=== PATIENT | female | born 1945 | race Caucasian/White ===

== ENCOUNTER 2020-04-21 10:38 | Outpatient (REF) | payer MEDICARE, SELFPAY ==
[2020-04-21 11:01] LABS: Hematocrit 31.8 % (37-47); Hemoglobin 9.8 g/dl (12.0-16.0); Mean Corpuscular HGB Conc 30.8 g/dl (31.0-35.0); Mean Corpuscular Hemoglobin 30.7 pg (27.0-33.0); Mean Corpuscular Volume 99.7 fL (80-98); Mean Platelet Volume 12.9 fL (9.4-12.3); Platelet Count 144 X10*3/uL (160-400); Red Blood Count 3.19 X10*6/uL (4.20-5.50); Red Cell Distribution Width 17.2 % (11.0-16.0); White Blood Count 6.5 X10*3/uL (4.8-10.8)
[2020-04-21 11:42] LABS: Atypical Lymph Absolute Manual 0.1 x10*3/uL; Atypical Lymphs Percent Manual 1 % (0-6); Band Neutrophils Percent 14 % (3-5); Lymphocytes Absolute Manual 0.9 X10*3/uL (0.6-4.8); Lymphocytes Percent Manual 14 % (20-40); Monocytes Absolute Manual 0.4 X10*3/uL (0.0-1.2); Monocytes Percent Manual 6 % (2-11); Neutrophils Absolute Manual 5.1 X10*3/uL (2.2-7.9); Neutrophils Percent Manual 65 % (45-73)
[2020-04-21 11:46] LABS: Basophilic Stippling 1+; Hypochromasia 1+; RBC Morphology NOTED
[2020-04-21 11:47] LABS: Platelet Estimate SLIGHTLY DECREASED (NORMAL); Platelet Morphology Comment NORMAL
[2020-04-21 11:57] LABS: Anion Gap 11 (12-20); Blood Urea Nitrogen 20 mg/dL (9-16); Calcium 8.6 mg/dL (8.4-10.2); Carbon Dioxide 28 mmol/L (22-29); Chloride 106 mmol/L (96-108); Estimated Glomerular Filt Rate 48; Glucose Random 71 mg/dL (60-115); Potassium 3.8 mmol/l (3.3-5.1); Sodium 141 mmol/L (135-145)
== END 2020-04-21 10:39 | disposition home or self-care (01) ==
LOC: HO.HVNA 10:38
PROVIDERS: Visit Provider Internal Medicine Medical Oncology
DX: C90.00 Multiple myeloma not having achieved remission (principal)
CPT/HCPCS: 36415; 80048; 85007; 85025; 85027

== ENCOUNTER 2020-04-28 10:43 | Outpatient (REF) | payer MEDICARE, SELFPAY ==
[2020-04-28 10:58] LABS: Hematocrit 28.7 % (37-47); Hemoglobin 8.9 g/dl (12.0-16.0); Red Blood Count 2.87 X10*6/uL (4.20-5.50); Red Cell Distribution Width 16.9 % (11.0-16.0)
[2020-04-28 11:01] LABS: PLT ABN DIST 1
[2020-04-28 11:24] LABS: Band Neutrophils Percent 15 % (3-5); Lymphocytes Percent Manual 13 % (20-40); Monocytes Percent Manual 4 % (2-11); Neutrophils Percent Manual 68 % (45-73)
[2020-04-28 11:25] LABS: Macrocytosis 2+; RBC Morphology NOTED
[2020-04-28 11:26] LABS: Platelet Estimate DECREASED (NORMAL); Platelet Morphology Comment NORMAL
[2020-04-28 11:27] LABS: Lymphocytes Absolute Manual 1.1 X10*3/uL (0.6-4.8); Mean Platelet Volume 13.1 fL (9.4-12.3); Monocytes Absolute Manual 0.3 X10*3/uL (0.0-1.2); Neutrophils Absolute Manual 6.7 X10*3/uL (2.2-7.9); Platelet Count 107 X10*3/uL (160-400); White Blood Count 8.1 X10*3/uL (4.8-10.8)
[2020-04-29 08:55] LABS: Alanine Aminotransferase 8 U/L (0-31); Albumin Level 3.3 g/dL (3.5-5.0); Alkaline Phosphatase 106 U/L (39-117); Anion Gap 10 (12-20); Aspartate Amino Transferase 10 U/L (5-31); Bilirubin Total 0.2 mg/dL (0.0-1.0); Blood Urea Nitrogen 18 mg/dL (9-16); Carbon Dioxide 28 mmol/L (22-29); Chloride 105 mmol/L (96-108); Estimated Glomerular Filt Rate 53; Glucose Random 87 mg/dL (60-115); Potassium 4.1 mmol/l (3.3-5.1); Sodium 139 mmol/L (135-145); Total Protein 6.1 g/dL (6.5-8.0)
[2020-04-29 08:59] LABS: Calcium 8.1 mg/dL (8.4-10.2)
== END 2020-04-28 10:44 | disposition home or self-care (01) ==
LOC: HO.HVNA 10:43
PROVIDERS: Visit Provider Internal Medicine Medical Oncology
DX: C90.00 Multiple myeloma not having achieved remission (principal)
CPT/HCPCS: 36415; 80053; 83880; 85007; 85025; 85027

== ENCOUNTER 2020-05-05 12:28 | Outpatient (REF) | payer MEDICARE, SELFPAY ==
[2020-05-05 12:41] LABS: MANUAL DIFF FLAG NO
[2020-05-05 12:57] LABS: Basophils Percent Auto 0.4 % (0-2); Eosinophils Absolute Auto 0.3 X10*3/uL (0.0-0.4); Eosinophils Percent Auto 3.2 % (0-4); Hematocrit 29.3 % (37-47); Hemoglobin 9.2 g/dl (12.0-16.0); Imm Gran Abs Auto 0.12 X10*3/uL (0.00-0.03); Imm Gran Pct Auto 1.3 % (0.0-0.4); Lymphocytes Percent Auto 10.6 % (20-40); Mean Corpuscular HGB Conc 31.4 g/dl (31.0-35.0); Mean Corpuscular Hemoglobin 31.3 pg (27.0-33.0); Mean Corpuscular Volume 99.7 fL (80-98); Mean Platelet Volume 12.5 fL (9.4-12.3); Monocytes Absolute Auto 0.9 X10*3/uL (0.1-1.2); Neutrophils Percent Auto 74.5 % (45-73); Platelet Count 144 X10*3/uL (160-400); Red Blood Count 2.94 X10*6/uL (4.20-5.50); Red Cell Distribution Width 16.8 % (11.0-16.0); White Blood Count 9.3 X10*3/uL (4.8-10.8)
[2020-05-05 13:49] LABS: Alanine Aminotransferase 7 U/L (0-31); Albumin Level 3.7 g/dL (3.5-5.0); Alkaline Phosphatase 107 U/L (39-117); Anion Gap 13 (12-20); Aspartate Amino Transferase 10 U/L (5-31); Bilirubin Total 0.3 mg/dL (0.0-1.0); Blood Urea Nitrogen 22 mg/dL (9-16); Calcium 8.7 mg/dL (8.4-10.2); Carbon Dioxide 27 mmol/L (22-29); Chloride 105 mmol/L (96-108); Estimated Glomerular Filt Rate 43; Glucose Random 75 mg/dL (60-115); Potassium 4.1 mmol/l (3.3-5.1); Sodium 141 mmol/L (135-145); Total Protein 6.5 g/dL (6.5-8.0)
== END 2020-05-05 12:29 | disposition home or self-care (01) ==
LOC: HO.HVNA 12:28
PROVIDERS: Visit Provider Internal Medicine Medical Oncology
DX: C90.00 Multiple myeloma not having achieved remission (principal)
CPT/HCPCS: 80053; 85025

== ENCOUNTER 2020-05-12 11:43 | Outpatient (REF) | payer MEDICARE, SELFPAY ==
[2020-05-12 11:54] LABS: Hematocrit 28.7 % (37-47); Mean Corpuscular HGB Conc 31.4 g/dl (31.0-35.0); Mean Corpuscular Hemoglobin 31.7 pg (27.0-33.0); Mean Corpuscular Volume 101.1 fL (80-98); Mean Platelet Volume 11.8 fL (9.4-12.3); Platelet Count 163 X10*3/uL (160-400); Red Blood Count 2.84 X10*6/uL (4.20-5.50); Red Cell Distribution Width 16.5 % (11.0-16.0); White Blood Count 15.3 X10*3/uL (4.8-10.8)
[2020-05-12 12:11] LABS: Band Neutrophils Percent 2 % (3-5); Basophils Abs Manual 0.2 X10*3/uL (0.0-0.3); Basophils Percent Manual 1 % (0-1); Lymphocytes Absolute Manual 0.9 X10*3/uL (0.6-4.8); Lymphocytes Percent Manual 6 % (20-40); Metamyelocytes Absolute 0.3 X10*3/uL; Metamyelocytes Percent 2 %; Monocytes Absolute Manual 0.5 X10*3/uL (0.0-1.2); Monocytes Percent Manual 3 % (2-11); Neutrophils Absolute Manual 13.5 X10*3/uL (2.2-7.9); Neutrophils Percent Manual 86 % (45-73)
[2020-05-12 12:12] LABS: Hypochromasia 3+; Macrocytosis 3+; RBC Morphology NOTED
[2020-05-12 12:13] LABS: Basophilic Stippling 1+; Polychromasia 1+; Stomatocytes 2+
[2020-05-12 12:14] LABS: Microcytosis 1+; Platelet Estimate NORMAL (NORMAL); Platelet Morphology Comment NORMAL; Tear Drop Cells 1+
[2020-05-12 12:22] LABS: Alanine Aminotransferase 7 U/L (0-31); Albumin Level 3.6 g/dL (3.5-5.0); Alkaline Phosphatase 117 U/L (39-117); Anion Gap 10 (12-20); Aspartate Amino Transferase 11 U/L (5-31); Bilirubin Total 0.5 mg/dL (0.0-1.0); Blood Urea Nitrogen 17 mg/dL (9-16); Calcium 8.9 mg/dL (8.4-10.2); Carbon Dioxide 30 mmol/L (22-29); Chloride 104 mmol/L (96-108); Estimated Glomerular Filt Rate 45; Glucose Random 85 mg/dL (60-115); Potassium 4.2 mmol/l (3.3-5.1); Sodium 140 mmol/L (135-145); Total Protein 6.4 g/dL (6.5-8.0)
== END 2020-05-12 11:44 | disposition home or self-care (01) ==
LOC: HO.HVNA 11:43
PROVIDERS: Visit Provider Internal Medicine Medical Oncology
DX: C90.00 Multiple myeloma not having achieved remission (principal)
CPT/HCPCS: 36415; 80053; 85007; 85027

== ENCOUNTER 2020-05-19 11:49 | Outpatient (REF) | payer MEDICARE, SELFPAY ==
[2020-05-19 12:00] LABS: Eosinophils Absolute Auto 0.2 X10*3/uL (0.0-0.4); MANUAL DIFF FLAG SCAN; Neutrophils Absolute Auto 0.4 X10*3/uL (2.0-8.3); SCAN SMEAR FLAG 1
[2020-05-19 12:01] LABS: Basophils Percent Auto 0.6 % (0-2); Eosinophils Percent Auto 11.7 % (0-4); Hematocrit 31.2 % (37-47); Hemoglobin 9.6 g/dl (12.0-16.0); Imm Gran Abs Auto 0.01 X10*3/uL (0.00-0.03); Imm Gran Pct Auto 0.6 % (0.0-0.4); Lymphocytes Absolute Auto 0.7 X10*3/uL (1.2-4.9); Lymphocytes Percent Auto 43.8 % (20-40); Mean Corpuscular HGB Conc 30.8 g/dl (31.0-35.0); Mean Corpuscular Hemoglobin 31.1 pg (27.0-33.0); Monocytes Absolute Auto 0.3 X10*3/uL (0.1-1.2); Neutrophils Percent Auto 27.3 % (45-73); Platelet Count 101 X10*3/uL (160-400); Red Blood Count 3.09 X10*6/uL (4.20-5.50); Red Cell Distribution Width 15.9 % (11.0-16.0)
[2020-05-19 12:18] LABS: PLT ABN DIST 1
[2020-05-19 12:22] LABS: Alanine Aminotransferase 7 U/L (0-31); Albumin Level 3.7 g/dL (3.5-5.0); Alkaline Phosphatase 106 U/L (39-117); Anion Gap 11 (12-20); Aspartate Amino Transferase 12 U/L (5-31); Bilirubin Total 0.5 mg/dL (0.0-1.0); Blood Urea Nitrogen 23 mg/dL (9-16); Calcium 8.6 mg/dL (8.4-10.2); Carbon Dioxide 27 mmol/L (22-29); Chloride 106 mmol/L (96-108); Estimated Glomerular Filt Rate 43; Glucose Random 70 mg/dL (60-115); Potassium 4.3 mmol/l (3.3-5.1); Sodium 140 mmol/L (135-145); Total Protein 6.6 g/dL (6.5-8.0)
[2020-05-19 12:24] LABS: White Blood Count 1.6 X10*3/uL (4.8-10.8)
[2020-05-19 12:30] LABS: SLIDE REVIEW VERIFIED
== END 2020-05-19 11:50 | disposition home or self-care (01) ==
LOC: HO.HVNA 11:49
PROVIDERS: Visit Provider Internal Medicine Medical Oncology
DX: C90.00 Multiple myeloma not having achieved remission (principal)
CPT/HCPCS: 36415; 80053; 85025

== ENCOUNTER 2020-05-26 12:41 | Outpatient (REF) | payer MEDICARE, SELFPAY ==
[2020-05-26 12:56] LABS: Basophils Percent Auto 0.9 % (0-2); Eosinophils Absolute Auto 0.6 X10*3/uL (0.0-0.4); Eosinophils Percent Auto 12.5 % (0-4); Hematocrit 29.2 % (37-47); Hemoglobin 9.2 g/dl (12.0-16.0); Imm Gran Abs Auto 0.05 X10*3/uL (0.00-0.03); Imm Gran Pct Auto 1.1 % (0.0-0.4); Lymphocytes Absolute Auto 0.6 X10*3/uL (1.2-4.9); Lymphocytes Percent Auto 14.3 % (20-40); MANUAL DIFF FLAG SCAN; Mean Corpuscular HGB Conc 31.5 g/dl (31.0-35.0); Mean Corpuscular Hemoglobin 31.8 pg (27.0-33.0); Mean Platelet Volume 12.8 fL (9.4-12.3); Monocytes Absolute Auto 0.6 X10*3/uL (0.1-1.2); Monocytes Percent Auto 13.6 % (2-11); Neutrophils Absolute Auto 2.6 X10*3/uL (2.0-8.3); Neutrophils Percent Auto 57.6 % (45-73); Platelet Count 125 X10*3/uL (160-400); Red Blood Count 2.89 X10*6/uL (4.20-5.50); Red Cell Distribution Width 15.5 % (11.0-16.0); SCAN SMEAR FLAG 1; White Blood Count 4.5 X10*3/uL (4.8-10.8)
[2020-05-26 13:40] LABS: Alanine Aminotransferase 7 U/L (0-31); Albumin Level 3.5 g/dL (3.5-5.0); Alkaline Phosphatase 98 U/L (39-117); Anion Gap 11 (12-20); Aspartate Amino Transferase 11 U/L (5-31); Bilirubin Total 0.4 mg/dL (0.0-1.0); Blood Urea Nitrogen 14 mg/dL (9-16); Calcium 8.2 mg/dL (8.4-10.2); Carbon Dioxide 25 mmol/L (22-29); Chloride 106 mmol/L (96-108); Estimated Glomerular Filt Rate 50; Glucose Random 93 mg/dL (60-115); Potassium 3.8 mmol/l (3.3-5.1); Sodium 138 mmol/L (135-145); Total Protein 6.1 g/dL (6.5-8.0)
[2020-05-26 14:32] LABS: SLIDE REVIEW VERIFIED
[2020-05-31 19:11] LABS: Clozapine (Clozaril) 141 mcg/L; Norclozapine 108 mcg/L (25-400)
== END 2020-05-26 12:42 | disposition home or self-care (01) ==
LOC: HO.HVNA 12:41
PROVIDERS: Visit Provider Internal Medicine Medical Oncology
DX: C90.00 Multiple myeloma not having achieved remission (principal)
CPT/HCPCS: 36415; 80053; 80159; 85025

== ENCOUNTER 2020-06-02 10:49 | Outpatient (REF) | payer MEDICARE, SELFPAY ==
[2020-06-02 10:54] LABS: MANUAL DIFF FLAG NO
[2020-06-02 11:00] LABS: Basophils Percent Auto 0.6 % (0-2); Eosinophils Absolute Auto 0.5 X10*3/uL (0.0-0.4); Eosinophils Percent Auto 7.2 % (0-4); Hematocrit 29.8 % (37-47); Hemoglobin 9.2 g/dl (12.0-16.0); Imm Gran Abs Auto 0.03 X10*3/uL (0.00-0.03); Imm Gran Pct Auto 0.5 % (0.0-0.4); Lymphocytes Absolute Auto 0.9 X10*3/uL (1.2-4.9); Lymphocytes Percent Auto 13.6 % (20-40); Mean Corpuscular HGB Conc 30.9 g/dl (31.0-35.0); Mean Corpuscular Hemoglobin 31.2 pg (27.0-33.0); Monocytes Absolute Auto 0.7 X10*3/uL (0.1-1.2); Monocytes Percent Auto 9.9 % (2-11); Neutrophils Absolute Auto 4.5 X10*3/uL (2.0-8.3); Neutrophils Percent Auto 68.2 % (45-73); Platelet Count 112 X10*3/uL (160-400); Red Blood Count 2.95 X10*6/uL (4.20-5.50); Red Cell Distribution Width 14.8 % (11.0-16.0); White Blood Count 6.6 X10*3/uL (4.8-10.8)
[2020-06-02 11:59] LABS: Alanine Aminotransferase 9 U/L (0-31); Albumin Level 3.3 g/dL (3.5-5.0); Alkaline Phosphatase 108 U/L (39-117); Anion Gap 9 (12-20); Aspartate Amino Transferase 12 U/L (5-31); Bilirubin Total 0.2 mg/dL (0.0-1.0); Blood Urea Nitrogen 19 mg/dL (9-16); Calcium 8.3 mg/dL (8.4-10.2); Carbon Dioxide 29 mmol/L (22-29); Chloride 105 mmol/L (96-108); Estimated Glomerular Filt Rate 41; Glucose Random 102 mg/dL (60-115); Potassium 4.2 mmol/l (3.3-5.1); Sodium 139 mmol/L (135-145); Total Protein 6.2 g/dL (6.5-8.0)
== END 2020-06-02 10:50 | disposition home or self-care (01) ==
LOC: HO.LNP 10:49
PROVIDERS: Visit Provider Internal Medicine Medical Oncology
DX: C90.00 Multiple myeloma not having achieved remission (principal)
CPT/HCPCS: 36415; 80053; 85025

== ENCOUNTER → 2020-06-03 10:00 | Outpatient (BNV) | payer MEDICARE, SELFPAY | PROVIDERS: PCP Internal Medicine; Visit Provider Internal Medicine Medical Oncology | DX: C90.00 Multiple myeloma not having achieved remission (principal) | CPT/HCPCS: 99212; 99213; 99214 ==

== ENCOUNTER 2020-06-08 10:39 | Outpatient (REF) | payer MEDICARE, SELFPAY ==
[2020-06-08 10:45] LABS: Hematocrit 30.1 % (37-47); Hemoglobin 9.3 g/dl (12.0-16.0); Mean Corpuscular HGB Conc 30.9 g/dl (31.0-35.0); Mean Corpuscular Hemoglobin 31.4 pg (27.0-33.0); Mean Corpuscular Volume 101.7 fL (80-98); Mean Platelet Volume 12.3 fL (9.4-12.3); NRBC Pct Auto 0.1 /100WBC (0.0-0.2); Platelet Count 174 X10*3/uL (160-400); Red Blood Count 2.96 X10*6/uL (4.20-5.50); Red Cell Distribution Width 15.1 % (11.0-16.0); White Blood Count 16.6 X10*3/uL (4.8-10.8)
[2020-06-08 11:09] LABS: Band Neutrophils Percent 1 % (3-5); Eosinophils Absolute Manual 0.2 X10*3/UL (0.0-0.8); Eosinophils Percent Manual 1 % (0-4); Lymphocytes Absolute Manual 0.7 X10*3/uL (0.6-4.8); Lymphocytes Percent Manual 4 % (20-40); Monocytes Absolute Manual 0.7 X10*3/uL (0.0-1.2); Monocytes Percent Manual 4 % (2-11); Neutrophils Absolute Manual 15.1 X10*3/uL (2.2-7.9); Neutrophils Percent Manual 90 % (45-73)
[2020-06-08 11:11] LABS: RBC Morphology NOTED; Stomatocytes 1+
[2020-06-08 11:12] LABS: Schistocytes 1+; Tear Drop Cells 1+
[2020-06-08 11:13] LABS: Platelet Estimate SLIGHTLY DECREASED (NORMAL); Platelet Morphology Comment NORMAL
[2020-06-08 11:19] LABS: Alanine Aminotransferase 8 U/L (0-31); Albumin Level 3.7 g/dL (3.5-5.0); Alkaline Phosphatase 129 U/L (39-117); Anion Gap 10 (12-20); Aspartate Amino Transferase 11 U/L (5-31); Bilirubin Total < 0.2 mg/dL (0.0-1.0); Blood Urea Nitrogen 21 mg/dL (9-16); Carbon Dioxide 27 mmol/L (22-29); Chloride 107 mmol/L (96-108); Estimated Glomerular Filt Rate 42; Glucose Random 91 mg/dL (60-115); Potassium 3.9 mmol/l (3.3-5.1); Sodium 140 mmol/L (135-145); Total Protein 6.8 g/dL (6.5-8.0)
== END 2020-06-08 10:40 | disposition home or self-care (01) ==
LOC: HO.LNP 10:39
PROVIDERS: Visit Provider Internal Medicine Medical Oncology
DX: C90.00 Multiple myeloma not having achieved remission (principal)
CPT/HCPCS: 36415; 80053; 85007; 85027

== ENCOUNTER 2020-06-08 13:23 | Outpatient (REF) | payer MEDICARE, SELFPAY ==
--- NOTE | 2020-06-08 13:26 | MM_ITS ---
EXAMINATION: MM SCREENING DIGITAL BREAST TOMOSYNTHESIS, BILATERAL CLINICAL INFORMATION: Screening. Asymptomatic. The lifetime risk of breast cancer based on the Tyrer-Cuzick Model is 3%. COMPARISON: Mammography: 10/10/2018, 10/08/2017, 09/08/2016 TECHNIQUE: Digital breast tomosynthesis is performed in both the craniocaudal and mediolateral oblique views along with computer-aided detection (CAD). Synthesized 2D images are generated from the tomosynthesis. Additional right MLO view is provided. FINDINGS: There are scattered areas of fibroglandular density (ACR BI-RADS breast composition Category b). There are no significant masses, abnormal calcifications, or other abnormalities. Parenchymal pattern is similar to prior studies. Again, there is bulky benign calcification left breast upper outer quadrant and scattered bilateral benign fibronodular densities. MM/MM tomosynthesis screening BI IMPRESSION: No significant changes from prior exams. ASSESSMENT: BI-RADS 2: Benign RECOMMENDATION: Routine annual mammography screening. This patient's information was entered into a reminder system with a target due date for their next mammogram.
== END 2020-06-08 13:24 | disposition home or self-care (01) ==
LOC: HO.MAMMO 13:23
PROVIDERS: PCP Internal Medicine; Visit Provider Internal Medicine
DX: Z12.31 Encounter for screening mammogram for malignant neoplasm of breast (principal)
CPT/HCPCS: 77063; 77067

== ENCOUNTER 2020-06-16 11:29 | Outpatient (REF) | payer MEDICARE, SELFPAY ==
[2020-06-16 11:34] LABS: MANUAL DIFF FLAG NO
[2020-06-16 11:38] LABS: Basophils Percent Auto 0.2 % (0-2); Eosinophils Absolute Auto 0.1 X10*3/uL (0.0-0.4); Eosinophils Percent Auto 2.3 % (0-4); Hematocrit 31.4 % (37-47); Hemoglobin 9.8 g/dl (12.0-16.0); Imm Gran Abs Auto 0.04 X10*3/uL (0.00-0.03); Imm Gran Pct Auto 0.7 % (0.0-0.4); Lymphocytes Absolute Auto 0.8 X10*3/uL (1.2-4.9); Lymphocytes Percent Auto 12.9 % (20-40); Mean Corpuscular HGB Conc 31.2 g/dl (31.0-35.0); Mean Corpuscular Hemoglobin 31.6 pg (27.0-33.0); Mean Corpuscular Volume 101.3 fL (80-98); Monocytes Absolute Auto 0.6 X10*3/uL (0.1-1.2); Monocytes Percent Auto 10.4 % (2-11); Neutrophils Absolute Auto 4.4 X10*3/uL (2.0-8.3); Neutrophils Percent Auto 73.5 % (45-73); Red Cell Distribution Width 15.3 % (11.0-16.0)
[2020-06-16 11:39] LABS: Platelet Count 92 X10*3/uL (160-400)
[2020-06-16 12:16] LABS: Alanine Aminotransferase 7 U/L (0-31); Albumin Level 3.8 g/dL (3.5-5.0); Alkaline Phosphatase 113 U/L (39-117); Anion Gap 12 (12-20); Aspartate Amino Transferase 10 U/L (5-31); Bilirubin Total 0.4 mg/dL (0.0-1.0); Blood Urea Nitrogen 22 mg/dL (9-16); Calcium 8.4 mg/dL (8.4-10.2); Carbon Dioxide 25 mmol/L (22-29); Chloride 109 mmol/L (96-108); Estimated Glomerular Filt Rate 42; Glucose Random 83 mg/dL (60-115); Potassium 3.9 mmol/l (3.3-5.1); Sodium 142 mmol/L (135-145); Total Protein 6.7 g/dL (6.5-8.0)
== END 2020-06-16 11:30 | disposition home or self-care (01) ==
LOC: HO.LNP 11:29
PROVIDERS: Visit Provider Internal Medicine Medical Oncology
DX: C90.00 Multiple myeloma not having achieved remission (principal)
CPT/HCPCS: 36415; 80053; 85025

== ENCOUNTER 2020-06-23 10:50 | Outpatient (REF) | payer MEDICARE, SELFPAY ==
[2020-06-23 10:58] LABS: Hemoglobin 9.8 g/dl (12.0-16.0); Red Cell Distribution Width 14.6 % (11.0-16.0)
[2020-06-23 11:00] LABS: Hematocrit 30.8 % (37-47); Mean Corpuscular HGB Conc 31.8 g/dl (31.0-35.0); Mean Corpuscular Hemoglobin 31.8 pg (27.0-33.0); Mean Platelet Volume 13.4 fL (9.4-12.3); Red Blood Count 3.08 X10*6/uL (4.20-5.50); White Blood Count 7.1 X10*3/uL (4.8-10.8)
[2020-06-23 11:06] LABS: PLT ABN DIST 1; Platelet Count 66 X10*3/uL (160-400)
[2020-06-23 11:32] LABS: Band Neutrophils Percent 6 % (3-5); Basophils Abs Manual 0.1 X10*3/uL (0.0-0.3); Basophils Percent Manual 1 % (0-1); Eosinophils Absolute Manual 0.1 X10*3/UL (0.0-0.8); Eosinophils Percent Manual 2 % (0-4); Lymphocytes Absolute Manual 1.4 X10*3/uL (0.6-4.8); Lymphocytes Percent Manual 20 % (20-40); Monocytes Absolute Manual 0.2 X10*3/uL (0.0-1.2); Monocytes Percent Manual 3 % (2-11); Neutrophils Absolute Manual 5.3 X10*3/uL (2.2-7.9); Neutrophils Percent Manual 68 % (45-73)
[2020-06-23 11:33] LABS: Alanine Aminotransferase 10 U/L (0-31); Albumin Level 3.7 g/dL (3.5-5.0); Alkaline Phosphatase 123 U/L (39-117); Anion Gap 11 (12-20); Aspartate Amino Transferase 13 U/L (5-31); Bilirubin Total 0.2 mg/dL (0.0-1.0); Blood Urea Nitrogen 25 mg/dL (9-16); Calcium 8.2 mg/dL (8.4-10.2); Carbon Dioxide 25 mmol/L (22-29); Chloride 107 mmol/L (96-108); Estimated Glomerular Filt Rate 42; Glucose Random 105 mg/dL (60-115); Potassium 3.7 mmol/l (3.3-5.1); Sodium 139 mmol/L (135-145); Total Protein 6.5 g/dL (6.5-8.0)
[2020-06-23 11:34] LABS: Hypochromasia 1+; Macrocytosis 1+; Platelet Estimate DECREASED (NORMAL); Platelet Morphology Comment NORMAL; RBC Morphology NOTED
== END 2020-06-23 10:51 | disposition home or self-care (01) ==
LOC: HO.LNP 10:50
PROVIDERS: Visit Provider Internal Medicine Medical Oncology
DX: C90.00 Multiple myeloma not having achieved remission (principal)
CPT/HCPCS: 36415; 80053; 85007; 85025; 85027

== ENCOUNTER 2020-06-30 10:54 | Outpatient (REF) | payer MEDICARE, SELFPAY ==
[2020-06-30 11:09] LABS: Basophils Percent Auto 0.4 % (0-2); Eosinophils Absolute Auto 0.3 X10*3/uL (0.0-0.4); Eosinophils Percent Auto 10.9 % (0-4); Hematocrit 28.4 % (37-47); Hemoglobin 8.9 g/dl (12.0-16.0); Imm Gran Abs Auto 0.02 X10*3/uL (0.00-0.03); Imm Gran Pct Auto 0.8 % (0.0-0.4); Lymphocytes Absolute Auto 0.6 X10*3/uL (1.2-4.9); Lymphocytes Percent Auto 24.4 % (20-40); MANUAL DIFF FLAG SCAN; Mean Corpuscular HGB Conc 31.3 g/dl (31.0-35.0); Mean Corpuscular Hemoglobin 31.7 pg (27.0-33.0); Mean Corpuscular Volume 101.1 fL (80-98); Mean Platelet Volume 12.4 fL (9.4-12.3); Monocytes Absolute Auto 0.4 X10*3/uL (0.1-1.2); Monocytes Percent Auto 14.7 % (2-11); Neutrophils Absolute Auto 1.3 X10*3/uL (2.0-8.3); Neutrophils Percent Auto 48.8 % (45-73); Red Blood Count 2.81 X10*6/uL (4.20-5.50); Red Cell Distribution Width 14.4 % (11.0-16.0); SCAN SMEAR FLAG 1; White Blood Count 2.6 X10*3/uL (4.8-10.8)
[2020-06-30 11:17] LABS: Platelet Count 99 X10*3/uL (160-400)
[2020-06-30 12:05] LABS: Alanine Aminotransferase 9 U/L (0-31); Albumin Level 3.4 g/dL (3.5-5.0); Alkaline Phosphatase 98 U/L (39-117); Anion Gap 10 (12-20); Aspartate Amino Transferase 11 U/L (5-31); Bilirubin Total 0.2 mg/dL (0.0-1.0); Blood Urea Nitrogen 24 mg/dL (9-16); Calcium 7.6 mg/dL (8.4-10.2); Carbon Dioxide 27 mmol/L (22-29); Chloride 107 mmol/L (96-108); Estimated Glomerular Filt Rate 44; Glucose Random 86 mg/dL (60-115); Potassium 4.3 mmol/l (3.3-5.1); Sodium 140 mmol/L (135-145); Total Protein 6.1 g/dL (6.5-8.0)
[2020-06-30 12:06] LABS: SLIDE REVIEW VERIFIED
== END 2020-06-30 10:55 | disposition home or self-care (01) ==
LOC: HO.LNP 10:54
PROVIDERS: Visit Provider Internal Medicine Medical Oncology
DX: C90.00 Multiple myeloma not having achieved remission (principal)
CPT/HCPCS: 36415; 80053; 85025

== ENCOUNTER 2020-07-14 12:17 | Outpatient (REF) | payer MEDICARE, SELFPAY ==
[2020-07-14 12:28] LABS: Basophils Percent Auto 0.5 % (0-2); Eosinophils Absolute Auto 0.2 X10*3/uL (0.0-0.4); Eosinophils Percent Auto 4.3 % (0-4); Hematocrit 29.3 % (37-47); Hemoglobin 9.2 g/dl (12.0-16.0); Imm Gran Abs Auto 0.04 X10*3/uL (0.00-0.03); Lymphocytes Absolute Auto 0.6 X10*3/uL (1.2-4.9); Lymphocytes Percent Auto 13.5 % (20-40); MANUAL DIFF FLAG SCAN; Mean Corpuscular HGB Conc 31.4 g/dl (31.0-35.0); Mean Corpuscular Hemoglobin 31.3 pg (27.0-33.0); Mean Corpuscular Volume 99.7 fL (80-98); Monocytes Absolute Auto 0.5 X10*3/uL (0.1-1.2); Monocytes Percent Auto 12.1 % (2-11); Neutrophils Absolute Auto 2.8 X10*3/uL (2.0-8.3); Neutrophils Percent Auto 68.6 % (45-73); Platelet Count 111 X10*3/uL (160-400); Red Blood Count 2.94 X10*6/uL (4.20-5.50); Red Cell Distribution Width 14.8 % (11.0-16.0); SCAN SMEAR FLAG 1; White Blood Count 4.1 X10*3/uL (4.8-10.8)
[2020-07-14 12:47] LABS: SLIDE REVIEW VERIFIED
[2020-07-14 13:10] LABS: Alanine Aminotransferase 8 U/L (0-31); Albumin Level 3.5 g/dL (3.5-5.0); Alkaline Phosphatase 92 U/L (39-117); Anion Gap 12 (12-20); Aspartate Amino Transferase 13 U/L (5-31); Bilirubin Total 0.2 mg/dL (0.0-1.0); Blood Urea Nitrogen 21 mg/dL (9-16); Calcium 8.3 mg/dL (8.4-10.2); Carbon Dioxide 26 mmol/L (22-29); Chloride 106 mmol/L (96-108); Estimated Glomerular Filt Rate 40; Glucose Random 84 mg/dL (60-115); Potassium 4.7 mmol/l (3.3-5.1); Sodium 139 mmol/L (135-145); Total Protein 6.3 g/dL (6.5-8.0)
== END 2020-07-14 12:18 | disposition home or self-care (01) ==
LOC: HO.LNP 12:17
PROVIDERS: Visit Provider Internal Medicine Medical Oncology
DX: C90.00 Multiple myeloma not having achieved remission (principal)
CPT/HCPCS: 36415; 80053; 85025

== ENCOUNTER 2020-07-21 10:28 | Outpatient (REF) | payer MEDICARE, SELFPAY ==
[2020-07-21 10:49] LABS: Hemoglobin 9.1 g/dl (12.0-16.0)
[2020-07-21 10:51] LABS: Hematocrit 29.2 % (37-47); Mean Corpuscular HGB Conc 31.2 g/dl (31.0-35.0); Mean Corpuscular Volume 99.3 fL (80-98); Mean Platelet Volume 13.9 fL (9.4-12.3); Red Blood Count 2.94 X10*6/uL (4.20-5.50); Red Cell Distribution Width 14.7 % (11.0-16.0); White Blood Count 4.5 X10*3/uL (4.8-10.8)
[2020-07-21 10:59] LABS: PLT ABN DIST 1; Platelet Count 77 X10*3/uL (160-400)
[2020-07-21 11:17] LABS: Alanine Aminotransferase 7 U/L (0-31); Albumin Level 3.7 g/dL (3.5-5.0); Alkaline Phosphatase 92 U/L (39-117); Anion Gap 17 (12-20); Aspartate Amino Transferase 10 U/L (5-31); Bilirubin Total 0.3 mg/dL (0.0-1.0); Blood Urea Nitrogen 19 mg/dL (9-16); Calcium 8.3 mg/dL (8.4-10.2); Carbon Dioxide 20 mmol/L (22-29); Chloride 110 mmol/L (96-108); Estimated Glomerular Filt Rate 38; Glucose Random 89 mg/dL (60-115); Potassium 4.1 mmol/l (3.3-5.1); Sodium 143 mmol/L (135-145); Total Protein 6.4 g/dL (6.5-8.0)
[2020-07-21 11:37] LABS: Blast Percent 1 %; Eosinophils Absolute Manual 0.6 X10*3/UL (0.0-0.8); Eosinophils Percent Manual 13 % (0-4); Lymphocytes Absolute Manual 0.7 X10*3/uL (0.6-4.8); Lymphocytes Percent Manual 15 % (20-40); Metamyelocytes Percent 1 %; Monocytes Absolute Manual 0.4 X10*3/uL (0.0-1.2); Monocytes Percent Manual 8 % (2-11); Myelocytes Percent 1 %; Neutrophils Percent Manual 61 % (45-73)
[2020-07-21 11:38] LABS: Band Neutrophils Percent 0 % (3-5); Neutrophils Absolute Manual 2.7 X10*3/uL (2.2-7.9)
[2020-07-21 11:43] LABS: Macrocytosis 1+; Platelet Estimate DECREASED (NORMAL); Platelet Morphology Comment NORMAL; RBC Morphology NOTED
== END 2020-07-21 10:29 | disposition home or self-care (01) ==
LOC: HO.LNP 10:28
PROVIDERS: Visit Provider Internal Medicine Medical Oncology
DX: C90.00 Multiple myeloma not having achieved remission (principal)
CPT/HCPCS: 80053; 85007; 85027

== ENCOUNTER 2020-07-28 10:36 | Outpatient (REF) | payer MEDICARE, SELFPAY ==
[2020-07-28 10:59] LABS: MANUAL DIFF FLAG SCAN; Mean Corpuscular HGB Conc 31.7 g/dl (31.0-35.0); Monocytes Percent Auto 11.7 % (2-11); SCAN SMEAR FLAG 1
[2020-07-28 11:01] LABS: Basophils Percent Auto 0.2 % (0-2); Eosinophils Absolute Auto 0.3 X10*3/uL (0.0-0.4); Eosinophils Percent Auto 6.1 % (0-4); Hematocrit 30.3 % (37-47); Hemoglobin 9.6 g/dl (12.0-16.0); Imm Gran Abs Auto 0.04 X10*3/uL (0.00-0.03); Lymphocytes Absolute Auto 0.8 X10*3/uL (1.2-4.9); Lymphocytes Percent Auto 18.9 % (20-40); Mean Corpuscular Volume 97.7 fL (80-98); Mean Platelet Volume 12.5 fL (9.4-12.3); Monocytes Absolute Auto 0.5 X10*3/uL (0.1-1.2); Neutrophils Absolute Auto 2.6 X10*3/uL (2.0-8.3); Neutrophils Percent Auto 62.1 % (45-73); Platelet Count 101 X10*3/uL (160-400); White Blood Count 4.1 X10*3/uL (4.8-10.8)
[2020-07-28 11:04] LABS: PLT ABN DIST 1
[2020-07-28 11:59] LABS: Alanine Aminotransferase 6 U/L (0-31); Albumin Level 3.7 g/dL (3.5-5.0); Alkaline Phosphatase 95 U/L (39-117); Anion Gap 13 (12-20); Aspartate Amino Transferase 12 U/L (5-31); Bilirubin Total 0.2 mg/dL (0.0-1.0); Blood Urea Nitrogen 19 mg/dL (9-16); Calcium 8.6 mg/dL (8.4-10.2); Carbon Dioxide 26 mmol/L (22-29); Chloride 105 mmol/L (96-108); Estimated Glomerular Filt Rate 38; Glucose Random 93 mg/dL (60-115); Potassium 4.2 mmol/l (3.3-5.1); Sodium 140 mmol/L (135-145); Total Protein 6.5 g/dL (6.5-8.0)
== END 2020-07-28 10:37 | disposition home or self-care (01) ==
LOC: HO.LNP 10:36
PROVIDERS: Visit Provider Internal Medicine Medical Oncology
DX: C90.00 Multiple myeloma not having achieved remission (principal)
CPT/HCPCS: 80053; 85025

== ENCOUNTER 2020-08-04 14:10 | Outpatient (REF) | payer MEDICARE, SELFPAY ==
[2020-08-04 14:14] LABS: MANUAL DIFF FLAG NO
[2020-08-04 14:21] LABS: Basophils Absolute Auto 0.1 X10*3/uL (0.0-0.2); Basophils Percent Auto 1.8 % (0-2); Eosinophils Absolute Auto 0.2 X10*3/uL (0.0-0.4); Eosinophils Percent Auto 5.3 % (0-4); Hematocrit 31.4 % (37-47); Hemoglobin 9.8 g/dl (12.0-16.0); Imm Gran Abs Auto 0.01 X10*3/uL (0.00-0.03); Imm Gran Pct Auto 0.3 % (0.0-0.4); Lymphocytes Absolute Auto 0.8 X10*3/uL (1.2-4.9); Lymphocytes Percent Auto 23.7 % (20-40); Mean Corpuscular HGB Conc 31.2 g/dl (31.0-35.0); Mean Corpuscular Hemoglobin 30.4 pg (27.0-33.0); Mean Corpuscular Volume 97.5 fL (80-98); Mean Platelet Volume 11.8 fL (9.4-12.3); Monocytes Absolute Auto 0.6 X10*3/uL (0.1-1.2); Monocytes Percent Auto 17.5 % (2-11); Neutrophils Absolute Auto 1.7 X10*3/uL (2.0-8.3); Neutrophils Percent Auto 51.4 % (45-73); Platelet Count 219 X10*3/uL (160-400); Red Blood Count 3.22 X10*6/uL (4.20-5.50); Red Cell Distribution Width 15.4 % (11.0-16.0); White Blood Count 3.4 X10*3/uL (4.8-10.8)
[2020-08-04 15:12] LABS: Alanine Aminotransferase < 6 U/L (0-31); Albumin Level 3.7 g/dL (3.5-5.0); Alkaline Phosphatase 95 U/L (39-117); Anion Gap 11 (12-20); Aspartate Amino Transferase 10 U/L (5-31); Bilirubin Total 0.2 mg/dL (0.0-1.0); Blood Urea Nitrogen 18 mg/dL (9-16); Calcium 8.8 mg/dL (8.4-10.2); Carbon Dioxide 25 mmol/L (22-29); Chloride 109 mmol/L (96-108); Estimated Glomerular Filt Rate 39; Glucose Random 93 mg/dL (60-115); Potassium 4.2 mmol/l (3.3-5.1); Sodium 141 mmol/L (135-145); Total Protein 6.3 g/dL (6.5-8.0)
== END 2020-08-04 14:11 | disposition home or self-care (01) ==
LOC: HO.LNP 14:10
PROVIDERS: Visit Provider Internal Medicine Medical Oncology
DX: C90.00 Multiple myeloma not having achieved remission (principal)
CPT/HCPCS: 80053; 85025

== ENCOUNTER 2020-08-25 12:58 | Outpatient (REF) | payer MEDICARE, SELFPAY ==
[2020-08-25 13:01] LABS: MANUAL DIFF FLAG NO
[2020-08-25 13:15] LABS: Basophils Percent Auto 0.5 % (0-2); Eosinophils Absolute Auto 0.4 X10*3/uL (0.0-0.4); Eosinophils Percent Auto 9.8 % (0-4); Hematocrit 34.3 % (37-47); Hemoglobin 10.7 g/dl (12.0-16.0); Imm Gran Abs Auto 0.01 X10*3/uL (0.00-0.03); Imm Gran Pct Auto 0.2 % (0.0-0.4); Lymphocytes Absolute Auto 0.7 X10*3/uL (1.2-4.9); Lymphocytes Percent Auto 18.2 % (20-40); Mean Corpuscular HGB Conc 31.2 g/dl (31.0-35.0); Mean Corpuscular Hemoglobin 30.1 pg (27.0-33.0); Mean Corpuscular Volume 96.3 fL (80-98); Mean Platelet Volume 12.8 fL (9.4-12.3); Monocytes Absolute Auto 0.4 X10*3/uL (0.1-1.2); Monocytes Percent Auto 8.8 % (2-11); Neutrophils Absolute Auto 2.5 X10*3/uL (2.0-8.3); Neutrophils Percent Auto 62.5 % (45-73); Platelet Count 129 X10*3/uL (160-400); Red Blood Count 3.56 X10*6/uL (4.20-5.50); Red Cell Distribution Width 14.5 % (11.0-16.0); White Blood Count 4.1 X10*3/uL (4.8-10.8)
[2020-08-25 13:45] LABS: Alanine Aminotransferase 7 U/L (0-31); Albumin Level 3.9 g/dL (3.5-5.0); Alkaline Phosphatase 110 U/L (39-117); Anion Gap 13 (12-20); Aspartate Amino Transferase 10 U/L (5-31); Bilirubin Total 0.3 mg/dL (0.0-1.0); Blood Urea Nitrogen 14 mg/dL (9-16); Calcium 8.6 mg/dL (8.4-10.2); Carbon Dioxide 27 mmol/L (22-29); Chloride 107 mmol/L (96-108); Estimated Glomerular Filt Rate 35; Glucose Random 109 mg/dL (60-115); Potassium 3.3 mmol/L (3.3-5.1); Sodium 144 mmol/L (135-145); Total Protein 6.8 g/dL (6.5-8.0)
== END 2020-08-25 12:59 | disposition home or self-care (01) ==
LOC: HO.LNP 12:58
PROVIDERS: Visit Provider Internal Medicine Medical Oncology
DX: C90.00 Multiple myeloma not having achieved remission (principal)
CPT/HCPCS: 80053; 85025

== ENCOUNTER 2020-09-22 13:44 | Outpatient (REF) | payer OTHER, SELFPAY ==
[2020-09-22 13:54] LABS: MANUAL DIFF FLAG NO
[2020-09-22 14:02] LABS: Basophils Absolute Auto 0.1 X10*3/uL (0.0-0.2); Basophils Percent Auto 1.9 % (0-2); Eosinophils Absolute Auto 0.3 X10*3/uL (0.0-0.4); Eosinophils Percent Auto 8.7 % (0-4); Hematocrit 32.9 % (37-47); Hemoglobin 10.1 g/dl (12.0-16.0); Imm Gran Abs Auto 0.02 X10*3/uL (0.00-0.03); Imm Gran Pct Auto 0.6 % (0.0-0.4); Lymphocytes Absolute Auto 0.7 X10*3/uL (1.2-4.9); Lymphocytes Percent Auto 22.8 % (20-40); Mean Corpuscular HGB Conc 30.7 g/dl (31.0-35.0); Mean Corpuscular Hemoglobin 29.5 pg (27.0-33.0); Mean Corpuscular Volume 96.2 fL (80-98); Mean Platelet Volume 12.7 fL (9.4-12.3); Monocytes Absolute Auto 0.4 X10*3/uL (0.1-1.2); Monocytes Percent Auto 12.9 % (2-11); Neutrophils Absolute Auto 1.7 X10*3/uL (2.0-8.3); Neutrophils Percent Auto 53.1 % (45-73); Platelet Count 142 X10*3/uL (160-400); Red Blood Count 3.42 X10*6/uL (4.20-5.50); Red Cell Distribution Width 15.3 % (11.0-16.0); White Blood Count 3.1 X10*3/uL (4.8-10.8)
[2020-09-22 14:45] LABS: Alanine Aminotransferase 8 U/L (0-31); Albumin Level 3.6 g/dL (3.5-5.0); Alkaline Phosphatase 98 U/L (39-117); Anion Gap 11 (12-20); Aspartate Amino Transferase 9 U/L (5-31); Bilirubin Total 0.3 mg/dL (0.0-1.0); Blood Urea Nitrogen 19 mg/dL (9-16); Calcium 8.4 mg/dL (8.4-10.2); Carbon Dioxide 27 mmol/L (22-29); Chloride 110 mmol/L (96-108); Estimated Glomerular Filt Rate 46; Glucose Random 103 mg/dL (60-115); Potassium 3.6 mmol/L (3.3-5.1); Sodium 144 mmol/L (135-145); Total Protein 6.3 g/dL (6.5-8.0)
== END 2020-09-22 13:45 | disposition home or self-care (01) ==
LOC: HO.LNP 13:44
PROVIDERS: Visit Provider Internal Medicine Medical Oncology
DX: C90.00 Multiple myeloma not having achieved remission (principal)
CPT/HCPCS: 80053; 85025

== ENCOUNTER 2020-10-20 11:56 | Outpatient (REF) | payer OTHER, SELFPAY ==
[2020-10-20 11:59] LABS: MANUAL DIFF FLAG NO
[2020-10-20 12:09] LABS: Basophils Absolute Auto 0.1 X10*3/uL (0.0-0.2); Basophils Percent Auto 1.2 % (0-2); Eosinophils Absolute Auto 0.3 X10*3/uL (0.0-0.4); Hematocrit 33.5 % (37-47); Hemoglobin 10.2 g/dl (12.0-16.0); Imm Gran Abs Auto 0.03 X10*3/uL (0.00-0.03); Imm Gran Pct Auto 0.7 % (0.0-0.4); Lymphocytes Absolute Auto 0.7 X10*3/uL (1.2-4.9); Lymphocytes Percent Auto 16.4 % (20-40); Mean Corpuscular HGB Conc 30.4 g/dl (31.0-35.0); Mean Corpuscular Hemoglobin 29.7 pg (27.0-33.0); Mean Corpuscular Volume 97.4 fL (80-98); Mean Platelet Volume 11.6 fL (9.4-12.3); Monocytes Absolute Auto 0.3 X10*3/uL (0.1-1.2); Monocytes Percent Auto 5.8 % (2-11); Neutrophils Percent Auto 69.9 % (45-73); Platelet Count 166 X10*3/uL (160-400); Red Blood Count 3.44 X10*6/uL (4.20-5.50); Red Cell Distribution Width 16.9 % (11.0-16.0); White Blood Count 4.3 X10*3/uL (4.8-10.8)
[2020-10-20 18:26] LABS: Alanine Aminotransferase 6 U/L (0-31); Albumin Level 3.7 g/dL (3.5-5.0); Alkaline Phosphatase 111 U/L (39-117); Anion Gap 11 (12-20); Aspartate Amino Transferase 11 U/L (5-31); Bilirubin Total 0.2 mg/dL (0.0-1.0); Blood Urea Nitrogen 15 mg/dL (9-16); Calcium 7.6 mg/dL (8.4-10.2); Carbon Dioxide 25 mmol/L (22-29); Chloride 109 mmol/L (96-108); Estimated Glomerular Filt Rate 39; Glucose Random 122 mg/dL (60-115); Potassium 4.6 mmol/L (3.3-5.1); Sodium 140 mmol/L (135-145); Total Protein 6.5 g/dL (6.5-8.0)
== END 2020-10-20 11:57 | disposition home or self-care (01) ==
LOC: HO.LNP 11:56
PROVIDERS: Visit Provider Internal Medicine Medical Oncology
DX: C90.00 Multiple myeloma not having achieved remission (principal)
CPT/HCPCS: 80053; 85025

== ENCOUNTER 2020-11-17 13:19 | Outpatient (REF) | payer OTHER, SELFPAY ==
[2020-11-17 13:27] LABS: MANUAL DIFF FLAG NO
[2020-11-17 13:31] LABS: Basophils Absolute Auto 0.1 X10*3/uL (0.0-0.2); Basophils Percent Auto 1.4 % (0-2); Eosinophils Absolute Auto 0.2 X10*3/uL (0.0-0.4); Eosinophils Percent Auto 5.2 % (0-4); Hematocrit 34.2 % (37-47); Hemoglobin 10.6 g/dl (12.0-16.0); Imm Gran Abs Auto 0.02 X10*3/uL (0.00-0.03); Imm Gran Pct Auto 0.6 % (0.0-0.4); Lymphocytes Absolute Auto 0.8 X10*3/uL (1.2-4.9); Lymphocytes Percent Auto 21.7 % (20-40); Mean Corpuscular Hemoglobin 29.3 pg (27.0-33.0); Mean Corpuscular Volume 94.5 fL (80-98); Mean Platelet Volume 12.1 fL (9.4-12.3); Monocytes Absolute Auto 0.2 X10*3/uL (0.1-1.2); Monocytes Percent Auto 5.8 % (2-11); Neutrophils Absolute Auto 2.3 X10*3/uL (2.0-8.3); Neutrophils Percent Auto 65.3 % (45-73); Platelet Count 186 X10*3/uL (160-400); Red Blood Count 3.62 X10*6/uL (4.20-5.50); Red Cell Distribution Width 16.6 % (11.0-16.0); White Blood Count 3.5 X10*3/uL (4.8-10.8)
[2020-11-17 14:02] LABS: Alanine Aminotransferase 6 U/L (0-31); Albumin Level 3.7 g/dL (3.5-5.0); Alkaline Phosphatase 98 U/L (39-117); Anion Gap 10 (12-20); Aspartate Amino Transferase 9 U/L (5-31); Bilirubin Total 0.4 mg/dL (0.0-1.0); Blood Urea Nitrogen 10 mg/dL (9-16); Calcium 8.4 mg/dL (8.4-10.2); Carbon Dioxide 26 mmol/L (22-29); Chloride 110 mmol/L (96-108); Estimated Glomerular Filt Rate 51; Glucose Random 81 mg/dL (60-115); Sodium 142 mmol/L (135-145); Total Protein 6.5 g/dL (6.5-8.0)
== END 2020-11-17 13:20 | disposition home or self-care (01) ==
LOC: HO.LNP 13:19
PROVIDERS: Visit Provider Internal Medicine Medical Oncology
DX: C90.00 Multiple myeloma not having achieved remission (principal)
CPT/HCPCS: 80053; 85025

== ENCOUNTER 2020-12-22 11:49 | Outpatient (REF) | payer OTHER, SELFPAY ==
[2020-12-22 12:04] LABS: Basophils Absolute Auto 0.1 X10*3/uL (0.0-0.2); Basophils Percent Auto 2.6 % (0-2); Eosinophils Absolute Auto 0.3 X10*3/uL (0.0-0.4); Eosinophils Percent Auto 13.1 % (0-4); Hematocrit 33.1 % (37-47); Hemoglobin 10.3 g/dl (12.0-16.0); Imm Gran Abs Auto 0.01 X10*3/uL (0.00-0.03); Imm Gran Pct Auto 0.5 % (0.0-0.4); Lymphocytes Absolute Auto 0.6 X10*3/uL (1.2-4.9); Lymphocytes Percent Auto 29.8 % (20-40); MANUAL DIFF FLAG SCAN; Mean Corpuscular HGB Conc 31.1 g/dl (31.0-35.0); Mean Corpuscular Hemoglobin 29.3 pg (27.0-33.0); Mean Platelet Volume 12.1 fL (9.4-12.3); Monocytes Absolute Auto 0.3 X10*3/uL (0.1-1.2); Monocytes Percent Auto 13.6 % (2-11); Neutrophils Absolute Auto 0.8 X10*3/uL (2.0-8.3); Neutrophils Percent Auto 40.4 % (45-73); Platelet Count 130 X10*3/uL (160-400); Red Blood Count 3.52 X10*6/uL (4.20-5.50); Red Cell Distribution Width 16.7 % (11.0-16.0); SCAN SMEAR FLAG 1
[2020-12-22 12:05] LABS: White Blood Count 1.9 X10*3/uL (4.8-10.8)
[2020-12-22 12:29] LABS: SLIDE REVIEW VERIFIED
[2020-12-22 12:40] LABS: Alanine Aminotransferase < 6 U/L (0-31); Albumin Level 3.5 g/dL (3.5-5.0); Alkaline Phosphatase 83 U/L (39-117); Anion Gap 10 (12-20); Aspartate Amino Transferase 10 U/L (5-31); Bilirubin Total 0.2 mg/dL (0.0-1.0); Blood Urea Nitrogen 12 mg/dL (9-16); Calcium 7.9 mg/dL (8.4-10.2); Carbon Dioxide 23 mmol/L (22-29); Chloride 113 mmol/L (96-108); Estimated Glomerular Filt Rate 51; Glucose Random 92 mg/dL (60-115); Potassium 3.7 mmol/L (3.3-5.1); Sodium 142 mmol/L (135-145); Total Protein 6.1 g/dL (6.5-8.0)
[2020-12-24 15:07] LABS: IgA 211 mg/dL (70-320); IgG 1191 mg/dL (600-1540); IgM 17 mg/dL (50-300)
[2021-01-04 15:27] LABS: Kappa, Serum 250 mg/dL (176-443); Lambda, Serum 192 mg/dL (91-240)
== END 2020-12-22 11:50 | disposition home or self-care (01) ==
LOC: HO.HVNA 11:49
PROVIDERS: Visit Provider Internal Medicine Medical Oncology
DX: C90.00 Multiple myeloma not having achieved remission (principal)
CPT/HCPCS: 36415; 80053; 82784; 83883; 85025; 86334

== ENCOUNTER 2020-12-31 07:56 | Outpatient (REF) | payer MEDICARE, SELFPAY ==
[2020-12-31 12:41] LABS: MANUAL DIFF FLAG NO
[2020-12-31 13:00] LABS: Basophils Absolute Auto 0.1 X10*3/uL (0.0-0.2); Basophils Percent Auto 1.6 % (0-2); Eosinophils Absolute Auto 0.2 X10*3/uL (0.0-0.4); Eosinophils Percent Auto 4.8 % (0-4); Hematocrit 33.6 % (37-47); Hemoglobin 10.5 g/dl (12.0-16.0); Imm Gran Abs Auto 0.01 X10*3/uL (0.00-0.03); Imm Gran Pct Auto 0.3 % (0.0-0.4); Lymphocytes Absolute Auto 0.8 X10*3/uL (1.2-4.9); Lymphocytes Percent Auto 26.8 % (20-40); Mean Corpuscular HGB Conc 31.3 g/dl (31.0-35.0); Mean Corpuscular Hemoglobin 29.2 pg (27.0-33.0); Mean Corpuscular Volume 93.3 fL (80-98); Mean Platelet Volume 11.6 fL (9.4-12.3); Monocytes Absolute Auto 0.4 X10*3/uL (0.1-1.2); Monocytes Percent Auto 13.9 % (2-11); Neutrophils Absolute Auto 1.6 X10*3/uL (2.0-8.3); Neutrophils Percent Auto 52.6 % (45-73); Platelet Count 174 X10*3/uL (160-400); Red Cell Distribution Width 16.3 % (11.0-16.0); White Blood Count 3.1 X10*3/uL (4.8-10.8)
[2020-12-31 13:22] LABS: Alanine Aminotransferase 9 U/L (0-31); Albumin Level 3.7 g/dL (3.5-5.0); Alkaline Phosphatase 90 U/L (39-117); Anion Gap 13 (12-20); Aspartate Amino Transferase 9 U/L (5-31); Bilirubin Total 0.2 mg/dL (0.0-1.0); Blood Urea Nitrogen 11 mg/dL (9-16); Carbon Dioxide 21 mmol/L (22-29); Chloride 112 mmol/L (96-108); Estimated Glomerular Filt Rate 41; Glucose Random 142 mg/dL (60-115); Potassium 3.8 mmol/L (3.3-5.1); Sodium 142 mmol/L (135-145); Total Protein 6.5 g/dL (6.5-8.0)
== END 2020-12-31 07:57 | disposition home or self-care (01) ==
LOC: HO.LHD 07:56
PROVIDERS: Visit Provider Internal Medicine Medical Oncology
DX: C90.00 Multiple myeloma not having achieved remission (principal)
CPT/HCPCS: 36415; 80053; 85025

== ENCOUNTER 2021-01-19 12:42 | Outpatient (REF) | payer OTHER, SELFPAY ==
[2021-01-19 12:52] LABS: Basophils Percent Auto 1.2 % (0-2); Eosinophils Absolute Auto 0.3 X10*3/uL (0.0-0.4); Eosinophils Percent Auto 11.1 % (0-4); Hematocrit 34.1 % (37-47); Hemoglobin 10.4 g/dl (12.0-16.0); Imm Gran Abs Auto 0.01 X10*3/uL (0.00-0.03); Imm Gran Pct Auto 0.4 % (0.0-0.4); Lymphocytes Absolute Auto 0.8 X10*3/uL (1.2-4.9); Lymphocytes Percent Auto 33.7 % (20-40); MANUAL DIFF FLAG SCAN; Mean Corpuscular HGB Conc 30.5 g/dl (31.0-35.0); Mean Corpuscular Hemoglobin 28.7 pg (27.0-33.0); Mean Corpuscular Volume 94.2 fL (80-98); Mean Platelet Volume 12.4 fL (9.4-12.3); Monocytes Absolute Auto 0.3 X10*3/uL (0.1-1.2); Monocytes Percent Auto 11.5 % (2-11); Neutrophils Percent Auto 42.1 % (45-73); Platelet Count 122 X10*3/uL (160-400); Red Blood Count 3.62 X10*6/uL (4.20-5.50); Red Cell Distribution Width 16.5 % (11.0-16.0); SCAN SMEAR FLAG 1
[2021-01-19 13:02] LABS: White Blood Count 2.4 X10*3/uL (4.8-10.8)
[2021-01-19 13:28] LABS: Alanine Aminotransferase 7 U/L (0-31); Albumin Level 3.5 g/dL (3.5-5.0); Alkaline Phosphatase 88 U/L (39-117); Anion Gap 12 (12-20); Aspartate Amino Transferase 11 U/L (5-31); Bilirubin Total 0.6 mg/dL (0.0-1.0); Blood Urea Nitrogen 8 mg/dL (9-16); Calcium 7.9 mg/dL (8.4-10.2); Chloride 114 mmol/L (96-108); Estimated Glomerular Filt Rate 46; Glucose Random 110 mg/dL (60-115); Potassium 3.8 mmol/L (3.3-5.1); Sodium 142 mmol/L (135-145); Total Protein 6.3 g/dL (6.5-8.0)
[2021-01-19 13:30] LABS: Carbon Dioxide 20 mmol/L (22-29)
[2021-01-19 14:14] LABS: SLIDE REVIEW VERIFIED
== END 2021-01-19 12:43 | disposition home or self-care (01) ==
LOC: HO.HVNA 12:42
PROVIDERS: Visit Provider Internal Medicine Medical Oncology
DX: C90.00 Multiple myeloma not having achieved remission (principal)
CPT/HCPCS: 36415; 80053; 85025

== ENCOUNTER 2021-01-28 | Outpatient (REF) | payer MEDICARE, SELFPAY ==
[2021-01-28 10:04] LABS: Basophils Percent Auto 1.1 % (0-2); Eosinophils Absolute Auto 0.2 X10*3/uL (0.0-0.4); Eosinophils Percent Auto 13.6 % (0-4); Hematocrit 32.5 % (37-47); Hemoglobin 9.9 g/dl (12.0-16.0); Imm Gran Abs Auto 0.01 X10*3/uL (0.00-0.03); Imm Gran Pct Auto 0.6 % (0.0-0.4); Lymphocytes Absolute Auto 0.7 X10*3/uL (1.2-4.9); Lymphocytes Percent Auto 39.8 % (20-40); MANUAL DIFF FLAG SCAN; Mean Corpuscular HGB Conc 30.5 g/dl (31.0-35.0); Mean Corpuscular Hemoglobin 28.6 pg (27.0-33.0); Mean Corpuscular Volume 93.9 fL (80-98); Mean Platelet Volume 11.5 fL (9.4-12.3); Monocytes Absolute Auto 0.2 X10*3/uL (0.1-1.2); Monocytes Percent Auto 10.8 % (2-11); Neutrophils Absolute Auto 0.6 X10*3/uL (2.0-8.3); Neutrophils Percent Auto 34.1 % (45-73); Platelet Count 117 X10*3/uL (160-400); Red Blood Count 3.46 X10*6/uL (4.20-5.50); Red Cell Distribution Width 16.6 % (11.0-16.0); SCAN SMEAR FLAG 1; White Blood Count 1.8 X10*3/uL (4.8-10.8)
[2021-01-28 10:27] LABS: SLIDE REVIEW VERIFIED
[2021-01-28 10:52] LABS: Alanine Aminotransferase 6 U/L (0-31); Albumin Level 3.2 g/dL (3.5-5.0); Alkaline Phosphatase 81 U/L (39-117); Anion Gap 9 (12-20); Aspartate Amino Transferase 10 U/L (5-31); Bilirubin Total 0.4 mg/dL (0.0-1.0); Blood Urea Nitrogen 9 mg/dL (9-16); Calcium 7.7 mg/dL (8.4-10.2); Carbon Dioxide 26 mmol/L (22-29); Chloride 112 mmol/L (96-108); Estimated Glomerular Filt Rate 47; Glucose Random 120 mg/dL (60-115); Potassium 3.7 mmol/L (3.3-5.1); Sodium 143 mmol/L (135-145); Total Protein 5.8 g/dL (6.5-8.0)
== END 2021-01-28 00:01 | disposition home or self-care (01) ==
LOC: HO.LHD
PROVIDERS: Visit Provider Internal Medicine Medical Oncology
DX: C90.00 Multiple myeloma not having achieved remission (principal)
CPT/HCPCS: 36415; 80053; 85025

== ENCOUNTER 2021-02-01 11:06 | Outpatient (REF) | payer OTHER, SELFPAY ==
--- NOTE | ~2021-02-01 | XR_ITS ---
EXAMINATION: XR SKELETAL SURVEY CLINICAL INFORMATION: Multiple myeloma COMPARISON: None TECHNIQUE: Whole body bone survey was performed from skull to both upper and lower extremities. FINDINGS: SKULL: The calvarium is intact. No lytic or sclerotic process seen. The paranasal sinuses are well-aerated. CERVICAL SPINE: There is maintained cervical lordosis. There is mild ventral spondylosis C4-C5 and C5-C6 disc levels. No fracture, lytic process seen. THORACIC SPINE: There is normal thoracic kyphosis. The vertebral heights, alignment and disc heights are normal. There is mild spondylosis. No acute fracture or lytic process seen. LUMBAR SPINE: There is maintained lumbar lordosis. No acute fracture, dislocation or lytic process seen. The disc heights are normal. CHEST: The lungs are well-expanded and clear of acute pneumonic process. There is minimal atelectatic changes at the right lung base. Heart size and pulmonary vascularity is normal. No gross bony abnormality seen. RIGHT UPPER EXTREMITY: Visualized 1 view of right humerus, right radius and ulna appear unremarkable. No lucency or sclerotic process seen. LEFT UPPER EXTREMITY: There is no fracture, bony abnormality or lucency seen involving the upper extremity. RIGHT LOWER EXTREMITY: The entire humerus, tibia and fibula are unremarkable. No lucency, fracture or sclerosis seen. LEFT LOWER EXTREMITY: There is a small lucency seen in the left femoral neck. Mild hypertrophic bony changes seen along lesser trochanter. The joint space is maintained normal. Small enthesophyte is seen along the greater trochanter. The soft tissues are normal. There is no abnormality seen involving the left tibia and fibula. XR/XR bone survey IMPRESSION: 1. Small lucency seen in the left femoral neck with sclerotic margins, question intraosseous cyst. Cannot exclude metastatic disease. 2. The rest of the whole body bone survey is unremarkable.
== END 2021-02-01 11:07 | disposition home or self-care (01) ==
LOC: HO.XRAY 11:06
PROVIDERS: PCP Internal Medicine; Visit Provider Internal Medicine Medical Oncology
DX: C90.00 Multiple myeloma not having achieved remission (principal)
CPT/HCPCS: 77075

== ENCOUNTER 2021-02-18 07:44 | Outpatient (REF) | payer MEDICARE, SELFPAY ==
[2021-02-18 09:50] LABS: MANUAL DIFF FLAG NO
[2021-02-18 09:52] LABS: Basophils Absolute Auto 0.1 X10*3/uL (0.0-0.2); Basophils Percent Auto 2.6 % (0-2); Eosinophils Absolute Auto 0.2 X10*3/uL (0.0-0.4); Hematocrit 30.5 % (37-47); Hemoglobin 9.6 g/dl (12.0-16.0); Imm Gran Abs Auto 0.01 X10*3/uL (0.00-0.03); Imm Gran Pct Auto 0.3 % (0.0-0.4); Lymphocytes Absolute Auto 1.1 X10*3/uL (1.2-4.9); Lymphocytes Percent Auto 35.8 % (20-40); Mean Corpuscular HGB Conc 31.5 g/dl (31.0-35.0); Mean Corpuscular Hemoglobin 29.4 pg (27.0-33.0); Mean Corpuscular Volume 93.3 fL (80-98); Mean Platelet Volume 11.4 fL (9.4-12.3); Monocytes Absolute Auto 0.4 X10*3/uL (0.1-1.2); Monocytes Percent Auto 14.2 % (2-11); Neutrophils Absolute Auto 1.3 X10*3/uL (2.0-8.3); Neutrophils Percent Auto 42.1 % (45-73); Platelet Count 181 X10*3/uL (160-400); Red Blood Count 3.27 X10*6/uL (4.20-5.50); Red Cell Distribution Width 17.7 % (11.0-16.0)
[2021-02-18 10:20] LABS: Alanine Aminotransferase 10 U/L (0-31); Albumin Level 3.4 g/dL (3.5-5.0); Alkaline Phosphatase 69 U/L (39-117); Anion Gap 11 (12-20); Aspartate Amino Transferase 12 U/L (5-31); Bilirubin Total 0.3 mg/dL (0.0-1.0); Blood Urea Nitrogen 14 mg/dL (9-16); Calcium 9.1 mg/dL (8.4-10.2); Carbon Dioxide 26 mmol/L (22-29); Chloride 109 mmol/L (96-108); Estimated Glomerular Filt Rate 42; Glucose Random 99 mg/dL (60-115); Potassium 4.4 mmol/L (3.3-5.1); Sodium 142 mmol/L (135-145); Total Protein 5.9 g/dL (6.5-8.0)
== END 2021-02-18 07:45 | disposition home or self-care (01) ==
LOC: HO.LHD 07:44
PROVIDERS: Visit Provider Internal Medicine Medical Oncology
DX: C90.00 Multiple myeloma not having achieved remission (principal); N18.2 Chronic kidney disease, stage 2 (mild); D63.1 Anemia in chronic kidney disease
CPT/HCPCS: 36415; 80053; 85025

== ENCOUNTER 2021-02-25 07:45 | Outpatient (REF) | payer MEDICARE, SELFPAY ==
[2021-02-25 09:56] LABS: MANUAL DIFF FLAG NO
[2021-02-25 09:59] LABS: Basophils Absolute Auto 0.1 X10*3/uL (0.0-0.2); Basophils Percent Auto 1.3 % (0-2); Eosinophils Absolute Auto 0.2 X10*3/uL (0.0-0.4); Eosinophils Percent Auto 5.8 % (0-4); Hematocrit 33.8 % (37-47); Hemoglobin 10.5 g/dl (12.0-16.0); Imm Gran Abs Auto 0.01 X10*3/uL (0.00-0.03); Imm Gran Pct Auto 0.3 % (0.0-0.4); Lymphocytes Absolute Auto 1.2 X10*3/uL (1.2-4.9); Lymphocytes Percent Auto 30.7 % (20-40); Mean Corpuscular HGB Conc 31.1 g/dl (31.0-35.0); Mean Corpuscular Volume 93.4 fL (80-98); Mean Platelet Volume 11.8 fL (9.4-12.3); Monocytes Absolute Auto 0.5 X10*3/uL (0.1-1.2); Monocytes Percent Auto 13.2 % (2-11); Neutrophils Absolute Auto 1.9 X10*3/uL (2.0-8.3); Neutrophils Percent Auto 48.7 % (45-73); Platelet Count 225 X10*3/uL (160-400); Red Blood Count 3.62 X10*6/uL (4.20-5.50); Red Cell Distribution Width 18.2 % (11.0-16.0); White Blood Count 3.9 X10*3/uL (4.8-10.8)
[2021-02-25 10:20] LABS: Alanine Aminotransferase 9 U/L (0-31); Albumin Level 3.9 g/dL (3.5-5.0); Alkaline Phosphatase 69 U/L (39-117); Anion Gap 15 (12-20); Aspartate Amino Transferase 15 U/L (5-31); Bilirubin Total 0.3 mg/dL (0.0-1.0); Blood Urea Nitrogen 14 mg/dL (9-16); Calcium 8.5 mg/dL (8.4-10.2); Carbon Dioxide 20 mmol/L (22-29); Chloride 113 mmol/L (96-108); Estimated Glomerular Filt Rate 42; Glucose Random 86 mg/dL (60-115); Potassium 3.8 mmol/L (3.3-5.1); Sodium 144 mmol/L (135-145); Total Protein 6.6 g/dL (6.5-8.0)
== END 2021-02-25 07:46 | disposition home or self-care (01) ==
LOC: HO.LHD 07:45
PROVIDERS: Visit Provider Internal Medicine Medical Oncology
DX: C90.00 Multiple myeloma not having achieved remission (principal)
CPT/HCPCS: 36415; 80053; 85025

== ENCOUNTER 2021-03-04 07:09 | Outpatient (REF) | payer MEDICARE, SELFPAY ==
[2021-03-04 10:14] LABS: MANUAL DIFF FLAG NO
[2021-03-04 10:17] LABS: Basophils Percent Auto 0.6 % (0-2); Eosinophils Absolute Auto 0.2 X10*3/uL (0.0-0.4); Eosinophils Percent Auto 3.2 % (0-4); Hemoglobin 11.7 g/dl (12.0-16.0); Imm Gran Abs Auto 0.02 X10*3/uL (0.00-0.03); Imm Gran Pct Auto 0.4 % (0.0-0.4); Lymphocytes Absolute Auto 1.3 X10*3/uL (1.2-4.9); Mean Corpuscular HGB Conc 31.6 g/dl (31.0-35.0); Mean Corpuscular Hemoglobin 29.2 pg (27.0-33.0); Mean Corpuscular Volume 92.3 fL (80-98); Mean Platelet Volume 11.5 fL (9.4-12.3); Monocytes Absolute Auto 0.6 X10*3/uL (0.1-1.2); Monocytes Percent Auto 10.9 % (2-11); Neutrophils Absolute Auto 3.2 X10*3/uL (2.0-8.3); Neutrophils Percent Auto 59.9 % (45-73); Platelet Count 215 X10*3/uL (160-400); Red Blood Count 4.01 X10*6/uL (4.20-5.50); Red Cell Distribution Width 17.7 % (11.0-16.0); White Blood Count 5.3 X10*3/uL (4.8-10.8)
[2021-03-04 11:09] LABS: Alanine Aminotransferase 9 U/L (0-31); Albumin Level 4.3 g/dL (3.5-5.0); Alkaline Phosphatase 81 U/L (39-117); Anion Gap 15 (12-20); Aspartate Amino Transferase 15 U/L (5-31); Bilirubin Total 0.3 mg/dL (0.0-1.0); Blood Urea Nitrogen 22 mg/dL (9-16); Carbon Dioxide 22 mmol/L (22-29); Chloride 106 mmol/L (96-108); Estimated Glomerular Filt Rate 46; Glucose Random 103 mg/dL (60-115); Potassium 3.8 mmol/L (3.3-5.1); Sodium 139 mmol/L (135-145); Total Protein 7.4 g/dL (6.5-8.0)
[2021-03-04 11:15] LABS: Calcium 11.1 mg/dL (8.4-10.2)
== END 2021-03-04 07:10 | disposition home or self-care (01) ==
LOC: HO.LHD 07:09
PROVIDERS: Visit Provider Internal Medicine Medical Oncology
DX: C90.00 Multiple myeloma not having achieved remission (principal)
CPT/HCPCS: 36415; 80053; 85025

== ENCOUNTER 2021-03-11 06:57 | Outpatient (REF) | payer MEDICARE, SELFPAY ==
[2021-03-11 10:18] LABS: MANUAL DIFF FLAG NO
[2021-03-11 10:23] LABS: Basophils Percent Auto 0.3 % (0-2); Eosinophils Absolute Auto 0.3 X10*3/uL (0.0-0.4); Eosinophils Percent Auto 3.9 % (0-4); Hematocrit 34.1 % (37-47); Hemoglobin 10.6 g/dl (12.0-16.0); Imm Gran Abs Auto 0.03 X10*3/uL (0.00-0.03); Imm Gran Pct Auto 0.4 % (0.0-0.4); Lymphocytes Absolute Auto 1.3 X10*3/uL (1.2-4.9); Lymphocytes Percent Auto 18.6 % (20-40); Mean Corpuscular HGB Conc 31.1 g/dl (31.0-35.0); Mean Corpuscular Hemoglobin 28.4 pg (27.0-33.0); Mean Corpuscular Volume 91.4 fL (80-98); Mean Platelet Volume 12.6 fL (9.4-12.3); Monocytes Absolute Auto 0.8 X10*3/uL (0.1-1.2); Monocytes Percent Auto 11.5 % (2-11); Neutrophils Absolute Auto 4.5 X10*3/uL (2.0-8.3); Neutrophils Percent Auto 65.3 % (45-73); Platelet Count 192 X10*3/uL (160-400); Red Blood Count 3.73 X10*6/uL (4.20-5.50); Red Cell Distribution Width 17.3 % (11.0-16.0); White Blood Count 6.8 X10*3/uL (4.8-10.8)
[2021-03-11 10:53] LABS: Alanine Aminotransferase 13 U/L (0-31); Albumin Level 4.1 g/dL (3.5-5.0); Alkaline Phosphatase 85 U/L (39-117); Anion Gap 17 (12-20); Aspartate Amino Transferase 17 U/L (5-31); Bilirubin Total 0.3 mg/dL (0.0-1.0); Blood Urea Nitrogen 41 mg/dL (9-16); Calcium 9.7 mg/dL (8.4-10.2); Carbon Dioxide 22 mmol/L (22-29); Chloride 102 mmol/L (96-108); Estimated Glomerular Filt Rate 41; Glucose Random 86 mg/dL (60-115); Potassium 4.2 mmol/L (3.3-5.1); Sodium 137 mmol/L (135-145); Total Protein 7.1 g/dL (6.5-8.0)
== END 2021-03-11 06:58 | disposition home or self-care (01) ==
LOC: HO.LHD 06:57
PROVIDERS: Internal Medicine; Visit Provider Internal Medicine Medical Oncology
DX: C90.00 Multiple myeloma not having achieved remission (principal)
CPT/HCPCS: 36415; 80053; 85025

== ENCOUNTER 2021-03-18 05:00 | Outpatient (REF) | payer MEDICARE, SELFPAY ==
[2021-03-18 11:19] LABS: MANUAL DIFF FLAG NO
[2021-03-18 11:24] LABS: Basophils Percent Auto 0.2 % (0-2); Eosinophils Absolute Auto 0.2 X10*3/uL (0.0-0.4); Eosinophils Percent Auto 3.3 % (0-4); Hematocrit 31.9 % (37-47); Imm Gran Abs Auto 0.02 X10*3/uL (0.00-0.03); Imm Gran Pct Auto 0.4 % (0.0-0.4); Lymphocytes Absolute Auto 1.2 X10*3/uL (1.2-4.9); Lymphocytes Percent Auto 22.9 % (20-40); Mean Corpuscular HGB Conc 31.3 g/dl (31.0-35.0); Mean Corpuscular Hemoglobin 28.9 pg (27.0-33.0); Mean Corpuscular Volume 92.2 fL (80-98); Mean Platelet Volume 11.1 fL (9.4-12.3); Monocytes Absolute Auto 0.5 X10*3/uL (0.1-1.2); Neutrophils Absolute Auto 3.3 X10*3/uL (2.0-8.3); Neutrophils Percent Auto 63.2 % (45-73); Platelet Count 190 X10*3/uL (160-400); Red Blood Count 3.46 X10*6/uL (4.20-5.50); Red Cell Distribution Width 17.6 % (11.0-16.0); White Blood Count 5.2 X10*3/uL (4.8-10.8)
[2021-03-18 12:03] LABS: Alanine Aminotransferase 13 U/L (0-31); Albumin Level 3.6 g/dL (3.5-5.0); Alkaline Phosphatase 78 U/L (39-117); Anion Gap 16 (12-20); Aspartate Amino Transferase 24 U/L (5-31); Bilirubin Total 0.3 mg/dL (0.0-1.0); Blood Urea Nitrogen 17 mg/dL (9-16); Calcium 8.8 mg/dL (8.4-10.2); Carbon Dioxide 22 mmol/L (22-29); Chloride 109 mmol/L (96-108); Estimated Glomerular Filt Rate 35; Glucose Random 93 mg/dL (60-115); Potassium 3.5 mmol/L (3.3-5.1); Sodium 143 mmol/L (135-145); Total Protein 6.1 g/dL (6.5-8.0)
== END 2021-03-18 05:01 ==
LOC: HO.LHD 05:00
PROVIDERS: Absent Provider Clinical Nurse Specialist Psychiatric/Mental Health, Adult; Visit Provider Internal Medicine Medical Oncology
DX: C90.00 Multiple myeloma not having achieved remission (principal)
CPT/HCPCS: 36415; 80053; 85025

== ENCOUNTER 2021-03-25 05:00 | Outpatient (REF) | payer MEDICARE, SELFPAY ==
[2021-03-25 10:43] LABS: MANUAL DIFF FLAG NO
[2021-03-25 10:49] LABS: Basophils Percent Auto 0.3 % (0-2); Eosinophils Absolute Auto 0.1 X10*3/uL (0.0-0.4); Eosinophils Percent Auto 3.4 % (0-4); Hematocrit 30.4 % (37-47); Hemoglobin 9.7 g/dl (12.0-16.0); Lymphocytes Percent Auto 27.6 % (20-40); Mean Corpuscular HGB Conc 31.9 g/dl (31.0-35.0); Mean Corpuscular Hemoglobin 29.4 pg (27.0-33.0); Mean Corpuscular Volume 92.1 fL (80-98); Mean Platelet Volume 10.9 fL (9.4-12.3); Monocytes Absolute Auto 0.4 X10*3/uL (0.1-1.2); Monocytes Percent Auto 12.1 % (2-11); Neutrophils Percent Auto 56.6 % (45-73); Platelet Count 193 X10*3/uL (160-400); Red Cell Distribution Width 17.7 % (11.0-16.0); White Blood Count 3.5 X10*3/uL (4.8-10.8)
[2021-03-25 11:55] LABS: Alanine Aminotransferase 11 U/L (0-31); Albumin Level 3.5 g/dL (3.5-5.0); Alkaline Phosphatase 75 U/L (39-117); Anion Gap 14 (12-20); Aspartate Amino Transferase 17 U/L (5-31); Bilirubin Total 0.3 mg/dL (0.0-1.0); Blood Urea Nitrogen 19 mg/dL (9-16); Calcium 9.7 mg/dL (8.4-10.2); Carbon Dioxide 25 mmol/L (22-29); Chloride 109 mmol/L (96-108); Estimated Glomerular Filt Rate 38; Glucose Random 91 mg/dL (60-115); Potassium 3.8 mmol/L (3.3-5.1); Sodium 144 mmol/L (135-145)
== END 2021-03-25 05:01 ==
LOC: HO.LHD 05:00
PROVIDERS: Absent Provider Clinical Nurse Specialist Psychiatric/Mental Health, Adult; Visit Provider Internal Medicine Medical Oncology
DX: C90.00 Multiple myeloma not having achieved remission (principal)
CPT/HCPCS: 36415; 80053; 85025

== ENCOUNTER 2021-04-01 11:34 | Outpatient (REF) | payer MEDICARE, SELFPAY ==
[2021-04-01 10:09] LABS: MANUAL DIFF FLAG NO
[2021-04-01 10:19] LABS: Basophils Percent Auto 0.3 % (0-2); Eosinophils Absolute Auto 0.1 X10*3/uL (0.0-0.4); Hematocrit 30.7 % (37-47); Hemoglobin 9.5 g/dl (12.0-16.0); Imm Gran Abs Auto 0.02 X10*3/uL (0.00-0.03); Imm Gran Pct Auto 0.6 % (0.0-0.4); Lymphocytes Absolute Auto 0.8 X10*3/uL (1.2-4.9); Lymphocytes Percent Auto 23.8 % (20-40); Mean Corpuscular HGB Conc 30.9 g/dl (31.0-35.0); Mean Corpuscular Hemoglobin 28.9 pg (27.0-33.0); Mean Corpuscular Volume 93.3 fL (80-98); Mean Platelet Volume 12.1 fL (9.4-12.3); Monocytes Absolute Auto 0.2 X10*3/uL (0.1-1.2); Monocytes Percent Auto 6.5 % (2-11); Neutrophils Absolute Auto 2.3 X10*3/uL (2.0-8.3); Neutrophils Percent Auto 64.8 % (45-73); Platelet Count 198 X10*3/uL (160-400); Red Blood Count 3.29 X10*6/uL (4.20-5.50); Red Cell Distribution Width 17.4 % (11.0-16.0); White Blood Count 3.5 X10*3/uL (4.8-10.8)
[2021-04-01 10:36] LABS: Alanine Aminotransferase 10 U/L (0-31); Albumin Level 3.6 g/dL (3.5-5.0); Alkaline Phosphatase 68 U/L (39-117); Anion Gap 14 (12-20); Aspartate Amino Transferase 14 U/L (5-31); Bilirubin Total 0.4 mg/dL (0.0-1.0); Blood Urea Nitrogen 26 mg/dL (9-16); Calcium 9.2 mg/dL (8.4-10.2); Carbon Dioxide 22 mmol/L (22-29); Chloride 111 mmol/L (96-108); Estimated Glomerular Filt Rate 44; Glucose Random 70 mg/dL (60-115); Potassium 3.7 mmol/L (3.3-5.1); Sodium 143 mmol/L (135-145); Total Protein 5.9 g/dL (6.5-8.0)
== END 2021-04-01 11:35 | disposition home or self-care (01) ==
LOC: HO.LHD 11:34
PROVIDERS: Visit Provider Internal Medicine Medical Oncology
DX: C90.00 Multiple myeloma not having achieved remission (principal)
CPT/HCPCS: 36415; 80053; 85025

== ENCOUNTER 2021-04-08 10:49 | Outpatient (REF) | payer MEDICARE, SELFPAY ==
[2021-04-08 09:41] LABS: MANUAL DIFF FLAG NO
[2021-04-08 09:45] LABS: Basophils Percent Auto 0.4 % (0-2); Eosinophils Absolute Auto 0.2 X10*3/uL (0.0-0.4); Eosinophils Percent Auto 4.2 % (0-4); Hematocrit 33.9 % (37-47); Hemoglobin 10.7 g/dl (12.0-16.0); Imm Gran Abs Auto 0.04 X10*3/uL (0.00-0.03); Imm Gran Pct Auto 0.8 % (0.0-0.4); Lymphocytes Absolute Auto 1.1 X10*3/uL (1.2-4.9); Lymphocytes Percent Auto 20.8 % (20-40); Mean Corpuscular HGB Conc 31.6 g/dl (31.0-35.0); Mean Corpuscular Hemoglobin 30.1 pg (27.0-33.0); Mean Corpuscular Volume 95.2 fL (80-98); Mean Platelet Volume 12.7 fL (9.4-12.3); Monocytes Absolute Auto 0.4 X10*3/uL (0.1-1.2); Monocytes Percent Auto 7.8 % (2-11); Neutrophils Absolute Auto 3.5 X10*3/uL (2.0-8.3); Platelet Count 176 X10*3/uL (160-400); Red Blood Count 3.56 X10*6/uL (4.20-5.50); Red Cell Distribution Width 17.6 % (11.0-16.0); White Blood Count 5.2 X10*3/uL (4.8-10.8)
[2021-04-08 10:28] LABS: Alanine Aminotransferase 10 U/L (0-31); Albumin Level 3.3 g/dL (3.5-5.0); Alkaline Phosphatase 79 U/L (39-117); Anion Gap 14 (12-20); Aspartate Amino Transferase 16 U/L (5-31); Bilirubin Total 0.4 mg/dL (0.0-1.0); Blood Urea Nitrogen 13 mg/dL (9-16); Calcium 8.1 mg/dL (8.4-10.2); Carbon Dioxide 22 mmol/L (22-29); Chloride 111 mmol/L (96-108); Estimated Glomerular Filt Rate 37; Glucose Random 110 mg/dL (60-115); Potassium 4.1 mmol/L (3.3-5.1); Sodium 143 mmol/L (135-145); Total Protein 5.8 g/dL (6.5-8.0)
== END 2021-04-08 10:50 | disposition home or self-care (01) ==
LOC: HO.LHD 10:49
PROVIDERS: Absent Provider Clinical Nurse Specialist Psychiatric/Mental Health, Adult; Visit Provider Internal Medicine Medical Oncology
DX: C90.00 Multiple myeloma not having achieved remission (principal)
CPT/HCPCS: 36415; 80053; 85025

== ENCOUNTER 2021-04-15 10:43 | Outpatient (REF) | payer MEDICARE, SELFPAY ==
[2021-04-15 09:41] LABS: Basophils Percent Auto 0.5 % (0-2); Eosinophils Absolute Auto 0.1 X10*3/uL (0.0-0.4); Eosinophils Percent Auto 6.3 % (0-4); Hematocrit 34.6 % (37-47); Hemoglobin 10.9 g/dl (12.0-16.0); Imm Gran Abs Auto 0.01 X10*3/uL (0.00-0.03); Imm Gran Pct Auto 0.5 % (0.0-0.4); Lymphocytes Absolute Auto 0.8 X10*3/uL (1.2-4.9); MANUAL DIFF FLAG SCAN; Mean Corpuscular HGB Conc 31.5 g/dl (31.0-35.0); Mean Corpuscular Hemoglobin 29.8 pg (27.0-33.0); Mean Corpuscular Volume 94.5 fL (80-98); Mean Platelet Volume 11.8 fL (9.4-12.3); Monocytes Absolute Auto 0.4 X10*3/uL (0.1-1.2); Monocytes Percent Auto 15.8 % (2-11); Neutrophils Absolute Auto 0.9 X10*3/uL (2.0-8.3); Neutrophils Percent Auto 40.9 % (45-73); Platelet Count 165 X10*3/uL (160-400); Red Blood Count 3.66 X10*6/uL (4.20-5.50); Red Cell Distribution Width 17.6 % (11.0-16.0); SCAN SMEAR FLAG 1
[2021-04-15 09:47] LABS: White Blood Count 2.2 X10*3/uL (4.8-10.8)
[2021-04-15 09:59] LABS: Alanine Aminotransferase 9 U/L (0-31); Albumin Level 3.4 g/dL (3.5-5.0); Alkaline Phosphatase 86 U/L (39-117); Anion Gap 14 (12-20); Aspartate Amino Transferase 15 U/L (5-31); Bilirubin Total 0.6 mg/dL (0.0-1.0); Blood Urea Nitrogen 10 mg/dL (9-16); Calcium 7.4 mg/dL (8.4-10.2); Carbon Dioxide 21 mmol/L (22-29); Chloride 113 mmol/L (96-108); Estimated Glomerular Filt Rate 49; Glucose Random 109 mg/dL (60-115); Potassium 3.9 mmol/L (3.3-5.1); Sodium 144 mmol/L (135-145)
[2021-04-15 10:13] LABS: SLIDE REVIEW VERIFIED
== END 2021-04-15 10:44 | disposition home or self-care (01) ==
LOC: HO.LHD 10:43
PROVIDERS: Absent Provider Clinical Nurse Specialist Psychiatric/Mental Health, Adult; Visit Provider Internal Medicine Medical Oncology
DX: C90.00 Multiple myeloma not having achieved remission (principal)
CPT/HCPCS: 36415; 80053; 85025

== ENCOUNTER 2021-04-22 10:51 | Outpatient (REF) | payer MEDICARE, SELFPAY ==
[2021-04-22 10:16] LABS: Hemoglobin 10.3 g/dl (12.0-16.0); Mean Corpuscular HGB Conc 31.2 g/dl (31.0-35.0); Mean Corpuscular Hemoglobin 29.5 pg (27.0-33.0); Mean Corpuscular Volume 94.6 fL (80-98); Mean Platelet Volume 12.6 fL (9.4-12.3); Platelet Count 221 X10*3/uL (160-400); Red Blood Count 3.49 X10*6/uL (4.20-5.50); Red Cell Distribution Width 18.2 % (11.0-16.0); White Blood Count 5.7 X10*3/uL (4.8-10.8)
[2021-04-22 10:43] LABS: Alanine Aminotransferase 6 U/L (0-31); Albumin Level 3.2 g/dL (3.5-5.0); Alkaline Phosphatase 94 U/L (39-117); Anion Gap 14 (12-20); Aspartate Amino Transferase 13 U/L (5-31); Bilirubin Total 0.4 mg/dL (0.0-1.0); Blood Urea Nitrogen 12 mg/dL (9-16); Calcium 7.7 mg/dL (8.4-10.2); Carbon Dioxide 21 mmol/L (22-29); Chloride 113 mmol/L (96-108); Estimated Glomerular Filt Rate 45; Glucose Random 93 mg/dL (60-115); Potassium 3.6 mmol/L (3.3-5.1); Sodium 144 mmol/L (135-145); Total Protein 5.7 g/dL (6.5-8.0)
[2021-04-22 10:52] LABS: Atypical Lymph Absolute Manual 0.1 x10*3/uL; Atypical Lymphs Percent Manual 2 % (0-6); Band Neutrophils Percent 13 % (3-5); Basophils Abs Manual 0.1 X10*3/uL (0.0-0.3); Basophils Percent Manual 2 % (0-1); Eosinophils Absolute Manual 0.2 X10*3/UL (0.0-0.8); Eosinophils Percent Manual 4 % (0-4); Lymphocytes Absolute Manual 0.8 X10*3/uL (0.6-4.8); Lymphocytes Percent Manual 14 % (20-40); Metamyelocytes Absolute 0.2 X10*3/uL; Metamyelocytes Percent 3 %; Monocytes Absolute Manual 0.2 X10*3/uL (0.0-1.2); Monocytes Percent Manual 4 % (2-11); Neutrophils Percent Manual 58 % (45-73)
[2021-04-22 10:54] LABS: Macrocytosis 1+ (5-14) /OIF; RBC Morphology NORMAL
[2021-04-22 10:55] LABS: Large Platelet PRESENT; Platelet Estimate NORMAL (NORMAL); Platelet Morphology Comment NOTED
== END 2021-04-22 10:52 | disposition home or self-care (01) ==
LOC: HO.LHD 10:51
PROVIDERS: Absent Provider Clinical Nurse Specialist Psychiatric/Mental Health, Adult; Visit Provider Internal Medicine Medical Oncology
DX: C90.00 Multiple myeloma not having achieved remission (principal)
CPT/HCPCS: 36415; 80053; 85007; 85027

== ENCOUNTER 2021-04-29 12:12 | Outpatient (REF) | payer MEDICARE, SELFPAY ==
[2021-04-29 09:35] LABS: MANUAL DIFF FLAG NO
[2021-04-29 09:36] LABS: Basophils Absolute Auto 0.1 X10*3/uL (0.0-0.2); Basophils Percent Auto 2.2 % (0-2); Eosinophils Absolute Auto 0.1 X10*3/uL (0.0-0.4); Eosinophils Percent Auto 2.9 % (0-4); Hematocrit 30.8 % (37-47); Hemoglobin 9.7 g/dl (12.0-16.0); Imm Gran Abs Auto 0.04 X10*3/uL (0.00-0.03); Lymphocytes Absolute Auto 1.2 X10*3/uL (1.2-4.9); Lymphocytes Percent Auto 28.5 % (20-40); Mean Corpuscular HGB Conc 31.5 g/dl (31.0-35.0); Mean Corpuscular Volume 95.4 fL (80-98); Mean Platelet Volume 12.3 fL (9.4-12.3); Monocytes Absolute Auto 0.4 X10*3/uL (0.1-1.2); Monocytes Percent Auto 9.6 % (2-11); Neutrophils Absolute Auto 2.3 X10*3/uL (2.0-8.3); Neutrophils Percent Auto 55.8 % (45-73); Platelet Count 213 X10*3/uL (160-400); Red Blood Count 3.23 X10*6/uL (4.20-5.50); Red Cell Distribution Width 17.2 % (11.0-16.0); White Blood Count 4.2 X10*3/uL (4.8-10.8)
[2021-04-29 10:18] LABS: Alanine Aminotransferase 7 U/L (0-31); Alkaline Phosphatase 103 U/L (39-117); Anion Gap 14 (12-20); Aspartate Amino Transferase 11 U/L (5-31); Bilirubin Total 0.6 mg/dL (0.0-1.0); Blood Urea Nitrogen 11 mg/dL (9-16); Calcium 8.3 mg/dL (8.4-10.2); Carbon Dioxide 24 mmol/L (22-29); Chloride 110 mmol/L (96-108); Estimated Glomerular Filt Rate 49; Glucose Random 97 mg/dL (60-115); Sodium 144 mmol/L (135-145); Total Protein 5.6 g/dL (6.5-8.0)
== END 2021-04-29 12:13 | disposition home or self-care (01) ==
LOC: HO.LHD 12:12
PROVIDERS: Absent Provider Clinical Nurse Specialist Psychiatric/Mental Health, Adult; Visit Provider Internal Medicine Medical Oncology
DX: C90.00 Multiple myeloma not having achieved remission (principal)
CPT/HCPCS: 36415; 80053; 85025

== ENCOUNTER 2021-05-04 12:47 | Emergency (ER) | payer MEDICARE, SELFPAY ==
[2021-05-04] VITALS (7 sets, daily range): BP systolic 84–107; BP diastolic 52–72; PULSE 75–107; RESP 14–18; TEMP 36.4; O2SAT 97–100; BMI 28.2
--- NOTE | ~2021-05-04 | XR_ITS ---
EXAMINATION: XR CHEST CLINICAL INFORMATION: Weakness COMPARISON: CXR from 11/13/2019 and 02/01/2021 TECHNIQUE: Frontal view of the chest was obtained. FINDINGS: Lungs are adequately expanded. There is linear opacity of atelectasis or focal scarring at the right lung base. No pulmonary mass or consolidation. Cardiac silhouette is normal in size. No evidence of pulmonary edema or pleural effusion. The hilar contours are normal. The visualized bones are intact. XR/XR chest 1V IMPRESSION: No acute pulmonary disease compared to 02/01/2021.
--- NOTE | ~2021-05-04 | CT_ITS ---
EXAMINATION: CT HEAD WITHOUT CONTRAST CLINICAL INFORMATION: Altered mental status. COMPARISON: Head CT from 05/30/2019 TECHNIQUE: Contiguous axial imaging was performed from the skull base to vertex without intravenous administration of contrast. This CT examination was performed using dose optimization techniques as appropriate, variously including the following: *Automated exposure control *Adjustment of mA and/or kV according to patient size (this includes techniques or standardized protocols for targeted exams where dose is matched to indication/reason for exam; i.e. extremities or head) *Use of iterative reconstruction technique DLP: 1105 mGy-cm FINDINGS: No acute findings compared to 05/30/2019. There appear to be chronic mild small vessel ischemic changes of the supratentorial white matter. The merritt-white matter differentiation is maintained. No evidence of an acute major vascular territory infarction. No intracranial hemorrhage, extra-axial fluid collection, focal mass effect or midline shift. Mild volume loss of brain parenchyma with commensurate prominence of ventricles and sulci. No hydrocephalus. The brainstem and cerebellum are unremarkable. Cerebellar tonsils are normal position. There has been bilateral intraocular lens implantation. The calvarium is intact. The mastoid air cells and middle ear cavities are well aerated. Mild secretions are noted along the posterior wall the right sphenoid sinus. No air-fluid levels within paranasal sinuses. The temporomandibular joints are unremarkable. CT/CT head/brain wo con IMPRESSION: No evidence of infarction or hemorrhage. No acute intracranial pathology compared to the prior head CT from 05/30/2019.
--- NOTE | ~2021-05-04 | CT_ITS ---
EXAMINATION: CT ABDOMEN AND PELVIS WITH CONTRAST CLINICAL INFORMATION: Weakness and poor by mouth intake COMPARISON: None TECHNIQUE: Multidetector volumetric images were obtained from the superior aspect of the liver through the pubic symphysis following administration 85 mL of Omnipaque 350 intravenous contrast. Sagittal and coronal reformatted images were obtained on the technologist's workstation. Oral contrast: No This CT examination was performed using dose optimization techniques as appropriate, variously including the following: *Automated exposure control *Adjustment of mA and/or kV according to patient size (this includes techniques or standardized protocols for targeted exams where dose is matched to indication/reason for exam; i.e. extremities or head) *Use of iterative reconstruction technique DLP: 722 mGy-cm FINDINGS: LUNG BASES: Scarring is present at the lung bases. LIVER, GALLBLADDER, AND BILIARY TREE: The liver is normal in size, shape, and attenuation. No focal hepatic lesion or biliary ductal dilatation is present. The gallbladder is unremarkable with no evidence of radiopaque gallstones, gallbladder wall thickening, or obvious pericholecystic inflammatory changes. PANCREAS: Unremarkable. SPLEEN: Unremarkable. A tiny 5 mm hypodensity is present. ADRENAL GLANDS: Unremarkable. KIDNEYS AND URETERS: The kidneys are normal in size, shape, and attenuation. No hydronephrosis, hydroureter, or calculi seen. No perinephric stranding. BLADDER: Unremarkable. GASTROINTESTINAL TRACT: The small and large bowel are unremarkable. The appendix is unremarkable. ABDOMINAL WALL: No significant hernia is appreciated. LYMPH NODES: No retroperitoneal lymphadenopathy. VASCULAR: The abdominal aorta and visualized iliofemoral vessels are unremarkable. The celiac SMA and CHUCKY are all widely patent. There is no evidence of suggest the presence of intestinal angina. Single renal arteries are present bilaterally which are patent. IVC appears normal. The hepatic veins are patent. The portal venous system is unremarkable. Central hypodensity is seen within the left femoral vein secondary to mixing of contrast. PELVIC VISCERA: Status post hysterectomy tiny bit of loculated fluid is noted just above the bladder (3:62). An abnormal solid adnexal mass is not seen. No fluid is present in the cul-de-sac. OSSEOUS STRUCTURES: Unremarkable. CT/CT abdomen pelvis w con IMPRESSION: An etiology for the patient's weakness and poor by mouth intake has not been found. No occult malignancy is seen. The mesenteric vasculature all appears normal. No evidence to suggest intestinal angina/mesenteric ischemia
--- NOTE | 2021-05-04 13:25 | ED_ITS ---
HPI - Weakness General Chief complaint: Failure to Thrive Stated complaint: Failure to thrive Time Seen by Provider: 05/04/21 13:23 Source: patient and family Mode of arrival: EMS Limitations: altered mental status History of Present Illness MD Complaint: generalized weakness (poor hygiene, not eating or drinking) Onset (ago): week(s) (4) Duration: constant Location: generalized Migration: none Severity: moderate Relieving factors: none Exacerbating factors: other (did have a med change 5 weeks ago was on MM treatment and clozaril due to WBC issues but was restarted family was told to hold it for a week or two) Context: other Associated symptoms: confusion and loss of appetite Related Data Home Medications Medication Instructions Recorded Confirmed albuterol sulfate 90 mcg/actuation 2 puff PO Q4H PRN 04/15/20 05/04/21 aerosol inhaler clozapine 100 mg tablet 200 mg PO BEDTIME 04/15/20 05/04/21 lenalidomide 15 mg capsule 15 mg PO USEASDIRECTD 04/15/20 05/04/21 (Revlimid) loperamide 2 mg capsule 2 mg PO DAILY PRN 04/15/20 05/04/21 (Anti-Diarrheal (loperamide)) lorazepam 1 mg tablet (Ativan) 1 mg PO DAILY PRN 04/15/20 05/04/21 ondansetron HCl 4 mg tablet 1 tab PO Q4H PRN 04/15/20 05/04/21 sennosides 8.6 mg tablet (senna) 2 tab PO DAILY PRN 04/15/20 05/04/21 cyclosporine 0.05 % eye drops in a 1 drp OPHTHALMIC (EYE) DAILY 05/06/20 05/04/21 dropperette (Restasis) calcium carbonate 600 mg calcium 600 mg PO BID 05/04/21 05/04/21 (1,500 mg) tablet (Calcium) filgrastim-sndz 300 mcg/0.5 mL 300 mcg SUBCUT MOTH 05/04/21 05/04/21 injection syringe (Zarxio) Previous Rx's Medication Instructions Recorded acyclovir 400 mg tablet 400 mg PO DAILY #90 tab 10/28/20 cholecalciferol (vitamin D3) 50 50 mcg PO DAILY #30 cap 11/09/20 mcg (2,000 unit) capsule omeprazole 20 mg capsule,delayed 20 mg PO DAILY #90 cap 12/03/20 release cetirizine 10 mg tablet 10 mg PO BEDTIME #30 tab 12/14/20 ferrous sulfate 324 mg (65 mg 324 mg PO DAILY #90 tab 03/22/21 iron) tablet,delayed release aspirin 81 mg tablet,delayed 81 mg PO DAILY #90 tab 03/29/21 release metoprolol tartrate 25 mg tablet 25 mg PO BID 30 Days #60 tab 03/29/21 sulfamethoxazole 800 1 tab PO DAILY #90 tab 04/22/21 mg-trimethoprim 160 mg tablet (Bactrim DS) allopurinol 100 mg tablet 100 mg PO DAILY #90 tab 04/23/21 Allergies Allergy/AdvReac Type Severity Reaction Status Date / Time No Known Allergies Allergy Verified 12/02/20 10:28 [No Known Allergies*] Review of Systems Review of Systems: Constitutional : No Weight loss, No Fever, No Chills, pos Fatigue, pos Malaise ENT/Mouth : No sore throat, No Rhinorrhea Eyes: No Eye Pain, No Swelling, No Redness Cardiovascular : No Chest Pain, No SOB, No Dyspnea on Exertion, No Orthopnea, No Edema, No Palpitations Respiratory : No Cough, No Sputum, No Wheezing Gastrointestinal : No Nausea, No Vomiting, No Diarrhea, No Constipation, No abdominal Pain, No Hematochezia, No Melena Genitourinary : No Dysuria, No Urinary Frequency, No Hematuria, Musculoskeletal : No joint pain, No Myalgias, No Joint Swelling Skin : No Skin Lesions, No rash Neuro : pos Weakness, No Numbness, No Dizziness, No Headache, pos AMS Psych : No Anxiety/Panic, No Depression Heme/Lymph: No Bruising, No Bleeding,No Lymphadenopathy Endocrine : No Polyuria, No Polydipsia All other systems reviewed and are negative PMFSH Past Medical History Attestation statement: The following information was validated with the patient. Medical History Asthma GERD (gastroesophageal reflux disease) Hyperlipidemia Hypertension Schizophrenia Surgical History History of lumpectomy History of total hysterectomy Family History Family History Father Coronary artery disease High cholesterol Diabetes mellitus CVD (cardiovascular disease) Mother Alzheimer's disease Brother History of CVA (cerebrovascular accident) Stroke Sister History of CVA (cerebrovascular accident) Stroke Son No problems noted. Sister No problems noted. Sister No problems noted. Sister No problems noted. Sister No problems noted. Sister No problems noted. Brother No problems noted. Brother No problems noted. Brother No problems noted. Brother No problems noted. Brother No problems noted. Brother No problems noted. Other Hypertension Social History Social History Household Members: None Are you a primary resident care director to a significant other at home: No Do you presently have visiting nurse or other home services: Yes (home lab draws) Alcohol intake: never Patient Tobacco Use Status: Former Tobacco user Quit Date: 2017 Cigarettes Per Day: 3 Advance Directives: No Advance Directives Date on File: 04/15/18 Physical Exam Vital Signs: Vital Signs: Last Vital Signs Temp 97.6 F 05/04/21 16:23 Pulse 75 05/04/21 16:23 Resp 16 05/04/21 16:23 BP 104/52 L 05/04/21 16:23 Pulse Ox 98 05/04/21 16:23 Body Mass Index 28.2 Appearance: Alert. smiling, family does most of talking. No acute distress. Eyes: Pupils equal, round and reactive to light. ENT: Pharynx dry MM Neck: Normal inspection. Neck supple. CVS: Normal heart rate and rhythm. Pulses normal. Respiratory: No respiratory distress. Breath sounds normal. Abdomen: Soft and non-tender. Skin: Skin warm and dry. Normal skin color. poor skin turgor. Extremities: No lower extremity edema. No calf ttp Neuro: at baseline No motor deficit. No sensory deficit. Course Course Course Narrative: hypotension due to poor PO intake, dehydration and not infection or severe sepsis trop is flat signed out pending CT scan abdomen, BP improved MDM - Weakness MDM Narrative Medical decision making narrative: 75 yo female with schizoaffective disorder, MM here with c/o FTT for almost a month - will need labs, UA, CXR, CT head for mass, full labs, she needs hydration. Dispo per results and findings. If workup negative would involve psychiatry. Lab Data Result diagrams: 05/04/21 14:01 05/04/21 14:00 Labs: Lab Results 05/04/21 05/04/21 05/04/21 Range/Units 14:00 14:00 14:00 WBC (4.8-10.8) X10*3/uL RBC (4.20-5.50) X10*6/uL Hgb (12.0-16.0) g/dl Hct (37-47) % MCV (80-98) fL MCH (27.0-33.0) pg MCHC (31.0-35.0) g/dl RDW (11.0-16.0) % Plt Count (160-400) X10*3/uL MPV (9.4-12.3) fL Immature Gran % (Auto) (0.0-0.4) % Neut % (Auto) (45-73) % Lymph % (Auto) (20-40) % Pickett % (Auto) (2-11) % Eos % (Auto) (0-4) % Baso % (Auto) (0-2) % Lymph # (Auto) (1.2-4.9) X10*3/uL Pickett # (Auto) (0.1-1.2) X10*3/uL Eos # (Auto) (0.0-0.4) X10*3/uL Baso # (Auto) (0.0-0.2) X10*3/uL Abs Immat Gran (auto) (0.00-0.03) X10*3/uL Absolute Neuts (auto) (2.0-8.3) X10*3/uL Absolute Nucleated RBC (0.0-0.012) X10*3/uL Nucleated RBC % (auto) (0.0-0.2) /100WBC Smear Tech's Comments VBG pH (7.32-7.43) VBG pCO2 mmHg VBG pO2 mmHg VBG HCO3 (22-26) mmol/L VBG O2 Saturation % VBG Base Excess mmol/L Sodium 140 (135-145) mmol/L Potassium 3.6 (3.3-5.1) mmol/L Chloride 108 (96-108) mmol/L Carbon Dioxide 20 L (22-29) mmol/L Anion Gap 16 (12-20) BUN 9 (9-16) mg/dL Creatinine 1.17 (0.5-1.4) mg/dL Estim Creat Clear Calc 36.1 Estimated GFR 45 Random Glucose 123 H (60-115) mg/dL Lactic Acid (0.5-2.0) mmol/L Calcium 8.1 L (8.4-10.2) mg/dL Magnesium 2.1 (1.6-2.6) mg/dL Total Bilirubin 0.4 (0.0-1.0) mg/dL Direct Bilirubin 0.2 (0.0-0.5) mg/dL AST 17 D (5-31) U/L ALT 9 (0-31) U/L Alkaline Phosphatase 121 H (39-117) U/L Ammonia (13-55) umol/L Total Creatine Kinase 98 (26-140) U/L Troponin I High Sens 17.9 H* (<3.5-17.0) ng/L Total Protein 5.7 L (6.5-8.0) g/dL Albumin 3.1 L (3.5-5.0) g/dL Lipase 21 (8-78) U/L TSH (0.32-4.0) uIU/mL Free T4 (0.71-1.85) ng/dL Urine Color Urine Appearance Urine pH (5.0-8.0) Ur Specific [place] (1.005-1.025) Urine Protein (NEG-TRACE) MG/DL Urine Glucose (UA) (NEG) MG/DL Urine Ketones (NEG) MG/DL Urine Blood (NEG) Urine Nitrite (NEG) Ur Leukocyte Esterase (NEG) Urine Opiates Screen (Not Detect) Urine Fentanyl Screen (Not Detect) Ur Barbiturates Screen (Not Detect) Ur Phencyclidine Scrn (Not Detect) Ur Amphetamines Screen (Not Detect) U Benzodiazepines Scrn (Not Detect) Urine Cocaine Screen (Not Detect) U Marijuana (THC) Screen (Not Detect) Ethyl Alcohol mg/dL COVID-19 (ROBERT) Negative (Negative) COVID-19 Clin Com See Note 05/04/21 05/04/21 05/04/21 Range/Units 14:01 14:01 14:01 WBC 2.3 L (4.8-10.8) X10*3/uL RBC 2.96 L (4.20-5.50) X10*6/uL Hgb 8.7 L (12.0-16.0) g/dl Hct 27.7 L (37-47) % MCV 93.6 (80-98) fL MCH 29.4 (27.0-33.0) pg MCHC 31.4 (31.0-35.0) g/dl RDW 16.6 H (11.0-16.0) % Plt Count 134 L D (160-400) X10*3/uL MPV 13.9 H (9.4-12.3) fL Immature Gran % (Auto) 1.3 H (0.0-0.4) % Neut % (Auto) 51.3 (45-73) % Lymph % (Auto) 23.7 (20-40) % Pickett % (Auto) 10.1 (2-11) % Eos % (Auto) 10.5 H (0-4) % Baso % (Auto) 3.1 H (0-2) % Lymph # (Auto) 0.5 L (1.2-4.9) X10*3/uL Pickett # (Auto) 0.2 (0.1-1.2) X10*3/uL Eos # (Auto) 0.2 (0.0-0.4) X10*3/uL Baso # (Auto) 0.1 (0.0-0.2) X10*3/uL Abs Immat Gran (auto) 0.03 (0.00-0.03) X10*3/uL Absolute Neuts (auto) 1.2 L (2.0-8.3) X10*3/uL Absolute Nucleated RBC 0.000 (0.0-0.012) X10*3/uL Nucleated RBC % (auto) 0.0 (0.0-0.2) /100WBC Smear Tech's Comments VERIFIED VBG pH (7.32-7.43) VBG pCO2 mmHg VBG pO2 mmHg VBG HCO3 (22-26) mmol/L VBG O2 Saturation % VBG Base Excess mmol/L Sodium (135-145) mmol/L Potassium (3.3-5.1) mmol/L Chloride (96-108) mmol/L Carbon Dioxide (22-29) mmol/L Anion Gap (12-20) BUN (9-16) mg/dL Creatinine (0.5-1.4) mg/dL Estim Creat Clear Calc Estimated GFR Random Glucose (60-115) mg/dL Lactic Acid 1.7 (0.5-2.0) mmol/L Calcium (8.4-10.2) mg/dL Magnesium (1.6-2.6) mg/dL Total Bilirubin (0.0-1.0) mg/dL Direct Bilirubin (0.0-0.5) mg/dL AST (5-31) U/L ALT (0-31) U/L Alkaline Phosphatase (39-117) U/L Ammonia 19 (13-55) umol/L Total Creatine Kinase (26-140) U/L Troponin I High Sens (<3.5-17.0) ng/L Total Protein (6.5-8.0) g/dL Albumin (3.5-5.0) g/dL Lipase (8-78) U/L TSH (0.32-4.0) uIU/mL Free T4 (0.71-1.85) ng/dL Urine Color Urine Appearance Urine pH (5.0-8.0) Ur Specific [place] (1.005-1.025) Urine Protein (NEG-TRACE) MG/DL Urine Glucose (UA) (NEG) MG/DL Urine Ketones (NEG) MG/DL Urine Blood (NEG) Urine Nitrite (NEG) Ur Leukocyte Esterase (NEG) Urine Opiates Screen (Not Detect) Urine Fentanyl Screen (Not Detect) Ur Barbiturates Screen (Not Detect) Ur Phencyclidine Scrn (Not Detect) Ur Amphetamines Screen (Not Detect) U Benzodiazepines Scrn (Not Detect) Urine Cocaine Screen (Not Detect) U Marijuana (THC) Screen (Not Detect) Ethyl Alcohol mg/dL COVID-19 (ROBERT) (Negative) COVID-19 Clin Com 05/04/21 05/04/21 05/04/21 Range/Units 14:01 14:15 16:22 WBC (4.8-10.8) X10*3/uL RBC (4.20-5.50) X10*6/uL Hgb (12.0-16.0) g/dl Hct (37-47) % MCV (80-98) fL MCH (27.0-33.0) pg MCHC (31.0-35.0) g/dl RDW (11.0-16.0) % Plt Count (160-400) X10*3/uL MPV (9.4-12.3) fL Immature Gran % (Auto) (0.0-0.4) % Neut % (Auto) (45-73) % Lymph % (Auto) (20-40) % Pickett % (Auto) (2-11) % Eos % (Auto) (0-4) % Baso % (Auto) (0-2) % Lymph # (Auto) (1.2-4.9) X10*3/uL [place]ett # (Auto) (0.1-1.2) X10*3/uL Eos # (Auto) (0.0-0.4) X10*3/uL Baso # (Auto) (0.0-0.2) X10*3/uL Abs Immat Gran (auto) (0.00-0.03) X10*3/uL Absolute Neuts (auto) (2.0-8.3) X10*3/uL Absolute Nucleated RBC (0.0-0.012) X10*3/uL Nucleated RBC % (auto) (0.0-0.2) /100WBC Smear Tech's Comments VBG pH 7.38 (7.32-7.43) VBG pCO2 34 mmHg VBG pO2 50 mmHg VBG HCO3 20 L (22-26) mmol/L VBG O2 Saturation 78.0 % VBG Base Excess -3.7 mmol/L Sodium (135-145) mmol/L Potassium (3.3-5.1) mmol/L Chloride (96-108) mmol/L Carbon Dioxide (22-29) mmol/L Anion Gap (12-20) BUN (9-16) mg/dL Creatinine (0.5-1.4) mg/dL Estim Creat Clear Calc Estimated GFR Random Glucose (60-115) mg/dL Lactic Acid (0.5-2.0) mmol/L Calcium (8.4-10.2) mg/dL Magnesium (1.6-2.6) mg/dL Total Bilirubin (0.0-1.0) mg/dL Direct Bilirubin (0.0-0.5) mg/dL AST (5-31) U/L ALT (0-31) U/L Alkaline Phosphatase (39-117) U/L Ammonia (13-55) umol/L Total Creatine Kinase (26-140) U/L Troponin I High Sens (<3.5-17.0) ng/L Total Protein (6.5-8.0) g/dL Albumin (3.5-5.0) g/dL Lipase (8-78) U/L TSH 4.03 H (0.32-4.0) uIU/mL Free T4 1.07 (0.71-1.85) ng/dL Urine Color Urine Appearance Urine pH (5.0-8.0) Ur Specific [place] (1.005-1.025) Urine Protein (NEG-TRACE) MG/DL Urine Glucose (UA) (NEG) MG/DL Urine Ketones (NEG) MG/DL Urine Blood (NEG) Urine Nitrite (NEG) Ur Leukocyte Esterase (NEG) Urine Opiates Screen (Not Detect) Urine Fentanyl Screen (Not Detect) Ur Barbiturates Screen (Not Detect) Ur Phencyclidine Scrn (Not Detect) Ur Amphetamines Screen (Not Detect) U Benzodiazepines Scrn (Not Detect) Urine Cocaine Screen (Not Detect) U Marijuana (THC) Screen (Not Detect) Ethyl Alcohol < 10 mg/dL COVID-19 (ROBERT) (Negative) COVID-19 Clin Com 05/04/21 05/04/21 05/04/21 Range/Units 16:22 16:22 16:22 WBC (4.8-10.8) X10*3/uL RBC (4.20-5.50) X10*6/uL Hgb (12.0-16.0) g/dl Hct (37-47) % MCV (80-98) fL MCH (27.0-33.0) pg MCHC (31.0-35.0) g/dl RDW (11.0-16.0) % Plt Count (160-400) X10*3/uL MPV (9.4-12.3) fL Immature Gran % (Auto) (0.0-0.4) % Neut % (Auto) (45-73) % Lymph % (Auto) (20-40) % Pickett % (Auto) (2-11) % Eos % (Auto) (0-4) % Baso % (Auto) (0-2) % Lymph # (Auto) (1.2-4.9) X10*3/uL Pickett # (Auto) (0.1-1.2) X10*3/uL Eos # (Auto) (0.0-0.4) X10*3/uL Baso # (Auto) (0.0-0.2) X10*3/uL Abs Immat Gran (auto) (0.00-0.03) X10*3/uL Absolute Neuts (auto) (2.0-8.3) X10*3/uL Absolute Nucleated RBC (0.0-0.012) X10*3/uL Nucleated RBC % (auto) (0.0-0.2) /100WBC Smear Tech's Comments VBG pH (7.32-7.43) VBG pCO2 mmHg VBG pO2 mmHg VBG HCO3 (22-26) mmol/L VBG O2 Saturation % VBG Base Excess mmol/L Sodium (135-145) mmol/L Potassium (3.3-5.1) mmol/L Chloride (96-108) mmol/L Carbon Dioxide (22-29) mmol/L Anion Gap (12-20) BUN (9-16) mg/dL Creatinine (0.5-1.4) mg/dL Estim Creat Clear Calc Estimated GFR Random Glucose (60-115) mg/dL Lactic Acid (0.5-2.0) mmol/L Calcium (8.4-10.2) mg/dL Magnesium (1.6-2.6) mg/dL Total Bilirubin (0.0-1.0) mg/dL Direct Bilirubin (0.0-0.5) mg/dL AST (5-31) U/L ALT (0-31) U/L Alkaline Phosphatase (39-117) U/L Ammonia (13-55) umol/L Total Creatine Kinase (26-140) U/L Troponin I High Sens 16.7 (<3.5-17.0) ng/L Total Protein (6.5-8.0) g/dL Albumin (3.5-5.0) g/dL Lipase (8-78) U/L TSH (0.32-4.0) uIU/mL Free T4 (0.71-1.85) ng/dL Urine Color YELLOW Urine Appearance HAZY Urine pH 6.0 (5.0-8.0) Ur Specific [place] 1.025 (1.005-1.025) Urine Protein TRACE (NEG-TRACE) MG/DL Urine Glucose (UA) NEG (NEG) MG/DL Urine Ketones NEG (NEG) MG/DL Urine Blood NEG (NEG) Urine Nitrite NEG (NEG) Ur Leukocyte Esterase NEG (NEG) Urine Opiates Screen Not Detected (Not Detect) Urine Fentanyl Screen Not Detected (Not Detect) Ur Barbiturates Screen Not Detected (Not Detect) Ur Phencyclidine Scrn Not Detected (Not Detect) Ur Amphetamines Screen Not Detected (Not Detect) U Benzodiazepines Scrn Not Detected (Not Detect) Urine Cocaine Screen Not Detected (Not Detect) U Marijuana (THC) Screen Not Detected (Not Detect) Ethyl Alcohol mg/dL COVID-19 (ROBERT) (Negative) COVID-19 Clin Com ECG Data Attestation: I personally reviewed and interpreted this ECG as follows: ECG interpretation date: 05/04/21 ECG interpretation time: 14:06 Interpretation: Rate:69 Rhythm: NSR [place]: left, LVH Normal P waves. Normal GUILLAUME. Normal QRS complex. ST T wave : inverted t waves V1-V4 no VIDA qTC: prolonged prior studies: none available The study has been interpreted contemporaneously by me. . Discharge Plan Discharge Clinical Impression: Pancytopenia, Adult failure to thrive Multiple myeloma Qualifiers: Multiple myeloma remission status: unspecified Qualified Code(s): C90.00 - Multiple myeloma not having achieved remission Prescriptions: No Action omeprazole 20 mg capsule,delayed release(DR/EC) 20 mg PO DAILY Qty: 90 RF: 0 cetirizine 10 mg tablet 10 mg PO BEDTIME Qty: 30 RF: 5 ferrous sulfate 324 mg (65 mg iron) tablet,delayed release (DR/EC) 324 mg PO DAILY Qty: 90 RF: 0 aspirin 81 mg tablet,delayed release (DR/EC) 81 mg PO DAILY Qty: 90 RF: 0 metoprolol tartrate 25 mg tablet 25 mg PO BID 30 Days Qty: 60 RF: 5 allopurinol 100 mg tablet 100 mg PO DAILY Qty: 90 RF: 0 albuterol sulfate 90 mcg/actuation HFA aerosol inhaler 2 puff PO Q4H PRN (Reason: Dyspnea) RF: 0 clozapine 100 mg tablet 200 mg PO BEDTIME RF: 0 Revlimid 15 mg capsule 15 mg PO USEASDIRECTD RF: 0 loperamide [Anti-Diarrheal (loperamide)] 2 mg capsule 2 mg PO DAILY PRN (Reason: Diarrhea) RF: 0 lorazepam [Ativan] 1 mg tablet 1 mg PO DAILY PRN (Reason: Anxiety) RF: 0 sennosides [senna] 8.6 mg tablet 2 tab PO DAILY PRN (Reason: Constipation) RF: 0 ondansetron HCl 4 mg tablet 1 tab PO Q4H PRN (Reason: Nausea) RF: 0 Restasis 0.05 % Dropperette 1 drp ophthalmic (eye) DAILY RF: 0 cholecalciferol (vitamin D3) 50 mcg (2,000 unit) capsule 50 mcg PO DAILY Qty: 30 RF: 5 sulfamethoxazole-trimethoprim [Bactrim DS] 800-160 mg Tablet 1 tab PO DAILY Qty: 90 RF: 3 acyclovir 400 mg Tablet 400 mg PO DAILY Qty: 90 RF: 6 calcium carbonate [Calcium 600] 600 mg calcium (1,500 mg) tablet 600 mg PO BID RF: 0 Zarxio 300 mcg/0.5 mL syringe 300 mcg SUBCUT MOTH RF: 0
--- NOTE | 2021-05-04 13:32 | ECG_ITS ---
Test Reason : AMS Blood Pressure : / mmHG Vent. Rate : 069 BPM Atrial Rate : 069 BPM P-R Int : 172 ms QRS Dur : 104 ms QT Int : 498 ms P-R-T Axes : 036 -30 004 degrees QTc Int : 533 ms Normal sinus rhythm Left axis deviation RSR' or QR pattern in V1 suggests right ventricular conduction delay Minimal voltage criteria for LVH, may be normal variant ( R in aVL ) ST & T wave abnormality, consider anterior ischemia Prolonged QT Abnormal ECG T wave inversion more evident in Anterior leads Referred By: Lucie Diaz Electronically Signed By:CHANCE BOONE MD
[2021-05-04] MEDS: 0.9 % Sodium Chloride 1,000 ML 999 ML IV ×3 (14:08→16:12)
[2021-05-04 14:19] LABS: Venous Blood Gas Refer to POC result
[2021-05-04 14:20] LABS: VBG Base Excess -3.7 mmol/L; VBG HCO3 20 mmol/L (22-26); VBG pCO2 34 mmHg; VBG pH 7.38 (7.32-7.43); VBG pO2 50 mmHg
--- NOTE | 2021-05-04 14:22 | PHA.MEDREC ---
Pharmacy Consult ? Medication Reconciliation Pharmacy has completed the medication reconciliation.
[2021-05-04 14:26] LABS: Basophils Absolute Auto 0.1 X10*3/uL (0.0-0.2); Basophils Percent Auto 3.1 % (0-2); Eosinophils Absolute Auto 0.2 X10*3/uL (0.0-0.4); Eosinophils Percent Auto 10.5 % (0-4); Hematocrit 27.7 % (37-47); Hemoglobin 8.7 g/dl (12.0-16.0); Imm Gran Abs Auto 0.03 X10*3/uL (0.00-0.03); Imm Gran Pct Auto 1.3 % (0.0-0.4); Lymphocytes Absolute Auto 0.5 X10*3/uL (1.2-4.9); Lymphocytes Percent Auto 23.7 % (20-40); MANUAL DIFF FLAG SCAN; Mean Corpuscular HGB Conc 31.4 g/dl (31.0-35.0); Mean Corpuscular Hemoglobin 29.4 pg (27.0-33.0); Mean Corpuscular Volume 93.6 fL (80-98); Mean Platelet Volume 13.9 fL (9.4-12.3); Monocytes Absolute Auto 0.2 X10*3/uL (0.1-1.2); Monocytes Percent Auto 10.1 % (2-11); Neutrophils Absolute Auto 1.2 X10*3/uL (2.0-8.3); Neutrophils Percent Auto 51.3 % (45-73); PLT CLUMP 1; Red Blood Count 2.96 X10*6/uL (4.20-5.50); Red Cell Distribution Width 16.6 % (11.0-16.0); SCAN SMEAR FLAG 1
[2021-05-04 14:27] LABS: Platelet Count 134 X10*3/uL (160-400); White Blood Count 2.3 X10*3/uL (4.8-10.8)
[2021-05-04 14:36] LABS: Lactic Acid 1.7 mmol/L (0.5-2.0)
[2021-05-04 14:36] LABS: Anion Gap 16 (12-20); Blood Urea Nitrogen 9 mg/dL (9-16); Calcium 8.1 mg/dL (8.4-10.2); Carbon Dioxide 20 mmol/L (22-29); Chloride 108 mmol/L (96-108); Creatinine Clr Calc Pharmacy 36.1; Estimated Glomerular Filt Rate 45; Glucose Random 123 mg/dL (60-115); Potassium 3.6 mmol/L (3.3-5.1); Sodium 140 mmol/L (135-145)
[2021-05-04 14:39] LABS: COVID-19 Test Negative (Negative); IDNOW Serial# 08D9AD1C
[2021-05-04 14:49] LABS: SLIDE REVIEW VERIFIED
[2021-05-04 14:50] LABS: Ammonia 19 umol/L (13-55)
[2021-05-04 14:56] LABS: TSH reflex Free T4 4.03 uIU/mL (0.32-4.0)
[2021-05-04 14:59] LABS: Troponin-I High Sensitivity 17.9 ng/L (<3.5-17.0)
[2021-05-04 15:04] LABS: Alanine Aminotransferase 9 U/L (0-31); Albumin Level 3.1 g/dL (3.5-5.0); Alkaline Phosphatase 121 U/L (39-117); Aspartate Amino Transferase 17 U/L (5-31); Bilirubin Direct 0.2 mg/dL (0.0-0.5); Bilirubin Total 0.4 mg/dL (0.0-1.0); Lipase 21 U/L (8-78); Magnesium 2.1 mg/dL (1.6-2.6); Total Protein 5.7 g/dL (6.5-8.0)
[2021-05-04 15:36] LABS: Free T4 (Free Thyroxine) 1.07 ng/dL (0.71-1.85)
[2021-05-04 16:29] LABS: Appearance Urine HAZY; Color Urine YELLOW; Glucose Urine UA NEG (NEG); Leukocyte Esterase Urine NEG (NEG); Nitrite Urine NEG (NEG); Specific Gravity - Urine 1.025 (1.005-1.025); Urine Blood NEG (NEG); Urine Ketones NEG (NEG); Urine Protein TRACE MG/DL (NEG-TRACE)
[2021-05-04 16:42] LABS: Ethanol < 10 mg/dL
[2021-05-04 16:45] LABS: Amphetamine Screen Urine Not Detected (Not Detect); Barbiturates, Urine Not Detected (Not Detect); Benzodiazepines Screen Urine Not Detected (Not Detect); Cannabinoid Screen Urine Not Detected (Not Detect); Cocaine Screen Urine Not Detected (Not Detect); Fentanyl, urine Not Detected (Not Detect); Opiate Screen Urine Not Detected (Not Detect); Phencyclidine Screen Urine Not Detected (Not Detect)
[2021-05-04 16:52] LABS: Troponin-I High Sensitivity 16.7 ng/L (<3.5-17.0)
[2021-05-04] MEDS: iohexoL 350 MG/ML 100 ML INFUS..BTL IV (19:20)
--- NOTE | 2021-05-04 21:39 | MHC.CARE ---
CARE team met with pt and granddaughter in ED room 4. Pt is observed sleeping and was easily awaken. She reports she was brought into ED ?because of the president?. Granddaughter discussed pt has not been eating or drinking for several weeks, has no energy to get up from bed, has been experiencing increase hallucinations, increase confusion and disorientation to person and time. Granddaughter reported a known dx of schizoaffective-bipolar and a recent med adjustment, six weeks ago. Granddaughter reported a family history of Alzheimer and is questioning Dementia dx.
--- NOTE | 2021-05-04 22:02 | MHC.CARE ---
CARE team met with granddaughter and discussed IP level of care. Grandlydiaughter does not feel pt requires higher level of care as evidence by pt presenting differently when she requires IP. Granddaughter feels pt? s presentation is dementia related. CARE team encouraged granddaughter to follow up with PCP and neurologist to determine dementia dx. Pt is discharged as grandlydiaughter feels safe with pt returning home. Plan is to follow up with PCP.
== END 2021-05-04 22:58 | disposition home or self-care (01) ==
PROVIDERS: Emergency Provider Emergency Medicine
DX: R62.7 Adult failure to thrive (principal); Z68.28 Body mass index [BMI] 28.0-28.9, adult; D61.818 Other pancytopenia; C90.00 Multiple myeloma not having achieved remission; I10 Essential (primary) hypertension; J45.909 Unspecified asthma, uncomplicated; Z79.899 Other long term (current) drug therapy; Z20.822 Contact with and (suspected) exposure to COVID-19
CPT/HCPCS: 36415; 70450; 71045; 74177; 80048; 80076; 80307; 81003; 82077; 82140; 82550; 82803; 83605; 83690; 83735; 84439; 84443; 84484; 85025; 87040; 87635; 93005; 96360; 96361; 99284; Q9967

== ENCOUNTER 2021-05-06 05:56 | Outpatient (REF) | payer MEDICARE, SELFPAY | END 2021-05-06 05:57 | disposition home or self-care (01) | LOC: HO.LHD 05:56 | PROVIDERS: Absent Provider Clinical Nurse Specialist Psychiatric/Mental Health, Adult; Visit Provider Internal Medicine Medical Oncology | DX: Z13.89 Encounter for screening for other disorder (principal) ==

== ENCOUNTER 2021-05-13 12:05 | Outpatient (REF) | payer MEDICARE, SELFPAY ==
[2021-05-13 10:09] LABS: Basophils Percent Auto 1.7 % (0-2); Eosinophils Absolute Auto 0.5 X10*3/uL (0.0-0.4); Eosinophils Percent Auto 22.6 % (0-4); Hematocrit 25.4 % (37-47); Hemoglobin 7.9 g/dl (12.0-16.0); Imm Gran Abs Auto 0.01 X10*3/uL (0.00-0.03); Imm Gran Pct Auto 0.4 % (0.0-0.4); Lymphocytes Percent Auto 40.9 % (20-40); MANUAL DIFF FLAG SCAN; Mean Corpuscular HGB Conc 31.1 g/dl (31.0-35.0); Mean Corpuscular Hemoglobin 29.5 pg (27.0-33.0); Mean Corpuscular Volume 94.8 fL (80-98); Mean Platelet Volume 12.6 fL (9.4-12.3); Monocytes Absolute Auto 0.3 X10*3/uL (0.1-1.2); Monocytes Percent Auto 11.5 % (2-11); Neutrophils Absolute Auto 0.5 X10*3/uL (2.0-8.3); Neutrophils Percent Auto 22.9 % (45-73); Platelet Count 121 X10*3/uL (160-400); Red Blood Count 2.68 X10*6/uL (4.20-5.50); Red Cell Distribution Width 17.8 % (11.0-16.0); SCAN SMEAR FLAG 1; White Blood Count 2.4 X10*3/uL (4.8-10.8)
[2021-05-13 10:36] LABS: SLIDE REVIEW VERIFIED
[2021-05-13 10:40] LABS: Alanine Aminotransferase < 6 U/L (0-31); Albumin Level 2.6 g/dL (3.5-5.0); Alkaline Phosphatase 84 U/L (39-117); Anion Gap 12 (12-20); Aspartate Amino Transferase 12 U/L (5-31); Bilirubin Total 0.4 mg/dL (0.0-1.0); Blood Urea Nitrogen 14 mg/dL (9-16); Calcium 8.2 mg/dL (8.4-10.2); Carbon Dioxide 20 mmol/L (22-29); Chloride 113 mmol/L (96-108); Estimated Glomerular Filt Rate 55; Glucose Random 81 mg/dL (60-115); Potassium 3.9 mmol/L (3.3-5.1); Sodium 141 mmol/L (135-145); Total Protein 4.6 g/dL (6.5-8.0)
== END 2021-05-13 12:06 | disposition home or self-care (01) ==
LOC: HO.LHD 12:05
PROVIDERS: Absent Provider Clinical Nurse Specialist Psychiatric/Mental Health, Adult; Visit Provider Internal Medicine Medical Oncology
DX: C90.00 Multiple myeloma not having achieved remission (principal)
CPT/HCPCS: 36415; 80053; 85025

== ENCOUNTER 2021-05-20 07:07 | Outpatient (REF) | payer OTHER, SELFPAY | END 2021-05-20 07:08 | disposition home or self-care (01) | LOC: HO.LHD 07:07 | PROVIDERS: Absent Provider Clinical Nurse Specialist Psychiatric/Mental Health, Adult; Visit Provider Internal Medicine Medical Oncology | DX: Z13.89 Encounter for screening for other disorder (principal) ==

== ENCOUNTER 2021-06-03 | Outpatient (REF) | payer MEDICARE, SELFPAY ==
[2021-06-03 10:29] LABS: Hematocrit 23.8 % (37.0-47.0); Hemoglobin 7.3 g/dl (12.0-16.0); Mean Corpuscular HGB Conc 30.7 g/dl (31.0-35.0); Mean Corpuscular Hemoglobin 30.2 pg (27.0-33.0); Mean Corpuscular Volume 98.3 fL (80.0-98.0); Mean Platelet Volume 12.5 fL (9.4-12.3); Platelet Count 139 X10*3/uL (160-400); Red Blood Count 2.42 X10*6/uL (4.20-5.50); Red Cell Distribution Width 19.5 % (11.0-16.0)
[2021-06-03 10:55] LABS: Alanine Aminotransferase 6 U/L (0-31); Albumin Level 2.9 g/dL (3.5-5.0); Alkaline Phosphatase 76 U/L (39-117); Anion Gap 9 (12-20); Aspartate Amino Transferase 9 U/L (5-31); Bilirubin Total 0.4 mg/dL (0.0-1.0); Blood Urea Nitrogen 20 mg/dL (9-16); Calcium 7.8 mg/dL (8.4-10.2); Carbon Dioxide 23 mmol/L (22-29); Chloride 111 mmol/L (96-108); Cholesterol 133 mg/dL; Estimated Glomerular Filt Rate 49; Glucose Random 87 mg/dL (60-115); HDL Cholesterol 35 mg/dL; LDL Cholesterol Calculated 75 mg/dl; Potassium 4.4 mmol/L (3.3-5.1); Sodium 139 mmol/L (135-145); Total Protein 4.8 g/dL (6.5-8.0); Triglycerides 116 mg/dL
[2021-06-03 11:13] LABS: Vitamin D 25-OH Total 41.1 ng/mL (>30)
[2021-06-03 11:18] LABS: Band Neutrophils Percent 2 % (3-5); Basophils Percent Manual 1 % (0-2); Eosinophils Absolute Manual 0.5 X10*3/uL (0.0-0.4); Eosinophils Percent Manual 16 % (0-4); Lymphocytes Absolute Manual 0.6 X10*3/uL (1.2-4.9); Lymphocytes Percent Manual 21 % (20-40); Monocytes Absolute Manual 0.3 X10*3/uL (0.1-1.2); Monocytes Percent Manual 9 % (2-11); Neutrophils Absolute Manual 1.6 X10*3/uL (2.0-8.3); Neutrophils Percent Manual 51 % (45-73)
[2021-06-03 11:22] LABS: Acanthocytes 1+ (0-2) /OIF; Hypochromasia 1+ (5-14) /OIF; Macrocytosis 1+ (5-14) /OIF; Ovalocytes 1+ (5-14) /OIF; RBC Morphology NOTED
[2021-06-03 11:23] LABS: Platelet Estimate DECREASED (NORMAL); Platelet Morphology Comment NORMAL; Polychromasia 1+ (0-2) /OIF; WBC Morphology Comment DYSMORPHIC
== END 2021-06-03 00:01 | disposition home or self-care (01) ==
LOC: HO.LHD
PROVIDERS: Internal Medicine; Absent Provider Clinical Nurse Specialist Psychiatric/Mental Health, Adult; Visit Provider Internal Medicine Medical Oncology
DX: Z00.01 Encounter for general adult medical examination with abnormal findings (principal); C90.00 Multiple myeloma not having achieved remission; Z78.0 Asymptomatic menopausal state
CPT/HCPCS: 36415; 80053; 80061; 82306; 85007; 85027

== ENCOUNTER 2021-06-10 11:06 | Outpatient (REF) | payer MEDICARE, SELFPAY ==
[2021-06-10 09:36] LABS: Hemoglobin 10.6 g/dl (12.0-16.0); Mean Corpuscular HGB Conc 31.2 g/dl (31.0-35.0); Mean Corpuscular Volume 99.4 fL (80.0-98.0); Platelet Count 109 X10*3/uL (160-400); Red Blood Count 3.42 X10*6/uL (4.20-5.50); Red Cell Distribution Width 17.7 % (11.0-16.0)
[2021-06-10 09:38] LABS: WBC ABN SCTR FOR CBC 1
[2021-06-10 10:18] LABS: Band Neutrophils Percent 14 % (3-5); Basophils Percent Manual 1 % (0-2); Eosinophils Percent Manual 7 % (0-4); Lymphocytes Percent Manual 17 % (20-40); Monocytes Percent Manual 5 % (2-11); Neutrophils Percent Manual 56 % (45-73)
[2021-06-10 10:19] LABS: Acanthocytes 1+ (0-2) /OIF; RBC Morphology NOTED
[2021-06-10 10:20] LABS: Platelet Estimate SLIGHTLY DECREASED (NORMAL); Platelet Morphology Comment NORMAL; Schistocytes 1+ (0-2) /OIF
[2021-06-10 10:21] LABS: Eosinophils Absolute Manual 0.3 X10*3/uL (0.0-0.4); Lymphocytes Absolute Manual 0.7 X10*3/uL (1.2-4.9); Monocytes Absolute Manual 0.2 X10*3/uL (0.1-1.2); Neutrophils Absolute Manual 2.9 X10*3/uL (2.0-8.3); White Blood Count 4.2 X10*3/uL (4.8-10.8)
[2021-06-10 10:28] LABS: Alanine Aminotransferase 13 U/L (0-31); Alkaline Phosphatase 85 U/L (39-117); Anion Gap 10 (12-20); Aspartate Amino Transferase 16 U/L (5-31); Bilirubin Total 0.3 mg/dL (0.0-1.0); Blood Urea Nitrogen 15 mg/dL (9-16); Calcium 8.1 mg/dL (8.4-10.2); Carbon Dioxide 22 mmol/L (22-29); Chloride 113 mmol/L (96-108); Estimated Glomerular Filt Rate 41; Glucose Random 87 mg/dL (60-115); Potassium 4.4 mmol/L (3.3-5.1); Sodium 141 mmol/L (135-145); Total Protein 5.1 g/dL (6.5-8.0)
== END 2021-06-10 11:07 | disposition home or self-care (01) ==
LOC: HO.LHD 11:06
PROVIDERS: Absent Provider Clinical Nurse Specialist Psychiatric/Mental Health, Adult; Visit Provider Internal Medicine Medical Oncology
DX: C90.00 Multiple myeloma not having achieved remission (principal)
CPT/HCPCS: 36415; 80053; 85007; 85027

== ENCOUNTER 2021-06-17 10:35 | Outpatient (REF) | payer MEDICARE, SELFPAY ==
[2021-06-17 09:52] LABS: MANUAL DIFF FLAG NO
[2021-06-17 10:00] LABS: Basophils Percent Auto 1.3 % (0-2); Eosinophils Absolute Auto 0.4 X10*3/uL (0.0-0.4); Eosinophils Percent Auto 11.1 % (0-4); Hematocrit 34.8 % (37.0-47.0); Hemoglobin 10.7 g/dl (12.0-16.0); Imm Gran Abs Auto 0.02 X10*3/uL (0.00-0.03); Imm Gran Pct Auto 0.6 % (0.0-0.4); Lymphocytes Absolute Auto 0.9 X10*3/uL (1.2-4.9); Lymphocytes Percent Auto 29.7 % (20-40); Mean Corpuscular HGB Conc 30.7 g/dl (31.0-35.0); Mean Corpuscular Hemoglobin 31.2 pg (27.0-33.0); Mean Corpuscular Volume 101.5 fL (80.0-98.0); Mean Platelet Volume 10.9 fL (9.4-12.3); Monocytes Absolute Auto 0.4 X10*3/uL (0.1-1.2); Monocytes Percent Auto 12.3 % (2-11); Neutrophils Absolute Auto 1.4 x10*3/uL (2.0-8.3); Platelet Count 136 X10*3/uL (160-400); Red Blood Count 3.43 X10*6/uL (4.20-5.50); Red Cell Distribution Width 17.1 % (11.0-16.0); White Blood Count 3.2 X10*3/uL (4.8-10.8)
[2021-06-17 10:40] LABS: Alanine Aminotransferase 9 U/L (0-31); Albumin Level 3.3 g/dL (3.5-5.0); Alkaline Phosphatase 77 U/L (39-117); Anion Gap 12 (12-20); Aspartate Amino Transferase 10 U/L (5-31); Bilirubin Total 0.3 mg/dL (0.0-1.0); Blood Urea Nitrogen 20 mg/dL (9-16); Calcium 8.8 mg/dL (8.4-10.2); Carbon Dioxide 23 mmol/L (22-29); Chloride 110 mmol/L (96-108); Estimated Glomerular Filt Rate 42; Glucose Random 105 mg/dL (60-115); Potassium 4.3 mmol/L (3.3-5.1); Sodium 141 mmol/L (135-145); Total Protein 5.5 g/dL (6.5-8.0)
--- NOTE | 2021-06-17 15:26 | MHC.HEMONC ---
pt CBCD and CMP faxed to Yunior Sutton.
== END 2021-06-17 10:36 | disposition home or self-care (01) ==
LOC: HO.LHD 10:35
PROVIDERS: Absent Provider Clinical Nurse Specialist Psychiatric/Mental Health, Adult; Visit Provider Internal Medicine Medical Oncology
DX: C90.00 Multiple myeloma not having achieved remission (principal)
CPT/HCPCS: 36415; 80053; 85025

== ENCOUNTER 2021-06-24 09:22 | Outpatient (REF) | payer MEDICARE, SELFPAY ==
[2021-06-24 09:13] LABS: Hematocrit 31.9 % (37.0-47.0); Hemoglobin 10.1 g/dl (12.0-16.0); Mean Corpuscular HGB Conc 31.7 g/dl (31.0-35.0); Mean Corpuscular Hemoglobin 31.9 pg (27.0-33.0); Mean Corpuscular Volume 100.6 fL (80.0-98.0); Mean Platelet Volume 10.8 fL (9.4-12.3); Platelet Count 189 X10*3/uL (160-400); Red Blood Count 3.17 X10*6/uL (4.20-5.50); Red Cell Distribution Width 16.9 % (11.0-16.0)
[2021-06-24 09:15] LABS: WBC ABN SCTR FOR CBC 1
[2021-06-24 09:49] LABS: Alanine Aminotransferase 7 U/L (0-31); Albumin Level 3.2 g/dL (3.5-5.0); Alkaline Phosphatase 84 U/L (39-117); Anion Gap 10 (12-20); Aspartate Amino Transferase 11 U/L (5-31); Bilirubin Total < 0.2 mg/dL (0.0-1.0); Blood Urea Nitrogen 20 mg/dL (9-16); Calcium 8.4 mg/dL (8.4-10.2); Carbon Dioxide 28 mmol/L (22-29); Chloride 109 mmol/L (96-108); Estimated Glomerular Filt Rate 36; Glucose Random 94 mg/dL (60-115); Potassium 4.8 mmol/L (3.3-5.1); Sodium 142 mmol/L (135-145); Total Protein 5.4 g/dL (6.5-8.0)
[2021-06-24 10:16] LABS: Atypical Lymphs Percent Manual 2 % (0-6); Band Neutrophils Percent 16 % (3-5); Basophils Percent Manual 4 % (0-2); Eosinophils Percent Manual 3 % (0-4); Lymphocytes Percent Manual 15 % (20-40); Monocytes Percent Manual 7 % (2-11); Neutrophils Percent Manual 53 % (45-73)
[2021-06-24 10:19] LABS: Hypochromasia 1+ (5-14) /OIF; Ovalocytes 1+ (5-14) /OIF; Platelet Estimate NORMAL (NORMAL); Platelet Morphology Comment NORMAL; RBC Morphology NOTED; Schistocytes 1+ (0-2) /OIF
[2021-06-24 10:26] LABS: Atypical Lymph Absolute Manual 0.2 x10*3/uL; Basophils Abs Manual 0.3 X10*3/uL (0.0-0.2); Eosinophils Absolute Manual 0.3 X10*3/uL (0.0-0.4); Lymphocytes Absolute Manual 1.3 X10*3/uL (1.2-4.9); Monocytes Absolute Manual 0.6 X10*3/uL (0.1-1.2); White Blood Count 8.7 X10*3/uL (4.8-10.8)
--- NOTE | 2021-06-24 12:17 | MHC.HEMONC ---
Pt labs from today (homedraw) faxed to Dr Waldron and Nicole.
== END 2021-06-24 09:23 | disposition home or self-care (01) ==
LOC: HO.LHD 09:22
PROVIDERS: PCP Internal Medicine Medical Oncology; Visit Provider Clinical Nurse Specialist Psychiatric/Mental Health, Adult
DX: C90.00 Multiple myeloma not having achieved remission (principal)
CPT/HCPCS: 36415; 80053; 85007; 85027

== ENCOUNTER 2021-07-01 07:36 | Outpatient (REF) | payer MEDICARE, SELFPAY ==
[2021-07-01 10:52] LABS: MANUAL DIFF FLAG NO
[2021-07-01 11:03] LABS: Basophils Percent Auto 0.7 % (0-2); Eosinophils Absolute Auto 0.4 X10*3/uL (0.0-0.4); Eosinophils Percent Auto 7.2 % (0-4); Hematocrit 33.4 % (37.0-47.0); Hemoglobin 10.3 g/dl (12.0-16.0); Imm Gran Abs Auto 0.04 X10*3/uL (0.00-0.03); Imm Gran Pct Auto 0.7 % (0.0-0.4); Lymphocytes Absolute Auto 1.1 X10*3/uL (1.2-4.9); Lymphocytes Percent Auto 18.8 % (20-40); Mean Corpuscular HGB Conc 30.8 g/dl (31.0-35.0); Mean Corpuscular Hemoglobin 31.1 pg (27.0-33.0); Mean Corpuscular Volume 100.9 fL (80.0-98.0); Mean Platelet Volume 12.8 fL (9.4-12.3); Monocytes Absolute Auto 0.5 X10*3/uL (0.1-1.2); Monocytes Percent Auto 8.2 % (2-11); Neutrophils Absolute Auto 3.9 x10*3/uL (2.0-8.3); Neutrophils Percent Auto 64.4 % (45-73); Platelet Count 139 X10*3/uL (160-400); Red Blood Count 3.31 X10*6/uL (4.20-5.50); Red Cell Distribution Width 16.6 % (11.0-16.0); White Blood Count 6.1 X10*3/uL (4.8-10.8)
[2021-07-01 11:20] LABS: Alanine Aminotransferase 7 U/L (0-31); Albumin Level 3.4 g/dL (3.5-5.0); Alkaline Phosphatase 86 U/L (39-117); Anion Gap 13 (12-20); Aspartate Amino Transferase 9 U/L (5-31); Bilirubin Total 0.3 mg/dL (0.0-1.0); Blood Urea Nitrogen 23 mg/dL (9-16); Calcium 8.5 mg/dL (8.4-10.2); Carbon Dioxide 23 mmol/L (22-29); Chloride 112 mmol/L (96-108); Estimated Glomerular Filt Rate 42; Glucose Random 84 mg/dL (60-115); Sodium 144 mmol/L (135-145); Total Protein 5.8 g/dL (6.5-8.0)
== END 2021-07-01 07:37 | disposition home or self-care (01) ==
LOC: HO.LABO 07:36
PROVIDERS: Visit Provider Internal Medicine Medical Oncology
DX: C90.00 Multiple myeloma not having achieved remission (principal)
CPT/HCPCS: 36415; 80053; 85025

== ENCOUNTER 2021-07-08 07:13 | Outpatient (REF) | payer MEDICARE, SELFPAY ==
[2021-07-08 11:04] LABS: Basophils Absolute Auto 0.1 X10*3/uL (0.0-0.2); Basophils Percent Auto 2.8 % (0-2); Eosinophils Absolute Auto 0.7 X10*3/uL (0.0-0.4); Eosinophils Percent Auto 23.3 % (0-4); Hematocrit 29.2 % (37.0-47.0); Imm Gran Abs Auto 0.02 X10*3/uL (0.00-0.03); Imm Gran Pct Auto 0.7 % (0.0-0.4); Lymphocytes Absolute Auto 0.9 X10*3/uL (1.2-4.9); Lymphocytes Percent Auto 32.6 % (20-40); MANUAL DIFF FLAG SCAN; Mean Corpuscular HGB Conc 30.8 g/dl (31.0-35.0); Mean Corpuscular Hemoglobin 31.5 pg (27.0-33.0); Mean Corpuscular Volume 102.1 fL (80.0-98.0); Monocytes Absolute Auto 0.4 X10*3/uL (0.1-1.2); Monocytes Percent Auto 12.8 % (2-11); Neutrophils Absolute Auto 0.8 x10*3/uL (2.0-8.3); Neutrophils Percent Auto 27.8 % (45-73); PLT CLUMP 1; Red Blood Count 2.86 X10*6/uL (4.20-5.50); Red Cell Distribution Width 15.9 % (11.0-16.0); SCAN SMEAR FLAG 1
[2021-07-08 11:24] LABS: Alanine Aminotransferase 10 U/L (0-31); Albumin Level 3.1 g/dL (3.5-5.0); Alkaline Phosphatase 76 U/L (39-117); Anion Gap 11 (12-20); Aspartate Amino Transferase 12 U/L (5-31); Bilirubin Total 0.4 mg/dL (0.0-1.0); Blood Urea Nitrogen 26 mg/dL (9-16); Calcium 8.1 mg/dL (8.4-10.2); Carbon Dioxide 21 mmol/L (22-29); Chloride 113 mmol/L (96-108); Estimated Glomerular Filt Rate 48; Glucose Random 93 mg/dL (60-115); Potassium 4.1 mmol/L (3.3-5.1); Sodium 141 mmol/L (135-145); Total Protein 5.4 g/dL (6.5-8.0)
[2021-07-08 11:26] LABS: White Blood Count 2.9 X10*3/uL (4.8-10.8)
[2021-07-08 11:29] LABS: SLIDE REVIEW VERIFIED
== END 2021-07-08 07:14 | disposition home or self-care (01) ==
LOC: HO.LHD 07:13
PROVIDERS: Visit Provider Internal Medicine Medical Oncology
DX: C90.00 Multiple myeloma not having achieved remission (principal)
CPT/HCPCS: 36415; 80053; 85025

== ENCOUNTER 2021-07-15 10:32 | Outpatient (REF) | payer MEDICARE, SELFPAY ==
[2021-07-15 11:17] LABS: Hematocrit 28.6 % (37.0-47.0); Mean Corpuscular HGB Conc 31.5 g/dl (31.0-35.0); Mean Corpuscular Hemoglobin 31.9 pg (27.0-33.0); Mean Corpuscular Volume 101.4 fL (80.0-98.0); Mean Platelet Volume 10.8 fL (9.4-12.3); Platelet Count 136 X10*3/uL (160-400); Red Blood Count 2.82 X10*6/uL (4.20-5.50); Red Cell Distribution Width 16.1 % (11.0-16.0); White Blood Count 9.8 X10*3/uL (4.8-10.8)
[2021-07-15 11:40] LABS: Alanine Aminotransferase 7 U/L (0-31); Albumin Level 3.2 g/dL (3.5-5.0); Alkaline Phosphatase 76 U/L (39-117); Anion Gap 7 (12-20); Aspartate Amino Transferase 10 U/L (5-31); Bilirubin Total 0.5 mg/dL (0.0-1.0); Blood Urea Nitrogen 17 mg/dL (9-16); Calcium 7.7 mg/dL (8.4-10.2); Carbon Dioxide 26 mmol/L (22-29); Chloride 113 mmol/L (96-108); Estimated Glomerular Filt Rate 44; Glucose Random 88 mg/dL (60-115); Potassium 4.2 mmol/L (3.3-5.1); Sodium 142 mmol/L (135-145); Total Protein 5.4 g/dL (6.5-8.0)
[2021-07-15 11:55] LABS: Atypical Lymph Absolute Manual 0.2 x10*3/uL; Atypical Lymphs Percent Manual 2 % (0-6); Band Neutrophils Percent 14 % (3-5); Basophils Abs Manual 0.1 X10*3/uL (0.0-0.2); Basophils Percent Manual 1 % (0-2); Eosinophils Absolute Manual 0.4 X10*3/uL (0.0-0.4); Eosinophils Percent Manual 4 % (0-4); Lymphocytes Absolute Manual 1.4 X10*3/uL (1.2-4.9); Lymphocytes Percent Manual 14 % (20-40); Neutrophils Absolute Manual 7.7 X10*3/uL (2.0-8.3); Neutrophils Percent Manual 65 % (45-73)
[2021-07-15 11:57] LABS: Macrocytosis 1+ (5-14) /OIF; RBC Morphology NOTED
[2021-07-15 11:58] LABS: Platelet Estimate SLIGHTLY DECREASED (NORMAL); Platelet Morphology Comment NORMAL
--- NOTE | 2021-07-18 08:21 | MHC.HEMONC ---
Pt labs from 07/15 faxed to Meño Waldron.
== END 2021-07-15 10:33 | disposition home or self-care (01) ==
LOC: HO.LHD 10:32
PROVIDERS: Absent Provider Clinical Nurse Specialist Psychiatric/Mental Health, Adult; Visit Provider Internal Medicine Medical Oncology
DX: C90.00 Multiple myeloma not having achieved remission (principal)
CPT/HCPCS: 36415; 80053; 85007; 85027

== ENCOUNTER 2021-07-22 05:45 | Outpatient (REF) | payer MEDICARE, SELFPAY ==
[2021-07-22 12:43] LABS: Hematocrit 30.7 % (37.0-47.0); Hemoglobin 9.5 g/dl (12.0-16.0); Mean Corpuscular HGB Conc 30.9 g/dl (31.0-35.0); Mean Corpuscular Hemoglobin 31.1 pg (27.0-33.0); Mean Corpuscular Volume 100.7 fL (80.0-98.0); Mean Platelet Volume 10.7 fL (9.4-12.3); Platelet Count 186 X10*3/uL (160-400); Red Blood Count 3.05 X10*6/uL (4.20-5.50); Red Cell Distribution Width 16.4 % (11.0-16.0); White Blood Count 7.4 X10*3/uL (4.8-10.8)
[2021-07-22 13:11] LABS: Alanine Aminotransferase 7 U/L (0-31); Albumin Level 3.2 g/dL (3.5-5.0); Alkaline Phosphatase 68 U/L (39-117); Anion Gap 9 (12-20); Aspartate Amino Transferase 9 U/L (5-31); Band Neutrophils Percent 14 % (3-5); Basophils Abs Manual 0.1 X10*3/uL (0.0-0.2); Basophils Percent Manual 1 % (0-2); Bilirubin Total 0.3 mg/dL (0.0-1.0); Blood Urea Nitrogen 23 mg/dL (9-16); Calcium 8.2 mg/dL (8.4-10.2); Carbon Dioxide 26 mmol/L (22-29); Chloride 112 mmol/L (96-108); Eosinophils Absolute Manual 0.3 X10*3/uL (0.0-0.4); Eosinophils Percent Manual 4 % (0-4); Estimated Glomerular Filt Rate 37; Glucose Random 88 mg/dL (60-115); Hypochromasia 1+ (5-14) /OIF; Lymphocytes Absolute Manual 1.4 X10*3/uL (1.2-4.9); Lymphocytes Percent Manual 19 % (20-40); Monocytes Absolute Manual 0.3 X10*3/uL (0.1-1.2); Monocytes Percent Manual 4 % (2-11); Neutrophils Absolute Manual 5.3 X10*3/uL (2.0-8.3); Neutrophils Percent Manual 58 % (45-73); Platelet Estimate NORMAL (NORMAL); Platelet Morphology Comment NORMAL; Potassium 4.2 mmol/L (3.3-5.1); RBC Morphology NOTED; Sodium 143 mmol/L (135-145); Total Protein 5.3 g/dL (6.5-8.0)
== END 2021-07-22 05:46 | disposition home or self-care (01) ==
LOC: HO.LHD 05:45
PROVIDERS: Absent Provider Clinical Nurse Specialist Psychiatric/Mental Health, Adult; Visit Provider Internal Medicine Medical Oncology
DX: C90.00 Multiple myeloma not having achieved remission (principal)
CPT/HCPCS: 36415; 80053; 85007; 85027

== ENCOUNTER 2021-07-29 05:58 | Outpatient (REF) | payer MEDICARE, SELFPAY ==
[2021-07-29 10:53] LABS: MANUAL DIFF FLAG NO
[2021-07-29 10:57] LABS: Basophils Absolute Auto 0.1 X10*3/uL (0.0-0.2); Basophils Percent Auto 1.8 % (0-2); Eosinophils Absolute Auto 0.3 X10*3/uL (0.0-0.4); Eosinophils Percent Auto 7.7 % (0-4); Hematocrit 29.7 % (37.0-47.0); Hemoglobin 9.2 g/dl (12.0-16.0); Imm Gran Abs Auto 0.04 X10*3/uL (0.00-0.03); Lymphocytes Percent Auto 25.8 % (20-40); Mean Corpuscular Hemoglobin 31.2 pg (27.0-33.0); Mean Corpuscular Volume 100.7 fL (80.0-98.0); Mean Platelet Volume 12.6 fL (9.4-12.3); Monocytes Absolute Auto 0.4 X10*3/uL (0.1-1.2); Monocytes Percent Auto 10.5 % (2-11); Neutrophils Absolute Auto 2.1 x10*3/uL (2.0-8.3); Neutrophils Percent Auto 53.2 % (45-73); Platelet Count 119 X10*3/uL (160-400); Red Blood Count 2.95 X10*6/uL (4.20-5.50); Red Cell Distribution Width 15.6 % (11.0-16.0); White Blood Count 3.9 X10*3/uL (4.8-10.8)
[2021-07-29 11:37] LABS: Alanine Aminotransferase 7 U/L (0-31); Albumin Level 3.2 g/dL (3.5-5.0); Alkaline Phosphatase 71 U/L (39-117); Anion Gap 13 (12-20); Aspartate Amino Transferase 7 U/L (5-31); Bilirubin Total 0.2 mg/dL (0.0-1.0); Blood Urea Nitrogen 27 mg/dL (9-16); Carbon Dioxide 22 mmol/L (22-29); Chloride 109 mmol/L (96-108); Estimated Glomerular Filt Rate 38; Glucose Random 113 mg/dL (60-115); Potassium 4.1 mmol/L (3.3-5.1); Sodium 140 mmol/L (135-145); Total Protein 5.3 g/dL (6.5-8.0)
== END 2021-07-29 05:59 | disposition home or self-care (01) ==
LOC: HO.LHD 05:58
PROVIDERS: Absent Provider Clinical Nurse Specialist Psychiatric/Mental Health, Adult; Visit Provider Internal Medicine Medical Oncology
DX: C90.00 Multiple myeloma not having achieved remission (principal)
CPT/HCPCS: 36415; 80053; 85025

== ENCOUNTER 2021-08-05 12:46 | Outpatient (REF) | payer MEDICARE, SELFPAY ==
[2021-08-05 10:56] LABS: Hematocrit 28.9 % (37.0-47.0); Mean Corpuscular HGB Conc 31.1 g/dl (31.0-35.0); Mean Corpuscular Hemoglobin 31.4 pg (27.0-33.0); Mean Corpuscular Volume 100.7 fL (80.0-98.0); Mean Platelet Volume 10.3 fL (9.4-12.3); Platelet Count 145 X10*3/uL (160-400); Red Blood Count 2.87 X10*6/uL (4.20-5.50); WBC ABN SCTR FOR CBC 1
[2021-08-05 11:15] LABS: Alanine Aminotransferase < 6 U/L (0-31); Albumin Level 3.2 g/dL (3.5-5.0); Alkaline Phosphatase 75 U/L (39-117); Anion Gap 10 (12-20); Aspartate Amino Transferase 8 U/L (5-31); Bilirubin Total < 0.2 mg/dL (0.0-1.0); Blood Urea Nitrogen 27 mg/dL (9-16); Calcium 8.1 mg/dL (8.4-10.2); Carbon Dioxide 25 mmol/L (22-29); Chloride 110 mmol/L (96-108); Estimated Glomerular Filt Rate 37; Glucose Random 86 mg/dL (60-115); Sodium 141 mmol/L (135-145); Total Protein 5.4 g/dL (6.5-8.0)
[2021-08-05 11:23] LABS: Band Neutrophils Percent 7 % (3-5); Basophils Percent Manual 2 % (0-2); Eosinophils Percent Manual 6 % (0-4); Lymphocytes Percent Manual 24 % (20-40); Monocytes Percent Manual 8 % (2-11); Neutrophils Percent Manual 53 % (45-73)
[2021-08-05 11:25] LABS: Macrocytosis 1+ (5-14) /OIF; RBC Morphology NOTED
[2021-08-05 11:26] LABS: Hypochromasia 1+ (5-14) /OIF; Large Platelet PRESENT; Platelet Estimate SLIGHTLY DECREASED (NORMAL); Platelet Morphology Comment NOTED
[2021-08-05 11:27] LABS: Ovalocytes 1+ (5-14) /OIF
[2021-08-05 11:28] LABS: Basophils Abs Manual 0.2 X10*3/uL (0.0-0.2); Eosinophils Absolute Manual 0.5 X10*3/uL (0.0-0.4); Lymphocytes Absolute Manual 2.2 X10*3/uL (1.2-4.9); Monocytes Absolute Manual 0.7 X10*3/uL (0.1-1.2); Neutrophils Absolute Manual 5.4 X10*3/uL (2.0-8.3)
== END 2021-08-05 12:47 | disposition home or self-care (01) ==
LOC: HO.LHD 12:46
PROVIDERS: Absent Provider Clinical Nurse Specialist Psychiatric/Mental Health, Adult; Visit Provider Internal Medicine Medical Oncology
DX: C90.00 Multiple myeloma not having achieved remission (principal)
CPT/HCPCS: 36415; 80053; 85007; 85027

== ENCOUNTER 2021-08-12 11:36 | Outpatient (REF) | payer MEDICARE, SELFPAY ==
[2021-08-12 09:59] LABS: MANUAL DIFF FLAG NO
[2021-08-12 10:01] LABS: Basophils Percent Auto 0.5 % (0-2); Eosinophils Absolute Auto 0.6 X10*3/uL (0.0-0.4); Eosinophils Percent Auto 9.4 % (0-4); Hematocrit 29.5 % (37.0-47.0); Hemoglobin 9.1 g/dl (12.0-16.0); Imm Gran Abs Auto 0.05 X10*3/uL (0.00-0.03); Imm Gran Pct Auto 0.8 % (0.0-0.4); Lymphocytes Absolute Auto 1.1 X10*3/uL (1.2-4.9); Lymphocytes Percent Auto 17.2 % (20-40); Mean Corpuscular HGB Conc 30.8 g/dl (31.0-35.0); Mean Corpuscular Hemoglobin 30.7 pg (27.0-33.0); Mean Corpuscular Volume 99.7 fL (80.0-98.0); Mean Platelet Volume 10.9 fL (9.4-12.3); Monocytes Absolute Auto 0.3 X10*3/uL (0.1-1.2); Monocytes Percent Auto 4.9 % (2-11); Neutrophils Absolute Auto 4.1 x10*3/uL (2.0-8.3); Neutrophils Percent Auto 67.2 % (45-73); Platelet Count 179 X10*3/uL (160-400); Red Blood Count 2.96 X10*6/uL (4.20-5.50); Red Cell Distribution Width 15.1 % (11.0-16.0); White Blood Count 6.2 X10*3/uL (4.8-10.8)
[2021-08-12 10:41] LABS: Alanine Aminotransferase 6 U/L (0-31); Albumin Level 3.2 g/dL (3.5-5.0); Alkaline Phosphatase 78 U/L (39-117); Anion Gap 13 (12-20); Aspartate Amino Transferase 9 U/L (5-31); Bilirubin Total 0.2 mg/dL (0.0-1.0); Blood Urea Nitrogen 22 mg/dL (9-16); Carbon Dioxide 23 mmol/L (22-29); Chloride 109 mmol/L (96-108); Estimated Glomerular Filt Rate 45; Glucose Random 84 mg/dL (60-115); Potassium 4.5 mmol/L (3.3-5.1); Sodium 140 mmol/L (135-145); Total Protein 5.4 g/dL (6.5-8.0)
--- NOTE | 2021-08-12 12:06 | MHC.HEMONC ---
Labs from home draw faxed to Meño Waldron for review. They were WNL for this pt.
== END 2021-08-12 11:37 | disposition home or self-care (01) ==
LOC: HO.LHD 11:36
PROVIDERS: Absent Provider Clinical Nurse Specialist Psychiatric/Mental Health, Adult; Visit Provider Internal Medicine Medical Oncology
DX: C90.00 Multiple myeloma not having achieved remission (principal)
CPT/HCPCS: 36415; 80053; 85025

== ENCOUNTER 2021-08-19 10:38 | Outpatient (REF) | payer MEDICARE, SELFPAY ==
[2021-08-19 11:08] LABS: MANUAL DIFF FLAG NO
[2021-08-19 11:14] LABS: Basophils Percent Auto 0.6 % (0-2); Eosinophils Absolute Auto 0.4 X10*3/uL (0.0-0.4); Eosinophils Percent Auto 5.4 % (0-4); Hemoglobin 10.1 g/dl (12.0-16.0); Imm Gran Abs Auto 0.04 X10*3/uL (0.00-0.03); Imm Gran Pct Auto 0.6 % (0.0-0.4); Lymphocytes Absolute Auto 1.4 X10*3/uL (1.2-4.9); Mean Corpuscular HGB Conc 30.6 g/dl (31.0-35.0); Mean Corpuscular Hemoglobin 30.5 pg (27.0-33.0); Mean Corpuscular Volume 99.7 fL (80.0-98.0); Mean Platelet Volume 12.3 fL (9.4-12.3); Monocytes Absolute Auto 0.5 X10*3/uL (0.1-1.2); Monocytes Percent Auto 7.5 % (2-11); Neutrophils Absolute Auto 4.2 x10*3/uL (2.0-8.3); Neutrophils Percent Auto 63.9 % (45-73); Platelet Count 145 X10*3/uL (160-400); Red Blood Count 3.31 X10*6/uL (4.20-5.50); Red Cell Distribution Width 14.6 % (11.0-16.0); White Blood Count 6.5 X10*3/uL (4.8-10.8)
[2021-08-19 12:02] LABS: Alanine Aminotransferase < 6 U/L (0-31); Albumin Level 3.5 g/dL (3.5-5.0); Alkaline Phosphatase 88 U/L (39-117); Anion Gap 12 (12-20); Aspartate Amino Transferase 10 U/L (5-31); Bilirubin Total 0.4 mg/dL (0.0-1.0); Blood Urea Nitrogen 18 mg/dL (9-16); Calcium 8.7 mg/dL (8.4-10.2); Carbon Dioxide 28 mmol/L (22-29); Chloride 106 mmol/L (96-108); Estimated Glomerular Filt Rate 33; Glucose Random 103 mg/dL (60-115); Potassium 3.9 mmol/L (3.3-5.1); Sodium 142 mmol/L (135-145); Total Protein 6.1 g/dL (6.5-8.0)
--- NOTE | 2021-08-19 13:11 | MHC.HEMONC ---
Labs faxed to Nicole and Yunior Waldron for review.
== END 2021-08-19 10:39 | disposition home or self-care (01) ==
LOC: HO.LHD 10:38
PROVIDERS: Absent Provider Clinical Nurse Specialist Psychiatric/Mental Health, Adult; Visit Provider Internal Medicine Medical Oncology
DX: C90.00 Multiple myeloma not having achieved remission (principal)
CPT/HCPCS: 36415; 80053; 85025

== ENCOUNTER 2021-08-26 06:04 | Outpatient (REF) | payer MEDICARE, SELFPAY ==
[2021-08-26 10:34] LABS: Hematocrit 26.8 % (37.0-47.0); Hemoglobin 8.3 g/dl (12.0-16.0); Mean Corpuscular Hemoglobin 30.7 pg (27.0-33.0); Mean Corpuscular Volume 99.3 fL (80.0-98.0); Mean Platelet Volume 12.4 fL (9.4-12.3); Red Cell Distribution Width 14.6 % (11.0-16.0); White Blood Count 2.8 X10*3/uL (4.8-10.8)
[2021-08-26 10:36] LABS: Platelet Count 87 X10*3/uL (160-400)
[2021-08-26 11:03] LABS: Band Neutrophils Percent 1 % (3-5); Basophils Abs Manual 0.1 X10*3/uL (0.0-0.2); Basophils Percent Manual 2 % (0-2); Eosinophils Absolute Manual 0.3 X10*3/uL (0.0-0.4); Eosinophils Percent Manual 9 % (0-4); Lymphocytes Percent Manual 36 % (20-40); Monocytes Absolute Manual 0.2 X10*3/uL (0.1-1.2); Monocytes Percent Manual 8 % (2-11); Neutrophils Absolute Manual 1.3 X10*3/uL (2.0-8.3); Neutrophils Percent Manual 44 % (45-73)
[2021-08-26 11:05] LABS: RBC Morphology NORMAL
[2021-08-26 11:06] LABS: Acanthocytes 1+ (0-2) /OIF; Large Platelet PRESENT; Macrocytosis 1+ (5-14) /OIF; Ovalocytes 1+ (5-14) /OIF; Platelet Estimate DECREASED (NORMAL); Platelet Morphology Comment NOTED; Polychromasia 1+ (0-2) /OIF; Tear Drop Cells 1+ (0-2) /OIF
[2021-08-26 11:29] LABS: Alanine Aminotransferase 7 U/L (0-31); Alkaline Phosphatase 78 U/L (39-117); Anion Gap 8 (12-20); Aspartate Amino Transferase 10 U/L (5-31); Bilirubin Total 0.3 mg/dL (0.0-1.0); Blood Urea Nitrogen 22 mg/dL (9-16); Calcium 7.7 mg/dL (8.4-10.2); Carbon Dioxide 27 mmol/L (22-29); Chloride 111 mmol/L (96-108); Estimated Glomerular Filt Rate 39; Glucose Random 91 mg/dL (60-115); Potassium 4.5 mmol/L (3.3-5.1); Sodium 141 mmol/L (135-145); Total Protein 5.1 g/dL (6.5-8.0)
== END 2021-08-26 06:05 | disposition home or self-care (01) ==
LOC: HO.LHD 06:04
PROVIDERS: Absent Provider Clinical Nurse Specialist Psychiatric/Mental Health, Adult; Visit Provider Internal Medicine Medical Oncology
DX: C90.00 Multiple myeloma not having achieved remission (principal)
CPT/HCPCS: 36415; 80053; 85007; 85027

== ENCOUNTER 2021-09-02 06:44 | Outpatient (REF) | payer MEDICARE, SELFPAY ==
[2021-09-02 10:44] LABS: Hematocrit 26.3 % (37.0-47.0); Hemoglobin 8.2 g/dl (12.0-16.0); Mean Corpuscular HGB Conc 31.2 g/dl (31.0-35.0); Mean Corpuscular Hemoglobin 31.1 pg (27.0-33.0); Mean Corpuscular Volume 99.6 fL (80.0-98.0); Mean Platelet Volume 11.4 fL (9.4-12.3); Platelet Count 137 X10*3/uL (160-400); Red Blood Count 2.64 X10*6/uL (4.20-5.50); White Blood Count 3.4 X10*3/uL (4.8-10.8)
[2021-09-02 11:21] LABS: Band Neutrophils Percent 2 % (3-5); Basophils Percent Manual 1 % (0-2); Eosinophils Absolute Manual 0.3 X10*3/uL (0.0-0.4); Eosinophils Percent Manual 9 % (0-4); Lymphocytes Absolute Manual 1.1 X10*3/uL (1.2-4.9); Lymphocytes Percent Manual 33 % (20-40); Monocytes Absolute Manual 0.3 X10*3/uL (0.1-1.2); Monocytes Percent Manual 8 % (2-11); Neutrophils Absolute Manual 1.7 X10*3/uL (2.0-8.3); Neutrophils Percent Manual 47 % (45-73)
[2021-09-02 11:22] LABS: Acanthocytes 1+ (0-2) /OIF; Macrocytosis 1+ (5-14) /OIF; Platelet Estimate SLIGHTLY DECREASED (NORMAL); Platelet Morphology Comment NORMAL; RBC Morphology NOTED; Tear Drop Cells 1+ (0-2) /OIF
[2021-09-02 11:23] LABS: Alanine Aminotransferase 6 U/L (0-31); Albumin Level 3.1 g/dL (3.5-5.0); Alkaline Phosphatase 82 U/L (39-117); Anion Gap 8 (12-20); Aspartate Amino Transferase 9 U/L (5-31); Bilirubin Total 0.2 mg/dL (0.0-1.0); Blood Urea Nitrogen 20 mg/dL (9-16); Calcium 8.7 mg/dL (8.4-10.2); Carbon Dioxide 30 mmol/L (22-29); Chloride 107 mmol/L (96-108); Estimated Glomerular Filt Rate 33; Glucose Random 92 mg/dL (60-115); Polychromasia 1+ (0-2) /OIF; Potassium 4.3 mmol/L (3.3-5.1); Sodium 141 mmol/L (135-145); Total Protein 5.2 g/dL (6.5-8.0)
== END 2021-09-02 06:45 | disposition home or self-care (01) ==
LOC: HO.LHD 06:44
PROVIDERS: Absent Provider Clinical Nurse Specialist Psychiatric/Mental Health, Adult; Visit Provider Internal Medicine Medical Oncology
DX: C90.00 Multiple myeloma not having achieved remission (principal)
CPT/HCPCS: 36415; 80053; 85007; 85027

== ENCOUNTER 2021-09-12 12:36 | Outpatient (REF) | payer MEDICARE, SELFPAY ==
[2021-09-12 11:12] LABS: Hematocrit 29.4 % (37.0-47.0); Mean Corpuscular HGB Conc 30.6 g/dl (31.0-35.0); Mean Corpuscular Hemoglobin 30.7 pg (27.0-33.0); Mean Corpuscular Volume 100.3 fL (80.0-98.0); Mean Platelet Volume 10.6 fL (9.4-12.3); Platelet Count 170 X10*3/uL (160-400); Red Blood Count 2.93 X10*6/uL (4.20-5.50); Red Cell Distribution Width 15.4 % (11.0-16.0); White Blood Count 4.7 X10*3/uL (4.8-10.8)
[2021-09-12 11:51] LABS: Alanine Aminotransferase 6 U/L (0-31); Albumin Level 3.3 g/dL (3.5-5.0); Alkaline Phosphatase 79 U/L (39-117); Anion Gap 10 (12-20); Aspartate Amino Transferase 11 U/L (5-31); Bilirubin Total 0.2 mg/dL (0.0-1.0); Blood Urea Nitrogen 23 mg/dL (9-16); Calcium 8.5 mg/dL (8.4-10.2); Carbon Dioxide 25 mmol/L (22-29); Chloride 111 mmol/L (96-108); Estimated Glomerular Filt Rate 34; Glucose Random 102 mg/dL (60-115); Sodium 142 mmol/L (135-145); Total Protein 5.6 g/dL (6.5-8.0)
--- NOTE | 2021-09-12 11:52 | MHC.HEMONC ---
labs faxed to Nicole and Yunior Waldron. Pt is scheduled for Denosumab today and calcium WNL.
[2021-09-12 12:23] LABS: Band Neutrophils Percent 14 % (3-5); Basophils Abs Manual 0.1 X10*3/uL (0.0-0.2); Basophils Percent Manual 2 % (0-2); Eosinophils Absolute Manual 0.2 X10*3/uL (0.0-0.4); Eosinophils Percent Manual 5 % (0-4); Lymphocytes Absolute Manual 0.8 X10*3/uL (1.2-4.9); Lymphocytes Percent Manual 17 % (20-40); Monocytes Absolute Manual 0.2 X10*3/uL (0.1-1.2); Monocytes Percent Manual 5 % (2-11); Neutrophils Absolute Manual 3.3 X10*3/uL (2.0-8.3); Neutrophils Percent Manual 57 % (45-73)
[2021-09-12 12:25] LABS: Macrocytosis 1+ (5-14) /OIF; Microcytosis 1+ (5-14) /OIF; Platelet Estimate NORMAL (NORMAL); Platelet Morphology Comment NORMAL; RBC Morphology NORMAL
== END 2021-09-12 12:37 | disposition home or self-care (01) ==
LOC: HO.LHD 12:36
PROVIDERS: Absent Provider Clinical Nurse Specialist Psychiatric/Mental Health, Adult; Visit Provider Internal Medicine Medical Oncology
DX: C90.00 Multiple myeloma not having achieved remission (principal)
CPT/HCPCS: 36415; 80053; 85007; 85027

== ENCOUNTER 2021-09-16 13:08 | Outpatient (REF) | payer MEDICARE, SELFPAY ==
[2021-09-16 11:38] LABS: Hematocrit 28.4 % (37.0-47.0); Hemoglobin 8.6 g/dl (12.0-16.0); Mean Corpuscular HGB Conc 30.3 g/dl (31.0-35.0); Mean Corpuscular Hemoglobin 30.5 pg (27.0-33.0); Mean Corpuscular Volume 100.7 fL (80.0-98.0); Platelet Count 135 X10*3/uL (160-400); Red Blood Count 2.82 X10*6/uL (4.20-5.50); Red Cell Distribution Width 15.3 % (11.0-16.0); White Blood Count 7.6 X10*3/uL (4.8-10.8)
[2021-09-16 12:01] LABS: Alanine Aminotransferase 9 U/L (0-31); Albumin Level 3.1 g/dL (3.5-5.0); Alkaline Phosphatase 75 U/L (39-117); Anion Gap 11 (12-20); Aspartate Amino Transferase 12 U/L (5-31); Bilirubin Total 0.3 mg/dL (0.0-1.0); Blood Urea Nitrogen 27 mg/dL (9-16); Calcium 8.4 mg/dL (8.4-10.2); Carbon Dioxide 25 mmol/L (22-29); Chloride 110 mmol/L (96-108); Estimated Glomerular Filt Rate 37; Glucose Random 98 mg/dL (60-115); Potassium 4.6 mmol/L (3.3-5.1); Sodium 141 mmol/L (135-145); Total Protein 5.4 g/dL (6.5-8.0)
[2021-09-16 12:12] LABS: Band Neutrophils Percent 13 % (3-5); Eosinophils Absolute Manual 0.4 X10*3/uL (0.0-0.4); Eosinophils Percent Manual 5 % (0-4); Lymphocytes Absolute Manual 0.2 X10*3/uL (1.2-4.9); Lymphocytes Percent Manual 3 % (20-40); Monocytes Absolute Manual 0.2 X10*3/uL (0.1-1.2); Monocytes Percent Manual 2 % (2-11); Neutrophils Absolute Manual 6.8 X10*3/uL (2.0-8.3); Neutrophils Percent Manual 77 % (45-73)
[2021-09-16 12:14] LABS: Platelet Estimate SLIGHTLY DECREASED (NORMAL); Platelet Morphology Comment NORMAL; RBC Morphology NORMAL
== END 2021-09-16 13:09 | disposition home or self-care (01) ==
LOC: HO.LHD 13:08
PROVIDERS: Absent Provider Clinical Nurse Specialist Psychiatric/Mental Health, Adult; Visit Provider Internal Medicine Medical Oncology
DX: C90.00 Multiple myeloma not having achieved remission (principal)
CPT/HCPCS: 36415; 80053; 85007; 85027

== ENCOUNTER 2021-09-23 06:14 | Outpatient (REF) | payer MEDICARE, SELFPAY ==
[2021-09-23 10:35] LABS: Hematocrit 28.5 % (37.0-47.0); Hemoglobin 8.6 g/dl (12.0-16.0); Mean Corpuscular HGB Conc 30.2 g/dl (31.0-35.0); Mean Corpuscular Hemoglobin 30.4 pg (27.0-33.0); Mean Corpuscular Volume 100.7 fL (80.0-98.0); Mean Platelet Volume 11.6 fL (9.4-12.3); Platelet Count 107 X10*3/uL (160-400); Red Blood Count 2.83 X10*6/uL (4.20-5.50); Red Cell Distribution Width 15.2 % (11.0-16.0)
[2021-09-23 10:36] LABS: WBC ABN SCTR FOR CBC 1; White Blood Count 4.1 X10*3/uL (4.8-10.8)
[2021-09-23 10:56] LABS: Alanine Aminotransferase 8 U/L (0-31); Albumin Level 3.2 g/dL (3.5-5.0); Alkaline Phosphatase 78 U/L (39-117); Anion Gap 9 (12-20); Aspartate Amino Transferase 9 U/L (5-31); Bilirubin Total 0.4 mg/dL (0.0-1.0); Blood Urea Nitrogen 22 mg/dL (9-16); Calcium 8.5 mg/dL (8.4-10.2); Carbon Dioxide 25 mmol/L (22-29); Chloride 112 mmol/L (96-108); Estimated Glomerular Filt Rate 47; Glucose Random 91 mg/dL (60-115); Potassium 3.9 mmol/L (3.3-5.1); Sodium 142 mmol/L (135-145); Total Protein 5.5 g/dL (6.5-8.0)
[2021-09-23 11:10] LABS: Band Neutrophils Percent 9 % (3-5); Basophils Percent Manual 1 % (0-2); Eosinophils Absolute Manual 0.5 X10*3/uL (0.0-0.4); Eosinophils Percent Manual 12 % (0-4); Lymphocytes Absolute Manual 1.2 X10*3/uL (1.2-4.9); Lymphocytes Percent Manual 29 % (20-40); Monocytes Absolute Manual 0.3 X10*3/uL (0.1-1.2); Monocytes Percent Manual 7 % (2-11); Neutrophils Absolute Manual 2.1 X10*3/uL (2.0-8.3); Neutrophils Percent Manual 42 % (45-73)
[2021-09-23 11:14] LABS: Macrocytosis 1+ (5-14) /OIF; Platelet Estimate DECREASED (NORMAL); Platelet Morphology Comment NORMAL; RBC Morphology NOTED
[2021-09-23 11:15] LABS: Hypochromasia 1+ (5-14) /OIF; Polychromasia 1+ (0-2) /OIF
== END 2021-09-23 06:15 | disposition home or self-care (01) ==
LOC: HO.LHD 06:14
PROVIDERS: Absent Provider Clinical Nurse Specialist Psychiatric/Mental Health, Adult; Visit Provider Internal Medicine Medical Oncology
DX: C90.00 Multiple myeloma not having achieved remission (principal)
CPT/HCPCS: 36415; 80053; 85007; 85027

== ENCOUNTER 2021-09-30 11:58 | Outpatient (REF) | payer OTHER, SELFPAY ==
[2021-09-30 10:44] LABS: Hematocrit 27.7 % (37.0-47.0); Hemoglobin 8.4 g/dl (12.0-16.0); Mean Corpuscular HGB Conc 30.3 g/dl (31.0-35.0); Mean Corpuscular Hemoglobin 30.4 pg (27.0-33.0); Mean Corpuscular Volume 100.4 fL (80.0-98.0); Mean Platelet Volume 11.9 fL (9.4-12.3); Platelet Count 115 X10*3/uL (160-400); Red Blood Count 2.76 X10*6/uL (4.20-5.50); Red Cell Distribution Width 15.9 % (11.0-16.0); White Blood Count 4.8 X10*3/uL (4.8-10.8)
[2021-09-30 11:11] LABS: Alanine Aminotransferase 8 U/L (0-31); Alkaline Phosphatase 72 U/L (39-117); Anion Gap 11 (12-20); Aspartate Amino Transferase 9 U/L (5-31); Bilirubin Total 0.4 mg/dL (0.0-1.0); Blood Urea Nitrogen 22 mg/dL (9-16); Calcium 8.4 mg/dL (8.4-10.2); Carbon Dioxide 24 mmol/L (22-29); Chloride 110 mmol/L (96-108); Estimated Glomerular Filt Rate 36; Glucose Random 86 mg/dL (60-115); Potassium 4.6 mmol/L (3.3-5.1); Sodium 140 mmol/L (135-145); Total Protein 5.2 g/dL (6.5-8.0)
[2021-09-30 11:13] LABS: Band Neutrophils Percent 22 % (3-5); Basophilic Stippling 1+ (0-2) /OIF; Eosinophils Absolute Manual 0.4 X10*3/uL (0.0-0.4); Eosinophils Percent Manual 8 % (0-4); Lymphocytes Absolute Manual 0.6 X10*3/uL (1.2-4.9); Lymphocytes Percent Manual 13 % (20-40); Metamyelocytes Percent 1 %; Neutrophils Absolute Manual 3.7 X10*3/uL (2.0-8.3); Neutrophils Percent Manual 56 % (45-73)
[2021-09-30 11:14] LABS: Hypochromasia 1+ (5-14) /OIF; Macrocytosis 1+ (5-14) /OIF; RBC Morphology NOTED
[2021-09-30 11:15] LABS: Platelet Estimate DECREASED (NORMAL); Platelet Morphology Comment NORMAL
== END 2021-09-30 11:59 | disposition home or self-care (01) ==
LOC: HO.LHD 11:58
PROVIDERS: Clinical Nurse Specialist Psychiatric/Mental Health, Adult; Visit Provider Internal Medicine Medical Oncology
DX: C90.00 Multiple myeloma not having achieved remission (principal)
CPT/HCPCS: 36415; 80053; 85007; 85027

== ENCOUNTER 2021-10-07 10:25 | Outpatient (REF) | payer OTHER, SELFPAY ==
[2021-10-07 09:51] LABS: Hemoglobin 8.4 g/dl (12.0-16.0); Mean Corpuscular Hemoglobin 30.4 pg (27.0-33.0); Mean Corpuscular Volume 101.4 fL (80.0-98.0); Mean Platelet Volume 11.3 fL (9.4-12.3); Platelet Count 149 X10*3/uL (160-400); Red Blood Count 2.76 X10*6/uL (4.20-5.50); Red Cell Distribution Width 16.1 % (11.0-16.0)
[2021-10-07 10:18] LABS: Band Neutrophils Percent 3 % (3-5); Basophils Abs Manual 0.1 X10*3/uL (0.0-0.2); Basophils Percent Manual 3 % (0-2); Eosinophils Absolute Manual 0.2 X10*3/uL (0.0-0.4); Eosinophils Percent Manual 4 % (0-4); Lymphocytes Absolute Manual 1.1 X10*3/uL (1.2-4.9); Lymphocytes Percent Manual 27 % (20-40); Monocytes Absolute Manual 0.1 X10*3/uL (0.1-1.2); Monocytes Percent Manual 3 % (2-11); Neutrophils Absolute Manual 2.5 X10*3/uL (2.0-8.3); Neutrophils Percent Manual 60 % (45-73)
[2021-10-07 10:19] LABS: Basophilic Stippling 1+ (0-2) /OIF; Macrocytosis 1+ (5-14) /OIF; RBC Morphology NOTED
[2021-10-07 10:20] LABS: Hypochromasia 1+ (5-14) /OIF; Platelet Estimate SLIGHTLY DECREASED (NORMAL); Platelet Morphology Comment NORMAL
[2021-10-07 11:31] LABS: Alanine Aminotransferase 8 U/L (0-31); Albumin Level 3.2 g/dL (3.5-5.0); Alkaline Phosphatase 72 U/L (39-117); Anion Gap 10 (12-20); Aspartate Amino Transferase 8 U/L (5-31); Bilirubin Total 0.4 mg/dL (0.0-1.0); Blood Urea Nitrogen 30 mg/dL (9-16); Calcium 8.7 mg/dL (8.4-10.2); Carbon Dioxide 24 mmol/L (22-29); Chloride 111 mmol/L (96-108); Estimated Glomerular Filt Rate 37; Glucose Random 99 mg/dL (60-115); Potassium 4.6 mmol/L (3.3-5.1); Sodium 140 mmol/L (135-145); Total Protein 5.3 g/dL (6.5-8.0)
== END 2021-10-07 10:26 | disposition home or self-care (01) ==
LOC: HO.LHD 10:25
PROVIDERS: Absent Provider Clinical Nurse Specialist Psychiatric/Mental Health, Adult; Visit Provider Internal Medicine Medical Oncology
DX: C90.00 Multiple myeloma not having achieved remission (principal)
CPT/HCPCS: 36415; 80053; 85007; 85027

== ENCOUNTER 2021-10-14 06:26 | Outpatient (REF) | payer OTHER, SELFPAY ==
[2021-10-14 09:14] LABS: MANUAL DIFF FLAG NO
[2021-10-14 09:21] LABS: Basophils Absolute Auto 0.1 X10*3/uL (0.0-0.2); Eosinophils Absolute Auto 0.2 X10*3/uL (0.0-0.4); Hematocrit 29.5 % (37.0-47.0); Hemoglobin 8.9 g/dl (12.0-16.0); Imm Gran Abs Auto 0.04 X10*3/uL (0.00-0.03); Imm Gran Pct Auto 0.5 % (0.0-0.4); Lymphocytes Absolute Auto 1.5 X10*3/uL (1.2-4.9); Lymphocytes Percent Auto 19.1 % (20-40); Mean Corpuscular HGB Conc 30.2 g/dl (31.0-35.0); Mean Corpuscular Hemoglobin 30.6 pg (27.0-33.0); Mean Corpuscular Volume 101.4 fL (80.0-98.0); Mean Platelet Volume 10.1 fL (9.4-12.3); Monocytes Absolute Auto 0.4 X10*3/uL (0.1-1.2); Monocytes Percent Auto 5.1 % (2-11); Neutrophils Absolute Auto 5.6 x10*3/uL (2.0-8.3); Neutrophils Percent Auto 71.3 % (45-73); Platelet Count 181 X10*3/uL (160-400); Red Blood Count 2.91 X10*6/uL (4.20-5.50); Red Cell Distribution Width 16.1 % (11.0-16.0); White Blood Count 7.8 X10*3/uL (4.8-10.8)
[2021-10-14 09:50] LABS: Alanine Aminotransferase 8 U/L (0-31); Albumin Level 3.3 g/dL (3.5-5.0); Alkaline Phosphatase 84 U/L (39-117); Anion Gap 9 (12-20); Aspartate Amino Transferase 12 U/L (5-31); Bilirubin Total 0.2 mg/dL (0.0-1.0); Blood Urea Nitrogen 23 mg/dL (9-16); Calcium 9.1 mg/dL (8.4-10.2); Carbon Dioxide 24 mmol/L (22-29); Chloride 113 mmol/L (96-108); Estimated Glomerular Filt Rate 39; Glucose Random 91 mg/dL (60-115); Potassium 4.7 mmol/L (3.3-5.1); Sodium 141 mmol/L (135-145); Total Protein 5.6 g/dL (6.5-8.0)
== END 2021-10-14 06:27 | disposition home or self-care (01) ==
LOC: HO.LHD 06:26
PROVIDERS: Visit Provider Internal Medicine Medical Oncology
DX: C90.00 Multiple myeloma not having achieved remission (principal)
CPT/HCPCS: 36415; 80053; 85025

== ENCOUNTER 2021-10-21 12:00 | Outpatient (REF) | payer OTHER, SELFPAY ==
[2021-10-21 09:50] LABS: MANUAL DIFF FLAG NO
[2021-10-21 09:52] LABS: Basophils Percent Auto 0.6 % (0-2); Eosinophils Absolute Auto 0.3 X10*3/uL (0.0-0.4); Hematocrit 32.1 % (37.0-47.0); Hemoglobin 9.7 g/dl (12.0-16.0); Imm Gran Abs Auto 0.02 X10*3/uL (0.00-0.03); Imm Gran Pct Auto 0.4 % (0.0-0.4); Lymphocytes Absolute Auto 1.3 X10*3/uL (1.2-4.9); Lymphocytes Percent Auto 24.2 % (20-40); Mean Corpuscular HGB Conc 30.2 g/dl (31.0-35.0); Mean Corpuscular Hemoglobin 30.2 pg (27.0-33.0); Mean Platelet Volume 11.2 fL (9.4-12.3); Monocytes Absolute Auto 0.4 X10*3/uL (0.1-1.2); Monocytes Percent Auto 7.1 % (2-11); Neutrophils Absolute Auto 3.3 x10*3/uL (2.0-8.3); Neutrophils Percent Auto 61.7 % (45-73); Platelet Count 163 X10*3/uL (160-400); Red Blood Count 3.21 X10*6/uL (4.20-5.50); Red Cell Distribution Width 15.4 % (11.0-16.0); White Blood Count 5.3 X10*3/uL (4.8-10.8)
[2021-10-21 10:32] LABS: Alanine Aminotransferase 8 U/L (0-31); Albumin Level 3.5 g/dL (3.5-5.0); Alkaline Phosphatase 92 U/L (39-117); Anion Gap 11 (12-20); Aspartate Amino Transferase 11 U/L (5-31); Bilirubin Total 0.2 mg/dL (0.0-1.0); Blood Urea Nitrogen 29 mg/dL (9-16); Calcium 9.3 mg/dL (8.4-10.2); Carbon Dioxide 26 mmol/L (22-29); Chloride 108 mmol/L (96-108); Estimated Glomerular Filt Rate 39; Glucose Random 97 mg/dL (60-115); Potassium 4.1 mmol/L (3.3-5.1); Sodium 141 mmol/L (135-145); Total Protein 5.9 g/dL (6.5-8.0)
== END 2021-10-21 12:01 | disposition home or self-care (01) ==
LOC: HO.LHD 12:00
PROVIDERS: Absent Provider Clinical Nurse Specialist Psychiatric/Mental Health, Adult; Visit Provider Internal Medicine Medical Oncology
DX: C90.00 Multiple myeloma not having achieved remission (principal)
CPT/HCPCS: 36415; 80053; 85025

== ENCOUNTER 2021-10-28 12:24 | Outpatient (REF) | payer OTHER, SELFPAY ==
[2021-10-28 11:14] LABS: MANUAL DIFF FLAG NO
[2021-10-28 11:17] LABS: Basophils Percent Auto 0.7 % (0-2); Eosinophils Absolute Auto 0.4 X10*3/uL (0.0-0.4); Eosinophils Percent Auto 9.7 % (0-4); Hematocrit 30.3 % (37.0-47.0); Hemoglobin 9.3 g/dl (12.0-16.0); Imm Gran Abs Auto 0.02 X10*3/uL (0.00-0.03); Imm Gran Pct Auto 0.5 % (0.0-0.4); Lymphocytes Absolute Auto 0.9 X10*3/uL (1.2-4.9); Lymphocytes Percent Auto 22.8 % (20-40); Mean Corpuscular HGB Conc 30.7 g/dl (31.0-35.0); Mean Corpuscular Hemoglobin 30.4 pg (27.0-33.0); Mean Platelet Volume 11.5 fL (9.4-12.3); Monocytes Absolute Auto 0.3 X10*3/uL (0.1-1.2); Neutrophils Absolute Auto 2.5 x10*3/uL (2.0-8.3); Neutrophils Percent Auto 59.3 % (45-73); Platelet Count 153 X10*3/uL (160-400); Red Blood Count 3.06 X10*6/uL (4.20-5.50); Red Cell Distribution Width 15.1 % (11.0-16.0); White Blood Count 4.1 X10*3/uL (4.8-10.8)
[2021-10-28 11:49] LABS: Alanine Aminotransferase 6 U/L (0-31); Albumin Level 3.3 g/dL (3.5-5.0); Alkaline Phosphatase 69 U/L (39-117); Anion Gap 11 (12-20); Aspartate Amino Transferase 10 U/L (5-31); Bilirubin Total 0.3 mg/dL (0.0-1.0); Blood Urea Nitrogen 22 mg/dL (9-16); Carbon Dioxide 25 mmol/L (22-29); Chloride 108 mmol/L (96-108); Estimated Glomerular Filt Rate 37; Glucose Random 85 mg/dL (60-115); Potassium 4.2 mmol/L (3.3-5.1); Sodium 140 mmol/L (135-145); Total Protein 5.6 g/dL (6.5-8.0)
== END 2021-10-28 12:25 | disposition home or self-care (01) ==
LOC: HO.LHD 12:24
PROVIDERS: Absent Provider Clinical Nurse Specialist Psychiatric/Mental Health, Adult; Visit Provider Internal Medicine Medical Oncology
DX: C90.00 Multiple myeloma not having achieved remission (principal)
CPT/HCPCS: 36415; 80053; 85025

== ENCOUNTER 2021-11-04 13:51 | Outpatient (REF) | payer OTHER, SELFPAY ==
[2021-11-04 10:01] LABS: MANUAL DIFF FLAG NO
[2021-11-04 10:04] LABS: Basophils Percent Auto 0.3 % (0-2); Eosinophils Absolute Auto 0.4 X10*3/uL (0.0-0.4); Eosinophils Percent Auto 6.5 % (0-4); Hematocrit 34.6 % (37.0-47.0); Hemoglobin 10.6 g/dl (12.0-16.0); Imm Gran Abs Auto 0.06 X10*3/uL (0.00-0.03); Lymphocytes Absolute Auto 1.3 X10*3/uL (1.2-4.9); Lymphocytes Percent Auto 21.6 % (20-40); Mean Corpuscular HGB Conc 30.6 g/dl (31.0-35.0); Mean Corpuscular Hemoglobin 30.1 pg (27.0-33.0); Mean Corpuscular Volume 98.3 fL (80.0-98.0); Monocytes Absolute Auto 0.5 X10*3/uL (0.1-1.2); Monocytes Percent Auto 7.7 % (2-11); Neutrophils Absolute Auto 3.9 x10*3/uL (2.0-8.3); Neutrophils Percent Auto 62.9 % (45-73); Platelet Count 112 X10*3/uL (160-400); Red Blood Count 3.52 X10*6/uL (4.20-5.50); Red Cell Distribution Width 14.6 % (11.0-16.0); White Blood Count 6.2 X10*3/uL (4.8-10.8)
[2021-11-04 10:51] LABS: Alanine Aminotransferase 7 U/L (0-31); Albumin Level 3.6 g/dL (3.5-5.0); Alkaline Phosphatase 80 U/L (39-117); Anion Gap 10 (12-20); Aspartate Amino Transferase 11 U/L (5-31); Bilirubin Total 0.3 mg/dL (0.0-1.0); Blood Urea Nitrogen 22 mg/dL (9-16); Calcium 8.5 mg/dL (8.4-10.2); Carbon Dioxide 25 mmol/L (22-29); Chloride 109 mmol/L (96-108); Estimated Glomerular Filt Rate 36; Glucose Random 102 mg/dL (60-115); Potassium 3.7 mmol/L (3.3-5.1); Sodium 140 mmol/L (135-145); Total Protein 6.2 g/dL (6.5-8.0)
== END 2021-11-04 13:52 | disposition home or self-care (01) ==
LOC: HO.LHD 13:51
PROVIDERS: Visit Provider Internal Medicine Medical Oncology
DX: C90.00 Multiple myeloma not having achieved remission (principal)
CPT/HCPCS: 36415; 80053; 85025

== ENCOUNTER 2021-11-11 14:36 | Outpatient (REF) | payer OTHER, SELFPAY ==
[2021-11-11 11:06] LABS: Hematocrit 29.6 % (37.0-47.0); Hemoglobin 9.4 g/dl (12.0-16.0); Mean Corpuscular HGB Conc 31.8 g/dl (31.0-35.0); Mean Corpuscular Hemoglobin 30.3 pg (27.0-33.0); Mean Corpuscular Volume 95.5 fL (80.0-98.0); Mean Platelet Volume 10.9 fL (9.4-12.3); Red Cell Distribution Width 14.4 % (11.0-16.0); White Blood Count 3.8 X10*3/uL (4.8-10.8)
[2021-11-11 11:50] LABS: Alanine Aminotransferase 7 U/L (0-31); Albumin Level 3.1 g/dL (3.5-5.0); Alkaline Phosphatase 64 U/L (39-117); Anion Gap 9 (12-20); Aspartate Amino Transferase 8 U/L (5-31); Bilirubin Total 0.3 mg/dL (0.0-1.0); Blood Urea Nitrogen 29 mg/dL (9-16); Calcium 8.6 mg/dL (8.4-10.2); Carbon Dioxide 26 mmol/L (22-29); Chloride 108 mmol/L (96-108); Estimated Glomerular Filt Rate 46; Glucose Random 89 mg/dL (60-115); Potassium 4.4 mmol/L (3.3-5.1); Sodium 139 mmol/L (135-145); Total Protein 5.4 g/dL (6.5-8.0)
[2021-11-11 12:07] LABS: Band Neutrophils Percent 10 % (3-5); Eosinophils Absolute Manual 0.3 X10*3/uL (0.0-0.4); Eosinophils Percent Manual 8 % (0-4); Lymphocytes Percent Manual 25 % (20-40); Monocytes Absolute Manual 0.2 X10*3/uL (0.1-1.2); Monocytes Percent Manual 5 % (2-11); Neutrophils Absolute Manual 2.4 X10*3/uL (2.0-8.3); Neutrophils Percent Manual 52 % (45-73)
[2021-11-11 12:08] LABS: Hypochromasia 1+ (5-14) /OIF; RBC Morphology NOTED
[2021-11-11 12:09] LABS: Ovalocytes 1+ (5-14) /OIF
[2021-11-11 12:10] LABS: Platelet Estimate DECREASED (NORMAL); Platelet Morphology Comment NORMAL
[2021-11-11 12:19] LABS: Platelet Count 86 X10*3/uL (160-400)
== END 2021-11-11 14:37 | disposition home or self-care (01) ==
LOC: HO.LHD 14:36
PROVIDERS: Absent Provider Clinical Nurse Specialist Psychiatric/Mental Health, Adult; Visit Provider Internal Medicine Medical Oncology
DX: C90.00 Multiple myeloma not having achieved remission (principal)
CPT/HCPCS: 36415; 80053; 85007; 85027

== ENCOUNTER 2021-11-18 13:46 | Outpatient (REF) | payer OTHER, SELFPAY ==
[2021-11-18 10:20] LABS: Hematocrit 27.7 % (37.0-47.0); Hemoglobin 8.7 g/dl (12.0-16.0); Mean Corpuscular HGB Conc 31.4 g/dl (31.0-35.0); Mean Corpuscular Hemoglobin 30.7 pg (27.0-33.0); Mean Corpuscular Volume 97.9 fL (80.0-98.0); Mean Platelet Volume 10.7 fL (9.4-12.3); Platelet Count 140 X10*3/uL (160-400); Red Blood Count 2.83 X10*6/uL (4.20-5.50); Red Cell Distribution Width 14.7 % (11.0-16.0); White Blood Count 6.3 X10*3/uL (4.8-10.8)
[2021-11-18 10:38] LABS: Alanine Aminotransferase 8 U/L (0-31); Alkaline Phosphatase 65 U/L (39-117); Anion Gap 10 (12-20); Aspartate Amino Transferase 10 U/L (5-31); Bilirubin Total 0.3 mg/dL (0.0-1.0); Blood Urea Nitrogen 23 mg/dL (9-16); Calcium 8.2 mg/dL (8.4-10.2); Carbon Dioxide 26 mmol/L (22-29); Chloride 111 mmol/L (96-108); Estimated Glomerular Filt Rate 37; Glucose Random 87 mg/dL (60-115); Potassium 4.6 mmol/L (3.3-5.1); Sodium 142 mmol/L (135-145); Total Protein 5.3 g/dL (6.5-8.0)
[2021-11-18 10:57] LABS: Band Neutrophils Percent 15 % (3-5); Basophils Abs Manual 0.1 X10*3/uL (0.0-0.2); Basophils Percent Manual 2 % (0-2); Eosinophils Absolute Manual 0.4 X10*3/uL (0.0-0.4); Eosinophils Percent Manual 6 % (0-4); Lymphocytes Absolute Manual 1.1 X10*3/uL (1.2-4.9); Lymphocytes Percent Manual 18 % (20-40); Monocytes Absolute Manual 0.2 X10*3/uL (0.1-1.2); Monocytes Percent Manual 3 % (2-11); Neutrophils Absolute Manual 4.5 X10*3/uL (2.0-8.3); Neutrophils Percent Manual 56 % (45-73)
[2021-11-18 11:02] LABS: Large Platelet PRESENT; Ovalocytes 1+ (5-14) /OIF; Platelet Estimate DECREASED (NORMAL); Platelet Morphology Comment NOTED; RBC Morphology NOTED; Stomatocytes 1+ (5-14) /OIF
[2021-11-18 11:03] LABS: Basophilic Stippling 1+ (0-2) /OIF; Hypochromasia 1+ (5-14) /OIF; Polychromasia 1+ (0-2) /OIF
== END 2021-11-18 13:47 | disposition home or self-care (01) ==
LOC: HO.LHD 13:46
PROVIDERS: Absent Provider Clinical Nurse Specialist Psychiatric/Mental Health, Adult; Visit Provider Internal Medicine Medical Oncology
DX: C90.00 Multiple myeloma not having achieved remission (principal)
CPT/HCPCS: 36415; 80053; 85007; 85027

== ENCOUNTER 2021-11-25 14:12 | Outpatient (REF) | payer OTHER, SELFPAY ==
[2021-11-25 11:30] LABS: Mean Corpuscular Hemoglobin 30.3 pg (27.0-33.0); Mean Corpuscular Volume 97.6 fL (80.0-98.0); Platelet Count 176 X10*3/uL (160-400); Red Blood Count 2.97 X10*6/uL (4.20-5.50); White Blood Count 9.6 X10*3/uL (4.8-10.8)
[2021-11-25 11:59] LABS: Alanine Aminotransferase 7 U/L (0-31); Albumin Level 3.3 g/dL (3.5-5.0); Alkaline Phosphatase 75 U/L (39-117); Anion Gap 9 (12-20); Aspartate Amino Transferase 8 U/L (5-31); Bilirubin Total 0.2 mg/dL (0.0-1.0); Blood Urea Nitrogen 26 mg/dL (9-16); Calcium 8.5 mg/dL (8.4-10.2); Carbon Dioxide 25 mmol/L (22-29); Chloride 110 mmol/L (96-108); Estimated Glomerular Filt Rate 33; Glucose Random 114 mg/dL (60-115); Potassium 3.8 mmol/L (3.3-5.1); Sodium 140 mmol/L (135-145); Total Protein 5.6 g/dL (6.5-8.0)
[2021-11-25 13:16] LABS: Band Neutrophils Percent 13 % (3-5); Basophils Abs Manual 0.1 X10*3/uL (0.0-0.2); Basophils Percent Manual 1 % (0-2); Eosinophils Absolute Manual 0.3 X10*3/uL (0.0-0.4); Eosinophils Percent Manual 3 % (0-4); Lymphocytes Percent Manual 21 % (20-40); Monocytes Absolute Manual 0.5 X10*3/uL (0.1-1.2); Monocytes Percent Manual 5 % (2-11); Neutrophils Absolute Manual 6.7 X10*3/uL (2.0-8.3); Neutrophils Percent Manual 57 % (45-73)
[2021-11-25 13:18] LABS: Tear Drop Cells 1+ (0-2) /OIF
[2021-11-25 13:19] LABS: Macrocytosis 1+ (5-14) /OIF; RBC Morphology NOTED
[2021-11-25 13:20] LABS: Basophilic Stippling 1+ (0-2) /OIF; Hypochromasia 1+ (5-14) /OIF; Polychromasia 1+ (0-2) /OIF
[2021-11-25 13:21] LABS: Dohle Bodies PRES; Platelet Estimate NORMAL (NORMAL); Platelet Morphology Comment NORMAL
== END 2021-11-25 14:13 | disposition home or self-care (01) ==
LOC: HO.LHD 14:12
PROVIDERS: Absent Provider Clinical Nurse Specialist Psychiatric/Mental Health, Adult; Visit Provider Internal Medicine Medical Oncology
DX: C90.00 Multiple myeloma not having achieved remission (principal)
CPT/HCPCS: 36415; 80053; 85007; 85027

== ENCOUNTER 2021-12-02 05:59 | Outpatient (REF) | payer OTHER, SELFPAY ==
[2021-12-02 10:23] LABS: Hematocrit 32.3 % (37.0-47.0); Hemoglobin 10.2 g/dl (12.0-16.0); Mean Corpuscular HGB Conc 31.6 g/dl (31.0-35.0); Mean Corpuscular Hemoglobin 30.8 pg (27.0-33.0); Mean Corpuscular Volume 97.6 fL (80.0-98.0); Mean Platelet Volume 11.1 fL (9.4-12.3); Platelet Count 151 X10*3/uL (160-400); Red Blood Count 3.31 X10*6/uL (4.20-5.50); Red Cell Distribution Width 14.9 % (11.0-16.0); White Blood Count 5.8 X10*3/uL (4.8-10.8)
[2021-12-02 10:47] LABS: Alanine Aminotransferase 6 U/L (0-31); Albumin Level 3.4 g/dL (3.5-5.0); Alkaline Phosphatase 80 U/L (39-117); Anion Gap 9 (12-20); Aspartate Amino Transferase 10 U/L (5-31); Bilirubin Total < 0.2 mg/dL (0.0-1.0); Blood Urea Nitrogen 19 mg/dL (9-16); Carbon Dioxide 29 mmol/L (22-29); Chloride 108 mmol/L (96-108); Estimated Glomerular Filt Rate 39; Glucose Random 101 mg/dL (60-115); Potassium 4.4 mmol/L (3.3-5.1); Sodium 142 mmol/L (135-145); Total Protein 5.8 g/dL (6.5-8.0)
[2021-12-02 11:04] LABS: Band Neutrophils Percent 3 % (3-5); Eosinophils Absolute Manual 0.2 X10*3/uL (0.0-0.4); Eosinophils Percent Manual 4 % (0-4); Lymphocytes Absolute Manual 0.8 X10*3/uL (1.2-4.9); Lymphocytes Percent Manual 13 % (20-40); Monocytes Absolute Manual 0.2 X10*3/uL (0.1-1.2); Monocytes Percent Manual 4 % (2-11); Neutrophils Absolute Manual 4.6 X10*3/uL (2.0-8.3); Neutrophils Percent Manual 76 % (45-73)
[2021-12-02 11:07] LABS: Acanthocytes 1+ (0-2) /OIF; Large Platelet PRESENT; Macrocytosis 1+ (5-14) /OIF; Platelet Estimate SLIGHTLY DECREASED (NORMAL); Platelet Morphology Comment NOTED; RBC Morphology NOTED
[2021-12-02 11:08] LABS: Hypochromasia 1+ (5-14) /OIF; Ovalocytes 1+ (5-14) /OIF; Polychromasia 1+ (0-2) /OIF
[2021-12-06 11:55] LABS: Kappa Light Chain, Free Serum 23.9 mg/L (3.3-19.4); Kappa/Lambda Lt Ch Free Ratio 1.12 (0.26-1.65); Lambda Light Chain, Free Serum 21.4 mg/L (5.7-26.3)
[2021-12-08 10:37] LABS: IgA 176 mg/dL (70-320); IgG 998 mg/dL (600-1540); IgM 35 mg/dL (50-300)
== END 2021-12-02 06:00 | disposition home or self-care (01) ==
LOC: HO.LHD 05:59
PROVIDERS: Absent Provider Clinical Nurse Specialist Psychiatric/Mental Health, Adult; Visit Provider Internal Medicine Medical Oncology
DX: C90.00 Multiple myeloma not having achieved remission (principal)
CPT/HCPCS: 36415; 80053; 82784; 83521; 85007; 85027; 86334

== ENCOUNTER 2021-12-09 14:52 | Outpatient (REF) | payer OTHER, SELFPAY ==
[2021-12-09 12:21] LABS: Hematocrit 30.3 % (37.0-47.0); Hemoglobin 9.2 g/dl (12.0-16.0); Mean Corpuscular HGB Conc 30.4 g/dl (31.0-35.0); Mean Corpuscular Hemoglobin 29.7 pg (27.0-33.0); Mean Corpuscular Volume 97.7 fL (80.0-98.0); Red Cell Distribution Width 14.6 % (11.0-16.0); White Blood Count 4.4 X10*3/uL (4.8-10.8)
[2021-12-09 12:22] LABS: Platelet Count 85 X10*3/uL (160-400)
[2021-12-09 13:03] LABS: Alanine Aminotransferase 6 U/L (0-31); Albumin Level 3.1 g/dL (3.5-5.0); Alkaline Phosphatase 65 U/L (39-117); Anion Gap 13 (12-20); Aspartate Amino Transferase 8 U/L (5-31); Bilirubin Total 0.2 mg/dL (0.0-1.0); Blood Urea Nitrogen 20 mg/dL (9-16); Calcium 8.4 mg/dL (8.4-10.2); Carbon Dioxide 22 mmol/L (22-29); Chloride 113 mmol/L (96-108); Estimated Glomerular Filt Rate 39; Glucose Random 86 mg/dL (60-115); Potassium 3.9 mmol/L (3.3-5.1); Sodium 144 mmol/L (135-145); Total Protein 5.2 g/dL (6.5-8.0)
[2021-12-09 13:29] LABS: Band Neutrophils Percent 15 % (3-5); Eosinophils Absolute Manual 0.3 X10*3/uL (0.0-0.4); Eosinophils Percent Manual 7 % (0-4); Lymphocytes Percent Manual 22 % (20-40); Monocytes Absolute Manual 0.3 X10*3/uL (0.1-1.2); Monocytes Percent Manual 6 % (2-11); Neutrophils Absolute Manual 2.9 X10*3/uL (2.0-8.3); Neutrophils Percent Manual 50 % (45-73)
[2021-12-09 13:31] LABS: RBC Morphology NOTED
[2021-12-09 13:32] LABS: Acanthocytes 1+ (0-2) /OIF; Hypochromasia 1+ (5-14) /OIF; Large Platelet PRESENT; Ovalocytes 1+ (5-14) /OIF; Platelet Estimate DECREASED (NORMAL); Platelet Morphology Comment NOTED; Polychromasia 1+ (0-2) /OIF
== END 2021-12-09 14:53 | disposition home or self-care (01) ==
LOC: HO.LHD 14:52
PROVIDERS: Absent Provider Clinical Nurse Specialist Psychiatric/Mental Health, Adult; Visit Provider Internal Medicine Medical Oncology
DX: C90.00 Multiple myeloma not having achieved remission (principal)
CPT/HCPCS: 36415; 80053; 85007; 85027

== ENCOUNTER 2021-12-16 14:21 | Outpatient (REF) | payer OTHER, SELFPAY ==
[2021-12-16 13:41] LABS: Hematocrit 28.7 % (37.0-47.0); Hemoglobin 8.9 g/dl (12.0-16.0); Mean Corpuscular Hemoglobin 29.8 pg (27.0-33.0); Mean Platelet Volume 12.1 fL (9.4-12.3); Platelet Count 85 X10*3/uL (160-400); Red Blood Count 2.99 X10*6/uL (4.20-5.50); Red Cell Distribution Width 14.4 % (11.0-16.0); White Blood Count 4.2 X10*3/uL (4.8-10.8)
[2021-12-16 14:07] LABS: Band Neutrophils Percent 11 % (3-5); Basophils Percent Manual 1 % (0-2); Eosinophils Absolute Manual 0.3 X10*3/uL (0.0-0.4); Eosinophils Percent Manual 8 % (0-4); Lymphocytes Absolute Manual 0.9 X10*3/uL (1.2-4.9); Lymphocytes Percent Manual 22 % (20-40); Monocytes Absolute Manual 0.3 X10*3/uL (0.1-1.2); Monocytes Percent Manual 7 % (2-11); Neutrophils Absolute Manual 2.6 X10*3/uL (2.0-8.3); Neutrophils Percent Manual 51 % (45-73)
[2021-12-16 14:08] LABS: Alanine Aminotransferase 7 U/L (0-31); Alkaline Phosphatase 60 U/L (39-117); Anion Gap 12 (12-20); Aspartate Amino Transferase 9 U/L (5-31); Bilirubin Total 0.3 mg/dL (0.0-1.0); Blood Urea Nitrogen 25 mg/dL (9-16); Calcium 9.4 mg/dL (8.4-10.2); Carbon Dioxide 26 mmol/L (22-29); Chloride 105 mmol/L (96-108); Estimated Glomerular Filt Rate 39; Glucose Random 87 mg/dL (60-115); Potassium 3.9 mmol/L (3.3-5.1); Sodium 139 mmol/L (135-145); Total Protein 5.1 g/dL (6.5-8.0)
[2021-12-16 14:09] LABS: Hypochromasia 1+ (5-14) /OIF; Ovalocytes 1+ (5-14) /OIF; Platelet Estimate DECREASED (NORMAL); Platelet Morphology Comment NORMAL; RBC Morphology NOTED
== END 2021-12-16 14:22 | disposition home or self-care (01) ==
LOC: HO.LHD 14:21
PROVIDERS: Visit Provider Internal Medicine Medical Oncology
DX: C90.00 Multiple myeloma not having achieved remission (principal)
CPT/HCPCS: 36415; 80053; 85007; 85027

== ENCOUNTER 2021-12-23 05:49 | Outpatient (REF) | payer OTHER, SELFPAY ==
[2021-12-23 10:43] LABS: Hematocrit 29.6 % (37.0-47.0); Hemoglobin 9.1 g/dl (12.0-16.0); Mean Corpuscular HGB Conc 30.7 g/dl (31.0-35.0); Mean Corpuscular Hemoglobin 29.6 pg (27.0-33.0); Mean Corpuscular Volume 96.4 fL (80.0-98.0); Mean Platelet Volume 10.1 fL (9.4-12.3); Platelet Count 146 X10*3/uL (160-400); Red Blood Count 3.07 X10*6/uL (4.20-5.50); Red Cell Distribution Width 14.9 % (11.0-16.0); White Blood Count 4.5 X10*3/uL (4.8-10.8)
[2021-12-23 11:29] LABS: Band Neutrophils Percent 0 % (3-5); Eosinophils Absolute Manual 0.2 X10*3/uL (0.0-0.4); Eosinophils Percent Manual 5 % (0-4); Lymphocytes Absolute Manual 1.2 X10*3/uL (1.2-4.9); Lymphocytes Percent Manual 26 % (20-40); Monocytes Absolute Manual 0.4 X10*3/uL (0.1-1.2); Monocytes Percent Manual 8 % (2-11); Neutrophils Absolute Manual 2.7 X10*3/uL (2.0-8.3); Neutrophils Percent Manual 61 % (45-73)
[2021-12-23 11:31] LABS: Hypochromasia 1+ (5-14) /OIF; RBC Morphology NOTED
[2021-12-23 11:34] LABS: Macrocytosis 1+ (5-14) /OIF
[2021-12-23 11:35] LABS: Platelet Estimate SLIGHTLY DECREASED (NORMAL); Platelet Morphology Comment NORMAL; Tear Drop Cells 1+ (0-2) /OIF
[2021-12-23 11:40] LABS: Alanine Aminotransferase 14 U/L (0-31); Albumin Level 3.2 g/dL (3.5-5.0); Alkaline Phosphatase 66 U/L (39-117); Anion Gap 11 (12-20); Aspartate Amino Transferase 11 U/L (5-31); Bilirubin Total 0.2 mg/dL (0.0-1.0); Blood Urea Nitrogen 30 mg/dL (9-16); Calcium 7.8 mg/dL (8.4-10.2); Carbon Dioxide 25 mmol/L (22-29); Chloride 109 mmol/L (96-108); Estimated Glomerular Filt Rate 34; Glucose Random 119 mg/dL (60-115); Potassium 4.3 mmol/L (3.3-5.1); Sodium 141 mmol/L (135-145); Total Protein 5.2 g/dL (6.5-8.0)
== END 2021-12-23 05:50 | disposition home or self-care (01) ==
LOC: HO.LHD 05:49
PROVIDERS: Absent Provider Clinical Nurse Specialist Psychiatric/Mental Health, Adult; Visit Provider Internal Medicine Medical Oncology
DX: C90.00 Multiple myeloma not having achieved remission (principal)
CPT/HCPCS: 36415; 80053; 85007; 85025; 85027

== ENCOUNTER 2021-12-30 05:52 | Outpatient (REF) | payer OTHER, SELFPAY ==
[2021-12-30 10:00] LABS: Hematocrit 29.5 % (37.0-47.0); Mean Corpuscular HGB Conc 30.5 g/dl (31.0-35.0); Mean Corpuscular Hemoglobin 29.8 pg (27.0-33.0); Mean Corpuscular Volume 97.7 fL (80.0-98.0); Mean Platelet Volume 9.6 fL (9.4-12.3); Platelet Count 148 X10*3/uL (160-400); Red Blood Count 3.02 X10*6/uL (4.20-5.50); Red Cell Distribution Width 15.8 % (11.0-16.0); White Blood Count 3.9 X10*3/uL (4.8-10.8)
[2021-12-30 10:19] LABS: Band Neutrophils Percent 5 % (3-5); Eosinophils Absolute Manual 0.2 X10*3/uL (0.0-0.4); Eosinophils Percent Manual 6 % (0-4); Lymphocytes Percent Manual 26 % (20-40); Monocytes Absolute Manual 0.2 X10*3/uL (0.1-1.2); Monocytes Percent Manual 6 % (2-11); Neutrophils Absolute Manual 2.4 X10*3/uL (2.0-8.3); Neutrophils Percent Manual 57 % (45-73)
[2021-12-30 10:20] LABS: Hypochromasia 1+ (5-14) /OIF; Ovalocytes 1+ (5-14) /OIF; Platelet Estimate SLIGHTLY DECREASED (NORMAL); Platelet Morphology Comment NORMAL; RBC Morphology NOTED
[2021-12-30 10:59] LABS: Alanine Aminotransferase 7 U/L (0-31); Albumin Level 3.3 g/dL (3.5-5.0); Alkaline Phosphatase 78 U/L (39-117); Anion Gap 9 (12-20); Aspartate Amino Transferase 9 U/L (5-31); Bilirubin Total 0.2 mg/dL (0.0-1.0); Blood Urea Nitrogen 26 mg/dL (9-16); Calcium 8.3 mg/dL (8.4-10.2); Carbon Dioxide 24 mmol/L (22-29); Chloride 111 mmol/L (96-108); Estimated Glomerular Filt Rate 36; Glucose Random 118 mg/dL (60-115); Potassium 4.3 mmol/L (3.3-5.1); Sodium 140 mmol/L (135-145); Total Protein 5.5 g/dL (6.5-8.0)
== END 2021-12-30 05:53 | disposition home or self-care (01) ==
LOC: HO.LHD 05:52
PROVIDERS: Visit Provider Internal Medicine Medical Oncology
DX: C90.00 Multiple myeloma not having achieved remission (principal)
CPT/HCPCS: 36415; 80053; 85007; 85025; 85027

== ENCOUNTER 2022-01-06 05:56 | Outpatient (REF) | payer OTHER, SELFPAY ==
[2022-01-06 10:52] LABS: MANUAL DIFF FLAG NO
[2022-01-06 11:01] LABS: Basophils Percent Auto 0.9 % (0-2); Eosinophils Absolute Auto 0.3 X10*3/uL (0.0-0.4); Eosinophils Percent Auto 6.2 % (0-4); Hematocrit 28.3 % (37.0-47.0); Hemoglobin 8.9 g/dl (12.0-16.0); Imm Gran Abs Auto 0.04 X10*3/uL (0.00-0.03); Imm Gran Pct Auto 0.9 % (0.0-0.4); Lymphocytes Absolute Auto 0.9 X10*3/uL (1.2-4.9); Lymphocytes Percent Auto 20.6 % (20-40); Mean Corpuscular HGB Conc 31.4 g/dl (31.0-35.0); Mean Corpuscular Hemoglobin 30.5 pg (27.0-33.0); Mean Corpuscular Volume 96.9 fL (80.0-98.0); Mean Platelet Volume 11.9 fL (9.4-12.3); Monocytes Absolute Auto 0.4 X10*3/uL (0.1-1.2); Neutrophils Absolute Auto 2.9 x10*3/uL (2.0-8.3); Neutrophils Percent Auto 63.4 % (45-73); Platelet Count 103 X10*3/uL (160-400); Red Blood Count 2.92 X10*6/uL (4.20-5.50); Red Cell Distribution Width 15.7 % (11.0-16.0); White Blood Count 4.5 X10*3/uL (4.8-10.8)
[2022-01-06 11:45] LABS: Alanine Aminotransferase 6 U/L (0-31); Albumin Level 3.2 g/dL (3.5-5.0); Alkaline Phosphatase 77 U/L (39-117); Anion Gap 10 (12-20); Aspartate Amino Transferase 8 U/L (5-31); Bilirubin Total 0.3 mg/dL (0.0-1.0); Blood Urea Nitrogen 22 mg/dL (9-16); Calcium 8.1 mg/dL (8.4-10.2); Carbon Dioxide 25 mmol/L (22-29); Chloride 110 mmol/L (96-108); Estimated Glomerular Filt Rate 36; Glucose Random 93 mg/dL (60-115); Potassium 4.2 mmol/L (3.3-5.1); Sodium 141 mmol/L (135-145)
[2022-01-06 11:52] LABS: Total Protein 5.3 g/dL (6.5-8.0)
== END 2022-01-06 05:57 | disposition home or self-care (01) ==
LOC: HO.LHD 05:56
PROVIDERS: Visit Provider Internal Medicine Medical Oncology
DX: C90.00 Multiple myeloma not having achieved remission (principal)
CPT/HCPCS: 36415; 80053; 85025

== ENCOUNTER 2022-01-13 14:45 | Outpatient (REF) | payer OTHER, SELFPAY ==
[2022-01-13 11:31] LABS: Basophils Percent Auto 1.4 % (0-2); Eosinophils Absolute Auto 0.4 X10*3/uL (0.0-0.4); Eosinophils Percent Auto 17.5 % (0-4); Hematocrit 28.9 % (37.0-47.0); Hemoglobin 8.9 g/dl (12.0-16.0); Imm Gran Abs Auto 0.02 X10*3/uL (0.00-0.03); Imm Gran Pct Auto 0.9 % (0.0-0.4); Lymphocytes Absolute Auto 0.9 X10*3/uL (1.2-4.9); Lymphocytes Percent Auto 42.4 % (20-40); MANUAL DIFF FLAG SCAN; Mean Corpuscular HGB Conc 30.8 g/dl (31.0-35.0); Mean Corpuscular Hemoglobin 29.5 pg (27.0-33.0); Mean Corpuscular Volume 95.7 fL (80.0-98.0); Mean Platelet Volume 11.8 fL (9.4-12.3); Monocytes Absolute Auto 0.2 X10*3/uL (0.1-1.2); Monocytes Percent Auto 10.1 % (2-11); Neutrophils Absolute Auto 0.6 x10*3/uL (2.0-8.3); Neutrophils Percent Auto 27.7 % (45-73); Platelet Count 114 X10*3/uL (160-400); Red Blood Count 3.02 X10*6/uL (4.20-5.50); Red Cell Distribution Width 15.4 % (11.0-16.0); SCAN SMEAR FLAG 1
[2022-01-13 11:32] LABS: White Blood Count 2.2 X10*3/uL (4.8-10.8)
[2022-01-13 11:54] LABS: SLIDE REVIEW VERIFIED
[2022-01-13 12:00] LABS: Alanine Aminotransferase 6 U/L (0-31); Albumin Level 3.3 g/dL (3.5-5.0); Alkaline Phosphatase 67 U/L (39-117); Anion Gap 11 (12-20); Aspartate Amino Transferase 10 U/L (5-31); Bilirubin Total 0.3 mg/dL (0.0-1.0); Blood Urea Nitrogen 21 mg/dL (9-16); Calcium 7.9 mg/dL (8.4-10.2); Carbon Dioxide 24 mmol/L (22-29); Chloride 109 mmol/L (96-108); Estimated Glomerular Filt Rate 37; Glucose Random 81 mg/dL (60-115); Potassium 4.1 mmol/L (3.3-5.1); Sodium 140 mmol/L (135-145); Total Protein 5.5 g/dL (6.5-8.0)
== END 2022-01-13 14:46 | disposition home or self-care (01) ==
LOC: HO.LHD 14:45
PROVIDERS: Visit Provider Internal Medicine Medical Oncology
DX: C90.00 Multiple myeloma not having achieved remission (principal)
CPT/HCPCS: 36415; 80053; 85025

== ENCOUNTER 2022-01-20 07:03 | Outpatient (REF) | payer OTHER, SELFPAY ==
[2022-01-20 13:24] LABS: Hematocrit 30.1 % (37.0-47.0); Hemoglobin 9.3 g/dl (12.0-16.0); Mean Corpuscular HGB Conc 30.9 g/dl (31.0-35.0); Mean Corpuscular Hemoglobin 30.1 pg (27.0-33.0); Mean Corpuscular Volume 97.4 fL (80.0-98.0); Mean Platelet Volume 11.1 fL (9.4-12.3); Platelet Count 136 X10*3/uL (160-400); Red Blood Count 3.09 X10*6/uL (4.20-5.50); Red Cell Distribution Width 16.3 % (11.0-16.0)
[2022-01-20 13:30] LABS: WBC ABN SCTR FOR CBC 1
[2022-01-20 13:45] LABS: Band Neutrophils Percent 5 % (3-5); Basophils Percent Manual 2 % (0-2); Eosinophils Percent Manual 15 % (0-4); Lymphocytes Percent Manual 30 % (20-40); Monocytes Percent Manual 5 % (2-11); Neutrophils Percent Manual 43 % (45-73)
[2022-01-20 13:46] LABS: Hypochromasia 2+ (15-30) /OIF; Ovalocytes 1+ (5-14) /OIF; Platelet Estimate DECREASED (NORMAL); Platelet Morphology Comment NORMAL; RBC Morphology NOTED; Tear Drop Cells 1+ (0-2) /OIF
[2022-01-20 13:47] LABS: Basophils Abs Manual 0.1 X10*3/uL (0.0-0.2); Eosinophils Absolute Manual 0.7 X10*3/uL (0.0-0.4); Lymphocytes Absolute Manual 1.4 X10*3/uL (1.2-4.9); Monocytes Absolute Manual 0.2 X10*3/uL (0.1-1.2); Neutrophils Absolute Manual 2.2 X10*3/uL (2.0-8.3); White Blood Count 4.6 X10*3/uL (4.8-10.8)
[2022-01-20 14:25] LABS: Alanine Aminotransferase 8 U/L (0-31); Albumin Level 3.4 g/dL (3.5-5.0); Alkaline Phosphatase 77 U/L (39-117); Anion Gap 13 (12-20); Aspartate Amino Transferase 13 U/L (5-31); Bilirubin Total 0.3 mg/dL (0.0-1.0); Blood Urea Nitrogen 19 mg/dL (9-16); Calcium 8.1 mg/dL (8.4-10.2); Carbon Dioxide 20 mmol/L (22-29); Chloride 111 mmol/L (96-108); Estimated Glomerular Filt Rate 39; Glucose Random 94 mg/dL (60-115); Potassium 4.6 mmol/L (3.3-5.1); Sodium 139 mmol/L (135-145); Total Protein 5.8 g/dL (6.5-8.0)
== END 2022-01-20 07:04 | disposition home or self-care (01) ==
LOC: HO.LHD 07:03
PROVIDERS: Visit Provider Internal Medicine Medical Oncology
DX: C90.00 Multiple myeloma not having achieved remission (principal)
CPT/HCPCS: 36415; 80053; 85007; 85027

== ENCOUNTER 2022-01-27 14:14 | Outpatient (REF) | payer OTHER, SELFPAY ==
[2022-01-27 09:28] LABS: Hematocrit 28.5 % (37.0-47.0); Mean Corpuscular HGB Conc 31.6 g/dl (31.0-35.0); Mean Corpuscular Hemoglobin 30.5 pg (27.0-33.0); Mean Corpuscular Volume 96.6 fL (80.0-98.0); Mean Platelet Volume 10.1 fL (9.4-12.3); Platelet Count 142 X10*3/uL (160-400); Red Blood Count 2.95 X10*6/uL (4.20-5.50); Red Cell Distribution Width 16.7 % (11.0-16.0); White Blood Count 3.9 X10*3/uL (4.8-10.8)
[2022-01-27 10:08] LABS: Alanine Aminotransferase 7 U/L (0-31); Albumin Level 3.6 g/dL (3.5-5.0); Alkaline Phosphatase 74 U/L (39-117); Anion Gap 12 (12-20); Aspartate Amino Transferase 10 U/L (5-31); Bilirubin Total 0.4 mg/dL (0.0-1.0); Blood Urea Nitrogen 26 mg/dL (9-16); Calcium 8.8 mg/dL (8.4-10.2); Carbon Dioxide 25 mmol/L (22-29); Chloride 107 mmol/L (96-108); Estimated Glomerular Filt Rate 32; Glucose Random 103 mg/dL (60-115); Potassium 3.8 mmol/L (3.3-5.1); Sodium 140 mmol/L (135-145); Total Protein 5.9 g/dL (6.5-8.0)
[2022-01-27 10:09] LABS: Band Neutrophils Percent 10 % (3-5); Eosinophils Absolute Manual 0.3 X10*3/uL (0.0-0.4); Eosinophils Percent Manual 7 % (0-4); Lymphocytes Absolute Manual 0.8 X10*3/uL (1.2-4.9); Lymphocytes Percent Manual 21 % (20-40); Monocytes Absolute Manual 0.4 X10*3/uL (0.1-1.2); Monocytes Percent Manual 11 % (2-11); Neutrophils Absolute Manual 2.4 X10*3/uL (2.0-8.3); Neutrophils Percent Manual 51 % (45-73)
[2022-01-27 10:11] LABS: Macrocytosis 1+ (5-14) /OIF; Platelet Estimate DECREASED (NORMAL); Platelet Morphology Comment NORMAL; RBC Morphology NOTED
[2022-01-27 10:12] LABS: Acanthocytes 1+ (0-2) /OIF; Ovalocytes 1+ (5-14) /OIF; Polychromasia 1+ (0-2) /OIF; Tear Drop Cells 1+ (0-2) /OIF
== END 2022-01-27 14:15 | disposition home or self-care (01) ==
LOC: HO.LHD 14:14
PROVIDERS: Visit Provider Internal Medicine Medical Oncology
DX: C90.00 Multiple myeloma not having achieved remission (principal)
CPT/HCPCS: 36415; 80053; 85007; 85027

== ENCOUNTER 2022-02-07 06:03 | Outpatient (REF) | payer OTHER, SELFPAY ==
[2022-02-03 12:02] LABS: MANUAL DIFF FLAG NO
[2022-02-03 12:05] LABS: Basophils Absolute Auto 0.1 X10*3/uL (0.0-0.2); Basophils Percent Auto 1.2 % (0-2); Eosinophils Absolute Auto 0.3 X10*3/uL (0.0-0.4); Eosinophils Percent Auto 6.1 % (0-4); Hematocrit 26.3 % (37.0-47.0); Hemoglobin 8.2 g/dl (12.0-16.0); Imm Gran Abs Auto 0.04 X10*3/uL (0.00-0.03); Imm Gran Pct Auto 0.9 % (0.0-0.4); Lymphocytes Absolute Auto 0.9 X10*3/uL (1.2-4.9); Lymphocytes Percent Auto 20.8 % (20-40); Mean Corpuscular HGB Conc 31.2 g/dl (31.0-35.0); Mean Corpuscular Hemoglobin 30.5 pg (27.0-33.0); Mean Corpuscular Volume 97.8 fL (80.0-98.0); Mean Platelet Volume 10.6 fL (9.4-12.3); Monocytes Absolute Auto 0.3 X10*3/uL (0.1-1.2); Monocytes Percent Auto 6.6 % (2-11); Neutrophils Absolute Auto 2.7 x10*3/uL (2.0-8.3); Neutrophils Percent Auto 64.4 % (45-73); Platelet Count 134 X10*3/uL (160-400); Red Blood Count 2.69 X10*6/uL (4.20-5.50); Red Cell Distribution Width 16.2 % (11.0-16.0); White Blood Count 4.2 X10*3/uL (4.8-10.8)
[2022-02-03 12:56] LABS: Alanine Aminotransferase < 6 U/L (0-31); Albumin Level 3.1 g/dL (3.5-5.0); Alkaline Phosphatase 76 U/L (39-117); Anion Gap 11 (12-20); Aspartate Amino Transferase 10 U/L (5-31); Bilirubin Total 0.3 mg/dL (0.0-1.0); Blood Urea Nitrogen 22 mg/dL (9-16); Calcium 7.9 mg/dL (8.4-10.2); Carbon Dioxide 23 mmol/L (22-29); Chloride 111 mmol/L (96-108); Estimated Glomerular Filt Rate 37; Glucose Random 93 mg/dL (60-115); Potassium 3.7 mmol/L (3.3-5.1); Sodium 141 mmol/L (135-145); Total Protein 5.1 g/dL (6.5-8.0)
== END 2022-02-07 06:04 | disposition home or self-care (01) ==
LOC: HO.LHD 06:03
PROVIDERS: Visit Provider Internal Medicine Medical Oncology
DX: C90.00 Multiple myeloma not having achieved remission (principal)
CPT/HCPCS: 36415; 80053; 85025

== ENCOUNTER 2022-02-10 05:39 | Outpatient (REF) | payer OTHER, SELFPAY ==
[2022-02-10 11:23] LABS: Hematocrit 26.7 % (37.0-47.0); Hemoglobin 8.3 g/dl (12.0-16.0); Mean Corpuscular HGB Conc 31.1 g/dl (31.0-35.0); Mean Corpuscular Volume 96.4 fL (80.0-98.0); Mean Platelet Volume 11.2 fL (9.4-12.3); Red Blood Count 2.77 X10*6/uL (4.20-5.50); Red Cell Distribution Width 15.7 % (11.0-16.0)
[2022-02-10 11:25] LABS: Platelet Count 99 X10*3/uL (160-400); White Blood Count 2.4 X10*3/uL (4.8-10.8)
[2022-02-10 11:46] LABS: Band Neutrophils Percent 1 % (3-5); Eosinophils Absolute Manual 0.2 X10*3/uL (0.0-0.4); Eosinophils Percent Manual 9 % (0-4); Lymphocytes Absolute Manual 1.1 X10*3/uL (1.2-4.9); Lymphocytes Percent Manual 45 % (20-40); Monocytes Absolute Manual 0.2 X10*3/uL (0.1-1.2); Monocytes Percent Manual 8 % (2-11); Neutrophils Absolute Manual 0.9 X10*3/uL (2.0-8.3); Neutrophils Percent Manual 37 % (45-73)
[2022-02-10 11:48] LABS: Acanthocytes 1+ (0-2) /OIF; Ovalocytes 1+ (5-14) /OIF; RBC Morphology NOTED; Tear Drop Cells 1+ (0-2) /OIF
[2022-02-10 11:49] LABS: Hypochromasia 1+ (5-14) /OIF; Platelet Estimate DECREASED (NORMAL); Platelet Morphology Comment NORMAL
[2022-02-10 12:02] LABS: Alanine Aminotransferase 7 U/L (0-31); Albumin Level 3.1 g/dL (3.5-5.0); Alkaline Phosphatase 72 U/L (39-117); Anion Gap 11 (12-20); Aspartate Amino Transferase 8 U/L (5-31); Bilirubin Total < 0.2 mg/dL (0.0-1.0); Blood Urea Nitrogen 19 mg/dL (9-16); Calcium 7.4 mg/dL (8.4-10.2); Carbon Dioxide 24 mmol/L (22-29); Chloride 110 mmol/L (96-108); Estimated Glomerular Filt Rate 37; Glucose Random 91 mg/dL (60-115); Potassium 3.8 mmol/L (3.3-5.1); Sodium 141 mmol/L (135-145)
== END 2022-02-10 05:40 | disposition home or self-care (01) ==
LOC: HO.LHD 05:39
PROVIDERS: Absent Provider Clinical Nurse Specialist Psychiatric/Mental Health, Adult; Visit Provider Internal Medicine Medical Oncology
DX: C90.00 Multiple myeloma not having achieved remission (principal)
CPT/HCPCS: 36415; 80053; 85007; 85027

== ENCOUNTER 2022-02-17 10:30 | Outpatient (REF) | payer OTHER, SELFPAY ==
[2022-02-17 11:24] LABS: Hematocrit 28.8 % (37.0-47.0); Hemoglobin 8.9 g/dl (12.0-16.0); Mean Corpuscular HGB Conc 30.9 g/dl (31.0-35.0); Mean Corpuscular Hemoglobin 29.8 pg (27.0-33.0); Mean Corpuscular Volume 96.3 fL (80.0-98.0); Mean Platelet Volume 11.4 fL (9.4-12.3); Platelet Count 132 X10*3/uL (160-400); Red Blood Count 2.99 X10*6/uL (4.20-5.50); Red Cell Distribution Width 16.5 % (11.0-16.0); White Blood Count 3.3 X10*3/uL (4.8-10.8)
[2022-02-17 11:50] LABS: Alanine Aminotransferase < 6 U/L (0-31); Albumin Level 3.4 g/dL (3.5-5.0); Alkaline Phosphatase 67 U/L (39-117); Anion Gap 12 (12-20); Aspartate Amino Transferase 8 U/L (5-31); Bilirubin Total 0.2 mg/dL (0.0-1.0); Blood Urea Nitrogen 18 mg/dL (9-16); Calcium 8.3 mg/dL (8.4-10.2); Carbon Dioxide 23 mmol/L (22-29); Chloride 111 mmol/L (96-108); Estimated Glomerular Filt Rate 39; Glucose Random 93 mg/dL (60-115); Potassium 3.8 mmol/L (3.3-5.1); Sodium 142 mmol/L (135-145); Total Protein 5.5 g/dL (6.5-8.0)
[2022-02-17 11:51] LABS: Band Neutrophils Percent 1 % (3-5); Basophils Percent Manual 1 % (0-2); Eosinophils Absolute Manual 0.4 X10*3/uL (0.0-0.4); Eosinophils Percent Manual 13 % (0-4); Lymphocytes Absolute Manual 1.3 X10*3/uL (1.2-4.9); Lymphocytes Percent Manual 38 % (20-40); Monocytes Absolute Manual 0.3 X10*3/uL (0.1-1.2); Monocytes Percent Manual 8 % (2-11); Neutrophils Absolute Manual 1.3 X10*3/uL (2.0-8.3); Neutrophils Percent Manual 39 % (45-73); Nucleated Red Blood Cells 1 /100WBC (0-0)
[2022-02-17 11:56] LABS: Hypochromasia 1+ (5-14) /OIF; Ovalocytes 1+ (5-14) /OIF; Platelet Estimate SLIGHTLY DECREASED (NORMAL); Platelet Morphology Comment NORMAL; Polychromasia 1+ (0-2) /OIF; RBC Morphology NOTED; Tear Drop Cells 1+ (0-2) /OIF
== END 2022-02-17 10:31 | disposition home or self-care (01) ==
LOC: HO.LHD 10:30
PROVIDERS: Absent Provider Clinical Nurse Specialist Psychiatric/Mental Health, Adult; Visit Provider Internal Medicine Medical Oncology
DX: C90.00 Multiple myeloma not having achieved remission (principal)
CPT/HCPCS: 36415; 80053; 85007; 85027

== ENCOUNTER 2022-02-24 14:30 | Outpatient (REF) | payer OTHER, SELFPAY ==
[2022-02-24 09:51] LABS: MANUAL DIFF FLAG NO
[2022-02-24 10:17] LABS: Basophils Absolute Auto 0.1 X10*3/uL (0.0-0.2); Basophils Percent Auto 2.9 % (0-2); Eosinophils Absolute Auto 0.1 X10*3/uL (0.0-0.4); Eosinophils Percent Auto 4.7 % (0-4); Hematocrit 31.5 % (37.0-47.0); Hemoglobin 9.9 g/dl (12.0-16.0); Imm Gran Abs Auto 0.01 X10*3/uL (0.00-0.03); Imm Gran Pct Auto 0.4 % (0.0-0.4); Lymphocytes Absolute Auto 1.2 X10*3/uL (1.2-4.9); Lymphocytes Percent Auto 42.2 % (20-40); Mean Corpuscular HGB Conc 31.4 g/dl (31.0-35.0); Mean Corpuscular Volume 95.5 fL (80.0-98.0); Mean Platelet Volume 10.7 fL (9.4-12.3); Monocytes Absolute Auto 0.3 X10*3/uL (0.1-1.2); Monocytes Percent Auto 9.1 % (2-11); Neutrophils Absolute Auto 1.1 x10*3/uL (2.0-8.3); Neutrophils Percent Auto 40.7 % (45-73); Platelet Count 178 X10*3/uL (160-400); Red Cell Distribution Width 16.3 % (11.0-16.0); White Blood Count 2.8 X10*3/uL (4.8-10.8)
[2022-02-24 10:45] LABS: Alanine Aminotransferase 6 U/L (0-31); Albumin Level 3.5 g/dL (3.5-5.0); Alkaline Phosphatase 61 U/L (39-117); Anion Gap 11 (12-20); Aspartate Amino Transferase 11 U/L (5-31); Bilirubin Total 0.2 mg/dL (0.0-1.0); Blood Urea Nitrogen 20 mg/dL (9-16); Calcium 8.9 mg/dL (8.4-10.2); Carbon Dioxide 26 mmol/L (22-29); Chloride 109 mmol/L (96-108); Estimated Glomerular Filt Rate 46; Glucose Random 89 mg/dL (60-115); Potassium 3.8 mmol/L (3.3-5.1); Sodium 142 mmol/L (135-145); Total Protein 5.8 g/dL (6.5-8.0)
[2022-02-27 14:22] LABS: Kappa Light Chain, Free Serum 24.5 mg/L (3.3-19.4); Kappa/Lambda Lt Ch Free Ratio 1.11 (0.26-1.65)
== END 2022-02-24 14:31 | disposition home or self-care (01) ==
LOC: HO.LHD 14:30
PROVIDERS: Absent Provider Clinical Nurse Specialist Psychiatric/Mental Health, Adult; Visit Provider Internal Medicine Medical Oncology
DX: C90.00 Multiple myeloma not having achieved remission (principal)
CPT/HCPCS: 36415; 80053; 83521; 85025

== ENCOUNTER 2022-02-27 11:07 | Outpatient (REF) | payer OTHER, SELFPAY ==
[2022-03-01 15:02] LABS: IgA 154 mg/dL (70-320); IgG 885 mg/dL (600-1540); IgM 37 mg/dL (50-300)
== END 2022-02-27 11:08 | disposition home or self-care (01) ==
LOC: HO.LHD 11:07
PROVIDERS: Visit Provider Internal Medicine Medical Oncology
DX: C90.00 Multiple myeloma not having achieved remission (principal)
CPT/HCPCS: 36415; 82784; 86334

== ENCOUNTER 2022-03-03 10:34 | Outpatient (REF) | payer OTHER, SELFPAY ==
[2022-03-03 10:15] LABS: MANUAL DIFF FLAG NO
[2022-03-03 10:21] LABS: Basophils Percent Auto 0.8 % (0-2); Eosinophils Absolute Auto 0.3 X10*3/uL (0.0-0.4); Eosinophils Percent Auto 10.9 % (0-4); Hemoglobin 9.6 g/dl (12.0-16.0); Imm Gran Abs Auto 0.03 X10*3/uL (0.00-0.03); Imm Gran Pct Auto 1.1 % (0.0-0.4); Lymphocytes Absolute Auto 0.9 X10*3/uL (1.2-4.9); Lymphocytes Percent Auto 32.5 % (20-40); Mean Corpuscular Hemoglobin 29.8 pg (27.0-33.0); Mean Corpuscular Volume 96.3 fL (80.0-98.0); Monocytes Absolute Auto 0.2 X10*3/uL (0.1-1.2); Monocytes Percent Auto 7.5 % (2-11); Neutrophils Absolute Auto 1.3 x10*3/uL (2.0-8.3); Neutrophils Percent Auto 47.2 % (45-73); Platelet Count 135 X10*3/uL (160-400); Red Blood Count 3.22 X10*6/uL (4.20-5.50); Red Cell Distribution Width 16.3 % (11.0-16.0); White Blood Count 2.7 X10*3/uL (4.8-10.8)
[2022-03-03 10:38] LABS: Alanine Aminotransferase < 6 U/L (0-31); Albumin Level 3.4 g/dL (3.5-5.0); Alkaline Phosphatase 75 U/L (39-117); Anion Gap 14 (12-20); Aspartate Amino Transferase 10 U/L (5-31); Bilirubin Total 0.2 mg/dL (0.0-1.0); Blood Urea Nitrogen 16 mg/dL (9-16); Calcium 8.4 mg/dL (8.4-10.2); Carbon Dioxide 25 mmol/L (22-29); Chloride 109 mmol/L (96-108); Estimated Glomerular Filt Rate 34; Glucose Random 97 mg/dL (60-115); Potassium 3.9 mmol/L (3.3-5.1); Sodium 144 mmol/L (135-145); Total Protein 5.6 g/dL (6.5-8.0)
== END 2022-03-03 10:35 | disposition home or self-care (01) ==
LOC: HO.LHD 10:34
PROVIDERS: Visit Provider Internal Medicine Medical Oncology
DX: C90.00 Multiple myeloma not having achieved remission (principal)
CPT/HCPCS: 36415; 80053; 85025

== ENCOUNTER 2022-03-10 14:18 | Outpatient (REF) | payer OTHER, SELFPAY ==
[2022-03-10 13:57] LABS: Hematocrit 26.6 % (37.0-47.0); Hemoglobin 8.3 g/dl (12.0-16.0); Mean Corpuscular HGB Conc 31.2 g/dl (31.0-35.0); Mean Corpuscular Hemoglobin 30.5 pg (27.0-33.0); Mean Corpuscular Volume 97.8 fL (80.0-98.0); Mean Platelet Volume 11.6 fL (9.4-12.3); Platelet Count 105 X10*3/uL (160-400); Red Blood Count 2.72 X10*6/uL (4.20-5.50); White Blood Count 3.2 X10*3/uL (4.8-10.8)
[2022-03-10 14:31] LABS: Band Neutrophils Percent 4 % (3-5); Eosinophils Absolute Manual 0.3 X10*3/uL (0.0-0.4); Eosinophils Percent Manual 9 % (0-4); Lymphocytes Absolute Manual 0.8 X10*3/uL (1.2-4.9); Lymphocytes Percent Manual 26 % (20-40); Metamyelocytes Percent 1 %; Monocytes Absolute Manual 0.4 X10*3/uL (0.1-1.2); Monocytes Percent Manual 12 % (2-11); Neutrophils Absolute Manual 1.7 X10*3/uL (2.0-8.3); Neutrophils Percent Manual 48 % (45-73)
[2022-03-10 14:32] LABS: Hypochromasia 1+ (5-14) /OIF; Nucleated Red Blood Cells 1 /100WBC (0-0); Ovalocytes 1+ (5-14) /OIF; RBC Morphology NOTED; Tear Drop Cells 1+ (0-2) /OIF
[2022-03-10 14:33] LABS: Platelet Estimate DECREASED (NORMAL); Platelet Morphology Comment NORMAL; Polychromasia 1+ (0-2) /OIF
[2022-03-10 14:53] LABS: Alanine Aminotransferase 7 U/L (0-31); Albumin Level 2.9 g/dL (3.5-5.0); Alkaline Phosphatase 68 U/L (39-117); Anion Gap 11 (12-20); Aspartate Amino Transferase 11 U/L (5-31); Bilirubin Total 0.4 mg/dL (0.0-1.0); Blood Urea Nitrogen 19 mg/dL (9-16); Calcium 7.1 mg/dL (8.4-10.2); Carbon Dioxide 23 mmol/L (22-29); Chloride 114 mmol/L (96-108); Estimated Glomerular Filt Rate 49; Glucose Random 87 mg/dL (60-115); Potassium 3.9 mmol/L (3.3-5.1); Sodium 144 mmol/L (135-145); Total Protein 4.9 g/dL (6.5-8.0)
== END 2022-03-10 14:19 | disposition home or self-care (01) ==
LOC: HO.LHD 14:18
PROVIDERS: Absent Provider Clinical Nurse Specialist Psychiatric/Mental Health, Adult; Visit Provider Internal Medicine Medical Oncology
DX: C90.00 Multiple myeloma not having achieved remission (principal)
CPT/HCPCS: 36415; 80053; 85007; 85025; 85027

== ENCOUNTER 2022-03-17 14:37 | Outpatient (REF) | payer OTHER, SELFPAY ==
[2022-03-17 11:50] LABS: Hematocrit 28.5 % (37.0-47.0); Hemoglobin 8.9 g/dl (12.0-16.0); Mean Corpuscular HGB Conc 31.2 g/dl (31.0-35.0); Mean Corpuscular Hemoglobin 30.5 pg (27.0-33.0); Mean Corpuscular Volume 97.6 fL (80.0-98.0); Mean Platelet Volume 11.3 fL (9.4-12.3); Platelet Count 117 X10*3/uL (160-400); Red Blood Count 2.92 X10*6/uL (4.20-5.50)
[2022-03-17 11:51] LABS: WBC ABN SCTR FOR CBC 1
[2022-03-17 12:27] LABS: Alanine Aminotransferase 7 U/L (0-31); Albumin Level 3.1 g/dL (3.5-5.0); Alkaline Phosphatase 74 U/L (39-117); Anion Gap 14 (12-20); Aspartate Amino Transferase 8 U/L (5-31); Bilirubin Total 0.4 mg/dL (0.0-1.0); Blood Urea Nitrogen 20 mg/dL (9-16); Calcium 8.9 mg/dL (8.4-10.2); Carbon Dioxide 23 mmol/L (22-29); Chloride 110 mmol/L (96-108); Estimated Glomerular Filt Rate 53; Glucose Random 99 mg/dL (60-115); Potassium 3.6 mmol/L (3.3-5.1); Sodium 143 mmol/L (135-145); Total Protein 5.3 g/dL (6.5-8.0)
[2022-03-17 12:31] LABS: Band Neutrophils Percent 13 % (3-5); Basophilic Stippling 1+ (0-2) /OIF; Dohle Bodies PRESENT; Eosinophils Percent Manual 9 % (0-4); Hypochromasia 1+ (5-14) /OIF; Large Platelet PRESENT; Lymphocytes Percent Manual 16 % (20-40); Monocytes Percent Manual 5 % (2-11); Neutrophils Percent Manual 57 % (45-73); Ovalocytes 1+ (5-14) /OIF; Platelet Estimate DECREASED (NORMAL); Platelet Morphology Comment NOTED; Polychromasia 1+ (0-2) /OIF; RBC Morphology NOTED; Schistocytes 1+ (0-2) /OIF
[2022-03-17 12:53] LABS: Eosinophils Absolute Manual 0.4 X10*3/uL (0.0-0.4); Lymphocytes Absolute Manual 0.7 X10*3/uL (1.2-4.9); Monocytes Absolute Manual 0.2 X10*3/uL (0.1-1.2); Neutrophils Absolute Manual 3.1 X10*3/uL (2.0-8.3); White Blood Count 4.4 X10*3/uL (4.8-10.8)
== END 2022-03-17 14:38 | disposition home or self-care (01) ==
LOC: HO.LHD 14:37
PROVIDERS: Visit Provider Internal Medicine Medical Oncology
DX: C90.00 Multiple myeloma not having achieved remission (principal)
CPT/HCPCS: 36415; 80053; 85007; 85027

== ENCOUNTER 2022-03-24 07:37 | Outpatient (REF) | payer OTHER, SELFPAY ==
[2022-03-24 12:00] LABS: MANUAL DIFF FLAG NO
[2022-03-24 12:03] LABS: Basophils Absolute Auto 0.1 X10*3/uL (0.0-0.2); Basophils Percent Auto 1.8 % (0-2); Eosinophils Absolute Auto 0.1 X10*3/uL (0.0-0.4); Eosinophils Percent Auto 3.6 % (0-4); Hematocrit 28.1 % (37.0-47.0); Hemoglobin 8.8 g/dl (12.0-16.0); Imm Gran Abs Auto 0.02 X10*3/uL (0.00-0.03); Imm Gran Pct Auto 0.5 % (0.0-0.4); Lymphocytes Absolute Auto 0.9 X10*3/uL (1.2-4.9); Mean Corpuscular HGB Conc 31.3 g/dl (31.0-35.0); Mean Corpuscular Volume 95.9 fL (80.0-98.0); Mean Platelet Volume 10.1 fL (9.4-12.3); Monocytes Absolute Auto 0.5 X10*3/uL (0.1-1.2); Neutrophils Absolute Auto 2.2 x10*3/uL (2.0-8.3); Neutrophils Percent Auto 57.1 % (45-73); Platelet Count 163 X10*3/uL (160-400); Red Blood Count 2.93 X10*6/uL (4.20-5.50); Red Cell Distribution Width 16.3 % (11.0-16.0); White Blood Count 3.9 X10*3/uL (4.8-10.8)
[2022-03-24 12:22] LABS: Alanine Aminotransferase 6 U/L (0-31); Albumin Level 3.1 g/dL (3.5-5.0); Alkaline Phosphatase 65 U/L (39-117); Anion Gap 13 (12-20); Aspartate Amino Transferase 8 U/L (5-31); Bilirubin Total 0.3 mg/dL (0.0-1.0); Blood Urea Nitrogen 26 mg/dL (9-16); Calcium 8.2 mg/dL (8.4-10.2); Carbon Dioxide 24 mmol/L (22-29); Chloride 110 mmol/L (96-108); Estimated Glomerular Filt Rate 49; Glucose Random 89 mg/dL (60-115); Potassium 4.1 mmol/L (3.3-5.1); Sodium 143 mmol/L (135-145); Total Protein 5.3 g/dL (6.5-8.0)
== END 2022-03-24 07:38 | disposition home or self-care (01) ==
LOC: HO.LHD 07:37
PROVIDERS: Visit Provider Internal Medicine Medical Oncology
DX: C90.00 Multiple myeloma not having achieved remission (principal)
CPT/HCPCS: 36415; 80053; 85025

== ENCOUNTER 2022-03-31 06:15 | Outpatient (REF) | payer OTHER, SELFPAY ==
[2022-03-31 12:03] LABS: Hematocrit 29.9 % (37.0-47.0); Hemoglobin 9.3 g/dl (12.0-16.0); Mean Corpuscular HGB Conc 31.1 g/dl (31.0-35.0); Mean Corpuscular Hemoglobin 30.2 pg (27.0-33.0); Mean Corpuscular Volume 97.1 fL (80.0-98.0); Mean Platelet Volume 10.9 fL (9.4-12.3); Platelet Count 174 X10*3/uL (160-400); Red Blood Count 3.08 X10*6/uL (4.20-5.50); Red Cell Distribution Width 16.4 % (11.0-16.0); White Blood Count 9.5 X10*3/uL (4.8-10.8)
[2022-03-31 12:35] LABS: Alanine Aminotransferase 7 U/L (0-31); Albumin Level 3.2 g/dL (3.5-5.0); Alkaline Phosphatase 83 U/L (39-117); Anion Gap 12 (12-20); Aspartate Amino Transferase 10 U/L (5-31); Bilirubin Total 0.3 mg/dL (0.0-1.0); Blood Urea Nitrogen 20 mg/dL (9-16); Carbon Dioxide 27 mmol/L (22-29); Chloride 109 mmol/L (96-108); Estimated Glomerular Filt Rate 47; Glucose Random 85 mg/dL (60-115); Potassium 4.3 mmol/L (3.3-5.1); Sodium 144 mmol/L (135-145); Total Protein 5.4 g/dL (6.5-8.0)
[2022-03-31 12:46] LABS: Band Neutrophils Percent 8 % (3-5); Eosinophils Absolute Manual 0.3 X10*3/uL (0.0-0.4); Eosinophils Percent Manual 3 % (0-4); Lymphocytes Absolute Manual 0.7 X10*3/uL (1.2-4.9); Lymphocytes Percent Manual 7 % (20-40); Monocytes Absolute Manual 0.3 X10*3/uL (0.1-1.2); Monocytes Percent Manual 3 % (2-11); Neutrophils Absolute Manual 8.3 X10*3/uL (2.0-8.3); Neutrophils Percent Manual 79 % (45-73)
[2022-03-31 12:48] LABS: Macrocytosis 1+ (5-14) /OIF; Polychromasia 1+ (0-2) /OIF; RBC Morphology NOTED; Tear Drop Cells 1+ (0-2) /OIF
[2022-03-31 12:49] LABS: Hypochromasia 2+ (15-30) /OIF
[2022-03-31 12:50] LABS: Basophilic Stippling 1+ (0-2) /OIF
[2022-03-31 12:51] LABS: Platelet Estimate NORMAL (NORMAL); Platelet Morphology Comment NORMAL
== END 2022-03-31 06:16 | disposition home or self-care (01) ==
LOC: HO.LHD 06:15
PROVIDERS: Visit Provider Internal Medicine Medical Oncology
DX: C90.00 Multiple myeloma not having achieved remission (principal)
CPT/HCPCS: 36415; 80053; 85007; 85025; 85027

== ENCOUNTER 2022-04-07 08:15 | Outpatient (REF) | payer OTHER, SELFPAY ==
[2022-04-07 11:29] LABS: MANUAL DIFF FLAG NO
[2022-04-07 11:32] LABS: Basophils Percent Auto 0.8 % (0-2); Eosinophils Absolute Auto 0.3 X10*3/uL (0.0-0.4); Eosinophils Percent Auto 5.7 % (0-4); Hematocrit 29.7 % (37.0-47.0); Hemoglobin 9.4 g/dl (12.0-16.0); Imm Gran Abs Auto 0.02 X10*3/uL (0.00-0.03); Imm Gran Pct Auto 0.4 % (0.0-0.4); Lymphocytes Absolute Auto 0.8 X10*3/uL (1.2-4.9); Lymphocytes Percent Auto 15.7 % (20-40); Mean Corpuscular HGB Conc 31.6 g/dl (31.0-35.0); Mean Corpuscular Hemoglobin 30.3 pg (27.0-33.0); Mean Corpuscular Volume 95.8 fL (80.0-98.0); Mean Platelet Volume 10.8 fL (9.4-12.3); Monocytes Absolute Auto 0.3 X10*3/uL (0.1-1.2); Monocytes Percent Auto 4.7 % (2-11); Neutrophils Absolute Auto 3.8 x10*3/uL (2.0-8.3); Neutrophils Percent Auto 72.7 % (45-73); Platelet Count 155 X10*3/uL (160-400); Red Cell Distribution Width 15.4 % (11.0-16.0); White Blood Count 5.3 X10*3/uL (4.8-10.8)
[2022-04-07 12:25] LABS: Alanine Aminotransferase 8 U/L (0-31); Albumin Level 3.2 g/dL (3.5-5.0); Alkaline Phosphatase 72 U/L (39-117); Anion Gap 12 (12-20); Aspartate Amino Transferase 12 U/L (5-31); Bilirubin Total 0.3 mg/dL (0.0-1.0); Blood Urea Nitrogen 18 mg/dL (9-16); Calcium 8.9 mg/dL (8.4-10.2); Carbon Dioxide 27 mmol/L (22-29); Chloride 106 mmol/L (96-108); Estimated Glomerular Filt Rate 52; Glucose Random 98 mg/dL (60-115); Potassium 4.2 mmol/L (3.3-5.1); Sodium 141 mmol/L (135-145); Total Protein 5.5 g/dL (6.5-8.0)
== END 2022-04-07 08:16 ==
LOC: HO.LHD 08:15
PROVIDERS: Visit Provider Internal Medicine Medical Oncology
DX: C90.00 Multiple myeloma not having achieved remission (principal)
CPT/HCPCS: 36415; 80053; 85025

== ENCOUNTER 2022-04-14 12:19 | Outpatient (REF) | payer OTHER, SELFPAY ==
[2022-04-14 10:55] LABS: MANUAL DIFF FLAG NO
[2022-04-14 10:59] LABS: Basophils Percent Auto 0.4 % (0-2); Eosinophils Absolute Auto 0.5 X10*3/uL (0.0-0.4); Eosinophils Percent Auto 9.3 % (0-4); Hematocrit 32.1 % (37.0-47.0); Hemoglobin 9.7 g/dl (12.0-16.0); Imm Gran Abs Auto 0.06 X10*3/uL (0.00-0.03); Imm Gran Pct Auto 1.1 % (0.0-0.4); Lymphocytes Absolute Auto 1.4 X10*3/uL (1.2-4.9); Lymphocytes Percent Auto 25.6 % (20-40); Mean Corpuscular HGB Conc 30.2 g/dl (31.0-35.0); Mean Corpuscular Hemoglobin 29.4 pg (27.0-33.0); Mean Corpuscular Volume 97.3 fL (80.0-98.0); Mean Platelet Volume 11.4 fL (9.4-12.3); Monocytes Absolute Auto 0.5 X10*3/uL (0.1-1.2); Monocytes Percent Auto 9.5 % (2-11); Neutrophils Absolute Auto 2.9 x10*3/uL (2.0-8.3); Neutrophils Percent Auto 54.1 % (45-73); Platelet Count 157 X10*3/uL (160-400); Red Cell Distribution Width 15.9 % (11.0-16.0); White Blood Count 5.3 X10*3/uL (4.8-10.8)
[2022-04-14 11:15] LABS: Alanine Aminotransferase 8 U/L (0-31); Albumin Level 3.3 g/dL (3.5-5.0); Alkaline Phosphatase 76 U/L (39-117); Anion Gap 12 (12-20); Aspartate Amino Transferase 14 U/L (5-31); Bilirubin Total 0.3 mg/dL (0.0-1.0); Blood Urea Nitrogen 19 mg/dL (9-16); Calcium 7.7 mg/dL (8.4-10.2); Carbon Dioxide 24 mmol/L (22-29); Chloride 114 mmol/L (96-108); Estimated Glomerular Filt Rate 48; Glucose Random 82 mg/dL (60-115); Potassium 4.1 mmol/L (3.3-5.1); Sodium 146 mmol/L (135-145); Total Protein 5.5 g/dL (6.5-8.0)
== END 2022-04-14 12:20 | disposition home or self-care (01) ==
LOC: HO.LHD 12:19
PROVIDERS: Visit Provider Internal Medicine Medical Oncology
DX: C90.00 Multiple myeloma not having achieved remission (principal)
CPT/HCPCS: 36415; 80053; 85025

== ENCOUNTER 2022-04-21 07:00 | Outpatient (REF) | payer OTHER, SELFPAY ==
[2022-04-21 11:20] LABS: MANUAL DIFF FLAG NO
[2022-04-21 11:23] LABS: Eosinophils Absolute Auto 0.3 X10*3/uL (0.0-0.4); Eosinophils Percent Auto 9.4 % (0-4); Hematocrit 30.2 % (37.0-47.0); Hemoglobin 9.4 g/dl (12.0-16.0); Imm Gran Abs Auto 0.03 X10*3/uL (0.00-0.03); Lymphocytes Absolute Auto 1.1 X10*3/uL (1.2-4.9); Mean Corpuscular HGB Conc 31.1 g/dl (31.0-35.0); Mean Corpuscular Hemoglobin 29.7 pg (27.0-33.0); Mean Corpuscular Volume 95.6 fL (80.0-98.0); Mean Platelet Volume 11.4 fL (9.4-12.3); Monocytes Absolute Auto 0.2 X10*3/uL (0.1-1.2); Monocytes Percent Auto 7.5 % (2-11); Neutrophils Absolute Auto 1.4 x10*3/uL (2.0-8.3); Neutrophils Percent Auto 45.1 % (45-73); Platelet Count 104 X10*3/uL (160-400); Red Blood Count 3.16 X10*6/uL (4.20-5.50); Red Cell Distribution Width 15.4 % (11.0-16.0); White Blood Count 3.1 X10*3/uL (4.8-10.8)
[2022-04-21 11:43] LABS: Alanine Aminotransferase 6 U/L (0-31); Albumin Level 3.3 g/dL (3.5-5.0); Alkaline Phosphatase 70 U/L (39-117); Anion Gap 14 (12-20); Aspartate Amino Transferase 9 U/L (5-31); Bilirubin Total 0.2 mg/dL (0.0-1.0); Blood Urea Nitrogen 22 mg/dL (9-16); Calcium 8.2 mg/dL (8.4-10.2); Carbon Dioxide 23 mmol/L (22-29); Chloride 110 mmol/L (96-108); Estimated Glomerular Filt Rate 45; Glucose Random 87 mg/dL (60-115); Potassium 3.9 mmol/L (3.3-5.1); Sodium 143 mmol/L (135-145); Total Protein 5.6 g/dL (6.5-8.0)
== END 2022-04-21 07:01 | disposition home or self-care (01) ==
LOC: HO.LHD 07:00
PROVIDERS: Visit Provider Internal Medicine Medical Oncology
DX: C90.00 Multiple myeloma not having achieved remission (principal)
CPT/HCPCS: 36415; 80053; 85025

== ENCOUNTER 2022-04-28 06:29 | Outpatient (REF) | payer OTHER, SELFPAY ==
[2022-04-28 11:50] LABS: Basophils Percent Auto 1.5 % (0-2); Eosinophils Absolute Auto 0.2 X10*3/uL (0.0-0.4); Eosinophils Percent Auto 8.1 % (0-4); Hematocrit 29.3 % (37.0-47.0); Hemoglobin 9.1 g/dl (12.0-16.0); Imm Gran Abs Auto 0.01 X10*3/uL (0.00-0.03); Imm Gran Pct Auto 0.5 % (0.0-0.4); Lymphocytes Absolute Auto 0.8 X10*3/uL (1.2-4.9); Lymphocytes Percent Auto 42.6 % (20-40); MANUAL DIFF FLAG SCAN; Mean Corpuscular HGB Conc 31.1 g/dl (31.0-35.0); Mean Corpuscular Hemoglobin 29.4 pg (27.0-33.0); Mean Corpuscular Volume 94.8 fL (80.0-98.0); Mean Platelet Volume 11.4 fL (9.4-12.3); Monocytes Absolute Auto 0.2 X10*3/uL (0.1-1.2); Monocytes Percent Auto 12.2 % (2-11); Neutrophils Absolute Auto 0.7 x10*3/uL (2.0-8.3); Neutrophils Percent Auto 35.1 % (45-73); Platelet Count 120 X10*3/uL (160-400); Red Blood Count 3.09 X10*6/uL (4.20-5.50); Red Cell Distribution Width 15.5 % (11.0-16.0); SCAN SMEAR FLAG 1
[2022-04-28 12:08] LABS: Alanine Aminotransferase 6 U/L (0-31); Alkaline Phosphatase 68 U/L (39-117); Anion Gap 15 (12-20); Aspartate Amino Transferase 12 U/L (5-31); Bilirubin Total 0.3 mg/dL (0.0-1.0); Blood Urea Nitrogen 13 mg/dL (9-16); Calcium 7.4 mg/dL (8.4-10.2); Carbon Dioxide 23 mmol/L (22-29); Chloride 110 mmol/L (96-108); Estimated Glomerular Filt Rate 41; Glucose Random 84 mg/dL (60-115); Sodium 144 mmol/L (135-145); Total Protein 5.3 g/dL (6.5-8.0)
[2022-04-28 12:12] LABS: SLIDE REVIEW VERIFIED
== END 2022-04-28 06:30 | disposition home or self-care (01) ==
LOC: HO.LHD 06:29
PROVIDERS: Visit Provider Internal Medicine Medical Oncology
DX: C90.00 Multiple myeloma not having achieved remission (principal)
CPT/HCPCS: 36415; 80053; 85025

== ENCOUNTER 2022-05-09 06:00 | Outpatient (REF) | payer OTHER, SELFPAY ==
[2022-05-05 10:09] LABS: MANUAL DIFF FLAG NO
[2022-05-05 10:22] LABS: Basophils Absolute Auto 0.1 X10*3/uL (0.0-0.2); Basophils Percent Auto 2.5 % (0-2); Eosinophils Absolute Auto 0.1 X10*3/uL (0.0-0.4); Eosinophils Percent Auto 3.8 % (0-4); Hematocrit 31.5 % (37.0-47.0); Hemoglobin 9.8 g/dl (12.0-16.0); Imm Gran Abs Auto 0.02 X10*3/uL (0.00-0.03); Imm Gran Pct Auto 0.6 % (0.0-0.4); Lymphocytes Absolute Auto 1.2 X10*3/uL (1.2-4.9); Lymphocytes Percent Auto 36.6 % (20-40); Mean Corpuscular HGB Conc 31.1 g/dl (31.0-35.0); Mean Corpuscular Volume 96.3 fL (80.0-98.0); Mean Platelet Volume 10.3 fL (9.4-12.3); Monocytes Absolute Auto 0.3 X10*3/uL (0.1-1.2); Monocytes Percent Auto 8.8 % (2-11); Neutrophils Absolute Auto 1.5 x10*3/uL (2.0-8.3); Neutrophils Percent Auto 47.7 % (45-73); Platelet Count 180 X10*3/uL (160-400); Red Blood Count 3.27 X10*6/uL (4.20-5.50); Red Cell Distribution Width 15.7 % (11.0-16.0); White Blood Count 3.2 X10*3/uL (4.8-10.8)
[2022-05-05 10:40] LABS: Alanine Aminotransferase < 6 U/L (0-31); Albumin Level 3.2 g/dL (3.5-5.0); Alkaline Phosphatase 77 U/L (39-117); Anion Gap 11 (12-20); Aspartate Amino Transferase 8 U/L (5-31); Bilirubin Total 0.2 mg/dL (0.0-1.0); Blood Urea Nitrogen 18 mg/dL (9-16); Calcium 8.7 mg/dL (8.4-10.2); Carbon Dioxide 25 mmol/L (22-29); Chloride 112 mmol/L (96-108); Estimated Glomerular Filt Rate 42; Glucose Random 110 mg/dL (60-115); Potassium 4.2 mmol/L (3.3-5.1); Sodium 144 mmol/L (135-145); Total Protein 5.5 g/dL (6.5-8.0)
== END 2022-05-09 06:01 | disposition home or self-care (01) ==
LOC: HO.LHD 06:00
PROVIDERS: Visit Provider Internal Medicine Medical Oncology
DX: C90.00 Multiple myeloma not having achieved remission (principal)
CPT/HCPCS: 36415; 80053; 85025

== ENCOUNTER 2022-05-12 12:33 | Outpatient (REF) | payer OTHER, SELFPAY ==
[2022-05-12 10:37] LABS: MANUAL DIFF FLAG NO
[2022-05-12 10:46] LABS: Basophils Absolute Auto 0.1 X10*3/uL (0.0-0.2); Basophils Percent Auto 1.8 % (0-2); Eosinophils Absolute Auto 0.2 X10*3/uL (0.0-0.4); Eosinophils Percent Auto 3.9 % (0-4); Hematocrit 32.3 % (37.0-47.0); Hemoglobin 10.1 g/dl (12.0-16.0); Imm Gran Abs Auto 0.02 X10*3/uL (0.00-0.03); Imm Gran Pct Auto 0.5 % (0.0-0.4); Lymphocytes Absolute Auto 1.3 X10*3/uL (1.2-4.9); Lymphocytes Percent Auto 32.5 % (20-40); Mean Corpuscular HGB Conc 31.3 g/dl (31.0-35.0); Mean Corpuscular Hemoglobin 29.5 pg (27.0-33.0); Mean Corpuscular Volume 94.4 fL (80.0-98.0); Monocytes Absolute Auto 0.3 X10*3/uL (0.1-1.2); Monocytes Percent Auto 8.8 % (2-11); Neutrophils Percent Auto 52.5 % (45-73); Platelet Count 154 X10*3/uL (160-400); Red Blood Count 3.42 X10*6/uL (4.20-5.50); Red Cell Distribution Width 15.4 % (11.0-16.0); White Blood Count 3.9 X10*3/uL (4.8-10.8)
[2022-05-12 11:11] LABS: Alanine Aminotransferase < 6 U/L (0-31); Albumin Level 3.3 g/dL (3.5-5.0); Alkaline Phosphatase 75 U/L (39-117); Anion Gap 11 (12-20); Aspartate Amino Transferase 10 U/L (5-31); Bilirubin Total < 0.2 mg/dL (0.0-1.0); Blood Urea Nitrogen 16 mg/dL (9-16); Calcium 9.1 mg/dL (8.4-10.2); Carbon Dioxide 28 mmol/L (22-29); Chloride 108 mmol/L (96-108); Estimated Glomerular Filt Rate 41; Glucose Random 87 mg/dL (60-115); Potassium 4.2 mmol/L (3.3-5.1); Sodium 143 mmol/L (135-145); Total Protein 5.8 g/dL (6.5-8.0)
== END 2022-05-12 12:34 | disposition home or self-care (01) ==
LOC: HO.LHD 12:33
PROVIDERS: Visit Provider Internal Medicine Medical Oncology
DX: C90.00 Multiple myeloma not having achieved remission (principal)
CPT/HCPCS: 36415; 80053; 85025

== ENCOUNTER 2022-05-19 05:47 | Outpatient (REF) | payer OTHER, SELFPAY ==
[2022-05-19 13:43] LABS: MANUAL DIFF FLAG NO
[2022-05-19 14:25] LABS: Basophils Percent Auto 0.7 % (0-2); Eosinophils Absolute Auto 0.2 X10*3/uL (0.0-0.4); Eosinophils Percent Auto 4.9 % (0-4); Hematocrit 31.7 % (37.0-47.0); Hemoglobin 9.8 g/dl (12.0-16.0); Imm Gran Abs Auto 0.01 X10*3/uL (0.00-0.03); Imm Gran Pct Auto 0.2 % (0.0-0.4); Lymphocytes Absolute Auto 1.6 X10*3/uL (1.2-4.9); Lymphocytes Percent Auto 34.4 % (20-40); Mean Corpuscular HGB Conc 30.9 g/dl (31.0-35.0); Mean Corpuscular Hemoglobin 29.3 pg (27.0-33.0); Mean Corpuscular Volume 94.9 fL (80.0-98.0); Mean Platelet Volume 11.5 fL (9.4-12.3); Monocytes Absolute Auto 0.3 X10*3/uL (0.1-1.2); Monocytes Percent Auto 6.9 % (2-11); Neutrophils Absolute Auto 2.4 x10*3/uL (2.0-8.3); Neutrophils Percent Auto 52.9 % (45-73); Platelet Count 165 X10*3/uL (160-400); Red Blood Count 3.34 X10*6/uL (4.20-5.50); Red Cell Distribution Width 14.9 % (11.0-16.0); White Blood Count 4.5 X10*3/uL (4.8-10.8)
[2022-05-19 15:12] LABS: Alanine Aminotransferase 6 U/L (0-31); Albumin Level 3.4 g/dL (3.5-5.0); Alkaline Phosphatase 71 U/L (39-117); Anion Gap 13 (12-20); Aspartate Amino Transferase 12 U/L (5-31); Bilirubin Total 0.4 mg/dL (0.0-1.0); Blood Urea Nitrogen 17 mg/dL (9-16); Calcium 8.3 mg/dL (8.4-10.2); Carbon Dioxide 23 mmol/L (22-29); Chloride 113 mmol/L (96-108); Estimated Glomerular Filt Rate 45; Glucose Random 94 mg/dL (60-115); Potassium 3.6 mmol/L (3.3-5.1); Sodium 145 mmol/L (135-145); Total Protein 5.8 g/dL (6.5-8.0)
== END 2022-05-19 05:48 | disposition home or self-care (01) ==
LOC: HO.LHD 05:47
PROVIDERS: Visit Provider Internal Medicine Medical Oncology
DX: C90.00 Multiple myeloma not having achieved remission (principal)
CPT/HCPCS: 36415; 80053; 85025

== ENCOUNTER 2022-05-26 05:44 | Outpatient (REF) | payer OTHER, SELFPAY | END 2022-05-26 05:45 | disposition home or self-care (01) | LOC: HO.LHD 05:44 | PROVIDERS: Visit Provider Internal Medicine Medical Oncology | DX: Z13.89 Encounter for screening for other disorder (principal) ==

== ENCOUNTER 2022-06-02 05:45 | Outpatient (REF) | payer OTHER, SELFPAY ==
[2022-06-02 14:15] LABS: MANUAL DIFF FLAG NO
[2022-06-02 14:18] LABS: Basophils Percent Auto 0.5 % (0-2); Eosinophils Absolute Auto 0.2 X10*3/uL (0.0-0.4); Eosinophils Percent Auto 5.2 % (0-4); Hemoglobin 10.4 g/dl (12.0-16.0); Imm Gran Abs Auto 0.02 X10*3/uL (0.00-0.03); Imm Gran Pct Auto 0.5 % (0.0-0.4); Lymphocytes Absolute Auto 1.1 X10*3/uL (1.2-4.9); Lymphocytes Percent Auto 28.1 % (20-40); Mean Corpuscular HGB Conc 31.5 g/dl (31.0-35.0); Mean Corpuscular Hemoglobin 29.5 pg (27.0-33.0); Mean Corpuscular Volume 93.8 fL (80.0-98.0); Monocytes Absolute Auto 0.2 X10*3/uL (0.1-1.2); Monocytes Percent Auto 5.2 % (2-11); Neutrophils Absolute Auto 2.4 x10*3/uL (2.0-8.3); Neutrophils Percent Auto 60.5 % (45-73); Platelet Count 141 X10*3/uL (160-400); Red Blood Count 3.52 X10*6/uL (4.20-5.50); Red Cell Distribution Width 14.9 % (11.0-16.0); White Blood Count 3.9 X10*3/uL (4.8-10.8)
[2022-06-02 15:06] LABS: Alanine Aminotransferase < 6 U/L (0-31); Albumin Level 3.3 g/dL (3.5-5.0); Alkaline Phosphatase 78 U/L (39-117); Anion Gap 11 (12-20); Aspartate Amino Transferase 12 U/L (5-31); Bilirubin Total 0.3 mg/dL (0.0-1.0); Blood Urea Nitrogen 14 mg/dL (9-16); Calcium 8.4 mg/dL (8.4-10.2); Carbon Dioxide 27 mmol/L (22-29); Chloride 110 mmol/L (96-108); Estimated Glomerular Filt Rate 48; Glucose Random 90 mg/dL (60-115); Potassium 3.6 mmol/L (3.3-5.1); Sodium 144 mmol/L (135-145); Total Protein 5.7 g/dL (6.5-8.0)
== END 2022-06-02 05:46 | disposition home or self-care (01) ==
LOC: HO.LHD 05:45
PROVIDERS: Visit Provider Internal Medicine Medical Oncology
DX: C90.00 Multiple myeloma not having achieved remission (principal)
CPT/HCPCS: 36415; 80053; 85025

== ENCOUNTER 2022-06-09 11:40 | Outpatient (REF) | payer OTHER, SELFPAY ==
[2022-06-09 10:10] LABS: MANUAL DIFF FLAG NO
[2022-06-09 10:15] LABS: Basophils Percent Auto 0.5 % (0-2); Eosinophils Absolute Auto 0.2 X10*3/uL (0.0-0.4); Eosinophils Percent Auto 4.2 % (0-4); Hematocrit 32.6 % (37.0-47.0); Hemoglobin 10.2 g/dl (12.0-16.0); Imm Gran Abs Auto 0.03 X10*3/uL (0.00-0.03); Imm Gran Pct Auto 0.7 % (0.0-0.4); Lymphocytes Absolute Auto 1.2 X10*3/uL (1.2-4.9); Lymphocytes Percent Auto 29.9 % (20-40); Mean Corpuscular HGB Conc 31.3 g/dl (31.0-35.0); Mean Corpuscular Hemoglobin 29.3 pg (27.0-33.0); Mean Corpuscular Volume 93.7 fL (80.0-98.0); Mean Platelet Volume 11.6 fL (9.4-12.3); Monocytes Absolute Auto 0.6 X10*3/uL (0.1-1.2); Neutrophils Percent Auto 50.7 % (45-73); Platelet Count 127 X10*3/uL (160-400); Red Blood Count 3.48 X10*6/uL (4.20-5.50); Red Cell Distribution Width 15.2 % (11.0-16.0)
[2022-06-09 11:28] LABS: Alanine Aminotransferase 11 U/L (0-31); Albumin Level 3.5 g/dL (3.5-5.0); Alkaline Phosphatase 79 U/L (39-117); Anion Gap 14 (12-20); Aspartate Amino Transferase 14 U/L (5-31); Bilirubin Total 0.5 mg/dL (0.0-1.0); Blood Urea Nitrogen 19 mg/dL (9-16); Calcium 8.2 mg/dL (8.4-10.2); Carbon Dioxide 22 mmol/L (22-29); Chloride 112 mmol/L (96-108); Estimated Glomerular Filt Rate 54; Glucose Random 86 mg/dL (60-115); Potassium 3.8 mmol/L (3.3-5.1); Sodium 144 mmol/L (135-145)
== END 2022-06-09 11:41 | disposition home or self-care (01) ==
LOC: HO.LHD 11:40
PROVIDERS: Visit Provider Internal Medicine Medical Oncology
DX: C90.00 Multiple myeloma not having achieved remission (principal)
CPT/HCPCS: 36415; 80053; 85025

== ENCOUNTER 2022-06-16 13:13 | Outpatient (REF) | payer OTHER, SELFPAY ==
[2022-06-16 12:59] LABS: Eosinophils Absolute Auto 0.2 X10*3/uL (0.0-0.4); Eosinophils Percent Auto 7.8 % (0-4); Hematocrit 29.8 % (37.0-47.0); Hemoglobin 9.3 g/dl (12.0-16.0); Imm Gran Abs Auto 0.01 X10*3/uL (0.00-0.03); Imm Gran Pct Auto 0.5 % (0.0-0.4); Lymphocytes Absolute Auto 0.8 X10*3/uL (1.2-4.9); Lymphocytes Percent Auto 42.7 % (20-40); MANUAL DIFF FLAG SCAN; Mean Corpuscular HGB Conc 31.2 g/dl (31.0-35.0); Mean Corpuscular Hemoglobin 29.2 pg (27.0-33.0); Mean Corpuscular Volume 93.7 fL (80.0-98.0); Mean Platelet Volume 12.1 fL (9.4-12.3); Monocytes Absolute Auto 0.2 X10*3/uL (0.1-1.2); Monocytes Percent Auto 9.9 % (2-11); Neutrophils Absolute Auto 0.7 x10*3/uL (2.0-8.3); Neutrophils Percent Auto 38.1 % (45-73); Platelet Count 112 X10*3/uL (160-400); Red Blood Count 3.18 X10*6/uL (4.20-5.50); SCAN SMEAR FLAG 1; White Blood Count 1.9 X10*3/uL (4.8-10.8)
[2022-06-16 13:22] LABS: SLIDE REVIEW VERIFIED
[2022-06-16 14:22] LABS: Alanine Aminotransferase 14 U/L (0-31); Alkaline Phosphatase 83 U/L (39-117); Anion Gap 9 (12-20); Aspartate Amino Transferase 13 U/L (5-31); Bilirubin Total 0.4 mg/dL (0.0-1.0); Blood Urea Nitrogen 13 mg/dL (9-16); Calcium 7.8 mg/dL (8.4-10.2); Carbon Dioxide 26 mmol/L (22-29); Chloride 105 mmol/L (96-108); Estimated Glomerular Filt Rate 47; Glucose Random 131 mg/dL (60-115); Potassium 3.4 mmol/L (3.3-5.1); Sodium 137 mmol/L (135-145); Total Protein 5.3 g/dL (6.5-8.0)
== END 2022-06-16 13:14 | disposition home or self-care (01) ==
LOC: HO.LHD 13:13
PROVIDERS: Visit Provider Internal Medicine Medical Oncology
DX: C90.00 Multiple myeloma not having achieved remission (principal)
CPT/HCPCS: 36415; 80053; 85025

== ENCOUNTER 2022-06-23 14:02 | Outpatient (REF) | payer OTHER, SELFPAY ==
[2022-06-23 11:02] LABS: MANUAL DIFF FLAG NO
[2022-06-23 11:13] LABS: Basophils Absolute Auto 0.1 X10*3/uL (0.0-0.2); Basophils Percent Auto 1.7 % (0-2); Eosinophils Absolute Auto 0.1 X10*3/uL (0.0-0.4); Eosinophils Percent Auto 3.2 % (0-4); Hematocrit 30.2 % (37.0-47.0); Hemoglobin 9.6 g/dl (12.0-16.0); Imm Gran Abs Auto 0.01 X10*3/uL (0.00-0.03); Imm Gran Pct Auto 0.3 % (0.0-0.4); Lymphocytes Absolute Auto 1.5 X10*3/uL (1.2-4.9); Lymphocytes Percent Auto 42.9 % (20-40); Mean Corpuscular HGB Conc 31.8 g/dl (31.0-35.0); Mean Corpuscular Volume 94.4 fL (80.0-98.0); Mean Platelet Volume 10.6 fL (9.4-12.3); Monocytes Absolute Auto 0.4 X10*3/uL (0.1-1.2); Monocytes Percent Auto 10.1 % (2-11); Neutrophils Absolute Auto 1.5 x10*3/uL (2.0-8.3); Neutrophils Percent Auto 41.8 % (45-73); Platelet Count 218 X10*3/uL (160-400); Red Cell Distribution Width 15.4 % (11.0-16.0); White Blood Count 3.5 X10*3/uL (4.8-10.8)
[2022-06-23 13:56] LABS: Alanine Aminotransferase 11 U/L (0-31); Albumin Level 3.1 g/dL (3.5-5.0); Alkaline Phosphatase 73 U/L (39-117); Anion Gap 10 (12-20); Aspartate Amino Transferase 10 U/L (5-31); Bilirubin Total 0.3 mg/dL (0.0-1.0); Blood Urea Nitrogen 16 mg/dL (9-16); Calcium 8.7 mg/dL (8.4-10.2); Carbon Dioxide 26 mmol/L (22-29); Chloride 109 mmol/L (96-108); Estimated Glomerular Filt Rate 40; Glucose Random 88 mg/dL (60-115); Potassium 3.9 mmol/L (3.3-5.1); Sodium 141 mmol/L (135-145); Total Protein 5.6 g/dL (6.5-8.0)
== END 2022-06-23 14:03 | disposition home or self-care (01) ==
LOC: HO.LHD 14:02
PROVIDERS: Visit Provider Internal Medicine Medical Oncology
DX: C90.00 Multiple myeloma not having achieved remission (principal)
CPT/HCPCS: 36415; 80053; 85025

== ENCOUNTER 2022-07-07 11:37 | Outpatient (REF) | payer OTHER, SELFPAY ==
[2022-07-07 10:09] LABS: MANUAL DIFF FLAG NO
[2022-07-07 10:12] LABS: Basophils Percent Auto 1.4 % (0-2); Eosinophils Absolute Auto 0.2 X10*3/uL (0.0-0.4); Eosinophils Percent Auto 7.6 % (0-4); Hematocrit 29.6 % (37.0-47.0); Hemoglobin 9.3 g/dl (12.0-16.0); Imm Gran Abs Auto 0.02 X10*3/uL (0.00-0.03); Imm Gran Pct Auto 0.7 % (0.0-0.4); Lymphocytes Absolute Auto 0.8 X10*3/uL (1.2-4.9); Lymphocytes Percent Auto 29.2 % (20-40); Mean Corpuscular HGB Conc 31.4 g/dl (31.0-35.0); Mean Corpuscular Hemoglobin 29.2 pg (27.0-33.0); Mean Corpuscular Volume 92.8 fL (80.0-98.0); Mean Platelet Volume 12.3 fL (9.4-12.3); Monocytes Absolute Auto 0.3 X10*3/uL (0.1-1.2); Monocytes Percent Auto 11.9 % (2-11); Neutrophils Absolute Auto 1.4 x10*3/uL (2.0-8.3); Neutrophils Percent Auto 49.2 % (45-73); Platelet Count 114 X10*3/uL (160-400); Red Blood Count 3.19 X10*6/uL (4.20-5.50); Red Cell Distribution Width 15.5 % (11.0-16.0); White Blood Count 2.8 X10*3/uL (4.8-10.8)
[2022-07-07 10:47] LABS: Alanine Aminotransferase 7 U/L (0-31); Alkaline Phosphatase 70 U/L (39-117); Anion Gap 12 (12-20); Aspartate Amino Transferase 9 U/L (5-31); Bilirubin Total 0.4 mg/dL (0.0-1.0); Blood Urea Nitrogen 11 mg/dL (9-16); Carbon Dioxide 22 mmol/L (22-29); Chloride 114 mmol/L (96-108); Estimated Glomerular Filt Rate 52; Glucose Random 94 mg/dL (60-115); Potassium 3.5 mmol/L (3.3-5.1); Sodium 144 mmol/L (135-145); Total Protein 5.2 g/dL (6.5-8.0)
== END 2022-07-07 11:38 | disposition home or self-care (01) ==
LOC: HO.LHD 11:37
PROVIDERS: Visit Provider Internal Medicine Medical Oncology
DX: C90.00 Multiple myeloma not having achieved remission (principal)
CPT/HCPCS: 36415; 80053; 85025

== ENCOUNTER 2022-07-14 11:24 | Outpatient (REF) | payer OTHER, SELFPAY ==
[2022-07-14 10:50] LABS: Hematocrit 34.2 % (37.0-47.0); Hemoglobin 10.6 g/dl (12.0-16.0); Mean Corpuscular Hemoglobin 29.4 pg (27.0-33.0); Mean Platelet Volume 11.7 fL (9.4-12.3); Platelet Count 135 X10*3/uL (160-400); Red Cell Distribution Width 15.9 % (11.0-16.0); WBC ABN SCTR FOR CBC 1; White Blood Count 4.8 X10*3/uL (4.8-10.8)
[2022-07-14 11:20] LABS: Atypical Lymph Absolute Manual 0.1 x10*3/uL; Atypical Lymphs Percent Manual 3 % (0-6); Band Neutrophils Percent 6 % (3-5); Eosinophils Absolute Manual 0.7 X10*3/uL (0.0-0.4); Eosinophils Percent Manual 15 % (0-4); Lymphocytes Absolute Manual 2.2 X10*3/uL (1.2-4.9); Lymphocytes Percent Manual 45 % (20-40); Monocytes Absolute Manual 0.3 X10*3/uL (0.1-1.2); Monocytes Percent Manual 7 % (2-11); Neutrophils Absolute Manual 1.4 X10*3/uL (2.0-8.3); Neutrophils Percent Manual 24 % (45-73)
[2022-07-14 11:26] LABS: Macrocytosis 1+ (5-14) /OIF; Ovalocytes 1+ (5-14) /OIF; Platelet Estimate SLIGHTLY DECREASED (NORMAL); Platelet Morphology Comment NORMAL; RBC Morphology NOTED
[2022-07-14 12:02] LABS: Alanine Aminotransferase 10 U/L (0-31); Albumin Level 3.5 g/dL (3.5-5.0); Alkaline Phosphatase 86 U/L (39-117); Anion Gap 12 (12-20); Aspartate Amino Transferase 12 U/L (5-31); Bilirubin Total 0.4 mg/dL (0.0-1.0); Blood Urea Nitrogen 13 mg/dL (9-16); Calcium 8.9 mg/dL (8.4-10.2); Carbon Dioxide 26 mmol/L (22-29); Chloride 108 mmol/L (96-108); Estimated Glomerular Filt Rate 39; Glucose Random 123 mg/dL (60-115); Potassium 3.3 mmol/L (3.3-5.1); Sodium 143 mmol/L (135-145); Total Protein 6.2 g/dL (6.5-8.0)
== END 2022-07-14 11:25 | disposition home or self-care (01) ==
LOC: HO.LHD 11:24
PROVIDERS: Visit Provider Internal Medicine Medical Oncology
DX: C90.00 Multiple myeloma not having achieved remission (principal)
CPT/HCPCS: 36415; 80053; 85007; 85027

== ENCOUNTER 2022-07-21 07:23 | Outpatient (REF) | payer OTHER, SELFPAY ==
[2022-07-21 10:34] LABS: MANUAL DIFF FLAG NO
[2022-07-21 10:51] LABS: Basophils Absolute Auto 0.1 X10*3/uL (0.0-0.2); Basophils Percent Auto 0.9 % (0-2); Eosinophils Absolute Auto 0.4 X10*3/uL (0.0-0.4); Eosinophils Percent Auto 6.7 % (0-4); Hematocrit 28.4 % (37.0-47.0); Hemoglobin 8.8 g/dl (12.0-16.0); Imm Gran Abs Auto 0.06 X10*3/uL (0.00-0.03); Imm Gran Pct Auto 1.1 % (0.0-0.4); Lymphocytes Absolute Auto 1.1 X10*3/uL (1.2-4.9); Lymphocytes Percent Auto 20.6 % (20-40); Mean Corpuscular Hemoglobin 29.1 pg (27.0-33.0); Mean Platelet Volume 11.7 fL (9.4-12.3); Monocytes Absolute Auto 0.3 X10*3/uL (0.1-1.2); Monocytes Percent Auto 5.7 % (2-11); Neutrophils Absolute Auto 3.5 x10*3/uL (2.0-8.3); Platelet Count 144 X10*3/uL (160-400); Red Blood Count 3.02 X10*6/uL (4.20-5.50); Red Cell Distribution Width 16.8 % (11.0-16.0); White Blood Count 5.4 X10*3/uL (4.8-10.8)
[2022-07-21 11:32] LABS: Alanine Aminotransferase 10 U/L (0-31); Alkaline Phosphatase 79 U/L (39-117); Anion Gap 12 (12-20); Aspartate Amino Transferase 12 U/L (5-31); Bilirubin Total 0.4 mg/dL (0.0-1.0); Blood Urea Nitrogen 20 mg/dL (9-16); Carbon Dioxide 23 mmol/L (22-29); Chloride 114 mmol/L (96-108); Estimated Glomerular Filt Rate 43; Glucose Random 96 mg/dL (60-115); Potassium 3.8 mmol/L (3.3-5.1); Sodium 145 mmol/L (135-145); Total Protein 5.2 g/dL (6.5-8.0)
== END 2022-07-21 07:24 | disposition home or self-care (01) ==
LOC: HO.LHD 07:23
PROVIDERS: Visit Provider Internal Medicine Medical Oncology
DX: C90.00 Multiple myeloma not having achieved remission (principal)
CPT/HCPCS: 36415; 80053; 85025

== ENCOUNTER 2022-07-28 07:11 | Outpatient (REF) | payer OTHER, SELFPAY ==
[2022-07-28 11:26] LABS: Hematocrit 30.2 % (37.0-47.0); Hemoglobin 9.1 g/dl (12.0-16.0); Mean Corpuscular HGB Conc 30.1 g/dl (31.0-35.0); Mean Corpuscular Volume 96.2 fL (80.0-98.0); Mean Platelet Volume 10.6 fL (9.4-12.3); Platelet Count 176 X10*3/uL (160-400); Red Blood Count 3.14 X10*6/uL (4.20-5.50); Red Cell Distribution Width 17.7 % (11.0-16.0)
[2022-07-28 11:27] LABS: WBC ABN SCTR FOR CBC 1
[2022-07-28 11:52] LABS: Band Neutrophils Percent 19 % (3-5); Basophils Percent Manual 2 % (0-2); Eosinophils Percent Manual 2 % (0-4); Lymphocytes Percent Manual 9 % (20-40); Monocytes Percent Manual 6 % (2-11); Neutrophils Percent Manual 62 % (45-73)
[2022-07-28 11:56] LABS: Macrocytosis 1+ (5-14) /OIF; Ovalocytes 1+ (5-14) /OIF; Platelet Estimate NORMAL (NORMAL); Platelet Morphology Comment NORMAL; Polychromasia 1+ (0-2) /OIF; RBC Morphology NOTED; Spherocytes 1+ (0-2) /OIF; Tear Drop Cells 1+ (0-2) /OIF
[2022-07-28 12:22] LABS: Alanine Aminotransferase 6 U/L (0-31); Albumin Level 3.1 g/dL (3.5-5.0); Alkaline Phosphatase 91 U/L (39-117); Anion Gap 16 (12-20); Aspartate Amino Transferase 9 U/L (5-31); Bilirubin Total 0.5 mg/dL (0.0-1.0); Blood Urea Nitrogen 12 mg/dL (9-16); Calcium 8.6 mg/dL (8.4-10.2); Carbon Dioxide 23 mmol/L (22-29); Chloride 110 mmol/L (96-108); Estimated Glomerular Filt Rate 49; Glucose Random 99 mg/dL (60-115); Potassium 3.6 mmol/L (3.3-5.1); Sodium 145 mmol/L (135-145); Total Protein 5.7 g/dL (6.5-8.0)
[2022-07-28 12:25] LABS: Basophils Abs Manual 0.2 X10*3/uL (0.0-0.2); Eosinophils Absolute Manual 0.2 X10*3/uL (0.0-0.4); Lymphocytes Absolute Manual 0.8 X10*3/uL (1.2-4.9); Monocytes Absolute Manual 0.5 X10*3/uL (0.1-1.2); Neutrophils Absolute Manual 6.9 X10*3/uL (2.0-8.3); White Blood Count 8.5 X10*3/uL (4.8-10.8)
== END 2022-07-28 07:12 | disposition home or self-care (01) ==
LOC: HO.LHD 07:11
PROVIDERS: Visit Provider Internal Medicine Medical Oncology
DX: C90.00 Multiple myeloma not having achieved remission (principal)
CPT/HCPCS: 36415; 80053; 85007; 85027

== ENCOUNTER 2022-08-04 06:25 | Outpatient (REF) | payer OTHER, SELFPAY ==
[2022-08-04 10:45] LABS: Basophils Absolute Auto 0.1 X10*3/uL (0.0-0.2); Basophils Percent Auto 2.2 % (0-2); Eosinophils Absolute Auto 0.3 X10*3/uL (0.0-0.4); Eosinophils Percent Auto 13.4 % (0-4); Hematocrit 27.4 % (37.0-47.0); Hemoglobin 8.7 g/dl (12.0-16.0); Imm Gran Abs Auto 0.02 X10*3/uL (0.00-0.03); Imm Gran Pct Auto 0.9 % (0.0-0.4); Lymphocytes Absolute Auto 0.9 X10*3/uL (1.2-4.9); Lymphocytes Percent Auto 38.1 % (20-40); Mean Corpuscular HGB Conc 31.8 g/dl (31.0-35.0); Mean Corpuscular Hemoglobin 29.5 pg (27.0-33.0); Mean Corpuscular Volume 92.9 fL (80.0-98.0); Mean Platelet Volume 12.8 fL (9.4-12.3); Monocytes Absolute Auto 0.2 X10*3/uL (0.1-1.2); Monocytes Percent Auto 10.4 % (2-11); Neutrophils Absolute Auto 0.8 x10*3/uL (2.0-8.3); Platelet Count 156 X10*3/uL (160-400); Red Blood Count 2.95 X10*6/uL (4.20-5.50); Red Cell Distribution Width 16.8 % (11.0-16.0); SCAN SMEAR FLAG 1
[2022-08-04 10:46] LABS: White Blood Count 2.3 X10*3/uL (4.8-10.8)
[2022-08-04 10:48] LABS: MANUAL DIFF FLAG SCAN
[2022-08-04 11:10] LABS: SLIDE REVIEW VERIFIED
[2022-08-04 12:07] LABS: Alanine Aminotransferase < 6 U/L (0-31); Alkaline Phosphatase 75 U/L (39-117); Anion Gap 8 (12-20); Aspartate Amino Transferase 8 U/L (5-31); Bilirubin Total 0.4 mg/dL (0.0-1.0); Blood Urea Nitrogen 16 mg/dL (9-16); Calcium 8.2 mg/dL (8.4-10.2); Carbon Dioxide 28 mmol/L (22-29); Chloride 108 mmol/L (96-108); Estimated Glomerular Filt Rate 44; Glucose Random 97 mg/dL (60-115); Potassium 3.8 mmol/L (3.3-5.1); Sodium 140 mmol/L (135-145); Total Protein 5.3 g/dL (6.5-8.0)
== END 2022-08-04 06:26 | disposition home or self-care (01) ==
LOC: HO.LHD 06:25
PROVIDERS: Visit Provider Internal Medicine Medical Oncology
DX: C90.00 Multiple myeloma not having achieved remission (principal)
CPT/HCPCS: 36415; 80053; 85025

== ENCOUNTER 2022-08-11 06:08 | Outpatient (REF) | payer OTHER, SELFPAY ==
[2022-08-11 11:04] LABS: Basophils Absolute Auto 0.1 X10*3/uL (0.0-0.2); Basophils Percent Auto 2.4 % (0-2); Eosinophils Absolute Auto 0.4 X10*3/uL (0.0-0.4); Eosinophils Percent Auto 15.2 % (0-4); Hematocrit 32.2 % (37.0-47.0); Hemoglobin 9.9 g/dl (12.0-16.0); Imm Gran Abs Auto 0.02 X10*3/uL (0.00-0.03); Imm Gran Pct Auto 0.7 % (0.0-0.4); Lymphocytes Absolute Auto 1.2 X10*3/uL (1.2-4.9); Lymphocytes Percent Auto 39.7 % (20-40); MANUAL DIFF FLAG SCAN; Mean Corpuscular HGB Conc 30.7 g/dl (31.0-35.0); Mean Corpuscular Hemoglobin 29.1 pg (27.0-33.0); Mean Corpuscular Volume 94.7 fL (80.0-98.0); Mean Platelet Volume 12.8 fL (9.4-12.3); Monocytes Absolute Auto 0.3 X10*3/uL (0.1-1.2); Monocytes Percent Auto 11.7 % (2-11); Neutrophils Absolute Auto 0.9 x10*3/uL (2.0-8.3); Neutrophils Percent Auto 30.3 % (45-73); Platelet Count 168 X10*3/uL (160-400); Red Cell Distribution Width 17.5 % (11.0-16.0); SCAN SMEAR FLAG 1; White Blood Count 2.9 X10*3/uL (4.8-10.8)
[2022-08-11 11:32] LABS: SLIDE REVIEW VERIFIED
[2022-08-11 11:35] LABS: Alanine Aminotransferase 8 U/L (0-31); Albumin Level 3.3 g/dL (3.5-5.0); Alkaline Phosphatase 80 U/L (39-117); Anion Gap 12 (12-20); Aspartate Amino Transferase 10 U/L (5-31); Bilirubin Total 0.4 mg/dL (0.0-1.0); Blood Urea Nitrogen 17 mg/dL (9-16); Calcium 8.8 mg/dL (8.4-10.2); Carbon Dioxide 26 mmol/L (22-29); Chloride 109 mmol/L (96-108); Estimated Glomerular Filt Rate 34; Glucose Random 87 mg/dL (60-115); Potassium 4.2 mmol/L (3.3-5.1); Sodium 143 mmol/L (135-145); Total Protein 5.9 g/dL (6.5-8.0)
== END 2022-08-11 06:09 | disposition home or self-care (01) ==
LOC: HO.LHD 06:08
PROVIDERS: Visit Provider Internal Medicine Medical Oncology
DX: C90.00 Multiple myeloma not having achieved remission (principal)
CPT/HCPCS: 36415; 80053; 85025

== ENCOUNTER 2022-08-18 06:52 | Outpatient (REF) | payer OTHER, SELFPAY ==
[2022-08-18 10:25] LABS: Basophils Absolute Auto 0.1 X10*3/uL (0.0-0.2); Basophils Percent Auto 2.1 % (0-2); Eosinophils Absolute Auto 0.2 X10*3/uL (0.0-0.4); Eosinophils Percent Auto 9.1 % (0-4); Hematocrit 29.2 % (37.0-47.0); Imm Gran Abs Auto 0.02 X10*3/uL (0.00-0.03); Imm Gran Pct Auto 0.8 % (0.0-0.4); Lymphocytes Absolute Auto 1.1 X10*3/uL (1.2-4.9); MANUAL DIFF FLAG SCAN; Mean Corpuscular HGB Conc 30.8 g/dl (31.0-35.0); Mean Corpuscular Volume 94.5 fL (80.0-98.0); Mean Platelet Volume 11.8 fL (9.4-12.3); Monocytes Absolute Auto 0.3 X10*3/uL (0.1-1.2); Monocytes Percent Auto 10.7 % (2-11); Neutrophils Absolute Auto 0.8 x10*3/uL (2.0-8.3); Neutrophils Percent Auto 33.3 % (45-73); Platelet Count 144 X10*3/uL (160-400); Red Blood Count 3.09 X10*6/uL (4.20-5.50); Red Cell Distribution Width 17.4 % (11.0-16.0); SCAN SMEAR FLAG 1
[2022-08-18 10:29] LABS: White Blood Count 2.4 X10*3/uL (4.8-10.8)
[2022-08-18 10:31] LABS: Mean Corpuscular Hemoglobin 29.1 pg (27.0-33.0)
[2022-08-18 10:49] LABS: SLIDE REVIEW VERIFIED
[2022-08-18 11:32] LABS: Alanine Aminotransferase < 6 U/L (0-31); Albumin Level 3.1 g/dL (3.5-5.0); Alkaline Phosphatase 68 U/L (39-117); Anion Gap 10 (12-20); Aspartate Amino Transferase 8 U/L (5-31); Bilirubin Total 0.4 mg/dL (0.0-1.0); Blood Urea Nitrogen 15 mg/dL (9-16); Calcium 8.5 mg/dL (8.4-10.2); Carbon Dioxide 26 mmol/L (22-29); Chloride 110 mmol/L (96-108); Estimated Glomerular Filt Rate 44; Glucose Random 85 mg/dL (60-115); Potassium 3.5 mmol/L (3.3-5.1); Sodium 142 mmol/L (135-145); Total Protein 5.3 g/dL (6.5-8.0)
== END 2022-08-18 06:53 | disposition home or self-care (01) ==
LOC: HO.LHD 06:52
PROVIDERS: Visit Provider Internal Medicine Medical Oncology
DX: C90.00 Multiple myeloma not having achieved remission (principal)
CPT/HCPCS: 36415; 80053; 85025

== ENCOUNTER 2022-08-25 | Outpatient (REF) | payer OTHER, SELFPAY ==
[2022-08-25 12:37] LABS: MANUAL DIFF FLAG NO
[2022-08-25 12:43] LABS: Basophils Absolute Auto 0.1 X10*3/uL (0.0-0.2); Basophils Percent Auto 2.5 % (0-2); Eosinophils Absolute Auto 0.1 X10*3/uL (0.0-0.4); Eosinophils Percent Auto 4.4 % (0-4); Hematocrit 30.5 % (37.0-47.0); Hemoglobin 9.4 g/dl (12.0-16.0); Imm Gran Abs Auto 0.01 X10*3/uL (0.00-0.03); Imm Gran Pct Auto 0.3 % (0.0-0.4); Lymphocytes Absolute Auto 1.5 X10*3/uL (1.2-4.9); Lymphocytes Percent Auto 45.8 % (20-40); Mean Corpuscular HGB Conc 30.8 g/dl (31.0-35.0); Mean Corpuscular Hemoglobin 29.7 pg (27.0-33.0); Mean Corpuscular Volume 96.5 fL (80.0-98.0); Mean Platelet Volume 11.2 fL (9.4-12.3); Monocytes Absolute Auto 0.4 X10*3/uL (0.1-1.2); Monocytes Percent Auto 12.5 % (2-11); Neutrophils Absolute Auto 1.1 x10*3/uL (2.0-8.3); Neutrophils Percent Auto 34.5 % (45-73); Platelet Count 191 X10*3/uL (160-400); Red Blood Count 3.16 X10*6/uL (4.20-5.50); Red Cell Distribution Width 18.6 % (11.0-16.0); White Blood Count 3.2 X10*3/uL (4.8-10.8)
[2022-08-25 13:33] LABS: Alanine Aminotransferase 6 U/L (0-31); Albumin Level 3.3 g/dL (3.5-5.0); Alkaline Phosphatase 70 U/L (39-117); Anion Gap 13 (12-20); Aspartate Amino Transferase 12 U/L (5-31); Bilirubin Total 0.3 mg/dL (0.0-1.0); Blood Urea Nitrogen 13 mg/dL (9-16); Calcium 8.2 mg/dL (8.4-10.2); Carbon Dioxide 22 mmol/L (22-29); Chloride 113 mmol/L (96-108); Estimated Glomerular Filt Rate 45; Glucose Random 81 mg/dL (60-115); Potassium 3.7 mmol/L (3.3-5.1); Sodium 144 mmol/L (135-145); Total Protein 5.6 g/dL (6.5-8.0)
[2022-08-25 13:39] LABS: Cholesterol 172 mg/dL; HDL Cholesterol 36 mg/dL; LDL Cholesterol Calculated 112 mg/dl; Triglycerides 120 mg/dL
[2022-08-25 13:47] LABS: Vitamin D 25-OH Total 44.8 ng/mL (>30)
== END 2022-08-25 00:01 ==
LOC: HO.LHD
PROVIDERS: Internal Medicine; Visit Provider Internal Medicine Medical Oncology
DX: Z00.01 Encounter for general adult medical examination with abnormal findings (principal); I10 Essential (primary) hypertension; N95.9 Unspecified menopausal and perimenopausal disorder; C90.00 Multiple myeloma not having achieved remission
CPT/HCPCS: 36415; 80053; 80061; 82306; 85025

== ENCOUNTER 2022-09-01 06:59 | Outpatient (REF) | payer OTHER, SELFPAY ==
[2022-09-01 09:40] LABS: MANUAL DIFF FLAG NO
[2022-09-01 09:53] LABS: Basophils Absolute Auto 0.1 X10*3/uL (0.0-0.2); Basophils Percent Auto 1.3 % (0-2); Eosinophils Absolute Auto 0.2 X10*3/uL (0.0-0.4); Eosinophils Percent Auto 4.3 % (0-4); Hematocrit 29.9 % (37.0-47.0); Hemoglobin 9.2 g/dl (12.0-16.0); Imm Gran Abs Auto 0.01 X10*3/uL (0.00-0.03); Imm Gran Pct Auto 0.3 % (0.0-0.4); Lymphocytes Absolute Auto 1.2 X10*3/uL (1.2-4.9); Lymphocytes Percent Auto 31.5 % (20-40); Mean Corpuscular HGB Conc 30.8 g/dl (31.0-35.0); Mean Corpuscular Hemoglobin 29.2 pg (27.0-33.0); Mean Corpuscular Volume 94.9 fL (80.0-98.0); Mean Platelet Volume 10.6 fL (9.4-12.3); Monocytes Absolute Auto 0.3 X10*3/uL (0.1-1.2); Monocytes Percent Auto 7.1 % (2-11); Neutrophils Absolute Auto 2.2 x10*3/uL (2.0-8.3); Neutrophils Percent Auto 55.5 % (45-73); Platelet Count 172 X10*3/uL (160-400); Red Blood Count 3.15 X10*6/uL (4.20-5.50); Red Cell Distribution Width 17.8 % (11.0-16.0); White Blood Count 3.9 X10*3/uL (4.8-10.8)
[2022-09-01 10:13] LABS: Alanine Aminotransferase < 6 U/L (0-31); Alkaline Phosphatase 77 U/L (39-117); Anion Gap 13 (12-20); Aspartate Amino Transferase 11 U/L (5-31); Bilirubin Total 0.3 mg/dL (0.0-1.0); Blood Urea Nitrogen 17 mg/dL (9-16); Calcium 7.8 mg/dL (8.4-10.2); Carbon Dioxide 19 mmol/L (22-29); Chloride 115 mmol/L (96-108); Estimated Glomerular Filt Rate 49; Glucose Random 93 mg/dL (60-115); Potassium 3.8 mmol/L (3.3-5.1); Sodium 143 mmol/L (135-145); Total Protein 5.3 g/dL (6.5-8.0)
== END 2022-09-01 07:00 | disposition home or self-care (01) ==
LOC: HO.LHD 06:59
PROVIDERS: Visit Provider Internal Medicine Medical Oncology
DX: C90.00 Multiple myeloma not having achieved remission (principal)
CPT/HCPCS: 36415; 80053; 85025

== ENCOUNTER 2022-09-08 | Outpatient (REF) | payer OTHER, SELFPAY ==
[2022-09-08 12:33] LABS: MANUAL DIFF FLAG NO
[2022-09-08 12:38] LABS: Basophils Percent Auto 0.6 % (0-2); Eosinophils Absolute Auto 0.3 X10*3/uL (0.0-0.4); Eosinophils Percent Auto 9.1 % (0-4); Hematocrit 30.3 % (37.0-47.0); Hemoglobin 9.3 g/dl (12.0-16.0); Lymphocytes Absolute Auto 1.1 X10*3/uL (1.2-4.9); Lymphocytes Percent Auto 33.2 % (20-40); Mean Corpuscular HGB Conc 30.7 g/dl (31.0-35.0); Mean Corpuscular Hemoglobin 29.3 pg (27.0-33.0); Mean Corpuscular Volume 95.6 fL (80.0-98.0); Mean Platelet Volume 12.4 fL (9.4-12.3); Monocytes Absolute Auto 0.2 X10*3/uL (0.1-1.2); Monocytes Percent Auto 6.5 % (2-11); Neutrophils Absolute Auto 1.7 x10*3/uL (2.0-8.3); Neutrophils Percent Auto 50.6 % (45-73); Platelet Count 162 X10*3/uL (160-400); Red Blood Count 3.17 X10*6/uL (4.20-5.50); Red Cell Distribution Width 17.1 % (11.0-16.0); White Blood Count 3.4 X10*3/uL (4.8-10.8)
[2022-09-08 13:16] LABS: Alanine Aminotransferase 6 U/L (0-31); Alkaline Phosphatase 72 U/L (39-117); Anion Gap 12 (12-20); Aspartate Amino Transferase 13 U/L (5-31); Bilirubin Total 0.4 mg/dL (0.0-1.0); Blood Urea Nitrogen 13 mg/dL (9-16); Calcium 8.2 mg/dL (8.4-10.2); Carbon Dioxide 27 mmol/L (22-29); Chloride 111 mmol/L (96-108); Estimated Glomerular Filt Rate 41; Glucose Random 95 mg/dL (60-115); Sodium 146 mmol/L (135-145); Total Protein 5.2 g/dL (6.5-8.0)
== END 2022-09-08 00:01 | disposition home or self-care (01) ==
LOC: HO.LHD
PROVIDERS: Visit Provider Internal Medicine Medical Oncology
DX: C90.00 Multiple myeloma not having achieved remission (principal)
CPT/HCPCS: 36415; 80053; 85025

== ENCOUNTER 2022-09-15 09:14 | Outpatient (REF) | payer OTHER, SELFPAY ==
[2022-09-15 12:13] LABS: MANUAL DIFF FLAG NO
[2022-09-15 12:37] LABS: Basophils Percent Auto 0.9 % (0-2); Eosinophils Absolute Auto 0.3 X10*3/uL (0.0-0.4); Eosinophils Percent Auto 7.1 % (0-4); Hematocrit 32.1 % (37.0-47.0); Hemoglobin 10.1 g/dl (12.0-16.0); Imm Gran Abs Auto 0.01 X10*3/uL (0.00-0.03); Imm Gran Pct Auto 0.3 % (0.0-0.4); Lymphocytes Absolute Auto 1.5 X10*3/uL (1.2-4.9); Lymphocytes Percent Auto 42.3 % (20-40); Mean Corpuscular HGB Conc 31.5 g/dl (31.0-35.0); Mean Corpuscular Hemoglobin 29.6 pg (27.0-33.0); Mean Corpuscular Volume 94.1 fL (80.0-98.0); Monocytes Absolute Auto 0.4 X10*3/uL (0.1-1.2); Monocytes Percent Auto 11.9 % (2-11); Neutrophils Absolute Auto 1.3 x10*3/uL (2.0-8.3); Neutrophils Percent Auto 37.5 % (45-73); Platelet Count 149 X10*3/uL (160-400); Red Blood Count 3.41 X10*6/uL (4.20-5.50); Red Cell Distribution Width 16.5 % (11.0-16.0); White Blood Count 3.5 X10*3/uL (4.8-10.8)
[2022-09-15 14:07] LABS: Alanine Aminotransferase < 6 U/L (0-31); Albumin Level 3.2 g/dL (3.5-5.0); Alkaline Phosphatase 71 U/L (39-117); Anion Gap 12 (12-20); Aspartate Amino Transferase 12 U/L (5-31); Bilirubin Total 0.3 mg/dL (0.0-1.0); Blood Urea Nitrogen 17 mg/dL (9-16); Calcium 9.1 mg/dL (8.4-10.2); Carbon Dioxide 27 mmol/L (22-29); Chloride 109 mmol/L (96-108); Estimated Glomerular Filt Rate 42; Glucose Random 103 mg/dL (60-115); Potassium 3.2 mmol/L (3.3-5.1); Sodium 145 mmol/L (135-145); Total Protein 5.5 g/dL (6.5-8.0)
[2022-09-18 15:33] LABS: IgA 326 mg/dL (70-320); IgG 991 mg/dL (600-1540); IgM 58 mg/dL (50-300)
== END 2022-09-15 09:15 | disposition home or self-care (01) ==
LOC: HO.LHD 09:14
PROVIDERS: Visit Provider Internal Medicine Medical Oncology
DX: C90.00 Multiple myeloma not having achieved remission (principal)
CPT/HCPCS: 36415; 80053; 82784; 85025; 86334

== ENCOUNTER 2022-09-20 13:52 | Outpatient (REF) | payer OTHER, SELFPAY ==
--- NOTE | ~2022-09-20 | MM_ITS ---
EXAMINATION: MM SCREENING DIGITAL BREAST TOMOSYNTHESIS, BILATERAL CLINICAL INFORMATION: Screening. Asymptomatic. The lifetime risk of breast cancer based on the Tyrer-Cuzick Model is 2.6%. COMPARISON: Mammography: June 08, 2020 and studies dating back to April 25, 2012 TECHNIQUE: Digital breast tomosynthesis is performed in both the craniocaudal and mediolateral oblique views along with computer-aided detection (CAD). Synthesized 2D images are generated from the tomosynthesis. Left exaggerated craniocaudal view performed as well as right cleavage view. FINDINGS: There are scattered areas of fibroglandular density (ACR BI-RADS breast composition Category b). There are no significant masses, abnormal calcifications, or other abnormalities. MM/MM tomosynthesis screening BI IMPRESSION: No significant changes from prior exam. ASSESSMENT: BI-RADS 1: Negative RECOMMENDATION: Routine annual mammography screening. This patient's information was entered into a reminder system with a target due date for their next mammogram.
--- NOTE | ~2022-09-20 | MM_ITS ---
EXAMINATION: BONE DENSITOMETRY CLINICAL INDICATION: Postmenopausal. COMPARISON: Previous BD dated 07/14/2014 and baseline BD dated 03/11/2007. TECHNIQUE: Using a [employer] DXA System (software version: 13.1) manufactured by [employer], dual-energy x-ray absorptiometry was performed of the lumbar spine and left hip. The images are of good technical quality. Summary results are attached. FINDINGS: AP SPINE L1-L4: Current: BMD 1.131 g/cm2, Z-score 0.9, T-score -0.4, normal, 3.1% decrease from previous, 5.2% increase from baseline (<5% change is not significant). Prior: BMD 1.167 g/cm2. Baseline: BMD 1.075 g/cm2. LEFT FEMUR, NECK: Current: BMD 0.847 g/cm2, Z-score 0.3, T-score -1.4, osteopenia. Prior: BMD 0.879 g/cm2. Baseline: BMD 0.892 g/cm2. LEFT FEMUR, TOTAL: Current: BMD 0.913 g/cm2, Z-score 0.7, T-score -0.8, normal, 0.3% increase from previous, 2.1% increase from baseline (<5% change is not significant). Prior: BMD 0.910 g/cm2. Baseline: BMD 0.894 g/cm2. IDENTIFIED RISK FACTORS: Bilateral oophorectomy, dementia, hysterectomy, menopause, renal. HISTORY OF FRACTURE: None listed. MEDICATIONS: Calcium, vitamin D, Prolia. MM/XR DEXA axial skeleton IMPRESSION: 1. DIAGNOSIS: Osteopenia based on the lowest T-score value of -1.4 in the femoral neck applying World Health Organization criteria. 2. 10-YEAR FRACTURE RISK PREDICTION, FRAX: Not performed in this patient on estrogen or bone building treatments. 3. Treatment Recommendations: NOF guidelines recommend consideration for treatment in postmenopausal women and men age 50 and older presenting with the following: -A hip or vertebral (clinical or morphometric) fracture. -T-score less than or equal to -2.5 at the femoral neck or spine after appropriate evaluation to exclude secondary causes. -Low bone mass at the hip or spine and a 10-year fracture probability by FRAX of greater than or equal to 3% for hip fracture or greater than or equal to 20% for major osteoporotic fracture based on the [place] adapted WHO algorithm. 4. Other Recommendations: All treatment decisions require clinical judgment and consideration of individual patient factors, including patient preferences, comorbidities, previous drug use, risk factors not captured in the FRAX model (e.g. frailty, falls, vitamin D deficiency, increased bone turnover, interval significant decline in bone density) and possible under or overestimation of fracture risk by FRAX. Additional medical evaluation for secondary cause of low bone mineral density may be appropriate. FUTURE SCAN RECOMMENDATION: People with diagnosed cases of osteoporosis or at high risk for fracture should have regular bone mineral density tests. For patients eligible for Medicare, routine testing is allowed once every 2 years. The testing frequency can be increased to one year for patients who have rapidly progressing disease, those who are receiving or discontinuing medical therapy to restore bone mass, or have additional risk factors.
== END 2022-09-20 13:53 | disposition home or self-care (01) ==
LOC: HO.MAMMO 13:52
PROVIDERS: PCP Internal Medicine; Visit Provider Internal Medicine
DX: Z12.31 Encounter for screening mammogram for malignant neoplasm of breast (principal); Z13.820 Encounter for screening for osteoporosis; Z78.0 Asymptomatic menopausal state
CPT/HCPCS: 77063; 77067; 77080

== ENCOUNTER 2022-09-22 09:43 | Outpatient (REF) | payer OTHER, SELFPAY ==
[2022-09-22 08:59] LABS: Basophils Percent Auto 0.9 % (0-2); Eosinophils Absolute Auto 0.2 X10*3/uL (0.0-0.4); Eosinophils Percent Auto 8.8 % (0-4); Hemoglobin 9.1 g/dl (12.0-16.0); Imm Gran Abs Auto 0.02 X10*3/uL (0.00-0.03); Imm Gran Pct Auto 0.9 % (0.0-0.4); Lymphocytes Absolute Auto 0.9 X10*3/uL (1.2-4.9); Lymphocytes Percent Auto 41.2 % (20-40); MANUAL DIFF FLAG SCAN; Mean Corpuscular HGB Conc 31.4 g/dl (31.0-35.0); Mean Corpuscular Hemoglobin 29.6 pg (27.0-33.0); Mean Corpuscular Volume 94.5 fL (80.0-98.0); Mean Platelet Volume 11.9 fL (9.4-12.3); Monocytes Absolute Auto 0.2 X10*3/uL (0.1-1.2); Monocytes Percent Auto 10.1 % (2-11); Neutrophils Absolute Auto 0.9 x10*3/uL (2.0-8.3); Neutrophils Percent Auto 38.1 % (45-73); Platelet Count 158 X10*3/uL (160-400); Red Blood Count 3.07 X10*6/uL (4.20-5.50); Red Cell Distribution Width 16.8 % (11.0-16.0); SCAN SMEAR FLAG 1
[2022-09-22 09:00] LABS: White Blood Count 2.3 X10*3/uL (4.8-10.8)
[2022-09-22 09:43] LABS: SLIDE REVIEW VERIFIED
[2022-09-22 12:48] LABS: Alanine Aminotransferase 7 U/L (0-31); Albumin Level 2.8 g/dL (3.5-5.0); Alkaline Phosphatase 66 U/L (39-117); Anion Gap 10 (12-20); Aspartate Amino Transferase 14 U/L (5-31); Bilirubin Total 0.3 mg/dL (0.0-1.0); Blood Urea Nitrogen 15 mg/dL (9-16); Calcium 8.3 mg/dL (8.4-10.2); Carbon Dioxide 27 mmol/L (22-29); Chloride 114 mmol/L (96-108); Estimated Glomerular Filt Rate 40; Glucose Random 103 mg/dL (60-115); Potassium 3.9 mmol/L (3.3-5.1); Sodium 147 mmol/L (135-145)
== END 2022-09-22 09:44 | disposition home or self-care (01) ==
LOC: HO.LHD 09:43
PROVIDERS: Visit Provider Internal Medicine Medical Oncology
DX: C90.00 Multiple myeloma not having achieved remission (principal)
CPT/HCPCS: 36415; 80053; 85025

== ENCOUNTER 2022-09-29 06:39 | Outpatient (REF) | payer OTHER, SELFPAY ==
[2022-09-29 10:16] LABS: Hematocrit 30.9 % (37.0-47.0); Hemoglobin 9.7 g/dl (12.0-16.0); Mean Corpuscular HGB Conc 31.4 g/dl (31.0-35.0); Mean Corpuscular Hemoglobin 29.1 pg (27.0-33.0); Mean Corpuscular Volume 92.8 fL (80.0-98.0); Mean Platelet Volume 12.2 fL (9.4-12.3); PLT CLUMP 1; Red Blood Count 3.33 X10*6/uL (4.20-5.50); Red Cell Distribution Width 16.4 % (11.0-16.0)
[2022-09-29 10:18] LABS: WBC ABN SCTR FOR CBC 1
[2022-09-29 11:03] LABS: Band Neutrophils Percent 18 % (3-5); Lymphocytes Percent Manual 28 % (20-40); Monocytes Percent Manual 6 % (2-11); Neutrophils Percent Manual 48 % (45-73)
[2022-09-29 11:05] LABS: Ovalocytes 1+ (5-14) /OIF; RBC Morphology NOTED
[2022-09-29 11:08] LABS: Tear Drop Cells 1+ (0-2) /OIF; Toxic Vacuolation PRESENT
[2022-09-29 11:09] LABS: Polychromasia 1+ (0-2) /OIF
[2022-09-29 11:10] LABS: Alanine Aminotransferase 12 U/L (0-31); Albumin Level 3.2 g/dL (3.5-5.0); Alkaline Phosphatase 80 U/L (39-117); Anion Gap 15 (12-20); Aspartate Amino Transferase 17 U/L (5-31); Bilirubin Total 0.6 mg/dL (0.0-1.0); Blood Urea Nitrogen 17 mg/dL (9-16); Calcium 8.5 mg/dL (8.4-10.2); Carbon Dioxide 24 mmol/L (22-29); Chloride 106 mmol/L (96-108); Estimated Glomerular Filt Rate 30; Glucose Random 116 mg/dL (60-115); Potassium 3.7 mmol/L (3.3-5.1); Sodium 141 mmol/L (135-145); Total Protein 5.9 g/dL (6.5-8.0)
[2022-09-29 11:11] LABS: Platelet Estimate DECREASED (NORMAL)
[2022-09-29 11:12] LABS: Large Platelet PRESENT; Lymphocytes Absolute Manual 0.3 X10*3/uL (1.2-4.9); Monocytes Absolute Manual 0.1 X10*3/uL (0.1-1.2); Neutrophils Absolute Manual 0.8 X10*3/uL (2.0-8.3); Platelet Morphology Comment NOTED; White Blood Count 1.2 X10*3/uL (4.8-10.8)
[2022-09-29 11:13] LABS: Platelet Count 85 X10*3/uL (160-400)
== END 2022-09-29 06:40 ==
LOC: HO.LHD 06:39
PROVIDERS: Visit Provider Internal Medicine Medical Oncology
DX: C90.00 Multiple myeloma not having achieved remission (principal)
CPT/HCPCS: 36415; 80053; 85007; 85027

== ENCOUNTER 2022-09-29 11:14 | Inpatient (IN) | payer OTHER, SELFPAY ==
[2022-09-29] VITALS (15 sets, daily range): BP systolic 82–145; BP diastolic 41–99; PULSE 96–115; RESP 14–23; TEMP 36.6–38.8; O2SAT 94–100; BMI 30.2
--- NOTE | 2022-09-29 | ECG_ITS ---
Test Reason : Hx of prolonged QTc Blood Pressure : / mmHG Vent. Rate : 098 BPM Atrial Rate : 098 BPM P-R Int : 184 ms QRS Dur : 078 ms QT Int : 446 ms P-R-T Axes : -14 -11 253 degrees QTc Int : 569 ms Poor data quality, interpretation may be adversely affected Sinus rhythm with Premature supraventricular complexes and Premature ventricular complexes or Fusion complexes Low voltage QRS Possible Lateral infarct , age undetermined Prolonged QT Abnormal ECG When compared with ECG of 04-MAY-2021 14:00, Significant changes have occurred Referred By: Maikel Horton Electronically Signed By:
--- NOTE | ~2022-09-29 | XR_ITS ---
EXAMINATION: XR CHEST CLINICAL INFORMATION: Shortness of breath and fever. COMPARISON: Chest x-ray 05/04/2021 TECHNIQUE: Frontal view of the chest was obtained. FINDINGS: The lungs are hypoexpanded patchy increased bilateral lung markings. There is patchy opacity left lung base retrocardiac area likely infiltrate. The heart size and pulmonary vascularity is normal. There is moderate spondylosis dorsal spine. No aggressive lytic or sclerotic process seen. XR/XR chest 1V IMPRESSION: 1. Patchy opacity left lung base retrocardiac area likely infiltrate. 2. Increase interstitial markings in both lungs. 3. Hypoexpanded lungs with moderate spondylosis of dorsal spine.
--- NOTE | 2022-09-29 11:40 | ED.GENADULT ---
HPI - General Adult General Chief complaint: General Medical Stated complaint: AMS, High HR (115), RR 25 per EMS Time Seen by Provider: 09/29/22 11:39 Source: family (granddaughter), EMS and RN notes reviewed Mode of arrival: EMS Limitations: no limitations History of Present Illness HPI narrative: Patient with worsening shortness of breath and now confusion. no one could get a temperature on her Onset (ago): day(s) Severity: moderate Related Data Home Medications Medication Instructions Recorded Confirmed albuterol sulfate 90 mcg/actuation 2 puff PO Q4H PRN Dyspnea 04/15/20 06/29/22 aerosol inhaler clozapine 100 mg tablet 200 mg PO BEDTIME 04/15/20 06/29/22 loperamide 2 mg capsule 2 mg PO DAILY PRN Diarrhea 04/15/20 06/29/22 (Anti-Diarrheal (loperamide)) lorazepam 1 mg tablet (Ativan) 1 mg PO DAILY PRN Anxiety 04/15/20 06/29/22 ondansetron HCl 4 mg tablet 1 tab PO Q4H PRN Nausea 04/15/20 06/29/22 sennosides 8.6 mg tablet (senna) 2 tab PO DAILY PRN Constipation 04/15/20 06/29/22 cyclosporine 0.05 % eye drops in a 1 drp ophthalmic (eye) DAILY 05/06/20 06/29/22 dropperette (Restasis) filgrastim-sndz 300 mcg/0.5 mL 300 mcg subcut MOTH 05/04/21 06/29/22 injection syringe (Zarxio) Previous Rx's Medication Instructions Recorded metoprolol tartrate 25 mg tablet 25 mg PO BID 30 days #180 tabs 09/21/21 acyclovir 400 mg tablet 400 mg PO DAILY #90 tabs 12/20/21 omeprazole 20 mg capsule,delayed 20 mg PO DAILY #90 caps 02/23/22 release lenalidomide 15 mg capsule 15 mg PO DAILY #21 caps 03/17/22 (Revlimid) ferrous sulfate 324 mg (65 mg 324 mg PO DAILY #90 tabs 04/04/22 iron) tablet,delayed release cetirizine 10 mg tablet 10 mg PO BEDTIME #90 tabs 06/19/22 cholecalciferol (vitamin D3) 50 50 mcg PO DAILY #30 caps 06/29/22 mcg (2,000 unit) capsule sulfamethoxazole 800 1 tab PO Q12H #60 tabs 07/06/22 mg-trimethoprim 160 mg tablet (Bactrim DS) allopurinol 100 mg tablet 100 mg PO DAILY #90 tabs 07/20/22 calcium carbonate 600 mg calcium 600 mg PO BID #60 tabs 08/24/22 (1,500 mg) tablet (Calcium) aspirin 81 mg tablet,delayed 81 mg PO DAILY #90 tabs 08/31/22 release Allergies Allergy/AdvReac Type Severity Reaction Status Date / Time No Known Allergies Allergy Verified 08/22/22 09:43 [No Known Allergies*] Review of Systems Review of Systems: Yes Unobtainable due to mental status [facility] Past Medical History Medical History Asthma Bilateral hearing loss GERD (gastroesophageal reflux disease) Hyperlipidemia Hypertension Schizophrenia Tubular adenoma of colon Surgical History History of lumpectomy History of total hysterectomy Family History Family History Father Coronary artery disease High cholesterol Diabetes mellitus CVD (cardiovascular disease) Mother Alzheimer's disease Brother History of CVA (cerebrovascular accident) Stroke Sister History of CVA (cerebrovascular accident) Stroke Son No problems noted. Sister No problems noted. Sister No problems noted. Sister No problems noted. Sister No problems noted. Sister No problems noted. Brother No problems noted. Brother No problems noted. Brother No problems noted. Brother No problems noted. Brother No problems noted. Brother No problems noted. Other Hypertension Social History Social History Household Members: Family Housing: Apartment Are you a primary customer care associate to a significant other at home: No Do you presently have visiting nurse or other home services: No (home lab draws) Alcohol intake: never Patient Tobacco Use Status: Former Tobacco user Quit Date: 2017 e-Cigarette/Vaping Use: Never Used Advance Directives: Yes Advance Directives on File: Yes Advance Directives Date on File: 04/15/18 service: No Current occupational status: disabled Cognitive needs: No Hearing needs: No Vision needs: Yes Physical Exam ED Vital Signs: Vital Signs - 24 hr 09/29/22 11:19 09/29/22 11:31 09/29/22 12:06 Temperature 101.9 F H 101.9 F H Pulse Rate 107 H 105 H 103 H Respiratory Rate 17 14 23 H Blood Pressure 118/99 H 104/63 Pulse Oximetry 95 94 95 Oxygen Delivery Method Room Air Room Air Nasal Cannula Room Air 09/29/22 12:17 09/29/22 12:48 09/29/22 13:44 Temperature 98.1 F Pulse Rate 101 H 111 H 101 H Respiratory Rate 20 19 19 Blood Pressure 145/91 H 99/50 L Pulse Oximetry 95 95 Oxygen Delivery Method 09/29/22 13:48 09/29/22 13:54 Temperature Pulse Rate 101 H 103 H Respiratory Rate 19 Blood Pressure 98/41 L 109/61 Pulse Oximetry Oxygen Delivery Method BMI result Body Mass Index 30.2 Const Other: female appearing ill, coughing Nutritional Appearance: average body habitus Orientation/consciousness: oriented to person Limitations: language barrier HENMT Head: Yes normal to inspection Ears: external ears normal General nose exam: Normal external nose present Mouth: Normal oral and palatal mucosa present and oropharynx normal Throat: Yes posterior oropharynx normal Eyes General: appearance normal, both eyes and all related structures Neck Neck: Yes normal visual inspection Chest Chest palpation & inspection: normal inspection of the chest Resp Other: diffuse wheezing Cardio Jugular venous distension: no JVD Rate: regular rate Rhythm: regular rhythm Heart sounds: S1 normal heart sound present and S2 normal heart sound present GI Inspection: Yes normal to inspection Palpation (GI): Soft to palpation, nontender and No hepatosplenomegaly present Auscultation: normal bowel sounds General: Yes no CVA tenderness Back/Spine/Pelvis Back: no CVA tenderness Skin General skin exam: no rashes or lesions noted Neuro General: oriented to person Cranial nerves: Yes CN's II-XII intact bilaterally Motor exam (neuro): 5/5 motor strength present throughout Extrem General: Yes normal to inspection Psych Appearance: grossly normal Course Reevaluation(s) Reevaluation #1: patient is not in septic shock she does have a retrocardiac infiltrate, giving IV ceftriaxone and azithromax Time: 13:41 Reevaluation #2: I spent 40 minutes of critical care, with interventions, assessments, speaking to patient, consultants, and family. Time: 13:42 Medications Administered Generic Name Dose Route Start Last Admin Trade Name Frelatasha PRN Reason Stop Dose Admin Ceftriaxone Sodium 1 gm/ 50 mls @ 100 mls/hr 09/29/22 13:37 09/29/22 13:42 Sodium Chloride IV 09/29/22 14:06 100 mls/hr ONCE ONE Administration Discontinued Medications Generic Name Dose Route Start Last Admin Trade Name Freq PRN Reason Stop Dose Admin Acetaminophen 975 mg 09/29/22 11:43 09/29/22 12:04 Acetaminophen 325 Mg Tablet PO 09/29/22 11:44 975 mg ONCE ONE Administration Albuterol Sulfate 7.5 mg/ 0 mg 09/29/22 11:48 09/29/22 12:10 Ipratropium [place] 0.5 mg INHALE 09/29/22 11:49 7.5 each ONCE ONE Administration Sodium Chloride 2,177.25 mls @ 2,177.25 mls/hr 09/29/22 11:43 09/29/22 13:43 Ns 30 ml/kg infuse over 1 hr (2177.25 ml) 09/29/22 12:42 Infused IVCONT Infusion .Q1H ONE Medical Decision Making Differential Diagnosis Differential Diagnoses: The differential diagnosis associated with the presentation includes (pneumonia, Covid, influenza, rsv, COPD) Admission/Observation Consideration of admission/observation: Escalation of care including admission/observation considered (patient with fever and altered mental status admission was considered immediately) Consult Healthcare Provider Management of the patient was discussed with: Hospitalist Lab Data MDM Lab Attestation statement: I reviewed the patient's lab results. 09/29/22 12:10 09/29/22 12:10 Labs: Lab Results 09/29/22 09/29/22 09/29/22 Range/Units 12:10 12:10 12:10 WBC 1.3 L (4.8-10.8) X10*3/uL RBC 3.03 L (4.20-5.50) X10*6/uL Hgb 9.0 L (12.0-16.0) g/dl Hct 28.8 L (37.0-47.0) % MCV 95.0 (80.0-98.0) fL MCH 29.7 (27.0-33.0) pg MCHC 31.3 (31.0-35.0) g/dl RDW 16.3 H (11.0-16.0) % Plt Count 99 L (160-400) X10*3/uL MPV 12.5 H (9.4-12.3) fL Immature Gran % (Auto) Cancelled Neut % (Auto) Cancelled Lymph % (Auto) Cancelled [place] % (Auto) Cancelled Eos % (Auto) Cancelled Baso % (Auto) Cancelled Lymph # (Auto) Cancelled [place] # (Auto) Cancelled Eos # (Auto) Cancelled Baso # (Auto) Cancelled Abs Immat Gran (auto) Cancelled Absolute Neuts (auto) Cancelled Absolute Nucleated RBC 0.000 (0.0-0.012) X10*3/uL Nucleated RBC % (auto) 0.0 (0.0-0.2) /100WBC Neutrophils % (Manual) 69 (45-73) % Band Neutrophils % 6 H (3-5) % Lymphocytes % (Manual) 19 L (20-40) % Monocytes % (Manual) 3 (2-11) % Basophils % (Manual) 3 H (0-2) % Abs Neuts (Manual) 1.0 L (2.0-8.3) X10*3/uL Lymphocytes # (Manual) 0.2 L (1.2-4.9) X10*3/uL Toxic Vacuolation PRESENT Platelet Estimate DECREASED (NORMAL) Plt Morphology Comment NORMAL RBC Morphology NOTED Hypochromasia 1+ (5-14) /OIF PT 14.6 H (10.0-13.1) SEC INR 1.3 H (0.9-1.1) Sodium 140 (135-145) mmol/L Potassium 3.6 (3.3-5.1) mmol/L Chloride 106 (96-108) mmol/L Carbon Dioxide 23 (22-29) mmol/L Anion Gap 15 (12-20) BUN 18 H (9-16) mg/dL Creatinine 1.98 H (0.5-1.4) mg/dL Estim Creat Clear Calc 22.4 Estimated GFR 25 Random Glucose 150 H (60-115) mg/dL Lactic Acid (0.5-2.0) mmol/L Calcium 8.2 L (8.4-10.2) mg/dL Total Bilirubin 0.6 (0.0-1.0) mg/dL Influenza Type A (PCR) (Negative) Influenza Type B (PCR) (Negative) RSV RNA Qual (PCR) (Negative) SARS-CoV-2 RNA (RT-PCR) (Negative) 09/29/22 09/29/22 Range/Units 12:10 12:10 WBC (4.8-10.8) X10*3/uL RBC (4.20-5.50) X10*6/uL Hgb (12.0-16.0) g/dl Hct (37.0-47.0) % MCV (80.0-98.0) fL MCH (27.0-33.0) pg MCHC (31.0-35.0) g/dl RDW (11.0-16.0) % Plt Count (160-400) X10*3/uL MPV (9.4-12.3) fL Immature Gran % (Auto) Neut % (Auto) Lymph % (Auto) [place] % (Auto) Eos % (Auto) Baso % (Auto) Lymph # (Auto) [place] # (Auto) Eos # (Auto) Baso # (Auto) Abs Immat Gran (auto) Absolute Neuts (auto) Absolute Nucleated RBC (0.0-0.012) X10*3/uL Nucleated RBC % (auto) (0.0-0.2) /100WBC Neutrophils % (Manual) (45-73) % Band Neutrophils % (3-5) % Lymphocytes % (Manual) (20-40) % Monocytes % (Manual) (2-11) % Basophils % (Manual) (0-2) % Abs Neuts (Manual) (2.0-8.3) X10*3/uL Lymphocytes # (Manual) (1.2-4.9) X10*3/uL Toxic Vacuolation Platelet Estimate (NORMAL) Plt Morphology Comment RBC Morphology Hypochromasia /OIF PT (10.0-13.1) SEC INR (0.9-1.1) Sodium (135-145) mmol/L Potassium (3.3-5.1) mmol/L Chloride (96-108) mmol/L Carbon Dioxide (22-29) mmol/L Anion Gap (12-20) BUN (9-16) mg/dL Creatinine (0.5-1.4) mg/dL Estim Creat Clear Calc Estimated GFR Random Glucose (60-115) mg/dL Lactic Acid 3.4 H* (0.5-2.0) mmol/L Calcium (8.4-10.2) mg/dL Total Bilirubin (0.0-1.0) mg/dL Influenza Type A (PCR) NEGATIVE (Negative) Influenza Type B (PCR) NEGATIVE (Negative) RSV RNA Qual (PCR) NEGATIVE (Negative) SARS-CoV-2 RNA (RT-PCR) NEGATIVE (Negative) Independent Interpretation I performed an independent interpretation of an: Plain X-Ray (CXR showed reticular changes no acute infiltrate) Radiology Impression Discussion of test interpretation with radiology: I have reviewed the radiologist's reading. (radiologist read as retrocardiac infiltrate) Discharge Plan Discharge Clinical Impression: Pneumonia, Chronic obstructive airway disease Patient Disposition: Admitted As Inpatient
[2022-09-29] MEDS: 0.9 % Sodium Chloride 2,177.25 ML 2177.25 ML IVCONT (12:02)
[2022-09-29] MEDS: Acetaminophen 325 MG TABLET 975 MG PO (12:04)
[2022-09-29 12:22] LABS: Hematocrit 28.8 % (37.0-47.0); Mean Corpuscular HGB Conc 31.3 g/dl (31.0-35.0); Mean Corpuscular Hemoglobin 29.7 pg (27.0-33.0); Mean Platelet Volume 12.5 fL (9.4-12.3); Platelet Count 99 X10*3/uL (160-400); Red Blood Count 3.03 X10*6/uL (4.20-5.50); Red Cell Distribution Width 16.3 % (11.0-16.0); WBC ABN SCTR FOR CBC 1
[2022-09-29 12:24] LABS: White Blood Count 1.3 X10*3/uL (4.8-10.8)
[2022-09-29 12:26] LABS: INTERNATIONAL NORM RATIO 1.3 (0.9-1.1); Prothrombin Time 14.6 SEC (10.0-13.1)
[2022-09-29 12:33] LABS: Anion Gap 15 (12-20); Bilirubin Total 0.6 mg/dL (0.0-1.0); Blood Urea Nitrogen 18 mg/dL (9-16); Calcium 8.2 mg/dL (8.4-10.2); Carbon Dioxide 23 mmol/L (22-29); Chloride 106 mmol/L (96-108); Creatinine Clr Calc Pharmacy 22.4; Estimated Glomerular Filt Rate 25; Glucose Random 150 mg/dL (60-115); Potassium 3.6 mmol/L (3.3-5.1); Sodium 140 mmol/L (135-145)
[2022-09-29 12:39] LABS: Lactic Acid 3.4 mmol/L (0.5-2.0)
[2022-09-29 12:57] LABS: Influenza A PCR NEGATIVE (Negative); Influenza B PCR NEGATIVE (Negative); Resp Syncy Virus RNA Qual PCR NEGATIVE (Negative); SARS COV2 PCR INHOUSE NEGATIVE (Negative)
[2022-09-29 13:16] LABS: Band Neutrophils Percent 6 % (3-5); Basophils Percent Manual 3 % (0-2); Lymphocytes Absolute Manual 0.2 X10*3/uL (1.2-4.9); Lymphocytes Percent Manual 19 % (20-40); Monocytes Percent Manual 3 % (2-11); Neutrophils Percent Manual 69 % (45-73)
[2022-09-29 13:17] LABS: Platelet Estimate DECREASED (NORMAL); Toxic Vacuolation PRESENT
[2022-09-29 13:18] LABS: Platelet Morphology Comment NORMAL
[2022-09-29 13:19] LABS: RBC Morphology NOTED
[2022-09-29 13:20] LABS: Hypochromasia 1+ (5-14) /OIF
[2022-09-29] MEDS: cefTRIAXone sodium 1 GM in 0.9 % Sodium Chloride 50 ML IV (13:42)
--- NOTE | 2022-09-29 13:52 | PM.IMHP ---
History of Present Illness Date of Service: 09/29/22 Attending physician on admission: [facility] Chief Complaint: Worsening cough, confusion Pt is a 77-year-old female with a PMH significant for dementia, multiple myeloma, schizoaffective disorder, HTN, asthma, and gout who presents to the ED with?with worsening cough and confusion. Patient is Italian-speaking only and has baseline dementia and currently encephalopathic. HPI obtained from granddaughter who was at bedside and is patient's healthcare proxy. Patient apparently has been experiencing symptoms for the past 3 weeks. Patient has had a cough productive of greenish sputum and is generally more fatigued. Granddaughter states that patient had no other complaints. Was not complaining of shortness of breath, difficulty breathing. Pt seemed to be getting better until yesterday when granddaughter noted patient had increased fatigue, cough to the point where she vomited once, and seemed more confused than before. Patient could not help granddaughter get her out of bed, could not follow commands and was not responding correctly to questions. Patient normally is alert and oriented only to herself a capable of following basic commands. Patient seemed unsteady on her feet. Patient was brought in today due to her worsening condition. In the ED patient was febrile to 101.9, tachycardic up to 111, tachypneic up to 23, slightly hypertensive at 98/41, and satting at 95% O2 on RA. Labs were significant for leukopenia of 1.2, H&H 9.0/28.8, creatinine of 1.98, lactic acid of 3.4. Patient tested negative for influenza type a and B, RSV, COVID. CXR showed patchy opacity at the left lung base retrocardiac area, likely infiltrate with increased interstitial markings in both lungs. Pt was treated with azithromycin and ceftriaxone, DuoNebs, and sepsis bundle IVF crystalloids at 30 milligrams/kilogram. Pt will be admitted to the hospital for treatment evaluation of sepsis secondary to community-acquired pneumonia. Review of Systems Review of Systems: Unable to obtain due to patient's mentation [facility] Medical History Asthma Bilateral hearing loss GERD (gastroesophageal reflux disease) Hyperlipidemia Hypertension Schizophrenia Tubular adenoma of colon Family History Father Coronary artery disease High cholesterol Diabetes mellitus CVD (cardiovascular disease) Mother Alzheimer's disease Brother History of CVA (cerebrovascular accident) Stroke Sister History of CVA (cerebrovascular accident) Stroke Son No problems noted. Sister No problems noted. Sister No problems noted. Sister No problems noted. Sister No problems noted. Sister No problems noted. Brother No problems noted. Brother No problems noted. Brother No problems noted. Brother No problems noted. Brother No problems noted. Brother No problems noted. Other Hypertension Surgical History History of lumpectomy History of total hysterectomy Social History Household Members: Caregiver Household Members Other:: granddaughter. Housing: Apartment Are you a primary foster care therapist to a significant other at home: No Do you presently have visiting nurse or other home services: No Alcohol intake: never Patient Tobacco Use Status: Former Tobacco user Quit Date: 2017 e-Cigarette/Vaping Use: Never Used Use of substances other than those prescribed or required for medical reasons: No Currently Displaying Signs/Symptoms of Drug Intoxication Withdrawal: No Have you been hit, kicked, punched, or otherwise hurt by someone within the past year? If so, by whom?: No Do you feel safe in your current relationship?: No Current Relationship Is there a partner from a previous relationship who is making you feel unsafe now?: No Are you made to feel afraid or neglected: No Advance Directives: Yes Advance Directives on File: Yes Advance Directives Date on File: 04/15/18 Do you have thoughts of harming others: None Do you have a plan to hurt others: No Plan Recently lost weight without trying: Unsure Nutrition Risks: No Nutritional Risk Patient : No : No Poor oral hygiene: No service: No Current occupational status: disabled Cognitive needs: No Hearing needs: No Vision needs: Yes Meds Allergies Allergy/AdvReac Type Severity Reaction Status Date / Time No Known Allergies Allergy Verified 08/22/22 09:43 [No Known Allergies*] Active Medications: Current Medications Ceftriaxone Sodium 1 gm/ (Sodium Chloride) 50 mls @ 100 mls/hr IV ONCE ONE Stop: 09/29/22 14:06 Last Admin: 09/29/22 13:42 Dose: 100 mls/hr Azithromycin 500 mg/ Sodium (Chloride) 250 mls @ 125 mls/hr IV ONCE ONE Stop: 09/29/22 15:36 Home Medications Medication Instructions Recorded Confirmed Last Taken Type albuterol sulfate 90 mcg/actuation 2 puff PO Q4H PRN Dyspnea 04/15/20 09/29/22 Unknown History aerosol inhaler clozapine 100 mg tablet 200 mg PO BEDTIME 04/15/20 09/29/22 09/28/22 History loperamide 2 mg capsule 2 mg PO DAILY PRN Diarrhea 04/15/20 09/29/22 09/28/22 History (Anti-Diarrheal (loperamide)) sennosides 8.6 mg tablet (senna) 2 tab PO DAILY PRN Constipation 04/15/20 09/29/22 1 Day Ago History ~04/14/20 filgrastim-sndz 300 mcg/0.5 mL 300 mcg subcut TUFR 05/04/21 09/29/22 09/22/22 History injection syringe (Zarxio) cyclosporine 0.05 % eye drops in a 1 drp ophthalmic (eye) DAILY 09/29/22 09/29/22 Unknown History dropperette (Restasis) denosumab 120 mg/1.7 mL (70 mg/mL) 120 mg subcut Q8W 09/29/22 09/29/22 Unknown History subcutaneous solution lorazepam 1 mg tablet (Ativan) 1 mg PO DAILY PRN Anxiety 09/29/22 09/29/22 Unknown History omeprazole 20 mg capsule,delayed 20 mg PO DAILY@0630 09/29/22 09/29/22 09/28/22 History release ondansetron 4 mg disintegrating 4 mg PO Q4H PRN Nausea And Vomiting 09/29/22 09/29/22 Unknown History tablet sulfamethoxazole 800 1 tab PO MOWEFR 09/29/22 09/29/22 09/27/22 History mg-trimethoprim 160 mg tablet (Bactrim DS) Physical Exam Vital Signs and Narrative: Vital Signs: Last Vital Signs Temp 98.1 F 09/29/22 12:48 Pulse 101 H 09/29/22 13:48 Resp 19 09/29/22 13:44 BP 98/41 L 09/29/22 13:48 Pulse Ox 95 09/29/22 13:44 O2 Del Method 09/29/22 12:06 BMI result Body Mass Index 30.2 Constitutional: Alert, in no acute distress. Mental Status: Oriented to person only. Eyes: Pupils are equal, round, and reactive to light. Ear, Nose, and Throat: Oropharynx clear, mucous membranes moist. Ears and nose without deformities. Trachea midline. Respiratory: Coarse breath sounds bilatearlly with scattered expiratory wheezing. Cardiovascular: S1, S2 regular. No murmurs, rubs, or gallops. Gastrointestinal: Abdomen soft, non-tender, non-distended. Normal bowel sounds. Neurologic: Moves all extremities spontaneously. Skin: No rashes or lesions noted. Extremities: No edema. Results Labs 09/29/22 12:10 09/29/22 12:10 Labs: Laboratory Results - last 24 hr 09/29/22 09/29/22 09/29/22 12:10 12:10 12:10 MCV 95.0 MCH 29.7 MCHC 31.3 RDW 16.3 H Plt Count 99 L MPV 12.5 H Immature Gran % (Auto) Cancelled Neut % (Auto) Cancelled Lymph % (Auto) Cancelled [place] % (Auto) Cancelled Eos % (Auto) Cancelled Baso % (Auto) Cancelled Lymph # (Auto) Cancelled [place] # (Auto) Cancelled Eos # (Auto) Cancelled Baso # (Auto) Cancelled Abs Immat Gran (auto) Cancelled Absolute Neuts (auto) Cancelled Absolute Nucleated RBC 0.000 Nucleated RBC % (auto) 0.0 Neutrophils % (Manual) 69 Band Neutrophils % 6 H Lymphocytes % (Manual) 19 L Monocytes % (Manual) 3 Basophils % (Manual) 3 H Abs Neuts (Manual) 1.0 L Lymphocytes # (Manual) 0.2 L Toxic Vacuolation PRESENT Platelet Estimate DECREASED Plt Morphology Comment NORMAL RBC Morphology NOTED Hypochromasia 1+ (5-14) PT 14.6 H INR 1.3 H Anion Gap 15 Estim Creat Clear Calc 22.4 Estimated GFR 25 Random Glucose 150 H Lactic Acid Calcium 8.2 L Total Bilirubin 0.6 Influenza Type A (PCR) Influenza Type B (PCR) RSV RNA Qual (PCR) SARS-CoV-2 RNA (RT-PCR) 09/29/22 09/29/22 12:10 12:10 MCV MCH MCHC RDW Plt Count MPV Immature Gran % (Auto) Neut % (Auto) Lymph % (Auto) [place] % (Auto) Eos % (Auto) Baso % (Auto) Lymph # (Auto) [place] # (Auto) Eos # (Auto) Baso # (Auto) Abs Immat Gran (auto) Absolute Neuts (auto) Absolute Nucleated RBC Nucleated RBC % (auto) Neutrophils % (Manual) Band Neutrophils % Lymphocytes % (Manual) Monocytes % (Manual) Basophils % (Manual) Abs Neuts (Manual) Lymphocytes # (Manual) Toxic Vacuolation Platelet Estimate Plt Morphology Comment RBC Morphology Hypochromasia PT INR Anion Gap Estim Creat Clear Calc Estimated GFR Random Glucose Lactic Acid 3.4 H* Calcium Total Bilirubin Influenza Type A (PCR) NEGATIVE Influenza Type B (PCR) NEGATIVE RSV RNA Qual (PCR) NEGATIVE SARS-CoV-2 RNA (RT-PCR) NEGATIVE Imaging Radiologist's Impressions: Impressions Chest X-Ray 09/29/22 12:54 IMPRESSION: 1. Patchy opacity left lung base retrocardiac area likely infiltrate. 2. Increase interstitial markings in both lungs. 3. Hypoexpanded lungs with moderate spondylosis of dorsal spine. Assessment and Plan (1) Acute kidney injury superimposed on CKD: Status: Acute (2) Pneumonia: Status: Acute Plan Pt is a 77-year-old female with a PMH significant for dementia, multiple myeloma, schizoaffective disorder, HTN, asthma, and gout who presents to the ED with?with worsening cough and confusion. Pt will be admitted to the hospital for treatment evaluation of sepsis secondary to community-acquired pneumonia. Community-acquired pneumonia CXR showed opacity in left lung base likely infiltrate IV abx: ceftriaxone, azithromycin DuoNebs q4 Continue home rescue inhaler Pt not hypoxic, not on suplemental O2 Sepsis Patient meets severe sepsis criteria: Temperature, tachycardia, tachypnea, hypotensive, lactic acidosis, increase in creatinine Patient given IV antibiotics in the ED: Ceftriaxone and azithromycin Patient given 30ml/kg IVF for hypotension Acute toxic metabolic encephalopathy Patient's granddaughter states she has was more confused this morning, not following commands or responding properly Most likely secondary to pneumonia Treat as above Monitor mentation Acute lactic acidosis Patient's lactic acid initially 3.4 with repeat pending Monitor ELEONORA on CKD stage 3 Patient's creatinine 1.98, elevated from baseline of 1.2 Pt receiving IVF Follow BMP Pancytopenia Likely secondary to multiple myeloma Seems stable, near baseline Follow CBC Multiple Myeloma Continue Revlimid, filgrastim DNR/DNI Attending:?Dr. Clay DVT Prophylaxis: Lovenox Pt will require a hospitalization of at least two nights for treatment of?community-acquired pneumonia with IV antibiotics. Time Spent With Patient Time: Total time managing care of this patient today ____ minutes. Quality Stroke Does the patient have a stroke diagnosis?: No VTE Prior VTE?: No VTE Risk Level:: Medical - moderate - high VTE Device Contraindication: Treatment Not Indicated VTE Drug Contraindication: N/A - Med Ordered
[2022-09-29 14:15] LABS: Reflex Lactate? Lactic Acid Added
[2022-09-29] MEDS: Azithromycin 500 MG in 0.9 % Sodium Chloride 250 ML 125 MG IV (14:27)
--- NOTE | 2022-09-29 14:46 | PHA.MEDREC ---
Pharmacy Consult ? Medication Reconciliation Pharmacy has completed the medication reconciliation. Patient has dementia and is venezuelan speaking. Confirmed medications with her granddaughter who had a list on her phone. Clarified that bactrim dose is sunday, sunday, sunday, and she says Xarxio is 2x/week with last dose being last sunday on 09/22
[2022-09-29] MEDS: Enoxaparin Sodium 30 MG/0.3 ML SYRINGE SUBCUT (15:14)
[2022-09-29] MEDS: 0.9 % Sodium Chloride Flush 3 ML SYRINGE IVFLUSH (15:14)
[2022-09-29] MEDS: Acyclovir 200 MG CAPSULE 400 MG PO (15:44)
[2022-09-29] MEDS: Omeprazole 20 MG CAPSULE.DR PO (15:45)
[2022-09-29] MEDS: Aspirin Enteric Coated 81 MG TABLET.DR PO (15:45)
[2022-09-29] MEDS: Cholecalciferol (Vitamin D3) 25 MCG TABLET 50 MCG PO (15:45)
[2022-09-29] MEDS: Ferrous Sulfate 324 MG TABLET.DR PO (15:45)
[2022-09-29] MEDS: allopurinoL 100 MG TABLET PO (15:45)
[2022-09-29 16:33] LABS: Reflex Lactate? 2 Y
[2022-09-29 17:31] LABS: WBCANC 1.3 X10*3/uL
[2022-09-29 18:18] LABS: ~Lactic Acid-LAB USE ONLY 4.2 mmol/L (0.5-2.0)
[2022-09-29] MEDS: 0.9 % Sodium Chloride 1,000 ML 100 ML IVCONT (19:27)
--- NOTE | 2022-09-29 19:56 | PC.NURSE ---
Addendum entered by Melody Kothari RN 09/29/22 22:02: Bolus was administered as ordered,BP improved 94/50 Original Note: BP low 82/50 pulse 96 ,sat 98% on RA ,Dr. Amezcua notified
[2022-09-29] MEDS: Acetaminophen 325 MG TABLET 650 MG PO (20:05)
[2022-09-29] MEDS: 0.9 % Sodium Chloride 1,000 ML 999 ML IV (20:43)
[2022-09-29] MEDS: cloZAPine 100 MG TABLET 200 MG PO (21:32)
[2022-09-29] MEDS: Loratadine 10 MG TABLET PO (21:32)
[2022-09-30] VITALS (7 sets, daily range): BP systolic 97–144; BP diastolic 56–65; PULSE 98–123; RESP 18–22; TEMP 36.4–37.7; O2SAT 95–97
--- NOTE | 2022-09-30 05:48 | PC.NURSE ---
patient wheezing, receiving nebulizers. Persistent cough.
[2022-09-30] MEDS: Omeprazole 20 MG CAPSULE.DR PO (06:00)
[2022-09-30] MEDS: 0.9 % Sodium Chloride 1,000 ML 100 ML IVCONT ×2 (06:00→18:10)
[2022-09-30 06:36] LABS: Hematocrit 25.9 % (37.0-47.0); Hemoglobin 8.1 g/dl (12.0-16.0); Mean Corpuscular HGB Conc 31.3 g/dl (31.0-35.0); Mean Corpuscular Hemoglobin 29.6 pg (27.0-33.0); Mean Corpuscular Volume 94.5 fL (80.0-98.0); Red Blood Count 2.74 X10*6/uL (4.20-5.50); Red Cell Distribution Width 16.6 % (11.0-16.0)
[2022-09-30 06:37] LABS: Platelet Count 79 X10*3/uL (160-400)
[2022-09-30 07:15] LABS: Anion Gap 12 (12-20); Blood Urea Nitrogen 14 mg/dL (9-16); Calcium 6.9 mg/dL (8.4-10.2); Carbon Dioxide 19 mmol/L (22-29); Chloride 116 mmol/L (96-108); Creatinine Clr Calc Pharmacy 36.6; Estimated Glomerular Filt Rate 43; Glucose Random 86 mg/dL (60-115); Potassium 3.3 mmol/L (3.3-5.1); Sodium 144 mmol/L (135-145)
[2022-09-30] MEDS: Aspirin Enteric Coated 81 MG TABLET.DR PO (08:41)
[2022-09-30] MEDS: Ferrous Sulfate 324 MG TABLET.DR PO (08:41)
[2022-09-30] MEDS: Cholecalciferol (Vitamin D3) 25 MCG TABLET 50 MCG PO (08:42)
[2022-09-30] MEDS: Acyclovir 200 MG CAPSULE 400 MG PO (08:42)
[2022-09-30] MEDS: Metoprolol Tartrate 25 MG TABLET PO ×2 (08:42→20:40)
[2022-09-30] MEDS: allopurinoL 100 MG TABLET PO (08:43)
--- NOTE | 2022-09-30 08:46 | HO.PM.IMPN ---
Subjective Subjective Date of Service: 09/30/22 Interval History: seen w/ seismic interpreter feels bettre, cough, little sob Physical Exam Vital Signs: Vital Signs: Last Vital Signs Temp 99.8 F 09/30/22 08:00 Pulse 123 H 09/30/22 08:00 Resp 18 09/30/22 08:00 BP 136/65 09/30/22 08:00 Pulse Ox 96 09/30/22 08:00 O2 Del Method 09/30/22 08:00 BMI result Body Mass Index 30.2 Const: Other: General: AO X 3, no acute distress Resp: CTA bilateral CVS: S1,S2,RRR GI: +BS, NT, no distention Skin: No rash Neuro: motor grossly intact Psych: appropriate affect Objective Data Active Medications Acetaminophen (Acetaminophen 325 Mg Tablet) 650 mg PO Q6H PRN PRN Reason: Pain, Mild (Pain Scale 1-3) Last Admin: 09/29/22 20:05 Dose: 650 mg Documented By: HARPREET Acyclovir (Acyclovir 200 Mg Capsule) 400 mg PO DAILY [facility] Last Admin: 09/29/22 15:44 Dose: 400 mg Documented By: VAMSI Albuterol Sulfate (Albuterol Sulfate 90 Mcg 8 Gm Inhaler) 2 puff INHALE Q4H PRN PRN Reason: Dyspnea Allopurinol (Allopurinol 100 Mg Tablet) 100 mg PO DAILY [facility] Last Admin: 09/29/22 15:45 Dose: 100 mg Documented By: VAMSI Aspirin (Aspirin Enteric Coated 81 Mg Tablet.) 81 mg PO DAILY [facility] Last Admin: 09/29/22 15:45 Dose: 81 mg Documented By: VAMSI Calcium Carbonate (Calcium Carbonate 500 Mg Tablet) 500 mg PO BID [facility] Last Admin: 09/29/22 21:32 Dose: 500 mg Documented By: HARPREET Clozapine (Clozapine 100 Mg Tablet) 200 mg PO BEDTIME [facility] Last Admin: 09/29/22 21:32 Dose: 200 mg Documented By: HARPREET Albuterol Sulfate 2.5 mg/ (Ipratropium [place] 0.5 mg) 0 mg INHALE RQ4H WHILE AWAKE [facility] Last Admin: 09/30/22 06:06 Dose: 2.5 each Documented By: MARIANNA Enoxaparin Sodium (Enoxaparin Sodium 30 Mg/0.3 Ml Syringe) 30 mg SUBCUT Q24H [facility] Last Admin: 09/29/22 15:14 Dose: 30 mg Documented By: VAMSI Ferrous Sulfate (Ferrous Sulfate 324 Mg Tablet.) 324 mg PO DAILY [facility] Last Admin: 09/29/22 15:45 Dose: 324 mg Documented By: VAMSI Azithromycin 500 mg/ Sodium (Chloride) 250 mls @ 125 mls/hr IV Q24H [facility] Ceftriaxone Sodium 1 gm/ (Sodium Chloride) 50 mls @ 100 mls/hr IV Q24H [facility] Sodium Chloride (Ns) 1,000 mls @ 100 mls/hr IVCONT .Q10H [facility] Last Admin: 09/30/22 06:00 Dose: 100 mls/hr Documented By: JOAN Loperamide HCl (Loperamide Hcl 2 Mg Capsule) 2 mg PO DAILY PRN PRN Reason: Diarrhea Loratadine (Loratadine 10 Mg Tablet) 10 mg PO BEDTIME [facility] Last Admin: 09/29/22 21:32 Dose: 10 mg Documented By: HARPREET Lorazepam (Lorazepam 1 Mg Tablet) 1 mg PO DAILY PRN PRN Reason: Anxiety Metoclopramide HCl (Metoclopramide Hcl 10 Mg/2 Ml Vial) 5 mg IVPUSH Q6H PRN PRN Reason: Nausea Metoprolol Tartrate (Metoprolol Tartrate 25 Mg Tablet) 25 mg PO BID [facility]; Protocol Last Admin: 09/29/22 20:44 Dose: Not Given Documented By: HARPREET Non-Admin Reason: low bp 82/55 Omeprazole (Omeprazole 20 Mg Capsule.) 20 mg PO DAILY@0630 [facility] Last Admin: 09/30/22 06:00 Dose: 20 mg Documented By: JOAN Pharmacy Consult (Consult Rx Perform Med Rec) 1 each MISCELLANE ONCE PRN PRN Reason: Consult order Senna (Sennosides 8.6 Mg Tablet) 17.2 mg PO DAILY PRN PRN Reason: Constipation Sodium Chloride (0.9 % Sodium Chloride Flush 3 Ml Syringe) 3 ml IVFLUSH QSHIFT [facility] Last Admin: 09/29/22 23:22 Dose: Not Given Documented By: JOAN Non-Admin Reason: IV Running Vitamin D (Cholecalciferol (Vitamin D3) 25 Mcg Tablet) 50 mcg PO DAILY [facility] Last Admin: 09/29/22 15:45 Dose: 50 mcg Documented By: VAMSI Labs 09/30/22 05:55 09/30/22 05:55 Labs: Laboratory Results - last 24 hr 09/29/22 09/29/22 09/29/22 12:10 12:10 12:10 MCV 95.0 MCH 29.7 MCHC 31.3 RDW 16.3 H Plt Count 99 L MPV 12.5 H Immature Gran % (Auto) Cancelled Neut % (Auto) Cancelled Lymph % (Auto) Cancelled [place] % (Auto) Cancelled Eos % (Auto) Cancelled Baso % (Auto) Cancelled Lymph # (Auto) Cancelled [place] # (Auto) Cancelled Eos # (Auto) Cancelled Baso # (Auto) Cancelled Abs Immat Gran (auto) Cancelled Absolute Neuts (auto) 1.0 L Absolute Nucleated RBC 0.000 Nucleated RBC % (auto) 0.0 Neutrophils % (Manual) 69 Band Neutrophils % 6 H Lymphocytes % (Manual) 19 L Monocytes % (Manual) 3 Basophils % (Manual) 3 H Abs Neuts (Manual) 1.0 L Lymphocytes # (Manual) 0.2 L Toxic Vacuolation PRESENT Platelet Estimate DECREASED Plt Morphology Comment NORMAL RBC Morphology NOTED Hypochromasia 1+ (5-14) PT 14.6 H INR 1.3 H Anion Gap 15 Estim Creat Clear Calc 22.4 Estimated GFR 25 Random Glucose 150 H Lactic Acid Lactic Acid F/U @ 2Hr Lactic Acid F/U @ 4Hr Calcium 8.2 L Total Bilirubin 0.6 Influenza Type A (PCR) Influenza Type B (PCR) RSV RNA Qual (PCR) SARS-CoV-2 RNA (RT-PCR) 09/29/22 09/29/22 09/29/22 12:10 12:10 14:25 MCV MCH MCHC RDW Plt Count MPV Immature Gran % (Auto) Neut % (Auto) Lymph % (Auto) [place] % (Auto) Eos % (Auto) Baso % (Auto) Lymph # (Auto) [place] # (Auto) Eos # (Auto) Baso # (Auto) Abs Immat Gran (auto) Absolute Neuts (auto) Absolute Nucleated RBC Nucleated RBC % (auto) Neutrophils % (Manual) Band Neutrophils % Lymphocytes % (Manual) Monocytes % (Manual) Basophils % (Manual) Abs Neuts (Manual) Lymphocytes # (Manual) Toxic Vacuolation Platelet Estimate Plt Morphology Comment RBC Morphology Hypochromasia PT INR Anion Gap Estim Creat Clear Calc Estimated GFR Random Glucose Lactic Acid 3.4 H* Lactic Acid F/U @ 2Hr 3.0 H* Lactic Acid F/U @ 4Hr Calcium Total Bilirubin Influenza Type A (PCR) NEGATIVE Influenza Type B (PCR) NEGATIVE RSV RNA Qual (PCR) NEGATIVE SARS-CoV-2 RNA (RT-PCR) NEGATIVE 09/29/22 09/30/22 09/30/22 17:22 05:55 05:55 MCV 94.5 MCH 29.6 MCHC 31.3 RDW 16.6 H Plt Count 79 L MPV 12.0 Immature Gran % (Auto) Neut % (Auto) Lymph % (Auto) [place] % (Auto) Eos % (Auto) Baso % (Auto) Lymph # (Auto) [place] # (Auto) Eos # (Auto) Baso # (Auto) Abs Immat Gran (auto) Absolute Neuts (auto) Absolute Nucleated RBC 0.000 Nucleated RBC % (auto) 0.0 Neutrophils % (Manual) Band Neutrophils % Lymphocytes % (Manual) Monocytes % (Manual) Basophils % (Manual) Abs Neuts (Manual) Lymphocytes # (Manual) Toxic Vacuolation Platelet Estimate Plt Morphology Comment RBC Morphology Hypochromasia PT INR Anion Gap 12 Estim Creat Clear Calc 36.6 Estimated GFR 43 Random Glucose 86 Lactic Acid Lactic Acid F/U @ 2Hr Lactic Acid F/U @ 4Hr 4.2 H* Calcium 6.9 L D Total Bilirubin Influenza Type A (PCR) Influenza Type B (PCR) RSV RNA Qual (PCR) SARS-CoV-2 RNA (RT-PCR) Assessment and Plan (1) Acute kidney injury superimposed on CKD: Status: Acute (2) Pneumonia: Status: Acute (3) Chronic obstructive airway disease: Status: Acute Plan 7-year-old female with a PMH significant for dementia, multiple myeloma, schizoaffective disorder, HTN, asthma, and gout who presents to the ED with?with worsening cough and confusion. Pt will be admitted to the hospital for treatment evaluation of sepsis secondary to community-acquired pneumonia. severe Sepsis (Temperature, tachycardia, tachypnea, hypotensive, lactic acidosis, increase in creatinine) Community-acquired pneumonia IV abx: ceftriaxone, azithromycin D2 DuoNebs q4 Continue home rescue inhaler Pt not hypoxic, not on suplemental O2 Acute toxic metabolic encephalopathy d.t PNA Patient's granddaughter states she has was more confused , not following commands or responding properly--yesterday, seems better today Acute lactic acidosis Patient's lactic acid initially 3.4 went down to 3 then to 4 ELEONORA on CKD stage 3 Patient's creatinine 1.98, elevated from baseline of 1.2, today 1.2 so back to baseline Pt receiving IVF Follow BMP Pancytopenia Likely secondary to multiple myeloma Seems stable, near baseline Follow CBC Multiple Myeloma Continue Revlimid, filgrastim DNR/DNI Attending:?Dr. Clay DVT Prophylaxis: Lovenox Need for inpatient: sespsis, PNA, metaboli encephalopathy, needs IV Abx. Time Spent With Patient Time: Total time managing care of this patient today ____ minutes. Quality Stroke Does the patient have a stroke diagnosis?: No VTE Prior VTE?: No VTE Risk Level:: Medical - moderate - high VTE Device Contraindication: Treatment Not Indicated VTE Drug Contraindication: N/A - Med Ordered
[2022-09-30] MEDS: cefTRIAXone sodium 1 GM in 0.9 % Sodium Chloride 50 ML IV (14:06)
[2022-09-30] MEDS: Azithromycin 500 MG in 0.9 % Sodium Chloride 250 ML 125 MG IV (15:30)
[2022-09-30] MEDS: Enoxaparin Sodium 30 MG/0.3 ML SYRINGE SUBCUT (15:35)
[2022-09-30] MEDS: Loratadine 10 MG TABLET PO (20:40)
[2022-09-30] MEDS: cloZAPine 100 MG TABLET 200 MG PO (20:40)
[2022-10-01 00:13] VITALS: BP 126/70; PULSE 95; RESP 20; TEMP 37.1; O2SAT 96
[2022-10-01] MEDS: 0.9 % Sodium Chloride 1,000 ML 100 ML IVCONT (02:04)
[2022-10-01] MEDS: Omeprazole 20 MG CAPSULE.DR PO (05:56)
--- NOTE | 2022-10-01 07:58 | HO.PM.IMPN ---
Subjective Subjective Date of Service: 10/01/22 Interval History: f/u on pna, confusion remains confused, sleeping but easily aroused Review of Systems Unable to obtain due to patient's mentation Physical Exam Vital Signs: Vital Signs: Last Vital Signs Temp 98.7 F 10/01/22 00:13 Pulse 95 10/01/22 00:13 Resp 20 10/01/22 00:13 BP 126/70 10/01/22 00:13 Pulse Ox 96 10/01/22 00:13 O2 Del Method 10/01/22 00:13 BMI result Body Mass Index 30.2 Const: Other: General: AO X 1, no acute distress Resp: CTA bilateral CVS: S1,S2,RRR GI: +BS, NT, no distention Skin: No rash Neuro: motor grossly intact Psych: appropriate affect Objective Data Active Medications Acetaminophen (Acetaminophen 325 Mg Tablet) 650 mg PO Q6H PRN PRN Reason: Pain, Mild (Pain Scale 1-3) Last Admin: 09/29/22 20:05 Dose: 650 mg Documented By: HARPREET Acyclovir (Acyclovir 200 Mg Capsule) 400 mg PO DAILY [facility] Last Admin: 09/30/22 08:42 Dose: 400 mg Documented By: MICHELLE Allopurinol (Allopurinol 100 Mg Tablet) 100 mg PO DAILY [facility] Last Admin: 09/30/22 08:43 Dose: 100 mg Documented By: MICHELLE Aspirin (Aspirin Enteric Coated 81 Mg Tablet.) 81 mg PO DAILY [facility] Last Admin: 09/30/22 08:41 Dose: 81 mg Documented By: MICHELLE Calcium Carbonate (Calcium Carbonate 500 Mg Tablet) 500 mg PO BID [facility] Last Admin: 09/30/22 20:40 Dose: 500 mg Documented By: LILIANE Clozapine (Clozapine 100 Mg Tablet) 200 mg PO BEDTIME [facility] Last Admin: 09/30/22 20:40 Dose: 200 mg Documented By: LILIANE Enoxaparin Sodium (Enoxaparin Sodium 30 Mg/0.3 Ml Syringe) 30 mg SUBCUT Q24H [facility] Last Admin: 09/30/22 15:35 Dose: 30 mg Documented By: MICHELLE Ferrous Sulfate (Ferrous Sulfate 324 Mg Tablet.) 324 mg PO DAILY [facility] Last Admin: 09/30/22 08:41 Dose: 324 mg Documented By: MICHELLE Azithromycin 500 mg/ Sodium (Chloride) 250 mls @ 125 mls/hr IV Q24H [facility] Last Infusion: 09/30/22 17:31 Dose: 0 mls/hr Documented By: MICHELLE Ceftriaxone Sodium 1 gm/ (Sodium Chloride) 50 mls @ 100 mls/hr IV Q24H [facility] Last Infusion: 09/30/22 14:48 Dose: 0 mls/hr Documented By: MICHELLE Sodium Chloride (Ns) 1,000 mls @ 100 mls/hr IVCONT .Q10H [facility] Last Admin: 10/01/22 02:04 Dose: 100 mls/hr Documented By: LILIANE Levalbuterol HCl (Levalbuterol Hcl 1.25 Mg/0.5 Ml Vial.Neb) 1.25 mg INHALE RQ4H WHILE AWAKE PRN PRN Reason: Shortness of Breath/Wheezing Loperamide HCl (Loperamide Hcl 2 Mg Capsule) 2 mg PO DAILY PRN PRN Reason: Diarrhea Loratadine (Loratadine 10 Mg Tablet) 10 mg PO BEDTIME [facility] Last Admin: 09/30/22 20:40 Dose: 10 mg Documented By: LILIANE Lorazepam (Lorazepam 1 Mg Tablet) 1 mg PO DAILY PRN PRN Reason: Anxiety Metoclopramide HCl (Metoclopramide Hcl 10 Mg/2 Ml Vial) 5 mg IVPUSH Q6H PRN PRN Reason: Nausea Metoprolol Tartrate (Metoprolol Tartrate 25 Mg Tablet) 25 mg PO BID [facility]; Protocol Last Admin: 09/30/22 20:40 Dose: 25 mg Documented By: LILIANE Omeprazole (Omeprazole 20 Mg Capsule.) 20 mg PO DAILY@0630 [facility] Last Admin: 10/01/22 05:56 Dose: 20 mg Documented By: LILIANE Pharmacy Consult (Consult Rx Perform Med Rec) 1 each MISCELLANE ONCE PRN PRN Reason: Consult order Senna (Sennosides 8.6 Mg Tablet) 17.2 mg PO DAILY PRN PRN Reason: Constipation Sodium Chloride (0.9 % Sodium Chloride Flush 3 Ml Syringe) 3 ml IVFLUSH QSHIFT [facility] Last Admin: 09/30/22 21:35 Dose: Not Given Documented By: LILIANE Non-Admin Reason: IV Running Vitamin D (Cholecalciferol (Vitamin D3) 25 Mcg Tablet) 50 mcg PO DAILY [facility] Last Admin: 09/30/22 08:42 Dose: 50 mcg Documented By: MICHELLE Labs 09/30/22 05:55 09/30/22 05:55 Microbiology Microbiology Results: Microbiology 09/29/22 12:15 Blood Culture - Preliminary Blood - Venous No growth after 24 hours. 09/29/22 12:10 Blood Culture - Preliminary Blood - Venous No growth after 24 hours. Assessment and Plan (1) Acute kidney injury superimposed on CKD: Status: Acute (2) Pneumonia: Status: Acute Plan 7-year-old female with a PMH significant for dementia, multiple myeloma, schizoaffective disorder, HTN, asthma, and gout who presents to the ED with?with worsening cough and confusion. Pt will be admitted to the hospital for treatment evaluation of sepsis secondary to community-acquired pneumonia. severe Sepsis POA, d/t Community-acquired pneumonia Clinically repsonding to treament IV abx: ceftriaxone, azithromycin D3 Xopenex PRN O2 PRN Acute toxic metabolic encephalopathy d/t PNA and underlying conginitive impairment Patient's granddaughter states she has been more confused than usual Acute lactic acidosis Patient's lactic acid initially 3.4 went down to 3 then to 4 ELEONORA on CKD stage 3 Patient's creatinine 1.98, elevated from baseline of 1.2, and on 09/30 1.2 so back to baseline stop IVF Follow BMP Pancytopenia Likely secondary to multiple myeloma Seems stable, near baseline Follow CBC, hold transfusion unless hgb < 7 Multiple Myeloma Continue Revlimid, filgrastim DNR/DNI DVT Prophylaxis: Lovenox Need for inpatient: sespsis, PNA, metaboli encephalopathy, needs IV Abx. Time Spent With Patient Time: Total time managing care of this patient today ____ minutes. Quality Stroke Does the patient have a stroke diagnosis?: No VTE Prior VTE?: No VTE Risk Level:: Medical - moderate - high VTE Device Contraindication: Treatment Not Indicated VTE Drug Contraindication: N/A - Med Ordered
[2022-10-01 08:00] VITALS: BP 108/74; PULSE 111; RESP 18; TEMP 36.9; O2SAT 100
[2022-10-01 08:36] LABS: Hematocrit 23.5 % (37.0-47.0); Hemoglobin 7.5 g/dl (12.0-16.0); Mean Corpuscular HGB Conc 31.9 g/dl (31.0-35.0); Mean Corpuscular Hemoglobin 29.8 pg (27.0-33.0); Mean Corpuscular Volume 93.3 fL (80.0-98.0); Mean Platelet Volume 11.7 fL (9.4-12.3); Red Blood Count 2.52 X10*6/uL (4.20-5.50); Red Cell Distribution Width 16.7 % (11.0-16.0)
[2022-10-01 08:38] LABS: Platelet Count 70 X10*3/uL (160-400)
[2022-10-01 08:54] LABS: White Blood Count 0.8 X10*3/uL (4.8-10.8)
[2022-10-01 09:03] LABS: Anion Gap 14 (12-20); Blood Urea Nitrogen 8 mg/dL (9-16); Calcium 6.5 mg/dL (8.4-10.2); Carbon Dioxide 15 mmol/L (22-29); Chloride 116 mmol/L (96-108); Creatinine Clr Calc Pharmacy 40.5; Estimated Glomerular Filt Rate 49; Glucose Random 88 mg/dL (60-115); Potassium 2.8 mmol/L (3.3-5.1); Sodium 142 mmol/L (135-145)
[2022-10-01] MEDS: Ferrous Sulfate 324 MG TABLET.DR PO (09:03)
[2022-10-01] MEDS: Cholecalciferol (Vitamin D3) 25 MCG TABLET 50 MCG PO (09:03)
[2022-10-01] MEDS: allopurinoL 100 MG TABLET PO (09:04)
[2022-10-01] MEDS: Acyclovir 200 MG CAPSULE 400 MG PO (09:04)
[2022-10-01] MEDS: Aspirin Enteric Coated 81 MG TABLET.DR PO (09:04)
[2022-10-01] MEDS: Metoprolol Tartrate 25 MG TABLET PO ×2 (09:06→21:13)
--- NOTE | 2022-10-01 10:29 | MHC.CM.PN ---
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
[2022-10-01] MEDS: cefTRIAXone sodium 1 GM in 0.9 % Sodium Chloride 50 ML IV (14:16)
[2022-10-01] MEDS: Azithromycin 500 MG in 0.9 % Sodium Chloride 250 ML 125 MG IV (14:50)
[2022-10-01] MEDS: Enoxaparin Sodium 30 MG/0.3 ML SYRINGE SUBCUT (14:53)
[2022-10-01] MEDS: 0.9 % Sodium Chloride Flush 3 ML SYRINGE IVFLUSH ×2 (14:54→21:13)
[2022-10-01 15:31] VITALS: BP 116/66; PULSE 98; RESP 18; TEMP 37.3; O2SAT 96
[2022-10-01 19:55] VITALS: BP 123/80; PULSE 97; RESP 18; TEMP 36.8; O2SAT 95
[2022-10-01] MEDS: Loratadine 10 MG TABLET PO (21:12)
[2022-10-01] MEDS: cloZAPine 100 MG TABLET 200 MG PO (21:12)
[2022-10-01 22:35] VITALS: PULSE 97; RESP 18; O2SAT 95
[2022-10-02] VITALS (7 sets, daily range): BP systolic 87–129; BP diastolic 63–86; PULSE 87–107; RESP 16–22; TEMP 36.9–37.7; O2SAT 92–99
[2022-10-02] MEDS: Omeprazole 20 MG CAPSULE.DR PO (05:06)
[2022-10-02] MEDS: 0.9 % Sodium Chloride Flush 3 ML SYRINGE IVFLUSH ×3 (07:39→20:05)
[2022-10-02] MEDS: Acyclovir 200 MG CAPSULE 400 MG PO (08:37)
[2022-10-02] MEDS: Ferrous Sulfate 324 MG TABLET.DR PO (08:37)
[2022-10-02] MEDS: Cholecalciferol (Vitamin D3) 25 MCG TABLET 50 MCG PO (08:38)
[2022-10-02] MEDS: Metoprolol Tartrate 25 MG TABLET PO ×2 (08:39→20:10)
[2022-10-02] MEDS: Aspirin Enteric Coated 81 MG TABLET.DR PO (08:39)
[2022-10-02] MEDS: allopurinoL 100 MG TABLET PO (09:01)
[2022-10-02] MEDS: Acetaminophen 325 MG TABLET 650 MG PO ×2 (09:01→20:05)
[2022-10-02 09:23] LABS: Hematocrit 23.7 % (37.0-47.0); Hemoglobin 7.5 g/dl (12.0-16.0); Mean Corpuscular HGB Conc 31.6 g/dl (31.0-35.0); Mean Corpuscular Hemoglobin 29.5 pg (27.0-33.0); Mean Corpuscular Volume 93.3 fL (80.0-98.0); Mean Platelet Volume 10.6 fL (9.4-12.3); Platelet Count 75 X10*3/uL (160-400); Red Blood Count 2.54 X10*6/uL (4.20-5.50); Red Cell Distribution Width 16.5 % (11.0-16.0); White Blood Count 1.3 X10*3/uL (4.8-10.8)
[2022-10-02 09:38] LABS: Anion Gap 12 (12-20); Blood Urea Nitrogen 8 mg/dL (9-16); Calcium 6.5 mg/dL (8.4-10.2); Carbon Dioxide 20 mmol/L (22-29); Chloride 114 mmol/L (96-108); Creatinine Clr Calc Pharmacy 37.1; Estimated Glomerular Filt Rate 44; Glucose Random 120 mg/dL (60-115); Potassium 2.6 mmol/L (3.3-5.1); Sodium 143 mmol/L (135-145)
--- NOTE | 2022-10-02 10:57 | HO.PM.IMPN ---
Subjective Subjective Date of Service: 10/02/22 Interval History: f/u on pna, confusion alert but still very confused. Review of Systems Unable to obtain due to patient's mentation Physical Exam Vital Signs: Vital Signs: Last Vital Signs Temp 99.9 F 10/02/22 07:30 Pulse 104 H 10/02/22 07:30 Resp 18 10/02/22 07:30 BP 121/67 10/02/22 07:30 Pulse Ox 96 10/02/22 07:30 O2 Del Method 10/02/22 07:30 BMI result Body Mass Index 30.2 Const: Other: General: AO X 1, no acute distress Resp: CTA bilateral CVS: S1,S2,RRR GI: +BS, NT, no distention Skin: No rash Neuro: motor grossly intact Psych: appropriate affect Objective Data Active Medications Acetaminophen (Acetaminophen 325 Mg Tablet) 650 mg PO Q6H PRN PRN Reason: Pain, Mild (Pain Scale 1-3) Last Admin: 10/02/22 09:01 Dose: 650 mg Documented By: TATE Acyclovir (Acyclovir 200 Mg Capsule) 400 mg PO DAILY [facility] Last Admin: 10/02/22 08:37 Dose: 400 mg Documented By: TATE Allopurinol (Allopurinol 100 Mg Tablet) 100 mg PO DAILY [facility] Last Admin: 10/02/22 09:01 Dose: 100 mg Documented By: TATE Aspirin (Aspirin Enteric Coated 81 Mg Tablet.) 81 mg PO DAILY [facility] Last Admin: 10/02/22 08:39 Dose: 81 mg Documented By: TATE Calcium Carbonate (Calcium Carbonate 500 Mg Tablet) 500 mg PO BID [facility] Last Admin: 10/02/22 08:38 Dose: 500 mg Documented By: TATE Clozapine (Clozapine 100 Mg Tablet) 200 mg PO BEDTIME [facility] Last Admin: 10/01/22 21:12 Dose: 200 mg Documented By: DOREENILSuzanne Enoxaparin Sodium (Enoxaparin Sodium 30 Mg/0.3 Ml Syringe) 30 mg SUBCUT Q24H [facility] Last Admin: 10/01/22 14:53 Dose: 30 mg Documented By: MCIHELLE Ferrous Sulfate (Ferrous Sulfate 324 Mg Tablet.) 324 mg PO DAILY [facility] Last Admin: 10/02/22 08:37 Dose: 324 mg Documented By: TATE Azithromycin 500 mg/ Sodium (Chloride) 250 mls @ 125 mls/hr IV Q24H [facility] Last Infusion: 10/01/22 17:28 Dose: 0 mls/hr Documented By: MICHELLE Ceftriaxone Sodium 1 gm/ (Sodium Chloride) 50 mls @ 100 mls/hr IV Q24H [facility] Last Infusion: 10/01/22 14:50 Dose: 0 mls/hr Documented By: MICHELLE Levalbuterol HCl (Levalbuterol Hcl 1.25 Mg/0.5 Ml Vial.Gabriela) 1.25 mg INHALE RQ4H WHILE AWAKE PRN PRN Reason: Shortness of Breath/Wheezing Last Admin: 10/01/22 22:35 Dose: 1.25 mg Documented By: ALLYSSA Loperamide HCl (Loperamide Hcl 2 Mg Capsule) 2 mg PO DAILY PRN PRN Reason: Diarrhea Loratadine (Loratadine 10 Mg Tablet) 10 mg PO BEDTIME [facility] Last Admin: 10/01/22 21:12 Dose: 10 mg Documented By: BENNY Lorazepam (Lorazepam 1 Mg Tablet) 1 mg PO DAILY PRN PRN Reason: Anxiety Metoclopramide HCl (Metoclopramide Hcl 10 Mg/2 Ml Vial) 5 mg IVPUSH Q6H PRN PRN Reason: Nausea Metoprolol Tartrate (Metoprolol Tartrate 25 Mg Tablet) 25 mg PO BID [facility]; Protocol Last Admin: 10/02/22 08:39 Dose: 25 mg Documented By: TATE Omeprazole (Omeprazole 20 Mg Capsule.) 20 mg PO DAILY@0630 [facility] Last Admin: 10/02/22 05:06 Dose: 20 mg Documented By: BENNY Pharmacy Consult (Consult Rx Perform Med Rec) 1 each MISCELLANE ONCE PRN PRN Reason: Consult order Senna (Sennosides 8.6 Mg Tablet) 17.2 mg PO DAILY PRN PRN Reason: Constipation Sodium Chloride (0.9 % Sodium Chloride Flush 3 Ml Syringe) 3 ml IVFLUSH QSHIFT [facility] Last Admin: 10/02/22 07:39 Dose: 3 ml Documented By: TATE Vitamin D (Cholecalciferol (Vitamin D3) 25 Mcg Tablet) 50 mcg PO DAILY [facility] Last Admin: 10/02/22 08:38 Dose: 50 mcg Documented By: TATE Labs 10/02/22 04:26 10/02/22 09:06 Labs: Laboratory Results - last 24 hr 10/02/22 10/02/22 04:26 09:06 MCV 93.3 MCH 29.5 MCHC 31.6 RDW 16.5 H Plt Count 75 L MPV 10.6 Absolute Nucleated RBC 0.000 Nucleated RBC % (auto) 0.0 Anion Gap 12 Estim Creat Clear Calc 37.1 Estimated GFR 44 Random Glucose 120 H Calcium 6.5 L Microbiology Microbiology Results: Microbiology 09/29/22 12:15 Blood Culture - Preliminary Blood - Venous No growth after 48 hours. 09/29/22 12:10 Blood Culture - Preliminary Blood - Venous No growth after 48 hours. Assessment and Plan (1) Acute kidney injury superimposed on CKD: Status: Acute (2) Pneumonia: Status: Acute (3) Metabolic encephalopathy: Status: Acute Plan 77-year-old female with a PMH significant for dementia, multiple myeloma, schizoaffective disorder, HTN, asthma, and gout who presents to the ED with?with worsening cough and confusion. Pt will be admitted to the hospital for treatment evaluation of sepsis secondary to community-acquired pneumonia. severe Sepsis POA, d/t Community-acquired pneumonia Clinically repsonding to treament IV abx: ceftriaxone, azithromycin D4 Xopenex PRN O2 PRN Acute toxic metabolic encephalopathy d/t PNA and underlying conginitive impairment Patient's granddaughter states she has been more confused than usual continue to monitor clinically Acute lactic acidosis Patient's lactic acid initially 3.4 went down to 3 the ELEONORA on CKD stage 3 Patient's creatinine 1.98, elevated from baseline of 1.2, and on 09/30 1.2 so back to baseline stop IVF Follow BMP Pancytopenia Likely secondary to multiple myeloma Seems stable, near baseline Follow CBC, hold transfusion unless hgb < 7 Multiple Myeloma Continue Revlimid, filgrastim HypOkalemia, replace with PO and IV K, check mag anc correct as needed, repeat labs later today DNR/DNI DVT Prophylaxis: Lovenox Need for inpatient: sespsis, PNA, metaboli encephalopathy, needs IV Abx, electrolytes replacement Time Spent With Patient Time: Total time managing care of this patient today ____ minutes. Quality Stroke Does the patient have a stroke diagnosis?: No VTE Prior VTE?: No VTE Risk Level:: Medical - moderate - high VTE Device Contraindication: Treatment Not Indicated VTE Drug Contraindication: N/A - Med Ordered
[2022-10-02] MEDS: Potassium Chloride Packet 20 MEQ PACKET 40 MEQ PO ×2 (11:10→18:13)
[2022-10-02] MEDS: Potassium Chloride/H20 10 MEQ/100 ML PIGGYBACK 100 MEQ IV ×2 (11:11→12:22)
--- NOTE | 2022-10-02 12:03 | P.CDIM_ITS ---
PROVIDER RESPONSE TEXT: To clarify, the appropriate diagnosis supported by the clinical indicators: Hypokalemia: It is already documented QUERY TEXT: PHYSICIAN'S DOCUMENTATION REQUEST Date of Query: 10/02/2022 11:00 AM EDT Patient Name: Jeanne Younger Admit Date: 09/29/2022 Dear Moiz Mccloud, A review of the medical record indicates additional documentation may be needed. Please review below and update the documentation accordingly. Clinical Indicators: LAB FINDINGS 09/30 - Potassium 2.8 L 2.6 L IV Potassium Chloride Based on the above, could you clarify the appropriate diagnosis, if significant, that supports the ab ove abnormalities and additional evaluation, monitoring, and/or treatment rendered: Hypokalemia Other etiology of lab findings Unable to determine Other (explain) Clinically unable to determine (explain) Thank you, Lilliana Us, CCS, CDIS Use of terms such as suspected, likely, concern for, or probable (associated with a specific diagnosi s that is being evaluated, monitored, or treated as if it exists) are acceptable and can be coded in the inpatient se tting, when documented at the time of discharge. Please use your independent medical judgment in providing your response. THIS QUERY IS PART OF THE PERMANENT MEDICAL RECORD
--- NOTE | 2022-10-02 12:21 | MHC.SL.SWA ---
Speech Pathologist Impression: Risk of Aspiration Due to: Weak Cough Dysphasia Diet Status: Liquid Consistency and Strategies for Safe Swallow: Liquid Intake Recommendation: Thin Liquid Intake Strategies: Unrestricted Solid Food Consistency: Dietary Recommendations: Chopped/Advanced (NDD3) Additional Modifications to Solid Foods: Avoid mixed consistencies. Oral Medication Intake: Whole with Puree Please contact the pharmacy regarding appropriate crushable or liquid drug formulations that are available whenever modified delivery is recommended. Compensatory Strategies and Precautions to be Taken for Safe Swallow: Supervision While Eating and Drinking for Safe Swallow: Intermittent Supervision Foods to Avoid: Difficult to chew solids. Swallowing Recommended Treatments: Compens. Strategy Educat. Hvac Technician Residential Clinican/Clinical Fellow: No Supervisory Statement: I have reviewed and agree with the student/clinical fellow's documentation: N/A Speech Language Pathologist: Kingston Gee M.A., CCC-CONTROL CLERK HEAD
[2022-10-02] MEDS: cefTRIAXone sodium 1 GM in 0.9 % Sodium Chloride 50 ML IV (13:43)
--- NOTE | 2022-10-02 13:47 | MHC.CM.PN ---
Per MD rounds no dc today. K is low,replacement ordered. Patient continues with confusion. DP Home with resumption of Foster Care @ [facility] home. [facility] will provide transportation home.
[2022-10-02] MEDS: Azithromycin 500 MG in 0.9 % Sodium Chloride 250 ML 125 MG IV (14:11)
[2022-10-02] MEDS: Enoxaparin Sodium 30 MG/0.3 ML SYRINGE SUBCUT (14:13)
[2022-10-02] MEDS: Loratadine 10 MG TABLET PO (20:04)
[2022-10-02] MEDS: cloZAPine 100 MG TABLET 200 MG PO (20:05)
[2022-10-03 03:48] VITALS: BP 113/57; PULSE 94; RESP 20; TEMP 36.2; O2SAT 99
[2022-10-03] MEDS: Omeprazole 20 MG CAPSULE.DR PO (05:41)
[2022-10-03] MEDS: 0.9 % Sodium Chloride Flush 3 ML SYRINGE IVFLUSH ×3 (07:10→23:33)
[2022-10-03 07:49] VITALS: BP 113/72; PULSE 97; RESP 18; TEMP 36.6; O2SAT 98
[2022-10-03] MEDS: Ferrous Sulfate 324 MG TABLET.DR PO (08:33)
[2022-10-03] MEDS: Metoprolol Tartrate 25 MG TABLET PO ×2 (08:33→21:09)
[2022-10-03] MEDS: Acyclovir 200 MG CAPSULE 400 MG PO (08:34)
[2022-10-03] MEDS: allopurinoL 100 MG TABLET PO (08:34)
[2022-10-03] MEDS: Aspirin Enteric Coated 81 MG TABLET.DR PO (08:34)
[2022-10-03] MEDS: Cholecalciferol (Vitamin D3) 25 MCG TABLET 50 MCG PO (08:34)
[2022-10-03 09:04] LABS: Anion Gap 9 (12-20); Blood Urea Nitrogen 9 mg/dL (9-16); Calcium 6.5 mg/dL (8.4-10.2); Carbon Dioxide 22 mmol/L (22-29); Chloride 119 mmol/L (96-108); Creatinine Clr Calc Pharmacy 39.5; Estimated Glomerular Filt Rate 47; Glucose Random 113 mg/dL (60-115); Potassium 3.4 mmol/L (3.3-5.1); Sodium 147 mmol/L (135-145)
[2022-10-03 09:05] LABS: B Type Natriuretic Peptide 61 pg/mL (<100)
[2022-10-03] MEDS: Metoclopramide HCl 10 MG/2 ML VIAL 5 MG IVPUSH (09:59)
--- NOTE | 2022-10-03 10:58 | HO.PM.IMPN ---
Subjective Subjective Date of Service: 10/03/22 Interval History: f/u on pna, confusion More alert today, no sob, sodium if 147, grandaugther at bedside Physical Exam Vital Signs: Vital Signs: Last Vital Signs Temp 97.8 F 10/03/22 07:49 Pulse 97 10/03/22 07:49 Resp 18 10/03/22 07:49 BP 113/72 10/03/22 07:49 Pulse Ox 98 10/03/22 07:49 O2 Del Method 10/03/22 07:49 BMI result Body Mass Index 30.2 Const: Other: General: AO X 2, no acute distress Resp: clear, rhonchi in throat CVS: S1,S2,RRR GI: +BS, NT, no distention Skin: No rash Neuro: motor grossly intact Psych: appropriate affect Objective Data Active Medications Acetaminophen (Acetaminophen 325 Mg Tablet) 650 mg PO Q6H PRN PRN Reason: Pain, Mild (Pain Scale 1-3) Last Admin: 10/02/22 20:05 Dose: 650 mg Documented By: BENNY Acyclovir (Acyclovir 200 Mg Capsule) 400 mg PO DAILY [facility] Last Admin: 10/03/22 08:34 Dose: 400 mg Documented By: TOMI Allopurinol (Allopurinol 100 Mg Tablet) 100 mg PO DAILY [facility] Last Admin: 10/03/22 08:34 Dose: 100 mg Documented By: TOMI Aspirin (Aspirin Enteric Coated 81 Mg Tablet.) 81 mg PO DAILY [facility] Last Admin: 10/03/22 08:34 Dose: 81 mg Documented By: TOMI Calcium Carbonate (Calcium Carbonate 500 Mg Tablet) 500 mg PO BID [facility] Last Admin: 10/03/22 08:34 Dose: 500 mg Documented By: TOMI Clozapine (Clozapine 100 Mg Tablet) 200 mg PO BEDTIME [facility] Last Admin: 10/02/22 20:05 Dose: 200 mg Documented By: BENNY Enoxaparin Sodium (Enoxaparin Sodium 30 Mg/0.3 Ml Syringe) 30 mg SUBCUT Q24H [facility] Last Admin: 10/02/22 14:13 Dose: 30 mg Documented By: TATE Ferrous Sulfate (Ferrous Sulfate 324 Mg Tablet.) 324 mg PO DAILY [facility] Last Admin: 10/03/22 08:33 Dose: 324 mg Documented By: TOMI Azithromycin 500 mg/ Sodium (Chloride) 250 mls @ 125 mls/hr IV Q24H [facility] Last Infusion: 10/02/22 16:11 Dose: 0 mls/hr Documented By: TATE Ceftriaxone Sodium 1 gm/ (Sodium Chloride) 50 mls @ 100 mls/hr IV Q24H [facility] Last Infusion: 10/02/22 14:13 Dose: 0 mls/hr Documented By: TATE Levalbuterol HCl (Levalbuterol Hcl 1.25 Mg/0.5 Ml Vial.Neb) 1.25 mg INHALE RQ4H WHILE AWAKE PRN PRN Reason: Shortness of Breath/Wheezing Last Admin: 10/02/22 20:13 Dose: 1.25 mg Documented By: AJAY Loperamide HCl (Loperamide Hcl 2 Mg Capsule) 2 mg PO DAILY PRN PRN Reason: Diarrhea Loratadine (Loratadine 10 Mg Tablet) 10 mg PO BEDTIME [facility] Last Admin: 10/02/22 20:04 Dose: 10 mg Documented By: BENNY Lorazepam (Lorazepam 1 Mg Tablet) 1 mg PO DAILY PRN PRN Reason: Anxiety Metoclopramide HCl (Metoclopramide Hcl 10 Mg/2 Ml Vial) 5 mg IVPUSH Q6H PRN PRN Reason: Nausea Last Admin: 10/03/22 09:59 Dose: 5 mg Documented By: TOMI Metoprolol Tartrate (Metoprolol Tartrate 25 Mg Tablet) 25 mg PO BID [facility]; Protocol Last Admin: 10/03/22 08:33 Dose: 25 mg Documented By: TOMI Omeprazole (Omeprazole 20 Mg Capsule.Dr) 20 mg PO DAILY@0630 [facility] Last Admin: 10/03/22 05:41 Dose: 20 mg Documented By: BENNY Pharmacy Consult (Consult Rx Perform Med Rec) 1 each MISCELLANE ONCE PRN PRN Reason: Consult order Senna (Sennosides 8.6 Mg Tablet) 17.2 mg PO DAILY PRN PRN Reason: Constipation Sodium Chloride (0.9 % Sodium Chloride Flush 3 Ml Syringe) 3 ml IVFLUSH QSHIFT [facility] Last Admin: 10/03/22 07:10 Dose: 3 ml Documented By: TOMI Vitamin D (Cholecalciferol (Vitamin D3) 25 Mcg Tablet) 50 mcg PO DAILY [facility] Last Admin: 10/03/22 08:34 Dose: 50 mcg Documented By: TOMI Labs 10/02/22 04:26 10/03/22 08:36 Labs: Laboratory Results - last 24 hr 10/03/22 10/03/22 08:36 08:36 Anion Gap 9 L Estim Creat Clear Calc 39.5 Estimated GFR 47 Random Glucose 113 Calcium 6.5 L B-Natriuretic Peptide 61 Assessment and Plan (1) Acute kidney injury superimposed on CKD: Status: Acute (2) Pneumonia: Status: Acute (3) Metabolic encephalopathy: Status: Acute Plan 77-year-old female with a PMH significant for dementia, multiple myeloma, schizoaffective disorder, HTN, asthma, and gout who presents to the ED with?with worsening cough and confusion. Pt will be admitted to the hospital for treatment evaluation of sepsis secondary to community-acquired pneumonia. severe Sepsis POA, d/t Community-acquired pneumonia, sepsis resolved Clinically repsonding to treament IV abx: ceftriaxone, azithromycin D5, change to oral Ceftin for toal of 10 day Xopenex PRN O2 PRN Acute toxic metabolic encephalopathy d/t PNA and underlying conginitive impairment Patient's granddaughter states she has been more confused than usual , She is nearly back to baseline according to chelsie at bedside continue to monitor clinically Acute lactic acidosis Patient's lactic acid initially 3.4 went down to 3 the ELEONORA on CKD stage 3, Creatinine 10/03 1.12, ELEONORA resolved. Hypernatremia Na 147 today, likely from from free water limited intake, push oral water and repeat lab if not improving then IV water Pancytopenia Likely secondary to multiple myeloma Seems stable, near baseline Follow CBC, hold transfusion unless hgb < 7 Multiple Myeloma Continue Revlimid, filgrastim HypOkalemia, replace with PO and IV K, check mag anc correct as needed, repeat labs later today DNR/DNI DVT Prophylaxis: Lovenox Need for inpatient: sespsis, PNA, metaboli encephalopathy, needs IV Abx, electrolytes replacement, hypernatremia, Time Spent With Patient Time: Total time managing care of this patient today ____ minutes. Quality Stroke Does the patient have a stroke diagnosis?: No VTE Prior VTE?: No VTE Risk Level:: Medical - moderate - high VTE Device Contraindication: Treatment Not Indicated VTE Drug Contraindication: N/A - Med Ordered
[2022-10-03] MEDS: Enoxaparin Sodium 30 MG/0.3 ML SYRINGE SUBCUT (15:05)
--- NOTE | 2022-10-03 15:09 | MHC.SPEECHCO ---
Attempted to see Pt with medical interpretter. Pt refused any items despite encouragement. Per RN, she ate 25% of a slice of pizza today, and had has been refusing everything else.
[2022-10-03 15:34] VITALS: BP 115/69; PULSE 93; RESP 17; TEMP 37.6; O2SAT 98
[2022-10-03] MEDS: Loperamide HCl 2 MG CAPSULE PO (17:46)
[2022-10-03 20:00] VITALS: BP 128/81; PULSE 94; RESP 18; TEMP 36.3; O2SAT 99
[2022-10-03] MEDS: cloZAPine 100 MG TABLET 200 MG PO (21:09)
[2022-10-03] MEDS: Loratadine 10 MG TABLET PO (21:09)
[2022-10-04 01:23] VITALS: PULSE 87; RESP 18; O2SAT 96
[2022-10-04 02:57] VITALS: BP 124/57; PULSE 69; RESP 20; TEMP 36.1; O2SAT 94
[2022-10-04] MEDS: Omeprazole 20 MG CAPSULE.DR PO (06:45)
[2022-10-04 06:59] LABS: Anion Gap 12 (12-20); Blood Urea Nitrogen 9 mg/dL (9-16); Calcium 6.3 mg/dL (8.4-10.2); Carbon Dioxide 18 mmol/L (22-29); Chloride 118 mmol/L (96-108); Creatinine Clr Calc Pharmacy 49.1; Estimated Glomerular Filt Rate > 60; Glucose Random 80 mg/dL (60-115); Potassium 3.3 mmol/L (3.3-5.1); Sodium 145 mmol/L (135-145)
[2022-10-04 08:00] VITALS: BP 114/70; PULSE 78; RESP 18; TEMP 36.1; O2SAT 100
[2022-10-04 08:38] LABS: Albumin Level 2.2 g/dL (3.5-5.0); Magnesium 1.5 mg/dL (1.6-2.6)
[2022-10-04] MEDS: Ferrous Sulfate 324 MG TABLET.DR PO (09:19)
[2022-10-04] MEDS: allopurinoL 100 MG TABLET PO (09:19)
[2022-10-04] MEDS: Cholecalciferol (Vitamin D3) 25 MCG TABLET 50 MCG PO (09:19)
[2022-10-04] MEDS: Aspirin Enteric Coated 81 MG TABLET.DR PO (09:19)
[2022-10-04] MEDS: Metoprolol Tartrate 25 MG TABLET PO ×2 (09:19→20:04)
[2022-10-04] MEDS: 0.9 % Sodium Chloride Flush 3 ML SYRINGE IVFLUSH ×3 (09:20→20:04)
[2022-10-04] MEDS: Potassium Chloride Packet 20 MEQ PACKET PO (09:20)
[2022-10-04] MEDS: Azithromycin 500 MG in 0.9 % Sodium Chloride 250 ML 125 MG IV (09:20)
[2022-10-04] MEDS: Acyclovir 200 MG CAPSULE 400 MG PO (09:22)
[2022-10-04] MEDS: cefTRIAXone sodium 1 GM in 0.9 % Sodium Chloride 50 ML IV (11:28)
--- NOTE | 2022-10-04 12:56 | MHC.SLORD ---
Speech Language Pathology Order Status: Attempted to see patient at lunch. Per Granddaughter, patient ate a little fruit at breakfast, but refused the rest of the meal and refused lunch due to no appetite as well as nausea and diarrhea. Unable to asssess toleration of diet at this time. [employer] INST[employer]ER will continue to follow.
--- NOTE | 2022-10-04 13:43 | HO.PM.IMPN ---
Subjective Subjective Date of Service: 10/04/22 Interval History: f/u on pna, confusion Review of Systems More alert today, no sob, seems more awake ,easily oriented . Physical Exam Vital Signs: Vital Signs: Last Vital Signs Temp 97.0 F 10/04/22 08:00 Pulse 78 10/04/22 08:00 Resp 18 10/04/22 08:00 BP 114/70 10/04/22 08:00 Pulse Ox 100 10/04/22 08:00 O2 Del Method 10/04/22 08:00 BMI result Body Mass Index 30.2 General: AO X 2, no acute distress Resp:? clear, rhonchi in throat CVS: S1,S2,RRR GI: +BS, NT, no distention Skin: No rash Neuro:? motor grossly intact Psych: appropriate affect Objective Data Active Medications Acetaminophen (Acetaminophen 325 Mg Tablet) 650 mg PO Q6H PRN PRN Reason: Pain, Mild (Pain Scale 1-3) Last Admin: 10/02/22 20:05 Dose: 650 mg Documented By: BENNY Acyclovir (Acyclovir 200 Mg Capsule) 400 mg PO DAILY [facility] Last Admin: 10/04/22 09:22 Dose: 400 mg Documented By: MAYNOR Allopurinol (Allopurinol 100 Mg Tablet) 100 mg PO DAILY [facility] Last Admin: 10/04/22 09:19 Dose: 100 mg Documented By: MAYNOR Aspirin (Aspirin Enteric Coated 81 Mg Tablet.) 81 mg PO DAILY [facility] Last Admin: 10/04/22 09:19 Dose: 81 mg Documented By: MAYNOR Calcium Carbonate (Calcium Carbonate 500 Mg Tablet) 500 mg PO BID [facility] Last Admin: 10/04/22 09:19 Dose: 500 mg Documented By: MAYNOR Clozapine (Clozapine 100 Mg Tablet) 200 mg PO BEDTIME [facility] Last Admin: 10/03/22 21:09 Dose: 200 mg Documented By: ISHA Enoxaparin Sodium (Enoxaparin Sodium 30 Mg/0.3 Ml Syringe) 30 mg SUBCUT Q24H [facility] Last Admin: 10/03/22 15:05 Dose: 30 mg Documented By: MARCUS Ferrous Sulfate (Ferrous Sulfate 324 Mg Tablet.) 324 mg PO DAILY [facility] Last Admin: 10/04/22 09:19 Dose: 324 mg Documented By: MAYNOR Azithromycin 500 mg/ Sodium (Chloride) 250 mls @ 125 mls/hr IV Q24H [facility] Last Infusion: 10/04/22 11:29 Dose: 0 mls/hr Documented By: MAYNOR Ceftriaxone Sodium 1 gm/ (Sodium Chloride) 50 mls @ 100 mls/hr IV Q24H [facility] Last Infusion: 10/04/22 12:02 Dose: 0 mls/hr Documented By: MAYNOR Levalbuterol HCl (Levalbuterol Hcl 1.25 Mg/0.5 Ml Vial.Gabriela) 1.25 mg INHALE RQ4H WHILE AWAKE PRN PRN Reason: Shortness of Breath/Wheezing Last Admin: 10/04/22 01:23 Dose: 1.25 mg Documented By: MARIANNA Loperamide HCl (Loperamide Hcl 2 Mg Capsule) 2 mg PO DAILY PRN PRN Reason: Diarrhea Last Admin: 10/03/22 17:46 Dose: 2 mg Documented By: MARCUS Loratadine (Loratadine 10 Mg Tablet) 10 mg PO BEDTIME [facility] Last Admin: 10/03/22 21:09 Dose: 10 mg Documented By: ISHA Lorazepam (Lorazepam 1 Mg Tablet) 1 mg PO DAILY PRN PRN Reason: Anxiety Metoclopramide HCl (Metoclopramide Hcl 10 Mg/2 Ml Vial) 5 mg IVPUSH Q6H PRN PRN Reason: Nausea Last Admin: 10/03/22 09:59 Dose: 5 mg Documented By: TOMI Metoprolol Tartrate (Metoprolol Tartrate 25 Mg Tablet) 25 mg PO BID [facility]; Protocol Last Admin: 10/04/22 09:19 Dose: 25 mg Documented By: MAYNOR Omeprazole (Omeprazole 20 Mg Capsule.) 20 mg PO DAILY@0630 [facility] Last Admin: 10/04/22 06:45 Dose: 20 mg Documented By: MAYNOR Pharmacy Consult (Consult Rx Perform Med Rec) 1 each MISCELLANE ONCE PRN PRN Reason: Consult order Senna (Sennosides 8.6 Mg Tablet) 17.2 mg PO DAILY PRN PRN Reason: Constipation Sodium Chloride (0.9 % Sodium Chloride Flush 3 Ml Syringe) 3 ml IVFLUSH QSHIFT [facility] Last Admin: 10/04/22 09:20 Dose: 3 ml Documented By: MAYNOR Vitamin D (Cholecalciferol (Vitamin D3) 25 Mcg Tablet) 50 mcg PO DAILY [facility] Last Admin: 10/04/22 09:19 Dose: 50 mcg Documented By: MAYNOR Labs 10/02/22 04:26 10/04/22 05:44 Labs: Laboratory Results - last 24 hr 10/04/22 05:44 Anion Gap 12 Estim Creat Clear Calc 49.1 Estimated GFR > 60 Random Glucose 80 Calcium 6.3 L Magnesium 1.5 L Albumin 2.2 L Assessment and Plan (1) Acute kidney injury superimposed on CKD: Status: Acute (2) Pneumonia: Status: Acute (3) Metabolic encephalopathy: Status: Acute Plan 77-year-old female with a PMH significant for dementia, multiple myeloma, schizoaffective disorder, HTN, asthma, and gout who presents to the ED with?with worsening cough and confusion. Pt will be admitted to the hospital for treatment evaluation of sepsis secondary to community-acquired pneumonia. severe Sepsis POA, d/t Community-acquired pneumonia, sepsis resolved Clinically repsonding to treament IV abx: ceftriaxone, azithromycin D5, change to oral Ceftin for toal of 10 day Xopenex PRN O2 PRN Acute toxic metabolic encephalopathy d/t PNA and underlying conginitive impairment Patient's granddaughter states she has been more confused than usual , She is nearly back to baseline according to stacyghter at bedside continue to monitor clinically Acute lactic acidosis Patient's lactic acid initially 3.4 went down to 3 the ELEONORA on CKD stage 3, Creatinine 10/03 1.12, ELEONORA resolved. Hypernatremia Na 145 , likely from from free water limited intake, push oral water and repeat lab if not improving then IV water Pancytopenia Likely secondary to multiple myeloma Seems stable, near baseline Follow CBC, hold transfusion unless hgb < 7 Multiple Myeloma Continue Revlimid, filgrastim HypOkalemia, replace with PO and IV K, check mag hypocalcemia:mild when adjusted for albumin serum calcium is 7.6. added vitamin D levels DNR/DNI DVT Prophylaxis: Lovenox Need for inpatient: sespsis, PNA, metaboli encephalopathy, needs IV Abx, electrolytes replacement, hypernatremia, Time Spent With Patient Time: Total time managing care of this patient today ____ minutes. Quality Stroke Does the patient have a stroke diagnosis?: No VTE Prior VTE?: No VTE Risk Level:: Medical - moderate - high VTE Device Contraindication: Treatment Not Indicated VTE Drug Contraindication: N/A - Med Ordered
[2022-10-04] MEDS: Calcium Gluconate/NaCl,Iso-Osm 1 GM/50 ML PLAST..BAG IV (14:20)
[2022-10-04] MEDS: Magnesium Sulfate/D5W 1 GM/100 ML PIGGYBACK IV (14:25)
[2022-10-04] MEDS: Enoxaparin Sodium 30 MG/0.3 ML SYRINGE SUBCUT (14:26)
[2022-10-04 14:32] LABS: Phosphorus 1.8 mg/dL (2.7-4.5)
[2022-10-04 15:03] LABS: Vitamin D 25-OH Total 41.8 ng/mL (>30)
[2022-10-04 15:24] VITALS: BP 117/73; PULSE 86; RESP 18; TEMP 37.1; O2SAT 99
--- NOTE | 2022-10-04 15:27 | MHC.CARE ---
per rounds pt not ready for dc plan is to resume services at home
--- NOTE | 2022-10-04 16:00 | P.CNID_ITS ---
History of Present Illness Data of Consult Service Date: 10/04/22 Requesting physician: Alexa Hanley Primary Care Provider: Gladys Orellana MD HPI Reason for consult: sepsis,pneumonia She presents to hospital with weakness for last three weeks,yellow green productive sputum and worsening encephalopathy. She has temperature 101.9 tachycardia to 111 as well as left base haziness and some groundglass opacities elsewhere. She has multiple myeloma as well as schizoaffective disorder as well as dementia. She has not had swallowing issues that I see. Review of Systems Review of Systems: Yes all other systems are reviewed and are negative [facility] Past Medical History Medical History (Updated 10/04/22 @ 16:07 by Yoselyn Best MD) Asthma Bilateral hearing loss GERD (gastroesophageal reflux disease) Hyperlipidemia Hypertension Schizophrenia Sepsis Tubular adenoma of colon Family History Family History Father Coronary artery disease High cholesterol Diabetes mellitus CVD (cardiovascular disease) Mother Alzheimer's disease Brother History of CVA (cerebrovascular accident) Stroke Sister History of CVA (cerebrovascular accident) Stroke Son No problems noted. Sister No problems noted. Sister No problems noted. Sister No problems noted. Sister No problems noted. Sister No problems noted. Brother No problems noted. Brother No problems noted. Brother No problems noted. Brother No problems noted. Brother No problems noted. Brother No problems noted. Other Hypertension Family history: reviewed and not pertinent Surgical History Surgical History History of lumpectomy History of total hysterectomy Social History Social History Household Members: Caregiver Household Members Other:: granddaughter. Housing: Apartment Are you a primary care associate to a significant other at home: No Do you presently have visiting nurse or other home services: No Alcohol intake: never Patient Tobacco Use Status: Former Tobacco user Quit Date: 2017 e-Cigarette/Vaping Use: Never Used Advance Directives Date on File: 04/15/18 service: No Current occupational status: retired Cognitive needs: No Hearing needs: No Vision needs: Yes Meds Allergies Allergy/AdvReac Type Severity Reaction Status Date / Time No Known Allergies Allergy Verified 08/22/22 09:43 [No Known Allergies*] Active Medications: Current Medications Acetaminophen (Acetaminophen 325 Mg Tablet) 650 mg PO Q6H PRN PRN Reason: Pain, Mild (Pain Scale 1-3) Last Admin: 10/02/22 20:05 Dose: 650 mg Acyclovir (Acyclovir 200 Mg Capsule) 400 mg PO DAILY [facility] Last Admin: 10/04/22 09:22 Dose: 400 mg Allopurinol (Allopurinol 100 Mg Tablet) 100 mg PO DAILY [facility] Last Admin: 10/04/22 09:19 Dose: 100 mg Aspirin (Aspirin Enteric Coated 81 Mg Tablet.) 81 mg PO DAILY [facility] Last Admin: 10/04/22 09:19 Dose: 81 mg Calcium Carbonate (Calcium Carbonate 500 Mg Tablet) 500 mg PO BID [facility] Last Admin: 10/04/22 09:19 Dose: 500 mg Clozapine (Clozapine 100 Mg Tablet) 200 mg PO BEDTIME [facility] Last Admin: 10/03/22 21:09 Dose: 200 mg Enoxaparin Sodium (Enoxaparin Sodium 30 Mg/0.3 Ml Syringe) 30 mg SUBCUT Q24H [facility] Last Admin: 10/04/22 14:26 Dose: 30 mg Ferrous Sulfate (Ferrous Sulfate 324 Mg Tablet.) 324 mg PO DAILY [facility] Last Admin: 10/04/22 09:19 Dose: 324 mg Azithromycin 500 mg/ Sodium (Chloride) 250 mls @ 125 mls/hr IV Q24H [facility] Last Infusion: 10/04/22 11:29 Dose: Infused Ceftriaxone Sodium 1 gm/ (Sodium Chloride) 50 mls @ 100 mls/hr IV Q24H [facility] Last Infusion: 10/04/22 12:02 Dose: Infused Levalbuterol HCl (Levalbuterol Hcl 1.25 Mg/0.5 Ml Vial.Neb) 1.25 mg INHALE RQ4H WHILE AWAKE PRN PRN Reason: Shortness of Breath/Wheezing Last Admin: 10/04/22 01:23 Dose: 1.25 mg Loperamide HCl (Loperamide Hcl 2 Mg Capsule) 2 mg PO DAILY PRN PRN Reason: Diarrhea Last Admin: 10/03/22 17:46 Dose: 2 mg Loratadine (Loratadine 10 Mg Tablet) 10 mg PO BEDTIME [facility] Last Admin: 10/03/22 21:09 Dose: 10 mg Magnesium Oxide (Magnesium Oxide 400 Mg Tablet) [facility] Metoclopramide HCl (Metoclopramide Hcl 10 Mg/2 Ml Vial) 5 mg IVPUSH Q6H PRN PRN Reason: Nausea Last Admin: 10/03/22 09:59 Dose: 5 mg Metoprolol Tartrate (Metoprolol Tartrate 25 Mg Tablet) 25 mg PO BID [facility]; Protocol Last Admin: 10/04/22 09:19 Dose: 25 mg Omeprazole (Omeprazole 20 Mg Capsule.Dr) 20 mg PO DAILY@0630 [facility] Last Admin: 10/04/22 06:45 Dose: 20 mg Pharmacy Consult (Consult Rx Perform Med Rec) 1 each MISCELLANE ONCE PRN PRN Reason: Consult order Potassium Phos/Sodium Phos (Sodium,Potassium Phosphates Powd.Pack) 1 packet PO QID [facility] Senna (Sennosides 8.6 Mg Tablet) 17.2 mg PO DAILY PRN PRN Reason: Constipation Sodium Chloride (0.9 % Sodium Chloride Flush 3 Ml Syringe) 3 ml IVFLUSH QSHIFT [facility] Last Admin: 10/04/22 15:30 Dose: 3 ml Vitamin D (Cholecalciferol (Vitamin D3) 25 Mcg Tablet) 50 mcg PO DAILY [facility] Last Admin: 10/04/22 09:19 Dose: 50 mcg Home Medications Medication Instructions Recorded Confirmed Last Taken Type albuterol sulfate 90 mcg/actuation 2 puff PO Q4H PRN Dyspnea 04/15/20 09/29/22 Unknown History aerosol inhaler clozapine 100 mg tablet 200 mg PO BEDTIME 04/15/20 09/29/22 09/28/22 History loperamide 2 mg capsule 2 mg PO DAILY PRN Diarrhea 04/15/20 09/29/22 09/28/22 History (Anti-Diarrheal (loperamide)) sennosides 8.6 mg tablet (senna) 2 tab PO DAILY PRN Constipation 04/15/20 09/29/22 1 Day Ago History ~04/14/20 [id number] 300 mcg/0.5 mL 300 mcg subcut TUFR 05/04/21 09/29/22 09/22/22 History injection syringe (Zarxio) cyclosporine 0.05 % eye drops in a 1 drp ophthalmic (eye) DAILY 09/29/22 09/29/22 Unknown History dropperette (Restasis) denosumab 120 mg/1.7 mL (70 mg/mL) 120 mg subcut Q8W 09/29/22 09/29/22 Unknown History subcutaneous solution lorazepam 1 mg tablet (Ativan) 1 mg PO DAILY PRN Anxiety 09/29/22 09/29/22 Unknown History omeprazole 20 mg capsule,delayed 20 mg PO DAILY@0630 09/29/22 09/29/22 09/28/22 History release ondansetron 4 mg disintegrating 4 mg PO Q4H PRN Nausea And Vomiting 09/29/22 09/29/22 Unknown History tablet sulfamethoxazole 800 1 tab PO MOWEFR 09/29/22 09/29/22 09/27/22 History mg-trimethoprim 160 mg tablet (Bactrim DS) Physical Exam Vital Signs: Vital Signs: Last Vital Signs Temp 98.7 F 10/04/22 15:24 Pulse 86 10/04/22 15:24 Resp 18 10/04/22 15:24 BP 117/73 10/04/22 15:24 Pulse Ox 99 10/04/22 15:24 O2 Del Method 10/04/22 15:24 BMI result Body Mass Index 30.2 Resp: Other: diminished breath sounds bases Psych: Speech and movement: Slowed speech present (Psych) Results Labs 10/02/22 04:26 10/04/22 05:44 Labs: BMP 10/04/22 05:44 Sodium 145 Potassium 3.3 Chloride 118 H Carbon Dioxide 18 L BUN 9 Creatinine 0.90 Calcium 6.3 L Liver Function 10/04/22 Range/Units 05:44 Albumin 2.2 L (3.5-5.0) g/dL Microbiology Microbiology Results: Microbiology 09/29/22 12:15 Blood - Venous Blood Culture - Final No growth after 5 days. 09/29/22 12:10 Blood - Venous Blood Culture - Final No growth after 5 days. Assessment and Plan (1) Pneumonia: Status: Acute She has tachycardia and fever and likely due to pneumonia. She has encapsulated organism challenges with multiple myeloma and may have strep pneumonia,hemophilus influenza and less likely atypical organisms or MRSA. She has not had recent exposures to anyone ill. (2) Sepsis: Status: Acute Plan Check nares MRSA and urine Legionella and strep pneumonia. Would continue Cefriaxone and Azithromycin through 10/06 and then po Ceftin and Zithromax for one week. Time Spent With Patient Time: Total time managing care of this patient today ____ minutes.
[2022-10-04] MEDS: Magnesium Oxide 400 MG TABLET PO (17:23)
[2022-10-04] MEDS: Sodium,Potassium Phosphates POWD.PACK 1 PACKET PO ×2 (17:23→20:02)
[2022-10-04 19:39] VITALS: BP 118/80; PULSE 88; RESP 18; TEMP 36.5; O2SAT 100
[2022-10-04] MEDS: cloZAPine 100 MG TABLET 200 MG PO (20:01)
[2022-10-04] MEDS: Loratadine 10 MG TABLET PO (20:01)
[2022-10-05 04:00] VITALS: RESP 20
[2022-10-05] MEDS: Omeprazole 20 MG CAPSULE.DR PO (06:53)
[2022-10-05 07:28] LABS: Anion Gap 12 (12-20); Blood Urea Nitrogen 7 mg/dL (9-16); Calcium 6.1 mg/dL (8.4-10.2); Carbon Dioxide 20 mmol/L (22-29); Chloride 118 mmol/L (96-108); Creatinine Clr Calc Pharmacy 47.6; Estimated Glomerular Filt Rate 59; Glucose Random 88 mg/dL (60-115); Potassium 3.8 mmol/L (3.3-5.1); Sodium 146 mmol/L (135-145)
[2022-10-05 07:54] VITALS: BP 126/76; PULSE 74; RESP 18; TEMP 36.3; O2SAT 99
[2022-10-05] MEDS: Azithromycin 500 MG in 0.9 % Sodium Chloride 250 ML 125 MG IV (08:38)
[2022-10-05] MEDS: Calcium Gluconate/NaCl,Iso-Osm 1 GM/50 ML PLAST..BAG IV (08:38)
[2022-10-05] MEDS: Dextrose 5 % 1,000 ML 50 ML IVCONT (08:39)
[2022-10-05] MEDS: 0.9 % Sodium Chloride Flush 3 ML SYRINGE IVFLUSH ×2 (08:39→19:21)
[2022-10-05] MEDS: Aspirin Enteric Coated 81 MG TABLET.DR PO (08:50)
[2022-10-05] MEDS: allopurinoL 100 MG TABLET PO (08:50)
[2022-10-05] MEDS: Metoprolol Tartrate 25 MG TABLET PO ×2 (08:50→19:16)
[2022-10-05] MEDS: Acyclovir 200 MG CAPSULE 400 MG PO (08:50)
[2022-10-05] MEDS: Magnesium Oxide 400 MG TABLET PO ×2 (08:50→17:24)
[2022-10-05] MEDS: Cholecalciferol (Vitamin D3) 25 MCG TABLET 50 MCG PO (08:51)
[2022-10-05] MEDS: Sodium,Potassium Phosphates POWD.PACK 1 PACKET PO ×4 (08:51→19:16)
[2022-10-05] MEDS: Ferrous Sulfate 324 MG TABLET.DR PO (08:51)
[2022-10-05 09:18] VITALS: PULSE 86; RESP 18; O2SAT 95
[2022-10-05 09:35] LABS: Sodium 146 mmol/L (135-145)
[2022-10-05 09:42] LABS: Magnesium 1.8 mg/dL (1.6-2.6)
--- NOTE | 2022-10-05 10:03 | P.CONNP_ITS ---
History of Present Illness Reason for Consult Consult date: 10/05/22 Reason for consult: Electrolyte imbalance Chief Complaint Chief complaint: Increasing cough, Confusion History of Present Illness Narrative: 77-year-old female with a PMH significant for dementia, multiple myeloma, schizoaffective disorder, HTN, asthma, and gout who presents to the ED with?with worsening cough and confusion.? Patient is Lebanese-speaking only and has baseline dementia and currently encephalopathic.? Patient apparently has been e xperiencing symptoms for the past 3 weeks.? Patient has had a cough productive of greenish sputum and is generally more fatigued . Was not complaining of shortness of breath, difficulty breathing.? Pt seemed to be getting better patient had increased fatigue, cough to the point where she vomited once, and seemed more confused than before.? Patient could not follow commands and was not responding correctly to questions.? Patient normally is alert and oriented only to herself a capable of following basic commands.? Patient seemed unsteady on her feet. Review of Systems Review of Systems Today she has no headache nausea vomiting. No shortness of breath. No abdominal pain or constipation. No rash Yes all other systems are reviewed and are negative [facility] Past Medical History Medical History (Updated 10/08/22 @ 12:23 by Alexa Hanley MD) Asthma Bilateral hearing loss GERD (gastroesophageal reflux disease) Hyperlipidemia Hypertension Schizophrenia Sepsis Tubular adenoma of colon Family History Family History Father Coronary artery disease High cholesterol Diabetes mellitus CVD (cardiovascular disease) Mother Alzheimer's disease Brother History of CVA (cerebrovascular accident) Stroke Sister History of CVA (cerebrovascular accident) Stroke Son No problems noted. Sister No problems noted. Sister No problems noted. Sister No problems noted. Sister No problems noted. Sister No problems noted. Brother No problems noted. Brother No problems noted. Brother No problems noted. Brother No problems noted. Brother No problems noted. Brother No problems noted. Other Hypertension Family history: reviewed and not pertinent Surgical History Surgical History History of lumpectomy History of total hysterectomy Social History Social History Household Members: Caregiver Household Members Other:: granddaughter. Housing: Apartment Are you a primary animal caregiver to a significant other at home: No Do you presently have visiting nurse or other home services: No Alcohol intake: never Patient Tobacco Use Status: Former Tobacco user Quit Date: 2017 e-Cigarette/Vaping Use: Never Used Advance Directives Date on File: 04/15/18 service: No Current occupational status: retired Cognitive needs: No Hearing needs: No Vision needs: Yes Meds Allergies Allergy/AdvReac Type Severity Reaction Status Date / Time No Known Allergies Allergy Verified 08/22/22 09:43 [No Known Allergies*] Active Medications: Current Medications Acetaminophen (Acetaminophen 325 Mg Tablet) 650 mg PO Q6H PRN PRN Reason: Pain, Mild (Pain Scale 1-3) Last Admin: 10/02/22 20:05 Dose: 650 mg Acyclovir (Acyclovir 200 Mg Capsule) 400 mg PO DAILY [facility] Last Admin: 10/05/22 08:50 Dose: 400 mg Allopurinol (Allopurinol 100 Mg Tablet) 100 mg PO DAILY [facility] Last Admin: 10/05/22 08:50 Dose: 100 mg Aspirin (Aspirin Enteric Coated 81 Mg Tablet.) 81 mg PO DAILY [facility] Last Admin: 10/05/22 08:50 Dose: 81 mg Calcium Carbonate (Calcium Carbonate 500 Mg Tablet) 500 mg PO BID [facility] Last Admin: 10/05/22 08:50 Dose: 500 mg Clozapine (Clozapine 100 Mg Tablet) 200 mg PO BEDTIME [facility] Last Admin: 10/04/22 20:01 Dose: 200 mg Enoxaparin Sodium (Enoxaparin Sodium 30 Mg/0.3 Ml Syringe) 30 mg SUBCUT Q24H [facility] Last Admin: 10/04/22 14:26 Dose: 30 mg Ferrous Sulfate (Ferrous Sulfate 324 Mg Tablet.) 324 mg PO DAILY [facility] Last Admin: 10/05/22 08:51 Dose: 324 mg Azithromycin 500 mg/ Sodium (Chloride) 250 mls @ 125 mls/hr IV Q24H [facility] Last Admin: 10/05/22 08:38 Dose: 125 mls/hr Ceftriaxone Sodium 1 gm/ (Sodium Chloride) 50 mls @ 100 mls/hr IV Q24H [facility] Last Infusion: 10/04/22 12:02 Dose: Infused Dextrose (D5w) 1,000 mls @ 50 mls/hr IVCONT .Q20H [facility] Last Admin: 10/05/22 08:39 Dose: 50 mls/hr Levalbuterol HCl (Levalbuterol Hcl 1.25 Mg/0.5 Ml Vial.Neb) 1.25 mg INHALE RQ4H WHILE AWAKE PRN PRN Reason: Shortness of Breath/Wheezing Last Admin: 10/05/22 09:16 Dose: 1.25 mg Loperamide HCl (Loperamide Hcl 2 Mg Capsule) 2 mg PO DAILY PRN PRN Reason: Diarrhea Last Admin: 10/03/22 17:46 Dose: 2 mg Loratadine (Loratadine 10 Mg Tablet) 10 mg PO BEDTIME [facility] Last Admin: 10/04/22 20:01 Dose: 10 mg Magnesium Oxide ([facility]ide 400 Mg [facility]t) [facility] Last Admin: 10/05/22 08:50 Dose: 400 mg Metoclopramide HCl (Metoclopramide Hcl 10 Mg/2 Ml Vial) 5 mg IVPUSH Q6H PRN PRN Reason: Nausea Last Admin: 10/03/22 09:59 Dose: 5 mg Metoprolol Tartrate (Metoprolol Tartrate 25 Mg Tablet) 25 mg PO BID [facility]; Protocol Last Admin: 10/05/22 08:50 Dose: 25 mg Omeprazole (Omeprazole 20 Mg Capsule.Dr) 20 mg PO DAILY@0630 [facility] Last Admin: 10/05/22 06:53 Dose: 20 mg Pharmacy Consult (Consult Rx Perform Med Rec) 1 each MISCELLANE ONCE PRN PRN Reason: Consult order Potassium Phos/Sodium Phos (Sodium,Potassium Phosphates Powd.Pack) 1 packet PO QID [facility] Last Admin: 10/05/22 08:51 Dose: 1 packet Senna (Sennosides 8.6 Mg Tablet) 17.2 mg PO DAILY PRN PRN Reason: Constipation Sodium Chloride (0.9 % Sodium Chloride Flush 3 Ml Syringe) 3 ml IVFLUSH QSHIFT [facility] Last Admin: 10/05/22 08:39 Dose: 3 ml Vitamin D (Cholecalciferol (Vitamin D3) 25 Mcg Tablet) 50 mcg PO DAILY [facility] Last Admin: 10/05/22 08:51 Dose: 50 mcg Home Medications Medication Instructions Recorded Confirmed Last Taken Type albuterol sulfate 90 mcg/actuation 2 puff PO Q4H PRN Dyspnea 04/15/20 09/29/22 Unknown History aerosol inhaler clozapine 100 mg tablet 200 mg PO BEDTIME 04/15/20 09/29/22 09/28/22 History loperamide 2 mg capsule 2 mg PO DAILY PRN Diarrhea 04/15/20 09/29/22 09/28/22 History (Anti-Diarrheal (loperamide)) sennosides 8.6 mg tablet (senna) 2 tab PO DAILY PRN Constipation 04/15/20 09/29/22 1 Day Ago History ~04/14/20 filgrastim-sndz 300 mcg/0.5 mL 300 mcg subcut TUFR 05/04/21 09/29/22 09/22/22 History injection syringe (Zarxio) cyclosporine 0.05 % eye drops in a 1 drp ophthalmic (eye) DAILY 09/29/22 09/29/22 Unknown History dropperette (Restasis) denosumab 120 mg/1.7 mL (70 mg/mL) 120 mg subcut Q8W 09/29/22 09/29/22 Unknown History subcutaneous solution lorazepam 1 mg tablet (Ativan) 1 mg PO DAILY PRN Anxiety 09/29/22 09/29/22 Unknown History omeprazole 20 mg capsule,delayed 20 mg PO DAILY@0630 09/29/22 09/29/22 09/28/22 History release ondansetron 4 mg disintegrating 4 mg PO Q4H PRN Nausea And Vomiting 09/29/22 09/29/22 Unknown History tablet sulfamethoxazole 800 1 tab PO MOWEFR 09/29/22 09/29/22 09/27/22 History mg-trimethoprim 160 mg tablet (Bactrim DS) Physical Exam Vital Signs: Last Vital Signs Temp 97.4 F 10/05/22 07:54 Pulse 86 10/05/22 09:18 Resp 18 10/05/22 09:18 BP 126/76 10/05/22 07:54 Pulse Ox 99 10/05/22 07:54 O2 Del Method Room Air 10/05/22 07:54 BMI result Body Mass Index 30.2 ?Constitutional:?Alert, in no acute distress. Mental Status:?Oriented to person only. Eyes:?Pupils are equal, round, and reactive to light. Ear, Nose, and Throat:?Oropharynx clear, mucous membranes moist. Ears and nose without deformities. Trachea midline. Respiratory:?Coarse breath sounds bilatearlly with scattered expiratory wheezing. Cardiovascular:?S1, S2 regular. No murmurs, rubs, or gallops. Gastrointestinal:?Abdomen soft, non-tender, non-distended. Normal bowel sounds. Neurologic:?Moves all extremities spontaneously. Skin:?No rashes or lesions noted. Extremities:?No edema. Results Lab Results 10/02/22 04:26 10/05/22 08:47 Lab results: Chemistry 10/03/22 10/04/22 10/05/22 08:36 05:44 05:45 Sodium 147 H 145 146 H Potassium 3.4 D 3.3 3.8 Carbon Dioxide 22 18 L 20 L BUN 9 9 7 L Creatinine 1.12 0.90 0.93 Calcium 6.5 L 6.3 L 6.1 L Phosphorus 1.8 L 10/05/22 08:47 Sodium 146 H Potassium Carbon Dioxide BUN Creatinine Calcium Phosphorus Assessment and Plan (1) Acute kidney injury superimposed on CKD: Status: Acute (2) Multiple myeloma: Qualifiers: Multiple myeloma remission status: unspecified Qualified Code(s): C90.00 - Multiple myeloma not having achieved remission Status: Acute (3) Hypokalemia: Status: Acute (4) Hypomagnesemia: Status: Acute (5) Hypocalcemia: Status: Acute (6) Hypophosphatemia: Status: Acute Plan 77-year-old woman with multiple myeloma has multiple electrolyte problems including hypernatremia, hyperchloremic metabolic acidosis, hypocalcemia and hypophosphatemia. She has been receiving denosumab ELEONORA has resolved. Recommendations Check urine for sodium creatinine, Check intact PTH. Keep intake more than the output with hypotonic fluids. Replace free water to correct hypernatremia. Add sodium bicarbonate p.o. 650 mg b.i.d. to correct acidosis. Replace phosphorus. She will follow along with the team. Thank you Time Spent With Patient Time: Total time managing care of this patient today ____ minutes. Procedures Date of Service Date of Service: 10/05/22
[2022-10-05] MEDS: cefTRIAXone sodium 1 GM in 0.9 % Sodium Chloride 50 ML IV (11:10)
[2022-10-05] MEDS: Enoxaparin Sodium 30 MG/0.3 ML SYRINGE SUBCUT (13:31)
[2022-10-05 14:46] VITALS: PULSE 87; RESP 18; O2SAT 94
[2022-10-05 15:05] LABS: MRSA Nasal PCR NEGATIVE (Negative); SA Nasal PCR POSITIVE (Negative)
--- NOTE | 2022-10-05 15:09 | HO.PM.IMPN ---
Subjective Subjective Date of Service: 10/05/22 Interval History: f/u on pna, confusion Review of Systems More alert today, no sob, seems more awake ,easily oriented . Physical Exam Vital Signs: Vital Signs: Last Vital Signs Temp 97.4 F 10/05/22 07:54 Pulse 87 10/05/22 14:46 Resp 18 10/05/22 14:46 BP 126/76 10/05/22 07:54 Pulse Ox 99 10/05/22 07:54 O2 Del Method Room Air 10/05/22 07:54 BMI result Body Mass Index 30.2 General: AO X 2, no acute distress Resp:? clear, rhonchi in throat CVS: S1,S2,RRR GI: +BS, NT, no distention Skin: No rash Neuro:? motor grossly intact Psych: appropriate affect Objective Data Active Medications Acetaminophen (Acetaminophen 325 Mg Tablet) 650 mg PO Q6H PRN PRN Reason: Pain, Mild (Pain Scale 1-3) Last Admin: 10/02/22 20:05 Dose: 650 mg Documented By: BENNY Acyclovir (Acyclovir 200 Mg Capsule) 400 mg PO DAILY [facility] Last Admin: 10/05/22 08:50 Dose: 400 mg Documented By: MAYNOR Allopurinol (Allopurinol 100 Mg Tablet) 100 mg PO DAILY [facility] Last Admin: 10/05/22 08:50 Dose: 100 mg Documented By: MAYNOR Aspirin (Aspirin Enteric Coated 81 Mg Tablet.) 81 mg PO DAILY [facility] Last Admin: 10/05/22 08:50 Dose: 81 mg Documented By: MAYNOR Calcium Carbonate (Calcium Carbonate 500 Mg Tablet) 500 mg PO BID [facility] Last Admin: 10/05/22 08:50 Dose: 500 mg Documented By: MAYNOR Clozapine (Clozapine 100 Mg Tablet) 200 mg PO BEDTIME [facility] Last Admin: 10/04/22 20:01 Dose: 200 mg Documented By: NIKHIL Enoxaparin Sodium (Enoxaparin Sodium 30 Mg/0.3 Ml Syringe) 30 mg SUBCUT Q24H [facility] Last Admin: 10/05/22 13:31 Dose: 30 mg Documented By: MAYNOR Ferrous Sulfate (Ferrous Sulfate 324 Mg Tablet.) 324 mg PO DAILY [facility] Last Admin: 10/05/22 08:51 Dose: 324 mg Documented By: MAYNOR Azithromycin 500 mg/ Sodium (Chloride) 250 mls @ 125 mls/hr IV Q24H [facility] Last Infusion: 10/05/22 10:50 Dose: 0 mls/hr Documented By: MAYNOR Ceftriaxone Sodium 1 gm/ (Sodium Chloride) 50 mls @ 100 mls/hr IV Q24H [facility] Last Infusion: 10/05/22 11:47 Dose: 0 mls/hr Documented By: MAYNOR Dextrose (D5w) 1,000 mls @ 50 mls/hr IVCONT .Q20H [facility] Last Admin: 10/05/22 08:39 Dose: 50 mls/hr Documented By: MAYNOR Levalbuterol HCl (Levalbuterol Hcl 1.25 Mg/0.5 Ml Vial.Gabriela) 1.25 mg INHALE RQ4H WHILE AWAKE PRN PRN Reason: Shortness of Breath/Wheezing Last Admin: 10/05/22 14:43 Dose: 1.25 mg Documented By: MAHNAZ Loperamide HCl (Loperamide Hcl 2 Mg Capsule) 2 mg PO DAILY PRN PRN Reason: Diarrhea Last Admin: 10/03/22 17:46 Dose: 2 mg Documented By: MARCUS Loratadine (Loratadine 10 Mg Tablet) 10 mg PO BEDTIME [facility] Last Admin: 10/04/22 20:01 Dose: 10 mg Documented By: NIKHIL [facility] ([facility] 400 Mg [facility]t) [facility] Last Admin: 10/05/22 08:50 Dose: 400 mg Documented By: MAYNOR Metoclopramide HCl (Metoclopramide Hcl 10 Mg/2 Ml Vial) 5 mg IVPUSH Q6H PRN PRN Reason: Nausea Last Admin: 10/03/22 09:59 Dose: 5 mg Documented By: TOMI Metoprolol Tartrate (Metoprolol Tartrate 25 Mg Tablet) 25 mg PO BID [facility]; Protocol Last Admin: 10/05/22 08:50 Dose: 25 mg Documented By: MAYNOR Omeprazole (Omeprazole 20 Mg Capsule.) 20 mg PO DAILY@0630 [facility] Last Admin: 10/05/22 06:53 Dose: 20 mg Documented By: NIKHIL Pharmacy Consult (Consult Rx Perform Med Rec) 1 each MISCELLANE ONCE PRN PRN Reason: Consult order Potassium Phos/Sodium Phos (Sodium,Potassium Phosphates Powd.Pack) 1 packet PO QID [facility] Last Admin: 10/05/22 13:31 Dose: 1 packet Documented By: MAYNOR Senna (Sennosides 8.6 Mg Tablet) 17.2 mg PO DAILY PRN PRN Reason: Constipation Sodium Chloride (0.9 % Sodium Chloride Flush 3 Ml Syringe) 3 ml IVFLUSH QSHIFT [facility] Last Admin: 10/05/22 13:23 Dose: Not Given Documented By: MAYNOR Non-Admin Reason: IV Running Vitamin D (Cholecalciferol (Vitamin D3) 25 Mcg Tablet) 50 mcg PO DAILY [facility] Last Admin: 10/05/22 08:51 Dose: 50 mcg Documented By: MAYNOR Labs 10/02/22 04:26 10/05/22 08:47 Labs: Laboratory Results - last 24 hr 10/05/22 05:45 Anion Gap 12 Estim Creat Clear Calc 47.6 Estimated GFR 59 Random Glucose 88 Calcium 6.1 L Magnesium 1.8 Microbiology Microbiology Results: Microbiology 09/29/22 12:15 Blood Culture - Final Blood - Venous No growth after 5 days. 09/29/22 12:10 Blood Culture - Final Blood - Venous No growth after 5 days. Assessment and Plan (1) Acute kidney injury superimposed on CKD: Status: Acute (2) Pneumonia: Status: Acute (3) Metabolic encephalopathy: Status: Acute Plan 77-year-old female with a PMH significant for dementia, multiple myeloma, schizoaffective disorder, HTN, asthma, and gout who presents to the ED with?with worsening cough and confusion. Pt will be admitted to the hospital for treatment evaluation of sepsis secondary to community-acquired pneumonia. severe Sepsis POA, d/t Community-acquired pneumonia, sepsis resolved Clinically repsonding to treament IV abx: ceftriaxone, azithromycin D5, change to oral Ceftin for toal of 10 day Xopenex PRN O2 PRN Acute toxic metabolic encephalopathy d/t PNA and underlying conginitive impairment Patient's granddaughter states she has been more confused than usual , She is nearly back to baseline according to chelsie at bedside continue to monitor clinically Acute lactic acidosis Patient's lactic acid initially 3.4 went down to 3 the ELEONORA on CKD stage 3, Creatinine 3/21 1.12, ELEONORA resolved. Hypernatremia Na 146 , likely from from free water limited intake, push oral water and repeat lab if not improving then IV water. added d5w moniter sodium levels Pancytopenia Likely secondary to multiple myeloma Seems stable, near baseline Follow CBC, hold transfusion unless hgb < 7 Multiple Myeloma Continue Revlimid, filgrastim HypOkalemia, replace with PO and IV K, check mag hypocalcemia:mild when adjusted for albumin serum calcium is 7.6. added vitamin D levels DNR/DNI DVT Prophylaxis: Lovenox Need for inpatient: sespsis, PNA, metaboli encephalopathy, needs IV Abx, electrolytes replacement, hypernatremia, Time Spent With Patient Time: Total time managing care of this patient today ____ minutes. Quality Stroke Does the patient have a stroke diagnosis?: No VTE Prior VTE?: No VTE Risk Level:: Medical - moderate - high VTE Device Contraindication: Treatment Not Indicated VTE Drug Contraindication: N/A - Med Ordered
[2022-10-05 16:00] VITALS: BP 119/70; PULSE 92; RESP 16; TEMP 36.4; O2SAT 97
[2022-10-05 17:31] LABS: Sodium 142 mmol/L (135-145)
--- NOTE | 2022-10-05 18:56 | MHC.SLORD ---
Speech Language Pathology Order Status: Attempted to see patient at lunch to assess toleration of diet, patient was deeply asleep, unable to rouse for meal. COLOR ADVISER will continue to follow.
[2022-10-05] MEDS: Loratadine 10 MG TABLET PO (19:16)
[2022-10-05] MEDS: cloZAPine 100 MG TABLET 200 MG PO (19:16)
[2022-10-05 19:29] VITALS: BP 133/60; PULSE 84; RESP 18; TEMP 36.8; O2SAT 99
[2022-10-06] MEDS: Dextrose 5 % 1,000 ML 50 ML IVCONT (02:56)
[2022-10-06 03:24] VITALS: BP 134/75; PULSE 88; RESP 18; TEMP 36.5; O2SAT 99
[2022-10-06] MEDS: Omeprazole 20 MG CAPSULE.DR PO (06:17)
[2022-10-06 06:52] LABS: Neut%MD 51.8 %; Neutrophils Absolute Auto 1.2 x10*3/uL (2.0-8.3); WBCANC 2.2 X10*3/uL
[2022-10-06 07:09] LABS: Anion Gap 11 (12-20); Blood Urea Nitrogen 9 mg/dL (9-16); Calcium 6.2 mg/dL (8.4-10.2); Carbon Dioxide 20 mmol/L (22-29); Chloride 116 mmol/L (96-108); Creatinine Clr Calc Pharmacy 48.6; Estimated Glomerular Filt Rate > 60; Glucose Random 94 mg/dL (60-115); Potassium 3.6 mmol/L (3.3-5.1); Sodium 143 mmol/L (135-145)
[2022-10-06 07:35] VITALS: BP 110/64; PULSE 86; RESP 18; TEMP 36.5; O2SAT 97
[2022-10-06 08:19] LABS: Magnesium 1.8 mg/dL (1.6-2.6); Phosphorus 2.2 mg/dL (2.7-4.5)
[2022-10-06] MEDS: Acyclovir 200 MG CAPSULE 400 MG PO (08:22)
[2022-10-06] MEDS: Ferrous Sulfate 324 MG TABLET.DR PO (08:22)
[2022-10-06] MEDS: Aspirin Enteric Coated 81 MG TABLET.DR PO (08:22)
[2022-10-06] MEDS: Potassium Chloride Packet 20 MEQ PACKET PO (08:22)
[2022-10-06] MEDS: Cholecalciferol (Vitamin D3) 25 MCG TABLET 50 MCG PO (08:22)
[2022-10-06] MEDS: Sodium,Potassium Phosphates POWD.PACK 1 PACKET PO ×4 (08:22→21:08)
[2022-10-06] MEDS: allopurinoL 100 MG TABLET PO (08:22)
[2022-10-06] MEDS: Metoprolol Tartrate 25 MG TABLET PO ×2 (08:22→21:08)
[2022-10-06] MEDS: Magnesium Oxide 400 MG TABLET PO ×2 (08:22→17:33)
[2022-10-06] MEDS: Azithromycin 500 MG in 0.9 % Sodium Chloride 250 ML 125 MG IV (08:23)
[2022-10-06] MEDS: cefTRIAXone sodium 1 GM in 0.9 % Sodium Chloride 50 ML IV (10:21)
--- NOTE | 2022-10-06 10:37 | MHC.SL.SWA ---
Speech Pathologist Impression: Risk of aspiration, mild oral phase dysphagia Risk of Aspiration Due to: Weak Cough Dysphasia Diet Status: No change Liquid Consistency and Strategies for Safe Swallow: Liquid Intake Recommendation: Thin Liquid Intake Strategies: Unrestricted Solid Food Consistency: Dietary Recommendations: Chopped/Advanced (NDD3) Additional Modifications to Solid Foods: Pt tolerating chopped diet. Further ST intervention no longer warranted at this time. Please re-refer with any changes or if COMPLEX CARE NURSE can be of further assistance. Oral Medication Intake: Whole with Puree Please contact the pharmacy regarding appropriate crushable or liquid drug formulations that are available whenever modified delivery is recommended. Compensatory Strategies and Precautions to be Taken for Safe Swallow: Sitting Upright (90 deg) Small Bites and Sips Rate of Ingestion Change Avoid Specific Foods Supervision While Eating and Drinking for Safe Swallow: Intermittent Supervision Foods to Avoid: Difficult to chew solids. Swallowing Recommended Treatments: Compens. Strategy Educat. Recommendation for Speech: D/C Cashier Receptionist Clinican/Clinical Fellow: No Supervisory Statement: I have reviewed and agree with the student/clinical fellow's documentation: N/A Speech Language Pathologist: Tonya Moore M.A., [facility]-COMPLEX CARE NURSE
[2022-10-06] MEDS: Calcium Gluconate/NaCl,Iso-Osm 1 GM/50 ML PLAST..BAG IV (11:07)
--- NOTE | 2022-10-06 11:20 | PM.PNNEP ---
Subjective Subjective Date of Service: 10/06/22 Interval history: seen and examined d/w medical attending no complaints Physical Exam Vital Signs: Vital Signs: Last Vital Signs Temp 97.7 F 10/06/22 07:35 Pulse 86 10/06/22 07:35 Resp 18 10/06/22 07:35 BP 110/64 10/06/22 07:35 Pulse Ox 97 10/06/22 07:35 O2 Del Method Room Air 10/06/22 07:35 BMI result Body Mass Index 30.2 Const: General: no acute distress HEENT: Head: Yes normocephalic and Yes atraumatic Neck: Neck: Yes supple Resp: Auscultation: diminished lung sounds Cardio: Heart sounds: S1 normal heart sound present and S2 normal heart sound present GI: Palpation (GI): Soft to palpation and nontender Extrem: General: No edema Objective Data Labs 10/02/22 04:26 10/06/22 06:00 Labs: Laboratory Results - last 24 hr 10/05/22 10/05/22 10/06/22 13:30 17:02 06:00 Absolute Neuts (auto) Sodium 142 143 Potassium 3.6 Chloride 116 H Carbon Dioxide 20 L Anion Gap 11 L BUN 9 Creatinine 0.91 Estim Creat Clear Calc 48.6 Estimated GFR > 60 Random Glucose 94 Calcium 6.2 L Phosphorus 2.2 L Magnesium 1.8 Nasal Screen MRSA (PCR) NEGATIVE Nasal S. aureus Screen POSITIVE A Nasal MRSA/S.aureus Interp SEE NOTE 10/06/22 06:00 Absolute Neuts (auto) 1.2 L Sodium Potassium Chloride Carbon Dioxide Anion Gap BUN Creatinine Estim Creat Clear Calc Estimated GFR Random Glucose Calcium Phosphorus Magnesium Nasal Screen MRSA (PCR) Nasal S. aureus Screen Nasal MRSA/S.aureus Interp Microbiology Microbiology Results: Microbiology 10/05/22 12:55 Urine clean catch - Clean Catch Midstream Urine Culture - Final No growth. 09/29/22 12:15 Blood - Venous Blood Culture - Final No growth after 5 days. 09/29/22 12:10 Blood - Venous Blood Culture - Final No growth after 5 days. Procedures Date of Service Date of Service: 10/06/22 Assessment & Plan Assessment and plan (1) Hypocalcemia: Status: Acute (2) Hypomagnesemia: Status: Acute (3) Hypokalemia: Status: Acute Plan ELEONORA resolved underlying multiple myeloma low magnesium can cause hypocalcemia due to PTH resistance and low potassium as well low albumin (corrected calcium close to 8) REC replace calcium, phosphorus, magnesium follow electrolytes Time Spent With Patient Time: Total time managing care of this patient today ____ minutes. Progress Note: Quality Stroke Does the patient have a stroke diagnosis?: No
--- NOTE | 2022-10-06 15:05 | MHC.CM.PN ---
PATIENT CURRENTLY TOLERATING PO. PLAN IS 1-2 MORE DAYS HERE AND DC HOME TO 05/02 [facility]
[2022-10-06] MEDS: Enoxaparin Sodium 30 MG/0.3 ML SYRINGE SUBCUT (15:55)
[2022-10-06] MEDS: 0.9 % Sodium Chloride Flush 3 ML SYRINGE IVFLUSH (15:56)
[2022-10-06 16:23] VITALS: BP 142/83; PULSE 87; RESP 18; TEMP 35.9; O2SAT 98
--- NOTE | 2022-10-06 16:27 | HO.PM.IMPN ---
Subjective Subjective Date of Service: 10/07/22 Interval History: f/u on pna, confusion Review of Systems More alert today, no sob, seems more awake ,easily oriented . Physical Exam Vital Signs: Vital Signs: Last Vital Signs Temp 96.7 F L 10/06/22 16:23 Pulse 87 10/06/22 16:23 Resp 18 10/06/22 16:23 BP 142/83 H 10/06/22 16:23 Pulse Ox 98 10/06/22 16:23 O2 Del Method Room Air 10/06/22 16:23 BMI result Body Mass Index 30.2 General: AO X 2, no acute distress Resp:? clear, rhonchi in throat CVS: S1,S2,RRR GI: +BS, NT, no distention Skin: No rash Neuro:? motor grossly intact Psych: appropriate affect Objective Data Active Medications Acetaminophen (Acetaminophen 325 Mg Tablet) 650 mg PO Q6H PRN PRN Reason: Pain, Mild (Pain Scale 1-3) Last Admin: 10/02/22 20:05 Dose: 650 mg Documented By: BENNY Acyclovir (Acyclovir 200 Mg Capsule) 400 mg PO DAILY [facility] Last Admin: 10/06/22 08:22 Dose: 400 mg Documented By: LAUREN Allopurinol (Allopurinol 100 Mg Tablet) 100 mg PO DAILY [facility] Last Admin: 10/06/22 08:22 Dose: 100 mg Documented By: LAUREN Aspirin (Aspirin Enteric Coated 81 Mg Tablet.) 81 mg PO DAILY [facility] Last Admin: 10/06/22 08:22 Dose: 81 mg Documented By: LAUREN Calcium Carbonate (Calcium Carbonate 500 Mg Tablet) 500 mg PO BID [facility] Last Admin: 10/06/22 08:22 Dose: 500 mg Documented By: LAUREN Clozapine (Clozapine 100 Mg Tablet) 200 mg PO BEDTIME [facility] Last Admin: 10/05/22 19:16 Dose: 200 mg Documented By: BANDAR Enoxaparin Sodium (Enoxaparin Sodium 30 Mg/0.3 Ml Syringe) 30 mg SUBCUT Q24H [facility] Last Admin: 10/06/22 15:55 Dose: 30 mg Documented By: LAUREN Ferrous Sulfate (Ferrous Sulfate 324 Mg Tablet.) 324 mg PO DAILY [facility] Last Admin: 10/06/22 08:22 Dose: 324 mg Documented By: LAUREN Azithromycin 500 mg/ Sodium (Chloride) 250 mls @ 125 mls/hr IV Q24H [facility] Last Infusion: 10/06/22 10:26 Dose: 0 mls/hr Documented By: LAUREN Ceftriaxone Sodium 1 gm/ (Sodium Chloride) 50 mls @ 100 mls/hr IV Q24H [facility] Last Infusion: 10/06/22 11:08 Dose: 0 mls/hr Documented By: LAUREN Levalbuterol HCl (Levalbuterol Hcl 1.25 Mg/0.5 Ml Vial.Neb) 1.25 mg INHALE RQ4H WHILE AWAKE PRN PRN Reason: Shortness of Breath/Wheezing Last Admin: 10/05/22 14:43 Dose: 1.25 mg Documented By: MAHNAZ Loperamide HCl (Loperamide Hcl 2 Mg Capsule) 2 mg PO DAILY PRN PRN Reason: Diarrhea Last Admin: 10/03/22 17:46 Dose: 2 mg Documented By: MARCUS Loratadine (Loratadine 10 Mg Tablet) 10 mg PO BEDTIME [facility] Last Admin: 10/05/22 19:16 Dose: 10 mg Documented By: BANDAR [facility] ([facility] 400 Mg [facility]t) [facility] Last Admin: 10/06/22 08:22 Dose: 400 mg Documented By: LAUREN Metoclopramide HCl (Metoclopramide Hcl 10 Mg/2 Ml Vial) 5 mg IVPUSH Q6H PRN PRN Reason: Nausea Last Admin: 10/03/22 09:59 Dose: 5 mg Documented By: TOMI Metoprolol Tartrate (Metoprolol Tartrate 25 Mg Tablet) 25 mg PO BID [facility]; Protocol Last Admin: 10/06/22 08:22 Dose: 25 mg Documented By: LAUREN Omeprazole (Omeprazole 20 Mg Capsule.) 20 mg PO DAILY@0630 [facility] Last Admin: 10/06/22 06:17 Dose: 20 mg Documented By: BANDAR Pharmacy Consult (Consult Rx Perform Med Rec) 1 each MISCELLANE ONCE PRN PRN Reason: Consult order Potassium Phos/Sodium Phos (Sodium,Potassium Phosphates Powd.Pack) 1 packet PO QID [facility] Last Admin: 10/06/22 15:57 Dose: 1 packet Documented By: HO.WILLISK Senna (Sennosides 8.6 Mg Tablet) 17.2 mg PO DAILY PRN PRN Reason: Constipation Sodium Chloride (0.9 % Sodium Chloride Flush 3 Ml Syringe) 3 ml IVFLUSH QSHIFT [facility] Last Admin: 10/06/22 15:56 Dose: 3 ml Documented By: LAUREN Vitamin D (Cholecalciferol (Vitamin D3) 25 Mcg Tablet) 50 mcg PO DAILY [facility] Last Admin: 10/06/22 08:22 Dose: 50 mcg Documented By: LAUREN Labs 10/02/22 04:26 10/06/22 06:00 Labs: Laboratory Results - last 24 hr 10/06/22 10/06/22 06:00 06:00 Absolute Neuts (auto) 1.2 L Anion Gap 11 L Estim Creat Clear Calc 48.6 Estimated GFR > 60 Random Glucose 94 Calcium 6.2 L Phosphorus 2.2 L Magnesium 1.8 Microbiology Microbiology Results: Microbiology 10/05/22 Unknown Urine Culture - Final Urine Catheterized - Straight Catheter 10/05/22 12:55 Urine Culture - Final Urine clean catch - Clean Catch Midstream No growth. Assessment and Plan (1) Acute kidney injury superimposed on CKD: Status: Acute (2) Pneumonia: Status: Acute (3) Metabolic encephalopathy: Status: Acute Plan 77-year-old female with a PMH significant for dementia, multiple myeloma, schizoaffective disorder, HTN, asthma, and gout who presents to the ED with?with worsening cough and confusion. Pt will be admitted to the hospital for treatment evaluation of sepsis secondary to community-acquired pneumonia. severe Sepsis POA, d/t Community-acquired pneumonia, sepsis resolved Clinically repsonding to treament IV abx: ceftriaxone, azithromycin D5, change to oral Ceftin for toal of 10 day Xopenex PRN O2 PRN Acute toxic metabolic encephalopathy d/t PNA and underlying conginitive impairment Patient's granddaughter states she has been more confused than usual , She is nearly back to baseline according to chelsie at bedside continue to monitor clinically Acute lactic acidosis Patient's lactic acid initially 3.4 went down to 3 the ELEONORA on CKD stage 3, Creatinine 10/03 1.12, ELEONORA resolved. Hypernatremia Na 146 , likely from from free water limited intake, push oral water and repeat lab if not improving then IV water. added d5w moniter sodium levels Pancytopenia Likely secondary to multiple myeloma Seems stable, near baseline Follow CBC, hold transfusion unless hgb < 7 Multiple Myeloma Continue Revlimid, filgrastim HypOkalemia, replace with PO and IV K, check mag hypocalcemia:mild when adjusted for albumin serum calcium is 7.6. added vitamin D levels DNR/DNI DVT Prophylaxis: Lovenox Need for inpatient: sespsis, PNA, metaboli encephalopathy, needs IV Abx, electrolytes replacement, hypernatremia, Time Spent With Patient Time: Total time managing care of this patient today ____ minutes. Quality Stroke Does the patient have a stroke diagnosis?: No VTE Prior VTE?: No VTE Risk Level:: Medical - moderate - high VTE Device Contraindication: Treatment Not Indicated VTE Drug Contraindication: N/A - Med Ordered
[2022-10-06 20:00] VITALS: BP 134/77; PULSE 94; RESP 18; TEMP 36.1; O2SAT 97
[2022-10-06] MEDS: Loratadine 10 MG TABLET PO (21:08)
[2022-10-06] MEDS: cloZAPine 100 MG TABLET 200 MG PO (21:08)
[2022-10-07] MEDS: 0.9 % Sodium Chloride Flush 3 ML SYRINGE IVFLUSH ×4 (00:13→21:09)
[2022-10-07 03:31] VITALS: BP 127/70; PULSE 79; RESP 18; TEMP 36.1; O2SAT 100
[2022-10-07] MEDS: Omeprazole 20 MG CAPSULE.DR PO (06:13)
[2022-10-07 07:24] LABS: Anion Gap 11 (12-20); Blood Urea Nitrogen 7 mg/dL (9-16); Calcium 6.7 mg/dL (8.4-10.2); Carbon Dioxide 23 mmol/L (22-29); Chloride 115 mmol/L (96-108); Creatinine Clr Calc Pharmacy 62.3; Estimated Glomerular Filt Rate > 60; Glucose Random 88 mg/dL (60-115); Potassium 3.6 mmol/L (3.3-5.1); Sodium 145 mmol/L (135-145)
[2022-10-07 07:45] VITALS: BP 156/81; PULSE 83; RESP 18; TEMP 36.6; O2SAT 98
[2022-10-07 08:03] LABS: Hematocrit 23.1 % (37.0-47.0); Hemoglobin 7.3 g/dl (12.0-16.0); Mean Corpuscular HGB Conc 31.6 g/dl (31.0-35.0); Mean Corpuscular Hemoglobin 29.1 pg (27.0-33.0); Platelet Count 158 X10*3/uL (160-400); Red Blood Count 2.51 X10*6/uL (4.20-5.50); Red Cell Distribution Width 16.8 % (11.0-16.0)
[2022-10-07 08:06] LABS: White Blood Count 2.2 X10*3/uL (4.8-10.8)
[2022-10-07] MEDS: Magnesium Sulfate/D5W 1 GM/100 ML PIGGYBACK IV (08:10)
[2022-10-07] MEDS: allopurinoL 100 MG TABLET PO (08:10)
[2022-10-07] MEDS: Cholecalciferol (Vitamin D3) 25 MCG TABLET 50 MCG PO (08:10)
[2022-10-07] MEDS: Ferrous Sulfate 324 MG TABLET.DR PO (08:10)
[2022-10-07] MEDS: Sodium,Potassium Phosphates POWD.PACK 1 PACKET PO ×4 (08:10→21:08)
[2022-10-07] MEDS: Aspirin Enteric Coated 81 MG TABLET.DR PO (08:10)
[2022-10-07] MEDS: Acyclovir 200 MG CAPSULE 400 MG PO (08:10)
[2022-10-07] MEDS: Magnesium Oxide 400 MG TABLET PO ×2 (08:10→16:46)
[2022-10-07] MEDS: Metoprolol Tartrate 25 MG TABLET PO ×2 (08:11→21:08)
[2022-10-07] MEDS: Azithromycin 500 MG in 0.9 % Sodium Chloride 250 ML 125 MG IV (09:37)
--- NOTE | 2022-10-07 10:03 | PC.NURSE ---
Staff fed patient a pudding, cup of peaches, 2 cranberry juices. Pt refused eggs and agustin
[2022-10-07] MEDS: cefTRIAXone sodium 1 GM in 0.9 % Sodium Chloride 50 ML IV (12:09)
[2022-10-07] MEDS: Potassium Chloride Packet 20 MEQ PACKET PO (12:41)
[2022-10-07] MEDS: Enoxaparin Sodium 30 MG/0.3 ML SYRINGE SUBCUT (13:59)
[2022-10-07 15:54] VITALS: BP 136/64; PULSE 84; RESP 22; TEMP 36.5; O2SAT 99
--- NOTE | 2022-10-07 16:27 | HO.PM.IMPN ---
Subjective Subjective Date of Service: 10/08/22 Interval History: f/u on pna, confusion Review of Systems seems menatl status near [facility] as per family at bedside. encouraged for po intake. Physical Exam Vital Signs: Vital Signs: Last Vital Signs Temp 97.7 F 10/07/22 15:54 Pulse 84 10/07/22 15:54 Resp 22 H 10/07/22 15:54 BP 136/64 10/07/22 15:54 Pulse Ox 99 10/07/22 15:54 O2 Del Method Room Air 10/07/22 15:54 BMI result Body Mass Index 30.2 General: AO X 2, no acute distress Resp:? clear, rhonchi in throat CVS: S1,S2,RRR GI: +BS, NT, no distention Skin: No rash Neuro:? motor grossly intact Psych: appropriate affect Objective Data Active Medications Acetaminophen (Acetaminophen 325 Mg Tablet) 650 mg PO Q6H PRN PRN Reason: Pain, Mild (Pain Scale 1-3) Last Admin: 10/02/22 20:05 Dose: 650 mg Documented By: BENNY Acyclovir (Acyclovir 200 Mg Capsule) 400 mg PO DAILY [facility] Last Admin: 10/07/22 08:10 Dose: 400 mg Documented By: COTEMA Allopurinol (Allopurinol 100 Mg Tablet) 100 mg PO DAILY [facility] Last Admin: 10/07/22 08:10 Dose: 100 mg Documented By: COTEMA Aspirin (Aspirin Enteric Coated 81 Mg Tablet.) 81 mg PO DAILY [facility] Last Admin: 10/07/22 08:10 Dose: 81 mg Documented By: COTEMA Calcium Carbonate (Calcium Carbonate 500 Mg Tablet) 500 mg PO BID [facility] Last Admin: 10/07/22 08:11 Dose: 500 mg Documented By: COTEMA Clozapine (Clozapine 100 Mg Tablet) 200 mg PO BEDTIME [facility] Last Admin: 10/06/22 21:08 Dose: 200 mg Documented By: ARIA Enoxaparin Sodium (Enoxaparin Sodium 30 Mg/0.3 Ml Syringe) 30 mg SUBCUT Q24H [facility] Last Admin: 10/07/22 13:59 Dose: 30 mg Documented By: TATE Ferrous Sulfate (Ferrous Sulfate 324 Mg Tablet.) 324 mg PO DAILY [facility] Last Admin: 10/07/22 08:10 Dose: 324 mg Documented By: COTEMA Azithromycin 500 mg/ Sodium (Chloride) 250 mls @ 125 mls/hr IV Q24H [facility] Last Infusion: 10/07/22 11:46 Dose: 0 mls/hr Documented By: TATE Ceftriaxone Sodium 1 gm/ (Sodium Chloride) 50 mls @ 100 mls/hr IV Q24H [facility] Last Infusion: 10/07/22 12:42 Dose: 0 mls/hr Documented By: TATE Levalbuterol HCl (Levalbuterol Hcl 1.25 Mg/0.5 Ml Vial.Neb) 1.25 mg INHALE RQ4H WHILE AWAKE PRN PRN Reason: Shortness of Breath/Wheezing Last Admin: 10/05/22 14:43 Dose: 1.25 mg Documented By: MAHNAZ Loperamide HCl (Loperamide Hcl 2 Mg Capsule) 2 mg PO DAILY PRN PRN Reason: Diarrhea Last Admin: 10/03/22 17:46 Dose: 2 mg Documented By: MARCUS Loratadine (Loratadine 10 Mg Tablet) 10 mg PO BEDTIME [facility] Last Admin: 10/06/22 21:08 Dose: 10 mg Documented By: ARIA Magnesium Oxide (Magnesium [facility]ide 400 Mg Tablet) [facility] Admin: 10/07/22 08:10 Dose: 400 mg Documented By: JALEELEMA Metoclopramide HCl (Metoclopramide Hcl 10 Mg/2 Ml Vial) 5 mg IVPUSH Q6H PRN PRN Reason: Nausea Last Admin: 10/03/22 09:59 Dose: 5 mg Documented By: TOMI Metoprolol Tartrate (Metoprolol Tartrate 25 Mg Tablet) 25 mg PO BID [facility]; Protocol Last Admin: 10/07/22 08:11 Dose: 25 mg Documented By: COTEMA Omeprazole (Omeprazole 20 Mg Capsule.) 20 mg PO DAILY@0630 [facility] Last Admin: 10/07/22 06:13 Dose: 20 mg Documented By: ARIA Pharmacy Consult (Consult Rx Perform Med Rec) 1 each MISCELLANE ONCE PRN PRN Reason: Consult order Potassium Phos/Sodium Phos (Sodium,Potassium Phosphates Powd.Pack) 1 packet PO QID [facility] Last Admin: 10/07/22 12:09 Dose: 1 packet Documented By: TATE Senna (Sennosides 8.6 Mg Tablet) 17.2 mg PO DAILY PRN PRN Reason: Constipation Sodium Chloride (0.9 % Sodium Chloride Flush 3 Ml Syringe) 3 ml IVFLUSH QSHIFT [facility] Last Admin: 10/07/22 08:11 Dose: 3 ml Documented By: BRUCE Vitamin D (Cholecalciferol (Vitamin D3) 25 Mcg Tablet) 50 mcg PO DAILY [facility] Last Admin: 10/07/22 08:10 Dose: 50 mcg Documented By: BRUCE Labs 10/07/22 06:30 10/07/22 06:30 Labs: Laboratory Results - last 24 hr 10/07/22 10/07/22 06:30 06:30 MCV 92.0 MCH 29.1 MCHC 31.6 RDW 16.8 H Plt Count 158 L D MPV 14.0 H Absolute Nucleated RBC 0.000 Nucleated RBC % (auto) 0.0 Anion Gap 11 L Estim Creat Clear Calc 62.3 Estimated GFR > 60 Random Glucose 88 Calcium 6.7 L D Microbiology Microbiology Results: Microbiology 10/05/22 Unknown Urine Culture - Final Urine Catheterized - Straight Catheter Assessment and Plan (1) Acute kidney injury superimposed on CKD: Status: Acute (2) Pneumonia: Status: Acute (3) Metabolic encephalopathy: Status: Acute (4) Hypokalemia: Status: Acute (5) Hypomagnesemia: Status: Acute (6) Hypocalcemia: Status: Acute Plan 77-year-old female with a PMH significant for dementia, multiple myeloma, schizoaffective disorder, HTN, asthma, and gout who presents to the ED with?with worsening cough and confusion. Pt will be admitted to the hospital for treatment evaluation of sepsis secondary to community-acquired pneumonia. severe Sepsis POA, d/t Community-acquired pneumonia, sepsis resolved Clinically repsonding to treament IV abx: ceftriaxone, azithromycin D5, change to oral Ceftin for toal of 10 day Xopenex PRN O2 PRN Acute toxic metabolic encephalopathy d/t PNA and underlying conginitive impairment Patient's granddaughter states she has been more confused than usual , She is nearly back to baseline according to chelsie at bedside continue to monitor clinically Acute lactic acidosis Patient's lactic acid initially 3.4 went down to 3 the ELEONORA on CKD stage 3, Creatinine 10/03 1.12, ELEONORA resolved. Hypernatremia Na 146 , likely from from free water limited intake, push oral water and repeat lab if not improving then IV water. added d5w moniter sodium levels Pancytopenia Likely secondary to multiple myeloma Seems stable, near baseline Follow CBC, hold transfusion unless hgb < 7 Multiple Myeloma Continue Revlimid, filgrastim HypOkalemia, replace with PO and IV K, check mag hypocalcemia:mild when adjusted for albumin serum calcium is 7.6. added vitamin D levels DNR/DNI DVT Prophylaxis: Lovenox Need for inpatient: sespsis, PNA, metaboli encephalopathy, needs IV Abx, electrolytes replacement, hypernatremia/hypophos/hypocalcemia-need nephro followup. Time Spent With Patient Time: Total time managing care of this patient today ____ minutes. Quality Stroke Does the patient have a stroke diagnosis?: No VTE Prior VTE?: No VTE Risk Level:: Medical - moderate - high VTE Device Contraindication: Treatment Not Indicated VTE Drug Contraindication: N/A - Med Ordered
[2022-10-07 20:00] VITALS: BP 141/70; PULSE 98; RESP 16; TEMP 36.1; O2SAT 99
[2022-10-07] MEDS: Loratadine 10 MG TABLET PO (21:08)
[2022-10-07] MEDS: cloZAPine 100 MG TABLET 200 MG PO (21:08)
[2022-10-08 03:49] VITALS: BP 134/70; PULSE 84; RESP 16; TEMP 35.8; O2SAT 99
[2022-10-08] MEDS: Omeprazole 20 MG CAPSULE.DR PO (05:45)
--- NOTE | 2022-10-08 06:21 | PC.NURSE ---
VSS. Pt sleeping comfortably in bed (snoring). IV antibiotics as ordered. O2 sats 99% on RA. No c/o sob/cough/pain. Bed alarm and camera on for patient safety. Call lenz within reach. Will continue to monitor.
[2022-10-08 07:35] VITALS: BP 134/69; PULSE 81; RESP 18; TEMP 36.9; O2SAT 98
[2022-10-08 09:28] LABS: Magnesium 1.9 mg/dL (1.6-2.6); Phosphorus 1.8 mg/dL (2.7-4.5)
[2022-10-08] MEDS: Sodium,Potassium Phosphates POWD.PACK 1 PACKET PO ×2 (09:57→12:13)
[2022-10-08] MEDS: Metoprolol Tartrate 25 MG TABLET PO (09:57)
[2022-10-08] MEDS: allopurinoL 100 MG TABLET PO (09:57)
[2022-10-08] MEDS: Magnesium Oxide 400 MG TABLET 800 MG PO (09:57)
[2022-10-08] MEDS: Acyclovir 200 MG CAPSULE 400 MG PO (09:57)
[2022-10-08] MEDS: Aspirin Enteric Coated 81 MG TABLET.DR PO (09:57)
[2022-10-08] MEDS: Cholecalciferol (Vitamin D3) 25 MCG TABLET 50 MCG PO (09:57)
[2022-10-08] MEDS: Azithromycin 500 MG TABLET PO (09:57)
[2022-10-08] MEDS: Ferrous Sulfate 324 MG TABLET.DR PO (09:57)
[2022-10-08] MEDS: 0.9 % Sodium Chloride Flush 3 ML SYRINGE IVFLUSH (09:58)
--- NOTE | 2022-10-08 13:01 | MHC.CM.PN ---
order for home with services. Patient has [facility] for coverage. Reached out to [facility] for in-home services and requested they attempt to obtain approval of services on Sunday10/09/22 given [facility] is closed today and unavailable for authorization.
--- NOTE | 2022-10-08 13:04 | MHC.CM.PN ---
Called grand daughter Radha RE transport home; Radha has requested a 3pm potato picker time. This RNCM messaged nurse notifying her about 3pm potato picker time for patient.
--- NOTE | 2022-10-08 13:11 | P.F2F_ITS ---
Service Date Service Date: 10/08/22 Encounter Date of encounter: 10/08/22 Encounter: Sepsis, pneumonia, multiple electrolytic abnormalities, Reasons for Services Signs and symptoms assessed: Shortness of breath, fever, monitor electrolytes Reason for group home: medication management, medication treatment and teach disease management MD Overseeing Care: Gladys Orellana Homebound: Leaving the home is medically contraindicated at this time without the asist of a device and/or another person due th the listed conditions above and below. Reason homebound: weakness related to hospital stay Homebound supporting statement: Patient generalized weak has multiple comorbidities including electrolyte abnormalities as well as pneumonia, generalized weak post hospitalization stay- needs help to go to appointments, blood draws. Certification: Based on the above findings, I certify that this patient is confined to the home and needs intermittent group home care, physical therapy and/or speech therapy, or continues to need occupational therapy. The patient is under my care, and I have initiated the establishment of the plan of care. The patient will be followed by a physician who will periodically review the plan of care. Time Spent With Patient Time: Total time managing care of this patient today ____ minutes.
--- NOTE | 2022-10-08 13:14 | PM.DS ---
DS: Providers Provider Date of Service: 10/08/22 Date of admission: 09/29/22 14:52 Date of discharge: 10/08/22 Primary care physician: Gladys Orellana MD Consults: 10/04/22 08:14 Consult to Infectious Diseases [place]ine [place] [facility] [facility] [place] Reason for consultation: pneumonia/multiple myeloma Has provider been notified: No 10/04/22 14:24 Consult to Nephrology Routine Consulting Provider: Dean Byers Reason for consultation: multiple electolytic abnormalities Has provider been notified: No DS: Diagnosis Discharge Diagnosis (1) Acute kidney injury superimposed on CKD: Status: Acute (2) Pneumonia: Status: Acute (3) Metabolic encephalopathy: Status: Acute (4) Hypokalemia: Status: Acute (5) Hypomagnesemia: Status: Acute (6) Hypocalcemia: Status: Acute DS: Summary Hospital Course Hospital Course: 77-year-old female with a PMH significant for dementia, multiple myeloma, schizoaffective disorder, HTN, asthma, and gout who presents to the ED with?with worsening cough and confusion.? Patient is Serbian-speaking only and has baseline dementia and currently encephalopathic.? HPI obtained from granddaughter who was at bedside and is patient's healthcare proxy.? Patient apparently has been experiencing symptoms for the past 3 weeks.? Patient has had a cough productive of greenish sputum and is generally more fatigued. Granddaughter states that patient had no other complaints. Was not complaining of shortness of breath, difficulty breathing.? Pt seemed to be getting better until yesterday when granddaughter noted patient had increased fatigue, cough to the point where she vomited once, and seemed more confused than before.? Patient could not help granddaughter get her out of bed, could not follow commands and was not responding correctly to questions.? Patient normally is alert and oriented only to herself a capable of following basic commands.? Patient seemed unsteady on her feet.? Patient was brought in today due to her worsening condition. In the ED patient was febrile to 101.9, tachycardic up to 111, tachypneic up to 23, slightly hypertensive at 98/41, and satting at 95% O2 on RA. Labs were significant for leukopenia of 1.2, H&H 9.0/28.8, creatinine of 1.98, lactic acid of 3.4.? Patient tested negative for influenza type a and B, RSV, COVID. CXR showed patchy opacity at the left lung base retrocardiac area, likely infiltrate with increased interstitial markings in both lungs. Pt was treated with azithromycin and ceftriaxone, DuoNebs, and sepsis bundle IVF crystalloids at 30 milligrams/kilogram. Pt will be admitted to the hospital for treatment evaluation of sepsis secondary to community-acquired pneumonia. Hospital course: Patient was admitted due to severe sepsis secondary to pneumonia: Seems to be improving with IV antibiotics, blood cultures sent: Patient seems to be improved significantly, no shortness of breath or cough, no fever, blood culture negative: switched to p.o. antibiotics upon discharge. Hold Bactrim until on p.o. antibiotic for pneumonia. Repeat chest imaging in 3-4 weeks to see resolution of pneumonia outpatient. Patient also has toxic metabolic encephalopathy multifactorial: which seems to be improved significantly seems to be near her baseline as per family. Hypernatremia and ELEONORA was possibly related to dehydration: Seems to be improved significantly with hydration. She has multiple electrolytic abnormalities-seems to be improving, patient to continue calcium, magnesium, phosphate supplements: Monitor renal function and electrolytes outpatient, and consider follow-up with Nephrology outpatient. Patient also has pancytopenia which was thought to be related to multiple myeloma: Says pancytopenia slowly improving, monitor CBC out patiently and follow-up with Hematology outpatient. Discussed with PT in detail: Patient has 247 home service, in addition added VNA. Plan: Complete course of antibiotics Continue electrolytic replacements as ordered, limited supply of electrolytic the replacement given, monitor BMP, magnesium, phosphorous out patiently with PCP, consider outpatient Nephro evaluation if needed. Patient is a picky eater, strongly advised and encouraged for p.o. intake. Monitor CBC for pancytopenia( history of multiple myeloma), follow-up with Dr. Veloz outpatient. Above management discussed the patient patient and her granddaughter in detail length, granddaughter understand and in agreement of the plan-time spent 50 minute. Time Spent with Patient Time attestation: Total time managing care of this patient today ____ minutes. Discharge coordination time: Greater than 30 minutes Quality: Safe Use of Opioids Does Pt have an Active Cancer Diagnosis on the Problem List?: No Quality: Stroke Does the patient have a stroke diagnosis?: No Physical Exam Vital Signs: Vital Signs: Last Vital Signs Temp 98.4 F 10/08/22 07:35 Pulse 81 10/08/22 07:35 Resp 18 10/08/22 07:35 BP 134/69 10/08/22 07:35 Pulse Ox 98 10/08/22 07:35 O2 Del Method Room Air 10/08/22 07:35 BMI result Body Mass Index 30.2 General: AO X 2, no acute distress Resp:? clear, rhonchi in throat CVS: S1,S2,RRR GI: +BS, NT, no distention Skin: No rash Neuro:? motor grossly intact Psych: appropriate affect DS: Data Data Completed and Pending Labs on day of discharge: Laboratory Results - last 24 hr 10/08/22 08:59 Phosphorus 1.8 L Magnesium 1.9 Imaging Chest x-ray: Radiologist's impression: ITS Impressions Chest X-Ray 09/29/22 12:54 IMPRESSION: 1. Patchy opacity left lung base retrocardiac area likely infiltrate. 2. Increase interstitial markings in both lungs. 3. Hypoexpanded lungs with moderate spondylosis of dorsal spine. Discharge Plan Discharge Anticipated Discharge Date/Time: 10/08/22 12:10 Patient Disposition: Home Health Service Discharge Diagnosis: Pancytopenia, Eleonora, pneumonia, sepsis, electrolytic abnormalities Referrals: Gladys Orellana MD [Primary Care Provider] - 1 Week Discharge Medications: New potassium, sodium phosphates [Phos-NaK] 280-160-250 mg Powder In Packet 1 packet PO QID Qty: 20 0RF magnesium oxide 400 mg (241.3 mg magnesium) Tablet 800 mg PO BIDPC Qty: 20 0RF calcium carbonate [Tums] 300 mg (750 mg) tablet,chewable 300 mg PO BID Qty: 20 0RF cefuroxime axetil 500 mg tablet 500 mg PO BID Qty: 6 0RF azithromycin 500 mg tablet 500 mg PO DAILY 3 Days Qty: 3 0RF Continued ferrous sulfate 324 mg (65 mg iron) tablet,delayed release (DR/EC) 324 mg PO DAILY Qty: 90 1RF cetirizine 10 mg tablet 10 mg PO BEDTIME Qty: 90 1RF allopurinol 100 mg tablet 100 mg PO DAILY Qty: 90 1RF aspirin 81 mg tablet,delayed release (DR/EC) 81 mg PO DAILY Qty: 90 1RF metoprolol tartrate 25 mg tablet 25 mg PO BID Qty: 180 1RF albuterol sulfate 90 mcg/actuation HFA aerosol inhaler 2 puff PO Q4H PRN (Reason: Dyspnea) clozapine 100 mg tablet 200 mg PO BEDTIME loperamide [Anti-Diarrheal (loperamide)] 2 mg capsule 2 mg PO DAILY PRN (Reason: Diarrhea) sennosides [senna] 8.6 mg tablet 2 tab PO DAILY PRN (Reason: Constipation) lenalidomide [Revlimid] 15 mg Capsule 15 mg PO DAILY Qty: 21 6RF Rx Instructions: swallow whole with glass of water; do not open, crush, chew , break, or dissolve Authorization number: [id number] cholecalciferol (vitamin D3) 50 mcg (2,000 unit) capsule 50 mcg PO DAILY Qty: 30 5RF calcium carbonate [Calcium 600] 600 mg calcium (1,500 mg) Tablet 600 mg PO BID Qty: 60 0RF acyclovir 400 mg Tablet 400 mg PO DAILY Qty: 90 6RF Zarxio 300 mcg/0.5 mL syringe 300 mcg SUBCUT TUFR omeprazole 20 mg capsule,delayed release(DR/EC) 20 mg PO DAILY@0630 lorazepam [Ativan] 1 mg Tablet 1 mg PO DAILY PRN (Reason: Anxiety) ondansetron 4 mg Tablet,Disintegrating 4 mg PO Q4H PRN (Reason: Nausea And Vomiting) cyclosporine [Restasis] 0.05 % Dropperette 1 drp OPHTHALMIC (EYE) DAILY denosumab 120 mg/1.7 mL (70 mg/mL) Solution 120 mg SUBCUT Q8W Held sulfamethoxazole-trimethoprim [Bactrim DS] 800-160 mg tablet 1 tab PO MOWEFR Hold Instructions: Resume on 10/11/22. hold until on antibiotics for pneumonia) Rx Instructions: Take 1 tablet p.o. B i.d. Sunday. Discharge Orders: Discharge Order (Routine); Ordered 10/08/22 Ordered By: Alexa Hanley Diet: Advance to usual diet Activity on Discharge: As tolerated Stand Alone Forms: Patient Portal Discharge page Other Ambulatory Orders: Basic Metabolic Panel (Routine) Timeframe: 1 Week Facility: [facility] - Location: Laboratory Ordered By: Alexa Hanley Complete Blood Count no Diff (Routine) Timeframe: 1 Week Facility: [facility] - Location: Laboratory Ordered By: Alexa Hanley Magnesium (Routine) Timeframe: 1 Week Facility: [facility] - Location: Laboratory Ordered By: Alexa Hanley Phosphorus (Routine) Timeframe: 1 Week Facility: [facility] - Location: Laboratory Ordered By: Alexa Hanley Care Plan Goals: Patient was admitted due to severe sepsis secondary to pneumonia: Seems to be improving with IV antibiotics, switched to p.o. antibiotics upon discharge. Hold Bactrim until on p.o. antibiotic for pneumonia. Repeat chest imaging in 3-4 weeks to see resolution of pneumonia outpatient. Patient also has toxic metabolic encephalopathy which seems to be improved significantly seems to be near her baseline as per family. Hypernatremia and ELEONORA was possibly related to dehydration: Seems to be improved significantly with hydration. She has multiple electrolytic abnormalities-seems to be improving, patient to continue calcium, magnesium, phosphate supplements: Monitor renal function and electrolytes outpatient, and consider follow-up with Nephrology outpatient. Patient also has pancytopenia which was thought to be related to multiple myeloma: Says pancytopenia slowly improving, monitor CBC out patiently and follow-up with Hematology outpatient. Health Concerns: As above. Plan of Treatment: As above. Assessment: As above.
[2022-10-11 04:09] LABS: Legionella Ag Urine Not Detected (Not Detected)
[2022-10-11 11:02] LABS: Calcium (PTHI) 6.2 mg/dL (8.6-10.4); PTHI 291 pg/mL (16-77)
[2022-10-12 00:38] LABS: Strep Pneumo Ag urine Not Detected (Not Detected)
== END 2022-10-08 16:17 | disposition home health service (06) | DRG 871 ==
LOC: HO.ED 13:46 → HO.EDOVER 15:07 → HO.S3 15:46
PROVIDERS: Internal Medicine; Admitting Provider Student in an Organized Health Care Education/Training Program; Emergency Provider Emergency Medicine; PCP Internal Medicine; Visit Provider Internal Medicine
DX: A41.9 Sepsis, unspecified organism (principal); G92.8 Other toxic encephalopathy; J18.9 Pneumonia, unspecified organism; N17.9 Acute kidney failure, unspecified; E87.21 Acute metabolic acidosis; C90.00 Multiple myeloma not having achieved remission; D61.818 Other pancytopenia; J44.0 Chronic obstructive pulmonary disease with (acute) lower respiratory infection; E87.0 Hyperosmolality and hypernatremia; Z66 Do not resuscitate; E78.5 Hyperlipidemia, unspecified; R65.20 Severe sepsis without septic shock; E87.6 Hypokalemia; I12.9 Hypertensive chronic kidney disease with stage 1 through stage 4 chronic kidney disease, or unspecified chronic kidney disease; E83.51 Hypocalcemia; F03.90 Unspecified dementia, unspecified severity, without behavioral disturbance, psychotic disturbance, mood disturbance, and anxiety; N18.30 Chronic kidney disease, stage 3 unspecified; F20.9 Schizophrenia, unspecified; Z20.822 Contact with and (suspected) exposure to COVID-19; Z87.891 Personal history of nicotine dependence; Z79.82 Long term (current) use of aspirin; Z79.899 Other long term (current) drug therapy
CPT/HCPCS: 0241U; 36415; 71045; 80048; 82040; 82247; 82306; 83605; 83735; 83880; 83970; 84100; 84295; 85007; 85027; 85048; 85610; 87040; 87086; 87449; 87640; 87641; 87899; 92526; 92610; 93005; 94640; 97162; 99285; J0456; J0611; J0696; J1650; J2765; J3475

== ENCOUNTER 2022-10-13 05:38 | Outpatient (REF) | payer OTHER, SELFPAY ==
[2022-10-13 10:51] LABS: Hematocrit 22.9 % (37.0-47.0); Hemoglobin 7.1 g/dl (12.0-16.0); Mean Corpuscular Hemoglobin 29.2 pg (27.0-33.0); Mean Corpuscular Volume 94.2 fL (80.0-98.0); Platelet Count 241 X10*3/uL (160-400); Red Blood Count 2.43 X10*6/uL (4.20-5.50); Red Cell Distribution Width 17.5 % (11.0-16.0); White Blood Count 2.7 X10*3/uL (4.8-10.8)
[2022-10-13 11:13] LABS: Anion Gap 11 (12-20); Blood Urea Nitrogen 16 mg/dL (9-16); Calcium 8.7 mg/dL (8.4-10.2); Carbon Dioxide 30 mmol/L (22-29); Chloride 105 mmol/L (96-108); Estimated Glomerular Filt Rate 48; Glucose Random 88 mg/dL (60-115); Magnesium 1.9 mg/dL (1.6-2.6); Phosphorus 3.7 mg/dL (2.7-4.5); Potassium 4.2 mmol/L (3.3-5.1); Sodium 142 mmol/L (135-145)
== END 2022-10-13 05:39 | disposition home or self-care (01) ==
LOC: HO.LHD 05:38
PROVIDERS: Absent Provider Internal Medicine Medical Oncology; Visit Provider Internal Medicine
DX: E87.6 Hypokalemia (principal); E83.42 Hypomagnesemia; E83.51 Hypocalcemia; E83.39 Other disorders of phosphorus metabolism; C90.00 Multiple myeloma not having achieved remission
CPT/HCPCS: 36415; 80048; 83735; 84100; 85027

== ENCOUNTER 2022-10-19 05:53 | Outpatient (REF) | payer OTHER, SELFPAY | END 2022-10-19 05:54 | disposition home or self-care (01) | LOC: HO.LHD 05:53 | PROVIDERS: Visit Provider Internal Medicine Medical Oncology | DX: Z13.89 Encounter for screening for other disorder (principal) ==

== ENCOUNTER 2022-10-20 14:09 | Outpatient (REF) | payer OTHER, SELFPAY ==
[2022-10-20 11:10] LABS: Basophils Absolute Auto 0.1 X10*3/uL (0.0-0.2); Eosinophils Absolute Auto 0.2 X10*3/uL (0.0-0.4); Eosinophils Percent Auto 4.2 % (0-4); Hematocrit 26.2 % (37.0-47.0); Hemoglobin 7.8 g/dl (12.0-16.0); Imm Gran Abs Auto 0.03 X10*3/uL (0.00-0.03); Imm Gran Pct Auto 0.7 % (0.0-0.4); Lymphocytes Absolute Auto 1.4 X10*3/uL (1.2-4.9); Lymphocytes Percent Auto 35.5 % (20-40); MANUAL DIFF FLAG SCAN; Mean Corpuscular HGB Conc 29.8 g/dl (31.0-35.0); Mean Corpuscular Hemoglobin 28.6 pg (27.0-33.0); Mean Platelet Volume 11.7 fL (9.4-12.3); Monocytes Absolute Auto 0.8 X10*3/uL (0.1-1.2); Monocytes Percent Auto 20.2 % (2-11); Neutrophils Absolute Auto 1.5 x10*3/uL (2.0-8.3); Neutrophils Percent Auto 37.4 % (45-73); Platelet Count 239 X10*3/uL (160-400); Red Blood Count 2.73 X10*6/uL (4.20-5.50); Red Cell Distribution Width 17.3 % (11.0-16.0); SCAN SMEAR FLAG 1; White Blood Count 4.1 X10*3/uL (4.8-10.8)
[2022-10-20 11:35] LABS: SLIDE REVIEW VERIFIED
[2022-10-20 11:36] LABS: Alanine Aminotransferase 6 U/L (0-31); Albumin Level 2.8 g/dL (3.5-5.0); Alkaline Phosphatase 76 U/L (39-117); Anion Gap 9 (12-20); Aspartate Amino Transferase 11 U/L (5-31); Bilirubin Total 0.2 mg/dL (0.0-1.0); Blood Urea Nitrogen 17 mg/dL (9-16); Calcium 8.6 mg/dL (8.4-10.2); Carbon Dioxide 26 mmol/L (22-29); Chloride 111 mmol/L (96-108); Estimated Glomerular Filt Rate 47; Glucose Random 92 mg/dL (60-115); Potassium 4.1 mmol/L (3.3-5.1); Sodium 142 mmol/L (135-145); Total Protein 5.4 g/dL (6.5-8.0)
== END 2022-10-20 14:10 | disposition home or self-care (01) ==
LOC: HO.LHD 14:09
PROVIDERS: Visit Provider Internal Medicine Medical Oncology
DX: C90.00 Multiple myeloma not having achieved remission (principal)
CPT/HCPCS: 36415; 80053; 85025

== ENCOUNTER → 2022-10-25 14:43 | Outpatient (BNVA) | payer OTHER, SELFPAY | PROVIDERS: PCP Internal Medicine; Visit Provider Nurse Practitioner | DX: D12.6 Benign neoplasm of colon, unspecified (principal); J44.9 Chronic obstructive pulmonary disease, unspecified; N18.9 Chronic kidney disease, unspecified; F20.9 Schizophrenia, unspecified | CPT/HCPCS: 99202 ==

== ENCOUNTER 2022-10-30 07:02 | Outpatient (REF) | payer OTHER, SELFPAY ==
[2022-10-27 12:32] LABS: Alanine Aminotransferase < 5 U/L (0-31); Albumin Level 2.9 g/dL (3.5-5.0); Alkaline Phosphatase 85 U/L (39-117); Anion Gap 16 (12-20); Aspartate Amino Transferase 9 U/L (5-31); Bilirubin Total 0.3 mg/dL (0.0-1.0); Blood Urea Nitrogen 16 mg/dL (9-16); Carbon Dioxide 24 mmol/L (22-29); Chloride 112 mmol/L (96-108); Estimated Glomerular Filt Rate 33; Glucose Random 65 mg/dL (60-115); Potassium 5.5 mmol/L (3.3-5.1); Sodium 146 mmol/L (135-145); Total Protein 5.6 g/dL (6.5-8.0)
[2022-10-30 10:59] LABS: Basophils Percent Auto 0.9 % (0-2); Eosinophils Absolute Auto 0.2 X10*3/uL (0.0-0.4); Eosinophils Percent Auto 8.9 % (0-4); Hematocrit 28.5 % (37.0-47.0); Hemoglobin 8.7 g/dl (12.0-16.0); Imm Gran Abs Auto 0.01 X10*3/uL (0.00-0.03); Imm Gran Pct Auto 0.4 % (0.0-0.4); Lymphocytes Absolute Auto 0.9 X10*3/uL (1.2-4.9); Lymphocytes Percent Auto 39.1 % (20-40); MANUAL DIFF FLAG SCAN; Mean Corpuscular HGB Conc 30.5 g/dl (31.0-35.0); Mean Corpuscular Hemoglobin 29.5 pg (27.0-33.0); Mean Corpuscular Volume 96.6 fL (80.0-98.0); Monocytes Absolute Auto 0.3 X10*3/uL (0.1-1.2); Monocytes Percent Auto 13.3 % (2-11); Neutrophils Absolute Auto 0.8 x10*3/uL (2.0-8.3); Neutrophils Percent Auto 37.4 % (45-73); Platelet Count 157 X10*3/uL (160-400); Red Blood Count 2.95 X10*6/uL (4.20-5.50); Red Cell Distribution Width 17.3 % (11.0-16.0); SCAN SMEAR FLAG 1
[2022-10-30 11:00] LABS: White Blood Count 2.3 X10*3/uL (4.8-10.8)
[2022-10-30 11:32] LABS: Alanine Aminotransferase 6 U/L (0-31); Albumin Level 3.1 g/dL (3.5-5.0); Alkaline Phosphatase 72 U/L (39-117); Anion Gap 13 (12-20); Aspartate Amino Transferase 11 U/L (5-31); Bilirubin Total 0.5 mg/dL (0.0-1.0); Blood Urea Nitrogen 19 mg/dL (9-16); Calcium 9.2 mg/dL (8.4-10.2); Carbon Dioxide 25 mmol/L (22-29); Chloride 110 mmol/L (96-108); Estimated Glomerular Filt Rate 32; Glucose Random 82 mg/dL (60-115); Potassium 3.8 mmol/L (3.3-5.1); Sodium 144 mmol/L (135-145); Total Protein 5.9 g/dL (6.5-8.0)
[2022-10-30 11:47] LABS: SLIDE REVIEW VERIFIED
== END 2022-10-30 07:03 | disposition home or self-care (01) ==
LOC: HO.LHD 07:02
PROVIDERS: Visit Provider Internal Medicine Medical Oncology
DX: C90.00 Multiple myeloma not having achieved remission (principal)
CPT/HCPCS: 36415; 80053; 85025

== ENCOUNTER 2022-11-03 06:34 | Outpatient (REF) | payer OTHER, SELFPAY ==
[2022-11-03 10:23] LABS: MANUAL DIFF FLAG NO
[2022-11-03 10:43] LABS: Basophils Absolute Auto 0.1 X10*3/uL (0.0-0.2); Basophils Percent Auto 1.3 % (0-2); Eosinophils Absolute Auto 0.3 X10*3/uL (0.0-0.4); Eosinophils Percent Auto 7.4 % (0-4); Hematocrit 30.5 % (37.0-47.0); Hemoglobin 9.2 g/dl (12.0-16.0); Imm Gran Abs Auto 0.02 X10*3/uL (0.00-0.03); Imm Gran Pct Auto 0.5 % (0.0-0.4); Lymphocytes Absolute Auto 1.9 X10*3/uL (1.2-4.9); Lymphocytes Percent Auto 49.4 % (20-40); Mean Corpuscular HGB Conc 30.2 g/dl (31.0-35.0); Mean Corpuscular Hemoglobin 28.9 pg (27.0-33.0); Mean Corpuscular Volume 95.9 fL (80.0-98.0); Mean Platelet Volume 11.5 fL (9.4-12.3); Monocytes Absolute Auto 0.3 X10*3/uL (0.1-1.2); Monocytes Percent Auto 6.6 % (2-11); Neutrophils Absolute Auto 1.4 x10*3/uL (2.0-8.3); Neutrophils Percent Auto 34.8 % (45-73); Platelet Count 164 X10*3/uL (160-400); Red Blood Count 3.18 X10*6/uL (4.20-5.50); Red Cell Distribution Width 17.5 % (11.0-16.0); White Blood Count 3.9 X10*3/uL (4.8-10.8)
[2022-11-03 11:35] LABS: Alanine Aminotransferase 5 U/L (0-31); Albumin Level 3.2 g/dL (3.5-5.0); Alkaline Phosphatase 74 U/L (39-117); Anion Gap 12 (12-20); Aspartate Amino Transferase 11 U/L (5-31); Bilirubin Total 0.4 mg/dL (0.0-1.0); Blood Urea Nitrogen 13 mg/dL (9-16); Calcium 8.3 mg/dL (8.4-10.2); Carbon Dioxide 24 mmol/L (22-29); Chloride 111 mmol/L (96-108); Estimated Glomerular Filt Rate 35; Glucose Random 83 mg/dL (60-115); Potassium 3.6 mmol/L (3.3-5.1); Sodium 143 mmol/L (135-145); Total Protein 5.9 g/dL (6.5-8.0)
== END 2022-11-03 06:35 | disposition home or self-care (01) ==
LOC: HO.LHD 06:34
PROVIDERS: Visit Provider Internal Medicine Medical Oncology
DX: C90.00 Multiple myeloma not having achieved remission (principal)
CPT/HCPCS: 36415; 80053; 85025

== ENCOUNTER 2022-11-10 | Outpatient (REF) | payer OTHER, SELFPAY ==
[2022-11-10 09:35] LABS: MANUAL DIFF FLAG NO
[2022-11-10 09:48] LABS: Basophils Absolute Auto 0.1 X10*3/uL (0.0-0.2); Eosinophils Absolute Auto 0.3 X10*3/uL (0.0-0.4); Eosinophils Percent Auto 12.2 % (0-4); Hematocrit 29.5 % (37.0-47.0); Hemoglobin 8.9 g/dl (12.0-16.0); Imm Gran Abs Auto 0.03 X10*3/uL (0.00-0.03); Imm Gran Pct Auto 1.2 % (0.0-0.4); Lymphocytes Absolute Auto 0.9 X10*3/uL (1.2-4.9); Mean Corpuscular HGB Conc 30.2 g/dl (31.0-35.0); Mean Corpuscular Hemoglobin 29.9 pg (27.0-33.0); Mean Platelet Volume 12.5 fL (9.4-12.3); Monocytes Absolute Auto 0.2 X10*3/uL (0.1-1.2); Monocytes Percent Auto 8.3 % (2-11); NRBC Pct Auto 0.8 /100WBC (0.0-0.2); Neutrophils Percent Auto 39.3 % (45-73); Platelet Count 156 X10*3/uL (160-400); Red Blood Count 2.98 X10*6/uL (4.20-5.50); Red Cell Distribution Width 18.9 % (11.0-16.0)
[2022-11-10 09:51] LABS: White Blood Count 2.5 X10*3/uL (4.8-10.8)
[2022-11-10 10:03] LABS: Alanine Aminotransferase 7 U/L (0-31); Albumin Level 2.8 g/dL (3.5-5.0); Alkaline Phosphatase 72 U/L (39-117); Anion Gap 9 (12-20); Aspartate Amino Transferase 11 U/L (5-31); Bilirubin Total 0.2 mg/dL (0.0-1.0); Blood Urea Nitrogen 17 mg/dL (9-16); Calcium 7.9 mg/dL (8.4-10.2); Carbon Dioxide 22 mmol/L (22-29); Chloride 118 mmol/L (96-108); Estimated Glomerular Filt Rate 48; Glucose Random 98 mg/dL (60-115); Potassium 3.8 mmol/L (3.3-5.1); Sodium 145 mmol/L (135-145); Total Protein 5.2 g/dL (6.5-8.0)
== END 2022-11-10 00:01 ==
LOC: HO.LHD
PROVIDERS: Visit Provider Internal Medicine Medical Oncology
DX: C90.00 Multiple myeloma not having achieved remission (principal)
CPT/HCPCS: 36415; 80053; 85025

== ENCOUNTER 2022-11-17 07:13 | Outpatient (REF) | payer OTHER, SELFPAY ==
[2022-11-17 10:57] LABS: Eosinophils Absolute Auto 0.3 X10*3/uL (0.0-0.4); Eosinophils Percent Auto 13.2 % (0-4); Hematocrit 26.1 % (37.0-47.0); Hemoglobin 8.1 g/dl (12.0-16.0); Imm Gran Abs Auto 0.01 X10*3/uL (0.00-0.03); Imm Gran Pct Auto 0.5 % (0.0-0.4); Lymphocytes Percent Auto 47.3 % (20-40); MANUAL DIFF FLAG SCAN; Mean Corpuscular Volume 96.7 fL (80.0-98.0); Monocytes Absolute Auto 0.2 X10*3/uL (0.1-1.2); Monocytes Percent Auto 9.8 % (2-11); Neutrophils Absolute Auto 0.6 x10*3/uL (2.0-8.3); Neutrophils Percent Auto 27.2 % (45-73); Platelet Count 156 X10*3/uL (160-400); Red Cell Distribution Width 19.1 % (11.0-16.0); SCAN SMEAR FLAG 1
[2022-11-17 11:00] LABS: White Blood Count 2.1 X10*3/uL (4.8-10.8)
[2022-11-17 11:26] LABS: SLIDE REVIEW VERIFIED
[2022-11-17 12:37] LABS: Alanine Aminotransferase 6 U/L (0-31); Albumin Level 2.7 g/dL (3.5-5.0); Alkaline Phosphatase 64 U/L (39-117); Anion Gap 10 (12-20); Aspartate Amino Transferase 9 U/L (5-31); Bilirubin Total 0.4 mg/dL (0.0-1.0); Blood Urea Nitrogen 11 mg/dL (9-16); Calcium 7.7 mg/dL (8.4-10.2); Carbon Dioxide 25 mmol/L (22-29); Chloride 116 mmol/L (96-108); Estimated Glomerular Filt Rate 45; Glucose Random 79 mg/dL (60-115); Potassium 4.5 mmol/L (3.3-5.1); Sodium 146 mmol/L (135-145); Total Protein 4.9 g/dL (6.5-8.0)
== END 2022-11-17 07:14 | disposition home or self-care (01) ==
LOC: HO.LHD 07:13
PROVIDERS: Visit Provider Internal Medicine Medical Oncology
DX: C90.00 Multiple myeloma not having achieved remission (principal)
CPT/HCPCS: 36415; 80053; 85025

== ENCOUNTER 2022-11-24 07:12 | Outpatient (REF) | payer OTHER, SELFPAY ==
[2022-11-24 09:00] LABS: MANUAL DIFF FLAG NO
[2022-11-24 09:03] LABS: Basophils Absolute Auto 0.1 X10*3/uL (0.0-0.2); Basophils Percent Auto 2.3 % (0-2); Eosinophils Absolute Auto 0.2 X10*3/uL (0.0-0.4); Eosinophils Percent Auto 5.2 % (0-4); Hemoglobin 8.7 g/dl (12.0-16.0); Lymphocytes Absolute Auto 1.3 X10*3/uL (1.2-4.9); Lymphocytes Percent Auto 42.8 % (20-40); Mean Corpuscular HGB Conc 31.1 g/dl (31.0-35.0); Mean Corpuscular Hemoglobin 29.8 pg (27.0-33.0); Mean Corpuscular Volume 95.9 fL (80.0-98.0); Mean Platelet Volume 10.8 fL (9.4-12.3); Monocytes Absolute Auto 0.4 X10*3/uL (0.1-1.2); Monocytes Percent Auto 12.7 % (2-11); Neutrophils Absolute Auto 1.1 x10*3/uL (2.0-8.3); Platelet Count 152 X10*3/uL (160-400); Red Blood Count 2.92 X10*6/uL (4.20-5.50); Red Cell Distribution Width 18.9 % (11.0-16.0); White Blood Count 3.1 X10*3/uL (4.8-10.8)
[2022-11-24 09:30] LABS: Alanine Aminotransferase < 5 U/L (0-31); Albumin Level 2.7 g/dL (3.5-5.0); Alkaline Phosphatase 67 U/L (39-117); Anion Gap 8 (12-20); Aspartate Amino Transferase 10 U/L (5-31); Bilirubin Total 0.3 mg/dL (0.0-1.0); Blood Urea Nitrogen 13 mg/dL (9-16); Calcium 8.2 mg/dL (8.4-10.2); Carbon Dioxide 24 mmol/L (22-29); Chloride 115 mmol/L (96-108); Estimated Glomerular Filt Rate 41; Glucose Random 101 mg/dL (60-115); Potassium 4.2 mmol/L (3.3-5.1); Sodium 143 mmol/L (135-145); Total Protein 4.9 g/dL (6.5-8.0)
== END 2022-11-24 07:13 | disposition home or self-care (01) ==
LOC: HO.LHD 07:12
PROVIDERS: Visit Provider Internal Medicine Medical Oncology
DX: C90.00 Multiple myeloma not having achieved remission (principal)
CPT/HCPCS: 36415; 80053; 85025

== ENCOUNTER 2022-12-01 06:38 | Outpatient (REF) | payer OTHER, SELFPAY ==
[2022-12-01 11:57] LABS: MANUAL DIFF FLAG NO
[2022-12-01 12:18] LABS: Eosinophils Absolute Auto 0.3 X10*3/uL (0.0-0.4); Eosinophils Percent Auto 10.7 % (0-4); Hematocrit 30.1 % (37.0-47.0); Hemoglobin 9.4 g/dl (12.0-16.0); Imm Gran Abs Auto 0.01 X10*3/uL (0.00-0.03); Imm Gran Pct Auto 0.3 % (0.0-0.4); Lymphocytes Absolute Auto 0.9 X10*3/uL (1.2-4.9); Lymphocytes Percent Auto 28.8 % (20-40); Mean Corpuscular HGB Conc 31.2 g/dl (31.0-35.0); Mean Corpuscular Hemoglobin 30.4 pg (27.0-33.0); Mean Corpuscular Volume 97.4 fL (80.0-98.0); Mean Platelet Volume 11.2 fL (9.4-12.3); Monocytes Absolute Auto 0.3 X10*3/uL (0.1-1.2); Monocytes Percent Auto 8.7 % (2-11); Neutrophils Absolute Auto 1.6 x10*3/uL (2.0-8.3); Neutrophils Percent Auto 50.5 % (45-73); Platelet Count 152 X10*3/uL (160-400); Red Blood Count 3.09 X10*6/uL (4.20-5.50); Red Cell Distribution Width 18.8 % (11.0-16.0); White Blood Count 3.1 X10*3/uL (4.8-10.8)
[2022-12-01 13:40] LABS: Alanine Aminotransferase < 5 U/L (0-31); Albumin Level 2.9 g/dL (3.5-5.0); Alkaline Phosphatase 72 U/L (39-117); Anion Gap 9 (12-20); Aspartate Amino Transferase 9 U/L (5-31); Bilirubin Total 0.2 mg/dL (0.0-1.0); Blood Urea Nitrogen 17 mg/dL (9-16); Calcium 8.6 mg/dL (8.4-10.2); Carbon Dioxide 25 mmol/L (22-29); Chloride 114 mmol/L (96-108); Estimated Glomerular Filt Rate 57; Glucose Random 108 mg/dL (60-115); Potassium 3.8 mmol/L (3.3-5.1); Sodium 144 mmol/L (135-145); Total Protein 5.3 g/dL (6.5-8.0)
== END 2022-12-01 06:39 | disposition home or self-care (01) ==
LOC: HO.LHD 06:38
PROVIDERS: Visit Provider Internal Medicine Medical Oncology
DX: Z13.89 Encounter for screening for other disorder (principal)
CPT/HCPCS: 36415; 80053; 85025

== ENCOUNTER 2022-12-08 06:09 | Outpatient (REF) | payer OTHER, SELFPAY ==
[2022-12-08 09:52] LABS: Basophils Percent Auto 0.8 % (0-2); Eosinophils Absolute Auto 0.3 X10*3/uL (0.0-0.4); Eosinophils Percent Auto 9.8 % (0-4); Hematocrit 28.3 % (37.0-47.0); Hemoglobin 8.9 g/dl (12.0-16.0); Imm Gran Abs Auto 0.01 X10*3/uL (0.00-0.03); Imm Gran Pct Auto 0.4 % (0.0-0.4); Lymphocytes Absolute Auto 1.1 X10*3/uL (1.2-4.9); Lymphocytes Percent Auto 42.9 % (20-40); MANUAL DIFF FLAG SCAN; Mean Corpuscular HGB Conc 31.4 g/dl (31.0-35.0); Mean Corpuscular Hemoglobin 30.8 pg (27.0-33.0); Mean Corpuscular Volume 97.9 fL (80.0-98.0); Mean Platelet Volume 12.7 fL (9.4-12.3); Monocytes Absolute Auto 0.3 X10*3/uL (0.1-1.2); Neutrophils Absolute Auto 0.8 x10*3/uL (2.0-8.3); Neutrophils Percent Auto 33.1 % (45-73); Platelet Count 101 X10*3/uL (160-400); Red Blood Count 2.89 X10*6/uL (4.20-5.50); Red Cell Distribution Width 17.3 % (11.0-16.0); SCAN SMEAR FLAG 1
[2022-12-08 09:53] LABS: White Blood Count 2.5 X10*3/uL (4.8-10.8)
[2022-12-08 10:17] LABS: SLIDE REVIEW VERIFIED
[2022-12-08 10:19] LABS: Alanine Aminotransferase 10 U/L (0-31); Albumin Level 2.9 g/dL (3.5-5.0); Alkaline Phosphatase 65 U/L (39-117); Anion Gap 11 (12-20); Aspartate Amino Transferase 13 U/L (5-31); Bilirubin Total 0.4 mg/dL (0.0-1.0); Blood Urea Nitrogen 13 mg/dL (9-16); Calcium 7.4 mg/dL (8.4-10.2); Carbon Dioxide 22 mmol/L (22-29); Chloride 115 mmol/L (96-108); Estimated Glomerular Filt Rate 49; Glucose Random 89 mg/dL (60-115); Potassium 3.6 mmol/L (3.3-5.1); Sodium 144 mmol/L (135-145); Total Protein 5.3 g/dL (6.5-8.0)
== END 2022-12-08 06:10 | disposition home or self-care (01) ==
LOC: HO.LHD 06:09
PROVIDERS: Visit Provider Internal Medicine Medical Oncology
DX: C90.00 Multiple myeloma not having achieved remission (principal)
CPT/HCPCS: 36415; 80053; 85025

== ENCOUNTER 2022-12-15 05:58 | Outpatient (REF) | payer OTHER, SELFPAY ==
[2022-12-15 11:39] LABS: Eosinophils Absolute Auto 0.2 X10*3/uL (0.0-0.4); Eosinophils Percent Auto 10.1 % (0-4); Hematocrit 27.3 % (37.0-47.0); Hemoglobin 8.5 g/dl (12.0-16.0); Imm Gran Abs Auto 0.02 X10*3/uL (0.00-0.03); Lymphocytes Absolute Auto 0.8 X10*3/uL (1.2-4.9); Lymphocytes Percent Auto 39.7 % (20-40); MANUAL DIFF FLAG SCAN; Mean Corpuscular HGB Conc 31.1 g/dl (31.0-35.0); Mean Corpuscular Hemoglobin 30.2 pg (27.0-33.0); Mean Corpuscular Volume 97.2 fL (80.0-98.0); Mean Platelet Volume 10.3 fL (9.4-12.3); Monocytes Absolute Auto 0.3 X10*3/uL (0.1-1.2); Monocytes Percent Auto 12.6 % (2-11); Neutrophils Absolute Auto 0.7 x10*3/uL (2.0-8.3); Neutrophils Percent Auto 35.6 % (45-73); Red Blood Count 2.81 X10*6/uL (4.20-5.50); Red Cell Distribution Width 17.6 % (11.0-16.0); SCAN SMEAR FLAG 1
[2022-12-15 11:40] LABS: Platelet Count 97 X10*3/uL (160-400)
[2022-12-15 11:43] LABS: SLIDE REVIEW VERIFIED
[2022-12-15 11:48] LABS: Alanine Aminotransferase 6 U/L (0-31); Albumin Level 2.7 g/dL (3.5-5.0); Alkaline Phosphatase 65 U/L (39-117); Anion Gap 9 (12-20); Aspartate Amino Transferase 10 U/L (5-31); Bilirubin Total 0.3 mg/dL (0.0-1.0); Blood Urea Nitrogen 9 mg/dL (9-16); Calcium 7.6 mg/dL (8.4-10.2); Carbon Dioxide 25 mmol/L (22-29); Chloride 113 mmol/L (96-108); Estimated Glomerular Filt Rate 53; Glucose Random 107 mg/dL (60-115); Potassium 3.7 mmol/L (3.3-5.1); Sodium 143 mmol/L (135-145)
== END 2022-12-15 05:59 | disposition home or self-care (01) ==
LOC: HO.LHD 05:58
PROVIDERS: Visit Provider Internal Medicine Medical Oncology
DX: C90.00 Multiple myeloma not having achieved remission (principal)
CPT/HCPCS: 36415; 80053; 85025

== ENCOUNTER 2022-12-18 08:08 | Outpatient (REF) | payer OTHER, SELFPAY ==
[2022-12-18 12:14] LABS: Hematocrit 28.9 % (37.0-47.0); Mean Corpuscular HGB Conc 31.1 g/dl (31.0-35.0); Mean Corpuscular Hemoglobin 30.5 pg (27.0-33.0); Platelet Count 122 X10*3/uL (160-400); Red Blood Count 2.95 X10*6/uL (4.20-5.50)
[2022-12-18 12:16] LABS: WBC ABN SCTR FOR CBC 1; White Blood Count 3.3 X10*3/uL (4.8-10.8)
[2022-12-18 12:36] LABS: Alanine Aminotransferase 7 U/L (0-31); Albumin Level 3.2 g/dL (3.5-5.0); Alkaline Phosphatase 70 U/L (39-117); Anion Gap 13 (12-20); Aspartate Amino Transferase 11 U/L (5-31); Bilirubin Total 0.9 mg/dL (0.0-1.0); Blood Urea Nitrogen 12 mg/dL (9-16); Calcium 8.5 mg/dL (8.4-10.2); Carbon Dioxide 24 mmol/L (22-29); Chloride 111 mmol/L (96-108); Estimated Glomerular Filt Rate 48; Glucose Random 77 mg/dL (60-115); Potassium 3.7 mmol/L (3.3-5.1); Sodium 144 mmol/L (135-145); Total Protein 5.7 g/dL (6.5-8.0)
[2022-12-18 12:50] LABS: Band Neutrophils Percent 8 % (3-5); Eosinophils Absolute Manual 0.2 X10*3/uL (0.0-0.4); Eosinophils Percent Manual 6 % (0-4); Lymphocytes Absolute Manual 1.4 X10*3/uL (1.2-4.9); Lymphocytes Percent Manual 42 % (20-40); Monocytes Absolute Manual 0.1 X10*3/uL (0.1-1.2); Monocytes Percent Manual 2 % (2-11); Neutrophils Absolute Manual 1.7 X10*3/uL (2.0-8.3); Neutrophils Percent Manual 42 % (45-73)
[2022-12-18 12:52] LABS: Platelet Estimate DECREASED (NORMAL)
[2022-12-18 12:54] LABS: Hypochromasia 1+ (5-14) /OIF; RBC Morphology NOTED
[2022-12-18 12:55] LABS: Microcytosis 1+ (5-14) /OIF; Platelet Morphology Comment NORM; Tear Drop Cells 1+ (0-2) /OIF
== END 2022-12-18 08:09 | disposition home or self-care (01) ==
LOC: HO.LHD 08:08
PROVIDERS: Visit Provider Internal Medicine Medical Oncology
DX: C90.00 Multiple myeloma not having achieved remission (principal)
CPT/HCPCS: 36415; 80053; 85007; 85025; 85027

== ENCOUNTER 2022-12-22 07:27 | Outpatient (REF) | payer OTHER, SELFPAY | END 2022-12-22 07:28 | disposition home or self-care (01) | LOC: HO.LHD 07:27 | PROVIDERS: Visit Provider Internal Medicine Medical Oncology | DX: Z13.89 Encounter for screening for other disorder (principal) ==

== ENCOUNTER 2022-12-29 06:17 | Outpatient (REF) | payer OTHER, SELFPAY ==
[2022-12-29 10:33] LABS: Hematocrit 28.8 % (37.0-47.0); Hemoglobin 9.1 g/dl (12.0-16.0); Mean Corpuscular HGB Conc 31.6 g/dl (31.0-35.0); Mean Corpuscular Hemoglobin 30.8 pg (27.0-33.0); Mean Corpuscular Volume 97.6 fL (80.0-98.0); Platelet Count 155 X10*3/uL (160-400); Red Blood Count 2.95 X10*6/uL (4.20-5.50); Red Cell Distribution Width 17.8 % (11.0-16.0); White Blood Count 5.4 X10*3/uL (4.8-10.8)
[2022-12-29 10:59] LABS: Alanine Aminotransferase < 5 U/L (0-31); Albumin Level 3.2 g/dL (3.5-5.0); Alkaline Phosphatase 60 U/L (39-117); Anion Gap 12 (12-20); Aspartate Amino Transferase 10 U/L (5-31); Bilirubin Total 0.5 mg/dL (0.0-1.0); Blood Urea Nitrogen 12 mg/dL (9-16); Calcium 8.7 mg/dL (8.4-10.2); Carbon Dioxide 23 mmol/L (22-29); Chloride 111 mmol/L (96-108); Estimated Glomerular Filt Rate 41; Glucose Random 80 mg/dL (60-115); Potassium 3.6 mmol/L (3.3-5.1); Sodium 142 mmol/L (135-145)
[2022-12-29 11:27] LABS: Band Neutrophils Percent 13 % (3-5); Basophils Abs Manual 0.3 X10*3/uL (0.0-0.2); Basophils Percent Manual 6 % (0-2); Eosinophils Absolute Manual 0.1 X10*3/uL (0.0-0.4); Eosinophils Percent Manual 2 % (0-4); Lymphocytes Absolute Manual 1.2 X10*3/uL (1.2-4.9); Lymphocytes Percent Manual 23 % (20-40); Metamyelocytes Absolute 0.1 X10*3/uL; Metamyelocytes Percent 2 %; Monocytes Absolute Manual 0.1 X10*3/uL (0.1-1.2); Monocytes Percent Manual 1 % (2-11); Neutrophils Absolute Manual 3.6 X10*3/uL (2.0-8.3); Neutrophils Percent Manual 53 % (45-73)
[2022-12-29 11:30] LABS: RBC Morphology NOTED
[2022-12-29 11:31] LABS: Tear Drop Cells 1+ (0-2) /OIF
[2022-12-29 11:32] LABS: Platelet Estimate NORMAL (NORMAL); Platelet Morphology Comment NORMAL
== END 2022-12-29 06:18 | disposition home or self-care (01) ==
LOC: HO.LHD 06:17
PROVIDERS: Visit Provider Internal Medicine Medical Oncology
DX: C90.00 Multiple myeloma not having achieved remission (principal)
CPT/HCPCS: 36415; 80053; 85007; 85027

== ENCOUNTER 2023-01-05 06:31 | Outpatient (REF) | payer OTHER, SELFPAY ==
[2023-01-05 09:13] LABS: Basophils Percent Auto 1.8 % (0-2); Eosinophils Absolute Auto 0.3 X10*3/uL (0.0-0.4); Eosinophils Percent Auto 11.3 % (0-4); Hematocrit 30.5 % (37.0-47.0); Hemoglobin 9.6 g/dl (12.0-16.0); Imm Gran Abs Auto 0.01 X10*3/uL (0.00-0.03); Imm Gran Pct Auto 0.5 % (0.0-0.4); Lymphocytes Percent Auto 47.1 % (20-40); MANUAL DIFF FLAG SCAN; Mean Corpuscular HGB Conc 31.5 g/dl (31.0-35.0); Mean Corpuscular Hemoglobin 30.4 pg (27.0-33.0); Mean Corpuscular Volume 96.5 fL (80.0-98.0); Mean Platelet Volume 12.8 fL (9.4-12.3); Monocytes Absolute Auto 0.2 X10*3/uL (0.1-1.2); Monocytes Percent Auto 7.2 % (2-11); Neutrophils Absolute Auto 0.7 x10*3/uL (2.0-8.3); Neutrophils Percent Auto 32.1 % (45-73); Platelet Count 110 X10*3/uL (160-400); Red Blood Count 3.16 X10*6/uL (4.20-5.50); Red Cell Distribution Width 16.9 % (11.0-16.0); SCAN SMEAR FLAG 1
[2023-01-05 09:14] LABS: White Blood Count 2.2 X10*3/uL (4.8-10.8)
[2023-01-05 11:10] LABS: Alanine Aminotransferase < 5 U/L (0-31); Alkaline Phosphatase 57 U/L (39-117); Anion Gap 8 (12-20); Aspartate Amino Transferase 9 U/L (5-31); Bilirubin Total 0.4 mg/dL (0.0-1.0); Blood Urea Nitrogen 11 mg/dL (9-16); Calcium 8.3 mg/dL (8.4-10.2); Carbon Dioxide 24 mmol/L (22-29); Chloride 111 mmol/L (96-108); Estimated Glomerular Filt Rate 38; Glucose Random 87 mg/dL (60-115); Potassium 3.8 mmol/L (3.3-5.1); Sodium 139 mmol/L (135-145); Total Protein 5.9 g/dL (6.5-8.0)
[2023-01-05 11:51] LABS: SLIDE REVIEW VERIFIED
== END 2023-01-05 06:32 | disposition home or self-care (01) ==
LOC: HO.LHD 06:31
PROVIDERS: Visit Provider Internal Medicine Medical Oncology
DX: C90.00 Multiple myeloma not having achieved remission (principal)
CPT/HCPCS: 36415; 80053; 85025

== ENCOUNTER 2023-01-12 07:45 | Outpatient (REF) | payer OTHER, SELFPAY ==
[2023-01-12 09:39] LABS: Eosinophils Absolute Auto 0.3 X10*3/uL (0.0-0.4); Eosinophils Percent Auto 17.6 % (0-4); Hematocrit 27.7 % (37.0-47.0); Hemoglobin 8.9 g/dl (12.0-16.0); Lymphocytes Absolute Auto 0.7 X10*3/uL (1.2-4.9); Lymphocytes Percent Auto 49.3 % (20-40); MANUAL DIFF FLAG SCAN; Mean Corpuscular HGB Conc 32.1 g/dl (31.0-35.0); Mean Corpuscular Hemoglobin 30.8 pg (27.0-33.0); Mean Corpuscular Volume 95.8 fL (80.0-98.0); Mean Platelet Volume 10.5 fL (9.4-12.3); Monocytes Absolute Auto 0.2 X10*3/uL (0.1-1.2); Monocytes Percent Auto 10.8 % (2-11); Neutrophils Absolute Auto 0.3 x10*3/uL (2.0-8.3); Neutrophils Percent Auto 20.3 % (45-73); Platelet Count 111 X10*3/uL (160-400); Red Blood Count 2.89 X10*6/uL (4.20-5.50); Red Cell Distribution Width 16.9 % (11.0-16.0); SCAN SMEAR FLAG 1
[2023-01-12 09:40] LABS: White Blood Count 1.5 X10*3/uL (4.8-10.8)
[2023-01-12 09:58] LABS: SLIDE REVIEW VERIFIED
[2023-01-12 10:07] LABS: Alanine Aminotransferase < 5 U/L (0-31); Albumin Level 2.7 g/dL (3.5-5.0); Alkaline Phosphatase 55 U/L (39-117); Anion Gap 9 (12-20); Aspartate Amino Transferase 10 U/L (5-31); Bilirubin Total 0.3 mg/dL (0.0-1.0); Blood Urea Nitrogen 10 mg/dL (9-16); Calcium 7.5 mg/dL (8.4-10.2); Carbon Dioxide 23 mmol/L (22-29); Chloride 113 mmol/L (96-108); Estimated Glomerular Filt Rate 42; Glucose Random 85 mg/dL (60-115); Potassium 3.3 mmol/L (3.3-5.1); Sodium 142 mmol/L (135-145); Total Protein 5.2 g/dL (6.5-8.0)
== END 2023-01-12 07:46 | disposition home or self-care (01) ==
LOC: HO.LHD 07:45
PROVIDERS: Visit Provider Internal Medicine Medical Oncology
DX: C90.00 Multiple myeloma not having achieved remission (principal)
CPT/HCPCS: 36415; 80053; 85025

== ENCOUNTER 2023-01-19 07:12 | Outpatient (REF) | payer OTHER, SELFPAY | END 2023-01-19 07:13 | disposition home or self-care (01) | LOC: HO.LHD 07:12 | PROVIDERS: Visit Provider Internal Medicine Medical Oncology | DX: C90.00 Multiple myeloma not having achieved remission (principal) | CPT/HCPCS: 36415; 80053; 85025 ==

== ENCOUNTER 2023-01-26 06:34 | Outpatient (REF) | payer OTHER, SELFPAY ==
[2023-01-26 09:56] LABS: Basophils Absolute Auto 0.1 X10*3/uL (0.0-0.2); Basophils Percent Auto 4.1 % (0-2); Eosinophils Absolute Auto 0.2 X10*3/uL (0.0-0.4); Eosinophils Percent Auto 7.6 % (0-4); Hemoglobin 9.4 g/dl (12.0-16.0); Lymphocytes Absolute Auto 0.8 X10*3/uL (1.2-4.9); Lymphocytes Percent Auto 42.1 % (20-40); MANUAL DIFF FLAG SCAN; Mean Corpuscular HGB Conc 31.3 g/dl (31.0-35.0); Mean Corpuscular Hemoglobin 30.5 pg (27.0-33.0); Mean Corpuscular Volume 97.4 fL (80.0-98.0); Monocytes Absolute Auto 0.2 X10*3/uL (0.1-1.2); Monocytes Percent Auto 11.7 % (2-11); Neutrophils Absolute Auto 0.7 x10*3/uL (2.0-8.3); Neutrophils Percent Auto 34.5 % (45-73); Platelet Count 146 X10*3/uL (160-400); Red Blood Count 3.08 X10*6/uL (4.20-5.50); Red Cell Distribution Width 16.9 % (11.0-16.0); SCAN SMEAR FLAG 1
[2023-01-26 10:21] LABS: Alanine Aminotransferase < 5 U/L (0-31); Alkaline Phosphatase 59 U/L (39-117); Anion Gap 9 (12-20); Aspartate Amino Transferase 10 U/L (5-31); Bilirubin Total 0.3 mg/dL (0.0-1.0); Blood Urea Nitrogen 17 mg/dL (9-16); Calcium 8.6 mg/dL (8.4-10.2); Carbon Dioxide 22 mmol/L (22-29); Chloride 115 mmol/L (96-108); Estimated Glomerular Filt Rate 49; Glucose Random 117 mg/dL (60-115); Potassium 3.8 mmol/L (3.3-5.1); Sodium 142 mmol/L (135-145); Total Protein 5.5 g/dL (6.5-8.0)
[2023-01-26 10:25] LABS: SLIDE REVIEW VERIFIED
== END 2023-01-26 06:35 | disposition home or self-care (01) ==
LOC: HO.LHD 06:34
PROVIDERS: Visit Provider Internal Medicine Medical Oncology
DX: C90.00 Multiple myeloma not having achieved remission (principal)
CPT/HCPCS: 36415; 80053; 85025

== ENCOUNTER 2023-02-02 07:41 | Outpatient (REF) | payer OTHER, SELFPAY ==
[2023-02-02 11:48] LABS: Basophils Absolute Auto 0.1 X10*3/uL (0.0-0.2); Basophils Percent Auto 1.9 % (0-2); Eosinophils Absolute Auto 0.2 X10*3/uL (0.0-0.4); Eosinophils Percent Auto 7.8 % (0-4); Hematocrit 28.1 % (37.0-47.0); Hemoglobin 8.7 g/dl (12.0-16.0); Imm Gran Abs Auto 0.01 X10*3/uL (0.00-0.03); Imm Gran Pct Auto 0.4 % (0.0-0.4); Lymphocytes Absolute Auto 0.8 X10*3/uL (1.2-4.9); Lymphocytes Percent Auto 32.6 % (20-40); MANUAL DIFF FLAG NO; Mean Corpuscular Hemoglobin 30.5 pg (27.0-33.0); Mean Corpuscular Volume 98.6 fL (80.0-98.0); Monocytes Absolute Auto 0.2 X10*3/uL (0.1-1.2); Monocytes Percent Auto 7.4 % (2-11); Neutrophils Absolute Auto 1.3 x10*3/uL (2.0-8.3); Neutrophils Percent Auto 49.9 % (45-73); Platelet Count 156 X10*3/uL (160-400); Red Blood Count 2.85 X10*6/uL (4.20-5.50); Red Cell Distribution Width 17.2 % (11.0-16.0); White Blood Count 2.6 X10*3/uL (4.8-10.8)
[2023-02-02 14:45] LABS: Alanine Aminotransferase < 5 U/L (0-31); Albumin Level 2.8 g/dL (3.5-5.0); Alkaline Phosphatase 54 U/L (39-117); Anion Gap 9 (12-20); Aspartate Amino Transferase 9 U/L (5-31); Bilirubin Total 0.2 mg/dL (0.0-1.0); Blood Urea Nitrogen 10 mg/dL (9-16); Calcium 8.3 mg/dL (8.4-10.2); Carbon Dioxide 23 mmol/L (22-29); Chloride 111 mmol/L (96-108); Estimated Glomerular Filt Rate 50; Glucose Random 74 mg/dL (60-115); Potassium 3.8 mmol/L (3.3-5.1); Sodium 139 mmol/L (135-145); Total Protein 5.4 g/dL (6.5-8.0)
== END 2023-02-02 07:42 | disposition home or self-care (01) ==
LOC: HO.LHD 07:41
PROVIDERS: Visit Provider Internal Medicine Medical Oncology
DX: C90.00 Multiple myeloma not having achieved remission (principal)
CPT/HCPCS: 36415; 80053; 85025

== ENCOUNTER 2023-02-09 06:36 | Outpatient (REF) | payer OTHER, SELFPAY ==
[2023-02-09 10:10] LABS: Basophils Percent Auto 0.9 % (0-2); Eosinophils Absolute Auto 0.3 X10*3/uL (0.0-0.4); Eosinophils Percent Auto 11.5 % (0-4); Hematocrit 28.5 % (37.0-47.0); Hemoglobin 9.1 g/dl (12.0-16.0); Imm Gran Abs Auto 0.03 X10*3/uL (0.00-0.03); Imm Gran Pct Auto 1.4 % (0.0-0.4); Lymphocytes Absolute Auto 0.8 X10*3/uL (1.2-4.9); Lymphocytes Percent Auto 38.1 % (20-40); MANUAL DIFF FLAG SCAN; Mean Corpuscular HGB Conc 31.9 g/dl (31.0-35.0); Mean Corpuscular Hemoglobin 30.7 pg (27.0-33.0); Mean Corpuscular Volume 96.3 fL (80.0-98.0); Mean Platelet Volume 11.7 fL (9.4-12.3); Monocytes Absolute Auto 0.3 X10*3/uL (0.1-1.2); Monocytes Percent Auto 14.7 % (2-11); Neutrophils Absolute Auto 0.7 x10*3/uL (2.0-8.3); Neutrophils Percent Auto 33.4 % (45-73); Platelet Count 109 X10*3/uL (160-400); Red Blood Count 2.96 X10*6/uL (4.20-5.50); Red Cell Distribution Width 16.9 % (11.0-16.0); SCAN SMEAR FLAG 1
[2023-02-09 10:11] LABS: White Blood Count 2.2 X10*3/uL (4.8-10.8)
[2023-02-09 10:44] LABS: SLIDE REVIEW VERIFIED
[2023-02-09 11:02] LABS: Alanine Aminotransferase < 5 U/L (0-31); Alkaline Phosphatase 57 U/L (39-117); Anion Gap 14 (12-20); Aspartate Amino Transferase 10 U/L (5-31); Bilirubin Total 0.3 mg/dL (0.0-1.0); Blood Urea Nitrogen 12 mg/dL (9-16); Calcium 8.2 mg/dL (8.4-10.2); Carbon Dioxide 20 mmol/L (22-29); Chloride 112 mmol/L (96-108); Estimated Glomerular Filt Rate 53; Glucose Random 83 mg/dL (60-115); Potassium 3.5 mmol/L (3.3-5.1); Sodium 142 mmol/L (135-145); Total Protein 5.5 g/dL (6.5-8.0)
== END 2023-02-09 06:37 | disposition home or self-care (01) ==
LOC: HO.LHD 06:36
PROVIDERS: Visit Provider Internal Medicine Medical Oncology
DX: C90.00 Multiple myeloma not having achieved remission (principal)
CPT/HCPCS: 36415; 80053; 85025

== ENCOUNTER 2023-02-16 06:02 | Outpatient (REF) | payer OTHER, SELFPAY ==
[2023-02-16 10:18] LABS: MANUAL DIFF FLAG NO
[2023-02-16 10:21] LABS: Basophils Percent Auto 0.9 % (0-2); Eosinophils Absolute Auto 0.3 X10*3/uL (0.0-0.4); Hematocrit 31.3 % (37.0-47.0); Hemoglobin 9.8 g/dl (12.0-16.0); Imm Gran Abs Auto 0.08 X10*3/uL (0.00-0.03); Imm Gran Pct Auto 1.9 % (0.0-0.4); Lymphocytes Absolute Auto 1.2 X10*3/uL (1.2-4.9); Lymphocytes Percent Auto 28.8 % (20-40); Mean Corpuscular HGB Conc 31.3 g/dl (31.0-35.0); Mean Corpuscular Hemoglobin 31.2 pg (27.0-33.0); Mean Corpuscular Volume 99.7 fL (80.0-98.0); Mean Platelet Volume 10.4 fL (9.4-12.3); Monocytes Absolute Auto 0.3 X10*3/uL (0.1-1.2); Monocytes Percent Auto 7.7 % (2-11); Neutrophils Absolute Auto 2.3 x10*3/uL (2.0-8.3); Neutrophils Percent Auto 53.7 % (45-73); Platelet Count 107 X10*3/uL (160-400); Red Blood Count 3.14 X10*6/uL (4.20-5.50); Red Cell Distribution Width 17.3 % (11.0-16.0); White Blood Count 4.3 X10*3/uL (4.8-10.8)
[2023-02-16 10:56] LABS: Alanine Aminotransferase 10 U/L (0-31); Albumin Level 3.2 g/dL (3.5-5.0); Alkaline Phosphatase 63 U/L (39-117); Anion Gap 16 (12-20); Aspartate Amino Transferase 14 U/L (5-31); Bilirubin Total 0.5 mg/dL (0.0-1.0); Blood Urea Nitrogen 9 mg/dL (9-16); Calcium 7.4 mg/dL (8.4-10.2); Carbon Dioxide 18 mmol/L (22-29); Chloride 114 mmol/L (96-108); Estimated Glomerular Filt Rate 54; Glucose Random 109 mg/dL (60-115); Potassium 2.8 mmol/L (3.3-5.1); Sodium 145 mmol/L (135-145); Total Protein 6.1 g/dL (6.5-8.0)
== END 2023-02-16 06:03 | disposition home or self-care (01) ==
LOC: HO.LHD 06:02
PROVIDERS: Visit Provider Internal Medicine Medical Oncology
DX: C90.00 Multiple myeloma not having achieved remission (principal)
CPT/HCPCS: 36415; 80053; 85025

== ENCOUNTER 2023-02-23 06:44 | Outpatient (REF) | payer OTHER, SELFPAY ==
[2023-02-23 10:02] LABS: Basophils Percent Auto 1.4 % (0-2); Eosinophils Absolute Auto 0.2 X10*3/uL (0.0-0.4); Eosinophils Percent Auto 9.6 % (0-4); Hematocrit 30.5 % (37.0-47.0); Hemoglobin 9.7 g/dl (12.0-16.0); Imm Gran Abs Auto 0.01 X10*3/uL (0.00-0.03); Imm Gran Pct Auto 0.5 % (0.0-0.4); Lymphocytes Absolute Auto 1.1 X10*3/uL (1.2-4.9); Lymphocytes Percent Auto 52.6 % (20-40); MANUAL DIFF FLAG SCAN; Mean Corpuscular HGB Conc 31.8 g/dl (31.0-35.0); Mean Corpuscular Volume 97.4 fL (80.0-98.0); Mean Platelet Volume 9.6 fL (9.4-12.3); Monocytes Absolute Auto 0.2 X10*3/uL (0.1-1.2); Monocytes Percent Auto 7.2 % (2-11); Neutrophils Absolute Auto 0.6 x10*3/uL (2.0-8.3); Neutrophils Percent Auto 28.7 % (45-73); Platelet Count 108 X10*3/uL (160-400); Red Blood Count 3.13 X10*6/uL (4.20-5.50); Red Cell Distribution Width 18.6 % (11.0-16.0); SCAN SMEAR FLAG 1
[2023-02-23 10:03] LABS: White Blood Count 2.1 X10*3/uL (4.8-10.8)
[2023-02-23 10:21] LABS: Alanine Aminotransferase 7 U/L (0-31); Albumin Level 3.1 g/dL (3.5-5.0); Alkaline Phosphatase 68 U/L (39-117); Anion Gap 11 (12-20); Aspartate Amino Transferase 11 U/L (5-31); Bilirubin Total 0.4 mg/dL (0.0-1.0); Blood Urea Nitrogen 6 mg/dL (9-16); Calcium 7.2 mg/dL (8.4-10.2); Carbon Dioxide 23 mmol/L (22-29); Chloride 114 mmol/L (96-108); Estimated Glomerular Filt Rate 53; Glucose Random 112 mg/dL (60-115); Potassium 2.6 mmol/L (3.3-5.1); Sodium 145 mmol/L (135-145)
[2023-02-23 11:10] LABS: SLIDE REVIEW VERIFIED
== END 2023-02-23 06:45 | disposition home or self-care (01) ==
LOC: HO.LHD 06:44
PROVIDERS: Visit Provider Internal Medicine Medical Oncology
DX: C90.00 Multiple myeloma not having achieved remission (principal)
CPT/HCPCS: 36415; 80053; 85025

== ENCOUNTER 2023-03-02 07:28 | Outpatient (REF) | payer OTHER, SELFPAY ==
[2023-03-02 10:30] LABS: Basophils Percent Auto 1.5 % (0-2); Eosinophils Absolute Auto 0.2 X10*3/uL (0.0-0.4); Eosinophils Percent Auto 7.6 % (0-4); Hematocrit 27.6 % (37.0-47.0); Hemoglobin 8.6 g/dl (12.0-16.0); Imm Gran Abs Auto 0.01 X10*3/uL (0.00-0.03); Imm Gran Pct Auto 0.5 % (0.0-0.4); Lymphocytes Absolute Auto 0.9 X10*3/uL (1.2-4.9); MANUAL DIFF FLAG SCAN; Mean Corpuscular HGB Conc 31.2 g/dl (31.0-35.0); Mean Corpuscular Hemoglobin 30.7 pg (27.0-33.0); Mean Corpuscular Volume 98.6 fL (80.0-98.0); Mean Platelet Volume 10.2 fL (9.4-12.3); Monocytes Absolute Auto 0.3 X10*3/uL (0.1-1.2); Monocytes Percent Auto 13.1 % (2-11); Neutrophils Absolute Auto 0.6 x10*3/uL (2.0-8.3); Neutrophils Percent Auto 30.3 % (45-73); Platelet Count 125 X10*3/uL (160-400); Red Cell Distribution Width 19.3 % (11.0-16.0); SCAN SMEAR FLAG 1
[2023-03-02 10:49] LABS: Alanine Aminotransferase 7 U/L (0-31); Albumin Level 2.8 g/dL (3.5-5.0); Alkaline Phosphatase 52 U/L (39-117); Anion Gap 7 (12-20); Aspartate Amino Transferase 11 U/L (5-31); Bilirubin Total 0.4 mg/dL (0.0-1.0); Blood Urea Nitrogen 7 mg/dL (9-16); Carbon Dioxide 23 mmol/L (22-29); Chloride 119 mmol/L (96-108); Estimated Glomerular Filt Rate > 60; Glucose Random 86 mg/dL (60-115); Potassium 3.9 mmol/L (3.3-5.1); Sodium 145 mmol/L (135-145); Total Protein 5.2 g/dL (6.5-8.0)
[2023-03-02 10:55] LABS: SLIDE REVIEW VERIFIED
== END 2023-03-02 07:29 | disposition home or self-care (01) ==
LOC: HO.LHD 07:28
PROVIDERS: Visit Provider Internal Medicine Medical Oncology
DX: C90.00 Multiple myeloma not having achieved remission (principal)
CPT/HCPCS: 36415; 80053; 85025

== ENCOUNTER 2023-03-09 10:13 | Outpatient (REF) | payer OTHER, SELFPAY ==
[2023-03-09 11:55] LABS: Hematocrit 27.4 % (37.0-47.0); Hemoglobin 8.6 g/dl (12.0-16.0); Mean Corpuscular HGB Conc 31.4 g/dl (31.0-35.0); Mean Corpuscular Hemoglobin 31.2 pg (27.0-33.0); Mean Corpuscular Volume 99.3 fL (80.0-98.0); Mean Platelet Volume 11.5 fL (9.4-12.3); Platelet Count 100 X10*3/uL (160-400); Red Blood Count 2.76 X10*6/uL (4.20-5.50); Red Cell Distribution Width 18.7 % (11.0-16.0); White Blood Count 4.2 X10*3/uL (4.8-10.8)
[2023-03-09 12:24] LABS: Alanine Aminotransferase < 5 U/L (0-31); Albumin Level 2.7 g/dL (3.5-5.0); Alkaline Phosphatase 54 U/L (39-117); Anion Gap 12 (12-20); Aspartate Amino Transferase 10 U/L (5-31); Bilirubin Total 0.6 mg/dL (0.0-1.0); Blood Urea Nitrogen 18 mg/dL (9-16); Calcium 9.4 mg/dL (8.4-10.2); Carbon Dioxide 25 mmol/L (22-29); Chloride 110 mmol/L (96-108); Estimated Glomerular Filt Rate 36; Glucose Random 85 mg/dL (60-115); Potassium 3.7 mmol/L (3.3-5.1); Sodium 143 mmol/L (135-145); Total Protein 5.2 g/dL (6.5-8.0)
[2023-03-09 12:46] LABS: Band Neutrophils Percent 6 % (3-5); Eosinophils Absolute Manual 0.1 X10*3/uL (0.0-0.4); Eosinophils Percent Manual 2 % (0-4); Lymphocytes Absolute Manual 0.8 X10*3/uL (1.2-4.9); Lymphocytes Percent Manual 20 % (20-40); Monocytes Absolute Manual 0.2 X10*3/uL (0.1-1.2); Monocytes Percent Manual 5 % (2-11); Neutrophils Absolute Manual 3.1 X10*3/uL (2.0-8.3); Neutrophils Percent Manual 67 % (45-73)
[2023-03-09 12:47] LABS: Platelet Estimate DECREASED (NORMAL); Platelet Morphology Comment NORMAL
[2023-03-09 12:49] LABS: RBC Morphology NOTED
[2023-03-09 12:50] LABS: Tear Drop Cells 1+ (0-2) /OIF
== END 2023-03-09 10:14 | disposition home or self-care (01) ==
LOC: HO.LHD 10:13
PROVIDERS: Visit Provider Internal Medicine Medical Oncology
DX: C90.00 Multiple myeloma not having achieved remission (principal)
CPT/HCPCS: 36415; 80053; 85007; 85025; 85027

== ENCOUNTER 2023-03-16 07:44 | Outpatient (REF) | payer OTHER, SELFPAY ==
[2023-03-16 10:52] LABS: Hemoglobin 8.9 g/dl (12.0-16.0); Mean Corpuscular HGB Conc 31.8 g/dl (31.0-35.0); Mean Corpuscular Hemoglobin 32.1 pg (27.0-33.0); Mean Corpuscular Volume 101.1 fL (80.0-98.0); Mean Platelet Volume 12.6 fL (9.4-12.3); Platelet Count 110 X10*3/uL (160-400); Red Blood Count 2.77 X10*6/uL (4.20-5.50); Red Cell Distribution Width 16.9 % (11.0-16.0)
[2023-03-16 11:06] LABS: WBC ABN SCTR FOR CBC 1
[2023-03-16 11:09] LABS: Alanine Aminotransferase 12 U/L (0-31); Albumin Level 3.1 g/dL (3.5-5.0); Alkaline Phosphatase 72 U/L (39-117); Anion Gap 14 (12-20); Aspartate Amino Transferase 10 U/L (5-31); Bilirubin Total 0.4 mg/dL (0.0-1.0); Blood Urea Nitrogen 15 mg/dL (9-16); Calcium 8.6 mg/dL (8.4-10.2); Carbon Dioxide 21 mmol/L (22-29); Chloride 109 mmol/L (96-108); Estimated Glomerular Filt Rate 47; Glucose Random 97 mg/dL (60-115); Potassium 3.2 mmol/L (3.3-5.1); Sodium 141 mmol/L (135-145); Total Protein 5.9 g/dL (6.5-8.0)
[2023-03-16 11:37] LABS: Band Neutrophils Percent 16 % (3-5); Basophils Percent Manual 1 % (0-2); Eosinophils Percent Manual 6 % (0-4); Lymphocytes Percent Manual 25 % (20-40); Monocytes Percent Manual 3 % (2-11); Neutrophils Percent Manual 49 % (45-73)
[2023-03-16 11:38] LABS: RBC Morphology NOTED
[2023-03-16 11:39] LABS: Burr Cells 1+ (0-2) /OIF; Macrocytosis 1+ (5-14) /OIF; Ovalocytes 1+ (5-14) /OIF; Tear Drop Cells 1+ (0-2) /OIF
[2023-03-16 11:41] LABS: Dohle Bodies PRESENT; Hypochromasia 1+ (5-14) /OIF
[2023-03-16 11:42] LABS: Large Platelet PRESENT; Platelet Estimate DECREASED (NORMAL); Platelet Morphology Comment NOTED
[2023-03-16 12:17] LABS: Eosinophils Absolute Manual 0.3 X10*3/uL (0.0-0.4); Lymphocytes Absolute Manual 1.2 X10*3/uL (1.2-4.9); Monocytes Absolute Manual 0.1 X10*3/uL (0.1-1.2); Neutrophils Absolute Manual 3.1 X10*3/uL (2.0-8.3); White Blood Count 4.8 X10*3/uL (4.8-10.8)
== END 2023-03-16 07:45 | disposition home or self-care (01) ==
LOC: HO.LHD 07:44
PROVIDERS: Visit Provider Internal Medicine Medical Oncology
DX: C90.00 Multiple myeloma not having achieved remission (principal)
CPT/HCPCS: 36415; 80053; 85007; 85025; 85027

== ENCOUNTER 2023-03-23 07:34 | Outpatient (REF) | payer OTHER, SELFPAY ==
[2023-03-23 11:02] LABS: MANUAL DIFF FLAG NO
[2023-03-23 11:11] LABS: Eosinophils Absolute Auto 0.3 X10*3/uL (0.0-0.4); Eosinophils Percent Auto 9.2 % (0-4); Hematocrit 27.6 % (37.0-47.0); Hemoglobin 8.6 g/dl (12.0-16.0); Imm Gran Abs Auto 0.02 X10*3/uL (0.00-0.03); Imm Gran Pct Auto 0.7 % (0.0-0.4); Lymphocytes Absolute Auto 1.2 X10*3/uL (1.2-4.9); Lymphocytes Percent Auto 38.6 % (20-40); Mean Corpuscular HGB Conc 31.2 g/dl (31.0-35.0); Mean Corpuscular Hemoglobin 31.5 pg (27.0-33.0); Mean Corpuscular Volume 101.1 fL (80.0-98.0); Monocytes Absolute Auto 0.3 X10*3/uL (0.1-1.2); Monocytes Percent Auto 8.9 % (2-11); Neutrophils Absolute Auto 1.3 x10*3/uL (2.0-8.3); Neutrophils Percent Auto 41.6 % (45-73); Platelet Count 167 X10*3/uL (160-400); Red Blood Count 2.73 X10*6/uL (4.20-5.50); Red Cell Distribution Width 17.5 % (11.0-16.0)
[2023-03-23 11:28] LABS: Alanine Aminotransferase 7 U/L (0-31); Albumin Level 2.8 g/dL (3.5-5.0); Alkaline Phosphatase 72 U/L (39-117); Anion Gap 9 (12-20); Aspartate Amino Transferase 22 U/L (5-31); Bilirubin Total 0.3 mg/dL (0.0-1.0); Blood Urea Nitrogen 7 mg/dL (9-16); Carbon Dioxide 21 mmol/L (22-29); Chloride 116 mmol/L (96-108); Estimated Glomerular Filt Rate 49; Glucose Random 97 mg/dL (60-115); Potassium 4.7 mmol/L (3.3-5.1); Sodium 141 mmol/L (135-145); Total Protein 5.9 g/dL (6.5-8.0)
== END 2023-03-23 07:35 | disposition home or self-care (01) ==
LOC: HO.LHD 07:34
PROVIDERS: Visit Provider Internal Medicine Medical Oncology
DX: C90.00 Multiple myeloma not having achieved remission (principal)
CPT/HCPCS: 36415; 80053; 85025

== ENCOUNTER 2023-03-30 06:59 | Outpatient (REF) | payer OTHER, SELFPAY ==
[2023-03-30 10:27] LABS: MANUAL DIFF FLAG NO
[2023-03-30 10:29] LABS: Basophils Absolute Auto 0.1 X10*3/uL (0.0-0.2); Basophils Percent Auto 2.8 % (0-2); Eosinophils Absolute Auto 0.2 X10*3/uL (0.0-0.4); Eosinophils Percent Auto 6.8 % (0-4); Hematocrit 26.1 % (37.0-47.0); Hemoglobin 8.2 g/dl (12.0-16.0); Imm Gran Abs Auto 0.05 X10*3/uL (0.00-0.03); Lymphocytes Absolute Auto 0.7 X10*3/uL (1.2-4.9); Lymphocytes Percent Auto 29.5 % (20-40); Mean Corpuscular HGB Conc 31.4 g/dl (31.0-35.0); Mean Corpuscular Hemoglobin 31.5 pg (27.0-33.0); Mean Corpuscular Volume 100.4 fL (80.0-98.0); Mean Platelet Volume 11.7 fL (9.4-12.3); Monocytes Absolute Auto 0.3 X10*3/uL (0.1-1.2); Monocytes Percent Auto 11.6 % (2-11); Neutrophils Absolute Auto 1.2 x10*3/uL (2.0-8.3); Neutrophils Percent Auto 47.3 % (45-73); Platelet Count 193 X10*3/uL (160-400); Red Cell Distribution Width 17.3 % (11.0-16.0)
[2023-03-30 10:33] LABS: White Blood Count 2.5 X10*3/uL (4.8-10.8)
[2023-03-30 11:28] LABS: Alanine Aminotransferase < 5 U/L (0-31); Albumin Level 2.7 g/dL (3.5-5.0); Alkaline Phosphatase 58 U/L (39-117); Anion Gap 8 (12-20); Aspartate Amino Transferase 11 U/L (5-31); Bilirubin Total 0.2 mg/dL (0.0-1.0); Blood Urea Nitrogen 14 mg/dL (9-16); Calcium 8.3 mg/dL (8.4-10.2); Carbon Dioxide 26 mmol/L (22-29); Chloride 111 mmol/L (96-108); Estimated Glomerular Filt Rate 54; Glucose Random 99 mg/dL (60-115); Potassium 3.7 mmol/L (3.3-5.1); Sodium 141 mmol/L (135-145); Total Protein 5.4 g/dL (6.5-8.0)
== END 2023-03-30 07:00 | disposition home or self-care (01) ==
LOC: HO.LHD 06:59
PROVIDERS: Visit Provider Internal Medicine Medical Oncology
DX: C90.00 Multiple myeloma not having achieved remission (principal)
CPT/HCPCS: 36415; 80053; 85025

== ENCOUNTER 2023-04-06 06:23 | Outpatient (REF) | payer OTHER, SELFPAY ==
[2023-04-06 09:46] LABS: MANUAL DIFF FLAG NO
[2023-04-06 09:49] LABS: Basophils Absolute Auto 0.1 X10*3/uL (0.0-0.2); Basophils Percent Auto 1.4 % (0-2); Eosinophils Absolute Auto 0.4 X10*3/uL (0.0-0.4); Eosinophils Percent Auto 8.2 % (0-4); Hematocrit 26.3 % (37.0-47.0); Hemoglobin 8.1 g/dl (12.0-16.0); Imm Gran Abs Auto 0.04 X10*3/uL (0.00-0.03); Imm Gran Pct Auto 0.8 % (0.0-0.4); Lymphocytes Percent Auto 20.3 % (20-40); Mean Corpuscular HGB Conc 30.8 g/dl (31.0-35.0); Mean Corpuscular Hemoglobin 31.8 pg (27.0-33.0); Mean Corpuscular Volume 103.1 fL (80.0-98.0); Mean Platelet Volume 11.7 fL (9.4-12.3); Monocytes Absolute Auto 0.5 X10*3/uL (0.1-1.2); Monocytes Percent Auto 10.1 % (2-11); Neutrophils Percent Auto 59.2 % (45-73); Platelet Count 143 X10*3/uL (160-400); Red Blood Count 2.55 X10*6/uL (4.20-5.50); Red Cell Distribution Width 17.4 % (11.0-16.0)
[2023-04-06 10:15] LABS: Alanine Aminotransferase < 5 U/L (0-31); Albumin Level 2.5 g/dL (3.5-5.0); Alkaline Phosphatase 50 U/L (39-117); Anion Gap 8 (12-20); Aspartate Amino Transferase 11 U/L (5-31); Bilirubin Total 0.3 mg/dL (0.0-1.0); Blood Urea Nitrogen 9 mg/dL (9-16); Carbon Dioxide 21 mmol/L (22-29); Chloride 119 mmol/L (96-108); Estimated Glomerular Filt Rate > 60; Glucose Random 87 mg/dL (60-115); Potassium 3.1 mmol/L (3.3-5.1); Sodium 145 mmol/L (135-145); Total Protein 4.8 g/dL (6.5-8.0)
== END 2023-04-06 06:24 | disposition home or self-care (01) ==
LOC: HO.LHD 06:23
PROVIDERS: Visit Provider Internal Medicine Medical Oncology
DX: C90.00 Multiple myeloma not having achieved remission (principal)
CPT/HCPCS: 36415; 80053; 85025

== ENCOUNTER 2023-04-13 06:16 | Outpatient (REF) | payer OTHER, SELFPAY ==
[2023-04-13 11:38] LABS: Hematocrit 29.8 % (37.0-47.0); Mean Corpuscular HGB Conc 30.2 g/dl (31.0-35.0); Mean Corpuscular Hemoglobin 31.4 pg (27.0-33.0); Mean Corpuscular Volume 103.8 fL (80.0-98.0); Mean Platelet Volume 12.8 fL (9.4-12.3); Platelet Count 113 X10*3/uL (160-400); Red Blood Count 2.87 X10*6/uL (4.20-5.50); Red Cell Distribution Width 17.5 % (11.0-16.0)
[2023-04-13 11:48] LABS: Alanine Aminotransferase < 5 U/L (0-31); Albumin Level 2.9 g/dL (3.5-5.0); Alkaline Phosphatase 62 U/L (39-117); Anion Gap 13 (12-20); Aspartate Amino Transferase 11 U/L (5-31); Bilirubin Total 0.5 mg/dL (0.0-1.0); Blood Urea Nitrogen 7 mg/dL (9-16); Calcium 7.9 mg/dL (8.4-10.2); Carbon Dioxide 18 mmol/L (22-29); Chloride 117 mmol/L (96-108); Estimated Glomerular Filt Rate > 60; Glucose Random 89 mg/dL (60-115); Potassium 3.7 mmol/L (3.3-5.1); Sodium 144 mmol/L (135-145); Total Protein 5.7 g/dL (6.5-8.0)
[2023-04-13 11:49] LABS: WBC ABN SCTR FOR CBC 1
[2023-04-13 11:50] LABS: White Blood Count 4.5 X10*3/uL (4.8-10.8)
[2023-04-13 11:59] LABS: Band Neutrophils Percent 12 % (3-5); Basophils Abs Manual 0.1 X10*3/uL (0.0-0.2); Basophils Percent Manual 2 % (0-2); Eosinophils Absolute Manual 0.3 X10*3/uL (0.0-0.4); Eosinophils Percent Manual 7 % (0-4); Lymphocytes Absolute Manual 1.1 X10*3/uL (1.2-4.9); Lymphocytes Percent Manual 24 % (20-40); Monocytes Absolute Manual 0.3 X10*3/uL (0.1-1.2); Monocytes Percent Manual 6 % (2-11); Neutrophils Absolute Manual 2.7 X10*3/uL (2.0-8.3); Neutrophils Percent Manual 49 % (45-73)
[2023-04-13 12:02] LABS: Acanthocytes 1+ (0-2) /OIF; Macrocytosis 1+ (5-14) /OIF; Ovalocytes 1+ (5-14) /OIF; Platelet Estimate DECREASED (NORMAL); Platelet Morphology Comment NORMAL; RBC Morphology NOTED
[2023-04-13 12:03] LABS: Burr Cells 1+ (0-2) /OIF; Dohle Bodies PRESENT; Pappenheimer Bodies PRESENT; Polychromasia 1+ (0-2) /OIF; Tear Drop Cells 1+ (0-2) /OIF
== END 2023-04-13 06:17 | disposition home or self-care (01) ==
LOC: HO.LHD 06:16
PROVIDERS: Visit Provider Internal Medicine Medical Oncology
DX: C90.00 Multiple myeloma not having achieved remission (principal)
CPT/HCPCS: 36415; 80053; 85007; 85027

== ENCOUNTER 2023-04-20 07:39 | Outpatient (REF) | payer OTHER, SELFPAY ==
[2023-04-20 10:42] LABS: Hematocrit 27.6 % (37.0-47.0); Hemoglobin 8.7 g/dl (12.0-16.0); Mean Corpuscular HGB Conc 31.5 g/dl (31.0-35.0); Mean Corpuscular Hemoglobin 31.4 pg (27.0-33.0); Mean Corpuscular Volume 99.6 fL (80.0-98.0); Mean Platelet Volume 11.7 fL (9.4-12.3); Platelet Count 117 X10*3/uL (160-400); Red Blood Count 2.77 X10*6/uL (4.20-5.50); Red Cell Distribution Width 17.1 % (11.0-16.0)
[2023-04-20 12:20] LABS: Band Neutrophils Percent 1 % (3-5); Basophils Percent Manual 2 % (0-2); Eosinophils Absolute Manual 0.2 X10*3/uL (0.0-0.4); Eosinophils Percent Manual 10 % (0-4); Lymphocytes Absolute Manual 1.1 X10*3/uL (1.2-4.9); Lymphocytes Percent Manual 54 % (20-40); Monocytes Absolute Manual 0.1 X10*3/uL (0.1-1.2); Monocytes Percent Manual 4 % (2-11); Neutrophils Absolute Manual 0.6 X10*3/uL (2.0-8.3); Neutrophils Percent Manual 29 % (45-73)
[2023-04-20 12:21] LABS: Macrocytosis 1+ (5-14) /OIF; Platelet Estimate SLIGHTLY DECREASED (NORMAL); RBC Morphology NOTED
[2023-04-20 12:22] LABS: Large Platelet PRESENT; Ovalocytes 1+ (5-14) /OIF; Platelet Morphology Comment NOTED
== END 2023-04-20 07:40 | disposition home or self-care (01) ==
LOC: HO.LHD 07:39
PROVIDERS: Internal Medicine Medical Oncology; Visit Provider Family Medicine
DX: C90.00 Multiple myeloma not having achieved remission (principal)
CPT/HCPCS: 36415; 80053; 85007; 85025; 85027

== ENCOUNTER 2023-04-27 06:16 | Outpatient (REF) | payer OTHER, SELFPAY ==
[2023-04-27 11:12] LABS: Basophils Absolute Auto 0.1 X10*3/uL (0.0-0.2); Basophils Percent Auto 2.3 % (0-2); Eosinophils Absolute Auto 0.1 X10*3/uL (0.0-0.4); Eosinophils Percent Auto 4.7 % (0-4); Hematocrit 28.8 % (37.0-47.0); Hemoglobin 9.1 g/dl (12.0-16.0); Lymphocytes Absolute Auto 1.3 X10*3/uL (1.2-4.9); Lymphocytes Percent Auto 48.6 % (20-40); MANUAL DIFF FLAG SCAN; Mean Corpuscular HGB Conc 31.6 g/dl (31.0-35.0); Mean Corpuscular Hemoglobin 31.4 pg (27.0-33.0); Mean Corpuscular Volume 99.3 fL (80.0-98.0); Mean Platelet Volume 10.6 fL (9.4-12.3); Monocytes Absolute Auto 0.3 X10*3/uL (0.1-1.2); Monocytes Percent Auto 11.3 % (2-11); Neutrophils Absolute Auto 0.9 x10*3/uL (2.0-8.3); Neutrophils Percent Auto 33.1 % (45-73); Platelet Count 152 X10*3/uL (160-400); Red Cell Distribution Width 16.5 % (11.0-16.0); SCAN SMEAR FLAG 1; White Blood Count 2.6 X10*3/uL (4.8-10.8)
[2023-04-27 11:29] LABS: Alanine Aminotransferase < 5 U/L (0-31); Alkaline Phosphatase 52 U/L (39-117); Anion Gap 11 (12-20); Aspartate Amino Transferase 11 U/L (5-31); Bilirubin Total 0.3 mg/dL (0.0-1.0); Blood Urea Nitrogen 13 mg/dL (9-16); Calcium 8.7 mg/dL (8.4-10.2); Carbon Dioxide 21 mmol/L (22-29); Chloride 113 mmol/L (96-108); Estimated Glomerular Filt Rate 53; Glucose Random 75 mg/dL (60-115); Potassium 3.6 mmol/L (3.3-5.1); Sodium 141 mmol/L (135-145); Total Protein 5.6 g/dL (6.5-8.0)
[2023-04-27 11:48] LABS: SLIDE REVIEW VERIFIED
== END 2023-04-27 06:17 | disposition home or self-care (01) ==
LOC: HO.LHD 06:16
PROVIDERS: Visit Provider Internal Medicine Medical Oncology
DX: C90.00 Multiple myeloma not having achieved remission (principal)
CPT/HCPCS: 36415; 80053; 85025

== ENCOUNTER 2023-05-04 06:20 | Outpatient (REF) | payer OTHER, SELFPAY ==
[2023-05-04 10:04] LABS: MANUAL DIFF FLAG NO
[2023-05-04 10:10] LABS: Basophils Absolute Auto 0.1 X10*3/uL (0.0-0.2); Basophils Percent Auto 1.2 % (0-2); Eosinophils Absolute Auto 0.2 X10*3/uL (0.0-0.4); Eosinophils Percent Auto 5.1 % (0-4); Hematocrit 27.4 % (37.0-47.0); Hemoglobin 8.5 g/dl (12.0-16.0); Imm Gran Abs Auto 0.04 X10*3/uL (0.00-0.03); Lymphocytes Absolute Auto 1.2 X10*3/uL (1.2-4.9); Lymphocytes Percent Auto 28.6 % (20-40); Mean Corpuscular Hemoglobin 31.6 pg (27.0-33.0); Mean Corpuscular Volume 101.9 fL (80.0-98.0); Mean Platelet Volume 11.5 fL (9.4-12.3); Monocytes Absolute Auto 0.3 X10*3/uL (0.1-1.2); Neutrophils Absolute Auto 2.3 x10*3/uL (2.0-8.3); Neutrophils Percent Auto 56.1 % (45-73); Platelet Count 136 X10*3/uL (160-400); Red Blood Count 2.69 X10*6/uL (4.20-5.50); Red Cell Distribution Width 16.4 % (11.0-16.0); White Blood Count 4.1 X10*3/uL (4.8-10.8)
[2023-05-04 10:32] LABS: Alanine Aminotransferase < 5 U/L (0-31); Albumin Level 2.8 g/dL (3.5-5.0); Alkaline Phosphatase 65 U/L (39-117); Anion Gap 9 (12-20); Aspartate Amino Transferase 10 U/L (5-31); Bilirubin Total 0.1 mg/dL (0.0-1.0); Blood Urea Nitrogen 15 mg/dL (9-16); Calcium 7.8 mg/dL (8.4-10.2); Carbon Dioxide 22 mmol/L (22-29); Chloride 117 mmol/L (96-108); Estimated Glomerular Filt Rate 53; Glucose Random 87 mg/dL (60-115); Potassium 4.1 mmol/L (3.3-5.1); Sodium 144 mmol/L (135-145); Total Protein 5.2 g/dL (6.5-8.0)
== END 2023-05-04 06:21 | disposition home or self-care (01) ==
LOC: HO.LHD 06:20
PROVIDERS: Family Medicine; Visit Provider Internal Medicine Medical Oncology
DX: C90.00 Multiple myeloma not having achieved remission (principal)
CPT/HCPCS: 36415; 80053; 85025

== ENCOUNTER 2023-05-11 07:40 | Outpatient (REF) | payer OTHER, SELFPAY ==
[2023-05-11 10:11] LABS: MANUAL DIFF FLAG NO
[2023-05-11 10:14] LABS: Basophils Percent Auto 0.6 % (0-2); Eosinophils Absolute Auto 0.2 X10*3/uL (0.0-0.4); Eosinophils Percent Auto 6.4 % (0-4); Hematocrit 28.1 % (37.0-47.0); Hemoglobin 8.8 g/dl (12.0-16.0); Imm Gran Abs Auto 0.01 X10*3/uL (0.00-0.03); Imm Gran Pct Auto 0.3 % (0.0-0.4); Lymphocytes Absolute Auto 1.2 X10*3/uL (1.2-4.9); Lymphocytes Percent Auto 35.6 % (20-40); Mean Corpuscular HGB Conc 31.3 g/dl (31.0-35.0); Mean Corpuscular Hemoglobin 30.7 pg (27.0-33.0); Mean Corpuscular Volume 97.9 fL (80.0-98.0); Mean Platelet Volume 10.9 fL (9.4-12.3); Monocytes Absolute Auto 0.3 X10*3/uL (0.1-1.2); Monocytes Percent Auto 9.3 % (2-11); Neutrophils Absolute Auto 1.6 x10*3/uL (2.0-8.3); Neutrophils Percent Auto 47.8 % (45-73); Platelet Count 136 X10*3/uL (160-400); Red Blood Count 2.87 X10*6/uL (4.20-5.50); Red Cell Distribution Width 15.9 % (11.0-16.0); White Blood Count 3.4 X10*3/uL (4.8-10.8)
[2023-05-11 11:05] LABS: Alanine Aminotransferase < 5 U/L (0-31); Albumin Level 2.9 g/dL (3.5-5.0); Alkaline Phosphatase 65 U/L (39-117); Anion Gap 10 (12-20); Aspartate Amino Transferase 8 U/L (5-31); Bilirubin Total 0.2 mg/dL (0.0-1.0); Blood Urea Nitrogen 8 mg/dL (9-16); Calcium 8.4 mg/dL (8.4-10.2); Carbon Dioxide 22 mmol/L (22-29); Chloride 114 mmol/L (96-108); Estimated Glomerular Filt Rate 58; Glucose Random 84 mg/dL (60-115); Potassium 3.7 mmol/L (3.3-5.1); Sodium 142 mmol/L (135-145); Total Protein 5.6 g/dL (6.5-8.0)
== END 2023-05-11 07:41 | disposition home or self-care (01) ==
LOC: HO.LHD 07:40
PROVIDERS: Visit Provider Internal Medicine Medical Oncology
DX: C90.00 Multiple myeloma not having achieved remission (principal)
CPT/HCPCS: 36415; 80053; 85025

== ENCOUNTER 2023-05-18 06:50 | Outpatient (REF) | payer OTHER, SELFPAY ==
[2023-05-18 11:38] LABS: MANUAL DIFF FLAG NO
[2023-05-18 12:02] LABS: Basophils Percent Auto 0.3 % (0-2); Eosinophils Absolute Auto 0.3 X10*3/uL (0.0-0.4); Eosinophils Percent Auto 7.1 % (0-4); Hematocrit 30.8 % (37.0-47.0); Hemoglobin 9.6 g/dl (12.0-16.0); Imm Gran Abs Auto 0.01 X10*3/uL (0.00-0.03); Imm Gran Pct Auto 0.3 % (0.0-0.4); Lymphocytes Percent Auto 28.1 % (20-40); Mean Corpuscular HGB Conc 31.2 g/dl (31.0-35.0); Mean Corpuscular Hemoglobin 30.9 pg (27.0-33.0); Mean Platelet Volume 11.4 fL (9.4-12.3); Monocytes Absolute Auto 0.3 X10*3/uL (0.1-1.2); Monocytes Percent Auto 8.8 % (2-11); Neutrophils Percent Auto 55.4 % (45-73); Platelet Count 177 X10*3/uL (160-400); Red Blood Count 3.11 X10*6/uL (4.20-5.50); Red Cell Distribution Width 15.9 % (11.0-16.0); White Blood Count 3.5 X10*3/uL (4.8-10.8)
[2023-05-18 12:55] LABS: Alanine Aminotransferase < 5 U/L (0-31); Albumin Level 3.1 g/dL (3.5-5.0); Alkaline Phosphatase 68 U/L (39-117); Anion Gap 9 (12-20); Aspartate Amino Transferase 10 U/L (5-31); Bilirubin Total 0.1 mg/dL (0.0-1.0); Blood Urea Nitrogen 18 mg/dL (9-16); Calcium 9.3 mg/dL (8.4-10.2); Carbon Dioxide 26 mmol/L (22-29); Chloride 112 mmol/L (96-108); Estimated Glomerular Filt Rate 49; Glucose Random 99 mg/dL (60-115); Potassium 4.2 mmol/L (3.3-5.1); Sodium 143 mmol/L (135-145); Total Protein 5.8 g/dL (6.5-8.0)
== END 2023-05-18 06:51 | disposition home or self-care (01) ==
LOC: HO.LHD 06:50
PROVIDERS: Visit Provider Internal Medicine Medical Oncology
DX: C90.00 Multiple myeloma not having achieved remission (principal)
CPT/HCPCS: 36415; 80053; 85025

== ENCOUNTER 2023-05-25 06:58 | Outpatient (REF) | payer OTHER, SELFPAY ==
[2023-05-25 09:59] LABS: MANUAL DIFF FLAG NO
[2023-05-25 10:07] LABS: Basophils Percent Auto 0.5 % (0-2); Eosinophils Absolute Auto 0.2 X10*3/uL (0.0-0.4); Eosinophils Percent Auto 4.1 % (0-4); Hemoglobin 8.9 g/dl (12.0-16.0); Imm Gran Abs Auto 0.01 X10*3/uL (0.00-0.03); Imm Gran Pct Auto 0.2 % (0.0-0.4); Lymphocytes Absolute Auto 1.2 X10*3/uL (1.2-4.9); Lymphocytes Percent Auto 26.9 % (20-40); Mean Corpuscular HGB Conc 30.7 g/dl (31.0-35.0); Mean Corpuscular Hemoglobin 30.3 pg (27.0-33.0); Mean Corpuscular Volume 98.6 fL (80.0-98.0); Mean Platelet Volume 11.1 fL (9.4-12.3); Monocytes Absolute Auto 0.3 X10*3/uL (0.1-1.2); Monocytes Percent Auto 6.6 % (2-11); Neutrophils Absolute Auto 2.7 x10*3/uL (2.0-8.3); Neutrophils Percent Auto 61.7 % (45-73); Platelet Count 159 X10*3/uL (160-400); Red Blood Count 2.94 X10*6/uL (4.20-5.50); White Blood Count 4.4 X10*3/uL (4.8-10.8)
[2023-05-25 10:20] LABS: Alanine Aminotransferase < 5 U/L (0-31); Albumin Level 2.9 g/dL (3.5-5.0); Alkaline Phosphatase 55 U/L (39-117); Anion Gap 6 (12-20); Aspartate Amino Transferase 11 U/L (5-31); Bilirubin Total 0.2 mg/dL (0.0-1.0); Blood Urea Nitrogen 10 mg/dL (9-16); Calcium 7.9 mg/dL (8.4-10.2); Carbon Dioxide 25 mmol/L (22-29); Chloride 117 mmol/L (96-108); Estimated Glomerular Filt Rate > 60; Glucose Random 94 mg/dL (60-115); Potassium 3.8 mmol/L (3.3-5.1); Sodium 144 mmol/L (135-145); Total Protein 5.4 g/dL (6.5-8.0)
== END 2023-05-25 06:59 | disposition home or self-care (01) ==
LOC: HO.LHD 06:58
PROVIDERS: Visit Provider Internal Medicine Medical Oncology
DX: Z13.89 Encounter for screening for other disorder (principal)
CPT/HCPCS: 36415; 80053; 85025

== ENCOUNTER 2023-06-01 06:50 | Outpatient (REF) | payer OTHER, SELFPAY ==
[2023-06-01 09:44] LABS: Basophils Percent Auto 0.3 % (0-2); Eosinophils Absolute Auto 0.1 X10*3/uL (0.0-0.4); Eosinophils Percent Auto 2.8 % (0-4); Hemoglobin 8.9 g/dl (12.0-16.0); Imm Gran Abs Auto 0.04 X10*3/uL (0.00-0.03); Imm Gran Pct Auto 1.1 % (0.0-0.4); Lymphocytes Absolute Auto 1.3 X10*3/uL (1.2-4.9); Lymphocytes Percent Auto 37.3 % (20-40); MANUAL DIFF FLAG SCAN; Mean Corpuscular HGB Conc 31.8 g/dl (31.0-35.0); Mean Corpuscular Volume 97.6 fL (80.0-98.0); Monocytes Absolute Auto 0.3 X10*3/uL (0.1-1.2); Monocytes Percent Auto 9.5 % (2-11); Neutrophils Absolute Auto 1.8 x10*3/uL (2.0-8.3); PLT CLUMP 1; Red Blood Count 2.87 X10*6/uL (4.20-5.50); SCAN SMEAR FLAG 1
[2023-06-01 09:45] LABS: White Blood Count 3.6 X10*3/uL (4.8-10.8)
[2023-06-01 10:02] LABS: Platelet Count 66 X10*3/uL (160-400); SLIDE REVIEW VERIFIED
== END 2023-06-01 06:51 | disposition home or self-care (01) ==
LOC: HO.LHD 06:50
PROVIDERS: Visit Provider Internal Medicine Medical Oncology
DX: Z00.01 Encounter for general adult medical examination with abnormal findings (principal); Z78.0 Asymptomatic menopausal state
CPT/HCPCS: 36415; 80053; 85025

== ENCOUNTER 2023-06-08 06:42 | Outpatient (REF) | payer OTHER, SELFPAY ==
[2023-06-08 11:01] LABS: Alanine Aminotransferase < 5 U/L (0-31); Albumin Level 3.3 g/dL (3.5-5.0); Alkaline Phosphatase 56 U/L (39-117); Anion Gap 12 (12-20); Aspartate Amino Transferase 12 U/L (5-31); Bilirubin Total 0.3 mg/dL (0.0-1.0); Blood Urea Nitrogen 11 mg/dL (9-16); Calcium 9.4 mg/dL (8.4-10.2); Carbon Dioxide 26 mmol/L (22-29); Chloride 110 mmol/L (96-108); Estimated Glomerular Filt Rate 40; Glucose Random 99 mg/dL (60-115); Potassium 3.2 mmol/L (3.3-5.1); Sodium 145 mmol/L (135-145)
[2023-06-08 11:54] LABS: MANUAL DIFF FLAG NO
[2023-06-08 12:02] LABS: Basophils Percent Auto 0.4 % (0-2); Eosinophils Absolute Auto 0.2 X10*3/uL (0.0-0.4); Hematocrit 29.3 % (37.0-47.0); Hemoglobin 9.4 g/dl (12.0-16.0); Imm Gran Abs Auto 0.03 X10*3/uL (0.00-0.03); Imm Gran Pct Auto 0.6 % (0.0-0.4); Lymphocytes Absolute Auto 0.8 X10*3/uL (1.2-4.9); Lymphocytes Percent Auto 15.1 % (20-40); Mean Corpuscular HGB Conc 32.1 g/dl (31.0-35.0); Mean Corpuscular Hemoglobin 31.4 pg (27.0-33.0); Mean Platelet Volume 12.2 fL (9.4-12.3); Monocytes Absolute Auto 0.2 X10*3/uL (0.1-1.2); Monocytes Percent Auto 3.2 % (2-11); Neutrophils Absolute Auto 4.1 x10*3/uL (2.0-8.3); Neutrophils Percent Auto 77.7 % (45-73); Platelet Count 144 X10*3/uL (160-400); Red Blood Count 2.99 X10*6/uL (4.20-5.50); Red Cell Distribution Width 15.1 % (11.0-16.0); White Blood Count 5.3 X10*3/uL (4.8-10.8)
== END 2023-06-08 06:43 | disposition home or self-care (01) ==
LOC: HO.LHD 06:42
PROVIDERS: Visit Provider Internal Medicine Medical Oncology
DX: C90.00 Multiple myeloma not having achieved remission (principal)
CPT/HCPCS: 36415; 80053; 85025

== ENCOUNTER 2023-06-15 07:15 | Outpatient (REF) | payer OTHER, SELFPAY | END 2023-06-15 07:16 | disposition home or self-care (01) | LOC: HO.LHD 07:15 | PROVIDERS: Visit Provider Internal Medicine Medical Oncology | DX: Z13.89 Encounter for screening for other disorder (principal) ==

== ENCOUNTER 2023-06-22 08:01 | Outpatient (REF) | payer OTHER, SELFPAY ==
[2023-06-22 11:07] LABS: Basophils Percent Auto 0.9 % (0-2); Eosinophils Absolute Auto 0.2 X10*3/uL (0.0-0.4); Eosinophils Percent Auto 9.7 % (0-4); Hematocrit 30.5 % (37.0-47.0); Hemoglobin 9.5 g/dl (12.0-16.0); Imm Gran Abs Auto 0.01 X10*3/uL (0.00-0.03); Imm Gran Pct Auto 0.4 % (0.0-0.4); Lymphocytes Absolute Auto 0.9 X10*3/uL (1.2-4.9); Lymphocytes Percent Auto 40.1 % (20-40); MANUAL DIFF FLAG SCAN; Mean Corpuscular HGB Conc 31.1 g/dl (31.0-35.0); Mean Corpuscular Hemoglobin 30.6 pg (27.0-33.0); Mean Corpuscular Volume 98.4 fL (80.0-98.0); Mean Platelet Volume 12.2 fL (9.4-12.3); Monocytes Absolute Auto 0.2 X10*3/uL (0.1-1.2); Monocytes Percent Auto 6.6 % (2-11); Neutrophils Percent Auto 42.3 % (45-73); Platelet Count 135 X10*3/uL (160-400); Red Cell Distribution Width 15.6 % (11.0-16.0); SCAN SMEAR FLAG 1
[2023-06-22 11:08] LABS: White Blood Count 2.3 X10*3/uL (4.8-10.8)
[2023-06-22 11:17] LABS: Alanine Aminotransferase 6 U/L (0-31); Albumin Level 2.9 g/dL (3.5-5.0); Alkaline Phosphatase 73 U/L (39-117); Anion Gap 10 (12-20); Aspartate Amino Transferase 11 U/L (5-31); Bilirubin Total 0.4 mg/dL (0.0-1.0); Blood Urea Nitrogen 6 mg/dL (9-16); Calcium 7.1 mg/dL (8.4-10.2); Carbon Dioxide 22 mmol/L (22-29); Chloride 114 mmol/L (96-108); Estimated Glomerular Filt Rate > 60; Glucose Random 101 mg/dL (60-115); Potassium 3.3 mmol/L (3.3-5.1); Sodium 143 mmol/L (135-145); Total Protein 5.6 g/dL (6.5-8.0)
[2023-06-22 11:41] LABS: SLIDE REVIEW VERIFIED
== END 2023-06-22 08:02 | disposition home or self-care (01) ==
LOC: HO.LHD 08:01
PROVIDERS: Visit Provider Internal Medicine Medical Oncology
DX: C90.00 Multiple myeloma not having achieved remission (principal)
CPT/HCPCS: 36415; 80053; 85025

== ENCOUNTER 2023-06-29 07:22 | Outpatient (REF) | payer OTHER, SELFPAY ==
[2023-06-29 13:03] LABS: Hematocrit 31.9 % (37.0-47.0); Hemoglobin 10.1 g/dl (12.0-16.0); Mean Corpuscular HGB Conc 31.7 g/dl (31.0-35.0); Mean Corpuscular Hemoglobin 31.2 pg (27.0-33.0); Mean Corpuscular Volume 98.5 fL (80.0-98.0); Mean Platelet Volume 11.9 fL (9.4-12.3); Platelet Count 194 X10*3/uL (160-400); Red Blood Count 3.24 X10*6/uL (4.20-5.50); Red Cell Distribution Width 16.4 % (11.0-16.0)
[2023-06-29 13:04] LABS: WBC ABN SCTR FOR CBC 1; White Blood Count 4.5 X10*3/uL (4.8-10.8)
[2023-06-29 13:19] LABS: Alanine Aminotransferase < 5 U/L (0-31); Albumin Level 2.9 g/dL (3.5-5.0); Alkaline Phosphatase 83 U/L (39-117); Anion Gap 12 (12-20); Aspartate Amino Transferase 8 U/L (5-31); Bilirubin Total 0.6 mg/dL (0.0-1.0); Blood Urea Nitrogen 8 mg/dL (9-16); Carbon Dioxide 23 mmol/L (22-29); Chloride 109 mmol/L (96-108); Estimated Glomerular Filt Rate 48; Glucose Random 81 mg/dL (60-115); Potassium 3.5 mmol/L (3.3-5.1); Sodium 140 mmol/L (135-145); Total Protein 5.7 g/dL (6.5-8.0)
[2023-06-29 13:28] LABS: Band Neutrophils Percent 7 % (3-5); Basophils Abs Manual 0.1 X10*3/uL (0.0-0.2); Basophils Percent Manual 2 % (0-2); Eosinophils Absolute Manual 0.1 X10*3/uL (0.0-0.4); Eosinophils Percent Manual 3 % (0-4); Lymphocytes Absolute Manual 1.3 X10*3/uL (1.2-4.9); Lymphocytes Percent Manual 29 % (20-40); Monocytes Absolute Manual 0.4 X10*3/uL (0.1-1.2); Monocytes Percent Manual 9 % (2-11); Neutrophils Absolute Manual 2.6 X10*3/uL (2.0-8.3); Neutrophils Percent Manual 50 % (45-73)
[2023-06-29 13:36] LABS: Macrocytosis 1+ (5-14) /OIF; Microcytosis 1+ (5-14) /OIF; Ovalocytes 1+ (5-14) /OIF; RBC Morphology NOTED; Schistocytes 1+ (0-2) /OIF
[2023-06-29 13:37] LABS: Platelet Estimate NORMAL (NORMAL); Platelet Morphology Comment NORMAL; Polychromasia 1+ (0-2) /OIF
== END 2023-06-29 07:23 | disposition home or self-care (01) ==
LOC: HO.LHD 07:22
PROVIDERS: Visit Provider Internal Medicine Medical Oncology
DX: C90.00 Multiple myeloma not having achieved remission (principal)
CPT/HCPCS: 36415; 80053; 85007; 85025; 85027

== ENCOUNTER 2023-07-06 07:14 | Outpatient (REF) | payer OTHER, SELFPAY ==
[2023-07-06 12:01] LABS: MANUAL DIFF FLAG NO
[2023-07-06 12:08] LABS: Basophils Absolute Auto 0.1 X10*3/uL (0.0-0.2); Basophils Percent Auto 1.6 % (0-2); Eosinophils Absolute Auto 0.1 X10*3/uL (0.0-0.4); Eosinophils Percent Auto 1.6 % (0-4); Hematocrit 32.8 % (37.0-47.0); Hemoglobin 10.3 g/dl (12.0-16.0); Imm Gran Abs Auto 0.03 X10*3/uL (0.00-0.03); Imm Gran Pct Auto 0.6 % (0.0-0.4); Lymphocytes Absolute Auto 1.4 X10*3/uL (1.2-4.9); Lymphocytes Percent Auto 29.4 % (20-40); Mean Corpuscular HGB Conc 31.4 g/dl (31.0-35.0); Mean Corpuscular Hemoglobin 29.9 pg (27.0-33.0); Mean Corpuscular Volume 95.3 fL (80.0-98.0); Mean Platelet Volume 11.5 fL (9.4-12.3); Monocytes Absolute Auto 0.3 X10*3/uL (0.1-1.2); Monocytes Percent Auto 5.8 % (2-11); Platelet Count 233 X10*3/uL (160-400); Red Blood Count 3.44 X10*6/uL (4.20-5.50); Red Cell Distribution Width 16.1 % (11.0-16.0); White Blood Count 4.9 X10*3/uL (4.8-10.8)
[2023-07-06 12:35] LABS: Alanine Aminotransferase < 5 U/L (0-31); Albumin Level 3.1 g/dL (3.5-5.0); Alkaline Phosphatase 80 U/L (39-117); Anion Gap 10 (12-20); Aspartate Amino Transferase 11 U/L (5-31); Bilirubin Total 0.5 mg/dL (0.0-1.0); Blood Urea Nitrogen 9 mg/dL (9-16); Calcium 8.5 mg/dL (8.4-10.2); Carbon Dioxide 24 mmol/L (22-29); Chloride 110 mmol/L (96-108); Estimated Glomerular Filt Rate > 60; Glucose Random 76 mg/dL (60-115); Potassium 3.1 mmol/L (3.3-5.1); Sodium 141 mmol/L (135-145); Total Protein 6.2 g/dL (6.5-8.0)
== END 2023-07-06 07:15 | disposition home or self-care (01) ==
LOC: HO.LHD 07:14
PROVIDERS: Visit Provider Internal Medicine Medical Oncology
DX: R77.8 Other specified abnormalities of plasma proteins (principal)
CPT/HCPCS: 36415; 80053; 85025

== ENCOUNTER 2023-07-13 06:58 | Outpatient (REF) | payer OTHER, SELFPAY ==
[2023-07-13 11:13] LABS: MANUAL DIFF FLAG NO
[2023-07-13 11:30] LABS: Basophils Percent Auto 0.8 % (0-2); Eosinophils Absolute Auto 0.1 X10*3/uL (0.0-0.4); Eosinophils Percent Auto 3.6 % (0-4); Hematocrit 31.9 % (37.0-47.0); Hemoglobin 9.9 g/dl (12.0-16.0); Imm Gran Abs Auto 0.02 X10*3/uL (0.00-0.03); Imm Gran Pct Auto 0.5 % (0.0-0.4); Lymphocytes Absolute Auto 0.8 X10*3/uL (1.2-4.9); Lymphocytes Percent Auto 21.1 % (20-40); Mean Corpuscular Volume 96.7 fL (80.0-98.0); Mean Platelet Volume 11.5 fL (9.4-12.3); Monocytes Absolute Auto 0.2 X10*3/uL (0.1-1.2); Monocytes Percent Auto 4.6 % (2-11); Neutrophils Absolute Auto 2.7 x10*3/uL (2.0-8.3); Neutrophils Percent Auto 69.4 % (45-73); Platelet Count 196 X10*3/uL (160-400); Red Cell Distribution Width 16.3 % (11.0-16.0); White Blood Count 3.9 X10*3/uL (4.8-10.8)
[2023-07-13 11:49] LABS: Alanine Aminotransferase 5 U/L (0-31); Albumin Level 2.8 g/dL (3.5-5.0); Alkaline Phosphatase 75 U/L (39-117); Anion Gap 8 (12-20); Aspartate Amino Transferase 12 U/L (5-31); Bilirubin Total 0.3 mg/dL (0.0-1.0); Blood Urea Nitrogen 8 mg/dL (9-16); Calcium 7.2 mg/dL (8.4-10.2); Carbon Dioxide 23 mmol/L (22-29); Chloride 115 mmol/L (96-108); Estimated Glomerular Filt Rate > 60; Glucose Random 84 mg/dL (60-115); Potassium 3.7 mmol/L (3.3-5.1); Sodium 142 mmol/L (135-145); Total Protein 5.5 g/dL (6.5-8.0)
== END 2023-07-13 06:59 | disposition home or self-care (01) ==
LOC: HO.LHD 06:58
PROVIDERS: Visit Provider Internal Medicine Medical Oncology
DX: C90.00 Multiple myeloma not having achieved remission (principal); Z79.899 Other long term (current) drug therapy
CPT/HCPCS: 36415; 80053; 85025

== ENCOUNTER 2023-07-19 12:27 | Outpatient (AMB) | payer OTHER, SELFPAY ==
[2023-07-19 12:38] VITALS: BP 80/50; BMI 24.6
--- NOTE | 2023-07-19 12:38 | HO.NEPHOV ---
HPI HPI Comments History of Present Illness Details Elderly woman with multiple myeloma and an episode of ELEONORA. She was accompanied by her caregiver. According to caregiver patient has been feeling tired. She has been very picky with her food and does not take her supplements. [facility] Medical History Asthma Bilateral hearing loss CKD (chronic kidney disease) GERD (gastroesophageal reflux disease) Hyperlipidemia Hypertension Schizophrenia Sepsis Tubular adenoma of colon Surgical History History of lumpectomy History of total hysterectomy Family History Father Coronary artery disease High cholesterol Diabetes mellitus CVD (cardiovascular disease) Mother Alzheimer's disease Brother History of CVA (cerebrovascular accident) Stroke Sister History of CVA (cerebrovascular accident) Stroke Son No problems noted. Sister No problems noted. Sister No problems noted. Sister No problems noted. Sister No problems noted. Sister No problems noted. Brother No problems noted. Brother No problems noted. Brother No problems noted. Brother No problems noted. Brother No problems noted. Brother No problems noted. Other Hypertension Social History Household Members: Caregiver Household Members Other:: granddaughter. Housing: Apartment Are you a primary residential child care counselor to a significant other at home: No Do you presently have visiting nurse or other home services: No Alcohol intake: never Patient Tobacco Use Status: Former Tobacco user Quit Date: 2017 e-Cigarette/Vaping Use: Never Used Advance Directives Date on File: 04/15/18 service: No Current occupational status: retired Cognitive needs: No Hearing needs: No Vision needs: Yes Vital Signs 07/19/23 12:38 Height 5 ft 1 in Weight 130 lb 4 oz BMI 24.6 BP 80/50 L Physical Exam Vital Signs: BMI result Body Mass Index 24.6 Const General: ill appearing Neck Neck: Yes supple Resp Auscultation: clear to auscultation bilaterally Cardio Palpation: no palpable S3 Heart sounds: no rubs GI Palpation (GI): Soft to palpation Auscultation: normal bowel sounds Neuro Motor exam (neuro): no asterixis Assessment & Plan Assessment & Plan (1) CKD (chronic kidney disease): Code(s): N18.9 - Chronic kidney disease, unspecified Plan: Chronic kidney disease in the setting of multiple myeloma. The could be some age-related loss of glomerular like. At present renal function is at baseline (2) Acute kidney injury superimposed on CKD: Code(s): N17.9 - Acute kidney failure, unspecified; N18.9 - Chronic kidney disease, unspecified Plan: ELEONORA due to hypoperfusion is resolved (3) Anemia: Code(s): D64.9 - Anemia, unspecified Plan: Anemia setting of multiple myeloma next hemoglobin is reasonably stable She follows with a Dr. Veloz (4) Multiple myeloma: Code(s): C90.00 - Multiple myeloma not having achieved remission Qualifiers: Multiple myeloma remission status: unspecified Qualified Code(s): C90.00 - Multiple myeloma not having achieved remission Plan: She has been treated with Revlimid. Chest follow-up appointment with Dr. Veloz in the next 2-3 months (5) Hypertension: Code(s): I10 - Essential (primary) hypertension Plan History of hypertension and she is currently on metoprolol 25 mg b.i.d.. Today the blood pressure has been rather low. Pulses feeble. I will stop metoprolol 25 mg b.i.d. Caregiver will monitor blood pressure at home. Blood pressure remains low she will bring her to the hospital. She has a follow-up appointment with her PCP in the next 1 month. If the strep blood pressure stays above 140 mmHg we can restart her with the low-dose of metoprolol 12.5 mg or different agent like amlodipine 2.5 mg. Four no encouraged her to stay on a regular diet Orders: Orders Creatinine 3 Months C90.00 - Multiple myeloma not having achieved remission, D64.9 - Anemia, unspecified, N18.9 - Chronic kidney disease, unspecified Calcium 3 Months C90.00 - Multiple myeloma not having achieved remission, D64.9 - Anemia, unspecified, N18.9 - Chronic kidney disease, unspecified Vitamin D 25-OH (D2 and D3) 3 Months C90.00 - Multiple myeloma not having achieved remission, D64.9 - Anemia, unspecified, N18.9 - Chronic kidney disease, unspecified Electrolytes 3 Months C90.00 - Multiple myeloma not having achieved remission, D64.9 - Anemia, unspecified, N18.9 - Chronic kidney disease, unspecified Blood Urea Nitrogen 3 Months C90.00 - Multiple myeloma not having achieved remission, D64.9 - Anemia, unspecified, N18.9 - Chronic kidney disease, unspecified Parathyroid Hormone Intact 3 Months C90.00 - Multiple myeloma not having achieved remission, D64.9 - Anemia, unspecified, N18.9 - Chronic kidney disease, unspecified Phosphorus 3 Months C90.00 - Multiple myeloma not having achieved remission, D64.9 - Anemia, unspecified, N18.9 - Chronic kidney disease, unspecified Medications: Discontinued metoprolol tartrate Discontinued Reason: Doctor's Order 25 mg PO BID 180 tabs 1RF Coding Level of Care Code Est Pt Level 4 (77245) Diagnoses CKD (chronic kidney disease) N18.9 Acute kidney injury superimposed on CKD N17.9; N18.9 Anemia D64.9 Multiple myeloma C90.00 Multiple myeloma remission status: unspecified Hypertension I10 Results Reviewed Nephrology Results: Hgb 9.9 g/dl (12.0-16.0) L 07/13/23 WBC 3.9 X10*3/uL (4.8-10.8) L 07/13/23 Plt Count 196 X10*3/uL (160-400) 07/13/23 Sodium 142 mmol/L (135-145) 07/13/23 Potassium 3.7 mmol/L (3.3-5.1) 07/13/23 Chloride 115 mmol/L (96-108) H 07/13/23 Carbon Dioxide 23 mmol/L (22-29) 07/13/23 BUN 8 mg/dL (9-16) L 07/13/23 Creatinine 0.72 mg/dL (0.5-1.4) 07/13/23 Calcium 7.2 mg/dL (8.4-10.2) L 07/13/23
== END 2023-07-19 13:01 | disposition home or self-care (01) ==
PROVIDERS: PCP Internal Medicine; Visit Provider Internal Medicine Hypertension Specialist
DX: N18.9 Chronic kidney disease, unspecified (principal); N17.9 Acute kidney failure, unspecified; D64.9 Anemia, unspecified; C90.00 Multiple myeloma not having achieved remission; I12.9 Hypertensive chronic kidney disease with stage 1 through stage 4 chronic kidney disease, or unspecified chronic kidney disease
CPT/HCPCS: 99214

== ENCOUNTER → 2023-07-19 12:27 | Outpatient (BNVA) | payer OTHER, SELFPAY | PROVIDERS: PCP Internal Medicine; Visit Provider Internal Medicine Hypertension Specialist | DX: I12.9 Hypertensive chronic kidney disease with stage 1 through stage 4 chronic kidney disease, or unspecified chronic kidney disease (principal); N18.9 Chronic kidney disease, unspecified; N17.9 Acute kidney failure, unspecified; D64.9 Anemia, unspecified; C90.00 Multiple myeloma not having achieved remission | CPT/HCPCS: 99212 ==

== ENCOUNTER 2023-07-20 08:43 | Outpatient (REF) | payer OTHER, SELFPAY ==
[2023-07-20 11:16] LABS: MANUAL DIFF FLAG NO
[2023-07-20 11:17] LABS: Hematocrit 29.8 % (37.0-47.0); Hemoglobin 9.3 g/dl (12.0-16.0); Mean Corpuscular HGB Conc 31.2 g/dl (31.0-35.0); Mean Corpuscular Hemoglobin 30.3 pg (27.0-33.0); Mean Corpuscular Volume 97.1 fL (80.0-98.0); Platelet Count 147 X10*3/uL (160-400); Red Blood Count 3.07 X10*6/uL (4.20-5.50); Red Cell Distribution Width 16.2 % (11.0-16.0); White Blood Count 3.9 X10*3/uL (4.8-10.8)
[2023-07-20 11:18] LABS: Basophils Percent Auto 0.3 % (0-2); Eosinophils Absolute Auto 0.2 X10*3/uL (0.0-0.4); Eosinophils Percent Auto 6.1 % (0-4); Imm Gran Abs Auto 0.02 X10*3/uL (0.00-0.03); Imm Gran Pct Auto 0.5 % (0.0-0.4); Lymphocytes Absolute Auto 0.9 X10*3/uL (1.2-4.9); Lymphocytes Percent Auto 21.7 % (20-40); Mean Platelet Volume 11.5 fL (9.4-12.3); Monocytes Absolute Auto 0.4 X10*3/uL (0.1-1.2); Monocytes Percent Auto 10.5 % (2-11); Neutrophils Absolute Auto 2.4 x10*3/uL (2.0-8.3); Neutrophils Percent Auto 60.9 % (45-73)
== END 2023-07-20 08:44 | disposition home or self-care (01) ==
LOC: HO.LHD 08:43
PROVIDERS: Family Medicine; Visit Provider Internal Medicine Medical Oncology
DX: C90.00 Multiple myeloma not having achieved remission (principal)
CPT/HCPCS: 36415; 80053; 85025

== ENCOUNTER 2023-07-27 08:39 | Outpatient (REF) | payer OTHER, SELFPAY ==
[2023-07-27 12:19] LABS: Basophils Percent Auto 0.8 % (0-2); Eosinophils Absolute Auto 0.4 X10*3/uL (0.0-0.4); Eosinophils Percent Auto 14.1 % (0-4); Hematocrit 26.5 % (37.0-47.0); Hemoglobin 8.2 g/dl (12.0-16.0); Imm Gran Abs Auto 0.02 X10*3/uL (0.00-0.03); Imm Gran Pct Auto 0.8 % (0.0-0.4); Lymphocytes Absolute Auto 0.9 X10*3/uL (1.2-4.9); Lymphocytes Percent Auto 35.9 % (20-40); MANUAL DIFF FLAG SCAN; Mean Corpuscular HGB Conc 30.9 g/dl (31.0-35.0); Mean Corpuscular Volume 97.1 fL (80.0-98.0); Mean Platelet Volume 12.5 fL (9.4-12.3); Monocytes Absolute Auto 0.3 X10*3/uL (0.1-1.2); Monocytes Percent Auto 10.5 % (2-11); Neutrophils Percent Auto 37.9 % (45-73); Platelet Count 122 X10*3/uL (160-400); Red Blood Count 2.73 X10*6/uL (4.20-5.50); Red Cell Distribution Width 16.2 % (11.0-16.0); SCAN SMEAR FLAG 1; White Blood Count 2.6 X10*3/uL (4.8-10.8)
[2023-07-27 12:30] LABS: Alanine Aminotransferase 8 U/L (0-31); Albumin Level 2.6 g/dL (3.5-5.0); Alkaline Phosphatase 72 U/L (39-117); Anion Gap 9 (12-20); Aspartate Amino Transferase 12 U/L (5-31); Bilirubin Total 0.3 mg/dL (0.0-1.0); Blood Urea Nitrogen 12 mg/dL (9-16); Calcium 7.7 mg/dL (8.4-10.2); Carbon Dioxide 25 mmol/L (22-29); Chloride 111 mmol/L (96-108); Estimated Glomerular Filt Rate 59; Glucose Random 103 mg/dL (60-115); Potassium 3.4 mmol/L (3.3-5.1); Sodium 142 mmol/L (135-145); Total Protein 4.9 g/dL (6.5-8.0)
[2023-07-27 12:53] LABS: SLIDE REVIEW VERIFIED
== END 2023-07-27 08:40 | disposition home or self-care (01) ==
LOC: HO.LHD 08:39
PROVIDERS: Visit Provider Internal Medicine Medical Oncology
DX: T80.69XA Other serum reaction due to other serum, initial encounter (principal)
CPT/HCPCS: 36415; 80053; 85025

== ENCOUNTER 2023-08-03 07:32 | Outpatient (REF) | payer OTHER, SELFPAY ==
[2023-08-03 10:19] LABS: Basophils Percent Auto 0.9 % (0-2); Eosinophils Absolute Auto 0.2 X10*3/uL (0.0-0.4); Eosinophils Percent Auto 9.2 % (0-4); Hematocrit 25.8 % (37.0-47.0); Hemoglobin 8.3 g/dl (12.0-16.0); Imm Gran Abs Auto 0.02 X10*3/uL (0.00-0.03); Imm Gran Pct Auto 0.9 % (0.0-0.4); Lymphocytes Percent Auto 42.5 % (20-40); MANUAL DIFF FLAG SCAN; Mean Corpuscular HGB Conc 32.2 g/dl (31.0-35.0); Mean Corpuscular Hemoglobin 31.2 pg (27.0-33.0); Mean Platelet Volume 11.1 fL (9.4-12.3); Monocytes Absolute Auto 0.4 X10*3/uL (0.1-1.2); Monocytes Percent Auto 15.8 % (2-11); Neutrophils Absolute Auto 0.7 x10*3/uL (2.0-8.3); Neutrophils Percent Auto 30.7 % (45-73); Platelet Count 126 X10*3/uL (160-400); Red Blood Count 2.66 X10*6/uL (4.20-5.50); Red Cell Distribution Width 16.4 % (11.0-16.0); SCAN SMEAR FLAG 1
[2023-08-03 10:22] LABS: White Blood Count 2.3 X10*3/uL (4.8-10.8)
[2023-08-03 10:36] LABS: Alanine Aminotransferase 8 U/L (0-31); Albumin Level 2.6 g/dL (3.5-5.0); Alkaline Phosphatase 61 U/L (39-117); Anion Gap 8 (12-20); Aspartate Amino Transferase 12 U/L (5-31); Bilirubin Total 0.3 mg/dL (0.0-1.0); Blood Urea Nitrogen 12 mg/dL (9-16); Calcium 7.7 mg/dL (8.4-10.2); Carbon Dioxide 26 mmol/L (22-29); Chloride 114 mmol/L (96-108); Estimated Glomerular Filt Rate > 60; Glucose Random 85 mg/dL (60-115); Sodium 145 mmol/L (135-145); Total Protein 4.9 g/dL (6.5-8.0)
[2023-08-03 10:51] LABS: SLIDE REVIEW VERIFIED
== END 2023-08-03 07:33 | disposition home or self-care (01) ==
LOC: HO.LHD 07:32
PROVIDERS: Visit Provider Internal Medicine Medical Oncology
DX: Z13.89 Encounter for screening for other disorder (principal)
CPT/HCPCS: 36415; 80053; 85025

== ENCOUNTER 2023-08-10 08:28 | Outpatient (REF) | payer OTHER, SELFPAY ==
[2023-08-10 11:08] LABS: MANUAL DIFF FLAG NO
[2023-08-10 11:45] LABS: Basophils Absolute Auto 0.1 X10*3/uL (0.0-0.2); Basophils Percent Auto 2.3 % (0-2); Eosinophils Absolute Auto 0.1 X10*3/uL (0.0-0.4); Eosinophils Percent Auto 4.9 % (0-4); Hematocrit 26.7 % (37.0-47.0); Hemoglobin 8.1 g/dl (12.0-16.0); Imm Gran Abs Auto 0.01 X10*3/uL (0.00-0.03); Imm Gran Pct Auto 0.4 % (0.0-0.4); Lymphocytes Percent Auto 38.3 % (20-40); Mean Corpuscular HGB Conc 30.3 g/dl (31.0-35.0); Mean Corpuscular Hemoglobin 30.2 pg (27.0-33.0); Mean Corpuscular Volume 99.6 fL (80.0-98.0); Mean Platelet Volume 10.5 fL (9.4-12.3); Monocytes Absolute Auto 0.2 X10*3/uL (0.1-1.2); Monocytes Percent Auto 7.5 % (2-11); Neutrophils Absolute Auto 1.2 x10*3/uL (2.0-8.3); Neutrophils Percent Auto 46.6 % (45-73); Platelet Count 195 X10*3/uL (160-400); Red Blood Count 2.68 X10*6/uL (4.20-5.50); Red Cell Distribution Width 17.5 % (11.0-16.0); White Blood Count 2.7 X10*3/uL (4.8-10.8)
[2023-08-10 11:58] LABS: Alanine Aminotransferase 5 U/L (0-31); Albumin Level 2.5 g/dL (3.5-5.0); Alkaline Phosphatase 68 U/L (39-117); Anion Gap 8 (12-20); Aspartate Amino Transferase 10 U/L (5-31); Bilirubin Total 0.2 mg/dL (0.0-1.0); Blood Urea Nitrogen 11 mg/dL (9-16); Calcium 8.1 mg/dL (8.4-10.2); Carbon Dioxide 22 mmol/L (22-29); Chloride 117 mmol/L (96-108); Estimated Glomerular Filt Rate > 60; Glucose Random 82 mg/dL (60-115); Potassium 3.9 mmol/L (3.3-5.1); Sodium 143 mmol/L (135-145); Total Protein 4.9 g/dL (6.5-8.0)
== END 2023-08-10 08:29 | disposition home or self-care (01) ==
LOC: HO.LHD 08:28
PROVIDERS: Visit Provider Internal Medicine Medical Oncology
DX: Z13.89 Encounter for screening for other disorder (principal)
CPT/HCPCS: 36415; 80053; 85025

== ENCOUNTER 2023-08-17 08:15 | Outpatient (REF) | payer OTHER, SELFPAY | END 2023-08-17 08:16 | disposition home or self-care (01) | LOC: HO.LHD 08:15 | PROVIDERS: Visit Provider Internal Medicine Medical Oncology | DX: Z13.89 Encounter for screening for other disorder (principal) ==

== ENCOUNTER 2023-08-24 07:16 | Outpatient (REF) | payer OTHER, SELFPAY | END 2023-08-24 07:17 | disposition home or self-care (01) | LOC: HO.LHD 07:16 | PROVIDERS: Visit Provider Internal Medicine Medical Oncology | DX: Z13.89 Encounter for screening for other disorder (principal) ==

== ENCOUNTER 2023-08-24 12:04 | Outpatient (AMB) | payer OTHER, SELFPAY ==
--- NOTE | 2023-08-24 12:30 | A.OFFPC_ITS ---
Vital Signs 08/24/23 12:31 Height 5 ft 1 in Weight 134 lb BMI 25.3 BP 90/52 L Blood Pressure Location Lt brachial Position Sitting Intake Visit Reasons: PE Intake Note: Pt is here today for her Annual PE. Mammogram 09/20/22.. Bone density 09/20/22. Colonoscopy 02/12/18: (Colorguard kit pt received recent) Allergies No Known Allergies [No Known Allergies*] Allergy (Verified 08/24/23 12:46) Medication List - Last Reconciled 08/24/23 by Gladys Orellana MD acyclovir 400 mg PO DAILY albuterol sulfate 90 mcg/actuation 2 puffs PO Q4H PRN allopurinol 100 mg PO DAILY aspirin 81 mg PO DAILY calcium carbonate (Calcium) 600 mg PO TID cetirizine 10 mg PO BEDTIME cholecalciferol (vitamin D3) 50 mcg PO DAILY clozapine 200 mg PO BEDTIME denosumab 120 mg subcut Q8W ferrous sulfate 324 mg PO DAILY filgrastim-sndz (Zarxio) 300 mcg (0.5 mL) subcut DAILY lenalidomide (Revlimid) 15 mg PO DAILY loperamide (Anti-Diarrheal (loperamide)) 2 mg PO DAILY PRN loperamide 2 mg PO Q6H PRN lorazepam (Ativan) 1 mg PO DAILY PRN omeprazole 20 mg PO DAILY@0630 ondansetron 4 mg PO Q4H PRN potassium chloride ER 20 mEq PO DAILY sennosides (senna) 2 tabs PO DAILY PRN sulfamethoxazole-trimethoprim 800-160 mg (Bactrim DS) 1 tab PO MOWEFR Tobacco use date assessed: 08/24/23 Fall risk assessment: No Falls in past year Last assessed Fall Risk: 08/24/23 Dental Screening Dental Screen Date: 08/24/23 Did you have a dental visit in the last 12 months?: No Did you have a dental problem in the last 6 months where you did not have access to dental care?: No Was dental information given to patient?: No HPI PE HPI Details 78-year-old lady here today for her phys ical exam. She has multiple myeloma currently followed by Dr. Veloz. Latest CBC showed improvement in her hemoglobin, and white blood cell count, platelet count still low, no overt signs of bleeding. Has been feeling better, appetite has been picking up her granddaughter. She has chronic kidney disease and history of hypertension, recently seen by Nephrology who stopped her metoprolol due to episodes of low blood pressure readings. Blood pressure today still remaining on the low side, but patient denies episodes of lightheadedness, no headache, no chest pain or shortness of breath. She has had her COVID vaccine, but does not want to get a flu shot, up-to-date with her pneumonia vaccine a shins and Tdap, reminded to get the shingles vaccine. Has had shingles in the past. She also was started on potassium supplements director of sales. Magdiel due presence of hypokalemia noted on recent blood work. She is up-to-date with her screening mammogram and bone density scan, latter showing mild osteopenia in left femoral neck with a T-score of-1.4. Currently on denosumab 120 mg subcutaneously given every 8 weeks. . [facility] Medical History (Updated 08/24/23 @ 13:15 by Gladys Orellana MD) CKD (chronic kidney disease) Sepsis Tubular adenoma of colon Bilateral hearing loss Schizophrenia Asthma GERD (gastroesophageal reflux disease) Hyperlipidemia Hypertension Surgical History History of total hysterectomy History of lumpectomy Family History Father Coronary artery disease High cholesterol Diabetes mellitus CVD (cardiovascular disease) Mother Alzheimer's disease Brother History of CVA (cerebrovascular accident) Stroke Sister History of CVA (cerebrovascular accident) Stroke Son No problems noted. Sister No problems noted. Sister No problems noted. Sister No problems noted. Sister No problems noted. Sister No problems noted. Brother No problems noted. Brother No problems noted. Brother No problems noted. Brother No problems noted. Brother No problems noted. Brother No problems noted. Other Hypertension Social History Household Members: Caregiver Household Members Other:: granddaughter. Housing: Apartment Are you a primary day care home provider to a significant other at home: No Do you presently have visiting nurse or other home services: No Alcohol intake: never Patient Tobacco Use Status: Former Tobacco user Quit Date: 2017 e-Cigarette/Vaping Use: Never Used Advance Directives Date on File: 04/15/18 service: No Current occupational status: retired Cognitive needs: No Hearing needs: No Vision needs: Yes Questionnaire PHQ-9 Over the last 2 weeks, how often have you been bothered by any of the following problems? 1. Little interest or pleasure in doing things: more than half the days 2. Feeling down, depressed, or hopeless: not at all 3. Trouble falling or staying asleep, or sleeping too much: more than half the days 4. Feeling tired or having little energy: nearly every day 5. Poor appetite or overeating: more than half the days 6. Feeling bad about yourself - or that you are a failure or have let yourself or your family down: not at all 7. Trouble concentrating on things, such as reading the newspaper or watching television: not at all 8. Moving or speaking so slowly that other people could have noticed. Or the opposite - being so fidgety or restless that you have been moving around a lot more than usual: not at all 9. Thoughts that you would be better off or of hurting yourself in some way: not at all Total score: 9 Depression Screening Interpretation: Positive Depression Screening Follow-up: Existing condition, In treatment and Community Mental Health Worker F/U (Followed by Yunior Chivo for her schizophrenia) Depression Screening Done: Yes Source: Developed by Drs. Ravindra Archer, Delia Nunn, Joe Lima and colleagues, with an educational keith from [employer]. Thrive Questionnaire Date Thrive assessed: 08/24/23 I am a: Patient What is your living situation today?: I have a steady place to live Within the past 12 months, did the food you bought not last and you didn't have the money to get more?: Never true Within the past 12 months, did you worry whether your food would run out before you got money to buy more?: Never true Do you have trouble paying for medicines?: No Do you have trouble getting transportation to medical appointments?: No Do you have trouble paying your heating and electricity bill?: No Do you have trouble taking care of your child, family member or friend?: No Do you have trouble with day-to-day activities such as bathing, preparing meals, shopping, managing finances, etc.?: Yes Are you currently unemployed and looking for a job?: No Are you interested in more education?: No THRIVE Score: 0 AUDIT C Alcohol Use Questionnaire (AUDIT-C) 1. How often do you have a drink containing alcohol?: Never 3. How often do you have six or more drinks on one occasion?: Never Total Score: 0 Score Reviewed/Action Taken: Yes KELECHI-7 AMB Questionnaire KELECHI-7 Date KELECHI - 7 assessed: 08/22/22 Feeling nervous, anxious, or on edge: 0 = Not at all Not being able to stop or control worryin = Not at all Worrying too much about different things: 0 = Not at all Trouble relaxin = Not at all Being so restless that it is hard to sit still: 0 = Not at all Becoming easily annoyed or irritable: 0 = Not at all Feeling afraid as if something awful might happen: 0 = Not at all Total KELECHI-7 score (0-4 normal; 5-9 mild; 10-14 moderate; 15-21 severe): 0 Source: Developed by Drs. Ravindra Archer, Delia Nunn, Joe Lima and colleagues, with an educational keith from [employer]. KELECHI-7 Assessment Billing KELECHI-7 Assessment Tool: KELECHI-7 Assessment 48741 Review of Systems Const Denies body aches, Denies fever(s), Denies malaise and Denies poor appetite Eyes Reports no additional complaints ENT Reports as per HPI Card Denies chest pain, Denies edema and Denies irregular heart rhythm Resp Denies chest congestion and Denies cough GI Denies abdominal pain, Denies melena, Denies heartburn and Denies nausea Reports no additional complaints Musc Reports no additional complaints Skin/Breast Denies rash Neuro Reports no additional complaints, Denies behavioral changes, Denies lack of coordination, Denies focal weakness and Denies Sensory deficit (Neuro) Psych Denies behavioral changes Endo Denies polyphagia, Denies polydipsia and Denies polyuria Mat/Lymph Denies easy bleeding and Denies easy bruising Aller/Immun Denies urticaria and Denies seasonal rhinorrhea Physical exam (Primary Care) Vital Signs: Last Vital Signs BP 90/52 L 08/24/23 12:31 BMI result Body Mass Index 25.3 Tobacco/Smoking Status: Tobacco use Status Tobacco use date assessed 08/24/23 08/24/23 12:32 Patient Tobacco Use Status Former Tobacco user 08/24/23 12:31 e-Cigarette/Vaping Use Never Used 08/24/23 12:31 Depression Screening Interpretation: Positive Depression Screening Follow-up: Existing condition, In treatment and Community Mental Health Worker F/U (Followed by Yunior Loraodalis for her schizophrenia) Thrive Assessment: Date of Thrive Assessment Date Thrive assessed 08/22/22 08/24/23 12:31 Const General: cooperative, no acute distress and alert Orientation/consciousness: oriented to person Limitations: language barrier and other limitations (Decreased hearing) HENMT Head: Yes normocephalic General nose exam: Normal external nose present Mouth: oropharynx normal and moist mucous membranes Eyes General: appearance normal, both eyes and all related structures Neck Neck: Yes full ROM and Yes no lymphadenopathy Chest Breast/axilla palpation: normal palpation of the breasts Resp Auscultation: clear to auscultation bilaterally Cardio Rate: regular rate Rhythm: regular rhythm Heart sounds: S1 normal heart sound present and S2 normal heart sound present GI Inspection: Yes normal to inspection Palpation (GI): Soft to palpation Auscultation: normal bowel sounds General: Yes no CVA tenderness Back/Spine/Pelvis Other: Positive kyphosis Back: no CVA tenderness and No back tenderness Skin General skin exam: no rashes or lesions noted Neuro General: oriented to person, moves all extremities, no focal motor deficits and CN's II-XI intact bilaterally Sensory Exam: No Sensory deficit (Neuro) Extrem General: Yes normal to inspection, Yes full ROM, Yes no joint enlargement and Yes no pedal edema Psych Appearance: grossly normal and well kempt Mental Status: mental status grossly normal Affect: normal affect Attitude: cooperative Thought process: Normal thought process present Results Reviewed Results Reviewed: NTERED: 08/23/23-[address]: Gladys Orellana MD ORDERED: CBC Auto Diff Test Result Flag Reference WBC 9.7 4.8-10.8 X10*3/uL RBC 3.27 # L 4.20-5.50 X10*6/uL HGB 9.9 # L 12.0-16.0 g/dl HCT 32.5 # L 37.0-47.0 % MCV 99.4 H 80.0-98.0 fL MCH 30.3 27.0-33.0 pg MCHC 30.5 L 31.0-35.0 g/dl RDW 15.9 11.0-16.0 % PLT 143 # L 160-400 X10*3/uL MPV 12.4 H 9.4-12.3 fL Neut Pct Auto 71.8 45-73 % ImGran Pct Auto 2.2 H 0.0-0.4 % Lymp Pct Auto 16.8 L 20-40 % [place] Pct Auto 5.0 2-11 % Eos Pct Auto 3.7 0-4 % Baso Pct Auto 0.5 0-2 % NRBC Pct Auto 0.0 0.0-0.2 /100WBC ANC Neut Abs # 7.0 2.0-8.3 x10*3/uL ImGran Abs Auto 0.21 H 0.00-0.03 X10*3/uL Lymph Abs Auto 1.6 1.2-4.9 X10*3/uL [place] Abs Auto 0.5 0.1-1.2 X10*3/uL Eos Abs Auto 0.4 0.0-0.4 X10*3/uL Baso Abs Auto 0.1 0.0-0.2 X10*3/uL NRBC Abs Auto 0.000 0.0-0.012 X10*3/uL Name: Jeanne Younger Age/Sex: 78/F : 1945 Unit#: [id number] Attend Dr: Rosanne Veloz MD Re08/23/23 Status: REG RCR Location: .[facility]C Disch: SPEC : [id number] MARCUS: 08/23/23 STATUS: COMP REQ : [id number] RECD: 08/23/23-[address]: Rosanne Veloz MD COMP: 08/23/23-1402 ENTERED: 08/23/23-[address]: Gladys Orellana MD ORDERED: CMP Test Result Flag Reference Sodium 145 135-145 mmol/L Potassium 2.9 #*L 3.3-5.1 mmol/L Critical value for K: Results called to and read back by: SIDDHARTHA Person calling: BRISEIDA Date: 08/23/23 Time: 1402 CL 111 H 96-108 mmol/L CO2 21 L 22-29 mmol/L Gap 16 12-20 BUN 8 L 9-16 mg/dL Creat 0.96 0.5-1.4 mg/dL Estimated CrCl 42.3 Provided height and weight: 154.99 cm, 62.8 kg. eGFR (calculated from the MDRD study equation) and eCrCl (calculated from the Cockcroft-Gault equation) are based on different parameters and may not yield comparable results. If eCrCl result is absurd, please check patient's height/weight. EGFR 57 NOTE: For -[place] individuals, multiply the result by 1.210. Chronic Kidney Disease: Estimated GFR < 60 mL/min/1.73m2 Severe Kidney Disease: Estimated GFR < 15 mL/min/1. 73m2 Glucose, Random 196 H 60-115 mg/dL CA 8.7 # 8.4-10.2 mg/dL Total Bili 0.3 0.0-1.0 mg/dL AST (GOT) 10 5-31 U/L ALT (GPT) 6 0-31 U/L Protein, Total 6.4 L 6.5-8.0 g/dL Alb 3.3 L 3.5-5.0 g/dL Alk Phos 73 39-117 U/L Assessment and Plan Assessment & Plan (1) Annual visit for general adult medical examination with abnormal findings: Code(s): Z00.01 - Encounter for general adult medical examination with abnormal findings Plan: Recent lab results reviewed with patient and granddaughter. Ordered a fasting lipid panel. Recommended dental visit every 6 months and regular eye exams she is up-to-date with her screening mammogram, and bone density scan, done last year. Reminded to get her Cologuard testing done, already has kit at home. Up-to-date with all her vaccines but does not want to get a COVID vaccine, reminded to get her shingles vaccination (2) Multiple myeloma: Code(s): C90.00 - Multiple myeloma not having achieved remission Qualifiers: Multiple myeloma remission status: unspecified Qualified Code(s): C90.00 - Multiple myeloma not having achieved remission Plan: Followed by Dr. Veloz, recent labs showed improvement in her hemoglobin, no leukocytosis, still with thrombocytopenia, continued on ferrous sulfate (3) Schizophrenia: Comment: Followed by Yunior Waldron Code(s): F20.9 - Schizophrenia, unspecified Plan: Currently on clozapine and lorazepam as needed (4) CKD (chronic kidney disease): Code(s): N18.9 - Chronic kidney disease, unspecified Plan: Followed by Dr. Byers, metoprolol held due to hypotension, blood pressure has been holding steady, on the low-normal side. encouraged her to stay on a regular diet (5) Chronic obstructive airway disease: Code(s): J44.9 - Chronic obstructive pulmonary disease, unspecified (6) Advanced directives, counseling/discussion: Code(s): Z71.89 - Other specified counseling Plan: Initiated the conversation about Advanced Directives. Advanced Directives help patients prepare for current and future decisions about their medical treatment and place of care. Discussed with patient that it is a process where a patients current condition and prognosis are reviewed, their wishes for information regarding their illness are elicited, and likely medical dilemmas are presented and options discussed. Healthcare proxy form already in chart, MOLST form completed today. These forms can be amended as needed, reviewed yearly and make changes as needed Orders: Orders Lipid Panel Today Z13.220 - Encounter for screening for lipoid disorders Coding Level of Care Code Est Pt Prev Care >65y(87284) Diagnoses Annual visit for general adult medical examination with abnormal findings Z00.01 Multiple myeloma C90.00 Multiple myeloma remission status: unspecified Schizophrenia F20.9 CKD (chronic kidney disease) N18.9 Chronic obstructive airway disease J44.9 Advanced directives, counseling/discussion Z71.89 Additional Codes KELECHI-7 Assessment Billing - KELECHI-7 Assessment Tool: KELECHI-7 Assessment 11382 ([id number])
[2023-08-24 12:31] VITALS: BP 90/52; BMI 25.3
== END 2023-08-24 13:04 | disposition home or self-care (01) ==
PROVIDERS: Visit Provider Internal Medicine
DX: Z00.00 Encounter for general adult medical examination without abnormal findings (principal); C90.00 Multiple myeloma not having achieved remission; F20.9 Schizophrenia, unspecified; J44.9 Chronic obstructive pulmonary disease, unspecified; N18.9 Chronic kidney disease, unspecified
CPT/HCPCS: 99397

== ENCOUNTER 2023-08-31 06:39 | Outpatient (REF) | payer OTHER, SELFPAY ==
[2023-08-31 11:26] LABS: MANUAL DIFF FLAG NO
[2023-08-31 12:25] LABS: Basophils Percent Auto 1.1 % (0-2); Eosinophils Absolute Auto 0.4 X10*3/uL (0.0-0.4); Eosinophils Percent Auto 13.7 % (0-4); Hematocrit 27.8 % (37.0-47.0); Hemoglobin 8.8 g/dl (12.0-16.0); Imm Gran Abs Auto 0.03 X10*3/uL (0.00-0.03); Imm Gran Pct Auto 1.1 % (0.0-0.4); Lymphocytes Absolute Auto 0.7 X10*3/uL (1.2-4.9); Lymphocytes Percent Auto 25.2 % (20-40); Mean Corpuscular HGB Conc 31.7 g/dl (31.0-35.0); Mean Corpuscular Hemoglobin 30.8 pg (27.0-33.0); Mean Corpuscular Volume 97.2 fL (80.0-98.0); Mean Platelet Volume 12.4 fL (9.4-12.3); Monocytes Absolute Auto 0.2 X10*3/uL (0.1-1.2); Neutrophils Absolute Auto 1.3 x10*3/uL (2.0-8.3); Neutrophils Percent Auto 50.9 % (45-73); Platelet Count 118 X10*3/uL (160-400); Red Blood Count 2.86 X10*6/uL (4.20-5.50); Red Cell Distribution Width 15.9 % (11.0-16.0); White Blood Count 2.6 X10*3/uL (4.8-10.8)
[2023-08-31 12:33] LABS: Alanine Aminotransferase 5 U/L (0-31); Albumin Level 2.6 g/dL (3.5-5.0); Alkaline Phosphatase 60 U/L (39-117); Anion Gap 10 (12-20); Aspartate Amino Transferase 9 U/L (5-31); Bilirubin Total 0.3 mg/dL (0.0-1.0); Blood Urea Nitrogen 10 mg/dL (9-16); Carbon Dioxide 26 mmol/L (22-29); Chloride 111 mmol/L (96-108); Estimated Glomerular Filt Rate 57; Glucose Random 137 mg/dL (60-115); Potassium 3.5 mmol/L (3.3-5.1); Sodium 143 mmol/L (135-145); Total Protein 5.1 g/dL (6.5-8.0)
== END 2023-08-31 06:40 | disposition home or self-care (01) ==
LOC: HO.LHD 06:39
PROVIDERS: Visit Provider Internal Medicine Medical Oncology
DX: Z13.89 Encounter for screening for other disorder (principal)
CPT/HCPCS: 36415; 80053; 85025

== ENCOUNTER 2023-09-07 07:34 | Outpatient (REF) | payer OTHER, SELFPAY ==
[2023-09-07 12:07] LABS: Basophils Percent Auto 1.7 % (0-2); Eosinophils Absolute Auto 0.2 X10*3/uL (0.0-0.4); Eosinophils Percent Auto 9.9 % (0-4); Hematocrit 29.5 % (37.0-47.0); Hemoglobin 9.1 g/dl (12.0-16.0); Imm Gran Abs Auto 0.01 X10*3/uL (0.00-0.03); Imm Gran Pct Auto 0.4 % (0.0-0.4); Lymphocytes Absolute Auto 0.8 X10*3/uL (1.2-4.9); Lymphocytes Percent Auto 34.1 % (20-40); Mean Corpuscular HGB Conc 30.8 g/dl (31.0-35.0); Mean Corpuscular Hemoglobin 30.5 pg (27.0-33.0); Mean Platelet Volume 10.6 fL (9.4-12.3); Monocytes Absolute Auto 0.2 X10*3/uL (0.1-1.2); Monocytes Percent Auto 10.3 % (2-11); Neutrophils Percent Auto 43.6 % (45-73); Platelet Count 165 X10*3/uL (160-400); Red Blood Count 2.98 X10*6/uL (4.20-5.50); Red Cell Distribution Width 15.8 % (11.0-16.0); SCAN SMEAR FLAG 1
[2023-09-07 12:17] LABS: White Blood Count 2.3 X10*3/uL (4.8-10.8)
[2023-09-07 12:18] LABS: MANUAL DIFF FLAG NO
== END 2023-09-07 07:35 | disposition home or self-care (01) ==
LOC: HO.LHD 07:34
PROVIDERS: Visit Provider Internal Medicine Medical Oncology
DX: R76.9 Abnormal immunological finding in serum, unspecified (principal)
CPT/HCPCS: 36415; 85025

== ENCOUNTER 2023-09-14 07:53 | Outpatient (REF) | payer OTHER, SELFPAY ==
[2023-09-14 09:43] LABS: Hemoglobin 9.7 g/dl (12.0-16.0); Mean Corpuscular HGB Conc 31.3 g/dl (31.0-35.0); Mean Corpuscular Hemoglobin 30.7 pg (27.0-33.0); Mean Corpuscular Volume 98.1 fL (80.0-98.0); Platelet Count 242 X10*3/uL (160-400); Red Blood Count 3.16 X10*6/uL (4.20-5.50); White Blood Count 6.8 X10*3/uL (4.8-10.8)
[2023-09-14 10:02] LABS: Alanine Aminotransferase < 5 U/L (0-31); Albumin Level 3.1 g/dL (3.5-5.0); Alkaline Phosphatase 72 U/L (39-117); Anion Gap 10 (12-20); Aspartate Amino Transferase 9 U/L (5-31); Bilirubin Total 0.3 mg/dL (0.0-1.0); Blood Urea Nitrogen 9 mg/dL (9-16); Calcium 8.5 mg/dL (8.4-10.2); Carbon Dioxide 24 mmol/L (22-29); Chloride 117 mmol/L (96-108); Estimated Glomerular Filt Rate > 60; Glucose Random 106 mg/dL (60-115); Sodium 147 mmol/L (135-145)
[2023-09-14 11:13] LABS: Band Neutrophils Percent 14 % (3-5); Eosinophils Absolute Manual 0.3 X10*3/uL (0.0-0.4); Eosinophils Percent Manual 5 % (0-4); Lymphocytes Absolute Manual 0.9 X10*3/uL (1.2-4.9); Lymphocytes Percent Manual 13 % (20-40); Monocytes Absolute Manual 0.1 X10*3/uL (0.1-1.2); Monocytes Percent Manual 1 % (2-11); Neutrophils Absolute Manual 5.5 X10*3/uL (2.0-8.3); Neutrophils Percent Manual 67 % (45-73)
[2023-09-14 11:14] LABS: RBC Morphology NOTED
[2023-09-14 11:15] LABS: Hypochromasia 1+ (5-14) /OIF; Ovalocytes 1+ (5-14) /OIF; Platelet Estimate NORMAL (NORMAL); Platelet Morphology Comment NORMAL; Polychromasia 1+ (0-2) /OIF; Schistocytes 1+ (0-2) /OIF; Tear Drop Cells 1+ (0-2) /OIF
== END 2023-09-14 07:54 | disposition home or self-care (01) ==
LOC: HO.LHD 07:53
PROVIDERS: Internal Medicine Medical Oncology; Visit Provider Family Medicine
DX: C90.00 Multiple myeloma not having achieved remission (principal)
CPT/HCPCS: 36415; 80053; 85007; 85027

== ENCOUNTER 2023-09-21 08:41 | Outpatient (REF) | payer OTHER, SELFPAY ==
[2023-09-21 11:07] LABS: MANUAL DIFF FLAG NO
[2023-09-21 11:27] LABS: Basophils Percent Auto 1.2 % (0-2); Eosinophils Absolute Auto 0.3 X10*3/uL (0.0-0.4); Eosinophils Percent Auto 9.8 % (0-4); Hematocrit 31.5 % (37.0-47.0); Hemoglobin 9.8 g/dl (12.0-16.0); Imm Gran Abs Auto 0.02 X10*3/uL (0.00-0.03); Imm Gran Pct Auto 0.8 % (0.0-0.4); Lymphocytes Absolute Auto 0.9 X10*3/uL (1.2-4.9); Lymphocytes Percent Auto 33.9 % (20-40); Mean Corpuscular HGB Conc 31.1 g/dl (31.0-35.0); Mean Corpuscular Hemoglobin 30.5 pg (27.0-33.0); Mean Corpuscular Volume 98.1 fL (80.0-98.0); Mean Platelet Volume 12.3 fL (9.4-12.3); Monocytes Absolute Auto 0.3 X10*3/uL (0.1-1.2); Monocytes Percent Auto 12.2 % (2-11); Neutrophils Absolute Auto 1.1 x10*3/uL (2.0-8.3); Neutrophils Percent Auto 42.1 % (45-73); Platelet Count 137 X10*3/uL (160-400); Red Blood Count 3.21 X10*6/uL (4.20-5.50); Red Cell Distribution Width 15.6 % (11.0-16.0)
[2023-09-21 11:28] LABS: White Blood Count 2.5 X10*3/uL (4.8-10.8)
[2023-09-21 11:46] LABS: Alanine Aminotransferase < 5 U/L (0-31); Alkaline Phosphatase 63 U/L (39-117); Anion Gap 8 (12-20); Aspartate Amino Transferase 9 U/L (5-31); Bilirubin Total 0.4 mg/dL (0.0-1.0); Blood Urea Nitrogen 9 mg/dL (9-16); Carbon Dioxide 26 mmol/L (22-29); Chloride 113 mmol/L (96-108); Estimated Glomerular Filt Rate > 60; Glucose Random 86 mg/dL (60-115); Sodium 143 mmol/L (135-145); Total Protein 5.8 g/dL (6.5-8.0)
== END 2023-09-21 08:42 | disposition home or self-care (01) ==
LOC: HO.LHD 08:41
PROVIDERS: Visit Provider Internal Medicine Medical Oncology
DX: C90.00 Multiple myeloma not having achieved remission (principal)
CPT/HCPCS: 36415; 80053; 85025

== ENCOUNTER 2023-09-28 08:09 | Outpatient (REF) | payer OTHER, SELFPAY ==
[2023-09-28 10:15] LABS: Basophils Percent Auto 1.6 % (0-2); Eosinophils Absolute Auto 0.4 X10*3/uL (0.0-0.4); Eosinophils Percent Auto 16.9 % (0-4); Hematocrit 29.7 % (37.0-47.0); Imm Gran Abs Auto 0.02 X10*3/uL (0.00-0.03); Imm Gran Pct Auto 0.8 % (0.0-0.4); Lymphocytes Percent Auto 41.2 % (20-40); MANUAL DIFF FLAG SCAN; Mean Corpuscular HGB Conc 30.3 g/dl (31.0-35.0); Mean Corpuscular Hemoglobin 29.9 pg (27.0-33.0); Mean Corpuscular Volume 98.7 fL (80.0-98.0); Mean Platelet Volume 12.2 fL (9.4-12.3); Monocytes Absolute Auto 0.3 X10*3/uL (0.1-1.2); Monocytes Percent Auto 13.6 % (2-11); Neutrophils Absolute Auto 0.6 x10*3/uL (2.0-8.3); Neutrophils Percent Auto 25.9 % (45-73); Platelet Count 121 X10*3/uL (160-400); Red Blood Count 3.01 X10*6/uL (4.20-5.50); Red Cell Distribution Width 16.2 % (11.0-16.0); SCAN SMEAR FLAG 1; White Blood Count 2.4 X10*3/uL (4.8-10.8)
[2023-09-28 10:50] LABS: Alanine Aminotransferase 5 U/L (0-31); Albumin Level 2.7 g/dL (3.5-5.0); Alkaline Phosphatase 56 U/L (39-117); Anion Gap 10 (12-20); Aspartate Amino Transferase 8 U/L (5-31); Bilirubin Total 0.3 mg/dL (0.0-1.0); Blood Urea Nitrogen 15 mg/dL (9-16); Calcium 8.3 mg/dL (8.4-10.2); Carbon Dioxide 26 mmol/L (22-29); Chloride 114 mmol/L (96-108); Estimated Glomerular Filt Rate > 60; Glucose Random 86 mg/dL (60-115); Potassium 3.6 mmol/L (3.3-5.1); Sodium 146 mmol/L (135-145); Total Protein 5.2 g/dL (6.5-8.0)
[2023-09-28 11:01] LABS: SLIDE REVIEW VERIFIED
== END 2023-09-28 08:10 | disposition home or self-care (01) ==
LOC: HO.LHD 08:09
PROVIDERS: Visit Provider Internal Medicine Medical Oncology
DX: R76.9 Abnormal immunological finding in serum, unspecified (principal)
CPT/HCPCS: 36415; 80053; 85025

== ENCOUNTER 2023-10-05 06:54 | Outpatient (REF) | payer OTHER, SELFPAY ==
[2023-10-05 10:20] LABS: MANUAL DIFF FLAG NO
[2023-10-05 10:21] LABS: Basophils Absolute Auto 0.1 X10*3/uL (0.0-0.2); Basophils Percent Auto 2.2 % (0-2); Eosinophils Absolute Auto 0.5 X10*3/uL (0.0-0.4); Eosinophils Percent Auto 14.8 % (0-4); Hematocrit 28.9 % (37.0-47.0); Hemoglobin 9.1 g/dl (12.0-16.0); Imm Gran Abs Auto 0.01 X10*3/uL (0.00-0.03); Imm Gran Pct Auto 0.3 % (0.0-0.4); Lymphocytes Absolute Auto 1.2 X10*3/uL (1.2-4.9); Lymphocytes Percent Auto 36.3 % (20-40); Mean Corpuscular HGB Conc 31.5 g/dl (31.0-35.0); Mean Corpuscular Hemoglobin 30.7 pg (27.0-33.0); Mean Corpuscular Volume 97.6 fL (80.0-98.0); Mean Platelet Volume 11.5 fL (9.4-12.3); Monocytes Absolute Auto 0.3 X10*3/uL (0.1-1.2); Monocytes Percent Auto 9.8 % (2-11); Neutrophils Absolute Auto 1.2 x10*3/uL (2.0-8.3); Neutrophils Percent Auto 36.6 % (45-73); Platelet Count 159 X10*3/uL (160-400); Red Blood Count 2.96 X10*6/uL (4.20-5.50); White Blood Count 3.2 X10*3/uL (4.8-10.8)
[2023-10-05 10:37] LABS: Alanine Aminotransferase 5 U/L (0-31); Albumin Level 2.7 g/dL (3.5-5.0); Alkaline Phosphatase 60 U/L (39-117); Anion Gap 11 (12-20); Aspartate Amino Transferase 13 U/L (5-31); Bilirubin Total 0.2 mg/dL (0.0-1.0); Blood Urea Nitrogen 14 mg/dL (9-16); Calcium 7.9 mg/dL (8.4-10.2); Carbon Dioxide 23 mmol/L (22-29); Chloride 114 mmol/L (96-108); Estimated Glomerular Filt Rate > 60; Glucose Random 91 mg/dL (60-115); Potassium 3.8 mmol/L (3.3-5.1); Sodium 144 mmol/L (135-145); Total Protein 5.5 g/dL (6.5-8.0)
== END 2023-10-05 06:55 | disposition home or self-care (01) ==
LOC: HO.LHD 06:54
PROVIDERS: Visit Provider Internal Medicine Medical Oncology
DX: C90.00 Multiple myeloma not having achieved remission (principal)
CPT/HCPCS: 36415; 80053; 85025

== ENCOUNTER 2023-10-12 06:44 | Outpatient (REF) | payer OTHER, SELFPAY ==
[2023-10-12 11:14] LABS: MANUAL DIFF FLAG NO
[2023-10-12 11:38] LABS: Alanine Aminotransferase 5 U/L (0-31); Albumin Level 2.7 g/dL (3.5-5.0); Alkaline Phosphatase 51 U/L (39-117); Anion Gap 9 (12-20); Aspartate Amino Transferase 10 U/L (5-31); Basophils Absolute Auto 0.1 X10*3/uL (0.0-0.2); Basophils Percent Auto 1.5 % (0-2); Bilirubin Total 0.2 mg/dL (0.0-1.0); Blood Urea Nitrogen 20 mg/dL (9-16); Calcium 8.3 mg/dL (8.4-10.2); Carbon Dioxide 26 mmol/L (22-29); Chloride 112 mmol/L (96-108); Eosinophils Absolute Auto 0.2 X10*3/uL (0.0-0.4); Eosinophils Percent Auto 5.2 % (0-4); Estimated Glomerular Filt Rate 57; Glucose Random 83 mg/dL (60-115); Hematocrit 28.7 % (37.0-47.0); Hemoglobin 9.1 g/dl (12.0-16.0); Imm Gran Abs Auto 0.01 X10*3/uL (0.00-0.03); Imm Gran Pct Auto 0.3 % (0.0-0.4); Lymphocytes Absolute Auto 1.4 X10*3/uL (1.2-4.9); Lymphocytes Percent Auto 41.9 % (20-40); Mean Corpuscular HGB Conc 31.7 g/dl (31.0-35.0); Mean Corpuscular Hemoglobin 30.3 pg (27.0-33.0); Mean Corpuscular Volume 95.7 fL (80.0-98.0); Mean Platelet Volume 11.3 fL (9.4-12.3); Monocytes Absolute Auto 0.3 X10*3/uL (0.1-1.2); Monocytes Percent Auto 8.1 % (2-11); Neutrophils Absolute Auto 1.5 x10*3/uL (2.0-8.3); Platelet Count 177 X10*3/uL (160-400); Potassium 3.6 mmol/L (3.3-5.1); Red Cell Distribution Width 16.2 % (11.0-16.0); Sodium 143 mmol/L (135-145); Total Protein 5.3 g/dL (6.5-8.0); White Blood Count 3.4 X10*3/uL (4.8-10.8)
== END 2023-10-12 06:45 | disposition home or self-care (01) ==
LOC: HO.LHD 06:44
PROVIDERS: Visit Provider Internal Medicine Medical Oncology
DX: Z13.89 Encounter for screening for other disorder (principal)
CPT/HCPCS: 36415; 80053; 85025

== ENCOUNTER 2023-10-19 07:09 | Outpatient (REF) | payer OTHER, SELFPAY ==
[2023-10-19 12:03] LABS: Basophils Absolute Auto 0.1 X10*3/uL (0.0-0.2); Basophils Percent Auto 1.3 % (0-2); Eosinophils Absolute Auto 0.2 X10*3/uL (0.0-0.4); Eosinophils Percent Auto 3.8 % (0-4); Hematocrit 31.3 % (37.0-47.0); Imm Gran Abs Auto 0.05 X10*3/uL (0.00-0.03); Imm Gran Pct Auto 1.1 % (0.0-0.4); Lymphocytes Absolute Auto 1.8 X10*3/uL (1.2-4.9); Lymphocytes Percent Auto 40.6 % (20-40); MANUAL DIFF FLAG SCAN; Mean Corpuscular HGB Conc 31.9 g/dl (31.0-35.0); Mean Corpuscular Hemoglobin 30.2 pg (27.0-33.0); Mean Corpuscular Volume 94.6 fL (80.0-98.0); Monocytes Absolute Auto 0.3 X10*3/uL (0.1-1.2); Monocytes Percent Auto 7.5 % (2-11); Neutrophils Absolute Auto 2.1 x10*3/uL (2.0-8.3); Neutrophils Percent Auto 45.7 % (45-73); PLT CLUMP 1; Red Blood Count 3.31 X10*6/uL (4.20-5.50); SCAN SMEAR FLAG 1
[2023-10-19 12:04] LABS: White Blood Count 4.5 X10*3/uL (4.8-10.8)
[2023-10-19 12:05] LABS: Alanine Aminotransferase 9 U/L (0-31); Alkaline Phosphatase 53 U/L (39-117); Anion Gap 10 (12-20); Aspartate Amino Transferase 15 U/L (5-31); Bilirubin Total 0.3 mg/dL (0.0-1.0); Blood Urea Nitrogen 16 mg/dL (9-16); Calcium 8.4 mg/dL (8.4-10.2); Carbon Dioxide 17 mmol/L (22-29); Chloride 118 mmol/L (96-108); Estimated Glomerular Filt Rate > 60; Glucose Random 92 mg/dL (60-115); Potassium 4.7 mmol/L (3.3-5.1); Sodium 140 mmol/L (135-145); Total Protein 5.9 g/dL (6.5-8.0)
[2023-10-19 13:19] LABS: Mean Platelet Volume 11.4 fL (9.4-12.3)
[2023-10-19 13:20] LABS: Platelet Count 117 X10*3/uL (160-400); SLIDE REVIEW VERIFIED
== END 2023-10-19 07:10 | disposition home or self-care (01) ==
LOC: HO.LHD 07:09
PROVIDERS: Visit Provider Internal Medicine Medical Oncology
DX: R77.9 Abnormality of plasma protein, unspecified (principal)
CPT/HCPCS: 36415; 80053; 85025

== ENCOUNTER 2023-10-26 07:49 | Outpatient (REF) | payer OTHER, SELFPAY ==
[2023-10-26 10:05] LABS: MANUAL DIFF FLAG NO
[2023-10-26 10:50] LABS: Basophils Percent Auto 0.5 % (0-2); Eosinophils Absolute Auto 0.2 X10*3/uL (0.0-0.4); Eosinophils Percent Auto 4.5 % (0-4); Hematocrit 30.1 % (37.0-47.0); Hemoglobin 9.8 g/dl (12.0-16.0); Imm Gran Abs Auto 0.03 X10*3/uL (0.00-0.03); Imm Gran Pct Auto 0.7 % (0.0-0.4); Lymphocytes Absolute Auto 1.1 X10*3/uL (1.2-4.9); Lymphocytes Percent Auto 27.4 % (20-40); Mean Corpuscular HGB Conc 32.6 g/dl (31.0-35.0); Mean Corpuscular Hemoglobin 30.4 pg (27.0-33.0); Mean Corpuscular Volume 93.5 fL (80.0-98.0); Mean Platelet Volume 11.1 fL (9.4-12.3); Monocytes Absolute Auto 0.3 X10*3/uL (0.1-1.2); Monocytes Percent Auto 8.2 % (2-11); Neutrophils Absolute Auto 2.4 x10*3/uL (2.0-8.3); Neutrophils Percent Auto 58.7 % (45-73); Platelet Count 137 X10*3/uL (160-400); Red Blood Count 3.22 X10*6/uL (4.20-5.50); Red Cell Distribution Width 16.4 % (11.0-16.0)
[2023-10-26 11:09] LABS: Alanine Aminotransferase 6 U/L (0-31); Albumin Level 3.1 g/dL (3.5-5.0); Alkaline Phosphatase 66 U/L (39-117); Anion Gap 10 (12-20); Aspartate Amino Transferase 11 U/L (5-31); Bilirubin Total 0.2 mg/dL (0.0-1.0); Blood Urea Nitrogen 14 mg/dL (9-16); Calcium 8.7 mg/dL (8.4-10.2); Carbon Dioxide 23 mmol/L (22-29); Chloride 109 mmol/L (96-108); Estimated Glomerular Filt Rate 46; Glucose Random 80 mg/dL (60-115); Potassium 3.8 mmol/L (3.3-5.1); Sodium 138 mmol/L (135-145); Total Protein 5.8 g/dL (6.5-8.0)
== END 2023-10-26 07:50 | disposition home or self-care (01) ==
LOC: HO.LHD 07:49
PROVIDERS: Visit Provider Internal Medicine Medical Oncology
DX: Z13.89 Encounter for screening for other disorder (principal)
CPT/HCPCS: 36415; 80053; 85025

== ENCOUNTER 2023-11-02 07:10 | Outpatient (REF) | payer OTHER, SELFPAY ==
[2023-11-02 11:33] LABS: MANUAL DIFF FLAG NO
[2023-11-02 11:59] LABS: Basophils Percent Auto 0.2 % (0-2); Eosinophils Absolute Auto 0.2 X10*3/uL (0.0-0.4); Eosinophils Percent Auto 3.7 % (0-4); Hematocrit 29.9 % (37.0-47.0); Hemoglobin 9.6 g/dl (12.0-16.0); Imm Gran Abs Auto 0.02 X10*3/uL (0.00-0.03); Imm Gran Pct Auto 0.5 % (0.0-0.4); Lymphocytes Absolute Auto 1.4 X10*3/uL (1.2-4.9); Lymphocytes Percent Auto 34.6 % (20-40); Mean Corpuscular HGB Conc 32.1 g/dl (31.0-35.0); Mean Corpuscular Hemoglobin 30.6 pg (27.0-33.0); Mean Corpuscular Volume 95.2 fL (80.0-98.0); Mean Platelet Volume 10.5 fL (9.4-12.3); Monocytes Absolute Auto 0.2 X10*3/uL (0.1-1.2); Monocytes Percent Auto 4.9 % (2-11); Neutrophils Absolute Auto 2.3 x10*3/uL (2.0-8.3); Neutrophils Percent Auto 56.1 % (45-73); Platelet Count 127 X10*3/uL (160-400); Red Blood Count 3.14 X10*6/uL (4.20-5.50); Red Cell Distribution Width 15.8 % (11.0-16.0); White Blood Count 4.1 X10*3/uL (4.8-10.8)
[2023-11-02 12:16] LABS: Alanine Aminotransferase 5 U/L (0-31); Albumin Level 3.1 g/dL (3.5-5.0); Alkaline Phosphatase 77 U/L (39-117); Anion Gap 8 (12-20); Aspartate Amino Transferase 9 U/L (5-31); Bilirubin Total 0.2 mg/dL (0.0-1.0); Blood Urea Nitrogen 20 mg/dL (9-16); Calcium 8.4 mg/dL (8.4-10.2); Carbon Dioxide 25 mmol/L (22-29); Chloride 112 mmol/L (96-108); Estimated Glomerular Filt Rate 39; Glucose Random 91 mg/dL (60-115); Potassium 3.7 mmol/L (3.3-5.1); Sodium 141 mmol/L (135-145); Total Protein 5.9 g/dL (6.5-8.0)
== END 2023-11-02 07:11 | disposition home or self-care (01) ==
LOC: HO.LHD 07:10
PROVIDERS: Visit Provider Internal Medicine Medical Oncology
DX: C90.00 Multiple myeloma not having achieved remission (principal)
CPT/HCPCS: 36415; 80053; 85025

== ENCOUNTER 2023-11-09 07:10 | Outpatient (REF) | payer OTHER, SELFPAY ==
[2023-11-09 12:00] LABS: MANUAL DIFF FLAG NO
[2023-11-09 12:10] LABS: Basophils Percent Auto 0.3 % (0-2); Eosinophils Absolute Auto 0.1 X10*3/uL (0.0-0.4); Eosinophils Percent Auto 2.1 % (0-4); Hematocrit 29.1 % (37.0-47.0); Hemoglobin 9.2 g/dl (12.0-16.0); Imm Gran Abs Auto 0.01 X10*3/uL (0.00-0.03); Imm Gran Pct Auto 0.3 % (0.0-0.4); Lymphocytes Absolute Auto 1.1 X10*3/uL (1.2-4.9); Lymphocytes Percent Auto 32.5 % (20-40); Mean Corpuscular HGB Conc 31.6 g/dl (31.0-35.0); Mean Corpuscular Hemoglobin 30.3 pg (27.0-33.0); Mean Corpuscular Volume 95.7 fL (80.0-98.0); Monocytes Absolute Auto 0.2 X10*3/uL (0.1-1.2); Monocytes Percent Auto 5.3 % (2-11); Neutrophils Percent Auto 59.5 % (45-73); Platelet Count 135 X10*3/uL (160-400); Red Blood Count 3.04 X10*6/uL (4.20-5.50); Red Cell Distribution Width 16.4 % (11.0-16.0); White Blood Count 3.4 X10*3/uL (4.8-10.8)
[2023-11-09 12:24] LABS: Alanine Aminotransferase 8 U/L (0-31); Albumin Level 3.2 g/dL (3.5-5.0); Alkaline Phosphatase 73 U/L (39-117); Anion Gap 10 (12-20); Aspartate Amino Transferase 13 U/L (5-31); Bilirubin Total 0.2 mg/dL (0.0-1.0); Blood Urea Nitrogen 17 mg/dL (9-16); Calcium 8.4 mg/dL (8.4-10.2); Carbon Dioxide 24 mmol/L (22-29); Chloride 114 mmol/L (96-108); Estimated Glomerular Filt Rate 47; Glucose Random 88 mg/dL (60-115); Sodium 144 mmol/L (135-145); Total Protein 5.9 g/dL (6.5-8.0)
== END 2023-11-09 07:11 | disposition home or self-care (01) ==
LOC: HO.LHD 07:10
PROVIDERS: Visit Provider Internal Medicine Medical Oncology
DX: C90.00 Multiple myeloma not having achieved remission (principal)
CPT/HCPCS: 36415; 80053; 85025

== ENCOUNTER 2023-11-16 07:32 | Outpatient (REF) | payer OTHER, SELFPAY ==
[2023-11-16 11:09] LABS: MANUAL DIFF FLAG NO
[2023-11-16 12:03] LABS: Basophils Percent Auto 0.3 % (0-2); Eosinophils Absolute Auto 0.1 X10*3/uL (0.0-0.4); Eosinophils Percent Auto 2.2 % (0-4); Hematocrit 27.8 % (37.0-47.0); Imm Gran Abs Auto 0.01 X10*3/uL (0.00-0.03); Imm Gran Pct Auto 0.3 % (0.0-0.4); Mean Corpuscular HGB Conc 32.4 g/dl (31.0-35.0); Mean Corpuscular Hemoglobin 31.8 pg (27.0-33.0); Mean Corpuscular Volume 98.2 fL (80.0-98.0); Mean Platelet Volume 10.2 fL (9.4-12.3); Monocytes Absolute Auto 0.3 X10*3/uL (0.1-1.2); Monocytes Percent Auto 9.8 % (2-11); Neutrophils Absolute Auto 1.8 x10*3/uL (2.0-8.3); Neutrophils Percent Auto 56.4 % (45-73); Platelet Count 174 X10*3/uL (160-400); Red Blood Count 2.83 X10*6/uL (4.20-5.50); White Blood Count 3.2 X10*3/uL (4.8-10.8)
[2023-11-16 12:20] LABS: Alanine Aminotransferase 5 U/L (0-31); Albumin Level 3.1 g/dL (3.5-5.0); Alkaline Phosphatase 74 U/L (39-117); Anion Gap 11 (12-20); Aspartate Amino Transferase 10 U/L (5-31); Bilirubin Total 0.2 mg/dL (0.0-1.0); Blood Urea Nitrogen 23 mg/dL (9-16); Calcium 8.7 mg/dL (8.4-10.2); Carbon Dioxide 24 mmol/L (22-29); Chloride 111 mmol/L (96-108); Estimated Glomerular Filt Rate 45; Glucose Random 113 mg/dL (60-115); Potassium 3.8 mmol/L (3.3-5.1); Sodium 142 mmol/L (135-145); Total Protein 5.8 g/dL (6.5-8.0)
== END 2023-11-16 07:33 | disposition home or self-care (01) ==
LOC: HO.LHD 07:32
PROVIDERS: Visit Provider Internal Medicine Medical Oncology
DX: Z13.89 Encounter for screening for other disorder (principal)
CPT/HCPCS: 36415; 80053; 85025

== ENCOUNTER 2023-11-20 10:33 | Outpatient (AMB) | payer OTHER, SELFPAY ==
[2023-11-20 10:40] VITALS: BP 90/68; PULSE 136; O2SAT 99; BMI 24.7
--- NOTE | 2023-11-20 10:40 | HO.NEPHOV_ITS ---
Vital Signs 11/20/23 10:40 Height 5 ft 1 in Weight 131 lb BMI 24.7 BP 90/68 Blood Pressure Location Rt brachial Position Sitting Pulse 136 H Pulse Source Pulse Oximeter Pulse Oximetry (%) 99 Oxygen Delivery Method Room Air Intake Visit Reasons: CKD/HTN November fu/ Mailbox full Accompanied by: Grand Child Allergies No Known Allergies [No Known Allergies*] Allergy (Verified 11/20/23 10:42) HPI Comments Details: Elderly woman with multiple myeloma and an episode of ELEONORA. She was accompanied by her caregiver. According to caregiver patient has been feeling tired. She has been very picky with her food and does not take her supplements. No new issues today Bactrim DS 3 x week has been added in October 2023 [facility] Medical History CKD (chronic kidney disease) Sepsis Tubular adenoma of colon Bilateral hearing loss Schizophrenia Asthma GERD (gastroesophageal reflux disease) Hyperlipidemia Hypertension Surgical History History of total hysterectomy History of lumpectomy Family History Father Coronary artery disease High cholesterol Diabetes mellitus CVD (cardiovascular disease) Mother Alzheimer's disease Brother History of CVA (cerebrovascular accident) Stroke Sister History of CVA (cerebrovascular accident) Stroke Son No problems noted. Sister No problems noted. Sister No problems noted. Sister No problems noted. Sister No problems noted. Sister No problems noted. Brother No problems noted. Brother No problems noted. Brother No problems noted. Brother No problems noted. Brother No problems noted. Brother No problems noted. Other Hypertension Social History Household Members: Caregiver Household Members Other:: granddaughter. Housing: Apartment Are you a primary chiropractic care to a significant other at home: No Do you presently have visiting nurse or other home services: No Alcohol intake: never Patient Tobacco Use Status: Former Tobacco user Quit Date: 2017 e-Cigarette/Vaping Use: Never Used Advance Directives Date on File: 04/15/18 service: No Current occupational status: retired Cognitive needs: No Hearing needs: No Vision needs: Yes Physical Exam Vital Signs: Last Vital Signs Pulse 136 H 11/20/23 10:40 BP 90/68 11/20/23 10:40 Pulse Ox 99 11/20/23 10:40 Oxygen Delivery Method Room Air 11/20/23 10:40 BMI result Body Mass Index 24.7 Neck Neck: Yes supple Resp Auscultation: clear to auscultation bilaterally Cardio Palpation: no palpable S3 Heart sounds: no rubs GI Palpation (GI): Soft to palpation Auscultation: normal bowel sounds Neuro Motor exam (neuro): no asterixis Results Reviewed Nephrology Results: 2 Hgb 9.0 g/dl (12.0-16.0) L 11/16/23 WBC 3.2 X10*3/uL (4.8-10.8) L 11/16/23 Plt Count 174 X10*3/uL (160-400) 11/16/23 Sodium 142 mmol/L (135-145) 11/16/23 Potassium 3.8 mmol/L (3.3-5.1) 11/16/23 Chloride 111 mmol/L (96-108) H 11/16/23 Carbon Dioxide 24 mmol/L (22-29) 11/16/23 BUN 23 mg/dL (9-16) H 11/16/23 Creatinine 1.17 mg/dL (0.5-1.4) 11/16/23 Calcium 8.7 mg/dL (8.4-10.2) 11/16/23 Assessment & Plan Assessment & Plan (1) CKD (chronic kidney disease): Code(s): N18.9 - Chronic kidney disease, unspecified Category: Medical Plan: Chronic kidney disease in the setting of multiple myeloma. The could be some age-related loss of glomerular like. Mild increase in creatinine due to Bactrim (2) Anemia: Code(s): D64.9 - Anemia, unspecified Category: Medical Plan: Anemia setting of multiple myeloma next hemoglobin is reasonably stable She follows with a Dr. Veloz (3) Multiple myeloma: Code(s): C90.00 - Multiple myeloma not having achieved remission Category: Medical Qualifiers: Multiple myeloma remission status: unspecified Qualified Code(s): C90.00 - Multiple myeloma not having achieved remission Plan: She has been treated with Revlimid. She has follow-up appointment with Dr. Veloz (4) Hypertension: Code(s): I10 - Essential (primary) hypertension Category: Medical Plan History of hypertension She is off all meds Today the blood pressure has been rather low. Caregiver will monitor blood pressure at home. Coding Level of Care Code Est Pt Level 4 (76410) Diagnoses CKD (chronic kidney disease) N18.9 Anemia D64.9 Multiple myeloma C90.00 Multiple myeloma remission status: unspecified Hypertension I10
== END 2023-11-20 10:59 | disposition home or self-care (01) ==
PROVIDERS: PCP Internal Medicine; Visit Provider Internal Medicine Hypertension Specialist
DX: I12.9 Hypertensive chronic kidney disease with stage 1 through stage 4 chronic kidney disease, or unspecified chronic kidney disease (principal); N18.9 Chronic kidney disease, unspecified; C90.00 Multiple myeloma not having achieved remission; D63.1 Anemia in chronic kidney disease
CPT/HCPCS: 99214

== ENCOUNTER → 2023-11-20 10:33 | Outpatient (BNVA) | payer OTHER, SELFPAY | PROVIDERS: PCP Internal Medicine; Visit Provider Internal Medicine Hypertension Specialist | DX: I12.9 Hypertensive chronic kidney disease with stage 1 through stage 4 chronic kidney disease, or unspecified chronic kidney disease (principal); N18.9 Chronic kidney disease, unspecified; D64.9 Anemia, unspecified; C90.00 Multiple myeloma not having achieved remission | CPT/HCPCS: 99212 ==

== ENCOUNTER 2023-11-23 06:54 | Outpatient (REF) | payer OTHER, SELFPAY ==
[2023-11-23 11:00] LABS: MANUAL DIFF FLAG NO
[2023-11-23 11:09] LABS: Basophils Percent Auto 0.4 % (0-2); Eosinophils Absolute Auto 0.1 X10*3/uL (0.0-0.4); Eosinophils Percent Auto 1.1 % (0-4); Imm Gran Abs Auto 0.02 X10*3/uL (0.00-0.03); Imm Gran Pct Auto 0.3 % (0.0-0.4); Lymphocytes Percent Auto 14.8 % (20-40); Mean Corpuscular HGB Conc 32.4 g/dl (31.0-35.0); Mean Corpuscular Hemoglobin 31.3 pg (27.0-33.0); Mean Corpuscular Volume 96.6 fL (80.0-98.0); Mean Platelet Volume 10.9 fL (9.4-12.3); Monocytes Absolute Auto 0.4 X10*3/uL (0.1-1.2); Monocytes Percent Auto 5.2 % (2-11); Neutrophils Absolute Auto 5.5 x10*3/uL (2.0-8.3); Neutrophils Percent Auto 78.2 % (45-73); Platelet Count 175 X10*3/uL (160-400); Red Blood Count 3.52 X10*6/uL (4.20-5.50); Red Cell Distribution Width 16.8 % (11.0-16.0)
[2023-11-23 11:25] LABS: Alanine Aminotransferase 5 U/L (0-31); Albumin Level 3.6 g/dL (3.5-5.0); Alkaline Phosphatase 71 U/L (39-117); Anion Gap 14 (12-20); Aspartate Amino Transferase 12 U/L (5-31); Bilirubin Total 0.2 mg/dL (0.0-1.0); Blood Urea Nitrogen 11 mg/dL (9-16); Calcium 9.2 mg/dL (8.4-10.2); Carbon Dioxide 22 mmol/L (22-29); Chloride 109 mmol/L (96-108); Estimated Glomerular Filt Rate 53; Glucose Random 119 mg/dL (60-115); Potassium 3.8 mmol/L (3.3-5.1); Sodium 141 mmol/L (135-145)
== END 2023-11-23 06:55 | disposition home or self-care (01) ==
LOC: HO.LHD 06:54
PROVIDERS: Visit Provider Internal Medicine Medical Oncology
DX: C90.00 Multiple myeloma not having achieved remission (principal)
CPT/HCPCS: 36415; 80053; 85025

== ENCOUNTER 2023-11-30 07:42 | Outpatient (REF) | payer OTHER, SELFPAY ==
[2023-11-30 11:59] LABS: MANUAL DIFF FLAG NO
[2023-11-30 12:06] LABS: Basophils Percent Auto 0.4 % (0-2); Eosinophils Absolute Auto 0.1 X10*3/uL (0.0-0.4); Eosinophils Percent Auto 1.7 % (0-4); Hematocrit 30.8 % (37.0-47.0); Hemoglobin 9.9 g/dl (12.0-16.0); Imm Gran Abs Auto 0.03 X10*3/uL (0.00-0.03); Imm Gran Pct Auto 0.6 % (0.0-0.4); Lymphocytes Absolute Auto 1.2 X10*3/uL (1.2-4.9); Lymphocytes Percent Auto 21.9 % (20-40); Mean Corpuscular HGB Conc 32.1 g/dl (31.0-35.0); Mean Corpuscular Hemoglobin 31.6 pg (27.0-33.0); Mean Corpuscular Volume 98.4 fL (80.0-98.0); Mean Platelet Volume 10.7 fL (9.4-12.3); Monocytes Absolute Auto 0.4 X10*3/uL (0.1-1.2); Monocytes Percent Auto 7.4 % (2-11); Neutrophils Absolute Auto 3.6 x10*3/uL (2.0-8.3); Platelet Count 160 X10*3/uL (160-400); Red Blood Count 3.13 X10*6/uL (4.20-5.50); Red Cell Distribution Width 16.5 % (11.0-16.0); White Blood Count 5.3 X10*3/uL (4.8-10.8)
[2023-11-30 12:21] LABS: Alanine Aminotransferase 5 U/L (0-31); Albumin Level 3.2 g/dL (3.5-5.0); Alkaline Phosphatase 58 U/L (39-117); Anion Gap 10 (12-20); Aspartate Amino Transferase 12 U/L (5-31); Bilirubin Total 0.3 mg/dL (0.0-1.0); Blood Urea Nitrogen 14 mg/dL (9-16); Calcium 8.2 mg/dL (8.4-10.2); Carbon Dioxide 21 mmol/L (22-29); Chloride 113 mmol/L (96-108); Estimated Glomerular Filt Rate > 60; Glucose Random 84 mg/dL (60-115); Potassium 3.4 mmol/L (3.3-5.1); Sodium 141 mmol/L (135-145)
== END 2023-11-30 07:43 | disposition home or self-care (01) ==
LOC: HO.LHD 07:42
PROVIDERS: Family Medicine; Visit Provider Internal Medicine Medical Oncology
DX: Z51.81 Encounter for therapeutic drug level monitoring (principal); Z79.899 Other long term (current) drug therapy
CPT/HCPCS: 36415; 80053; 85025

== ENCOUNTER 2023-12-07 07:14 | Outpatient (REF) | payer OTHER, SELFPAY | END 2023-12-07 07:15 | disposition home or self-care (01) | LOC: HO.LHD 07:14 | PROVIDERS: Visit Provider Internal Medicine Medical Oncology | DX: Z13.89 Encounter for screening for other disorder (principal) ==

== ENCOUNTER 2023-12-14 08:23 | Outpatient (REF) | payer OTHER, SELFPAY ==
[2023-12-14 12:22] LABS: MANUAL DIFF FLAG NO
[2023-12-14 12:24] LABS: Basophils Percent Auto 0.5 % (0-2); Eosinophils Absolute Auto 0.3 X10*3/uL (0.0-0.4); Eosinophils Percent Auto 7.1 % (0-4); Hematocrit 30.5 % (37.0-47.0); Imm Gran Abs Auto 0.01 X10*3/uL (0.00-0.03); Imm Gran Pct Auto 0.3 % (0.0-0.4); Lymphocytes Absolute Auto 0.9 X10*3/uL (1.2-4.9); Lymphocytes Percent Auto 24.7 % (20-40); Mean Corpuscular HGB Conc 32.8 g/dl (31.0-35.0); Mean Corpuscular Hemoglobin 31.5 pg (27.0-33.0); Mean Corpuscular Volume 96.2 fL (80.0-98.0); Monocytes Absolute Auto 0.5 X10*3/uL (0.1-1.2); Monocytes Percent Auto 12.6 % (2-11); Neutrophils Percent Auto 54.8 % (45-73); Red Blood Count 3.17 X10*6/uL (4.20-5.50); Red Cell Distribution Width 15.4 % (11.0-16.0); White Blood Count 3.6 X10*3/uL (4.8-10.8)
[2023-12-14 12:39] LABS: Alanine Aminotransferase 6 U/L (0-31); Albumin Level 3.1 g/dL (3.5-5.0); Alkaline Phosphatase 60 U/L (39-117); Anion Gap 11 (12-20); Aspartate Amino Transferase 11 U/L (5-31); Bilirubin Total 0.2 mg/dL (0.0-1.0); Blood Urea Nitrogen 9 mg/dL (9-16); Carbon Dioxide 26 mmol/L (22-29); Chloride 111 mmol/L (96-108); Estimated Glomerular Filt Rate > 60; Glucose Random 116 mg/dL (60-115); Potassium 3.2 mmol/L (3.3-5.1); Sodium 145 mmol/L (135-145); Total Protein 5.7 g/dL (6.5-8.0)
[2023-12-14 13:19] LABS: Mean Platelet Volume 10.2 fL (9.4-12.3); Platelet Count 107 X10*3/uL (160-400)
== END 2023-12-14 08:24 | disposition home or self-care (01) ==
LOC: HO.LHD 08:23
PROVIDERS: Visit Provider Internal Medicine Medical Oncology
DX: Z88.8 Allergy status to other drugs, medicaments and biological substances (principal); Z79.899 Other long term (current) drug therapy
CPT/HCPCS: 36415; 80053; 85025

== ENCOUNTER 2023-12-21 07:01 | Outpatient (REF) | payer OTHER, SELFPAY ==
[2023-12-21 10:52] LABS: Hematocrit 30.1 % (37.0-47.0); Hemoglobin 9.7 g/dl (12.0-16.0); Mean Corpuscular HGB Conc 32.2 g/dl (31.0-35.0); Mean Corpuscular Hemoglobin 31.7 pg (27.0-33.0); Mean Corpuscular Volume 98.4 fL (80.0-98.0); Mean Platelet Volume 10.9 fL (9.4-12.3); Platelet Count 115 X10*3/uL (160-400); Red Blood Count 3.06 X10*6/uL (4.20-5.50); Red Cell Distribution Width 15.9 % (11.0-16.0)
[2023-12-21 10:53] LABS: WBC ABN SCTR FOR CBC 1
[2023-12-21 11:12] LABS: Alanine Aminotransferase < 5 U/L (0-31); Alkaline Phosphatase 63 U/L (39-117); Anion Gap 10 (12-20); Aspartate Amino Transferase 9 U/L (5-31); Bilirubin Total 0.2 mg/dL (0.0-1.0); Blood Urea Nitrogen 11 mg/dL (9-16); Calcium 8.1 mg/dL (8.4-10.2); Carbon Dioxide 25 mmol/L (22-29); Chloride 113 mmol/L (96-108); Estimated Glomerular Filt Rate > 60; Glucose Random 86 mg/dL (60-115); Potassium 3.8 mmol/L (3.3-5.1); Sodium 144 mmol/L (135-145); Total Protein 5.6 g/dL (6.5-8.0)
[2023-12-21 11:15] LABS: Band Neutrophils Percent 3 % (3-5); Basophils Percent Manual 3 % (0-2); Eosinophils Percent Manual 8 % (0-4); Lymphocytes Percent Manual 29 % (20-40); Monocytes Percent Manual 8 % (2-11); Neutrophils Percent Manual 49 % (45-73)
[2023-12-21 11:26] LABS: Ovalocytes 1+ (5-14) /OIF; RBC Morphology NOTED
[2023-12-21 11:27] LABS: Platelet Estimate SLIGHTLY DECREASED (NORMAL); Platelet Morphology Comment NORM
[2023-12-21 11:28] LABS: Basophils Abs Manual 0.1 X10*3/uL (0.0-0.2); Eosinophils Absolute Manual 0.3 X10*3/uL (0.0-0.4); Lymphocytes Absolute Manual 1.1 X10*3/uL (1.2-4.9); Monocytes Absolute Manual 0.3 X10*3/uL (0.1-1.2); Neutrophils Absolute Manual 1.9 X10*3/uL (2.0-8.3); White Blood Count 3.7 X10*3/uL (4.8-10.8)
== END 2023-12-21 07:02 | disposition home or self-care (01) ==
LOC: HO.LHD 07:01
PROVIDERS: Visit Provider Internal Medicine Medical Oncology
DX: R77.9 Abnormality of plasma protein, unspecified (principal)
CPT/HCPCS: 36415; 80053; 85007; 85027

== ENCOUNTER 2023-12-28 07:46 | Outpatient (REF) | payer OTHER, SELFPAY ==
[2023-12-28 10:44] LABS: MANUAL DIFF FLAG NO
[2023-12-28 11:26] LABS: Basophils Absolute Auto 0.1 X10*3/uL (0.0-0.2); Basophils Percent Auto 1.5 % (0-2); Eosinophils Absolute Auto 0.1 X10*3/uL (0.0-0.4); Eosinophils Percent Auto 3.6 % (0-4); Hematocrit 30.1 % (37.0-47.0); Hemoglobin 9.8 g/dl (12.0-16.0); Imm Gran Abs Auto 0.01 X10*3/uL (0.00-0.03); Imm Gran Pct Auto 0.3 % (0.0-0.4); Lymphocytes Absolute Auto 1.3 X10*3/uL (1.2-4.9); Lymphocytes Percent Auto 32.8 % (20-40); Mean Corpuscular HGB Conc 32.6 g/dl (31.0-35.0); Mean Corpuscular Hemoglobin 31.4 pg (27.0-33.0); Mean Corpuscular Volume 96.5 fL (80.0-98.0); Mean Platelet Volume 11.2 fL (9.4-12.3); Monocytes Absolute Auto 0.3 X10*3/uL (0.1-1.2); Monocytes Percent Auto 8.1 % (2-11); Neutrophils Absolute Auto 2.1 x10*3/uL (2.0-8.3); Neutrophils Percent Auto 53.7 % (45-73); Platelet Count 151 X10*3/uL (160-400); Red Blood Count 3.12 X10*6/uL (4.20-5.50); Red Cell Distribution Width 15.8 % (11.0-16.0); White Blood Count 3.9 X10*3/uL (4.8-10.8)
[2023-12-28 11:45] LABS: Alanine Aminotransferase < 5 U/L (0-31); Albumin Level 2.8 g/dL (3.5-5.0); Alkaline Phosphatase 56 U/L (39-117); Anion Gap 9 (12-20); Aspartate Amino Transferase 9 U/L (5-31); Bilirubin Total 0.3 mg/dL (0.0-1.0); Blood Urea Nitrogen 13 mg/dL (9-16); Calcium 8.2 mg/dL (8.4-10.2); Carbon Dioxide 23 mmol/L (22-29); Chloride 114 mmol/L (96-108); Estimated Glomerular Filt Rate 58; Glucose Random 104 mg/dL (60-115); Potassium 3.7 mmol/L (3.3-5.1); Sodium 142 mmol/L (135-145); Total Protein 5.5 g/dL (6.5-8.0)
== END 2023-12-28 07:47 | disposition home or self-care (01) ==
LOC: HO.LHD 07:46
PROVIDERS: Visit Provider Internal Medicine Medical Oncology
DX: C90.00 Multiple myeloma not having achieved remission (principal); Z79.899 Other long term (current) drug therapy
CPT/HCPCS: 36415; 80053; 85025

== ENCOUNTER 2024-01-04 07:24 | Outpatient (REF) | payer OTHER, SELFPAY ==
[2024-01-04 10:46] LABS: MANUAL DIFF FLAG NO
[2024-01-04 10:47] LABS: Basophils Percent Auto 1.3 % (0-2); Eosinophils Absolute Auto 0.2 X10*3/uL (0.0-0.4); Eosinophils Percent Auto 5.2 % (0-4); Hematocrit 29.2 % (37.0-47.0); Hemoglobin 9.6 g/dl (12.0-16.0); Imm Gran Abs Auto 0.02 X10*3/uL (0.00-0.03); Imm Gran Pct Auto 0.7 % (0.0-0.4); Lymphocytes Absolute Auto 1.2 X10*3/uL (1.2-4.9); Lymphocytes Percent Auto 37.5 % (20-40); Mean Corpuscular HGB Conc 32.9 g/dl (31.0-35.0); Mean Corpuscular Hemoglobin 31.8 pg (27.0-33.0); Mean Corpuscular Volume 96.7 fL (80.0-98.0); Mean Platelet Volume 10.4 fL (9.4-12.3); Monocytes Absolute Auto 0.2 X10*3/uL (0.1-1.2); Monocytes Percent Auto 7.2 % (2-11); Neutrophils Absolute Auto 1.5 x10*3/uL (2.0-8.3); Neutrophils Percent Auto 48.1 % (45-73); Platelet Count 150 X10*3/uL (160-400); Red Blood Count 3.02 X10*6/uL (4.20-5.50); Red Cell Distribution Width 15.8 % (11.0-16.0); White Blood Count 3.1 X10*3/uL (4.8-10.8)
[2024-01-04 11:02] LABS: Alanine Aminotransferase 5 U/L (0-31); Albumin Level 2.9 g/dL (3.5-5.0); Alkaline Phosphatase 61 U/L (39-117); Anion Gap 8 (12-20); Aspartate Amino Transferase 12 U/L (5-31); Bilirubin Total 0.1 mg/dL (0.0-1.0); Blood Urea Nitrogen 20 mg/dL (9-16); Calcium 8.5 mg/dL (8.4-10.2); Carbon Dioxide 26 mmol/L (22-29); Chloride 114 mmol/L (96-108); Estimated Glomerular Filt Rate > 60; Glucose Random 94 mg/dL (60-115); Potassium 3.2 mmol/L (3.3-5.1); Sodium 145 mmol/L (135-145); Total Protein 5.4 g/dL (6.5-8.0)
== END 2024-01-04 07:25 | disposition home or self-care (01) ==
LOC: HO.LHD 07:24
PROVIDERS: Visit Provider Internal Medicine Medical Oncology
DX: C90.00 Multiple myeloma not having achieved remission (principal)
CPT/HCPCS: 36415; 80053; 85025

== ENCOUNTER 2024-01-11 07:24 | Outpatient (REF) | payer OTHER, SELFPAY ==
[2024-01-11 10:53] LABS: MANUAL DIFF FLAG NO
[2024-01-11 11:23] LABS: Basophils Percent Auto 0.5 % (0-2); Eosinophils Absolute Auto 0.2 X10*3/uL (0.0-0.4); Eosinophils Percent Auto 5.3 % (0-4); Hematocrit 33.6 % (37.0-47.0); Hemoglobin 10.7 g/dl (12.0-16.0); Imm Gran Abs Auto 0.01 X10*3/uL (0.00-0.03); Imm Gran Pct Auto 0.3 % (0.0-0.4); Lymphocytes Absolute Auto 1.5 X10*3/uL (1.2-4.9); Lymphocytes Percent Auto 40.3 % (20-40); Mean Corpuscular HGB Conc 31.8 g/dl (31.0-35.0); Mean Corpuscular Hemoglobin 31.3 pg (27.0-33.0); Mean Corpuscular Volume 98.2 fL (80.0-98.0); Monocytes Absolute Auto 0.3 X10*3/uL (0.1-1.2); Monocytes Percent Auto 7.6 % (2-11); Neutrophils Absolute Auto 1.8 x10*3/uL (2.0-8.3); Platelet Count 150 X10*3/uL (160-400); Red Blood Count 3.42 X10*6/uL (4.20-5.50); Red Cell Distribution Width 15.2 % (11.0-16.0); White Blood Count 3.8 X10*3/uL (4.8-10.8)
[2024-01-11 12:03] LABS: Alanine Aminotransferase < 5 U/L (0-31); Albumin Level 3.3 g/dL (3.5-5.0); Alkaline Phosphatase 54 U/L (39-117); Anion Gap 9 (12-20); Aspartate Amino Transferase 11 U/L (5-31); Bilirubin Total 0.3 mg/dL (0.0-1.0); Blood Urea Nitrogen 16 mg/dL (9-16); Calcium 8.8 mg/dL (8.4-10.2); Carbon Dioxide 27 mmol/L (22-29); Chloride 112 mmol/L (96-108); Estimated Glomerular Filt Rate > 60; Glucose Random 87 mg/dL (60-115); Potassium 3.7 mmol/L (3.3-5.1); Sodium 144 mmol/L (135-145); Total Protein 6.1 g/dL (6.5-8.0)
== END 2024-01-11 07:25 | disposition home or self-care (01) ==
LOC: HO.LHD 07:24
PROVIDERS: Visit Provider Internal Medicine Medical Oncology
DX: C90.00 Multiple myeloma not having achieved remission (principal); Z79.899 Other long term (current) drug therapy
CPT/HCPCS: 36415; 80053; 85025

== ENCOUNTER 2024-01-18 08:33 | Outpatient (REF) | payer OTHER, SELFPAY | END 2024-01-18 08:34 | disposition home or self-care (01) | LOC: HO.LHD 08:33 | PROVIDERS: Visit Provider Internal Medicine Medical Oncology | DX: Z13.89 Encounter for screening for other disorder (principal) ==

== ENCOUNTER 2024-01-25 06:08 | Outpatient (REF) | payer OTHER, SELFPAY ==
[2024-01-25 10:59] LABS: Basophils Percent Auto 0.6 % (0-2); Eosinophils Absolute Auto 0.1 X10*3/uL (0.0-0.4); Hematocrit 33.6 % (37.0-47.0); Imm Gran Abs Auto 0.01 X10*3/uL (0.00-0.03); Imm Gran Pct Auto 0.2 % (0.0-0.4); Lymphocytes Absolute Auto 1.2 X10*3/uL (1.2-4.9); Lymphocytes Percent Auto 25.4 % (20-40); MANUAL DIFF FLAG NO; Mean Corpuscular HGB Conc 32.7 g/dl (31.0-35.0); Mean Corpuscular Hemoglobin 31.2 pg (27.0-33.0); Mean Corpuscular Volume 95.2 fL (80.0-98.0); Mean Platelet Volume 9.7 fL (9.4-12.3); Monocytes Absolute Auto 0.4 X10*3/uL (0.1-1.2); Monocytes Percent Auto 8.2 % (2-11); Neutrophils Percent Auto 62.6 % (45-73); Platelet Count 126 X10*3/uL (160-400); Red Blood Count 3.53 X10*6/uL (4.20-5.50); Red Cell Distribution Width 14.3 % (11.0-16.0); White Blood Count 4.7 X10*3/uL (4.8-10.8)
[2024-01-25 11:18] LABS: Alanine Aminotransferase < 5 U/L (0-31); Albumin Level 3.2 g/dL (3.5-5.0); Alkaline Phosphatase 54 U/L (39-117); Anion Gap 12 (12-20); Aspartate Amino Transferase 11 U/L (5-31); Bilirubin Total 0.3 mg/dL (0.0-1.0); Blood Urea Nitrogen 11 mg/dL (9-16); Calcium 8.6 mg/dL (8.4-10.2); Carbon Dioxide 19 mmol/L (22-29); Chloride 112 mmol/L (96-108); Estimated Glomerular Filt Rate > 60; Glucose Random 85 mg/dL (60-115); Potassium 3.8 mmol/L (3.3-5.1); Sodium 139 mmol/L (135-145)
== END 2024-01-25 06:09 | disposition home or self-care (01) ==
LOC: HO.LHD 06:08
PROVIDERS: Visit Provider Internal Medicine Medical Oncology
DX: C90.00 Multiple myeloma not having achieved remission (principal)
CPT/HCPCS: 36415; 80053; 85025

== ENCOUNTER 2024-02-01 08:36 | Outpatient (REF) | payer OTHER, SELFPAY ==
[2024-02-01 11:19] LABS: MANUAL DIFF FLAG NO
[2024-02-01 11:26] LABS: Basophils Percent Auto 0.3 % (0-2); Eosinophils Absolute Auto 0.1 X10*3/uL (0.0-0.4); Eosinophils Percent Auto 4.1 % (0-4); Hematocrit 31.6 % (37.0-47.0); Hemoglobin 10.4 g/dl (12.0-16.0); Imm Gran Abs Auto 0.02 X10*3/uL (0.00-0.03); Imm Gran Pct Auto 0.7 % (0.0-0.4); Lymphocytes Absolute Auto 0.9 X10*3/uL (1.2-4.9); Lymphocytes Percent Auto 30.6 % (20-40); Mean Corpuscular HGB Conc 32.9 g/dl (31.0-35.0); Mean Corpuscular Hemoglobin 31.7 pg (27.0-33.0); Mean Corpuscular Volume 96.3 fL (80.0-98.0); Mean Platelet Volume 10.9 fL (9.4-12.3); Monocytes Absolute Auto 0.1 X10*3/uL (0.1-1.2); Monocytes Percent Auto 4.8 % (2-11); Neutrophils Absolute Auto 1.7 x10*3/uL (2.0-8.3); Neutrophils Percent Auto 59.5 % (45-73); Platelet Count 123 X10*3/uL (160-400); Red Blood Count 3.28 X10*6/uL (4.20-5.50); Red Cell Distribution Width 14.4 % (11.0-16.0); White Blood Count 2.9 X10*3/uL (4.8-10.8)
[2024-02-01 12:17] LABS: Alanine Aminotransferase < 5 U/L (0-31); Albumin Level 3.3 g/dL (3.5-5.0); Alkaline Phosphatase 53 U/L (39-117); Anion Gap 12 (12-20); Aspartate Amino Transferase 10 U/L (5-31); Bilirubin Total 0.3 mg/dL (0.0-1.0); Blood Urea Nitrogen 11 mg/dL (9-16); Calcium 9.3 mg/dL (8.4-10.2); Carbon Dioxide 23 mmol/L (22-29); Chloride 114 mmol/L (96-108); Estimated Glomerular Filt Rate 57; Glucose Random 87 mg/dL (60-115); Potassium 3.6 mmol/L (3.3-5.1); Sodium 145 mmol/L (135-145); Total Protein 5.7 g/dL (6.5-8.0)
== END 2024-02-01 08:37 | disposition home or self-care (01) ==
LOC: HO.LHD 08:36
PROVIDERS: Visit Provider Internal Medicine Medical Oncology
DX: C90.00 Multiple myeloma not having achieved remission (principal)
CPT/HCPCS: 36415; 80053; 85025

== ENCOUNTER 2024-02-08 06:56 | Outpatient (REF) | payer OTHER, SELFPAY ==
[2024-02-08 11:13] LABS: MANUAL DIFF FLAG NO
[2024-02-08 11:42] LABS: Basophils Percent Auto 0.3 % (0-2); Eosinophils Absolute Auto 0.1 X10*3/uL (0.0-0.4); Eosinophils Percent Auto 2.1 % (0-4); Hematocrit 30.2 % (37.0-47.0); Hemoglobin 9.9 g/dl (12.0-16.0); Imm Gran Abs Auto 0.12 X10*3/uL (0.00-0.03); Imm Gran Pct Auto 1.9 % (0.0-0.4); Lymphocytes Absolute Auto 1.1 X10*3/uL (1.2-4.9); Lymphocytes Percent Auto 17.6 % (20-40); Mean Corpuscular HGB Conc 32.8 g/dl (31.0-35.0); Mean Corpuscular Hemoglobin 31.9 pg (27.0-33.0); Mean Corpuscular Volume 97.4 fL (80.0-98.0); Mean Platelet Volume 11.7 fL (9.4-12.3); Monocytes Absolute Auto 0.4 X10*3/uL (0.1-1.2); Monocytes Percent Auto 6.6 % (2-11); Neutrophils Absolute Auto 4.4 x10*3/uL (2.0-8.3); Neutrophils Percent Auto 71.5 % (45-73); Platelet Count 102 X10*3/uL (160-400); Red Cell Distribution Width 14.2 % (11.0-16.0); White Blood Count 6.2 X10*3/uL (4.8-10.8)
[2024-02-08 12:15] LABS: Alanine Aminotransferase 5 U/L (0-31); Alkaline Phosphatase 58 U/L (39-117); Anion Gap 9 (12-20); Aspartate Amino Transferase 10 U/L (5-31); Bilirubin Total 0.3 mg/dL (0.0-1.0); Blood Urea Nitrogen 7 mg/dL (9-16); Calcium 8.5 mg/dL (8.4-10.2); Carbon Dioxide 26 mmol/L (22-29); Chloride 112 mmol/L (96-108); Estimated Glomerular Filt Rate > 60; Glucose Random 79 mg/dL (60-115); Potassium 3.4 mmol/L (3.3-5.1); Sodium 144 mmol/L (135-145); Total Protein 5.4 g/dL (6.5-8.0)
== END 2024-02-08 06:57 | disposition home or self-care (01) ==
LOC: HO.LHD 06:56
PROVIDERS: Visit Provider Internal Medicine Medical Oncology
DX: C90.00 Multiple myeloma not having achieved remission (principal); Z79.60 Long term (current) use of unspecified immunomodulators and immunosuppressants
CPT/HCPCS: 36415; 80053; 85025

== ENCOUNTER 2024-02-15 06:52 | Outpatient (REF) | payer OTHER, SELFPAY ==
[2024-02-15 11:51] LABS: Hematocrit 31.4 % (37.0-47.0); Hemoglobin 10.3 g/dl (12.0-16.0); Mean Corpuscular HGB Conc 32.8 g/dl (31.0-35.0); Mean Corpuscular Hemoglobin 31.7 pg (27.0-33.0); Mean Corpuscular Volume 96.6 fL (80.0-98.0); Mean Platelet Volume 11.7 fL (9.4-12.3); Platelet Count 111 X10*3/uL (160-400); Red Blood Count 3.25 X10*6/uL (4.20-5.50); Red Cell Distribution Width 14.4 % (11.0-16.0)
[2024-02-15 12:19] LABS: Alanine Aminotransferase < 5 U/L (0-31); Alkaline Phosphatase 63 U/L (39-117); Anion Gap 9 (12-20); Aspartate Amino Transferase 10 U/L (5-31); Bilirubin Total 0.3 mg/dL (0.0-1.0); Blood Urea Nitrogen 11 mg/dL (9-16); Carbon Dioxide 25 mmol/L (22-29); Chloride 113 mmol/L (96-108); Estimated Glomerular Filt Rate 55; Glucose Random 121 mg/dL (60-115); Potassium 3.1 mmol/L (3.3-5.1); Sodium 144 mmol/L (135-145); Total Protein 5.5 g/dL (6.5-8.0)
[2024-02-15 13:20] LABS: Atypical Lymph Absolute Manual 0.2 x10*3/uL; Atypical Lymphs Percent Manual 5 % (0-6); Band Neutrophils Percent 6 % (3-5); Eosinophils Absolute Manual 0.2 X10*3/uL (0.0-0.4); Eosinophils Percent Manual 6 % (0-4); Lymphocytes Absolute Manual 0.6 X10*3/uL (1.2-4.9); Lymphocytes Percent Manual 20 % (20-40); Monocytes Absolute Manual 0.1 X10*3/uL (0.1-1.2); Monocytes Percent Manual 3 % (2-11); Neutrophils Percent Manual 60 % (45-73)
[2024-02-15 13:22] LABS: Basophilic Stippling 1+ (0-2) /OIF; Macrocytosis 1+ (5-14) /OIF; Microcytosis 1+ (5-14) /OIF; Platelet Estimate SLIGHTLY DECREASED (NORMAL); RBC Morphology NOTED
[2024-02-15 13:23] LABS: Platelet Morphology Comment NORMAL
== END 2024-02-15 06:53 | disposition home or self-care (01) ==
LOC: HO.LHD 06:52
PROVIDERS: Visit Provider Internal Medicine Medical Oncology
DX: C90.00 Multiple myeloma not having achieved remission (principal); Z79.60 Long term (current) use of unspecified immunomodulators and immunosuppressants; Z79.83 Long term (current) use of bisphosphonates
CPT/HCPCS: 36415; 80053; 85007; 85027

== ENCOUNTER 2024-02-22 07:01 | Outpatient (REF) | payer OTHER, SELFPAY ==
[2024-02-22 12:25] LABS: Basophils Percent Auto 1.8 % (0-2); Eosinophils Absolute Auto 0.1 X10*3/uL (0.0-0.4); Eosinophils Percent Auto 5.3 % (0-4); Hematocrit 27.2 % (37.0-47.0); Hemoglobin 8.9 g/dl (12.0-16.0); Imm Gran Abs Auto 0.01 X10*3/uL (0.00-0.03); Imm Gran Pct Auto 0.4 % (0.0-0.4); Lymphocytes Absolute Auto 1.2 X10*3/uL (1.2-4.9); Lymphocytes Percent Auto 52.2 % (20-40); MANUAL DIFF FLAG SCAN; Mean Corpuscular HGB Conc 32.7 g/dl (31.0-35.0); Mean Corpuscular Hemoglobin 31.9 pg (27.0-33.0); Mean Corpuscular Volume 97.5 fL (80.0-98.0); Mean Platelet Volume 10.8 fL (9.4-12.3); Monocytes Absolute Auto 0.2 X10*3/uL (0.1-1.2); Monocytes Percent Auto 9.6 % (2-11); Neutrophils Absolute Auto 0.7 x10*3/uL (2.0-8.3); Neutrophils Percent Auto 30.7 % (45-73); Platelet Count 148 X10*3/uL (160-400); Red Blood Count 2.79 X10*6/uL (4.20-5.50); Red Cell Distribution Width 14.6 % (11.0-16.0); SCAN SMEAR FLAG 1
[2024-02-22 12:26] LABS: White Blood Count 2.3 X10*3/uL (4.8-10.8)
[2024-02-22 12:45] LABS: SLIDE REVIEW VERIFIED
[2024-02-22 12:47] LABS: Alanine Aminotransferase 8 U/L (0-31); Albumin Level 2.6 g/dL (3.5-5.0); Alkaline Phosphatase 47 U/L (39-117); Anion Gap 9 (12-20); Aspartate Amino Transferase 12 U/L (5-31); Bilirubin Total 0.5 mg/dL (0.0-1.0); Blood Urea Nitrogen 12 mg/dL (9-16); Carbon Dioxide 22 mmol/L (22-29); Chloride 116 mmol/L (96-108); Estimated Glomerular Filt Rate > 60; Glucose Random 79 mg/dL (60-115); Potassium 3.4 mmol/L (3.3-5.1); Sodium 144 mmol/L (135-145); Total Protein 4.8 g/dL (6.5-8.0)
== END 2024-02-22 07:02 | disposition home or self-care (01) ==
LOC: HO.LHD 07:01
PROVIDERS: Visit Provider Internal Medicine Medical Oncology
DX: C90.00 Multiple myeloma not having achieved remission (principal); Z79.899 Other long term (current) drug therapy
CPT/HCPCS: 36415; 80053; 85025

== ENCOUNTER 2024-03-01 | Outpatient (REF) | payer OTHER, SELFPAY ==
[2024-02-29 10:52] LABS: MANUAL DIFF FLAG NO
[2024-02-29 10:53] LABS: Basophils Absolute Auto 0.1 X10*3/uL (0.0-0.2); Eosinophils Absolute Auto 0.1 X10*3/uL (0.0-0.4); Hematocrit 27.6 % (37.0-47.0); Hemoglobin 9.1 g/dl (12.0-16.0); Imm Gran Abs Auto 0.01 X10*3/uL (0.00-0.03); Imm Gran Pct Auto 0.3 % (0.0-0.4); Lymphocytes Absolute Auto 1.4 X10*3/uL (1.2-4.9); Lymphocytes Percent Auto 46.1 % (20-40); Mean Corpuscular Hemoglobin 31.7 pg (27.0-33.0); Mean Corpuscular Volume 96.2 fL (80.0-98.0); Mean Platelet Volume 10.3 fL (9.4-12.3); Monocytes Absolute Auto 0.3 X10*3/uL (0.1-1.2); Monocytes Percent Auto 10.4 % (2-11); Neutrophils Absolute Auto 1.1 x10*3/uL (2.0-8.3); Neutrophils Percent Auto 38.2 % (45-73); Platelet Count 152 X10*3/uL (160-400); Red Blood Count 2.87 X10*6/uL (4.20-5.50); Red Cell Distribution Width 15.6 % (11.0-16.0)
[2024-02-29 11:11] LABS: Alanine Aminotransferase 5 U/L (0-31); Albumin Level 2.6 g/dL (3.5-5.0); Alkaline Phosphatase 53 U/L (39-117); Anion Gap 8 (12-20); Aspartate Amino Transferase 10 U/L (5-31); Bilirubin Total 0.1 mg/dL (0.0-1.0); Blood Urea Nitrogen 12 mg/dL (9-16); Calcium 8.2 mg/dL (8.4-10.2); Carbon Dioxide 25 mmol/L (22-29); Chloride 114 mmol/L (96-108); Estimated Glomerular Filt Rate > 60; Glucose Random 83 mg/dL (60-115); Potassium 3.4 mmol/L (3.3-5.1); Sodium 144 mmol/L (135-145); Total Protein 4.9 g/dL (6.5-8.0)
== END 2024-03-01 00:01 | disposition home or self-care (01) ==
LOC: HO.LHD
PROVIDERS: Visit Provider Internal Medicine Medical Oncology
DX: C90.00 Multiple myeloma not having achieved remission (principal); Z79.899 Other long term (current) drug therapy
CPT/HCPCS: 36415; 80053; 85025

== ENCOUNTER 2024-03-21 06:05 | Outpatient (REF) | payer OTHER, SELFPAY ==
[2024-03-21 10:49] LABS: MANUAL DIFF FLAG NO
[2024-03-21 10:51] LABS: Basophils Percent Auto 0.5 % (0-2); Eosinophils Absolute Auto 0.3 X10*3/uL (0.0-0.4); Eosinophils Percent Auto 7.2 % (0-4); Hematocrit 32.5 % (37.0-47.0); Hemoglobin 10.3 g/dl (12.0-16.0); Imm Gran Abs Auto 0.02 X10*3/uL (0.00-0.03); Imm Gran Pct Auto 0.5 % (0.0-0.4); Lymphocytes Absolute Auto 1.1 X10*3/uL (1.2-4.9); Lymphocytes Percent Auto 29.6 % (20-40); Mean Corpuscular HGB Conc 31.7 g/dl (31.0-35.0); Mean Corpuscular Hemoglobin 30.6 pg (27.0-33.0); Mean Corpuscular Volume 96.4 fL (80.0-98.0); Mean Platelet Volume 11.4 fL (9.4-12.3); Monocytes Absolute Auto 0.3 X10*3/uL (0.1-1.2); Monocytes Percent Auto 7.5 % (2-11); Neutrophils Absolute Auto 2.1 x10*3/uL (2.0-8.3); Neutrophils Percent Auto 54.7 % (45-73); Platelet Count 143 X10*3/uL (160-400); Red Blood Count 3.37 X10*6/uL (4.20-5.50); Red Cell Distribution Width 14.6 % (11.0-16.0); White Blood Count 3.8 X10*3/uL (4.8-10.8)
[2024-03-21 11:04] LABS: Alanine Aminotransferase 5 U/L (0-31); Albumin Level 3.2 g/dL (3.5-5.0); Alkaline Phosphatase 61 U/L (39-117); Anion Gap 13 (12-20); Aspartate Amino Transferase 10 U/L (5-31); Bilirubin Total 0.2 mg/dL (0.0-1.0); Blood Urea Nitrogen 20 mg/dL (9-16); Calcium 8.8 mg/dL (8.4-10.2); Carbon Dioxide 23 mmol/L (22-29); Chloride 113 mmol/L (96-108); Estimated Glomerular Filt Rate 45; Glucose Random 92 mg/dL (60-115); Potassium 3.5 mmol/L (3.3-5.1); Sodium 145 mmol/L (135-145); Total Protein 5.8 g/dL (6.5-8.0)
== END 2024-03-21 06:06 | disposition home or self-care (01) ==
LOC: HO.LHD 06:05
PROVIDERS: Visit Provider Internal Medicine Medical Oncology
DX: C90.00 Multiple myeloma not having achieved remission (principal); Z79.899 Other long term (current) drug therapy
CPT/HCPCS: 36415; 80053; 85025

== ENCOUNTER 2024-04-01 13:16 | Outpatient (AMB) | payer OTHER, SELFPAY ==
[2024-04-01 13:20] VITALS: BP 90/64; PULSE 105; O2SAT 96; BMI 24.9
--- NOTE | 2024-04-01 13:20 | HO.NEPHOV_ITS ---
Vital Signs 04/01/24 13:20 Height 5 ft 1 in Weight 132 lb BMI 24.9 BP 90/64 Blood Pressure Location Rt brachial Position Sitting Pulse 105 H Pulse Source Pulse Oximeter Pulse Oximetry (%) 96 Oxygen Delivery Method Room Air Intake Visit Reasons: Anemia/ 4 MO FU/ Conf Circular Sawyer Stone Required: No Accompanied by: Grand Child Allergies No Known Allergies [No Known Allergies*] Allergy (Verified 04/01/24 13:23) Medication List - Last Reconciled 04/01/24 by Dean Byers MD acyclovir 400 mg PO DAILY albuterol sulfate 90 mcg/actuation 2 puffs PO Q4H PRN allopurinol 100 mg PO DAILY aspirin 81 mg PO DAILY calcium carbonate (Calcium 600) 600 mg PO TID cetirizine 10 mg PO BEDTIME cholecalciferol (vitamin D3) 2,000 mcg PO DAILY clozapine 200 mg PO BEDTIME denosumab 120 mg subcut Q8W ferrous sulfate 324 mg PO DAILY filgrastim-sndz (Zarxio) 300 mcg (0.5 mL) subcut DAILY food supplemt, lactose-reduced (Ensure Complete) Take 1 bottle of ensure 3 times a day lenalidomide (Revlimid) 15 mg PO DAILY [Lift recliner chair As directed] loperamide (Anti-Diarrheal (loperamide)) 2 mg PO DAILY PRN lorazepam (Ativan) 1 mg PO DAILY PRN [Manual Wheelchair As directed] omeprazole 20 mg PO QAM ondansetron 4 mg PO Q4H PRN sennosides (senna) 2 tabs PO DAILY PRN sulfamethoxazole-trimethoprim 800-160 mg (Bactrim DS) 1 tab PO 3XW HPI Comments Details: Elderly woman with multiple myeloma and an episode of ELEONORA. She was accompanied by her caregiver. According to caregiver patient has been feeling tired. She has been very picky with her food and does not take her supplements. Bactrim DS 3 x week has been added in October 2023 Accompanied by granddaughter. No new issues today PFSH Medical History Chemotherapy-induced fatigue Chemotherapy adverse reaction CKD (chronic kidney disease) Sepsis Tubular adenoma of colon Bilateral hearing loss Schizophrenia Asthma GERD (gastroesophageal reflux disease) Hyperlipidemia Hypertension Surgical History History of total hysterectomy History of lumpectomy Family History Father Coronary artery disease High cholesterol Diabetes mellitus CVD (cardiovascular disease) Mother Alzheimer's disease Brother History of CVA (cerebrovascular accident) Stroke Sister History of CVA (cerebrovascular accident) Stroke Son No problems noted. Sister No problems noted. Sister No problems noted. Sister No problems noted. Sister No problems noted. Sister No problems noted. Brother No problems noted. Brother No problems noted. Brother No problems noted. Brother No problems noted. Brother No problems noted. Brother No problems noted. Other Hypertension Social History Household Members: Caregiver Household Members Other:: granddaughter. Housing: Apartment Are you a primary child care center assistant director to a significant other at home: No Do you presently have visiting nurse or other home services: No Alcohol intake: never Patient Tobacco Use Status: Former Tobacco user e-Cigarette/Vaping Use: Never Used Advance Directives Date on File: 04/15/18 service: No Current occupational status: retired Cognitive needs: No Hearing needs: No Vision needs: Yes Physical Exam Vital Signs: Last Vital Signs Pulse 105 H 04/01/24 13:20 BP 90/64 04/01/24 13:20 Pulse Ox 96 04/01/24 13:20 Oxygen Delivery Method Room Air 04/01/24 13:20 BMI result Body Mass Index 24.9 Const General: comfortable; No acute distress Orientation/consciousness: patient oriented x3 Eyes General: appearance normal, both eyes and all related structures Visual Moss: normal visual moss by confrontation Neck Neck: Yes supple and Yes no JVD Resp Effort & Inspection: normal respiratory effort and respiratory effort not decreased Auscultation: rhonchi Cardio Palpation: no palpable S3 and no palpable S4 Heart sounds: no rubs GI Inspection: Yes normal to inspection Palpation (GI): Soft to palpation Percussion: Yes normal to percussion Auscultation: normal bowel sounds General: Yes no CVA tenderness Back/Spine/Pelvis Back: no CVA tenderness Skin General skin exam: no petechiae and no purpura Neuro General: patient oriented x3 and no focal motor deficits Extrem General: No clubbing and No edema Results Reviewed Nephrology Results: Hgb 10.3 g/dl (12.0-16.0) L 03/21/24 WBC 3.8 X10*3/uL (4.8-10.8) L 03/21/24 Plt Count 143 X10*3/uL (160-400) L 03/21/24 Sodium 145 mmol/L (135-145) 03/21/24 Potassium 3.5 mmol/L (3.3-5.1) 03/21/24 Chloride 113 mmol/L (96-108) H 03/21/24 Carbon Dioxide 23 mmol/L (22-29) 03/21/24 BUN 20 mg/dL (9-16) H 03/21/24 Creatinine 1.17 mg/dL (0.5-1.4) 03/21/24 Calcium 8.8 mg/dL (8.4-10.2) 03/21/24 Assessment & Plan Assessment & Plan (1) CKD (chronic kidney disease): Code(s): N18.9 - Chronic kidney disease, unspecified Category: Medical Plan: Chronic kidney disease in the setting of multiple myeloma. The could be some age-related loss of glomerular like. Mild increase in creatinine due to Bactrim vs others Encouraged to increase p.o. fluid intake We will recheck renal panel in 2 weeks (2) Anemia: Code(s): D64.9 - Anemia, unspecified Category: Medical Plan: Anemia setting of multiple myeloma next hemoglobin is reasonably stable She follows with a Dr. Veloz (3) Multiple myeloma: Code(s): C90.00 - Multiple myeloma not having achieved remission Category: Medical Qualifiers: Multiple myeloma remission status: unspecified Qualified Code(s): C90.00 - Multiple myeloma not having achieved remission Plan: She has been treated with Revlimid. She has follow-up appointment with Dr. Veloz (4) Hypertension: Code(s): I10 - Essential (primary) hypertension Category: Medical Plan History of hypertension She is off all meds Today the blood pressure has been rather low. Caregiver will monitor blood pressure at home. Orders: Orders Basic Metabolic Panel 2 Weeks Dean Byers MD N18.9 - Chronic kidney disease, unspecified Medications: Changed From lenalidomide (Revlimid) swallow whole with glass of water; do not open, crush, chew , break, or dissolve. [id number]. 15 mg PO DAILY 15 caps 0RF To lenalidomide (Revlimid) swallow whole with glass of water; do not open, crush, chew , break, or dissolve. [id number]. 15 days on 2 days off 15 mg PO DAILY Rosanne Veloz MD Coding Level of Care Code Est Pt Level 4 (36133) Diagnoses CKD (chronic kidney disease) N18.9 Anemia D64.9 Multiple myeloma C90.00 Multiple myeloma remission status: unspecified Hypertension I10
== END 2024-04-01 13:33 | disposition home or self-care (01) ==
PROVIDERS: PCP Internal Medicine; Visit Provider Internal Medicine Hypertension Specialist
DX: C90.00 Multiple myeloma not having achieved remission (principal); I12.9 Hypertensive chronic kidney disease with stage 1 through stage 4 chronic kidney disease, or unspecified chronic kidney disease; N18.9 Chronic kidney disease, unspecified; D63.1 Anemia in chronic kidney disease
CPT/HCPCS: 99214

== ENCOUNTER → 2024-04-01 13:16 | Outpatient (BNVA) | payer OTHER, SELFPAY | PROVIDERS: PCP Internal Medicine; Visit Provider Internal Medicine Hypertension Specialist | DX: I12.9 Hypertensive chronic kidney disease with stage 1 through stage 4 chronic kidney disease, or unspecified chronic kidney disease (principal); N18.9 Chronic kidney disease, unspecified; D63.1 Anemia in chronic kidney disease; C90.00 Multiple myeloma not having achieved remission | CPT/HCPCS: 99212 ==

== ENCOUNTER 2024-04-18 08:22 | Outpatient (REF) | payer OTHER, SELFPAY ==
[2024-04-18 12:30] LABS: MANUAL DIFF FLAG NO
[2024-04-18 12:34] LABS: Basophils Percent Auto 0.6 % (0-2); Eosinophils Absolute Auto 0.1 X10*3/uL (0.0-0.4); Eosinophils Percent Auto 2.1 % (0-4); Hematocrit 31.4 % (37.0-47.0); Hemoglobin 10.1 g/dl (12.0-16.0); Imm Gran Abs Auto 0.02 X10*3/uL (0.00-0.03); Imm Gran Pct Auto 0.4 % (0.0-0.4); Lymphocytes Percent Auto 19.4 % (20-40); Mean Corpuscular HGB Conc 32.2 g/dl (31.0-35.0); Mean Corpuscular Hemoglobin 30.4 pg (27.0-33.0); Mean Corpuscular Volume 94.6 fL (80.0-98.0); Mean Platelet Volume 10.5 fL (9.4-12.3); Monocytes Absolute Auto 0.3 X10*3/uL (0.1-1.2); Monocytes Percent Auto 4.8 % (2-11); Neutrophils Absolute Auto 3.8 x10*3/uL (2.0-8.3); Neutrophils Percent Auto 72.7 % (45-73); Platelet Count 174 X10*3/uL (160-400); Red Blood Count 3.32 X10*6/uL (4.20-5.50); Red Cell Distribution Width 14.3 % (11.0-16.0); White Blood Count 5.3 X10*3/uL (4.8-10.8)
[2024-04-18 12:57] LABS: Alanine Aminotransferase < 5 U/L (0-31); Albumin Level 3.2 g/dL (3.5-5.0); Alkaline Phosphatase 58 U/L (39-117); Anion Gap 10 (12-20); Aspartate Amino Transferase 12 U/L (5-31); Bilirubin Total 0.3 mg/dL (0.0-1.0); Blood Urea Nitrogen 12 mg/dL (9-16); Calcium 8.4 mg/dL (8.4-10.2); Carbon Dioxide 25 mmol/L (22-29); Chloride 111 mmol/L (96-108); Estimated Glomerular Filt Rate > 60; Glucose Random 97 mg/dL (60-115); Potassium 3.6 mmol/L (3.3-5.1); Sodium 142 mmol/L (135-145)
== END 2024-04-18 08:23 | disposition home or self-care (01) ==
LOC: HO.LHD 08:22
PROVIDERS: Visit Provider Internal Medicine Medical Oncology
DX: C90.00 Multiple myeloma not having achieved remission (principal); Z79.899 Other long term (current) drug therapy
CPT/HCPCS: 36415; 80053; 85025

== ENCOUNTER 2024-05-16 07:23 | Outpatient (REF) | payer OTHER, SELFPAY ==
[2024-05-16 09:43] LABS: MANUAL DIFF FLAG NO
[2024-05-16 09:47] LABS: Eosinophils Absolute Auto 0.2 X10*3/uL (0.0-0.4); Eosinophils Percent Auto 4.8 % (0-4); Hematocrit 30.7 % (37.0-47.0); Hemoglobin 9.9 g/dl (12.0-16.0); Imm Gran Abs Auto 0.02 X10*3/uL (0.00-0.03); Imm Gran Pct Auto 0.6 % (0.0-0.4); Lymphocytes Absolute Auto 1.2 X10*3/uL (1.2-4.9); Lymphocytes Percent Auto 37.6 % (20-40); Mean Corpuscular HGB Conc 32.2 g/dl (31.0-35.0); Mean Corpuscular Hemoglobin 30.3 pg (27.0-33.0); Mean Corpuscular Volume 93.9 fL (80.0-98.0); Mean Platelet Volume 10.8 fL (9.4-12.3); Monocytes Absolute Auto 0.5 X10*3/uL (0.1-1.2); Monocytes Percent Auto 16.2 % (2-11); Neutrophils Absolute Auto 1.3 x10*3/uL (2.0-8.3); Neutrophils Percent Auto 39.8 % (45-73); Platelet Count 132 X10*3/uL (160-400); Red Blood Count 3.27 X10*6/uL (4.20-5.50); Red Cell Distribution Width 14.1 % (11.0-16.0); White Blood Count 3.1 X10*3/uL (4.8-10.8)
[2024-05-16 10:03] LABS: Alanine Aminotransferase 8 U/L (0-31); Alkaline Phosphatase 59 U/L (39-117); Anion Gap 9 (12-20); Aspartate Amino Transferase 16 U/L (5-31); Bilirubin Total 0.3 mg/dL (0.0-1.0); Blood Urea Nitrogen 16 mg/dL (9-16); Calcium 8.4 mg/dL (8.4-10.2); Carbon Dioxide 24 mmol/L (22-29); Chloride 113 mmol/L (96-108); Estimated Glomerular Filt Rate > 60; Glucose Random 84 mg/dL (60-115); Potassium 3.7 mmol/L (3.3-5.1); Sodium 142 mmol/L (135-145); Total Protein 5.6 g/dL (6.5-8.0)
== END 2024-05-16 07:24 | disposition home or self-care (01) ==
LOC: HO.LHD 07:23
PROVIDERS: Visit Provider Internal Medicine Medical Oncology
DX: R76.9 Abnormal immunological finding in serum, unspecified (principal)
CPT/HCPCS: 36415; 80053; 85025

== ENCOUNTER 2024-06-06 08:39 | Outpatient (REF) | payer OTHER, SELFPAY ==
[2024-06-06 13:22] LABS: MANUAL DIFF FLAG NO
[2024-06-06 13:25] LABS: Basophils Percent Auto 0.9 % (0-2); Eosinophils Absolute Auto 0.1 X10*3/uL (0.0-0.4); Eosinophils Percent Auto 1.9 % (0-4); Hematocrit 34.2 % (37.0-47.0); Hemoglobin 11.2 g/dl (12.0-16.0); Imm Gran Abs Auto 0.01 X10*3/uL (0.00-0.03); Imm Gran Pct Auto 0.2 % (0.0-0.4); Lymphocytes Absolute Auto 0.8 X10*3/uL (1.2-4.9); Lymphocytes Percent Auto 19.3 % (20-40); Mean Corpuscular HGB Conc 32.7 g/dl (31.0-35.0); Mean Corpuscular Hemoglobin 30.5 pg (27.0-33.0); Mean Corpuscular Volume 93.2 fL (80.0-98.0); Mean Platelet Volume 10.7 fL (9.4-12.3); Monocytes Absolute Auto 0.4 X10*3/uL (0.1-1.2); Monocytes Percent Auto 8.7 % (2-11); Neutrophils Absolute Auto 2.9 x10*3/uL (2.0-8.3); Platelet Count 142 X10*3/uL (160-400); Red Blood Count 3.67 X10*6/uL (4.20-5.50); Red Cell Distribution Width 14.1 % (11.0-16.0); White Blood Count 4.2 X10*3/uL (4.8-10.8)
== END 2024-06-06 08:40 | disposition home or self-care (01) ==
LOC: HO.LHD 08:39
DX: F25.0 Schizoaffective disorder, bipolar type (principal)
CPT/HCPCS: 36415; 85025

== ENCOUNTER 2024-06-20 06:49 | Outpatient (REF) | payer OTHER, SELFPAY ==
[2024-06-20 12:43] LABS: MANUAL DIFF FLAG NO
[2024-06-20 12:46] LABS: Basophils Percent Auto 0.7 % (0-2); Eosinophils Absolute Auto 0.2 X10*3/uL (0.0-0.4); Eosinophils Percent Auto 3.5 % (0-4); Hematocrit 34.2 % (37.0-47.0); Hemoglobin 11.2 g/dl (12.0-16.0); Imm Gran Abs Auto 0.01 X10*3/uL (0.00-0.03); Imm Gran Pct Auto 0.2 % (0.0-0.4); Lymphocytes Absolute Auto 1.5 X10*3/uL (1.2-4.9); Lymphocytes Percent Auto 36.1 % (20-40); Mean Corpuscular HGB Conc 32.7 g/dl (31.0-35.0); Mean Corpuscular Hemoglobin 30.3 pg (27.0-33.0); Mean Corpuscular Volume 92.4 fL (80.0-98.0); Mean Platelet Volume 10.5 fL (9.4-12.3); Monocytes Absolute Auto 0.4 X10*3/uL (0.1-1.2); Monocytes Percent Auto 9.4 % (2-11); Neutrophils Absolute Auto 2.1 x10*3/uL (2.0-8.3); Neutrophils Percent Auto 50.1 % (45-73); Platelet Count 172 X10*3/uL (160-400); Red Cell Distribution Width 14.5 % (11.0-16.0); White Blood Count 4.2 X10*3/uL (4.8-10.8)
[2024-06-20 13:00] LABS: Alanine Aminotransferase 14 U/L (0-31); Albumin Level 3.5 g/dL (3.5-5.0); Alkaline Phosphatase 78 U/L (39-117); Anion Gap 11 (12-20); Aspartate Amino Transferase 22 U/L (5-31); Bilirubin Total 0.3 mg/dL (0.0-1.0); Blood Urea Nitrogen 23 mg/dL (9-16); Calcium 10.1 mg/dL (8.4-10.2); Carbon Dioxide 28 mmol/L (22-29); Chloride 108 mmol/L (96-108); Estimated Glomerular Filt Rate 50; Glucose Random 95 mg/dL (60-115); Potassium 3.7 mmol/L (3.3-5.1); Sodium 143 mmol/L (135-145); Total Protein 6.5 g/dL (6.5-8.0)
--- OUTSIDE RECORDS SUMMARY | 2024-06-25 04:38 | XMS_ITS | Data Portability ---
Author Organization [facility], [place] - [facility] Address [address] [place] [phone] Care Team Providers Care Operating Systems Specialist Name Role Phone RHONDA FRANCO Primary Care Provider Assessment Encounter Date Assessment Date Assessment LastModified by Organization Details LastModified Time 03/22/2023 03/22/2023 I provided real -time medical direction via phone for this encounter, and was available for additional phone based assistance as needed. I have reviewed and agree with the Assessment and Plan as documented by the Anesthesiologist Attending. Patient/granddau ghter given the opportunity to ask questions. Advised to follow-up with the PCP as soon as possible otherwise if develops CP/severe SOB/turning blue/uncontrolle d n/v/d or black/bloody emesis or stool/ severe AMS/ syncope/ hi fever to call 911- verbalized understanding of instructions [email or web address] Not available 03/22/2023 19:34:22 Plan of Treatment Reminders Order Date Submit Date Provider Last Modified By Organization Details Last Modified Time Details Appointments None recorded. Lab rapid SARS CoV 2 Ag, QL IA, respiratory specimen 2022 023 [email or web address], [phone], 3 16:48:01 rapid flu (A+B) 2022 023 [email or web address] 0 [facility], [address] [place] [address], [phone], 3 16:48:01 Referral None recorded. Procedures None recorded. Surgeries None recorded. Imaging None recorded. Medication Orders cefuroxime axetil 500 mg tablet 2022 023 [facility] #[id number], [address] [place], [place], [phone], 3 16:47:04 Tylenol Extra Strength 500 mg tablet 2022 023 [facility] #[id number], [address], [place], [id number], 3 16:47:04 albuterol sulfate HFA 90 mcg/actuati on aerosol inhaler 2022 023 [facility] #[id number], [address], [place], [id number], 3 16:47:04 albuterol sulfate 2.5 mg/3 mL (0.083 %) solution for nebulizatio n 2022 023 [email or web address] 0 [facility] #[id number], [address], [place], [phone], 3 16:48:00 Patient TargetsNo targets recorded. Patient InstructionsNo instructions recorded. Reason for Referral None Reported. Results Created Date Observation Date Name Description Value Unit Range Abnormal Flag Note LastModifiedBy Organization Detail LastModifiedTime 03/22/2003/22/2023 rapid flu (A+B) Flu negati ve Not Available [facility] [address] [place] [address], [phone], 03/22/2023 16:47:19 03/22/20 23 03/22/2023 rapid SARS CoV 2 Ag, QL IA, respi rator y speci men rapid SARS CoV 2 Ag, QL IA, respiratory specimen negati ve Not Available [facility] - [facility] [address] [place] [address], [id number], 03/22/2023 16:47:11 Result Notes None recorded. Medical Equipment None Reported. Allergies No known drug allergies Medications Name Sig Start Date Stop Date Status Note LastModified by Organization Details LastModified Time albuterol sulfate 2.5 mg/3 mL (0.083 %) solution for nebulization 3 ml x 1 now 2022 active Not Available Not Available Not Avai lable cetirizine 10 mg tablet TAKE 1 TABLET BY MOUTH EVERY NIGHT AT BEDTIME active Not Available Not Available No t Available clozapine 100 mg tablet TAKE 2 TABLETS BY MOUTH AT BEDTIME active Not Available Not Available No t Available sulfamethoxazol e 400 mg-trimethoprim 80 mg tablet TAKE 1 TABLET BY MOUTH EVERY 24 HOURS active Not Available Not Available No t Available acyclovir 400 mg tablet TAKE 1 TABLET BY MOUTH DAILY active Not Available Not Available No t Available allopurinol 100 mg tablet TAKE 1 TABLET BY MOUTH DAILY active Not Available Not Available No t Available sulfamethoxazol e 800 mg-trimethoprim 160 mg tablet TAKE 1 TABLET BY MOUTH 3 TIMES A WEEK active Not Available Not Available No t Available aspirin 81 mg tablet,delayed release active Not Available Not Available Not Available acetaminophen 500 mg tablet TAKE 1 TABLET BY MOUTH EVERY 6 HOURS NEEDED active Not Available Not Available No t Available calcium 600 mg (as calcium carbonate 1,500 mg) tablet TAKE 1 TABLET BY MOUTH THREE TIMES DAILY active Not Available Not Available No t Available magnesium oxide 400 mg (241.3 mg magnesium) tablet TAKE 2 TABLETS BY MOUTH 2 TIMES A DAY AFTER MEALS active Not Available Not Available No t Available omeprazole 20 mg capsule,delayed release TAKE 1 CAPSULE BY MOUTH DAILY AT 6.30 AM active Not Available Not Available No t Available cefuroxime axetil 500 mg tablet TAKE 1 TABLET BY MOUTH EVERY 12 HOURS FOR 7 DAYS active Not Available Not Available No t Available albuterol sulfate HFA 90 mcg/actuation aerosol inhaler INHALE 2 PUFFS BY MOUTH FOUR TIMES DAILY FOR 10 DAYS active Not Available Not Available No t Available azithromycin 500 mg tablet TAKE 1 TABLET BY MOUTH DAILY FOR 3 DAYS active Not Available Not Available No t Available Phos-NaK 280 mg-160 mg-250 mg oral powder packet USE 1 PACKET BY MOUTH 4 TIMES A DAY active Not Available Not Available No t Available Antacid Extra-Strength 300 mg (as calcium carb 750 mg) chewable tablet CHEW 1 TABLET BY MOUTH TWICE DAILY active Not Available Not Available No t Available metoprolol tartrate 25 mg tablet active Not Available Not Available Not Available calcium acetate(phospha te binders) 667 mg capsule active Not Available Not Available N ot Available lenalidomide 15 mg capsule TAKE 1 CAPSULE BY MOUTH DAILY FOR 21 DAYS THEN 7 DAYS OFF active Not Available Not Available No t Available ferrous sulfate 324 mg (65 mg iron) tablet,delayed release TAKE 1 TABLET DAILY active Not Available Not Available No t Available cholecalciferol (vitamin D3) 50 mcg (2,000 unit) capsule TAKE 1 CAPSULE BY MOUTH DAILY active Not Available Not Available No t Available potassium chloride ER 20 mEq tablet,extended release TAKE 1 TABLET BY MOUTH DAILY active Not Available Not Available No t Available Zarxio 300 mcg/0.5 mL injection syringe active Not Available Not Available Not Available Vitals Date Recorded Respiratory rate Body temperature Heart rate Systolic blood pressure Diastolic blood pressure Provider Name and Address Organization Details Last Updated DateTime 3 20 /min 97.7 [degF] 66 /min 123 mm[Hg] 64 mm[Hg] Not Available [facility] - production 3 16:29:51 Social History None recorded. Functional Status None recorded. Mental Status None recorded. Family History Nothing Reported. Medical History No medical history recorded. Gynecological HistoryNo gynecological history recorded. Obstetrics History GPAL:G 0 P 0 0 0 0 Past Encounters Encounter ID Performer Location Encounter Start Date Encounter Closed Date Diagnosis/Indication Diagnosis SNOMED-CT Code Diagnosis ICD10 Code [id number] Chasity Morgan MD [facility] [address] [place] [phone] 03/22/2023 16:29:49 03/22/2023 23:31:53 Acute bacterial bronchitis 947832500 J20.9 Health Concerns Section Related Observation LastModified by Organization Detai ls LastModified Time None Recorded Concern Status LastModified by Organization Details LastModified Time None Recorded Advance Directives Directive None Recorded Payers Encounter Date Sequence Insurance Name Policy Number Policy Garcia Covered Member ID Garcia Member ID Guarantor Name 03/22/2023 1 [facility] - DOS ON OR AFTER 2022 - DUAL ELIGIBLE - [employer] AND ONE [employer] (MEDICARE REPLACEMENT/ADV ANTAGE - HMO) Jeanne Younger [id number] Jeanne Younger Notes Date Note Type Note Provider Name and Address Organization Details Recorded Time 03/22/2023 text/html HPI: Cough and coughing up mucus since 03/15 she has multiple myeloma and weakened immune system?? ................... ................... ................... ................... ................... ................... ................... ........ [facility] Nursing Assessment: Chief Complaints: Cough PMH: Cancer, Hypertension, COPD/Asthma, Other Allergies: No Known Comments: + cough x1 week. Green sputum. Denies shortness of breath. Afebrile. + body aches and chills. Unknown sore throat. No known sick contacts. Taking Mucinex OTC. ................... ................... ................... ................... ................... ................... ................... ........ Anesthesiologist Attending Note From Phyllis Gee: Community Anesthesiologist Attending Papito Gee [facility] dispatched to [facility] for a 77 yof C/O a cough. Upon arrival, the pt was sitting up in bed, awake and alert, oriented to her baseline, in no apparent distress. The pt's granddaughter/caret willi stated that the pt started to cough 1 week prior, and had green/yellow tinted phlegm w/ a productive cough, weakness, and decreased appetite. She stated that the pt had some confusion, body pain, and diarrhea at baseline, and that all of these symptoms had not changed. She stated that the pt appeared improved at the time of [facility] visit; she stated improved skin color, energy level, and that her phlegm had been clear for the past few days. She denied any fever, dizziness, sore throat, CP, SOB, abd pain, N/V/, or urinary S/S. Lung sounds coarse in upper villalobos bilaterally, left lower lobe coarse but moving air, right lower lobe crackly. No pedal edema. [facility] consulted; pt was given 2.5 mg albuterol, a rx for abx, tylenol, and a MDI. Granddaughter was given instructions for MDI/medication use. After 2.5 mg albuterol, upper villalobos clear bilaterally, lower left lobe coarse, and a squeaking sound heard in lower right lobe on inspiration and expiration. Granddaughter was instructed to call the pt's PCP to inquire about a chest x-ray as well. Red flags discussed at length. ................... ................... ................... ................... ................... ................... ................... ........ Disposition: FulfilledSEGMD: As above: Pat now eating / drinking normally. Granddaughter concerned because patient has had pneumonia in the past that usually presented this way . She denies any headache, dizziness, sinus pressure or ear pain. No nausea vomiting. She has had mild intermittent diarrhea unchanged from her baseline without melena or hematochezia. Normal urine output without odor per grand daughter Chasity Morgan MD [address] [facility],[address], [place], [phone], [place] [email or web address] 03/22/2023 19:34:55 OBGyn Episode No OBEpisode recorded.
== END 2024-06-20 06:50 | disposition home or self-care (01) ==
LOC: HO.LHD 06:49
PROVIDERS: Visit Provider Internal Medicine Medical Oncology
DX: C90.00 Multiple myeloma not having achieved remission (principal)
CPT/HCPCS: 36415; 80053; 85025

== ENCOUNTER 2024-06-30 12:32 | Outpatient (AMB) | payer OTHER, SELFPAY ==
[2024-06-30 12:32] VITALS: BP 90/74; BMI 25.9
--- NOTE | 2024-06-30 12:32 | HO.NEPHOV_ITS ---
Vital Signs 06/30/24 12:32 Height 5 ft 1 in Weight 137 lb BMI 25.9 BP 90/74 Blood Pressure Location Lt brachial Position Sitting Intake Visit Reasons: Anemia/ Conf Swimming Pool Installer And Servicer Required: Yes Swimming Pool Installer And Servicer Services: Swimming Pool Installer And Servicer Offered & Declined Accompanied by: Grand Child Allergies No Known Allergies [No Known Allergies*] Allergy (Verified 05/23/24 14:28) HPI Comments Details: Elderly woman with multiple myeloma and an episode of ELEONORA. She was accompanied by her caregiver. According to caregiver patient has been feeling tired. She has been very picky with her food and does not take her supplements. Bactrim DS 3 x week has been added in October 2023 Accompanied by granddaughter. No new issues today [facility] Medical History Chemotherapy-induced fatigue Chemotherapy adverse reaction CKD (chronic kidney disease) Sepsis Tubular adenoma of colon Bilateral hearing loss Schizophrenia Asthma GERD (gastroesophageal reflux disease) Hyperlipidemia Hypertension Surgical History History of total hysterectomy History of lumpectomy Family History Father Coronary artery disease High cholesterol Diabetes mellitus CVD (cardiovascular disease) Mother Alzheimer's disease Brother History of CVA (cerebrovascular accident) Stroke Sister History of CVA (cerebrovascular accident) Stroke Son No problems noted. Sister No problems noted. Sister No problems noted. Sister No problems noted. Sister No problems noted. Sister No problems noted. Brother No problems noted. Brother No problems noted. Brother No problems noted. Brother No problems noted. Brother No problems noted. Brother No problems noted. Other Hypertension Social History Household Members: Caregiver Household Members Other:: granddaughter. Housing: Apartment Are you a primary hearing care practitioner to a significant other at home: No Do you presently have visiting nurse or other home services: No Alcohol intake: never Patient Tobacco Use Status: Former Tobacco user e-Cigarette/Vaping Use: Never Used Advance Directives Date on File: 04/15/18 service: No Current occupational status: retired Cognitive needs: No Hearing needs: No Vision needs: Yes Physical Exam Vital Signs: Last Vital Signs BP 90/74 06/30/24 12:32 BMI result Body Mass Index 25.9 Comfortable Neck supple no JVD. Lungs entry equal no rales. Heart S1-S2 heard no gallop or rub. Abdomen soft nontender. Neuro alert awake oriented. No asterixis. Extremities no edema. Results Reviewed Nephrology Results: Hgb 11.2 g/dl (12.0-16.0) L 06/20/24 WBC 4.2 X10*3/uL (4.8-10.8) L 06/20/24 Plt Count 172 X10*3/uL (160-400) 06/20/24 Sodium 143 mmol/L (135-145) 06/20/24 Potassium 3.7 mmol/L (3.3-5.1) 06/20/24 Chloride 108 mmol/L (96-108) 06/20/24 Carbon Dioxide 28 mmol/L (22-29) 06/20/24 BUN 23 mg/dL (9-16) H 06/20/24 Creatinine 1.06 mg/dL (0.5-1.4) 06/20/24 Calcium 10.1 mg/dL (8.4-10.2) 06/20/24 Assessment & Plan Assessment & Plan (1) CKD (chronic kidney disease): Code(s): N18.9 - Chronic kidney disease, unspecified Category: Medical Plan: Chronic kidney disease in the setting of multiple myeloma. The could be some age-related loss of glomerular like. Creatinine at baseline Hypokaelmia stands corrected Encouraged to increase p.o. fluid intake (2) Anemia: Code(s): D64.9 - Anemia, unspecified Category: Medical Plan: Anemia setting of multiple myeloma next hemoglobin is reasonably stable She follows with a Dr. Veloz (3) Multiple myeloma: Code(s): C90.00 - Multiple myeloma not having achieved remission Category: Medical Qualifiers: Multiple myeloma remission status: unspecified Qualified Code(s): C90.00 - Multiple myeloma not having achieved remission Plan: She has been treated with Revlimid. She has follow-up appointment with Dr. Veloz (4) Hypertension: Code(s): I10 - Essential (primary) hypertension Category: Medical Plan History of hypertension She is off all meds Today the blood pressure has been rather low. Remains asymptomatic Caregiver will monitor blood pressure at home. Orders: Orders Basic Metabolic Panel 4 Months N18.9 - Chronic kidney disease, unspecified Medications: Discontinued potassium chloride ER Discontinued Reason: Patient no longer taking 20 mEq PO DAILY 30 tabs 3RF Coding Level of Care Code Est Pt Level 4 (01404) Diagnoses CKD (chronic kidney disease) N18.9 Anemia D64.9 Multiple myeloma C90.00 Multiple myeloma remission status: unspecified Hypertension I10
--- OUTSIDE RECORDS SUMMARY | 2024-06-30 12:34 | XMS_ITS | Data Portability ---
Author Organization [email or web address] [facility] Address [address] [place] [id number] Care Team Providers Care Foreman/Project Manager Name Role Phone RHONDA FRANCO Primary Care Provider [phone] Assessment Encounter Date Assessment Date Assessment LastModified by Organization Details LastModified Time 03/22/2023 03/22/2023 I provided real -time medical direction via phone for this encounter, and was available for additional phone based assistance as needed. I have reviewed and agree with the Assessment and Plan as documented by the Owner Professional Engineer. Patient/granddau ghter given the opportunity to ask questions. Advised to follow-up with the PCP as soon as possible otherwise if develops CP/severe SOB/turning blue/uncontrolle d n/v/d or black/bloody emesis or stool/ severe AMS/ syncope/ hi fever to call 911- verbalized understanding of instructions [email or web address] Not available 03/22/2023 19:34:22 Plan of Treatment Reminders Order Date Submit Date Provider Last Modified By Organization Details Last Modified Time Details Appointments None recorded. Lab rapid SARS CoV 2 Ag, QL IA, respiratory specimen 2022 023 [email or web address], [phone], 3 16:48:01 rapid flu (A+B) 2022 023 [email or web address] 0 [facility], [address] [place] [address], [phone], 3 16:48:01 Referral None recorded. Procedures None recorded. Surgeries None recorded. Imaging None recorded. Medication Orders cefuroxime axetil 500 mg tablet 2022 023 [facility] #[id number], [address], [place], [phone], 3 16:47:04 Tylenol Extra Strength 500 mg tablet 2022 023 [facility] #[id number], [address], [place], [phone], 3 16:47:04 albuterol sulfate HFA 90 mcg/actuati on aerosol inhaler 2022 023 [facility] #[id number], [address], [place], [phone], 3 16:47:04 albuterol sulfate 2.5 mg/3 mL (0.083 %) solution for nebulizatio n 2022 023 [email or web address] 0 [facility] #[id number], [address], [place], [phone], 3 16:48:00 Patient TargetsNo targets recorded. Patient InstructionsNo instructions recorded. Reason for Referral None Reported. Results Created Date Observation Date Name Description Value Unit Range Abnormal Flag Note LastModifiedBy Organization Detail LastModifiedTime 03/22/2003/22/2023 rapid flu (A+B) Flu negati ve Not Available [facility] [address] [place] [address], [phone], 03/22/2023 16:47:19 03/22/20 23 03/22/2023 rapid SARS CoV 2 Ag, QL IA, respi rator y speci men rapid SARS CoV 2 Ag, QL IA, respiratory specimen negati ve Not Available [facility] [address] [place] [address], [phone], 03/22/2023 16:47:11 Result Notes None recorded. Medical [...] Diagnosis/Indication Diagnosis SNOMED-CT Code Diagnosis ICD10 Code [id number] Chasity Morgan MD [facility] [address] [place] [phone] 03/22/2023 16:29:49 03/22/2023 23:31:53 Acute bacterial bronchitis [id number] J20.9 Health Concerns Section Related Observation LastModified by Organization Detai ls LastModified Time None Recorded Concern Status LastModified by Organization Details LastModified Time None Recorded Advance Directives Directive None Recorded Payers Encounter Date Sequence Insurance Name Policy Number Policy Garcia Covered Member ID Garcia Member ID Guarantor Name 03/22/[address] [facility] - DOS ON OR AFTER 2022 - DUAL ELIGIBLE - NURSING HOME OPTIONS AND ONE CARE (MEDICARE REPLACEMENT/ADV ANTAGE - HMO) Jeanne Younger [id number] Jeanne Younger Notes Date Note Type Note [...] ................... ................... ................... ................... ................... ................... ........ Owner Professional Engineer Note From Phyllis Gee: Community Owner Professional Engineer Papito Gee [id number] dispatched to [facility] for a 77 yof C/O a cough. [...] per grand daughter Chasity Morgan MD [address] [facility],[address], [place], [address], [place] [employer] 03/22/2023 19:34:55 OBGyn Episode No OBEpisode recorded.
== END 2024-06-30 13:40 | disposition home or self-care (01) ==
LOC: HO.HKA 12:32
PROVIDERS: PCP Internal Medicine; Visit Provider Internal Medicine Hypertension Specialist
DX: I12.9 Hypertensive chronic kidney disease with stage 1 through stage 4 chronic kidney disease, or unspecified chronic kidney disease (principal); N18.9 Chronic kidney disease, unspecified; D63.1 Anemia in chronic kidney disease; C90.00 Multiple myeloma not having achieved remission
CPT/HCPCS: 99214

== ENCOUNTER → 2024-06-30 12:32 | Outpatient (BNVA) | payer OTHER, SELFPAY | PROVIDERS: PCP Internal Medicine; Visit Provider Internal Medicine Hypertension Specialist | DX: I12.9 Hypertensive chronic kidney disease with stage 1 through stage 4 chronic kidney disease, or unspecified chronic kidney disease (principal); N18.9 Chronic kidney disease, unspecified; D63.1 Anemia in chronic kidney disease; C90.00 Multiple myeloma not having achieved remission | CPT/HCPCS: 99212 ==

== ENCOUNTER 2024-07-18 08:14 | Outpatient (REF) | payer OTHER, SELFPAY ==
[2024-07-18 11:13] LABS: Basophils Absolute Auto 0.1 X10*3/uL (0.0-0.2); Basophils Percent Auto 2.2 % (0-2); Eosinophils Absolute Auto 0.2 X10*3/uL (0.0-0.4); Hematocrit 29.9 % (37.0-47.0); Hemoglobin 9.5 g/dl (12.0-16.0); Imm Gran Abs Auto 0.01 X10*3/uL (0.00-0.03); Imm Gran Pct Auto 0.3 % (0.0-0.4); Lymphocytes Absolute Auto 1.3 X10*3/uL (1.2-4.9); Lymphocytes Percent Auto 41.5 % (20-40); MANUAL DIFF FLAG NO; Mean Corpuscular HGB Conc 31.8 g/dl (31.0-35.0); Mean Corpuscular Hemoglobin 30.1 pg (27.0-33.0); Mean Corpuscular Volume 94.6 fL (80.0-98.0); Mean Platelet Volume 10.2 fL (9.4-12.3); Monocytes Absolute Auto 0.5 X10*3/uL (0.1-1.2); Monocytes Percent Auto 14.6 % (2-11); Neutrophils Absolute Auto 1.2 x10*3/uL (2.0-8.3); Neutrophils Percent Auto 36.4 % (45-73); Platelet Count 161 X10*3/uL (160-400); Red Blood Count 3.16 X10*6/uL (4.20-5.50); White Blood Count 3.2 X10*3/uL (4.8-10.8)
[2024-07-18 11:39] LABS: Alanine Aminotransferase < 6 U/L (0-31); Albumin Level 2.8 g/dL (3.5-5.0); Alkaline Phosphatase 57 U/L (39-117); Anion Gap 8 (12-20); Aspartate Amino Transferase 15 U/L (5-31); Bilirubin Total 0.3 mg/dL (0.0-1.0); Blood Urea Nitrogen 14 mg/dL (9-16); Calcium 7.4 mg/dL (8.4-10.2); Carbon Dioxide 24 mmol/L (22-29); Chloride 117 mmol/L (96-108); Estimated Glomerular Filt Rate > 60; Glucose Random 86 mg/dL (60-115); Potassium 3.6 mmol/L (3.3-5.1); Sodium 145 mmol/L (135-145); Total Protein 5.1 g/dL (6.5-8.0)
== END 2024-07-18 08:15 | disposition home or self-care (01) ==
LOC: HO.LHD 08:14
PROVIDERS: Visit Provider Internal Medicine Medical Oncology
DX: R76.9 Abnormal immunological finding in serum, unspecified (principal)
CPT/HCPCS: 36415; 80053; 85025

== ENCOUNTER 2024-08-05 14:51 | Inpatient (IN) | payer OTHER, SELFPAY ==
--- NOTE | 2024-08-05 | ECG_ITS ---
Test Reason : tachy Blood Pressure : */* mmHG Vent. Rate : 109 BPM Atrial Rate : 109 BPM P-R Int : 216 ms QRS Dur : 98 ms QT Int : 454 ms P-R-T Axes : 33 -33 22 degrees QTcB Int : 611 ms Poor data quality Sinus tachycardia with 1st degree A-V block Left axis deviation Incomplete right bundle branch block Possible Lateral infarct , age undetermined Abnormal ECG When compared with ECG of 29-Sep-2022 18:15, CA interval has increased T wave inversion less evident in Anterolateral leads QT has lengthened Referred By: Generic ED Physician Electronically Signed By: MAXI MICHEL MD
--- NOTE | ~2024-08-05 | XR_ITS ---
EXAMINATION: XR CHEST CLINICAL INFORMATION: Altered mental status, rule out pneumonia COMPARISON: None available. TECHNIQUE: Frontal view of the chest was obtained. FINDINGS: No significant abnormality is noted involving the heart, lungs, mediastinum, bony thorax or soft tissues. XR/XR chest 1V IMPRESSION: No active pulmonary disease. Electronically signed by: Derrell Marti MD 08/05/2024 03:58 PM [facility]
[2024-08-05 14:56] VITALS: BP 115/54; PULSE 122; PULSE 138; RESP 18; TEMP 36.6; O2SAT 100; O2SAT 98; BMI 27.1
[2024-08-05 15:16] VITALS: PULSE 110
--- NOTE | 2024-08-05 15:22 | ED.AMS ---
HPI - Altered Mental Status General Chief Complaint: Altered Mental Status Stated Complaint: WEAK,ALTERED,?UTI PER EMS Time Seen by Provider: 08/05/24 15:21 Source: family (Granddaughter, Radha who is the patient's caregiver) Mode of arrival: ambulatory Limitations: no limitations History of Present Illness ED Provider: Dr. Charles Servin HPI narrative: 79-year-old female with a history of COPD, dementia, chronic kidney disease, schizophrenia with paranoid ideation who was brought to emergency department by ambulance for evaluation of increased paranoid behavior and possible urinary tract infection. According to the granddaughter who is the caregiver, the patient has had increased paranoia and does not recognize her granddaughter. She is paranoid will not take any food or medications from her granddaughter but will take food and medication from her son. The granddaughter states that this has happened in the past where the patient was paranoid of the son and not the granddaughter. The patient was evaluated by [facility] paramedics on the scene and tested positive for possible UTI therefore was transported to the emergency department for evaluation. The granddaughter states the patient has been more paranoid in the past when she was had with urinary tract infection. The only medications the patient takes his Clozaril and she was not on any other medications for her schizophrenia. Related Data Home Medications ?Medication ?Instructions ?Recorded ?Confirmed albuterol sulfate 90 mcg/actuation 2 puff PO Q4H PRN Dyspnea 04/15/20 05/23/24 aerosol inhaler clozapine 100 mg tablet 200 mg PO BEDTIME 04/15/20 05/23/24 loperamide 2 mg capsule 2 mg PO DAILY PRN Diarrhea 04/15/20 05/23/24 (Anti-Diarrheal (loperamide)) sennosides 8.6 mg tablet (senna) 2 tab PO DAILY PRN Constipation 04/15/20 05/23/24 denosumab 120 mg/1.7 mL (70 mg/mL) 120 mg subcut Q8W 09/29/22 05/23/24 subcutaneous solution lorazepam 1 mg tablet (Ativan) 1 mg PO DAILY PRN Anxiety 09/29/22 05/23/24 lenalidomide 15 mg capsule 15 mg PO DAILY 06/30/24 (Revlimid) ondansetron 4 mg disintegrating 4 mg PO Q4H PRN Nausea And Vomiting 06/30/24 06/30/24 tablet Previous Rx's ?Medication ?Instructions ?Recorded filgrastim-sndz 300 mcg/0.5 mL 300 mcg (0.5 mL) subcut DAILY #25 12/05/22 injection syringe (Zarxio) mL sulfamethoxazole 800 1 tab PO 3XW #100 tabs 10/22/23 mg-trimethoprim 160 mg tablet (Bactrim DS) Lift recliner chair #1 ea 12/21/23 Manual Wheelchair #1 ea 12/21/23 food supplemt, lactose-reduced 0.1 See Rx Instructions PO .COMPLEX 12/24/23 gram-1.18 kcal/mL oral liquid #26,640 mL (Ensure Complete) allopurinol 100 mg tablet 100 mg PO DAILY #90 tabs 02/27/24 cetirizine 10 mg tablet 10 mg PO BEDTIME #90 tabs 02/27/24 ferrous sulfate 324 mg (65 mg 324 mg PO DAILY #90 tabs 05/18/24 iron) tablet,delayed release aspirin 81 mg tablet,delayed 81 mg PO DAILY #90 tabs 05/23/24 release acyclovir 400 mg tablet 400 mg PO DAILY #90 tabs 07/14/24 omeprazole 20 mg capsule,delayed 20 mg PO QAM #90 caps 07/23/24 release calcium carbonate (Calcium 600) 600 mg PO TID #90 tabs 07/27/24 cholecalciferol (vitamin D3) 50 2,000 mcg (40 x 50 mcg (2,000 07/27/24 mcg (2,000 unit) capsule unit)) PO DAILY #90 caps Allergies Allergy/AdvReac Type Severity Reaction Status Date / Time No Known Allergies Allergy Verified 08/05/24 15:00 [No Known Allergies*] Review of Systems Review of Systems: Yes all other systems are reviewed and are negative [facility] Past Medical History [facility] Narrative: Social history: She lives at home with her granddaughter and her granddaughter is her caregiver. The patient was not smoke cigarettes or drink alcohol Medical History (Updated 08/05/24 @ 20:30 by Charles Servin MD) Chemotherapy-induced fatigue Chemotherapy adverse reaction CKD (chronic kidney disease) Sepsis Tubular adenoma of colon Bilateral hearing loss Schizophrenia Asthma GERD (gastroesophageal reflux disease) Hyperlipidemia Hypertension Surgical History History of total hysterectomy History of lumpectomy Family History Family History Father Coronary artery disease High cholesterol Diabetes mellitus CVD (cardiovascular disease) Mother Alzheimer's disease Brother History of CVA (cerebrovascular accident) Stroke Sister History of CVA (cerebrovascular accident) Stroke Son No problems noted. Sister No problems noted. Sister No problems noted. Sister No problems noted. Sister No problems noted. Sister No problems noted. Brother No problems noted. Brother No problems noted. Brother No problems noted. Brother No problems noted. Brother No problems noted. Brother No problems noted. Other Hypertension Social History Social History Household Members: Caregiver Household Members Other:: granddaughter. Housing: Apartment Are you a primary child care provider to a significant other at home: No Do you presently have visiting nurse or other home services: No Alcohol intake: never Patient Tobacco Use Status: Former Tobacco user Smoked in Last 30 Days: No e-Cigarette/Vaping Use: Never Used Use of substances other than those prescribed or required for medical reasons: No Advance Directives: Yes Advance Directives on File: Yes Advance Directives Date on File: 12/15/20 service: No Current occupational status: retired Cognitive needs: No Hearing needs: No Vision needs: Yes Physical Exam ED Vital Signs: Vital Signs - 24 hr 08/05/24 14:56 08/05/24 15:16 08/05/24 17:36 Temperature 98 F 98.1 F Pulse Rate 122 H 110 H 88 Respiratory Rate 18 18 Blood Pressure 115/54 L 142/78 H Pulse Oximetry 100 98 Oxygen Delivery Method Room Air Room Air 08/05/24 19:11 Temperature 97.8 F Pulse Rate 95 Respiratory Rate 14 Blood Pressure 129/69 Pulse Oximetry 100 Oxygen Delivery Method Room Air BMI result Body Mass Index 27.1 Vital signs revealed an elevated heart rate of 122 otherwise unremarkable. Exam: General: Awake, alert in no distress oriented to person only, lacks insight as to why she was here, she was tremulous-granddaughter states that this is caused by anxiety Head: Normocephalic, atraumatic EENT: PERRL, Lids normal, sclera normal, conjunctiva normal, nose normal , ears normal, throat without erythema or exudates Neck: Supple, no adenopathy Lung: breath sounds symmetric, no wheezing, rales or rhonchi Chest: symmetric movement, nontender Heart: regular rate and rhythm, normal S1, S2 no murmurs or rubs Abdomen: soft, non-tender, nondistended, normal bowel sounds Back: no vertebral tenderness, no CVAT Extremities: no deformities, moves all extremities symmetrically Neuro: Awake, alert, oriented to person, normal speech, cranial nerves intact, moves all extremities symmetrically Psych: Pleasant, cooperative Medications Administered Discontinued Medications Generic Name Dose Route Start Last Admin Trade Name Freq PRN Reason Stop Dose Admin Benztropine Mesylate 1 mg 08/05/24 18:16 08/05/24 18:46 Benztropine Mesylate 1 Mg Tablet PO 08/05/24 18:17 Not Given ONCE ONE Clozapine 200 mg 08/05/24 18:15 08/05/24 18:46 Clozapine 100 Mg Tablet PO 08/05/24 18:16 Not Given ONCE ONE Haloperidol 2 mg 08/05/24 18:16 08/05/24 18:46 Haloperidol 1 Mg Tablet PO 08/05/24 18:17 Not Given ONCE ONE Medical Decision Making Medical Decision Making MDM Narrative: 79-year-old female with a history of COPD, dementia, chronic kidney disease, schizophrenia with paranoid ideation who was brought to emergency department by ambulance for evaluation of increased paranoid behavior and possible urinary tract infection. According to the granddaughter who is the caregiver, the patient has had increased paranoia and does not recognize her granddaughter, will not take medications or food from the granddaughter but will take medications and food from her son. Patient was had similar change in her behavior in the past. Patient was evaluated by paramedics on the scene who obtained a urine and they were concerned that the patient may have a urinary tract infection. Differential diagnosis: ?Includes but is not limited to decompensation of schizophrenia with increased paranoia, urinary tract infection, pneumonia, electrolyte abnormalities, anemia, influenza, RSV, COVID-19 Course: 18:17 My interpretation patient's laboratory evaluation as follows: WBC was normal 5300. Chronic normocytic anemia with an H&H of 11 and 35. Platelet count was low 134,000. Chloride elevated 112. LFTs were normal. COVID-19, influenza and RSV were negative. Urinalysis was positive for blood. Microscopic revealed no significant RBCs or WBCs and no bacteria. Patient was unlikely to have urinary tract infection as the cause of her increased paranoia. I did discuss these results with the patient's granddaughter. At this time I believe that the patient's paranoia secondary to her schizophrenia. I discuss low-dose Haldol and Cogentin with the granddaughter. Patient will be started on Haldol 2 mg and Cogentin 1 mg at night for 1 week to see if this improves her sleep and her paranoia. She was to continue taking your Clozaril 200 mg at night. The granddaughter was concerned that the patient will not take this medication from her tonight secondary to the patient's paranoia therefore she was given a dose of these medications here in the emergency department prior to being discharged. Patient was advised to contact the patient's prescribing provider to discuss the patient was change in a focus of her paranoia. 18:45 The ED nurse went to discharge the patient and the granddaughter he was the caregiver states that you she does not feel safe taking the patient home because she does not think that the patient will let the granddaughter care for her. Therefore I did order a care team consult to evaluate the patient was see of the patient would benefit from psychiatric evaluation/inpatient treatment. 20:27 Start physician observation Patient was evaluated by the care team who recommended that the patient be kept overnight for a psychiatric consult to determine if the patient needs medication adjustment or admission for further management of her paranoid ideation. Therefore, the patient will be placed in physician observation until a disposition can be determined. Admission/Observation Consideration of admission/observation: Escalation of care including admission/observation considered (Yes) Lab Data MDM Lab Attestation statement: I reviewed the patient's lab results. 08/05/24 15:52 08/05/24 15:52 Labs: Lab Results 08/05/24 08/05/24 Range/Units 15:52 16:02 WBC 5.3 (4.8-10.8) X10*3/uL RBC 3.79 L (4.20-5.50) X10*6/uL Hgb 11.3 L (12.0-16.0) g/dl Hct 35.5 L (37.0-47.0) % MCV 93.7 (80.0-98.0) fL MCH 29.8 (27.0-33.0) pg MCHC 31.8 (31.0-35.0) g/dl RDW 14.8 (11.0-16.0) % Plt Count 134 L (160-400) X10*3/uL MPV 9.8 (9.4-12.3) fL Immature Gran % (Auto) 0.4 (0.0-0.4) % Neut % (Auto) 75.8 H (45-73) % Lymph % (Auto) 13.1 L (20-40) % Nicholas % (Auto) 7.8 (2-11) % Eos % (Auto) 2.5 (0-4) % Baso % (Auto) 0.4 (0-2) % Lymph # (Auto) 0.7 L (1.2-4.9) X10*3/uL Nicholas # (Auto) 0.4 (0.1-1.2) X10*3/uL Eos # (Auto) 0.1 (0.0-0.4) X10*3/uL Baso # (Auto) 0.0 (0.0-0.2) X10*3/uL Abs Immat Gran (auto) 0.02 (0.00-0.03) X10*3/uL Absolute Neuts (auto) 4.0 (2.0-8.3) x10*3/uL Absolute Nucleated RBC 0.000 (0.0-0.012) X10*3/uL Nucleated RBC % (auto) 0.0 (0.0-0.2) /100WBC Sodium 143 (135-145) mmol/L Potassium 4.2 (3.3-5.1) mmol/L Chloride 112 H (96-108) mmol/L Carbon Dioxide 23 (22-29) mmol/L Anion Gap 12 (12-20) BUN 16 (9-16) mg/dL Creatinine 1.00 (0.5-1.4) mg/dL Estim Creat Clear Calc 39.0 Estimated GFR 54 Random Glucose 107 (60-115) mg/dL Calcium 9.1 D (8.4-10.2) mg/dL Total Bilirubin 0.2 (0.0-1.0) mg/dL AST 21 (5-31) U/L ALT 14 (0-31) U/L Alkaline Phosphatase 65 (39-117) U/L Total Protein 7.2 (6.5-8.0) g/dL Albumin 3.8 (3.5-5.0) g/dL Urine Color Yellow Urine Appearance Clear Urine pH 5.5 (5.0-9.0) Ur Specific Evans <= 1.005 (1.005-1.025) Urine Protein Negative (Neg-Trace) mg/dL Urine Glucose (UA) Negative (Negative) mg/dL Urine Ketones Negative (Negative) mg/dL Urine Blood Small (1+) H (Negative) Urine Nitrite Negative (Negative) Ur Leukocyte Esterase Negative (Negative) Urine RBC 0-2 (0-2) /HPF Urine WBC 0-5 (0-5) /HPF Ur Squamous Epith Cells 0-2 (0-2) /HPF Urine Bacteria None Seen (None Seen) Hyaline Casts 0-2 (0-2) /LPF Influenza Type A (PCR) NEGATIVE (Negative) Influenza Type B (PCR) NEGATIVE (Negative) RSV RNA Qual (PCR) NEGATIVE (Negative) SARS-CoV-2 RNA (RT-PCR) NEGATIVE (Negative) Independent Interpretation I performed an independent interpretation of an: EKG and Plain X-Ray Interpretation: My independent interpretation patient's 12 EKG done at 15:39 hours is as follows: Patient was tremulous and there is artifact in the baseline. Patient has a sinus tachycardia with a rate of 109 prolonged [place] interval of 216 milliseconds consistent with a first-degree AV block, normal QRS of 98 milliseconds prolonged QTC of 611 milliseconds, no ST segment elevation, no ST segment depression, no PACs, no PVCs Radiology Impression Discussion of test interpretation with radiology: I have reviewed the radiologist's reading. Radiologist Impression: XR CHEST FINDINGS: No significant abnormality is noted involving the heart, lungs, mediastinum, bony thorax or soft tissues. IMPRESSION: No active pulmonary disease. Electronically signed by: Derrell Marti MD 08/05/2024 03:58 PM EST Independent Historian Clinical information obtained from an independent historian. History obtained from or confirmed by: Other (Granddaughter) Prescription Management I considered prescription management with: Other (Antipsychotic: Haldol. Anti extra pyramidal: Cogentin) Chronic Conditions Patient?s care impacted by: Other (Depression, schizophrenia with paranoid ideation) Discharge Plan Discharge Clinical Impression: Paranoid ideation, Schizophrenia, Dementia, Insomnia Patient Disposition: Still a Patient Prescriptions: No Action (DME) Lift recliner chair See Rx Instructions .Route .MEDSUPPLY Qty: 1 0RF Rx Instructions: As directed (DME) Manual Wheelchair See Rx Instructions .Route .MEDSUPPLY Qty: 1 0RF Rx Instructions: As directed Ensure Complete 0.1 gram- 1.18 kcal/mL liquid See Rx Instructions PO .COMPLEX Qty: 01880 0RF Rx Instructions: Take 1 bottle of ensure 3 times a day allopurinol 100 mg tablet 100 mg PO DAILY Qty: 90 1RF cetirizine 10 mg tablet 10 mg PO BEDTIME Qty: 90 1RF ferrous sulfate 324 mg (65 mg iron) tablet,delayed release (DR/EC) 324 mg PO DAILY Qty: 90 1RF omeprazole 20 mg capsule,delayed release(DR/EC) 20 mg PO QAM Qty: 90 1RF albuterol sulfate 90 mcg/actuation HFA aerosol inhaler 2 puff PO Q4H PRN (Reason: Dyspnea) clozapine 100 mg tablet 200 mg PO BEDTIME loperamide [Anti-Diarrheal (loperamide)] 2 mg capsule 2 mg PO DAILY PRN (Reason: Diarrhea) sennosides [senna] 8.6 mg tablet 2 tab PO DAILY PRN (Reason: Constipation) Zarxio 300 mcg/0.5 mL Syringe 300 mcg SUBCUT DAILY Qty: 25 6RF Rx Instructions: Twice weekly. aspirin 81 mg tablet,delayed release (DR/EC) 81 mg PO DAILY Qty: 90 0RF acyclovir 400 mg Tablet 400 mg PO DAILY Qty: 90 4RF lorazepam [Ativan] 1 mg Tablet 1 mg PO DAILY PRN (Reason: Anxiety) denosumab 120 mg/1.7 mL (70 mg/mL) Solution 120 mg SUBCUT Q8W sulfamethoxazole-trimethoprim [Bactrim DS] 800-160 mg Tablet 1 tab PO 3XW Qty: 100 5RF cholecalciferol (vitamin D3) 50 mcg (2,000 unit) capsule 2,000 mcg PO DAILY Qty: 90 5RF calcium carbonate [Calcium 600] 600 mg calcium (1,500 mg) Tablet 600 mg PO TID Qty: 90 3RF lenalidomide [Revlimid] 15 mg capsule 15 mg PO DAILY Rx Instructions: swallow whole with glass of water; do not open, crush, chew , break, or dissolve. [id number]. 15 days on, 2 weeks off. ondansetron 4 mg tablet,disintegrating 4 mg PO Q4H PRN (Reason: Nausea And Vomiting) Print Language: Yi
[2024-08-05 16:03] LABS: MANUAL DIFF FLAG NO
--- NOTE | 2024-08-05 16:05 | PC.NURSE ---
Pt presented to ED via EMS from home, per caregiver (granddaughter) pt has been increasingly confused X3 days, not med compliant as usual. Pt has hx of dementia and confusion but is more confused than normal[facility] tested urine and it was ? for UTI. Alert and very confused, breathing even and unlabored, skin warm and dry. Noted to be tachy on montior, rectal temp 98. Family requesting PT/CM due to difficulty of taking care of pt at home
[2024-08-05 16:06] LABS: Basophils Percent Auto 0.4 % (0-2); Eosinophils Absolute Auto 0.1 X10*3/uL (0.0-0.4); Eosinophils Percent Auto 2.5 % (0-4); Hematocrit 35.5 % (37.0-47.0); Hemoglobin 11.3 g/dl (12.0-16.0); Imm Gran Abs Auto 0.02 X10*3/uL (0.00-0.03); Imm Gran Pct Auto 0.4 % (0.0-0.4); Lymphocytes Absolute Auto 0.7 X10*3/uL (1.2-4.9); Lymphocytes Percent Auto 13.1 % (20-40); Mean Corpuscular HGB Conc 31.8 g/dl (31.0-35.0); Mean Corpuscular Hemoglobin 29.8 pg (27.0-33.0); Mean Corpuscular Volume 93.7 fL (80.0-98.0); Mean Platelet Volume 9.8 fL (9.4-12.3); Monocytes Absolute Auto 0.4 X10*3/uL (0.1-1.2); Monocytes Percent Auto 7.8 % (2-11); Neutrophils Percent Auto 75.8 % (45-73); Platelet Count 134 X10*3/uL (160-400); Red Blood Count 3.79 X10*6/uL (4.20-5.50); Red Cell Distribution Width 14.8 % (11.0-16.0); White Blood Count 5.3 X10*3/uL (4.8-10.8)
[2024-08-05 16:19] LABS: Appearance Urine Clear; Color Urine Yellow; Glucose Urine UA Negative (Negative); Leukocyte Esterase Urine Negative (Negative); Nitrite Urine Negative (Negative); PH 5.5 (5.0-9.0); Specific Gravity - Urine <= 1.005 (1.005-1.025); UMIC TRIGGER UACC YES; Urine Blood Small (1+) (Negative); Urine Ketones Negative (Negative); Urine Protein Negative (Neg-Trace)
[2024-08-05 16:23] LABS: Alanine Aminotransferase 14 U/L (0-31); Albumin Level 3.8 g/dL (3.5-5.0); Alkaline Phosphatase 65 U/L (39-117); Anion Gap 12 (12-20); Aspartate Amino Transferase 21 U/L (5-31); Bilirubin Total 0.2 mg/dL (0.0-1.0); Blood Urea Nitrogen 16 mg/dL (9-16); Calcium 9.1 mg/dL (8.4-10.2); Carbon Dioxide 23 mmol/L (22-29); Chloride 112 mmol/L (96-108); Estimated Glomerular Filt Rate 54; Glucose Random 107 mg/dL (60-115); Potassium 4.2 mmol/L (3.3-5.1); Sodium 143 mmol/L (135-145); Total Protein 7.2 g/dL (6.5-8.0)
[2024-08-05 16:41] LABS: Influenza A PCR NEGATIVE (Negative); Influenza B PCR NEGATIVE (Negative); Resp Syncy Virus RNA Qual PCR NEGATIVE (Negative); SARS COV2 PCR INHOUSE NEGATIVE (Negative)
[2024-08-05 16:59] LABS: Bacteria Urine None Seen (None Seen); Hyaline Casts Urine 0-2 /LPF (0-2); RBC Urine 0-2 /HPF (0-2); Squamous Epithelial Cell Urine 0-2 /HPF (0-2); WBC Urine 0-5 /HPF (0-5)
[2024-08-05 17:36] VITALS: BP 142/78; PULSE 88; RESP 18; TEMP 36.7; O2SAT 98
--- OUTSIDE RECORDS SUMMARY | 2024-08-05 17:39 | XMS_ITS | Clinical Summary ---
Author Organization [facility] Address [address] [place] [address] Phone Care Team Providers Care Draughtsman Name Role Phone Rupert Orellana MD Primary Care Provider [phone] Allergies No known active allergies Medications Omeprazole 20 MG tablet delayed-release Take 1 capsule by mouth 1 (one) time each day Active acetaminophen (TYLENOL 8 HOUR) 650 MG 8 hr tablet Take 1 tablet by mouth Active allopurinol (ZYLOPRIM) 100 MG tablet Take 1 tablet by mouth 1 (one) time each day Active metoprolol tartrate 25 MG tablet Take 1 tablet by mouth in the morning and 1 tablet in the evening. Active cloZAPine (CLOZARIL) 100 MG tablet Take 100 mg by mouth in the morning and 100 mg in the evening. Active cetirizine (ZyrTEC) 10 MG chewable tablet Chew 10 mg 1 (one) time each day Active calcium carbonate (Calcium 600) 600 MG tablet Take 600 mg by mouth in the morning and 600 mg in the evening. Take with meals. Active ferrous sulfate 325 (65 Fe) MG tablet Take 325 mg by mouth 1 (one) time each day with breakfast Active sulfamethoxazol e-trimethoprim 800-160 MG per tablet Take 1 tablet by mouth in the morning and 1 tablet in the evening. Active lenalidomide (Revlimid) 15 MG capsule Take 15 mg by mouth 1 (one) time each day Take whole with water.??Do not break, chew, or open. Active acyclovir (ZOVIRAX) 400 MG tablet Take by mouth Active cholecalciferol (VITAMIN D-3) 50 MCG (2000 UT) capsule Take 2,000 Units by mouth 1 (one) time each day Active aspirin (ST KHUSHBU) 81 MG EC tablet Take 81 mg by mouth 1 (one) time each day Active denosumab (XGEVA) 120 MG/1.7ML injection Inject 120 mg under the skin Every 2 months Active albuterol HFA (PROVENTIL HFA;VENTOLIN HFA) 108 (90 Base) MCG/ACT inhaler Inhale 2 puffs every 6 (six) hours if needed for wheezing Active senna (SENOKOT) 8.6 MG tablet Take 1 tablet by mouth 1 (one) time each day Active loperamide (IMODIUM) 2 MG capsule Take 2 mg by mouth 4 (four) times a day if needed for diarrhea Active LORazepam (ATIVAN) 1 MG tablet Take 1 mg by mouth every 6 (six) hours if needed for anxiety Active ondansetron (ZOFRAN) 4 MG tablet Take 4 mg by mouth every 8 (eight) hours if needed for nausea or vomiting Active Active Problems Problem Noted Date Diagnosed Date Hypertensive renal disease 11/16/2022 Chronic anemia 11/16/2022 Acute nontraumatic kidney injury 07/08/2019 Anemia in chronic kidney disease 07/08/2019 Chronic kidney disease stage 1 07/08/2019 Essential hypertension 07/08/2019 Hyperlipidemia 07/08/2019 Immunizations Name Administration Dates Next Due Influenza Split High Dose Preservative Free IM 1 Influenza, Unspecified 04/24/2019 Family History Medical History Relation Comments Hypertension Father Dementia Mother Hypertension Mother Relation Status Comments Father Mother Social History Tobacco Use Types Packs/Day Years Used Date Smoking Tobacco: Former Comments:Smoking History Inf o:Unknown Alcohol Use Standard Drinks/Week Comments No 0 (1 standard drink = 0.6 oz pur e alcohol) Comments Unknown Sex and Gender Information Value Date Recorded Sex Assigned at Not on file Legal Sex Female 4:37 PM EST Gender Identity Not on file Sexual Orientation Not on file Last Filed Vital Signs Vital Sign Reading Time Taken Comments Blood Pressure 120/60 11/16/2022 3:50 PM EDT Pulse 83 11/16/2022 3:50 PM EDT Temperature - - Respiratory Rate - - Oxygen Saturation 99% 11/16/2022 3:50 PM EDT Inhaled Oxygen Concentration - - Weight 66.7 kg (147 lb) 11/16/2022 3:50 PM EDT Height 152.4 cm (5') 01/13/2019 12:00 PM EDT Body Mass Index 28.71 01/13/2019 12:00 PM EDT Plan of Treatment Health Maintenance Due Date Last Done Comments Pneumococcal Vaccine: 65+ Years (1 of 2 - PCV) 1951 Influenza Vaccine (#1) 2024 9, 05/12/2015 Hepatitis B Vaccine Aged Out No longe r eligible based on patient's age to complete this topic Insurance [facility] ANIKET LUCIO [id number] [facility] ([id number]) ANIKET LUCIO [id number] Care Teams Draughtsman Relationship Specialty Start Date End Date Rupert Orellana [facility] [address] PCP - General 05/20/19
--- OUTSIDE RECORDS SUMMARY | 2024-08-05 17:39 | XMS_ITS | Data Portability ---
Author Organization [facility] [place], [place] - [facility] Address [address] [place] [id number] Care Team Providers Care Assistant Center Director Name Role Phone RHONDA FRANCO Primary Care Provider HIM CCA OTHER Assessment Encounter Date Assessment Date Assessment LastModified by Organization Details LastModified Time 03/22/2023 03/22/2023 I provided real -time medical direction via phone for this encounter, and was available for additional phone based assistance as needed. I have reviewed and agree with the Assessment and Plan as documented by the Fuse Coiler. Patient/granddau ghter given the opportunity to ask questions. Advised to follow-up with the PCP as soon as possible otherwise if develops CP/severe SOB/turning blue/uncontrolle d n/v/d or black/bloody emesis or stool/ severe AMS/ syncope/ hi fever to call 911- verbalized understanding of instructions [email or web address] Not available 03/22/2023 19:34:22 Plan of Treatment Reminders Order Date Submit Date Provider Last Modified By Organization Details Last Modified Time Details Appointments Urgent Care 2024 02:04P Suzanne Borjas MD Not available Not available Not available Lab rapid SARS CoV 2 Ag, QL [place], respirato ry specimen 2022 023 [email or web address] [facility], [address] [place] [address], [phone], 03/22/2023 16:48:01 rapid flu (A+B) [address], [phone], 03/22/2023 16:48:01 Referral None recorded. Procedures None recorded. Surgeries None recorded. Imaging None recorded. Medication Orders cefuroxim e axetil 500 mg tablet 2022 023 [facility] #[id number], [address], [place], [id number], 03/22/2023 16:47:04 Tylenol Extra Strength 500 mg tablet 2022 023 [facility] #[id number], [address], [place], [id number], 03/22/2023 16:47:04 albuterol sulfate HFA 90 mcg/actua tion aerosol inhaler 2022 023 [facility] #[id number], [address], [place], [id number], 03/22/2023 16:47:04 albuterol sulfate 2.5 mg/3 mL (0.083 %) solution for nebulizat ion 2022 023 [email or web address] [facility] #[id number], [address], [place], [phone], 03/22/2023 16:48:00 Patient TargetsNo targets recorded. Patient InstructionsNo instructions recorded. Reason for Referral None Reported. Results Created Date Observation Date Name Description Value Unit Range Abnormal Flag Note LastModifiedBy Organization Detail LastModifiedTime 03/22/2003/22/2023 rapid flu (A+B) Flu negati ve Not Available Main - [facility] ed [address] [place] [address], [phone], 03/22/2023 16:47:19 03/22/2003/22/2023 rapid SARS CoV 2 Ag, QL IA, respi rator y speci men rapid SARS CoV 2 Ag, QL IA, respiratory specimen negati ve Not Available Main - [facility] [address] [place] [address], [phone], 03/22/2023 16:47:11 Result Notes None recorded. Medical [...] Not Available [facility] - production 3 16:29:51 Date Recorded Respiratory rate Body temperature Oxygen saturation Oxygen saturation in Arterial blood by Pulse oximetry Heart rate Systolic blood pressure Diastolic blood pressure Provider Name and Address Organization Details Last Updated DateTime 5 18 /min 98.2 [degF] 97 % 97 % 96 /min 148 mm[Hg] 82 mm[Hg] Not Available [facility] - production 5 14:04:34 Social History None recorded. Functional Status None recorded. Mental Status None recorded. Family History Nothing Reported. Medical History No medical history recorded. Gynecological HistoryNo gynecological history recorded. Obstetrics History GPAL:G 0 P 0 0 0 0 Past Encounters Encounter ID Performer Location Encounter Start Date Encounter Closed Date Diagnosis/Indication Diagnosis SNOMED-CT Code Diagnosis ICD10 Code Diagnosis Note [id number] Chasity Morgan MD Main - [facility] [address] [place] [phone] 03/22/2023 16:29:49 03/22/2023 23:31:53 Acute bacterial bronchitis 359450459 J20.9 possible pneumonia- Patient would benefit from cxr- note sent to [facility] to contact CP /team re same-grand daughter is able to go to the pharmacy today and get prescripti ons. She has had cefuroxime in the past for upper respirator y tract infection. She has used an inhaler before but does not currently have any.Advise d to rest, push p.o. fluids, may have Tylenol for pain or fever -as they had none in the home Rx sent.The medic went over savanah [place] with the sylvester andria-includ ing exactly how to use an MDI- and the patient The ximena andria states she will be able to assist the patient with same and will molded goods spot picker the prescripti ons this afternoon Health Concerns Section Related Observation LastModified by Organization Detai ls LastModified Time None Recorded Concern Status LastModified by Organization Details LastModified Time None Recorded Advance Directives Directive None Recorded Payers Encounter Date Sequence Insurance Name Policy Number Policy Garcia Covered Member ID Garcia Member ID Guarantor Name 03/22/2023 1 [facility] - DOS ON OR AFTER 2022 - DUAL ELIGIBLE - [facility] OPTIONS AND ONE CARE (MEDICARE REPLACEMENT/ADV ANTAGE - HMO) Jeanne Younger [id number] Jeanne Younger Notes Date Note Type Note [...] ................... ................... ................... ................... ................... ................... ........ Fuse Coiler Note From Phyllis Gee: Community Fuse Coiler Papito Gee CCA1 dispatched [facility] for a 77 yof C/O a cough. [...] right lower lobe crackly. No pedal edema. C consulted; pt was given 2.5 mg albuterol, [...] per grand daughter Chasity Morgan MD [address] [facility],[address], [place], [phone], SABIA 03/22/2023 19:34:55 OBGyn Episode No OBEpisode recorded.
--- NOTE | 2024-08-05 18:53 | PC.NURSE ---
physician held meds at this time, family requesting more care. Care team consult placed
[2024-08-05 19:11] VITALS: BP 129/69; PULSE 95; RESP 14; TEMP 36.6; O2SAT 100
--- NOTE | 2024-08-05 19:41 | PC.NURSE ---
assumed care of patient, patient resting comfortably with family at bedside. Educated family on plan of care and all questions answered at this time
[2024-08-05 21:16] VITALS: BP 119/82; PULSE 108; RESP 16; TEMP 36.7; O2SAT 100
--- NOTE | 2024-08-05 23:15 | PC.NURSE ---
patient resting quietly at this time. patient observer at bedside.
--- NOTE | 2024-08-06 01:10 | PC.NURSE ---
This RN was reviewing care team note and noted medications held by prior shift. Spoke with provider at this time d/t pt being calm no new medications at this time.
[2024-08-06 03:15] VITALS: BP 101/71; PULSE 96; RESP 16; TEMP 36.4; O2SAT 100
--- NOTE | 2024-08-06 03:49 | PC.NURSE ---
patient sleeping comfortably at this time Patient observer at bedside
[2024-08-06 05:34] VITALS: BP 112/75; PULSE 90; RESP 15; O2SAT 100
--- NOTE | 2024-08-06 05:41 | PC.NURSE ---
pt incont of large amount of urine, complete bed change and dar care provided. patient now resting comfortably
[2024-08-06 08:41] VITALS: BP 99/64; PULSE 97; RESP 20; TEMP 36.6; O2SAT 100
--- NOTE | 2024-08-06 09:59 | ECG_ITS ---
Test Reason : PSYCH Blood Pressure : */* mmHG Vent. Rate : 94 BPM Atrial Rate : 94 BPM P-R Int : 198 ms QRS Dur : 100 ms QT Int : 390 ms P-R-T Axes : 40 -38 36 degrees QTcB Int : 487 ms Normal sinus rhythm Left axis deviation Incomplete right bundle branch block Nonspecific T wave abnormality Prolonged QT Abnormal ECG When compared with ECG of 05-Aug-2024 15:39, QT has shortened Referred By: Ignacio Penny Electronically Signed By: MAXI MICHEL MD
--- NOTE | 2024-08-06 10:39 | PC.NURSE ---
pt in 4 and ambulates with walker, chelsie here with he and states she is normally safe walking with her walker, pt currently laying in bed. was to be started on haldol and cogentin last night but she did not get it. Dr Penny informed and he will wait for Dr emery to continue this when he arrives. Pt did not get her pm meds last night and Md and pharmacy aware and ordering meds for today.
[2024-08-06 13:00] LABS: Magnesium 1.8 mg/dL (1.6-2.6)
[2024-08-06 14:07] VITALS: BMI 26.8
[2024-08-06 14:09] LABS: Alanine Aminotransferase 14 U/L (0-31); Albumin Level 3.9 g/dL (3.5-5.0); Alkaline Phosphatase 74 U/L (39-117); Anion Gap 11 (12-20); Aspartate Amino Transferase 20 U/L (5-31); Bilirubin Total 0.4 mg/dL (0.0-1.0); Blood Urea Nitrogen 15 mg/dL (9-16); Calcium 9.4 mg/dL (8.4-10.2); Carbon Dioxide 24 mmol/L (22-29); Chloride 111 mmol/L (96-108); Creatinine Clr Calc Pharmacy 43.5; Estimated Glomerular Filt Rate > 60; Glucose Random 105 mg/dL (60-115); Magnesium 1.9 mg/dL (1.6-2.6); Potassium 3.6 mmol/L (3.3-5.1); Sodium 142 mmol/L (135-145); Total Protein 7.3 g/dL (6.5-8.0)
--- NOTE | 2024-08-06 15:24 | HO.PSYADMNOT ---
HPI Date of Service: 08/06/24 Chief Complaint: paranoia Sources of Information: patient interviewed, chart reviewed and crisis/core team assessment reviewed HPI Subjective Notes: Watts Warning and Section 12B Narrative: The patient is a 79-year-old descendant female, mostly [place]ar[place]-speaking, living with her family with a long history of schizophrenia who was brought to the emergency room by her granddaughter reported exacerbation of paranoia and noncompliance with her medications. According to the crisis assessment, the patient had been more disorganized in the last days, paranoid against her granddaughter who is the primary caregiver and accepting only medications given by her son. Also, according to the family, whenever she has a UTI, the patient gets more disorganized and psychotic. She was assessed by the crisis and transferring to this facility for psychiatric stabilization. On the intake interview, the patient was assessed at bedside. She was internally preoccupied, responding to internal stimuli. She was very paranoid and refused to engage in the conversation stating that she does not talk with any other doctors besides her outpatient doctor. She denies active suicidal ideation but she was internally preoccupied and with evident thought process disorder. The patient was a very poor historian. We will try to gather more collateral information since the patient can not provide any useful information. She was able to contract for safety. Past Psychiatric History: The patient carries a diagnosis of schizophrenia, she has previous psychiatric admissions and she had been on Clozaril 200 mg for several years. She follows outpatient services at [facility]. Medical Evaluation Reviewed: Yes FOR[facility]LY [facility] Medical History (Updated 08/05/24 @ 20:30 by Charles Servin MD) Chemotherapy-induced fatigue Chemotherapy adverse reaction CKD (chronic kidney disease) Sepsis Tubular adenoma of colon Bilateral hearing loss Schizophrenia Asthma GERD (gastroesophageal reflux disease) Hyperlipidemia Hypertension Surgical History History of total hysterectomy History of lumpectomy Family History: Denies Social History: The patient lives with her family, granddaughter and son. Substance History: Denies Trauma History: Refused to elaborate Diagnostics Vital Signs (24Hr): Vital Signs - 24 hr 08/05/24 17:36 08/05/24 19:11 08/05/24 21:16 Temperature 98.1 F 97.8 F 98.0 F Pulse Rate 88 95 108 H Respiratory Rate 18 14 16 Blood Pressure 142/78 H 129/69 119/82 Pulse Oximetry 98 100 100 Oxygen Delivery Method Room Air Room Air Room Air 08/06/24 03:15 08/06/24 05:34 08/06/24 08:41 Temperature 97.6 F 97.8 F Pulse Rate 96 90 97 Respiratory Rate 16 15 20 Blood Pressure 101/71 112/75 99/64 Pulse Oximetry 100 100 100 Oxygen Delivery Method Room Air Room Air Room Air BMI result Body Mass Index 26.8 Labs 08/05/24 15:52 08/06/24 13:46 Labs: Laboratory Results - last 48 hr 08/05/24 08/05/24 08/06/24 15:52 16:02 13:46 WBC 5.3 RBC 3.79 L Hgb 11.3 L Hct 35.5 L MCV 93.7 MCH 29.8 MCHC 31.8 RDW 14.8 Plt Count 134 L MPV 9.8 Immature Gran % (Auto) 0.4 Neut % (Auto) 75.8 H Lymph % (Auto) 13.1 L Yates % (Auto) 7.8 Eos % (Auto) 2.5 Baso % (Auto) 0.4 Lymph # (Auto) 0.7 L Yates # (Auto) 0.4 Eos # (Auto) 0.1 Baso # (Auto) 0.0 Abs Immat Gran (auto) 0.02 Absolute Neuts (auto) 4.0 Absolute Nucleated RBC 0.000 Nucleated RBC % (auto) 0.0 Sodium 143 142 Potassium 4.2 3.6 Chloride 112 H 111 H Carbon Dioxide 23 24 Anion Gap 12 11 L BUN 16 15 Creatinine 1.00 0.89 Estim Creat Clear Calc 39.0 43.5 Estimated GFR 54 > 60 Random Glucose 107 105 Calcium 9.1 D 9.4 Magnesium 1.8 1.9 Total Bilirubin 0.2 0.4 AST 21 20 ALT 14 14 Alkaline Phosphatase 65 74 Total Protein 7.2 7.3 Albumin 3.8 3.9 Urine Color Yellow Urine Appearance Clear Urine pH 5.5 Ur Specific [place] <= 1.005 Urine Protein Negative Urine Glucose (UA) Negative Urine Ketones Negative Urine Blood Small (1+) H Urine Nitrite Negative Ur Leukocyte Esterase Negative Urine RBC 0-2 Urine WBC 0-5 Ur Squamous Epith Cells 0-2 Urine Bacteria None Seen Hyaline Casts 0-2 Influenza Type A (PCR) NEGATIVE Influenza Type B (PCR) NEGATIVE RSV RNA Qual (PCR) NEGATIVE SARS-CoV-2 RNA (RT-PCR) NEGATIVE Imaging Radiology Impressions: ITS Impressions Chest X-Ray 08/05/24 15:34 IMPRESSION: No active pulmonary disease. Electronically signed by: Derrell Marti MD 08/05/2024 03:58 PM [facility] Meds/Allergies Meds Home Medications ?Medication ?Instructions ?Recorded ?Confirmed ?Type albuterol sulfate 90 mcg/actuation 2 puff PO Q4H PRN Dyspnea 04/15/20 08/05/24 History aerosol inhaler clozapine 100 mg tablet 200 mg PO BEDTIME 04/15/20 08/05/24 History loperamide 2 mg capsule 2 mg PO DAILY PRN Diarrhea 04/15/20 08/05/24 History (Anti-Diarrheal (loperamide)) sennosides 8.6 mg tablet (senna) 2 tab PO DAILY PRN Constipation 04/15/20 08/05/24 History denosumab 120 mg/1.7 mL (70 mg/mL) 120 mg subcut Q8W 09/29/22 08/05/24 History subcutaneous solution lorazepam 1 mg tablet (Ativan) 1 mg PO DAILY PRN Anxiety 09/29/22 08/05/24 History lenalidomide 15 mg capsule 15 mg PO DAILY 06/30/24 08/05/24 History (Revlimid) ondansetron 4 mg disintegrating 4 mg PO Q4H PRN Nausea And Vomiting 06/30/24 08/05/24 History tablet filgrastim-sndz 300 mcg/0.5 mL 300 mcg subcut 2XW 08/05/24 08/05/24 History injection syringe (Zarxio) Allergies Allergies Allergy/AdvReac Type Severity Reaction Status Date / Time No Known Allergies Allergy Verified 08/05/24 15:00 [No Known Allergies*] Mental Status Exam Mental Status Exam Patient Appearance: Unkempt Patient Orientation: Person Level of Consciousness: Awake and Restless Patient Behavior: Guarded and Passive Mood Description: Withdrawn Affect Description: Blunted Patient Cognition Impaired: Yes Ability to Follow Directions: Fair Speech Pattern: Impoverished Hallucinations: Auditory and Visual Delusions: Paranoid Ideation Thought Process: Illogical and Distracted Thought Content: positive for [place], positive for Loose Associations and positive for Thought Blocking Judgement: Poor Assessment & Plan Assessment & Plan (1) Schizophrenia: Status: Acute Code(s): F20.9 - Schizophrenia, unspecified (2) Dementia: Status: Acute Code(s): F03.90 - Unspecified dementia, unspecified severity, without behavioral disturbance, psychotic disturbance, mood disturbance, and anxiety Plan The patient is an elderly female with a past history of schizophrenia, dementia, multiple myeloma and other medical comorbidities who decompensate with psychotic symptoms in the last days. Historically the patient had worsening of her psychotic and cognitive symptoms whenever she has a UTI. She was assessed in the ER and so far her UA was normal. At the moment of the intake interview she was grossly psychotic unable to provide any information with auditory hallucinations, visual hallucinations and responding to internal stimuli, also very paranoid refused to engage in the conversation. We need to gather more collateral information. Plan 1. Gather collateral information. 2. The patient refused to sign a CV so we are sign needed 12 be. 3. Continue Clozaril 200 mg p.o. q.h.s.. 4. Regular blood work with clozapine level for tomorrow morning. 5. Reassessment with results. 6. 15 minute checks. Patient educated on: diagnosis Informed Consent: further education needed Reason for continued inpatient stay Substantial Risk for: inability to function, rapid decompensation and med/psych decompensation Statement Statement: I have reviewed the history and physical and performed a pertinent examination on my patient. No changes have occurred unless specified. If the History and Physical was not performed prior to admission, the Hospitalist's service will be consulted for completing the admission physical. Time Spent With Patient Time: Total time managing care of this patient today _20___ minutes.
--- NOTE | 2024-08-06 16:05 | PC.NURSE ---
Addendum entered by Rohini Fournier RN 08/06/24 18:26: Pt vomited another time, and had diarrhea x1 as well. Vs taken, all WNL except [id number]. Dr Zhang notified and zofran order entered. Original Note: Pt vomited x1. Dr Leonard notified via [employer].
[2024-08-06] MEDS: ZARXIO 300 MCG/0.5 ML 1 EACH SUBCUT (16:22)
--- NOTE | 2024-08-06 16:29 | PC.ADMIT ---
Pt arrived on the unit at 1319 via wheelchair, from [facility]. Pt is a Lebanese speaking female and she is here on a 12B which is up on 08/11/2024. She is a DNR/DNI. She was brought in by her son and granddaughter, with whom she lived. Granddaughter is DIRECTOR OF RESPIRATORY THERAPY and she became concerned about pt.'s additional confusion and resistance to taking medications, and thought she might have a UTI. UA was negative. Pt A&Ox1. Throughout the course of admission process, as well as afterwards, pt was seen self dialoguing many times. She was asking Prasanth what she should do, when this keno writer would ask a question. Pt declined to sign most of her paperwork. After admission process, pt was in her bed. She vomited x1 on the floor next to her bed. Pt utilizes a walker while at home, and was given one once on the unit. QT & QTC both elongated, approved medically. Pt on Clozaril. Declining some medications, and taking others. *Licensing Director utilized during admission assessment.
[2024-08-06 20:00] VITALS: BP 114/77; PULSE 122; RESP 16; TEMP 37.3; O2SAT 100
[2024-08-06] MEDS: Calcium Carbonate 750 MG TAB.CHEW PO (20:41)
[2024-08-06] MEDS: Loratadine 10 MG TABLET PO (20:41)
[2024-08-06] MEDS: hydrOXYzine HCL 25 MG TABLET PO (20:41)
[2024-08-07 09:28] VITALS: BP 101/62; PULSE 89; RESP 18; TEMP 36.7; O2SAT 100
[2024-08-07] MEDS: Ferrous Sulfate 324 MG TABLET.DR PO (09:30)
[2024-08-07] MEDS: Calcium Carbonate 750 MG TAB.CHEW PO ×3 (09:30→19:42)
[2024-08-07] MEDS: allopurinoL 100 MG TABLET PO (09:30)
[2024-08-07] MEDS: Aspirin Enteric Coated 81 MG TABLET.DR PO (09:31)
[2024-08-07] MEDS: Omeprazole 20 MG CAPSULE.DR PO (09:31)
--- NOTE | 2024-08-07 13:26 | HO.PSYCHPN ---
Subjective Subjective Date of Service: 08/07/24 Reason For Visit: paranoia Subjective Notes: Conditional Voluntary Interim History: The nursing staff reported the patient vomited 3 times and then later had diarrhea. She was seen self dialogue in internally preoccupied. Today in the morning her son came and visit her on interview the patient denies new symptoms looks internally preoccupied. The pharmacy reported that he had not been taking the Clozaril so we are going to start the titration of Clozaril. Mental Status Exam Mental Status Exam Patient Appearance: Unkempt Patient Orientation: Person Level of Consciousness: Awake Patient Behavior: Guarded Mood Description: Withdrawn Affect Description: Constricted Patient Cognition Impaired: Yes Ability to Follow Directions: Fair Speech Pattern: Impoverished Hallucinations: Auditory Delusions: Paranoid Ideation and Ideas of Reference Thought Process: Distracted and Slowed Thinking Thought Content: positive for [place] and positive for Poverty of Content Judgement: Fair Diagnostics Vital Signs (24Hr): Vital Signs - 24 hr 08/06/24 20:00 08/07/24 09:28 Temperature 99.1 F 98.1 F Pulse Rate 122 H 89 Respiratory Rate 16 18 Blood Pressure 114/77 101/62 Pulse Oximetry 100 100 Oxygen Delivery Method Room Air Room Air BMI result Body Mass Index 26.8 Labs 08/05/24 15:52 08/06/24 13:46 Labs: Laboratory Results - last 48 hr 08/05/24 08/05/24 08/06/24 15:52 16:02 13:46 WBC 5.3 RBC 3.79 L Hgb 11.3 L Hct 35.5 L MCV 93.7 MCH 29.8 MCHC 31.8 RDW 14.8 Plt Count 134 L MPV 9.8 Immature Gran % (Auto) 0.4 Neut % (Auto) 75.8 H Lymph % (Auto) 13.1 L [place] % (Auto) 7.8 Eos % (Auto) 2.5 Baso % (Auto) 0.4 Lymph # (Auto) 0.7 L [place] # (Auto) 0.4 Eos # (Auto) 0.1 Baso # (Auto) 0.0 Abs Immat Gran (auto) 0.02 Absolute Neuts (auto) 4.0 Absolute Nucleated RBC 0.000 Nucleated RBC % (auto) 0.0 Sodium 143 142 Potassium 4.2 3.6 Chloride 112 H 111 H Carbon Dioxide 23 24 Anion Gap 12 11 L BUN 16 15 Creatinine 1.00 0.89 Estim Creat Clear Calc 39.0 43.5 Estimated GFR 54 > 60 Random Glucose 107 105 Calcium 9.1 D 9.4 Magnesium 1.8 1.9 Total Bilirubin 0.2 0.4 AST 21 20 ALT 14 14 Alkaline Phosphatase 65 74 Total Protein 7.2 7.3 Albumin 3.8 3.9 Urine Color Yellow Urine Appearance Clear Urine pH 5.5 Ur Specific [place] <= 1.005 Urine Protein Negative Urine Glucose (UA) Negative Urine Ketones Negative Urine Blood Small (1+) H Urine Nitrite Negative Ur Leukocyte Esterase Negative Urine RBC 0-2 Urine WBC 0-5 Ur Squamous Epith Cells 0-2 Urine Bacteria None Seen Hyaline Casts 0-2 Influenza Type A (PCR) NEGATIVE Influenza Type B (PCR) NEGATIVE RSV RNA Qual (PCR) NEGATIVE SARS-CoV-2 RNA (RT-PCR) NEGATIVE Imaging Radiology Impressions: ITS Impressions Chest X-Ray 08/05/24 15:34 IMPRESSION: No active pulmonary disease. Electronically signed by: Derrell Marti MD 08/05/2024 03:58 PM [facility] Medications Medications Current Medications Acetaminophen (Acetaminophen 325 Mg Tablet) 650 mg PO Q6H PRN PRN Reason: Headache/Pain Mild Scale (1-3) Acyclovir (Acyclovir 200 Mg Capsule) 400 mg PO DAILY [facility] Al Hydroxide/Mg Hydroxide (Magnesium Hydrox/Alum Hydrox 30 Ml Oral.Susp) 30 ml PO Q6H PRN PRN Reason: Heartburn/Nausea Albuterol Sulfate (Albuterol Sulfate 90 Mcg 8 Gm Inhaler) 2 puff INHALE Q4H PRN PRN Reason: Dyspnea Allopurinol (Allopurinol 100 Mg Tablet) 100 mg PO DAILY [facility] Last Admin: 08/07/24 09:30 Dose: 100 mg Aspirin (Aspirin Enteric Coated 81 Mg Tablet.) 81 mg PO DAILY [facility] Last Admin: 08/07/24 09:31 Dose: 81 mg Calcium Carbonate (Calcium Carbonate 750 Mg Tab.Chew) 750 mg PO TID [facility] Last Admin: 08/07/24 09:30 Dose: 750 mg Clozapine (Clozapine 25 Mg Tablet) 25 mg PO BEDTIME [facility] Stop: 08/07/24 21:01 Ferrous Sulfate (Ferrous Sulfate 324 Mg Tablet.) 324 mg PO DAILY [facility] Last Admin: 08/07/24 09:30 Dose: 324 mg Hydroxyzine HCl (Hydroxyzine Hcl 25 Mg Tablet) 25 mg PO Q6H PRN PRN Reason: Anxiety Last Admin: 08/06/24 20:41 Dose: 25 mg Loperamide HCl (Loperamide Hcl 2 Mg Capsule) 2 mg PO DAILY PRN PRN Reason: Diarrhea Loratadine (Loratadine 10 Mg Tablet) 10 mg PO BEDTIME [facility] Last Admin: 08/06/24 20:41 Dose: 10 mg Lorazepam (Lorazepam 1 Mg Tablet) 1 mg PO DAILY PRN PRN Reason: Anxiety Magnesium Hydroxide (Milk Of Magnesia 30 Ml Oral.Susp) 30 ml PO DAILY PRN PRN Reason: Constipation Pt Own(Lenalidomide (15 Mg)) 15 mg PO DAILY [facility] Omeprazole (Omeprazole 20 Mg Capsule.Dr) 20 mg PO DAILY@0630 [facility] Last Admin: 08/07/24 09:31 Dose: 20 mg Ondansetron HCl (Ondansetron Odt 4 Mg Tab.Rapdis) 4 mg TRANSLINGU Q4H PRN PRN Reason: Nausea and Vomiting Senna (Sennosides 8.6 Mg Tablet) 17.2 mg PO DAILY PRN PRN Reason: Constipation Vitamin D (Cholecalciferol (Vitamin D3) 25 Mcg Tablet) 2,000 mcg PO DAILY [facility] Allergies Allergies Allergy/AdvReac Type Severity Reaction Status Date / Time No Known Allergies Allergy Verified 08/05/24 15:00 [No Known Allergies*] Assessment & Plan Assessment & Plan (1) Schizophrenia: Status: Acute Code(s): F20.9 - Schizophrenia, unspecified (2) Dementia: Status: Acute Code(s): F03.90 - Unspecified dementia, unspecified severity, without behavioral disturbance, psychotic disturbance, mood disturbance, and anxiety Plan The patient is an elderly female with a past history of schizophrenia, dementia, multiple myeloma and other medical comorbidities who decompensate with psychotic symptoms in the last days. Historically the patient had worsening of her psychotic and cognitive symptoms whenever she has a UTI. She was assessed in the ER and so far her UA was normal. At the moment of the intake interview she was grossly psychotic unable to provide any information with auditory hallucinations, visual hallucinations and responding to internal stimuli, also very paranoid refused to engage in the conversation. We need to gather more collateral information. Plan 1. Gather collateral information. 2. The patient refused to sign a CV so we are sign needed 12 be. 3. Start Clozaril 25 p.o. q.h.s. on August 07. 4. Regular blood work with clozapine level for tomorrow morning. 5. Reassessment with results. 6. 15 minute checks. Reason for continued inpatient stay Substantial Risk for: inability to function, rapid decompensation and med/psych decompensation Time Spent With Patient Time: Total time managing care of this patient today __20__ minutes.
[2024-08-07] MEDS: LENALIDOMIDE 15 MG 15 EACH PO (13:34)
--- NOTE | 2024-08-07 14:40 | PM.EVENT ---
Event Note Date of Service: 08/07/24 Event Note: Pt is a 79 year female admitted to [facility] with hospitalist consult for evaluation of pt with nausea, vomiting, and diarrhea. Pt seen and evaluated in her room where she is resting comfortably in bed. pt has no acute medical complaints. Reports she is feeling much better without N/V/D or abdominal pain. Abdominal exam benign without tenderness. Spoke to nursing who reports pt had episodes of vomiting and diarrhea last evening/night but nothing this morning. Pt has had no acute medical complaints this morning. Pt had bowel movement this morning with formed stool. If pt's diarrhea returns will test for GI panel and C-Diff. Otherwise supporting care. Thank you for allowing us to participate in the care of this patient. Signing off at this time. Please re-consult if any acute complaints or issues arise, and please reach out if pt's symptoms return. Time Spent With Patient Time: Total time managing care of this patient today ____ minutes.
--- NOTE | 2024-08-07 14:50 | PC.NURSE ---
Pharmacy called for 2 meds that were not in the Pyxis earlier today and they still have not been delivered.
--- NOTE | 2024-08-07 14:53 | PC.NURSE ---
Patient seen by Maikel MARCIAL, will coolect stool specimen if patient has loose stool. If stool is formed, no need to collect it.
[2024-08-07] MEDS: cloZAPine 25 MG TABLET PO (19:43)
[2024-08-07] MEDS: Loratadine 10 MG TABLET PO (19:43)
[2024-08-07 20:00] VITALS: BP 109/59; PULSE 87; RESP 17; TEMP 36; O2SAT 100
[2024-08-08] MEDS: Omeprazole 20 MG CAPSULE.DR PO (05:13)
[2024-08-08 08:11] VITALS: BP 124/70; PULSE 80; RESP 18; TEMP 36.5; O2SAT 100
--- NOTE | 2024-08-08 08:42 | P.PNPSI_ITS ---
Subjective Subjective Date of Service: 08/08/24 Reason For Visit: paranoia Subjective Notes: Conditional Voluntary Interim History: Pt slept through the night. She took clozaril last night- it is being retitrated as she had missed some doses. She denies abdominal pain, no loose stools, no vomiting. She denies hearing voices but talks to someone who is not there as she talks to this medical underwriter. She denies SI/HI. Medication Compliance: Yes Side effects from medications: No Attending Groups: No Review of Systems Review of Systems Yes all other systems are reviewed and are negative Mental Status Exam Mental Status Exam Patient Appearance: Unkempt Patient Orientation: Person Level of Consciousness: Awake Patient Behavior: Guarded Mood Description: Withdrawn Affect Description: Constricted Patient Cognition Impaired: Yes Ability to Follow Directions: Fair Speech Pattern: Impoverished Diagnostics Vital Signs (24Hr): Vital Signs - 24 hr 08/07/24 09:28 08/07/24 20:00 08/08/24 08:11 Temperature 98.1 F 96.8 F 97.7 F Pulse Rate 89 87 80 Respiratory Rate 18 17 18 Blood Pressure 101/62 109/59 L 124/70 Pulse Oximetry 100 100 100 Oxygen Delivery Method Room Air Room Air Room Air BMI result Body Mass Index 26.8 Labs 08/05/24 15:52 08/06/24 13:46 Labs: Laboratory Results - last 48 hr 08/05/24 08/06/24 15:52 13:46 Sodium 142 Potassium 3.6 Chloride 111 H Carbon Dioxide 24 Anion Gap 11 L BUN 15 Creatinine 0.89 Estim Creat Clear Calc 43.5 Estimated GFR > 60 Random Glucose 105 Calcium 9.4 Magnesium 1.8 1.9 Total Bilirubin 0.4 AST 20 ALT 14 Alkaline Phosphatase 74 Total Protein 7.3 Albumin 3.9 Imaging Radiology Impressions: ITS Impressions Chest X-Ray 08/05/24 15:34 IMPRESSION: No active pulmonary disease. Electronically signed by: Derrell Marti MD 08/05/2024 03:58 PM [facility] Medications Medications Current Medications Acetaminophen (Acetaminophen 325 Mg Tablet) 650 mg PO Q6H PRN PRN Reason: Headache/Pain Mild Scale (1-3) Acyclovir (Acyclovir 200 Mg Capsule) 400 mg PO DAILY [facility] Last Admin: 08/07/24 14:47 Dose: Not Given Al Hydroxide/Mg Hydroxide (Magnesium Hydrox/Alum Hydrox 30 Ml Oral.Susp) 30 ml PO Q6H PRN PRN Reason: Heartburn/Nausea Albuterol Sulfate (Albuterol Sulfate 90 Mcg 8 Gm Inhaler) 2 puff INHALE Q4H PRN PRN Reason: Dyspnea Allopurinol (Allopurinol 100 Mg Tablet) 100 mg PO DAILY [facility] Last Admin: 08/07/24 09:30 Dose: 100 mg Aspirin (Aspirin Enteric Coated 81 Mg Tablet.) 81 mg PO DAILY [facility] Last Admin: 08/07/24 09:31 Dose: 81 mg Calcium Carbonate (Calcium Carbonate 750 Mg Tab.Chew) 750 mg PO TID [facility] Last Admin: 08/07/24 19:42 Dose: 750 mg Ferrous Sulfate (Ferrous Sulfate 324 Mg Tablet.) 324 mg PO DAILY [facility] Last Admin: 08/07/24 09:30 Dose: 324 mg Hydroxyzine HCl (Hydroxyzine Hcl 25 Mg Tablet) 25 mg PO Q6H PRN PRN Reason: Anxiety Last Admin: 08/06/24 20:41 Dose: 25 mg Loperamide HCl (Loperamide Hcl 2 Mg Capsule) 2 mg PO DAILY PRN PRN Reason: Diarrhea Loratadine (Loratadine 10 Mg Tablet) 10 mg PO BEDTIME [facility] Last Admin: 08/07/24 19:43 Dose: 10 mg Lorazepam (Lorazepam 1 Mg Tablet) 1 mg PO DAILY PRN PRN Reason: Anxiety Magnesium Hydroxide (Milk Of Magnesia 30 Ml Oral.Susp) 30 ml PO DAILY PRN PRN Reason: Constipation Pt Own(Lenalidomide (15 Mg)) 15 mg PO DAILY [facility] Last Admin: 08/07/24 13:34 Dose: 15 mg Omeprazole (Omeprazole 20 Mg Capsule.) 20 mg PO DAILY@0630 [facility] Last Admin: 08/08/24 05:13 Dose: 20 mg Ondansetron HCl (Ondansetron Odt 4 Mg Tab.Rapdis) 4 mg TRANSLINGU Q4H PRN PRN Reason: Nausea and Vomiting Senna (Sennosides 8.6 Mg Tablet) 17.2 mg PO DAILY PRN PRN Reason: Constipation Vitamin D (Cholecalciferol (Vitamin D3) 25 Mcg Tablet) 2,000 mcg PO DAILY [facility] Last Admin: 08/07/24 14:47 Dose: Not Given Allergies Allergies Allergy/AdvReac Type Severity Reaction Status Date / Time No Known Allergies Allergy Verified 08/05/24 15:00 [No Known Allergies*] Assessment & Plan Assessment & Plan (1) Schizophrenia: Status: Acute Code(s): F20.9 - Schizophrenia, unspecified (2) Dementia: Status: Acute Code(s): F03.90 - Unspecified dementia, unspecified severity, without behavioral disturbance, psychotic disturbance, mood disturbance, and anxiety Plan The patient is an elderly female with a past history of schizophrenia, dementia, multiple myeloma and other medical comorbidities who decompensate with psychotic symptoms in the last days. Historically the patient had worsening of her psychotic and cognitive symptoms whenever she has a UTI. She was assessed in the ER and so far her UA was normal. At the moment of the intake interview she was grossly psychotic unable to provide any information with auditory hallucinations, visual hallucinations and responding to internal stimuli, also very paranoid refused to engage in the conversation. We need to gather more collateral information. Plan 08/08 continue titration of clozapine 100mg po qhs Reason for continued inpatient stay Substantial Risk for: inability to function Time Spent With Patient Time: Total time managing care of this patient today ____ minutes.
[2024-08-08] MEDS: Aspirin Enteric Coated 81 MG TABLET.DR PO (09:05)
[2024-08-08] MEDS: Calcium Carbonate 750 MG TAB.CHEW PO ×3 (09:05→21:16)
[2024-08-08] MEDS: LENALIDOMIDE 15 MG 15 EACH PO (09:05)
[2024-08-08] MEDS: Ferrous Sulfate 324 MG TABLET.DR PO (09:06)
[2024-08-08] MEDS: allopurinoL 100 MG TABLET PO (09:06)
[2024-08-08 11:17] LABS: Estimated Average Glucose 88 mg/dL; Hemoglobin A1C 79.8673 umol/L; Hemoglobin A1c % 4.7 % (<6.0); Total Hemoglobin (HGBA1C) 2841.6441 umol/L
[2024-08-08 11:49] LABS: Cholesterol 168 mg/dL (<200); HDL Cholesterol 52 mg/dL (>40); LDL Cholesterol Calculated 98 mg/dL (<100); Triglycerides 91 mg/dL (<150)
[2024-08-08 12:08] LABS: Thyroid Stimulating Hormone 2.79 uIU/mL (0.32-4.0)
[2024-08-08 12:21] LABS: Folate 11.2 ng/mL (> or = 4.0); Vitamin B12 308 pg/mL (200-900)
[2024-08-08] MEDS: Cholecalciferol (Vitamin D3) 25 MCG TABLET 50 MCG PO (13:39)
[2024-08-08] MEDS: Acyclovir 200 MG CAPSULE 400 MG PO (13:40)
[2024-08-08 20:00] VITALS: BP 100/62; PULSE 82; RESP 16; TEMP 36.8; O2SAT 99
[2024-08-08] MEDS: Loratadine 10 MG TABLET PO (21:16)
[2024-08-08] MEDS: hydrOXYzine HCL 25 MG TABLET PO (21:16)
[2024-08-08] MEDS: cloZAPine 25 MG TABLET 50 MG PO (21:16)
[2024-08-09] MEDS: Omeprazole 20 MG CAPSULE.DR PO (06:10)
[2024-08-09 08:00] VITALS: BP 122/69; PULSE 78; RESP 18; O2SAT 99
[2024-08-09] MEDS: Cholecalciferol (Vitamin D3) 25 MCG TABLET 50 MCG PO (08:50)
[2024-08-09] MEDS: Aspirin Enteric Coated 81 MG TABLET.DR PO (08:50)
[2024-08-09] MEDS: Ferrous Sulfate 324 MG TABLET.DR PO (08:50)
[2024-08-09] MEDS: Calcium Carbonate 750 MG TAB.CHEW PO ×3 (08:50→20:55)
[2024-08-09] MEDS: allopurinoL 100 MG TABLET PO (08:50)
[2024-08-09] MEDS: LENALIDOMIDE 15 MG 15 EACH PO (08:50)
--- NOTE | 2024-08-09 14:57 | P.PNPSI_ITS ---
Subjective Subjective Date of Service: 08/09/24 Reason For Visit: paranoia Interim History: Met with pt, reviewed with team who thought pt may have norovirus however today is without sx or fever. Awake, bright, alert, resting in bed, talkative, responsive and self dialogues. Denies current concerns. Denies need for an glass designer today, answering questions clearly. Denies medical/GI sx at this time. Medication Compliance: Yes Side effects from medications: No Review of Systems Acute medical concerns: No Review of Systems Review of Systems No current sx of norovirus per pt or team Mental Status Exam Mental Status Exam Patient Appearance: Disheveled Patient Orientation: Person Level of Consciousness: Awake and Alert Patient Behavior: Talkative and Good Eye Contact Mood Description: Apprehensive Affect Description: Constricted Patient Cognition Impaired: Yes Ability to Follow Directions: Fair Speech Pattern: Impoverished Diagnostics Vital Signs (24Hr): Vital Signs - 24 hr 08/08/24 20:00 08/09/24 08:00 Temperature 98.2 F Pulse Rate 82 78 Respiratory Rate 16 18 Blood Pressure 100/62 122/69 Pulse Oximetry 99 99 Oxygen Delivery Method Room Air Room Air BMI result Body Mass Index 26.8 Labs 08/05/24 15:52 08/06/24 13:46 Labs: Laboratory Results - last 48 hr 08/08/24 10:51 Estimat Average Glucose 88 Hemoglobin A1c % 4.7 Triglycerides 91 Cholesterol 168 LDL Cholesterol, Calc 98 HDL Cholesterol 52 Vitamin B12 308 Folate 11.2 TSH 2.79 Imaging Radiology Impressions: ITS Impressions Chest X-Ray 08/05/24 15:34 IMPRESSION: No active pulmonary disease. Electronically signed by: Derrell Marti MD 08/05/2024 03:58 PM EST Medications Medications Current Medications Acetaminophen (Acetaminophen 325 Mg Tablet) 650 mg PO Q6H PRN PRN Reason: Headache/Pain Mild Scale (1-3) Acyclovir (Acyclovir 200 Mg Capsule) 400 mg PO DAILY [facility] Last Admin: 08/09/24 08:52 Dose: Not Given Al Hydroxide/Mg Hydroxide (Magnesium Hydrox/Alum Hydrox 30 Ml Oral.Susp) 30 ml PO Q6H PRN PRN Reason: Heartburn/Nausea Albuterol Sulfate (Albuterol Sulfate 90 Mcg 8 Gm Inhaler) 2 puff INHALE Q4H PRN PRN Reason: Dyspnea Allopurinol (Allopurinol 100 Mg Tablet) 100 mg PO DAILY [facility] Last Admin: 08/09/24 08:50 Dose: 100 mg Aspirin (Aspirin Enteric Coated 81 Mg Tablet.) 81 mg PO DAILY [facility] Last Admin: 08/09/24 08:50 Dose: 81 mg Calcium Carbonate (Calcium Carbonate 750 Mg Tab.Chew) 750 mg PO TID [facility] Last Admin: 08/09/24 08:50 Dose: 750 mg Clozapine (Clozapine 100 Mg Tablet) 100 mg PO ONCE ONE Stop: 08/09/24 21:01 Clozapine (Clozapine 100 Mg Tablet) 200 mg PO BEDTIME [facility] Ferrous Sulfate (Ferrous Sulfate 324 Mg Tablet.) 324 mg PO DAILY [facility] Last Admin: 08/09/24 08:50 Dose: 324 mg Hydroxyzine HCl (Hydroxyzine Hcl 25 Mg Tablet) 25 mg PO Q6H PRN PRN Reason: Anxiety Last Admin: 08/08/24 21:16 Dose: 25 mg Loperamide HCl (Loperamide Hcl 2 Mg Capsule) 2 mg PO DAILY PRN PRN Reason: Diarrhea Loratadine (Loratadine 10 Mg Tablet) 10 mg PO BEDTIME [facility] Last Admin: 08/08/24 21:16 Dose: 10 mg Lorazepam (Lorazepam 1 Mg Tablet) 1 mg PO DAILY PRN PRN Reason: Anxiety Magnesium Hydroxide (Milk Of Magnesia 30 Ml Oral.Susp) 30 ml PO DAILY PRN PRN Reason: Constipation Pt Own(Lenalidomide (15 Mg)) 15 mg PO DAILY [facility] Last Admin: 08/09/24 08:50 Dose: 15 mg Omeprazole (Omeprazole 20 Mg Capsule.) 20 mg PO DAILY@0630 [facility] Last Admin: 08/09/24 06:10 Dose: 20 mg Ondansetron HCl (Ondansetron Odt 4 Mg Tab.Rapdis) 4 mg TRANSLINGU Q4H PRN PRN Reason: Nausea and Vomiting Senna (Sennosides 8.6 Mg Tablet) 17.2 mg PO DAILY PRN PRN Reason: Constipation Vitamin D (Cholecalciferol (Vitamin D3) 25 Mcg Tablet) 50 mcg PO DAILY [facility] Last Admin: 08/09/24 08:50 Dose: 50 mcg Allergies Allergies Allergy/AdvReac Type Severity Reaction Status Date / Time No Known Allergies Allergy Verified 08/05/24 15:00 [No Known Allergies*] Assessment & Plan Assessment & Plan (1) Schizophrenia: Status: Acute Code(s): F20.9 - Schizophrenia, unspecified (2) Dementia: Status: Acute Code(s): F03.90 - Unspecified dementia, unspecified severity, without behavioral disturbance, psychotic disturbance, mood disturbance, and anxiety Plan The patient is an elderly female with a past history of schizophrenia, dementia, multiple myeloma and other medical comorbidities who decompensate with psychotic symptoms in the last days. Historically the patient had worsening of her psychotic and cognitive symptoms whenever she has a UTI. She was assessed in the ER and so far her UA was normal. At the moment of the intake interview she was grossly psychotic unable to provide any information with auditory hallucinations, visual hallucinations and responding to internal stimuli, also very paranoid refused to engage in the conversation. We need to gather more collateral information. Plan 08/08 continue titration of clozapine 100mg po qhs 08/09 continue current plan of care Reason for continued inpatient stay Substantial Risk for: rapid decompensation Time Spent With Patient Time: Total time managing care of this patient today ____ minutes.
[2024-08-09 20:00] VITALS: BP 112/65; PULSE 81; RESP 18; TEMP 36.7; O2SAT 100
[2024-08-09] MEDS: Loratadine 10 MG TABLET PO (20:55)
[2024-08-09] MEDS: cloZAPine 100 MG TABLET PO (20:55)
[2024-08-09] MEDS: hydrOXYzine HCL 25 MG TABLET PO (20:55)
[2024-08-10] MEDS: Omeprazole 20 MG CAPSULE.DR PO (06:20)
[2024-08-10 08:00] VITALS: BP 107/57; PULSE 77; RESP 18; TEMP 36.5; O2SAT 100
--- NOTE | 2024-08-10 08:41 | HO.PSYCHPN ---
Subjective Subjective Date of Service: 08/10/24 Reason For Visit: paranoia Interim History: Met with pt, reviewed with the team. Pt removed from contact precautions. No GI sx. Reports she is feeling well. Denies pain. Team looking to move pt from isolation today Medication Compliance: Yes Side effects from medications: No Attending Groups: No Review of Systems Removed from precautions today Medical Review of Systems: unchanged Review of Systems Review of Systems Denies Mental Status Exam Mental Status Exam Patient Appearance: Disheveled Patient Orientation: Person Level of Consciousness: Awake and Alert Patient Behavior: Talkative and Good Eye Contact Mood Description: Apprehensive Affect Description: Constricted Patient Cognition Impaired: Yes Ability to Follow Directions: Fair Speech Pattern: Impoverished Diagnostics Vital Signs (24Hr): Vital Signs - 24 hr 08/09/24 20:00 Temperature 98.1 F Pulse Rate 81 Respiratory Rate 18 Blood Pressure 112/65 Pulse Oximetry 100 Oxygen Delivery Method Room Air BMI result Body Mass Index 26.8 Labs 08/05/24 15:52 08/06/24 13:46 Labs: Laboratory Results - last 48 hr 08/08/24 10:51 Estimat Average Glucose 88 Hemoglobin A1c % 4.7 Triglycerides 91 Cholesterol 168 LDL Cholesterol, Calc 98 HDL Cholesterol 52 Vitamin B12 308 Folate 11.2 TSH 2.79 Imaging Radiology Impressions: ITS Impressions Chest X-Ray 08/05/24 15:34 IMPRESSION: No active pulmonary disease. Electronically signed by: Derrell Marti MD 08/05/2024 03:58 PM [facility] Medications Medications Current Medications Acetaminophen (Acetaminophen 325 Mg Tablet) 650 mg PO Q6H PRN PRN Reason: Headache/Pain Mild Scale (1-3) Acyclovir (Acyclovir 200 Mg Capsule) 400 mg PO DAILY [facility] Last Admin: 08/09/24 08:52 Dose: Not Given Al Hydroxide/Mg Hydroxide (Magnesium Hydrox/Alum Hydrox 30 Ml Oral.Susp) 30 ml PO Q6H PRN PRN Reason: Heartburn/Nausea Albuterol Sulfate (Albuterol Sulfate 90 Mcg 8 Gm Inhaler) 2 puff INHALE Q4H PRN PRN Reason: Dyspnea Allopurinol (Allopurinol 100 Mg Tablet) 100 mg PO DAILY [facility] Last Admin: 08/09/24 08:50 Dose: 100 mg Aspirin (Aspirin Enteric Coated 81 Mg Tablet.Dr) 81 mg PO DAILY [facility] Last Admin: 08/09/24 08:50 Dose: 81 mg Calcium Carbonate (Calcium Carbonate 750 Mg Tab.Chew) 750 mg PO TID [facility] Last Admin: 08/09/24 20:55 Dose: 750 mg Clozapine (Clozapine 100 Mg Tablet) 200 mg PO BEDTIME [facility] Ferrous Sulfate (Ferrous Sulfate 324 Mg Tablet.) 324 mg PO DAILY [facility] Last Admin: 08/09/24 08:50 Dose: 324 mg Hydroxyzine HCl (Hydroxyzine Hcl 25 Mg Tablet) 25 mg PO Q6H PRN PRN Reason: Anxiety Last Admin: 08/09/24 20:55 Dose: 25 mg Loperamide HCl (Loperamide Hcl 2 Mg Capsule) 2 mg PO DAILY PRN PRN Reason: Diarrhea Loratadine (Loratadine 10 Mg Tablet) 10 mg PO BEDTIME [facility] Last Admin: 08/09/24 20:55 Dose: 10 mg Lorazepam (Lorazepam 1 Mg Tablet) 1 mg PO DAILY PRN PRN Reason: Anxiety Magnesium Hydroxide (Milk Of Magnesia 30 Ml Oral.Susp) 30 ml PO DAILY PRN PRN Reason: Constipation Pt Own(Lenalidomide (15 Mg)) 15 mg PO DAILY [facility] Last Admin: 08/09/24 08:50 Dose: 15 mg Omeprazole (Omeprazole 20 Mg Capsule.) 20 mg PO DAILY@0630 [facility] Last Admin: 08/10/24 06:20 Dose: 20 mg Ondansetron HCl (Ondansetron Odt 4 Mg Tab.Rapdis) 4 mg TRANSLINGU Q4H PRN PRN Reason: Nausea and Vomiting Senna (Sennosides 8.6 Mg Tablet) 17.2 mg PO DAILY PRN PRN Reason: Constipation Vitamin D (Cholecalciferol (Vitamin D3) 25 Mcg Tablet) 50 mcg PO DAILY [facility] Last Admin: 08/09/24 08:50 Dose: 50 mcg Allergies Allergies Allergy/AdvReac Type Severity Reaction Status Date / Time No Known Allergies Allergy Verified 08/05/24 15:00 [No Known Allergies*] Assessment & Plan Assessment & Plan (1) Schizophrenia: Status: Acute Code(s): F20.9 - Schizophrenia, unspecified (2) Dementia: Status: Acute Code(s): F03.90 - Unspecified dementia, unspecified severity, without behavioral disturbance, psychotic disturbance, mood disturbance, and anxiety Plan The patient is an elderly female with a past history of schizophrenia, dementia, multiple myeloma and other medical comorbidities who decompensate with psychotic symptoms in the last days. Historically the patient had worsening of her psychotic and cognitive symptoms whenever she has a UTI. She was assessed in the ER and so far her UA was normal. At the moment of the intake interview she was grossly psychotic unable to provide any information with auditory hallucinations, visual hallucinations and responding to internal stimuli, also very paranoid refused to engage in the conversation. We need to gather more collateral information. Plan 08/08 continue titration of clozapine 100mg po qhs 08/09 continue current plan of care 08/10 continue tx Reason for continued inpatient stay Substantial Risk for: rapid decompensation Time Spent With Patient Time: Total time managing care of this patient today ____ minutes.
[2024-08-10] MEDS: Ferrous Sulfate 324 MG TABLET.DR PO (08:51)
[2024-08-10] MEDS: Acyclovir 200 MG CAPSULE 400 MG PO (08:51)
[2024-08-10] MEDS: Cholecalciferol (Vitamin D3) 25 MCG TABLET 50 MCG PO (08:51)
[2024-08-10] MEDS: Calcium Carbonate 750 MG TAB.CHEW PO ×3 (08:51→21:43)
[2024-08-10] MEDS: Aspirin Enteric Coated 81 MG TABLET.DR PO (08:51)
[2024-08-10] MEDS: allopurinoL 100 MG TABLET PO (08:51)
[2024-08-10] MEDS: LENALIDOMIDE 15 MG 15 EACH PO (09:10)
[2024-08-10 20:00] VITALS: BP 109/65; PULSE 97; TEMP 36.6; O2SAT 99
[2024-08-10] MEDS: Loratadine 10 MG TABLET PO (21:43)
[2024-08-10] MEDS: cloZAPine 100 MG TABLET 200 MG PO (21:43)
[2024-08-11] MEDS: Omeprazole 20 MG CAPSULE.DR PO (06:11)
[2024-08-11 09:14] VITALS: BP 104/60; PULSE 88; RESP 18; TEMP 36.1; O2SAT 100
[2024-08-11] MEDS: Calcium Carbonate 750 MG TAB.CHEW PO ×3 (09:27→21:27)
[2024-08-11] MEDS: Acyclovir 200 MG CAPSULE 400 MG PO (09:27)
[2024-08-11] MEDS: Cholecalciferol (Vitamin D3) 25 MCG TABLET 50 MCG PO (09:27)
[2024-08-11] MEDS: allopurinoL 100 MG TABLET PO (09:28)
[2024-08-11] MEDS: Ferrous Sulfate 324 MG TABLET.DR PO (09:28)
[2024-08-11] MEDS: Aspirin Enteric Coated 81 MG TABLET.DR PO (09:28)
[2024-08-11] MEDS: LENALIDOMIDE 15 MG 15 EACH PO (09:29)
--- NOTE | 2024-08-11 10:11 | P.PNPSI_ITS ---
Subjective Subjective Date of Service: 08/11/24 Reason For Visit: paranoia Subjective Notes: Conditional Voluntary Interim History: The nursing staff reported the patient had been compliant with treatment. She had been calm and pleasant self dialogue in at times. Slept 8 hours. We did a healthcare proxy since the patient is unable to take informed decisions. On interview the patient is pleasantly confused easily redirectable. We are keeping on the same dose of Clozaril. Mental Status Exam Mental Status Exam Patient Appearance: Appropriate Patient Orientation: Person and Situation Level of Consciousness: Awake and Appropriate Patient Behavior: Guarded and Passive Mood Description: Withdrawn Affect Description: Constricted Patient Cognition Impaired: Yes Ability to Follow Directions: Good Speech Pattern: Clear Hallucinations: Auditory Delusions: Paranoid Ideation and Ideas of Reference Thought Process: Distracted and Slowed Thinking Thought Content: positive for [place] and positive for Poverty of Content Judgement: Poor Diagnostics Vital Signs (24Hr): Vital Signs - 24 hr 08/10/24 20:00 08/11/24 09:14 Temperature 97.8 F 96.9 F Pulse Rate 97 88 Respiratory Rate 18 Blood Pressure 109/65 104/60 Pulse Oximetry 99 100 Oxygen Delivery Method Room Air Room Air BMI result Body Mass Index 26.8 Labs 08/05/24 15:52 08/06/24 13:46 Imaging Radiology Impressions: ITS Impressions Chest X-Ray 08/05/24 15:34 IMPRESSION: No active pulmonary disease. Electronically signed by: Derrell Marti MD 08/05/2024 03:58 PM [facility] Medications Medications Current Medications Acetaminophen (Acetaminophen 325 Mg Tablet) 650 mg PO Q6H PRN PRN Reason: Headache/Pain Mild Scale (1-3) Acyclovir (Acyclovir 200 Mg Capsule) 400 mg PO DAILY [facility] Last Admin: 08/11/24 09:27 Dose: 400 mg Al Hydroxide/Mg Hydroxide (Magnesium Hydrox/Alum Hydrox 30 Ml Oral.Susp) 30 ml PO Q6H PRN PRN Reason: Heartburn/Nausea Albuterol Sulfate (Albuterol Sulfate 90 Mcg 8 Gm Inhaler) 2 puff INHALE Q4H PRN PRN Reason: Dyspnea Allopurinol (Allopurinol 100 Mg Tablet) 100 mg PO DAILY [facility] Last Admin: 08/11/24 09:28 Dose: 100 mg Aspirin (Aspirin Enteric Coated 81 Mg Tablet.Dr) 81 mg PO DAILY [facility] Last Admin: 08/11/24 09:28 Dose: 81 mg Calcium Carbonate (Calcium Carbonate 750 Mg Tab.Chew) 750 mg PO TID [facility] Last Admin: 08/11/24 09:27 Dose: 750 mg Clozapine (Clozapine 100 Mg Tablet) 200 mg PO BEDTIME [facility] Last Admin: 08/10/24 21:43 Dose: 200 mg Ferrous Sulfate (Ferrous Sulfate 324 Mg Tablet.) 324 mg PO DAILY [facility] Last Admin: 08/11/24 09:28 Dose: 324 mg Hydroxyzine HCl (Hydroxyzine Hcl 25 Mg Tablet) 25 mg PO Q6H PRN PRN Reason: Anxiety Last Admin: 08/09/24 20:55 Dose: 25 mg Loperamide HCl (Loperamide Hcl 2 Mg Capsule) 2 mg PO DAILY PRN PRN Reason: Diarrhea Loratadine (Loratadine 10 Mg Tablet) 10 mg PO BEDTIME [facility] Last Admin: 08/10/24 21:43 Dose: 10 mg Lorazepam (Lorazepam 1 Mg Tablet) 1 mg PO DAILY PRN PRN Reason: Anxiety Magnesium Hydroxide (Milk Of Magnesia 30 Ml Oral.Susp) 30 ml PO DAILY PRN PRN Reason: Constipation Pt Own(Lenalidomide (15 Mg)) 15 mg PO DAILY [facility] Last Admin: 08/11/24 09:29 Dose: 15 mg Omeprazole (Omeprazole 20 Mg Capsule.) 20 mg PO DAILY@0630 [facility] Last Admin: 08/11/24 06:11 Dose: 20 mg Ondansetron HCl (Ondansetron Odt 4 Mg Tab.Rapdis) 4 mg TRANSLINGU Q4H PRN PRN Reason: Nausea and Vomiting Senna (Sennosides 8.6 Mg Tablet) 17.2 mg PO DAILY PRN PRN Reason: Constipation Vitamin D (Cholecalciferol (Vitamin D3) 25 Mcg Tablet) 50 mcg PO DAILY [facility] Last Admin: 08/11/24 09:27 Dose: 50 mcg Allergies Allergies Allergy/AdvReac Type Severity Reaction Status Date / Time No Known Allergies Allergy Verified 08/05/24 15:00 [No Known Allergies*] Assessment & Plan Assessment & Plan (1) Schizophrenia: Status: Acute Code(s): F20.9 - Schizophrenia, unspecified (2) Dementia: Status: Acute Code(s): F03.90 - Unspecified dementia, unspecified severity, without behavioral disturbance, psychotic disturbance, mood disturbance, and anxiety Plan The patient is an elderly female with a past history of schizophrenia, dementia, multiple myeloma and other medical comorbidities who decompensate with psychotic symptoms in the last days. Historically the patient had worsening of her psychotic and cognitive symptoms whenever she has a UTI. She was assessed in the ER and so far her UA was normal. At the moment of the intake interview she was grossly psychotic unable to provide any information with auditory hallucinations, visual hallucinations and responding to internal stimuli, also very paranoid refused to engage in the conversation. We need to gather more collateral information. Plan 1. Gather more collateral information. 2. Clozapine 200 mg p.o. q.h.s. 3. Continue with the rest of the same medications. Reason for continued inpatient stay Substantial Risk for: inability to function, rapid decompensation and med/psych decompensation Time Spent With Patient Time: Total time managing care of this patient today __20__ minutes.
[2024-08-11 20:00] VITALS: BP 123/76; PULSE 95; RESP 16; TEMP 36.2; O2SAT 97
[2024-08-11] MEDS: Loratadine 10 MG TABLET PO (21:27)
[2024-08-11] MEDS: cloZAPine 100 MG TABLET 200 MG PO (21:27)
[2024-08-11] MEDS: hydrOXYzine HCL 25 MG TABLET PO (21:27)
[2024-08-12] MEDS: Omeprazole 20 MG CAPSULE.DR PO (06:15)
[2024-08-12 08:15] VITALS: BP 122/74; PULSE 95; RESP 16; TEMP 36.8; O2SAT 97
[2024-08-12] MEDS: allopurinoL 100 MG TABLET PO (09:35)
[2024-08-12] MEDS: LENALIDOMIDE 15 MG 15 EACH PO (09:35)
[2024-08-12] MEDS: Cholecalciferol (Vitamin D3) 25 MCG TABLET 50 MCG PO (09:35)
[2024-08-12] MEDS: Ferrous Sulfate 324 MG TABLET.DR PO (09:35)
[2024-08-12] MEDS: Calcium Carbonate 750 MG TAB.CHEW PO ×3 (09:35→20:56)
[2024-08-12] MEDS: Acyclovir 200 MG CAPSULE 400 MG PO (09:35)
[2024-08-12] MEDS: Aspirin Enteric Coated 81 MG TABLET.DR PO (09:36)
[2024-08-12 09:41] LABS: Neut%MD 57.1 %; WBCANC 3.6 X10*3/uL
--- NOTE | 2024-08-12 11:30 | HO.PSYCHPN ---
Subjective Subjective Date of Service: 08/12/24 Reason For Visit: paranoia Subjective Notes: Conditional Voluntary Healthcare Proxy: Yes Interim History: The nursing staff reported the patient has been quiet withdrawn self dialogue in the evening. She slept 8 hours. Her CV was signed by her healthcare proxy. On interview the patient denies new symptoms but she looks internally preoccupied. We are going to do a family meeting soon Mental Status Exam Mental Status Exam Patient Appearance: Disheveled and Unkempt Patient Orientation: Person Level of Consciousness: Awake Patient Behavior: Guarded Mood Description: Withdrawn Affect Description: Blunted Patient Cognition Impaired: Yes Ability to Follow Directions: Good Speech Pattern: Clear Hallucinations: Auditory Delusions: Paranoid Ideation and Ideas of Reference Thought Process: Distracted and Slowed Thinking Thought Content: positive for [place] and positive for Poverty of Content Judgement: Poor Diagnostics Vital Signs (24Hr): Vital Signs - 24 hr 08/11/24 20:00 08/12/24 08:15 Temperature 97.1 F 98.2 F Pulse Rate 95 95 Respiratory Rate 16 16 Blood Pressure 123/76 122/74 Pulse Oximetry 97 97 Oxygen Delivery Method Room Air Room Air BMI result Body Mass Index 26.8 Labs 08/05/24 15:52 08/06/24 13:46 Labs: Laboratory Results - last 48 hr 08/12/24 08/12/24 08:31 08:55 Absolute Neuts (auto) 2.0 Hold Purple Top SEE NOTE Imaging Radiology Impressions: ITS Impressions Chest X-Ray 08/05/24 15:34 IMPRESSION: No active pulmonary disease. Electronically signed by: Derrell Marti MD 08/05/2024 03:58 PM [facility] Medications Medications Current Medications Acetaminophen (Acetaminophen 325 Mg Tablet) 650 mg PO Q6H PRN PRN Reason: Headache/Pain Mild Scale (1-3) Acyclovir (Acyclovir 200 Mg Capsule) 400 mg PO DAILY [facility] Last Admin: 08/12/24 09:35 Dose: 400 mg Al Hydroxide/Mg Hydroxide (Magnesium Hydrox/Alum Hydrox 30 Ml Oral.Susp) 30 ml PO Q6H PRN PRN Reason: Heartburn/Nausea Albuterol Sulfate (Albuterol Sulfate 90 Mcg 8 Gm Inhaler) 2 puff INHALE Q4H PRN PRN Reason: Dyspnea Allopurinol (Allopurinol 100 Mg Tablet) 100 mg PO DAILY [facility] Last Admin: 08/12/24 09:35 Dose: 100 mg Aspirin (Aspirin Enteric Coated 81 Mg Tablet.) 81 mg PO DAILY [facility] Last Admin: 08/12/24 09:36 Dose: 81 mg Calcium Carbonate (Calcium Carbonate 750 Mg Tab.Chew) 750 mg PO TID [facility] Last Admin: 08/12/24 09:35 Dose: 750 mg Clozapine (Clozapine 100 Mg Tablet) 200 mg PO BEDTIME [facility] Last Admin: 08/11/24 21:27 Dose: 200 mg Ferrous Sulfate (Ferrous Sulfate 324 Mg Tablet.) 324 mg PO DAILY [facility] Last Admin: 08/12/24 09:35 Dose: 324 mg Hydroxyzine HCl (Hydroxyzine Hcl 25 Mg Tablet) 25 mg PO Q6H PRN PRN Reason: Anxiety Last Admin: 08/11/24 21:27 Dose: 25 mg Loperamide HCl (Loperamide Hcl 2 Mg Capsule) 2 mg PO DAILY PRN PRN Reason: Diarrhea Loratadine (Loratadine 10 Mg Tablet) 10 mg PO BEDTIME [facility] Last Admin: 08/11/24 21:27 Dose: 10 mg Lorazepam (Lorazepam 1 Mg Tablet) 1 mg PO DAILY PRN PRN Reason: Anxiety Magnesium Hydroxide (Milk Of Magnesia 30 Ml Oral.Susp) 30 ml PO DAILY PRN PRN Reason: Constipation Pt Own(Lenalidomide (15 Mg)) 15 mg PO DAILY [facility] Last Admin: 08/12/24 09:35 Dose: 15 mg Omeprazole (Omeprazole 20 Mg Capsule.) 20 mg PO DAILY@0630 [facility] Last Admin: 08/12/24 06:15 Dose: 20 mg Ondansetron HCl (Ondansetron Odt 4 Mg Tab.Rapdis) 4 mg TRANSLINGU Q4H PRN PRN Reason: Nausea and Vomiting Senna (Sennosides 8.6 Mg Tablet) 17.2 mg PO DAILY PRN PRN Reason: Constipation Vitamin D (Cholecalciferol (Vitamin D3) 25 Mcg Tablet) 50 mcg PO DAILY [facility] Last Admin: 08/12/24 09:35 Dose: 50 mcg Allergies Allergies Allergy/AdvReac Type Severity Reaction Status Date / Time No Known Allergies Allergy Verified 08/05/24 15:00 [No Known Allergies*] Assessment & Plan Assessment & Plan (1) Schizophrenia: Status: Acute Code(s): F20.9 - Schizophrenia, unspecified (2) Dementia: Status: Acute Code(s): F03.90 - Unspecified dementia, unspecified severity, without behavioral disturbance, psychotic disturbance, mood disturbance, and anxiety Plan The patient is an elderly female with a past history of schizophrenia, dementia, multiple myeloma and other medical comorbidities who decompensate with psychotic symptoms in the last days. Historically the patient had worsening of her psychotic and cognitive symptoms whenever she has a UTI. She was assessed in the ER and so far her UA was normal. At the moment of the intake interview she was grossly psychotic unable to provide any information with auditory hallucinations, visual hallucinations and responding to internal stimuli, also very paranoid refused to engage in the conversation. We need to gather more collateral information. Plan 1. Gather more collateral information. 2. Clozapine 200 mg p.o. q.h.s. 3. Continue with the rest of the same medications. 4. We will have a family meeting to discuss treatment options. Reason for continued inpatient stay Substantial Risk for: inability to function, rapid decompensation and med/psych decompensation Time Spent With Patient Time: Total time managing care of this patient today __20__ minutes.
[2024-08-12 20:00] VITALS: BP 102/59; PULSE 85; RESP 16; TEMP 36.4; O2SAT 99
[2024-08-12] MEDS: Loratadine 10 MG TABLET PO (20:56)
[2024-08-12] MEDS: cloZAPine 100 MG TABLET 200 MG PO (20:56)
[2024-08-13] MEDS: Omeprazole 20 MG CAPSULE.DR PO (06:42)
[2024-08-13 07:53] VITALS: BP 113/67; PULSE 102; RESP 18; TEMP 36.7; O2SAT 100
[2024-08-13] MEDS: LENALIDOMIDE 15 MG 15 EACH PO (08:42)
[2024-08-13] MEDS: Acyclovir 200 MG CAPSULE 400 MG PO (08:43)
[2024-08-13] MEDS: Calcium Carbonate 750 MG TAB.CHEW PO ×3 (08:43→21:02)
[2024-08-13] MEDS: Aspirin Enteric Coated 81 MG TABLET.DR PO (08:43)
[2024-08-13] MEDS: allopurinoL 100 MG TABLET PO (08:43)
[2024-08-13] MEDS: hydrOXYzine HCL 25 MG TABLET PO (08:43)
[2024-08-13] MEDS: Cholecalciferol (Vitamin D3) 25 MCG TABLET 50 MCG PO (08:43)
[2024-08-13] MEDS: Ferrous Sulfate 324 MG TABLET.DR PO (08:43)
--- NOTE | 2024-08-13 15:33 | P.PNPSI_ITS ---
Subjective Subjective Date of Service: 08/13/24 Reason For Visit: paranoia Subjective Notes: Conditional Voluntary Interim History: The nursing staff reported the patient being out for meals she remains flat slept well last night. The rn social services reported that we are going to have a meeting with her granddaughter and son. We had a family meeting and explained that we need to increase her clozapine since she had been chronically psychotic. It was clear that the patient was very paranoid against the granddaughter so we agreed to increase Clozaril up to 250 mg p.o. q.h.s. Mental Status Exam Mental Status Exam Patient Appearance: Appropriate Patient Orientation: Person and Situation Level of Consciousness: Awake and Appropriate Patient Behavior: Guarded and Passive Mood Description: Calm Affect Description: Blunted Patient Cognition Impaired: Yes Ability to Follow Directions: Good Speech Pattern: Clear Hallucinations: Auditory Delusions: Paranoid Ideation and Ideas of Reference Thought Process: Distracted and Slowed Thinking Thought Content: positive for [place] and positive for Poverty of Content Judgement: Fair Diagnostics Vital Signs (24Hr): Vital Signs - 24 hr 08/12/24 20:00 08/13/24 07:53 Temperature 97.6 F 98.0 F Pulse Rate 85 102 H Respiratory Rate 16 18 Blood Pressure 102/59 L 113/67 Pulse Oximetry 99 100 Oxygen Delivery Method Room Air BMI result Body Mass Index 26.8 Labs 08/05/24 15:52 08/06/24 13:46 Labs: Laboratory Results - last 48 hr 08/12/24 08/12/24 08:31 08:55 Absolute Neuts (auto) 2.0 Hold Purple Top SEE NOTE Imaging Radiology Impressions: ITS Impressions Chest X-Ray 08/05/24 15:34 IMPRESSION: No active pulmonary disease. Electronically signed by: Derrell Marti MD 08/05/2024 03:58 PM [facility] Medications Medications Current Medications Acetaminophen (Acetaminophen 325 Mg Tablet) 650 mg PO Q6H PRN PRN Reason: Headache/Pain Mild Scale (1-3) Acyclovir (Acyclovir 200 Mg Capsule) 400 mg PO DAILY [facility] Last Admin: 08/13/24 08:43 Dose: 400 mg Al Hydroxide/Mg Hydroxide (Magnesium Hydrox/Alum Hydrox 30 Ml Oral.Susp) 30 ml PO Q6H PRN PRN Reason: Heartburn/Nausea Albuterol Sulfate (Albuterol Sulfate 90 Mcg 8 Gm Inhaler) 2 puff INHALE Q4H PRN PRN Reason: Dyspnea Allopurinol (Allopurinol 100 Mg Tablet) 100 mg PO DAILY [facility] Last Admin: 08/13/24 08:43 Dose: 100 mg Aspirin (Aspirin Enteric Coated 81 Mg Tablet.) 81 mg PO DAILY [facility] Last Admin: 08/13/24 08:43 Dose: 81 mg Calcium Carbonate (Calcium Carbonate 750 Mg Tab.Chew) 750 mg PO TID [facility] Last Admin: 08/13/24 14:45 Dose: 750 mg Clozapine (Clozapine 100 Mg Tablet) 200 mg PO BEDTIME [facility] Last Admin: 08/12/24 20:56 Dose: 200 mg Ferrous Sulfate (Ferrous Sulfate 324 Mg Tablet.) 324 mg PO DAILY [facility] Last Admin: 08/13/24 08:43 Dose: 324 mg Hydroxyzine HCl (Hydroxyzine Hcl 25 Mg Tablet) 25 mg PO Q6H PRN PRN Reason: Anxiety Last Admin: 08/13/24 08:43 Dose: 25 mg Loperamide HCl (Loperamide Hcl 2 Mg Capsule) 2 mg PO DAILY PRN PRN Reason: Diarrhea Loratadine (Loratadine 10 Mg Tablet) 10 mg PO BEDTIME [facility] Last Admin: 08/12/24 20:56 Dose: 10 mg Lorazepam (Lorazepam 1 Mg Tablet) 1 mg PO DAILY PRN PRN Reason: Anxiety Magnesium Hydroxide (Milk Of Magnesia 30 Ml Oral.Susp) 30 ml PO DAILY PRN PRN Reason: Constipation Pt Own(Lenalidomide (15 Mg)) 15 mg PO DAILY [facility] Last Admin: 08/13/24 08:42 Dose: 15 mg Omeprazole (Omeprazole 20 Mg Capsule.) 20 mg PO DAILY@0630 [facility] Last Admin: 08/13/24 06:42 Dose: 20 mg Ondansetron HCl (Ondansetron Odt 4 Mg Tab.Rapdis) 4 mg TRANSLINGU Q4H PRN PRN Reason: Nausea and Vomiting Senna (Sennosides 8.6 Mg Tablet) 17.2 mg PO DAILY PRN PRN Reason: Constipation Vitamin D (Cholecalciferol (Vitamin D3) 25 Mcg Tablet) 50 mcg PO DAILY [facility] Last Admin: 08/13/24 08:43 Dose: 50 mcg Allergies Allergies Allergy/AdvReac Type Severity Reaction Status Date / Time No Known Allergies Allergy Verified 08/05/24 15:00 [No Known Allergies*] Assessment & Plan Assessment & Plan (1) Schizophrenia: Status: Acute Code(s): F20.9 - Schizophrenia, unspecified (2) Dementia: Status: Acute Code(s): F03.90 - Unspecified dementia, unspecified severity, without behavioral disturbance, psychotic disturbance, mood disturbance, and anxiety Plan The patient is an elderly female with a past history of schizophrenia, dementia, multiple myeloma and other medical comorbidities who decompensate with psychotic symptoms in the last days. Historically the patient had worsening of her psychotic and cognitive symptoms whenever she has a UTI. She was assessed in the ER and so far her UA was normal. At the moment of the intake interview she was grossly psychotic unable to provide any information with auditory hallucinations, visual hallucinations and responding to internal stimuli, also very paranoid refused to engage in the conversation. We need to gather more collateral information. Plan 1. Gather more collateral information. 2. Clozapine 200 mg p.o. q.h.s. on August 13 we are increasing up to 250 p.o. q.h.s. 3. Continue with the rest of the same medications. 4. We will have a family meeting to discuss treatment options. Reason for continued inpatient stay Substantial Risk for: inability to function, rapid decompensation and med/psych decompensation Time Spent With Patient Time: Total time managing care of this patient today __20__ minutes.
[2024-08-13 16:23] LABS: Clozapine (Clozaril) 131 mcg/L; Norclozapine 104 mcg/L (25-400)
[2024-08-13 20:00] VITALS: BP 103/58; PULSE 98; RESP 16; TEMP 36.4; O2SAT 100
[2024-08-13] MEDS: cloZAPine 200 MG, cloZAPine 50 MG 250 MG PO (21:01)
[2024-08-13] MEDS: Loratadine 10 MG TABLET PO (21:02)
[2024-08-14] MEDS: Omeprazole 20 MG CAPSULE.DR PO (06:06)
[2024-08-14 08:00] VITALS: BP 111/61; PULSE 90; RESP 18; TEMP 37; O2SAT 100
[2024-08-14] MEDS: Acyclovir 200 MG CAPSULE 400 MG PO (08:56)
[2024-08-14] MEDS: Cholecalciferol (Vitamin D3) 25 MCG TABLET 50 MCG PO (08:56)
[2024-08-14] MEDS: allopurinoL 100 MG TABLET PO (08:56)
[2024-08-14] MEDS: Calcium Carbonate 750 MG TAB.CHEW PO ×3 (08:56→20:36)
[2024-08-14] MEDS: Ferrous Sulfate 324 MG TABLET.DR PO (08:56)
[2024-08-14] MEDS: Aspirin Enteric Coated 81 MG TABLET.DR PO (08:57)
[2024-08-14] MEDS: LENALIDOMIDE 15 MG 15 EACH PO (09:00)
[2024-08-14 11:34] LABS: MANUAL DIFF FLAG NO
[2024-08-14 11:37] LABS: Basophils Percent Auto 0.3 % (0-2); Eosinophils Absolute Auto 0.2 X10*3/uL (0.0-0.4); Eosinophils Percent Auto 5.1 % (0-4); Hematocrit 33.7 % (37.0-47.0); Hemoglobin 10.7 g/dl (12.0-16.0); Imm Gran Abs Auto 0.05 X10*3/uL (0.00-0.03); Imm Gran Pct Auto 1.7 % (0.0-0.4); Lymphocytes Absolute Auto 0.8 X10*3/uL (1.2-4.9); Lymphocytes Percent Auto 26.6 % (20-40); Mean Corpuscular HGB Conc 31.8 g/dl (31.0-35.0); Mean Corpuscular Hemoglobin 29.9 pg (27.0-33.0); Mean Corpuscular Volume 94.1 fL (80.0-98.0); Mean Platelet Volume 10.4 fL (9.4-12.3); Monocytes Absolute Auto 0.3 X10*3/uL (0.1-1.2); Monocytes Percent Auto 11.3 % (2-11); Neutrophils Absolute Auto 1.6 x10*3/uL (2.0-8.3); Platelet Count 131 X10*3/uL (160-400); Red Blood Count 3.58 X10*6/uL (4.20-5.50); Red Cell Distribution Width 14.8 % (11.0-16.0); White Blood Count 2.9 X10*3/uL (4.8-10.8)
[2024-08-14 11:50] LABS: Alanine Aminotransferase 14 U/L (0-31); Albumin Level 3.5 g/dL (3.5-5.0); Alkaline Phosphatase 70 U/L (39-117); Anion Gap 11 (12-20); Aspartate Amino Transferase 22 U/L (5-31); Bilirubin Total 0.5 mg/dL (0.0-1.0); Blood Urea Nitrogen 18 mg/dL (9-16); Calcium 8.3 mg/dL (8.4-10.2); Carbon Dioxide 26 mmol/L (22-29); Chloride 110 mmol/L (96-108); Creatinine Clr Calc Pharmacy 51.7; Estimated Glomerular Filt Rate > 60; Glucose Random 97 mg/dL (60-115); Potassium 3.9 mmol/L (3.3-5.1); Sodium 143 mmol/L (135-145); Total Protein 6.5 g/dL (6.5-8.0)
[2024-08-14 14:57] VITALS: BMI 28.0
--- NOTE | 2024-08-14 16:25 | P.PNPSI_ITS ---
Subjective Subjective Date of Service: 08/14/24 Reason For Visit: paranoia Subjective Notes: Conditional Voluntary Interim History: The nursing staff reported occasion had been flat depressed anxious at times slept 8 hours. On interview the patient denies new symptoms she looks internally preoccupied Mental Status Exam Mental Status Exam Patient Appearance: Appropriate Patient Orientation: Person and Situation Level of Consciousness: Awake and Appropriate Patient Behavior: Guarded and Passive Mood Description: Withdrawn Affect Description: Constricted Patient Cognition Impaired: Yes Ability to Follow Directions: Good Speech Pattern: Clear Hallucinations: Auditory Delusions: Paranoid Ideation and Ideas of Reference Thought Process: Distracted and Slowed Thinking Thought Content: positive for [place] and positive for Poverty of Content Judgement: Fair Diagnostics Vital Signs (24Hr): Vital Signs - 24 hr 08/13/24 20:00 08/14/24 08:00 Temperature 97.6 F 98.6 F Pulse Rate 98 90 Respiratory Rate 16 18 Blood Pressure 103/58 L 111/61 Pulse Oximetry 100 100 Oxygen Delivery Method Room Air Room Air BMI result Body Mass Index 28.0 Labs 08/14/24 11:31 08/14/24 11:31 Labs: Laboratory Results - last 48 hr 08/08/24 08/14/24 10:51 11:31 WBC 2.9 L RBC 3.58 L Hgb 10.7 L Hct 33.7 L MCV 94.1 MCH 29.9 MCHC 31.8 RDW 14.8 Plt Count 131 L MPV 10.4 Immature Gran % (Auto) 1.7 H Neut % (Auto) 55.0 Lymph % (Auto) 26.6 [place] % (Auto) 11.3 H Eos % (Auto) 5.1 H Baso % (Auto) 0.3 Lymph # (Auto) 0.8 L [place] # (Auto) 0.3 Eos # (Auto) 0.2 Baso # (Auto) 0.0 Abs Immat Gran (auto) 0.05 H Absolute Neuts (auto) 1.6 L Absolute Nucleated RBC 0.000 Nucleated RBC % (auto) 0.0 Sodium 143 Potassium 3.9 Chloride 110 H Carbon Dioxide 26 Anion Gap 11 L BUN 18 H Creatinine 0.75 Estim Creat Clear Calc 51.7 Estimated GFR > 60 Random Glucose 97 Calcium 8.3 L D Total Bilirubin 0.5 AST 22 ALT 14 Alkaline Phosphatase 70 Total Protein 6.5 Albumin 3.5 Clozapine 131 Norclozapine 104 Imaging Radiology Impressions: ITS Impressions Chest X-Ray 08/05/24 15:34 IMPRESSION: No active pulmonary disease. Electronically signed by: Derrell Marti MD 08/05/2024 03:58 PM [facility] Medications Medications Current Medications Acetaminophen (Acetaminophen 325 Mg Tablet) 650 mg PO Q6H PRN PRN Reason: Headache/Pain Mild Scale (1-3) Acyclovir (Acyclovir 200 Mg Capsule) 400 mg PO DAILY [facility] Last Admin: 08/14/24 08:56 Dose: 400 mg Al Hydroxide/Mg Hydroxide (Magnesium Hydrox/Alum Hydrox 30 Ml Oral.Susp) 30 ml PO Q6H PRN PRN Reason: Heartburn/Nausea Albuterol Sulfate (Albuterol Sulfate 90 Mcg 8 Gm Inhaler) 2 puff INHALE Q4H PRN PRN Reason: Dyspnea Allopurinol (Allopurinol 100 Mg Tablet) 100 mg PO DAILY [facility] Last Admin: 08/14/24 08:56 Dose: 100 mg Aspirin (Aspirin Enteric Coated 81 Mg Tablet.) 81 mg PO DAILY [facility] Last Admin: 08/14/24 08:57 Dose: 81 mg Calcium Carbonate (Calcium Carbonate 750 Mg Tab.Chew) 750 mg PO TID [facility] Last Admin: 08/14/24 15:25 Dose: 750 mg Clozapine 200 mg/ Clozapine 50 (mg) 250 mg PO BEDTIME [facility] Last Admin: 08/13/24 21:01 Dose: 250 mg Ferrous Sulfate (Ferrous Sulfate 324 Mg Tablet.) 324 mg PO DAILY [facility] Last Admin: 08/14/24 08:56 Dose: 324 mg Hydroxyzine HCl (Hydroxyzine Hcl 25 Mg Tablet) 25 mg PO Q6H PRN PRN Reason: Anxiety Last Admin: 08/13/24 08:43 Dose: 25 mg Loperamide HCl (Loperamide Hcl 2 Mg Capsule) 2 mg PO DAILY PRN PRN Reason: Diarrhea Loratadine (Loratadine 10 Mg Tablet) 10 mg PO BEDTIME [facility] Last Admin: 08/13/24 21:02 Dose: 10 mg Lorazepam (Lorazepam 1 Mg Tablet) 1 mg PO DAILY PRN PRN Reason: Anxiety Magnesium Hydroxide (Milk Of Magnesia 30 Ml Oral.Susp) 30 ml PO DAILY PRN PRN Reason: Constipation Pt Own(Lenalidomide (15 Mg)) 15 mg PO DAILY [facility] Last Admin: 08/14/24 09:00 Dose: 15 mg Omeprazole (Omeprazole 20 Mg Capsule.Dr) 20 mg PO DAILY@0630 [facility] Last Admin: 08/14/24 06:06 Dose: 20 mg Ondansetron HCl (Ondansetron Odt 4 Mg Tab.Rapdis) 4 mg TRANSLINGU Q4H PRN PRN Reason: Nausea and Vomiting Senna (Sennosides 8.6 Mg Tablet) 17.2 mg PO DAILY PRN PRN Reason: Constipation Vitamin D (Cholecalciferol (Vitamin D3) 25 Mcg Tablet) 50 mcg PO DAILY [facility] Last Admin: 08/14/24 08:56 Dose: 50 mcg Allergies Allergies Allergy/AdvReac Type Severity Reaction Status Date / Time No Known Allergies Allergy Verified 08/05/24 15:00 [No Known Allergies*] Assessment & Plan Assessment & Plan (1) Schizophrenia: Status: Acute Code(s): F20.9 - Schizophrenia, unspecified (2) Dementia: Status: Acute Code(s): F03.90 - Unspecified dementia, unspecified severity, without behavioral disturbance, psychotic disturbance, mood disturbance, and anxiety Plan The patient is an elderly female with a past history of schizophrenia, dementia, multiple myeloma and other medical comorbidities who decompensate with psychotic symptoms in the last days. Historically the patient had worsening of her psychotic and cognitive symptoms whenever she has a UTI. She was assessed in the ER and so far her UA was normal. At the moment of the intake interview she was grossly psychotic unable to provide any information with auditory hallucinations, visual hallucinations and responding to internal stimuli, also very paranoid refused to engage in the conversation. We need to gather more collateral information. Plan 1. Gather more collateral information. 2. Clozapine 200 mg p.o. q.h.s. on August 13 we are increasing up to 250 p.o. q.h.s. 3. Continue with the rest of the same medications. 4. We will have a family meeting to discuss treatment options. Reason for continued inpatient stay Substantial Risk for: inability to function, rapid decompensation and med/psych decompensation Time Spent With Patient Time: Total time managing care of this patient today __20__ minutes.
[2024-08-14 20:00] VITALS: BP 105/62; PULSE 85; RESP 16; TEMP 36.4
[2024-08-14] MEDS: Loratadine 10 MG TABLET PO (20:35)
[2024-08-14] MEDS: cloZAPine 200 MG, cloZAPine 50 MG 250 MG PO (20:36)
[2024-08-15] MEDS: Omeprazole 20 MG CAPSULE.DR PO (05:56)
[2024-08-15] MEDS: Ferrous Sulfate 324 MG TABLET.DR PO (08:41)
[2024-08-15] MEDS: Cholecalciferol (Vitamin D3) 25 MCG TABLET 50 MCG PO (08:41)
[2024-08-15] MEDS: Aspirin Enteric Coated 81 MG TABLET.DR PO (08:42)
[2024-08-15] MEDS: Acyclovir 200 MG CAPSULE 400 MG PO (08:42)
[2024-08-15] MEDS: allopurinoL 100 MG TABLET PO (08:42)
[2024-08-15] MEDS: Calcium Carbonate 750 MG TAB.CHEW PO ×3 (08:42→21:34)
[2024-08-15] MEDS: LENALIDOMIDE 15 MG 15 EACH PO (08:42)
[2024-08-15 08:45] VITALS: BP 120/70; PULSE 100; RESP 20; TEMP 36.3; O2SAT 100
[2024-08-15] MEDS: Sertraline HCL 25 MG TABLET PO (09:29)
--- NOTE | 2024-08-15 13:46 | PC.NURSE ---
Received call from Oncology department, they reported they have cancelled the patients appointment for today, as she is inpatient, they will not be paid for the appointment. They will reschedule her for next week. I left a message for the granddaughter, Radha, to notfiy her of the situation. Dr. Leonard is aware.
--- NOTE | 2024-08-15 14:13 | P.PNPSI_ITS ---
Subjective Subjective Date of Service: 08/15/24 Reason For Visit: paranoia Subjective Notes: Conditional Voluntary Interim History: The nursing staff reported the patient had been internally preoccupied, she was seen self dialogue in but much less than slept 6 hours. On interview the patient reports that she does not have auditory hallucinations she looks internally preoccupied. We are going to keep Clozaril 250 and start Zoloft to improve her mood. Mental Status Exam Mental Status Exam Patient Appearance: Unkempt Patient Orientation: Person and Situation Level of Consciousness: Awake Patient Behavior: Guarded and Passive Mood Description: Withdrawn Affect Description: Blunted Patient Cognition Impaired: Yes Ability to Follow Directions: Good Speech Pattern: Clear Hallucinations: Auditory Delusions: Paranoid Ideation and Ideas of Reference Thought Process: Distracted and Slowed Thinking Thought Content: positive for [place] and positive for Poverty of Content Judgement: Poor Diagnostics Vital Signs (24Hr): Vital Signs - 24 hr 08/14/24 20:00 08/15/24 08:45 Temperature 97.6 F 97.4 F Pulse Rate 85 100 Respiratory Rate 16 20 Blood Pressure 105/62 120/70 Pulse Oximetry 100 Oxygen Delivery Method Room Air BMI result Body Mass Index 28.0 Labs 08/14/24 11:31 08/14/24 11:31 Labs: Laboratory Results - last 48 hr 08/08/24 08/14/24 10:51 11:31 WBC 2.9 L RBC 3.58 L Hgb 10.7 L Hct 33.7 L MCV 94.1 MCH 29.9 MCHC 31.8 RDW 14.8 Plt Count 131 L MPV 10.4 Immature Gran % (Auto) 1.7 H Neut % (Auto) 55.0 Lymph % (Auto) 26.6 [place] % (Auto) 11.3 H Eos % (Auto) 5.1 H Baso % (Auto) 0.3 Lymph # (Auto) 0.8 L Bl[place] # (Auto) 0.3 Eos # (Auto) 0.2 Baso # (Auto) 0.0 Abs Immat Gran (auto) 0.05 H Absolute Neuts (auto) 1.6 L Absolute Nucleated RBC 0.000 Nucleated RBC % (auto) 0.0 Sodium 143 Potassium 3.9 Chloride 110 H Carbon Dioxide 26 Anion Gap 11 L BUN 18 H Creatinine 0.75 Estim Creat Clear Calc 51.7 Estimated GFR > 60 Random Glucose 97 Calcium 8.3 L D Total Bilirubin 0.5 AST 22 ALT 14 Alkaline Phosphatase 70 Total Protein 6.5 Albumin 3.5 Clozapine 131 Norclozapine 104 Imaging Radiology Impressions: ITS Impressions Chest X-Ray 08/05/24 15:34 IMPRESSION: No active pulmonary disease. Electronically signed by: Derrell Marti MD 08/05/2024 03:58 PM [facility] Medications Medications Current Medications Acetaminophen (Acetaminophen 325 Mg Tablet) 650 mg PO Q6H PRN PRN Reason: Headache/Pain Mild Scale (1-3) Acyclovir (Acyclovir 200 Mg Capsule) 400 mg PO DAILY [facility] Last Admin: 08/15/24 08:42 Dose: 400 mg Al Hydroxide/Mg Hydroxide (Magnesium Hydrox/Alum Hydrox 30 Ml Oral.Susp) 30 ml PO Q6H PRN PRN Reason: Heartburn/Nausea Albuterol Sulfate (Albuterol Sulfate 90 Mcg 8 Gm Inhaler) 2 puff INHALE Q4H PRN PRN Reason: Dyspnea Allopurinol (Allopurinol 100 Mg Tablet) 100 mg PO DAILY [facility] Last Admin: 08/15/24 08:42 Dose: 100 mg Aspirin (Aspirin Enteric Coated 81 Mg Tablet.) 81 mg PO DAILY [facility] Last Admin: 08/15/24 08:42 Dose: 81 mg Calcium Carbonate (Calcium Carbonate 750 Mg Tab.Chew) 750 mg PO TID [facility] Last Admin: 08/15/24 08:42 Dose: 750 mg Clozapine 200 mg/ Clozapine 50 (mg) 250 mg PO BEDTIME [facility] Last Admin: 08/14/24 20:36 Dose: 250 mg Ferrous Sulfate (Ferrous Sulfate 324 Mg Tablet.) 324 mg PO DAILY [facility] Last Admin: 08/15/24 08:41 Dose: 324 mg Hydroxyzine HCl (Hydroxyzine Hcl 25 Mg Tablet) 25 mg PO Q6H PRN PRN Reason: Anxiety Last Admin: 08/13/24 08:43 Dose: 25 mg Loperamide HCl (Loperamide Hcl 2 Mg Capsule) 2 mg PO DAILY PRN PRN Reason: Diarrhea Loratadine (Loratadine 10 Mg Tablet) 10 mg PO BEDTIME [facility] Last Admin: 08/14/24 20:35 Dose: 10 mg Lorazepam (Lorazepam 1 Mg Tablet) 1 mg PO DAILY PRN PRN Reason: Anxiety Magnesium Hydroxide (Milk Of Magnesia 30 Ml Oral.Susp) 30 ml PO DAILY PRN PRN Reason: Constipation Pt Own(Lenalidomide (15 Mg)) 15 mg PO DAILY [facility] Last Admin: 08/15/24 08:42 Dose: 15 mg Omeprazole (Omeprazole 20 Mg Capsule.Dr) 20 mg PO DAILY@0630 [facility] Last Admin: 08/15/24 05:56 Dose: 20 mg Ondansetron HCl (Ondansetron Odt 4 Mg Tab.Rapdis) 4 mg TRANSLINGU Q4H PRN PRN Reason: Nausea and Vomiting Senna (Sennosides 8.6 Mg Tablet) 17.2 mg PO DAILY PRN PRN Reason: Constipation Sertraline HCl (Sertraline Hcl 25 Mg Tablet) 25 mg PO DAILY [facility] Last Admin: 08/15/24 09:29 Dose: 25 mg Vitamin D (Cholecalciferol (Vitamin D3) 25 Mcg Tablet) 50 mcg PO DAILY [facility] Last Admin: 08/15/24 08:41 Dose: 50 mcg Allergies Allergies Allergy/AdvReac Type Severity Reaction Status Date / Time No Known Allergies Allergy Verified 08/05/24 15:00 [No Known Allergies*] Assessment & Plan Assessment & Plan (1) Schizophrenia: Status: Acute Code(s): F20.9 - Schizophrenia, unspecified (2) Dementia: Status: Acute Code(s): F03.90 - Unspecified dementia, unspecified severity, without behavioral disturbance, psychotic disturbance, mood disturbance, and anxiety Plan The patient is an elderly female with a past history of schizophrenia, dementia, multiple myeloma and other medical comorbidities who decompensate with psychotic symptoms in the last days. Historically the patient had worsening of her psychotic and cognitive symptoms whenever she has a UTI. She was assessed in the ER and so far her UA was normal. At the moment of the intake interview she was grossly psychotic unable to provide any information with auditory hallucinations, visual hallucinations and responding to internal stimuli, also very paranoid refused to engage in the conversation. We need to gather more collateral information. Plan 1. Gather more collateral information. 2. Clozapine 200 mg p.o. q.h.s. on August 13 we are increasing up to 250 p.o. q.h.s. 3. Continue with the rest of the same medications. 4. We will have a family meeting to discuss treatment options. In that meeting they agreed to increase clozapine. 5. Start Zoloft 25 p.o. q.h.s. to target depression Reason for continued inpatient stay Substantial Risk for: inability to function, rapid decompensation and med/psych decompensation Time Spent With Patient Time: Total time managing care of this patient today __20__ minutes.
[2024-08-15 19:24] VITALS: BP 108/65; PULSE 95; TEMP 36.7; O2SAT 97
[2024-08-15] MEDS: Ondansetron ODT 4 MG TAB.RAPDIS TRANSLINGU (20:53)
[2024-08-15] MEDS: cloZAPine 200 MG, cloZAPine 50 MG 250 MG PO (21:33)
[2024-08-15] MEDS: Loratadine 10 MG TABLET PO (21:34)
[2024-08-16] MEDS: Ondansetron ODT 4 MG TAB.RAPDIS TRANSLINGU (01:53)
[2024-08-16] MEDS: Omeprazole 20 MG CAPSULE.DR PO (06:04)
[2024-08-16 07:55] VITALS: BP 100/68; PULSE 98; RESP 18; TEMP 36.2; O2SAT 100
[2024-08-16] MEDS: allopurinoL 100 MG TABLET PO (08:22)
[2024-08-16] MEDS: Acyclovir 200 MG CAPSULE 400 MG PO (08:22)
[2024-08-16] MEDS: Sertraline HCL 25 MG TABLET PO (08:22)
[2024-08-16] MEDS: Aspirin Enteric Coated 81 MG TABLET.DR PO (08:22)
[2024-08-16] MEDS: Cholecalciferol (Vitamin D3) 25 MCG TABLET 50 MCG PO (08:22)
[2024-08-16] MEDS: Ferrous Sulfate 324 MG TABLET.DR PO (08:22)
[2024-08-16] MEDS: Calcium Carbonate 750 MG TAB.CHEW PO ×3 (08:22→20:16)
[2024-08-16] MEDS: LENALIDOMIDE 15 MG 15 EACH PO (08:23)
--- NOTE | 2024-08-16 19:04 | P.PNPSI_ITS ---
Subjective Subjective Date of Service: 08/16/24 Reason For Visit: paranoia Subjective Notes: Conditional Voluntary Interim History: pt case reviewed ns pt seen with interpeter n and vomiting last nite better today withdrawn often self dialoguing Mental Status Exam Mental Status Exam Patient Appearance: Unkempt Patient Orientation: Person and Situation Level of Consciousness: Awake Patient Behavior: Guarded and Passive Mood Description: Withdrawn Affect Description: Blunted Patient Cognition Impaired: Yes Ability to Follow Directions: Fair Speech Pattern: Clear Delusions: Paranoid Ideation and Ideas of Reference Thought Process: Distracted and Slowed Thinking Thought Content: positive for [place] and positive for Poverty of Content Judgement: Poor Judgement and Insight: denied shahriar madrid cooperative with interview Diagnostics Vital Signs (24Hr): Vital Signs - 24 hr 08/15/24 19:24 08/16/24 07:55 Temperature 98.1 F 97.1 F Pulse Rate 95 98 Respiratory Rate 18 Blood Pressure 108/65 100/68 Pulse Oximetry 97 100 Oxygen Delivery Method Room Air Room Air BMI result Body Mass Index 28.0 Labs 08/14/24 11:31 08/14/24 11:31 Imaging Radiology Impressions: ITS Impressions Chest X-Ray 08/05/24 15:34 IMPRESSION: No active pulmonary disease. Electronically signed by: Derrell Marti MD 08/05/2024 03:58 PM [facility] Medications Medications Current Medications Acetaminophen (Acetaminophen 325 Mg Tablet) 650 mg PO Q6H PRN PRN Reason: Headache/Pain Mild Scale (1-3) Acyclovir (Acyclovir 200 Mg Capsule) 400 mg PO DAILY [facility] Last Admin: 08/16/24 08:22 Dose: 400 mg Al Hydroxide/Mg Hydroxide (Magnesium Hydrox/Alum Hydrox 30 Ml Oral.Susp) 30 ml PO Q6H PRN PRN Reason: Heartburn/Nausea Albuterol Sulfate (Albuterol Sulfate 90 Mcg 8 Gm Inhaler) 2 puff INHALE Q4H PRN PRN Reason: Dyspnea Allopurinol (Allopurinol 100 Mg Tablet) 100 mg PO DAILY [facility] Last Admin: 08/16/24 08:22 Dose: 100 mg Aspirin (Aspirin Enteric Coated 81 Mg Tablet.Dr) 81 mg PO DAILY [facility] Last Admin: 08/16/24 08:22 Dose: 81 mg Calcium Carbonate (Calcium Carbonate 750 Mg Tab.Chew) 750 mg PO TID [facility] Last Admin: 08/16/24 15:13 Dose: 750 mg Clozapine 200 mg/ Clozapine 50 (mg) 250 mg PO BEDTIME [facility] Last Admin: 08/15/24 21:33 Dose: 250 mg Ferrous Sulfate (Ferrous Sulfate 324 Mg Tablet.Dr) 324 mg PO DAILY [facility] Last Admin: 08/16/24 08:22 Dose: 324 mg Hydroxyzine HCl (Hydroxyzine Hcl 25 Mg Tablet) 25 mg PO Q6H PRN PRN Reason: Anxiety Last Admin: 08/13/24 08:43 Dose: 25 mg Loperamide HCl (Loperamide Hcl 2 Mg Capsule) 2 mg PO DAILY PRN PRN Reason: Diarrhea Loratadine (Loratadine 10 Mg Tablet) 10 mg PO BEDTIME [facility] Last Admin: 08/15/24 21:34 Dose: 10 mg Lorazepam (Lorazepam 1 Mg Tablet) 1 mg PO DAILY PRN PRN Reason: Anxiety Magnesium Hydroxide (Milk Of Magnesia 30 Ml Oral.Susp) 30 ml PO DAILY PRN PRN Reason: Constipation Pt Own(Lenalidomide (15 Mg)) 15 mg PO DAILY [facility] Last Admin: 08/16/24 08:23 Dose: 15 mg Omeprazole (Omeprazole 20 Mg Capsule.Dr) 20 mg PO DAILY@0630 [facility] Last Admin: 08/16/24 06:04 Dose: 20 mg Ondansetron HCl (Ondansetron Odt 4 Mg Tab.Rapdis) 4 mg TRANSLINGU Q4H PRN PRN Reason: Nausea and Vomiting Last Admin: 08/16/24 01:53 Dose: 4 mg Senna (Sennosides 8.6 Mg Tablet) 17.2 mg PO DAILY PRN PRN Reason: Constipation Sertraline HCl (Sertraline Hcl 25 Mg Tablet) 25 mg PO DAILY [facility] Last Admin: 08/16/24 08:22 Dose: 25 mg Vitamin D (Cholecalciferol (Vitamin D3) 25 Mcg Tablet) 50 mcg PO DAILY [facility] Last Admin: 08/16/24 08:22 Dose: 50 mcg Allergies Allergies Allergy/AdvReac Type Severity Reaction Status Date / Time No Known Allergies Allergy Verified 08/05/24 15:00 [No Known Allergies*] Assessment & Plan Assessment & Plan (1) Schizophrenia: Status: Acute Code(s): F20.9 - Schizophrenia, unspecified (2) Dementia: Status: Acute Code(s): F03.90 - Unspecified dementia, unspecified severity, without behavioral disturbance, psychotic disturbance, mood disturbance, and anxiety Plan The patient is an elderly female with a past history of schizophrenia, dementia, multiple myeloma and other medical comorbidities who decompensate with psychotic symptoms in the last days. Historically the patient had worsening of her psychotic and cognitive symptoms whenever she has a UTI. She was assessed in the ER and so far her UA was normal. At the moment of the intake interview she was grossly psychotic unable to provide any information with auditory hallucinations, visual hallucinations and responding to internal stimuli, also very paranoid refused to engage in the conversation. We need to gather more collateral information. Plan 1. Gather more collateral information. 2. Clozapine 200 mg p.o. q.h.s. on August 13 we are increasing up to 250 p.o. q.h.s. 3. Continue with the rest of the same medications. 4. We will have a family meeting to discuss treatment options. In that meeting they agreed to increase clozapine. 5. Start Zoloft 25 p.o. q.h.s. to target depression 2/2 in no distress no c/o abd pain had n v last nite none today monitor with clozapine watch for obstruction Reason for continued inpatient stay Substantial Risk for: inability to function and rapid decompensation Time Spent With Patient Time: Total time managing care of this patient today ____ minutes.
[2024-08-16 20:00] VITALS: BP 99/69; PULSE 83; RESP 16; TEMP 36.3; O2SAT 99
[2024-08-16] MEDS: cloZAPine 200 MG, cloZAPine 50 MG 250 MG PO (20:16)
[2024-08-16] MEDS: Loratadine 10 MG TABLET PO (20:16)
[2024-08-17] MEDS: Omeprazole 20 MG CAPSULE.DR PO (06:22)
[2024-08-17 08:00] VITALS: BP 124/97; PULSE 101; RESP 16; O2SAT 98
[2024-08-17] MEDS: LENALIDOMIDE 15 MG 15 EACH PO (08:21)
[2024-08-17] MEDS: Sennosides 8.6 MG TABLET 17.2 MG PO (08:22)
[2024-08-17] MEDS: Acyclovir 200 MG CAPSULE 400 MG PO (08:22)
[2024-08-17] MEDS: Cholecalciferol (Vitamin D3) 25 MCG TABLET 50 MCG PO (08:22)
[2024-08-17] MEDS: Aspirin Enteric Coated 81 MG TABLET.DR PO (08:23)
[2024-08-17] MEDS: allopurinoL 100 MG TABLET PO (08:23)
[2024-08-17] MEDS: Calcium Carbonate 750 MG TAB.CHEW PO ×3 (08:23→20:03)
[2024-08-17] MEDS: Ferrous Sulfate 324 MG TABLET.DR PO (08:23)
[2024-08-17] MEDS: Sertraline HCL 25 MG TABLET PO (08:23)
[2024-08-17 20:00] VITALS: BP 95/61; PULSE 90; RESP 18; TEMP 36.7; O2SAT 97
[2024-08-17] MEDS: cloZAPine 200 MG, cloZAPine 50 MG 250 MG PO (20:03)
[2024-08-17] MEDS: Loratadine 10 MG TABLET PO (20:03)
--- NOTE | 2024-08-18 00:40 | HO.PSYCHPN ---
Subjective Subjective Date of Service: 08/18/24 Reason For Visit: paranoia Diagnostics Vital Signs (24Hr): Vital Signs - 24 hr 08/17/24 08:00 08/17/24 20:00 Temperature 98.1 F Pulse Rate 101 H 90 Respiratory Rate 16 18 Blood Pressure 124/97 H 95/61 Pulse Oximetry 98 97 Oxygen Delivery Method Room Air Room Air BMI result Body Mass Index 28.0 Labs 08/14/24 11:31 08/14/24 11:31 Imaging Radiology Impressions: ITS Impressions Chest X-Ray 08/05/24 15:34 IMPRESSION: No active pulmonary disease. Electronically signed by: Derrell Marti MD 08/05/2024 03:58 PM [facility] Medications Medications Current Medications Acetaminophen (Acetaminophen 325 Mg Tablet) 650 mg PO Q6H PRN PRN Reason: Headache/Pain Mild Scale (1-3) Acyclovir (Acyclovir 200 Mg Capsule) 400 mg PO DAILY [facility] Last Admin: 08/17/24 08:22 Dose: 400 mg Al Hydroxide/Mg Hydroxide (Magnesium Hydrox/Alum Hydrox 30 Ml Oral.Susp) 30 ml PO Q6H PRN PRN Reason: Heartburn/Nausea Albuterol Sulfate (Albuterol Sulfate 90 Mcg 8 Gm Inhaler) 2 puff INHALE Q4H PRN PRN Reason: Dyspnea Allopurinol (Allopurinol 100 Mg Tablet) 100 mg PO DAILY [facility] Last Admin: 08/17/24 08:23 Dose: 100 mg Aspirin (Aspirin Enteric Coated 81 Mg Tablet.) 81 mg PO DAILY [facility] Last Admin: 08/17/24 08:23 Dose: 81 mg Calcium Carbonate (Calcium Carbonate 750 Mg Tab.Chew) 750 mg PO TID [facility] Last Admin: 08/17/24 20:03 Dose: 750 mg Clozapine 200 mg/ Clozapine 50 (mg) 250 mg PO BEDTIME [facility] Last Admin: 08/17/24 20:03 Dose: 250 mg Ferrous Sulfate (Ferrous Sulfate 324 Mg Tablet.) 324 mg PO DAILY [facility] Last Admin: 08/17/24 08:23 Dose: 324 mg Hydroxyzine HCl (Hydroxyzine Hcl 25 Mg Tablet) 25 mg PO Q6H PRN PRN Reason: Anxiety Last Admin: 08/13/24 08:43 Dose: 25 mg Loperamide HCl (Loperamide Hcl 2 Mg Capsule) 2 mg PO DAILY PRN PRN Reason: Diarrhea Loratadine (Loratadine 10 Mg Tablet) 10 mg PO BEDTIME [facility] Last Admin: 08/17/24 20:03 Dose: 10 mg Lorazepam (Lorazepam 1 Mg Tablet) 1 mg PO DAILY PRN PRN Reason: Anxiety Magnesium Hydroxide (Milk Of Magnesia 30 Ml Oral.Susp) 30 ml PO DAILY PRN PRN Reason: Constipation Pt Own(Lenalidomide (15 Mg)) 15 mg PO DAILY [facility] Last Admin: 08/17/24 08:21 Dose: 15 mg Omeprazole (Omeprazole 20 Mg Capsule.Dr) 20 mg PO DAILY@0630 [facility] Last Admin: 08/17/24 06:22 Dose: 20 mg Ondansetron HCl (Ondansetron Odt 4 Mg Tab.Rapdis) 4 mg TRANSLINGU Q4H PRN PRN Reason: Nausea and Vomiting Last Admin: 08/16/24 01:53 Dose: 4 mg Senna (Sennosides 8.6 Mg Tablet) 17.2 mg PO DAILY [facility] Last Admin: 08/17/24 08:22 Dose: 17.2 mg Sertraline HCl (Sertraline Hcl 25 Mg Tablet) 25 mg PO DAILY [facility] Last Admin: 08/17/24 08:23 Dose: 25 mg Vitamin D (Cholecalciferol (Vitamin D3) 25 Mcg Tablet) 50 mcg PO DAILY [facility] Last Admin: 08/17/24 08:22 Dose: 50 mcg Allergies Allergies Allergy/AdvReac Type Severity Reaction Status Date / Time No Known Allergies Allergy Verified 08/05/24 15:00 [No Known Allergies*] Assessment & Plan Assessment & Plan (1) Schizophrenia: Status: Acute Code(s): F20.9 - Schizophrenia, unspecified (2) Dementia: Status: Acute Code(s): F03.90 - Unspecified dementia, unspecified severity, without behavioral disturbance, psychotic disturbance, mood disturbance, and anxiety Plan The patient is an elderly female with a past history of schizophrenia, dementia, multiple myeloma and other medical comorbidities who decompensate with psychotic symptoms in the last days. Historically the patient had worsening of her psychotic and cognitive symptoms whenever she has a UTI. She was assessed in the ER and so far her UA was normal. At the moment of the intake interview she was grossly psychotic unable to provide any information with auditory hallucinations, visual hallucinations and responding to internal stimuli, also very paranoid refused to engage in the conversation. We need to gather more collateral information. Plan 1. Gather more collateral information. 2. Clozapine 200 mg p.o. q.h.s. on August 13 we are increasing up to 250 p.o. q.h.s. 3. Continue with the rest of the same medications. 4. We will have a family meeting to discuss treatment options. In that meeting they agreed to increase clozapine. 5. Start Zoloft 25 p.o. q.h.s. to target depression 2/2 in no distress no c/o abd pain had n v last nite none today monitor with clozapine watch for obstruction Time Spent With Patient Time: Total time managing care of this patient today ____ minutes.
[2024-08-18] MEDS: Omeprazole 20 MG CAPSULE.DR PO (06:08)
[2024-08-18 09:17] VITALS: BP 134/60; PULSE 96; RESP 15; TEMP 36.9; O2SAT 97
[2024-08-18] MEDS: allopurinoL 100 MG TABLET PO (09:22)
[2024-08-18] MEDS: LENALIDOMIDE 15 MG 15 EACH PO (09:22)
[2024-08-18] MEDS: Cholecalciferol (Vitamin D3) 25 MCG TABLET 50 MCG PO (09:22)
[2024-08-18] MEDS: Ferrous Sulfate 324 MG TABLET.DR PO (09:22)
[2024-08-18] MEDS: Aspirin Enteric Coated 81 MG TABLET.DR PO (09:22)
[2024-08-18] MEDS: Sennosides 8.6 MG TABLET 17.2 MG PO (09:22)
[2024-08-18] MEDS: Calcium Carbonate 750 MG TAB.CHEW PO ×3 (09:22→20:24)
[2024-08-18] MEDS: Acyclovir 200 MG CAPSULE 400 MG PO (09:23)
[2024-08-18] MEDS: Sertraline HCL 25 MG TABLET PO (09:23)
--- NOTE | 2024-08-18 15:03 | P.PNPSI_ITS ---
Subjective Subjective Date of Service: 08/18/24 Reason For Visit: paranoia Subjective Notes: Conditional Voluntary Interim History: The nursing staff reported the patient refused shower she had been quiet self dialogue in, slept 6 hours. On interview the patient denies feeling okay but she looks internally preoccupied we are increasing Clozaril up to 300 mg p.o. q.h.s. Mental Status Exam Mental Status Exam Patient Appearance: Well Grooomed and Appropriate Patient Orientation: Person and Situation Level of Consciousness: Awake and Appropriate Patient Behavior: Guarded and Passive Mood Description: Withdrawn Affect Description: Constricted Patient Cognition Impaired: Yes Ability to Follow Directions: Good Speech Pattern: Clear Hallucinations: Auditory Delusions: Paranoid Ideation and Ideas of Reference Thought Process: Distracted and Slowed Thinking Thought Content: positive for [place] and positive for Poverty of Content Judgement: Poor Diagnostics Vital Signs (24Hr): Vital Signs - 24 hr 08/17/24 20:00 08/18/24 09:17 Temperature 98.1 F 98.4 F Pulse Rate 90 96 Respiratory Rate 18 15 Blood Pressure 95/61 134/60 Pulse Oximetry 97 97 Oxygen Delivery Method Room Air Room Air BMI result Body Mass Index 28.0 Labs 08/14/24 11:31 08/14/24 11:31 Imaging Radiology Impressions: ITS Impressions Chest X-Ray 08/05/24 15:34 IMPRESSION: No active pulmonary disease. Electronically signed by: Derrell Marti MD 08/05/2024 03:[address] [facility] Medications Medications Current Medications Acetaminophen (Acetaminophen 325 Mg Tablet) 650 mg PO Q6H PRN PRN Reason: Headache/Pain Mild Scale (1-3) Acyclovir (Acyclovir 200 Mg Capsule) 400 mg PO DAILY [facility] Last Admin: 08/18/24 09:23 Dose: 400 mg Al Hydroxide/Mg Hydroxide (Magnesium Hydrox/Alum Hydrox 30 Ml Oral.Susp) 30 ml PO Q6H PRN PRN Reason: Heartburn/Nausea Albuterol Sulfate (Albuterol Sulfate 90 Mcg 8 Gm Inhaler) 2 puff INHALE Q4H PRN PRN Reason: Dyspnea Allopurinol (Allopurinol 100 Mg Tablet) 100 mg PO DAILY [facility] Last Admin: 08/18/24 09:22 Dose: 100 mg Aspirin (Aspirin Enteric Coated 81 Mg Tablet.Dr) 81 mg PO DAILY [facility] Last Admin: 08/18/24 09:22 Dose: 81 mg Calcium Carbonate (Calcium Carbonate 750 Mg Tab.Chew) 750 mg PO TID [facility] Last Admin: 08/18/24 09:22 Dose: 750 mg Clozapine (Clozapine 100 Mg Tablet) 300 mg PO BEDTIME [facility] Ferrous Sulfate (Ferrous Sulfate 324 Mg Tablet.Dr) 324 mg PO DAILY [facility] Last Admin: 08/18/24 09:22 Dose: 324 mg Hydroxyzine HCl (Hydroxyzine Hcl 25 Mg Tablet) 25 mg PO Q6H PRN PRN Reason: Anxiety Last Admin: 08/13/24 08:43 Dose: 25 mg Loperamide HCl (Loperamide Hcl 2 Mg Capsule) 2 mg PO DAILY PRN PRN Reason: Diarrhea Loratadine (Loratadine 10 Mg Tablet) 10 mg PO BEDTIME [facility] Last Admin: 08/17/24 20:03 Dose: 10 mg Lorazepam (Lorazepam 1 Mg Tablet) 1 mg PO DAILY PRN PRN Reason: Anxiety Magnesium Hydroxide (Milk Of Magnesia 30 Ml Oral.Susp) 30 ml PO DAILY PRN PRN Reason: Constipation Pt Own(Lenalidomide (15 Mg)) 15 mg PO DAILY [facility] Last Admin: 08/18/24 09:22 Dose: 15 mg Omeprazole (Omeprazole 20 Mg Capsule.Dr) 20 mg PO DAILY@0630 [facility] Last Admin: 08/18/24 06:08 Dose: 20 mg Ondansetron HCl (Ondansetron Odt 4 Mg Tab.Rapdis) 4 mg TRANSLINGU Q4H PRN PRN Reason: Nausea and Vomiting Last Admin: 08/16/24 01:53 Dose: 4 mg Senna (Sennosides 8.6 Mg Tablet) 17.2 mg PO DAILY [facility] Last Admin: 08/18/24 09:22 Dose: 17.2 mg Sertraline HCl (Sertraline Hcl 25 Mg Tablet) 25 mg PO DAILY [facility] Last Admin: 08/18/24 09:23 Dose: 25 mg Vitamin D (Cholecalciferol (Vitamin D3) 25 Mcg Tablet) 50 mcg PO DAILY [facility] Last Admin: 08/18/24 09:22 Dose: 50 mcg Allergies Allergies Allergy/AdvReac Type Severity Reaction Status Date / Time No Known Allergies Allergy Verified 08/05/24 15:00 [No Known Allergies*] Assessment & Plan Assessment & Plan (1) Schizophrenia: Status: Acute Code(s): F20.9 - Schizophrenia, unspecified (2) Dementia: Status: Acute Code(s): F03.90 - Unspecified dementia, unspecified severity, without behavioral disturbance, psychotic disturbance, mood disturbance, and anxiety Plan The patient is an elderly female with a past history of schizophrenia, dementia, multiple myeloma and other medical comorbidities who decompensate with psychotic symptoms in the last days. Historically the patient had worsening of her psychotic and cognitive symptoms whenever she has a UTI. She was assessed in the ER and so far her UA was normal. At the moment of the intake interview she was grossly psychotic unable to provide any information with auditory hallucinations, visual hallucinations and responding to internal stimuli, also very paranoid refused to engage in the conversation. We need to gather more collateral information. Plan 1. Gather more collateral information. 2. Clozapine 200 mg p.o. q.h.s. on August 13 we are increasing up to 250 p.o. q.h.s. on August 18 we are increasing up to 300 p.o. q.h.s. to target psychosis. 3. Continue with the rest of the same medications. 4. We will have a family meeting to discuss treatment options. In that meeting they agreed to increase clozapine. 5. Start Zoloft 25 p.o. q.h.s. to target depression Reason for continued inpatient stay Substantial Risk for: inability to function, rapid decompensation and med/psych decompensation Time Spent With Patient Time: Total time managing care of this patient today __20__ minutes.
[2024-08-18 20:00] VITALS: BP 115/59; PULSE 85; TEMP 36.4; O2SAT 99
[2024-08-18] MEDS: cloZAPine 100 MG TABLET 300 MG PO (20:23)
[2024-08-18] MEDS: Loratadine 10 MG TABLET PO (20:23)
[2024-08-19] MEDS: Omeprazole 20 MG CAPSULE.DR PO (06:07)
[2024-08-19 07:10] LABS: Neut%MD 61.3 %; Neutrophils Absolute Auto 1.9 x10*3/uL (2.0-8.3); WBCANC 3.1 X10*3/uL
[2024-08-19 08:00] VITALS: BP 104/60; PULSE 85; RESP 16; TEMP 36; O2SAT 100
[2024-08-19] MEDS: Sertraline HCL 25 MG TABLET PO (08:58)
[2024-08-19] MEDS: Sennosides 8.6 MG TABLET 17.2 MG PO (08:58)
[2024-08-19] MEDS: Aspirin Enteric Coated 81 MG TABLET.DR PO (08:58)
[2024-08-19] MEDS: Calcium Carbonate 750 MG TAB.CHEW PO ×3 (08:58→20:39)
[2024-08-19] MEDS: Acyclovir 200 MG CAPSULE 400 MG PO (08:58)
[2024-08-19] MEDS: Cholecalciferol (Vitamin D3) 25 MCG TABLET 50 MCG PO (08:58)
[2024-08-19] MEDS: allopurinoL 100 MG TABLET PO (08:58)
[2024-08-19] MEDS: Ferrous Sulfate 324 MG TABLET.DR PO (08:58)
[2024-08-19] MEDS: LENALIDOMIDE 15 MG 15 EACH PO (09:02)
--- NOTE | 2024-08-19 16:05 | HO.PSYCHPN ---
Subjective Subjective Date of Service: 08/19/24 Reason For Visit: paranoia Subjective Notes: Conditional Voluntary Interim History: The nursing staff reported the patient had been isolative in her bed most of the time. She had been pleasant cooperative compliant with treatment slept 8 hours. Line she had diarrhea. On interview the patient denies new symptoms states that she is feeling fine but looks internally preoccupied. Mental Status Exam Mental Status Exam Patient Appearance: Appropriate Patient Orientation: Person and Situation Level of Consciousness: Awake Patient Behavior: Guarded and Passive Mood Description: Calm Affect Description: Constricted Patient Cognition Impaired: Yes Ability to Follow Directions: Good Speech Pattern: Clear Hallucinations: Auditory Delusions: Paranoid Ideation and Ideas of Reference Thought Process: Distracted and Slowed Thinking Thought Content: positive for [place] and positive for Poverty of Content Judgement: Fair Diagnostics Vital Signs (24Hr): Vital Signs - 24 hr 08/18/24 20:00 08/19/24 08:00 Temperature 97.6 F 96.8 F Pulse Rate 85 85 Respiratory Rate 16 Blood Pressure 115/59 L 104/60 Pulse Oximetry 99 100 Oxygen Delivery Method Room Air Room Air BMI result Body Mass Index 28.0 Labs 08/14/24 11:31 08/14/24 11:31 Labs: Laboratory Results - last 48 hr 08/19/24 07:04 Absolute Neuts (auto) 1.9 L Imaging Radiology Impressions: ITS Impressions Chest X-Ray 08/05/24 15:34 IMPRESSION: No active pulmonary disease. Electronically signed by: Derrell Marti MD 08/05/2024 03:58 PM [facility] Medications Medications Current Medications Acetaminophen (Acetaminophen 325 Mg Tablet) 650 mg PO Q6H PRN PRN Reason: Headache/Pain Mild Scale (1-3) Acyclovir (Acyclovir 200 Mg Capsule) 400 mg PO DAILY [facility] Last Admin: 08/19/24 08:58 Dose: 400 mg Al Hydroxide/Mg Hydroxide (Magnesium Hydrox/Alum Hydrox 30 Ml Oral.Susp) 30 ml PO Q6H PRN PRN Reason: Heartburn/Nausea Albuterol Sulfate (Albuterol Sulfate 90 Mcg 8 Gm Inhaler) 2 puff INHALE Q4H PRN PRN Reason: Dyspnea Allopurinol (Allopurinol 100 Mg Tablet) 100 mg PO DAILY [facility] Last Admin: 08/19/24 08:58 Dose: 100 mg Aspirin (Aspirin Enteric Coated 81 Mg Tablet.) 81 mg PO DAILY [facility] Last Admin: 08/19/24 08:58 Dose: 81 mg Calcium Carbonate (Calcium Carbonate 750 Mg Tab.Chew) 750 mg PO TID [facility] Last Admin: 08/19/24 15:02 Dose: 750 mg Clozapine (Clozapine 100 Mg Tablet) 300 mg PO BEDTIME [facility] Last Admin: 08/18/24 20:23 Dose: 300 mg Ferrous Sulfate (Ferrous Sulfate 324 Mg Tablet.) 324 mg PO DAILY [facility] Last Admin: 08/19/24 08:58 Dose: 324 mg Hydroxyzine HCl (Hydroxyzine Hcl 25 Mg Tablet) 25 mg PO Q6H PRN PRN Reason: Anxiety Last Admin: 08/13/24 08:43 Dose: 25 mg Loperamide HCl (Loperamide Hcl 2 Mg Capsule) 2 mg PO DAILY PRN PRN Reason: Diarrhea Loratadine (Loratadine 10 Mg Tablet) 10 mg PO BEDTIME [facility] Last Admin: 08/18/24 20:23 Dose: 10 mg Lorazepam (Lorazepam 1 Mg Tablet) 1 mg PO DAILY PRN PRN Reason: Anxiety Magnesium Hydroxide (Milk Of Magnesia 30 Ml Oral.Susp) 30 ml PO DAILY PRN PRN Reason: Constipation Pt Own(Lenalidomide (15 Mg)) 15 mg PO DAILY [facility] Last Admin: 08/19/24 09:02 Dose: 15 mg Omeprazole (Omeprazole 20 Mg Capsule.) 20 mg PO DAILY@0630 [facility] Last Admin: 08/19/24 06:07 Dose: 20 mg Ondansetron HCl (Ondansetron Odt 4 Mg Tab.Rapdis) 4 mg TRANSLINGU Q4H PRN PRN Reason: Nausea and Vomiting Last Admin: 08/16/24 01:53 Dose: 4 mg Senna (Sennosides 8.6 Mg Tablet) 17.2 mg PO DAILY [facility] Last Admin: 08/19/24 08:58 Dose: 17.2 mg Sertraline HCl (Sertraline Hcl 25 Mg Tablet) 25 mg PO DAILY [facility] Last Admin: 08/19/24 08:58 Dose: 25 mg Vitamin D (Cholecalciferol (Vitamin D3) 25 Mcg Tablet) 50 mcg PO DAILY [facility] Last Admin: 08/19/24 08:58 Dose: 50 mcg Allergies Allergies Allergy/AdvReac Type Severity Reaction Status Date / Time No Known Allergies Allergy Verified 08/05/24 15:00 [No Known Allergies*] Assessment & Plan Assessment & Plan (1) Schizophrenia: Status: Acute Code(s): F20.9 - Schizophrenia, unspecified (2) Dementia: Status: Acute Code(s): F03.90 - Unspecified dementia, unspecified severity, without behavioral disturbance, psychotic disturbance, mood disturbance, and anxiety Plan The patient is an elderly female with a past history of schizophrenia, dementia, multiple myeloma and other medical comorbidities who decompensate with psychotic symptoms in the last days. Historically the patient had worsening of her psychotic and cognitive symptoms whenever she has a UTI. She was assessed in the ER and so far her UA was normal. At the moment of the intake interview she was grossly psychotic unable to provide any information with auditory hallucinations, visual hallucinations and responding to internal stimuli, also very paranoid refused to engage in the conversation. We need to gather more collateral information. Plan 1. Gather more collateral information. 2. Clozapine 200 mg p.o. q.h.s. on August 13 we are increasing up to 250 p.o. q.h.s. on August 18 we are increasing up to 300 p.o. q.h.s. to target psychosis. 3. Continue with the rest of the same medications. 4. We will have a family meeting to discuss treatment options. In that meeting they agreed to increase clozapine. 5. Start Zoloft 25 p.o. q.h.s. to target depression Reason for continued inpatient stay Substantial Risk for: inability to function, rapid decompensation and med/psych decompensation Time Spent With Patient Time: Total time managing care of this patient today __20__ minutes.
[2024-08-19 20:00] VITALS: BP 101/57; PULSE 86; RESP 16; TEMP 36.2; O2SAT 98
[2024-08-19] MEDS: Loratadine 10 MG TABLET PO (20:39)
[2024-08-19] MEDS: cloZAPine 100 MG TABLET 300 MG PO (20:39)
[2024-08-20] MEDS: Omeprazole 20 MG CAPSULE.DR PO (06:06)
[2024-08-20 08:14] VITALS: BP 111/66; PULSE 82; RESP 18; TEMP 36.4; O2SAT 100
[2024-08-20] MEDS: allopurinoL 100 MG TABLET PO (08:20)
[2024-08-20] MEDS: Aspirin Enteric Coated 81 MG TABLET.DR PO (08:20)
[2024-08-20] MEDS: Sertraline HCL 25 MG TABLET PO (08:20)
[2024-08-20] MEDS: Cholecalciferol (Vitamin D3) 25 MCG TABLET 50 MCG PO (08:21)
[2024-08-20] MEDS: Calcium Carbonate 750 MG TAB.CHEW PO ×2 (08:21→21:02)
[2024-08-20] MEDS: Acyclovir 200 MG CAPSULE 400 MG PO (08:21)
--- NOTE | 2024-08-20 15:58 | P.PNPSI_ITS ---
Subjective Subjective Date of Service: 08/20/24 Reason For Visit: paranoia Subjective Notes: Conditional Voluntary Interim History: The nursing staff reported the patient had been isolative most of the time in her room. She was seen responding to internal stimuli. His blood pressure medications were held yesterday due to hypotension. On interview the patient denies new symptoms, she looks internally preoccupied chronically psychotic no side-effects with the increase of Clozaril. Mental Status Exam Mental Status Exam Patient Appearance: Appropriate Patient Orientation: Person and Situation Level of Consciousness: Awake Patient Behavior: Guarded and Passive Mood Description: Withdrawn Affect Description: Constricted Patient Cognition Impaired: Yes Ability to Follow Directions: Good Speech Pattern: Clear Hallucinations: None Delusions: Paranoid Ideation and Ideas of Reference Thought Process: Distracted and Slowed Thinking Thought Content: positive for [place] and positive for Poverty of Content Judgement: Fair Diagnostics Vital Signs (24Hr): Vital Signs - 24 hr 08/19/24 20:00 08/20/24 08:14 Temperature 97.2 F 97.5 F Pulse Rate 86 82 Respiratory Rate 16 18 Blood Pressure 101/57 L 111/66 Pulse Oximetry 98 100 Oxygen Delivery Method Room Air Room Air BMI result Body Mass Index 28.0 Labs 08/14/24 11:31 08/14/24 11:31 Labs: Laboratory Results - last 48 hr 08/19/24 07:04 Absolute Neuts (auto) 1.9 L Imaging Radiology Impressions: ITS Impressions Chest X-Ray 08/05/24 15:34 IMPRESSION: No active pulmonary disease. Electronically signed by: Derrell Marti MD 08/05/2024 03:58 PM [facility] [place] Medications Medications Current Medications Acetaminophen (Acetaminophen 325 Mg Tablet) 650 mg PO Q6H PRN PRN Reason: Headache/Pain Mild Scale (1-3) Acyclovir (Acyclovir 200 Mg Capsule) 400 mg PO DAILY [facility] Last Admin: 08/20/24 08:21 Dose: 400 mg Al Hydroxide/Mg Hydroxide (Magnesium Hydrox/Alum Hydrox 30 Ml Oral.Susp) 30 ml PO Q6H PRN PRN Reason: Heartburn/Nausea Albuterol Sulfate (Albuterol Sulfate 90 Mcg 8 Gm Inhaler) 2 puff INHALE Q4H PRN PRN Reason: Dyspnea Allopurinol (Allopurinol 100 Mg Tablet) 100 mg PO DAILY [facility] Last Admin: 08/20/24 08:20 Dose: 100 mg Aspirin (Aspirin Enteric Coated 81 Mg Tablet.) 81 mg PO DAILY [facility] Last Admin: 08/20/24 08:20 Dose: 81 mg Calcium Carbonate (Calcium Carbonate 750 Mg Tab.Chew) 750 mg PO TID [facility] Last Admin: 08/20/24 08:21 Dose: 750 mg Clozapine (Clozapine 100 Mg Tablet) 300 mg PO BEDTIME [facility] Last Admin: 08/19/24 20:39 Dose: 300 mg Ferrous Sulfate (Ferrous Sulfate 324 Mg Tablet.) 324 mg PO DAILY [facility] Last Admin: 08/20/24 09:03 Dose: Not Given Hydroxyzine HCl (Hydroxyzine Hcl 25 Mg Tablet) 25 mg PO Q6H PRN PRN Reason: Anxiety Last Admin: 08/13/24 08:43 Dose: 25 mg Loperamide HCl (Loperamide Hcl 2 Mg Capsule) 2 mg PO DAILY PRN PRN Reason: Diarrhea Loratadine (Loratadine 10 Mg Tablet) 10 mg PO BEDTIME [facility] Last Admin: 08/19/24 20:39 Dose: 10 mg Lorazepam (Lorazepam 1 Mg Tablet) 1 mg PO DAILY PRN PRN Reason: Anxiety Magnesium Hydroxide (Milk Of Magnesia 30 Ml Oral.Susp) 30 ml PO DAILY PRN PRN Reason: Constipation Pt Own(Lenalidomide (15 Mg)) 15 mg PO DAILY [facility] Last Admin: 08/20/24 09:02 Dose: Not Given Omeprazole (Omeprazole 20 Mg Capsule.) 20 mg PO DAILY@0630 [facility] Last Admin: 08/20/24 06:06 Dose: 20 mg Ondansetron HCl (Ondansetron Odt 4 Mg Tab.Rapdis) 4 mg TRANSLINGU Q4H PRN PRN Reason: Nausea and Vomiting Last Admin: 08/16/24 01:53 Dose: 4 mg Senna (Sennosides 8.6 Mg Tablet) 17.2 mg PO DAILY [facility] Last Admin: 08/20/24 09:02 Dose: Not Given Sertraline HCl (Sertraline Hcl 25 Mg Tablet) 25 mg PO DAILY [facility] Last Admin: 08/20/24 08:20 Dose: 25 mg Vitamin D (Cholecalciferol (Vitamin D3) 25 Mcg Tablet) 50 mcg PO DAILY [facility] Last Admin: 08/20/24 08:21 Dose: 50 mcg Allergies Allergies Allergy/AdvReac Type Severity Reaction Status Date / Time No Known Allergies Allergy Verified 08/05/24 15:00 [No Known Allergies*] Assessment & Plan Assessment & Plan (1) Schizophrenia: Status: Acute Code(s): F20.9 - Schizophrenia, unspecified (2) Dementia: Status: Acute Code(s): F03.90 - Unspecified dementia, unspecified severity, without behavioral disturbance, psychotic disturbance, mood disturbance, and anxiety Plan The patient is an elderly female with a past history of schizophrenia, dementia, multiple myeloma and other medical comorbidities who decompensate with psychotic symptoms in the last days. Historically the patient had worsening of her psychotic and cognitive symptoms whenever she has a UTI. She was assessed in the ER and so far her UA was normal. At the moment of the intake interview she was grossly psychotic unable to provide any information with auditory hallucinations, visual hallucinations and responding to internal stimuli, also very paranoid refused to engage in the conversation. We need to gather more collateral information. Plan 1. Gather more collateral information. 2. Clozapine 200 mg p.o. q.h.s. on August 13 we are increasing up to 250 p.o. q.h.s. on August 18 we are increasing up to 300 p.o. q.h.s. to target psychosis. 3. Continue with the rest of the same medications. 4. We will have a family meeting to discuss treatment options. In that meeting they agreed to increase clozapine. 5. Start Zoloft 25 p.o. q.h.s. to target depression Reason for continued inpatient stay Substantial Risk for: inability to function, rapid decompensation and med/psych decompensation Time Spent With Patient Time: Total time managing care of this patient today __20__ minutes.
[2024-08-20 20:00] VITALS: BP 111/57; PULSE 85; RESP 16; TEMP 36.4; O2SAT 100
[2024-08-20] MEDS: cloZAPine 100 MG TABLET 300 MG PO (21:02)
[2024-08-20] MEDS: Loratadine 10 MG TABLET PO (21:02)
[2024-08-21] MEDS: Omeprazole 20 MG CAPSULE.DR PO (06:22)
[2024-08-21 08:00] VITALS: BP 116/70; PULSE 83; RESP 18; TEMP 36.6; O2SAT 99
[2024-08-21] MEDS: Aspirin Enteric Coated 81 MG TABLET.DR PO (08:48)
[2024-08-21] MEDS: Calcium Carbonate 750 MG TAB.CHEW PO ×3 (08:48→20:28)
[2024-08-21] MEDS: Sertraline HCL 25 MG TABLET PO (08:48)
[2024-08-21] MEDS: Ferrous Sulfate 324 MG TABLET.DR PO (08:48)
[2024-08-21] MEDS: allopurinoL 100 MG TABLET PO (08:49)
[2024-08-21] MEDS: Sennosides 8.6 MG TABLET 17.2 MG PO (08:49)
[2024-08-21] MEDS: Cholecalciferol (Vitamin D3) 25 MCG TABLET 50 MCG PO (08:49)
[2024-08-21] MEDS: Acyclovir 200 MG CAPSULE 400 MG PO (08:49)
--- NOTE | 2024-08-21 15:49 | HO.PSYCHPN ---
Subjective Subjective Date of Service: 08/21/24 Reason For Visit: paranoia Subjective Notes: Conditional Voluntary Interim History: The nursing staff reported the patient remains seclusive in her bed, not showering isolative. The social insurance administrator will have a family meeting tomorrow in the evening. On interview the patient denies new symptoms she looks dysphoric we are increasing Zoloft up to 50 p.o. q.a.m. Mental Status Exam Mental Status Exam Patient Appearance: Disheveled Patient Orientation: Person and Situation Level of Consciousness: Awake Patient Behavior: Guarded and Passive Mood Description: Calm Affect Description: Blunted Patient Cognition Impaired: Yes Ability to Follow Directions: Good Speech Pattern: Clear Hallucinations: Auditory Delusions: Paranoid Ideation and Ideas of Reference Thought Process: Distracted and Slowed Thinking Thought Content: positive for [place] and positive for Poverty of Content Judgement: Fair Diagnostics Vital Signs (24Hr): Vital Signs - 24 hr 08/20/24 20:00 08/21/24 08:00 Temperature 97.6 F 97.8 F Pulse Rate 85 83 Respiratory Rate 16 18 Blood Pressure 111/57 L 116/70 Pulse Oximetry 100 99 Oxygen Delivery Method Room Air Room Air BMI result Body Mass Index 28.0 Labs 08/14/24 11:31 08/14/24 11:31 Imaging Radiology Impressions: ITS Impressions Chest X-Ray 08/05/24 15:34 IMPRESSION: No active pulmonary disease. Electronically signed by: Derrell Marti MD 08/05/2024 03:58 PM [facility] Medications Medications Current Medications Acetaminophen (Acetaminophen 325 Mg Tablet) 650 mg PO Q6H PRN PRN Reason: Headache/Pain Mild Scale (1-3) Acyclovir (Acyclovir 200 Mg Capsule) 400 mg PO DAILY [facility] Last Admin: 08/21/24 08:49 Dose: 400 mg Al Hydroxide/Mg Hydroxide (Magnesium Hydrox/Alum Hydrox 30 Ml Oral.Susp) 30 ml PO Q6H PRN PRN Reason: Heartburn/Nausea Albuterol Sulfate (Albuterol Sulfate 90 Mcg 8 Gm Inhaler) 2 puff INHALE Q4H PRN PRN Reason: Dyspnea Allopurinol (Allopurinol 100 Mg Tablet) 100 mg PO DAILY [facility] Last Admin: 08/21/24 08:49 Dose: 100 mg Aspirin (Aspirin Enteric Coated 81 Mg Tablet.Dr) 81 mg PO DAILY [facility] Last Admin: 08/21/24 08:48 Dose: 81 mg Calcium Carbonate (Calcium Carbonate 750 Mg Tab.Chew) 750 mg PO TID [facility] Last Admin: 08/21/24 08:48 Dose: 750 mg Clozapine (Clozapine 100 Mg Tablet) 300 mg PO BEDTIME [facility] Last Admin: 08/20/24 21:02 Dose: 300 mg Ferrous Sulfate (Ferrous Sulfate 324 Mg Tablet.) 324 mg PO DAILY [facility] Last Admin: 08/21/24 08:48 Dose: 324 mg Hydroxyzine HCl (Hydroxyzine Hcl 25 Mg Tablet) 25 mg PO Q6H PRN PRN Reason: Anxiety Last Admin: 08/13/24 08:43 Dose: 25 mg Loperamide HCl (Loperamide Hcl 2 Mg Capsule) 2 mg PO DAILY PRN PRN Reason: Diarrhea Loratadine (Loratadine 10 Mg Tablet) 10 mg PO BEDTIME [facility] Last Admin: 08/20/24 21:02 Dose: 10 mg Lorazepam (Lorazepam 1 Mg Tablet) 1 mg PO DAILY PRN PRN Reason: Anxiety Magnesium Hydroxide (Milk Of Magnesia 30 Ml Oral.Susp) 30 ml PO DAILY PRN PRN Reason: Constipation Pt Own(Lenalidomide (15 Mg)) 15 mg PO DAILY [facility] Last Admin: 08/21/24 09:24 Dose: Not Given Omeprazole (Omeprazole 20 Mg Capsule.) 20 mg PO DAILY@0630 [facility] Last Admin: 08/21/24 06:22 Dose: 20 mg Ondansetron HCl (Ondansetron Odt 4 Mg Tab.Rapdis) 4 mg TRANSLINGU Q4H PRN PRN Reason: Nausea and Vomiting Last Admin: 08/16/24 01:53 Dose: 4 mg Senna (Sennosides 8.6 Mg Tablet) 17.2 mg PO DAILY [facility] Last Admin: 08/21/24 08:49 Dose: 17.2 mg Sertraline HCl (Sertraline Hcl 50 Mg Tablet) 50 mg PO DAILY [facility] Vitamin D (Cholecalciferol (Vitamin D3) 25 Mcg Tablet) 50 mcg PO DAILY [facility] Last Admin: 08/21/24 08:49 Dose: 50 mcg Allergies Allergies Allergy/AdvReac Type Severity Reaction Status Date / Time No Known Allergies Allergy Verified 08/05/24 15:00 [No Known Allergies*] Assessment & Plan Assessment & Plan (1) Schizophrenia: Status: Acute Code(s): F20.9 - Schizophrenia, unspecified (2) Dementia: Status: Acute Code(s): F03.90 - Unspecified dementia, unspecified severity, without behavioral disturbance, psychotic disturbance, mood disturbance, and anxiety Plan The patient is an elderly female with a past history of schizophrenia, dementia, multiple myeloma and other medical comorbidities who decompensate with psychotic symptoms in the last days. Historically the patient had worsening of her psychotic and cognitive symptoms whenever she has a UTI. She was assessed in the ER and so far her UA was normal. At the moment of the intake interview she was grossly psychotic unable to provide any information with auditory hallucinations, visual hallucinations and responding to internal stimuli, also very paranoid refused to engage in the conversation. We need to gather more collateral information. Plan 1. Gather more collateral information. 2. Clozapine 200 mg p.o. q.h.s. on August 13 we are increasing up to 250 p.o. q.h.s. on August 18 we are increasing up to 300 p.o. q.h.s. to target psychosis. 3. Continue with the rest of the same medications. 4. We will have a family meeting to discuss treatment options. In that meeting they agreed to increase clozapine. 5. Start Zoloft 25 p.o. q.h.s. to target depression. We are increasing Zoloft up to 50 mg on August 21 Reason for continued inpatient stay Substantial Risk for: inability to function, rapid decompensation and med/psych decompensation Time Spent With Patient Time: Total time managing care of this patient today _20___ minutes.
[2024-08-21 20:00] VITALS: BP 99/51; PULSE 88; RESP 18; TEMP 35.9; O2SAT 100
[2024-08-21] MEDS: hydrOXYzine HCL 25 MG TABLET PO (20:28)
[2024-08-21] MEDS: cloZAPine 100 MG TABLET 300 MG PO (20:28)
[2024-08-21] MEDS: Loratadine 10 MG TABLET PO (20:29)
[2024-08-22] MEDS: Omeprazole 20 MG CAPSULE.DR PO (06:16)
[2024-08-22 08:00] VITALS: BP 112/69; PULSE 100; RESP 18; TEMP 36.2; O2SAT 96
[2024-08-22] MEDS: Aspirin Enteric Coated 81 MG TABLET.DR PO (08:56)
[2024-08-22] MEDS: Ferrous Sulfate 324 MG TABLET.DR PO (08:56)
[2024-08-22] MEDS: Sertraline HCL 50 MG TABLET PO (08:56)
[2024-08-22] MEDS: Calcium Carbonate 750 MG TAB.CHEW PO ×3 (08:56→20:06)
[2024-08-22] MEDS: Sennosides 8.6 MG TABLET 17.2 MG PO (08:56)
[2024-08-22] MEDS: Cholecalciferol (Vitamin D3) 25 MCG TABLET 50 MCG PO (08:56)
[2024-08-22] MEDS: allopurinoL 100 MG TABLET PO (08:56)
[2024-08-22] MEDS: Acyclovir 200 MG CAPSULE 400 MG PO (08:56)
--- NOTE | 2024-08-22 10:37 | HO.PSYCHPN ---
Subjective Subjective Date of Service: 08/22/24 Reason For Visit: paranoia Subjective Notes: Conditional Voluntary Interim History: Pt slept through the night. She was visible this morning for breakfast. Noted less self dialoguing. She denied any physical concerns. She is taking medications as prescribed. No behavioral concerns. Medication Compliance: Yes Review of Systems Review of Systems Denies Yes all other systems are reviewed and are negative Diagnostics Vital Signs (24Hr): Vital Signs - 24 hr 08/21/24 20:00 08/22/24 08:00 Temperature 96.7 F L 97.2 F Pulse Rate 88 100 Respiratory Rate 18 18 Blood Pressure 99/51 L 112/69 Pulse Oximetry 100 96 Oxygen Delivery Method Room Air Room Air BMI result Body Mass Index 28.0 Labs 08/14/24 11:31 08/14/24 11:31 Imaging Radiology Impressions: ITS Impressions Chest X-Ray 08/05/24 15:34 IMPRESSION: No active pulmonary disease. Electronically signed by: Derrell Marti MD 08/05/2024 03:58 PM [facility] Medications Medications Current Medications Acetaminophen (Acetaminophen 325 Mg Tablet) 650 mg PO Q6H PRN PRN Reason: Headache/Pain Mild Scale (1-3) Acyclovir (Acyclovir 200 Mg Capsule) 400 mg PO DAILY [facility] Last Admin: 08/22/24 08:56 Dose: 400 mg Al Hydroxide/Mg Hydroxide (Magnesium Hydrox/Alum Hydrox 30 Ml Oral.Susp) 30 ml PO Q6H PRN PRN Reason: Heartburn/Nausea Albuterol Sulfate (Albuterol Sulfate 90 Mcg 8 Gm Inhaler) 2 puff INHALE Q4H PRN PRN Reason: Dyspnea Allopurinol (Allopurinol 100 Mg Tablet) 100 mg PO DAILY [facility] Last Admin: 08/22/24 08:56 Dose: 100 mg Aspirin (Aspirin Enteric Coated 81 Mg Tablet.) 81 mg PO DAILY [facility] Last Admin: 08/22/24 08:56 Dose: 81 mg Calcium Carbonate (Calcium Carbonate 750 Mg Tab.Chew) 750 mg PO TID [facility] Last Admin: 08/22/24 08:56 Dose: 750 mg Clozapine (Clozapine 100 Mg Tablet) 300 mg PO BEDTIME [facility] Last Admin: 08/21/24 20:28 Dose: 300 mg Ferrous Sulfate (Ferrous Sulfate 324 Mg Tablet.) 324 mg PO DAILY [facility] Last Admin: 08/22/24 08:56 Dose: 324 mg Hydroxyzine HCl (Hydroxyzine Hcl 25 Mg Tablet) 25 mg PO Q6H PRN PRN Reason: Anxiety Last Admin: 08/21/24 20:28 Dose: 25 mg Loperamide HCl (Loperamide Hcl 2 Mg Capsule) 2 mg PO DAILY PRN PRN Reason: Diarrhea Loratadine (Loratadine 10 Mg Tablet) 10 mg PO BEDTIME [facility] Last Admin: 08/21/24 20:29 Dose: 10 mg Lorazepam (Lorazepam 1 Mg Tablet) 1 mg PO DAILY PRN PRN Reason: Anxiety Magnesium Hydroxide (Milk Of Magnesia 30 Ml Oral.Susp) 30 ml PO DAILY PRN PRN Reason: Constipation Pt Own(Lenalidomide (15 Mg)) 15 mg PO DAILY [facility] Last Admin: 08/22/24 09:52 Dose: Not Given Omeprazole (Omeprazole 20 Mg Capsule.Dr) 20 mg PO DAILY@0630 [facility] Last Admin: 08/22/24 06:16 Dose: 20 mg Ondansetron HCl (Ondansetron Odt 4 Mg Tab.Rapdis) 4 mg TRANSLINGU Q4H PRN PRN Reason: Nausea and Vomiting Last Admin: 08/16/24 01:53 Dose: 4 mg Senna (Sennosides 8.6 Mg Tablet) 17.2 mg PO DAILY [facility] Last Admin: 08/22/24 08:56 Dose: 17.2 mg Sertraline HCl (Sertraline Hcl 50 Mg Tablet) 50 mg PO DAILY [facility] Last Admin: 08/22/24 08:56 Dose: 50 mg Vitamin D (Cholecalciferol (Vitamin D3) 25 Mcg Tablet) 50 mcg PO DAILY [facility] Last Admin: 08/22/24 08:56 Dose: 50 mcg Allergies Allergies Allergy/AdvReac Type Severity Reaction Status Date / Time No Known Allergies Allergy Verified 08/05/24 15:00 [No Known Allergies*] Assessment & Plan Assessment & Plan (1) Schizophrenia: Status: Acute Code(s): F20.9 - Schizophrenia, unspecified (2) Dementia: Status: Acute Code(s): F03.90 - Unspecified dementia, unspecified severity, without behavioral disturbance, psychotic disturbance, mood disturbance, and anxiety Plan The patient is an elderly female with a past history of schizophrenia, dementia, multiple myeloma and other medical comorbidities who decompensate with psychotic symptoms in the last days. Historically the patient had worsening of her psychotic and cognitive symptoms whenever she has a UTI. She was assessed in the ER and so far her UA was normal. At the moment of the intake interview she was grossly psychotic unable to provide any information with auditory hallucinations, visual hallucinations and responding to internal stimuli, also very paranoid refused to engage in the conversation. We need to gather more collateral information. Plan 08/22- continue tx. can recheck clozaril/norclozaril level after clozaril titration. Reason for continued inpatient stay Substantial Risk for: inability to function Time Spent With Patient Time: Total time managing care of this patient today ____ minutes.
[2024-08-22 19:39] VITALS: BP 111/57; PULSE 107; RESP 18; TEMP 37.1; O2SAT 100
[2024-08-22] MEDS: Loratadine 10 MG TABLET PO (20:06)
[2024-08-22] MEDS: cloZAPine 100 MG TABLET 300 MG PO (20:06)
[2024-08-23] MEDS: Omeprazole 20 MG CAPSULE.DR PO (06:09)
--- NOTE | 2024-08-23 08:33 | P.PNPSI_ITS ---
Subjective Subjective Date of Service: 08/23/24 Reason For Visit: paranoia Subjective Notes: Conditional Voluntary (HCP) Healthcare Proxy: Yes Guardianship: No Medical Problems Affecting Mental Status: Yes (dementia progression) Interim History: 79 yo with episode of diarrhea- set up technician present for ?s and she would initially report a complaint and then deny and say all was ok - Nursing report pt self dialoguing, paranoid ideation and appears internally preoccupied- She did admit to voices in her head- but then said its ok Medication Compliance: Yes Side effects from medications: No Attending Groups: No Review of Systems Acute medical concerns: Yes massive diarrhea this am Medical Review of Systems: changed Review of Systems: see above , denies pain or other- doesn't appear dehydrated nor febrile- no n/v denies abd pain Mental Status Exam Mental Status Exam Patient Appearance: Unkempt Patient Orientation: Person Level of Consciousness: Awake Patient Behavior: Dependent and Cooperative Affect Description: Anxious Ability to Follow Directions: Fair Speech Pattern: Impoverished Hallucinations: Auditory Thought Process: Confusion Thought Content: positive for [place] and positive for Poverty of Content Judgement: Poor Diagnostics Vital Signs (24Hr): Vital Signs - 24 hr 08/22/24 19:39 Temperature 98.8 F Pulse Rate 107 H Respiratory Rate 18 Blood Pressure 111/57 L Pulse Oximetry 100 Oxygen Delivery Method Room Air BMI result Body Mass Index 28.0 Labs 08/14/24 11:31 08/14/24 11:31 Imaging Radiology Impressions: ITS Impressions Chest X-Ray 08/05/24 15:34 IMPRESSION: No active pulmonary disease. Electronically signed by: Derrell Marti MD 08/05/2024 03:58 PM [facility] [place] Medications Medications Current Medications Acetaminophen (Acetaminophen 325 Mg Tablet) 650 mg PO Q6H PRN PRN Reason: Headache/Pain Mild Scale (1-3) Acyclovir (Acyclovir 200 Mg Capsule) 400 mg PO DAILY [facility] Last Admin: 08/22/24 08:56 Dose: 400 mg Al Hydroxide/Mg Hydroxide (Magnesium Hydrox/Alum Hydrox 30 Ml Oral.Susp) 30 ml PO Q6H PRN PRN Reason: Heartburn/Nausea Albuterol Sulfate (Albuterol Sulfate 90 Mcg 8 Gm Inhaler) 2 puff INHALE Q4H PRN PRN Reason: Dyspnea Allopurinol (Allopurinol 100 Mg Tablet) 100 mg PO DAILY [facility] Last Admin: 08/22/24 08:56 Dose: 100 mg Aspirin (Aspirin Enteric Coated 81 Mg Tablet.) 81 mg PO DAILY [facility] Last Admin: 08/22/24 08:56 Dose: 81 mg Calcium Carbonate (Calcium Carbonate 750 Mg Tab.Chew) 750 mg PO TID [facility] Last Admin: 08/22/24 20:06 Dose: 750 mg Clozapine (Clozapine 100 Mg Tablet) 300 mg PO BEDTIME [facility] Last Admin: 08/22/24 20:06 Dose: 300 mg Ferrous Sulfate (Ferrous Sulfate 324 Mg Tablet.) 324 mg PO DAILY [facility] Last Admin: 08/22/24 08:56 Dose: 324 mg Hydroxyzine HCl (Hydroxyzine Hcl 25 Mg Tablet) 25 mg PO Q6H PRN PRN Reason: Anxiety Last Admin: 08/21/24 20:28 Dose: 25 mg Loperamide HCl (Loperamide Hcl 2 Mg Capsule) 2 mg PO DAILY PRN PRN Reason: Diarrhea Loratadine (Loratadine 10 Mg Tablet) 10 mg PO BEDTIME [facility] Last Admin: 08/22/24 20:06 Dose: 10 mg Lorazepam (Lorazepam 1 Mg Tablet) 1 mg PO DAILY PRN PRN Reason: Anxiety Magnesium Hydroxide (Milk Of Magnesia 30 Ml Oral.Susp) 30 ml PO DAILY PRN PRN Reason: Constipation Pt Own(Lenalidomide (15 Mg)) 15 mg PO DAILY [facility] Last Admin: 08/22/24 09:52 Dose: Not Given Omeprazole (Omeprazole 20 Mg Capsule.) 20 mg PO DAILY@0630 [facility] Last Admin: 08/23/24 06:09 Dose: 20 mg Ondansetron HCl (Ondansetron Odt 4 Mg Tab.Rapdis) 4 mg TRANSLINGU Q4H PRN PRN Reason: Nausea and Vomiting Last Admin: 08/16/24 01:53 Dose: 4 mg Senna (Sennosides 8.6 Mg Tablet) 17.2 mg PO DAILY [facility] Last Admin: 08/22/24 08:56 Dose: 17.2 mg Sertraline HCl (Sertraline Hcl 50 Mg Tablet) 50 mg PO DAILY [facility] Last Admin: 08/22/24 08:56 Dose: 50 mg Vitamin D (Cholecalciferol (Vitamin D3) 25 Mcg Tablet) 50 mcg PO DAILY [facility] Last Admin: 08/22/24 08:56 Dose: 50 mcg Allergies Allergies Allergy/AdvReac Type Severity Reaction Status Date / Time No Known Allergies Allergy Verified 08/05/24 15:00 [No Known Allergies*] Assessment & Plan Assessment & Plan (1) Schizophrenia: Status: Acute Code(s): F20.9 - Schizophrenia, unspecified (2) Dementia: Status: Acute Code(s): F03.90 - Unspecified dementia, unspecified severity, without behavioral disturbance, psychotic disturbance, mood disturbance, and anxiety Plan The patient is an elderly female with a past history of schizophrenia, dementia, multiple myeloma and other medical comorbidities who decompensate with psychotic symptoms in the last days. Historically the patient had worsening of her psychotic and cognitive symptoms whenever she has a UTI. She was assessed in the ER and so far her UA was normal. At the moment of the intake interview she was grossly psychotic unable to provide any information with auditory hallucinations, visual hallucinations and responding to internal stimuli, also very paranoid refused to engage in the conversation. We need to gather more collateral information. Plan 08/22- continue tx. can recheck clozaril/norclozaril level after clozaril titration. 08/23- episode of diarrhea no other sys- continues with dementia and ah- /pI- but doesn't seem particularly concerned with this provider and with set up technician Reason for continued inpatient stay Substantial Risk for: inability to function and med/psych decompensation Time Spent With Patient Time: Total time managing care of this patient today ____ minutes.
[2024-08-23 10:55] VITALS: BP 150/74; PULSE 98; RESP 15; TEMP 36.5; O2SAT 100
[2024-08-23] MEDS: Ferrous Sulfate 324 MG TABLET.DR PO (10:57)
[2024-08-23] MEDS: Cholecalciferol (Vitamin D3) 25 MCG TABLET 50 MCG PO (10:57)
[2024-08-23] MEDS: Sertraline HCL 50 MG TABLET PO (10:57)
[2024-08-23] MEDS: Calcium Carbonate 750 MG TAB.CHEW PO ×3 (10:58→20:05)
[2024-08-23] MEDS: Aspirin Enteric Coated 81 MG TABLET.DR PO (10:58)
[2024-08-23] MEDS: allopurinoL 100 MG TABLET PO (10:58)
[2024-08-23] MEDS: Sennosides 8.6 MG TABLET 17.2 MG PO (10:58)
[2024-08-23] MEDS: Acyclovir 200 MG CAPSULE 400 MG PO (10:58)
[2024-08-23 20:00] VITALS: BP 118/66; PULSE 78; RESP 18; TEMP 36.8; O2SAT 99
[2024-08-23] MEDS: cloZAPine 100 MG TABLET 300 MG PO (20:05)
[2024-08-23] MEDS: Loratadine 10 MG TABLET PO (20:05)
[2024-08-24] MEDS: Omeprazole 20 MG CAPSULE.DR PO (05:48)
[2024-08-24 08:08] VITALS: BP 128/66; PULSE 95; RESP 16; TEMP 36.4; O2SAT 100
[2024-08-24] MEDS: Ferrous Sulfate 324 MG TABLET.DR PO (08:26)
[2024-08-24] MEDS: Calcium Carbonate 750 MG TAB.CHEW PO ×3 (08:26→21:35)
[2024-08-24] MEDS: Acyclovir 200 MG CAPSULE 400 MG PO (08:26)
[2024-08-24] MEDS: allopurinoL 100 MG TABLET PO (08:26)
[2024-08-24] MEDS: Aspirin Enteric Coated 81 MG TABLET.DR PO (08:26)
[2024-08-24] MEDS: Cholecalciferol (Vitamin D3) 25 MCG TABLET 50 MCG PO (08:26)
[2024-08-24] MEDS: Sertraline HCL 50 MG TABLET PO (08:26)
--- NOTE | 2024-08-24 11:44 | HO.PSYCHPN ---
Subjective Subjective Date of Service: 08/24/24 Reason For Visit: paranoia Subjective Notes: Conditional Voluntary (HCP) Healthcare Proxy: Yes Guardianship: No Medical Problems Affecting Mental Status: Yes (dementia) Interim History: Pt seen with refrigeration systems installer- denies any complaints- no abd pain or problems with diarrhea today by pt report- denies side effect of medications, keeps saying ok and fine to all questions- Medication Compliance: Yes Side effects from medications: No Attending Groups: No Review of Systems watching anc count as it is borderline Medical Review of Systems: unchanged Mental Status Exam Mental Status Exam Narrative: lying in bed Patient Appearance: Unkempt Patient Orientation: Person Level of Consciousness: Awake Patient Behavior: Dependent Mood Description: Withdrawn Affect Description: Blunted Patient Cognition Impaired: Yes Ability to Follow Directions: Poor Speech Pattern: Impoverished Thought Process: Intact Thought Content: positive for [place] and positive for Poverty of Content Judgement: Poor Diagnostics Vital Signs (24Hr): Vital Signs - 24 hr 08/23/24 20:00 08/24/24 08:08 Temperature 98.2 F 97.5 F Pulse Rate 78 95 Respiratory Rate 18 16 Blood Pressure 118/66 128/66 Pulse Oximetry 99 100 Oxygen Delivery Method Room Air Room Air BMI result Body Mass Index 28.0 Labs 08/14/24 11:31 08/14/24 11:31 Imaging Radiology Impressions: ITS Impressions Chest X-Ray 08/05/24 15:34 IMPRESSION: No active pulmonary disease. Electronically signed by: Derrell Marti MD 08/05/2024 03:58 PM [facility] [place] Medications Medications Current Medications Acetaminophen (Acetaminophen 325 Mg Tablet) 650 mg PO Q6H PRN PRN Reason: Headache/Pain Mild Scale (1-3) Acyclovir (Acyclovir 200 Mg Capsule) 400 mg PO DAILY [facility] Last Admin: 08/24/24 08:26 Dose: 400 mg Al Hydroxide/Mg Hydroxide (Magnesium Hydrox/Alum Hydrox 30 Ml Oral.Susp) 30 ml PO Q6H PRN PRN Reason: Heartburn/Nausea Albuterol Sulfate (Albuterol Sulfate 90 Mcg 8 Gm Inhaler) 2 puff INHALE Q4H PRN PRN Reason: Dyspnea Allopurinol (Allopurinol 100 Mg Tablet) 100 mg PO DAILY [facility] Last Admin: 08/24/24 08:26 Dose: 100 mg Aspirin (Aspirin Enteric Coated 81 Mg Tablet.) 81 mg PO DAILY [facility] Last Admin: 08/24/24 08:26 Dose: 81 mg Calcium Carbonate (Calcium Carbonate 750 Mg Tab.Chew) 750 mg PO TID [facility] Last Admin: 08/24/24 08:26 Dose: 750 mg Clozapine (Clozapine 100 Mg Tablet) 300 mg PO BEDTIME [facility] Last Admin: 08/23/24 20:05 Dose: 300 mg Ferrous Sulfate (Ferrous Sulfate 324 Mg Tablet.) 324 mg PO DAILY [facility] Last Admin: 08/24/24 08:26 Dose: 324 mg Hydroxyzine HCl (Hydroxyzine Hcl 25 Mg Tablet) 25 mg PO Q6H PRN PRN Reason: Anxiety Last Admin: 08/21/24 20:28 Dose: 25 mg Loperamide HCl (Loperamide Hcl 2 Mg Capsule) 2 mg PO DAILY PRN PRN Reason: Diarrhea Loratadine (Loratadine 10 Mg Tablet) 10 mg PO BEDTIME [facility] Last Admin: 08/23/24 20:05 Dose: 10 mg Lorazepam (Lorazepam 1 Mg Tablet) 1 mg PO DAILY PRN PRN Reason: Anxiety Magnesium Hydroxide (Milk Of Magnesia 30 Ml Oral.Susp) 30 ml PO DAILY PRN PRN Reason: Constipation Pt Own(Lenalidomide (15 Mg)) 15 mg PO DAILY [facility] Last Admin: 08/24/24 07:50 Dose: Not Given Omeprazole (Omeprazole 20 Mg Capsule.) 20 mg PO DAILY@0630 [facility] Last Admin: 08/24/24 05:48 Dose: 20 mg Ondansetron HCl (Ondansetron Odt 4 Mg Tab.Rapdis) 4 mg TRANSLINGU Q4H PRN PRN Reason: Nausea and Vomiting Last Admin: 08/16/24 01:53 Dose: 4 mg Senna (Sennosides 8.6 Mg Tablet) 17.2 mg PO DAILY [facility] Last Admin: 08/24/24 07:51 Dose: Not Given Sertraline HCl (Sertraline Hcl 50 Mg Tablet) 50 mg PO DAILY [facility] Last Admin: 08/24/24 08:26 Dose: 50 mg Vitamin D (Cholecalciferol (Vitamin D3) 25 Mcg Tablet) 50 mcg PO DAILY [facility] Last Admin: 08/24/24 08:26 Dose: 50 mcg Allergies Allergies Allergy/AdvReac Type Severity Reaction Status Date / Time No Known Allergies Allergy Verified 08/05/24 15:00 [No Known Allergies*] Assessment & Plan Assessment & Plan (1) Schizophrenia: Status: Acute Code(s): F20.9 - Schizophrenia, unspecified (2) Dementia: Status: Acute Code(s): F03.90 - Unspecified dementia, unspecified severity, without behavioral disturbance, psychotic disturbance, mood disturbance, and anxiety Plan The patient is an elderly female with a past history of schizophrenia, dementia, multiple myeloma and other medical comorbidities who decompensate with psychotic symptoms in the last days. Historically the patient had worsening of her psychotic and cognitive symptoms whenever she has a UTI. She was assessed in the ER and so far her UA was normal. At the moment of the intake interview she was grossly psychotic unable to provide any information with auditory hallucinations, visual hallucinations and responding to internal stimuli, also very paranoid refused to engage in the conversation. We need to gather more collateral information. Plan 08/22- continue tx. can recheck clozaril/norclozaril level after clozaril titration. 08/23- episode of diarrhea no other sys- continues with dementia and ah- /pI- but doesn't seem particularly concerned with this provider and with refrigeration systems installer 08/24 denying anything today- unclear what she understands/knows despite refrigeration systems installer dismissive of all - Reason for continued inpatient stay Substantial Risk for: inability to function and med/psych decompensation Time Spent With Patient Time: Total time managing care of this patient today ____ minutes.
[2024-08-24] MEDS: Loperamide HCl 2 MG CAPSULE PO (14:42)
[2024-08-24 19:55] VITALS: BP 93/50; PULSE 82; RESP 16; TEMP 36.5; O2SAT 100
[2024-08-24] MEDS: cloZAPine 100 MG TABLET 300 MG PO (21:34)
[2024-08-24] MEDS: Loratadine 10 MG TABLET PO (21:35)
[2024-08-24] MEDS: hydrOXYzine HCL 25 MG TABLET PO (21:35)
[2024-08-25] MEDS: Omeprazole 20 MG CAPSULE.DR PO (06:18)
[2024-08-25 08:00] VITALS: BP 120/72; PULSE 87; RESP 16; TEMP 36.1; O2SAT 99
[2024-08-25] MEDS: Sertraline HCL 50 MG TABLET PO (09:32)
[2024-08-25] MEDS: Sennosides 8.6 MG TABLET 17.2 MG PO (09:32)
[2024-08-25] MEDS: Acyclovir 200 MG CAPSULE 400 MG PO (09:32)
[2024-08-25] MEDS: Calcium Carbonate 750 MG TAB.CHEW PO ×2 (09:32→20:38)
[2024-08-25] MEDS: Cholecalciferol (Vitamin D3) 25 MCG TABLET 50 MCG PO (09:32)
[2024-08-25] MEDS: allopurinoL 100 MG TABLET PO (09:32)
[2024-08-25] MEDS: Ferrous Sulfate 324 MG TABLET.DR PO (09:32)
[2024-08-25] MEDS: Aspirin Enteric Coated 81 MG TABLET.DR PO (09:32)
--- NOTE | 2024-08-25 12:00 | P.PNPSI_ITS ---
Subjective Subjective Date of Service: 08/25/24 Reason For Visit: paranoia Subjective Notes: Conditional Voluntary Interim History: Pt slept through the night. She is taking medications as prescribed. No behavioral concerns. No noted self dialoguing but pt somewhat guarded. She denies SI/HI. She also denies hearing voices, but even when she does this is not the case. episode of loose stools- given imodium. Review of Systems Review of Systems Denies Yes all other systems are reviewed and are negative Mental Status Exam Mental Status Exam Narrative: lying in bed Patient Appearance: Unkempt Patient Orientation: Person Level of Consciousness: Awake Patient Behavior: Dependent Mood Description: Withdrawn Affect Description: Blunted Patient Cognition Impaired: Yes Ability to Follow Directions: Poor Speech Pattern: Impoverished Diagnostics Vital Signs (24Hr): Vital Signs - 24 hr 08/24/24 19:55 08/25/24 08:00 Temperature 97.7 F 97.0 F Pulse Rate 82 87 Respiratory Rate 16 16 Blood Pressure 93/50 L 120/72 Pulse Oximetry 100 99 Oxygen Delivery Method Room Air Room Air BMI result Body Mass Index 28.0 Labs 08/14/24 11:31 08/14/24 11:31 Imaging Radiology Impressions: ITS Impressions Chest X-Ray 08/05/24 15:34 IMPRESSION: No active pulmonary disease. Electronically signed by: Derrell Marti MD 08/05/2024 03:58 PM [facility] [place] Medications Medications Current Medications Acetaminophen (Acetaminophen 325 Mg Tablet) 650 mg PO Q6H PRN PRN Reason: Headache/Pain Mild Scale (1-3) Acyclovir (Acyclovir 200 Mg Capsule) 400 mg PO DAILY [facility] Last Admin: 08/25/24 09:32 Dose: 400 mg Al Hydroxide/Mg Hydroxide (Magnesium Hydrox/Alum Hydrox 30 Ml Oral.Susp) 30 ml PO Q6H PRN PRN Reason: Heartburn/Nausea Albuterol Sulfate (Albuterol Sulfate 90 Mcg 8 Gm Inhaler) 2 puff INHALE Q4H PRN PRN Reason: Dyspnea Allopurinol (Allopurinol 100 Mg Tablet) 100 mg PO DAILY [facility] Last Admin: 08/25/24 09:32 Dose: 100 mg Aspirin (Aspirin Enteric Coated 81 Mg Tablet.) 81 mg PO DAILY [facility] Last Admin: 08/25/24 09:32 Dose: 81 mg Calcium Carbonate (Calcium Carbonate 750 Mg Tab.Chew) 750 mg PO TID [facility] Last Admin: 08/25/24 09:32 Dose: 750 mg Clozapine (Clozapine 100 Mg Tablet) 300 mg PO BEDTIME [facility] Last Admin: 08/24/24 21:34 Dose: 300 mg Ferrous Sulfate (Ferrous Sulfate 324 Mg Tablet.) 324 mg PO DAILY [facility] Last Admin: 08/25/24 09:32 Dose: 324 mg Hydroxyzine HCl (Hydroxyzine Hcl 25 Mg Tablet) 25 mg PO Q6H PRN PRN Reason: Anxiety Last Admin: 08/24/24 21:35 Dose: 25 mg Loperamide HCl (Loperamide Hcl 2 Mg Capsule) 2 mg PO DAILY PRN PRN Reason: Diarrhea Last Admin: 08/24/24 14:42 Dose: 2 mg Loratadine (Loratadine 10 Mg Tablet) 10 mg PO BEDTIME [facility] Last Admin: 08/24/24 21:35 Dose: 10 mg Lorazepam (Lorazepam 1 Mg Tablet) 1 mg PO DAILY PRN PRN Reason: Anxiety Magnesium Hydroxide (Milk Of Magnesia 30 Ml Oral.Susp) 30 ml PO DAILY PRN PRN Reason: Constipation Pt Own(Lenalidomide (15 Mg)) 15 mg PO DAILY [facility] Last Admin: 08/25/24 09:31 Dose: Not Given Omeprazole (Omeprazole 20 Mg Capsule.) 20 mg PO DAILY@0630 [facility] Last Admin: 08/25/24 06:18 Dose: 20 mg Ondansetron HCl (Ondansetron Odt 4 Mg Tab.Rapdis) 4 mg TRANSLINGU Q4H PRN PRN Reason: Nausea and Vomiting Last Admin: 08/16/24 01:53 Dose: 4 mg Senna (Sennosides 8.6 Mg Tablet) 17.2 mg PO DAILY [facility] Last Admin: 08/25/24 09:32 Dose: 17.2 mg Sertraline HCl (Sertraline Hcl 50 Mg Tablet) 50 mg PO DAILY [facility] Last Admin: 08/25/24 09:32 Dose: 50 mg Vitamin D (Cholecalciferol (Vitamin D3) 25 Mcg Tablet) 50 mcg PO DAILY [facility] Last Admin: 08/25/24 09:32 Dose: 50 mcg Allergies Allergies Allergy/AdvReac Type Severity Reaction Status Date / Time No Known Allergies Allergy Verified 08/05/24 15:00 [No Known Allergies*] Assessment & Plan Assessment & Plan (1) Schizophrenia: Status: Acute Code(s): F20.9 - Schizophrenia, unspecified (2) Dementia: Status: Acute Code(s): F03.90 - Unspecified dementia, unspecified severity, without behavioral disturbance, psychotic disturbance, mood disturbance, and anxiety Plan The patient is an elderly female with a past history of schizophrenia, dementia, multiple myeloma and other medical comorbidities who decompensate with psychotic symptoms in the last days. Historically the patient had worsening of her psychotic and cognitive symptoms whenever she has a UTI. She was assessed in the ER and so far her UA was normal. At the moment of the intake interview she was grossly psychotic unable to provide any information with auditory hallucinations, visual hallucinations and responding to internal stimuli, also very paranoid refused to engage in the conversation. We need to gather more collateral information. Plan 08/22- continue tx. can recheck clozaril/norclozaril level after clozaril titration. 08/23- episode of diarrhea no other sys- continues with dementia and ah- /pI- but doesn't seem particularly concerned with this provider and with cnc mechanic 08/24 denying anything today- unclear what she understands/knows despite cnc mechanic dismissive of all - 08/25 continue tx. Reason for continued inpatient stay Substantial Risk for: inability to function Time Spent With Patient Time: Total time managing care of this patient today ____ minutes.
[2024-08-25 20:00] VITALS: BP 116/68; PULSE 82; RESP 16; TEMP 36.2; O2SAT 95
[2024-08-25] MEDS: cloZAPine 100 MG TABLET 300 MG PO (20:37)
[2024-08-25] MEDS: LORazepam 1 MG TABLET PO (20:38)
[2024-08-25] MEDS: Loratadine 10 MG TABLET PO (20:38)
[2024-08-26] MEDS: Omeprazole 20 MG CAPSULE.DR PO (05:46)
[2024-08-26 07:57] LABS: Neut%MD 49.2 %; Neutrophils Absolute Auto 1.3 x10*3/uL (2.0-8.3); WBCANC 2.7 X10*3/uL
[2024-08-26 08:00] VITALS: BP 132/73; PULSE 85; RESP 17; TEMP 36.3; O2SAT 100
[2024-08-26] MEDS: Sennosides 8.6 MG TABLET 17.2 MG PO (08:42)
[2024-08-26] MEDS: Ferrous Sulfate 324 MG TABLET.DR PO (08:42)
[2024-08-26] MEDS: Aspirin Enteric Coated 81 MG TABLET.DR PO (08:42)
[2024-08-26] MEDS: Cholecalciferol (Vitamin D3) 25 MCG TABLET 50 MCG PO (08:43)
[2024-08-26] MEDS: Sertraline HCL 50 MG TABLET PO (08:43)
[2024-08-26] MEDS: allopurinoL 100 MG TABLET PO (08:43)
[2024-08-26] MEDS: Calcium Carbonate 750 MG TAB.CHEW PO ×3 (08:43→20:49)
[2024-08-26] MEDS: Acyclovir 200 MG CAPSULE 400 MG PO (08:43)
--- NOTE | 2024-08-26 11:39 | P.PNPSI_ITS ---
Subjective Subjective Date of Service: 08/26/24 Reason For Visit: paranoia Subjective Notes: Conditional Voluntary Interim History: The nursing staff reported the patient had been self dialogue in at times pleasant confused slept 8 hours. The manager social responsibility reported that yesterday the granddaughter came and visit her and she was still paranoid. The occupational therapist reported that she looks more disorganized in groups and could not answer single questions. On interview the patient looks pleasantly confused. Denied hallucinations but looks internally preoccupied responding to internal stimuli. Mental Status Exam Mental Status Exam Patient Appearance: Appropriate Patient Orientation: Person and Situation Level of Consciousness: Awake and Appropriate Patient Behavior: Guarded and Passive Mood Description: Withdrawn Affect Description: Constricted Patient Cognition Impaired: Yes Ability to Follow Directions: Good Speech Pattern: Clear Hallucinations: Auditory Delusions: Paranoid Ideation Thought Process: Distracted and Slowed Thinking Thought Content: positive for [place] and positive for Poverty of Content Judgement: Fair Diagnostics Vital Signs (24Hr): Vital Signs - 24 hr 08/25/24 20:00 08/26/24 08:00 Temperature 97.2 F 97.3 F Pulse Rate 82 85 Respiratory Rate 16 17 Blood Pressure 116/68 132/73 Pulse Oximetry 95 100 Oxygen Delivery Method Room Air Room Air BMI result Body Mass Index 28.0 Labs 08/14/24 11:31 08/14/24 11:31 Labs: Laboratory Results - last 48 hr 08/26/24 07:31 Absolute Neuts (auto) 1.3 L Imaging Radiology Impressions: ITS Impressions Chest X-Ray 08/05/24 15:34 IMPRESSION: No active pulmonary disease. Electronically signed by: Derrell Marti MD 08/05/2024 03:58 PM [facility] [place] Medications Medications Current Medications Acetaminophen (Acetaminophen 325 Mg Tablet) 650 mg PO Q6H PRN PRN Reason: Headache/Pain Mild Scale (1-3) Acyclovir (Acyclovir 200 Mg Capsule) 400 mg PO DAILY [facility] Last Admin: 08/26/24 08:43 Dose: 400 mg Al Hydroxide/Mg Hydroxide (Magnesium Hydrox/Alum Hydrox 30 Ml Oral.Susp) 30 ml PO Q6H PRN PRN Reason: Heartburn/Nausea Albuterol Sulfate (Albuterol Sulfate 90 Mcg 8 Gm Inhaler) 2 puff INHALE Q4H PRN PRN Reason: Dyspnea Allopurinol (Allopurinol 100 Mg Tablet) 100 mg PO DAILY [facility] Last Admin: 08/26/24 08:43 Dose: 100 mg Aspirin (Aspirin Enteric Coated 81 Mg Tablet.) 81 mg PO DAILY [facility] Last Admin: 08/26/24 08:42 Dose: 81 mg Calcium Carbonate (Calcium Carbonate 750 Mg Tab.Chew) 750 mg PO TID [facility] Last Admin: 08/26/24 08:43 Dose: 750 mg Clozapine (Clozapine 100 Mg Tablet) 300 mg PO BEDTIME [facility] Last Admin: 08/25/24 20:37 Dose: 300 mg Ferrous Sulfate (Ferrous Sulfate 324 Mg Tablet.) 324 mg PO DAILY [facility] Last Admin: 08/26/24 08:42 Dose: 324 mg Hydroxyzine HCl (Hydroxyzine Hcl 25 Mg Tablet) 25 mg PO Q6H PRN PRN Reason: Anxiety Last Admin: 08/24/24 21:35 Dose: 25 mg Loperamide HCl (Loperamide Hcl 2 Mg Capsule) 2 mg PO DAILY PRN PRN Reason: Diarrhea Last Admin: 08/24/24 14:42 Dose: 2 mg Loratadine (Loratadine 10 Mg Tablet) 10 mg PO BEDTIME [facility] Last Admin: 08/25/24 20:38 Dose: 10 mg Lorazepam (Lorazepam 1 Mg Tablet) 1 mg PO DAILY PRN PRN Reason: Anxiety Last Admin: 08/25/24 20:38 Dose: 1 mg Magnesium Hydroxide (Milk Of Magnesia 30 Ml Oral.Susp) 30 ml PO DAILY PRN PRN Reason: Constipation Pt Own(Lenalidomide (15 Mg)) 15 mg PO DAILY [facility] Last Admin: 08/26/24 08:43 Dose: Not Given Omeprazole (Omeprazole 20 Mg Capsule.) 20 mg PO DAILY@0630 [facility] Last Admin: 08/26/24 05:46 Dose: 20 mg Ondansetron HCl (Ondansetron Odt 4 Mg Tab.Rapdis) 4 mg TRANSLINGU Q4H PRN PRN Reason: Nausea and Vomiting Last Admin: 08/16/24 01:53 Dose: 4 mg Senna (Sennosides 8.6 Mg Tablet) 17.2 mg PO DAILY [facility] Last Admin: 08/26/24 08:42 Dose: 17.2 mg Sertraline HCl (Sertraline Hcl 50 Mg Tablet) 50 mg PO DAILY [facility] Last Admin: 08/26/24 08:43 Dose: 50 mg Vitamin D (Cholecalciferol (Vitamin D3) 25 Mcg Tablet) 50 mcg PO DAILY [facility] Last Admin: 08/26/24 08:43 Dose: 50 mcg Allergies Allergies Allergy/AdvReac Type Severity Reaction Status Date / Time No Known Allergies Allergy Verified 08/05/24 15:00 [No Known Allergies*] Assessment & Plan Assessment & Plan (1) Schizophrenia: Status: Acute Code(s): F20.9 - Schizophrenia, unspecified (2) Dementia: Status: Acute Code(s): F03.90 - Unspecified dementia, unspecified severity, without behavioral disturbance, psychotic disturbance, mood disturbance, and anxiety Plan The patient is an elderly female with a past history of schizophrenia, dementia, multiple myeloma and other medical comorbidities who decompensate with psychotic symptoms in the last days. Historically the patient had worsening of her psychotic and cognitive symptoms whenever she has a UTI. She was assessed in the ER and so far her UA was normal. At the moment of the intake interview she was grossly psychotic unable to provide any information with auditory hallucinations, visual hallucinations and responding to internal stimuli, also very paranoid refused to engage in the conversation. We need to gather more collateral information. Plan 08/22- continue tx. can recheck clozaril/norclozaril level after clozaril titration. 08/23- episode of diarrhea no other sys- continues with dementia and ah- /pI- but doesn't seem particularly concerned with this provider and with physical therapy resident 08/24 denying anything today- unclear what she understands/knows despite physical therapy resident dismissive of all - 08/25 continue tx. 08/26 keep Clozaril 300 mg p.o. q.h.s. and start more Clozaril 25 p.o. b.i.d. Reason for continued inpatient stay Substantial Risk for: inability to function, rapid decompensation and med/psych decompensation Time Spent With Patient Time: Total time managing care of this patient today __20__ minutes.
[2024-08-26] MEDS: cloZAPine 25 MG TABLET 12.5 MG PO (15:56)
[2024-08-26 20:00] VITALS: BP 106/59; PULSE 82; TEMP 37; O2SAT 100
[2024-08-26] MEDS: cloZAPine 100 MG TABLET 300 MG PO (20:49)
[2024-08-26] MEDS: Loratadine 10 MG TABLET PO (20:49)
[2024-08-27] MEDS: Omeprazole 20 MG CAPSULE.DR PO (05:01)
[2024-08-27 08:00] VITALS: BP 115/65; PULSE 84; RESP 16; TEMP 36.2; O2SAT 96
[2024-08-27] MEDS: Ferrous Sulfate 324 MG TABLET.DR PO (08:24)
[2024-08-27] MEDS: Aspirin Enteric Coated 81 MG TABLET.DR PO (08:24)
[2024-08-27] MEDS: Sennosides 8.6 MG TABLET 17.2 MG PO (08:24)
[2024-08-27] MEDS: Cholecalciferol (Vitamin D3) 25 MCG TABLET 50 MCG PO (08:24)
[2024-08-27] MEDS: cloZAPine 25 MG TABLET 12.5 MG PO ×2 (08:24→16:03)
[2024-08-27] MEDS: Acyclovir 200 MG CAPSULE 400 MG PO (08:24)
[2024-08-27] MEDS: allopurinoL 100 MG TABLET PO (08:25)
[2024-08-27] MEDS: Sertraline HCL 50 MG TABLET PO (08:25)
[2024-08-27] MEDS: Calcium Carbonate 750 MG TAB.CHEW PO ×3 (08:25→20:23)
--- NOTE | 2024-08-27 15:05 | HO.PSYCHPN ---
Subjective Subjective Date of Service: 08/27/24 Reason For Visit: paranoia Subjective Notes: Conditional Voluntary Healthcare Proxy: Yes Interim History: The nursing staff reported that the patient has been compliant with treatment, she was seen responding to internal stimuli, redirectable. On interview,, she denied hallucinations but she was talking to herself. No side effects with the increase of Clozaril. Mental Status Exam Mental Status Exam Patient Appearance: Unkempt Patient Orientation: Person and Situation Level of Consciousness: Awake and Appropriate Patient Behavior: Guarded and Passive Mood Description: Withdrawn Affect Description: Blunted Patient Cognition Impaired: Yes Ability to Follow Directions: Good Speech Pattern: Clear Hallucinations: Auditory Delusions: Paranoid Ideation Thought Process: Distracted and Slowed Thinking Thought Content: positive for [place] and positive for Poverty of Content Judgement: Fair Diagnostics Vital Signs (24Hr): Vital Signs - 24 hr 08/26/24 20:00 08/27/24 08:00 Temperature 98.6 F 97.2 F Pulse Rate 82 84 Respiratory Rate 16 Blood Pressure 106/59 L 115/65 Pulse Oximetry 100 96 Oxygen Delivery Method Room Air Room Air BMI result Body Mass Index 28.0 Labs 08/14/24 11:31 08/14/24 11:31 Labs: Laboratory Results - last 48 hr 08/26/24 07:31 Absolute Neuts (auto) 1.3 L Imaging Radiology Impressions: ITS Impressions Chest X-Ray 08/05/24 15:34 IMPRESSION: No active pulmonary disease. Electronically signed by: Derrell Marti MD 08/05/2024 03:58 PM [facility] Medications Medications Current Medications Acetaminophen (Acetaminophen 325 Mg Tablet) 650 mg PO Q6H PRN PRN Reason: Headache/Pain Mild Scale (1-3) Acyclovir (Acyclovir 200 Mg Capsule) 400 mg PO DAILY [facility] Last Admin: 08/27/24 08:24 Dose: 400 mg Al Hydroxide/Mg Hydroxide (Magnesium Hydrox/Alum Hydrox 30 Ml Oral.Susp) 30 ml PO Q6H PRN PRN Reason: Heartburn/Nausea Albuterol Sulfate (Albuterol Sulfate 90 Mcg 8 Gm Inhaler) 2 puff INHALE Q4H PRN PRN Reason: Dyspnea Allopurinol (Allopurinol 100 Mg Tablet) 100 mg PO DAILY [facility] Last Admin: 08/27/24 08:25 Dose: 100 mg Aspirin (Aspirin Enteric Coated 81 Mg Tablet.) 81 mg PO DAILY [facility] Last Admin: 08/27/24 08:24 Dose: 81 mg Calcium Carbonate (Calcium Carbonate 750 Mg Tab.Chew) 750 mg PO TID [facility] Last Admin: 08/27/24 08:25 Dose: 750 mg Clozapine (Clozapine 100 Mg Tablet) 300 mg PO BEDTIME [facility] Last Admin: 08/26/24 20:49 Dose: 300 mg Clozapine (Clozapine 25 Mg Tablet) 12.5 mg PO BID@0800,1500 [facility] Last Admin: 08/27/24 08:24 Dose: 12.5 mg Ferrous Sulfate (Ferrous Sulfate 324 Mg Tablet.) 324 mg PO DAILY [facility] Last Admin: 08/27/24 08:24 Dose: 324 mg Hydroxyzine HCl (Hydroxyzine Hcl 25 Mg Tablet) 25 mg PO Q6H PRN PRN Reason: Anxiety Last Admin: 08/24/24 21:35 Dose: 25 mg Loperamide HCl (Loperamide Hcl 2 Mg Capsule) 2 mg PO DAILY PRN PRN Reason: Diarrhea Last Admin: 08/24/24 14:42 Dose: 2 mg Loratadine (Loratadine 10 Mg Tablet) 10 mg PO BEDTIME [facility] Last Admin: 08/26/24 20:49 Dose: 10 mg Lorazepam (Lorazepam 1 Mg Tablet) 1 mg PO DAILY PRN PRN Reason: Anxiety Last Admin: 08/25/24 20:38 Dose: 1 mg Magnesium Hydroxide (Milk Of Magnesia 30 Ml Oral.Susp) 30 ml PO DAILY PRN PRN Reason: Constipation Pt Own(Lenalidomide (15 Mg)) 15 mg PO DAILY [facility] Last Admin: 08/27/24 08:28 Dose: Not Given Omeprazole (Omeprazole 20 Mg Capsule.) 20 mg PO DAILY@0630 [facility] Last Admin: 08/27/24 05:01 Dose: 20 mg Ondansetron HCl (Ondansetron Odt 4 Mg Tab.Rapdis) 4 mg TRANSLINGU Q4H PRN PRN Reason: Nausea and Vomiting Last Admin: 08/16/24 01:53 Dose: 4 mg Senna (Sennosides 8.6 Mg Tablet) 17.2 mg PO DAILY [facility] Last Admin: 08/27/24 08:24 Dose: 17.2 mg Sertraline HCl (Sertraline Hcl 50 Mg Tablet) 50 mg PO DAILY [facility] Last Admin: 08/27/24 08:25 Dose: 50 mg Vitamin D (Cholecalciferol (Vitamin D3) 25 Mcg Tablet) 50 mcg PO DAILY [facility] Last Admin: 08/27/24 08:24 Dose: 50 mcg Allergies Allergies Allergy/AdvReac Type Severity Reaction Status Date / Time No Known Allergies Allergy Verified 08/05/24 15:00 [No Known Allergies*] Assessment & Plan Assessment & Plan (1) Schizophrenia: Status: Acute Code(s): F20.9 - Schizophrenia, unspecified (2) Dementia: Status: Acute Code(s): F03.90 - Unspecified dementia, unspecified severity, without behavioral disturbance, psychotic disturbance, mood disturbance, and anxiety Plan The patient is an elderly female with a past history of schizophrenia, dementia, multiple myeloma and other medical comorbidities who decompensate with psychotic symptoms in the last days. Historically the patient had worsening of her psychotic and cognitive symptoms whenever she has a UTI. She was assessed in the ER and so far her UA was normal. At the moment of the intake interview she was grossly psychotic unable to provide any information with auditory hallucinations, visual hallucinations and responding to internal stimuli, also very paranoid refused to engage in the conversation. We need to gather more collateral information. Plan 08/22- continue tx. can recheck clozaril/norclozaril level after clozaril titration. 08/23- episode of diarrhea no other sys- continues with dementia and ah- /pI- but doesn't seem particularly concerned with this provider and with homeland security program specialist 08/24 denying anything today- unclear what she understands/knows despite homeland security program specialist dismissive of all - 08/25 continue tx. 08/26 keep Clozaril 300 mg p.o. q.h.s. and start more Clozaril 12.5 p.o. b.i.d. Reason for continued inpatient stay Substantial Risk for: inability to function, rapid decompensation and med/psych decompensation Time Spent With Patient Time: Total time managing care of this patient today __20__ minutes.
[2024-08-27] MEDS: cloZAPine 100 MG TABLET 300 MG PO (20:23)
[2024-08-27] MEDS: Loratadine 10 MG TABLET PO (20:23)
[2024-08-27 21:34] VITALS: BP 100/63; PULSE 86; RESP 16; TEMP 36.8; O2SAT 100
[2024-08-28] MEDS: Omeprazole 20 MG CAPSULE.DR PO (06:03)
[2024-08-28 09:25] VITALS: BP 103/58; PULSE 86; RESP 20; TEMP 36.4; O2SAT 99
[2024-08-28] MEDS: Acyclovir 200 MG CAPSULE 400 MG PO (09:27)
[2024-08-28] MEDS: Sennosides 8.6 MG TABLET 17.2 MG PO (09:27)
[2024-08-28] MEDS: cloZAPine 25 MG TABLET 12.5 MG PO ×2 (09:28→14:52)
[2024-08-28] MEDS: Aspirin Enteric Coated 81 MG TABLET.DR PO (09:29)
[2024-08-28] MEDS: allopurinoL 100 MG TABLET PO (09:29)
[2024-08-28] MEDS: Ferrous Sulfate 324 MG TABLET.DR PO (09:29)
[2024-08-28] MEDS: Sertraline HCL 50 MG TABLET PO (09:29)
[2024-08-28] MEDS: Cholecalciferol (Vitamin D3) 25 MCG TABLET 50 MCG PO (09:30)
[2024-08-28] MEDS: Calcium Carbonate 750 MG TAB.CHEW PO ×3 (09:30→20:32)
--- NOTE | 2024-08-28 13:31 | P.PNPSI_ITS ---
Subjective Subjective Date of Service: 08/28/24 Reason For Visit: paranoia Subjective Notes: Conditional Voluntary Interim History: The nursing staff reported the patient had was seen responding to internal stimuli she has refused to take a shower slept 8 hours. On interview the patient denies new symptoms. Mental Status Exam Mental Status Exam Patient Appearance: Appropriate Patient Orientation: Person and Situation Level of Consciousness: Awake and Appropriate Patient Behavior: Guarded and Passive Mood Description: Withdrawn Affect Description: Constricted Patient Cognition Impaired: Yes Ability to Follow Directions: Good Speech Pattern: Clear Hallucinations: Auditory Delusions: Paranoid Ideation and Ideas of Reference Thought Process: Distracted and Slowed Thinking Thought Content: positive for [place] and positive for Poverty of Content Judgement: Fair Diagnostics Vital Signs (24Hr): Vital Signs - 24 hr 08/27/24 21:34 08/28/24 09:25 Temperature 98.2 F 97.5 F Pulse Rate 86 86 Respiratory Rate 16 20 Blood Pressure 100/63 103/58 L Pulse Oximetry 100 99 Oxygen Delivery Method Room Air Room Air BMI result Body Mass Index 28.0 Labs 08/14/24 11:31 08/14/24 11:31 Imaging Radiology Impressions: ITS Impressions Chest X-Ray 08/05/24 15:34 IMPRESSION: No active pulmonary disease. Electronically signed by: Derrell Marti MD 08/05/2024 03:58 PM [facility] [place] Medications Current Medications Acetaminophen (Acetaminophen 325 Mg Tablet) 650 mg PO Q6H PRN PRN Reason: Headache/Pain Mild Scale (1-3) Acyclovir (Acyclovir 200 Mg Capsule) 400 mg PO DAILY [facility] Last Admin: 08/28/24 09:27 Dose: 400 mg Al Hydroxide/Mg Hydroxide (Magnesium Hydrox/Alum Hydrox 30 Ml Oral.Susp) 30 ml PO Q6H PRN PRN Reason: Heartburn/Nausea Albuterol Sulfate (Albuterol Sulfate 90 Mcg 8 Gm Inhaler) 2 puff INHALE Q4H PRN PRN Reason: Dyspnea Allopurinol (Allopurinol 100 Mg Tablet) 100 mg PO DAILY [facility] Last Admin: 08/28/24 09:29 Dose: 100 mg Aspirin (Aspirin Enteric Coated 81 Mg Tablet.Dr) 81 mg PO DAILY [facility] Last Admin: 08/28/24 09:29 Dose: 81 mg Calcium Carbonate (Calcium Carbonate 750 Mg Tab.Chew) 750 mg PO TID [facility] Last Admin: 08/28/24 09:30 Dose: 750 mg Clozapine (Clozapine 100 Mg Tablet) 300 mg PO BEDTIME [facility] Last Admin: 08/27/24 20:23 Dose: 300 mg Clozapine (Clozapine 25 Mg Tablet) 12.5 mg PO BID@0800,1500 [facility] Last Admin: 08/28/24 09:28 Dose: 12.5 mg Ferrous Sulfate (Ferrous Sulfate 324 Mg Tablet.) 324 mg PO DAILY [facility] Last Admin: 08/28/24 09:29 Dose: 324 mg Hydroxyzine HCl (Hydroxyzine Hcl 25 Mg Tablet) 25 mg PO Q6H PRN PRN Reason: Anxiety Last Admin: 08/24/24 21:35 Dose: 25 mg Loperamide HCl (Loperamide Hcl 2 Mg Capsule) 2 mg PO DAILY PRN PRN Reason: Diarrhea Last Admin: 08/24/24 14:42 Dose: 2 mg Loratadine (Loratadine 10 Mg Tablet) 10 mg PO BEDTIME [facility] Last Admin: 08/27/24 20:23 Dose: 10 mg Lorazepam (Lorazepam 1 Mg Tablet) 1 mg PO DAILY PRN PRN Reason: Anxiety Last Admin: 08/25/24 20:38 Dose: 1 mg Magnesium Hydroxide (Milk Of Magnesia 30 Ml Oral.Susp) 30 ml PO DAILY PRN PRN Reason: Constipation Pt Own(Lenalidomide (15 Mg)) 15 mg PO DAILY [facility] Last Admin: 08/28/24 09:36 Dose: Not Given Omeprazole (Omeprazole 20 Mg Capsule.) 20 mg PO DAILY@0630 [facility] Last Admin: 08/28/24 06:03 Dose: 20 mg Ondansetron HCl (Ondansetron Odt 4 Mg Tab.Rapdis) 4 mg TRANSLINGU Q4H PRN PRN Reason: Nausea and Vomiting Last Admin: 08/16/24 01:53 Dose: 4 mg Senna (Sennosides 8.6 Mg Tablet) 17.2 mg PO DAILY [facility] Last Admin: 08/28/24 09:27 Dose: 17.2 mg Sertraline HCl (Sertraline Hcl 50 Mg Tablet) 50 mg PO DAILY [facility] Last Admin: 08/28/24 09:29 Dose: 50 mg Vitamin D (Cholecalciferol (Vitamin D3) 25 Mcg Tablet) 50 mcg PO DAILY [facility] Last Admin: 08/28/24 09:30 Dose: 50 mcg Allergies Allergies Allergy/AdvReac Type Severity Reaction Status Date / Time No Known Allergies Allergy Verified 08/05/24 15:00 [No Known Allergies*] Assessment & Plan Assessment & Plan (1) Schizophrenia: Status: Acute Code(s): F20.9 - Schizophrenia, unspecified (2) Dementia: Status: Acute Code(s): F03.90 - Unspecified dementia, unspecified severity, without behavioral disturbance, psychotic disturbance, mood disturbance, and anxiety Plan The patient is an elderly female with a past history of schizophrenia, dementia, multiple myeloma and other medical comorbidities who decompensate with psychotic symptoms in the last days. Historically the patient had worsening of her psychotic and cognitive symptoms whenever she has a UTI. She was assessed in the ER and so far her UA was normal. At the moment of the intake interview she was grossly psychotic unable to provide any information with auditory hallucinations, visual hallucinations and responding to internal stimuli, also very paranoid refused to engage in the conversation. We need to gather more collateral information. Plan 08/22- continue tx. can recheck clozaril/norclozaril level after clozaril titration. 08/23- episode of diarrhea no other sys- continues with dementia and ah- /pI- but doesn't seem particularly concerned with this provider and with sap bw architect 08/24 denying anything today- unclear what she understands/knows despite sap bw architect dismissive of all - 08/25 continue tx. 08/26 keep Clozaril 300 mg p.o. q.h.s. and start more Clozaril 12.5 p.o. b.i.d. 08/27 keep same treatment 08/28 keep same treatment Reason for continued inpatient stay Substantial Risk for: inability to function, rapid decompensation and med/psych decompensation Time Spent With Patient Time: Total time managing care of this patient today _20___ minutes.
[2024-08-28 19:39] VITALS: BP 128/76; PULSE 88; TEMP 35.3; O2SAT 100
[2024-08-28] MEDS: cloZAPine 100 MG TABLET 300 MG PO (20:32)
[2024-08-28] MEDS: Loratadine 10 MG TABLET PO (20:32)
[2024-08-28] MEDS: Ondansetron ODT 4 MG TAB.RAPDIS TRANSLINGU (20:33)
[2024-08-29] MEDS: Omeprazole 20 MG CAPSULE.DR PO (05:34)
[2024-08-29 09:09] VITALS: BP 133/74; PULSE 73; RESP 16; TEMP 36.4; O2SAT 100
[2024-08-29] MEDS: Acyclovir 200 MG CAPSULE 400 MG PO (09:10)
[2024-08-29] MEDS: Calcium Carbonate 750 MG TAB.CHEW PO ×3 (09:10→21:10)
[2024-08-29] MEDS: allopurinoL 100 MG TABLET PO (09:11)
[2024-08-29] MEDS: Cholecalciferol (Vitamin D3) 25 MCG TABLET 50 MCG PO (09:11)
[2024-08-29] MEDS: Aspirin Enteric Coated 81 MG TABLET.DR PO (09:11)
[2024-08-29] MEDS: cloZAPine 25 MG TABLET 12.5 MG PO ×2 (09:11→14:32)
[2024-08-29] MEDS: Sertraline HCL 50 MG TABLET PO (09:11)
[2024-08-29] MEDS: Ferrous Sulfate 324 MG TABLET.DR PO (09:11)
--- NOTE | 2024-08-29 13:31 | HO.PSYCHPN ---
Subjective Subjective Date of Service: 08/29/24 Reason For Visit: paranoia Subjective Notes: Conditional Voluntary Interim History: The nursing staff reported the patient had been visible in the unit, with flat affect slept 8 hours compliant with treatment. She reported to the staff that she had been feeling depressed. On interview the patient denies new symptoms she looks internally preoccupied. No major changes in her mental status with increase of Clozaril. Mental Status Exam Mental Status Exam Patient Appearance: Appropriate Patient Orientation: Person and Situation Level of Consciousness: Awake and Appropriate Patient Behavior: Guarded and Passive Mood Description: Withdrawn Affect Description: Blunted Patient Cognition Impaired: Yes Ability to Follow Directions: Good Speech Pattern: Clear Hallucinations: Auditory Delusions: Paranoid Ideation and Ideas of Reference Thought Process: Distracted and Slowed Thinking Thought Content: positive for [place] and positive for Poverty of Content Judgement: Fair Diagnostics Vital Signs (24Hr): Vital Signs - 24 hr 08/28/24 19:39 08/29/24 09:09 Temperature 95.6 F L 97.5 F Pulse Rate 88 73 Respiratory Rate 16 Blood Pressure 128/76 133/74 Pulse Oximetry 100 100 Oxygen Delivery Method Room Air Room Air BMI result Body Mass Index 28.0 Labs 08/14/24 11:31 08/14/24 11:31 Imaging Radiology Impressions: ITS Impressions Chest X-Ray 08/05/24 15:34 IMPRESSION: No active pulmonary disease. Electronically signed by: Derrell Marti MD 08/05/2024 03:58 PM [facility] [place] Medications Current Medications Acetaminophen (Acetaminophen 325 Mg Tablet) 650 mg PO Q6H PRN PRN Reason: Headache/Pain Mild Scale (1-3) Acyclovir (Acyclovir 200 Mg Capsule) 400 mg PO DAILY [facility] Last Admin: 08/29/24 09:10 Dose: 400 mg Al Hydroxide/Mg Hydroxide (Magnesium Hydrox/Alum Hydrox 30 Ml Oral.Susp) 30 ml PO Q6H PRN PRN Reason: Heartburn/Nausea Albuterol Sulfate (Albuterol Sulfate 90 Mcg 8 Gm Inhaler) 2 puff INHALE Q4H PRN PRN Reason: Dyspnea Allopurinol (Allopurinol 100 Mg Tablet) 100 mg PO DAILY [facility] Last Admin: 08/29/24 09:11 Dose: 100 mg Aspirin (Aspirin Enteric Coated 81 Mg Tablet.Dr) 81 mg PO DAILY [facility] Last Admin: 08/29/24 09:11 Dose: 81 mg Calcium Carbonate (Calcium Carbonate 750 Mg Tab.Chew) 750 mg PO TID [facility] Last Admin: 08/29/24 09:10 Dose: 750 mg Clozapine (Clozapine 100 Mg Tablet) 300 mg PO BEDTIME [facility] Last Admin: 08/28/24 20:32 Dose: 300 mg Clozapine (Clozapine 25 Mg Tablet) 12.5 mg PO BID@0800,1500 [facility] Last Admin: 08/29/24 09:11 Dose: 12.5 mg Ferrous Sulfate (Ferrous Sulfate 324 Mg Tablet.Dr) 324 mg PO DAILY [facility] Last Admin: 08/29/24 09:11 Dose: 324 mg Hydroxyzine HCl (Hydroxyzine Hcl 25 Mg Tablet) 25 mg PO Q6H PRN PRN Reason: Anxiety Last Admin: 08/24/24 21:35 Dose: 25 mg Loperamide HCl (Loperamide Hcl 2 Mg Capsule) 2 mg PO DAILY PRN PRN Reason: Diarrhea Last Admin: 08/24/24 14:42 Dose: 2 mg Loratadine (Loratadine 10 Mg Tablet) 10 mg PO BEDTIME [facility] Last Admin: 08/28/24 20:32 Dose: 10 mg Lorazepam (Lorazepam 1 Mg Tablet) 1 mg PO DAILY PRN PRN Reason: Anxiety Last Admin: 08/25/24 20:38 Dose: 1 mg Magnesium Hydroxide (Milk Of Magnesia 30 Ml Oral.Susp) 30 ml PO DAILY PRN PRN Reason: Constipation Pt Own(Lenalidomide (15 Mg)) 15 mg PO DAILY [facility] Last Admin: 08/29/24 12:34 Dose: Not Given Omeprazole (Omeprazole 20 Mg Capsule.Dr) 20 mg PO DAILY@0630 [facility] Last Admin: 08/29/24 05:34 Dose: 20 mg Ondansetron HCl (Ondansetron Odt 4 Mg Tab.Rapdis) 4 mg TRANSLINGU Q4H PRN PRN Reason: Nausea and Vomiting Last Admin: 08/28/24 20:33 Dose: 4 mg Senna (Sennosides 8.6 Mg Tablet) 17.2 mg PO DAILY [facility] Last Admin: 08/29/24 09:14 Dose: Not Given Sertraline HCl (Sertraline Hcl 50 Mg Tablet) 50 mg PO DAILY [facility] Last Admin: 08/29/24 09:11 Dose: 50 mg Vitamin D (Cholecalciferol (Vitamin D3) 25 Mcg Tablet) 50 mcg PO DAILY [facility] Last Admin: 08/29/24 09:11 Dose: 50 mcg Allergies Allergies Allergy/AdvReac Type Severity Reaction Status Date / Time No Known Allergies Allergy Verified 08/05/24 15:00 [No Known Allergies*] Assessment & Plan Assessment & Plan (1) Schizophrenia: Status: Acute Code(s): F20.9 - Schizophrenia, unspecified (2) Dementia: Status: Acute Code(s): F03.90 - Unspecified dementia, unspecified severity, without behavioral disturbance, psychotic disturbance, mood disturbance, and anxiety Plan The patient is an elderly female with a past history of schizophrenia, dementia, multiple myeloma and other medical comorbidities who decompensate with psychotic symptoms in the last days. Historically the patient had worsening of her psychotic and cognitive symptoms whenever she has a UTI. She was assessed in the ER and so far her UA was normal. At the moment of the intake interview she was grossly psychotic unable to provide any information with auditory hallucinations, visual hallucinations and responding to internal stimuli, also very paranoid refused to engage in the conversation. We need to gather more collateral information. Plan 08/22- continue tx. can recheck clozaril/norclozaril level after clozaril titration. 08/23- episode of diarrhea no other sys- continues with dementia and ah- /pI- but doesn't seem particularly concerned with this provider and with microstr[employer] developer 08/24 denying anything today- unclear what she understands/knows despite microstrategy developer dismissive of all - 08/25 continue tx. 08/26 keep Clozaril 300 mg p.o. q.h.s. and start more Clozaril 12.5 p.o. b.i.d. 08/27 keep same treatment 08/28 keep same treatment 08/29 keep same treatment Reason for continued inpatient stay Substantial Risk for: inability to function, rapid decompensation and med/psych decompensation Time Spent With Patient Time: Total time managing care of this patient today __20__ minutes.
[2024-08-29 20:00] VITALS: BP 98/58; PULSE 78; RESP 16; TEMP 36.1; O2SAT 100
[2024-08-29] MEDS: Loratadine 10 MG TABLET PO (21:11)
[2024-08-29] MEDS: cloZAPine 100 MG TABLET 300 MG PO (21:38)
[2024-08-30] MEDS: Omeprazole 20 MG CAPSULE.DR PO (06:23)
[2024-08-30 08:00] VITALS: BP 130/68; PULSE 70; RESP 12; TEMP 36.8; O2SAT 98
[2024-08-30] MEDS: Cholecalciferol (Vitamin D3) 25 MCG TABLET 50 MCG PO (08:39)
[2024-08-30] MEDS: Acyclovir 200 MG CAPSULE 400 MG PO (08:39)
[2024-08-30] MEDS: Sennosides 8.6 MG TABLET 17.2 MG PO (08:40)
[2024-08-30] MEDS: cloZAPine 25 MG TABLET 12.5 MG PO ×2 (08:40→16:42)
[2024-08-30] MEDS: Sertraline HCL 50 MG TABLET PO (08:40)
[2024-08-30] MEDS: allopurinoL 100 MG TABLET PO (08:40)
[2024-08-30] MEDS: Aspirin Enteric Coated 81 MG TABLET.DR PO (08:40)
[2024-08-30] MEDS: Calcium Carbonate 750 MG TAB.CHEW PO ×3 (08:40→19:44)
[2024-08-30] MEDS: Ferrous Sulfate 324 MG TABLET.DR PO (08:40)
--- NOTE | 2024-08-30 11:03 | HO.PSYCHPN ---
Subjective Subjective Date of Service: 08/30/24 Reason For Visit: paranoia Subjective Notes: Conditional Voluntary Interim History: Patient was seen and discussed in rounds today. Records and plans were reviewed. She continues to be withdrawn. Having self dialogue. Eating and sleeping adequately. Vital signs of been stable. No dangerous or behavioral issues. No changes were made today Review of Systems Review of Systems Denies Yes all other systems are reviewed and are negative Mental Status Exam Mental Status Exam Patient Appearance: Appropriate Patient Orientation: Person and Situation Level of Consciousness: Awake and Appropriate Patient Behavior: Guarded and Passive Mood Description: Withdrawn Affect Description: Blunted Patient Cognition Impaired: Yes Ability to Follow Directions: Good Speech Pattern: Clear Hallucinations: Auditory Delusions: Paranoid Ideation and Ideas of Reference Thought Process: Distracted and Slowed Thinking Thought Content: positive for [place] and positive for Poverty of Content Judgement: Fair Diagnostics Vital Signs (24Hr): Vital Signs - 24 hr 08/29/24 20:00 08/30/24 08:00 Temperature 97 F 98.2 F Pulse Rate 78 70 Respiratory Rate 16 12 Blood Pressure 98/58 L 130/68 Pulse Oximetry 100 98 Oxygen Delivery Method Room Air Room Air BMI result Body Mass Index 28.0 Labs 08/14/24 11:31 08/14/24 11:31 Imaging Radiology Impressions: ITS Impressions Chest X-Ray 08/05/24 15:34 IMPRESSION: No active pulmonary disease. Electronically signed by: Derrell Marti MD 08/05/2024 03:58 PM [facility] [place] Medications Medications Current Medications Acetaminophen (Acetaminophen 325 Mg Tablet) 650 mg PO Q6H PRN PRN Reason: Headache/Pain Mild Scale (1-3) Acyclovir (Acyclovir 200 Mg Capsule) 400 mg PO DAILY [facility] Last Admin: 08/30/24 08:39 Dose: 400 mg Al Hydroxide/Mg Hydroxide (Magnesium Hydrox/Alum Hydrox 30 Ml Oral.Susp) 30 ml PO Q6H PRN PRN Reason: Heartburn/Nausea Albuterol Sulfate (Albuterol Sulfate 90 Mcg 8 Gm Inhaler) 2 puff INHALE Q4H PRN PRN Reason: Dyspnea Allopurinol (Allopurinol 100 Mg Tablet) 100 mg PO DAILY [facility] Last Admin: 08/30/24 08:40 Dose: 100 mg Aspirin (Aspirin Enteric Coated 81 Mg Tablet.) 81 mg PO DAILY [facility] Last Admin: 08/30/24 08:40 Dose: 81 mg Calcium Carbonate (Calcium Carbonate 750 Mg Tab.Chew) 750 mg PO TID [facility] Last Admin: 08/30/24 08:40 Dose: 750 mg Clozapine (Clozapine 100 Mg Tablet) 300 mg PO BEDTIME [facility] Last Admin: 08/29/24 21:38 Dose: 300 mg Clozapine (Clozapine 25 Mg Tablet) 12.5 mg PO BID@0800,1500 [facility] Last Admin: 08/30/24 08:40 Dose: 12.5 mg Ferrous Sulfate (Ferrous Sulfate 324 Mg Tablet.) 324 mg PO DAILY [facility] Last Admin: 08/30/24 08:40 Dose: 324 mg Hydroxyzine HCl (Hydroxyzine Hcl 25 Mg Tablet) 25 mg PO Q6H PRN PRN Reason: Anxiety Last Admin: 08/24/24 21:35 Dose: 25 mg Loperamide HCl (Loperamide Hcl 2 Mg Capsule) 2 mg PO DAILY PRN PRN Reason: Diarrhea Last Admin: 08/24/24 14:42 Dose: 2 mg Loratadine (Loratadine 10 Mg Tablet) 10 mg PO BEDTIME [facility] Last Admin: 08/29/24 21:11 Dose: 10 mg Lorazepam (Lorazepam 1 Mg Tablet) 1 mg PO DAILY PRN PRN Reason: Anxiety Last Admin: 08/25/24 20:38 Dose: 1 mg Magnesium Hydroxide (Milk Of Magnesia 30 Ml Oral.Susp) 30 ml PO DAILY PRN PRN Reason: Constipation Pt Own(Lenalidomide (15 Mg)) 15 mg PO DAILY [facility] Last Admin: 08/30/24 08:41 Dose: Not Given Omeprazole (Omeprazole 20 Mg Capsule.) 20 mg PO DAILY@0630 [facility] Last Admin: 08/30/24 06:23 Dose: 20 mg Ondansetron HCl (Ondansetron Odt 4 Mg Tab.Rapdis) 4 mg TRANSLINGU Q4H PRN PRN Reason: Nausea and Vomiting Last Admin: 08/28/24 20:33 Dose: 4 mg Senna (Sennosides 8.6 Mg Tablet) 17.2 mg PO DAILY [facility] Last Admin: 08/30/24 08:40 Dose: 17.2 mg Sertraline HCl (Sertraline Hcl 50 Mg Tablet) 50 mg PO DAILY [facility] Last Admin: 08/30/24 08:40 Dose: 50 mg Vitamin D (Cholecalciferol (Vitamin D3) 25 Mcg Tablet) 50 mcg PO DAILY [facility] Last Admin: 08/30/24 08:39 Dose: 50 mcg Allergies Allergies Allergy/AdvReac Type Severity Reaction Status Date / Time No Known Allergies Allergy Verified 08/05/24 15:00 [No Known Allergies*] Assessment & Plan Assessment & Plan (1) Schizophrenia: Status: Acute Code(s): F20.9 - Schizophrenia, unspecified (2) Dementia: Status: Acute Code(s): F03.90 - Unspecified dementia, unspecified severity, without behavioral disturbance, psychotic disturbance, mood disturbance, and anxiety Plan The patient is an elderly female with a past history of schizophrenia, dementia, multiple myeloma and other medical comorbidities who decompensate with psychotic symptoms in the last days. Historically the patient had worsening of her psychotic and cognitive symptoms whenever she has a UTI. She was assessed in the ER and so far her UA was normal. At the moment of the intake interview she was grossly psychotic unable to provide any information with auditory hallucinations, visual hallucinations and responding to internal stimuli, also very paranoid refused to engage in the conversation. We need to gather more collateral information. Plan 08/22- continue tx. can recheck clozaril/norclozaril level after clozaril titration. 08/23- episode of diarrhea no other sys- continues with dementia and ah- /pI- but doesn't seem particularly concerned with this provider and with design drafter 08/24 denying anything today- unclear what she understands/knows despite design drafter dismissive of all - 08/25 continue tx. 08/26 keep Clozaril 300 mg p.o. q.h.s. and start more Clozaril 12.5 p.o. b.i.d. 08/27 keep same treatment 08/28 keep same treatment 08/29 keep same treatment 08/30 continue current plans and regimen Reason for continued inpatient stay Substantial Risk for: med/psych decompensation Time Spent With Patient Time: Total time managing care of this patient today ____ minutes.
[2024-08-30] MEDS: Loratadine 10 MG TABLET PO (19:44)
[2024-08-30] MEDS: cloZAPine 100 MG TABLET 300 MG PO (19:44)
[2024-08-30 20:00] VITALS: BP 125/75; PULSE 90; RESP 16; TEMP 36.9; O2SAT 100
[2024-08-31] MEDS: Omeprazole 20 MG CAPSULE.DR PO (06:01)
[2024-08-31 07:55] VITALS: BP 120/68; PULSE 94; RESP 16; TEMP 36.8; O2SAT 100
[2024-08-31] MEDS: Acyclovir 200 MG CAPSULE 400 MG PO (09:02)
[2024-08-31] MEDS: Ferrous Sulfate 324 MG TABLET.DR PO (09:03)
[2024-08-31] MEDS: Aspirin Enteric Coated 81 MG TABLET.DR PO (09:03)
[2024-08-31] MEDS: cloZAPine 25 MG TABLET 12.5 MG PO ×2 (09:03→14:57)
[2024-08-31] MEDS: Sertraline HCL 50 MG TABLET PO (09:03)
[2024-08-31] MEDS: Cholecalciferol (Vitamin D3) 25 MCG TABLET 50 MCG PO (09:03)
[2024-08-31] MEDS: Calcium Carbonate 750 MG TAB.CHEW PO ×3 (09:03→20:38)
[2024-08-31] MEDS: allopurinoL 100 MG TABLET PO (09:03)
[2024-08-31] MEDS: Sennosides 8.6 MG TABLET 17.2 MG PO (09:13)
--- NOTE | 2024-08-31 11:04 | P.PNPSI_ITS ---
Subjective Subjective Date of Service: 08/31/24 Reason For Visit: paranoia Subjective Notes: Conditional Voluntary Interim History: I attempted 3 times but she would not wake up. Records and plans were reviewed and discussed in rounds. Eating and sleeping adequately. Has been medication compliant. No dangerous behaviors. No changes were made y Review of Systems Review of Systems Yes Unobtainable due to mental status Mental Status Exam Mental Status Exam Narrative: Could not conduct Diagnostics Vital Signs (24Hr): Vital Signs - 24 hr 08/30/24 20:00 08/31/24 07:55 Temperature 98.4 F 98.2 F Pulse Rate 90 94 Respiratory Rate 16 16 Blood Pressure 125/75 120/68 Pulse Oximetry 100 100 Oxygen Delivery Method Room Air Room Air BMI result Body Mass Index 28.0 Labs 08/14/24 11:31 08/14/24 11:31 Imaging Radiology Impressions: ITS Impressions Chest X-Ray 08/05/24 15:34 IMPRESSION: No active pulmonary disease. Electronically signed by: Derrell Marti MD 08/05/2024 03:58 PM [facility] Medications Medications Current Medications Acetaminophen (Acetaminophen 325 Mg Tablet) 650 mg PO Q6H PRN PRN Reason: Headache/Pain Mild Scale (1-3) Acyclovir (Acyclovir 200 Mg Capsule) 400 mg PO DAILY [facility] Last Admin: 08/31/24 09:02 Dose: 400 mg Al Hydroxide/Mg Hydroxide (Magnesium Hydrox/Alum Hydrox 30 Ml Oral.Susp) 30 ml PO Q6H PRN PRN Reason: Heartburn/Nausea Albuterol Sulfate (Albuterol Sulfate 90 Mcg 8 Gm Inhaler) 2 puff INHALE Q4H PRN PRN Reason: Dyspnea Allopurinol (Allopurinol 100 Mg Tablet) 100 mg PO DAILY [facility] Last Admin: 08/31/24 09:03 Dose: 100 mg Aspirin (Aspirin Enteric Coated 81 Mg Tablet.Dr) 81 mg PO DAILY [facility] Last Admin: 08/31/24 09:03 Dose: 81 mg Calcium Carbonate (Calcium Carbonate 750 Mg Tab.Chew) 750 mg PO TID [facility] Last Admin: 08/31/24 09:03 Dose: 750 mg Clozapine (Clozapine 100 Mg Tablet) 300 mg PO BEDTIME [facility] Last Admin: 08/30/24 19:44 Dose: 300 mg Clozapine (Clozapine 25 Mg Tablet) 12.5 mg PO BID@0800,1500 [facility] Last Admin: 08/31/24 09:03 Dose: 12.5 mg Ferrous Sulfate (Ferrous Sulfate 324 Mg Tablet.) 324 mg PO DAILY [facility] Last Admin: 08/31/24 09:03 Dose: 324 mg Hydroxyzine HCl (Hydroxyzine Hcl 25 Mg Tablet) 25 mg PO Q6H PRN PRN Reason: Anxiety Last Admin: 08/24/24 21:35 Dose: 25 mg Loperamide HCl (Loperamide Hcl 2 Mg Capsule) 2 mg PO DAILY PRN PRN Reason: Diarrhea Last Admin: 08/24/24 14:42 Dose: 2 mg Loratadine (Loratadine 10 Mg Tablet) 10 mg PO BEDTIME [facility] Last Admin: 08/30/24 19:44 Dose: 10 mg Lorazepam (Lorazepam 1 Mg Tablet) 1 mg PO DAILY PRN PRN Reason: Anxiety Last Admin: 08/25/24 20:38 Dose: 1 mg Magnesium Hydroxide (Milk Of Magnesia 30 Ml Oral.Susp) 30 ml PO DAILY PRN PRN Reason: Constipation Pt Own(Lenalidomide (15 Mg)) 15 mg PO DAILY [facility] Last Admin: 08/31/24 09:04 Dose: Not Given Omeprazole (Omeprazole 20 Mg Capsule.) 20 mg PO DAILY@0630 [facility] Last Admin: 08/31/24 06:01 Dose: 20 mg Ondansetron HCl (Ondansetron Odt 4 Mg Tab.Rapdis) 4 mg TRANSLINGU Q4H PRN PRN Reason: Nausea and Vomiting Last Admin: 08/28/24 20:33 Dose: 4 mg Senna (Sennosides 8.6 Mg Tablet) 17.2 mg PO DAILY [facility] Last Admin: 08/31/24 09:13 Dose: 17.2 mg Sertraline HCl (Sertraline Hcl 50 Mg Tablet) 50 mg PO DAILY [facility] Last Admin: 08/31/24 09:03 Dose: 50 mg Vitamin D (Cholecalciferol (Vitamin D3) 25 Mcg Tablet) 50 mcg PO DAILY [facility] Last Admin: 08/31/24 09:03 Dose: 50 mcg Allergies Allergies Allergy/AdvReac Type Severity Reaction Status Date / Time No Known Allergies Allergy Verified 08/05/24 15:00 [No Known Allergies*] Assessment & Plan Assessment & Plan (1) Schizophrenia: Status: Acute Code(s): F20.9 - Schizophrenia, unspecified (2) Dementia: Status: Acute Code(s): F03.90 - Unspecified dementia, unspecified severity, without behavioral disturbance, psychotic disturbance, mood disturbance, and anxiety Plan The patient is an elderly female with a past history of schizophrenia, dementia, multiple myeloma and other medical comorbidities who decompensate with psychotic symptoms in the last days. Historically the patient had worsening of her psychotic and cognitive symptoms whenever she has a UTI. She was assessed in the ER and so far her UA was normal. At the moment of the intake interview she was grossly psychotic unable to provide any information with auditory hallucinations, visual hallucinations and responding to internal stimuli, also very paranoid refused to engage in the conversation. We need to gather more collateral information. Plan 08/22- continue tx. can recheck clozaril/norclozaril level after clozaril titration. 08/23- episode of diarrhea no other sys- continues with dementia and ah- /pI- but doesn't seem particularly concerned with this provider and with lathe machinist 08/24 denying anything today- unclear what she understands/knows despite lathe machinist dismissive of all - 08/25 continue tx. 08/26 keep Clozaril 300 mg p.o. q.h.s. and start more Clozaril 12.5 p.o. b.i.d. 08/27 keep same treatment 08/28 keep same treatment 08/29 keep same treatment 08/30 continue current plans and regimen 08/31: Continue current regimen and plans. Reason for continued inpatient stay Substantial Risk for: inability to function Time Spent With Patient Time: Total time managing care of this patient today ____ minutes.
[2024-08-31 19:25] VITALS: BP 117/62; PULSE 96; RESP 17; TEMP 37.1; O2SAT 99
[2024-08-31] MEDS: Loratadine 10 MG TABLET PO (20:38)
[2024-08-31] MEDS: cloZAPine 100 MG TABLET 300 MG PO (20:38)
[2024-09-01] MEDS: Omeprazole 20 MG CAPSULE.DR PO (06:07)
[2024-09-01 07:45] VITALS: BP 129/69; PULSE 93; RESP 18; TEMP 36.1; O2SAT 99
[2024-09-01] MEDS: Ferrous Sulfate 324 MG TABLET.DR PO (08:37)
[2024-09-01] MEDS: Calcium Carbonate 750 MG TAB.CHEW PO ×3 (08:37→19:57)
[2024-09-01] MEDS: Aspirin Enteric Coated 81 MG TABLET.DR PO (08:37)
[2024-09-01] MEDS: Cholecalciferol (Vitamin D3) 25 MCG TABLET 50 MCG PO (08:37)
[2024-09-01] MEDS: Sertraline HCL 50 MG TABLET PO (08:37)
[2024-09-01] MEDS: Acyclovir 200 MG CAPSULE 400 MG PO (08:37)
[2024-09-01] MEDS: cloZAPine 25 MG TABLET 12.5 MG PO ×2 (08:37→14:23)
[2024-09-01] MEDS: allopurinoL 100 MG TABLET PO (08:37)
--- NOTE | 2024-09-01 12:21 | P.PNPSI_ITS ---
Subjective Subjective Date of Service: 09/01/24 Reason For Visit: paranoia Subjective Notes: Conditional Voluntary Interim History: I attempted 3 times but she would not wake up. Records and plans were reviewed and discussed in rounds. She is observed to have loose stool and I will change the Senokot to p.r.n.. Previously she had been constipated secondary to her medications. Eating and sleeping adequately. She is isolative but comes out for meals. No made Review of Systems Review of Systems Loose stool Yes all other systems are reviewed and are negative Mental Status Exam Mental Status Exam Narrative: Could not conduct Diagnostics Vital Signs (24Hr): Vital Signs - 24 hr 08/31/24 19:25 09/01/24 07:45 Temperature 98.7 F 97.0 F Pulse Rate 96 93 Respiratory Rate 17 18 Blood Pressure 117/62 129/69 Pulse Oximetry 99 99 Oxygen Delivery Method Room Air Room Air BMI result Body Mass Index 28.0 Labs 08/14/24 11:31 08/14/24 11:31 Imaging Radiology Impressions: ITS Impressions Chest X-Ray 08/05/24 15:34 IMPRESSION: No active pulmonary disease. Electronically signed by: Derrell Marti MD 08/05/2024 03:58 PM [facility] [place] Medications Current Medications Acetaminophen (Acetaminophen 325 Mg Tablet) 650 mg PO Q6H PRN PRN Reason: Headache/Pain Mild Scale (1-3) Acyclovir (Acyclovir 200 Mg Capsule) 400 mg PO DAILY [facility] Last Admin: 09/01/24 08:37 Dose: 400 mg Al Hydroxide/Mg Hydroxide (Magnesium Hydrox/Alum Hydrox 30 Ml Oral.Susp) 30 ml PO Q6H PRN PRN Reason: Heartburn/Nausea Albuterol Sulfate (Albuterol Sulfate 90 Mcg 8 Gm Inhaler) 2 puff INHALE Q4H PRN PRN Reason: Dyspnea Allopurinol (Allopurinol 100 Mg Tablet) 100 mg PO DAILY [facility] Last Admin: 09/01/24 08:37 Dose: 100 mg Aspirin (Aspirin Enteric Coated 81 Mg Tablet.Dr) 81 mg PO DAILY [facility] Last Admin: 09/01/24 08:37 Dose: 81 mg Calcium Carbonate (Calcium Carbonate 750 Mg Tab.Chew) 750 mg PO TID [facility] Last Admin: 09/01/24 08:37 Dose: 750 mg Clozapine (Clozapine 100 Mg Tablet) 300 mg PO BEDTIME [facility] Last Admin: 08/31/24 20:38 Dose: 300 mg Clozapine (Clozapine 25 Mg Tablet) 12.5 mg PO BID@0800,1500 [facility] Last Admin: 09/01/24 08:37 Dose: 12.5 mg Ferrous Sulfate (Ferrous Sulfate 324 Mg Tablet.) 324 mg PO DAILY [facility] Last Admin: 09/01/24 08:37 Dose: 324 mg Hydroxyzine HCl (Hydroxyzine Hcl 25 Mg Tablet) 25 mg PO Q6H PRN PRN Reason: Anxiety Last Admin: 08/24/24 21:35 Dose: 25 mg Loperamide HCl (Loperamide Hcl 2 Mg Capsule) 2 mg PO DAILY PRN PRN Reason: Diarrhea Last Admin: 08/24/24 14:42 Dose: 2 mg Loratadine (Loratadine 10 Mg Tablet) 10 mg PO BEDTIME [facility] Last Admin: 08/31/24 20:38 Dose: 10 mg Magnesium Hydroxide (Milk Of Magnesia 30 Ml Oral.Susp) 30 ml PO DAILY PRN PRN Reason: Constipation Pt Own(Lenalidomide (15 Mg)) 15 mg PO DAILY [facility] Last Admin: 09/01/24 08:48 Dose: Not Given Omeprazole (Omeprazole 20 Mg Capsule.) 20 mg PO DAILY@0630 [facility] Last Admin: 09/01/24 06:07 Dose: 20 mg Ondansetron HCl (Ondansetron Odt 4 Mg Tab.Rapdis) 4 mg TRANSLINGU Q4H PRN PRN Reason: Nausea and Vomiting Last Admin: 08/28/24 20:33 Dose: 4 mg Senna (Sennosides 8.6 Mg Tablet) 17.2 mg PO DAILY [facility] Last Admin: 09/01/24 08:48 Dose: Not Given Sertraline HCl (Sertraline Hcl 50 Mg Tablet) 50 mg PO DAILY [facility] Last Admin: 09/01/24 08:37 Dose: 50 mg Vitamin D (Cholecalciferol (Vitamin D3) 25 Mcg Tablet) 50 mcg PO DAILY [facility] Last Admin: 09/01/24 08:37 Dose: 50 mcg Allergies Allergies Allergy/AdvReac Type Severity Reaction Status Date / Time No Known Allergies Allergy Verified 08/05/24 15:00 [No Known Allergies*] Assessment & Plan Assessment & Plan (1) Schizophrenia: Status: Acute Code(s): F20.9 - Schizophrenia, unspecified (2) Dementia: Status: Acute Code(s): F03.90 - Unspecified dementia, unspecified severity, without behavioral disturbance, psychotic disturbance, mood disturbance, and anxiety Plan The patient is an elderly female with a past history of schizophrenia, dementia, multiple myeloma and other medical comorbidities who decompensate with psychotic symptoms in the last days. Historically the patient had worsening of her psychotic and cognitive symptoms whenever she has a UTI. She was assessed in the ER and so far her UA was normal. At the moment of the intake interview she was grossly psychotic unable to provide any information with auditory hallucinations, visual hallucinations and responding to internal stimuli, also very paranoid refused to engage in the conversation. We need to gather more collateral information. Plan 08/22- continue tx. can recheck clozaril/norclozaril level after clozaril titration. 08/23- episode of diarrhea no other sys- continues with dementia and ah- /pI- but doesn't seem particularly concerned with this provider and with director of institutional giving 08/24 denying anything today- unclear what she understands/knows despite director of institutional giving dismissive of all - 08/25 continue tx. 08/26 keep Clozaril 300 mg p.o. q.h.s. and start more Clozaril 12.5 p.o. b.i.d. 08/27 keep same treatment 08/28 keep same treatment 08/29 keep same treatment 08/30 continue current plans and regimen 08/31: Continue current regimen and plans. 09/01: Continue current regimen and plans. Change Senokot to p.r.n. use Patient educated on: medication risk/benefits Reason for continued inpatient stay Substantial Risk for: med/psych decompensation Time Spent With Patient Time: Total time managing care of this patient today ____ minutes.
[2024-09-01] MEDS: cloZAPine 100 MG TABLET 300 MG PO (19:57)
[2024-09-01] MEDS: Loratadine 10 MG TABLET PO (19:57)
[2024-09-01 20:00] VITALS: BP 98/54; PULSE 83; RESP 15; TEMP 36.9; O2SAT 100
[2024-09-02] MEDS: Omeprazole 20 MG CAPSULE.DR PO (05:38)
[2024-09-02 07:30] LABS: Neut%MD 57.6 %; Neutrophils Absolute Auto 2.2 x10*3/uL (2.0-8.3); WBCANC 3.9 X10*3/uL
[2024-09-02 08:00] VITALS: BP 118/62; PULSE 80; RESP 14; TEMP 36.8; O2SAT 98
[2024-09-02] MEDS: Acyclovir 200 MG CAPSULE 400 MG PO (09:34)
[2024-09-02] MEDS: Sertraline HCL 50 MG TABLET PO (09:34)
[2024-09-02] MEDS: allopurinoL 100 MG TABLET PO (09:34)
[2024-09-02] MEDS: Calcium Carbonate 750 MG TAB.CHEW PO ×3 (09:34→20:04)
[2024-09-02] MEDS: Cholecalciferol (Vitamin D3) 25 MCG TABLET 50 MCG PO (09:34)
[2024-09-02] MEDS: Aspirin Enteric Coated 81 MG TABLET.DR PO (09:34)
[2024-09-02] MEDS: Ferrous Sulfate 324 MG TABLET.DR PO (09:34)
[2024-09-02] MEDS: cloZAPine 25 MG TABLET 12.5 MG PO ×2 (09:39→15:06)
--- NOTE | 2024-09-02 12:03 | P.PNPSI_ITS ---
Subjective Subjective Date of Service: 09/02/24 Reason For Visit: paranoia Subjective Notes: Conditional Voluntary Interim History: The nursing staff reported the patient had been visible in the unit compliant with treatment flat affect. The staff has reported no more diarrhea. On interview the patient denies new symptoms internally preoccupied. Mental Status Exam Mental Status Exam Patient Appearance: Appropriate Patient Orientation: Person and Situation Level of Consciousness: Awake and Appropriate Patient Behavior: Guarded and Passive Mood Description: Withdrawn Affect Description: Constricted Patient Cognition Impaired: Yes Ability to Follow Directions: Good Speech Pattern: Clear Hallucinations: Auditory Delusions: Paranoid Ideation and Ideas of Reference Thought Process: Distracted and Slowed Thinking Thought Content: positive for [place] and positive for Poverty of Content Judgement: Fair Diagnostics Vital Signs (24Hr): Vital Signs - 24 hr 09/01/24 20:00 Temperature 98.5 F Pulse Rate 83 Respiratory Rate 15 Blood Pressure 98/54 L Pulse Oximetry 100 Oxygen Delivery Method Room Air BMI result Body Mass Index 28.0 Labs 08/14/24 11:31 08/14/24 11:31 Labs: Laboratory Results - last 48 hr 09/02/24 07:12 Absolute Neuts (auto) 2.2 Imaging Radiology Impressions: ITS Impressions Chest X-Ray 08/05/24 15:34 IMPRESSION: No active pulmonary disease. Electronically signed by: Derrell Marti MD 08/05/2024 03:58 PM [facility] Medications Current Medications Acetaminophen (Acetaminophen 325 Mg Tablet) 650 mg PO Q6H PRN PRN Reason: Headache/Pain Mild Scale (1-3) Acyclovir (Acyclovir 200 Mg Capsule) 400 mg PO DAILY [facility] Last Admin: 09/02/24 09:34 Dose: 400 mg Al Hydroxide/Mg Hydroxide (Magnesium Hydrox/Alum Hydrox 30 Ml Oral.Susp) 30 ml PO Q6H PRN PRN Reason: Heartburn/Nausea Albuterol Sulfate (Albuterol Sulfate 90 Mcg 8 Gm Inhaler) 2 puff INHALE Q4H PRN PRN Reason: Dyspnea Allopurinol (Allopurinol 100 Mg Tablet) 100 mg PO DAILY [facility] Last Admin: 09/02/24 09:34 Dose: 100 mg Aspirin (Aspirin Enteric Coated 81 Mg Tablet.Dr) 81 mg PO DAILY [facility] Last Admin: 09/02/24 09:34 Dose: 81 mg Calcium Carbonate (Calcium Carbonate 750 Mg Tab.Chew) 750 mg PO TID [facility] Last Admin: 09/02/24 09:34 Dose: 750 mg Clozapine (Clozapine 100 Mg Tablet) 300 mg PO BEDTIME [facility] Last Admin: 09/01/24 19:57 Dose: 300 mg Clozapine (Clozapine 25 Mg Tablet) 12.5 mg PO BID@0800,1500 [facility] Last Admin: 09/02/24 09:39 Dose: 12.5 mg Ferrous Sulfate (Ferrous Sulfate 324 Mg Tablet.) 324 mg PO DAILY [facility] Last Admin: 09/02/24 09:34 Dose: 324 mg Hydroxyzine HCl (Hydroxyzine Hcl 25 Mg Tablet) 25 mg PO Q6H PRN PRN Reason: Anxiety Last Admin: 08/24/24 21:35 Dose: 25 mg Loperamide HCl (Loperamide Hcl 2 Mg Capsule) 2 mg PO DAILY PRN PRN Reason: Diarrhea Last Admin: 08/24/24 14:42 Dose: 2 mg Loratadine (Loratadine 10 Mg Tablet) 10 mg PO BEDTIME [facility] Last Admin: 09/01/24 19:57 Dose: 10 mg Magnesium Hydroxide (Milk Of Magnesia 30 Ml Oral.Susp) 30 ml PO DAILY PRN PRN Reason: Constipation Pt Own(Lenalidomide (15 Mg)) 15 mg PO DAILY [facility] Last Admin: 09/02/24 09:40 Dose: Not Given Omeprazole (Omeprazole 20 Mg Capsule.) 20 mg PO DAILY@0630 [facility] Last Admin: 09/02/24 05:38 Dose: 20 mg Ondansetron HCl (Ondansetron Odt 4 Mg Tab.Rapdis) 4 mg TRANSLINGU Q4H PRN PRN Reason: Nausea and Vomiting Last Admin: 08/28/24 20:33 Dose: 4 mg Senna (Sennosides 8.6 Mg Tablet) 17.2 mg PO DAILY PRN PRN Reason: constipation Sertraline HCl (Sertraline Hcl 50 Mg Tablet) 50 mg PO DAILY [facility] Last Admin: 09/02/24 09:34 Dose: 50 mg Vitamin D (Cholecalciferol (Vitamin D3) 25 Mcg Tablet) 50 mcg PO DAILY [facility] Last Admin: 09/02/24 09:34 Dose: 50 mcg Allergies Allergies Allergy/AdvReac Type Severity Reaction Status Date / Time No Known Allergies Allergy Verified 08/05/24 15:00 [No Known Allergies*] Assessment & Plan Assessment & Plan (1) Schizophrenia: Status: Acute Code(s): F20.9 - Schizophrenia, unspecified (2) Dementia: Status: Acute Code(s): F03.90 - Unspecified dementia, unspecified severity, without behavioral disturbance, psychotic disturbance, mood disturbance, and anxiety Plan The patient is an elderly female with a past history of schizophrenia, dementia, multiple myeloma and other medical comorbidities who decompensate with psychotic symptoms in the last days. Historically the patient had worsening of her psychotic and cognitive symptoms whenever she has a UTI. She was assessed in the ER and so far her UA was normal. At the moment of the intake interview she was grossly psychotic unable to provide any information with auditory hallucinations, visual hallucinations and responding to internal stimuli, also very paranoid refused to engage in the conversation. We need to gather more collateral information. Plan 08/22- continue tx. can recheck clozaril/norclozaril level after clozaril titration. 08/23- episode of diarrhea no other sys- continues with dementia and ah- /pI- but doesn't seem particularly concerned with this provider and with risk management director 08/24 denying anything today- unclear what she understands/knows despite risk management director dismissive of all - 08/25 continue tx. 08/26 keep Clozaril 300 mg p.o. q.h.s. and start more Clozaril 12.5 p.o. b.i.d. 08/27 keep same treatment 08/28 keep same treatment 08/29 keep same treatment 08/30 continue current plans and regimen 08/31: Continue current regimen and plans. 09/01: Continue current regimen and plans. Change Senokot to p.r.n. use 09/02 keep same treatment Reason for continued inpatient stay Substantial Risk for: inability to function, rapid decompensation and med/psych decompensation Time Spent With Patient Time: Total time managing care of this patient today __20__ minutes.
[2024-09-02 20:01] VITALS: BP 113/62; PULSE 81; RESP 16; TEMP 36.2; O2SAT 98
[2024-09-02] MEDS: Loratadine 10 MG TABLET PO (20:04)
[2024-09-02] MEDS: cloZAPine 100 MG TABLET 300 MG PO (20:04)
[2024-09-03] MEDS: Omeprazole 20 MG CAPSULE.DR PO (05:31)
[2024-09-03 08:00] VITALS: BP 157/84; PULSE 90; RESP 20; TEMP 36.6; O2SAT 100
[2024-09-03] MEDS: cloZAPine 25 MG TABLET 12.5 MG PO ×2 (08:23→15:18)
[2024-09-03] MEDS: Cholecalciferol (Vitamin D3) 25 MCG TABLET 50 MCG PO (08:24)
[2024-09-03] MEDS: Acyclovir 200 MG CAPSULE 400 MG PO (08:24)
[2024-09-03] MEDS: Calcium Carbonate 750 MG TAB.CHEW PO ×3 (08:24→20:58)
[2024-09-03] MEDS: Aspirin Enteric Coated 81 MG TABLET.DR PO (08:24)
[2024-09-03] MEDS: allopurinoL 100 MG TABLET PO (08:25)
[2024-09-03] MEDS: Sertraline HCL 50 MG TABLET PO (08:25)
[2024-09-03] MEDS: Ferrous Sulfate 324 MG TABLET.DR PO (08:25)
--- NOTE | 2024-09-03 13:50 | P.PNPSI_ITS ---
Subjective Subjective Date of Service: 09/03/24 Reason For Visit: paranoia Subjective Notes: Conditional Voluntary Interim History: The nursing staff reported the patient has been isolative, slept 7 hours, compliant with treatment. On interview the patient needs internally preoccupied no changes in her mental status denies auditory hallucinations. The case management social worker reported that she had been referred to long-term care. Mental Status Exam Mental Status Exam Patient Appearance: Appropriate and Unkempt Patient Orientation: Person and Situation Level of Consciousness: Awake and Appropriate Patient Behavior: Guarded and Passive Mood Description: Withdrawn Affect Description: Constricted Patient Cognition Impaired: Yes Ability to Follow Directions: Good Speech Pattern: Clear and Impoverished Hallucinations: Auditory Delusions: Paranoid Ideation and Ideas of Reference Thought Process: Distracted and Slowed Thinking Thought Content: positive for [place] and positive for Poverty of Content Judgement: Fair Diagnostics Vital Signs (24Hr): Vital Signs - 24 hr 09/02/24 20:01 09/03/24 08:00 Temperature 97.2 F 97.8 F Pulse Rate 81 90 Respiratory Rate 16 20 Blood Pressure 113/62 157/84 H Pulse Oximetry 98 100 Oxygen Delivery Method Room Air Room Air BMI result Body Mass Index 28.0 Labs 08/14/24 11:31 08/14/24 11:31 Labs: Laboratory Results - last 48 hr 09/02/24 07:12 Absolute Neuts (auto) 2.2 Imaging Radiology Impressions: ITS Impressions Chest X-Ray 08/05/24 15:34 IMPRESSION: No active pulmonary disease. Electronically signed by: Derrell Marti MD 08/05/2024 03:58 PM [facility] Medications Medications Current Medications Acetaminophen (Acetaminophen 325 Mg Tablet) 650 mg PO Q6H PRN PRN Reason: Headache/Pain Mild Scale (1-3) Acyclovir (Acyclovir 200 Mg Capsule) 400 mg PO DAILY [facility] Last Admin: 09/03/24 08:24 Dose: 400 mg Al Hydroxide/Mg Hydroxide (Magnesium Hydrox/Alum Hydrox 30 Ml Oral.Susp) 30 ml PO Q6H PRN PRN Reason: Heartburn/Nausea Albuterol Sulfate (Albuterol Sulfate 90 Mcg 8 Gm Inhaler) 2 puff INHALE Q4H PRN PRN Reason: Dyspnea Allopurinol (Allopurinol 100 Mg Tablet) 100 mg PO DAILY [facility] Last Admin: 09/03/24 08:25 Dose: 100 mg Aspirin (Aspirin Enteric Coated 81 Mg Tablet.) 81 mg PO DAILY [facility] Last Admin: 09/03/24 08:24 Dose: 81 mg Calcium Carbonate (Calcium Carbonate 750 Mg Tab.Chew) 750 mg PO TID [facility] Last Admin: 09/03/24 08:24 Dose: 750 mg Clozapine (Clozapine 100 Mg Tablet) 300 mg PO BEDTIME [facility] Last Admin: 09/02/24 20:04 Dose: 300 mg Clozapine (Clozapine 25 Mg Tablet) 12.5 mg PO BID@0800,1500 [facility] Last Admin: 09/03/24 08:23 Dose: 12.5 mg Ferrous Sulfate (Ferrous Sulfate 324 Mg Tablet.) 324 mg PO DAILY [facility] Last Admin: 09/03/24 08:25 Dose: 324 mg Hydroxyzine HCl (Hydroxyzine Hcl 25 Mg Tablet) 25 mg PO Q6H PRN PRN Reason: Anxiety Last Admin: 08/24/24 21:35 Dose: 25 mg Loperamide HCl (Loperamide Hcl 2 Mg Capsule) 2 mg PO DAILY PRN PRN Reason: Diarrhea Last Admin: 08/24/24 14:42 Dose: 2 mg Loratadine (Loratadine 10 Mg Tablet) 10 mg PO BEDTIME [facility] Last Admin: 09/02/24 20:04 Dose: 10 mg Magnesium Hydroxide (Milk Of Magnesia 30 Ml Oral.Susp) 30 ml PO DAILY PRN PRN Reason: Constipation Pt Own(Lenalidomide (15 Mg)) 15 mg PO DAILY [facility] Last Admin: 09/03/24 09:15 Dose: Not Given Omeprazole (Omeprazole 20 Mg Capsule.) 20 mg PO DAILY@0630 [facility] Last Admin: 09/03/24 05:31 Dose: 20 mg Ondansetron HCl (Ondansetron Odt 4 Mg Tab.Rapdis) 4 mg TRANSLINGU Q4H PRN PRN Reason: Nausea and Vomiting Last Admin: 08/28/24 20:33 Dose: 4 mg Senna (Sennosides 8.6 Mg Tablet) 17.2 mg PO DAILY PRN PRN Reason: constipation Sertraline HCl (Sertraline Hcl 50 Mg Tablet) 50 mg PO DAILY [facility] Last Admin: 09/03/24 08:25 Dose: 50 mg Vitamin D (Cholecalciferol (Vitamin D3) 25 Mcg Tablet) 50 mcg PO DAILY [facility] Last Admin: 09/03/24 08:24 Dose: 50 mcg Allergies Allergies Allergy/AdvReac Type Severity Reaction Status Date / Time No Known Allergies Allergy Verified 08/05/24 15:00 [No Known Allergies*] Assessment & Plan Assessment & Plan (1) Schizophrenia: Status: Acute Code(s): F20.9 - Schizophrenia, unspecified (2) Dementia: Status: Acute Code(s): F03.90 - Unspecified dementia, unspecified severity, without behavioral disturbance, psychotic disturbance, mood disturbance, and anxiety Plan The patient is an elderly female with a past history of schizophrenia, dementia, multiple myeloma and other medical comorbidities who decompensate with psychotic symptoms in the last days. Historically the patient had worsening of her psychotic and cognitive symptoms whenever she has a UTI. She was assessed in the ER and so far her UA was normal. At the moment of the intake interview she was grossly psychotic unable to provide any information with auditory hallucinations, visual hallucinations and responding to internal stimuli, also very paranoid refused to engage in the conversation. We need to gather more collateral information. Plan 08/22- continue tx. can recheck clozaril/norclozaril level after clozaril titration. 08/23- episode of diarrhea no other sys- continues with dementia and ah- /pI- but doesn't seem particularly concerned with this provider and with manager neonatal 08/24 denying anything today- unclear what she understands/knows despite manager neonatal dismissive of all - 08/25 continue tx. 08/26 keep Clozaril 300 mg p.o. q.h.s. and start more Clozaril 12.5 p.o. b.i.d. 08/27 keep same treatment 08/28 keep same treatment 08/29 keep same treatment 08/30 continue current plans and regimen 08/31: Continue current regimen and plans. 09/01: Continue current regimen and plans. Change Senokot to p.r.n. use 09/02 keep same treatment 09/03 keep same treatment Reason for continued inpatient stay Substantial Risk for: inability to function, rapid decompensation and med/psych decompensation Time Spent With Patient Time: Total time managing care of this patient today __20__ minutes.
[2024-09-03 20:00] VITALS: BP 90/56; PULSE 93; RESP 18; TEMP 36.9; O2SAT 100
[2024-09-03] MEDS: cloZAPine 100 MG TABLET 300 MG PO (20:58)
[2024-09-03] MEDS: Loratadine 10 MG TABLET PO (20:58)
[2024-09-04] MEDS: Omeprazole 20 MG CAPSULE.DR PO (06:04)
[2024-09-04 07:55] VITALS: BP 111/68; PULSE 81; RESP 18; TEMP 37; O2SAT 100
[2024-09-04] MEDS: Aspirin Enteric Coated 81 MG TABLET.DR PO (08:44)
[2024-09-04] MEDS: cloZAPine 25 MG TABLET 12.5 MG PO (08:44)
[2024-09-04] MEDS: Ferrous Sulfate 324 MG TABLET.DR PO (08:45)
[2024-09-04] MEDS: Cholecalciferol (Vitamin D3) 25 MCG TABLET 50 MCG PO (08:45)
[2024-09-04] MEDS: allopurinoL 100 MG TABLET PO (08:45)
[2024-09-04] MEDS: Sertraline HCL 50 MG TABLET PO (08:45)
[2024-09-04] MEDS: Calcium Carbonate 750 MG TAB.CHEW PO ×3 (08:45→21:29)
[2024-09-04] MEDS: Acyclovir 200 MG CAPSULE 400 MG PO (08:45)
[2024-09-04] MEDS: cloZAPine 25 MG TABLET PO (15:53)
--- NOTE | 2024-09-04 16:32 | P.PNPSI_ITS ---
Subjective Subjective Date of Service: 09/04/24 Reason For Visit: paranoia Subjective Notes: Conditional Voluntary Interim History: The nursing staff reported the patient has been seclusive most of the time in her room she is only out for meals. She had been seen self dialogue in. On interview the patient denies new symptoms, we are increasing Clozaril to 25 p.o. b.i.d. and 300 p.o. q.h.s. Mental Status Exam Mental Status Exam Patient Appearance: Well Grooomed and Appropriate Patient Orientation: Person and Situation Level of Consciousness: Awake and Appropriate Patient Behavior: Guarded and Passive Mood Description: Withdrawn Affect Description: Blunted Patient Cognition Impaired: Yes Ability to Follow Directions: Good Speech Pattern: Impoverished Hallucinations: Auditory Delusions: Paranoid Ideation and Ideas of Reference Thought Process: Distracted and Slowed Thinking Thought Content: positive for [place] and positive for Poverty of Content Judgement: Poor Diagnostics Vital Signs (24Hr): Vital Signs - 24 hr 09/03/24 20:00 09/04/24 07:55 Temperature 98.4 F 98.6 F Pulse Rate 93 81 Respiratory Rate 18 18 Blood Pressure 90/56 L 111/68 Pulse Oximetry 100 100 Oxygen Delivery Method Room Air Room Air BMI result Body Mass Index 28.0 Labs 08/14/24 11:31 08/14/24 11:31 Imaging Radiology Impressions: ITS Impressions Chest X-Ray 08/05/24 15:34 IMPRESSION: No active pulmonary disease. Electronically signed by: Derrell Marti MD 08/05/2024 03:58 PM [facility] Medications Medications Current Medications Acetaminophen (Acetaminophen 325 Mg Tablet) 650 mg PO Q6H PRN PRN Reason: Headache/Pain Mild Scale (1-3) Acyclovir (Acyclovir 200 Mg Capsule) 400 mg PO DAILY [facility] Last Admin: 09/04/24 08:45 Dose: 400 mg Al Hydroxide/Mg Hydroxide (Magnesium Hydrox/Alum Hydrox 30 Ml Oral.Susp) 30 ml PO Q6H PRN PRN Reason: Heartburn/Nausea Albuterol Sulfate (Albuterol Sulfate 90 Mcg 8 Gm Inhaler) 2 puff INHALE Q4H PRN PRN Reason: Dyspnea Allopurinol (Allopurinol 100 Mg Tablet) 100 mg PO DAILY [facility] Last Admin: 09/04/24 08:45 Dose: 100 mg Aspirin (Aspirin Enteric Coated 81 Mg Tablet.) 81 mg PO DAILY [facility] Last Admin: 09/04/24 08:44 Dose: 81 mg Calcium Carbonate (Calcium Carbonate 750 Mg Tab.Chew) 750 mg PO TID [facility] Last Admin: 09/04/24 15:53 Dose: 750 mg Clozapine (Clozapine 100 Mg Tablet) 300 mg PO BEDTIME [facility] Last Admin: 09/03/24 20:58 Dose: 300 mg Clozapine (Clozapine 25 Mg Tablet) 25 mg PO BID@0800,1500 [facility] Last Admin: 09/04/24 15:53 Dose: 25 mg Ferrous Sulfate (Ferrous Sulfate 324 Mg Tablet.) 324 mg PO DAILY [facility] Last Admin: 09/04/24 08:45 Dose: 324 mg Hydroxyzine HCl (Hydroxyzine Hcl 25 Mg Tablet) 25 mg PO Q6H PRN PRN Reason: Anxiety Last Admin: 08/24/24 21:35 Dose: 25 mg Loperamide HCl (Loperamide Hcl 2 Mg Capsule) 2 mg PO DAILY PRN PRN Reason: Diarrhea Last Admin: 08/24/24 14:42 Dose: 2 mg Loratadine (Loratadine 10 Mg Tablet) 10 mg PO BEDTIME [facility] Last Admin: 09/03/24 20:58 Dose: 10 mg Magnesium Hydroxide (Milk Of Magnesia 30 Ml Oral.Susp) 30 ml PO DAILY PRN PRN Reason: Constipation Pt Own(Lenalidomide (15 Mg)) 15 mg PO DAILY [facility] Last Admin: 09/04/24 08:45 Dose: Not Given Omeprazole (Omeprazole 20 Mg Capsule.) 20 mg PO DAILY@0630 [facility] Last Admin: 09/04/24 06:04 Dose: 20 mg Ondansetron HCl (Ondansetron Odt 4 Mg Tab.Rapdis) 4 mg TRANSLINGU Q4H PRN PRN Reason: Nausea and Vomiting Last Admin: 08/28/24 20:33 Dose: 4 mg Senna (Sennosides 8.6 Mg Tablet) 17.2 mg PO DAILY PRN PRN Reason: constipation Sertraline HCl (Sertraline Hcl 50 Mg Tablet) 50 mg PO DAILY [facility] Last Admin: 09/04/24 08:45 Dose: 50 mg Vitamin D (Cholecalciferol (Vitamin D3) 25 Mcg Tablet) 50 mcg PO DAILY [facility] Last Admin: 09/04/24 08:45 Dose: 50 mcg Allergies Allergies Allergy/AdvReac Type Severity Reaction Status Date / Time No Known Allergies Allergy Verified 08/05/24 15:00 [No Known Allergies*] Assessment & Plan Assessment & Plan (1) Schizophrenia: Status: Acute Code(s): F20.9 - Schizophrenia, unspecified (2) Dementia: Status: Acute Code(s): F03.90 - Unspecified dementia, unspecified severity, without behavioral disturbance, psychotic disturbance, mood disturbance, and anxiety Plan The patient is an elderly female with a past history of schizophrenia, dementia, multiple myeloma and other medical comorbidities who decompensate with psychotic symptoms in the last days. Historically the patient had worsening of her psychotic and cognitive symptoms whenever she has a UTI. She was assessed in the ER and so far her UA was normal. At the moment of the intake interview she was grossly psychotic unable to provide any information with auditory hallucinations, visual hallucinations and responding to internal stimuli, also very paranoid refused to engage in the conversation. We need to gather more collateral information. Plan 08/22- continue tx. can recheck clozaril/norclozaril level after clozaril titration. 08/23- episode of diarrhea no other sys- continues with dementia and ah- /pI- but doesn't seem particularly concerned with this provider and with product support technician 08/24 denying anything today- unclear what she understands/knows despite product support technician dismissive of all - 08/25 continue tx. 08/26 keep Clozaril 300 mg p.o. q.h.s. and start more Clozaril 12.5 p.o. b.i.d. 08/27 keep same treatment 08/28 keep same treatment 08/29 keep same treatment 08/30 continue current plans and regimen 08/31: Continue current regimen and plans. 09/01: Continue current regimen and plans. Change Senokot to p.r.n. use 09/02 keep same treatment 09/03 keep same treatment 09/04 increase Clozaril to 25 p.o. b.i.d. and 300 p.o. q.h.s. Reason for continued inpatient stay Substantial Risk for: inability to function, rapid decompensation and med/psych decompensation Time Spent With Patient Time: Total time managing care of this patient today __20__ minutes.
[2024-09-04 20:00] VITALS: BP 105/57; PULSE 80; RESP 16; TEMP 36.8; O2SAT 100
[2024-09-04] MEDS: cloZAPine 100 MG TABLET 300 MG PO (21:28)
[2024-09-04] MEDS: Loratadine 10 MG TABLET PO (21:29)
[2024-09-05] MEDS: Omeprazole 20 MG CAPSULE.DR PO (06:01)
[2024-09-05 08:23] VITALS: BP 133/74; PULSE 88; RESP 18; TEMP 36.1; O2SAT 95
[2024-09-05] MEDS: Calcium Carbonate 750 MG TAB.CHEW PO ×3 (08:25→19:54)
[2024-09-05] MEDS: Acyclovir 200 MG CAPSULE 400 MG PO (08:25)
[2024-09-05] MEDS: cloZAPine 25 MG TABLET PO ×2 (08:25→15:15)
[2024-09-05] MEDS: Sertraline HCL 50 MG TABLET PO (08:25)
[2024-09-05] MEDS: allopurinoL 100 MG TABLET PO (08:25)
[2024-09-05] MEDS: Ferrous Sulfate 324 MG TABLET.DR PO (08:25)
[2024-09-05] MEDS: Aspirin Enteric Coated 81 MG TABLET.DR PO (08:25)
[2024-09-05] MEDS: Cholecalciferol (Vitamin D3) 25 MCG TABLET 50 MCG PO (08:25)
--- NOTE | 2024-09-05 16:32 | HO.PSYCHPN ---
Subjective Subjective Date of Service: 09/05/24 Reason For Visit: paranoia Subjective Notes: Conditional Voluntary Interim History: The nursing staff reported the patient had been seclusive out of her room only for meals. On interview the patient denies new symptoms. The public health social worker reported that granddaughter is seeking placement. Mental Status Exam Mental Status Exam Patient Appearance: Appropriate Patient Orientation: Person and Situation Level of Consciousness: Awake and Appropriate Patient Behavior: Guarded and Passive Mood Description: Withdrawn Affect Description: Constricted Patient Cognition Impaired: Yes Ability to Follow Directions: Good Speech Pattern: Clear Hallucinations: None Delusions: Paranoid Ideation and Ideas of Reference Thought Process: Distracted and Slowed Thinking Thought Content: positive for [place] and positive for Poverty of Content Judgement: Fair Diagnostics Vital Signs (24Hr): Vital Signs - 24 hr 09/04/24 20:00 09/05/24 08:23 Temperature 98.2 F 96.9 F Pulse Rate 80 88 Respiratory Rate 16 18 Blood Pressure 105/57 L 133/74 Pulse Oximetry 100 95 Oxygen Delivery Method Room Air Room Air BMI result Body Mass Index 28.0 Labs 08/14/24 11:31 08/14/24 11:31 Imaging Radiology Impressions: ITS Impressions Chest X-Ray 08/05/24 15:34 IMPRESSION: No active pulmonary disease. Electronically signed by: Derrell Marti MD 08/05/2024 03:58 PM [facility] Medications Medications Current Medications Acetaminophen (Acetaminophen 325 Mg Tablet) 650 mg PO Q6H PRN PRN Reason: Headache/Pain Mild Scale (1-3) Acyclovir (Acyclovir 200 Mg Capsule) 400 mg PO DAILY [facility] Last Admin: 09/05/24 08:25 Dose: 400 mg Al Hydroxide/Mg Hydroxide (Magnesium Hydrox/Alum Hydrox 30 Ml Oral.Susp) 30 ml PO Q6H PRN PRN Reason: Heartburn/Nausea Albuterol Sulfate (Albuterol Sulfate 90 Mcg 8 Gm Inhaler) 2 puff INHALE Q4H PRN PRN Reason: Dyspnea Allopurinol (Allopurinol 100 Mg Tablet) 100 mg PO DAILY [facility] Last Admin: 09/05/24 08:25 Dose: 100 mg Aspirin (Aspirin Enteric Coated 81 Mg Tablet.Dr) 81 mg PO DAILY [facility] Last Admin: 09/05/24 08:25 Dose: 81 mg Calcium Carbonate (Calcium Carbonate 750 Mg Tab.Chew) 750 mg PO TID [facility] Last Admin: 09/05/24 15:15 Dose: 750 mg Clozapine (Clozapine 100 Mg Tablet) 300 mg PO BEDTIME [facility] Last Admin: 09/04/24 21:28 Dose: 300 mg Clozapine (Clozapine 25 Mg Tablet) 25 mg PO BID@0800,1500 [facility] Last Admin: 09/05/24 15:15 Dose: 25 mg Ferrous Sulfate (Ferrous Sulfate 324 Mg Tablet.) 324 mg PO DAILY [facility] Last Admin: 09/05/24 08:25 Dose: 324 mg Hydroxyzine HCl (Hydroxyzine Hcl 25 Mg Tablet) 25 mg PO Q6H PRN PRN Reason: Anxiety Last Admin: 08/24/24 21:35 Dose: 25 mg Loperamide HCl (Loperamide Hcl 2 Mg Capsule) 2 mg PO DAILY PRN PRN Reason: Diarrhea Last Admin: 08/24/24 14:42 Dose: 2 mg Loratadine (Loratadine 10 Mg Tablet) 10 mg PO BEDTIME [facility] Last Admin: 09/04/24 21:29 Dose: 10 mg Magnesium Hydroxide (Milk Of Magnesia 30 Ml Oral.Susp) 30 ml PO DAILY PRN PRN Reason: Constipation Pt Own(Lenalidomide (15 Mg)) 15 mg PO DAILY [facility] Last Admin: 09/05/24 08:28 Dose: Not Given Omeprazole (Omeprazole 20 Mg Capsule.) 20 mg PO DAILY@0630 [facility] Last Admin: 09/05/24 06:01 Dose: 20 mg Ondansetron HCl (Ondansetron Odt 4 Mg Tab.Rapdis) 4 mg TRANSLINGU Q4H PRN PRN Reason: Nausea and Vomiting Last Admin: 08/28/24 20:33 Dose: 4 mg Senna (Sennosides 8.6 Mg Tablet) 17.2 mg PO DAILY PRN PRN Reason: constipation Sertraline HCl (Sertraline Hcl 50 Mg Tablet) 50 mg PO DAILY [facility] Last Admin: 09/05/24 08:25 Dose: 50 mg Vitamin D (Cholecalciferol (Vitamin D3) 25 Mcg Tablet) 50 mcg PO DAILY [facility] Last Admin: 09/05/24 08:25 Dose: 50 mcg Allergies Allergies Allergy/AdvReac Type Severity Reaction Status Date / Time No Known Allergies Allergy Verified 08/05/24 15:00 [No Known Allergies*] Assessment & Plan Assessment & Plan (1) Schizophrenia: Status: Acute Code(s): F20.9 - Schizophrenia, unspecified (2) Dementia: Status: Acute Code(s): F03.90 - Unspecified dementia, unspecified severity, without behavioral disturbance, psychotic disturbance, mood disturbance, and anxiety Plan The patient is an elderly female with a past history of schizophrenia, dementia, multiple myeloma and other medical comorbidities who decompensate with psychotic symptoms in the last days. Historically the patient had worsening of her psychotic and cognitive symptoms whenever she has a UTI. She was assessed in the ER and so far her UA was normal. At the moment of the intake interview she was grossly psychotic unable to provide any information with auditory hallucinations, visual hallucinations and responding to internal stimuli, also very paranoid refused to engage in the conversation. We need to gather more collateral information. Plan 08/22- continue tx. can recheck clozaril/norclozaril level after clozaril titration. 08/23- episode of diarrhea no other sys- continues with dementia and ah- /pI- but doesn't seem particularly concerned with this provider and with queen producer 08/24 denying anything today- unclear what she understands/knows despite queen producer dismissive of all - 08/25 continue tx. 08/26 keep Clozaril 300 mg p.o. q.h.s. and start more Clozaril 12.5 p.o. b.i.d. 08/27 keep same treatment 08/28 keep same treatment 08/29 keep same treatment 08/30 continue current plans and regimen 08/31: Continue current regimen and plans. 09/01: Continue current regimen and plans. Change Senokot to p.r.n. use 09/02 keep same treatment 09/03 keep same treatment 09/04 increase Clozaril to 25 p.o. b.i.d. and 300 p.o. q.h.s. 09/05 keep same treatment Reason for continued inpatient stay Substantial Risk for: inability to function, rapid decompensation and med/psych decompensation Time Spent With Patient Time: Total time managing care of this patient today __20__ minutes.
[2024-09-05 19:54] VITALS: BP 102/60; PULSE 80; RESP 16; TEMP 36.5; O2SAT 95
[2024-09-05] MEDS: Loratadine 10 MG TABLET PO (19:54)
[2024-09-05] MEDS: cloZAPine 100 MG TABLET 300 MG PO (19:54)
[2024-09-06] MEDS: Omeprazole 20 MG CAPSULE.DR PO (05:39)
[2024-09-06 09:56] VITALS: BP 108/72; PULSE 100; RESP 16; TEMP 36.6; O2SAT 100
[2024-09-06] MEDS: Sertraline HCL 50 MG TABLET PO (09:57)
[2024-09-06] MEDS: Acyclovir 200 MG CAPSULE 400 MG PO (09:58)
[2024-09-06] MEDS: Cholecalciferol (Vitamin D3) 25 MCG TABLET 50 MCG PO (09:58)
[2024-09-06] MEDS: Aspirin Enteric Coated 81 MG TABLET.DR PO (09:58)
[2024-09-06] MEDS: Ferrous Sulfate 324 MG TABLET.DR PO (09:58)
[2024-09-06] MEDS: Calcium Carbonate 750 MG TAB.CHEW PO ×3 (09:58→20:04)
[2024-09-06] MEDS: allopurinoL 100 MG TABLET PO (09:58)
[2024-09-06] MEDS: cloZAPine 25 MG TABLET PO ×2 (09:58→15:17)
--- NOTE | 2024-09-06 12:15 | HO.PSYCHPN ---
Subjective Subjective Date of Service: 09/06/24 Reason For Visit: paranoia Interim History: Patient is mostly in her room. She is observed in her room self dialoguing. She denies any symptoms and denies hallucinations. On interview the patient denies new symptoms. She is not agitated or irritable. The bilingual social worker reported that granddaughter is seeking placement. Review of Systems Review of Systems Loose stool Yes all other systems are reviewed and are negative and Unobtainable due to mental status Mental Status Exam Mental Status Exam Narrative: Could not conduct Patient Appearance: Appropriate Patient Orientation: Person and Situation Level of Consciousness: Awake and Appropriate Patient Behavior: Guarded and Passive Mood Description: Withdrawn Affect Description: Constricted Patient Cognition Impaired: Yes Ability to Follow Directions: Good Speech Pattern: Clear Diagnostics Vital Signs (24Hr): Vital Signs - 24 hr 09/05/24 19:54 09/06/24 09:56 Temperature 97.7 F 97.9 F Pulse Rate 80 100 Respiratory Rate 16 16 Blood Pressure 102/60 108/72 Pulse Oximetry 95 100 Oxygen Delivery Method Room Air Room Air BMI result Body Mass Index 28.0 Labs 08/14/24 11:31 08/14/24 11:31 Imaging Radiology Impressions: ITS Impressions Chest X-Ray 08/05/24 15:34 IMPRESSION: No active pulmonary disease. Electronically signed by: Derrell Marti MD 08/05/2024 03:58 PM [facility] - [place], [place] Medications Medications Current Medications Acetaminophen (Acetaminophen 325 Mg Tablet) 650 mg PO Q6H PRN PRN Reason: Headache/Pain Mild Scale (1-3) Acyclovir (Acyclovir 200 Mg Capsule) 400 mg PO DAILY [facility] Last Admin: 09/06/24 09:58 Dose: 400 mg Al Hydroxide/Mg Hydroxide (Magnesium Hydrox/Alum Hydrox 30 Ml Oral.Susp) 30 ml PO Q6H PRN PRN Reason: Heartburn/Nausea Albuterol Sulfate (Albuterol Sulfate 90 Mcg 8 Gm Inhaler) 2 puff INHALE Q4H PRN PRN Reason: Dyspnea Allopurinol (Allopurinol 100 Mg Tablet) 100 mg PO DAILY [facility] Last Admin: 09/06/24 09:58 Dose: 100 mg Aspirin (Aspirin Enteric Coated 81 Mg Tablet.) 81 mg PO DAILY [facility] Last Admin: 09/06/24 09:58 Dose: 81 mg Calcium Carbonate (Calcium Carbonate 750 Mg Tab.Chew) 750 mg PO TID [facility] Last Admin: 09/06/24 09:58 Dose: 750 mg Clozapine (Clozapine 100 Mg Tablet) 300 mg PO BEDTIME [facility] Last Admin: 09/05/24 19:54 Dose: 300 mg Clozapine (Clozapine 25 Mg Tablet) 25 mg PO BID@0800,1500 [facility] Last Admin: 09/06/24 09:58 Dose: 25 mg Ferrous Sulfate (Ferrous Sulfate 324 Mg Tablet.) 324 mg PO DAILY [facility] Last Admin: 09/06/24 09:58 Dose: 324 mg Hydroxyzine HCl (Hydroxyzine Hcl 25 Mg Tablet) 25 mg PO Q6H PRN PRN Reason: Anxiety Last Admin: 08/24/24 21:35 Dose: 25 mg Loperamide HCl (Loperamide Hcl 2 Mg Capsule) 2 mg PO DAILY PRN PRN Reason: Diarrhea Last Admin: 08/24/24 14:42 Dose: 2 mg Loratadine (Loratadine 10 Mg Tablet) 10 mg PO BEDTIME [facility] Last Admin: 09/05/24 19:54 Dose: 10 mg Magnesium Hydroxide (Milk Of Magnesia 30 Ml Oral.Susp) 30 ml PO DAILY PRN PRN Reason: Constipation Pt Own(Lenalidomide (15 Mg)) 15 mg PO DAILY [facility] Last Admin: 09/06/24 10:03 Dose: Not Given Omeprazole (Omeprazole 20 Mg Capsule.) 20 mg PO DAILY@0630 [facility] Last Admin: 09/06/24 05:39 Dose: 20 mg Ondansetron HCl (Ondansetron Odt 4 Mg Tab.Rapdis) 4 mg TRANSLINGU Q4H PRN PRN Reason: Nausea and Vomiting Last Admin: 08/28/24 20:33 Dose: 4 mg Senna (Sennosides 8.6 Mg Tablet) 17.2 mg PO DAILY PRN PRN Reason: constipation Sertraline HCl (Sertraline Hcl 50 Mg Tablet) 50 mg PO DAILY [facility] Last Admin: 09/06/24 09:57 Dose: 50 mg Vitamin D (Cholecalciferol (Vitamin D3) 25 Mcg Tablet) 50 mcg PO DAILY [facility] Last Admin: 09/06/24 09:58 Dose: 50 mcg Allergies Allergies Allergy/AdvReac Type Severity Reaction Status Date / Time No Known Allergies Allergy Verified 08/05/24 15:00 [No Known Allergies*] Assessment & Plan Assessment & Plan (1) Schizophrenia: Status: Acute Code(s): F20.9 - Schizophrenia, unspecified (2) Dementia: Status: Acute Code(s): F03.90 - Unspecified dementia, unspecified severity, without behavioral disturbance, psychotic disturbance, mood disturbance, and anxiety Plan The patient is an elderly female with a past history of schizophrenia, dementia, multiple myeloma and other medical comorbidities who decompensate with psychotic symptoms in the last days. Historically the patient had worsening of her psychotic and cognitive symptoms whenever she has a UTI. She was assessed in the ER and so far her UA was normal. At the moment of the intake interview she was grossly psychotic unable to provide any information with auditory hallucinations, visual hallucinations and responding to internal stimuli, also very paranoid refused to engage in the conversation. We need to gather more collateral information. Plan 08/22- continue tx. can recheck clozaril/norclozaril level after clozaril titration. 08/23- episode of diarrhea no other sys- continues with dementia and ah- /pI- but doesn't seem particularly concerned with this provider and with broadcast checker 08/24 denying anything today- unclear what she understands/knows despite broadcast checker dismissive of all - 08/25 continue tx. 08/26 keep Clozaril 300 mg p.o. q.h.s. and start more Clozaril 12.5 p.o. b.i.d. 08/27 keep same treatment 08/28 keep same treatment 08/29 keep same treatment 08/30 continue current plans and regimen 08/31: Continue current regimen and plans. 09/01: Continue current regimen and plans. Change Senokot to p.r.n. use 09/02 keep same treatment 09/03 keep same treatment 09/04 increase Clozaril to 25 p.o. b.i.d. and 300 p.o. q.h.s. 09/05 keep same treatment 09/06: Continue current management and treatment plan. Reason for continued inpatient stay Substantial Risk for: inability to function and rapid decompensation Time Spent With Patient Time: Total time managing care of this patient today ____ minutes.
[2024-09-06 20:02] VITALS: BP 99/62; PULSE 78; RESP 15; TEMP 36.2; O2SAT 100
[2024-09-06] MEDS: Loratadine 10 MG TABLET PO (20:04)
[2024-09-06] MEDS: cloZAPine 100 MG TABLET 300 MG PO (20:04)
[2024-09-07] MEDS: Omeprazole 20 MG CAPSULE.DR PO (05:32)
[2024-09-07 07:54] VITALS: BP 114/59; PULSE 78; RESP 18; TEMP 36.8; O2SAT 100
[2024-09-07] MEDS: Calcium Carbonate 750 MG TAB.CHEW PO ×3 (08:07→19:51)
[2024-09-07] MEDS: Cholecalciferol (Vitamin D3) 25 MCG TABLET 50 MCG PO (08:07)
[2024-09-07] MEDS: Sertraline HCL 50 MG TABLET PO (08:07)
[2024-09-07] MEDS: cloZAPine 25 MG TABLET PO ×2 (08:07→14:18)
[2024-09-07] MEDS: Aspirin Enteric Coated 81 MG TABLET.DR PO (08:07)
[2024-09-07] MEDS: allopurinoL 100 MG TABLET PO (08:07)
[2024-09-07] MEDS: Acyclovir 200 MG CAPSULE 400 MG PO (08:07)
[2024-09-07] MEDS: Ferrous Sulfate 324 MG TABLET.DR PO (08:07)
--- NOTE | 2024-09-07 11:13 | P.PNPSI_ITS ---
Subjective Subjective Date of Service: 09/07/24 Reason For Visit: paranoia Interim History: Patient is mostly in her room. She is observed in her room self dialoguing. She isolates in her room except for meals. She is disheveled. On interview the patient denies new symptoms and denies hallucinations. She is not agitated or irritable. Denies SI/HI Review of Systems Review of Systems Loose stool Yes all other systems are reviewed and are negative and Unobtainable due to mental status Mental Status Exam Mental Status Exam Narrative: Could not conduct Patient Appearance: Appropriate Patient Orientation: Person and Situation Level of Consciousness: Awake and Appropriate Patient Behavior: Guarded and Passive Mood Description: Withdrawn Affect Description: Constricted Patient Cognition Impaired: Yes Ability to Follow Directions: Good Speech Pattern: Clear Diagnostics Vital Signs (24Hr): Vital Signs - 24 hr 09/06/24 20:02 09/07/24 07:54 Temperature 97.2 F 98.2 F Pulse Rate 78 78 Respiratory Rate 15 18 Blood Pressure 99/62 114/59 L Pulse Oximetry 100 100 Oxygen Delivery Method Room Air Room Air BMI result Body Mass Index 28.0 Labs 08/14/24 11:31 08/14/24 11:31 Imaging Radiology Impressions: ITS Impressions Chest X-Ray 08/05/24 15:34 IMPRESSION: No active pulmonary disease. Electronically signed by: Derrell Marti MD 08/05/2024 03:58 PM [facility] - [place] Medications Medications Current Medications Acetaminophen (Acetaminophen 325 Mg Tablet) 650 mg PO Q6H PRN PRN Reason: Headache/Pain Mild Scale (1-3) Acyclovir (Acyclovir 200 Mg Capsule) 400 mg PO DAILY [facility] Last Admin: 09/07/24 08:07 Dose: 400 mg Al Hydroxide/Mg Hydroxide (Magnesium Hydrox/Alum Hydrox 30 Ml Oral.Susp) 30 ml PO Q6H PRN PRN Reason: Heartburn/Nausea Albuterol Sulfate (Albuterol Sulfate 90 Mcg 8 Gm Inhaler) 2 puff INHALE Q4H PRN PRN Reason: Dyspnea Allopurinol (Allopurinol 100 Mg Tablet) 100 mg PO DAILY [facility] Last Admin: 09/07/24 08:07 Dose: 100 mg Aspirin (Aspirin Enteric Coated 81 Mg Tablet.) 81 mg PO DAILY [facility] Last Admin: 09/07/24 08:07 Dose: 81 mg Calcium Carbonate (Calcium Carbonate 750 Mg Tab.Chew) 750 mg PO TID [facility] Last Admin: 09/07/24 08:07 Dose: 750 mg Clozapine (Clozapine 100 Mg Tablet) 300 mg PO BEDTIME [facility] Last Admin: 09/06/24 20:04 Dose: 300 mg Clozapine (Clozapine 25 Mg Tablet) 25 mg PO BID@0800,1500 [facility] Last Admin: 09/07/24 08:07 Dose: 25 mg Ferrous Sulfate (Ferrous Sulfate 324 Mg Tablet.) 324 mg PO DAILY [facility] Last Admin: 09/07/24 08:07 Dose: 324 mg Hydroxyzine HCl (Hydroxyzine Hcl 25 Mg Tablet) 25 mg PO Q6H PRN PRN Reason: Anxiety Last Admin: 08/24/24 21:35 Dose: 25 mg Loperamide HCl (Loperamide Hcl 2 Mg Capsule) 2 mg PO DAILY PRN PRN Reason: Diarrhea Last Admin: 08/24/24 14:42 Dose: 2 mg Loratadine (Loratadine 10 Mg Tablet) 10 mg PO BEDTIME [facility] Last Admin: 09/06/24 20:04 Dose: 10 mg Magnesium Hydroxide (Milk Of Magnesia 30 Ml Oral.Susp) 30 ml PO DAILY PRN PRN Reason: Constipation Pt Own(Lenalidomide (15 Mg)) 15 mg PO DAILY [facility] Last Admin: 09/07/24 08:11 Dose: Not Given Omeprazole (Omeprazole 20 Mg Capsule.) 20 mg PO DAILY@0630 [facility] Last Admin: 09/07/24 05:32 Dose: 20 mg Ondansetron HCl (Ondansetron Odt 4 Mg Tab.Rapdis) 4 mg TRANSLINGU Q4H PRN PRN Reason: Nausea and Vomiting Last Admin: 08/28/24 20:33 Dose: 4 mg Senna (Sennosides 8.6 Mg Tablet) 17.2 mg PO DAILY PRN PRN Reason: constipation Sertraline HCl (Sertraline Hcl 50 Mg Tablet) 50 mg PO DAILY [facility] Last Admin: 09/07/24 08:07 Dose: 50 mg Vitamin D (Cholecalciferol (Vitamin D3) 25 Mcg Tablet) 50 mcg PO DAILY [facility] Last Admin: 09/07/24 08:07 Dose: 50 mcg Allergies Allergies Allergy/AdvReac Type Severity Reaction Status Date / Time No Known Allergies Allergy Verified 08/05/24 15:00 [No Known Allergies*] Assessment & Plan Assessment & Plan (1) Schizophrenia: Status: Acute Code(s): F20.9 - Schizophrenia, unspecified (2) Dementia: Status: Acute Code(s): F03.90 - Unspecified dementia, unspecified severity, without behavioral disturbance, psychotic disturbance, mood disturbance, and anxiety Plan The patient is an elderly female with a past history of schizophrenia, dementia, multiple myeloma and other medical comorbidities who decompensate with psychotic symptoms in the last days. Historically the patient had worsening of her psychotic and cognitive symptoms whenever she has a UTI. She was assessed in the ER and so far her UA was normal. At the moment of the intake interview she was grossly psychotic unable to provide any information with auditory hallucinations, visual hallucinations and responding to internal stimuli, also very paranoid refused to engage in the conversation. We need to gather more collateral information. Plan 08/22- continue tx. can recheck clozaril/norclozaril level after clozaril titration. 08/23- episode of diarrhea no other sys- continues with dementia and ah- /pI- but doesn't seem particularly concerned with this provider and with database engineer 08/24 denying anything today- unclear what she understands/knows despite database engineer dismissive of all - 08/25 continue tx. 08/26 keep Clozaril 300 mg p.o. q.h.s. and start more Clozaril 12.5 p.o. b.i.d. 08/27 keep same treatment 08/28 keep same treatment 08/29 keep same treatment 08/30 continue current plans and regimen 08/31: Continue current regimen and plans. 09/01: Continue current regimen and plans. Change Senokot to p.r.n. use 09/02 keep same treatment 09/03 keep same treatment 09/04 increase Clozaril to 25 p.o. b.i.d. and 300 p.o. q.h.s. 09/05 keep same treatment 09/06: Continue current management and treatment plan. 09/07: continue current management and treatment plan. Reason for continued inpatient stay Substantial Risk for: inability to function, rapid decompensation and med/psych decompensation Time Spent With Patient Time: Total time managing care of this patient today ____ minutes.
[2024-09-07] MEDS: cloZAPine 100 MG TABLET 300 MG PO (19:50)
[2024-09-07] MEDS: Loratadine 10 MG TABLET PO (19:51)
[2024-09-07 20:00] VITALS: BP 103/58; PULSE 82; RESP 16; TEMP 35.8; O2SAT 100
[2024-09-08] MEDS: Omeprazole 20 MG CAPSULE.DR PO (05:54)
--- NOTE | 2024-09-08 09:48 | P.PNPSI_ITS ---
Subjective Subjective Date of Service: 09/08/24 Reason For Visit: paranoia Subjective Notes: Conditional Voluntary Interim History: The nursing staff reported the patient has been seclusive, with good appetite. The psych social worker reported that she was referred to several long-term facilities. On interview the patient remains internally preoccupied, no changes in her mental status no evidence of over-sedation with increase of Clozaril. Mental Status Exam Mental Status Exam Patient Appearance: Appropriate and Unkempt Patient Orientation: Person and Situation Level of Consciousness: Awake and Appropriate Patient Behavior: Guarded and Passive Mood Description: Withdrawn Affect Description: Constricted Patient Cognition Impaired: Yes Ability to Follow Directions: Good Speech Pattern: Clear Hallucinations: Auditory Delusions: Paranoid Ideation and Ideas of Reference Thought Process: Distracted and Slowed Thinking Thought Content: positive for [place] and positive for Poverty of Content Judgement: Fair Diagnostics Vital Signs (24Hr): Vital Signs - 24 hr 09/07/24 20:00 Temperature 96.5 F L Pulse Rate 82 Respiratory Rate 16 Blood Pressure 103/58 L Pulse Oximetry 100 Oxygen Delivery Method Room Air BMI result Body Mass Index 28.0 Labs 08/14/24 11:31 08/14/24 11:31 Imaging Radiology Impressions: ITS Impressions Chest X-Ray 08/05/24 15:34 IMPRESSION: No active pulmonary disease. Electronically signed by: Derrell Marti MD 08/05/2024 03:58 PM [facility] - [place] Medications Medications Current Medications Acetaminophen (Acetaminophen 325 Mg Tablet) 650 mg PO Q6H PRN PRN Reason: Headache/Pain Mild Scale (1-3) Acyclovir (Acyclovir 200 Mg Capsule) 400 mg PO DAILY [facility] Last Admin: 09/07/24 08:07 Dose: 400 mg Al Hydroxide/Mg Hydroxide (Magnesium Hydrox/Alum Hydrox 30 Ml Oral.Susp) 30 ml PO Q6H PRN PRN Reason: Heartburn/Nausea Albuterol Sulfate (Albuterol Sulfate 90 Mcg 8 Gm Inhaler) 2 puff INHALE Q4H PRN PRN Reason: Dyspnea Allopurinol (Allopurinol 100 Mg Tablet) 100 mg PO DAILY [facility] Last Admin: 09/07/24 08:07 Dose: 100 mg Aspirin (Aspirin Enteric Coated 81 Mg Tablet.) 81 mg PO DAILY [facility] Last Admin: 09/07/24 08:07 Dose: 81 mg Calcium Carbonate (Calcium Carbonate 750 Mg Tab.Chew) 750 mg PO TID [facility] Last Admin: 09/07/24 19:51 Dose: 750 mg Clozapine (Clozapine 100 Mg Tablet) 300 mg PO BEDTIME [facility] Last Admin: 09/07/24 19:50 Dose: 300 mg Clozapine (Clozapine 25 Mg Tablet) 25 mg PO BID@0800,1500 [facility] Last Admin: 09/07/24 14:18 Dose: 25 mg Ferrous Sulfate (Ferrous Sulfate 324 Mg Tablet.) 324 mg PO DAILY [facility] Last Admin: 09/07/24 08:07 Dose: 324 mg Hydroxyzine HCl (Hydroxyzine Hcl 25 Mg Tablet) 25 mg PO Q6H PRN PRN Reason: Anxiety Last Admin: 08/24/24 21:35 Dose: 25 mg Loperamide HCl (Loperamide Hcl 2 Mg Capsule) 2 mg PO DAILY PRN PRN Reason: Diarrhea Last Admin: 08/24/24 14:42 Dose: 2 mg Loratadine (Loratadine 10 Mg Tablet) 10 mg PO BEDTIME [facility] Last Admin: 09/07/24 19:51 Dose: 10 mg Magnesium Hydroxide (Milk Of Magnesia 30 Ml Oral.Susp) 30 ml PO DAILY PRN PRN Reason: Constipation Pt Own(Lenalidomide (15 Mg)) 15 mg PO DAILY [facility] Last Admin: 09/07/24 08:11 Dose: Not Given Omeprazole (Omeprazole 20 Mg Capsule.) 20 mg PO DAILY@0630 [facility] Last Admin: 09/08/24 05:54 Dose: 20 mg Ondansetron HCl (Ondansetron Odt 4 Mg Tab.Rapdis) 4 mg TRANSLINGU Q4H PRN PRN Reason: Nausea and Vomiting Last Admin: 08/28/24 20:33 Dose: 4 mg Senna (Sennosides 8.6 Mg Tablet) 17.2 mg PO DAILY PRN PRN Reason: constipation Sertraline HCl (Sertraline Hcl 50 Mg Tablet) 50 mg PO DAILY [facility] Last Admin: 09/07/24 08:07 Dose: 50 mg Vitamin D (Cholecalciferol (Vitamin D3) 25 Mcg Tablet) 50 mcg PO DAILY [facility] Last Admin: 09/07/24 08:07 Dose: 50 mcg Allergies Allergies Allergy/AdvReac Type Severity Reaction Status Date / Time No Known Allergies Allergy Verified 08/05/24 15:00 [No Known Allergies*] Assessment & Plan Assessment & Plan (1) Schizophrenia: Status: Acute Code(s): F20.9 - Schizophrenia, unspecified (2) Dementia: Status: Acute Code(s): F03.90 - Unspecified dementia, unspecified severity, without behavioral disturbance, psychotic disturbance, mood disturbance, and anxiety Plan The patient is an elderly female with a past history of schizophrenia on Clozaril chronically psychotic who was admitted from the community since she was paranoid against her caregivers. Plan 1. Clozaril was been titrated from 200 mg they to 350 mg daily with no evidence of over-sedation or side-effects. We are going to keep it on the same dose. 2. Referral to long-term care since the patient still paranoid against her granddaughter. 3. Continue with medical workout. Reason for continued inpatient stay Substantial Risk for: inability to function, rapid decompensation and med/psych decompensation Time Spent With Patient Time: Total time managing care of this patient today __20__ minutes.
[2024-09-08 09:54] VITALS: BP 137/71; PULSE 85; RESP 15; TEMP 36.9; O2SAT 100
[2024-09-08] MEDS: Cholecalciferol (Vitamin D3) 25 MCG TABLET 50 MCG PO (09:55)
[2024-09-08] MEDS: Acyclovir 200 MG CAPSULE 400 MG PO (09:55)
[2024-09-08] MEDS: Ferrous Sulfate 324 MG TABLET.DR PO (09:55)
[2024-09-08] MEDS: Aspirin Enteric Coated 81 MG TABLET.DR PO (09:55)
[2024-09-08] MEDS: Sertraline HCL 50 MG TABLET PO (09:56)
[2024-09-08] MEDS: allopurinoL 100 MG TABLET PO (09:56)
[2024-09-08] MEDS: cloZAPine 25 MG TABLET PO ×2 (09:56→15:38)
[2024-09-08] MEDS: Calcium Carbonate 750 MG TAB.CHEW PO ×3 (09:56→20:24)
[2024-09-08 20:00] VITALS: BP 105/60; PULSE 75; RESP 16; TEMP 36.4; O2SAT 99
[2024-09-08] MEDS: Loratadine 10 MG TABLET PO (20:24)
[2024-09-08] MEDS: cloZAPine 100 MG TABLET 300 MG PO (20:24)
[2024-09-09] MEDS: Omeprazole 20 MG CAPSULE.DR PO (05:54)
[2024-09-09 08:00] VITALS: BP 134/79; PULSE 93; RESP 18; TEMP 36.7; O2SAT 97
[2024-09-09 08:31] LABS: Neut%MD 55.1 %; Neutrophils Absolute Auto 2.3 x10*3/uL (2.0-8.3); WBCANC 4.1 X10*3/uL
[2024-09-09] MEDS: Aspirin Enteric Coated 81 MG TABLET.DR PO (08:39)
[2024-09-09] MEDS: Calcium Carbonate 750 MG TAB.CHEW PO ×3 (08:39→21:30)
[2024-09-09] MEDS: Ferrous Sulfate 324 MG TABLET.DR PO (08:40)
[2024-09-09] MEDS: allopurinoL 100 MG TABLET PO (08:40)
[2024-09-09] MEDS: Cholecalciferol (Vitamin D3) 25 MCG TABLET 50 MCG PO (08:40)
[2024-09-09] MEDS: cloZAPine 25 MG TABLET PO ×2 (08:41→14:36)
[2024-09-09] MEDS: Sertraline HCL 50 MG TABLET PO (08:41)
[2024-09-09] MEDS: Acyclovir 200 MG CAPSULE 400 MG PO (08:44)
--- NOTE | 2024-09-09 10:26 | HO.PSYCHPN ---
Subjective Subjective Date of Service: 09/09/24 Reason For Visit: paranoia Subjective Notes: Conditional Voluntary Interim History: The nursing staff reported the patient had been compliant with treatment, he had been isolative slept 6 hours. The rn social services reported that she had been referred to several fpc facilities. On interview the patient denies new symptoms. No evidence of responding to internal stimuli. Mental Status Exam Mental Status Exam Patient Appearance: Appropriate Patient Orientation: Person and Situation Level of Consciousness: Awake and Appropriate Patient Behavior: Guarded and Passive Mood Description: Withdrawn Affect Description: Constricted Patient Cognition Impaired: Yes Ability to Follow Directions: Good Speech Pattern: Clear Hallucinations: None Delusions: Not Present Thought Process: Distracted and Slowed Thinking Thought Content: positive for [place] and positive for Poverty of Content Judgement: Poor Diagnostics Vital Signs (24Hr): Vital Signs - 24 hr 09/08/24 20:00 09/09/24 08:00 Temperature 97.5 F 98.1 F Pulse Rate 75 93 Respiratory Rate 16 18 Blood Pressure 105/60 134/79 Pulse Oximetry 99 97 Oxygen Delivery Method Room Air Room Air BMI result Body Mass Index 28.0 Labs 08/14/24 11:31 08/14/24 11:31 Labs: Laboratory Results - last 48 hr 09/09/24 08:24 Absolute Neuts (auto) 2.3 Imaging Radiology Impressions: ITS Impressions Chest X-Ray 08/05/24 15:34 IMPRESSION: No active pulmonary disease. Electronically signed by: Derrell Marti MD 08/05/2024 03:58 [place] [facility] [place] Medic[place] Current Medications Acetaminophen (Acetaminophen 325 Mg Tablet) 650 mg PO Q6H PRN PRN Reason: Headache/Pain Mild Scale (1-3) Acyclovir (Acyclovir 200 Mg Capsule) 400 mg PO DAILY [facility] Last Admin: 09/09/24 08:44 Dose: 400 mg Al Hydroxide/Mg Hydroxide (Magnesium Hydrox/Alum Hydrox 30 Ml Oral.Susp) 30 ml PO Q6H PRN PRN Reason: Heartburn/Nausea Albuterol Sulfate (Albuterol Sulfate 90 Mcg 8 Gm Inhaler) 2 puff INHALE Q4H PRN PRN Reason: Dyspnea Allopurinol (Allopurinol 100 Mg Tablet) 100 mg PO DAILY [facility] Last Admin: 09/09/24 08:40 Dose: 100 mg Aspirin (Aspirin Enteric Coated 81 Mg Tablet.) 81 mg PO DAILY [facility] Last Admin: 09/09/24 08:39 Dose: 81 mg Calcium Carbonate (Calcium Carbonate 750 Mg Tab.Chew) 750 mg PO TID [facility] Last Admin: 09/09/24 08:39 Dose: 750 mg Clozapine (Clozapine 100 Mg Tablet) 300 mg PO BEDTIME [facility] Last Admin: 09/08/24 20:24 Dose: 300 mg Clozapine (Clozapine 25 Mg Tablet) 25 mg PO BID@0800,1500 [facility] Last Admin: 09/09/24 08:41 Dose: 25 mg Ferrous Sulfate (Ferrous Sulfate 324 Mg Tablet.) 324 mg PO DAILY [facility] Last Admin: 09/09/24 08:40 Dose: 324 mg Hydroxyzine HCl (Hydroxyzine Hcl 25 Mg Tablet) 25 mg PO Q6H PRN PRN Reason: Anxiety Last Admin: 08/24/24 21:35 Dose: 25 mg Loperamide HCl (Loperamide Hcl 2 Mg Capsule) 2 mg PO DAILY PRN PRN Reason: Diarrhea Last Admin: 08/24/24 14:42 Dose: 2 mg Loratadine (Loratadine 10 Mg Tablet) 10 mg PO BEDTIME [facility] Last Admin: 09/08/24 20:24 Dose: 10 mg Magnesium Hydroxide (Milk Of Magnesia 30 Ml Oral.Susp) 30 ml PO DAILY PRN PRN Reason: Constipation Pt Own(Lenalidomide (15 Mg)) 15 mg PO DAILY [facility] Last Admin: 09/09/24 08:45 Dose: Not Given Omeprazole (Omeprazole 20 Mg Capsule.) 20 mg PO DAILY@0630 [facility] Last Admin: 09/09/24 05:54 Dose: 20 mg Ondansetron HCl (Ondansetron Odt 4 Mg Tab.Rapdis) 4 mg TRANSLINGU Q4H PRN PRN Reason: Nausea and Vomiting Last Admin: 08/28/24 20:33 Dose: 4 mg Senna (Sennosides 8.6 Mg Tablet) 17.2 mg PO DAILY PRN PRN Reason: constipation Sertraline HCl (Sertraline Hcl 50 Mg Tablet) 50 mg PO DAILY [facility] Last Admin: 09/09/24 08:41 Dose: 50 mg Vitamin D (Cholecalciferol (Vitamin D3) 25 Mcg Tablet) 50 mcg PO DAILY [facility] Last Admin: 09/09/24 08:40 Dose: 50 mcg Allergies Allergies Allergy/AdvReac Type Severity Reaction Status Date / Time No Known Allergies Allergy Verified 08/05/24 15:00 [No Known Allergies*] Assessment & Plan Assessment & Plan (1) Schizophrenia: Status: Acute Code(s): F20.9 - Schizophrenia, unspecified (2) Dementia: Status: Acute Code(s): F03.90 - Unspecified dementia, unspecified severity, without behavioral disturbance, psychotic disturbance, mood disturbance, and anxiety Plan The patient is an elderly female with a past history of schizophrenia on Clozaril chronically psychotic who was admitted from the community since she was paranoid against her caregivers. Plan 1. Clozaril was been titrated from 200 mg they to 350 mg daily with no evidence of over-sedation or side-effects. We are going to keep it on the same dose. 2. Referral to long-term care since the patient still paranoid against her granddaughter. 3. Continue with medical workout. Reason for continued inpatient stay Substantial Risk for: inability to function, rapid decompensation and med/psych decompensation Time Spent With Patient Time: Total time managing care of this patient today __20__ minutes.
[2024-09-09 21:26] VITALS: BP 113/66; PULSE 81; RESP 16; TEMP 36.6; O2SAT 99
[2024-09-09] MEDS: Loratadine 10 MG TABLET PO (21:30)
[2024-09-09] MEDS: cloZAPine 100 MG TABLET 300 MG PO (21:30)
[2024-09-10] MEDS: Omeprazole 20 MG CAPSULE.DR PO (05:29)
[2024-09-10 08:00] VITALS: BP 103/66; PULSE 84; RESP 18; TEMP 36.4; O2SAT 99
[2024-09-10] MEDS: allopurinoL 100 MG TABLET PO (08:27)
[2024-09-10] MEDS: Ferrous Sulfate 324 MG TABLET.DR PO (08:27)
[2024-09-10] MEDS: Cholecalciferol (Vitamin D3) 25 MCG TABLET 50 MCG PO (08:27)
[2024-09-10] MEDS: Calcium Carbonate 750 MG TAB.CHEW PO ×3 (08:27→20:59)
[2024-09-10] MEDS: Sertraline HCL 50 MG TABLET PO (08:27)
[2024-09-10] MEDS: Acyclovir 200 MG CAPSULE 400 MG PO (08:27)
[2024-09-10] MEDS: cloZAPine 25 MG TABLET PO ×2 (08:27→14:32)
[2024-09-10] MEDS: Aspirin Enteric Coated 81 MG TABLET.DR PO (08:27)
--- NOTE | 2024-09-10 12:27 | HO.PSYCHPN ---
Subjective Subjective Date of Service: 09/10/24 Reason For Visit: paranoia Subjective Notes: Conditional Voluntary Interim History: The nursing staff reported no changes in her mental status she remains most of the time on bed out only for meals. The social media marketing manager reported that she had been waiting for [facility] facility referrals. On interview the patient denies new symptoms. Mental Status Exam Mental Status Exam Patient Appearance: Unkempt Patient Orientation: Person and Situation Level of Consciousness: Awake and Appropriate Patient Behavior: Guarded and Passive Mood Description: Withdrawn Affect Description: Blunted Patient Cognition Impaired: Yes Ability to Follow Directions: Good Speech Pattern: Clear Hallucinations: None Delusions: Paranoid Ideation and Ideas of Reference Thought Process: Distracted and Slowed Thinking Thought Content: positive for [place] and positive for Poverty of Content Judgement: Fair Diagnostics Vital Signs (24Hr): Vital Signs - 24 hr 09/09/24 21:26 09/10/24 08:00 Temperature 97.9 F 97.5 F Pulse Rate 81 84 Respiratory Rate 16 18 Blood Pressure 113/66 103/66 Pulse Oximetry 99 99 Oxygen Delivery Method Room Air Room Air BMI result Body Mass Index 28.0 Labs 08/14/24 11:31 08/14/24 11:31 Labs: Laboratory Results - last 48 hr 09/09/24 08:24 Absolute Neuts (auto) 2.3 Imaging Radiology Impressions: ITS Impressions Chest X-Ray 08/05/24 15:34 IMPRESSION: No active pulmonary disease. Electronically signed by: Derrell Marti MD 08/05/2024 03:58 PM [facility] [place] Medications Medications Current Medications Acetaminophen (Acetaminophen 325 Mg Tablet) 650 mg PO Q6H PRN PRN Reason: Headache/Pain Mild Scale (1-3) Acyclovir (Acyclovir 200 Mg Capsule) 400 mg PO DAILY [facility] Last Admin: 09/10/24 08:27 Dose: 400 mg Al Hydroxide/Mg Hydroxide (Magnesium Hydrox/Alum Hydrox 30 Ml Oral.Susp) 30 ml PO Q6H PRN PRN Reason: Heartburn/Nausea Albuterol Sulfate (Albuterol Sulfate 90 Mcg 8 Gm Inhaler) 2 puff INHALE Q4H PRN PRN Reason: Dyspnea Allopurinol (Allopurinol 100 Mg Tablet) 100 mg PO DAILY [facility] Last Admin: 09/10/24 08:27 Dose: 100 mg Aspirin (Aspirin Enteric Coated 81 Mg Tablet.) 81 mg PO DAILY [facility] Last Admin: 09/10/24 08:27 Dose: 81 mg Calcium Carbonate (Calcium Carbonate 750 Mg Tab.Chew) 750 mg PO TID [facility] Last Admin: 09/10/24 08:27 Dose: 750 mg Clozapine (Clozapine 100 Mg Tablet) 300 mg PO BEDTIME [facility] Last Admin: 09/09/24 21:30 Dose: 300 mg Clozapine (Clozapine 25 Mg Tablet) 25 mg PO BID@0800,1500 [facility] Last Admin: 09/10/24 08:27 Dose: 25 mg Ferrous Sulfate (Ferrous Sulfate 324 Mg Tablet.) 324 mg PO DAILY [facility] Last Admin: 09/10/24 08:27 Dose: 324 mg Hydroxyzine HCl (Hydroxyzine Hcl 25 Mg Tablet) 25 mg PO Q6H PRN PRN Reason: Anxiety Last Admin: 08/24/24 21:35 Dose: 25 mg Loperamide HCl (Loperamide Hcl 2 Mg Capsule) 2 mg PO DAILY PRN PRN Reason: Diarrhea Last Admin: 08/24/24 14:42 Dose: 2 mg Loratadine (Loratadine 10 Mg Tablet) 10 mg PO BEDTIME [facility] Last Admin: 09/09/24 21:30 Dose: 10 mg Magnesium Hydroxide (Milk Of Magnesia 30 Ml Oral.Susp) 30 ml PO DAILY PRN PRN Reason: Constipation Pt Own(Lenalidomide (15 Mg)) 15 mg PO DAILY [facility] Last Admin: 09/10/24 08:32 Dose: Not Given Omeprazole (Omeprazole 20 Mg Capsule.) 20 mg PO DAILY@0630 [facility] Last Admin: 09/10/24 05:29 Dose: 20 mg Ondansetron HCl (Ondansetron Odt 4 Mg Tab.Rapdis) 4 mg TRANSLINGU Q4H PRN PRN Reason: Nausea and Vomiting Last Admin: 08/28/24 20:33 Dose: 4 mg Senna (Sennosides 8.6 Mg Tablet) 17.2 mg PO DAILY PRN PRN Reason: constipation Sertraline HCl (Sertraline Hcl 50 Mg Tablet) 50 mg PO DAILY [facility] Last Admin: 09/10/24 08:27 Dose: 50 mg Vitamin D (Cholecalciferol (Vitamin D3) 25 Mcg Tablet) 50 mcg PO DAILY [facility] Last Admin: 09/10/24 08:27 Dose: 50 mcg Allergies Allergies Allergy/AdvReac Type Severity Reaction Status Date / Time No Known Allergies Allergy Verified 08/05/24 15:00 [No Known Allergies*] Assessment & Plan Assessment & Plan (1) Schizophrenia: Status: Acute Code(s): F20.9 - Schizophrenia, unspecified (2) Dementia: Status: Acute Code(s): F03.90 - Unspecified dementia, unspecified severity, without behavioral disturbance, psychotic disturbance, mood disturbance, and anxiety Plan The patient is an elderly female with a past history of schizophrenia on Clozaril chronically psychotic who was admitted from the community since she was paranoid against her caregivers. Plan 1. Clozaril was been titrated from 200 mg they to 350 mg daily with no evidence of over-sedation or side-effects. We are going to keep it on the same dose. 2. Referral to long-term care since the patient still paranoid against her granddaughter. 3. Continue with medical workout. Reason for continued inpatient stay Substantial Risk for: inability to function, rapid decompensation and med/psych decompensation Time Spent With Patient Time: Total time managing care of this patient today __20__ minutes.
[2024-09-10 20:00] VITALS: BP 110/62; PULSE 95; RESP 16; TEMP 36.8; O2SAT 100
[2024-09-10] MEDS: Loratadine 10 MG TABLET PO (20:59)
[2024-09-10] MEDS: cloZAPine 100 MG TABLET 300 MG PO (20:59)
[2024-09-11] MEDS: Omeprazole 20 MG CAPSULE.DR PO (06:19)
[2024-09-11 08:00] VITALS: BP 129/70; PULSE 99; RESP 16; TEMP 36.4; O2SAT 96
[2024-09-11] MEDS: Calcium Carbonate 750 MG TAB.CHEW PO ×3 (08:39→20:51)
[2024-09-11] MEDS: cloZAPine 25 MG TABLET PO ×2 (08:40→15:21)
[2024-09-11] MEDS: Sertraline HCL 50 MG TABLET PO (08:40)
[2024-09-11] MEDS: Cholecalciferol (Vitamin D3) 25 MCG TABLET 50 MCG PO (08:40)
[2024-09-11] MEDS: Aspirin Enteric Coated 81 MG TABLET.DR PO (08:40)
[2024-09-11] MEDS: Acyclovir 200 MG CAPSULE 400 MG PO (08:40)
[2024-09-11] MEDS: allopurinoL 100 MG TABLET PO (08:40)
[2024-09-11] MEDS: Ferrous Sulfate 324 MG TABLET.DR PO (08:40)
--- NOTE | 2024-09-11 11:11 | HO.PSYCHPN ---
Subjective Subjective Date of Service: 09/11/24 Reason For Visit: paranoia Subjective Notes: Conditional Voluntary Interim History: The nursing staff reported the patient had not been going to common areas only for meals, flat affect. She slept 8 hours she had been compliant with treatment. The outreach and education social worker referred her to [facility] and we are waiting for a response. On interview the patient denies new symptoms, internally preoccupied chronically psychotic. Mental Status Exam Mental Status Exam Patient Appearance: Well Grooomed and Appropriate Patient Orientation: Person and Situation Level of Consciousness: Awake and Appropriate Patient Behavior: Guarded and Passive Mood Description: Withdrawn Affect Description: Constricted Patient Cognition Impaired: Yes Ability to Follow Directions: Good Speech Pattern: Clear Hallucinations: None Delusions: Paranoid Ideation and Ideas of Reference Thought Process: Distracted and Slowed Thinking Thought Content: positive for [place] and positive for Poverty of Content Judgement: Fair Diagnostics Vital Signs (24Hr): Vital Signs - 24 hr 09/10/24 20:00 09/11/24 08:00 Temperature 98.2 F 97.5 F Pulse Rate 95 99 Respiratory Rate 16 16 Blood Pressure 110/62 129/70 Pulse Oximetry 100 96 Oxygen Delivery Method Room Air Room Air BMI result Body Mass Index 28.0 Labs 08/14/24 11:31 08/14/24 11:31 Imaging Radiology Impressions: ITS Impressions Chest X-Ray 08/05/24 15:34 IMPRESSION: No active pulmonary disease. Electronically signed by: Derrell Marti MD 08/05/2024 03:58 PM [facility] [place] Medications Medications Current Medications Acetaminophen (Acetaminophen 325 Mg Tablet) 650 mg PO Q6H PRN PRN Reason: Headache/Pain Mild Scale (1-3) Acyclovir (Acyclovir 200 Mg Capsule) 400 mg PO DAILY [facility] Last Admin: 09/11/24 08:40 Dose: 400 mg Al Hydroxide/Mg Hydroxide (Magnesium Hydrox/Alum Hydrox 30 Ml Oral.Susp) 30 ml PO Q6H PRN PRN Reason: Heartburn/Nausea Albuterol Sulfate (Albuterol Sulfate 90 Mcg 8 Gm Inhaler) 2 puff INHALE Q4H PRN PRN Reason: Dyspnea Allopurinol (Allopurinol 100 Mg Tablet) 100 mg PO DAILY [facility] Last Admin: 09/11/24 08:40 Dose: 100 mg Aspirin (Aspirin Enteric Coated 81 Mg Tablet.Dr) 81 mg PO DAILY [facility] Last Admin: 09/11/24 08:40 Dose: 81 mg Calcium Carbonate (Calcium Carbonate 750 Mg Tab.Chew) 750 mg PO TID [facility] Last Admin: 09/11/24 08:39 Dose: 750 mg Clozapine (Clozapine 100 Mg Tablet) 300 mg PO BEDTIME [facility] Last Admin: 09/10/24 20:59 Dose: 300 mg Clozapine (Clozapine 25 Mg Tablet) 25 mg PO BID@0800,1500 [facility] Last Admin: 09/11/24 08:40 Dose: 25 mg Ferrous Sulfate (Ferrous Sulfate 324 Mg Tablet.) 324 mg PO DAILY [facility] Last Admin: 09/11/24 08:40 Dose: 324 mg Hydroxyzine HCl (Hydroxyzine Hcl 25 Mg Tablet) 25 mg PO Q6H PRN PRN Reason: Anxiety Last Admin: 08/24/24 21:35 Dose: 25 mg Loperamide HCl (Loperamide Hcl 2 Mg Capsule) 2 mg PO DAILY PRN PRN Reason: Diarrhea Last Admin: 08/24/24 14:42 Dose: 2 mg Loratadine (Loratadine 10 Mg Tablet) 10 mg PO BEDTIME [facility] Last Admin: 09/10/24 20:59 Dose: 10 mg Magnesium Hydroxide (Milk Of Magnesia 30 Ml Oral.Susp) 30 ml PO DAILY PRN PRN Reason: Constipation Pt Own(Lenalidomide (15 Mg)) 15 mg PO DAILY [facility] Last Admin: 09/10/24 08:32 Dose: Not Given Omeprazole (Omeprazole 20 Mg Capsule.) 20 mg PO DAILY@0630 [facility] Last Admin: 09/11/24 06:19 Dose: 20 mg Ondansetron HCl (Ondansetron Odt 4 Mg Tab.Rapdis) 4 mg TRANSLINGU Q4H PRN PRN Reason: Nausea and Vomiting Last Admin: 08/28/24 20:33 Dose: 4 mg Senna (Sennosides 8.6 Mg Tablet) 17.2 mg PO DAILY PRN PRN Reason: constipation Sertraline HCl (Sertraline Hcl 50 Mg Tablet) 50 mg PO DAILY [facility] Last Admin: 09/11/24 08:40 Dose: 50 mg Vitamin D (Cholecalciferol (Vitamin D3) 25 Mcg Tablet) 50 mcg PO DAILY [facility] Last Admin: 09/11/24 08:40 Dose: 50 mcg Allergies Allergies Allergy/AdvReac Type Severity Reaction Status Date / Time No Known Allergies Allergy Verified 08/05/24 15:00 [No Known Allergies*] Assessment & Plan Assessment & Plan (1) Schizophrenia: Status: Acute Code(s): F20.9 - Schizophrenia, unspecified (2) Dementia: Status: Acute Code(s): F03.90 - Unspecified dementia, unspecified severity, without behavioral disturbance, psychotic disturbance, mood disturbance, and anxiety Plan The patient is an elderly female with a past history of schizophrenia on Clozaril chronically psychotic who was admitted from the community since she was paranoid against her caregivers. Plan 1. Clozaril was been titrated from 200 mg they to 350 mg daily with no evidence of over-sedation or side-effects. We are going to keep it on the same dose. 2. Referral to long-term care since the patient still paranoid against her granddaughter. 3. Continue with medical workout. Reason for continued inpatient stay Substantial Risk for: inability to function, rapid decompensation and med/psych decompensation Time Spent With Patient Time: Total time managing care of this patient today __20__ minutes.
--- NOTE | 2024-09-11 11:50 | PC.NURSE ---
Called the patient's granddaughter regarding Lenalidomide medication. She said she will bring the medication today. Dr Leonard notified.
[2024-09-11 13:29] VITALS: BMI 28.0
--- NOTE | 2024-09-11 15:40 | PC.NURSE ---
Family member brought in Revlimid (Lenalidomide)home medication; to give 15 mg po daily for 15 days then 15 days off. New order to restart the med tomorrow.
[2024-09-11 20:00] VITALS: BP 95/62; PULSE 87; RESP 16; TEMP 36.1; O2SAT 100
[2024-09-11] MEDS: cloZAPine 100 MG TABLET 300 MG PO (20:50)
[2024-09-11] MEDS: Loratadine 10 MG TABLET PO (20:52)
[2024-09-11] MEDS: hydrOXYzine HCL 25 MG TABLET PO (20:52)
[2024-09-12] MEDS: Omeprazole 20 MG CAPSULE.DR PO (05:55)
[2024-09-12 08:00] VITALS: BP 111/67; PULSE 78; RESP 18; TEMP 36; O2SAT 100
[2024-09-12] MEDS: Cholecalciferol (Vitamin D3) 25 MCG TABLET 50 MCG PO (08:27)
[2024-09-12] MEDS: cloZAPine 25 MG TABLET PO ×2 (08:27→14:37)
[2024-09-12] MEDS: Ferrous Sulfate 324 MG TABLET.DR PO (08:27)
[2024-09-12] MEDS: Calcium Carbonate 750 MG TAB.CHEW PO ×3 (08:27→20:44)
[2024-09-12] MEDS: Sertraline HCL 50 MG TABLET PO (08:27)
[2024-09-12] MEDS: Acyclovir 200 MG CAPSULE 400 MG PO (08:28)
[2024-09-12] MEDS: LENALIDOMIDE 15 MG 1 EACH PO (08:28)
[2024-09-12] MEDS: Aspirin Enteric Coated 81 MG TABLET.DR PO (08:28)
[2024-09-12] MEDS: allopurinoL 100 MG TABLET PO (08:28)
--- NOTE | 2024-09-12 15:38 | P.PNPSI_ITS ---
Subjective Subjective Date of Service: 09/12/24 Reason For Visit: paranoia Subjective Notes: Conditional Voluntary Interim History: The nursing staff reported the patient had been isolative in his room pleasant, flat. Slept well compliant with treatment. On interview the patient denies new symptoms looks internally preoccupied. Today the staff of [facility] came and visited the past she refused to engage in the conversation. Most likely we will have to affirmed her healthcare proxy to place her. Mental Status Exam Mental Status Exam Patient Appearance: Appropriate Patient Orientation: Person and Situation Level of Consciousness: Awake and Appropriate Patient Behavior: Guarded and Passive Mood Description: Withdrawn Affect Description: Constricted Patient Cognition Impaired: Yes Ability to Follow Directions: Good Speech Pattern: Clear Hallucinations: Auditory Delusions: Paranoid Ideation Thought Process: Distracted and Slowed Thinking Thought Content: positive for [place] and positive for Poverty of Content Judgement: Poor Diagnostics Vital Signs (24Hr): Vital Signs - 24 hr 09/11/24 20:00 09/12/24 08:00 Temperature 97 F 96.8 F Pulse Rate 87 78 Respiratory Rate 16 18 Blood Pressure 95/62 111/67 Pulse Oximetry 100 100 Oxygen Delivery Method Room Air Room Air BMI result Body Mass Index 28.0 Labs 08/14/24 11:31 08/14/24 11:31 Imaging Radiology Impressions: ITS Impressions Chest X-Ray 08/05/24 15:34 IMPRESSION: No active pulmonary disease. Electronically signed by: Derrell Marti MD 08/05/2024 03:58 PM [facility] Medications Medications Current Medications Acetaminophen (Acetaminophen 325 Mg Tablet) 650 mg PO Q6H PRN PRN Reason: Headache/Pain Mild Scale (1-3) Acyclovir (Acyclovir 200 Mg Capsule) 400 mg PO DAILY [facility] Last Admin: 09/12/24 08:28 Dose: 400 mg Al Hydroxide/Mg Hydroxide (Magnesium Hydrox/Alum Hydrox 30 Ml Oral.Susp) 30 ml PO Q6H PRN PRN Reason: Heartburn/Nausea Albuterol Sulfate (Albuterol Sulfate 90 Mcg 8 Gm Inhaler) 2 puff INHALE Q4H PRN PRN Reason: Dyspnea Allopurinol (Allopurinol 100 Mg Tablet) 100 mg PO DAILY [facility] Last Admin: 09/12/24 08:28 Dose: 100 mg Aspirin (Aspirin Enteric Coated 81 Mg Tablet.Dr) 81 mg PO DAILY [facility] Last Admin: 09/12/24 08:28 Dose: 81 mg Calcium Carbonate (Calcium Carbonate 750 Mg Tab.Chew) 750 mg PO TID [facility] Last Admin: 09/12/24 14:37 Dose: 750 mg Clozapine (Clozapine 100 Mg Tablet) 300 mg PO BEDTIME [facility] Last Admin: 09/11/24 20:50 Dose: 300 mg Clozapine (Clozapine 25 Mg Tablet) 25 mg PO BID@0800,1500 [facility] Last Admin: 09/12/24 14:37 Dose: 25 mg Ferrous Sulfate (Ferrous Sulfate 324 Mg Tablet.) 324 mg PO DAILY [facility] Last Admin: 09/12/24 08:27 Dose: 324 mg Hydroxyzine HCl (Hydroxyzine Hcl 25 Mg Tablet) 25 mg PO Q6H PRN PRN Reason: Anxiety Last Admin: 09/11/24 20:52 Dose: 25 mg Loperamide HCl (Loperamide Hcl 2 Mg Capsule) 2 mg PO DAILY PRN PRN Reason: Diarrhea Last Admin: 08/24/24 14:42 Dose: 2 mg Loratadine (Loratadine 10 Mg Tablet) 10 mg PO BEDTIME [facility] Last Admin: 09/11/24 20:52 Dose: 10 mg Magnesium Hydroxide (Milk Of Magnesia 30 Ml Oral.Susp) 30 ml PO DAILY PRN PRN Reason: Constipation Pt Own (Lenalidomide (15 Mg)) 1 each PO DAILY [facility] Last Admin: 09/12/24 08:28 Dose: 1 each Omeprazole (Omeprazole 20 Mg Capsule.) 20 mg PO DAILY@0630 [facility] Last Admin: 09/12/24 05:55 Dose: 20 mg Ondansetron HCl (Ondansetron Odt 4 Mg Tab.Rapdis) 4 mg TRANSLINGU Q4H PRN PRN Reason: Nausea and Vomiting Last Admin: 08/28/24 20:33 Dose: 4 mg Senna (Sennosides 8.6 Mg Tablet) 17.2 mg PO DAILY PRN PRN Reason: constipation Sertraline HCl (Sertraline Hcl 50 Mg Tablet) 50 mg PO DAILY [facility] Last Admin: 09/12/24 08:27 Dose: 50 mg Vitamin D (Cholecalciferol (Vitamin D3) 25 Mcg Tablet) 50 mcg PO DAILY [facility] Last Admin: 09/12/24 08:27 Dose: 50 mcg Allergies Allergies Allergy/AdvReac Type Severity Reaction Status Date / Time No Known Allergies Allergy Verified 08/05/24 15:00 [No Known Allergies*] Assessment & Plan Assessment & Plan (1) Schizophrenia: Status: Acute Code(s): F20.9 - Schizophrenia, unspecified (2) Dementia: Status: Acute Code(s): F03.90 - Unspecified dementia, unspecified severity, without behavioral disturbance, psychotic disturbance, mood disturbance, and anxiety Plan The patient is an elderly female with a past history of schizophrenia on Clozaril chronically psychotic who was admitted from the community since she was paranoid against her caregivers. Plan 1. Clozaril was been titrated from 200 mg they to 350 mg daily with no evidence of over-sedation or side-effects. We are going to keep it on the same dose. 2. Referral to long-term care since the patient still paranoid against her granddaughter. 3. Continue with medical workout. 4. Affirmation of the healthcare proxy procedure for placement. Reason for continued inpatient stay Substantial Risk for: inability to function, rapid decompensation and med/psych decompensation Time Spent With Patient Time: Total time managing care of this patient today __20__ minutes.
[2024-09-12 20:00] VITALS: BP 116/66; PULSE 77; RESP 16; TEMP 36.1; O2SAT 100
[2024-09-12] MEDS: cloZAPine 100 MG TABLET 300 MG PO (20:42)
[2024-09-12] MEDS: Loratadine 10 MG TABLET PO (20:43)
[2024-09-12] MEDS: hydrOXYzine HCL 25 MG TABLET PO (20:43)
[2024-09-13] MEDS: Omeprazole 20 MG CAPSULE.DR PO (05:55)
[2024-09-13 08:36] VITALS: BP 109/56; PULSE 84; RESP 18; TEMP 36.3; O2SAT 100
[2024-09-13 08:52] LABS: MANUAL DIFF FLAG NO
[2024-09-13 08:55] LABS: Basophils Percent Auto 0.7 % (0-2); Eosinophils Absolute Auto 0.2 X10*3/uL (0.0-0.4); Eosinophils Percent Auto 4.4 % (0-4); Hematocrit 31.4 % (37.0-47.0); Hemoglobin 9.9 g/dl (12.0-16.0); Imm Gran Abs Auto 0.02 X10*3/uL (0.00-0.03); Imm Gran Pct Auto 0.4 % (0.0-0.4); Lymphocytes Absolute Auto 1.1 X10*3/uL (1.2-4.9); Lymphocytes Percent Auto 20.1 % (20-40); Mean Corpuscular HGB Conc 31.5 g/dl (31.0-35.0); Mean Corpuscular Hemoglobin 29.4 pg (27.0-33.0); Mean Corpuscular Volume 93.2 fL (80.0-98.0); Mean Platelet Volume 10.4 fL (9.4-12.3); Monocytes Absolute Auto 0.4 X10*3/uL (0.1-1.2); Monocytes Percent Auto 8.1 % (2-11); Neutrophils Absolute Auto 3.6 x10*3/uL (2.0-8.3); Neutrophils Percent Auto 66.3 % (45-73); Platelet Count 150 X10*3/uL (160-400); Red Blood Count 3.37 X10*6/uL (4.20-5.50); Red Cell Distribution Width 14.8 % (11.0-16.0); White Blood Count 5.4 X10*3/uL (4.8-10.8)
[2024-09-13] MEDS: Cholecalciferol (Vitamin D3) 25 MCG TABLET 50 MCG PO (09:06)
[2024-09-13] MEDS: Calcium Carbonate 750 MG TAB.CHEW PO ×2 (09:06→14:36)
[2024-09-13] MEDS: cloZAPine 25 MG TABLET PO ×2 (09:07→14:36)
[2024-09-13] MEDS: Aspirin Enteric Coated 81 MG TABLET.DR PO (09:07)
[2024-09-13] MEDS: Sertraline HCL 50 MG TABLET PO (09:07)
[2024-09-13] MEDS: allopurinoL 100 MG TABLET PO (09:07)
[2024-09-13] MEDS: Ferrous Sulfate 324 MG TABLET.DR PO (09:07)
[2024-09-13] MEDS: Acyclovir 200 MG CAPSULE 400 MG PO (09:07)
[2024-09-13 09:18] LABS: Alanine Aminotransferase 14 U/L (0-31); Alkaline Phosphatase 74 U/L (39-117); Anion Gap 10 (12-20); Aspartate Amino Transferase 18 U/L (5-31); Bilirubin Total 0.2 mg/dL (0.0-1.0); Blood Urea Nitrogen 13 mg/dL (9-16); Calcium 8.4 mg/dL (8.4-10.2); Carbon Dioxide 26 mmol/L (22-29); Chloride 111 mmol/L (96-108); Creatinine Clr Calc Pharmacy 52.9; Estimated Glomerular Filt Rate > 60; Glucose Fasting 91 mg/dL (60-99); Potassium 3.9 mmol/L (3.3-5.1); Sodium 143 mmol/L (135-145)
--- NOTE | 2024-09-13 17:11 | P.PNPSI_ITS ---
Subjective Subjective Date of Service: 09/13/24 Reason For Visit: paranoia Interim History: says she is fine, then says bylorenzo olivere. per staff, no change in presentation. self-dialoguing. [facility]. awaiting placement. Mental Status Exam Mental Status Exam Patient Appearance: Appropriate Patient Orientation: Person and Situation Level of Consciousness: Awake and Appropriate Patient Behavior: Guarded and Passive Mood Description: Withdrawn Affect Description: Constricted Patient Cognition Impaired: Yes Ability to Follow Directions: Good Speech Pattern: Clear Hallucinations: Auditory Delusions: Paranoid Ideation Thought Process: Distracted and Slowed Thinking Thought Content: positive for [place] and positive for Poverty of Content Judgement: Poor Diagnostics Vital Signs (24Hr): Vital Signs - 24 hr 09/12/24 20:00 09/13/24 08:36 Temperature 96.9 F 97.4 F Pulse Rate 77 84 Respiratory Rate 16 18 Blood Pressure 116/66 109/56 L Pulse Oximetry 100 100 Oxygen Delivery Method Room Air Room Air BMI result Body Mass Index 28.0 Labs 09/13/24 08:17 09/13/24 08:17 Labs: Laboratory Results - last 48 hr 09/13/24 08:17 WBC 5.4 RBC 3.37 L Hgb 9.9 L Hct 31.4 L MCV 93.2 MCH 29.4 MCHC 31.5 RDW 14.8 Plt Count 150 L MPV 10.4 Immature Gran % (Auto) 0.4 Neut % (Auto) 66.3 Lymph % (Auto) 20.1 [place] % (Auto) 8.1 Eos % (Auto) 4.4 H Baso % (Auto) 0.7 Lymph # (Auto) 1.1 L [place] # (Auto) 0.4 Eos # (Auto) 0.2 Baso # (Auto) 0.0 Abs Immat Gran (auto) 0.02 Absolute Neuts (auto) 3.6 Absolute Nucleated RBC 0.000 Nucleated RBC % (auto) 0.0 Sodium 143 Potassium 3.9 Chloride 111 H Carbon Dioxide 26 Anion Gap 10 L BUN 13 Creatinine 0.75 Estim Creat Clear Calc 52.9 Estimated GFR > 60 Fasting Glucose 91 Calcium 8.4 Total Bilirubin 0.2 AST 18 ALT 14 Alkaline Phosphatase 74 Total Protein 6.0 L Albumin 3.0 L Imaging Radiology Impressions: ITS Impressions Chest X-Ray 08/05/24 15:34 IMPRESSION: No active pulmonary disease. Electronically signed by: Derrell Marti MD 08/05/2024 03:58 PM [facility] Medications Medications Current Medications Acetaminophen (Acetaminophen 325 Mg Tablet) 650 mg PO Q6H PRN PRN Reason: Headache/Pain Mild Scale (1-3) Acyclovir (Acyclovir 200 Mg Capsule) 400 mg PO DAILY [facility] Last Admin: 09/13/24 09:07 Dose: 400 mg Al Hydroxide/Mg Hydroxide (Magnesium Hydrox/Alum Hydrox 30 Ml Oral.Susp) 30 ml PO Q6H PRN PRN Reason: Heartburn/Nausea Albuterol Sulfate (Albuterol Sulfate 90 Mcg 8 Gm Inhaler) 2 puff INHALE Q4H PRN PRN Reason: Dyspnea Allopurinol (Allopurinol 100 Mg Tablet) 100 mg PO DAILY [facility] Last Admin: 09/13/24 09:07 Dose: 100 mg Aspirin (Aspirin Enteric Coated 81 Mg Tablet.) 81 mg PO DAILY [facility] Last Admin: 09/13/24 09:07 Dose: 81 mg Calcium Carbonate (Calcium Carbonate 750 Mg Tab.Chew) 750 mg PO TID [facility] Last Admin: 09/13/24 14:36 Dose: 750 mg Clozapine (Clozapine 100 Mg Tablet) 300 mg PO BEDTIME [facility] Last Admin: 09/12/24 20:42 Dose: 300 mg Clozapine (Clozapine 25 Mg Tablet) 25 mg PO BID@0800,1500 [facility] Last Admin: 09/13/24 14:36 Dose: 25 mg Ferrous Sulfate (Ferrous Sulfate 324 Mg Tablet.) 324 mg PO DAILY [facility] Last Admin: 09/13/24 09:07 Dose: 324 mg Hydroxyzine HCl (Hydroxyzine Hcl 25 Mg Tablet) 25 mg PO Q6H PRN PRN Reason: Anxiety Last Admin: 09/12/24 20:43 Dose: 25 mg Loperamide HCl (Loperamide Hcl 2 Mg Capsule) 2 mg PO DAILY PRN PRN Reason: Diarrhea Last Admin: 08/24/24 14:42 Dose: 2 mg Loratadine (Loratadine 10 Mg Tablet) 10 mg PO BEDTIME [facility] Last Admin: 09/12/24 20:43 Dose: 10 mg Magnesium Hydroxide (Milk Of Magnesia 30 Ml Oral.Susp) 30 ml PO DAILY PRN PRN Reason: Constipation Pt Own (Lenalidomide (15 Mg)) 1 each PO DAILY [facility] Last Admin: 09/13/24 10:15 Dose: Not Given Omeprazole (Omeprazole 20 Mg Capsule.Dr) 20 mg PO DAILY@0630 [facility] Last Admin: 09/13/24 05:55 Dose: 20 mg Ondansetron HCl (Ondansetron Odt 4 Mg Tab.Rapdis) 4 mg TRANSLINGU Q4H PRN PRN Reason: Nausea and Vomiting Last Admin: 08/28/24 20:33 Dose: 4 mg Senna (Sennosides 8.6 Mg Tablet) 17.2 mg PO DAILY PRN PRN Reason: constipation Sertraline HCl (Sertraline Hcl 50 Mg Tablet) 50 mg PO DAILY [facility] Last Admin: 09/13/24 09:07 Dose: 50 mg Vitamin D (Cholecalciferol (Vitamin D3) 25 Mcg Tablet) 50 mcg PO DAILY [facility] Last Admin: 09/13/24 09:06 Dose: 50 mcg Allergies Allergies Allergy/AdvReac Type Severity Reaction Status Date / Time No Known Allergies Allergy Verified 08/05/24 15:00 [No Known Allergies*] Assessment & Plan Assessment & Plan (1) Schizophrenia: Status: Acute Code(s): F20.9 - Schizophrenia, unspecified (2) Dementia: Status: Acute Code(s): F03.90 - Unspecified dementia, unspecified severity, without behavioral disturbance, psychotic disturbance, mood disturbance, and anxiety Plan The patient is an elderly female with a past history of schizophrenia on Clozaril chronically psychotic who was admitted from the community since she was paranoid against her caregivers. Plan 1. Clozaril was been titrated from 200 mg they to 350 mg daily with no evidence of over-sedation or side-effects. We are going to keep it on the same dose. 2. Referral to long-term care since the patient still paranoid against her granddaughter. 3. Continue with medical workout. 4. Affirmation of the healthcare proxy procedure for placement. Reason for continued inpatient stay Substantial Risk for: inability to function Time Spent With Patient Time: Total time managing care of this patient today ____ minutes.
[2024-09-13 20:00] VITALS: BP 92/59; PULSE 84; RESP 16; TEMP 36.1; O2SAT 100
[2024-09-13] MEDS: cloZAPine 100 MG TABLET 300 MG PO (21:03)
[2024-09-13] MEDS: hydrOXYzine HCL 25 MG TABLET PO (21:04)
[2024-09-13] MEDS: Loratadine 10 MG TABLET PO (21:04)
[2024-09-14] MEDS: Calcium Carbonate 750 MG TAB.CHEW PO ×4 (03:52→21:06)
[2024-09-14] MEDS: Omeprazole 20 MG CAPSULE.DR PO (06:36)
[2024-09-14 08:46] VITALS: BP 113/66; PULSE 95; RESP 18; TEMP 36.3; O2SAT 99
[2024-09-14] MEDS: Acyclovir 200 MG CAPSULE 400 MG PO (08:55)
[2024-09-14] MEDS: Ferrous Sulfate 324 MG TABLET.DR PO (08:56)
[2024-09-14] MEDS: Sertraline HCL 50 MG TABLET PO (08:56)
[2024-09-14] MEDS: Cholecalciferol (Vitamin D3) 25 MCG TABLET 50 MCG PO (08:56)
[2024-09-14] MEDS: cloZAPine 25 MG TABLET PO ×2 (08:56→14:14)
[2024-09-14] MEDS: Aspirin Enteric Coated 81 MG TABLET.DR PO (08:56)
[2024-09-14] MEDS: allopurinoL 100 MG TABLET PO (08:56)
[2024-09-14] MEDS: LENALIDOMIDE 15 MG 1 EACH PO (13:13)
--- NOTE | 2024-09-14 13:25 | P.PNPSI_ITS ---
Subjective Subjective Date of Service: 09/14/24 Reason For Visit: paranoia Interim History: OK. benitocarolina ventura. denies problems, says benitolorenzo benitolorenzo. per staff, slept 8 hours, no change in presentation. Mental Status Exam Mental Status Exam Patient Appearance: Appropriate Patient Orientation: Person and Situation Level of Consciousness: Awake and Appropriate Patient Behavior: Guarded and Passive Mood Description: Withdrawn Affect Description: Constricted Patient Cognition Impaired: Yes Ability to Follow Directions: Good Speech Pattern: Clear Thought Content: positive for [place] and positive for Poverty of Content Judgement: Poor Diagnostics Vital Signs (24Hr): Vital Signs - 24 hr 09/13/24 20:00 09/14/24 08:46 Temperature 97 F 97.4 F Pulse Rate 84 95 Respiratory Rate 16 18 Blood Pressure 92/59 L 113/66 Pulse Oximetry 100 99 Oxygen Delivery Method Room Air Room Air BMI result Body Mass Index 28.0 Labs 09/13/24 08:17 09/13/24 08:17 Labs: Laboratory Results - last 48 hr 09/13/24 08:17 WBC 5.4 RBC 3.37 L Hgb 9.9 L Hct 31.4 L MCV 93.2 MCH 29.4 MCHC 31.5 RDW 14.8 Plt Count 150 L MPV 10.4 Immature Gran % (Auto) 0.4 Neut % (Auto) 66.3 Lymph % (Auto) 20.1 Burke % (Auto) 8.1 Eos % (Auto) 4.4 H Baso % (Auto) 0.7 Lymph # (Auto) 1.1 L Burke # (Auto) 0.4 Eos # (Auto) 0.2 Baso # (Auto) 0.0 Abs Immat Gran (auto) 0.02 Absolute Neuts (auto) 3.6 Absolute Nucleated RBC 0.000 Nucleated RBC % (auto) 0.0 Sodium 143 Potassium 3.9 Chloride 111 H Carbon Dioxide 26 Anion Gap 10 L BUN 13 Creatinine 0.75 Estim Creat Clear Calc 52.9 Estimated GFR > 60 Fasting Glucose 91 Calcium 8.4 Total Bilirubin 0.2 AST 18 ALT 14 Alkaline Phosphatase 74 Total Protein 6.0 L Albumin 3.0 L Imaging Radiology Impressions: ITS Impressions Chest X-Ray 08/05/24 15:34 IMPRESSION: No active pulmonary disease. Electronically signed by: Derrell Marti MD 08/05/2024 03:58 PM EST Medications Medications Current Medications Acetaminophen (Acetaminophen 325 Mg Tablet) 650 mg PO Q6H PRN PRN Reason: Headache/Pain Mild Scale (1-3) Acyclovir (Acyclovir 200 Mg Capsule) 400 mg PO DAILY [facility] Last Admin: 09/14/24 08:55 Dose: 400 mg Al Hydroxide/Mg Hydroxide (Magnesium Hydrox/Alum Hydrox 30 Ml Oral.Susp) 30 ml PO Q6H PRN PRN Reason: Heartburn/Nausea Albuterol Sulfate (Albuterol Sulfate 90 Mcg 8 Gm Inhaler) 2 puff INHALE Q4H PRN PRN Reason: Dyspnea Allopurinol (Allopurinol 100 Mg Tablet) 100 mg PO DAILY [facility] Last Admin: 09/14/24 08:56 Dose: 100 mg Aspirin (Aspirin Enteric Coated 81 Mg Tablet.) 81 mg PO DAILY [facility] Last Admin: 09/14/24 08:56 Dose: 81 mg Calcium Carbonate (Calcium Carbonate 750 Mg Tab.Chew) 750 mg PO TID [facility] Last Admin: 09/14/24 08:56 Dose: 750 mg Clozapine (Clozapine 100 Mg Tablet) 300 mg PO BEDTIME [facility] Last Admin: 09/13/24 21:03 Dose: 300 mg Clozapine (Clozapine 25 Mg Tablet) 25 mg PO BID@0800,1500 [facility] Last Admin: 09/14/24 08:56 Dose: 25 mg Ferrous Sulfate (Ferrous Sulfate 324 Mg Tablet.) 324 mg PO DAILY [facility] Last Admin: 09/14/24 08:56 Dose: 324 mg Hydroxyzine HCl (Hydroxyzine Hcl 25 Mg Tablet) 25 mg PO Q6H PRN PRN Reason: Anxiety Last Admin: 09/13/24 21:04 Dose: 25 mg Loperamide HCl (Loperamide Hcl 2 Mg Capsule) 2 mg PO DAILY PRN PRN Reason: Diarrhea Last Admin: 08/24/24 14:42 Dose: 2 mg Loratadine (Loratadine 10 Mg Tablet) 10 mg PO BEDTIME [facility] Last Admin: 09/13/24 21:04 Dose: 10 mg Magnesium Hydroxide (Milk Of Magnesia 30 Ml Oral.Susp) 30 ml PO DAILY PRN PRN Reason: Constipation Pt Own (Lenalidomide (15 Mg)) 1 each PO DAILY [facility] Last Admin: 09/14/24 13:13 Dose: 1 each Omeprazole (Omeprazole 20 Mg Capsule.) 20 mg PO DAILY@0630 [facility] Last Admin: 09/14/24 06:36 Dose: 20 mg Ondansetron HCl (Ondansetron Odt 4 Mg Tab.Rapdis) 4 mg TRANSLINGU Q4H PRN PRN Reason: Nausea and Vomiting Last Admin: 08/28/24 20:33 Dose: 4 mg Senna (Sennosides 8.6 Mg Tablet) 17.2 mg PO DAILY PRN PRN Reason: constipation Sertraline HCl (Sertraline Hcl 50 Mg Tablet) 50 mg PO DAILY [facility] Last Admin: 09/14/24 08:56 Dose: 50 mg Vitamin D (Cholecalciferol (Vitamin D3) 25 Mcg Tablet) 50 mcg PO DAILY [facility] Last Admin: 09/14/24 08:56 Dose: 50 mcg Allergies Allergies Allergy/AdvReac Type Severity Reaction Status Date / Time No Known Allergies Allergy Verified 08/05/24 15:00 [No Known Allergies*] Assessment & Plan Assessment & Plan (1) Schizophrenia: Status: Acute Code(s): F20.9 - Schizophrenia, unspecified (2) Dementia: Status: Acute Code(s): F03.90 - Unspecified dementia, unspecified severity, without behavioral disturbance, psychotic disturbance, mood disturbance, and anxiety Plan The patient is an elderly female with a past history of schizophrenia on Clozaril chronically psychotic who was admitted from the community since she was paranoid against her caregivers. Plan 1. Clozaril was been titrated from 200 mg they to 350 mg daily with no evidence of over-sedation or side-effects. We are going to keep it on the same dose. 2. Referral to long-term care since the patient still paranoid against her granddaughter. 3. Continue with medical workout. 4. Affirmation of the healthcare proxy procedure for placement. Reason for continued inpatient stay Substantial Risk for: inability to function Time Spent With Patient Time: Total time managing care of this patient today ____ minutes.
[2024-09-14 20:00] VITALS: BP 113/71; PULSE 82; RESP 16; TEMP 36.1; O2SAT 99
[2024-09-14] MEDS: cloZAPine 100 MG TABLET 300 MG PO (21:05)
[2024-09-14] MEDS: Loratadine 10 MG TABLET PO (21:06)
[2024-09-14] MEDS: hydrOXYzine HCL 25 MG TABLET PO (21:06)
[2024-09-15] MEDS: Omeprazole 20 MG CAPSULE.DR PO (05:54)
[2024-09-15 08:29] VITALS: BP 104/59; PULSE 77; RESP 16; TEMP 35.8; O2SAT 98
[2024-09-15] MEDS: LENALIDOMIDE 15 MG 1 EACH PO (09:07)
[2024-09-15] MEDS: cloZAPine 25 MG TABLET PO ×2 (09:08→14:42)
[2024-09-15] MEDS: Acyclovir 200 MG CAPSULE 400 MG PO (09:08)
[2024-09-15] MEDS: Cholecalciferol (Vitamin D3) 25 MCG TABLET 50 MCG PO (09:08)
[2024-09-15] MEDS: Aspirin Enteric Coated 81 MG TABLET.DR PO (09:08)
[2024-09-15] MEDS: Ferrous Sulfate 324 MG TABLET.DR PO (09:08)
[2024-09-15] MEDS: allopurinoL 100 MG TABLET PO (09:08)
[2024-09-15] MEDS: Sertraline HCL 50 MG TABLET PO (09:08)
[2024-09-15] MEDS: Calcium Carbonate 750 MG TAB.CHEW PO ×3 (09:08→20:53)
--- NOTE | 2024-09-15 11:29 | HO.PSYCHPN ---
Subjective Subjective Date of Service: 09/15/24 Reason For Visit: paranoia Subjective Notes: Conditional Voluntary Interim History: The nursing staff reported the patient had been on bed all day only out for meals. She refused to be weighed she slept 8 hours. On interview the patient was dismissive chronically psychotic but with no side-effects with the increase of Clozaril that we nearly doubled. Waiting for placement. Mental Status Exam Mental Status Exam Patient Appearance: Appropriate Patient Orientation: Person and Situation Level of Consciousness: Awake and Appropriate Patient Behavior: Guarded and Passive Mood Description: Withdrawn Affect Description: Blunted Patient Cognition Impaired: Yes Ability to Follow Directions: Good Speech Pattern: Clear Hallucinations: Auditory Delusions: Paranoid Ideation and Ideas of Reference Thought Process: Distracted and Slowed Thinking Thought Content: positive for [place] and positive for Poverty of Content Judgement: Poor Diagnostics Vital Signs (24Hr): Vital Signs - 24 hr 09/14/24 20:00 09/15/24 08:29 Temperature 96.9 F 96.4 F L Pulse Rate 82 77 Respiratory Rate 16 16 Blood Pressure 113/71 104/59 L Pulse Oximetry 99 98 Oxygen Delivery Method Room Air BMI result Body Mass Index 28.0 Labs 09/13/24 08:17 09/13/24 08:17 Imaging Radiology Impressions: ITS Impressions Chest X-Ray 08/05/24 15:34 IMPRESSION: No active pulmonary disease. Electronically signed by: Derrell Marti MD 08/05/2024 03:58 PM [facility] Medications Medications Current Medications Acetaminophen (Acetaminophen 325 Mg Tablet) 650 mg PO Q6H PRN PRN Reason: Headache/Pain Mild Scale (1-3) Acyclovir (Acyclovir 200 Mg Capsule) 400 mg PO DAILY [facility] Last Admin: 09/15/24 09:08 Dose: 400 mg Al Hydroxide/Mg Hydroxide (Magnesium Hydrox/Alum Hydrox 30 Ml Oral.Susp) 30 ml PO Q6H PRN PRN Reason: Heartburn/Nausea Albuterol Sulfate (Albuterol Sulfate 90 Mcg 8 Gm Inhaler) 2 puff INHALE Q4H PRN PRN Reason: Dyspnea Allopurinol (Allopurinol 100 Mg Tablet) 100 mg PO DAILY [facility] Last Admin: 09/15/24 09:08 Dose: 100 mg Aspirin (Aspirin Enteric Coated 81 Mg Tablet.) 81 mg PO DAILY [facility] Last Admin: 09/15/24 09:08 Dose: 81 mg Calcium Carbonate (Calcium Carbonate 750 Mg Tab.Chew) 750 mg PO TID [facility] Last Admin: 09/15/24 09:08 Dose: 750 mg Clozapine (Clozapine 100 Mg Tablet) 300 mg PO BEDTIME [facility] Last Admin: 09/14/24 21:05 Dose: 300 mg Clozapine (Clozapine 25 Mg Tablet) 25 mg PO BID@0800,1500 [facility] Last Admin: 09/15/24 09:08 Dose: 25 mg Ferrous Sulfate (Ferrous Sulfate 324 Mg Tablet.) 324 mg PO DAILY [facility] Last Admin: 09/15/24 09:08 Dose: 324 mg Hydroxyzine HCl (Hydroxyzine Hcl 25 Mg Tablet) 25 mg PO Q6H PRN PRN Reason: Anxiety Last Admin: 09/14/24 21:06 Dose: 25 mg Loperamide HCl (Loperamide Hcl 2 Mg Capsule) 2 mg PO DAILY PRN PRN Reason: Diarrhea Last Admin: 08/24/24 14:42 Dose: 2 mg Loratadine (Loratadine 10 Mg Tablet) 10 mg PO BEDTIME [facility] Last Admin: 09/14/24 21:06 Dose: 10 mg Magnesium Hydroxide (Milk Of Magnesia 30 Ml Oral.Susp) 30 ml PO DAILY PRN PRN Reason: Constipation Pt Own (Lenalidomide (15 Mg)) 1 each PO DAILY [facility] Last Admin: 09/15/24 09:07 Dose: 1 each Omeprazole (Omeprazole 20 Mg Capsule.) 20 mg PO DAILY@0630 [facility] Last Admin: 09/15/24 05:54 Dose: 20 mg Ondansetron HCl (Ondansetron Odt 4 Mg Tab.Rapdis) 4 mg TRANSLINGU Q4H PRN PRN Reason: Nausea and Vomiting Last Admin: 08/28/24 20:33 Dose: 4 mg Senna (Sennosides 8.6 Mg Tablet) 17.2 mg PO DAILY PRN PRN Reason: constipation Sertraline HCl (Sertraline Hcl 50 Mg Tablet) 50 mg PO DAILY [facility] Last Admin: 09/15/24 09:08 Dose: 50 mg Vitamin D (Cholecalciferol (Vitamin D3) 25 Mcg Tablet) 50 mcg PO DAILY [facility] Last Admin: 09/15/24 09:08 Dose: 50 mcg Allergies Allergies Allergy/AdvReac Type Severity Reaction Status Date / Time No Known Allergies Allergy Verified 08/05/24 15:00 [No Known Allergies*] Assessment & Plan Assessment & Plan (1) Schizophrenia: Status: Acute Code(s): F20.9 - Schizophrenia, unspecified (2) Dementia: Status: Acute Code(s): F03.90 - Unspecified dementia, unspecified severity, without behavioral disturbance, psychotic disturbance, mood disturbance, and anxiety Plan The patient is an elderly female with a past history of schizophrenia on Clozaril chronically psychotic who was admitted from the community since she was paranoid against her caregivers. Plan 1. Clozaril was been titrated from 200 mg they to 350 mg daily with no evidence of over-sedation or side-effects. We are going to keep it on the same dose. 2. Referral to long-term care since the patient still paranoid against her granddaughter. 3. Continue with medical workout. 4. Affirmation of the healthcare proxy procedure for placement. Reason for continued inpatient stay Substantial Risk for: inability to function, rapid decompensation and med/psych decompensation Time Spent With Patient Time: Total time managing care of this patient today __20__ minutes.
[2024-09-15 20:00] VITALS: BP 105/62; PULSE 70; RESP 16; TEMP 36; O2SAT 96
[2024-09-15] MEDS: hydrOXYzine HCL 25 MG TABLET PO (20:53)
[2024-09-15] MEDS: Loratadine 10 MG TABLET PO (20:53)
[2024-09-15] MEDS: cloZAPine 100 MG TABLET 300 MG PO (20:53)
[2024-09-16] MEDS: Omeprazole 20 MG CAPSULE.DR PO (06:06)
[2024-09-16 08:00] VITALS: BP 131/71; PULSE 104; RESP 20; TEMP 36.5; O2SAT 100
[2024-09-16 08:25] LABS: Neut%MD 59.2 %; Neutrophils Absolute Auto 2.4 x10*3/uL (2.0-8.3); WBCANC 4.1 X10*3/uL
[2024-09-16] MEDS: Calcium Carbonate 750 MG TAB.CHEW PO ×3 (09:22→20:14)
[2024-09-16] MEDS: allopurinoL 100 MG TABLET PO (09:22)
[2024-09-16] MEDS: cloZAPine 25 MG TABLET PO ×2 (09:23→16:11)
[2024-09-16] MEDS: Aspirin Enteric Coated 81 MG TABLET.DR PO (09:23)
[2024-09-16] MEDS: Ferrous Sulfate 324 MG TABLET.DR PO (09:23)
[2024-09-16] MEDS: Sertraline HCL 50 MG TABLET PO (09:23)
[2024-09-16] MEDS: Acyclovir 200 MG CAPSULE 400 MG PO (09:23)
[2024-09-16] MEDS: LENALIDOMIDE 15 MG 1 EACH PO (09:27)
[2024-09-16] MEDS: Cholecalciferol (Vitamin D3) 25 MCG TABLET 50 MCG PO (09:35)
--- NOTE | 2024-09-16 11:38 | HO.PSYCHPN ---
Subjective Subjective Date of Service: 09/16/24 Reason For Visit: paranoia Subjective Notes: Conditional Voluntary Interim History: The nursing staff reported no changes in her mental status, she had been dismissive. The social media designer reported that she had referred to several correction facilities. On interview the patient denies new symptoms, we are going to filed for affirmation of healthcare proxy. Mental Status Exam Mental Status Exam Patient Appearance: Appropriate Patient Orientation: Person and Situation Diagnostics Vital Signs (24Hr): Vital Signs - 24 hr 09/15/24 20:00 09/16/24 08:00 Temperature 96.8 F 97.7 F Pulse Rate 70 104 H Respiratory Rate 16 20 Blood Pressure 105/62 131/71 Pulse Oximetry 96 100 Oxygen Delivery Method Room Air BMI result Body Mass Index 28.0 Labs 09/13/24 08:17 09/13/24 08:17 Labs: Laboratory Results - last 48 hr 09/16/24 07:46 Absolute Neuts (auto) 2.4 Imaging Radiology Impressions: ITS Impressions Chest X-Ray 08/05/24 15:34 IMPRESSION: No active pulmonary disease. Electronically signed by: Derrell Marti MD 08/05/2024 03:58 PM [facility] Medications Medications Current Medications Acetaminophen (Acetaminophen 325 Mg Tablet) 650 mg PO Q6H PRN PRN Reason: Headache/Pain Mild Scale (1-3) Acyclovir (Acyclovir 200 Mg Capsule) 400 mg PO DAILY [facility] Last Admin: 09/16/24 09:23 Dose: 400 mg Al Hydroxide/Mg Hydroxide (Magnesium Hydrox/Alum Hydrox 30 Ml Oral.Susp) 30 ml PO Q6H PRN PRN Reason: Heartburn/Nausea Albuterol Sulfate (Albuterol Sulfate 90 Mcg 8 Gm Inhaler) 2 puff INHALE Q4H PRN PRN Reason: Dyspnea Allopurinol (Allopurinol 100 Mg Tablet) 100 mg PO DAILY [facility] Last Admin: 09/16/24 09:22 Dose: 100 mg Aspirin (Aspirin Enteric Coated 81 Mg Tablet.Dr) 81 mg PO DAILY [facility] Last Admin: 09/16/24 09:23 Dose: 81 mg Calcium Carbonate (Calcium Carbonate 750 Mg Tab.Chew) 750 mg PO TID [facility] Last Admin: 09/16/24 09:22 Dose: 750 mg Clozapine (Clozapine 100 Mg Tablet) 300 mg PO BEDTIME [facility] Last Admin: 09/15/24 20:53 Dose: 300 mg Clozapine (Clozapine 25 Mg Tablet) 25 mg PO BID@0800,1500 [facility] Last Admin: 09/16/24 09:23 Dose: 25 mg Ferrous Sulfate (Ferrous Sulfate 324 Mg Tablet.) 324 mg PO DAILY [facility] Last Admin: 09/16/24 09:23 Dose: 324 mg Hydroxyzine HCl (Hydroxyzine Hcl 25 Mg Tablet) 25 mg PO Q6H PRN PRN Reason: Anxiety Last Admin: 09/15/24 20:53 Dose: 25 mg Loperamide HCl (Loperamide Hcl 2 Mg Capsule) 2 mg PO DAILY PRN PRN Reason: Diarrhea Last Admin: 08/24/24 14:42 Dose: 2 mg Loratadine (Loratadine 10 Mg Tablet) 10 mg PO BEDTIME [facility] Last Admin: 09/15/24 20:53 Dose: 10 mg Magnesium Hydroxide (Milk Of Magnesia 30 Ml Oral.Susp) 30 ml PO DAILY PRN PRN Reason: Constipation Pt Own (Lenalidomide (15 Mg)) 1 each PO DAILY [facility] Last Admin: 09/16/24 09:27 Dose: 1 each Omeprazole (Omeprazole 20 Mg Capsule.) 20 mg PO DAILY@0630 [facility] Last Admin: 09/16/24 06:06 Dose: 20 mg Ondansetron HCl (Ondansetron Odt 4 Mg Tab.Rapdis) 4 mg TRANSLINGU Q4H PRN PRN Reason: Nausea and Vomiting Last Admin: 08/28/24 20:33 Dose: 4 mg Senna (Sennosides 8.6 Mg Tablet) 17.2 mg PO DAILY PRN PRN Reason: constipation Sertraline HCl (Sertraline Hcl 50 Mg Tablet) 50 mg PO DAILY [facility] Last Admin: 09/16/24 09:23 Dose: 50 mg Vitamin D (Cholecalciferol (Vitamin D3) 25 Mcg Tablet) 50 mcg PO DAILY [facility] Last Admin: 09/16/24 09:35 Dose: 50 mcg Allergies Allergies Allergy/AdvReac Type Severity Reaction Status Date / Time No Known Allergies Allergy Verified 08/05/24 15:00 [No Known Allergies*] Assessment & Plan Assessment & Plan (1) Schizophrenia: Status: Acute Code(s): F20.9 - Schizophrenia, unspecified (2) Dementia: Status: Acute Code(s): F03.90 - Unspecified dementia, unspecified severity, without behavioral disturbance, psychotic disturbance, mood disturbance, and anxiety Plan The patient is an elderly female with a past history of schizophrenia on Clozaril chronically psychotic who was admitted from the community since she was paranoid against her caregivers. Plan 1. Clozaril was been titrated from 200 mg they to 350 mg daily with no evidence of over-sedation or side-effects. We are going to keep it on the same dose. 2. Referral to long-term care since the patient still paranoid against her granddaughter. 3. Continue with medical workout. 4. Affirmation of the healthcare proxy procedure for placement. Reason for continued inpatient stay Substantial Risk for: inability to function, rapid decompensation and med/psych decompensation Time Spent With Patient Time: Total time managing care of this patient today ____ minutes.
[2024-09-16 20:09] VITALS: BP 106/53; PULSE 83; RESP 16; TEMP 36.6; O2SAT 100
[2024-09-16] MEDS: cloZAPine 100 MG TABLET 300 MG PO (20:14)
[2024-09-16] MEDS: Loratadine 10 MG TABLET PO (20:14)
[2024-09-17] MEDS: Omeprazole 20 MG CAPSULE.DR PO (05:12)
[2024-09-17 08:00] VITALS: BP 117/66; PULSE 81; RESP 18; TEMP 36.7; O2SAT 100
[2024-09-17] MEDS: Acyclovir 200 MG CAPSULE 400 MG PO (09:05)
[2024-09-17] MEDS: Aspirin Enteric Coated 81 MG TABLET.DR PO (09:05)
[2024-09-17] MEDS: Ferrous Sulfate 324 MG TABLET.DR PO (09:05)
[2024-09-17] MEDS: Cholecalciferol (Vitamin D3) 25 MCG TABLET 50 MCG PO (09:06)
[2024-09-17] MEDS: allopurinoL 100 MG TABLET PO (09:06)
[2024-09-17] MEDS: Sertraline HCL 50 MG TABLET PO (09:06)
[2024-09-17] MEDS: cloZAPine 25 MG TABLET PO ×2 (09:06→15:14)
[2024-09-17] MEDS: Calcium Carbonate 750 MG TAB.CHEW PO ×3 (09:06→19:51)
[2024-09-17] MEDS: LENALIDOMIDE 15 MG 1 EACH PO (09:07)
--- NOTE | 2024-09-17 09:46 | P.PNPSI_ITS ---
Subjective Subjective Date of Service: 09/17/24 Reason For Visit: paranoia Subjective Notes: Conditional Voluntary Healthcare Proxy: Yes Interim History: The nursing staff reported the patient had been seclusive flat in her room out only for meals. The social services aide reported that [facility] is interested on taking her. The paperwork for information of the healthcare proxy was done. Interview the patient denies new symptoms, waiting for placement Mental Status Exam Mental Status Exam Patient Appearance: Appropriate Patient Orientation: Person and Situation Level of Consciousness: Awake and Appropriate Patient Behavior: Guarded and Passive Mood Description: Calm Affect Description: Constricted Patient Cognition Impaired: Yes Ability to Follow Directions: Good Speech Pattern: Clear Hallucinations: None Delusions: Paranoid Ideation and Ideas of Reference Thought Process: Distracted and Slowed Thinking Thought Content: positive for [place] and positive for Poverty of Content Judgement: Fair Diagnostics Vital Signs (24Hr): Vital Signs - 24 hr 09/16/24 20:09 09/17/24 08:00 Temperature 97.8 F 98.0 F Pulse Rate 83 81 Respiratory Rate 16 18 Blood Pressure 106/53 L 117/66 Pulse Oximetry 100 100 Oxygen Delivery Method Room Air Room Air BMI result Body Mass Index 28.0 Labs 09/13/24 08:17 09/13/24 08:17 Labs: Laboratory Results - last 48 hr 09/16/24 07:46 Absolute Neuts (auto) 2.4 Imaging Radiology Impressions: ITS Impressions Chest X-Ray 08/05/24 15:34 IMPRESSION: No active pulmonary disease. Electronically signed by: Derrell Marti MD 08/05/2024 03:58 PM [facility] Medications Medications Current Medications Acetaminophen (Acetaminophen 325 Mg Tablet) 650 mg PO Q6H PRN PRN Reason: Headache/Pain Mild Scale (1-3) Acyclovir (Acyclovir 200 Mg Capsule) 400 mg PO DAILY [facility] Last Admin: 09/17/24 09:05 Dose: 400 mg Al Hydroxide/Mg Hydroxide (Magnesium Hydrox/Alum Hydrox 30 Ml Oral.Susp) 30 ml PO Q6H PRN PRN Reason: Heartburn/Nausea Albuterol Sulfate (Albuterol Sulfate 90 Mcg 8 Gm Inhaler) 2 puff INHALE Q4H PRN PRN Reason: Dyspnea Allopurinol (Allopurinol 100 Mg Tablet) 100 mg PO DAILY [facility] Last Admin: 09/17/24 09:06 Dose: 100 mg Aspirin (Aspirin Enteric Coated 81 Mg Tablet.) 81 mg PO DAILY [facility] Last Admin: 09/17/24 09:05 Dose: 81 mg Calcium Carbonate (Calcium Carbonate 750 Mg Tab.Chew) 750 mg PO TID [facility] Last Admin: 09/17/24 09:06 Dose: 750 mg Clozapine (Clozapine 100 Mg Tablet) 300 mg PO BEDTIME [facility] Last Admin: 09/16/24 20:14 Dose: 300 mg Clozapine (Clozapine 25 Mg Tablet) 25 mg PO BID@0800,1500 [facility] Last Admin: 09/17/24 09:06 Dose: 25 mg Ferrous Sulfate (Ferrous Sulfate 324 Mg Tablet.) 324 mg PO DAILY [facility] Last Admin: 09/17/24 09:05 Dose: 324 mg Hydroxyzine HCl (Hydroxyzine Hcl 25 Mg Tablet) 25 mg PO Q6H PRN PRN Reason: Anxiety Last Admin: 09/15/24 20:53 Dose: 25 mg Loperamide HCl (Loperamide Hcl 2 Mg Capsule) 2 mg PO DAILY PRN PRN Reason: Diarrhea Last Admin: 08/24/24 14:42 Dose: 2 mg Loratadine (Loratadine 10 Mg Tablet) 10 mg PO BEDTIME [facility] Last Admin: 09/16/24 20:14 Dose: 10 mg Magnesium Hydroxide (Milk Of Magnesia 30 Ml Oral.Susp) 30 ml PO DAILY PRN PRN Reason: Constipation Pt Own (Lenalidomide (15 Mg)) 1 each PO DAILY [facility] Last Admin: 09/17/24 09:07 Dose: 1 each Omeprazole (Omeprazole 20 Mg Capsule.) 20 mg PO DAILY@0630 [facility] Last Admin: 09/17/24 05:12 Dose: 20 mg Ondansetron HCl (Ondansetron Odt 4 Mg Tab.Rapdis) 4 mg TRANSLINGU Q4H PRN PRN Reason: Nausea and Vomiting Last Admin: 08/28/24 20:33 Dose: 4 mg Senna (Sennosides 8.6 Mg Tablet) 17.2 mg PO DAILY PRN PRN Reason: constipation Sertraline HCl (Sertraline Hcl 50 Mg Tablet) 50 mg PO DAILY [facility] Last Admin: 09/17/24 09:06 Dose: 50 mg Vitamin D (Cholecalciferol (Vitamin D3) 25 Mcg Tablet) 50 mcg PO DAILY [facility] Last Admin: 09/17/24 09:06 Dose: 50 mcg Allergies Allergies Allergy/AdvReac Type Severity Reaction Status Date / Time No Known Allergies Allergy Verified 08/05/24 15:00 [No Known Allergies*] Assessment & Plan Assessment & Plan (1) Schizophrenia: Status: Acute Code(s): F20.9 - Schizophrenia, unspecified (2) Dementia: Status: Acute Code(s): F03.90 - Unspecified dementia, unspecified severity, without behavioral disturbance, psychotic disturbance, mood disturbance, and anxiety Plan The patient is an elderly female with a past history of schizophrenia on Clozaril chronically psychotic who was admitted from the community since she was paranoid against her caregivers. Plan 1. Clozaril was been titrated from 200 mg they to 350 mg daily with no evidence of over-sedation or side-effects. We are going to keep it on the same dose. 2. Referral to long-term care since the patient still paranoid against her granddaughter. 3. Continue with medical workout. 4. Affirmation of the healthcare proxy procedure for placement. Reason for continued inpatient stay Substantial Risk for: inability to function, rapid decompensation and med/psych decompensation Time Spent With Patient Time: Total time managing care of this patient today __20__ minutes.
[2024-09-17 13:29] VITALS: BMI 27.7
[2024-09-17] MEDS: cloZAPine 100 MG TABLET 300 MG PO (19:51)
[2024-09-17] MEDS: Loratadine 10 MG TABLET PO (19:51)
[2024-09-17 20:04] VITALS: BP 109/59; PULSE 82; RESP 16; TEMP 36.8; O2SAT 99
[2024-09-18] MEDS: Omeprazole 20 MG CAPSULE.DR PO (06:01)
[2024-09-18 08:00] VITALS: BP 142/74; PULSE 90; RESP 18; TEMP 36.1; O2SAT 100
[2024-09-18] MEDS: Sertraline HCL 50 MG TABLET PO (08:53)
[2024-09-18] MEDS: Ferrous Sulfate 324 MG TABLET.DR PO (08:53)
[2024-09-18] MEDS: Calcium Carbonate 750 MG TAB.CHEW PO ×3 (08:53→20:40)
[2024-09-18] MEDS: allopurinoL 100 MG TABLET PO (08:53)
[2024-09-18] MEDS: Aspirin Enteric Coated 81 MG TABLET.DR PO (08:54)
[2024-09-18] MEDS: Acyclovir 200 MG CAPSULE 400 MG PO (08:54)
[2024-09-18] MEDS: cloZAPine 25 MG TABLET PO ×2 (08:54→14:13)
[2024-09-18] MEDS: Cholecalciferol (Vitamin D3) 25 MCG TABLET 50 MCG PO (08:54)
[2024-09-18] MEDS: LENALIDOMIDE 15 MG 1 EACH PO (08:55)
--- NOTE | 2024-09-18 09:21 | HO.PSYCHPN ---
Subjective Subjective Date of Service: 09/18/24 Reason For Visit: paranoia Subjective Notes: Conditional Voluntary Interim History: Pt slept through the night. She poverty of thought and usually avoid conversation with others. She denies any concerns and then tells this junior underwriter (politely) you can go now. when asked if she does not want to talk anymore she smiles and says no. Internally preoccupied at baseline. She is eating well. Sent communication to her oncologist Dr. Veloz as pt has missed 2 chemo txs and may be on the unit for longer period of time for placement. Will resume tx, billing issues appear to be non existent. Review of Systems Review of Systems Loose stool Yes all other systems are reviewed and are negative and Unobtainable due to mental status Mental Status Exam Mental Status Exam Narrative: Appearance: wearing casual clothing, fair hygine, in NAD Behavior: guarded, somewhat dismissive but polite Psychomotor: no retardation or agitation noted Speech: clear, latency noted, minimally spontaneous TP: poverty of thought, thought blocking TC: wanting to be left alone Mood: okay Affect: constricted SI: denies HI: denies VH/AH: internally preoccupied Delusions: guarded suspicious, cap gras delusions Insight/judgment: impaired x 2. memory/cog: alert, not oriented to month situation nor year. Diagnostics Vital Signs (24Hr): Vital Signs - 24 hr 09/17/24 20:04 Temperature 98.2 F Pulse Rate 82 Respiratory Rate 16 Blood Pressure 109/59 L Pulse Oximetry 99 Oxygen Delivery Method Room Air BMI result Body Mass Index 27.7 Labs 09/13/24 08:17 09/13/24 08:17 Imaging Radiology Impressions: ITS Impressions Chest X-Ray 08/05/24 15:34 IMPRESSION: No active pulmonary disease. Electronically signed by: Derrell Marti MD 08/05/2024 03:58 PM [facility] Medications Medications Current Medications Acetaminophen (Acetaminophen 325 Mg Tablet) 650 mg PO Q6H PRN PRN Reason: Headache/Pain Mild Scale (1-3) Acyclovir (Acyclovir 200 Mg Capsule) 400 mg PO DAILY [facility] Last Admin: 09/18/24 08:54 Dose: 400 mg Al Hydroxide/Mg Hydroxide (Magnesium Hydrox/Alum Hydrox 30 Ml Oral.Susp) 30 ml PO Q6H PRN PRN Reason: Heartburn/Nausea Albuterol Sulfate (Albuterol Sulfate 90 Mcg 8 Gm Inhaler) 2 puff INHALE Q4H PRN PRN Reason: Dyspnea Allopurinol (Allopurinol 100 Mg Tablet) 100 mg PO DAILY [facility] Last Admin: 09/18/24 08:53 Dose: 100 mg Aspirin (Aspirin Enteric Coated 81 Mg Tablet.) 81 mg PO DAILY [facility] Last Admin: 09/18/24 08:54 Dose: 81 mg Calcium Carbonate (Calcium Carbonate 750 Mg Tab.Chew) 750 mg PO TID [facility] Last Admin: 09/18/24 08:53 Dose: 750 mg Clozapine (Clozapine 100 Mg Tablet) 300 mg PO BEDTIME [facility] Last Admin: 09/17/24 19:51 Dose: 300 mg Clozapine (Clozapine 25 Mg Tablet) 25 mg PO BID@0800,1500 [facility] Last Admin: 09/18/24 08:54 Dose: 25 mg Ferrous Sulfate (Ferrous Sulfate 324 Mg Tablet.) 324 mg PO DAILY [facility] Last Admin: 09/18/24 08:53 Dose: 324 mg Hydroxyzine HCl (Hydroxyzine Hcl 25 Mg Tablet) 25 mg PO Q6H PRN PRN Reason: Anxiety Last Admin: 09/15/24 20:53 Dose: 25 mg Loperamide HCl (Loperamide Hcl 2 Mg Capsule) 2 mg PO DAILY PRN PRN Reason: Diarrhea Last Admin: 08/24/24 14:42 Dose: 2 mg Loratadine (Loratadine 10 Mg Tablet) 10 mg PO BEDTIME [facility] Last Admin: 09/17/24 19:51 Dose: 10 mg Magnesium Hydroxide (Milk Of Magnesia 30 Ml Oral.Susp) 30 ml PO DAILY PRN PRN Reason: Constipation Pt Own (Lenalidomide (15 Mg)) 1 each PO DAILY [facility] Last Admin: 09/18/24 08:55 Dose: 1 each Omeprazole (Omeprazole 20 Mg Capsule.) 20 mg PO DAILY@0630 [facility] Last Admin: 09/18/24 06:01 Dose: 20 mg Ondansetron HCl (Ondansetron Odt 4 Mg Tab.Rapdis) 4 mg TRANSLINGU Q4H PRN PRN Reason: Nausea and Vomiting Last Admin: 08/28/24 20:33 Dose: 4 mg Senna (Sennosides 8.6 Mg Tablet) 17.2 mg PO DAILY PRN PRN Reason: constipation Sertraline HCl (Sertraline Hcl 50 Mg Tablet) 50 mg PO DAILY [facility] Last Admin: 09/18/24 08:53 Dose: 50 mg Vitamin D (Cholecalciferol (Vitamin D3) 25 Mcg Tablet) 50 mcg PO DAILY [facility] Last Admin: 09/18/24 08:54 Dose: 50 mcg Allergies Allergies Allergy/AdvReac Type Severity Reaction Status Date / Time No Known Allergies Allergy Verified 08/05/24 15:00 [No Known Allergies*] Assessment & Plan Assessment & Plan (1) Schizophrenia: Status: Acute Code(s): F20.9 - Schizophrenia, unspecified (2) Dementia: Status: Acute Code(s): F03.90 - Unspecified dementia, unspecified severity, without behavioral disturbance, psychotic disturbance, mood disturbance, and anxiety Plan The patient is an elderly female with a past history of schizophrenia on Clozaril chronically psychotic who was admitted from the community since she was paranoid against her caregivers. Plan 09/18 continue tx. coordination with oncology Dr. Veloz to resume tx for multiple myeloma while inpt (question of billing issues, resolved). Reason for continued inpatient stay Substantial Risk for: inability to function Time Spent With Patient Time: Total time managing care of this patient today ____ minutes.
[2024-09-18 10:05] VITALS: BMI 28.1
[2024-09-18 20:00] VITALS: BP 114/55; PULSE 86; RESP 18; TEMP 36.8; O2SAT 100
[2024-09-18] MEDS: Loratadine 10 MG TABLET PO (20:40)
[2024-09-18] MEDS: cloZAPine 100 MG TABLET 300 MG PO (20:40)
[2024-09-19] MEDS: Omeprazole 20 MG CAPSULE.DR PO (06:18)
[2024-09-19 08:00] VITALS: BP 121/57; PULSE 100; RESP 16; TEMP 36.1; O2SAT 100
[2024-09-19] MEDS: Aspirin Enteric Coated 81 MG TABLET.DR PO (08:41)
[2024-09-19] MEDS: Sertraline HCL 50 MG TABLET PO (08:42)
[2024-09-19] MEDS: Cholecalciferol (Vitamin D3) 25 MCG TABLET 50 MCG PO (08:42)
[2024-09-19] MEDS: Calcium Carbonate 750 MG TAB.CHEW PO ×3 (08:42→20:17)
[2024-09-19] MEDS: Acyclovir 200 MG CAPSULE 400 MG PO (08:42)
[2024-09-19] MEDS: allopurinoL 100 MG TABLET PO (08:42)
[2024-09-19] MEDS: cloZAPine 25 MG TABLET PO ×2 (08:42→14:44)
[2024-09-19] MEDS: Ferrous Sulfate 324 MG TABLET.DR PO (08:42)
[2024-09-19] MEDS: LENALIDOMIDE 15 MG 1 EACH PO (08:47)
--- NOTE | 2024-09-19 19:04 | HO.PSYCHPN ---
Subjective Subjective Date of Service: 09/19/24 Reason For Visit: paranoia Subjective Notes: Conditional Voluntary Interim History: Pt slept through the night. She is guarded and quickly dismisses lead technical writer, denying any concerns. She is visible for meals. She declines any medical treatment or leaving unit. No capacity to make medical decisions. No behavioral concerns. Review of Systems Review of Systems Loose stool Yes all other systems are reviewed and are negative and Unobtainable due to mental status Mental Status Exam Mental Status Exam Narrative: Appearance: wearing casual clothing, fair hygine, in NAD Behavior: guarded, somewhat dismissive but polite Psychomotor: no retardation or agitation noted Speech: clear, latency noted, minimally spontaneous TP: poverty of thought, thought blocking TC: wanting to be left alone Mood: okay Affect: constricted SI: denies HI: denies VH/AH: internally preoccupied Delusions: guarded suspicious, cap gras delusions Insight/judgment: impaired x 2. memory/cog: alert, not oriented to month situation nor year. Diagnostics Vital Signs (24Hr): Vital Signs - 24 hr 09/18/24 20:00 09/19/24 08:00 Temperature 98.2 F 97 F Pulse Rate 86 100 Respiratory Rate 18 16 Blood Pressure 114/55 L 121/57 L Pulse Oximetry 100 100 Oxygen Delivery Method Room Air Room Air BMI result Body Mass Index 28.1 Labs 09/13/24 08:17 09/13/24 08:17 Imaging Radiology Impressions: ITS Impressions Chest X-Ray 08/05/24 15:34 IMPRESSION: No active pulmonary disease. Electronically signed by: Derrell Marti MD 08/05/2024 03:[address] [facility] Medications Medications Current Medications Acetaminophen (Acetaminophen 325 Mg Tablet) 650 mg PO Q6H PRN PRN Reason: Headache/Pain Mild Scale (1-3) Acyclovir (Acyclovir 200 Mg Capsule) 400 mg PO DAILY [facility] Last Admin: 09/19/24 08:42 Dose: 400 mg Al Hydroxide/Mg Hydroxide (Magnesium Hydrox/Alum Hydrox 30 Ml Oral.Susp) 30 ml PO Q6H PRN PRN Reason: Heartburn/Nausea Albuterol Sulfate (Albuterol Sulfate 90 Mcg 8 Gm Inhaler) 2 puff INHALE Q4H PRN PRN Reason: Dyspnea Allopurinol (Allopurinol 100 Mg Tablet) 100 mg PO DAILY [facility] Last Admin: 09/19/24 08:42 Dose: 100 mg Aspirin (Aspirin Enteric Coated 81 Mg Tablet.) 81 mg PO DAILY [facility] Last Admin: 09/19/24 08:41 Dose: 81 mg Calcium Carbonate (Calcium Carbonate 750 Mg Tab.Chew) 750 mg PO TID [facility] Last Admin: 09/19/24 14:44 Dose: 750 mg Clozapine (Clozapine 100 Mg Tablet) 300 mg PO BEDTIME [facility] Last Admin: 09/18/24 20:40 Dose: 300 mg Clozapine (Clozapine 25 Mg Tablet) 25 mg PO BID@0800,1500 [facility] Last Admin: 09/19/24 14:44 Dose: 25 mg Ferrous Sulfate (Ferrous Sulfate 324 Mg Tablet.) 324 mg PO DAILY [facility] Last Admin: 09/19/24 08:42 Dose: 324 mg Hydroxyzine HCl (Hydroxyzine Hcl 25 Mg Tablet) 25 mg PO Q6H PRN PRN Reason: Anxiety Last Admin: 09/15/24 20:53 Dose: 25 mg Loperamide HCl (Loperamide Hcl 2 Mg Capsule) 2 mg PO DAILY PRN PRN Reason: Diarrhea Last Admin: 08/24/24 14:42 Dose: 2 mg Loratadine (Loratadine 10 Mg Tablet) 10 mg PO BEDTIME [facility] Last Admin: 09/18/24 20:40 Dose: 10 mg Magnesium Hydroxide (Milk Of Magnesia 30 Ml Oral.Susp) 30 ml PO DAILY PRN PRN Reason: Constipation Pt Own (Lenalidomide (15 Mg)) 1 each PO DAILY [facility] Last Admin: 09/19/24 08:47 Dose: 1 each Omeprazole (Omeprazole 20 Mg Capsule.) 20 mg PO DAILY@0630 [facility] Last Admin: 09/19/24 06:18 Dose: 20 mg Ondansetron HCl (Ondansetron Odt 4 Mg Tab.Rapdis) 4 mg TRANSLINGU Q4H PRN PRN Reason: Nausea and Vomiting Last Admin: 08/28/24 20:33 Dose: 4 mg Senna (Sennosides 8.6 Mg Tablet) 17.2 mg PO DAILY PRN PRN Reason: constipation Sertraline HCl (Sertraline Hcl 50 Mg Tablet) 50 mg PO DAILY [facility] Last Admin: 09/19/24 08:42 Dose: 50 mg Vitamin D (Cholecalciferol (Vitamin D3) 25 Mcg Tablet) 50 mcg PO DAILY [facility] Last Admin: 09/19/24 08:42 Dose: 50 mcg Allergies Allergies Allergy/AdvReac Type Severity Reaction Status Date / Time No Known Allergies Allergy Verified 08/05/24 15:00 [No Known Allergies*] Assessment & Plan Assessment & Plan (1) Schizophrenia: Status: Acute Code(s): F20.9 - Schizophrenia, unspecified (2) Dementia: Status: Acute Code(s): F03.90 - Unspecified dementia, unspecified severity, without behavioral disturbance, psychotic disturbance, mood disturbance, and anxiety Plan The patient is an elderly female with a past history of schizophrenia on Clozaril chronically psychotic who was admitted from the community since she was paranoid against her caregivers. Plan 09/18 continue tx. coordination with oncology Dr. Veloz to resume tx for multiple myeloma while inpt (question of billing issues, resolved). 09/19 continue tx. Reason for continued inpatient stay Substantial Risk for: inability to function Time Spent With Patient Time: Total time managing care of this patient today ____ minutes.
[2024-09-19 20:00] VITALS: BP 109/61; PULSE 90; RESP 18; TEMP 36.6; O2SAT 99
[2024-09-19] MEDS: cloZAPine 100 MG TABLET 300 MG PO (20:16)
[2024-09-19] MEDS: Loratadine 10 MG TABLET PO (20:17)
[2024-09-20] MEDS: Omeprazole 20 MG CAPSULE.DR PO (06:12)
[2024-09-20 07:54] VITALS: BP 108/62; PULSE 80; RESP 16; TEMP 36.1; O2SAT 100
[2024-09-20] MEDS: Calcium Carbonate 750 MG TAB.CHEW PO ×3 (08:48→20:06)
[2024-09-20] MEDS: cloZAPine 25 MG TABLET PO ×2 (08:48→14:51)
[2024-09-20] MEDS: Acyclovir 200 MG CAPSULE 400 MG PO (08:48)
[2024-09-20] MEDS: Cholecalciferol (Vitamin D3) 25 MCG TABLET 50 MCG PO (08:48)
[2024-09-20] MEDS: Ferrous Sulfate 324 MG TABLET.DR PO (08:48)
[2024-09-20] MEDS: allopurinoL 100 MG TABLET PO (08:48)
[2024-09-20] MEDS: Sertraline HCL 50 MG TABLET PO (08:49)
[2024-09-20] MEDS: LENALIDOMIDE 15 MG 1 EACH PO (08:49)
[2024-09-20] MEDS: Aspirin Enteric Coated 81 MG TABLET.DR PO (08:49)
--- NOTE | 2024-09-20 18:19 | P.PNPSI_ITS ---
Subjective Subjective Date of Service: 09/20/24 Reason For Visit: paranoia Interim History: Pt slept through the night. 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 She is visible for meals. She declines any medical treatment or leaving unit. No capacity to make medical decisions. No behavioral concerns. visible for meals. Review of Systems Review of Systems Loose stool Yes all other systems are reviewed and are negative and Unobtainable due to mental status Mental Status Exam Mental Status Exam Narrative: Appearance: wearing casual clothing, fair hygine, in NAD Behavior: guarded, somewhat dismissive but polite Psychomotor: no retardation or agitation noted Speech: clear, latency noted, minimally spontaneous TP: poverty of thought, thought blocking TC: wanting to be left alone Mood: okay Affect: constricted SI: denies HI: denies VH/AH: internally preoccupied Delusions: guarded suspicious, cap gras delusions Insight/judgment: impaired x 2. memory/cog: alert, not oriented to month situation nor year. Diagnostics Vital Signs (24Hr): Vital Signs - 24 hr 09/19/24 20:00 09/20/24 07:54 Temperature 98 F 97.0 F Pulse Rate 90 80 Respiratory Rate 18 16 Blood Pressure 109/61 108/62 Pulse Oximetry 99 100 Oxygen Delivery Method Room Air Room Air BMI result Body Mass Index 28.1 Labs 09/13/24 08:17 09/13/24 08:17 Imaging Radiology Impressions: ITS Impressions Chest X-Ray 08/05/24 15:34 IMPRESSION: No active pulmonary disease. Electronically signed by: Derrell Marti MD 08/05/2024 03:58 PM [facility] Medications Medications Current Medications Acetaminophen (Acetaminophen 325 Mg Tablet) 650 mg PO Q6H PRN PRN Reason: Headache/Pain Mild Scale (1-3) Acyclovir (Acyclovir 200 Mg Capsule) 400 mg PO DAILY [facility] Last Admin: 09/20/24 08:48 Dose: 400 mg Al Hydroxide/Mg Hydroxide (Magnesium Hydrox/Alum Hydrox 30 Ml Oral.Susp) 30 ml PO Q6H PRN PRN Reason: Heartburn/Nausea Albuterol Sulfate (Albuterol Sulfate 90 Mcg 8 Gm Inhaler) 2 puff INHALE Q4H PRN PRN Reason: Dyspnea Allopurinol (Allopurinol 100 Mg Tablet) 100 mg PO DAILY [facility] Last Admin: 09/20/24 08:48 Dose: 100 mg Aspirin (Aspirin Enteric Coated 81 Mg Tablet.) 81 mg PO DAILY [facility] Last Admin: 09/20/24 08:49 Dose: 81 mg Calcium Carbonate (Calcium Carbonate 750 Mg Tab.Chew) 750 mg PO TID [facility] Last Admin: 09/20/24 14:51 Dose: 750 mg Clozapine (Clozapine 100 Mg Tablet) 300 mg PO BEDTIME [facility] Last Admin: 09/19/24 20:16 Dose: 300 mg Clozapine (Clozapine 25 Mg Tablet) 25 mg PO BID@0800,1500 [facility] Last Admin: 09/20/24 14:51 Dose: 25 mg Ferrous Sulfate (Ferrous Sulfate 324 Mg Tablet.) 324 mg PO DAILY [facility] Last Admin: 09/20/24 08:48 Dose: 324 mg Hydroxyzine HCl (Hydroxyzine Hcl 25 Mg Tablet) 25 mg PO Q6H PRN PRN Reason: Anxiety Last Admin: 09/15/24 20:53 Dose: 25 mg Loperamide HCl (Loperamide Hcl 2 Mg Capsule) 2 mg PO DAILY PRN PRN Reason: Diarrhea Last Admin: 08/24/24 14:42 Dose: 2 mg Loratadine (Loratadine 10 Mg Tablet) 10 mg PO BEDTIME [facility] Last Admin: 09/19/24 20:17 Dose: 10 mg Magnesium Hydroxide (Milk Of Magnesia 30 Ml Oral.Susp) 30 ml PO DAILY PRN PRN Reason: Constipation Pt Own (Lenalidomide (15 Mg)) 1 each PO DAILY [facility] Last Admin: 09/20/24 08:49 Dose: 1 each Omeprazole (Omeprazole 20 Mg Capsule.) 20 mg PO DAILY@0630 [facility] Last Admin: 09/20/24 06:12 Dose: 20 mg Ondansetron HCl (Ondansetron Odt 4 Mg Tab.Rapdis) 4 mg TRANSLINGU Q4H PRN PRN Reason: Nausea and Vomiting Last Admin: 08/28/24 20:33 Dose: 4 mg Senna (Sennosides 8.6 Mg Tablet) 17.2 mg PO DAILY PRN PRN Reason: constipation Sertraline HCl (Sertraline Hcl 50 Mg Tablet) 50 mg PO DAILY [facility] Last Admin: 09/20/24 08:49 Dose: 50 mg Vitamin D (Cholecalciferol (Vitamin D3) 25 Mcg Tablet) 50 mcg PO DAILY [facility] Last Admin: 09/20/24 08:48 Dose: 50 mcg Allergies Allergies Allergy/AdvReac Type Severity Reaction Status Date / Time No Known Allergies Allergy Verified 08/05/24 15:00 [No Known Allergies*] Assessment & Plan Assessment & Plan (1) Schizophrenia: Status: Acute Code(s): F20.9 - Schizophrenia, unspecified (2) Dementia: Status: Acute Code(s): F03.90 - Unspecified dementia, unspecified severity, without behavioral disturbance, psychotic disturbance, mood disturbance, and anxiety Plan The patient is an elderly female with a past history of schizophrenia on Clozaril chronically psychotic who was admitted from the community since she was paranoid against her caregivers. Plan 09/18 continue tx. coordination with oncology Dr. Veloz to resume tx for multiple myeloma while inpt (question of billing issues, resolved). 09/19 continue tx 09/20 continue tx Reason for continued inpatient stay Substantial Risk for: inability to function Time Spent With Patient Time: Total time managing care of this patient today ____ minutes.
[2024-09-20 20:00] VITALS: BP 107/57; PULSE 81; RESP 16; TEMP 36.1; O2SAT 99
[2024-09-20] MEDS: cloZAPine 100 MG TABLET 300 MG PO (20:06)
[2024-09-20] MEDS: Loratadine 10 MG TABLET PO (20:06)
[2024-09-21] MEDS: Omeprazole 20 MG CAPSULE.DR PO (05:58)
[2024-09-21 10:35] VITALS: BP 108/56; PULSE 84; RESP 16; TEMP 36.8; O2SAT 100
[2024-09-21] MEDS: Aspirin Enteric Coated 81 MG TABLET.DR PO (10:36)
[2024-09-21] MEDS: allopurinoL 100 MG TABLET PO (10:37)
[2024-09-21] MEDS: Calcium Carbonate 750 MG TAB.CHEW PO ×3 (10:37→19:48)
[2024-09-21] MEDS: Cholecalciferol (Vitamin D3) 25 MCG TABLET 50 MCG PO (10:37)
[2024-09-21] MEDS: Ferrous Sulfate 324 MG TABLET.DR PO (10:37)
[2024-09-21] MEDS: cloZAPine 25 MG TABLET PO ×2 (10:37→15:02)
[2024-09-21] MEDS: Acyclovir 200 MG CAPSULE 400 MG PO (10:37)
[2024-09-21] MEDS: LENALIDOMIDE 15 MG 1 EACH PO (10:38)
[2024-09-21] MEDS: Sertraline HCL 50 MG TABLET PO (10:38)
--- NOTE | 2024-09-21 12:17 | P.PNPSI_ITS ---
Subjective Subjective Date of Service: 09/21/24 Reason For Visit: paranoia Interim History: Pt slept through the night. 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 She is visible for meals. She declines any medical treatment or leaving unit. No capacity to make medical decisions. No behavioral concerns. visible for meals. Review of Systems Review of Systems Loose stool Yes all other systems are reviewed and are negative and Unobtainable due to mental status Mental Status Exam Mental Status Exam Narrative: Appearance: wearing casual clothing, fair hygine, in NAD Behavior: guarded, somewhat dismissive but polite Psychomotor: no retardation or agitation noted Speech: clear, latency noted, minimally spontaneous TP: poverty of thought, thought blocking TC: wanting to be left alone Mood: okay Affect: constricted SI: denies HI: denies VH/AH: internally preoccupied Delusions: guarded suspicious, cap gras delusions Insight/judgment: impaired x 2. memory/cog: alert, not oriented to month situation nor year. Diagnostics Vital Signs (24Hr): Vital Signs - 24 hr 09/20/24 20:00 09/21/24 10:35 Temperature 97 F 98.2 F Pulse Rate 81 84 Respiratory Rate 16 16 Blood Pressure 107/57 L 108/56 L Pulse Oximetry 99 100 Oxygen Delivery Method Room Air Room Air BMI result Body Mass Index 28.1 Labs 09/13/24 08:17 09/13/24 08:17 Imaging Radiology Impressions: ITS Impressions Chest X-Ray 08/05/24 15:34 IMPRESSION: No active pulmonary disease. Electronically signed by: Derrell Marti MD 08/05/2024 03:58 PM [facility] Medications Medications Current Medications Acetaminophen (Acetaminophen 325 Mg Tablet) 650 mg PO Q6H PRN PRN Reason: Headache/Pain Mild Scale (1-3) Acyclovir (Acyclovir 200 Mg Capsule) 400 mg PO DAILY [facility] Last Admin: 09/21/24 10:37 Dose: 400 mg Al Hydroxide/Mg Hydroxide (Magnesium Hydrox/Alum Hydrox 30 Ml Oral.Susp) 30 ml PO Q6H PRN PRN Reason: Heartburn/Nausea Albuterol Sulfate (Albuterol Sulfate 90 Mcg 8 Gm Inhaler) 2 puff INHALE Q4H PRN PRN Reason: Dyspnea Allopurinol (Allopurinol 100 Mg Tablet) 100 mg PO DAILY [facility] Last Admin: 09/21/24 10:37 Dose: 100 mg Aspirin (Aspirin Enteric Coated 81 Mg Tablet.) 81 mg PO DAILY [facility] Last Admin: 09/21/24 10:36 Dose: 81 mg Calcium Carbonate (Calcium Carbonate 750 Mg Tab.Chew) 750 mg PO TID [facility] Last Admin: 09/21/24 10:37 Dose: 750 mg Clozapine (Clozapine 100 Mg Tablet) 300 mg PO BEDTIME [facility] Last Admin: 09/20/24 20:06 Dose: 300 mg Clozapine (Clozapine 25 Mg Tablet) 25 mg PO BID@0800,1500 [facility] Last Admin: 09/21/24 10:37 Dose: 25 mg Ferrous Sulfate (Ferrous Sulfate 324 Mg Tablet.) 324 mg PO DAILY [facility] Last Admin: 09/21/24 10:37 Dose: 324 mg Hydroxyzine HCl (Hydroxyzine Hcl 25 Mg Tablet) 25 mg PO Q6H PRN PRN Reason: Anxiety Last Admin: 09/15/24 20:53 Dose: 25 mg Loperamide HCl (Loperamide Hcl 2 Mg Capsule) 2 mg PO DAILY PRN PRN Reason: Diarrhea Last Admin: 08/24/24 14:42 Dose: 2 mg Loratadine (Loratadine 10 Mg Tablet) 10 mg PO BEDTIME [facility] Last Admin: 09/20/24 20:06 Dose: 10 mg Magnesium Hydroxide (Milk Of Magnesia 30 Ml Oral.Susp) 30 ml PO DAILY PRN PRN Reason: Constipation Pt Own (Lenalidomide (15 Mg)) 1 each PO DAILY [facility] Last Admin: 09/21/24 10:38 Dose: 1 each Omeprazole (Omeprazole 20 Mg Capsule.) 20 mg PO DAILY@0630 [facility] Last Admin: 09/21/24 05:58 Dose: 20 mg Ondansetron HCl (Ondansetron Odt 4 Mg Tab.Rapdis) 4 mg TRANSLINGU Q4H PRN PRN Reason: Nausea and Vomiting Last Admin: 08/28/24 20:33 Dose: 4 mg Senna (Sennosides 8.6 Mg Tablet) 17.2 mg PO DAILY PRN PRN Reason: constipation Sertraline HCl (Sertraline Hcl 50 Mg Tablet) 50 mg PO DAILY [facility] Last Admin: 09/21/24 10:38 Dose: 50 mg Vitamin D (Cholecalciferol (Vitamin D3) 25 Mcg Tablet) 50 mcg PO DAILY [facility] Last Admin: 09/21/24 10:37 Dose: 50 mcg Allergies Allergies Allergy/AdvReac Type Severity Reaction Status Date / Time No Known Allergies Allergy Verified 08/05/24 15:00 [No Known Allergies*] Assessment & Plan Assessment & Plan (1) Schizophrenia: Status: Acute Code(s): F20.9 - Schizophrenia, unspecified (2) Dementia: Status: Acute Code(s): F03.90 - Unspecified dementia, unspecified severity, without behavioral disturbance, psychotic disturbance, mood disturbance, and anxiety Plan The patient is an elderly female with a past history of schizophrenia on Clozaril chronically psychotic who was admitted from the community since she was paranoid against her caregivers. Plan 09/18 continue tx. coordination with oncology Dr. Veloz to resume tx for multiple myeloma while inpt (question of billing issues, resolved). 09/19 continue tx 09/20 continue tx 09/21 continue tx. Reason for continued inpatient stay Substantial Risk for: inability to function Time Spent With Patient Time: Total time managing care of this patient today ____ minutes.
[2024-09-21 19:21] VITALS: BP 96/56; PULSE 82; RESP 16; TEMP 36.3; O2SAT 100
[2024-09-21] MEDS: Loratadine 10 MG TABLET PO (19:48)
[2024-09-21] MEDS: cloZAPine 100 MG TABLET 300 MG PO (19:48)
[2024-09-22] MEDS: Omeprazole 20 MG CAPSULE.DR PO (05:56)
[2024-09-22 08:00] VITALS: BP 97/60; PULSE 88; RESP 16; TEMP 36.2; O2SAT 99
[2024-09-22] MEDS: Acyclovir 200 MG CAPSULE 400 MG PO (09:01)
[2024-09-22] MEDS: LENALIDOMIDE 15 MG 1 EACH PO (09:01)
[2024-09-22] MEDS: Cholecalciferol (Vitamin D3) 25 MCG TABLET 50 MCG PO (09:01)
[2024-09-22] MEDS: allopurinoL 100 MG TABLET PO (09:02)
[2024-09-22] MEDS: Sertraline HCL 50 MG TABLET PO (09:05)
[2024-09-22] MEDS: Calcium Carbonate 750 MG TAB.CHEW PO ×3 (09:05→20:09)
[2024-09-22] MEDS: cloZAPine 25 MG TABLET PO ×2 (09:05→15:11)
[2024-09-22] MEDS: Aspirin Enteric Coated 81 MG TABLET.DR PO (09:06)
[2024-09-22] MEDS: Ferrous Sulfate 324 MG TABLET.DR PO (09:06)
--- NOTE | 2024-09-22 10:14 | HO.PSYCHPN ---
Subjective Subjective Date of Service: 09/22/24 Reason For Visit: paranoia Interim History: Pt slept through the night. She is guarded and quickly dismisses tag writer, denying any concerns. She is visible for meals. She declines any medical treatment or leaving unit. No capacity to make medical decisions. No behavioral concerns. visible for meals. Review of Systems Review of Systems Loose stool Yes all other systems are reviewed and are negative and Unobtainable due to mental status Mental Status Exam Mental Status Exam Narrative: Appearance: wearing casual clothing, fair hygine, in NAD Behavior: guarded, somewhat dismissive but polite Psychomotor: no retardation or agitation noted Speech: clear, latency noted, minimally spontaneous TP: poverty of thought, thought blocking TC: wanting to be left alone Mood: okay Affect: constricted SI: denies HI: denies VH/AH: internally preoccupied Delusions: guarded suspicious, cap gras delusions Insight/judgment: impaired x 2. memory/cog: alert, not oriented to month situation nor year. Diagnostics Vital Signs (24Hr): Vital Signs - 24 hr 09/21/24 10:35 09/21/24 19:21 Temperature 98.2 F 97.3 F Pulse Rate 84 82 Respiratory Rate 16 16 Blood Pressure 108/56 L 96/56 L Pulse Oximetry 100 100 Oxygen Delivery Method Room Air Room Air BMI result Body Mass Index 28.1 Labs 09/13/24 08:17 09/13/24 08:17 Imaging Radiology Impressions: ITS Impressions Chest X-Ray 08/05/24 15:34 IMPRESSION: No active pulmonary disease. Electronically signed by: Derrell Marti MD 08/05/2024 03:58 PM [facility] [place] Medications Medications Current Medications Acetaminophen (Acetaminophen 325 Mg Tablet) 650 mg PO Q6H PRN PRN Reason: Headache/Pain Mild Scale (1-3) Acyclovir (Acyclovir 200 Mg Capsule) 400 mg PO DAILY [facility] Last Admin: 09/22/24 09:01 Dose: 400 mg Al Hydroxide/Mg Hydroxide (Magnesium Hydrox/Alum Hydrox 30 Ml Oral.Susp) 30 ml PO Q6H PRN PRN Reason: Heartburn/Nausea Albuterol Sulfate (Albuterol Sulfate 90 Mcg 8 Gm Inhaler) 2 puff INHALE Q4H PRN PRN Reason: Dyspnea Allopurinol (Allopurinol 100 Mg Tablet) 100 mg PO DAILY [facility] Last Admin: 09/22/24 09:02 Dose: 100 mg Aspirin (Aspirin Enteric Coated 81 Mg Tablet.) 81 mg PO DAILY [facility] Last Admin: 09/22/24 09:06 Dose: 81 mg Calcium Carbonate (Calcium Carbonate 750 Mg Tab.Chew) 750 mg PO TID [facility] Last Admin: 09/22/24 09:05 Dose: 750 mg Clozapine (Clozapine 100 Mg Tablet) 300 mg PO BEDTIME [facility] Last Admin: 09/21/24 19:48 Dose: 300 mg Clozapine (Clozapine 25 Mg Tablet) 25 mg PO BID@0800,1500 [facility] Last Admin: 09/22/24 09:05 Dose: 25 mg Ferrous Sulfate (Ferrous Sulfate 324 Mg Tablet.) 324 mg PO DAILY [facility] Last Admin: 09/22/24 09:06 Dose: 324 mg Hydroxyzine HCl (Hydroxyzine Hcl 25 Mg Tablet) 25 mg PO Q6H PRN PRN Reason: Anxiety Last Admin: 09/15/24 20:53 Dose: 25 mg Loperamide HCl (Loperamide Hcl 2 Mg Capsule) 2 mg PO DAILY PRN PRN Reason: Diarrhea Last Admin: 08/24/24 14:42 Dose: 2 mg Loratadine (Loratadine 10 Mg Tablet) 10 mg PO BEDTIME [facility] Last Admin: 09/21/24 19:48 Dose: 10 mg Magnesium Hydroxide (Milk Of Magnesia 30 Ml Oral.Susp) 30 ml PO DAILY PRN PRN Reason: Constipation Pt Own (Lenalidomide (15 Mg)) 1 each PO DAILY [facility] Last Admin: 09/22/24 09:01 Dose: 1 each Omeprazole (Omeprazole 20 Mg Capsule.) 20 mg PO DAILY@0630 [facility] Last Admin: 09/22/24 05:56 Dose: 20 mg Ondansetron HCl (Ondansetron Odt 4 Mg Tab.Rapdis) 4 mg TRANSLINGU Q4H PRN PRN Reason: Nausea and Vomiting Last Admin: 08/28/24 20:33 Dose: 4 mg Senna (Sennosides 8.6 Mg Tablet) 17.2 mg PO DAILY PRN PRN Reason: constipation Sertraline HCl (Sertraline Hcl 50 Mg Tablet) 50 mg PO DAILY [facility] Last Admin: 09/22/24 09:05 Dose: 50 mg Vitamin D (Cholecalciferol (Vitamin D3) 25 Mcg Tablet) 50 mcg PO DAILY [facility] Last Admin: 09/22/24 09:01 Dose: 50 mcg Allergies Allergies Allergy/AdvReac Type Severity Reaction Status Date / Time No Known Allergies Allergy Verified 08/05/24 15:00 [No Known Allergies*] Assessment & Plan Assessment & Plan (1) Schizophrenia: Status: Acute Code(s): F20.9 - Schizophrenia, unspecified (2) Dementia: Status: Acute Code(s): F03.90 - Unspecified dementia, unspecified severity, without behavioral disturbance, psychotic disturbance, mood disturbance, and anxiety Plan The patient is an elderly female with a past history of schizophrenia on Clozaril chronically psychotic who was admitted from the community since she was paranoid against her caregivers. Plan 09/18 continue tx. coordination with oncology Dr. Veloz to resume tx for multiple myeloma while inpt (question of billing issues, resolved). 09/19 continue tx 09/20 continue tx 09/21 continue tx. 09/22 continue tx. Reason for continued inpatient stay Substantial Risk for: inability to function Time Spent With Patient Time: Total time managing care of this patient today ____ minutes.
[2024-09-22 20:00] VITALS: BP 103/61; PULSE 85; RESP 16; TEMP 36.1; O2SAT 99
[2024-09-22] MEDS: cloZAPine 100 MG TABLET 300 MG PO (20:09)
[2024-09-22] MEDS: Loratadine 10 MG TABLET PO (20:09)
[2024-09-23] MEDS: Omeprazole 20 MG CAPSULE.DR PO (06:37)
[2024-09-23 08:00] VITALS: BP 110/67; PULSE 91; RESP 16; O2SAT 97
[2024-09-23] MEDS: Acyclovir 200 MG CAPSULE 400 MG PO (08:31)
[2024-09-23] MEDS: Aspirin Enteric Coated 81 MG TABLET.DR PO (08:31)
[2024-09-23] MEDS: cloZAPine 25 MG TABLET PO ×2 (08:31→15:13)
[2024-09-23] MEDS: Cholecalciferol (Vitamin D3) 25 MCG TABLET 50 MCG PO (08:31)
[2024-09-23] MEDS: LENALIDOMIDE 15 MG 1 EACH PO (08:31)
[2024-09-23] MEDS: Calcium Carbonate 750 MG TAB.CHEW PO ×3 (08:31→20:44)
[2024-09-23] MEDS: Sertraline HCL 50 MG TABLET PO (08:32)
[2024-09-23] MEDS: Ferrous Sulfate 324 MG TABLET.DR PO (08:32)
[2024-09-23] MEDS: allopurinoL 100 MG TABLET PO (08:32)
[2024-09-23 08:37] LABS: Neut%MD 56.5 %; Neutrophils Absolute Auto 2.2 x10*3/uL (2.0-8.3); WBCANC 3.9 X10*3/uL
--- NOTE | 2024-09-23 12:35 | P.PNPSI_ITS ---
Subjective Subjective Date of Service: 09/23/24 Reason For Visit: paranoia Subjective Notes: Conditional Voluntary Healthcare Proxy: Yes Interim History: Pt slept through the night. 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 She is visible for meals. She declines any medical treatment or leaving unit. No capacity to make medical decisions. No behavioral concerns. visible for meals. Review of Systems Review of Systems Loose stool Yes all other systems are reviewed and are negative and Unobtainable due to mental status Mental Status Exam Mental Status Exam Narrative: Appearance: wearing casual clothing, fair hygine, in NAD Behavior: guarded, somewhat dismissive but polite Psychomotor: no retardation or agitation noted Speech: clear, latency noted, minimally spontaneous TP: poverty of thought, thought blocking TC: wanting to be left alone Mood: okay Affect: constricted SI: denies HI: denies VH/AH: internally preoccupied Delusions: guarded suspicious, cap gras delusions Insight/judgment: impaired x 2. memory/cog: alert, not oriented to month situation nor year. Diagnostics Vital Signs (24Hr): Vital Signs - 24 hr 09/22/24 20:00 09/23/24 08:00 Temperature 97 F Pulse Rate 85 91 Respiratory Rate 16 16 Blood Pressure 103/61 110/67 Pulse Oximetry 99 97 Oxygen Delivery Method Room Air Room Air BMI result Body Mass Index 28.1 Labs 09/13/24 08:17 09/13/24 08:17 Labs: Laboratory Results - last 48 hr 09/23/24 08:26 Absolute Neuts (auto) 2.2 Imaging Radiology Impressions: ITS Impressions Chest X-Ray 08/05/24 15:34 IMPRESSION: No active pulmonary disease. Electronically signed by: Derrell Marti MD 08/05/2024 03:58 PM [facility] Medications Medications Current Medications Acetaminophen (Acetaminophen 325 Mg Tablet) 650 mg PO Q6H PRN PRN Reason: Headache/Pain Mild Scale (1-3) Acyclovir (Acyclovir 200 Mg Capsule) 400 mg PO DAILY [facility] Last Admin: 09/23/24 08:31 Dose: 400 mg Al Hydroxide/Mg Hydroxide (Magnesium Hydrox/Alum Hydrox 30 Ml Oral.Susp) 30 ml PO Q6H PRN PRN Reason: Heartburn/Nausea Albuterol Sulfate (Albuterol Sulfate 90 Mcg 8 Gm Inhaler) 2 puff INHALE Q4H PRN PRN Reason: Dyspnea Allopurinol (Allopurinol 100 Mg Tablet) 100 mg PO DAILY [facility] Last Admin: 09/23/24 08:32 Dose: 100 mg Aspirin (Aspirin Enteric Coated 81 Mg Tablet.) 81 mg PO DAILY [facility] Last Admin: 09/23/24 08:31 Dose: 81 mg Calcium Carbonate (Calcium Carbonate 750 Mg Tab.Chew) 750 mg PO TID [facility] Last Admin: 09/23/24 08:31 Dose: 750 mg Clozapine (Clozapine 100 Mg Tablet) 300 mg PO BEDTIME [facility] Last Admin: 09/22/24 20:09 Dose: 300 mg Clozapine (Clozapine 25 Mg Tablet) 25 mg PO BID@0800,1500 [facility] Last Admin: 09/23/24 08:31 Dose: 25 mg Ferrous Sulfate (Ferrous Sulfate 324 Mg Tablet.) 324 mg PO DAILY [facility] Last Admin: 09/23/24 08:32 Dose: 324 mg Hydroxyzine HCl (Hydroxyzine Hcl 25 Mg Tablet) 25 mg PO Q6H PRN PRN Reason: Anxiety Last Admin: 09/15/24 20:53 Dose: 25 mg Loperamide HCl (Loperamide Hcl 2 Mg Capsule) 2 mg PO DAILY PRN PRN Reason: Diarrhea Last Admin: 08/24/24 14:42 Dose: 2 mg Loratadine (Loratadine 10 Mg Tablet) 10 mg PO BEDTIME [facility] Last Admin: 09/22/24 20:09 Dose: 10 mg Magnesium Hydroxide (Milk Of Magnesia 30 Ml Oral.Susp) 30 ml PO DAILY PRN PRN Reason: Constipation Pt Own (Lenalidomide (15 Mg)) 1 each PO DAILY [facility] Last Admin: 09/23/24 08:31 Dose: 1 each Omeprazole (Omeprazole 20 Mg Capsule.) 20 mg PO DAILY@0630 [facility] Last Admin: 09/23/24 06:37 Dose: 20 mg Ondansetron HCl (Ondansetron Odt 4 Mg Tab.Rapdis) 4 mg TRANSLINGU Q4H PRN PRN Reason: Nausea and Vomiting Last Admin: 08/28/24 20:33 Dose: 4 mg Senna (Sennosides 8.6 Mg Tablet) 17.2 mg PO DAILY PRN PRN Reason: constipation Sertraline HCl (Sertraline Hcl 50 Mg Tablet) 50 mg PO DAILY [facility] Last Admin: 09/23/24 08:32 Dose: 50 mg Vitamin D (Cholecalciferol (Vitamin D3) 25 Mcg Tablet) 50 mcg PO DAILY [facility] Last Admin: 09/23/24 08:31 Dose: 50 mcg Allergies Allergies Allergy/AdvReac Type Severity Reaction Status Date / Time No Known Allergies Allergy Verified 08/05/24 15:00 [No Known Allergies*] Assessment & Plan Assessment & Plan (1) Schizophrenia: Status: Acute Code(s): F20.9 - Schizophrenia, unspecified (2) Dementia: Status: Acute Code(s): F03.90 - Unspecified dementia, unspecified severity, without behavioral disturbance, psychotic disturbance, mood disturbance, and anxiety Plan The patient is an elderly female with a past history of schizophrenia on Clozaril chronically psychotic who was admitted from the community since she was paranoid against her caregivers. Plan 09/18 continue tx. coordination with oncology Dr. Veloz to resume tx for multiple myeloma while inpt (question of billing issues, resolved). 09/19 continue tx 09/20 continue tx 09/21 continue tx. 09/22 continue tx. 09/23 continue tx. Reason for continued inpatient stay Substantial Risk for: inability to function Time Spent With Patient Time: Total time managing care of this patient today ____ minutes.
[2024-09-23 19:59] VITALS: BP 99/61; PULSE 80; RESP 16; TEMP 36.4; O2SAT 100
[2024-09-23] MEDS: cloZAPine 100 MG TABLET 300 MG PO (20:44)
[2024-09-23] MEDS: Loratadine 10 MG TABLET PO (20:44)
[2024-09-24] MEDS: Omeprazole 20 MG CAPSULE.DR PO (06:10)
[2024-09-24 08:00] VITALS: BP 107/61; PULSE 85; RESP 16; TEMP 36.2; O2SAT 100
[2024-09-24] MEDS: Aspirin Enteric Coated 81 MG TABLET.DR PO (08:29)
[2024-09-24] MEDS: Acyclovir 200 MG CAPSULE 400 MG PO (08:29)
[2024-09-24] MEDS: cloZAPine 25 MG TABLET PO ×2 (08:29→14:41)
[2024-09-24] MEDS: Calcium Carbonate 750 MG TAB.CHEW PO ×3 (08:30→21:26)
[2024-09-24] MEDS: Sertraline HCL 50 MG TABLET PO (08:30)
[2024-09-24] MEDS: allopurinoL 100 MG TABLET PO (08:30)
[2024-09-24] MEDS: Ferrous Sulfate 324 MG TABLET.DR PO (08:30)
[2024-09-24] MEDS: Cholecalciferol (Vitamin D3) 25 MCG TABLET 50 MCG PO (08:30)
[2024-09-24] MEDS: LENALIDOMIDE 15 MG 1 EACH PO (08:37)
--- NOTE | 2024-09-24 16:48 | P.PNPSI_ITS ---
Subjective Subjective Date of Service: 09/24/24 Reason For Visit: paranoia Interim History: Pt slept through the night. She is guarded and quickly dismisses content writer, denying any concerns. She is visible for meals. She declines any medical treatment or leaving unit. No capacity to make medical decisions. No behavioral concerns. visible for meals. Review of Systems Review of Systems Loose stool Yes all other systems are reviewed and are negative and Unobtainable due to mental status Mental Status Exam Mental Status Exam Narrative: Appearance: wearing casual clothing, fair hygine, in NAD Behavior: guarded, somewhat dismissive but polite Psychomotor: no retardation or agitation noted Speech: clear, latency noted, minimally spontaneous TP: poverty of thought, thought blocking TC: wanting to be left alone Mood: okay Affect: constricted SI: denies HI: denies VH/AH: internally preoccupied Delusions: guarded suspicious, cap gras delusions Insight/judgment: impaired x 2. memory/cog: alert, not oriented to month situation nor year. Diagnostics Vital Signs (24Hr): Vital Signs - 24 hr 09/23/24 19:59 09/24/24 08:00 Temperature 97.6 F 97.2 F Pulse Rate 80 85 Respiratory Rate 16 16 Blood Pressure 99/61 107/61 Pulse Oximetry 100 100 Oxygen Delivery Method Room Air Room Air BMI result Body Mass Index 28.1 Labs 09/13/24 08:17 09/13/24 08:17 Labs: Laboratory Results - last 48 hr 09/23/24 08:26 Absolute Neuts (auto) 2.2 Imaging Radiology Impressions: ITS Impressions Chest X-Ray 08/05/24 15:34 IMPRESSION: No active pulmonary disease. Electronically signed by: Derrell Marti MD 08/05/2024 03:58 PM [facility] [place] Medications Medications Current Medications Acetaminophen (Acetaminophen 325 Mg Tablet) 650 mg PO Q6H PRN PRN Reason: Headache/Pain Mild Scale (1-3) Acyclovir (Acyclovir 200 Mg Capsule) 400 mg PO DAILY [facility] Last Admin: 09/24/24 08:29 Dose: 400 mg Al Hydroxide/Mg Hydroxide (Magnesium Hydrox/Alum Hydrox 30 Ml Oral.Susp) 30 ml PO Q6H PRN PRN Reason: Heartburn/Nausea Albuterol Sulfate (Albuterol Sulfate 90 Mcg 8 Gm Inhaler) 2 puff INHALE Q4H PRN PRN Reason: Dyspnea Allopurinol (Allopurinol 100 Mg Tablet) 100 mg PO DAILY [facility] Last Admin: 09/24/24 08:30 Dose: 100 mg Aspirin (Aspirin Enteric Coated 81 Mg Tablet.) 81 mg PO DAILY [facility] Last Admin: 09/24/24 08:29 Dose: 81 mg Calcium Carbonate (Calcium Carbonate 750 Mg Tab.Chew) 750 mg PO TID [facility] Last Admin: 09/24/24 14:41 Dose: 750 mg Clozapine (Clozapine 100 Mg Tablet) 300 mg PO BEDTIME [facility] Last Admin: 09/23/24 20:44 Dose: 300 mg Clozapine (Clozapine 25 Mg Tablet) 25 mg PO BID@0800,1500 [facility] Last Admin: 09/24/24 14:41 Dose: 25 mg Ferrous Sulfate (Ferrous Sulfate 324 Mg Tablet.) 324 mg PO DAILY [facility] Last Admin: 09/24/24 08:30 Dose: 324 mg Hydroxyzine HCl (Hydroxyzine Hcl 25 Mg Tablet) 25 mg PO Q6H PRN PRN Reason: Anxiety Last Admin: 09/15/24 20:53 Dose: 25 mg Loperamide HCl (Loperamide Hcl 2 Mg Capsule) 2 mg PO DAILY PRN PRN Reason: Diarrhea Last Admin: 08/24/24 14:42 Dose: 2 mg Loratadine (Loratadine 10 Mg Tablet) 10 mg PO BEDTIME [facility] Last Admin: 09/23/24 20:44 Dose: 10 mg Magnesium Hydroxide (Milk Of Magnesia 30 Ml Oral.Susp) 30 ml PO DAILY PRN PRN Reason: Constipation Pt Own (Lenalidomide (15 Mg)) 1 each PO DAILY [facility] Last Admin: 09/24/24 08:37 Dose: 1 each Omeprazole (Omeprazole 20 Mg Capsule.) 20 mg PO DAILY@0630 [facility] Last Admin: 09/24/24 06:10 Dose: 20 mg Ondansetron HCl (Ondansetron Odt 4 Mg Tab.Rapdis) 4 mg TRANSLINGU Q4H PRN PRN Reason: Nausea and Vomiting Last Admin: 08/28/24 20:33 Dose: 4 mg Senna (Sennosides 8.6 Mg Tablet) 17.2 mg PO DAILY PRN PRN Reason: constipation Sertraline HCl (Sertraline Hcl 50 Mg Tablet) 50 mg PO DAILY [facility] Last Admin: 09/24/24 08:30 Dose: 50 mg Vitamin D (Cholecalciferol (Vitamin D3) 25 Mcg Tablet) 50 mcg PO DAILY [facility] Last Admin: 09/24/24 08:30 Dose: 50 mcg Allergies Allergies Allergy/AdvReac Type Severity Reaction Status Date / Time No Known Allergies Allergy Verified 08/05/24 15:00 [No Known Allergies*] Assessment & Plan Assessment & Plan (1) Schizophrenia: Status: Acute Code(s): F20.9 - Schizophrenia, unspecified (2) Dementia: Status: Acute Code(s): F03.90 - Unspecified dementia, unspecified severity, without behavioral disturbance, psychotic disturbance, mood disturbance, and anxiety Plan The patient is an elderly female with a past history of schizophrenia on Clozaril chronically psychotic who was admitted from the community since she was paranoid against her caregivers. Plan 09/18 continue tx. coordination with oncology Dr. Veloz to resume tx for multiple myeloma while inpt (question of billing issues, resolved). 09/19 continue tx 09/20 continue tx 09/21 continue tx. 09/22 continue tx. 09/23 continue tx. 09/24 continue tx. Reason for continued inpatient stay Substantial Risk for: inability to function Time Spent With Patient Time: Total time managing care of this patient today ____ minutes.
[2024-09-24 20:00] VITALS: BP 103/62; PULSE 80; RESP 16; TEMP 36.6; O2SAT 99
[2024-09-24] MEDS: cloZAPine 100 MG TABLET 300 MG PO (21:26)
[2024-09-24] MEDS: Loratadine 10 MG TABLET PO (21:26)
[2024-09-25] MEDS: Omeprazole 20 MG CAPSULE.DR PO (06:13)
[2024-09-25 08:00] VITALS: BP 114/62; PULSE 75; RESP 16; O2SAT 100
[2024-09-25] MEDS: Aspirin Enteric Coated 81 MG TABLET.DR PO (09:25)
[2024-09-25] MEDS: LENALIDOMIDE 15 MG 1 EACH PO (09:25)
[2024-09-25] MEDS: Sertraline HCL 50 MG TABLET PO (09:25)
[2024-09-25] MEDS: Calcium Carbonate 750 MG TAB.CHEW PO ×3 (09:25→20:11)
[2024-09-25] MEDS: Acyclovir 200 MG CAPSULE 400 MG PO (09:25)
[2024-09-25] MEDS: allopurinoL 100 MG TABLET PO (09:25)
[2024-09-25] MEDS: Cholecalciferol (Vitamin D3) 25 MCG TABLET 50 MCG PO (09:25)
[2024-09-25] MEDS: cloZAPine 25 MG TABLET PO ×2 (09:25→15:56)
[2024-09-25] MEDS: Ferrous Sulfate 324 MG TABLET.DR PO (09:25)
[2024-09-25 11:01] VITALS: BMI 28.4
--- NOTE | 2024-09-25 17:58 | HO.PSYCHPN ---
Subjective Subjective Date of Service: 09/25/24 Reason For Visit: paranoia Interim History: Pt seen with nutrition services manager. Discussed with the team who reports some self-dialogueing at times She denies issues of concern today. She is dismissive, pointing for us to leave while stating she is thankful for our visit today. Calm and in no acute distress.. Medication Compliance: Yes Side effects from medications: No Review of Systems Medical Review of Systems: unchanged Review of Systems Review of Systems Denies pain Denies medical concerns today. Mental Status Exam Mental Status Exam Patient Appearance: Fatigued and Disheveled Patient Orientation: Person Level of Consciousness: Alert Patient Behavior: Guarded and Good Eye Contact Mood Description: Withdrawn and Constricted Affect Description: Withdrawn Patient Cognition Impaired: Yes Ability to Follow Directions: Fair Speech Pattern: Spontaneous Speech Memory Description: Remote Impaired, Immediate Impaired, Episodic Impaired and Recent Impaired Thought Process: Distracted Judgement: Poor Diagnostics Vital Signs (24Hr): Vital Signs - 24 hr 09/24/24 20:00 09/25/24 08:00 Temperature 97.8 F Pulse Rate 80 75 Respiratory Rate 16 16 Blood Pressure 103/62 114/62 Pulse Oximetry 99 100 Oxygen Delivery Method Room Air Room Air BMI result Body Mass Index 28.4 Labs 09/13/24 08:17 09/13/24 08:17 Imaging Radiology Impressions: ITS Impressions Chest X-Ray 08/05/24 15:34 IMPRESSION: No active pulmonary disease. Electronically signed by: Derrell Marti MD 08/05/2024 03:58 PM [facility] [place] Medications Medications Current Medications Acetaminophen (Acetaminophen 325 Mg Tablet) 650 mg PO Q6H PRN PRN Reason: Headache/Pain Mild Scale (1-3) Acyclovir (Acyclovir 200 Mg Capsule) 400 mg PO DAILY [facility] Last Admin: 09/25/24 09:25 Dose: 400 mg Al Hydroxide/Mg Hydroxide (Magnesium Hydrox/Alum Hydrox 30 Ml Oral.Susp) 30 ml PO Q6H PRN PRN Reason: Heartburn/Nausea Albuterol Sulfate (Albuterol Sulfate 90 Mcg 8 Gm Inhaler) 2 puff INHALE Q4H PRN PRN Reason: Dyspnea Allopurinol (Allopurinol 100 Mg Tablet) 100 mg PO DAILY [facility] Last Admin: 09/25/24 09:25 Dose: 100 mg Aspirin (Aspirin Enteric Coated 81 Mg Tablet.) 81 mg PO DAILY [facility] Last Admin: 09/25/24 09:25 Dose: 81 mg Calcium Carbonate (Calcium Carbonate 750 Mg Tab.Chew) 750 mg PO TID [facility] Last Admin: 09/25/24 15:56 Dose: 750 mg Clozapine (Clozapine 100 Mg Tablet) 300 mg PO BEDTIME [facility] Last Admin: 09/24/24 21:26 Dose: 300 mg Clozapine (Clozapine 25 Mg Tablet) 25 mg PO BID@0800,1500 [facility] Last Admin: 09/25/24 15:56 Dose: 25 mg Ferrous Sulfate (Ferrous Sulfate 324 Mg Tablet.) 324 mg PO DAILY [facility] Last Admin: 09/25/24 09:25 Dose: 324 mg Hydroxyzine HCl (Hydroxyzine Hcl 25 Mg Tablet) 25 mg PO Q6H PRN PRN Reason: Anxiety Last Admin: 09/15/24 20:53 Dose: 25 mg Loperamide HCl (Loperamide Hcl 2 Mg Capsule) 2 mg PO DAILY PRN PRN Reason: Diarrhea Last Admin: 08/24/24 14:42 Dose: 2 mg Loratadine (Loratadine 10 Mg Tablet) 10 mg PO BEDTIME [facility] Last Admin: 09/24/24 21:26 Dose: 10 mg Magnesium Hydroxide (Milk Of Magnesia 30 Ml Oral.Susp) 30 ml PO DAILY PRN PRN Reason: Constipation Pt Own (Lenalidomide (15 Mg)) 1 each PO DAILY [facility] Last Admin: 09/25/24 09:25 Dose: 1 each Omeprazole (Omeprazole 20 Mg Capsule.) 20 mg PO DAILY@0630 [facility] Last Admin: 09/25/24 06:13 Dose: 20 mg Ondansetron HCl (Ondansetron Odt 4 Mg Tab.Rapdis) 4 mg TRANSLINGU Q4H PRN PRN Reason: Nausea and Vomiting Last Admin: 08/28/24 20:33 Dose: 4 mg Senna (Sennosides 8.6 Mg Tablet) 17.2 mg PO DAILY PRN PRN Reason: constipation Sertraline HCl (Sertraline Hcl 50 Mg Tablet) 50 mg PO DAILY [facility] Last Admin: 09/25/24 09:25 Dose: 50 mg Vitamin D (Cholecalciferol (Vitamin D3) 25 Mcg Tablet) 50 mcg PO DAILY [facility] Last Admin: 09/25/24 09:25 Dose: 50 mcg Allergies Allergies Allergy/AdvReac Type Severity Reaction Status Date / Time No Known Allergies Allergy Verified 08/05/24 15:00 [No Known Allergies*] Assessment & Plan Assessment & Plan (1) Schizophrenia: Status: Acute Code(s): F20.9 - Schizophrenia, unspecified (2) Dementia: Status: Acute Code(s): F03.90 - Unspecified dementia, unspecified severity, without behavioral disturbance, psychotic disturbance, mood disturbance, and anxiety Plan The patient is an elderly female with a past history of schizophrenia on Clozaril chronically psychotic who was admitted from the community since she was paranoid against her caregivers. Plan 09/18 continue tx. coordination with oncology Dr. Veloz to resume tx for multiple myeloma while inpt (question of billing issues, resolved). 09/19 continue tx 09/20 continue tx 09/21 continue tx. 09/22 continue tx. 09/23 continue tx. 09/24 continue tx. 09/25 continue tx Reason for continued inpatient stay Substantial Risk for: rapid decompensation Time Spent With Patient Time: Total time managing care of this patient today ____ minutes.
[2024-09-25 20:00] VITALS: BP 95/61; PULSE 82; RESP 16; TEMP 36.4; O2SAT 100
[2024-09-25] MEDS: cloZAPine 100 MG TABLET 300 MG PO (20:11)
[2024-09-25] MEDS: Loratadine 10 MG TABLET PO (20:11)
[2024-09-26] MEDS: Omeprazole 20 MG CAPSULE.DR PO (05:39)
[2024-09-26 08:00] VITALS: BP 121/76; PULSE 96; RESP 18; TEMP 36; O2SAT 98
[2024-09-26] MEDS: Calcium Carbonate 750 MG TAB.CHEW PO ×3 (08:54→20:31)
[2024-09-26] MEDS: Aspirin Enteric Coated 81 MG TABLET.DR PO (08:54)
[2024-09-26] MEDS: Cholecalciferol (Vitamin D3) 25 MCG TABLET 50 MCG PO (08:54)
[2024-09-26] MEDS: Ferrous Sulfate 324 MG TABLET.DR PO (08:54)
[2024-09-26] MEDS: cloZAPine 25 MG TABLET PO ×2 (08:55→14:55)
[2024-09-26] MEDS: Acyclovir 200 MG CAPSULE 400 MG PO (08:55)
[2024-09-26] MEDS: Sertraline HCL 50 MG TABLET PO (08:55)
[2024-09-26] MEDS: allopurinoL 100 MG TABLET PO (08:55)
[2024-09-26] MEDS: LENALIDOMIDE 15 MG 1 EACH PO (09:01)
--- NOTE | 2024-09-26 11:52 | HO.PSYCHPN ---
Subjective Subjective Date of Service: 09/26/24 Reason For Visit: paranoia Subjective Notes: Conditional Voluntary Healthcare Proxy: Yes Interim History: Pt slept through the night. she is taking medications as prescribed. She is dismissive, but polite asks this racebook writer to leave as she states she is fine and has no concerns. No behavioral concerns. She goes out for meals. Review of Systems Review of Systems Denies pain Denies medical concerns today. Yes all other systems are reviewed and are negative and Unobtainable due to mental status Mental Status Exam Mental Status Exam Narrative: Appearance: wearing casual clothing, fair hygine, in NAD Behavior: guarded, somewhat dismissive but polite Psychomotor: no retardation or agitation noted Speech: clear, latency noted, minimally spontaneous TP: poverty of thought, thought blocking TC: wanting to be left alone Mood: okay Affect: constricted SI: denies HI: denies VH/AH: internally preoccupied Delusions: guarded suspicious, cap gras delusions Insight/judgment: impaired x 2. memory/cog: alert, not oriented to month situation nor year. Diagnostics Vital Signs (24Hr): Vital Signs - 24 hr 09/25/24 20:00 Temperature 97.6 F Pulse Rate 82 Respiratory Rate 16 Blood Pressure 95/61 Pulse Oximetry 100 Oxygen Delivery Method Room Air BMI result Body Mass Index 28.4 Labs 09/13/24 08:17 09/13/24 08:17 Imaging Radiology Impressions: ITS Impressions Chest X-Ray 08/05/24 15:34 IMPRESSION: No active pulmonary disease. Electronically signed by: Derrell Marti MD 08/05/2024 03:58 PM [facility] [place] Medications Medications Current Medications Acetaminophen (Acetaminophen 325 Mg Tablet) 650 mg PO Q6H PRN PRN Reason: Headache/Pain Mild Scale (1-3) Acyclovir (Acyclovir 200 Mg Capsule) 400 mg PO DAILY [facility] Last Admin: 09/26/24 08:55 Dose: 400 mg Al Hydroxide/Mg Hydroxide (Magnesium Hydrox/Alum Hydrox 30 Ml Oral.Susp) 30 ml PO Q6H PRN PRN Reason: Heartburn/Nausea Albuterol Sulfate (Albuterol Sulfate 90 Mcg 8 Gm Inhaler) 2 puff INHALE Q4H PRN PRN Reason: Dyspnea Allopurinol (Allopurinol 100 Mg Tablet) 100 mg PO DAILY [facility] Last Admin: 09/26/24 08:55 Dose: 100 mg Aspirin (Aspirin Enteric Coated 81 Mg Tablet.) 81 mg PO DAILY [facility] Last Admin: 09/26/24 08:54 Dose: 81 mg Calcium Carbonate (Calcium Carbonate 750 Mg Tab.Chew) 750 mg PO TID [facility] Last Admin: 09/26/24 08:54 Dose: 750 mg Clozapine (Clozapine 100 Mg Tablet) 300 mg PO BEDTIME [facility] Last Admin: 09/25/24 20:11 Dose: 300 mg Clozapine (Clozapine 25 Mg Tablet) 25 mg PO BID@0800,1500 [facility] Last Admin: 09/26/24 08:55 Dose: 25 mg Ferrous Sulfate (Ferrous Sulfate 324 Mg Tablet.) 324 mg PO DAILY [facility] Last Admin: 09/26/24 08:54 Dose: 324 mg Hydroxyzine HCl (Hydroxyzine Hcl 25 Mg Tablet) 25 mg PO Q6H PRN PRN Reason: Anxiety Last Admin: 09/15/24 20:53 Dose: 25 mg Loperamide HCl (Loperamide Hcl 2 Mg Capsule) 2 mg PO DAILY PRN PRN Reason: Diarrhea Last Admin: 08/24/24 14:42 Dose: 2 mg Loratadine (Loratadine 10 Mg Tablet) 10 mg PO BEDTIME [facility] Last Admin: 09/25/24 20:11 Dose: 10 mg Magnesium Hydroxide (Milk Of Magnesia 30 Ml Oral.Susp) 30 ml PO DAILY PRN PRN Reason: Constipation Pt Own (Lenalidomide (15 Mg)) 1 each PO DAILY [facility] Last Admin: 09/26/24 09:01 Dose: 1 each Omeprazole (Omeprazole 20 Mg Capsule.) 20 mg PO DAILY@0630 [facility] Last Admin: 09/26/24 05:39 Dose: 20 mg Ondansetron HCl (Ondansetron Odt 4 Mg Tab.Rapdis) 4 mg TRANSLINGU Q4H PRN PRN Reason: Nausea and Vomiting Last Admin: 08/28/24 20:33 Dose: 4 mg Senna (Sennosides 8.6 Mg Tablet) 17.2 mg PO DAILY PRN PRN Reason: constipation Sertraline HCl (Sertraline Hcl 50 Mg Tablet) 50 mg PO DAILY [facility] Last Admin: 09/26/24 08:55 Dose: 50 mg Vitamin D (Cholecalciferol (Vitamin D3) 25 Mcg Tablet) 50 mcg PO DAILY [facility] Last Admin: 09/26/24 08:54 Dose: 50 mcg Allergies Allergies Allergy/AdvReac Type Severity Reaction Status Date / Time No Known Allergies Allergy Verified 08/05/24 15:00 [No Known Allergies*] Assessment & Plan Assessment & Plan (1) Schizophrenia: Status: Acute Code(s): F20.9 - Schizophrenia, unspecified (2) Dementia: Status: Acute Code(s): F03.90 - Unspecified dementia, unspecified severity, without behavioral disturbance, psychotic disturbance, mood disturbance, and anxiety Plan The patient is an elderly female with a past history of schizophrenia on Clozaril chronically psychotic who was admitted from the community since she was paranoid against her caregivers. Plan 09/18 continue tx. coordination with oncology Dr. Veloz to resume tx for multiple myeloma while inpt (question of billing issues, resolved). 09/19 continue tx 09/20 continue tx 09/21 continue tx. 09/22 continue tx. 09/23 continue tx. 09/24 continue tx. 09/25 continue tx 09/26 continue tx. VS stable but on low side. Reason for continued inpatient stay Substantial Risk for: inability to function Time Spent With Patient Time: Total time managing care of this patient today ____ minutes.
[2024-09-26 20:00] VITALS: BP 112/62; PULSE 76; RESP 16; TEMP 36.1; O2SAT 100
[2024-09-26] MEDS: Loratadine 10 MG TABLET PO (20:31)
[2024-09-26] MEDS: cloZAPine 100 MG TABLET 300 MG PO (20:31)
[2024-09-27] MEDS: Omeprazole 20 MG CAPSULE.DR PO (06:02)
[2024-09-27 08:00] VITALS: BP 128/65; PULSE 85; RESP 18; TEMP 36.6; O2SAT 100
[2024-09-27] MEDS: Calcium Carbonate 750 MG TAB.CHEW PO ×3 (09:06→20:10)
[2024-09-27] MEDS: Acyclovir 200 MG CAPSULE 400 MG PO (09:06)
[2024-09-27] MEDS: Aspirin Enteric Coated 81 MG TABLET.DR PO (09:06)
[2024-09-27] MEDS: allopurinoL 100 MG TABLET PO (09:06)
[2024-09-27] MEDS: Sertraline HCL 50 MG TABLET PO (09:06)
[2024-09-27] MEDS: cloZAPine 25 MG TABLET PO ×2 (09:07→14:00)
[2024-09-27] MEDS: Ferrous Sulfate 324 MG TABLET.DR PO (09:07)
[2024-09-27] MEDS: LENALIDOMIDE 15 MG 1 EACH PO (09:09)
[2024-09-27] MEDS: Cholecalciferol (Vitamin D3) 25 MCG TABLET 50 MCG PO (09:16)
[2024-09-27 20:00] VITALS: BP 103/64; PULSE 75; RESP 16; TEMP 36; O2SAT 100
[2024-09-27] MEDS: cloZAPine 100 MG TABLET 300 MG PO (20:10)
[2024-09-27] MEDS: Loratadine 10 MG TABLET PO (20:11)
--- NOTE | 2024-09-27 23:36 | HO.PSYCHPN ---
Subjective Subjective Date of Service: 09/27/24 Reason For Visit: paranoia Subjective Notes: Conditional Voluntary Healthcare Proxy: Yes Interim History: Pt slept through the night. she is taking medications as prescribed. She is dismissive, but polite asks this keno writer / runner to leave as she states she is fine and has no concerns. No behavioral concerns. She goes out for meals. Quiet mostly isolative Mental Status Exam Mental Status Exam Narrative: Appearance: wearing casual clothing, fair hygine, in NAD Behavior: guarded, somewhat dismissive but polite Psychomotor: no retardation or agitation noted Speech: clear, latency noted, minimally spontaneous TP: poverty of thought, thought blocking TC: wanting to be left alone Mood: okay Affect: constricted SI: denies HI: denies VH/AH: internally preoccupied Delusions: guarded suspicious, cap gras delusions Insight/judgment: impaired x 2. memory/cog: alert, not oriented to month situation nor year. Diagnostics Vital Signs (24Hr): Vital Signs - 24 hr 09/27/24 08:00 09/27/24 20:00 Temperature 97.9 F 96.8 F Pulse Rate 85 75 Respiratory Rate 18 16 Blood Pressure 128/65 103/64 Pulse Oximetry 100 100 Oxygen Delivery Method Room Air Room Air BMI result Body Mass Index 28.4 Labs 09/13/24 08:17 09/13/24 08:17 Imaging Radiology Impressions: ITS Impressions Chest X-Ray 08/05/24 15:34 IMPRESSION: No active pulmonary disease. Electronically signed by: Derrell Marti MD 08/05/2024 03:58 PM [facility] [place] Medications Medications Current Medications Acetaminophen (Acetaminophen 325 Mg Tablet) 650 mg PO Q6H PRN PRN Reason: Headache/Pain Mild Scale (1-3) Acyclovir (Acyclovir 200 Mg Capsule) 400 mg PO DAILY [facility] Last Admin: 09/27/24 09:06 Dose: 400 mg Al Hydroxide/Mg Hydroxide (Magnesium Hydrox/Alum Hydrox 30 Ml Oral.Susp) 30 ml PO Q6H PRN PRN Reason: Heartburn/Nausea Albuterol Sulfate (Albuterol Sulfate 90 Mcg 8 Gm Inhaler) 2 puff INHALE Q4H PRN PRN Reason: Dyspnea Allopurinol (Allopurinol 100 Mg Tablet) 100 mg PO DAILY [facility] Last Admin: 09/27/24 09:06 Dose: 100 mg Aspirin (Aspirin Enteric Coated 81 Mg Tablet.) 81 mg PO DAILY [facility] Last Admin: 09/27/24 09:06 Dose: 81 mg Calcium Carbonate (Calcium Carbonate 750 Mg Tab.Chew) 750 mg PO TID [facility] Last Admin: 09/27/24 20:10 Dose: 750 mg Clozapine (Clozapine 100 Mg Tablet) 300 mg PO BEDTIME [facility] Last Admin: 09/27/24 20:10 Dose: 300 mg Clozapine (Clozapine 25 Mg Tablet) 25 mg PO BID@0800,1500 [facility] Last Admin: 09/27/24 14:00 Dose: 25 mg Ferrous Sulfate (Ferrous Sulfate 324 Mg Tablet.) 324 mg PO DAILY [facility] Last Admin: 09/27/24 09:07 Dose: 324 mg Hydroxyzine HCl (Hydroxyzine Hcl 25 Mg Tablet) 25 mg PO Q6H PRN PRN Reason: Anxiety Last Admin: 09/15/24 20:53 Dose: 25 mg Loperamide HCl (Loperamide Hcl 2 Mg Capsule) 2 mg PO DAILY PRN PRN Reason: Diarrhea Last Admin: 08/24/24 14:42 Dose: 2 mg Loratadine (Loratadine 10 Mg Tablet) 10 mg PO BEDTIME [facility] Last Admin: 09/27/24 20:11 Dose: 10 mg Magnesium Hydroxide (Milk Of Magnesia 30 Ml Oral.Susp) 30 ml PO DAILY PRN PRN Reason: Constipation Pt Own (Lenalidomide (15 Mg)) 1 each PO DAILY [facility] Last Admin: 09/27/24 09:09 Dose: 1 each Omeprazole (Omeprazole 20 Mg Capsule.) 20 mg PO DAILY@0630 [facility] Last Admin: 09/27/24 06:02 Dose: 20 mg Ondansetron HCl (Ondansetron Odt 4 Mg Tab.Rapdis) 4 mg TRANSLINGU Q4H PRN PRN Reason: Nausea and Vomiting Last Admin: 08/28/24 20:33 Dose: 4 mg Senna (Sennosides 8.6 Mg Tablet) 17.2 mg PO DAILY PRN PRN Reason: constipation Sertraline HCl (Sertraline Hcl 50 Mg Tablet) 50 mg PO DAILY [facility] Last Admin: 09/27/24 09:06 Dose: 50 mg Vitamin D (Cholecalciferol (Vitamin D3) 25 Mcg Tablet) 50 mcg PO DAILY [facility] Last Admin: 09/27/24 09:16 Dose: 50 mcg Allergies Allergies Allergy/AdvReac Type Severity Reaction Status Date / Time No Known Allergies Allergy Verified 08/05/24 15:00 [No Known Allergies*] Assessment & Plan Assessment & Plan (1) Schizophrenia: Status: Acute Code(s): F20.9 - Schizophrenia, unspecified (2) Dementia: Status: Acute Code(s): F03.90 - Unspecified dementia, unspecified severity, without behavioral disturbance, psychotic disturbance, mood disturbance, and anxiety Plan The patient is an elderly female with a past history of schizophrenia on Clozaril chronically psychotic who was admitted from the community since she was paranoid against her caregivers. Plan 09/18 continue tx. coordination with oncology Dr. Veloz to resume tx for multiple myeloma while inpt (question of billing issues, resolved). 09/19 continue tx 09/20 continue tx 09/21 continue tx. 09/22 continue tx. 09/23 continue tx. 09/24 continue tx. 09/25 continue tx 09/26 continue tx. VS stable but on low side. 09/27/2024 Continue plan of care patient appears somewhat apathetic Informed Consent: further education needed Reason for continued inpatient stay Substantial Risk for: inability to function, rapid decompensation and med/psych decompensation Time Spent With Patient Time: Total time managing care of this patient today ____ minutes.
[2024-09-28] MEDS: Omeprazole 20 MG CAPSULE.DR PO (06:08)
[2024-09-28 08:00] VITALS: BP 115/66; PULSE 81; RESP 18; TEMP 36; O2SAT 100
[2024-09-28] MEDS: Cholecalciferol (Vitamin D3) 25 MCG TABLET 50 MCG PO (08:26)
[2024-09-28] MEDS: cloZAPine 25 MG TABLET PO ×2 (08:26→15:01)
[2024-09-28] MEDS: Sertraline HCL 50 MG TABLET PO (08:26)
[2024-09-28] MEDS: Aspirin Enteric Coated 81 MG TABLET.DR PO (08:26)
[2024-09-28] MEDS: allopurinoL 100 MG TABLET PO (08:26)
[2024-09-28] MEDS: Ferrous Sulfate 324 MG TABLET.DR PO (08:26)
[2024-09-28] MEDS: Acyclovir 200 MG CAPSULE 400 MG PO (08:26)
[2024-09-28] MEDS: Calcium Carbonate 750 MG TAB.CHEW PO ×3 (08:26→20:18)
[2024-09-28 20:00] VITALS: BP 107/58; PULSE 75; RESP 18; TEMP 37; O2SAT 99
[2024-09-28] MEDS: Loratadine 10 MG TABLET PO (20:18)
[2024-09-28] MEDS: cloZAPine 100 MG TABLET 300 MG PO (20:18)
--- NOTE | 2024-09-28 23:09 | P.PNPSI_ITS ---
Subjective Subjective Date of Service: 09/28/24 Reason For Visit: paranoia Subjective Notes: Conditional Voluntary Healthcare Proxy: Yes Interim History: Pt slept through the night. she is taking medication as prescribed No behavioral concerns. She goes out for meals. Quiet mostly isolative flat Medication Compliance: Yes Mental Status Exam Mental Status Exam Narrative: Appearance: wearing casual clothing, fair hygine, in NAD Behavior: guarded, somewhat dismissive but polite Psychomotor: no retardation or agitation noted Speech: clear, latency noted, minimally spontaneous TP: poverty of thought, thought blocking TC: wanting to be left alone Mood: okay Affect: constricted SI: denies HI: denies VH/AH: internally preoccupied Delusions: guarded suspicious, cap gras delusions Insight/judgment: impaired x 2. memory/cog: alert, not oriented to month situation nor year. Diagnostics Vital Signs (24Hr): Vital Signs - 24 hr 09/28/24 08:00 09/28/24 20:00 Temperature 96.8 F 98.6 F Pulse Rate 81 75 Respiratory Rate 18 18 Blood Pressure 115/66 107/58 L Pulse Oximetry 100 99 Oxygen Delivery Method Room Air Room Air BMI result Body Mass Index 28.4 Labs 09/13/24 08:17 09/13/24 08:17 Imaging Radiology Impressions: ITS Impressions Chest X-Ray 08/05/24 15:34 IMPRESSION: No active pulmonary disease. Electronically signed by: Derrell Marti MD 08/05/2024 03:58 PM [facility] [place] Medications Current Medications Acetaminophen (Acetaminophen 325 Mg Tablet) 650 mg PO Q6H PRN PRN Reason: Headache/Pain Mild Scale (1-3) Acyclovir (Acyclovir 200 Mg Capsule) 400 mg PO DAILY [facility] Last Admin: 09/28/24 08:26 Dose: 400 mg Al Hydroxide/Mg Hydroxide (Magnesium Hydrox/Alum Hydrox 30 Ml Oral.Susp) 30 ml PO Q6H PRN PRN Reason: Heartburn/Nausea Albuterol Sulfate (Albuterol Sulfate 90 Mcg 8 Gm Inhaler) 2 puff INHALE Q4H PRN PRN Reason: Dyspnea Allopurinol (Allopurinol 100 Mg Tablet) 100 mg PO DAILY [facility] Last Admin: 09/28/24 08:26 Dose: 100 mg Aspirin (Aspirin Enteric Coated 81 Mg Tablet.Dr) 81 mg PO DAILY [facility] Last Admin: 09/28/24 08:26 Dose: 81 mg Calcium Carbonate (Calcium Carbonate 750 Mg Tab.Chew) 750 mg PO TID [facility] Last Admin: 09/28/24 20:18 Dose: 750 mg Clozapine (Clozapine 100 Mg Tablet) 300 mg PO BEDTIME [facility] Last Admin: 09/28/24 20:18 Dose: 300 mg Clozapine (Clozapine 25 Mg Tablet) 25 mg PO BID@0800,1500 [facility] Last Admin: 09/28/24 15:01 Dose: 25 mg Ferrous Sulfate (Ferrous Sulfate 324 Mg Tablet.) 324 mg PO DAILY [facility] Last Admin: 09/28/24 08:26 Dose: 324 mg Hydroxyzine HCl (Hydroxyzine Hcl 25 Mg Tablet) 25 mg PO Q6H PRN PRN Reason: Anxiety Last Admin: 09/15/24 20:53 Dose: 25 mg Loperamide HCl (Loperamide Hcl 2 Mg Capsule) 2 mg PO DAILY PRN PRN Reason: Diarrhea Last Admin: 08/24/24 14:42 Dose: 2 mg Loratadine (Loratadine 10 Mg Tablet) 10 mg PO BEDTIME [facility] Last Admin: 09/28/24 20:18 Dose: 10 mg Magnesium Hydroxide (Milk Of Magnesia 30 Ml Oral.Susp) 30 ml PO DAILY PRN PRN Reason: Constipation Pt Own (Lenalidomide (15 Mg)) 1 each PO DAILY [facility] Last Admin: 09/28/24 09:55 Dose: Not Given Omeprazole (Omeprazole 20 Mg Capsule.) 20 mg PO DAILY@0630 [facility] Last Admin: 09/28/24 06:08 Dose: 20 mg Ondansetron HCl (Ondansetron Odt 4 Mg Tab.Rapdis) 4 mg TRANSLINGU Q4H PRN PRN Reason: Nausea and Vomiting Last Admin: 08/28/24 20:33 Dose: 4 mg Senna (Sennosides 8.6 Mg Tablet) 17.2 mg PO DAILY PRN PRN Reason: constipation Sertraline HCl (Sertraline Hcl 50 Mg Tablet) 50 mg PO DAILY [facility] Last Admin: 09/28/24 08:26 Dose: 50 mg Vitamin D (Cholecalciferol (Vitamin D3) 25 Mcg Tablet) 50 mcg PO DAILY [facility] Last Admin: 09/28/24 08:26 Dose: 50 mcg Allergies Allergies Allergy/AdvReac Type Severity Reaction Status Date / Time No Known Allergies Allergy Verified 08/05/24 15:00 [No Known Allergies*] Assessment & Plan Assessment & Plan (1) Schizophrenia: Status: Acute Code(s): F20.9 - Schizophrenia, unspecified (2) Dementia: Status: Acute Code(s): F03.90 - Unspecified dementia, unspecified severity, without behavioral disturbance, psychotic disturbance, mood disturbance, and anxiety Plan The patient is an elderly female with a past history of schizophrenia on Clozaril chronically psychotic who was admitted from the community since she was paranoid against her caregivers. Plan 09/18 continue tx. coordination with oncology Dr. Veloz to resume tx for multiple myeloma while inpt (question of billing issues, resolved). 09/19 continue tx 09/20 continue tx 09/21 continue tx. 09/22 continue tx. 09/23 continue tx. 09/24 continue tx. 09/25 continue tx 09/26 continue tx. VS stable but on low side. 09/27/2024 Continue plan of care patient appears somewhat apathetic 09/28/24 Continue plan of care Reason for continued inpatient stay Substantial Risk for: inability to function and rapid decompensation Time Spent With Patient Time: Total time managing care of this patient today ____ minutes.
[2024-09-29] MEDS: Omeprazole 20 MG CAPSULE.DR PO (05:57)
[2024-09-29 08:56] VITALS: BP 126/67; PULSE 81; RESP 16; TEMP 36.4; O2SAT 99
[2024-09-29] MEDS: Aspirin Enteric Coated 81 MG TABLET.DR PO (08:57)
[2024-09-29] MEDS: Cholecalciferol (Vitamin D3) 25 MCG TABLET 50 MCG PO (08:57)
[2024-09-29] MEDS: cloZAPine 25 MG TABLET PO ×2 (08:58→14:39)
[2024-09-29] MEDS: Ferrous Sulfate 324 MG TABLET.DR PO (08:58)
[2024-09-29] MEDS: allopurinoL 100 MG TABLET PO (08:58)
[2024-09-29] MEDS: Calcium Carbonate 750 MG TAB.CHEW PO ×3 (08:58→20:22)
[2024-09-29] MEDS: Sertraline HCL 50 MG TABLET PO (08:58)
[2024-09-29] MEDS: Acyclovir 200 MG CAPSULE 400 MG PO (08:58)
--- NOTE | 2024-09-29 12:13 | P.PNPSI_ITS ---
Subjective Subjective Date of Service: 09/29/24 Reason For Visit: paranoia Subjective Notes: Conditional Voluntary Healthcare Proxy: Yes Interim History: Pt slept through the night. She is visible for meals. She is dismissive when this junior technical writer attempts to talk with her she denies any concerns. Next chemo tx on December 12 at 11am. Lenalinomide 15mg po daily for 15 days on and 15 days off. She had last dose on 09/27/2024. Review of Systems Review of Systems Denies pain Denies medical concerns today. Yes all other systems are reviewed and are negative and Unobtainable due to mental status Mental Status Exam Mental Status Exam Narrative: Appearance: wearing casual clothing, fair hygine, in NAD Behavior: guarded, somewhat dismissive but polite Psychomotor: no retardation or agitation noted Speech: clear, latency noted, minimally spontaneous TP: poverty of thought, thought blocking TC: wanting to be left alone Mood: okay Affect: constricted SI: denies HI: denies VH/AH: internally preoccupied Delusions: guarded suspicious, cap gras delusions Insight/judgment: impaired x 2. memory/cog: alert, not oriented to month situation nor year. Diagnostics Vital Signs (24Hr): Vital Signs - 24 hr 09/28/24 20:00 09/29/24 08:56 Temperature 98.6 F 97.5 F Pulse Rate 75 81 Respiratory Rate 18 16 Blood Pressure 107/58 L 126/67 Pulse Oximetry 99 99 Oxygen Delivery Method Room Air Room Air BMI result Body Mass Index 28.4 Labs 09/13/24 08:17 09/13/24 08:17 Imaging Radiology Impressions: ITS Impressions Chest X-Ray 08/05/24 15:34 IMPRESSION: No active pulmonary disease. Electronically signed by: Derrell Marti MD 08/05/2024 03:58 PM [facility] [place] Medications Medications Current Medications Acetaminophen (Acetaminophen 325 Mg Tablet) 650 mg PO Q6H PRN PRN Reason: Headache/Pain Mild Scale (1-3) Acyclovir (Acyclovir 200 Mg Capsule) 400 mg PO DAILY [facility] Last Admin: 09/29/24 08:58 Dose: 400 mg Al Hydroxide/Mg Hydroxide (Magnesium Hydrox/Alum Hydrox 30 Ml Oral.Susp) 30 ml PO Q6H PRN PRN Reason: Heartburn/Nausea Albuterol Sulfate (Albuterol Sulfate 90 Mcg 8 Gm Inhaler) 2 puff INHALE Q4H PRN PRN Reason: Dyspnea Allopurinol (Allopurinol 100 Mg Tablet) 100 mg PO DAILY [facility] Last Admin: 09/29/24 08:58 Dose: 100 mg Aspirin (Aspirin Enteric Coated 81 Mg Tablet.) 81 mg PO DAILY [facility] Last Admin: 09/29/24 08:57 Dose: 81 mg Calcium Carbonate (Calcium Carbonate 750 Mg Tab.Chew) 750 mg PO TID [facility] Last Admin: 09/29/24 08:58 Dose: 750 mg Clozapine (Clozapine 100 Mg Tablet) 300 mg PO BEDTIME [facility] Last Admin: 09/28/24 20:18 Dose: 300 mg Clozapine (Clozapine 25 Mg Tablet) 25 mg PO BID@0800,1500 [facility] Last Admin: 09/29/24 08:58 Dose: 25 mg Ferrous Sulfate (Ferrous Sulfate 324 Mg Tablet.) 324 mg PO DAILY [facility] Last Admin: 09/29/24 08:58 Dose: 324 mg Hydroxyzine HCl (Hydroxyzine Hcl 25 Mg Tablet) 25 mg PO Q6H PRN PRN Reason: Anxiety Last Admin: 09/15/24 20:53 Dose: 25 mg Loperamide HCl (Loperamide Hcl 2 Mg Capsule) 2 mg PO DAILY PRN PRN Reason: Diarrhea Last Admin: 08/24/24 14:42 Dose: 2 mg Loratadine (Loratadine 10 Mg Tablet) 10 mg PO BEDTIME [facility] Last Admin: 09/28/24 20:18 Dose: 10 mg Magnesium Hydroxide (Milk Of Magnesia 30 Ml Oral.Susp) 30 ml PO DAILY PRN PRN Reason: Constipation Pt Own (Lenalidomide (15 Mg)) 1 each PO DAILY [facility] Last Admin: 09/29/24 10:01 Dose: Not Given Omeprazole (Omeprazole 20 Mg Capsule.) 20 mg PO DAILY@0630 [facility] Last Admin: 09/29/24 05:57 Dose: 20 mg Ondansetron HCl (Ondansetron Odt 4 Mg Tab.Rapdis) 4 mg TRANSLINGU Q4H PRN PRN Reason: Nausea and Vomiting Last Admin: 08/28/24 20:33 Dose: 4 mg Senna (Sennosides 8.6 Mg Tablet) 17.2 mg PO DAILY PRN PRN Reason: constipation Sertraline HCl (Sertraline Hcl 50 Mg Tablet) 50 mg PO DAILY [facility] Last Admin: 09/29/24 08:58 Dose: 50 mg Vitamin D (Cholecalciferol (Vitamin D3) 25 Mcg Tablet) 50 mcg PO DAILY [facility] Last Admin: 09/29/24 08:57 Dose: 50 mcg Allergies Allergies Allergy/AdvReac Type Severity Reaction Status Date / Time No Known Allergies Allergy Verified 08/05/24 15:00 [No Known Allergies*] Assessment & Plan Assessment & Plan (1) Schizophrenia: Status: Acute Code(s): F20.9 - Schizophrenia, unspecified (2) Dementia: Status: Acute Code(s): F03.90 - Unspecified dementia, unspecified severity, without behavioral disturbance, psychotic disturbance, mood disturbance, and anxiety Plan The patient is an elderly female with a past history of schizophrenia on Clozaril chronically psychotic who was admitted from the community since she was paranoid against her caregivers. Plan 09/18 continue tx. coordination with oncology Dr. Veloz to resume tx for multiple myeloma while inpt (question of billing issues, resolved). 09/19 continue tx 09/20 continue tx 09/21 continue tx. 09/22 continue tx. 09/23 continue tx. 09/24 continue tx. 09/25 continue tx 09/26 continue tx. VS stable but on low side. 09/27/2024 Continue plan of care patient appears somewhat apathetic 09/29 Next chemo tx (Denosumab infusion) on December [address] Baugh' office. Lenalinomide 15mg po daily for 15 days on and 15 days off. She had last dose on 09/27/2024. Re-start on 10/12/2024. Reason for continued inpatient stay Substantial Risk for: inability to function Time Spent With Patient Time: Total time managing care of this patient today ____ minutes.
[2024-09-29 20:00] VITALS: BP 98/56; PULSE 80; RESP 18; TEMP 36.7; O2SAT 100
[2024-09-29] MEDS: cloZAPine 100 MG TABLET 300 MG PO (20:22)
[2024-09-29] MEDS: Loratadine 10 MG TABLET PO (20:22)
[2024-09-30] MEDS: Omeprazole 20 MG CAPSULE.DR PO (06:12)
[2024-09-30 07:55] VITALS: BP 130/78; PULSE 72; RESP 18; TEMP 36.8; O2SAT 98
[2024-09-30] MEDS: cloZAPine 25 MG TABLET PO ×2 (08:24→14:48)
[2024-09-30] MEDS: Acyclovir 200 MG CAPSULE 400 MG PO (08:24)
[2024-09-30] MEDS: allopurinoL 100 MG TABLET PO (08:24)
[2024-09-30] MEDS: Sertraline HCL 50 MG TABLET PO (08:24)
[2024-09-30] MEDS: Ferrous Sulfate 324 MG TABLET.DR PO (08:24)
[2024-09-30] MEDS: Cholecalciferol (Vitamin D3) 25 MCG TABLET 50 MCG PO (08:24)
[2024-09-30] MEDS: Calcium Carbonate 750 MG TAB.CHEW PO ×3 (08:24→20:07)
[2024-09-30] MEDS: Aspirin Enteric Coated 81 MG TABLET.DR PO (08:24)
[2024-09-30 08:27] LABS: Neut%MD 44.9 %; Neutrophils Absolute Auto 1.3 x10*3/uL (2.0-8.3); WBCANC 2.9 X10*3/uL
--- NOTE | 2024-09-30 19:09 | P.PNPSI_ITS ---
Subjective Subjective Date of Service: 09/30/24 Reason For Visit: paranoia Subjective Notes: Conditional Voluntary Interim History: Pt slept through the night. She is visible for meals. She is dismissive when this senior grant writer attempts to talk with her she denies any concerns. She is eating well. No behavioral concerns. Review of Systems Review of Systems Denies pain Denies medical concerns today. Yes all other systems are reviewed and are negative and Unobtainable due to mental status Mental Status Exam Mental Status Exam Narrative: Appearance: wearing casual clothing, fair hygine, in NAD Behavior: guarded, somewhat dismissive but polite Psychomotor: no retardation or agitation noted Speech: clear, latency noted, minimally spontaneous TP: poverty of thought, thought blocking TC: wanting to be left alone Mood: okay Affect: constricted SI: denies HI: denies VH/AH: internally preoccupied Delusions: guarded suspicious, cap gras delusions Insight/judgment: impaired x 2. memory/cog: alert, not oriented to month situation nor year. Diagnostics Vital Signs (24Hr): Vital Signs - 24 hr 09/29/24 20:00 09/30/24 07:55 Temperature 98.1 F 98.2 F Pulse Rate 80 72 Respiratory Rate 18 18 Blood Pressure 98/56 L 130/78 Pulse Oximetry 100 98 Oxygen Delivery Method Room Air Room Air BMI result Body Mass Index 28.4 Labs 09/13/24 08:17 09/13/24 08:17 Labs: Laboratory Results - last 48 hr 09/30/24 08:18 Absolute Neuts (auto) 1.3 L Imaging Radiology Impressions: ITS Impressions Chest X-Ray 08/05/24 15:34 IMPRESSION: No active pulmonary disease. Electronically signed by: Derrell Marti MD 08/05/2024 03:58 PM [facility] [place] Medications Medications Current Medications Acetaminophen (Acetaminophen 325 Mg Tablet) 650 mg PO Q6H PRN PRN Reason: Headache/Pain Mild Scale (1-3) Acyclovir (Acyclovir 200 Mg Capsule) 400 mg PO DAILY [facility] Last Admin: 09/30/24 08:24 Dose: 400 mg Al Hydroxide/Mg Hydroxide (Magnesium Hydrox/Alum Hydrox 30 Ml Oral.Susp) 30 ml PO Q6H PRN PRN Reason: Heartburn/Nausea Albuterol Sulfate (Albuterol Sulfate 90 Mcg 8 Gm Inhaler) 2 puff INHALE Q4H PRN PRN Reason: Dyspnea Allopurinol (Allopurinol 100 Mg Tablet) 100 mg PO DAILY [facility] Last Admin: 09/30/24 08:24 Dose: 100 mg Aspirin (Aspirin Enteric Coated 81 Mg Tablet.) 81 mg PO DAILY [facility] Last Admin: 09/30/24 08:24 Dose: 81 mg Calcium Carbonate (Calcium Carbonate 750 Mg Tab.Chew) 750 mg PO TID [facility] Last Admin: 09/30/24 14:48 Dose: 750 mg Clozapine (Clozapine 100 Mg Tablet) 300 mg PO BEDTIME [facility] Last Admin: 09/29/24 20:22 Dose: 300 mg Clozapine (Clozapine 25 Mg Tablet) 25 mg PO BID@0800,1500 [facility] Last Admin: 09/30/24 14:48 Dose: 25 mg Ferrous Sulfate (Ferrous Sulfate 324 Mg Tablet.) 324 mg PO DAILY [facility] Last Admin: 09/30/24 08:24 Dose: 324 mg Hydroxyzine HCl (Hydroxyzine Hcl 25 Mg Tablet) 25 mg PO Q6H PRN PRN Reason: Anxiety Last Admin: 09/15/24 20:53 Dose: 25 mg Loperamide HCl (Loperamide Hcl 2 Mg Capsule) 2 mg PO DAILY PRN PRN Reason: Diarrhea Last Admin: 08/24/24 14:42 Dose: 2 mg Loratadine (Loratadine 10 Mg Tablet) 10 mg PO BEDTIME [facility] Last Admin: 09/29/24 20:22 Dose: 10 mg Magnesium Hydroxide (Milk Of Magnesia 30 Ml Oral.Susp) 30 ml PO DAILY PRN PRN Reason: Constipation Pt Own (Lenalidomide (15 Mg)) 1 each PO DAILY [facility] Last Admin: 09/30/24 08:25 Dose: Not Given Omeprazole (Omeprazole 20 Mg Capsule.) 20 mg PO DAILY@0630 [facility] Last Admin: 09/30/24 06:12 Dose: 20 mg Ondansetron HCl (Ondansetron Odt 4 Mg Tab.Rapdis) 4 mg TRANSLINGU Q4H PRN PRN Reason: Nausea and Vomiting Last Admin: 08/28/24 20:33 Dose: 4 mg Senna (Sennosides 8.6 Mg Tablet) 17.2 mg PO DAILY PRN PRN Reason: constipation Sertraline HCl (Sertraline Hcl 50 Mg Tablet) 50 mg PO DAILY [facility] Last Admin: 09/30/24 08:24 Dose: 50 mg Vitamin D (Cholecalciferol (Vitamin D3) 25 Mcg Tablet) 50 mcg PO DAILY [facility] Last Admin: 09/30/24 08:24 Dose: 50 mcg Allergies Allergies Allergy/AdvReac Type Severity Reaction Status Date / Time No Known Allergies Allergy Verified 08/05/24 15:00 [No Known Allergies*] Assessment & Plan Assessment & Plan (1) Schizophrenia: Status: Acute Code(s): F20.9 - Schizophrenia, unspecified (2) Dementia: Status: Acute Code(s): F03.90 - Unspecified dementia, unspecified severity, without behavioral disturbance, psychotic disturbance, mood disturbance, and anxiety Plan The patient is an elderly female with a past history of schizophrenia on Clozaril chronically psychotic who was admitted from the community since she was paranoid against her caregivers. Plan 09/18 continue tx. coordination with oncology Dr. Veloz to resume tx for multiple myeloma while inpt (question of billing issues, resolved). 09/19 continue tx 09/20 continue tx 09/21 continue tx. 09/22 continue tx. 09/23 continue tx. 09/24 continue tx. 09/25 continue tx 09/26 continue tx. VS stable but on low side. 09/27/2024 Continue plan of care patient appears somewhat apathetic 09/29 Next chemo tx (Denosumab infusion) on December [address] Baugh' office. Lenalinomide 15mg po daily for 15 days on and 15 days off. She had last dose on 09/27/2024. Re-start on 10/12/2024. 09/30 continue tx. Reason for continued inpatient stay Substantial Risk for: inability to function Time Spent With Patient Time: Total time managing care of this patient today ____ minutes.
[2024-09-30 20:00] VITALS: BP 131/64; PULSE 65; TEMP 36.6; O2SAT 99
[2024-09-30] MEDS: cloZAPine 100 MG TABLET 300 MG PO (20:07)
[2024-09-30] MEDS: Loratadine 10 MG TABLET PO (20:07)
[2024-10-01] MEDS: Omeprazole 20 MG CAPSULE.DR PO (05:32)
[2024-10-01 08:05] VITALS: BP 115/67; PULSE 76; RESP 16; TEMP 36.4; O2SAT 99
[2024-10-01] MEDS: Calcium Carbonate 750 MG TAB.CHEW PO ×3 (08:12→19:32)
[2024-10-01] MEDS: Ferrous Sulfate 324 MG TABLET.DR PO (08:12)
[2024-10-01] MEDS: cloZAPine 25 MG TABLET PO ×2 (08:12→14:29)
[2024-10-01] MEDS: Cholecalciferol (Vitamin D3) 25 MCG TABLET 50 MCG PO (08:12)
[2024-10-01] MEDS: Acyclovir 200 MG CAPSULE 400 MG PO (08:12)
[2024-10-01] MEDS: Aspirin Enteric Coated 81 MG TABLET.DR PO (08:12)
[2024-10-01] MEDS: Sertraline HCL 50 MG TABLET PO (08:13)
[2024-10-01] MEDS: allopurinoL 100 MG TABLET PO (08:13)
[2024-10-01] MEDS: Loratadine 10 MG TABLET PO (19:32)
[2024-10-01] MEDS: cloZAPine 100 MG TABLET 300 MG PO (19:32)
[2024-10-01 19:33] VITALS: BP 93/62; PULSE 83; RESP 15; TEMP 36.6; O2SAT 100
--- NOTE | 2024-10-01 22:10 | P.PNPSI_ITS ---
Subjective Subjective Date of Service: 10/01/24 Reason For Visit: paranoia Subjective Notes: Conditional Voluntary Interim History: Pt was up part of the night, asking for coffee, which is not her usual. During the day, she presented as usual. She is visible for meals. She is dismissive when this junior technical writer attempts to talk with her she denies any concerns. She is eating well. No behavioral concerns. Review of Systems Review of Systems Denies pain Denies medical concerns today. Yes all other systems are reviewed and are negative and Unobtainable due to mental status Mental Status Exam Mental Status Exam Narrative: Appearance: wearing casual clothing, fair hygine, in NAD Behavior: guarded, somewhat dismissive but polite Psychomotor: no retardation or agitation noted Speech: clear, latency noted, minimally spontaneous TP: poverty of thought, thought blocking TC: wanting to be left alone Mood: okay Affect: constricted SI: denies HI: denies VH/AH: internally preoccupied Delusions: guarded suspicious, cap gras delusions Insight/judgment: impaired x 2. memory/cog: alert, not oriented to month situation nor year. Diagnostics Vital Signs (24Hr): Vital Signs - 24 hr 10/01/24 08:05 10/01/24 19:33 Temperature 97.6 F 97.8 F Pulse Rate 76 83 Respiratory Rate 16 15 Blood Pressure 115/67 93/62 Pulse Oximetry 99 100 Oxygen Delivery Method Room Air Room Air BMI result Body Mass Index 28.4 Labs 09/13/24 08:17 09/13/24 08:17 Labs: Laboratory Results - last 48 hr 09/30/24 08:18 Absolute Neuts (auto) 1.3 L Imaging Radiology Impressions: ITS Impressions Chest X-Ray 08/05/24 15:34 IMPRESSION: No active pulmonary disease. Electronically signed by: Derrell Marti MD 08/05/2024 03:58 PM EST Medications Medications Current Medications Acetaminophen (Acetaminophen 325 Mg Tablet) 650 mg PO Q6H PRN PRN Reason: Headache/Pain Mild Scale (1-3) Acyclovir (Acyclovir 200 Mg Capsule) 400 mg PO DAILY [facility] Last Admin: 10/01/24 08:12 Dose: 400 mg Al Hydroxide/Mg Hydroxide (Magnesium Hydrox/Alum Hydrox 30 Ml Oral.Susp) 30 ml PO Q6H PRN PRN Reason: Heartburn/Nausea Albuterol Sulfate (Albuterol Sulfate 90 Mcg 8 Gm Inhaler) 2 puff INHALE Q4H PRN PRN Reason: Dyspnea Allopurinol (Allopurinol 100 Mg Tablet) 100 mg PO DAILY [facility] Last Admin: 10/01/24 08:13 Dose: 100 mg Aspirin (Aspirin Enteric Coated 81 Mg Tablet.) 81 mg PO DAILY [facility] Last Admin: 10/01/24 08:12 Dose: 81 mg Calcium Carbonate (Calcium Carbonate 750 Mg Tab.Chew) 750 mg PO TID [facility] Last Admin: 10/01/24 19:32 Dose: 750 mg Clozapine (Clozapine 100 Mg Tablet) 300 mg PO BEDTIME [facility] Last Admin: 10/01/24 19:32 Dose: 300 mg Clozapine (Clozapine 25 Mg Tablet) 25 mg PO BID@0800,1500 [facility] Last Admin: 10/01/24 14:29 Dose: 25 mg Ferrous Sulfate (Ferrous Sulfate 324 Mg Tablet.) 324 mg PO DAILY [facility] Last Admin: 10/01/24 08:12 Dose: 324 mg Hydroxyzine HCl (Hydroxyzine Hcl 25 Mg Tablet) 25 mg PO Q6H PRN PRN Reason: Anxiety Last Admin: 09/15/24 20:53 Dose: 25 mg Loperamide HCl (Loperamide Hcl 2 Mg Capsule) 2 mg PO DAILY PRN PRN Reason: Diarrhea Last Admin: 08/24/24 14:42 Dose: 2 mg Loratadine (Loratadine 10 Mg Tablet) 10 mg PO BEDTIME [facility] Last Admin: 10/01/24 19:32 Dose: 10 mg Magnesium Hydroxide (Milk Of Magnesia 30 Ml Oral.Susp) 30 ml PO DAILY PRN PRN Reason: Constipation Pt Own (Lenalidomide (15 Mg)) 1 each PO DAILY [facility] Last Admin: 10/01/24 08:13 Dose: Not Given Omeprazole (Omeprazole 20 Mg Capsule.) 20 mg PO DAILY@0630 [facility] Last Admin: 10/01/24 05:32 Dose: 20 mg Ondansetron HCl (Ondansetron Odt 4 Mg Tab.Rapdis) 4 mg TRANSLINGU Q4H PRN PRN Reason: Nausea and Vomiting Last Admin: 08/28/24 20:33 Dose: 4 mg Senna (Sennosides 8.6 Mg Tablet) 17.2 mg PO DAILY PRN PRN Reason: constipation Sertraline HCl (Sertraline Hcl 50 Mg Tablet) 50 mg PO DAILY [facility] Last Admin: 10/01/24 08:13 Dose: 50 mg Vitamin D (Cholecalciferol (Vitamin D3) 25 Mcg Tablet) 50 mcg PO DAILY [facility] Last Admin: 10/01/24 08:12 Dose: 50 mcg Allergies Allergies Allergy/AdvReac Type Severity Reaction Status Date / Time No Known Allergies Allergy Verified 08/05/24 15:00 [No Known Allergies*] Assessment & Plan Assessment & Plan (1) Schizophrenia: Status: Acute Code(s): F20.9 - Schizophrenia, unspecified (2) Dementia: Status: Acute Code(s): F03.90 - Unspecified dementia, unspecified severity, without behavioral disturbance, psychotic disturbance, mood disturbance, and anxiety Plan The patient is an elderly female with a past history of schizophrenia on Clozaril chronically psychotic who was admitted from the community since she was paranoid against her caregivers. Plan 09/18 continue tx. coordination with oncology Dr. Veloz to resume tx for multiple myeloma while inpt (question of billing issues, resolved). 09/19 continue tx 09/20 continue tx 09/21 continue tx. 09/22 continue tx. 09/23 continue tx. 09/24 continue tx. 09/25 continue tx 09/26 continue tx. VS stable but on low side. 09/27/2024 Continue plan of care patient appears somewhat apathetic 09/29 Next chemo tx (Denosumab infusion) on December [address] Baugh' office. Lenalinomide 15mg po daily for 15 days on and 15 days off. She had last dose on 09/27/2024. Re-start on 10/12/2024. 09/30 continue tx. 10/01 continue tx. Reason for continued inpatient stay Substantial Risk for: inability to function Time Spent With Patient Time: Total time managing care of this patient today ____ minutes.
[2024-10-02] MEDS: Omeprazole 20 MG CAPSULE.DR PO (05:44)
[2024-10-02 08:00] VITALS: BP 110/62; PULSE 88; RESP 16; TEMP 36.3; O2SAT 100
[2024-10-02] MEDS: Cholecalciferol (Vitamin D3) 25 MCG TABLET 50 MCG PO (08:38)
[2024-10-02] MEDS: Calcium Carbonate 750 MG TAB.CHEW PO ×3 (08:38→20:36)
[2024-10-02] MEDS: cloZAPine 25 MG TABLET PO ×2 (08:38→14:40)
[2024-10-02] MEDS: Ferrous Sulfate 324 MG TABLET.DR PO (08:38)
[2024-10-02] MEDS: allopurinoL 100 MG TABLET PO (08:38)
[2024-10-02] MEDS: Sertraline HCL 50 MG TABLET PO (08:38)
[2024-10-02] MEDS: Aspirin Enteric Coated 81 MG TABLET.DR PO (08:38)
[2024-10-02] MEDS: Acyclovir 200 MG CAPSULE 400 MG PO (08:38)
--- NOTE | 2024-10-02 10:25 | P.PNPSI_ITS ---
Subjective Subjective Date of Service: 10/02/24 Reason For Visit: paranoia Subjective Notes: Conditional Voluntary Healthcare Proxy: Yes Interim History: Pt slept through the night. She is visible mostly for meals. She was seen self dialoguing. No behavioral concerns. She is eating well. She is taking medications as prescribed. Review of Systems Review of Systems Denies pain Denies medical concerns today. Yes all other systems are reviewed and are negative and Unobtainable due to mental status Mental Status Exam Mental Status Exam Narrative: Appearance: wearing casual clothing, fair hygine, in NAD Behavior: guarded, somewhat dismissive but polite Psychomotor: no retardation or agitation noted Speech: clear, latency noted, minimally spontaneous TP: poverty of thought, thought blocking TC: wanting to be left alone Mood: okay Affect: constricted SI: denies HI: denies VH/AH: internally preoccupied Delusions: guarded suspicious, cap gras delusions Insight/judgment: impaired x 2. memory/cog: alert, not oriented to month situation nor year. Diagnostics Vital Signs (24Hr): Vital Signs - 24 hr 10/01/24 19:33 10/02/24 08:00 Temperature 97.8 F 97.3 F Pulse Rate 83 88 Respiratory Rate 15 16 Blood Pressure 93/62 110/62 Pulse Oximetry 100 100 Oxygen Delivery Method Room Air Room Air BMI result Body Mass Index 28.4 Labs 09/13/24 08:17 09/13/24 08:17 Imaging Radiology Impressions: ITS Impressions Chest X-Ray 08/05/24 15:34 IMPRESSION: No active pulmonary disease. Electronically signed by: Derrell Marti MD 08/05/2024 03:58 PM [facility] Medications Medications Current Medications Acetaminophen (Acetaminophen 325 Mg Tablet) 650 mg PO Q6H PRN PRN Reason: Headache/Pain Mild Scale (1-3) Acyclovir (Acyclovir 200 Mg Capsule) 400 mg PO DAILY [facility] Last Admin: 10/02/24 08:38 Dose: 400 mg Al Hydroxide/Mg Hydroxide (Magnesium Hydrox/Alum Hydrox 30 Ml Oral.Susp) 30 ml PO Q6H PRN PRN Reason: Heartburn/Nausea Albuterol Sulfate (Albuterol Sulfate 90 Mcg 8 Gm Inhaler) 2 puff INHALE Q4H PRN PRN Reason: Dyspnea Allopurinol (Allopurinol 100 Mg Tablet) 100 mg PO DAILY [facility] Last Admin: 10/02/24 08:38 Dose: 100 mg Aspirin (Aspirin Enteric Coated 81 Mg Tablet.) 81 mg PO DAILY [facility] Last Admin: 10/02/24 08:38 Dose: 81 mg Calcium Carbonate (Calcium Carbonate 750 Mg Tab.Chew) 750 mg PO TID [facility] Last Admin: 10/02/24 08:38 Dose: 750 mg Clozapine (Clozapine 100 Mg Tablet) 300 mg PO BEDTIME [facility] Last Admin: 10/01/24 19:32 Dose: 300 mg Clozapine (Clozapine 25 Mg Tablet) 25 mg PO BID@0800,1500 [facility] Last Admin: 10/02/24 08:38 Dose: 25 mg Ferrous Sulfate (Ferrous Sulfate 324 Mg Tablet.) 324 mg PO DAILY [facility] Last Admin: 10/02/24 08:38 Dose: 324 mg Hydroxyzine HCl (Hydroxyzine Hcl 25 Mg Tablet) 25 mg PO Q6H PRN PRN Reason: Anxiety Last Admin: 09/15/24 20:53 Dose: 25 mg Loperamide HCl (Loperamide Hcl 2 Mg Capsule) 2 mg PO DAILY PRN PRN Reason: Diarrhea Last Admin: 08/24/24 14:42 Dose: 2 mg Loratadine (Loratadine 10 Mg Tablet) 10 mg PO BEDTIME [facility] Last Admin: 10/01/24 19:32 Dose: 10 mg Magnesium Hydroxide (Milk Of Magnesia 30 Ml Oral.Susp) 30 ml PO DAILY PRN PRN Reason: Constipation Pt Own (Lenalidomide (15 Mg)) 1 each PO DAILY [facility] Last Admin: 10/02/24 08:39 Dose: Not Given Omeprazole (Omeprazole 20 Mg Capsule.) 20 mg PO DAILY@0630 [facility] Last Admin: 10/02/24 05:44 Dose: 20 mg Ondansetron HCl (Ondansetron Odt 4 Mg Tab.Rapdis) 4 mg TRANSLINGU Q4H PRN PRN Reason: Nausea and Vomiting Last Admin: 08/28/24 20:33 Dose: 4 mg Senna (Sennosides 8.6 Mg Tablet) 17.2 mg PO DAILY PRN PRN Reason: constipation Sertraline HCl (Sertraline Hcl 50 Mg Tablet) 50 mg PO DAILY [facility] Last Admin: 10/02/24 08:38 Dose: 50 mg Vitamin D (Cholecalciferol (Vitamin D3) 25 Mcg Tablet) 50 mcg PO DAILY [facility] Last Admin: 10/02/24 08:38 Dose: 50 mcg Allergies Allergies Allergy/AdvReac Type Severity Reaction Status Date / Time No Known Allergies Allergy Verified 08/05/24 15:00 [No Known Allergies*] Assessment & Plan Assessment & Plan (1) Schizophrenia: Status: Acute Code(s): F20.9 - Schizophrenia, unspecified (2) Dementia: Status: Acute Code(s): F03.90 - Unspecified dementia, unspecified severity, without behavioral disturbance, psychotic disturbance, mood disturbance, and anxiety Plan The patient is an elderly female with a past history of schizophrenia on Clozaril chronically psychotic who was admitted from the community since she was paranoid against her caregivers. Plan 09/18 continue tx. coordination with oncology Dr. Veloz to resume tx for multiple myeloma while inpt (question of billing issues, resolved). 09/19 continue tx 09/20 continue tx 09/21 continue tx. 09/22 continue tx. 09/23 continue tx. 09/24 continue tx. 09/25 continue tx 09/26 continue tx. VS stable but on low side. 09/27/2024 Continue plan of care patient appears somewhat apathetic 09/29 Next chemo tx (Denosumab infusion) on December [address] Baugh' office. Lenalinomide 15mg po daily for 15 days on and 15 days off. She had last dose on 09/27/2024. Re-start on 10/12/2024. 09/30 continue tx. 10/01 continue tx. 10/02 continue tx. Reason for continued inpatient stay Substantial Risk for: inability to function Time Spent With Patient Time: Total time managing care of this patient today ____ minutes.
[2024-10-02 20:00] VITALS: BP 107/60; PULSE 73; RESP 16; TEMP 36.2; O2SAT 98
[2024-10-02] MEDS: Loratadine 10 MG TABLET PO (20:36)
[2024-10-02] MEDS: cloZAPine 100 MG TABLET 300 MG PO (20:36)
[2024-10-03] MEDS: Omeprazole 20 MG CAPSULE.DR PO (05:56)
[2024-10-03 08:00] VITALS: BP 110/61; PULSE 81; RESP 16; TEMP 36.3; O2SAT 100
[2024-10-03] MEDS: Calcium Carbonate 750 MG TAB.CHEW PO ×3 (08:54→20:44)
[2024-10-03] MEDS: cloZAPine 25 MG TABLET PO ×2 (08:54→16:28)
[2024-10-03] MEDS: Cholecalciferol (Vitamin D3) 25 MCG TABLET 50 MCG PO (08:54)
[2024-10-03] MEDS: Aspirin Enteric Coated 81 MG TABLET.DR PO (08:54)
[2024-10-03] MEDS: Ferrous Sulfate 324 MG TABLET.DR PO (08:54)
[2024-10-03] MEDS: Acyclovir 200 MG CAPSULE 400 MG PO (08:54)
[2024-10-03] MEDS: Sertraline HCL 50 MG TABLET PO (08:54)
[2024-10-03] MEDS: allopurinoL 100 MG TABLET PO (08:55)
--- NOTE | 2024-10-03 16:28 | HO.PSYCHPN ---
Subjective Subjective Date of Service: 10/03/24 Reason For Visit: paranoia Interim History: Pt slept through the night. She is visible mostly for meals. She was seen self dialoguing. No behavioral concerns. She is eating well. She is taking medications as prescribed. Review of Systems Review of Systems Denies pain Denies medical concerns today. Yes all other systems are reviewed and are negative and Unobtainable due to mental status Mental Status Exam Mental Status Exam Narrative: Appearance: wearing casual clothing, fair hygine, in NAD Behavior: guarded, somewhat dismissive but polite Psychomotor: no retardation or agitation noted Speech: clear, latency noted, minimally spontaneous TP: poverty of thought, thought blocking TC: wanting to be left alone Mood: okay Affect: constricted SI: denies HI: denies VH/AH: internally preoccupied Delusions: guarded suspicious, cap gras delusions Insight/judgment: impaired x 2. memory/cog: alert, not oriented to month situation nor year. Diagnostics Vital Signs (24Hr): Vital Signs - 24 hr 10/02/24 20:00 10/03/24 08:00 Temperature 97.2 F 97.3 F Pulse Rate 73 81 Respiratory Rate 16 16 Blood Pressure 107/60 110/61 Pulse Oximetry 98 100 Oxygen Delivery Method Room Air Room Air BMI result Body Mass Index 28.4 Labs 09/13/24 08:17 09/13/24 08:17 Imaging Radiology Impressions: ITS Impressions Chest X-Ray 08/05/24 15:34 IMPRESSION: No active pulmonary disease. Electronically signed by: Derrell Marti MD 08/05/2024 03:58 PM [facility] [place] Medications Medications Current Medications Acetaminophen (Acetaminophen 325 Mg Tablet) 650 mg PO Q6H PRN PRN Reason: Headache/Pain Mild Scale (1-3) Acyclovir (Acyclovir 200 Mg Capsule) 400 mg PO DAILY [facility] Last Admin: 10/03/24 08:54 Dose: 400 mg Al Hydroxide/Mg Hydroxide (Magnesium Hydrox/Alum Hydrox 30 Ml Oral.Susp) 30 ml PO Q6H PRN PRN Reason: Heartburn/Nausea Albuterol Sulfate (Albuterol Sulfate 90 Mcg 8 Gm Inhaler) 2 puff INHALE Q4H PRN PRN Reason: Dyspnea Allopurinol (Allopurinol 100 Mg Tablet) 100 mg PO DAILY [facility] Last Admin: 10/03/24 08:55 Dose: 100 mg Aspirin (Aspirin Enteric Coated 81 Mg Tablet.) 81 mg PO DAILY [facility] Last Admin: 10/03/24 08:54 Dose: 81 mg Calcium Carbonate (Calcium Carbonate 750 Mg Tab.Chew) 750 mg PO TID [facility] Last Admin: 10/03/24 08:54 Dose: 750 mg Clozapine (Clozapine 100 Mg Tablet) 300 mg PO BEDTIME [facility] Last Admin: 10/02/24 20:36 Dose: 300 mg Clozapine (Clozapine 25 Mg Tablet) 25 mg PO BID@0800,1500 [facility] Last Admin: 10/03/24 08:54 Dose: 25 mg Ferrous Sulfate (Ferrous Sulfate 324 Mg Tablet.) 324 mg PO DAILY [facility] Last Admin: 10/03/24 08:54 Dose: 324 mg Hydroxyzine HCl (Hydroxyzine Hcl 25 Mg Tablet) 25 mg PO Q6H PRN PRN Reason: Anxiety Last Admin: 09/15/24 20:53 Dose: 25 mg Loperamide HCl (Loperamide Hcl 2 Mg Capsule) 2 mg PO DAILY PRN PRN Reason: Diarrhea Last Admin: 08/24/24 14:42 Dose: 2 mg Loratadine (Loratadine 10 Mg Tablet) 10 mg PO BEDTIME [facility] Last Admin: 10/02/24 20:36 Dose: 10 mg Magnesium Hydroxide (Milk Of Magnesia 30 Ml Oral.Susp) 30 ml PO DAILY PRN PRN Reason: Constipation Pt Own (Lenalidomide (15 Mg)) 1 each PO DAILY [facility] Last Admin: 10/03/24 09:49 Dose: Not Given Omeprazole (Omeprazole 20 Mg Capsule.) 20 mg PO DAILY@0630 [facility] Last Admin: 10/03/24 05:56 Dose: 20 mg Ondansetron HCl (Ondansetron Odt 4 Mg Tab.Rapdis) 4 mg TRANSLINGU Q4H PRN PRN Reason: Nausea and Vomiting Last Admin: 08/28/24 20:33 Dose: 4 mg Senna (Sennosides 8.6 Mg Tablet) 17.2 mg PO DAILY PRN PRN Reason: constipation Sertraline HCl (Sertraline Hcl 50 Mg Tablet) 50 mg PO DAILY [facility] Last Admin: 10/03/24 08:54 Dose: 50 mg Vitamin D (Cholecalciferol (Vitamin D3) 25 Mcg Tablet) 50 mcg PO DAILY [facility] Last Admin: 10/03/24 08:54 Dose: 50 mcg Allergies Allergies Allergy/AdvReac Type Severity Reaction Status Date / Time No Known Allergies Allergy Verified 08/05/24 15:00 [No Known Allergies*] Assessment & Plan Assessment & Plan (1) Schizophrenia: Status: Acute Code(s): F20.9 - Schizophrenia, unspecified (2) Dementia: Status: Acute Code(s): F03.90 - Unspecified dementia, unspecified severity, without behavioral disturbance, psychotic disturbance, mood disturbance, and anxiety Plan The patient is an elderly female with a past history of schizophrenia on Clozaril chronically psychotic who was admitted from the community since she was paranoid against her caregivers. Plan 09/18 continue tx. coordination with oncology Dr. Veloz to resume tx for multiple myeloma while inpt (question of billing issues, resolved). 09/19 continue tx 09/20 continue tx 09/21 continue tx. 09/22 continue tx. 09/23 continue tx. 09/24 continue tx. 09/25 continue tx 09/26 continue tx. VS stable but on low side. 09/27/2024 Continue plan of care patient appears somewhat apathetic 09/29 Next chemo tx (Denosumab infusion) on December [address] Baugh' office. Lenalinomide 15mg po daily for 15 days on and 15 days off. She had last dose on 09/27/2024. Re-start on 10/12/2024. 09/30 continue tx. 10/01 continue tx. 10/02 continue tx. 10/03 continue tx. Reason for continued inpatient stay Substantial Risk for: inability to function Time Spent With Patient Time: Total time managing care of this patient today ____ minutes.
[2024-10-03 17:36] LABS: Appearance Urine Clear; Color Urine Yellow; Glucose Urine UA Negative (Negative); Leukocyte Esterase Urine Negative (Negative); Nitrite Urine Negative (Negative); PH 5.5 (5.0-9.0); Urine Blood Negative (Negative); Urine Ketones Negative (Negative); Urine Protein Negative (Neg-Trace)
[2024-10-03 17:41] LABS: Bacteria Urine None Seen (None Seen); Hyaline Casts Urine 0-2 /LPF (0-2); RBC Urine 0-2 /HPF (0-2); WBC Urine 0-5 /HPF (0-5)
[2024-10-03 20:00] VITALS: BP 105/63; PULSE 78; RESP 16; TEMP 35.8; O2SAT 100
[2024-10-03] MEDS: Loratadine 10 MG TABLET PO (20:44)
[2024-10-03] MEDS: cloZAPine 100 MG TABLET 300 MG PO (20:44)
[2024-10-04] MEDS: Omeprazole 20 MG CAPSULE.DR PO (06:00)
[2024-10-04 08:00] VITALS: BP 123/65; PULSE 78; RESP 16; TEMP 36.6; O2SAT 100
[2024-10-04] MEDS: Acyclovir 200 MG CAPSULE 400 MG PO (08:43)
[2024-10-04] MEDS: cloZAPine 25 MG TABLET PO ×2 (08:46→15:00)
[2024-10-04] MEDS: Ferrous Sulfate 324 MG TABLET.DR PO (08:46)
[2024-10-04] MEDS: allopurinoL 100 MG TABLET PO (08:46)
[2024-10-04] MEDS: Calcium Carbonate 750 MG TAB.CHEW PO ×3 (08:46→20:56)
[2024-10-04] MEDS: Sertraline HCL 50 MG TABLET PO (08:46)
[2024-10-04] MEDS: Aspirin Enteric Coated 81 MG TABLET.DR PO (08:46)
[2024-10-04] MEDS: Cholecalciferol (Vitamin D3) 25 MCG TABLET 50 MCG PO (08:50)
--- NOTE | 2024-10-04 08:56 | HO.PSYCHPN ---
Subjective Subjective Date of Service: 10/04/24 Reason For Visit: paranoia Interim History: Pt slept through the night. Continues self dialoguing. Calm and without behavioral concerns. She is visible mostly for meals. She is eating well. She is taking medications as prescribed. Review of Systems Review of Systems Denies pain Denies medical concerns today. Yes all other systems are reviewed and are negative and Unobtainable due to mental status Mental Status Exam Mental Status Exam Narrative: Appearance: wearing casual clothing, fair hygine, in NAD Behavior: guarded, somewhat dismissive but polite Psychomotor: no retardation or agitation noted Speech: clear, latency noted, minimally spontaneous TP: poverty of thought, thought blocking TC: wanting to be left alone Mood: okay Affect: constricted SI: denies HI: denies VH/AH: internally preoccupied Delusions: guarded suspicious, cap gras delusions Insight/judgment: impaired x 2. memory/cog: alert, not oriented to month situation nor year. Patient Appearance: Fatigued and Disheveled Patient Orientation: Person Level of Consciousness: Alert Patient Behavior: Guarded and Good Eye Contact Mood Description: Withdrawn and Constricted Affect Description: Withdrawn Patient Cognition Impaired: Yes Ability to Follow Directions: Fair Speech Pattern: Spontaneous Speech Memory Description: Remote Impaired, Immediate Impaired, Episodic Impaired and Recent Impaired Diagnostics Vital Signs (24Hr): Vital Signs - 24 hr 10/03/24 20:00 Temperature 96.4 F L Pulse Rate 78 Respiratory Rate 16 Blood Pressure 105/63 Pulse Oximetry 100 Oxygen Delivery Method Room Air BMI result Body Mass Index 28.4 Labs 09/13/24 08:17 09/13/24 08:17 Labs: Laboratory Results - last 48 hr 10/03/24 16:45 Urine Color Yellow Urine Appearance Clear Urine pH 5.5 Ur Specific [place] 1.010 Urine Protein Negative Urine Glucose (UA) Negative Urine Ketones Negative Urine Blood Negative Urine Nitrite Negative Ur Leukocyte Esterase Negative Urine RBC 0-2 Urine WBC 0-5 Ur Squamous Epith Cells 3-5 Urine Bacteria None Seen Hyaline Casts 0-2 Imaging Radiology Impressions: ITS Impressions Chest X-Ray 08/05/24 15:34 IMPRESSION: No active pulmonary disease. Electronically signed by: Derrell Marti MD 08/05/2024 03:58 PM [facility] [place], [place] Medications Medications Current Medications Acetaminophen (Acetaminophen 325 Mg Tablet) 650 mg PO Q6H PRN PRN Reason: Headache/Pain Mild Scale (1-3) Acyclovir (Acyclovir 200 Mg Capsule) 400 mg PO DAILY [facility] Last Admin: 10/04/24 08:43 Dose: 400 mg Al Hydroxide/Mg Hydroxide (Magnesium Hydrox/Alum Hydrox 30 Ml Oral.Susp) 30 ml PO Q6H PRN PRN Reason: Heartburn/Nausea Albuterol Sulfate (Albuterol Sulfate 90 Mcg 8 Gm Inhaler) 2 puff INHALE Q4H PRN PRN Reason: Dyspnea Allopurinol (Allopurinol 100 Mg Tablet) 100 mg PO DAILY [facility] Last Admin: 10/04/24 08:46 Dose: 100 mg Aspirin (Aspirin Enteric Coated 81 Mg Tablet.) 81 mg PO DAILY [facility] Last Admin: 10/04/24 08:46 Dose: 81 mg Calcium Carbonate (Calcium Carbonate 750 Mg Tab.Chew) 750 mg PO TID [facility] Last Admin: 10/04/24 08:46 Dose: 750 mg Clozapine (Clozapine 100 Mg Tablet) 300 mg PO BEDTIME [facility] Last Admin: 10/03/24 20:44 Dose: 300 mg Clozapine (Clozapine 25 Mg Tablet) 25 mg PO BID@0800,1500 [facility] Last Admin: 10/04/24 08:46 Dose: 25 mg Ferrous Sulfate (Ferrous Sulfate 324 Mg Tablet.) 324 mg PO DAILY [facility] Last Admin: 10/04/24 08:46 Dose: 324 mg Hydroxyzine HCl (Hydroxyzine Hcl 25 Mg Tablet) 25 mg PO Q6H PRN PRN Reason: Anxiety Last Admin: 09/15/24 20:53 Dose: 25 mg Loperamide HCl (Loperamide Hcl 2 Mg Capsule) 2 mg PO DAILY PRN PRN Reason: Diarrhea Last Admin: 08/24/24 14:42 Dose: 2 mg Loratadine (Loratadine 10 Mg Tablet) 10 mg PO BEDTIME [facility] Last Admin: 10/03/24 20:44 Dose: 10 mg Magnesium Hydroxide (Milk Of Magnesia 30 Ml Oral.Susp) 30 ml PO DAILY PRN PRN Reason: Constipation Pt Own (Lenalidomide (15 Mg)) 1 each PO DAILY [facility] Last Admin: 10/04/24 08:50 Dose: Not Given Omeprazole (Omeprazole 20 Mg Capsule.) 20 mg PO DAILY@0630 [facility] Last Admin: 10/04/24 06:00 Dose: 20 mg Ondansetron HCl (Ondansetron Odt 4 Mg Tab.Rapdis) 4 mg TRANSLINGU Q4H PRN PRN Reason: Nausea and Vomiting Last Admin: 08/28/24 20:33 Dose: 4 mg Senna (Sennosides 8.6 Mg Tablet) 17.2 mg PO DAILY PRN PRN Reason: constipation Sertraline HCl (Sertraline Hcl 50 Mg Tablet) 50 mg PO DAILY [facility] Last Admin: 10/04/24 08:46 Dose: 50 mg Vitamin D (Cholecalciferol (Vitamin D3) 25 Mcg Tablet) 50 mcg PO DAILY [facility] Last Admin: 10/04/24 08:50 Dose: 50 mcg Allergies Allergies Allergy/AdvReac Type Severity Reaction Status Date / Time No Known Allergies Allergy Verified 08/05/24 15:00 [No Known Allergies*] Assessment & Plan Assessment & Plan (1) Schizophrenia: Status: Acute Code(s): F20.9 - Schizophrenia, unspecified (2) Dementia: Status: Acute Code(s): F03.90 - Unspecified dementia, unspecified severity, without behavioral disturbance, psychotic disturbance, mood disturbance, and anxiety Plan The patient is an elderly female with a past history of schizophrenia on Clozaril chronically psychotic who was admitted from the community since she was paranoid against her caregivers. Plan 09/18 continue tx. coordination with oncology Dr. Veloz to resume tx for multiple myeloma while inpt (question of billing issues, resolved). 09/19 continue tx 09/20 continue tx 09/21 continue tx. 09/22 continue tx. 09/23 continue tx. 09/24 continue tx. 09/25 continue tx 09/26 continue tx. VS stable but on low side. 09/27/2024 Continue plan of care patient appears somewhat apathetic 09/29 Next chemo tx (Denosumab infusion) on December [address] Baugh' office. Lenalinomide 15mg po daily for 15 days on and 15 days off. She had last dose on 09/27/2024. Re-start on 10/12/2024. 09/30 continue tx. 10/01 continue tx. 10/02 continue tx. 10/04: Continue current management and treatment plan. Reason for continued inpatient stay Substantial Risk for: inability to function and rapid decompensation Time Spent With Patient Time: Total time managing care of this patient today ____ minutes.
[2024-10-04 20:00] VITALS: BP 102/60; PULSE 84; RESP 18; TEMP 36.6; O2SAT 100
[2024-10-04] MEDS: cloZAPine 100 MG TABLET 300 MG PO (20:56)
[2024-10-04] MEDS: Loratadine 10 MG TABLET PO (20:56)
[2024-10-05] MEDS: Omeprazole 20 MG CAPSULE.DR PO (06:01)
[2024-10-05 08:00] VITALS: BP 119/74; PULSE 92; RESP 16; TEMP 36.2; O2SAT 100
[2024-10-05] MEDS: Aspirin Enteric Coated 81 MG TABLET.DR PO (08:43)
[2024-10-05] MEDS: Ferrous Sulfate 324 MG TABLET.DR PO (08:43)
[2024-10-05] MEDS: allopurinoL 100 MG TABLET PO (08:43)
[2024-10-05] MEDS: Acyclovir 200 MG CAPSULE 400 MG PO (08:43)
[2024-10-05] MEDS: Cholecalciferol (Vitamin D3) 25 MCG TABLET 50 MCG PO (08:43)
[2024-10-05] MEDS: Sertraline HCL 50 MG TABLET PO (08:43)
[2024-10-05] MEDS: cloZAPine 25 MG TABLET PO ×2 (08:43→16:10)
[2024-10-05] MEDS: Calcium Carbonate 750 MG TAB.CHEW PO ×3 (08:43→21:00)
--- NOTE | 2024-10-05 12:05 | HO.PSYCHPN ---
Subjective Subjective Date of Service: 10/05/24 Reason For Visit: paranoia Interim History: Pt slept through the night. Continues self dialoguing. Calm and without behavioral concerns. She is visible mostly for meals. She is eating well. She is taking medications as prescribed. Review of Systems Review of Systems Denies pain Denies medical concerns today. Yes all other systems are reviewed and are negative and Unobtainable due to mental status Mental Status Exam Mental Status Exam Narrative: Appearance: wearing casual clothing, fair hygine, in NAD Behavior: guarded, somewhat dismissive but polite Psychomotor: no retardation or agitation noted Speech: clear, latency noted, minimally spontaneous TP: poverty of thought, thought blocking TC: wanting to be left alone Mood: okay Affect: constricted SI: denies HI: denies VH/AH: internally preoccupied Delusions: guarded suspicious, cap gras delusions Insight/judgment: impaired x 2. memory/cog: alert, not oriented to month situation nor year. Patient Appearance: Fatigued and Disheveled Patient Orientation: Person Level of Consciousness: Alert Patient Behavior: Guarded and Good Eye Contact Mood Description: Withdrawn and Constricted Affect Description: Withdrawn Patient Cognition Impaired: Yes Ability to Follow Directions: Fair Speech Pattern: Spontaneous Speech Memory Description: Remote Impaired, Immediate Impaired, Episodic Impaired and Recent Impaired Diagnostics Vital Signs (24Hr): Vital Signs - 24 hr 10/04/24 20:00 10/05/24 08:00 Temperature 98 F 97.2 F Pulse Rate 84 92 Respiratory Rate 18 16 Blood Pressure 102/60 119/74 Pulse Oximetry 100 100 Oxygen Delivery Method Room Air Room Air BMI result Body Mass Index 28.4 Labs 09/13/24 08:17 09/13/24 08:17 Labs: Laboratory Results - last 48 hr 10/03/24 16:45 Urine Color Yellow Urine Appearance Clear Urine pH 5.5 Ur Specific [place] 1.010 Urine Protein Negative Urine Glucose (UA) Negative Urine Ketones Negative Urine Blood Negative Urine Nitrite Negative Ur Leukocyte Esterase Negative Urine RBC 0-2 Urine WBC 0-5 Ur Squamous Epith Cells 3-5 Urine Bacteria None Seen Hyaline Casts 0-2 Imaging Radiology Impressions: ITS Impressions Chest X-Ray 08/05/24 15:34 IMPRESSION: No active pulmonary disease. Electronically signed by: Derrell Marti MD 08/05/2024 03:58 PM [facility] [place] Medications Medications Current Medications Acetaminophen (Acetaminophen 325 Mg Tablet) 650 mg PO Q6H PRN PRN Reason: Headache/Pain Mild Scale (1-3) Acyclovir (Acyclovir 200 Mg Capsule) 400 mg PO DAILY [facility] Last Admin: 10/05/24 08:43 Dose: 400 mg Al Hydroxide/Mg Hydroxide (Magnesium Hydrox/Alum Hydrox 30 Ml Oral.Susp) 30 ml PO Q6H PRN PRN Reason: Heartburn/Nausea Albuterol Sulfate (Albuterol Sulfate 90 Mcg 8 Gm Inhaler) 2 puff INHALE Q4H PRN PRN Reason: Dyspnea Allopurinol (Allopurinol 100 Mg Tablet) 100 mg PO DAILY [facility] Last Admin: 10/05/24 08:43 Dose: 100 mg Aspirin (Aspirin Enteric Coated 81 Mg Tablet.) 81 mg PO DAILY [facility] Last Admin: 10/05/24 08:43 Dose: 81 mg Calcium Carbonate (Calcium Carbonate 750 Mg Tab.Chew) 750 mg PO TID [facility] Last Admin: 10/05/24 08:43 Dose: 750 mg Clozapine (Clozapine 100 Mg Tablet) 300 mg PO BEDTIME [facility] Last Admin: 10/04/24 20:56 Dose: 300 mg Clozapine (Clozapine 25 Mg Tablet) 25 mg PO BID@0800,1500 [facility] Last Admin: 10/05/24 08:43 Dose: 25 mg Ferrous Sulfate (Ferrous Sulfate 324 Mg Tablet.) 324 mg PO DAILY [facility] Last Admin: 10/05/24 08:43 Dose: 324 mg Hydroxyzine HCl (Hydroxyzine Hcl 25 Mg Tablet) 25 mg PO Q6H PRN PRN Reason: Anxiety Last Admin: 09/15/24 20:53 Dose: 25 mg Loperamide HCl (Loperamide Hcl 2 Mg Capsule) 2 mg PO DAILY PRN PRN Reason: Diarrhea Last Admin: 08/24/24 14:42 Dose: 2 mg Loratadine (Loratadine 10 Mg Tablet) 10 mg PO BEDTIME [facility] Last Admin: 10/04/24 20:56 Dose: 10 mg Magnesium Hydroxide (Milk Of Magnesia 30 Ml Oral.Susp) 30 ml PO DAILY PRN PRN Reason: Constipation Pt Own (Lenalidomide (15 Mg)) 1 each PO DAILY [facility] Last Admin: 10/05/24 08:43 Dose: Not Given Omeprazole (Omeprazole 20 Mg Capsule.) 20 mg PO DAILY@0630 [facility] Last Admin: 10/05/24 06:01 Dose: 20 mg Ondansetron HCl (Ondansetron Odt 4 Mg Tab.Rapdis) 4 mg TRANSLINGU Q4H PRN PRN Reason: Nausea and Vomiting Last Admin: 08/28/24 20:33 Dose: 4 mg Senna (Sennosides 8.6 Mg Tablet) 17.2 mg PO DAILY PRN PRN Reason: constipation Sertraline HCl (Sertraline Hcl 50 Mg Tablet) 50 mg PO DAILY [facility] Last Admin: 10/05/24 08:43 Dose: 50 mg Vitamin D (Cholecalciferol (Vitamin D3) 25 Mcg Tablet) 50 mcg PO DAILY [facility] Last Admin: 10/05/24 08:43 Dose: 50 mcg Allergies Allergies Allergy/AdvReac Type Severity Reaction Status Date / Time No Known Allergies Allergy Verified 08/05/24 15:00 [No Known Allergies*] Assessment & Plan Assessment & Plan (1) Schizophrenia: Status: Acute Code(s): F20.9 - Schizophrenia, unspecified (2) Dementia: Status: Acute Code(s): F03.90 - Unspecified dementia, unspecified severity, without behavioral disturbance, psychotic disturbance, mood disturbance, and anxiety Plan The patient is an elderly female with a past history of schizophrenia on Clozaril chronically psychotic who was admitted from the community since she was paranoid against her caregivers. Plan 09/18 continue tx. coordination with oncology Dr. Veloz to resume tx for multiple myeloma while inpt (question of billing issues, resolved). 09/19 continue tx 09/20 continue tx 09/21 continue tx. 09/22 continue tx. 09/23 continue tx. 09/24 continue tx. 09/25 continue tx 09/26 continue tx. VS stable but on low side. 09/27/2024 Continue plan of care patient appears somewhat apathetic 09/29 Next chemo tx (Denosumab infusion) on December [address] Baugh' office. Lenalinomide 15mg po daily for 15 days on and 15 days off. She had last dose on 09/27/2024. Re-start on 10/12/2024. 09/30 continue tx. 10/01 continue tx. 10/02 continue tx. 10/04: Continue current management and treatment plan. 10/05: continue current management and treatment plan. Reason for continued inpatient stay Substantial Risk for: inability to function and rapid decompensation Time Spent With Patient Time: Total time managing care of this patient today ____ minutes.
[2024-10-05 20:00] VITALS: BP 95/50; PULSE 73; RESP 16; TEMP 36.4; O2SAT 100
[2024-10-05] MEDS: Loratadine 10 MG TABLET PO (21:00)
[2024-10-05] MEDS: cloZAPine 100 MG TABLET 300 MG PO (21:00)
[2024-10-06] MEDS: Omeprazole 20 MG CAPSULE.DR PO (06:27)
[2024-10-06 08:03] VITALS: BP 101/59; PULSE 104; RESP 16; TEMP 36.4; O2SAT 100
[2024-10-06] MEDS: Aspirin Enteric Coated 81 MG TABLET.DR PO (08:04)
[2024-10-06] MEDS: Sertraline HCL 50 MG TABLET PO (08:04)
[2024-10-06] MEDS: cloZAPine 25 MG TABLET PO ×2 (08:04→16:50)
[2024-10-06] MEDS: Ferrous Sulfate 324 MG TABLET.DR PO (08:04)
[2024-10-06] MEDS: allopurinoL 100 MG TABLET PO (08:04)
[2024-10-06] MEDS: Calcium Carbonate 750 MG TAB.CHEW PO ×3 (08:05→20:17)
[2024-10-06] MEDS: Acyclovir 200 MG CAPSULE 400 MG PO (08:05)
[2024-10-06] MEDS: Cholecalciferol (Vitamin D3) 25 MCG TABLET 50 MCG PO (08:05)
--- NOTE | 2024-10-06 16:09 | HO.PSYCHPN ---
Subjective Subjective Date of Service: 10/06/24 Reason For Visit: paranoia Subjective Notes: Conditional Voluntary Interim History: The nursing staff reported the patient had been seclusive denies auditory hallucinations. She was seen only out for meals slept well. The public health social worker reported that there is no placement at this point. On interview the patient denies new symptoms chronically psychotic at baseline. Mental Status Exam Mental Status Exam Patient Appearance: Well Grooomed and Appropriate Patient Orientation: Person and Situation Level of Consciousness: Awake Patient Behavior: Guarded and Passive Mood Description: Withdrawn Affect Description: Blunted Patient Cognition Impaired: Yes Ability to Follow Directions: Good Speech Pattern: Clear Hallucinations: None Delusions: Paranoid Ideation and Ideas of Reference Thought Process: Distracted and Slowed Thinking Thought Content: positive for [place] and positive for Poverty of Content Judgement: Poor Diagnostics Vital Signs (24Hr): Vital Signs - 24 hr 10/05/24 20:00 10/06/24 08:03 Temperature 97.6 F 97.5 F Pulse Rate 73 104 H Respiratory Rate 16 16 Blood Pressure 95/50 L 101/59 L Pulse Oximetry 100 100 Oxygen Delivery Method Room Air Room Air BMI result Body Mass Index 28.4 Labs 09/13/24 08:17 09/13/24 08:17 Imaging Radiology Impressions: ITS Impressions Chest X-Ray 08/05/24 15:34 IMPRESSION: No active pulmonary disease. Electronically signed by: Derrell Marti MD 08/05/2024 03:58 PM [facility] Medications Medications Current Medications Acetaminophen (Acetaminophen 325 Mg Tablet) 650 mg PO Q6H PRN PRN Reason: Headache/Pain Mild Scale (1-3) Acyclovir (Acyclovir 200 Mg Capsule) 400 mg PO DAILY [facility] Last Admin: 10/06/24 08:05 Dose: 400 mg Al Hydroxide/Mg Hydroxide (Magnesium Hydrox/Alum Hydrox 30 Ml Oral.Susp) 30 ml PO Q6H PRN PRN Reason: Heartburn/Nausea Albuterol Sulfate (Albuterol Sulfate 90 Mcg 8 Gm Inhaler) 2 puff INHALE Q4H PRN PRN Reason: Dyspnea Allopurinol (Allopurinol 100 Mg Tablet) 100 mg PO DAILY [facility] Last Admin: 10/06/24 08:04 Dose: 100 mg Aspirin (Aspirin Enteric Coated 81 Mg Tablet.Dr) 81 mg PO DAILY [facility] Last Admin: 10/06/24 08:04 Dose: 81 mg Calcium Carbonate (Calcium Carbonate 750 Mg Tab.Chew) 750 mg PO TID [facility] Last Admin: 10/06/24 08:05 Dose: 750 mg Clozapine (Clozapine 100 Mg Tablet) 300 mg PO BEDTIME [facility] Last Admin: 10/05/24 21:00 Dose: 300 mg Clozapine (Clozapine 25 Mg Tablet) 25 mg PO BID@0800,1500 [facility] Last Admin: 10/06/24 08:04 Dose: 25 mg Ferrous Sulfate (Ferrous Sulfate 324 Mg Tablet.) 324 mg PO DAILY [facility] Last Admin: 10/06/24 08:04 Dose: 324 mg Hydroxyzine HCl (Hydroxyzine Hcl 25 Mg Tablet) 25 mg PO Q6H PRN PRN Reason: Anxiety Last Admin: 09/15/24 20:53 Dose: 25 mg Loperamide HCl (Loperamide Hcl 2 Mg Capsule) 2 mg PO DAILY PRN PRN Reason: Diarrhea Last Admin: 08/24/24 14:42 Dose: 2 mg Loratadine (Loratadine 10 Mg Tablet) 10 mg PO BEDTIME [facility] Last Admin: 10/05/24 21:00 Dose: 10 mg Magnesium Hydroxide (Milk Of Magnesia 30 Ml Oral.Susp) 30 ml PO DAILY PRN PRN Reason: Constipation Pt Own (Lenalidomide (15 Mg)) 1 each PO DAILY [facility] Last Admin: 10/06/24 08:10 Dose: Not Given Omeprazole (Omeprazole 20 Mg Capsule.) 20 mg PO DAILY@0630 [facility] Last Admin: 10/06/24 06:27 Dose: 20 mg Ondansetron HCl (Ondansetron Odt 4 Mg Tab.Rapdis) 4 mg TRANSLINGU Q4H PRN PRN Reason: Nausea and Vomiting Last Admin: 08/28/24 20:33 Dose: 4 mg Senna (Sennosides 8.6 Mg Tablet) 17.2 mg PO DAILY PRN PRN Reason: constipation Sertraline HCl (Sertraline Hcl 50 Mg Tablet) 50 mg PO DAILY [facility] Last Admin: 10/06/24 08:04 Dose: 50 mg Vitamin D (Cholecalciferol (Vitamin D3) 25 Mcg Tablet) 50 mcg PO DAILY [facility] Last Admin: 10/06/24 08:05 Dose: 50 mcg Allergies Allergies Allergy/AdvReac Type Severity Reaction Status Date / Time No Known Allergies Allergy Verified 08/05/24 15:00 [No Known Allergies*] Assessment & Plan Assessment & Plan (1) Schizophrenia: Status: Acute Code(s): F20.9 - Schizophrenia, unspecified (2) Dementia: Status: Acute Code(s): F03.90 - Unspecified dementia, unspecified severity, without behavioral disturbance, psychotic disturbance, mood disturbance, and anxiety Plan The patient is an elderly female with a past history of schizophrenia on Clozaril chronically psychotic who was admitted from the community since she was paranoid against her caregivers. Plan 09/18 continue tx. coordination with oncology Dr. Veloz to resume tx for multiple myeloma while inpt (question of billing issues, resolved). 09/19 continue tx 09/20 continue tx 09/21 continue tx. 09/22 continue tx. 09/23 continue tx. 09/24 continue tx. 09/25 continue tx 09/26 continue tx. VS stable but on low side. 09/27/2024 Continue plan of care patient appears somewhat apathetic 09/29 Next chemo tx (Denosumab infusion) on December [address] Baugh' office. Lenalinomide 15mg po daily for 15 days on and 15 days off. She had last dose on 09/27/2024. Re-start on 10/12/2024. 09/30 continue tx. 10/01 continue tx. 10/02 continue tx. 10/04: Continue current management and treatment plan. 10/05: continue current management and treatment plan. 10/06 continue same treatment waiting for placement Reason for continued inpatient stay Substantial Risk for: inability to function, rapid decompensation and med/psych decompensation Time Spent With Patient Time: Total time managing care of this patient today __20__ minutes.
[2024-10-06 20:00] VITALS: BP 90/55; PULSE 78; RESP 16; TEMP 36.4; O2SAT 100
[2024-10-06] MEDS: cloZAPine 100 MG TABLET 300 MG PO (20:18)
[2024-10-06] MEDS: Loratadine 10 MG TABLET PO (20:18)
[2024-10-07] MEDS: Omeprazole 20 MG CAPSULE.DR PO (06:08)
[2024-10-07 08:00] VITALS: BP 98/58; PULSE 88; RESP 16; TEMP 35.6; O2SAT 100
[2024-10-07 08:13] LABS: Neut%MD 43.9 %; Neutrophils Absolute Auto 1.3 x10*3/uL (2.0-8.3); WBCANC 2.9 X10*3/uL
[2024-10-07] MEDS: Aspirin Enteric Coated 81 MG TABLET.DR PO (08:32)
[2024-10-07] MEDS: Acyclovir 200 MG CAPSULE 400 MG PO (08:33)
[2024-10-07] MEDS: Ferrous Sulfate 324 MG TABLET.DR PO (08:33)
[2024-10-07] MEDS: Calcium Carbonate 750 MG TAB.CHEW PO ×3 (08:33→20:17)
[2024-10-07] MEDS: Sertraline HCL 50 MG TABLET PO (08:33)
[2024-10-07] MEDS: cloZAPine 25 MG TABLET PO ×2 (08:33→14:41)
[2024-10-07] MEDS: allopurinoL 100 MG TABLET PO (08:33)
[2024-10-07] MEDS: Cholecalciferol (Vitamin D3) 25 MCG TABLET 50 MCG PO (08:33)
--- NOTE | 2024-10-07 15:44 | HO.PSYCHPN ---
Subjective Subjective Date of Service: 10/07/24 Reason For Visit: paranoia Subjective Notes: Conditional Voluntary Interim History: The nursing staff reported the patient remains most of the time in her bed isolated pleasant cooperative. She slept well all night last night. The family welfare social work professor reported that unfortunately the nursing homes can not afford the treatment for her cancer and that is an impediment for [facility]. On interview the patient denies new symptoms, waiting for placement. Mental Status Exam Mental Status Exam Patient Appearance: Appropriate Patient Orientation: Person and Situation Level of Consciousness: Awake and Appropriate Patient Behavior: Guarded and Passive Mood Description: Withdrawn Affect Description: Constricted Patient Cognition Impaired: Yes Ability to Follow Directions: Good Speech Pattern: Clear Hallucinations: None Delusions: Not Present Thought Process: Distracted and Slowed Thinking Thought Content: positive for [place] and positive for Poverty of Content Judgement: Fair Diagnostics Vital Signs (24Hr): Vital Signs - 24 hr 10/06/24 20:00 10/07/24 08:00 Temperature 97.5 F 96.1 F L Pulse Rate 78 88 Respiratory Rate 16 16 Blood Pressure 90/55 L 98/58 L Pulse Oximetry 100 100 Oxygen Delivery Method Room Air Room Air BMI result Body Mass Index 28.4 Labs 09/13/24 08:17 09/13/24 08:17 Labs: Laboratory Results - last 48 hr 10/07/24 07:40 Absolute Neuts (auto) 1.3 L Imaging Radiology Impressions: ITS Impressions Chest X-Ray 08/05/24 15:34 IMPRESSION: No active pulmonary disease. Electronically signed by: Derrell Marti MD 08/05/2024 03:[address] [facility] Medications Medications Current Medications Acetaminophen (Acetaminophen 325 Mg Tablet) 650 mg PO Q6H PRN PRN Reason: Headache/Pain Mild Scale (1-3) Acyclovir (Acyclovir 200 Mg Capsule) 400 mg PO DAILY [facility] Last Admin: 10/07/24 08:33 Dose: 400 mg Al Hydroxide/Mg Hydroxide (Magnesium Hydrox/Alum Hydrox 30 Ml Oral.Susp) 30 ml PO Q6H PRN PRN Reason: Heartburn/Nausea Albuterol Sulfate (Albuterol Sulfate 90 Mcg 8 Gm Inhaler) 2 puff INHALE Q4H PRN PRN Reason: Dyspnea Allopurinol (Allopurinol 100 Mg Tablet) 100 mg PO DAILY [facility] Last Admin: 10/07/24 08:33 Dose: 100 mg Aspirin (Aspirin Enteric Coated 81 Mg Tablet.) 81 mg PO DAILY [facility] Last Admin: 10/07/24 08:32 Dose: 81 mg Calcium Carbonate (Calcium Carbonate 750 Mg Tab.Chew) 750 mg PO TID [facility] Last Admin: 10/07/24 14:42 Dose: 750 mg Clozapine (Clozapine 100 Mg Tablet) 300 mg PO BEDTIME [facility] Last Admin: 10/06/24 20:18 Dose: 300 mg Clozapine (Clozapine 25 Mg Tablet) 25 mg PO BID@0800,1500 [facility] Last Admin: 10/07/24 14:41 Dose: 25 mg Ferrous Sulfate (Ferrous Sulfate 324 Mg Tablet.) 324 mg PO DAILY [facility] Last Admin: 10/07/24 08:33 Dose: 324 mg Hydroxyzine HCl (Hydroxyzine Hcl 25 Mg Tablet) 25 mg PO Q6H PRN PRN Reason: Anxiety Last Admin: 09/15/24 20:53 Dose: 25 mg Loperamide HCl (Loperamide Hcl 2 Mg Capsule) 2 mg PO DAILY PRN PRN Reason: Diarrhea Last Admin: 08/24/24 14:42 Dose: 2 mg Loratadine (Loratadine 10 Mg Tablet) 10 mg PO BEDTIME [facility] Last Admin: 10/06/24 20:18 Dose: 10 mg Magnesium Hydroxide (Milk Of Magnesia 30 Ml Oral.Susp) 30 ml PO DAILY PRN PRN Reason: Constipation Pt Own (Lenalidomide (15 Mg)) 1 each PO DAILY [facility] Last Admin: 10/07/24 08:37 Dose: Not Given Omeprazole (Omeprazole 20 Mg Capsule.) 20 mg PO DAILY@0630 [facility] Last Admin: 10/07/24 06:08 Dose: 20 mg Ondansetron HCl (Ondansetron Odt 4 Mg Tab.Rapdis) 4 mg TRANSLINGU Q4H PRN PRN Reason: Nausea and Vomiting Last Admin: 08/28/24 20:33 Dose: 4 mg Senna (Sennosides 8.6 Mg Tablet) 17.2 mg PO DAILY PRN PRN Reason: constipation Sertraline HCl (Sertraline Hcl 50 Mg Tablet) 50 mg PO DAILY [facility] Last Admin: 10/07/24 08:33 Dose: 50 mg Vitamin D (Cholecalciferol (Vitamin D3) 25 Mcg Tablet) 50 mcg PO DAILY [facility] Last Admin: 10/07/24 08:33 Dose: 50 mcg Allergies Allergies Allergy/AdvReac Type Severity Reaction Status Date / Time No Known Allergies Allergy Verified 08/05/24 15:00 [No Known Allergies*] Assessment & Plan Assessment & Plan (1) Schizophrenia: Status: Acute Code(s): F20.9 - Schizophrenia, unspecified (2) Dementia: Status: Acute Code(s): F03.90 - Unspecified dementia, unspecified severity, without behavioral disturbance, psychotic disturbance, mood disturbance, and anxiety Plan The patient is an elderly female with a past history of schizophrenia on Clozaril chronically psychotic who was admitted from the community since she was paranoid against her caregivers. Plan 09/18 continue tx. coordination with oncology Dr. Veloz to resume tx for multiple myeloma while inpt (question of billing issues, resolved). 09/19 continue tx 09/20 continue tx 09/21 continue tx. 09/22 continue tx. 09/23 continue tx. 09/24 continue tx. 09/25 continue tx 09/26 continue tx. VS stable but on low side. 09/27/2024 Continue plan of care patient appears somewhat apathetic 09/29 Next chemo tx (Denosumab infusion) on December [address] Baugh' office. Lenalinomide 15mg po daily for 15 days on and 15 days off. She had last dose on 09/27/2024. Re-start on 10/12/2024. 09/30 continue tx. 10/01 continue tx. 10/02 continue tx. 10/04: Continue current management and treatment plan. 10/05: continue current management and treatment plan. 10/06 continue same treatment waiting for placement 10/07 continue same treatment waiting for placement Reason for continued inpatient stay Substantial Risk for: inability to function, rapid decompensation and med/psych decompensation Time Spent With Patient Time: Total time managing care of this patient today ___20_ minutes.
[2024-10-07 20:00] VITALS: BP 112/68; PULSE 76; RESP 16; TEMP 36.4; O2SAT 99
[2024-10-07] MEDS: cloZAPine 100 MG TABLET 300 MG PO (20:17)
[2024-10-07] MEDS: Loratadine 10 MG TABLET PO (20:17)
[2024-10-08] MEDS: Omeprazole 20 MG CAPSULE.DR PO (06:21)
[2024-10-08 08:35] VITALS: BP 122/77; PULSE 100; RESP 16; TEMP 36.5; O2SAT 100
[2024-10-08] MEDS: Ferrous Sulfate 324 MG TABLET.DR PO (08:39)
[2024-10-08] MEDS: allopurinoL 100 MG TABLET PO (08:39)
[2024-10-08] MEDS: Aspirin Enteric Coated 81 MG TABLET.DR PO (08:39)
[2024-10-08] MEDS: Sertraline HCL 50 MG TABLET PO (08:39)
[2024-10-08] MEDS: Acyclovir 200 MG CAPSULE 400 MG PO (08:39)
[2024-10-08] MEDS: cloZAPine 25 MG TABLET PO ×2 (08:39→14:31)
[2024-10-08] MEDS: Calcium Carbonate 750 MG TAB.CHEW PO ×3 (08:39→20:35)
[2024-10-08] MEDS: Cholecalciferol (Vitamin D3) 25 MCG TABLET 50 MCG PO (08:39)
--- NOTE | 2024-10-08 14:35 | P.PNPSI_ITS ---
Subjective Subjective Date of Service: 10/08/24 Reason For Visit: paranoia Subjective Notes: Conditional Voluntary Interim History: The nursing staff reported the patient had been self dialogue in at times dismissive with staff withdrawn guarded slept well last night. On interview the patient denies new symptoms waiting for placement. Mental Status Exam Mental Status Exam Patient Appearance: Appropriate Patient Orientation: Person and Situation Level of Consciousness: Awake and Appropriate Patient Behavior: Guarded and Passive Mood Description: Withdrawn Affect Description: Constricted Patient Cognition Impaired: Yes Ability to Follow Directions: Good Speech Pattern: Clear Hallucinations: None Delusions: Paranoid Ideation and Ideas of Reference Thought Process: Distracted and Slowed Thinking Thought Content: positive for [place] and positive for Poverty of Content Judgement: Fair Diagnostics Vital Signs (24Hr): Vital Signs - 24 hr 10/07/24 20:00 10/08/24 08:35 Temperature 97.5 F 97.7 F Pulse Rate 76 100 Respiratory Rate 16 16 Blood Pressure 112/68 122/77 Pulse Oximetry 99 100 Oxygen Delivery Method Room Air Room Air BMI result Body Mass Index 28.4 Labs 09/13/24 08:17 09/13/24 08:17 Labs: Laboratory Results - last 48 hr 10/07/24 07:40 Absolute Neuts (auto) 1.3 L Imaging Radiology Impressions: ITS Impressions Chest X-Ray 08/05/24 15:34 IMPRESSION: No active pulmonary disease. Electronically signed by: Derrell Marti MD 08/05/2024 03:58 PM [facility] Medications Medications Current Medications Acetaminophen (Acetaminophen 325 Mg Tablet) 650 mg PO Q6H PRN PRN Reason: Headache/Pain Mild Scale (1-3) Acyclovir (Acyclovir 200 Mg Capsule) 400 mg PO DAILY [facility] Last Admin: 10/08/24 08:39 Dose: 400 mg Al Hydroxide/Mg Hydroxide (Magnesium Hydrox/Alum Hydrox 30 Ml Oral.Susp) 30 ml PO Q6H PRN PRN Reason: Heartburn/Nausea Albuterol Sulfate (Albuterol Sulfate 90 Mcg 8 Gm Inhaler) 2 puff INHALE Q4H PRN PRN Reason: Dyspnea Allopurinol (Allopurinol 100 Mg Tablet) 100 mg PO DAILY [facility] Last Admin: 10/08/24 08:39 Dose: 100 mg Aspirin (Aspirin Enteric Coated 81 Mg Tablet.Dr) 81 mg PO DAILY [facility] Last Admin: 10/08/24 08:39 Dose: 81 mg Calcium Carbonate (Calcium Carbonate 750 Mg Tab.Chew) 750 mg PO TID [facility] Last Admin: 10/08/24 14:31 Dose: 750 mg Clozapine (Clozapine 100 Mg Tablet) 300 mg PO BEDTIME [facility] Last Admin: 10/07/24 20:17 Dose: 300 mg Clozapine (Clozapine 25 Mg Tablet) 25 mg PO BID@0800,1500 [facility] Last Admin: 10/08/24 14:31 Dose: 25 mg Ferrous Sulfate (Ferrous Sulfate 324 Mg Tablet.) 324 mg PO DAILY [facility] Last Admin: 10/08/24 08:39 Dose: 324 mg Hydroxyzine HCl (Hydroxyzine Hcl 25 Mg Tablet) 25 mg PO Q6H PRN PRN Reason: Anxiety Last Admin: 09/15/24 20:53 Dose: 25 mg Loperamide HCl (Loperamide Hcl 2 Mg Capsule) 2 mg PO DAILY PRN PRN Reason: Diarrhea Last Admin: 08/24/24 14:42 Dose: 2 mg Loratadine (Loratadine 10 Mg Tablet) 10 mg PO BEDTIME [facility] Last Admin: 10/07/24 20:17 Dose: 10 mg Magnesium Hydroxide (Milk Of Magnesia 30 Ml Oral.Susp) 30 ml PO DAILY PRN PRN Reason: Constipation Pt Own (Lenalidomide (15 Mg)) 1 each PO DAILY [facility] Last Admin: 10/08/24 08:39 Dose: Not Given Omeprazole (Omeprazole 20 Mg Capsule.) 20 mg PO DAILY@0630 [facility] Last Admin: 10/08/24 06:21 Dose: 20 mg Ondansetron HCl (Ondansetron Odt 4 Mg Tab.Rapdis) 4 mg TRANSLINGU Q4H PRN PRN Reason: Nausea and Vomiting Last Admin: 08/28/24 20:33 Dose: 4 mg Senna (Sennosides 8.6 Mg Tablet) 17.2 mg PO DAILY PRN PRN Reason: constipation Sertraline HCl (Sertraline Hcl 50 Mg Tablet) 50 mg PO DAILY [facility] Last Admin: 10/08/24 08:39 Dose: 50 mg Vitamin D (Cholecalciferol (Vitamin D3) 25 Mcg Tablet) 50 mcg PO DAILY [facility] Last Admin: 10/08/24 08:39 Dose: 50 mcg Allergies Allergies Allergy/AdvReac Type Severity Reaction Status Date / Time No Known Allergies Allergy Verified 08/05/24 15:00 [No Known Allergies*] Assessment & Plan Assessment & Plan (1) Schizophrenia: Status: Acute Code(s): F20.9 - Schizophrenia, unspecified (2) Dementia: Status: Acute Code(s): F03.90 - Unspecified dementia, unspecified severity, without behavioral disturbance, psychotic disturbance, mood disturbance, and anxiety Plan The patient is an elderly female with a past history of schizophrenia on Clozaril chronically psychotic who was admitted from the community since she was paranoid against her caregivers. Plan 09/18 continue tx. coordination with oncology Dr. Veloz to resume tx for multiple myeloma while inpt (question of billing issues, resolved). 09/19 continue tx 09/20 continue tx 09/21 continue tx. 09/22 continue tx. 09/23 continue tx. 09/24 continue tx. 09/25 continue tx 09/26 continue tx. VS stable but on low side. 09/27/2024 Continue plan of care patient appears somewhat apathetic 09/29 Next chemo tx (Denosumab infusion) on December [address] Baugh' office. Lenalinomide 15mg po daily for 15 days on and 15 days off. She had last dose on 09/27/2024. Re-start on 10/12/2024. 09/30 continue tx. 10/01 continue tx. 10/02 continue tx. 10/04: Continue current management and treatment plan. 10/05: continue current management and treatment plan. 10/06 continue same treatment waiting for placement 10/07 continue same treatment waiting for placement 10/08 keep same treatment Reason for continued inpatient stay Substantial Risk for: inability to function, rapid decompensation and med/psych decompensation Time Spent With Patient Time: Total time managing care of this patient today _20___ minutes.
[2024-10-08 20:00] VITALS: BP 111/60; PULSE 83; RESP 16; TEMP 36.1; O2SAT 99
[2024-10-08] MEDS: cloZAPine 100 MG TABLET 300 MG PO (20:34)
[2024-10-08] MEDS: Loratadine 10 MG TABLET PO (20:35)
[2024-10-09] MEDS: Omeprazole 20 MG CAPSULE.DR PO (06:15)
[2024-10-09 08:00] VITALS: BP 123/61; PULSE 96; RESP 16; TEMP 36; O2SAT 99
[2024-10-09] MEDS: Aspirin Enteric Coated 81 MG TABLET.DR PO (08:14)
[2024-10-09] MEDS: cloZAPine 25 MG TABLET PO ×2 (08:14→14:51)
[2024-10-09] MEDS: allopurinoL 100 MG TABLET PO (08:14)
[2024-10-09] MEDS: Acyclovir 200 MG CAPSULE 400 MG PO (08:15)
[2024-10-09] MEDS: Sertraline HCL 50 MG TABLET PO (08:15)
[2024-10-09] MEDS: Calcium Carbonate 750 MG TAB.CHEW PO ×3 (08:15→20:22)
[2024-10-09] MEDS: Cholecalciferol (Vitamin D3) 25 MCG TABLET 50 MCG PO (08:15)
[2024-10-09] MEDS: Ferrous Sulfate 324 MG TABLET.DR PO (08:15)
--- NOTE | 2024-10-09 16:54 | P.PNPSI_ITS ---
Subjective Subjective Date of Service: 10/09/24 Reason For Visit: paranoia Subjective Notes: Conditional Voluntary Interim History: The nursing staff reported the patient had been withdrawn, guarded no changes in her mental status. She slept well last night and she had been compliant with treatment. On interview the patient denies new symptoms, waiting for placement. Mental Status Exam Mental Status Exam Patient Appearance: Appropriate Patient Orientation: Person and Situation Level of Consciousness: Awake and Appropriate Patient Behavior: Guarded and Passive Mood Description: Withdrawn Affect Description: Constricted Patient Cognition Impaired: Yes Ability to Follow Directions: Good Speech Pattern: Clear Hallucinations: Auditory Delusions: Paranoid Ideation and Ideas of Reference Thought Process: Distracted and Slowed Thinking Thought Content: positive for [place] and positive for Poverty of Content Judgement: Fair Diagnostics Vital Signs (24Hr): Vital Signs - 24 hr 10/08/24 20:00 10/09/24 08:00 Temperature 97 F 96.8 F Pulse Rate 83 96 Respiratory Rate 16 16 Blood Pressure 111/60 123/61 Pulse Oximetry 99 99 Oxygen Delivery Method Room Air Room Air BMI result Body Mass Index 28.4 Labs 09/13/24 08:17 09/13/24 08:17 Imaging Radiology Impressions: ITS Impressions Chest X-Ray 08/05/24 15:34 IMPRESSION: No active pulmonary disease. Electronically signed by: Derrell Marti MD 08/05/2024 03:58 PM [facility] Medications Medications Current Medications Acetaminophen (Acetaminophen 325 Mg Tablet) 650 mg PO Q6H PRN PRN Reason: Headache/Pain Mild Scale (1-3) Acyclovir (Acyclovir 200 Mg Capsule) 400 mg PO DAILY [facility] Last Admin: 10/09/24 08:15 Dose: 400 mg Al Hydroxide/Mg Hydroxide (Magnesium Hydrox/Alum Hydrox 30 Ml Oral.Susp) 30 ml PO Q6H PRN PRN Reason: Heartburn/Nausea Albuterol Sulfate (Albuterol Sulfate 90 Mcg 8 Gm Inhaler) 2 puff INHALE Q4H PRN PRN Reason: Dyspnea Allopurinol (Allopurinol 100 Mg Tablet) 100 mg PO DAILY [facility] Last Admin: 10/09/24 08:14 Dose: 100 mg Aspirin (Aspirin Enteric Coated 81 Mg Tablet.Dr) 81 mg PO DAILY [facility] Last Admin: 10/09/24 08:14 Dose: 81 mg Calcium Carbonate (Calcium Carbonate 750 Mg Tab.Chew) 750 mg PO TID [facility] Last Admin: 10/09/24 14:51 Dose: 750 mg Clozapine (Clozapine 100 Mg Tablet) 300 mg PO BEDTIME [facility] Last Admin: 10/08/24 20:34 Dose: 300 mg Clozapine (Clozapine 25 Mg Tablet) 25 mg PO BID@0800,1500 [facility] Last Admin: 10/09/24 14:51 Dose: 25 mg Ferrous Sulfate (Ferrous Sulfate 324 Mg Tablet.) 324 mg PO DAILY [facility] Last Admin: 10/09/24 08:15 Dose: 324 mg Hydroxyzine HCl (Hydroxyzine Hcl 25 Mg Tablet) 25 mg PO Q6H PRN PRN Reason: Anxiety Last Admin: 09/15/24 20:53 Dose: 25 mg Loperamide HCl (Loperamide Hcl 2 Mg Capsule) 2 mg PO DAILY PRN PRN Reason: Diarrhea Last Admin: 08/24/24 14:42 Dose: 2 mg Loratadine (Loratadine 10 Mg Tablet) 10 mg PO BEDTIME [facility] Last Admin: 10/08/24 20:35 Dose: 10 mg Magnesium Hydroxide (Milk Of Magnesia 30 Ml Oral.Susp) 30 ml PO DAILY PRN PRN Reason: Constipation Pt Own (Lenalidomide (15 Mg)) 1 each PO DAILY [facility] Last Admin: 10/09/24 08:19 Dose: Not Given Omeprazole (Omeprazole 20 Mg Capsule.) 20 mg PO DAILY@0630 [facility] Last Admin: 10/09/24 06:15 Dose: 20 mg Ondansetron HCl (Ondansetron Odt 4 Mg Tab.Rapdis) 4 mg TRANSLINGU Q4H PRN PRN Reason: Nausea and Vomiting Last Admin: 08/28/24 20:33 Dose: 4 mg Senna (Sennosides 8.6 Mg Tablet) 17.2 mg PO DAILY PRN PRN Reason: constipation Sertraline HCl (Sertraline Hcl 50 Mg Tablet) 50 mg PO DAILY [facility] Last Admin: 10/09/24 08:15 Dose: 50 mg Vitamin D (Cholecalciferol (Vitamin D3) 25 Mcg Tablet) 50 mcg PO DAILY [facility] Last Admin: 10/09/24 08:15 Dose: 50 mcg Allergies Allergies Allergy/AdvReac Type Severity Reaction Status Date / Time No Known Allergies Allergy Verified 08/05/24 15:00 [No Known Allergies*] Assessment & Plan Assessment & Plan (1) Schizophrenia: Status: Acute Code(s): F20.9 - Schizophrenia, unspecified (2) Dementia: Status: Acute Code(s): F03.90 - Unspecified dementia, unspecified severity, without behavioral disturbance, psychotic disturbance, mood disturbance, and anxiety Plan The patient is an elderly female with a past history of schizophrenia on Clozaril chronically psychotic who was admitted from the community since she was paranoid against her caregivers. Plan 09/18 continue tx. coordination with oncology Dr. Veloz to resume tx for multiple myeloma while inpt (question of billing issues, resolved). 09/19 continue tx 09/20 continue tx 09/21 continue tx. 09/22 continue tx. 09/23 continue tx. 09/24 continue tx. 09/25 continue tx 09/26 continue tx. VS stable but on low side. 09/27/2024 Continue plan of care patient appears somewhat apathetic 09/29 Next chemo tx (Denosumab infusion) on December [address] Baugh' office. Lenalinomide 15mg po daily for 15 days on and 15 days off. She had last dose on 09/27/2024. Re-start on 10/12/2024. 09/30 continue tx. 10/01 continue tx. 10/02 continue tx. 10/04: Continue current management and treatment plan. 10/05: continue current management and treatment plan. 10/06 continue same treatment waiting for placement 10/07 continue same treatment waiting for placement 10/08 keep same treatment. 10/09 keep same treatment Reason for continued inpatient stay Substantial Risk for: inability to function, rapid decompensation and med/psych decompensation Time Spent With Patient Time: Total time managing care of this patient today __20__ minutes.
[2024-10-09 20:00] VITALS: BP 101/60; PULSE 83; RESP 16; TEMP 36.9; O2SAT 100
[2024-10-09] MEDS: Loratadine 10 MG TABLET PO (20:22)
[2024-10-09] MEDS: cloZAPine 100 MG TABLET 300 MG PO (20:22)
[2024-10-10] MEDS: Omeprazole 20 MG CAPSULE.DR PO (06:04)
[2024-10-10 08:00] VITALS: BP 114/59; PULSE 91; RESP 18; TEMP 36; O2SAT 100
[2024-10-10] MEDS: cloZAPine 25 MG TABLET PO ×2 (08:32→14:34)
[2024-10-10] MEDS: Aspirin Enteric Coated 81 MG TABLET.DR PO (08:32)
[2024-10-10] MEDS: Calcium Carbonate 750 MG TAB.CHEW PO ×3 (08:32→19:53)
[2024-10-10] MEDS: Cholecalciferol (Vitamin D3) 25 MCG TABLET 50 MCG PO (08:32)
[2024-10-10] MEDS: Ferrous Sulfate 324 MG TABLET.DR PO (08:33)
[2024-10-10] MEDS: Sertraline HCL 50 MG TABLET PO (08:33)
[2024-10-10] MEDS: Acyclovir 200 MG CAPSULE 400 MG PO (08:33)
[2024-10-10] MEDS: allopurinoL 100 MG TABLET PO (08:33)
--- NOTE | 2024-10-10 17:04 | P.PNPSI_ITS ---
Subjective Subjective Date of Service: 10/10/24 Reason For Visit: paranoia Subjective Notes: Conditional Voluntary Interim History: The nursing staff reported the patient had been isolative medication compliant responding to internal stimuli, no changes in mental status. She slept 4 hours. On interview the patient denies new symptoms, waiting for placement. Mental Status Exam Mental Status Exam Patient Appearance: Appropriate Patient Orientation: Person and Situation Level of Consciousness: Awake and Appropriate Patient Behavior: Guarded and Passive Mood Description: Withdrawn Affect Description: Constricted Patient Cognition Impaired: Yes Ability to Follow Directions: Good Speech Pattern: Clear Hallucinations: None Delusions: Paranoid Ideation and Ideas of Reference Thought Process: Distracted and Slowed Thinking Thought Content: positive for [place] and positive for Poverty of Content Judgement: Fair Diagnostics Vital Signs (24Hr): Vital Signs - 24 hr 10/09/24 20:00 10/10/24 08:00 Temperature 98.5 F 96.8 F Pulse Rate 83 91 Respiratory Rate 16 18 Blood Pressure 101/60 114/59 L Pulse Oximetry 100 100 Oxygen Delivery Method Room Air Room Air BMI result Body Mass Index 28.4 Labs 09/13/24 08:17 09/13/24 08:17 Imaging Radiology Impressions: ITS Impressions Chest X-Ray 08/05/24 15:34 IMPRESSION: No active pulmonary disease. Electronically signed by: Derrell Marti MD 08/05/2024 03:58 PM [facility] Medications Medications Current Medications Acetaminophen (Acetaminophen 325 Mg Tablet) 650 mg PO Q6H PRN PRN Reason: Headache/Pain Mild Scale (1-3) Acyclovir (Acyclovir 200 Mg Capsule) 400 mg PO DAILY [facility] Last Admin: 10/10/24 08:33 Dose: 400 mg Al Hydroxide/Mg Hydroxide (Magnesium Hydrox/Alum Hydrox 30 Ml Oral.Susp) 30 ml PO Q6H PRN PRN Reason: Heartburn/Nausea Albuterol Sulfate (Albuterol Sulfate 90 Mcg 8 Gm Inhaler) 2 puff INHALE Q4H PRN PRN Reason: Dyspnea Allopurinol (Allopurinol 100 Mg Tablet) 100 mg PO DAILY [facility] Last Admin: 10/10/24 08:33 Dose: 100 mg Aspirin (Aspirin Enteric Coated 81 Mg Tablet.Dr) 81 mg PO DAILY [facility] Last Admin: 10/10/24 08:32 Dose: 81 mg Calcium Carbonate (Calcium Carbonate 750 Mg Tab.Chew) 750 mg PO TID [facility] Last Admin: 10/10/24 14:34 Dose: 750 mg Clozapine (Clozapine 100 Mg Tablet) 300 mg PO BEDTIME [facility] Last Admin: 10/09/24 20:22 Dose: 300 mg Clozapine (Clozapine 25 Mg Tablet) 25 mg PO BID@0800,1500 [facility] Last Admin: 10/10/24 14:34 Dose: 25 mg Ferrous Sulfate (Ferrous Sulfate 324 Mg Tablet.) 324 mg PO DAILY [facility] Last Admin: 10/10/24 08:33 Dose: 324 mg Hydroxyzine HCl (Hydroxyzine Hcl 25 Mg Tablet) 25 mg PO Q6H PRN PRN Reason: Anxiety Last Admin: 09/15/24 20:53 Dose: 25 mg Loperamide HCl (Loperamide Hcl 2 Mg Capsule) 2 mg PO DAILY PRN PRN Reason: Diarrhea Last Admin: 08/24/24 14:42 Dose: 2 mg Loratadine (Loratadine 10 Mg Tablet) 10 mg PO BEDTIME [facility] Last Admin: 10/09/24 20:22 Dose: 10 mg Magnesium Hydroxide (Milk Of Magnesia 30 Ml Oral.Susp) 30 ml PO DAILY PRN PRN Reason: Constipation Pt Own (Lenalidomide (15 Mg)) 1 each PO DAILY [facility] Last Admin: 10/10/24 09:08 Dose: Not Given Omeprazole (Omeprazole 20 Mg Capsule.) 20 mg PO DAILY@0630 [facility] Last Admin: 10/10/24 06:04 Dose: 20 mg Ondansetron HCl (Ondansetron Odt 4 Mg Tab.Rapdis) 4 mg TRANSLINGU Q4H PRN PRN Reason: Nausea and Vomiting Last Admin: 08/28/24 20:33 Dose: 4 mg Senna (Sennosides 8.6 Mg Tablet) 17.2 mg PO DAILY PRN PRN Reason: constipation Sertraline HCl (Sertraline Hcl 50 Mg Tablet) 50 mg PO DAILY [facility] Last Admin: 10/10/24 08:33 Dose: 50 mg Vitamin D (Cholecalciferol (Vitamin D3) 25 Mcg Tablet) 50 mcg PO DAILY [facility] Last Admin: 10/10/24 08:32 Dose: 50 mcg Allergies Allergies Allergy/AdvReac Type Severity Reaction Status Date / Time No Known Allergies Allergy Verified 08/05/24 15:00 [No Known Allergies*] Assessment & Plan Assessment & Plan (1) Schizophrenia: Status: Acute Code(s): F20.9 - Schizophrenia, unspecified (2) Dementia: Status: Acute Code(s): F03.90 - Unspecified dementia, unspecified severity, without behavioral disturbance, psychotic disturbance, mood disturbance, and anxiety Plan The patient is an elderly female with a past history of schizophrenia on Clozaril chronically psychotic who was admitted from the community since she was paranoid against her caregivers. Plan 09/18 continue tx. coordination with oncology Dr. Veloz to resume tx for multiple myeloma while inpt (question of billing issues, resolved). 09/19 continue tx 09/20 continue tx 09/21 continue tx. 09/22 continue tx. 09/23 continue tx. 09/24 continue tx. 09/25 continue tx 09/26 continue tx. VS stable but on low side. 09/27/2024 Continue plan of care patient appears somewhat apathetic 09/29 Next chemo tx (Denosumab infusion) on December [address] Baugh' office. Lenalinomide 15mg po daily for 15 days on and 15 days off. She had last dose on 09/27/2024. Re-start on 10/12/2024. 09/30 continue tx. 10/01 continue tx. 10/02 continue tx. 10/04: Continue current management and treatment plan. 10/05: continue current management and treatment plan. 10/06 continue same treatment waiting for placement 10/07 continue same treatment waiting for placement 10/08 keep same treatment. 10/09 keep same treatment 10/10 keep same treatment Reason for continued inpatient stay Substantial Risk for: inability to function, rapid decompensation and med/psych decompensation Time Spent With Patient Time: Total time managing care of this patient today __20__ minutes.
[2024-10-10] MEDS: Loratadine 10 MG TABLET PO (19:53)
[2024-10-10] MEDS: cloZAPine 100 MG TABLET 300 MG PO (19:53)
[2024-10-10 20:00] VITALS: BP 122/67; PULSE 87; RESP 16; TEMP 36.6; O2SAT 99
[2024-10-11] MEDS: Omeprazole 20 MG CAPSULE.DR PO (05:17)
[2024-10-11 08:00] VITALS: BP 116/62; PULSE 95; RESP 18; TEMP 36.6; O2SAT 100
[2024-10-11] MEDS: allopurinoL 100 MG TABLET PO (08:32)
[2024-10-11] MEDS: Calcium Carbonate 750 MG TAB.CHEW PO ×3 (08:32→20:23)
[2024-10-11] MEDS: Aspirin Enteric Coated 81 MG TABLET.DR PO (08:32)
[2024-10-11] MEDS: Acyclovir 200 MG CAPSULE 400 MG PO (08:32)
[2024-10-11] MEDS: cloZAPine 25 MG TABLET PO ×2 (08:32→14:47)
[2024-10-11] MEDS: Sertraline HCL 50 MG TABLET PO (08:32)
[2024-10-11] MEDS: Ferrous Sulfate 324 MG TABLET.DR PO (08:32)
[2024-10-11] MEDS: Cholecalciferol (Vitamin D3) 25 MCG TABLET 50 MCG PO (08:33)
--- NOTE | 2024-10-11 16:41 | P.PNPSI_ITS ---
Subjective Subjective Date of Service: 10/11/24 Reason For Visit: paranoia Interim History: no problems, questions, complaints. seen with [facility]. per staff, isolative. taking meds and meals. +RIS. Mental Status Exam Mental Status Exam Patient Appearance: Appropriate Patient Orientation: Person and Situation Level of Consciousness: Awake and Appropriate Patient Behavior: Guarded and Passive Mood Description: Withdrawn Affect Description: Constricted Patient Cognition Impaired: Yes Ability to Follow Directions: Good Speech Pattern: Clear Hallucinations: None Delusions: Paranoid Ideation and Ideas of Reference Thought Process: Distracted and Slowed Thinking Thought Content: positive for [place] and positive for Poverty of Content Judgement: Fair Diagnostics Vital Signs (24Hr): Vital Signs - 24 hr 10/10/24 20:00 10/11/24 08:00 Temperature 98 F 97.9 F Pulse Rate 87 95 Respiratory Rate 16 18 Blood Pressure 122/67 116/62 Pulse Oximetry 99 100 Oxygen Delivery Method Room Air Room Air BMI result Body Mass Index 28.4 Labs 09/13/24 08:17 09/13/24 08:17 Imaging Radiology Impressions: ITS Impressions Chest X-Ray 08/05/24 15:34 IMPRESSION: No active pulmonary disease. Electronically signed by: Derrell Marti MD 08/05/2024 03:58 PM [facility] [place] Medications Medications Current Medications Acetaminophen (Acetaminophen 325 Mg Tablet) 650 mg PO Q6H PRN PRN Reason: Headache/Pain Mild Scale (1-3) Acyclovir (Acyclovir 200 Mg Capsule) 400 mg PO DAILY [facility] Last Admin: 10/11/24 08:32 Dose: 400 mg Al Hydroxide/Mg Hydroxide (Magnesium Hydrox/Alum Hydrox 30 Ml Oral.Susp) 30 ml PO Q6H PRN PRN Reason: Heartburn/Nausea Albuterol Sulfate (Albuterol Sulfate 90 Mcg 8 Gm Inhaler) 2 puff INHALE Q4H PRN PRN Reason: Dyspnea Allopurinol (Allopurinol 100 Mg Tablet) 100 mg PO DAILY [facility] Last Admin: 10/11/24 08:32 Dose: 100 mg Aspirin (Aspirin Enteric Coated 81 Mg Tablet.Dr) 81 mg PO DAILY [facility] Last Admin: 10/11/24 08:32 Dose: 81 mg Calcium Carbonate (Calcium Carbonate 750 Mg Tab.Chew) 750 mg PO TID [facility] Last Admin: 10/11/24 14:47 Dose: 750 mg Clozapine (Clozapine 100 Mg Tablet) 300 mg PO BEDTIME [facility] Last Admin: 10/10/24 19:53 Dose: 300 mg Clozapine (Clozapine 25 Mg Tablet) 25 mg PO BID@0800,1500 [facility] Last Admin: 10/11/24 14:47 Dose: 25 mg Ferrous Sulfate (Ferrous Sulfate 324 Mg Tablet.) 324 mg PO DAILY [facility] Last Admin: 10/11/24 08:32 Dose: 324 mg Hydroxyzine HCl (Hydroxyzine Hcl 25 Mg Tablet) 25 mg PO Q6H PRN PRN Reason: Anxiety Last Admin: 09/15/24 20:53 Dose: 25 mg Loperamide HCl (Loperamide Hcl 2 Mg Capsule) 2 mg PO DAILY PRN PRN Reason: Diarrhea Last Admin: 08/24/24 14:42 Dose: 2 mg Loratadine (Loratadine 10 Mg Tablet) 10 mg PO BEDTIME [facility] Last Admin: 10/10/24 19:53 Dose: 10 mg Magnesium Hydroxide (Milk Of Magnesia 30 Ml Oral.Susp) 30 ml PO DAILY PRN PRN Reason: Constipation Pt Own (Lenalidomide (15 Mg)) 1 each PO DAILY [facility] Last Admin: 10/11/24 08:38 Dose: Not Given Omeprazole (Omeprazole 20 Mg Capsule.) 20 mg PO DAILY@0630 [facility] Last Admin: 10/11/24 05:17 Dose: 20 mg Ondansetron HCl (Ondansetron Odt 4 Mg Tab.Rapdis) 4 mg TRANSLINGU Q4H PRN PRN Reason: Nausea and Vomiting Last Admin: 08/28/24 20:33 Dose: 4 mg Senna (Sennosides 8.6 Mg Tablet) 17.2 mg PO DAILY PRN PRN Reason: constipation Sertraline HCl (Sertraline Hcl 50 Mg Tablet) 50 mg PO DAILY [facility] Last Admin: 10/11/24 08:32 Dose: 50 mg Vitamin D (Cholecalciferol (Vitamin D3) 25 Mcg Tablet) 50 mcg PO DAILY [facility] Last Admin: 10/11/24 08:33 Dose: 50 mcg Allergies Allergies Allergy/AdvReac Type Severity Reaction Status Date / Time No Known Allergies Allergy Verified 08/05/24 15:00 [No Known Allergies*] Assessment & Plan Assessment & Plan (1) Schizophrenia: Status: Acute Code(s): F20.9 - Schizophrenia, unspecified (2) Dementia: Status: Acute Code(s): F03.90 - Unspecified dementia, unspecified severity, without behavioral disturbance, psychotic disturbance, mood disturbance, and anxiety Plan The patient is an elderly female with a past history of schizophrenia on Clozaril chronically psychotic who was admitted from the community since she was paranoid against her caregivers. Plan 09/18 continue tx. coordination with oncology Dr. Veloz to resume tx for multiple myeloma while inpt (question of billing issues, resolved). 09/19 continue tx 09/20 continue tx 09/21 continue tx. 09/22 continue tx. 09/23 continue tx. 09/24 continue tx. 09/25 continue tx 09/26 continue tx. VS stable but on low side. 09/27/2024 Continue plan of care patient appears somewhat apathetic 09/29 Next chemo tx (Denosumab infusion) on December [address] Baugh' office. Lenalinomide 15mg po daily for 15 days on and 15 days off. She had last dose on 09/27/2024. Re-start on 10/12/2024. 09/30 continue tx. 10/01 continue tx. 10/02 continue tx. 10/04: Continue current management and treatment plan. 10/05: continue current management and treatment plan. 10/06 continue same treatment waiting for placement 10/07 continue same treatment waiting for placement 10/08 keep same treatment. 10/09 keep same treatment 10/10 keep same treatment 10/11: stable presentation. continue current mgmt. Reason for continued inpatient stay Substantial Risk for: inability to function Time Spent With Patient Time: Total time managing care of this patient today ____ minutes.
[2024-10-11 20:00] VITALS: BP 108/68; PULSE 82; RESP 16; TEMP 36.4; O2SAT 98
[2024-10-11] MEDS: cloZAPine 100 MG TABLET 300 MG PO (20:23)
[2024-10-11] MEDS: Loratadine 10 MG TABLET PO (20:23)
[2024-10-12] MEDS: Omeprazole 20 MG CAPSULE.DR PO (05:54)
[2024-10-12] MEDS: Aspirin Enteric Coated 81 MG TABLET.DR PO (07:55)
[2024-10-12] MEDS: allopurinoL 100 MG TABLET PO (07:55)
[2024-10-12] MEDS: Cholecalciferol (Vitamin D3) 25 MCG TABLET 50 MCG PO (07:55)
[2024-10-12] MEDS: Calcium Carbonate 750 MG TAB.CHEW PO ×3 (07:55→20:19)
[2024-10-12] MEDS: Acyclovir 200 MG CAPSULE 400 MG PO (07:56)
[2024-10-12] MEDS: cloZAPine 25 MG TABLET PO ×2 (07:56→16:23)
[2024-10-12] MEDS: Ferrous Sulfate 324 MG TABLET.DR PO (07:56)
[2024-10-12] MEDS: Sertraline HCL 50 MG TABLET PO (07:56)
[2024-10-12 08:00] VITALS: BP 123/73; PULSE 88; RESP 18; TEMP 36.6; O2SAT 99
--- NOTE | 2024-10-12 16:34 | P.PNPSI_ITS ---
Subjective Subjective Date of Service: 10/12/24 Reason For Visit: paranoia Interim History: declining interaction, says everything is fine, no questions or complaints. per staff, flat, pleasantly confused. slept 8 hours. out for meals. Mental Status Exam Mental Status Exam Patient Appearance: Appropriate Patient Orientation: Person and Situation Level of Consciousness: Awake and Appropriate Patient Behavior: Guarded and Passive Mood Description: Withdrawn Affect Description: Constricted Patient Cognition Impaired: Yes Ability to Follow Directions: Good Speech Pattern: Clear Hallucinations: None Delusions: Paranoid Ideation and Ideas of Reference Thought Process: Distracted and Slowed Thinking Thought Content: positive for [place] and positive for Poverty of Content Judgement: Fair Diagnostics Vital Signs (24Hr): Vital Signs - 24 hr 10/11/24 20:00 10/12/24 08:00 Temperature 97.5 F 97.8 F Pulse Rate 82 88 Respiratory Rate 16 18 Blood Pressure 108/68 123/73 Pulse Oximetry 98 99 Oxygen Delivery Method Room Air Room Air BMI result Body Mass Index 28.4 Labs 09/13/24 08:17 09/13/24 08:17 Imaging Radiology Impressions: ITS Impressions Chest X-Ray 08/05/24 15:34 IMPRESSION: No active pulmonary disease. Electronically signed by: Derrell Marti MD 08/05/2024 03:58 PM [facility] [place] [place] Medications Medications Current Medications Acetaminophen (Acetaminophen 325 Mg Tablet) 650 mg PO Q6H PRN PRN Reason: Headache/Pain Mild Scale (1-3) Acyclovir (Acyclovir 200 Mg Capsule) 400 mg PO DAILY [facility] Last Admin: 10/12/24 07:56 Dose: 400 mg Al Hydroxide/Mg Hydroxide (Magnesium Hydrox/Alum Hydrox 30 Ml Oral.Susp) 30 ml PO Q6H PRN PRN Reason: Heartburn/Nausea Albuterol Sulfate (Albuterol Sulfate 90 Mcg 8 Gm Inhaler) 2 puff INHALE Q4H PRN PRN Reason: Dyspnea Allopurinol (Allopurinol 100 Mg Tablet) 100 mg PO DAILY [facility] Last Admin: 10/12/24 07:55 Dose: 100 mg Aspirin (Aspirin Enteric Coated 81 Mg Tablet.Dr) 81 mg PO DAILY [facility] Last Admin: 10/12/24 07:55 Dose: 81 mg Calcium Carbonate (Calcium Carbonate 750 Mg Tab.Chew) 750 mg PO TID [facility] Last Admin: 10/12/24 16:23 Dose: 750 mg Clozapine (Clozapine 100 Mg Tablet) 300 mg PO BEDTIME [facility] Last Admin: 10/11/24 20:23 Dose: 300 mg Clozapine (Clozapine 25 Mg Tablet) 25 mg PO BID@0800,1500 [facility] Last Admin: 10/12/24 16:23 Dose: 25 mg Ferrous Sulfate (Ferrous Sulfate 324 Mg Tablet.) 324 mg PO DAILY [facility] Last Admin: 10/12/24 07:56 Dose: 324 mg Hydroxyzine HCl (Hydroxyzine Hcl 25 Mg Tablet) 25 mg PO Q6H PRN PRN Reason: Anxiety Last Admin: 09/15/24 20:53 Dose: 25 mg Loperamide HCl (Loperamide Hcl 2 Mg Capsule) 2 mg PO DAILY PRN PRN Reason: Diarrhea Last Admin: 08/24/24 14:42 Dose: 2 mg Loratadine (Loratadine 10 Mg Tablet) 10 mg PO BEDTIME [facility] Last Admin: 10/11/24 20:23 Dose: 10 mg Magnesium Hydroxide (Milk Of Magnesia 30 Ml Oral.Susp) 30 ml PO DAILY PRN PRN Reason: Constipation Pt Own (Lenalidomide (15 Mg)) 1 each PO DAILY [facility] Last Admin: 10/12/24 08:01 Dose: Not Given Omeprazole (Omeprazole 20 Mg Capsule.) 20 mg PO DAILY@0630 [facility] Last Admin: 10/12/24 05:54 Dose: 20 mg Ondansetron HCl (Ondansetron Odt 4 Mg Tab.Rapdis) 4 mg TRANSLINGU Q4H PRN PRN Reason: Nausea and Vomiting Last Admin: 08/28/24 20:33 Dose: 4 mg Senna (Sennosides 8.6 Mg Tablet) 17.2 mg PO DAILY PRN PRN Reason: constipation Sertraline HCl (Sertraline Hcl 50 Mg Tablet) 50 mg PO DAILY [facility] Last Admin: 10/12/24 07:56 Dose: 50 mg Vitamin D (Cholecalciferol (Vitamin D3) 25 Mcg Tablet) 50 mcg PO DAILY [facility] Last Admin: 10/12/24 07:55 Dose: 50 mcg Allergies Allergies Allergy/AdvReac Type Severity Reaction Status Date / Time No Known Allergies Allergy Verified 08/05/24 15:00 [No Known Allergies*] Assessment & Plan Assessment & Plan (1) Schizophrenia: Status: Acute Code(s): F20.9 - Schizophrenia, unspecified (2) Dementia: Status: Acute Code(s): F03.90 - Unspecified dementia, unspecified severity, without behavioral disturbance, psychotic disturbance, mood disturbance, and anxiety Plan The patient is an elderly female with a past history of schizophrenia on Clozaril chronically psychotic who was admitted from the community since she was paranoid against her caregivers. Plan 09/18 continue tx. coordination with oncology Dr. Veloz to resume tx for multiple myeloma while inpt (question of billing issues, resolved). 09/19 continue tx 09/20 continue tx 09/21 continue tx. 09/22 continue tx. 09/23 continue tx. 09/24 continue tx. 09/25 continue tx 09/26 continue tx. VS stable but on low side. 09/27/2024 Continue plan of care patient appears somewhat apathetic 09/29 Next chemo tx (Denosumab infusion) on December [address] Baugh' office. Lenalinomide 15mg po daily for 15 days on and 15 days off. She had last dose on 09/27/2024. Re-start on 10/12/2024. 09/30 continue tx. 10/01 continue tx. 10/02 continue tx. 10/04: Continue current management and treatment plan. 10/05: continue current management and treatment plan. 10/06 continue same treatment waiting for placement 10/07 continue same treatment waiting for placement 10/08 keep same treatment. 10/09 keep same treatment 10/10 keep same treatment 10/11: stable presentation. continue current mgmt. 10/12: as for yesterday. Reason for continued inpatient stay Substantial Risk for: inability to function Time Spent With Patient Time: Total time managing care of this patient today ____ minutes.
[2024-10-12 20:00] VITALS: BP 112/86; PULSE 78; RESP 18; TEMP 36.1; O2SAT 99
[2024-10-12] MEDS: cloZAPine 100 MG TABLET 300 MG PO (20:19)
[2024-10-12] MEDS: Loratadine 10 MG TABLET PO (20:19)
[2024-10-13] MEDS: Omeprazole 20 MG CAPSULE.DR PO (05:26)
[2024-10-13 08:36] VITALS: BP 123/76; PULSE 97; RESP 18; TEMP 36.1; O2SAT 99
[2024-10-13] MEDS: cloZAPine 25 MG TABLET PO ×2 (08:40→14:28)
[2024-10-13] MEDS: Calcium Carbonate 750 MG TAB.CHEW PO ×3 (08:40→20:17)
[2024-10-13] MEDS: Aspirin Enteric Coated 81 MG TABLET.DR PO (08:40)
[2024-10-13] MEDS: Ferrous Sulfate 324 MG TABLET.DR PO (08:40)
[2024-10-13] MEDS: Sertraline HCL 50 MG TABLET PO (08:40)
[2024-10-13] MEDS: Cholecalciferol (Vitamin D3) 25 MCG TABLET 50 MCG PO (08:40)
[2024-10-13] MEDS: Acyclovir 200 MG CAPSULE 400 MG PO (08:40)
[2024-10-13] MEDS: allopurinoL 100 MG TABLET PO (08:40)
--- NOTE | 2024-10-13 09:25 | HO.PSYCHPN ---
Subjective Subjective Date of Service: 10/13/24 Reason For Visit: paranoia Subjective Notes: Conditional Voluntary Interim History: Pt in her room. She is observed self dialoguing. When asked how is she doing, she states not well but then quickly asks this comic book writer to leave. She denies any pain. visible for meals. Review of Systems Review of Systems Denies pain Denies medical concerns today. Yes all other systems are reviewed and are negative and Unobtainable due to mental status Mental Status Exam Mental Status Exam Narrative: Appearance: wearing casual clothing, fair hygine, in NAD Behavior: guarded, somewhat dismissive but polite Psychomotor: no retardation or agitation noted Speech: clear, latency noted, minimally spontaneous TP: poverty of thought, thought blocking TC: wanting to be left alone Mood: okay Affect: constricted SI: denies HI: denies VH/AH: internally preoccupied Delusions: guarded suspicious, cap gras delusions Insight/judgment: impaired x 2. memory/cog: alert, not oriented to month situation nor year. Diagnostics Vital Signs (24Hr): Vital Signs - 24 hr 10/12/24 20:00 10/13/24 08:36 Temperature 96.9 F 97 F Pulse Rate 78 97 Respiratory Rate 18 18 Blood Pressure 112/86 123/76 Pulse Oximetry 99 99 Oxygen Delivery Method Room Air Room Air BMI result Body Mass Index 28.4 Labs 09/13/24 08:17 09/13/24 08:17 Imaging Radiology Impressions: ITS Impressions Chest X-Ray 08/05/24 15:34 IMPRESSION: No active pulmonary disease. Electronically signed by: Derrell Marti MD 08/05/2024 03:58 PM [facility] [place] Medications Current Medications Acetaminophen (Acetaminophen 325 Mg Tablet) 650 mg PO Q6H PRN PRN Reason: Headache/Pain Mild Scale (1-3) Acyclovir (Acyclovir 200 Mg Capsule) 400 mg PO DAILY [facility] Last Admin: 10/13/24 08:40 Dose: 400 mg Al Hydroxide/Mg Hydroxide (Magnesium Hydrox/Alum Hydrox 30 Ml Oral.Susp) 30 ml PO Q6H PRN PRN Reason: Heartburn/Nausea Albuterol Sulfate (Albuterol Sulfate 90 Mcg 8 Gm Inhaler) 2 puff INHALE Q4H PRN PRN Reason: Dyspnea Allopurinol (Allopurinol 100 Mg Tablet) 100 mg PO DAILY [facility] Last Admin: 10/13/24 08:40 Dose: 100 mg Aspirin (Aspirin Enteric Coated 81 Mg Tablet.) 81 mg PO DAILY [facility] Last Admin: 10/13/24 08:40 Dose: 81 mg Calcium Carbonate (Calcium Carbonate 750 Mg Tab.Chew) 750 mg PO TID [facility] Last Admin: 10/13/24 08:40 Dose: 750 mg Clozapine (Clozapine 100 Mg Tablet) 300 mg PO BEDTIME [facility] Last Admin: 10/12/24 20:19 Dose: 300 mg Clozapine (Clozapine 25 Mg Tablet) 25 mg PO BID@0800,1500 [facility] Last Admin: 10/13/24 08:40 Dose: 25 mg Ferrous Sulfate (Ferrous Sulfate 324 Mg Tablet.) 324 mg PO DAILY [facility] Last Admin: 10/13/24 08:40 Dose: 324 mg Hydroxyzine HCl (Hydroxyzine Hcl 25 Mg Tablet) 25 mg PO Q6H PRN PRN Reason: Anxiety Last Admin: 09/15/24 20:53 Dose: 25 mg Loperamide HCl (Loperamide Hcl 2 Mg Capsule) 2 mg PO DAILY PRN PRN Reason: Diarrhea Last Admin: 08/24/24 14:42 Dose: 2 mg Loratadine (Loratadine 10 Mg Tablet) 10 mg PO BEDTIME [facility] Last Admin: 10/12/24 20:19 Dose: 10 mg Magnesium Hydroxide (Milk Of Magnesia 30 Ml Oral.Susp) 30 ml PO DAILY PRN PRN Reason: Constipation Pt Own (Lenalidomide (15 Mg)) 1 each PO DAILY [facility] Last Admin: 10/12/24 08:01 Dose: Not Given Omeprazole (Omeprazole 20 Mg Capsule.) 20 mg PO DAILY@0630 [facility] Last Admin: 10/13/24 05:26 Dose: 20 mg Ondansetron HCl (Ondansetron Odt 4 Mg Tab.Rapdis) 4 mg TRANSLINGU Q4H PRN PRN Reason: Nausea and Vomiting Last Admin: 08/28/24 20:33 Dose: 4 mg Senna (Sennosides 8.6 Mg Tablet) 17.2 mg PO DAILY PRN PRN Reason: constipation Sertraline HCl (Sertraline Hcl 50 Mg Tablet) 50 mg PO DAILY [facility] Last Admin: 10/13/24 08:40 Dose: 50 mg Vitamin D (Cholecalciferol (Vitamin D3) 25 Mcg Tablet) 50 mcg PO DAILY [facility] Last Admin: 10/13/24 08:40 Dose: 50 mcg Allergies Allergies Allergy/AdvReac Type Severity Reaction Status Date / Time No Known Allergies Allergy Verified 08/05/24 15:00 [No Known Allergies*] Assessment & Plan Assessment & Plan (1) Schizophrenia: Status: Acute Code(s): F20.9 - Schizophrenia, unspecified (2) Dementia: Status: Acute Code(s): F03.90 - Unspecified dementia, unspecified severity, without behavioral disturbance, psychotic disturbance, mood disturbance, and anxiety Plan The patient is an elderly female with a past history of schizophrenia on Clozaril chronically psychotic who was admitted from the community since she was paranoid against her caregivers. Plan 09/18 continue tx. coordination with oncology Dr. Veloz to resume tx for multiple myeloma while inpt (question of billing issues, resolved). 09/19 continue tx 09/20 continue tx 09/21 continue tx. 09/22 continue tx. 09/23 continue tx. 09/24 continue tx. 09/25 continue tx 09/26 continue tx. VS stable but on low side. 09/27/2024 Continue plan of care patient appears somewhat apathetic 09/29 Next chemo tx (Denosumab infusion) on December [address] Baugh' office. Lenalinomide 15mg po daily for 15 days on and 15 days off. She had last dose on 09/27/2024. Re-start on 10/12/2024. 09/30 continue tx. 10/01 continue tx. 10/02 continue tx. 10/04: Continue current management and treatment plan. 10/05: continue current management and treatment plan. 10/06 continue same treatment waiting for placement 10/07 continue same treatment waiting for placement 10/08 keep same treatment. 10/09 keep same treatment 10/10 keep same treatment 10/11: stable presentation. continue current mgmt. 10/12: as for yesterday. 10/13 continue tx. awaiting placement. She has to re-start Lenalinomide 15mg po daily x 15days. Reason for continued inpatient stay Substantial Risk for: inability to function Time Spent With Patient Time: Total time managing care of this patient today ____ minutes.
[2024-10-13 20:00] VITALS: BP 116/63; PULSE 81; RESP 16; TEMP 36.4; O2SAT 99
[2024-10-13] MEDS: cloZAPine 100 MG TABLET 300 MG PO (20:17)
[2024-10-13] MEDS: Loratadine 10 MG TABLET PO (20:17)
[2024-10-14] MEDS: Omeprazole 20 MG CAPSULE.DR PO (05:46)
[2024-10-14 08:00] VITALS: BP 101/60; PULSE 82; RESP 16; TEMP 36.6; O2SAT 100
[2024-10-14 08:36] LABS: Neut%MD 61.6 %; Neutrophils Absolute Auto 2.4 x10*3/uL (2.0-8.3); WBCANC 3.8 X10*3/uL
--- NOTE | 2024-10-14 09:26 | HO.PSYCHPN ---
Subjective Subjective Date of Service: 10/14/24 Reason For Visit: paranoia Subjective Notes: Conditional Voluntary Healthcare Proxy: Yes Interim History: Pt in her room. She is observed self dialoguing. When asked how is she doing, she states not well but then quickly asks this underwriter mortgage loan to leave. She denies any pain. visible for meals. Review of Systems Review of Systems Denies pain Denies medical concerns today. Yes all other systems are reviewed and are negative and Unobtainable due to mental status Mental Status Exam Mental Status Exam Narrative: Appearance: wearing casual clothing, fair hygine, in NAD Behavior: guarded, somewhat dismissive but polite Psychomotor: no retardation or agitation noted Speech: clear, latency noted, minimally spontaneous TP: poverty of thought, thought blocking TC: wanting to be left alone Mood: okay Affect: constricted SI: denies HI: denies VH/AH: internally preoccupied Delusions: guarded suspicious, cap gras delusions Insight/judgment: impaired x 2. memory/cog: alert, not oriented to month situation nor year. Diagnostics Vital Signs (24Hr): Vital Signs - 24 hr 10/13/24 20:00 Temperature 97.6 F Pulse Rate 81 Respiratory Rate 16 Blood Pressure 116/63 Pulse Oximetry 99 Oxygen Delivery Method Room Air BMI result Body Mass Index 28.4 Labs 09/13/24 08:17 09/13/24 08:17 Labs: Laboratory Results - last 48 hr 10/14/24 07:42 Absolute Neuts (auto) 2.4 Imaging Radiology Impressions: ITS Impressions Chest X-Ray 08/05/24 15:34 IMPRESSION: No active pulmonary disease. Electronically signed by: Derrell Marti MD 08/05/2024 03:58 PM EST Medications Medications Current Medications Acetaminophen (Acetaminophen 325 Mg Tablet) 650 mg PO Q6H PRN PRN Reason: Headache/Pain Mild Scale (1-3) Acyclovir (Acyclovir 200 Mg Capsule) 400 mg PO DAILY [facility] Last Admin: 10/13/24 08:40 Dose: 400 mg Al Hydroxide/Mg Hydroxide (Magnesium Hydrox/Alum Hydrox 30 Ml Oral.Susp) 30 ml PO Q6H PRN PRN Reason: Heartburn/Nausea Albuterol Sulfate (Albuterol Sulfate 90 Mcg 8 Gm Inhaler) 2 puff INHALE Q4H PRN PRN Reason: Dyspnea Allopurinol (Allopurinol 100 Mg Tablet) 100 mg PO DAILY [facility] Last Admin: 10/13/24 08:40 Dose: 100 mg Aspirin (Aspirin Enteric Coated 81 Mg Tablet.) 81 mg PO DAILY [facility] Last Admin: 10/13/24 08:40 Dose: 81 mg Calcium Carbonate (Calcium Carbonate 750 Mg Tab.Chew) 750 mg PO TID [facility] Last Admin: 10/13/24 20:17 Dose: 750 mg Clozapine (Clozapine 100 Mg Tablet) 300 mg PO BEDTIME [facility] Last Admin: 10/13/24 20:17 Dose: 300 mg Clozapine (Clozapine 25 Mg Tablet) 25 mg PO BID@0800,1500 [facility] Last Admin: 10/13/24 14:28 Dose: 25 mg Ferrous Sulfate (Ferrous Sulfate 324 Mg Tablet.) 324 mg PO DAILY [facility] Last Admin: 10/13/24 08:40 Dose: 324 mg Hydroxyzine HCl (Hydroxyzine Hcl 25 Mg Tablet) 25 mg PO Q6H PRN PRN Reason: Anxiety Last Admin: 09/15/24 20:53 Dose: 25 mg Loperamide HCl (Loperamide Hcl 2 Mg Capsule) 2 mg PO DAILY PRN PRN Reason: Diarrhea Last Admin: 08/24/24 14:42 Dose: 2 mg Loratadine (Loratadine 10 Mg Tablet) 10 mg PO BEDTIME [facility] Last Admin: 10/13/24 20:17 Dose: 10 mg Magnesium Hydroxide (Milk Of Magnesia 30 Ml Oral.Susp) 30 ml PO DAILY PRN PRN Reason: Constipation Pt Own (Lenalidomide (15 Mg)) 1 each PO DAILY [facility] Last Admin: 10/13/24 10:05 Dose: Not Given Omeprazole (Omeprazole 20 Mg Capsule.) 20 mg PO DAILY@0630 [facility] Last Admin: 10/14/24 05:46 Dose: 20 mg Ondansetron HCl (Ondansetron Odt 4 Mg Tab.Rapdis) 4 mg TRANSLINGU Q4H PRN PRN Reason: Nausea and Vomiting Last Admin: 08/28/24 20:33 Dose: 4 mg Senna (Sennosides 8.6 Mg Tablet) 17.2 mg PO DAILY PRN PRN Reason: constipation Sertraline HCl (Sertraline Hcl 50 Mg Tablet) 50 mg PO DAILY [facility] Last Admin: 10/13/24 08:40 Dose: 50 mg Vitamin D (Cholecalciferol (Vitamin D3) 25 Mcg Tablet) 50 mcg PO DAILY [facility] Last Admin: 10/13/24 08:40 Dose: 50 mcg Allergies Allergies Allergy/AdvReac Type Severity Reaction Status Date / Time No Known Allergies Allergy Verified 08/05/24 15:00 [No Known Allergies*] Assessment & Plan Assessment & Plan (1) Schizophrenia: Status: Acute Code(s): F20.9 - Schizophrenia, unspecified (2) Dementia: Status: Acute Code(s): F03.90 - Unspecified dementia, unspecified severity, without behavioral disturbance, psychotic disturbance, mood disturbance, and anxiety Plan The patient is an elderly female with a past history of schizophrenia on Clozaril chronically psychotic who was admitted from the community since she was paranoid against her caregivers. Plan 09/18 continue tx. coordination with oncology Dr. Veloz to resume tx for multiple myeloma while inpt (question of billing issues, resolved). 09/19 continue tx 09/20 continue tx 09/21 continue tx. 09/22 continue tx. 09/23 continue tx. 09/24 continue tx. 09/25 continue tx 09/26 continue tx. VS stable but on low side. 09/27/2024 Continue plan of care patient appears somewhat apathetic 09/29 Next chemo tx (Denosumab infusion) on December [address] Baugh' office. Lenalinomide 15mg po daily for 15 days on and 15 days off. She had last dose on 09/27/2024. Re-start on 10/12/2024. 09/30 continue tx. 10/01 continue tx. 10/02 continue tx. 10/04: Continue current management and treatment plan. 10/05: continue current management and treatment plan. 10/06 continue same treatment waiting for placement 10/07 continue same treatment waiting for placement 10/08 keep same treatment. 10/09 keep same treatment 10/10 keep same treatment 10/11: stable presentation. continue current mgmt. 10/12: as for yesterday. 10/13 continue tx. awaiting placement. She has to re-start Lenalinomide 15mg po daily x 15days. 10/14 called [facility] to bring in Lenalinomide, she reports she will bring today. also, pt denied at [facility] due to cost of multiple myeloma tx. Reason for continued inpatient stay Substantial Risk for: inability to function Time Spent With Patient Time: Total time managing care of this patient today ____ minutes.
[2024-10-14] MEDS: Aspirin Enteric Coated 81 MG TABLET.DR PO (09:48)
[2024-10-14] MEDS: Sertraline HCL 50 MG TABLET PO (09:49)
[2024-10-14] MEDS: Calcium Carbonate 750 MG TAB.CHEW PO ×3 (09:49→19:51)
[2024-10-14] MEDS: Ferrous Sulfate 324 MG TABLET.DR PO (09:49)
[2024-10-14] MEDS: allopurinoL 100 MG TABLET PO (09:49)
[2024-10-14] MEDS: cloZAPine 25 MG TABLET PO ×2 (09:49→14:50)
[2024-10-14] MEDS: Cholecalciferol (Vitamin D3) 25 MCG TABLET 50 MCG PO (10:19)
[2024-10-14] MEDS: Acyclovir 200 MG CAPSULE 400 MG PO (10:20)
[2024-10-14 19:49] VITALS: BP 92/57; PULSE 80; RESP 15; TEMP 36.1; O2SAT 96
[2024-10-14] MEDS: Loratadine 10 MG TABLET PO (19:51)
[2024-10-14] MEDS: cloZAPine 100 MG TABLET 300 MG PO (19:51)
[2024-10-15] MEDS: Omeprazole 20 MG CAPSULE.DR PO (05:22)
[2024-10-15 08:28] VITALS: BP 111/64; PULSE 79; RESP 20; TEMP 36.3; O2SAT 100
[2024-10-15] MEDS: cloZAPine 25 MG TABLET PO ×2 (08:30→14:53)
[2024-10-15] MEDS: Aspirin Enteric Coated 81 MG TABLET.DR PO (08:30)
[2024-10-15] MEDS: Cholecalciferol (Vitamin D3) 25 MCG TABLET 50 MCG PO (08:31)
[2024-10-15] MEDS: Acyclovir 200 MG CAPSULE 400 MG PO (08:31)
[2024-10-15] MEDS: Sertraline HCL 50 MG TABLET PO (08:31)
[2024-10-15] MEDS: allopurinoL 100 MG TABLET PO (08:32)
[2024-10-15] MEDS: Ferrous Sulfate 324 MG TABLET.DR PO (08:32)
[2024-10-15] MEDS: Calcium Carbonate 750 MG TAB.CHEW PO ×3 (08:32→19:57)
[2024-10-15] MEDS: LENALIDOMIDE 15 MG 1 EACH PO (08:33)
--- NOTE | 2024-10-15 13:17 | HO.PSYCHPN ---
Subjective Subjective Date of Service: 10/15/24 Reason For Visit: paranoia Subjective Notes: Conditional Voluntary Healthcare Proxy: Yes Interim History: Pt in common area. She is observed self dialoguing. When asked how is she doing, she states not well but then quickly asks this play writer to leave. She denies any pain. visible for meals. Review of Systems Review of Systems Denies pain Denies medical concerns today. Yes all other systems are reviewed and are negative and Unobtainable due to mental status Mental Status Exam Mental Status Exam Narrative: Appearance: wearing casual clothing, fair hygine, in NAD Behavior: guarded, somewhat dismissive but polite Psychomotor: no retardation or agitation noted Speech: clear, latency noted, minimally spontaneous TP: poverty of thought, thought blocking TC: wanting to be left alone Mood: okay Affect: constricted SI: denies HI: denies VH/AH: internally preoccupied Delusions: guarded suspicious, cap gras delusions Insight/judgment: impaired x 2. memory/cog: alert, not oriented to month situation nor year. Diagnostics Vital Signs (24Hr): Vital Signs - 24 hr 10/14/24 19:49 10/15/24 08:28 Temperature 97 F 97.4 F Pulse Rate 80 79 Respiratory Rate 15 20 Blood Pressure 92/57 L 111/64 Pulse Oximetry 96 100 Oxygen Delivery Method Room Air Room Air BMI result Body Mass Index 28.4 Labs 09/13/24 08:17 09/13/24 08:17 Labs: Laboratory Results - last 48 hr 10/14/24 07:42 Absolute Neuts (auto) 2.4 Imaging Radiology Impressions: ITS Impressions Chest X-Ray 08/05/24 15:34 IMPRESSION: No active pulmonary disease. Electronically signed by: Derrell Marti MD 08/05/2024 03:58 PM [facility] Medications Medications Current Medications Acetaminophen (Acetaminophen 325 Mg Tablet) 650 mg PO Q6H PRN PRN Reason: pain (1-10) Acyclovir (Acyclovir 200 Mg Capsule) 400 mg PO DAILY [facility] Last Admin: 10/15/24 08:31 Dose: 400 mg Al Hydroxide/Mg Hydroxide (Magnesium Hydrox/Alum Hydrox 30 Ml Oral.Susp) 30 ml PO Q6H PRN PRN Reason: Heartburn/Nausea Albuterol Sulfate (Albuterol Sulfate 90 Mcg 8 Gm Inhaler) 2 puff INHALE Q4H PRN PRN Reason: Dyspnea Allopurinol (Allopurinol 100 Mg Tablet) 100 mg PO DAILY [facility] Last Admin: 10/15/24 08:32 Dose: 100 mg Aspirin (Aspirin Enteric Coated 81 Mg Tablet.) 81 mg PO DAILY [facility] Last Admin: 10/15/24 08:30 Dose: 81 mg Calcium Carbonate (Calcium Carbonate 750 Mg Tab.Chew) 750 mg PO TID [facility] Last Admin: 10/15/24 08:32 Dose: 750 mg Clozapine (Clozapine 100 Mg Tablet) 300 mg PO BEDTIME [facility] Last Admin: 10/14/24 19:51 Dose: 300 mg Clozapine (Clozapine 25 Mg Tablet) 25 mg PO BID@0800,1500 [facility] Last Admin: 10/15/24 08:30 Dose: 25 mg Ferrous Sulfate (Ferrous Sulfate 324 Mg Tablet.) 324 mg PO DAILY [facility] Last Admin: 10/15/24 08:32 Dose: 324 mg Hydroxyzine HCl (Hydroxyzine Hcl 25 Mg Tablet) 25 mg PO Q6H PRN PRN Reason: Anxiety Last Admin: 09/15/24 20:53 Dose: 25 mg Loperamide HCl (Loperamide Hcl 2 Mg Capsule) 2 mg PO DAILY PRN PRN Reason: Diarrhea Last Admin: 08/24/24 14:42 Dose: 2 mg Loratadine (Loratadine 10 Mg Tablet) 10 mg PO BEDTIME [facility] Last Admin: 10/14/24 19:51 Dose: 10 mg Magnesium Hydroxide (Milk Of Magnesia 30 Ml Oral.Susp) 30 ml PO DAILY PRN PRN Reason: Constipation Pt Own (Lenalidomide (15 Mg)) 1 each PO DAILY [facility] Last Admin: 10/15/24 08:33 Dose: 1 each Omeprazole (Omeprazole 20 Mg Capsule.) 20 mg PO DAILY@0630 [facility] Last Admin: 10/15/24 05:22 Dose: 20 mg Ondansetron HCl (Ondansetron Odt 4 Mg Tab.Rapdis) 4 mg TRANSLINGU Q4H PRN PRN Reason: Nausea and Vomiting Last Admin: 08/28/24 20:33 Dose: 4 mg Senna (Sennosides 8.6 Mg Tablet) 17.2 mg PO DAILY PRN PRN Reason: constipation Sertraline HCl (Sertraline Hcl 50 Mg Tablet) 50 mg PO DAILY [facility] Last Admin: 10/15/24 08:31 Dose: 50 mg Vitamin D (Cholecalciferol (Vitamin D3) 25 Mcg Tablet) 50 mcg PO DAILY [facility] Last Admin: 10/15/24 08:31 Dose: 50 mcg Allergies Allergies Allergy/AdvReac Type Severity Reaction Status Date / Time No Known Allergies Allergy Verified 08/05/24 15:00 [No Known Allergies*] Assessment & Plan Assessment & Plan (1) Schizophrenia: Status: Acute Code(s): F20.9 - Schizophrenia, unspecified (2) Dementia: Status: Acute Code(s): F03.90 - Unspecified dementia, unspecified severity, without behavioral disturbance, psychotic disturbance, mood disturbance, and anxiety Plan The patient is an elderly female with a past history of schizophrenia on Clozaril chronically psychotic who was admitted from the community since she was paranoid against her caregivers. Plan 09/18 continue tx. coordination with oncology Dr. Veloz to resume tx for multiple myeloma while inpt (question of billing issues, resolved). 09/19 continue tx 09/20 continue tx 09/21 continue tx. 09/22 continue tx. 09/23 continue tx. 09/24 continue tx. 09/25 continue tx 09/26 continue tx. VS stable but on low side. 09/27/2024 Continue plan of care patient appears somewhat apathetic 09/29 Next chemo tx (Denosumab infusion) on December [address] Baugh' office. Lenalinomide 15mg po daily for 15 days on and 15 days off. She had last dose on 09/27/2024. Re-start on 10/12/2024. 09/30 continue tx. 10/01 continue tx. 10/02 continue tx. 10/04: Continue current management and treatment plan. 10/05: continue current management and treatment plan. 10/06 continue same treatment waiting for placement 10/07 continue same treatment waiting for placement 10/08 keep same treatment. 10/09 keep same treatment 10/10 keep same treatment 10/11: stable presentation. continue current mgmt. 10/12: as for yesterday. 10/13 continue tx. awaiting placement. She has to re-start Lenalinomide 15mg po daily x 15days. 10/14 called [facility] to bring in Lenalinomide, she reports she will bring today. also, pt denied at [facility] due to cost of multiple myeloma tx. 10/15 continue tx. Reason for continued inpatient stay Substantial Risk for: inability to function Time Spent With Patient Time: Total time managing care of this patient today ____ minutes.
[2024-10-15 19:55] VITALS: BP 110/58; PULSE 75; RESP 15; TEMP 36.4; O2SAT 99
[2024-10-15] MEDS: cloZAPine 100 MG TABLET 300 MG PO (19:57)
[2024-10-15] MEDS: Loratadine 10 MG TABLET PO (19:57)
[2024-10-16] MEDS: Omeprazole 20 MG CAPSULE.DR PO (05:04)
[2024-10-16 08:00] VITALS: BP 103/55; PULSE 79; RESP 18; TEMP 35.7; O2SAT 100
[2024-10-16] MEDS: Aspirin Enteric Coated 81 MG TABLET.DR PO (08:03)
[2024-10-16] MEDS: Sertraline HCL 50 MG TABLET PO (08:03)
[2024-10-16] MEDS: Cholecalciferol (Vitamin D3) 25 MCG TABLET 50 MCG PO (08:04)
[2024-10-16] MEDS: Ferrous Sulfate 324 MG TABLET.DR PO (08:04)
[2024-10-16] MEDS: Calcium Carbonate 750 MG TAB.CHEW PO ×3 (08:04→20:38)
[2024-10-16] MEDS: allopurinoL 100 MG TABLET PO (08:04)
[2024-10-16] MEDS: Acyclovir 200 MG CAPSULE 400 MG PO (08:04)
[2024-10-16] MEDS: cloZAPine 25 MG TABLET PO ×2 (08:04→14:29)
[2024-10-16] MEDS: LENALIDOMIDE 15 MG 1 EACH PO (08:19)
--- NOTE | 2024-10-16 10:42 | HO.PSYCHPN ---
Subjective Subjective Date of Service: 10/16/24 Reason For Visit: paranoia Subjective Notes: Conditional Voluntary Interim History: Pt in common area. She is observed self dialoguing.Pt reports doing well, but then quickly asks this brief writer to leave. She denies any pain. visible for meals. Review of Systems Review of Systems Denies pain Denies medical concerns today. Yes all other systems are reviewed and are negative and Unobtainable due to mental status Mental Status Exam Mental Status Exam Narrative: Appearance: wearing casual clothing, fair hygine, in NAD Behavior: guarded, somewhat dismissive but polite Psychomotor: no retardation or agitation noted Speech: clear, latency noted, minimally spontaneous TP: poverty of thought, thought blocking TC: wanting to be left alone Mood: okay Affect: constricted SI: denies HI: denies VH/AH: internally preoccupied Delusions: guarded suspicious, cap gras delusions Insight/judgment: impaired x 2. memory/cog: alert, not oriented to month situation nor year. Diagnostics Vital Signs (24Hr): Vital Signs - 24 hr 10/15/24 19:55 10/16/24 08:00 Temperature 97.5 F 96.3 F L Pulse Rate 75 79 Respiratory Rate 15 18 Blood Pressure 110/58 L 103/55 L Pulse Oximetry 99 100 Oxygen Delivery Method Room Air Room Air BMI result Body Mass Index 28.4 Labs 09/13/24 08:17 09/13/24 08:17 Imaging Radiology Impressions: ITS Impressions Chest X-Ray 08/05/24 15:34 IMPRESSION: No active pulmonary disease. Electronically signed by: Derrell Marti MD 08/05/2024 03:58 PM [facility] Medications Medications Current Medications Acetaminophen (Acetaminophen 325 Mg Tablet) 650 mg PO Q6H PRN PRN Reason: pain (1-10) Acyclovir (Acyclovir 200 Mg Capsule) 400 mg PO DAILY [facility] Last Admin: 10/16/24 08:04 Dose: 400 mg Al Hydroxide/Mg Hydroxide (Magnesium Hydrox/Alum Hydrox 30 Ml Oral.Susp) 30 ml PO Q6H PRN PRN Reason: Heartburn/Nausea Albuterol Sulfate (Albuterol Sulfate 90 Mcg 8 Gm Inhaler) 2 puff INHALE Q4H PRN PRN Reason: Dyspnea Allopurinol (Allopurinol 100 Mg Tablet) 100 mg PO DAILY [facility] Last Admin: 10/16/24 08:04 Dose: 100 mg Aspirin (Aspirin Enteric Coated 81 Mg Tablet.) 81 mg PO DAILY [facility] Last Admin: 10/16/24 08:03 Dose: 81 mg Calcium Carbonate (Calcium Carbonate 750 Mg Tab.Chew) 750 mg PO TID [facility] Last Admin: 10/16/24 08:04 Dose: 750 mg Clozapine (Clozapine 100 Mg Tablet) 300 mg PO BEDTIME [facility] Last Admin: 10/15/24 19:57 Dose: 300 mg Clozapine (Clozapine 25 Mg Tablet) 25 mg PO BID@0800,1500 [facility] Last Admin: 10/16/24 08:04 Dose: 25 mg Ferrous Sulfate (Ferrous Sulfate 324 Mg Tablet.) 324 mg PO DAILY [facility] Last Admin: 10/16/24 08:04 Dose: 324 mg Hydroxyzine HCl (Hydroxyzine Hcl 25 Mg Tablet) 25 mg PO Q6H PRN PRN Reason: Anxiety Last Admin: 09/15/24 20:53 Dose: 25 mg Loperamide HCl (Loperamide Hcl 2 Mg Capsule) 2 mg PO DAILY PRN PRN Reason: Diarrhea Last Admin: 08/24/24 14:42 Dose: 2 mg Loratadine (Loratadine 10 Mg Tablet) 10 mg PO BEDTIME [facility] Last Admin: 10/15/24 19:57 Dose: 10 mg Magnesium Hydroxide (Milk Of Magnesia 30 Ml Oral.Susp) 30 ml PO DAILY PRN PRN Reason: Constipation Pt Own (Lenalidomide (15 Mg)) 1 each PO DAILY [facility] Last Admin: 10/16/24 08:19 Dose: 1 each Omeprazole (Omeprazole 20 Mg Capsule.) 20 mg PO DAILY@0630 [facility] Last Admin: 10/16/24 05:04 Dose: 20 mg Ondansetron HCl (Ondansetron Odt 4 Mg Tab.Rapdis) 4 mg TRANSLINGU Q4H PRN PRN Reason: Nausea and Vomiting Last Admin: 08/28/24 20:33 Dose: 4 mg Senna (Sennosides 8.6 Mg Tablet) 17.2 mg PO DAILY PRN PRN Reason: constipation Sertraline HCl (Sertraline Hcl 50 Mg Tablet) 50 mg PO DAILY [facility] Last Admin: 10/16/24 08:03 Dose: 50 mg Vitamin D (Cholecalciferol (Vitamin D3) 25 Mcg Tablet) 50 mcg PO DAILY [facility] Last Admin: 10/16/24 08:04 Dose: 50 mcg Allergies Allergies Allergy/AdvReac Type Severity Reaction Status Date / Time No Known Allergies Allergy Verified 08/05/24 15:00 [No Known Allergies*] Assessment & Plan Assessment & Plan (1) Schizophrenia: Status: Acute Code(s): F20.9 - Schizophrenia, unspecified (2) Dementia: Status: Acute Code(s): F03.90 - Unspecified dementia, unspecified severity, without behavioral disturbance, psychotic disturbance, mood disturbance, and anxiety Plan The patient is an elderly female with a past history of schizophrenia on Clozaril chronically psychotic who was admitted from the community since she was paranoid against her caregivers. Plan 09/18 continue tx. coordination with oncology Dr. Veloz to resume tx for multiple myeloma while inpt (question of billing issues, resolved). 09/19 continue tx 09/20 continue tx 09/21 continue tx. 09/22 continue tx. 09/23 continue tx. 09/24 continue tx. 09/25 continue tx 09/26 continue tx. VS stable but on low side. 09/27/2024 Continue plan of care patient appears somewhat apathetic 09/29 Next chemo tx (Denosumab infusion) on December [address] Baugh' office. Lenalinomide 15mg po daily for 15 days on and 15 days off. She had last dose on 09/27/2024. Re-start on 10/12/2024. 09/30 continue tx. 10/01 continue tx. 10/02 continue tx. 10/04: Continue current management and treatment plan. 10/05: continue current management and treatment plan. 10/06 continue same treatment waiting for placement 10/07 continue same treatment waiting for placement 10/08 keep same treatment. 10/09 keep same treatment 10/10 keep same treatment 10/11: stable presentation. continue current mgmt. 10/12: as for yesterday. 10/13 continue tx. awaiting placement. She has to re-start Lenalinomide 15mg po daily x 15days. 10/14 called [facility] to bring in Lenalinomide, she reports she will bring today. also, pt denied at [facility] due to cost of multiple myeloma tx. 10/15 continue tx. 10/16 will check clozapine levels on 4 AM. Reason for continued inpatient stay Substantial Risk for: inability to function Time Spent With Patient Time: Total time managing care of this patient today ____ minutes.
[2024-10-16 20:00] VITALS: BP 97/50; PULSE 81; RESP 18; TEMP 36; O2SAT 99
[2024-10-16] MEDS: cloZAPine 100 MG TABLET 300 MG PO (20:39)
[2024-10-16] MEDS: Loratadine 10 MG TABLET PO (20:39)
[2024-10-17] MEDS: Omeprazole 20 MG CAPSULE.DR PO (06:13)
[2024-10-17 06:33] LABS: Glucose, Whole Blood 91 mg/dL (60-115)
[2024-10-17 08:00] VITALS: BP 124/66; PULSE 99; RESP 18; TEMP 36; O2SAT 98
[2024-10-17] MEDS: Ferrous Sulfate 324 MG TABLET.DR PO (08:10)
[2024-10-17] MEDS: cloZAPine 25 MG TABLET PO ×2 (08:10→14:44)
[2024-10-17] MEDS: Acyclovir 200 MG CAPSULE 400 MG PO (08:10)
[2024-10-17] MEDS: allopurinoL 100 MG TABLET PO (08:10)
[2024-10-17] MEDS: Calcium Carbonate 750 MG TAB.CHEW PO ×3 (08:10→20:50)
[2024-10-17] MEDS: Cholecalciferol (Vitamin D3) 25 MCG TABLET 50 MCG PO (08:11)
[2024-10-17] MEDS: Sertraline HCL 50 MG TABLET PO (08:11)
[2024-10-17] MEDS: Aspirin Enteric Coated 81 MG TABLET.DR PO (08:22)
[2024-10-17] MEDS: LENALIDOMIDE 15 MG 1 EACH PO (08:22)
--- NOTE | 2024-10-17 09:05 | HO.PSYCHPN ---
Subjective Subjective Date of Service: 10/17/24 Reason For Visit: paranoia Subjective Notes: Conditional Voluntary Interim History: Pt in common area. She is observed self dialoguing.Pt reports doing well, but then quickly asks this telegraphic typewriter operator to leave. She denies any pain. visible for meals. Review of Systems Review of Systems Denies pain Denies medical concerns today. Yes all other systems are reviewed and are negative and Unobtainable due to mental status Mental Status Exam Mental Status Exam Narrative: Appearance: wearing casual clothing, fair hygine, in NAD Behavior: guarded, somewhat dismissive but polite Psychomotor: no retardation or agitation noted Speech: clear, latency noted, minimally spontaneous TP: poverty of thought, thought blocking TC: wanting to be left alone Mood: okay Affect: constricted SI: denies HI: denies VH/AH: internally preoccupied Delusions: guarded suspicious, cap gras delusions Insight/judgment: impaired x 2. memory/cog: alert, not oriented to month situation nor year. Diagnostics Vital Signs (24Hr): Vital Signs - 24 hr 10/16/24 20:00 Temperature 96.8 F Pulse Rate 81 Respiratory Rate 18 Blood Pressure 97/50 L Pulse Oximetry 99 Oxygen Delivery Method Room Air BMI result Body Mass Index 28.4 Labs 09/13/24 08:17 09/13/24 08:17 Labs: Laboratory Results - last 48 hr 10/17/24 06:10 POC Glucose 91 Imaging Radiology Impressions: ITS Impressions Chest X-Ray 08/05/24 15:34 IMPRESSION: No active pulmonary disease. Electronically signed by: Derrell Marti MD 08/05/2024 03:58 PM [facility] Medications Medications Current Medications Acetaminophen (Acetaminophen 325 Mg Tablet) 650 mg PO Q6H PRN PRN Reason: pain (1-10) Acyclovir (Acyclovir 200 Mg Capsule) 400 mg PO DAILY [facility] Last Admin: 10/17/24 08:10 Dose: 400 mg Al Hydroxide/Mg Hydroxide (Magnesium Hydrox/Alum Hydrox 30 Ml Oral.Susp) 30 ml PO Q6H PRN PRN Reason: Heartburn/Nausea Albuterol Sulfate (Albuterol Sulfate 90 Mcg 8 Gm Inhaler) 2 puff INHALE Q4H PRN PRN Reason: Dyspnea Allopurinol (Allopurinol 100 Mg Tablet) 100 mg PO DAILY [facility] Last Admin: 10/17/24 08:10 Dose: 100 mg Aspirin (Aspirin Enteric Coated 81 Mg Tablet.) 81 mg PO DAILY [facility] Last Admin: 10/17/24 08:22 Dose: 81 mg Calcium Carbonate (Calcium Carbonate 750 Mg Tab.Chew) 750 mg PO TID [facility] Last Admin: 10/17/24 08:10 Dose: 750 mg Clozapine (Clozapine 100 Mg Tablet) 300 mg PO BEDTIME [facility] Last Admin: 10/16/24 20:39 Dose: 300 mg Clozapine (Clozapine 25 Mg Tablet) 25 mg PO BID@0800,1500 [facility] Last Admin: 10/17/24 08:10 Dose: 25 mg Ferrous Sulfate (Ferrous Sulfate 324 Mg Tablet.) 324 mg PO DAILY [facility] Last Admin: 10/17/24 08:10 Dose: 324 mg Hydroxyzine HCl (Hydroxyzine Hcl 25 Mg Tablet) 25 mg PO Q6H PRN PRN Reason: Anxiety Last Admin: 09/15/24 20:53 Dose: 25 mg Loperamide HCl (Loperamide Hcl 2 Mg Capsule) 2 mg PO DAILY PRN PRN Reason: Diarrhea Last Admin: 08/24/24 14:42 Dose: 2 mg Loratadine (Loratadine 10 Mg Tablet) 10 mg PO BEDTIME [facility] Last Admin: 10/16/24 20:39 Dose: 10 mg Magnesium Hydroxide (Milk Of Magnesia 30 Ml Oral.Susp) 30 ml PO DAILY PRN PRN Reason: Constipation Pt Own (Lenalidomide (15 Mg)) 1 each PO DAILY [facility] Last Admin: 10/17/24 08:22 Dose: 1 each Omeprazole (Omeprazole 20 Mg Capsule.) 20 mg PO DAILY@0630 [facility] Last Admin: 10/17/24 06:13 Dose: 20 mg Ondansetron HCl (Ondansetron Odt 4 Mg Tab.Rapdis) 4 mg TRANSLINGU Q4H PRN PRN Reason: Nausea and Vomiting Last Admin: 08/28/24 20:33 Dose: 4 mg Senna (Sennosides 8.6 Mg Tablet) 17.2 mg PO DAILY PRN PRN Reason: constipation Sertraline HCl (Sertraline Hcl 50 Mg Tablet) 50 mg PO DAILY [facility] Last Admin: 10/17/24 08:11 Dose: 50 mg Vitamin D (Cholecalciferol (Vitamin D3) 25 Mcg Tablet) 50 mcg PO DAILY [facility] Last Admin: 10/17/24 08:11 Dose: 50 mcg Allergies Allergies Allergy/AdvReac Type Severity Reaction Status Date / Time No Known Allergies Allergy Verified 08/05/24 15:00 [No Known Allergies*] Assessment & Plan Assessment & Plan (1) Schizophrenia: Status: Acute Code(s): F20.9 - Schizophrenia, unspecified (2) Dementia: Status: Acute Code(s): F03.90 - Unspecified dementia, unspecified severity, without behavioral disturbance, psychotic disturbance, mood disturbance, and anxiety Plan The patient is an elderly female with a past history of schizophrenia on Clozaril chronically psychotic who was admitted from the community since she was paranoid against her caregivers. Plan 09/18 continue tx. coordination with oncology Dr. Veloz to resume tx for multiple myeloma while inpt (question of billing issues, resolved). 09/19 continue tx 09/20 continue tx 09/21 continue tx. 09/22 continue tx. 09/23 continue tx. 09/24 continue tx. 09/25 continue tx 09/26 continue tx. VS stable but on low side. 09/27/2024 Continue plan of care patient appears somewhat apathetic 09/29 Next chemo tx (Denosumab infusion) on December [address] Baugh' office. Lenalinomide 15mg po daily for 15 days on and 15 days off. She had last dose on 09/27/2024. Re-start on 10/12/2024. 09/30 continue tx. 10/01 continue tx. 10/02 continue tx. 10/04: Continue current management and treatment plan. 10/05: continue current management and treatment plan. 10/06 continue same treatment waiting for placement 10/07 continue same treatment waiting for placement 10/08 keep same treatment. 10/09 keep same treatment 10/10 keep same treatment 10/11: stable presentation. continue current mgmt. 10/12: as for yesterday. 10/13 continue tx. awaiting placement. She has to re-start Lenalinomide 15mg po daily x 15days. 10/14 called [facility] to bring in Lenalinomide, she reports she will bring today. also, pt [facility] due to cost of multiple myeloma tx. 10/15 continue tx. 10/16 will check clozapine levels on 4/4 AM. 10/17 continue tx. Reason for continued inpatient stay Substantial Risk for: inability to function Time Spent With Patient Time: Total time managing care of this patient today ____ minutes.
--- NOTE | 2024-10-17 11:03 | PC.NURSE ---
Pt refused assessment of current weight. Unable to place height and weight on the worklist, sent request to IT for assist with this issue. Work order pending at this time.
[2024-10-17 20:00] VITALS: BP 96/55; PULSE 88; RESP 18; TEMP 36.6; O2SAT 100
[2024-10-17] MEDS: cloZAPine 100 MG TABLET 300 MG PO (20:50)
[2024-10-17] MEDS: Loratadine 10 MG TABLET PO (20:50)
[2024-10-18] MEDS: Omeprazole 20 MG CAPSULE.DR PO (05:35)
[2024-10-18 08:00] VITALS: BP 108/56; PULSE 76; RESP 18; O2SAT 100
[2024-10-18] MEDS: Sertraline HCL 50 MG TABLET PO (09:16)
[2024-10-18] MEDS: LENALIDOMIDE 15 MG 1 EACH PO (09:16)
[2024-10-18] MEDS: Cholecalciferol (Vitamin D3) 25 MCG TABLET 50 MCG PO (09:16)
[2024-10-18] MEDS: Calcium Carbonate 750 MG TAB.CHEW PO ×3 (09:16→20:07)
[2024-10-18] MEDS: Aspirin Enteric Coated 81 MG TABLET.DR PO (09:16)
[2024-10-18] MEDS: Ferrous Sulfate 324 MG TABLET.DR PO (09:16)
[2024-10-18] MEDS: cloZAPine 25 MG TABLET PO ×2 (09:16→13:58)
[2024-10-18] MEDS: allopurinoL 100 MG TABLET PO (09:16)
[2024-10-18] MEDS: Acyclovir 200 MG CAPSULE 400 MG PO (09:16)
--- NOTE | 2024-10-18 09:35 | P.PNPSI_ITS ---
Subjective Subjective Date of Service: 10/18/24 Reason For Visit: paranoia Interim History: Pt seen in the milieu, discussed with her team who reports pt to be isolative with a flat affect. She consistently self dialogues which she is exhibiting today. She is without distress, calm and compliant with her medications. Medication Compliance: Yes Review of Systems Review of Systems Yes Unobtainable due to mental status Mental Status Exam Mental Status Exam Patient Appearance: Appropriate Patient Orientation: Person Level of Consciousness: Alert Patient Behavior: Talkative and Good Eye Contact Mood Description: Calm Affect Description: Calm Patient Cognition Impaired: Yes Speech Pattern: Spontaneous Speech Judgement: Poor Diagnostics Vital Signs (24Hr): Vital Signs - 24 hr 10/17/24 20:00 Temperature 97.8 F Pulse Rate 88 Respiratory Rate 18 Blood Pressure 96/55 L Pulse Oximetry 100 Oxygen Delivery Method Room Air BMI result Body Mass Index 28.4 Labs 09/13/24 08:17 09/13/24 08:17 Labs: Laboratory Results - last 48 hr 10/17/24 06:10 POC Glucose 91 Imaging Radiology Impressions: ITS Impressions Chest X-Ray 08/05/24 15:34 IMPRESSION: No active pulmonary disease. Electronically signed by: Derrell Marti MD 08/05/2024 03:58 PM [facility] [place] Medications Current Medications Acetaminophen (Acetaminophen 325 Mg Tablet) 650 mg PO Q6H PRN PRN Reason: pain (1-10) Acyclovir (Acyclovir 200 Mg Capsule) 400 mg PO DAILY [facility] Last Admin: 10/18/24 09:16 Dose: 400 mg Al Hydroxide/Mg Hydroxide (Magnesium Hydrox/Alum Hydrox 30 Ml Oral.Susp) 30 ml PO Q6H PRN PRN Reason: Heartburn/Nausea Albuterol Sulfate (Albuterol Sulfate 90 Mcg 8 Gm Inhaler) 2 puff INHALE Q4H PRN PRN Reason: Dyspnea Allopurinol (Allopurinol 100 Mg Tablet) 100 mg PO DAILY [facility] Last Admin: 10/18/24 09:16 Dose: 100 mg Aspirin (Aspirin Enteric Coated 81 Mg Tablet.Dr) 81 mg PO DAILY [facility] Last Admin: 10/18/24 09:16 Dose: 81 mg Calcium Carbonate (Calcium Carbonate 750 Mg Tab.Chew) 750 mg PO TID [facility] Last Admin: 10/18/24 09:16 Dose: 750 mg Clozapine (Clozapine 100 Mg Tablet) 300 mg PO BEDTIME [facility] Last Admin: 10/17/24 20:50 Dose: 300 mg Clozapine (Clozapine 25 Mg Tablet) 25 mg PO BID@0800,1500 [facility] Last Admin: 10/18/24 09:16 Dose: 25 mg Ferrous Sulfate (Ferrous Sulfate 324 Mg Tablet.) 324 mg PO DAILY [facility] Last Admin: 10/18/24 09:16 Dose: 324 mg Hydroxyzine HCl (Hydroxyzine Hcl 25 Mg Tablet) 25 mg PO Q6H PRN PRN Reason: Anxiety Last Admin: 09/15/24 20:53 Dose: 25 mg Loperamide HCl (Loperamide Hcl 2 Mg Capsule) 2 mg PO DAILY PRN PRN Reason: Diarrhea Last Admin: 08/24/24 14:42 Dose: 2 mg Loratadine (Loratadine 10 Mg Tablet) 10 mg PO BEDTIME [facility] Last Admin: 10/17/24 20:50 Dose: 10 mg Magnesium Hydroxide (Milk Of Magnesia 30 Ml Oral.Susp) 30 ml PO DAILY PRN PRN Reason: Constipation Pt Own (Lenalidomide (15 Mg)) 1 each PO DAILY [facility] Last Admin: 10/18/24 09:16 Dose: 1 each Omeprazole (Omeprazole 20 Mg Capsule.) 20 mg PO DAILY@0630 [facility] Last Admin: 10/18/24 05:35 Dose: 20 mg Ondansetron HCl (Ondansetron Odt 4 Mg Tab.Rapdis) 4 mg TRANSLINGU Q4H PRN PRN Reason: Nausea and Vomiting Last Admin: 08/28/24 20:33 Dose: 4 mg Senna (Sennosides 8.6 Mg Tablet) 17.2 mg PO DAILY PRN PRN Reason: constipation Sertraline HCl (Sertraline Hcl 50 Mg Tablet) 50 mg PO DAILY [facility] Last Admin: 10/18/24 09:16 Dose: 50 mg Vitamin D (Cholecalciferol (Vitamin D3) 25 Mcg Tablet) 50 mcg PO DAILY [facility] Last Admin: 10/18/24 09:16 Dose: 50 mcg Allergies Allergies Allergy/AdvReac Type Severity Reaction Status Date / Time No Known Allergies Allergy Verified 08/05/24 15:00 [No Known Allergies*] Assessment & Plan Assessment & Plan (1) Schizophrenia: Status: Acute Code(s): F20.9 - Schizophrenia, unspecified (2) Dementia: Status: Acute Code(s): F03.90 - Unspecified dementia, unspecified severity, without behavioral disturbance, psychotic disturbance, mood disturbance, and anxiety Plan The patient is an elderly female with a past history of schizophrenia on Clozaril chronically psychotic who was admitted from the community since she was paranoid against her caregivers. Plan 09/18 continue tx. coordination with oncology Dr. Veloz to resume tx for multiple myeloma while inpt (question of billing issues, resolved). 09/19 continue tx 09/20 continue tx 09/21 continue tx. 09/22 continue tx. 09/23 continue tx. 09/24 continue tx. 09/25 continue tx 09/26 continue tx. VS stable but on low side. 09/27/2024 Continue plan of care patient appears somewhat apathetic 09/29 Next chemo tx (Denosumab infusion) on December [address] Baugh' office. Lenalinomide 15mg po daily for 15 days on and 15 days off. She had last dose on 09/27/2024. Re-start on 10/12/2024. 09/30 continue tx. 10/01 continue tx. 10/02 continue tx. 10/04: Continue current management and treatment plan. 10/05: continue current management and treatment plan. 10/06 continue same treatment waiting for placement 10/07 continue same treatment waiting for placement 10/08 keep same treatment. 10/09 keep same treatment 10/10 keep same treatment 10/11: stable presentation. continue current mgmt. 10/12: as for yesterday. 10/13 continue tx. awaiting placement. She has to re-start Lenalinomide 15mg po daily x 15days. 10/14 called [facility] to bring in Lenalinomide, she reports she will bring today. also, pt denied at snf due to cost of multiple myeloma tx. 10/15 continue tx. 10/16 will check clozapine levels on 4 AM. 10/17 continue tx. 10/18 continue tx. Clozapine level pending Reason for continued inpatient stay Substantial Risk for: rapid decompensation Time Spent With Patient Time: Total time managing care of this patient today ____ minutes.
[2024-10-18 19:43] VITALS: BP 94/63; PULSE 77; RESP 18; TEMP 36.2; O2SAT 98
[2024-10-18] MEDS: cloZAPine 100 MG TABLET 300 MG PO (20:07)
[2024-10-18] MEDS: Loratadine 10 MG TABLET PO (20:07)
[2024-10-19] MEDS: Omeprazole 20 MG CAPSULE.DR PO (05:46)
[2024-10-19 08:00] VITALS: BP 102/54; PULSE 84; RESP 18; TEMP 36.4; O2SAT 100
[2024-10-19] MEDS: Aspirin Enteric Coated 81 MG TABLET.DR PO (08:13)
[2024-10-19] MEDS: Cholecalciferol (Vitamin D3) 25 MCG TABLET 50 MCG PO (08:13)
[2024-10-19] MEDS: Calcium Carbonate 750 MG TAB.CHEW PO ×3 (08:13→20:35)
[2024-10-19] MEDS: Sertraline HCL 50 MG TABLET PO (08:13)
[2024-10-19] MEDS: Ferrous Sulfate 324 MG TABLET.DR PO (08:13)
[2024-10-19] MEDS: allopurinoL 100 MG TABLET PO (08:13)
[2024-10-19] MEDS: cloZAPine 25 MG TABLET PO ×2 (08:13→14:00)
[2024-10-19] MEDS: Acyclovir 200 MG CAPSULE 400 MG PO (08:13)
[2024-10-19] MEDS: LENALIDOMIDE 15 MG 1 EACH PO (08:18)
--- NOTE | 2024-10-19 09:18 | P.PNPSI_ITS ---
Subjective Subjective Date of Service: 10/19/24 Reason For Visit: paranoia Interim History: Today: Withdrawn, guarded, calm. Was isolating in bed this afternoon under covers awake. Appeared sullen, depressed, flat. When approached she pulled sheet up to her chin and simply responded No when I introduced myself. After checking with staff that this was the correct person (and that I was pronouncing her name correctly) I approached her again she more emphatically interrupted No, okay?. No . She remained quiet, later seen looking toward window. She has been self- dialoguing according to staff. No behavioral issues reported. Sunday: Pt seen in the milieu, discussed with her team who reports pt to be isolative with a flat affect. She consistently self dialogues which she is exhibiting today. She is without distress, calm and compliant with her medications. Review of Systems Review of Systems Denies pain Denies medical concerns today. Yes all other systems are reviewed and are negative and Unobtainable due to mental status Mental Status Exam Mental Status Exam Narrative: Appearance: wearing casual clothing, fair hygine, in NAD Behavior: guarded, somewhat dismissive but polite Psychomotor: no retardation or agitation noted Speech: clear, latency noted, minimally spontaneous TP: poverty of thought, thought blocking TC: wanting to be left alone Mood: okay Affect: constricted SI: denies HI: denies VH/AH: internally preoccupied Delusions: guarded suspicious, cap gras delusions Insight/judgment: impaired x 2. memory/cog: alert, not oriented to month situation nor year. Patient Appearance: Appropriate Patient Orientation: Person Level of Consciousness: Alert Patient Behavior: Talkative and Good Eye Contact Mood Description: Calm Affect Description: Calm Patient Cognition Impaired: Yes Ability to Follow Directions: Good Speech Pattern: Spontaneous Speech Memory Description: Remote Impaired, Immediate Impaired, Episodic Impaired and Recent Impaired Diagnostics Vital Signs (24Hr): Vital Signs - 24 hr 10/18/24 19:43 10/19/24 08:00 Temperature 97.2 F 97.5 F Pulse Rate 77 84 Respiratory Rate 18 18 Blood Pressure 94/63 102/54 L Pulse Oximetry 98 100 Oxygen Delivery Method Room Air Room Air BMI result Body Mass Index 28.4 Labs 09/13/24 08:17 09/13/24 08:17 Imaging Radiology Impressions: ITS Impressions Chest X-Ray 08/05/24 15:34 IMPRESSION: No active pulmonary disease. Electronically signed by: Derrell Marti MD 08/05/2024 03:58 PM [facility] Medications Medications Current Medications Acetaminophen (Acetaminophen 325 Mg Tablet) 650 mg PO Q6H PRN PRN Reason: pain (1-10) Acyclovir (Acyclovir 200 Mg Capsule) 400 mg PO DAILY [facility] Last Admin: 10/19/24 08:13 Dose: 400 mg Al Hydroxide/Mg Hydroxide (Magnesium Hydrox/Alum Hydrox 30 Ml Oral.Susp) 30 ml PO Q6H PRN PRN Reason: Heartburn/Nausea Albuterol Sulfate (Albuterol Sulfate 90 Mcg 8 Gm Inhaler) 2 puff INHALE Q4H PRN PRN Reason: Dyspnea Allopurinol (Allopurinol 100 Mg Tablet) 100 mg PO DAILY [facility] Last Admin: 10/19/24 08:13 Dose: 100 mg Aspirin (Aspirin Enteric Coated 81 Mg Tablet.) 81 mg PO DAILY [facility] Last Admin: 10/19/24 08:13 Dose: 81 mg Calcium Carbonate (Calcium Carbonate 750 Mg Tab.Chew) 750 mg PO TID [facility] Last Admin: 10/19/24 08:13 Dose: 750 mg Clozapine (Clozapine 100 Mg Tablet) 300 mg PO BEDTIME [facility] Last Admin: 10/18/24 20:07 Dose: 300 mg Clozapine (Clozapine 25 Mg Tablet) 25 mg PO BID@0800,1500 [facility] Last Admin: 10/19/24 08:13 Dose: 25 mg Ferrous Sulfate (Ferrous Sulfate 324 Mg Tablet.) 324 mg PO DAILY [facility] Last Admin: 10/19/24 08:13 Dose: 324 mg Hydroxyzine HCl (Hydroxyzine Hcl 25 Mg Tablet) 25 mg PO Q6H PRN PRN Reason: Anxiety Last Admin: 09/15/24 20:53 Dose: 25 mg Loperamide HCl (Loperamide Hcl 2 Mg Capsule) 2 mg PO DAILY PRN PRN Reason: Diarrhea Last Admin: 08/24/24 14:42 Dose: 2 mg Loratadine (Loratadine 10 Mg Tablet) 10 mg PO BEDTIME [facility] Last Admin: 10/18/24 20:07 Dose: 10 mg Magnesium Hydroxide (Milk Of Magnesia 30 Ml Oral.Susp) 30 ml PO DAILY PRN PRN Reason: Constipation Pt Own (Lenalidomide (15 Mg)) 1 each PO DAILY [facility] Last Admin: 10/19/24 08:18 Dose: 1 each Omeprazole (Omeprazole 20 Mg Capsule.) 20 mg PO DAILY@0630 [facility] Last Admin: 10/19/24 05:46 Dose: 20 mg Ondansetron HCl (Ondansetron Odt 4 Mg Tab.Rapdis) 4 mg TRANSLINGU Q4H PRN PRN Reason: Nausea and Vomiting Last Admin: 08/28/24 20:33 Dose: 4 mg Senna (Sennosides 8.6 Mg Tablet) 17.2 mg PO DAILY PRN PRN Reason: constipation Sertraline HCl (Sertraline Hcl 50 Mg Tablet) 50 mg PO DAILY [facility] Last Admin: 10/19/24 08:13 Dose: 50 mg Vitamin D (Cholecalciferol (Vitamin D3) 25 Mcg Tablet) 50 mcg PO DAILY [facility] Last Admin: 10/19/24 08:13 Dose: 50 mcg Allergies Allergies Allergy/AdvReac Type Severity Reaction Status Date / Time No Known Allergies Allergy Verified 08/05/24 15:00 [No Known Allergies*] Assessment & Plan Assessment & Plan (1) Schizophrenia: Status: Acute Code(s): F20.9 - Schizophrenia, unspecified (2) Dementia: Status: Acute Code(s): F03.90 - Unspecified dementia, unspecified severity, without behavioral disturbance, psychotic disturbance, mood disturbance, and anxiety Plan The patient is an elderly female with a past history of schizophrenia on Clozaril chronically psychotic who was admitted from the community since she was paranoid against her caregivers. Plan 09/18 continue tx. coordination with oncology Dr. Veloz to resume tx for multiple myeloma while inpt (question of billing issues, resolved). 09/19 continue tx 09/20 continue tx 09/21 continue tx. 09/22 continue tx. 09/23 continue tx. 09/24 continue tx. 09/25 continue tx 09/26 continue tx. VS stable but on low side. 09/27/2024 Continue plan of care patient appears somewhat apathetic 09/29 Next chemo tx (Denosumab infusion) on December [address] Baugh' office. Lenalinomide 15mg po daily for 15 days on and 15 days off. She had last dose on 09/27/2024. Re-start on 10/12/2024. 3/18 continue tx. 10/01 continue tx. 10/02 continue tx. 10/04: Continue current management and treatment plan. 10/05: continue current management and treatment plan. 10/06 continue same treatment waiting for placement 10/07 continue same treatment waiting for placement 10/08 keep same treatment. 10/09 keep same treatment 10/10 keep same treatment 10/11: stable presentation. continue current mgmt. 10/12: as for yesterday. 10/13 continue tx. awaiting placement. She has to re-start Lenalinomide 15mg po daily x 15days. 10/14 called [facility] to bring in Lenalinomide, she reports she will bring today. also, pt denied at snf due to cost of multiple myeloma tx. 10/15 continue tx. 10/16 will check clozapine levels on 4 AM. 10/17 continue tx. 10/18 continue tx. Clozapine level pending 10/19 continue tx. Clozapine level still pending Patient educated on: diagnosis and medication risk/benefits Informed Consent: understands Reason for continued inpatient stay Substantial Risk for: med/psych decompensation Time Spent With Patient Time: Total time managing care of this patient today ____ minutes.
[2024-10-19 20:00] VITALS: BP 102/58; PULSE 72; RESP 16; TEMP 36.7; O2SAT 99
[2024-10-19] MEDS: Loratadine 10 MG TABLET PO (20:35)
[2024-10-19] MEDS: cloZAPine 100 MG TABLET 300 MG PO (20:35)
[2024-10-20 08:00] VITALS: BP 101/54; PULSE 91; RESP 18; TEMP 36.1; O2SAT 100
--- NOTE | 2024-10-20 08:32 | P.PNPSI_ITS ---
Subjective Subjective Date of Service: 10/20/24 Reason For Visit: paranoia Subjective Notes: Conditional Voluntary Interim History: Pt slept through the night. 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 She is observed self dialoguing. She is taking medications as prescribed. pending clozaril levels. Review of Systems Review of Systems Denies pain Denies medical concerns today. Yes all other systems are reviewed and are negative and Unobtainable due to mental status Mental Status Exam Mental Status Exam Narrative: Appearance: wearing casual clothing, fair hygine, in NAD Behavior: guarded, somewhat dismissive but polite Psychomotor: no retardation or agitation noted Speech: clear, latency noted, minimally spontaneous TP: poverty of thought, thought blocking TC: wanting to be left alone Mood: okay Affect: constricted SI: denies HI: denies VH/AH: internally preoccupied Delusions: guarded suspicious, cap gras delusions Insight/judgment: impaired x 2. memory/cog: alert, not oriented to month situation nor year. Patient Appearance: Appropriate Patient Orientation: Person Level of Consciousness: Alert Patient Behavior: Talkative and Good Eye Contact Mood Description: Calm Affect Description: Calm Patient Cognition Impaired: Yes Ability to Follow Directions: Good Speech Pattern: Spontaneous Speech Memory Description: Remote Impaired, Immediate Impaired, Episodic Impaired and Recent Impaired Diagnostics Vital Signs (24Hr): Vital Signs - 24 hr 10/19/24 20:00 Temperature 98.1 F Pulse Rate 72 Respiratory Rate 16 Blood Pressure 102/58 L Pulse Oximetry 99 Oxygen Delivery Method Room Air BMI result Body Mass Index 28.4 Labs 09/13/24 08:17 09/13/24 08:17 Imaging Radiology Impressions: ITS Impressions Chest X-Ray 08/05/24 15:34 IMPRESSION: No active pulmonary disease. Electronically signed by: Derrell Marti MD 08/05/2024 03:58 PM [facility] Medications Medications Current Medications Acetaminophen (Acetaminophen 325 Mg Tablet) 650 mg PO Q6H PRN PRN Reason: pain (1-10) Acyclovir (Acyclovir 200 Mg Capsule) 400 mg PO DAILY [facility] Last Admin: 10/19/24 08:13 Dose: 400 mg Al Hydroxide/Mg Hydroxide (Magnesium Hydrox/Alum Hydrox 30 Ml Oral.Susp) 30 ml PO Q6H PRN PRN Reason: Heartburn/Nausea Albuterol Sulfate (Albuterol Sulfate 90 Mcg 8 Gm Inhaler) 2 puff INHALE Q4H PRN PRN Reason: Dyspnea Allopurinol (Allopurinol 100 Mg Tablet) 100 mg PO DAILY [facility] Last Admin: 10/19/24 08:13 Dose: 100 mg Aspirin (Aspirin Enteric Coated 81 Mg Tablet.) 81 mg PO DAILY [facility] Last Admin: 10/19/24 08:13 Dose: 81 mg Calcium Carbonate (Calcium Carbonate 750 Mg Tab.Chew) 750 mg PO TID [facility] Last Admin: 10/19/24 20:35 Dose: 750 mg Clozapine (Clozapine 100 Mg Tablet) 300 mg PO BEDTIME [facility] Last Admin: 10/19/24 20:35 Dose: 300 mg Clozapine (Clozapine 25 Mg Tablet) 25 mg PO BID@0800,1500 [facility] Last Admin: 10/19/24 14:00 Dose: 25 mg Ferrous Sulfate (Ferrous Sulfate 324 Mg Tablet.) 324 mg PO DAILY [facility] Last Admin: 10/19/24 08:13 Dose: 324 mg Hydroxyzine HCl (Hydroxyzine Hcl 25 Mg Tablet) 25 mg PO Q6H PRN PRN Reason: Anxiety Last Admin: 09/15/24 20:53 Dose: 25 mg Loperamide HCl (Loperamide Hcl 2 Mg Capsule) 2 mg PO DAILY PRN PRN Reason: Diarrhea Last Admin: 08/24/24 14:42 Dose: 2 mg Loratadine (Loratadine 10 Mg Tablet) 10 mg PO BEDTIME [facility] Last Admin: 10/19/24 20:35 Dose: 10 mg Magnesium Hydroxide (Milk Of Magnesia 30 Ml Oral.Susp) 30 ml PO DAILY PRN PRN Reason: Constipation Pt Own (Lenalidomide (15 Mg)) 1 each PO DAILY [facility] Last Admin: 10/19/24 08:18 Dose: 1 each Omeprazole (Omeprazole 20 Mg Capsule.) 20 mg PO DAILY@0630 [facility] Last Admin: 10/19/24 05:46 Dose: 20 mg Ondansetron HCl (Ondansetron Odt 4 Mg Tab.Rapdis) 4 mg TRANSLINGU Q4H PRN PRN Reason: Nausea and Vomiting Last Admin: 08/28/24 20:33 Dose: 4 mg Senna (Sennosides 8.6 Mg Tablet) 17.2 mg PO DAILY PRN PRN Reason: constipation Sertraline HCl (Sertraline Hcl 50 Mg Tablet) 50 mg PO DAILY [facility] Last Admin: 10/19/24 08:13 Dose: 50 mg Vitamin D (Cholecalciferol (Vitamin D3) 25 Mcg Tablet) 50 mcg PO DAILY [facility] Last Admin: 10/19/24 08:13 Dose: 50 mcg Allergies Allergies Allergy/AdvReac Type Severity Reaction Status Date / Time No Known Allergies Allergy Verified 08/05/24 15:00 [No Known Allergies*] Assessment & Plan Assessment & Plan (1) Schizophrenia: Status: Acute Code(s): F20.9 - Schizophrenia, unspecified (2) Dementia: Status: Acute Code(s): F03.90 - Unspecified dementia, unspecified severity, without behavioral disturbance, psychotic disturbance, mood disturbance, and anxiety Plan The patient is an elderly female with a past history of schizophrenia on Clozaril chronically psychotic who was admitted from the community since she was paranoid against her caregivers. Plan 09/18 continue tx. coordination with oncology Dr. Veloz to resume tx for multiple myeloma while inpt (question of billing issues, resolved). 09/19 continue tx 09/20 continue tx 09/21 continue tx. 09/22 continue tx. 09/23 continue tx. 09/24 continue tx. 09/25 continue tx 09/26 continue tx. VS stable but on low side. 09/27/2024 Continue plan of care patient appears somewhat apathetic 09/29 Next chemo tx (Denosumab infusion) on December [address] Baugh' office. Lenalinomide 15mg po daily for 15 days on and 15 days off. She had last dose on 09/27/2024. Re-start on 10/12/2024. 09/30 continue tx. 10/01 continue tx. 10/02 continue tx. 10/04: Continue current management and treatment plan. 10/05: continue current management and treatment plan. 10/06 continue same treatment waiting for placement 10/07 continue same treatment waiting for placement 10/08 keep same treatment. 10/09 keep same treatment 10/10 keep same treatment 10/11: stable presentation. continue current mgmt. 10/12: as for yesterday. 10/13 continue tx. awaiting placement. She has to re-start Lenalinomide 15mg po daily x 15days. 10/14 called [facility] to bring in Lenalinomide, she reports she will bring today. also, pt denied at snf due to cost of multiple myeloma tx. 10/15 continue tx. 10/16 will check clozapine levels on 10/17 AM. 10/17 continue tx. 10/18 continue tx. Clozapine level pending 10/19 continue tx. Clozapine level still pending 10/20 continue tx. Reason for continued inpatient stay Substantial Risk for: inability to function Time Spent With Patient Time: Total time managing care of this patient today ____ minutes.
[2024-10-20] MEDS: Sertraline HCL 50 MG TABLET PO (08:54)
[2024-10-20] MEDS: Aspirin Enteric Coated 81 MG TABLET.DR PO (08:54)
[2024-10-20] MEDS: LENALIDOMIDE 15 MG 1 EACH PO (08:54)
[2024-10-20] MEDS: Acyclovir 200 MG CAPSULE 400 MG PO (08:55)
[2024-10-20] MEDS: allopurinoL 100 MG TABLET PO (08:55)
[2024-10-20] MEDS: Calcium Carbonate 750 MG TAB.CHEW PO ×3 (08:55→20:40)
[2024-10-20] MEDS: Ferrous Sulfate 324 MG TABLET.DR PO (08:55)
[2024-10-20] MEDS: Cholecalciferol (Vitamin D3) 25 MCG TABLET 50 MCG PO (08:55)
[2024-10-20] MEDS: cloZAPine 25 MG TABLET PO ×2 (08:55→15:38)
[2024-10-20] MEDS: Omeprazole 20 MG CAPSULE.DR PO (09:43)
[2024-10-20 20:00] VITALS: BP 94/55; PULSE 81; RESP 16; TEMP 36.4; O2SAT 99
[2024-10-20] MEDS: Loratadine 10 MG TABLET PO (20:40)
[2024-10-20] MEDS: cloZAPine 100 MG TABLET 300 MG PO (20:40)
[2024-10-21] MEDS: Omeprazole 20 MG CAPSULE.DR PO (06:10)
[2024-10-21 08:00] VITALS: BP 132/67; PULSE 78; RESP 18; TEMP 35.9; O2SAT 99
[2024-10-21] MEDS: Cholecalciferol (Vitamin D3) 25 MCG TABLET 50 MCG PO (08:17)
[2024-10-21] MEDS: cloZAPine 25 MG TABLET PO ×2 (08:17→14:51)
[2024-10-21] MEDS: Sertraline HCL 50 MG TABLET PO (08:18)
[2024-10-21] MEDS: Calcium Carbonate 750 MG TAB.CHEW PO ×3 (08:18→21:40)
[2024-10-21] MEDS: allopurinoL 100 MG TABLET PO (08:19)
[2024-10-21] MEDS: Ferrous Sulfate 324 MG TABLET.DR PO (08:20)
[2024-10-21] MEDS: Acyclovir 200 MG CAPSULE 400 MG PO (08:20)
[2024-10-21] MEDS: LENALIDOMIDE 15 MG 1 EACH PO (08:21)
[2024-10-21] MEDS: Aspirin Enteric Coated 81 MG TABLET.DR PO (08:21)
[2024-10-21 08:24] LABS: Neut%MD 53.9 %; Neutrophils Absolute Auto 1.6 x10*3/uL (2.0-8.3)
[2024-10-21 20:00] VITALS: BP 91/58; PULSE 78; RESP 16; TEMP 36.1; O2SAT 99
[2024-10-21] MEDS: Loratadine 10 MG TABLET PO (21:40)
[2024-10-21] MEDS: cloZAPine 100 MG TABLET 300 MG PO (21:40)
--- NOTE | 2024-10-21 22:42 | P.PNPSI_ITS ---
Subjective Subjective Date of Service: 10/21/24 Reason For Visit: paranoia Subjective Notes: Conditional Voluntary Interim History: Pt slept through the night. She is taking medications as prescribed. Avoids conversation with staff. mostly in her room, self dialoguing. Review of Systems Review of Systems Denies pain Denies medical concerns today. Yes all other systems are reviewed and are negative and Unobtainable due to mental status Mental Status Exam Mental Status Exam Narrative: Appearance: wearing casual clothing, fair hygine, in NAD Behavior: guarded, somewhat dismissive but polite Psychomotor: no retardation or agitation noted Speech: clear, latency noted, minimally spontaneous TP: poverty of thought, thought blocking TC: wanting to be left alone Mood: okay Affect: constricted SI: denies HI: denies VH/AH: internally preoccupied Delusions: guarded suspicious, cap gras delusions Insight/judgment: impaired x 2. memory/cog: alert, not oriented to month situation nor year. Diagnostics Vital Signs (24Hr): Vital Signs - 24 hr 10/21/24 08:00 Temperature 96.7 F L Pulse Rate 78 Respiratory Rate 18 Blood Pressure 132/67 Pulse Oximetry 99 BMI result Body Mass Index 28.4 Labs 09/13/24 08:17 09/13/24 08:17 Labs: Laboratory Results - last 48 hr 10/21/24 08:08 Absolute Neuts (auto) 1.6 L Imaging Radiology Impressions: ITS Impressions Chest X-Ray 08/05/24 15:34 IMPRESSION: No active pulmonary disease. Electronically signed by: Derrell Marti MD 08/05/2024 03:58 PM [facility] Medications Medications Current Medications Acetaminophen (Acetaminophen 325 Mg Tablet) 650 mg PO Q6H PRN PRN Reason: pain (1-10) Acyclovir (Acyclovir 200 Mg Capsule) 400 mg PO DAILY [facility] Last Admin: 10/21/24 08:20 Dose: 400 mg Al Hydroxide/Mg Hydroxide (Magnesium Hydrox/Alum Hydrox 30 Ml Oral.Susp) 30 ml PO Q6H PRN PRN Reason: Heartburn/Nausea Albuterol Sulfate (Albuterol Sulfate 90 Mcg 8 Gm Inhaler) 2 puff INHALE Q4H PRN PRN Reason: Dyspnea Allopurinol (Allopurinol 100 Mg Tablet) 100 mg PO DAILY [facility] Last Admin: 10/21/24 08:19 Dose: 100 mg Aspirin (Aspirin Enteric Coated 81 Mg Tablet.) 81 mg PO DAILY [facility] Last Admin: 10/21/24 08:21 Dose: 81 mg Calcium Carbonate (Calcium Carbonate 750 Mg Tab.Chew) 750 mg PO TID [facility] Last Admin: 10/21/24 21:40 Dose: 750 mg Clozapine (Clozapine 100 Mg Tablet) 300 mg PO BEDTIME [facility] Last Admin: 10/21/24 21:40 Dose: 300 mg Clozapine (Clozapine 25 Mg Tablet) 25 mg PO BID@0800,1500 [facility] Last Admin: 10/21/24 14:51 Dose: 25 mg Ferrous Sulfate (Ferrous Sulfate 324 Mg Tablet.) 324 mg PO DAILY [facility] Last Admin: 10/21/24 08:20 Dose: 324 mg Hydroxyzine HCl (Hydroxyzine Hcl 25 Mg Tablet) 25 mg PO Q6H PRN PRN Reason: Anxiety Last Admin: 09/15/24 20:53 Dose: 25 mg Loperamide HCl (Loperamide Hcl 2 Mg Capsule) 2 mg PO DAILY PRN PRN Reason: Diarrhea Last Admin: 08/24/24 14:42 Dose: 2 mg Loratadine (Loratadine 10 Mg Tablet) 10 mg PO BEDTIME [facility] Last Admin: 10/21/24 21:40 Dose: 10 mg Magnesium Hydroxide (Milk Of Magnesia 30 Ml Oral.Susp) 30 ml PO DAILY PRN PRN Reason: Constipation Pt Own (Lenalidomide (15 Mg)) 1 each PO DAILY [facility] Last Admin: 10/21/24 08:21 Dose: 1 each Omeprazole (Omeprazole 20 Mg Capsule.) 20 mg PO DAILY@0630 [facility] Last Admin: 10/21/24 06:10 Dose: 20 mg Ondansetron HCl (Ondansetron Odt 4 Mg Tab.Rapdis) 4 mg TRANSLINGU Q4H PRN PRN Reason: Nausea and Vomiting Last Admin: 08/28/24 20:33 Dose: 4 mg Senna (Sennosides 8.6 Mg Tablet) 17.2 mg PO DAILY PRN PRN Reason: constipation Sertraline HCl (Sertraline Hcl 50 Mg Tablet) 50 mg PO DAILY [facility] Last Admin: 10/21/24 08:18 Dose: 50 mg Vitamin D (Cholecalciferol (Vitamin D3) 25 Mcg Tablet) 50 mcg PO DAILY [facility] Last Admin: 10/21/24 08:17 Dose: 50 mcg Allergies Allergies Allergy/AdvReac Type Severity Reaction Status Date / Time No Known Allergies Allergy Verified 08/05/24 15:00 [No Known Allergies*] Assessment & Plan Assessment & Plan (1) Schizophrenia: Status: Acute Code(s): F20.9 - Schizophrenia, unspecified (2) Dementia: Status: Acute Code(s): F03.90 - Unspecified dementia, unspecified severity, without behavioral disturbance, psychotic disturbance, mood disturbance, and anxiety Plan The patient is an elderly female with a past history of schizophrenia on Clozaril chronically psychotic who was admitted from the community since she was paranoid against her caregivers. Plan 09/18 continue tx. coordination with oncology Dr. Veloz to resume tx for multiple myeloma while inpt (question of billing issues, resolved). 09/19 continue tx 09/20 continue tx 09/21 continue tx. 09/22 continue tx. 09/23 continue tx. 09/24 continue tx. 09/25 continue tx 09/26 continue tx. VS stable but on low side. 09/27/2024 Continue plan of care patient appears somewhat apathetic 09/29 Next chemo tx (Denosumab infusion) on December [address] Baugh' office. Lenalinomide 15mg po daily for 15 days on and 15 days off. She had last dose on 09/27/2024. Re-start on 10/12/2024. 09/30 continue tx. 10/01 continue tx. 10/02 continue tx. 10/04: Continue current management and treatment plan. 10/05: continue current management and treatment plan. 10/06 continue same treatment waiting for placement 10/07 continue same treatment waiting for placement 10/08 keep same treatment. 10/09 keep same treatment 10/10 keep same treatment 10/11: stable presentation. continue current mgmt. 10/12: as for yesterday. 10/13 continue tx. awaiting placement. She has to re-start Lenalinomide 15mg po daily x 15days. 10/14 called [facility] to bring in Lenalinomide, she reports she will bring today. also, pt denied at snf due to cost of multiple myeloma tx. 10/15 continue tx. 10/16 will check clozapine levels on 4 AM. 10/17 continue tx. 10/18 continue tx. Clozapine level pending 10/19 continue tx. Clozapine level still pending 10/20 continue tx. 10/21 pending clozaril levels Reason for continued inpatient stay Substantial Risk for: inability to function Time Spent With Patient Time: Total time managing care of this patient today ____ minutes.
[2024-10-22] MEDS: Omeprazole 20 MG CAPSULE.DR PO (05:40)
[2024-10-22 08:00] VITALS: BP 105/59; PULSE 101; RESP 18; TEMP 35.9; O2SAT 99
[2024-10-22] MEDS: Cholecalciferol (Vitamin D3) 25 MCG TABLET 50 MCG PO (08:41)
[2024-10-22] MEDS: Acyclovir 200 MG CAPSULE 400 MG PO (08:41)
[2024-10-22] MEDS: Aspirin Enteric Coated 81 MG TABLET.DR PO (08:41)
[2024-10-22] MEDS: Sertraline HCL 50 MG TABLET PO (08:42)
[2024-10-22] MEDS: Ferrous Sulfate 324 MG TABLET.DR PO (08:42)
[2024-10-22] MEDS: Calcium Carbonate 750 MG TAB.CHEW PO ×3 (08:42→21:12)
[2024-10-22] MEDS: LENALIDOMIDE 15 MG 1 EACH PO (08:42)
[2024-10-22] MEDS: cloZAPine 25 MG TABLET PO ×2 (08:42→14:15)
[2024-10-22] MEDS: allopurinoL 100 MG TABLET PO (08:42)
[2024-10-22 12:43] LABS: Clozapine (Clozaril) 715 mcg/L; Norclozapine 474 mcg/L (25-400)
--- NOTE | 2024-10-22 14:39 | P.PNPSI_ITS ---
Subjective Subjective Date of Service: 10/22/24 Reason For Visit: paranoia Interim History: Pt slept through the night. She is taking medications as prescribed. Avoids conversation with staff. mostly in her room, self dialoguing. Review of Systems Review of Systems Denies pain Denies medical concerns today. Yes all other systems are reviewed and are negative and Unobtainable due to mental status Mental Status Exam Mental Status Exam Narrative: Appearance: wearing casual clothing, fair hygine, in NAD Behavior: guarded, somewhat dismissive but polite Psychomotor: no retardation or agitation noted Speech: clear, latency noted, minimally spontaneous TP: poverty of thought, thought blocking TC: wanting to be left alone Mood: okay Affect: constricted SI: denies HI: denies VH/AH: internally preoccupied Delusions: guarded suspicious, cap gras delusions Insight/judgment: impaired x 2. memory/cog: alert, not oriented to month situation nor year. Diagnostics Vital Signs (24Hr): Vital Signs - 24 hr 10/21/24 20:00 10/22/24 08:00 Temperature 96.9 F 96.6 F L Pulse Rate 78 101 H Respiratory Rate 16 18 Blood Pressure 91/58 L 105/59 L Pulse Oximetry 99 99 Oxygen Delivery Method Room Air Room Air BMI result Body Mass Index 28.4 Labs 09/13/24 08:17 09/13/24 08:17 Labs: Laboratory Results - last 48 hr 10/17/24 10/21/24 08:21 08:08 Absolute Neuts (auto) 1.6 L Clozapine 715 Norclozapine 474 H Imaging Radiology Impressions: ITS Impressions Chest X-Ray 08/05/24 15:34 IMPRESSION: No active pulmonary disease. Electronically signed by: Derrell Marti MD 08/05/2024 03:58 PM [facility] [place] Medications Current Medications Acetaminophen (Acetaminophen 325 Mg Tablet) 650 mg PO Q6H PRN PRN Reason: pain (1-10) Acyclovir (Acyclovir 200 Mg Capsule) 400 mg PO DAILY [facility] Last Admin: 10/22/24 08:41 Dose: 400 mg Al Hydroxide/Mg Hydroxide (Magnesium Hydrox/Alum Hydrox 30 Ml Oral.Susp) 30 ml PO Q6H PRN PRN Reason: Heartburn/Nausea Albuterol Sulfate (Albuterol Sulfate 90 Mcg 8 Gm Inhaler) 2 puff INHALE Q4H PRN PRN Reason: Dyspnea Allopurinol (Allopurinol 100 Mg Tablet) 100 mg PO DAILY [facility] Last Admin: 10/22/24 08:42 Dose: 100 mg Aspirin (Aspirin Enteric Coated 81 Mg Tablet.) 81 mg PO DAILY [facility] Last Admin: 10/22/24 08:41 Dose: 81 mg Calcium Carbonate (Calcium Carbonate 750 Mg Tab.Chew) 750 mg PO TID [facility] Last Admin: 10/22/24 14:15 Dose: 750 mg Clozapine (Clozapine 100 Mg Tablet) 300 mg PO BEDTIME [facility] Last Admin: 10/21/24 21:40 Dose: 300 mg Clozapine (Clozapine 25 Mg Tablet) 25 mg PO BID@0800,1500 [facility] Last Admin: 10/22/24 14:15 Dose: 25 mg Ferrous Sulfate (Ferrous Sulfate 324 Mg Tablet.) 324 mg PO DAILY [facility] Last Admin: 10/22/24 08:42 Dose: 324 mg Hydroxyzine HCl (Hydroxyzine Hcl 25 Mg Tablet) 25 mg PO Q6H PRN PRN Reason: Anxiety Last Admin: 09/15/24 20:53 Dose: 25 mg Loperamide HCl (Loperamide Hcl 2 Mg Capsule) 2 mg PO DAILY PRN PRN Reason: Diarrhea Last Admin: 08/24/24 14:42 Dose: 2 mg Loratadine (Loratadine 10 Mg Tablet) 10 mg PO BEDTIME [facility] Last Admin: 10/21/24 21:40 Dose: 10 mg Magnesium Hydroxide (Milk Of Magnesia 30 Ml Oral.Susp) 30 ml PO DAILY PRN PRN Reason: Constipation Pt Own (Lenalidomide (15 Mg)) 1 each PO DAILY [facility] Last Admin: 10/22/24 08:42 Dose: 1 each Omeprazole (Omeprazole 20 Mg Capsule.) 20 mg PO DAILY@0630 [facility] Last Admin: 10/22/24 05:40 Dose: 20 mg Ondansetron HCl (Ondansetron Odt 4 Mg Tab.Rapdis) 4 mg TRANSLINGU Q4H PRN PRN Reason: Nausea and Vomiting Last Admin: 08/28/24 20:33 Dose: 4 mg Senna (Sennosides 8.6 Mg Tablet) 17.2 mg PO DAILY PRN PRN Reason: constipation Sertraline HCl (Sertraline Hcl 50 Mg Tablet) 50 mg PO DAILY [facility] Last Admin: 10/22/24 08:42 Dose: 50 mg Vitamin D (Cholecalciferol (Vitamin D3) 25 Mcg Tablet) 50 mcg PO DAILY [facility] Last Admin: 10/22/24 08:41 Dose: 50 mcg Allergies Allergies Allergy/AdvReac Type Severity Reaction Status Date / Time No Known Allergies Allergy Verified 08/05/24 15:00 [No Known Allergies*] Assessment & Plan Assessment & Plan (1) Schizophrenia: Status: Acute Code(s): F20.9 - Schizophrenia, unspecified (2) Dementia: Status: Acute Code(s): F03.90 - Unspecified dementia, unspecified severity, without behavioral disturbance, psychotic disturbance, mood disturbance, and anxiety Plan The patient is an elderly female with a past history of schizophrenia on Clozaril chronically psychotic who was admitted from the community since she was paranoid against her caregivers. Plan 09/18 continue tx. coordination with oncology Dr. Veloz to resume tx for multiple myeloma while inpt (question of billing issues, resolved). 09/19 continue tx 09/20 continue tx 09/21 continue tx. 09/22 continue tx. 09/23 continue tx. 09/24 continue tx. 09/25 continue tx 09/26 continue tx. VS stable but on low side. 09/27/2024 Continue plan of care patient appears somewhat apathetic 09/29 Next chemo tx (Denosumab infusion) on December [address] Baugh' office. Lenalinomide 15mg po daily for 15 days on and 15 days off. She had last dose on 09/27/2024. Re-start on 10/12/2024. 09/30 continue tx. 10/01 continue tx. 10/02 continue tx. 10/04: Continue current management and treatment plan. 10/05: continue current management and treatment plan. 10/06 continue same treatment waiting for placement 10/07 continue same treatment waiting for placement 10/08 keep same treatment. 10/09 keep same treatment 10/10 keep same treatment 10/11: stable presentation. continue current mgmt. 10/12: as for yesterday. 10/13 continue tx. awaiting placement. She has to re-start Lenalinomide 15mg po daily x 15days. 10/14 called [facility] to bring in Lenalinomide, she reports she will bring today. also, pt denied at snf due to cost of multiple myeloma tx. 10/15 continue tx. 10/16 will check clozapine levels on 10/17 AM. 10/17 continue tx. 10/18 continue tx. Clozapine level pending 10/19 continue tx. Clozapine level still pending 10/20 continue tx. 10/21 pending clozaril levels 10/22 continue tx. Reason for continued inpatient stay Substantial Risk for: inability to function Time Spent With Patient Time: Total time managing care of this patient today ____ minutes.
[2024-10-22 20:00] VITALS: BP 100/52; PULSE 70; RESP 17; TEMP 36.3; O2SAT 98
[2024-10-22] MEDS: Loratadine 10 MG TABLET PO (21:12)
[2024-10-22] MEDS: cloZAPine 100 MG TABLET 300 MG PO (21:12)
[2024-10-23] MEDS: Omeprazole 20 MG CAPSULE.DR PO (06:15)
[2024-10-23] MEDS: Aspirin Enteric Coated 81 MG TABLET.DR PO (08:38)
[2024-10-23] MEDS: LENALIDOMIDE 15 MG 1 EACH PO (08:38)
[2024-10-23] MEDS: Cholecalciferol (Vitamin D3) 25 MCG TABLET 50 MCG PO (08:39)
[2024-10-23] MEDS: cloZAPine 25 MG TABLET PO (08:39)
[2024-10-23] MEDS: Acyclovir 200 MG CAPSULE 400 MG PO (08:39)
[2024-10-23] MEDS: allopurinoL 100 MG TABLET PO (08:39)
[2024-10-23] MEDS: Ferrous Sulfate 324 MG TABLET.DR PO (08:40)
[2024-10-23] MEDS: Sertraline HCL 50 MG TABLET PO (08:40)
[2024-10-23] MEDS: Calcium Carbonate 750 MG TAB.CHEW PO (08:40)
--- NOTE | 2024-10-23 09:31 | PM.PSYDC ---
DS: Providers Provider Date of Service: 10/23/24 Date of admission: 08/06/24 11:41 Date of discharge: 10/23/24 Primary care physician: Gladys Orellana MD Consults: 08/07/24 08:50 Consult to Hospitalist Routine Comment: Consulting Provider: [facility] [place] [facility] Reason For Exam: Nausea, vomiting and diarrhea, more delusional Discharging clinician: Pam Saeed DS: Diagnosis Discharge Diagnosis (1) Schizophrenia: Status: Acute (2) Dementia: Status: Acute DS: Medications Discharge Medications Home Medications: Home Medications ?Medication ?Instructions ?Recorded ?Confirmed albuterol sulfate 90 mcg/actuation 2 puff PO Q4H PRN Dyspnea 04/15/20 08/05/24 aerosol inhaler loperamide 2 mg capsule 2 mg PO DAILY PRN Diarrhea 04/15/20 08/05/24 (Anti-Diarrheal (loperamide)) sennosides 8.6 mg tablet (senna) 2 tab PO DAILY PRN Constipation 04/15/20 08/05/24 denosumab 120 mg/1.7 mL (70 mg/mL) 120 mg subcut Q8W 09/29/22 08/05/24 subcutaneous solution lorazepam 1 mg tablet (Ativan) 1 mg PO DAILY PRN Anxiety 09/29/22 08/05/24 lenalidomide 15 mg capsule 15 mg PO DAILY 06/30/24 08/05/24 (Revlimid) ondansetron 4 mg disintegrating 4 mg PO Q4H PRN Nausea And Vomiting 06/30/24 08/05/24 tablet Previous Rx's ?Medication ?Instructions ?Recorded allopurinol 100 mg tablet 100 mg PO DAILY #90 tabs 02/27/24 ferrous sulfate 324 mg (65 mg 324 mg PO DAILY #90 tabs 05/18/24 iron) tablet,delayed release aspirin 81 mg tablet,delayed 81 mg PO DAILY #90 tabs 05/23/24 release omeprazole 20 mg capsule,delayed 20 mg PO QAM #90 caps 07/23/24 release cholecalciferol (vitamin D3) 25 50 mcg (2 x 25 mcg (1,000 unit)) 10/08/24 mcg (1,000 unit) tablet PO DAILY Non-Formulary Medication 1 ea PO DAILY ##0 10/23/24 acyclovir 200 mg capsule 400 mg (2 x 200 mg) PO DAILY #0 10/23/24 caps cholecalciferol (vitamin D3) 25 50 mcg (2 x 25 mcg (1,000 unit)) 10/23/24 mcg (1,000 unit) tablet PO DAILY #0 tabs clozapine 100 mg tablet 300 mg (3 x 100 mg) PO BEDTIME #0 10/23/24 tabs clozapine 25 mg tablet 25 mg PO BID@0800,1500 #0 tabs 10/23/24 loratadine 10 mg tablet 10 mg PO BEDTIME #0 tabs 10/23/24 ondansetron 4 mg disintegrating 4 mg translingual Q4H PRN Nausea 10/23/24 tablet And Vomiting #0 tabs sertraline 50 mg tablet 50 mg PO DAILY #0 tabs 10/23/24 Mental Status Exam Mental Status Exam Narrative: Appearance: wearing casual clothing, fair hygine, in NAD Behavior: guarded, somewhat dismissive but polite Psychomotor: no retardation or agitation noted Speech: clear, latency noted, minimally spontaneous TP: poverty of thought, thought blocking TC: wanting to be left alone Mood: okay Affect: constricted SI: denies HI: denies VH/AH: internally preoccupied Delusions: guarded suspicious, cap gras delusions Insight/judgment: impaired x 2. memory/cog: alert, not oriented to month situation nor year. Data Data Completed and Pending Completed studies during hospitalization [Text1]: 10/17/24 10/17/24 10/21/24 06:10 08:21 08:08 Absolute Neuts (auto) 1.6 L POC Glucose 91 Clozapine 715 Norclozapine 474 H 10/03/24 16:45 Urine clean catch - Clean Catch Midstream Urine Culture - Final Imaging Diagnostic Imaging Impressions Chest X-Ray 08/05/24 15:34 IMPRESSION: No active pulmonary disease. Electronically signed by: Derrell Marti MD 08/05/2024 03:58 PM [facility] [place] [place] DS: Summary Hospital Course Hospital Course: The patient is a 79-year-old descendant female, mostly Sudanese-speaking, living with her family with a long history of schizophrenia who was brought to the emergency room by her granddaughter reported exacerbation of paranoia and noncompliance with her medications. According to the crisis assessment, the patient had been more disorganized in the last days, paranoid against her granddaughter who is the primary caregiver and accepting only medications given by her son. Also, according to the family, whenever she has a UTI, the patient gets more disorganized and psychotic. She was assessed by the crisis and transferring to this facility for psychiatric stabilization. On the intake interview, the patient was assessed at bedside. She was internally preoccupied, responding to internal stimuli. She was very paranoid and refused to engage in the conversation stating that she does not talk with any other doctors besides her outpatient doctor. She denies active suicidal ideation but she was internally preoccupied and with evident thought process disorder. The patient was a very poor historian. We will try to gather more collateral information since the patient can not provide any useful information. She was able to contract for safety. Past Psychiatric History: The patient carries a diagnosis of schizophrenia, she has previous psychiatric admissions and she had been on Clozaril 200 mg for several years. She follows outpatient services at [facility]. Medical Evaluation Reviewed: Yes HOSPITAL COURSE On the unit, pt was admitted on a CV signed by HCP. She presented as guarded, not aggressive but limited engagement with others. She was mostly self dialoguing. She was not aggressive towards self or others. Clozaril levels were low on admission clozapine 131/norclozapine 104. Clozapine was titrated to 300mg at bedtime and 25mg po BID. Her last clozapine level on 10/17/2024 was 715, norclozapine 474. She was mostly in her room not social nor interacting with peers or staff. She did not show aggression towards self or others. She was eating and sleeping well. She did not show any signs of aggression or disruptive behaviors. No need for restraints. Her BP was on the lower side with SBP in 100's. no orthostatic HOTN and patient denied dizziness. No falls during this hospital stay. She is receiving treatment for multiple myeloma. Next appointment with oncology is 12/12/2024. She receives lenalidomide 15 days on and 15 days off. She started 15 day cycle on 10/15/2024, last day would be 10/29/2024. Then stop for 15 days and resume. Status at Discharge Cognitive/behavioral status at discharge: Pt with constricted affect. No SI/HI. residual self dialoguing and paranoid delusions. No associated agitation nor aggression towards self or others. Sleeping and eating well. Functional status at discharge: uses cane/walker Overall status at discharge: patient is back to baseline Time Spent with Patient Time attestation: Total time managing care of this patient today _40___ minutes. Time spent: Greater than 30 minutes Discharge Plan Discharge Anticipated Discharge Date/Time: 10/23/24 09:20 Patient Disposition: Home, Self-Care Discharge Diagnosis: schizophrenia Referrals: [facility] [Other] - 10/23/24 10:30 am (Transfer to [facility] at 1030.) Dr Veloz [facility] [Other] - 12/12/24 11:00 am (Your next infusion appointment is scheduled for 12/12/24 at 1100 in office at [facility].) Discharge Medications: New clozapine 100 mg Tablet 300 mg PO BEDTIME Qty: 0 0RF acyclovir 200 mg Capsule 400 mg PO DAILY Qty: 0 0RF clozapine 25 mg Tablet 25 mg PO BID@0800,1500 Qty: 0 0RF sertraline 50 mg Tablet 50 mg PO DAILY Qty: 0 0RF loratadine 10 mg Tablet 10 mg PO BEDTIME Qty: 0 0RF ondansetron 4 mg Tablet,Disintegrating 4 mg translingual Q4H PRN (Reason: Nausea And Vomiting) Qty: 0 0RF cholecalciferol (vitamin D3) 25 mcg (1,000 unit) Tablet 50 mcg PO DAILY Qty: 0 0RF Non-Formulary Medication 1 ea PO DAILY Qty: 0 0RF Continued allopurinol 100 mg tablet 100 mg PO DAILY Qty: 90 1RF ferrous sulfate 324 mg (65 mg iron) tablet,delayed release (DR/EC) 324 mg PO DAILY Qty: 90 1RF omeprazole 20 mg capsule,delayed release(DR/EC) 20 mg PO QAM Qty: 90 1RF cholecalciferol (vitamin D3) 25 mcg (1,000 unit) Tablet 50 mcg PO DAILY 0RF albuterol sulfate 90 mcg/actuation HFA aerosol inhaler 2 puff PO Q4H PRN (Reason: Dyspnea) loperamide [Anti-Diarrheal (loperamide)] 2 mg capsule 2 mg PO DAILY PRN (Reason: Diarrhea) sennosides [senna] 8.6 mg tablet 2 tab PO DAILY PRN (Reason: Constipation) aspirin 81 mg tablet,delayed release (DR/EC) 81 mg PO DAILY Qty: 90 0RF lorazepam [Ativan] 1 mg Tablet 1 mg PO DAILY PRN (Reason: Anxiety) denosumab 120 mg/1.7 mL (70 mg/mL) Solution 120 mg SUBCUT Q8W lenalidomide [Revlimid] 15 mg capsule 15 mg PO DAILY Rx Instructions: swallow whole with glass of water; do not open, crush, chew , break, or dissolve. [id number]. 15 days on, 2 weeks off. ondansetron 4 mg tablet,disintegrating 4 mg PO Q4H PRN (Reason: Nausea And Vomiting) Discontinued (DME) Lift recliner chair See Rx Instructions .Route .MEDSUPPLY Qty: 1 0RF Rx Instructions: As directed (DME) Manual Wheelchair See Rx Instructions .Route .MEDSUPPLY Qty: 1 0RF Rx Instructions: As directed Ensure Complete 0.1 gram- 1.18 kcal/mL liquid See Rx Instructions PO .COMPLEX Qty: 15098 0RF Rx Instructions: Take 1 bottle of ensure 3 times a day cetirizine 10 mg tablet 10 mg PO BEDTIME Qty: 90 1RF calcium carbonate [Calcium 600] 600 mg calcium (1,500 mg) Tablet 600 mg PO TID Qty: 90 3RF clozapine 100 mg tablet 200 mg PO BEDTIME acyclovir 400 mg Tablet 400 mg PO DAILY Qty: 90 4RF lenalidomide [Revlimid] 15 mg Capsule 15 mg PO DAILY Qty: 15 0RF Rx Instructions: swallow whole with glass of water; do not open, crush, chew , break, or dissolve. Fifteen days off. [id number]. lenalidomide [Revlimid] 15 mg Capsule 15 mg PO DAILY Qty: 15 3RF Rx Instructions: swallow whole with glass of water; do not open, crush, chew , break, or dissolve. [id number] sulfamethoxazole-trimethoprim [Bactrim DS] 800-160 mg Tablet 1 tab PO 3XW Qty: 100 5RF Zarxio 300 mcg/0.5 mL syringe 300 mcg SUBCUT 2XW Rx Instructions: Twice weekly. Discharge Orders: Discharge Order (Routine); Ordered 10/23/24 Ordered By: Pam Saeed Diet: Regular diet Activity on Discharge: As tolerated Stand Alone Forms: Patient Portal Discharge page Print Language: Sudanese Care Plan Goals: maintain mood no aggression chronic delusions and hallucinations no SI/HI Health Concerns: Follow up with oncology Plan of Treatment: 1. take medications as prescribed 2. go to nearest ED or call 911 in event of emergency Assessment: pt with constricted affect at baseline. chronic and residual auditory hallucinations and paranoid delusions but no aggression towards self or others.
== END 2024-10-23 10:30 | disposition home or self-care (01) | DRG 885 ==
LOC: HO.ED 08-06 09:38 → HO.PGERI 08-06 11:53
PROVIDERS: Emergency Medicine; Psychiatry & Neurology Psychiatry; Admitting Provider Social Worker; Emergency Provider Emergency Medicine Emergency Medical Services; PCP Internal Medicine; Visit Provider Social Worker
DX: F20.9 Schizophrenia, unspecified (principal); F03.90 Unspecified dementia, unspecified severity, without behavioral disturbance, psychotic disturbance, mood disturbance, and anxiety; Z20.822 Contact with and (suspected) exposure to COVID-19; Z87.891 Personal history of nicotine dependence; Z85.79 Personal history of other malignant neoplasms of lymphoid, hematopoietic and related tissues; Z79.82 Long term (current) use of aspirin; Z79.899 Other long term (current) drug therapy
CPT/HCPCS: 0241U; 36415; 71045; 80053; 80061; 80159; 81001; 82607; 82746; 82947; 83036; 83735; 84443; 85025; 85048; 87086; 93005; 99285; S9485

== ENCOUNTER → 2024-08-05 15:34 | Outpatient (BNV) | payer OTHER, SELFPAY | PROVIDERS: Emergency Provider Emergency Medicine Emergency Medical Services; PCP Internal Medicine; Visit Provider Radiology Diagnostic Radiology | DX: R41.82 Altered mental status, unspecified (principal) | CPT/HCPCS: 71045 ==

== ENCOUNTER → 2024-08-05 15:39 | Outpatient (BNV) | payer OTHER, SELFPAY | PROVIDERS: Emergency Provider Emergency Medicine Emergency Medical Services; PCP Internal Medicine; Visit Provider Internal Medicine Cardiovascular Disease | DX: R00.0 Tachycardia, unspecified (principal); I45.19 Other right bundle-branch block; R94.31 Abnormal electrocardiogram [ECG] [EKG] | CPT/HCPCS: 93010 ==

== ENCOUNTER → 2024-08-06 09:59 | Outpatient (BNV) | payer OTHER, SELFPAY | PROVIDERS: Admitting Provider Social Worker; Emergency Provider Emergency Medicine Emergency Medical Services; PCP Internal Medicine; Visit Provider Internal Medicine Cardiovascular Disease | DX: I45.19 Other right bundle-branch block (principal); R94.31 Abnormal electrocardiogram [ECG] [EKG] | CPT/HCPCS: 93010 ==

== ENCOUNTER → 2024-08-06 11:41 | Outpatient (BNV) | payer OTHER, SELFPAY | PROVIDERS: Admitting Provider Social Worker; Emergency Provider Emergency Medicine Emergency Medical Services; PCP Internal Medicine; Visit Provider Psychiatry & Neurology Psychiatry | DX: F20.9 Schizophrenia, unspecified (principal); F03.90 Unspecified dementia, unspecified severity, without behavioral disturbance, psychotic disturbance, mood disturbance, and anxiety | CPT/HCPCS: 99232 ==

== ENCOUNTER → 2024-08-06 11:41 | Outpatient (BNV) | payer OTHER, SELFPAY | PROVIDERS: Admitting Provider Social Worker; Emergency Provider Emergency Medicine Emergency Medical Services; PCP Internal Medicine; Visit Provider Psychiatry & Neurology Psychiatry | DX: F20.9 Schizophrenia, unspecified (principal); F03.90 Unspecified dementia, unspecified severity, without behavioral disturbance, psychotic disturbance, mood disturbance, and anxiety | CPT/HCPCS: 90792; 99231; 99232 ==

== ENCOUNTER 2024-11-17 09:59 | Outpatient (AMB) | payer OTHER, SELFPAY ==
[2024-11-17 10:01] VITALS: BP 98/62; PULSE 108; O2SAT 100; BMI 28.7
--- NOTE | 2024-11-17 10:01 | HO.NEPHOV_ITS ---
Vital Signs 11/17/24 10:01 Height 5 ft 1 in Weight 152 lb BMI 28.7 BP 98/62 Blood Pressure Location Lt brachial Position Sitting Pulse 108 H Pulse Source Pulse Oximeter Pulse Oximetry (%) 100 Oxygen Delivery Method Room Air Intake Visit Reasons: R/s from 11/04/24/ Benjamín Router Machine Operator Required: No Accompanied by: Grand Child Allergies No Known Allergies [No Known Allergies*] Allergy (Verified 11/17/24 10:05) Medication List - Last Reconciled 11/17/24 by Dean Byers MD acyclovir 400 mg (2 x 200 mg) PO DAILY albuterol sulfate 90 mcg/actuation 2 puffs PO Q4H PRN allopurinol 100 mg PO DAILY aspirin 81 mg PO DAILY cholecalciferol (vitamin D3) 50 mcg (2 x 25 mcg (1,000 unit)) PO DAILY clozapine 300 mg (3 x 100 mg) PO BEDTIME clozapine 25 mg PO BID@0800,1500 denosumab 120 mg subcut Q8W ferrous sulfate 324 mg PO DAILY lenalidomide (Revlimid) 15 mg PO DAILY loperamide (Anti-Diarrheal (loperamide)) 2 mg PO DAILY PRN loratadine 10 mg PO BEDTIME lorazepam (Ativan) 1 mg PO DAILY PRN [Non-Formulary Medication 1 ea PO DAILY] omeprazole 20 mg PO QAM ondansetron 4 mg translingual Q4H PRN sennosides (senna) 2 tabs PO DAILY PRN sertraline 50 mg PO DAILY Do you need a note to return to daycare/school/sports/work: No HPI Comments Details: Elderly woman with multiple myeloma and an episode of ELEONORA. According to caregiver patient has been feeling tired. She has been very picky with her food and does not take her supplements. Bactrim DS 3 x week has been added in October 2023 11/17/24 Currently in rehab facility Accompanied by granddaughter. No new issues today [facility] Medical History Chemotherapy-induced fatigue Chemotherapy adverse reaction CKD (chronic kidney disease) Sepsis Tubular adenoma of colon Bilateral hearing loss Schizophrenia Asthma GERD (gastroesophageal reflux disease) Hyperlipidemia Hypertension Surgical History History of total hysterectomy History of lumpectomy Family History Father Coronary artery disease High cholesterol Diabetes mellitus CVD (cardiovascular disease) Mother Alzheimer's disease Brother History of CVA (cerebrovascular accident) Stroke Sister History of CVA (cerebrovascular accident) Stroke Son No problems noted. Sister No problems noted. Sister No problems noted. Sister No problems noted. Sister No problems noted. Sister No problems noted. Brother No problems noted. Brother No problems noted. Brother No problems noted. Brother No problems noted. Brother No problems noted. Brother No problems noted. Other Hypertension Social History Household Members: Family Household Members Other:: granddaughter. Housing: Apartment Are you a primary director of career services to a significant other at home: No Do you presently have visiting nurse or other home services: No Alcohol intake: never Patient Tobacco Use Status: Former Tobacco user e-Cigarette/Vaping Use: Never Used Advance Directives Date on File: 12/15/20 service: No Current occupational status: retired Sexual orientation: Straight/Heterosexual Cognitive needs: No Hearing needs: No Vision needs: Yes Physical Exam Vital Signs: Last Vital Signs Pulse 108 H 11/17/24 10:01 BP 98/62 11/17/24 10:01 Pulse Ox 100 11/17/24 10:01 Oxygen Delivery Method Room Air 11/17/24 10:01 BMI result Body Mass Index 28.7 Comfortable Neck supple no JVD. Lungs entry equal no rales. Heart S1-S2 heard no gallop or rub. Abdomen soft nontender. Neuro alert awake oriented. No asterixis. Extremities no edema. Results Reviewed Nephrology Results: Hgb 9.9 g/dl (12.0-16.0) L 09/13/24 WBC 5.4 X10*3/uL (4.8-10.8) 09/13/24 Plt Count 150 X10*3/uL (160-400) L 09/13/24 Sodium 143 mmol/L (135-145) 09/13/24 Potassium 3.9 mmol/L (3.3-5.1) 09/13/24 Chloride 111 mmol/L (96-108) H 09/13/24 Carbon Dioxide 26 mmol/L (22-29) 09/13/24 BUN 13 mg/dL (9-16) 09/13/24 Creatinine 0.75 mg/dL (0.5-1.4) 09/13/24 Calcium 8.4 mg/dL (8.4-10.2) 09/13/24 Urine Protein Negative mg/dL (Neg-Trace) 10/03/24 Assessment & Plan Assessment & Plan (1) CKD (chronic kidney disease): Code(s): N18.9 - Chronic kidney disease, unspecified Category: Medical Plan: Chronic kidney disease in the setting of multiple myeloma. The could be some age-related loss of glomerular like. Creatinine at baseline Hypokaelmia stands corrected Encouraged to increase p.o. fluid intake (2) Anemia: Code(s): D64.9 - Anemia, unspecified Category: Medical Plan: Anemia setting of multiple myeloma next hemoglobin is reasonably stable She follows with a Dr. Veloz (3) Multiple myeloma: Code(s): C90.00 - Multiple myeloma not having achieved remission Category: Medical Qualifiers: Multiple myeloma remission status: unspecified Qualified Code(s): C90.00 - Multiple myeloma not having achieved remission Plan: She has been treated with Revlimid. She has follow-up appointment with Dr. Veloz (4) Hypertension: Code(s): I10 - Essential (primary) hypertension Category: Medical Plan History of hypertension She is off all meds Today the blood pressure has been rather low. Remains asymptomatic Caregiver will monitor blood pressure at home. Orders: Orders Basic Metabolic Panel 6 Months N18.9 - Chronic kidney disease, unspecified Coding Level of Care Code Est Pt Level 4 (48151) Diagnoses CKD (chronic kidney disease) N18.9 Anemia D64.9 Multiple myeloma C90.00 Multiple myeloma remission status: unspecified Hypertension I10
--- OUTSIDE RECORDS SUMMARY | 2024-11-17 11:13 | XMS_ITS | Clinical Summary ---
Author Organization [employer] [facility] Address [address] [place] [address] Care Team Providers Care Fringing Machine Operator Name Role Phone Unavailable Primary Care Provider Unavailabl e Social History Tobacco Use Types Packs/Day Years Used Date Smoking Tobacco: Never Assessed Comments Unknown Sex and Gender Information Value Date Recorded Sex Assigned at Female 05/15/2022 10:15 AM EDT Legal Sex Female 10:15 AM EDT Gender Identity Female 05/15/2022 10:15 AM EDT Sexual Orientation Choose not to disclose 2021 10:15 AM EDT Plan of Treatment Health Maintenance Due Date Last Done Comments Depression Screening 1945 Alcohol/Substance Use Screening 1959 Tobacco Screening 1959 DTaP/Tdap/Td Vaccines (1 - Tdap) 1966 Pneumococcal Vaccine: 50+ Years (1 of 1 - PCV) 1997 Zoster Vaccines (1 of 2) 1997 RSV Patients and Patients Aged 60 years or older (1 - 1-dose 75+ series) 2022 COVID-19 Vaccine ( - 2023-2 5 season) 2024 Influenza Vaccine (#1) 2024 , 05/12/2015 HIB Vaccines Aged Out No longer eligi ble based on patient's age to complete this topic HPV Vaccines Aged Out No longer eligi ble based on patient's age to complete this topic Hepatitis A Vaccines Aged Out No long er eligible based on patient's age to complete this topic Hepatitis B Vaccines Aged Out No long er eligible based on patient's age to complete this topic IPV Vaccines Aged Out No longer eligi ble based on patient's age to complete this topic Meningococcal Vaccine Aged Out No alexa yousuf eligible based on patient's age to complete this topic RSV under 20 months Aged Out No longe r eligible based on patient's age to complete this topic Rotavirus Vaccines Aged Out No longer eligible based on patient's age to complete this topic
--- OUTSIDE RECORDS SUMMARY | 2024-11-17 11:13 | XMS_ITS | Data Portability ---
Author Organization [employer] [facility] Address [address] [place] [address] Care Team Providers Care Hunter Trapper Name Role Phone RHONDA FRANCO Primary Care Provider [phone] HIM CCA OTHER Assessment Encounter Date Assessment Date Assessment LastModified by Organization Details LastModified Time 03/22/2023 03/22/2023 I provided real -time medical direction via phone for this encounter, and was available for additional phone based assistance as needed. I have reviewed and agree with the Assessment and Plan as documented by the Anesthesiology Tech. Patient/granddau ghter given the opportunity to ask questions. Advised to follow-up with the PCP as soon as possible otherwise if develops CP/severe SOB/turning blue/uncontrolle d n/v/d or black/bloody emesis or stool/ severe AMS/ syncope/ hi fever to call 911- verbalized understanding of instructions [email or web address] Not available 03/22/2023 19:34:22 08/05/2024 08/05/2024 I have reviewed and agree with the assessment and plan as documented by the outsole molder. I provided real-time medical direction for this encounter and was immediately available to provide additional phone-based assistance as needed. History as noted in EMR and by outsole molder. I would add / emphasize: Patient with history of dementia is seen for refusing care from her granddaughter for last several days. Will not take food or medications from her granddaughter believing that the granddaughter is not really her, but an impostor. Granddaughter does not feel comfortable with patient remaining in the home given apparent Capgras delusion and care refusal. Granddaughter requesting patient be transported to the ED which seems very reasonable. pallfather Not available 08/08/2024 02:00:29 Plan of Treatment Reminders Order Date Submit Date Provider Last Modified By Organization Details Last Modified Time Details Appointments None recorded. Lab rapid SARS CoV 2 Ag, QL IA, respiratory specimen 2022 023 [email or web address] 0 Main [facility], [address] [place] [address], [id number] 3 16:48:01 rapid flu (A+B) 2022 023 [email or web address] 0 Main [facility], [address] [place] [address], [phone] 3 16:48:01 Referral None recorded. Procedures None recorded. Surgeries None recorded. Imaging None recorded. Medication Orders cefuroxime axetil 500 mg tablet 2022 023 [facility][id number], [facility] [place], [place], [id number], 3 16:47:04 Tylenol Extra Strength 500 mg tablet 2022 023 [facility] #[id number], [facility] [place], [place], [id number], 3 16:47:04 albuterol sulfate HFA 90 mcg/actuati on aerosol inhaler 2022 023 [facility] #[id number], [facility] [place], [place], [id number], 3 16:47:04 albuterol sulfate 2.5 mg/3 mL (0.083 %) solution for nebulizatio n 2022 023 [email or web address] 0 [facility] #[id number], [facility] [place], [place], [id number], 3 16:48:00 Patient TargetsNo targets recorded. Patient InstructionsNo instructions recorded. Reason for Referral None Reported. Results Created Date Observation Date Name Description Value Unit Range Abnormal Flag Note LastModifiedBy Organization Detail LastModifiedTime 03/22/20 23 03/22/2023 rapid flu (A+B) Flu negati ve Not Available [facility] [address] [place] [address], [phone] 03/22/2023 16:47:19 03/22/20 23 03/22/2023 rapid SARS CoV 2 Ag, QL IA, respi rator y speci men rapid SARS CoV 2 Ag, QL IA, respiratory specimen negati ve Not Available [facility] ed [address] [place] [address], [phone] 03/22/2023 16:47:11 Result Notes None recorded. Medical [...] /min 123 mm[Hg] 64 mm[Hg] Not Available [employer] 3 16:29:51 Date Recorded Respiratory rate Body temperature Oxygen saturation Oxygen saturation in Arterial blood by Pulse oximetry Heart rate Systolic blood pressure Diastolic blood pressure Provider Name and Address Organization Details Last Updated DateTime 5 18 /min 98.2 [degF] 97 % 97 % 96 /min 148 mm[Hg] 82 mm[Hg] Not Available [employer] 5 14:04:34 Social History None recorded. Functional Status None recorded. Mental Status None recorded. Family History Nothing Reported. Medical History No medical history recorded. Gynecological HistoryNo gynecological history recorded. Obstetrics History GPAL:G 0 P 0 0 0 0 Past Encounters Encounter ID Performer Location Encounter Start Date Encounter Closed Date Diagnosis/Indication Diagnosis SNOMED-CT Code Diagnosis ICD10 Code Diagnosis Note [id number] Chasity Morgan MD [facility] [address] [place] [phone] 03/22/2023 16:29:49 03/22/2023 23:31:53 Acute bacterial bronchitis [id number] J20.9 possible pneumonia- Patient would benefit from cxr- note sent to [facility] to contact CP /team re herbie-grand daughter is able to go to the pharmacy today and get prescripti ons. She has had cefuroxime in the past for upper respirator y tract infection. She has used an inhaler before but does not currently have any.Advise d to rest, push p.o. 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 - DOS ON OR AFTER 2022 - DUAL ELIGIBLE - CARE HOME OPTIONS AND ONE CARE (MEDICARE REPLACEMENT/ADV ANTAGE - HMO) Jeanne Younger [id number] Jeanne Younger 08/05/[address] [facility] - DOS ON OR AFTER 2022 - DUAL ELIGIBLE - CARE HOME OPTIONS AND ONE CARE (MEDICARE REPLACEMENT/ADV ANTAGE - HMO) Jeanne Younger [id number] Jeanne Younger Notes Date Note Type Note Provider Name and Address Organization Details Recorded Time 03/22/2023 text/html HPI: Cough and coughing up mucus since 03/15 she has multiple myeloma and weakened immune system? ? ? ..................... ..................... ..................... ..................... ..................... ..................... ............... [facility] Nursing Assessment: Chief Complaints: Cough PMH: Cancer, Hypertension, COPD/Asthma, Other Allergies: No Known Comments: + cough x1 week. Green sputum. Denies shortness of breath. Afebrile. + body aches and chills. Unknown sore throat. No known sick contacts. Taking Mucinex OTC. ..................... ..................... ..................... ..................... ..................... ..................... ............... Anesthesiology Tech Note From Phyllis Gee: Community Anesthesiology Tech Papito Gee CCA1 dispatched to [facility] for a 77 yof C/O a cough. Upon arrival, the pt was sitting up in bed, awake and alert, oriented to her baseline, in no apparent distress. The pt's granddaughter/caretak er stated that the pt started to cough [...] as well. Red flags discussed at length. ..................... ..................... ..................... ..................... ..................... ..................... ............... Disposition: FulfilledSEGMD: As above: Pat now eating [...] odor per grand daughter Chasity Morgan MD [address] [place] [address],[address], [place], [phone], [place] [employer] 03/22/2023 19:34:55 08/05/2024 text/html CRC Nurse Triage Notes (Nancy Serna - RN): Reason For Request: Radha holguin calling in for pt, pt has been refusing care for three days. Will not take food or medications from pt and is stating that Radha is not really her, but someone pretending to be her Denies: Worst Headache of life New onset of vision loss Sudden onset -unilateral weakness/gait disturbance Fall with head strike and altered LOC New onset of Slurred speech or difficulty finding words Sudden Mental status changes Head pain with fever chills and neck pain Seizure activity Head pain not relieved by medication greater than 8 hours Head pain greater than 8 hours -unrelated to falls or injury Head pain with nausea vomiting Dizziness with positional change Sensitive to light Chief Complaints: Altered mental status PMH: Cancer, Hypertension, COPD/Asthma, Dementia (e.g., Alzheimer's Disease), Severe Persistent Mental Illness (SPMI) PMH Reviewed at 08/05/2024 Allergies Reviewed at 08/05/2024: Comments: Press Operator Heavy Duty verified the name//address and phone number. Daughter calling to refuse care. She called caregiver homes and her PCP and mental health provider. She is waiting for call backs. She has a baseline of confusion but is orientated with her daughter and is not currently. She has schizoaffective and dementia. She does not feel she has a UTI as there are not changes in / GI. She has not had any med changes. Pt face is symmetrical, no aphasia, no issues with swallowing. No recent falls or injuries. . Education provided on the response time and the Patient was advised to monitor reported s/s and seek emergency treatment if needed Anesthesiology Tech Organization Information for Amelia Calvin José Miguel [employer] Legal Name: [employer]? Address: [address] [place] [address], Supervisory Historian: Josiah Schmidt MD [facility] No.: [id number] Anesthesiology Tech POC Test Results from Amelia Calvinbowen [facility] Urine Dipstick (14:01:06) Urine leukocytes: ++ VIVIANA Urine nitrites: - NIT Urine urobilinogen: - URO Urine protein: - PRO Urine pH: 5 pH Urine blood: ++ BLO Urine specific gravity: 1.010 SG Urine ketones: + KET Urine bilirubin: - OSITO Urine glucose: - GLU ..................... ..................... ..................... ..................... ..................... ..................... ............... Anesthesiology Tech Note From Calvin Cisneros: Dispatched to the call address for the elderly female with AMS. Pts granddaughter (Radha, Primary Self Pay Collector) advises that for the last 3 days the Pt has not taken care from her when normally she is the only one to care for her. She states the Pt keeps telling her she is not who she says she is. Pt has taken her daily medications and food but only from her son when he is able to come by and help. Radha advises she has spoken to her PCP and healthcare technician assistance and they recommended and [facility] visit. She states that the Pt has not complained of any pain or anything and she has not noticed any foul smelling urine. Pt was found sitting in bed, alert to self only, in no apparent distress, airway open and patent, breathing non labored, able to speak in full sentences, -JVD, -HEENT, skin PWD with good turgor, abd soft non tender/distended, pupils PERRL, +CMSx4, -edema/swelling. Pt was able to provided a urine sample. UA positive for VIVIANA and blood but negative to nitrates. All of Pts movements were quick/rapid and Pt went to hiding under the blankets on the bed whenever she could. Pt was agreeable to an assessment and Radha was able to get her to give a urine sample after some time. [facility] consulted. Pts daughter was advised that this could possibly be an UTI but would need the lab to confirm or it could be her dementia advancing and that it was her decision based on what she thought was best. Radha decided that the Pt going to the ED made the most sense as this is the 3rd day this has been happening and she is the only physician assistant primary care and the Pt is refusing care from her. 911 called on behalf of the Pt per family request. I remained on scene and gave EMS crew update. Pt transported to [facility]. ALL times are approx. ..................... ..................... ..................... ..................... ..................... ..................... ............... [facility] Consulted: Yunior Borjas ..................... ..................... ..................... ..................... ..................... ..................... ............... Disposition: Fulfilled Yunior Borjas MD [address] [facility], [place], [phone], [employer] Group[employer]ASHMIR ACOSTA 08/08/2024 02:00:47 OBGyn Episode No OBEpisode recorded.
--- OUTSIDE RECORDS SUMMARY | 2024-11-17 11:13 | XMS_ITS | Continuity of Care Document ---
Author Organization [facility], [facility] Address [address] [place] [address] Care Team Providers Care Airset Molder Name Role Phone GERA STERLING - 3RD FLOOR OTHER RHONDA FRANCO Primary Care Provider Assessment No assessment recorded. Plan of Treatment Reminders Order Date Submit Date Provider Last Modified By Organization Details Last Modified Time Details Appointments None record ed. Lab None record ed. Referral None record ed. Procedures None record ed. Surgeries None record ed. Imaging None record ed. Medication Orders None record ed. Patient TargetsNo targets recorded. Patient InstructionsNo instructions recorded. Reason for Referral None Reported. Problems Name Problem SNOMED Code Status Onset Date Resolution Date Notes Provider Name and Address Organization Details Recorded Time Multiple myeloma 164428991 Active 2024 Bethany Mir NP [address] , [address], [place], [address], [facility] [facility] 5 09:32:45 Paranoid schizophren ia 51576210 Active 2024 Bethany Mir NP [address] [facility], [address], [place], [address], [facility] [employer] [facility] 5 09:33:02 Seasonal allergy 797583105 Active 2024 Bethany Mir NP [address] , [address], [place], [address], [facility] [employer] 5 09:33:16 Vascular dementia with behavioral disturbance 0234312873337 04 Active 2024 Bethany Mir NP [address] [facility], [address], [place], [address], [facility] [employer] [facility] 5 09:46:13 Chronic gout without tophus 560991594 Active 2024 Bethany Mir NP [address] [facility], [address], [place], [address], [facility] 5 09:53:55 Gastroesoph ageal reflux disease without esophagitis 434327673 Active 2024 Bethany Mir NP [address] [facility], [address], [place], [address], [facility] 5 09:55:38 Coronary arterioscle rosis 17449590 Active 2024 Bethany Mir NP [address] [facility], [address], [place], [address], [facility] 5 10:51:27 Problem Notes None recorded. Medical Equipment None Reported. Allergies No known drug allergies Medications Not known to be on any medication Vitals Date Recorded Body weight Heart rate Respiratory rate Body temperature Oxygen saturation Oxygen saturation in Arterial blood by Pulse oximetry Systolic blood pressure Diastolic blood pressure Provider Name and Address Organization Details Last Updated DateTime 5 17751.8 9 g 72 /min 18 /min 97.6 [degF] 96 % 96 % 122 mm[Hg] 68 mm[Hg] Bethany Mir NP [address] [facility], [address], [place], [address], [employer] 5 12:50:55 Social History Question Answer Notes LastModified by Organization Details LastModified Time Tobacco Smoking Status Former Smoker Bethany Mir NP [address] [facility], [address], [place], [address], [facility] 10/24/2024 09:07:44 Do You Have An Advance Directive? Yes Information not available 10/24/2024 What Is Your Level Of Alcohol Consumption? None Information not available 10/24/2024 What Is Your Code Status? DNR/DNI Information not available 10/24/2024 Where Do You Live? Apartment Lived In Apartment With Granddaughter Information not available 10/24/2024 What Was The Date Of Your Most Recent Tobacco Screening? 10/24/2024 Information not available 10/24/2024 Do You Have An Out Of Hospital DNR? No Information not available 10/24/2024 What Is Your Relationship Status? Unknown Information not available 10/24/2024 How Much Tobacco Do You Smoke? No Information not available 10/24/2024 Do You Use Any Illicit Or Recreational Drugs? No Information not available 10/24/2024 Has Tobacco Cessation Counseling Been Provided? No Information not available 10/24/2024 Do You Or Have You Ever Used Any Other Forms Of Tobacco Or Nicotine? No Information not available 10/24/2024 Sex: Female Functional Status None recorded. Mental Status None recorded. Family History Nothing Reported Notes:N/C Medical History No medical history recorded. Gynecological HistoryNo gynecological history recorded. Obstetrics History GPAL:G 0 P 0 0 0 0 Past Encounters Encounter ID Performer Location Encounter Start Date Encounter Closed Date Diagnosis/Indication Diagnosis SNOMED-CT Code Diagnosis ICD10 Code Diagnosis Note [id number] Bethany Mir NP [address] [address] 10/24/2024 09:05:33 10/27/2024 13:10:08 Paranoid schizophrenia 71854218 F20.0 levels just checked during psych hospital admit and doses adjusted accordingl y, had med noncomplia nce and increased paranoid delusions at home prior to psych admitcloza pine 300 mg po qhs and 25 mg po bidsertral ine 50 mg po qdlorazepm a 1 mg po qd prnhospita l paperwork notes she does not have the capacity to make own decisions and sylvester ayers HCP makes decisionsi nvokecbc with diff monthly for monitoring will need to fill out clozapine rems and register when labs are backgrandd satnam reported she is currently on monthly bloodwork checks for clozapine Seasonal allergy 2047190 04 J30.2 loratidine 10 mg po qhs Multiple myeloma 9584047 06 C90.00 ondansetro n 4m g po q 4 hours prn nauseaacyc lovir 400 mg po qdlenalido mide 15 mg po qd -15 days on and [address] angeles chaney appt 5/30 and sylvester ayers reports she will take her Vascular d ementia with behavioral disturbance 2698219994 45072 F01.B18 pt with hx of dementiain voked with sylvester sorenson as decision makermonit or Osteoporosis 85136995 M8 1.0 ? osteoporos ischolecal ciferol 50 mcg po qddenosuma b 120 mg sc q 8 weeksmonit or Chronic go ut without tophus 607129478 M1A.9XX0 ? if gout or unspecifie d reason for medallopur inol [address] franco and request pmh and recordsmon itor for symptoms Gastroesop hageal reflux disease without esophagitis 679187351 K21.9 omeprazole 20 mg po ammonitor Coronary arteriosclerosis 87298701 I25.10 hx ofaspirin 81 mg po qdmonitor [id number] Damaso Abreu MD [address] [address] 10/26/2024 10:32:40 10/27/2024 13:14:53 Paranoid schizophrenia 78591944 F20.0 see HPIbaselin e paranoid schizophre inge with acute decompensa tion with med non-compli ancefollow ed by psych now onclozapin e 25 mg bid and 300 mg qhsinvoke HCPpsych to eval and followmoni tor sx control Seasonal allergy 8621895 04 J30.2 loratidine 10 mg po qhs continuedm onitor for effect Multiple myeloma 0639663 06 C90.00 continue oncology medscoordi andriy with oncologyf/ u in placemonit or cbc and update oncology with concerns Vascular d ementia with behavioral disturbance 6373140537 63146 F01.B18 see aboveHCP invokedmon itor for behaviorsp sych to follow Chronic go ut without tophus 488978928 M1A.9XX0 ? if gout or unspecifie d reason for medallopur inol [address] q[address] p[address] franco and request pmh and recordsmon itor for symptoms Gastroesop hageal reflux disease without esophagitis 830945363 K21.9 omeprazole 20 mg po qdmonitor for sx relief Coronary arteriosclerosis 30619286 I25.10 carrying dx maintained onasa 81 mg po qdnot on statin or beta blockermon itor sx Asthenia 62131634 R53.1 PT OT eval and treatmonit or fall risk and need for increased support in community [id number] Bethany Mir NP [facility] [address] 10/30/2024 07:50:38 11/03/2024 10:00:40 Paranoid schizophrenia 09253496 F20.0 seems to be doing well since here, however often short with people and will refuse care after a few minutes at times and continues with self dialaugeba seline paranoid schizophre inge with acute decompensa tion with med non-compli ancecontcl ozapine 25 mg bid and 300 mg qhsclozapi ne rems with labs as needed monthly, abs neutrophil count as aboveinvok e HCPpsych to eval and followmoni tor sx control Coronary arteriosclerosis 87419319 I25.10 carrying dx maintained onasa 81 mg po qdnot on statin or beta blockermon itor sx Multiple myeloma 6192088 06 C90.00 continue oncology medscoordi andriy with oncologyal lopurinolf /u in placemonit or cbc and update oncology with concerns Vascular d ementia with behavioral disturbance 0288754797 82911 F01.B18 see aboveHCP invokedmon itor for behaviorsp sych to follow Asthenia 92657149 R53.1 PT OT eval and treatmonit or fall risk and need for increased support in community Gastroesop hageal reflux disease without esophagitis 797235134 K21.9 omeprazole 20 mg po qdmonitor for sx relief Osteoporosis 53601121 M8 1.0 osteoporos ischolecal ciferol 50 mcg po qddenosuma b 120 mg sc q 8 weeksmonit or [id number] VIOLET REYES NP [facility] [address] [address] 11/06/2024 12:14:22 11/12/2024 12:37:18 Paranoid schizophrenia 30864690 F20.0 Still declining care with staff, personal care provided by family.Enc ourage med compliance Psych eval prnContinu e clozapine 25 mg bid and 300 mg qhsLast ANC 11/05 1.03 - repeat in amInvoked HCPmonitor sx control Vascular d ementia with behavioral disturbance 1990232187 41003 F01.B18 see aboveP invokedmon itor for behaviorsp sych to follow Coronary arteriosclerosis 90221551 I25.10 carrying dx maintained onasa 81 mg po qdnot on statin or beta blockermon itor sx, VS Multiple myeloma 8539718 06 C90.00 continue oncology medscoordi andriy with oncologyal lopurinolf /u in placemonit or cbc and update oncology with concerns Asthenia 14079957 R53.1 PT OT eval and treatmonit or fall risk and need for increased support in community Gastroesop hageal reflux disease without esophagitis 802851890 K21.9 omeprazole 20 mg po qdmonitor for sx relief Osteoporosis 48112676 M8 1.0 osteoporos ischolecal ciferol 50 mcg po qddenosuma b 120 mg sc q 8 weeksmonit or [id number] [facility] NP [facility] [address] 11/13/2024 12:50:27 11/17/2024 08:59:32 Paranoid schizophrenia 19509002 F20.0 Still declining care with staff, personal care provided by family.Enc ourage med compliance Psych eval prnContinu eclozapine 25 mg bid and 300 mg qhsLast ANC 11/05 1.03 - repeat in am, slightly better at 1.49 abs neuts on 11/12Invoke d HCPmonitor sx control Vascular d ementia with behavioral disturbance 3895332644 77072 F01.B18 see aboveP invokedmon itor for behaviorsp sych to follow Coronary arteriosclerosis 39454400 I25.10 carrying dx maintained onasa 81 mg po qdnot on statin or beta blockermon itor sx, VS Multiple myeloma 4473273 06 C90.00 continuere vlimid 15 mg po qd x 15 dAYScoordi andriy with oncologyal lopurinolf /u in place, however she didn't go, need to reschedule granddaugh ter resched appt per nsgmonitor cbc and update oncology with concerns Asthenia 04608827 R53.1 PT OT eval and treatmonit or fall risk and need for increased support in community Gastroesop hageal reflux disease without esophagitis 190048983 K21.9 omeprazole 20 mg po qdmonitor for sx relief Osteoporosis 86636252 M8 1.0 osteoporos ischolecal ciferol 50 mcg po qddenosuma b 120 mg sc q 8 weeks in officemon tor Health Concerns Section Related Observation LastModified by Organization Detai ls LastModified Time None Recorded Concern Status LastModified by Organization Details LastModified Time None Recorded Payers Encounter Date Sequence Insurance Name Policy Number Policy Garcia Covered Member ID Garcia Member ID Guarantor Name 11/13/2024 1 [facility] - DOS ON OR AFTER 2022 - MEDICARE [place]VANTAGE [place] (MED[place]ARE REPLACEMENT/ADV ANTAGE - PPO) Jeanne Younger [id number] Jeanne Younger Notes Date Note Type Note Provider Name and Address Organization Details Recorded Time 11/13/2024 text/html Ada is seen for an acute rounding visit. PMH: schizophrenia, multiple myeloma Pt is seen for regarding report she is not receiving oncology medication Revlimid and missed appointment yesterday to ? oncology. Granddaughter was supposed to bring in this med from home and requested she bring Ada to appointment however never came. Nursing reaching out to granddaughter on more than one occassion and she reported she would bring in med this evening and reschedule appt. Abs neuts were on the lower side and repeated this week at 1.49 improving. On exam, Ada is lying in bed in NAD. She is doing well, eating and drinking fair amounts and denies any concerns today and smiles. of note: Pt is a 79 yo f, here for LTC, admitted to [facility] psych inpatient unit for reported exacerbation of paranoia and non compliance with her medications. Her medications were adjusted and seems to be doing much better. Granddaughter is HCP and decision maker, invokedMOLST: DNR/DNI/ okay to transfer to hospital, No dialysis, no art nutrition, okay for IVF Bethany iMr NP [address] [facility], [address], [place], [address], [facility] - [employer] 11/13/2024 13:05:52 OBGyn Episode No OBEpisode recorded.
--- OUTSIDE RECORDS SUMMARY | 2024-11-17 11:13 | XMS_ITS | Encounter Summary ---
Author Organization [facility] Address [address] [facility] [address] [place] [address] Care Team Providers Care Chemical Reclamation Equipment Operator Name Role Phone Unavailable Primary Care Provider Unavailabl e Encounter Details Date Type Department Care Team (Latest Contact Info) Description 05/08/2019 Abstract [place] [facility] Dental, Provider, DDS Social History Tobacco Use Types Packs/Day Years Used Date Smoking Tobacco: Never Assessed Comments Unknown Sex and Gender Information Value Date Recorded Sex Assigned at Female 05/15/2022 10:15 AM EDT Legal Sex Female 10:15 AM EDT Gender Identity Female 05/15/2022 10:15 AM EDT Sexual Orientation Choose not to disclose 2021 10:15 AM EDT documented as of this encounter Plan of Treatment Not on file documented as of this encounter Visit Diagnoses Not on filedocumented in this encounter
--- OUTSIDE RECORDS SUMMARY | 2024-11-17 11:13 | XMS_ITS | Clinical Summary ---
Author Organization [facility] Address [address] [facility] [address] [place] [address] Phone Care Team Providers Care Convention Services Manager Name Role Phone Rupert Orellana MD Primary Care Provider [phone] Allergies No known active allergies Medications Omeprazole [...] 07/08/2019 Essential hypertension 07/08/2019 Hyperlipidemia 07/08/2019 Immunizations Immunization Administration Dates Next Due Influenza Split High [...] Due Date Last Done Comments Pneumococcal Vaccine: 50+ Years (1 of 2 - PCV) 1964 Influenza Vaccine (Season Ended) 2025 04/24/2019, 05/12/2015 Hepatitis B Vaccine Aged Out No longe r eligible based on patient's age to complete this topic Insurance [facility] ANIKET LUCIO [id number] [facility] ([id number]) Care Teams Convention Services Manager Relationship Specialty Start Date End Date Rupert Orellana MD [address] [facility] [place] [address] PCP - General 05/20/19
== END 2024-11-17 10:24 | disposition home or self-care (01) ==
LOC: HO.HKA 10:00
PROVIDERS: Visit Provider Internal Medicine Hypertension Specialist
DX: I12.9 Hypertensive chronic kidney disease with stage 1 through stage 4 chronic kidney disease, or unspecified chronic kidney disease (principal); N18.9 Chronic kidney disease, unspecified; D63.1 Anemia in chronic kidney disease; C90.00 Multiple myeloma not having achieved remission
CPT/HCPCS: 99214

== ENCOUNTER → 2024-11-17 09:59 | Outpatient (BNVA) | payer OTHER, SELFPAY | PROVIDERS: Visit Provider Internal Medicine Hypertension Specialist | DX: I12.9 Hypertensive chronic kidney disease with stage 1 through stage 4 chronic kidney disease, or unspecified chronic kidney disease (principal); N18.9 Chronic kidney disease, unspecified; D64.9 Anemia, unspecified; C90.00 Multiple myeloma not having achieved remission | CPT/HCPCS: 99212 ==

== ENCOUNTER 2025-05-28 13:37 | Outpatient (AMB) | payer OTHER, SELFPAY ==
--- NOTE | 2025-05-28 13:43 | HO.NEPHOV ---
Vital Signs 05/28/25 13:46 Height 5 ft 1 in BP 108/74 Blood Pressure Location Rt brachial Position Sitting Pulse 111 H Pulse Source Pulse Oximeter Pulse Oximetry (%) 99 Oxygen Delivery Method Room Air Intake Visit Reasons: 6 mo FU Trust Advisor Required: No Trust Advisor Services: Trust Advisor Offered & Declined (COOLER OPERATOR will translate ) Accompanied by: COOLER OPERATOR Allergies Penicillins Allergy (Verified 05/28/25 13:45) Unknown Medication List - Last Reconciled 05/28/25 by Dean Byers MD albuterol sulfate 90 mcg/actuation 2 puffs PO Q4H PRN allopurinol 100 mg PO DAILY aspirin 81 mg PO DAILY bisacodyl 10 mg IN DAILY PRN cholecalciferol (vitamin D3) 50 mcg PO 2XD clozapine 300 mg (3 x 100 mg) PO BEDTIME clozapine 25 mg PO BID@0800,1500 denosumab 120 mg subcut Q8W ferrous sulfate 324 mg PO DAILY lenalidomide (Revlimid) 15 mg PO DAILY loperamide (Anti-Diarrheal (loperamide)) 2 mg PO DAILY PRN loratadine 10 mg PO BEDTIME lorazepam (Ativan) 1 mg PO DAILY PRN [Non-Formulary Medication 1 ea PO DAILY] omeprazole 20 mg PO QAM ondansetron 4 mg translingual Q4H PRN sennosides (senna) 2 tabs PO DAILY PRN sertraline 50 mg PO DAILY HPI Comments Details: Elderly woman with multiple myeloma and an episode of ELEONORA. According to caregiver patient has been feeling tired. She has been very picky with her food and does not take her supplements. Bactrim DS 3 x week has been added in October 2023 11/17/24 Currently in rehab facility Accompanied by granddaughter. No new issues today 05/28/25 The patient is a 79-year-old female presenting for a follow-up on her multiple myeloma treatment and renal function assessment. The patient has been receiving treatment for multiple myeloma with Revlimid, which is noted to be ongoing. Her renal function is stable with no reported changes, and she is currently residing in a rehabilitation facility. [facility] Medical History Chemotherapy-induced fatigue Chemotherapy adverse reaction CKD (chronic kidney disease) Sepsis Tubular adenoma of colon Bilateral hearing loss Schizophrenia Asthma GERD (gastroesophageal reflux disease) Hyperlipidemia Hypertension Surgical History History of total hysterectomy History of lumpectomy Family History Father Coronary artery disease High cholesterol Diabetes mellitus CVD (cardiovascular disease) Mother Alzheimer's disease Brother History of CVA (cerebrovascular accident) Stroke Sister History of CVA (cerebrovascular accident) Stroke Son No problems noted. Sister No problems noted. Sister No problems noted. Sister No problems noted. Sister No problems noted. Sister No problems noted. Brother No problems noted. Brother No problems noted. Brother No problems noted. Brother No problems noted. Brother No problems noted. Brother No problems noted. Other Hypertension Social History Household Members: Family Household Members Other:: granddaughter. Housing: Apartment Are you a primary pet care attendant to a significant other at home: No Do you presently have visiting nurse or other home services: No Alcohol intake: never Patient Tobacco Use Status: Former Tobacco user e-Cigarette/Vaping Use: Never Used Advance Directives Date on File: 12/15/20 service: No Current occupational status: retired Sexual orientation: Straight/Heterosexual Cognitive needs: No Hearing needs: No Vision needs: Yes Physical Exam Vital Signs: Last Vital Signs Pulse 111 H 05/28/25 13:46 Pulse Ox 99 05/28/25 13:46 Oxygen Delivery Method Room Air 05/28/25 13:46 Comfortable Neck supple no JVD. Lungs entry equal no rales. Heart S1-S2 heard no gallop or rub. Abdomen soft nontender. Neuro alert awake oriented. No asterixis. Extremities no edema. Results Reviewed Nephrology Results: Hgb, (12.0-16.0) 10.8 g/dl L 03/26/25 WBC, (4.8-10.8) 4.7 X10*3/uL L 03/26/25 Plt Count, (160-400) 172 X10*3/uL 03/26/25 Sodium, (135-145) 144 mmol/L 03/26/25 Potassium, (3.3-5.1) 3.8 mmol/L 03/26/25 Chloride, (96-108) 110 mmol/L H 03/26/25 Carbon Dioxide, (22-29) 26 mmol/L 03/26/25 BUN, (9-16) 12 mg/dL 03/26/25 Creatinine, (0.5-1.4) 1.06 mg/dL 03/26/25 Calcium, (8.4-10.2) 8.7 mg/dL 03/26/25 Urine Protein, (Neg-Trace) Negative mg/dL 10/03/24 Assessment & Plan Assessment & Plan (1) CKD (chronic kidney disease): Code(s): N18.9 - Chronic kidney disease, unspecified Category: Medical Plan: Chronic kidney disease in the setting of multiple myeloma. The could be some age-related loss of glomerular like. Creatinine at baseline Hypokaelmia stands corrected Encouraged to increase p.o. fluid intake (2) Anemia: Code(s): D64.9 - Anemia, unspecified Category: Medical Plan: Anemia setting of multiple myeloma next hemoglobin is reasonably stable She follows with a Dr. Veloz (3) Multiple myeloma: Code(s): C90.00 - Multiple myeloma not having achieved remission Category: Medical Qualifiers: Multiple myeloma remission status: unspecified Qualified Code(s): C90.00 - Multiple myeloma not having achieved remission Plan: She has been treated with Revlimid. She has follow-up appointment with Dr. Veloz (4) Hypertension: Code(s): I10 - Essential (primary) hypertension Category: Medical Plan History of hypertension She is off all meds Today the blood pressure is acceptable Remains asymptomatic Caregiver will monitor blood pressure at home. Coding Level of Care Code Est Pt Level 4 (47664) Diagnoses CKD (chronic kidney disease) N18.9 Anemia D64.9 Multiple myeloma C90.00 Multiple myeloma remission status: unspecified Hypertension I10
[2025-05-28 13:46] VITALS: BP 108/74; PULSE 111; O2SAT 99
--- OUTSIDE RECORDS SUMMARY | 2025-05-28 16:59 | XMS_ITS | Encounter Summary ---
Author Organization [employer] Address [address] [place] [address] Care Team Providers Care Director Corporate Name Role Phone Damaso Abreu MD Primary Care Provider [phone] Encounter Details Date Type Department Care Team (Late st Contact Info) Description 10/24/2024 Lab Requisition [facility] - Main Lab [address] [facility] [place] [address] Damaso Abreu MD [address] [place] [address] [address], [address] Essential (primary) hypertension; Unspecified dementia, unspecified severity, without behavioral disturbance, psychotic disturbance, mood disturbance, and anxiety (CMS/HCC V24, CMS/HCC V28); Schizophrenia, unspecified (CMS/HCC V24, CMS/HCC V28); Multiple myeloma not having achieved remission (CMS/HCC V24, CMS/HCC V28) Social History Tobacco Use Types Packs/Day Years Used Date Smoking Tobacco: Never Assessed Comments Unknown Sex and Gender Information Value Date Recorded Sex Assigned at Not on file Legal Sex Female 10:35 AM EDT Gender Identity Not on file Sexual Orientation Not on file documented as of this encounter Plan of Treatment Not on file documented as of this encounter Procedures Procedure Name Priority Date/Time Associated Diagnosis Comments LIPID PANEL WITH REFLEX TO DIRECT LDL Routine 10/24/2024 8:01 AM EDT Essential (primary) hypertension Unspecified dementia, unspecified severity, without behavioral disturbance, psychotic disturbance, mood disturbance, and anxiety (CMS/HCC V24, CMS/HCC V28) Schizophrenia, unspecified (CMS/HCC V24, CMS/HCC V28) Multiple myeloma not having achieved remission (CMS/HCC V24, CMS/HCC V28) CBC WITH AUTO DIFFERENTIAL Routine 10/24/2024 8:01 AM EDT Essential (primary) hypertension Unspecified dementia, unspecified severity, without behavioral disturbance, psychotic disturbance, mood disturbance, and anxiety (CMS/HCC V24, CMS/HCC V28) Schizophrenia, unspecified (CMS/HCC V24, CMS/HCC V28) Multiple myeloma not having achieved remission (CMS/HCC V24, CMS/HCC V28) CBC AND DIFFERENTIAL Routine 10/24/2024 8:01 AM EDT Essential (primary) hypertension Unspecified dementia, unspecified severity, without behavioral disturbance, psychotic disturbance, mood disturbance, and anxiety (CMS/HCC V24, CMS/HCC V28) Schizophrenia, unspecified (CMS/HCC V24, CMS/HCC V28) Multiple myeloma not having achieved remission (CMS/HCC V24, CMS/HCC V28) HEMOGLOBIN A1C Routine 10/24/2024 8:01 AM EDT Essential (primary) hypertension Unspecified dementia, unspecified severity, without behavioral disturbance, psychotic disturbance, mood disturbance, and anxiety (CMS/HCC V24, CMS/HCC V28) Schizophrenia, unspecified (CMS/HCC V24, CMS/HCC V28) Multiple myeloma not having achieved remission (CMS/HCC V24, CMS/HCC V28) COMPREHENSIVE METABOLIC PANEL Routine 10/24/2024 8:01 AM EDT Essential (primary) hypertension Unspecified dementia, unspecified severity, without behavioral disturbance, psychotic disturbance, mood disturbance, and anxiety (CMS/HCC V24, CMS/HCC V28) Schizophrenia, unspecified (CMS/HCC V24, CMS/HCC V28) Multiple myeloma not having achieved remission (CMS/HCC V24, CMS/HCC V28) documented in this encounter Results * (ABNORMAL) CBC auto differential (10/24/2024 8:01 AM EDT) [facility] WBC 3.9(L) 4.8 - 10.8 K/[facility] LAB HEMETOLOGY METHOD 10/24/2024 10:56 AM EDT [facility] RBC 3.40(L) 3.80 - 4.80 /[facility] LAB HEMETOLOGY METHOD 10/24/2024 10:56 AM [facility] Hemoglobin 10.0(L) 11.5 - 16.0 g/dL LAB HEMETOLOGY METHOD 10/24/2024 10:56 AM [facility] Hematocrit 33.2(L) 35.0 - 47.0 % LAB HEMETOLOGY METHOD 10/24/2024 10:56 AM [facility] MCV 97.9 79.0 - 98.0 FL LAB HEMETOLOGY METHOD 10/24/2024 10:56 AM [facility] LAB MCH 29.5 27.0 - 32.0 pcg LAB HEMETOLOGY METHOD 10/24/2024 10:56 AM [facility] LAB MCHC 30.1(L) 32.0 - 37.0 g/dL LAB HEMETOLOGY METHOD 10/24/2024 10:56 AM [facility] RDW 15.4(H) 11.0 - 15.0 % LAB HEMETOLOGY METHOD 10/24/2024 10:56 AM [facility] Platelets 131 130 - 400 K/mcL LAB HEMETOLOGY METHOD 10/24/2024 10:56 AM [facility] MPV 11.8(H) 7.0 - 11.0 FL LAB HEMETOLOGY METHOD 10/24/2024 10:56 AM [facility] NRBC 0.0 <1.0 % LAB HEMETOLOGY METHOD 10/24/2024 10:56 AM [facility] NRBC Absolute 0.00 <0.10 K/mcL LAB HEMETOLOGY METHOD 10/24/2024 10:56 AM [facility] Neutrophils Relative 64.6 % LAB HEMETOLOGY METHOD 10/24/2024 10:56 AM [facility] Lymphocytes Relative 18.8 % LAB HEMETOLOGY METHOD 10/24/2024 10:56 AM [facility] Monocytes Relative 8.0 % LAB HEMETOLOGY METHOD 10/24/2024 10:56 AM [facility] Eosinophils Relative 7.0 % LAB HEMETOLOGY METHOD 10/24/2024 10:56 AM [facility] Basophils Relative 0.8 % LAB HEMETOLOGY METHOD 10/24/2024 10:56 AM [facility] Immature Granulocytes Relative 0.8 % LAB HEMETOLOGY METHOD 10/24/2024 10:56 AM [facility] Neutrophils Absolute 2.51 1.50 - 7.00 K/mcL LAB HEMETOLOGY METHOD 10/24/2024 10:56 AM [facility] Lymphocytes Absolute 0.73(L) 1.00 - 5.00 K/mcL LAB HEMETOLOGY METHOD 10/24/2024 10:56 AM [facility] Monocytes Absolute 0.31 0.20 - 1.00 K/mcL LAB HEMETOLOGY METHOD 10/24/2024 10:56 AM [facility] Eosinophils Absolute 0.27 0.00 - 0.50 K/mcL LAB HEMETOLOGY METHOD 10/24/2024 10:56 AM [facility] Basophils Absolute 0.03 0.00 - 0.20 K/mcL LAB HEMETOLOGY METHOD 10/24/2024 10:56 AM [facility] Immature Granulocytes Absolute 0.03 0.00 - 0.03 K/mcL LAB HEMETOLOGY METHOD 10/24/2024 10:56 AM [facility] Blood Venous blood specimen / Unknown Venipuncture / Unknown 10/24/2024 8:01 AM EDT 10/24/2024 10:42 AM EDT us Damaso Abreu MD LAB BLOOD ORDERABLES Final Resul t Performing Organization Address [facility]/ZIP Co de Phone Number [facility] [address] [place] [address], [place] [phone] * Hemoglobin A1c (10/24/2024 8:01 AM EDT) Pathologist [facility] Hemoglobin A1C 4.8 <6.5 % LAB CHEMISTRY METHOD 10/24/2024 8:43 PM EDT [facility] Mean Bld Glu Estim. 91 mg/dL LAB CHEMISTRY METHOD 10/24/2024 8:43 PM EDT [facility] Blood Venous blood specimen / Unknown Venipuncture / Unknown 10/24/2024 8:01 AM EDT 10/24/2024 10:42 AM EDT Damaso Abreu MD LAB BLOOD ORDERABLES Final Resul t Performing Organization Address [facility]/ZIP Co de Phone Number [facility] [address] [place] [address], [place] [phone] * (ABNORMAL) Lipid panel with reflex to direct LDL (10/24/2024 8:01 AM EDT) [facility] Cholesterol 215(H) 0 - 200 mg/dL LAB CHEMISTRY METHOD 10/24/2024 11:19 AM EDT [facility] Triglycerides 149 0 - 150 mg/dL LAB CHEMISTRY METHOD 10/24/2024 11:19 AM EDT [facility] HDL 58 >=40 mg/dL LAB CHEMISTRY METHOD 10/24/2024 11:19 AM EDT [facility] LDL Calculated 127(H) 0 - 100 mg/dL LAB CHEMISTRY METHOD 10/24/2024 11:19 AM EDT [facility] VLDL Cholesterol Christian 29.8 mg/dL LAB CHEMISTRY METHOD 10/24/2024 11:19 AM EDT [facility] Non HDL Chol. (LDL+VLDL) 157(H) <145 mg/dL LAB CHEMISTRY METHOD 10/24/2024 11:19 AM [facility] Chol/HDL Ratio 3.7 0.0 - 4.4 LAB CHEMISTRY METHOD 10/24/2024 11:19 AM [facility] Blood Venous blood specimen / Unknown Venipuncture / Unknown 10/24/2024 8:01 AM EDT 10/24/2024 10:42 AM EDT us Damaso Abreu MD LAB BLOOD ORDERABLES Final Resul t [facility] [address] [place] [address], * (ABNORMAL) Comprehensive metabolic panel (10/24/2024 8:01 AM EDT) Sodium 142 133 - 145 mmol/L LAB CHEMISTRY METHOD 10/24/2024 11:19 AM [facility] Potassium 3.7 3.5 - 5.5 mmol/L LAB CHEMISTRY METHOD 10/24/2024 11:19 AM [facility] Chloride 107 96 - 110 mmol/L LAB CHEMISTRY METHOD 10/24/2024 11:19 AM [facility] CO2 28 21 - 32 mmol/L LAB CHEMISTRY METHOD 10/24/2024 11:19 AM [facility] Anion Gap 7 3 - 11 LAB CHEMISTRY METHOD 10/24/2024 11:19 AM [facility] Glucose 107(H) 70 - 100 mg/dL LAB CHEMISTRY METHOD 10/24/2024 11:19 AM [facility] BUN 17 5 - 25 mg/dL LAB CHEMISTRY METHOD 10/24/2024 11:19 AM [facility] Creatinine 0.95 0.50 - 1.10 mg/dL LAB CHEMISTRY METHOD 10/24/2024 11:19 AM [facility] eGFR 62 >=60 mL/min/1. 73m2 LAB CHEMISTRY METHOD 10/24/2024 11:19 AM [facility] Comment:Calculation based on the Chronic Kidney Disease Epidemiology Collaboration (CKD-EPI) equation refit without adjustment for race. BUN/Creatinine Ratio 17.9 LAB CHEMISTRY METHOD 10/24/2024 11:19 AM [facility] Calcium 8.1(L) 8.5 - 10.5 mg/dL LAB CHEMISTRY METHOD 10/24/2024 11:19 AM [facility] AST (SGOT) 17 10 - 42 unit/L LAB CHEMISTRY METHOD 10/24/2024 11:19 AM [facility] ALT (SGPT) 25 10 - 60 unit/L LAB CHEMISTRY METHOD 10/24/2024 11:19 AM [facility] Alkaline Phosphatase 82 42 - 121 unit/L LAB CHEMISTRY METHOD 10/24/2024 11:19 AM [facility] Total Protein 6.1 6.0 - 8.0 g/dL LAB CHEMISTRY METHOD 10/24/2024 11:19 AM [facility] Albumin 2.9(L) 3.2 - 5.0 g/dL LAB CHEMISTRY METHOD 10/24/2024 11:19 AM [facility] Total Bilirubin 0.3 0.0 - 1.4 mg/dL LAB CHEMISTRY METHOD 10/24/2024 11:19 AM [facility] Blood Venous blood specimen / Unknown Venipuncture / Unknown 10/24/2024 8:01 AM EDT 10/24/2024 10:42 AM EDT us Damaso Abreu MD LAB BLOOD ORDERABLES Final Resul t [facility] [address] [place] [address], documented in this encounter Visit Diagnoses Diagnosis Essential (primary) hypertension Unspecified essential hypertension Unspecified dementia, unspecified severity, without behavioral disturbance, psychotic disturbance, mood disturbance, and anxiety ([facility] V24, [facility] V28) Schizophrenia, unspecified ([facility] V24, [facility] V28) Multiple myeloma not having achieved remission ([facility] V24, [facility] V28) documented in this encounter Care Teams Director Corporate Relationship Specialty Start Date End Date Damaso Abreu MD [address] [place] [phone] PCP - General Family Medicine 10/24/24 documented as of this encounter
--- OUTSIDE RECORDS SUMMARY | 2025-05-28 16:59 | XMS_ITS | Clinical Summary ---
Author Organization [facility] Address [address] [facility] [address] [place] [address] Phone Care Team Providers Care Field Crop Grower Name Role Phone Rupert Orellana MD Primary Care Provider [phone] Allergies No known active allergies Medications Omeprazole [...] (one) time each day Take whole with water. Do not break, chew, or open. Active acyclovir [...] of 2 - PCV) 1966 Influenza Vaccine (#1) 2025 9, 05/12/2015 Hepatitis B Vaccine Aged Out No longe r eligible based on patient's age to complete this topic Insurance [facility] ([id number]) Care Teams Field Crop Grower Relationship Specialty Start Date End Date Rupert Orellana MD PCP - General 05/20/19
--- OUTSIDE RECORDS SUMMARY | 2025-05-28 16:59 | XMS_ITS | Data Portability ---
Author Organization [facility] Address [address] [place] [address] Care Team Providers Care Set Key Driver Name Role Phone ANGLEREGINARHONDA Primary Care Provider HIM CCA OTHER Assessment Encounter Date Assessment Date Assessment LastModified by Organization Details LastModified Time 03/22/2023 03/22/2023 I provided real -time medical direction via phone for this encounter, and was available for additional phone based assistance as needed. I have reviewed and agree with the Assessment and Plan as documented by the Leather Currier. Patient/granddau ghter given the opportunity to ask questions. Advised to follow-up with the PCP as soon as possible otherwise if develops CP/severe SOB/turning blue/uncontrolle d n/v/d or black/bloody emesis or stool/ severe AMS/ syncope/ hi fever to call 911- verbalized understanding of instructions [email or web address] Not available 03/22/2023 19:34:22 08/05/2024 08/05/2024 I have reviewed and agree with the assessment and plan as documented by the custom frame assembler. I provided real-time medical direction for this encounter and was immediately available to provide additional phone-based assistance as needed. History as noted in EMR and by custom frame assembler. I would add / emphasize: Patient with [...] respiratory specimen 2022 023 [email or web address] 0 Main [facility], [address] [place] [address], [phone] 3 16:48:01 rapid flu (A+B) 2022 023 [email or web address] 0 [facility], [address] [place] [address], [phone] 3 16:48:01 Referral None recorded. Procedures None recorded. Surgeries None recorded. Imaging None recorded. Medication Orders cefuroxime axetil 500 mg tablet 2022 023 [id number], [address] [place], [place], [id number], 3 16:47:04 Tylenol Extra Strength 500 mg tablet 2022 023 [facility] #[id number], [address] [place], [place], [id number], 3 16:47:04 albuterol sulfate HFA 90 mcg/actuati on aerosol inhaler 2022 023 [facility] #[id number], [address] [place], [place], [id number], 3 16:47:04 albuterol sulfate 2.5 mg/3 mL (0.083 %) solution for nebulizatio n 2022 023 [email or web address] 0 [facility] #[id number], [address] [place], [place], [id number], 3 16:48:00 Patient TargetsNo targets recorded. Patient InstructionsNo instructions recorded. Reason for Referral None Reported. Results Created Date Observation Date Name Description Value Unit Range Abnormal Flag Note LastModifiedBy Organization Detail LastModifiedTime 03/22/2003/22/2023 rapid flu (A+B) Flu negati ve Not Available Main - [facility] ed [address] [place], [address] 03/22/2023 16:47:19 03/22/20 23 03/22/2023 rapid SARS CoV 2 Ag, QL IA, respi rator y speci men rapid SARS CoV 2 Ag, QL IA, respiratory specimen negati ve Not Available [facility] - [facility] ed [address] [place] [address], [phone] 03/22/2023 16:47:11 Result Notes None recorded. Medical [...] Vitals Date Recorded Respiratory rate Body temperature Oxygen saturation Oxygen saturation in Arterial blood by Pulse oximetry Heart rate Systolic And Diastolic Provider Name and Address Organization Details Last Updated DateTime 5 18 /min 98.2 [degF] 97 % 97 % 96 /min 148/82 mm[Hg] Not Available [facility] - production 5 14:04:34 Date Recorded Respiratory rate Body temperature Heart rate Systolic And Diastolic Provider Name and Address Organization Details Last Updated DateTime 03/22/2023 20 /min 97.7 [degF] 66 /min 123/64 mm[Hg] Not Available [facility] - production 3 [...] Diagnosis SNOMED-CT Code Diagnosis ICD10 Code Diagnosis IMO Codes Diagnosis Note [id number] Chasity Morgan MD Main - [facility] [address] [place] [phone] 03/22/2023 16:29:49 03/22/2023 23:31:53 Acute bacterial bronchitis 269347737 J20.9 possible pneumonia- Patient would benefit from cxr- note sent to [facility] to contact CP /team re herbie-grand daughter [...] assist the patient with same and will pick and shovel man the prescripti ons this afternoon [id number] Yunior Borjas MD Main - [facility] [address] [place] [phone] 08/05/2024 14:04:31 08/08/2024 12:40:53 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 Concerns Section Related Observation LastModified by Organization Detai ls LastModified Time None Recorded Concern Status LastModified by Organization Details LastModified Time None Recorded Advance Directives Directive None Recorded Payers Insurance Date Sequence Insurance Name Policy Number Policy Garcia Covered Member ID Garcia Member ID Guarantor Name 08/05/2024 1 [facility] - DOS ON OR AFTER 2022 - DUAL ELIGIBLE - [facility] [employer] AND ONE [employer] (MEDICARE REPLACEMENT/ADV ANTAGE - HMO) Jeanne Younger [id number] Jeanne Younger Notes Date Note Type Note Provider Name and Address Organization Details Recorded Time 03/22/2023 text/html ROS as noted in the HPI HPI: Cough and coughing up mucus since 03/15 she has multiple myeloma and weakened immune system ..................... ..................... ..................... ..................... ..................... ..................... ............... [facility] Nursing Assessment: Chief Complaints: Cough PMH: Cancer, Hypertension, COPD/Asthma, Other Allergies: No Known Comments: + cough x1 week. Green sputum. Denies shortness of breath. Afebrile. + body aches and chills. Unknown sore throat. No known sick contacts. Taking Mucinex OTC. ..................... ..................... ..................... ..................... ..................... ..................... ............... Leather Currier Note From Phyllis Gee: Community Leather Currier Papito Gee CCA1 dispatched to [facility] for a 77 yof C/O [...] odor per grand daughter Chasity Morgan MD [address] [place] [address],[address], [place], [address], [employer] 03/22/2023 19:34:55 08/05/2024 text/html [facility] Nurse Triage Notes (Nancy Serna - RN): [...] Mental Illness (SPMI) PMH Reviewed at 08/05/2024 - : Allergies Reviewed at 08/05/2024: Comments: Exhauster verified the name//address and phone number. Daughter [...] s/s and seek emergency treatment if needed Leather Currier Organization Information for Calvin Cisneros Business Legal Name: [employer]. Address: [address] [place] [address], Plant Protection Superintendent: Josiah Schmidt MD IA No.: [id number] Leather Currier POC Test Results from Calvin [facility]ner[facility] Urine Dipstick (14:01:06) Urine leukocytes: ++ VIVIANA Urine nitrites: - NIT Urine urobilinogen: - URO Urine protein: - PRO Urine pH: 5 pH Urine blood: ++ BLO Urine specific gravity: 1.010 SG Urine ketones: + KET Urine bilirubin: - OSITO Urine glucose: - GLU ..................... ..................... ..................... ..................... ..................... ..................... ............... Leather Currier Note From Calvin Cisneros: Dispatched to the call address for the elderly female with AMS. Pts granddaughter (Radha, Primary Manager Science) advises that for the last 3 days [...] she has spoken to her PCP and manager intensive care assistance and they recommended and [facility] visit. [...] give a urine sample after some time. [facility] consulted. Pts daughter was advised that this [...] been happening and she is the only day care worker and the Pt is refusing care from her. 911 called on behalf of the Pt per family request. I remained on scene and gave EMS crew update. Pt transported to [facility]. ALL times are approx. ..................... ..................... ..................... ..................... ..................... ..................... ............... [facility] Consulted: Yunior Borjas ..................... ..................... ..................... ..................... ..................... ..................... ............... Disposition: Fulfilled Yunior Borjas MD [address] [facility] [facility], [place], [address], [facility] 08/08/2024 02:00:47 OBGyn Episode No OBEpisode recorded.
--- OUTSIDE RECORDS SUMMARY | 2025-05-28 16:59 | XMS_ITS | Clinical Summary ---
Author Organization [employer] Address [address] [facility] [address] [place] [address] Care Team Providers Care Washcoat Wiper Name Role Phone Unavailable Primary Care Provider [...] - 1-dose 75+ series) 2022 COVID-19 Vaccine (1 - 2024-2 6 season) 2025 Influenza Vaccine (#1) 2025 05/12/2015 HIB Vaccines Aged Out No longer [...] patient's age to complete this topic Meningococcal B Vaccine Aged Out No l onger eligible based on patient's age to complete this topic Meningococcal Vaccine Aged Out No alxea yousuf eligible based on patient's age to complete this topic RSV under 20 months Aged Out No longe r eligible based on patient's age to complete this topic Rotavirus Vaccines Aged Out No longer eligible based on patient's age to complete this topic
--- OUTSIDE RECORDS SUMMARY | 2025-05-28 16:59 | XMS_ITS | Data Portability ---
Author Organization [facility], Main Office Address [address], [address] [place] [address] Care Team Providers Care Senior Environmental Consultant Name Role Phone GERA WEI - 3RD FLOOR OTHER RHONDA FRANCO Primary Care Provider [phone] Assessment Encounter Date Assessment Date Assessment LastModified by Organization Details LastModified Time 12/29/2024 12/29/2024 Spent 30 reviewing records, seeing pt, consulting with staff and documenting [place] Not available 02/02/2025 01:17:10 Plan of Treatment Reminders Order Date Submit [...] Address Organization Details Recorded Time Multiple myeloma 262364456 Active 2024 Bethany Mir NP [address] [facility], [address], [place], [address], [facility] 5 09:32:45 Paranoid schizophren ia 85838328 Active 2024 Bethany Mir NP [address], [address], [place], [address], [facility] 5 09:33:02 Seasonal allergy 817782723 Active 2024 Bethany Mir NP [address], [address], [place], [address], [facility] 5 09:33:16 Vascular dementia with behavioral disturbance 4265360216986 04 Active 2024 Bethany Mir NP [address], [address], [place], [address], [facility] 5 09:46:13 Chronic gout without tophus 480573001 Active 2024 Bethany Mir NP [address], [address], [place], [address], [facility] 5 09:53:55 Gastroesoph ageal reflux disease without esophagitis 328475197 Active 2024 Bethany Mir NP [address], [address], [place], [address], [facility] 5 09:55:38 Coronary arterioscle rosis 55215470 Active 2024 Bethany Mir NP [address], [place], [address], [facility] 5 10:51:27 Problem Notes None recorded. Medical Equipment None Reported. Allergies No known drug allergies Vitals Date Recorded Heart rate Respiratory rate Body temperature Oxygen saturation Oxygen saturation in Arterial blood by Pulse oximetry Systolic And Diastolic Provider Name and Address Organization Details Last Updated DateTime 5 73 /min 16 /min 97.8 [degF] 95 % 95 % 122/68 mm[Hg] VIOLET REYES NP [address] [facility] [facility], [address], [place], [address], [facility] 5 12:15:30 Date Recorded Body weight Heart rate Respiratory rate Body temperature Oxygen saturation Oxygen saturation in Arterial blood by Pulse oximetry Systolic And Diastolic Provider Name and Address Organization Details Last Updated DateTime 5 44473.8 9 g 72 /min 18 /min 97.6 [degF] 96 % 96 % 122/68 mm[Hg] Bethany Mir NP [address], [address], [place], [address], [facility] 5 12:50:55 Date Recorded Heart rate Respiratory rate Body temperature Oxygen saturation Oxygen saturation in Arterial blood by Pulse oximetry Systolic And Diastolic Provider Name and Address Organization Details Last Updated DateTime 5 71 /min 18 /min 97.5 [degF] 96 % 96 % 122/68 mm[Hg] VIOLET REYES NP [address] [facility] [facility], [facility] [address], [place], [address], [facility] 5 12:56:54 Date Recorded Body height Body mass index (BMI) Body weight Heart rate Respiratory rate Body temperature Oxygen saturation Oxygen saturation in Arterial blood by Pulse oximetry Systolic And Diastolic Provider Name and Address Organization Details Last Updated DateTime 5 152.4 cm 29.6 kg/m2 10275.3 2 g 67 /min 18 /min 97.5 [degF] 97 % 97 % 128/66 mm[Hg] Ning Bunn MD [address] [facility] [facility], [address], [place], [address], [facility] 5 16:14:43 Date Recorded Body height Heart rate Respiratory rate Body temperature Oxygen saturation Oxygen saturation in Arterial blood by Pulse oximetry Systolic And Diastolic Provider Name and Address Organization Details Last Updated DateTime 5 152.4 cm 80 /min 18 /min 96.9 [degF] 100 % 100 % 128/72 mm[Hg] VIOLET REYES NP [address] [facility], [facility] [address], [place], [address], [facility] 5 13:35:10 Social History Question Answer Notes LastModified by Organizat ion Details LastModified Time Tobacco Smoking Status Former Smoker Bethany Mir NP [address] [facility] [facility], [facility] [address], [place], [address], [facility] 10/24/2024 09:07:44 Do You Have An Advance Directive? Yes Information not available 10/24/2024 What Is Your Code Status? DNR/DNI Information not available 10/24/2024 Where Do You Live? [facility] Information not available 12/29/2024 Legal Guardian? No polly Informati on not available 12/29/2024 Do You Have A Medical Power Of Testing Manager? Yes [facility] Information not available 12/29/2024 What Was The Date Of Your Most Recent Tobacco Screening? 10/24/2024 Information not available 10/24/2024 Do You Have An Out Of Hospital DNR? Yes [place] Information not available 12/29/2024 What Is Your Relationship Status? Unknown Information not available 10/24/2024 How Much Tobacco Do You Smoke? No Information not available 10/24/2024 Has Tobacco Cessation Counseling Been Provided? No Information not available 10/24/2024 Sex: Female Functional Status Question Answer Note LastModified by Organizat ion Details LastModified Time Do you use any illicit or recreational drugs? No Information not available 10/24/2024 Do you or have you ever used any other forms of tobacco or nicotine? No Information not available 10/24/2024 What is your level of alcohol consumption? None Information not available 10/24/2024 Mental Status None recorded. Family History Nothing Reported Notes:N/C Medical History No medical history recorded. Gynecological HistoryNo gynecological history recorded. Obstetrics History GPAL:G 0 P 0 0 0 0 Past Encounters Encounter ID Performer Location Encounter Start Date Encounter Closed Date Diagnosis/Indication Diagnosis SNOMED-CT Code Diagnosis ICD10 Code Diagnosis IMO Codes Diagnosis Note [id number] Bethany Mir NP [address] [address] 10/24/2024 09:05:33 10/27/2024 13:10:08 Paranoid schizophrenia 16593843 F20.0 19778 levels just checked during psych hospital admit and doses adjusted accordingl y, had med noncomplia nce and increased paranoid delusions at home prior to psych admitcloza pine 300 mg po qhs and 25 mg po bidsertral ine 50 mg po qdlorazepm a 1 mg po qd prnhospita l paperwork notes she does not have the capacity to make own decisions and granddanajma ayers HCP makes decisionsi nvokecbc with diff monthly for monitoring will need to fill out clozapine rems and register when labs are backgrandd satnam reported she is currently on monthly bloodwork checks for clozapine Seasonal allergy 0098771 04 J30.2 72984 loratidine 10 mg po qhs Multiple myeloma 9106241 06 C90.00 15215828 ondansetro n 4m g po q 4 hours prn nauseaacyc lovir 400 mg po qdlenalido mide 15 mg po qd -15 days on and [address] angeles chaney appt 12/12 and sylvester ayers reports she will take her Vascular d ementia with behavioral disturbance 0969792779 61086 F01.B18 2865151489 pt with hx of dementiain voked with sylvester sorenson as decision makermonit or Osteoporosis 81330012 M8 1.0 42865427 ? osteoporos ischolecal ciferol 50 mcg po qddenosuma b 120 mg sc q 8 weeksmonit or Chronic go ut without tophus 376282992 M1A.9XX0 91347873 ? if gout or unspecifie d reason for medallopur inol [address] franco and request pmh and recordsmon itor for symptoms Gastroesop hageal reflux disease without esophagitis 526298519 K21.9 301225 omeprazole 20 mg po ammonitor Coronary arteriosclerosis 87214280 I25.10 8829258119 hx ofaspirin 81 mg po qdmonitor [id number] Damaso Abreu MD [address] [address] 10/26/2024 10:32:40 10/27/2024 13:14:53 Paranoid schizophrenia 27476239 F20.0 17492 see HPIbaselin e paranoid schizophre inge with acute decompensa tion with med non-compli ancefollow ed by psych now onclozapin e 25 mg bid and 300 mg qhsinvoke HCPpsych to eval and followmoni tor sx control Seasonal allergy 8990157 04 J30.2 51422 loratidine 10 mg po qhs continuedm onitor for effect Multiple myeloma 9984381 06 C90.00 67426681 continue oncology medscoordi andriy with oncologyf/ u in placemonit or cbc and update oncology with concerns Vascular d ementia with behavioral disturbance 0292058910 97943 F01.B18 2026346366 see aboveHCP invokedmon itor for behaviorsp sych to follow Chronic go ut without tophus 683696208 M1A.9XX0 59479165 ? if gout or unspecifie d reason for medallopur inol [address] franco and request pmh and recordsmon itor for symptoms Gastroesop hageal reflux disease without esophagitis 507439798 K21.9 098006 omeprazole 20 mg po qdmonitor for sx relief Coronary arteriosclerosis 94155299 I25.10 9008231501 carrying dx maintained onasa 81 mg po qdnot on statin or beta blockermon itor sx Asthenia 77458466 R53.1 93786 PT OT eval and treatmonit or fall risk and need for increased support in community [id number] Bethany Mir NP [address] [address] 10/30/2024 07:50:38 11/03/2024 10:00:40 Paranoid schizophrenia 56203710 F20.0 31093 seems to be doing well since here, [...] and followmoni tor sx control Coronary arteriosclerosis 18605568 I25.10 0649974359 carrying dx maintained onasa 81 mg po qdnot on statin or beta blockermon itor sx Multiple myeloma 8315749 06 C90.00 50720846 continue oncology medscoordi andriy with oncologyal lopurinolf /u in placemonit or cbc and update oncology with concerns Vascular d ementia with behavioral disturbance 5245143329 46181 F01.B18 6992908838 see aboveHCP invokedmon itor for behaviorsp sych to follow Asthenia 80778810 R53.1 91573 PT OT eval and treatmonit or fall risk and need for increased support in community Gastroesop hageal reflux disease without esophagitis 457474729 K21.9 433470 omeprazole 20 mg po qdmonitor for sx relief Osteoporosis 12421358 M8 1.0 75714401 osteoporos ischolecal ciferol 50 mcg po qddenosuma b 120 mg sc q 8 weeksmonit or [id number] VIOLET REYES NP [facility] [address] 11/06/2024 12:14:22 11/12/2024 12:37:18 Paranoid schizophrenia 04924074 F20.0 45478 Still declining care with staff, personal care provided by family.Enc ourage med compliance Psych eval prnContinu e clozapine 25 mg bid and 300 mg qhsLast ANC 11/05 1.03 - repeat in amInvoked HCPmonitor sx control Vascular d ementia with behavioral disturbance 5353473235 83116 F01.B18 9098342055 see aboveHCP invokedmon itor for behaviorsp sych to follow Coronary arteriosclerosis 92033123 I25.10 7162562480 carrying dx maintained onasa 81 mg po qdnot on statin or beta blockermon itor sx, VS Multiple myeloma 9920793 06 C90.00 28439167 continue oncology medscoordi andriy with oncologyal lopurinolf /u in placemonit or cbc and update oncology with concerns Asthenia 43325244 R53.1 16932 PT OT eval and treatmonit or fall risk and need for increased support in community Gastroesop hageal reflux disease without esophagitis 459452377 K21.9 182959 omeprazole 20 mg po qdmonitor for sx relief Osteoporosis 83281746 M8 1.0 26686374 osteoporos ischolecal ciferol 50 mcg po qddenosuma b 120 mg sc q 8 weeksmonit or [id number] Bethany Mir NP [facility] [address] [address] 11/13/2024 12:50:27 11/17/2024 08:59:32 Paranoid schizophrenia 38721954 F20.0 35923 Still declining care with staff, personal care provided by family.Enc ourage med compliance Psych eval prnContinu eclozapine 25 mg bid and 300 mg qhsLast ANC 11/05 1.03 - repeat in am, slightly better at 1.49 abs neuts on 11/12Invoke d HCPmonitor sx control Vascular d ementia with behavioral disturbance 3684216544 80133 F01.B18 5625842410 see aboveHCP invokedmon itor for behaviorsp sych to follow Coronary arteriosclerosis 14955867 I25.10 0246913488 carrying dx maintained onasa 81 mg po qdnot on statin or beta blockermon itor sx, VS Multiple myeloma 2157364 06 C90.00 61738315 continuere vlimid 15 mg po qd x 15 dAYScoordi andriy with oncologyal lopurinolf /u in place, however she didn't go, need to reschedule granddaugh ter resched appt per nsgmonitor cbc and update oncology with concerns Asthenia 64536187 R53.1 87874 PT OT eval and treatmonit or fall risk and need for increased support in community Gastroesop hageal reflux disease without esophagitis 504498275 K21.9 623596 omeprazole 20 mg po qdmonitor for sx relief Osteoporosis 65316087 M8 1.0 98317497 osteoporos ischolecal ciferol 50 mcg po qddenosuma b 120 mg sc q [facility] [id number] VIOLET REYES NP [address] [address] 11/18/2024 12:36:53 11/20/2024 13:03:35 Paranoid schizophrenia 14857001 F20.0 51255 Declining care with staff, personal care provided by family.Enc ourage med compliance Psych eval prnContinu e clozapine 25 mg bid and 300 mg qhsLast ANC 1.49 on 11/12CBCD q monthInvok ed HCPmonitor sx control Vascular d ementia with behavioral disturbance 7348899654 65847 F01.B18 3938981114 see aboveHCP invokedmon itor for behaviorsp sych to follow Coronary arteriosclerosis 31331638 I25.10 7034927754 carrying dx maintained onasa 81 mg po qdnot on statin or beta blockermon itor sx, VS Multiple myeloma 1467972 06 C90.00 33905935 Just started revlimid 15 mg po qd x 15 days on 11/16, then stop x 2 wksCoordin ate care with oncology, Sylvester ayers rescheduli ng appointmen t as it was missed the beginning of the month.Cont inue allopurino l 100 mg qdCheck with Oncology re: freq. of CBCD, currently q monthUpdat e oncology with concerns Asthenia 41413800 R53.1 35074 Not working with PT OT presently. Monitor fall risk and need for increased support in community if returns home. Gastroesop hageal reflux disease without esophagitis 104305316 K21.9 447401 omeprazole 20 mg po qdmonitor for sx relief Osteoporosis 59223120 M8 1.0 94843697 osteoporos ischolecal ciferol 50 mcg po qddenosuma b 120 mg sc q 8 weeks in [facility] [id number] Ning Bunn MD [address] [address] 12/29/2024 15:54:15 02/05/2025 11:05:01 Paranoid schizophrenia 83050695 F20.0 51487 Declining care with staff, personal care provided by family.Enc ourage med compliance Psych eval prnContinu e clozapine 25 mg bid and 300 mg qhsLast ANC 1.49 on 11/12CBCD q monthInvok ed HCPmonitor sx control Vascular d ementia with behavioral disturbance 2057232107 02041 F01.B18 2639759633 see aboveHCP invokedmon itor for behaviorsp sych to follow Coronary arteriosclerosis 61172355 I25.10 3578507463 carrying dx maintained onasa 81 mg po qdnot on statin or beta blockermon itor sx, VS Multiple myeloma 2552148 06 C90.00 14378995 Just started revlimid 15 mg po qd x 15 days on 11/16, then stop x 2 wksCoordin ate care with oncologySylvester rescheduli ng appointmen t as it was missed the beginning of the month.Cont inue allopurino l 100 mg qdCheck with Oncology re: freq. of CBCD, currently q monthUpdat e oncology with concerns Asthenia 08064743 R53.1 72472 Not working with PT OT presently. Monitor fall risk and need for increased support in community if returns home. Gastroesop hageal reflux disease without esophagitis 259940736 K21.9 173355 No current sxs.Contin ue omeprazole 20 mg qdMonitor GI sxs. Osteoporosis 22181483 M8 1.8 9246234 Continue cholecalci ferol 50 mcg qd and denosumab 120 mg sc q 8 weeks in [facility] [id number] VIOLET REYES NP [address] [address] 01/22/2025 13:33:35 01/26/2025 15:31:22 Paranoid schizophrenia 91819966 F20.0 11294 More comfortabl e/complian t with my visits, but still stays mostly in her room.Jr nue:clozap ine 25 mg bid and 300 mg qhszoloft 50 mg qdLast ANC 2 on 01/12CBCD q monthInvok ed HCPmonitor sx controlPsy ch eval prn Vascular d ementia with behavioral disturbance 1940649758 18104 F01.B18 7127086011 see aboveHCP invokedmon itor for behaviorsp sych to follow Coronary arteriosclerosis 81225457 I25.10 4638073590 carrying dx maintained onasa 81 mg po qdnot on statin or beta blockermon itor sx, VS Multiple myeloma 7717360 06 C90.00 15363593 Just started revlimid 15 mg po qd x 15 days on 11/16, 15 days offCoordin ate care with oncology, [facility] ter reschedjacquelyn appointmen tCBCD q month, current AnC 2.00Update oncology with concerns Asthenia 30048551 R53.1 03443 Not working with PT OT presently. Transition ed to LTCMonitor fall risk and need for increased support. Gastroesop hageal reflux disease without esophagitis 784142790 K21.9 121070 Continue omeprazole 20 mg po qdmonitor for sx relief Osteoporosis 69350731 M8 1.0 15364441 osteoporos ischolecal ciferol 2000 U po qddenosuma b 120 mg sc q 8 weeks in [facility] Gout 83960087 M10.9 9701831 Continue allopurino l 100 mg qd Seasonal allergy 2235233 04 J30.2 32095 Continue claritin 10 mg qd Chronic anemia 516484190 D64.9 344286 Continue daily FeCBCD q monthMonit or VS, s/s active bleed Health Concerns Section Related Observation LastModified by Organization Detai ls LastModified Time None Recorded Concern Status LastModified by Organization Details LastModified Time None Recorded Advance Directives Directive Y: Payers Insurance Date Sequence Insurance Name Policy Number Policy Garcia Covered Member ID Garcia Member ID Guarantor Name 02/06/2025 1 [facility] - DOS ON OR AFTER 2022 - MEDICARE ADVANTAGE [place] (MEDICARE REPLACEMENT/ADV ANTAGE - PPO) Jeanne Younger [id number] Jeanne Younger Notes Date Note Type Note Provider Name and Address Organization Details Recorded Time 11/06/2024 text/html ROS as noted in the HPI Ada is seen for an acute rounding visit. She is a 79 yo female, here for LTC, [place] [facility] [place] for reported exacerbation of paranoia and noncompliance with her medications. Her medications were adjusted and seems to be doing much better. Currently not working with rehab.VSSLabs being trended, stable this week except ANC dropping - 1.03. Followed due to clozapine. Upon exam, Ada is in bed, alert, NAD. Smiles, but when she learns who I am ([employer]) she says she is fine and refuses to be examined.Case discussed with nsg., no new issues, family comes in to provide personal care as she refuses care with aides. Eating very well. PMH: schizophrenia, multiple myeloma Granddaughter is HCP and decision maker, invokedMOLST: DNR/DNI/ okay to transfer to hospital, No dialysis, no art nutrition, okay for IVF VIOLET REYES NP [address] [facility], [address], [place], [address], [facility] - [facility] 11/06/2024 12:38:20 11/13/2024 text/html ROS as noted in the HPI Ada is seen for an acute rounding [...] this week at 1.49 improving. On exam, Jeanne is lying in bed in NAD. She is doing well, eating and drinking fair amounts and denies any concerns today and smiles. of note: Pt is a 79 yo f, here for LTC, admitted [place] [facility] [place] for reported exacerbation of paranoia and non compliance with her medications. Her medications were adjusted and seems to be doing much better. Granddaughter is HCP and decision maker, invokedMOLST: DNR/DNI/ okay to transfer to hospital, No dialysis, no art nutrition, okay for IVF Bethany Mir NP [address] [facility], [address], [place], [address], [facility] 11/13/2024 13:05:52 11/18/2024 text/html ROS as noted in the HPI Jeanne is seen today for a routine 30 day visit. She is a 79 yo female, here for LTC, admitted [place] [facility] [place] for reported exacerbation of paranoia and noncompliance with her medications. Her medications were adjusted and seems to be doing much better. So far while here, Ada has remained stable.Family helping provide personal care as refuses care by staff at times.VSSLabs trended, last ANC 1.49.Concern of her missing her Revlimid; family was to bring in and also get her to her Oncology appointment. Med finally brought in 11/16, unsure if Oncology appt. was rescheduled. Upon exam, Jeanne is in bed, alert, NAD. Pleasant, more cooperative with exam today. She denies any complaints today, appetite 100% for lunch.No issues per nsg. PMH: schizophrenia, multiple myeloma Granddaughter is HCP and decision maker, invokedMOLST: DNR/DNI/ okay to transfer to hospital, No dialysis, no art nutrition, okay for IVF VIOLET REYES NP [address] [facility] [facility], [address], [place], [address], [facility] 11/18/2024 13:17:47 12/29/2024 text/html This is a 79 yo woman with MM and paranoid schizophrenia, LTC resident, who I am seeing today for a routine MD 60 day reeval rounding visit. She has been here since [facility]. Since here she has continued to be paranoid, allowing only family to provide care at times.She has been compliant with medications.Her last heme/onc appt was 12/12 and she got an infusion of denosumab.Scheduled for f/u, no date in system.She also continues on Revlimid for 15 days/month.Per nursing she has continued to be compliant with meds, but not with care unless family is present. Tonight she is in bed.I see her with a [facility] speaking staff member.She says I'm ok, I'm ok She allows me to listen to her heart and lungs and then says carolina figueroa .On our way out the [facility] speaking staff member tells me she says those bitches . Her PMH includes HTN, paranoid schizophrenia, multiple myeloma on chemo, asthma, GERD, CAD, and hx of tubular adenoma of colon. Ning Bunn MD [address] [place] [address], [address], [place], [address], [facility] 02/02/2025 01:17:26 01/22/2025 text/html ROS as noted in the HPI Jeanne is seen today for a routine 90 day visit. She is a 79 yo female, here for LTC, admitted [place] [facility] [place] for reported exacerbation of paranoia and noncompliance with her medications. Her medications were adjusted, behaviors improved, sent here for continued care. Since admission, Jeanne has been doing well. No behaviors, but tends to self isolate in her room most of the time. VSSWt. stable.Labs 01/12 stable.Family providing Revlimid, taking routinely. Follows with Oncology.MAR reviewed, no new med changes. Upon exam, Jeanne is in bed, alert, NAD. Pleasant, cooperative with exam today. Denies any complaints, feels well. Appetite good.No issues per nsg. PMH: schizophrenia, multiple myeloma, CAD, GERD, OP, gout, vascular dementia, Granddaughter is HCP and decision maker, invokedMOLST: DNR/DNI/ okay to transfer to hospital, No dialysis, no art nutrition, okay for IVF VIOLET REYES NP [address] [facility], [address], [place], [address], [facility] - [facility] 01/22/2025 13:50:27 OBGyn Episode No OBEpisode recorded.
--- OUTSIDE RECORDS SUMMARY | 2025-05-28 16:59 | XMS_ITS | Encounter Summary ---
Author Organization [employer] Address [address] [place] [address] Care Team Providers Care Medical Technical Writer Name Role Phone Damaso Abreu MD Primary Care Provider [phone] Encounter Details Date Type Department Care Team (Late st Contact Info) Description 10/28/2024 Lab Requisition [facility] - Main Lab 299 [facility] [place] [address] Damaso Abreu MD [address] [place] [address] [address] [place], [phone] Essential (primary) hypertension; Unspecified dementia, unspecified severity, without behavioral disturbance, psychotic disturbance, mood disturbance, and anxiety (CMS/HCC V24, CMS/HCC V28); Multiple myeloma not [...] Procedure Name Priority Date/Time Associated Diagnosis Comments CBC WITH AUTO DIFFERENTIAL Routine 10/29/2024 6:44 AM EDT Essential (primary) hypertension Unspecified dementia, unspecified severity, without behavioral disturbance, psychotic disturbance, mood disturbance, and anxiety (CMS/HCC V24, CMS/HCC V28) Multiple myeloma not having achieved remission (CMS/HCC V24, CMS/HCC V28) CBC AND DIFFERENTIAL Routine 10/29/2024 6:44 AM EDT Essential (primary) hypertension Unspecified dementia, unspecified severity, without behavioral disturbance, psychotic disturbance, mood disturbance, and anxiety (CMS/HCC V24, CMS/HCC V28) Multiple myeloma not having achieved remission ([facility] V24, [facility] V28) BASIC METABOLIC PANEL Routine 10/29/2024 6:44 AM EDT Essential (primary) hypertension Unspecified dementia, unspecified severity, without behavioral disturbance, psychotic disturbance, mood disturbance, and anxiety ([facility]/HCC V24, [facility]/HCC V28) Multiple myeloma not having achieved remission ([facility] V24, [facility] V28) documented in this encounter Results * (ABNORMAL) CBC auto differential (10/29/2024 6:44 AM EDT) Pathologist [facility] WBC 3.5(L) 4.8 - 10.8 K/mcL LAB HEMETOLOGY METHOD 10/29/2024 11:31 AM [facility] LAB RBC 3.40(L) 3.80 - 4.80 M/mcL LAB HEMETOLOGY METHOD 10/29/2024 11:31 AM [facility] LAB Hemoglobin 10.0(L) 11.5 - 16.0 g/dL LAB HEMETOLOGY METHOD 10/29/2024 11:31 AM [facility] LAB Hematocrit 32.4(L) 35.0 - 47.0 % LAB HEMETOLOGY METHOD 10/29/2024 11:31 AM [facility] LAB MCV 94.7 79.0 - 98.0 FL LAB HEMETOLOGY METHOD 10/29/2024 11:31 AM [facility] LAB MCH 29.2 27.0 - 32.0 pcg LAB HEMETOLOGY METHOD 10/29/2024 11:31 AM [facility] LAB MCHC 30.9(L) 32.0 - 37.0 g/dL LAB HEMETOLOGY METHOD 10/29/2024 11:31 AM [facility] LAB RDW 15.6(H) 11.0 - 15.0 % LAB HEMETOLOGY METHOD 10/29/2024 11:31 AM [facility] LAB Platelets 134 130 - 400 K/mcL LAB HEMETOLOGY METHOD 10/29/2024 11:31 AM [facility] LAB MPV 11.6(H) 7.0 - 11.0 FL LAB HEMETOLOGY METHOD 10/29/2024 11:31 AM [facility] LAB NRBC 0.0 <1.0 % LAB HEMETOLOGY METHOD 10/29/2024 11:31 AM [facility] LAB NRBC Absolute 0.00 <0.10 K/mcL LAB HEMETOLOGY METHOD 10/29/2024 11:31 AM [facility] Neutrophils Relative 45.6 % LAB HEMETOLOGY METHOD 10/29/2024 11:31 AM [facility] Lymphocytes Relative 26.1 % LAB HEMETOLOGY METHOD 10/29/2024 11:31 AM [facility] Monocytes Relative 15.6 % LAB HEMETOLOGY METHOD 10/29/2024 11:31 AM [facility] Eosinophils Relative 10.5 % LAB HEMETOLOGY METHOD 10/29/2024 11:31 AM [facility] Basophils Relative 1.1 % LAB HEMETOLOGY METHOD 10/29/2024 11:31 AM [facility] Immature Granulocytes Relative 1.1 % LAB HEMETOLOGY METHOD 10/29/2024 11:31 AM [facility] Neutrophils Absolute 1.60 1.50 - 7.00 K/mcL LAB HEMETOLOGY METHOD 10/29/2024 11:31 AM [facility] Lymphocytes Absolute 0.92(L) 1.00 - 5.00 K/mcL LAB HEMETOLOGY METHOD 10/29/2024 11:31 AM [facility] Monocytes Absolute 0.55 0.20 - 1.00 K/mcL LAB HEMETOLOGY METHOD 10/29/2024 11:31 AM EDT [facility] Eosinophils Absolute 0.37 0.00 - 0.50 K/mcL LAB HEMETOLOGY METHOD 10/29/2024 11:31 AM EDT [facility] LAB Basophils Absolute 0.04 0.00 - 0.20 K/[facility] LAB HEMETOLOGY METHOD 10/29/2024 11:31 AM EDT [facility] LAB Immature Granulocytes Absolute 0.04(H) 0.00 - 0.03 K/[facility] LAB HEMETOLOGY METHOD 10/29/2024 11:31 AM EDT [facility] LAB Blood Venous blood specimen / Unknown Venipuncture / Unknown 10/29/2024 6:44 AM EDT 10/29/2024 11:15 AM EDT us Damaso Abreu MD LAB BLOOD ORDERABLES Final Resul t [facility] [address] [place] [address], [place] [phone] * (ABNORMAL) Basic metabolic panel (10/29/2024 6:44 AM EDT) Sodium 143 133 - 145 mmol/L LAB CHEMISTRY METHOD 10/29/2024 12:38 PM [facility] Potassium 4.0 3.5 - 5.5 mmol/L LAB CHEMISTRY METHOD 10/29/2024 12:38 PM [facility] Chloride 111(H) 96 - 110 mmol/L LAB CHEMISTRY METHOD 10/29/2024 12:38 PM [facility] CO2 25 21 - 32 mmol/L LAB CHEMISTRY METHOD 10/29/2024 12:38 PM [facility] Anion Gap 7 3 - 11 LAB CHEMISTRY METHOD 10/29/2024 12:38 PM [facility] Glucose 77 70 - 100 mg/dL LAB CHEMISTRY METHOD 10/29/2024 12:38 PM EDT [facility] BUN 19 5 - 25 mg/dL LAB CHEMISTRY METHOD 10/29/2024 12:38 PM EDT [facility] Creatinine 0.82 0.50 - 1.10 mg/dL LAB CHEMISTRY METHOD 10/29/2024 12:38 PM EDT [facility] LAB eGFR 74 >=60 mL/min/1. 73m2 LAB CHEMISTRY METHOD 10/29/2024 12:38 PM EDT [facility] LAB Comment:Calculation based on the Chronic Kidney Disease Epidemiology Collaboration (CKD-EPI) equation refit without adjustment for race. BUN/Creatinine Ratio 23.2 LAB CHEMISTRY METHOD 10/29/2024 12:38 PM EDT [facility] Calcium 7.7(L) 8.5 - 10.5 mg/dL LAB CHEMISTRY METHOD 10/29/2024 12:38 PM EDT [facility] LAB Blood Venous blood specimen / Unknown Venipuncture / Unknown 10/29/2024 6:44 AM EDT 10/29/2024 11:15 AM EDT us Damaso Abreu MD LAB BLOOD ORDERABLES Final Resul t [facility] [address] [place] [address], documented in this encounter Visit Diagnoses Diagnosis Essential (primary) hypertension Unspecified essential hypertension Unspecified dementia, unspecified severity, without behavioral disturbance, psychotic disturbance, mood disturbance, and anxiety (CMS/HCC V24, CMS/HCC V28) Multiple myeloma not having achieved remission (CMS/HCC V24, CMS/HCC V28) documented in this encounter Care Teams Medical Technical Writer Relationship Specialty Start Date End Date Damaso Abreu MD [address] [place] [phone] PCP - General Family Medicine 10/24/24 documented as of this encounter
--- OUTSIDE RECORDS SUMMARY | 2025-05-28 16:59 | XMS_ITS | Encounter Summary ---
Author Organization [employer] Address [address] [place] [address] Care Team Providers Care Jd Edwards Name Role Phone Damaso Abreu MD Primary Care Provider [phone] Encounter Details Date Type Department Care Team (Late st Contact Info) Description 11/04/2024 Lab Requisition [facility] - Main Lab 299 [facility] [place] [address] Damaso Abreu MD [address] [place] [address] [address] [place], [phone] Essential (primary) hypertension; Unspecified dementia, unspecified [...] Diagnosis Comments CBC WITH AUTO DIFFERENTIAL Routine 11/05/2024 6:10 AM EDT Essential (primary) hypertension Unspecified dementia, unspecified severity, without behavioral disturbance, psychotic disturbance, mood disturbance, and anxiety (CMS/HCC V24, CMS/HCC V28) Multiple myeloma not having achieved remission (CMS/HCC V24, CMS/HCC V28) CBC AND DIFFERENTIAL Routine 11/05/2024 6:10 AM EDT Essential (primary) hypertension Unspecified dementia, unspecified severity, without behavioral disturbance, psychotic disturbance, mood disturbance, and anxiety (CMS/HCC V24, CMS/HCC V28) Multiple myeloma not having achieved remission ([facility] V24, [facility] V28) BASIC METABOLIC PANEL Routine 11/05/2024 6:10 AM EDT Essential (primary) hypertension Unspecified dementia, unspecified severity, without behavioral disturbance, psychotic disturbance, mood disturbance, and anxiety ([facility]/HCC V24, [facility]/HCC V28) Multiple myeloma not having achieved remission ([facility] V24, [facility] V28) documented in this encounter Results * (ABNORMAL) CBC auto differential (11/05/2024 6:10 AM EDT) WBC 3.0(L) 4.8 - 10.8 K/mcL LAB HEMETOLOGY METHOD 11/05/2024 12:07 PM [facility] LAB RBC 3.40(L) 3.80 - 4.80 M/mcL LAB HEMETOLOGY METHOD 11/05/2024 12:07 PM [facility] LAB Hemoglobin 9.9(L) 11.5 - 16.0 g/dL LAB HEMETOLOGY METHOD 11/05/2024 12:07 PM [facility] LAB Hematocrit 32.5(L) 35.0 - 47.0 % LAB HEMETOLOGY METHOD 11/05/2024 12:07 PM [facility] LAB MCV 96.2 79.0 - 98.0 FL LAB HEMETOLOGY METHOD 11/05/2024 12:07 PM [facility] LAB MCH 29.3 27.0 - 32.0 pcg LAB HEMETOLOGY METHOD 11/05/2024 12:07 PM [facility] LAB MCHC 30.5(L) 32.0 - 37.0 g/dL LAB HEMETOLOGY METHOD 11/05/2024 12:07 PM [facility] LAB RDW 15.7(H) 11.0 - 15.0 % LAB HEMETOLOGY METHOD 11/05/2024 12:07 PM [facility] LAB Platelets 171 130 - 400 K/mcL LAB HEMETOLOGY METHOD 11/05/2024 12:07 PM [facility] LAB MPV 10.7 7.0 - 11.0 FL LAB HEMETOLOGY METHOD 11/05/2024 12:07 PM [facility] LAB NRBC 0.0 <1.0 % LAB HEMETOLOGY METHOD 11/05/2024 12:07 PM [facility] LAB NRBC Absolute 0.00 <0.10 K/mcL LAB HEMETOLOGY METHOD 11/05/2024 12:07 PM [facility] Neutrophils Relative 33.9 % LAB HEMETOLOGY METHOD 11/05/2024 12:07 PM [facility] Lymphocytes Relative 38.0 % LAB HEMETOLOGY METHOD 11/05/2024 12:07 PM [facility] Monocytes Relative 15.8 % LAB HEMETOLOGY METHOD 11/05/2024 12:07 PM [facility] Eosinophils Relative 9.6 % LAB HEMETOLOGY METHOD 11/05/2024 12:07 PM [facility] Basophils Relative 2.0 % LAB HEMETOLOGY METHOD 11/05/2024 12:07 PM [facility] LAB Immature Granulocytes Relative 0.7 % LAB HEMETOLOGY METHOD 11/05/2024 12:07 PM [facility] LAB Neutrophils Absolute 1.03(L) 1.50 - 7.00 K/mcL LAB HEMETOLOGY METHOD 11/05/2024 12:07 PM [facility] LAB Lymphocytes Absolute 1.15 1.00 - 5.00 K/mcL LAB HEMETOLOGY METHOD 11/05/2024 12:07 PM [facility] LAB Monocytes Absolute 0.48 0.20 - 1.00 K/mcL LAB HEMETOLOGY METHOD 11/05/2024 12:07 PM EDT [facility] LAB Eosinophils Absolute 0.29 0.00 - 0.50 K/[facility] LAB HEMETOLOGY METHOD 11/05/2024 12:07 PM EDT [facility] LAB Basophils Absolute 0.06 0.00 - 0.20 K/[facility] LAB HEMETOLOGY METHOD 11/05/2024 12:07 PM EDT [facility] LAB Immature Granulocytes Absolute 0.02 0.00 - 0.03 K/[facility] LAB HEMETOLOGY METHOD 11/05/2024 12:07 PM EDT [facility] LAB Blood Venous blood specimen / Unknown Venipuncture / Unknown 11/05/2024 6:10 AM EDT 11/05/2024 11:31 AM EDT us Damaso Abreu MD LAB BLOOD ORDERABLES Final Resul t [facility] [address] [place] [address], [place] [phone] * (ABNORMAL) Basic metabolic panel (11/05/2024 6:10 AM EDT) Sodium 141 133 - 145 mmol/L LAB CHEMISTRY METHOD 11/05/2024 12:20 PM [facility] Potassium 3.9 3.5 - 5.5 mmol/L LAB CHEMISTRY METHOD 11/05/2024 12:20 PM [facility] LAB Chloride 108 96 - 110 mmol/L LAB CHEMISTRY METHOD 11/05/2024 12:20 PM [facility] CO2 29 21 - 32 mmol/L LAB CHEMISTRY METHOD 11/05/2024 12:20 PM [facility] LAB Anion Gap 4 3 - 11 LAB CHEMISTRY METHOD 11/05/2024 12:20 PM [facility] LAB Glucose 70 70 - 100 mg/dL LAB CHEMISTRY METHOD 11/05/2024 12:20 PM [facility] BUN 18 5 - 25 mg/dL LAB CHEMISTRY METHOD 11/05/2024 12:20 PM EDT [facility] LAB Creatinine 1.06 0.50 - 1.10 mg/dL LAB CHEMISTRY METHOD 11/05/2024 12:20 PM EDT [facility] LAB eGFR 54(L) >=60 mL/min/1. 73m2 LAB CHEMISTRY METHOD 11/05/2024 12:20 PM EDT [facility] LAB Comment:Calculation based on the Chronic Kidney Disease Epidemiology Collaboration (CKD-EPI) equation refit without adjustment for race. BUN/Creatinine Ratio 17.0 LAB CHEMISTRY METHOD 11/05/2024 12:20 PM EDT [facility] Calcium 8.3(L) 8.5 - 10.5 mg/dL LAB CHEMISTRY METHOD 11/05/2024 12:20 PM EDT [facility] LAB Blood Venous blood specimen / Unknown Venipuncture / Unknown 11/05/2024 6:10 AM EDT 11/05/2024 11:30 AM EDT us Damaso Abreu MD LAB BLOOD ORDERABLES Final Resul t [facility] [address] [place] [address], documented in this encounter Visit Diagnoses Diagnosis Essential (primary) hypertension Unspecified essential hypertension Unspecified dementia, unspecified severity, without behavioral disturbance, psychotic disturbance, mood disturbance, and anxiety (CMS/HCC V24, CMS/HCC V28) Multiple myeloma not having achieved remission (CMS/HCC V24, CMS/HCC V28) documented in this encounter Care Teams Jd Edwards Relationship Specialty Start Date End Date Damaso Abreu MD [address] [place] [phone] PCP - General Family Medicine 10/24/24 documented as of this encounter
--- OUTSIDE RECORDS SUMMARY | 2025-05-28 16:59 | XMS_ITS | Encounter Summary ---
Author Organization [employer] Address [address] [place] [address] Care Team Providers Care Surfacing Technician Name Role Phone Damaso Abreu MD Primary Care Provider [phone] Encounter Details Date Type Department Care Team (Late st Contact Info) Description 11/11/2024 Lab Requisition [facility] - Main Lab 299 [facility] [place] [address] Damaso Abreu MD [address] [place] [address] [address] [place], [phone] Essential (primary) hypertension; Unspecified dementia, unspecified [...] Diagnosis Comments CBC WITH AUTO DIFFERENTIAL Routine 11/12/2024 8:27 AM EDT Essential (primary) hypertension Unspecified dementia, unspecified severity, without behavioral disturbance, psychotic disturbance, mood disturbance, and anxiety (CMS/HCC V24, CMS/HCC V28) Multiple myeloma not having achieved remission (CMS/HCC V24, CMS/HCC V28) CBC AND DIFFERENTIAL Routine 11/12/2024 8:27 AM EDT Essential (primary) hypertension Unspecified dementia, unspecified severity, without behavioral disturbance, psychotic disturbance, mood disturbance, and anxiety (CMS/HCC V24, CMS/HCC V28) Multiple myeloma not having achieved remission ([facility] V24, [facility] V28) documented in this encounter Results * (ABNORMAL) CBC auto differential (11/12/2024 8:27 AM EDT) WBC 3.5(L) 4.8 - 10.8 K/mcL LAB HEMETOLOGY METHOD [facility]2024 [facility] RBC 3.60(L) 3.80 - 4.80 M/mcL LAB HEMETOLOGY METHOD 11/12/2024 12:12 PM [facility] Hemoglobin 10.5(L) 11.5 - 16.0 g/dL LAB HEMETOLOGY METHOD 11/12/2024 12:12 PM [facility] LAB Hematocrit 34.0(L) 35.0 - 47.0 % LAB HEMETOLOGY METHOD 11/12/2024 12:12 PM [facility] LAB MCV 95.0 79.0 - 98.0 FL LAB HEMETOLOGY METHOD 11/12/2024 12:12 PM [facility] LAB MCH 29.3 27.0 - 32.0 pcg LAB HEMETOLOGY METHOD 11/12/2024 12:12 PM [facility] LAB MCHC 30.9(L) 32.0 - 37.0 g/dL LAB HEMETOLOGY METHOD 11/12/2024 12:12 PM [facility] LAB RDW 15.9(H) 11.0 - 15.0 % LAB HEMETOLOGY METHOD 11/12/2024 12:12 PM [facility] LAB Platelets 195 130 - 400 K/mcL LAB HEMETOLOGY METHOD 11/12/2024 12:12 PM [facility] LAB MPV 10.4 7.0 - 11.0 FL LAB HEMETOLOGY METHOD 11/12/2024 12:12 PM [facility] LAB NRBC 0.0 <1.0 % LAB HEMETOLOGY METHOD 11/12/2024 12:12 PM EDT [facility] NRBC Absolute 0.00 <0.10 K/mcL LAB HEMETOLOGY METHOD 11/12/2024 12:12 PM [facility] Neutrophils Relative 42.3 % LAB HEMETOLOGY METHOD 11/12/2024 12:12 PM [facility] Lymphocytes Relative 37.9 % LAB HEMETOLOGY METHOD 11/12/2024 12:12 PM EDT [facility] Monocytes Relative 12.3 % LAB HEMETOLOGY METHOD 11/12/2024 12:12 PM [facility] Eosinophils Relative 4.6 % LAB HEMETOLOGY METHOD 11/12/2024 12:12 PM [facility] Basophils Relative 2.3 % LAB HEMETOLOGY METHOD 11/12/2024 12:12 PM [facility] Immature Granulocytes Relative 0.6 % LAB HEMETOLOGY METHOD 11/12/2024 12:12 PM [facility] Neutrophils Absolute 1.49(L) 1.50 - 7.00 K/mcL LAB HEMETOLOGY METHOD 11/12/2024 12:12 PM [facility] Lymphocytes Absolute 1.33 1.00 - 5.00 K/mcL LAB HEMETOLOGY METHOD 11/12/2024 12:12 PM EDT [facility] Monocytes Absolute 0.43 0.20 - 1.00 K/mcL LAB HEMETOLOGY METHOD 11/12/2024 12:12 PM [facility] Eosinophils Absolute 0.16 0.00 - 0.50 K/mcL LAB HEMETOLOGY METHOD 11/12/2024 12:12 PM [facility] Basophils Absolute 0.08 0.00 - 0.20 K/mcL LAB HEMETOLOGY METHOD 11/12/2024 12:12 PM EDT [facility] Immature Granulocytes Absolute 0.02 0.00 - 0.03 K/mcL LAB HEMETOLOGY METHOD 11/12/2024 12:12 PM EDT [facility] Blood Venous blood specimen / Unknown Venipuncture / Unknown 11/12/2024 8:27 AM EDT 11/12/2024 11:18 AM EDT us Damaso Abreu MD LAB BLOOD ORDERABLES Final Resul t [facility] [address] [place] [address], documented in this encounter Visit Diagnoses Diagnosis Essential (primary) hypertension Unspecified essential hypertension Unspecified dementia, unspecified severity, without behavioral disturbance, psychotic disturbance, mood disturbance, and anxiety (CMS/HCC V24, [facility] V28) Multiple myeloma not having achieved remission (CMS/HCC V24, [facility] V28) documented in this encounter Care Teams Surfacing Technician Relationship Specialty Start Date End Date Damaso Abreu MD [address] [place] [phone] PCP - General Family Medicine 10/24/24 documented as of this encounter
--- OUTSIDE RECORDS SUMMARY | 2025-05-28 16:59 | XMS_ITS | Encounter Summary ---
Author Organization [employer] [facility] Address [address] [facility] [address] [place] [address] Care Team Providers Care Wool Sacker Name Role Phone Unavailable Primary Care Provider Unavailabl e Encounter Details Date Type Department Care Team (Latest Contact Info) Description 05/08/2019 Abstract C CONVERSIONS Dental, Provider, DDS Social History Tobacco [...]
--- OUTSIDE RECORDS SUMMARY | 2025-05-28 17:00 | XMS_ITS | Encounter Summary ---
Author Organization [employer] Address [address] [place] [address] Care Team Providers Care Billiard Table Repairer Name Role Phone Damaso Abreu MD Primary Care Provider [phone] Encounter Details Date Type Department Care Team (Late st Contact Info) Description 11/07/2024 Lab Requisition [facility] - Main Lab 299 [facility] [place] [address] Damaso Abreu MD [address] [place] [address] [address] [place], [address] Chronic obstructive pulmonary disease, unspecified (CMS/HCC V24, CMS/HCC V28); Anemia, unspecified; Unspecified dementia, unspecified severity, without behavioral disturbance, psychotic disturbance, mood disturbance, and anxiety (CMS/HCC V24, CMS/HCC V28); Neoplastic (malignant) related fatigue; Schizophrenia, unspecified (CMS/HCC V24, CMS/HCC V28) Social History Tobacco [...] Procedure Name Priority Date/Time Associated Diagnosis Comments WBC COUNT WITH ABSOLUTE NEUTROPHIL Routine 11/07/2024 7:04 AM EDT Chronic obstructive pulmonary disease, unspecified (CMS/HCC V24, CMS/HCC V28) Anemia, unspecified Unspecified dementia, unspecified severity, without behavioral disturbance, psychotic disturbance, mood disturbance, and anxiety (CMS/HCC V24, CMS/HCC V28) Neoplastic (malignant) related fatigue Schizophrenia, unspecified (CMS/HCC V24, CMS/HCC V28) CBC WITH AUTO DIFFERENTIAL Routine 11/07/2024 7:04 AM EDT Chronic obstructive pulmonary disease, unspecified (CMS/HCC V24, CMS/HCC V28) Anemia, unspecified Unspecified dementia, unspecified severity, without behavioral disturbance, psychotic disturbance, mood disturbance, and anxiety (CMS/HCC V24, CMS/HCC V28) Neoplastic (malignant) related fatigue Schizophrenia, unspecified (CMS/HCC V24, CMS/HCC V28) LAVENDER - EDTA Routine 11/07/2024 7:04 AM EDT Chronic obstructive pulmonary disease, unspecified (CMS/HCC V24, CMS/HCC V28) Anemia, unspecified Unspecified dementia, unspecified severity, without behavioral disturbance, psychotic disturbance, mood disturbance, and anxiety (CMS/HCC V24, CMS/HCC V28) Neoplastic (malignant) related fatigue Schizophrenia, unspecified (CMS/HCC V24, CMS/HCC V28) CBC AND DIFFERENTIAL Routine 11/07/2024 7:04 AM EDT Chronic obstructive pulmonary disease, unspecified (CMS/HCC V24, CMS/HCC V28) Anemia, unspecified Unspecified dementia, unspecified severity, without behavioral disturbance, psychotic disturbance, mood disturbance, and anxiety (CMS/HCC V24, CMS/HCC V28) Neoplastic (malignant) related fatigue Schizophrenia, unspecified (CMS/HCC V24, CMS/HCC V28) documented in this encounter Results * Lavender tube (11/07/2024 7:04 AM EDT) Extra Tube Hold for add-ons. 11/07/2024 11:01 AM EDT [facility] Comment:Auto resulted. Blood Venous blood specimen / Unknown Venipuncture / Unknown 11/07/2024 7:04 AM EDT 11/07/2024 9:15 AM EDT us Damaso Abreu MD LAB BLOOD ORDERABLES Final Resul t [facility] [address] [place] [address], [place] [phone] * (ABNORMAL) CBC auto differential (11/07/2024 7:04 AM EDT) [facility] WBC 3.0(L) 4.8 - 10.8 K/mcL LAB HEMETOLOGY METHOD [facility]07[facility] RBC 3.20(L) 3.80 - 4.80 M/mcL LAB HEMETOLOGY METHOD 11/07/2024 9:40 [facility] Hemoglobin 9.5(L) 11.5 - 16.0 g/dL LAB HEMETOLOGY METHOD 11/07/2024 9:40 AM [facility] Hematocrit 31.2(L) 35.0 - 47.0 % LAB HEMETOLOGY METHOD 11/07/2024 9:40 AM [facility] MCV 96.3 79.0 - 98.0 FL LAB HEMETOLOGY METHOD 11/07/2024 9:40 AM [facility] MCH 29.3 27.0 - 32.0 pcg LAB HEMETOLOGY METHOD 11/07/2024 9:40 AM [facility] MCHC 30.4(L) 32.0 - 37.0 g/dL LAB HEMETOLOGY METHOD 11/07/2024 9:40 AM [facility] RDW 15.4(H) 11.0 - 15.0 % LAB HEMETOLOGY METHOD 11/07/2024 9:40 AM [facility] Platelets 169 130 - 400 K/mcL LAB HEMETOLOGY METHOD 11/07/2024 9:40 AM [facility] MPV 10.3 7.0 - 11.0 FL LAB HEMETOLOGY METHOD 11/07/2024 9:40 AM [facility] NRBC 0.0 <1.0 % LAB HEMETOLOGY METHOD 11/07/2024 9:40 AM [facility] NRBC Absolute 0.00 <0.10 K/mcL LAB HEMETOLOGY METHOD 11/07/2024 9:40 AM [facility] Neutrophils Relative 43.4 % LAB HEMETOLOGY METHOD 11/07/2024 9:40 AM [facility] Lymphocytes Relative 33.9 % LAB HEMETOLOGY METHOD 11/07/2024 9:40 AM [facility] Monocytes Relative 15.1 % LAB HEMETOLOGY METHOD 11/07/2024 9:40 AM [facility] Eosinophils Relative 5.3 % LAB HEMETOLOGY METHOD 11/07/2024 9:40 AM [facility] Basophils Relative 1.6 % LAB HEMETOLOGY METHOD 11/07/2024 9:40 AM [facility] Immature Granulocytes Relative 0.7 % LAB HEMETOLOGY METHOD 11/07/2024 9:40 AM [facility] Neutrophils Absolute 1.32(L) 1.50 - 7.00 K/mcL LAB HEMETOLOGY METHOD 11/07/2024 9:40 AM [facility] Lymphocytes Absolute 1.03 1.00 - 5.00 K/mcL LAB HEMETOLOGY METHOD 11/07/2024 9:40 AM [facility] Monocytes Absolute 0.46 0.20 - 1.00 K/mcL LAB HEMETOLOGY METHOD 11/07/2024 9:40 AM [facility] Eosinophils Absolute 0.16 0.00 - 0.50 K/mcL LAB HEMETOLOGY METHOD 11/07/2024 9:40 AM [facility] Basophils Absolute 0.05 0.00 - 0.20 K/mcL LAB HEMETOLOGY METHOD 11/07/2024 9:40 AM [facility] Immature Granulocytes Absolute 0.02 0.00 - 0.03 K/[facility] LAB HEMETOLOGY METHOD 11/07/2024 9:40 AM EDT [facility] Blood Venous blood specimen / Unknown Venipuncture / Unknown 11/07/2024 7:04 AM EDT 11/07/2024 9:15 AM EDT Damaso Abreu MD LAB BLOOD ORDERABLES Final Resul t [facility] [address] [place] [address], [place] [phone] * (ABNORMAL) Wbc count with absolute neutrophil (11/07/2024 7:04 AM EDT) WBC 3.0(L) 4.8 - 10.8 K/[facility] LAB HEMETOLOGY METHOD 11/07/2024 9:40 AM EDT [facility] Neutrophils Absolute 1.32(L) 1.50 - 7.00 K/[facility] LAB HEMETOLOGY METHOD 11/07/2024 9:40 AM EDT [facility] Neutrophils Relative 43.4 % LAB HEMETOLOGY METHOD 11/07/2024 9:40 AM EDT [facility] Blood Venous blood specimen / Unknown Venipuncture / Unknown 11/07/2024 7:04 AM EDT 11/07/2024 9:15 AM EDT Damaso Abreu MD LAB BLOOD ORDERABLES Final Resul t [facility] [address] [place] [address], [place] [phone] documented in this encounter Visit Diagnoses Diagnosis Chronic obstructive pulmonary disease, unspecified (CMS/HCC V24, CMS/HCC V28) Anemia, unspecified Unspecified dementia, unspecified severity, without behavioral disturbance, psychotic disturbance, mood disturbance, and anxiety (CMS/HCC V24, CMS/HCC V28) Neoplastic (malignant) related fatigue Schizophrenia, unspecified (CMS/HCC V24, CMS/HCC V28) documented in this encounter Care Teams Billiard Table Repairer Relationship Specialty Start Date End Date Damaso Abreu MD [address] [place] [phone] PCP - General Family Medicine 10/24/24 documented as of this encounter
--- OUTSIDE RECORDS SUMMARY | 2025-05-28 17:00 | XMS_ITS | Clinical Summary ---
Author Organization [address] [facility] Address [address] [place] [address] Phone Care Team Providers Care Punch Molder Name Role Phone Damaso Abreu MD Primary Care Provider Social History Tobacco Use Types Packs/Day Years Used Date Smoking Tobacco: Never Assessed Comments Unknown Sex and Gender Information Value Date Recorded Sex Assigned at Not on file Legal Sex Female 10:35 AM EDT Gender Identity Not on file Sexual Orientation Not on file Plan of Treatment Health Maintenance Due Date Last Done Comments DTaP,Tdap,and Td Vaccines (1 - Tdap) 1964 Pneumococcal Vaccine: 50+ Ye ars (1 of 2 - PCV) 1966 Zoster Vaccines (1 of 2) 1966 RSV Immunization Adult Patie nts (1 - 1-dose 75+ series) 2022 Depression Screening 07/16/2024 Falls Risk Assessment 10/24/2024 Hepatitis C Screening 10/24/2024 Medicare Annual Wellness Visit 10/24/2024 Osteoporosis Screening (Bone Density Screening) 10/24/2024 Social Influencers of Health Screening 10/24/2024 COVID-19 Vaccine ( - 2023-2 5 season) 2025 Influenza Vaccine (#1) 2025 Cholesterol Screening (Lipid Panel) 10/24/2029 10/24/2024 HIB Vaccines Aged Out No longer eligi [...] on patient's age to complete this topic MMR Vaccines Aged Out No longer eligi ble based on patient's age to complete this topic Meningococcal ACWY Vaccine Aged Out N o longer eligible based on patient's age to complete this topic Meningococcal B Vaccine Aged Out No l onger eligible based on patient's age to complete this topic RSV Immunization Patients Un simone 20 months Aged Out No longer eligible b ased on patient's age to complete this topic Varicella Vaccines Aged Out No longer eligible based on patient's age to complete this topic Procedures Procedure Name Priority Date/Time Associated Diagnosis Comments LIPID PANEL WITH REFLEX TO DIRECT LDL Routine 10/24/2024 8:01 AM EDT Essential (primary) hypertension Unspecified dementia, unspecified severity, without behavioral disturbance, psychotic disturbance, mood disturbance, and anxiety ([facility] V24, [facility] V28) Schizophrenia, unspecified ([facility] V24, [facility] V28) Multiple myeloma not having achieved remission ([facility] V24, [facility] V28) from Last 3 Months or Most Recently Relevant to Health Maintenance Results * (ABNORMAL) Lipid panel with reflex to direct LDL (10/24/2024 8:01 AM EDT) Cholesterol 215(H) 0 - 200 mg/dL LAB CHEMISTRY METHOD 10/24/2024 11:19 AM [facility] Triglycerides 149 0 - 150 mg/dL LAB CHEMISTRY METHOD 10/24/2024 11:19 AM [facility] HDL 58 >=40 mg/dL LAB CHEMISTRY METHOD 10/24/2024 11:19 AM [facility] LDL Calculated 127(H) 0 - 100 mg/dL LAB CHEMISTRY METHOD 10/24/2024 11:19 AM [facility] VLDL Cholesterol Christian 29.8 mg/dL LAB CHEMISTRY METHOD 10/24/2024 11:19 AM [facility] Non HDL Chol. (LDL+VLDL) 157(H) <145 mg/dL LAB CHEMISTRY METHOD 10/24/2024 11:19 AM [facility] Chol/HDL Ratio 3.7 0.0 - 4.4 LAB CHEMISTRY METHOD 10/24/2024 11:19 AM [facility] Blood Venous blood specimen / Unknown Venipuncture / Unknown 10/24/2024 8:01 AM EDT 10/24/2024 10:42 AM EDT Damaso Abreu MD LAB BLOOD ORDERABLES Final Resul t [facility] [address] [place] [address], from Last 3 Months or Most Recently Relevant to Health Maintenance Insurance [place] [facility] Subscriber Plan / Payer (Ef fective 2024-2025) Name:Jeanne Younger Relation to Subscriber:Self Name:Jeanne Younger Payer ID:[id number] Group ID:Not on file Type:Not on file Address: [address] [place] [address] Care Teams Punch Molder Relationship Specialty Start Date End Date Damaso Abreu MD [address] [place] [phone] PCP - General Family Medicine 10/24/24
--- OUTSIDE RECORDS SUMMARY | 2025-05-28 17:00 | XMS_ITS | Patient Health Record ---
Author Organization [facility] Address [address] [place] [address] Care Team Providers Care Lead Relay Tester Name Role Phone Sonido Evans Jr Reason For Referral No Information Plan Of Treatment No Information
== END 2025-05-28 14:01 | disposition home or self-care (01) ==
LOC: HO.HKA 13:38
PROVIDERS: Visit Provider Internal Medicine Hypertension Specialist
DX: I12.9 Hypertensive chronic kidney disease with stage 1 through stage 4 chronic kidney disease, or unspecified chronic kidney disease (principal); N18.9 Chronic kidney disease, unspecified; D64.9 Anemia, unspecified; C90.00 Multiple myeloma not having achieved remission
CPT/HCPCS: 99214

== ENCOUNTER → 2025-05-28 13:37 | Outpatient (BNVA) | payer OTHER, SELFPAY | PROVIDERS: Visit Provider Internal Medicine Hypertension Specialist | DX: I10 Essential (primary) hypertension (principal); C90.00 Multiple myeloma not having achieved remission; D64.9 Anemia, unspecified; N18.9 Chronic kidney disease, unspecified | CPT/HCPCS: 99212 ==

== ENCOUNTER 2025-07-01 21:04 | Inpatient (IN) | payer OTHER, SELFPAY ==
--- NOTE | 2025-07-01 | ECG_ITS ---
Test Reason : SEPSIS Blood Pressure : */* mmHG Vent. Rate : 91 BPM Atrial Rate : 91 BPM P-R Int : 170 ms QRS Dur : 100 ms QT Int : 384 ms P-R-T Axes : 24 -44 53 degrees QTcB Int : 472 ms Normal sinus rhythm Left axis deviation Incomplete right bundle branch block Possible Lateral infarct , age undetermined Abnormal ECG When compared with ECG of 06-Aug-2024 10:30, Borderline criteria for Lateral infarct are now Present Referred By: Bia Machado Electronically Signed By: Ezequiel Rivera
--- NOTE | ~2025-07-01 | US_ITS ---
EXAMINATION: US TRIPLEX UPPER EXTREMITY, LEFT CLINICAL INFORMATION: Left upper extremity swelling COMPARISON: None available. TECHNIQUE: Color-flow triplex imaging with spectral analysis and compression Doppler was performed on the left upper extremity. FINDINGS: Exam limited by immobility and altered mental status resolving in limited patient participation. The basilic, mid and distal radial, and ulnar veins were not visualized. The left internal jugular, subclavian, and axillary veins are patent and free of thrombus. The imaged segment of the left brachiocephalic vein is patent. Spectral doppler waveforms are normal. The brachial, cephalic, proximal radial veins are patent and compressible. US/US venous duplex UE LT IMPRESSION: No evidence of deep venous thrombosis involving the left upper extremity. Limited exam, as noted above. Electronically signed by: Pj Adams MD 07/02/2025 10:20 AM [facility]
--- NOTE | ~2025-07-01 | XR_ITS ---
CLINICAL HISTORY: cough, wheezingm hx multiple myeloma Exam: AP portable chest x-ray. Comparison: August 05, 2024. Findings: Lungs are well inflated. Cardiac silhouette is mildly enlarged with left ventricular prominence. Central interstitial markings are prominent with bilateral perihilar bronchial wall thickening. No dense area of consolidation. Question tiny right pleural effusion. Impression: Perihilar edema versus bronchitis/bronchiolitis. This document has been electronically signed by: Devonte Beckham MD on 07/01/2025 22:20:24
[2025-07-01 21:13] VITALS: BP 116/58; BP 94/63; PULSE 93; PULSE 97; RESP 16; TEMP 36.9; O2SAT 95; O2SAT 96; BMI 35.3
[2025-07-01 21:35] VITALS: BP 103/65; PULSE 97; RESP 20; TEMP 37.4; O2SAT 97
--- NOTE | 2025-07-01 21:47 | PC.NURSE ---
family at bedside. relayed that pt was brought from [facility]. had seen her last Sunday and nursing staff reported she had not been wanting to eat/get oob. when granddaughter went there pt had meal with her and was up and walking. today granddaughter went and concerned for pt not wanting to eat/get oob; increased weakness. pt is confused at baseline however usually engages in some conversation with family, today granddaughter believes she is not responding appropriately. during triage, carpenter mate Mike at bedside, pt did respond well, oriented to self, stated she has been sick and coughing, was unable to tell me where she was/date/time. vitals as documented. labs and sars swab obtained. iv established to LFA. Dr. Machado made aware of situation, 1L IV bolus ordered and infusing. CXR at this time. call lenz within reach.
[2025-07-01 21:53] LABS: Hematocrit 34.2 % (37.0-47.0); Hemoglobin 10.1 g/dl (12.0-16.0); Mean Corpuscular HGB Conc 29.5 g/dl (31.0-35.0); Mean Corpuscular Hemoglobin 27.1 pg (27.0-33.0); Mean Corpuscular Volume 91.7 fL (80.0-98.0); NRBC Abs Auto 0.000 X10*3/uL (0.0-0.012); NRBC Pct Auto 0.0 /100WBC (0.0-0.2); Platelet Count 306 X10*3/uL (160-400); Red Blood Count 3.73 X10*6/uL (4.20-5.50); White Blood Count 5.5 X10*3/uL (4.8-10.8)
[2025-07-01 21:59] VITALS: BP 103/68; PULSE 94; RESP 19; TEMP 36.7; O2SAT 100
[2025-07-01 22:02] VITALS: PULSE 95; O2SAT 97
[2025-07-01 22:15] LABS: Resp Syncy Virus RNA Qual PCR NEGATIVE (Negative); SARS COV2 PCR INHOUSE NEGATIVE (Negative)
[2025-07-01 22:20] LABS: Neutrophils Percent Manual 55 % (45-73)
[2025-07-01 22:21] LABS: Band Neutrophils Percent 24 % (3-5); Basophils Abs Manual 0.1 X10*3/uL (0.0-0.2); Basophils Percent Manual 1 % (0-2); Lymphocytes Absolute Manual 0.8 X10*3/uL (1.2-4.9); Lymphocytes Percent Manual 15 % (20-40); Monocytes Absolute Manual 0.3 X10*3/uL (0.1-1.2); Monocytes Percent Manual 5 % (2-11); Neutrophils Absolute Manual 4.3 X10*3/uL (2.0-8.3)
[2025-07-01 22:22] LABS: RBC Morphology NORMAL
[2025-07-01 22:33] LABS: Alanine Aminotransferase < 6 U/L (0-31); Albumin Level 1.6 g/dL (3.5-5.0); Alkaline Phosphatase 49 U/L (39-117); Anion Gap 5 (12-20); Aspartate Amino Transferase 14 U/L (5-31); Blood Urea Nitrogen 16 mg/dL (9-16); Calcium 4.3 mg/dL (8.4-10.2); Carbon Dioxide 12 mmol/L (22-29); Chloride 132 mmol/L (96-108); Creatinine Clr Calc Pharmacy 62.8; Estimated Glomerular Filt Rate > 60; Magnesium 1.1 mg/dL (1.6-2.6); Potassium 2.2 mmol/L (3.3-5.1); Sodium 147 mmol/L (135-145); Total Protein 3.3 g/dL (6.5-8.0)
[2025-07-01] MEDS: Calcium Gluconate/NaCl,Iso-Osm 2 GM/100 ML PLAST..BAG IV (22:49)
[2025-07-01] MEDS: Magnesium Sulfate/H2O 2 GM/50 ML PIGGYBACK IV (22:52)
[2025-07-01] MEDS: cefEPime HCl/D5W 2 GM/50 ML PIGGYBACK IV (22:52)
[2025-07-01] MEDS: Potassium Chloride/H20 10 MEQ/100 ML PIGGYBACK 100 MEQ IV ×2 (22:52→23:54)
--- OUTSIDE RECORDS SUMMARY | 2025-07-01 22:55 | XMS_ITS | Encounter Summary ---
Author Organization [employer] [facility] Address [address] [facility] [address] [place] [address] Care Team Providers Care Delivery Rep Name Role Phone Unavailable Primary Care Provider [...]
--- OUTSIDE RECORDS SUMMARY | 2025-07-01 22:55 | XMS_ITS | Encounter Summary ---
Author Organization [employer] Address [address] [place] [address] Care Team Providers Care Registered Nurse Surgical Services Name Role Phone Damaso Abreu MD Primary Care Provider [phone] Encounter Details Date Type Department Care Team (Late st Contact Info) Description 10/24/2024 Lab Requisition [facility] - Main Lab [address] [facility] [address] [place] [address] Damaso Abreu MD [address] [place] [address] [address] [place], [address] Essential (primary) hypertension; Unspecified dementia, unspecified [...] CBC auto differential (10/24/2024 8:01 AM EDT) [facility] WBC 3.9(L) 4.8 - 10.8 K/[facility] LAB HEMETOLOGY METHOD 10/24/2024 10:56 AM EDT [facility] RBC 3.40(L) 3.80 - 4.80 /[facility] LAB HEMETOLOGY METHOD 10/24/2024 10:56 AM [facility] Hemoglobin 10.0(L) 11.5 - 16.0 g/dL LAB HEMETOLOGY METHOD 10/24/2024 10:56 AM [facility] Hematocrit 33.2(L) 35.0 - 47.0 % LAB HEMETOLOGY METHOD 10/24/2024 10:56 AM [facility] MCV 97.9 79.0 - 98.0 FL LAB HEMETOLOGY METHOD 10/24/2024 10:56 AM [facility] MCH 29.5 27.0 - 32.0 pcg LAB HEMETOLOGY METHOD 10/24/2024 10:56 AM [facility] MCHC 30.1(L) 32.0 - 37.0 g/dL LAB HEMETOLOGY METHOD 10/24/2024 10:56 AM [facility] RDW 15.4(H) 11.0 - 15.0 % LAB HEMETOLOGY METHOD 10/24/2024 10:56 AM [facility] Platelets 131 130 - 400 K/mcL LAB HEMETOLOGY METHOD 10/24/2024 10:56 AM [facility] MPV 11.8(H) 7.0 - 11.0 FL LAB HEMETOLOGY METHOD 10/24/2024 10:56 AM [facility] NRBC 0.0 <1.0 % LAB HEMETOLOGY METHOD 10/24/2024 10:56 AM [facility] NRBC Absolute 0.00 <0.10 K/mcL LAB HEMETOLOGY METHOD 10/24/2024 10:56 AM [facility] Neutrophils Relative 64.6 % LAB HEMETOLOGY METHOD 10/24/2024 10:56 AM [facility] Lymphocytes Relative 18.8 % LAB HEMETOLOGY METHOD 10/24/2024 10:56 AM [facility] Monocytes Relative 8.0 % LAB HEMETOLOGY METHOD 10/24/2024 10:56 AM [facility] Eosinophils Relative 7.0 % LAB HEMETOLOGY METHOD 10/24/2024 10:56 AM [facility] Basophils Relative 0.8 % LAB HEMETOLOGY METHOD 10/24/2024 10:56 AM [facility] Immature Granulocytes Relative 0.8 % LAB HEMETOLOGY METHOD 10/24/2024 10:56 AM [facility] Neutrophils Absolute 2.51 1.50 - 7.00 K/mcL LAB HEMETOLOGY METHOD 10/24/2024 10:56 AM [facility] Lymphocytes Absolute 0.73(L) 1.00 - 5.00 K/mcL LAB HEMETOLOGY METHOD 10/24/2024 10:56 AM [facility] Monocytes Absolute 0.31 0.20 - 1.00 K/mcL LAB HEMETOLOGY METHOD 10/24/2024 10:56 AM [facility] Eosinophils Absolute 0.27 0.00 - 0.50 K/mcL LAB HEMETOLOGY METHOD 10/24/2024 10:56 AM [facility] Basophils Absolute 0.03 0.00 - 0.20 K/mcL LAB HEMETOLOGY METHOD 10/24/2024 10:56 AM [facility] Immature Granulocytes Absolute 0.03 0.00 - 0.03 K/mcL LAB HEMETOLOGY METHOD 10/24/2024 10:56 AM [facility] Blood Venous blood specimen / Unknown Venipuncture / Unknown 10/24/2024 8:01 AM EDT 10/24/2024 10:42 AM EDT us Damaso Abreu MD LAB BLOOD ORDERABLES Final Resul t Performing Organization Address [facility]/ZIP Co de Phone Number [facility] [address] [place] [address], [place] [phone] * Hemoglobin A1c (10/24/2024 8:01 AM EDT) Pathologist [facility] Hemoglobin A1C 4.8 <6.5 % LAB CHEMISTRY METHOD 10/24/2024 8:43 PM EDT [facility] Mean Bld Glu Estim. 91 mg/dL LAB CHEMISTRY METHOD 10/24/2024 8:43 PM EDT [facility] Blood Venous blood specimen / Unknown Venipuncture / Unknown 10/24/2024 8:01 AM EDT 10/24/2024 10:42 AM EDT Damaso Abreu MD LAB BLOOD ORDERABLES Final Resul t Performing Organization Address [facility]/ZIP Co de Phone Number [facility] [address] [place] [address], [place] [phone] * (ABNORMAL) Lipid panel with reflex to direct LDL (10/24/2024 8:01 AM EDT) [facility] Cholesterol 215(H) 0 - 200 mg/dL LAB CHEMISTRY METHOD 10/24/2024 11:19 AM EDT [facility] Triglycerides 149 0 - 150 mg/dL LAB CHEMISTRY METHOD 10/24/2024 11:19 AM EDT [facility] HDL 58 >=40 mg/dL LAB CHEMISTRY METHOD 10/24/2024 11:19 AM EDT [facility] LDL Calculated 127(H) 0 - 100 mg/dL LAB CHEMISTRY METHOD 10/24/2024 11:19 AM EDT [facility] VLDL Cholesterol Christian 29.8 mg/dL LAB CHEMISTRY METHOD 10/24/2024 11:19 AM EDT [facility] Non HDL Chol. (LDL+VLDL) 157(H) <145 mg/dL LAB CHEMISTRY METHOD 10/24/2024 11:19 AM [facility] Chol/HDL Ratio 3.7 0.0 - 4.4 LAB CHEMISTRY METHOD 10/24/2024 11:19 AM [facility] Blood Venous blood specimen / Unknown Venipuncture / Unknown 10/24/2024 8:01 AM EDT 10/24/2024 10:42 AM EDT us Damaso Abreu MD LAB BLOOD ORDERABLES Final Resul t [facility] [address] [place] [address], * (ABNORMAL) Comprehensive metabolic panel (10/24/2024 8:01 AM EDT) Sodium 142 133 - 145 mmol/L LAB CHEMISTRY METHOD 10/24/2024 11:19 AM [facility] Potassium 3.7 3.5 - 5.5 mmol/L LAB CHEMISTRY METHOD 10/24/2024 11:19 AM [facility] Chloride 107 96 - 110 mmol/L LAB CHEMISTRY METHOD 10/24/2024 11:19 AM [facility] CO2 28 21 - 32 mmol/L LAB CHEMISTRY METHOD 10/24/2024 11:19 AM [facility] Anion Gap 7 3 - 11 LAB CHEMISTRY METHOD 10/24/2024 11:19 AM [facility] Glucose 107(H) 70 - 100 mg/dL LAB CHEMISTRY METHOD 10/24/2024 11:19 AM [facility] BUN 17 5 - 25 mg/dL LAB CHEMISTRY METHOD 10/24/2024 11:19 AM [facility] Creatinine 0.95 0.50 - 1.10 mg/dL LAB CHEMISTRY METHOD 10/24/2024 11:19 AM [facility] eGFR 62 >=60 mL/min/1. 73m2 LAB CHEMISTRY METHOD 10/24/2024 11:19 AM [facility] Comment:Calculation based on the Chronic Kidney Disease Epidemiology Collaboration (CKD-EPI) equation refit without adjustment for race. BUN/Creatinine Ratio 17.9 LAB CHEMISTRY METHOD 10/24/2024 11:19 AM [facility] Calcium 8.1(L) 8.5 - 10.5 mg/dL LAB CHEMISTRY METHOD 10/24/2024 11:19 AM [facility] AST (SGOT) 17 10 - 42 unit/L LAB CHEMISTRY METHOD 10/24/2024 11:19 AM [facility] ALT (SGPT) 25 10 - 60 unit/L LAB CHEMISTRY METHOD 10/24/2024 11:19 AM [facility] Alkaline Phosphatase 82 42 - 121 unit/L LAB CHEMISTRY METHOD 10/24/2024 11:19 AM [facility] Total Protein 6.1 6.0 - 8.0 g/dL LAB CHEMISTRY METHOD 10/24/2024 11:19 AM [facility] Albumin 2.9(L) 3.2 - 5.0 g/dL LAB CHEMISTRY METHOD 10/24/2024 11:19 AM [facility] Total Bilirubin 0.3 0.0 - 1.4 mg/dL LAB CHEMISTRY METHOD 10/24/2024 11:19 AM [facility] Blood Venous blood specimen / Unknown Venipuncture / Unknown 10/24/2024 8:01 AM EDT 10/24/2024 10:42 AM EDT us Damaso Abreu MD LAB BLOOD ORDERABLES Final Resul t [facility] [address] [place] [address], documented in this encounter Visit Diagnoses Diagnosis Essential (primary) hypertension Unspecified essential hypertension Unspecified dementia, unspecified severity, without behavioral disturbance, psychotic disturbance, mood disturbance, and anxiety ([facility] V24, [facility] V28) Schizophrenia, unspecified ([facility] V24, [facility] V28) Multiple myeloma not having achieved remission ([facility] V24, [facility] V28) documented in this encounter Care Teams Registered Nurse Surgical Services Relationship Specialty Start Date End Date Damaso Abreu MD [address] [place] [phone] PCP - General Family Medicine 10/24/24 documented as of this encounter
--- OUTSIDE RECORDS SUMMARY | 2025-07-01 22:55 | XMS_ITS | Clinical Summary ---
Author Organization [facility] Address [address] [facility] [address] [place] [address] Phone Care Team Providers Care Document Advisor Name Role Phone Rupert Orellana MD Primary Care Provider [phone] Allergies No known active allergies Medications Omeprazole [...] patient's age to complete this topic Insurance [facility] ([id number]) Care Teams Document Advisor Relationship Specialty Start Date End Date Rupert Orellana MD PCP - General 05/20/19
[2025-07-01 22:56] VITALS: BP 107/61; PULSE 92; RESP 20; O2SAT 99
--- OUTSIDE RECORDS SUMMARY | 2025-07-01 22:56 | XMS_ITS | Encounter Summary ---
Author Organization [employer] Address [address] [place] [address] Care Team Providers Care Roofer Helper Vinyl Coating Name Role Phone Damaso Abreu MD Primary Care Provider [phone] Encounter Details Date Type Department Care Team (Late st Contact Info) Description 10/28/2024 Lab Requisition [facility] - Main Lab [address] [facility] [place] [address] Damaso Abreu MD [address] [place] [address] [address] [place], [phone] Essential (primary) hypertension; Unspecified dementia, unspecified [...] V28) Multiple myeloma not having achieved remission ([facility] V24, [facility] V28) BASIC METABOLIC PANEL Routine 10/29/2024 6:44 AM EDT Essential (primary) hypertension Unspecified dementia, unspecified severity, without behavioral disturbance, psychotic disturbance, mood disturbance, and anxiety ([facility]/HCC V24, [facility]/HCC V28) Multiple myeloma not having achieved remission ([facility] V24, [facility] V28) documented in this encounter Results * (ABNORMAL) CBC auto differential (10/29/2024 6:44 AM EDT) Pathologist [facility] WBC 3.5(L) 4.8 - 10.8 K/mcL LAB HEMETOLOGY METHOD 10/29/2024 11:31 AM [facility] RBC 3.40(L) 3.80 - 4.80 M/mcL LAB HEMETOLOGY METHOD 10/29/2024 11:31 AM [facility] Hemoglobin 10.0(L) 11.5 - 16.0 g/dL LAB HEMETOLOGY METHOD 10/29/2024 11:31 AM [facility] Hematocrit 32.4(L) 35.0 - 47.0 % LAB HEMETOLOGY METHOD 10/29/2024 11:31 AM [facility] MCV 94.7 79.0 - 98.0 FL LAB HEMETOLOGY METHOD 10/29/2024 11:31 AM [facility] MCH 29.2 27.0 - 32.0 pcg LAB HEMETOLOGY METHOD 10/29/2024 11:31 AM [facility] MCHC 30.9(L) 32.0 - 37.0 g/dL LAB HEMETOLOGY METHOD 10/29/2024 11:31 AM [facility] RDW 15.6(H) 11.0 - 15.0 % LAB HEMETOLOGY METHOD 10/29/2024 11:31 AM [facility] Platelets 134 130 - 400 K/mcL LAB HEMETOLOGY METHOD 10/29/2024 11:31 AM [facility] MPV 11.6(H) 7.0 - 11.0 FL LAB HEMETOLOGY METHOD 10/29/2024 11:31 AM [facility] NRBC 0.0 <1.0 % LAB HEMETOLOGY METHOD 10/29/2024 11:31 AM [facility] NRBC Absolute 0.00 <0.10 K/mcL LAB HEMETOLOGY METHOD 10/29/2024 11:31 AM [facility] Neutrophils Relative 45.6 % LAB HEMETOLOGY METHOD 10/29/2024 11:31 AM [facility] Lymphocytes Relative 26.1 % LAB HEMETOLOGY METHOD 10/29/2024 11:31 AM [facility] Monocytes Relative 15.6 % LAB HEMETOLOGY METHOD 10/29/2024 11:31 AM [facility] Eosinophils Relative 10.5 % LAB HEMETOLOGY METHOD 10/29/2024 11:31 AM [facility] Basophils Relative 1.1 % LAB HEMETOLOGY METHOD 10/29/2024 11:31 AM [facility] Immature Granulocytes Relative 1.1 % LAB HEMETOLOGY METHOD 10/29/2024 11:31 AM [facility] Neutrophils Absolute 1.60 1.50 - 7.00 K/mcL LAB HEMETOLOGY METHOD 10/29/2024 11:31 AM [facility] Lymphocytes Absolute 0.92(L) 1.00 - 5.00 K/mcL LAB HEMETOLOGY METHOD 10/29/2024 11:31 AM [facility] Monocytes Absolute 0.55 0.20 - 1.00 K/mcL LAB HEMETOLOGY METHOD 10/29/2024 11:31 AM EDT [facility] Eosinophils Absolute 0.37 0.00 - 0.50 K/mcL LAB HEMETOLOGY METHOD 10/29/2024 11:31 AM EDT [facility] Basophils Absolute 0.04 0.00 - 0.20 K/[facility] LAB HEMETOLOGY METHOD 10/29/2024 11:31 AM EDT [facility] Immature Granulocytes Absolute 0.04(H) 0.00 - 0.03 K/[facility] LAB HEMETOLOGY METHOD 10/29/2024 11:31 AM EDT [facility] Blood Venous blood specimen / Unknown Venipuncture / Unknown 10/29/2024 6:44 AM EDT 10/29/2024 11:15 AM EDT us Damaso Abreu MD LAB BLOOD ORDERABLES Final Resul t [facility] [address] [place] [address], [place] [phone] * (ABNORMAL) Basic metabolic panel (10/29/2024 6:44 AM EDT) Sodium 143 133 - 145 mmol/L LAB CHEMISTRY METHOD 10/29/2024 12:38 PM [facility] Potassium 4.0 3.5 - 5.5 mmol/L LAB CHEMISTRY METHOD 10/29/2024 12:38 PM [facility] Chloride 111(H) 96 - 110 mmol/L LAB CHEMISTRY METHOD 10/29/2024 12:38 PM [facility] CO2 25 21 - 32 mmol/L LAB CHEMISTRY METHOD 10/29/2024 12:38 PM [facility] Anion Gap 7 3 - 11 LAB CHEMISTRY METHOD 10/29/2024 12:38 PM [facility] Glucose 77 70 - 100 mg/dL LAB CHEMISTRY METHOD 10/29/2024 12:38 PM EDT [facility] BUN 19 5 - 25 mg/dL LAB CHEMISTRY METHOD 10/29/2024 12:38 PM EDT [facility] Creatinine 0.82 0.50 - 1.10 mg/dL LAB CHEMISTRY METHOD 10/29/2024 12:38 PM EDT [facility] LAB eGFR 74 >=60 mL/min/1. 73m2 LAB CHEMISTRY METHOD 10/29/2024 12:38 PM EDT [facility] Comment:Calculation based on the Chronic Kidney Disease Epidemiology Collaboration (CKD-EPI) equation refit without adjustment for race. BUN/Creatinine Ratio 23.2 LAB CHEMISTRY METHOD 10/29/2024 12:38 PM EDT [facility] Calcium 7.7(L) 8.5 - 10.5 mg/dL LAB CHEMISTRY METHOD 10/29/2024 12:38 PM EDT [facility] Blood Venous blood specimen / Unknown Venipuncture / Unknown 10/29/2024 6:44 AM EDT 10/29/2024 11:15 AM EDT us Damaso Abreu MD LAB BLOOD ORDERABLES Final Resul t [facility] [address] [place] [address], documented in this encounter Visit Diagnoses Diagnosis Essential (primary) hypertension Unspecified essential hypertension Unspecified dementia, unspecified severity, without behavioral disturbance, psychotic disturbance, mood disturbance, and anxiety (CMS/HCC V24, CMS/HCC V28) Multiple myeloma not having achieved remission (CMS/HCC V24, CMS/HCC V28) documented in this encounter Care Teams Roofer Helper Vinyl Coating Relationship Specialty Start Date End Date Damaso Abreu MD [address] [place] [phone] PCP - General Family Medicine 10/24/24 documented as of this encounter
--- OUTSIDE RECORDS SUMMARY | 2025-07-01 22:56 | XMS_ITS | Patient Health Record ---
Author Organization [facility] Address [address] [place] [address] Care Team Providers Care Artist Manager Name Role Phone Sonido Evans Jr [phone] Reason For Referral No Information Plan Of Treatment No Information
--- OUTSIDE RECORDS SUMMARY | 2025-07-01 22:56 | XMS_ITS | Encounter Summary ---
Author Organization [employer] Address [address] [place] [address] Care Team Providers Care Side Stapler Name Role Phone Damaso Abreu MD Primary Care Provider Encounter Details Date Type Department Care Team (Late st Contact Info) Description 11/04/2024 Lab Requisition [facility] - Main Lab [address] [facility] [place] [address] Damaso Abreu MD [address] [place] [address] [address] [place], [phone] Essential (primary) hypertension; Unspecified dementia, unspecified [...] V28) Multiple myeloma not having achieved remission ([facility] V24, [facility] V28) BASIC METABOLIC PANEL Routine 11/05/2024 6:10 AM EDT Essential (primary) hypertension Unspecified dementia, unspecified severity, without behavioral disturbance, psychotic disturbance, mood disturbance, and anxiety ([facility]/HCC V24, [facility] V28) Multiple myeloma not having achieved remission ([facility] V24, [facility] V28) documented in this encounter Results * (ABNORMAL) CBC auto differential (11/05/2024 6:10 AM EDT) WBC 3.0(L) 4.8 - 10.8 K/mcL LAB HEMETOLOGY METHOD 11/05/2024 12:07 PM [facility] RBC 3.40(L) 3.80 - 4.80 M/mcL LAB HEMETOLOGY METHOD 11/05/2024 12:07 PM [facility] Hemoglobin 9.9(L) 11.5 - 16.0 g/dL LAB HEMETOLOGY METHOD 11/05/2024 12:07 PM [facility] Hematocrit 32.5(L) 35.0 - 47.0 % LAB HEMETOLOGY METHOD 11/05/2024 12:07 PM [facility] LAB MCV 96.2 79.0 - 98.0 FL LAB HEMETOLOGY METHOD 11/05/2024 12:07 PM [facility] MCH 29.3 27.0 - 32.0 pcg LAB HEMETOLOGY METHOD 11/05/2024 12:07 PM [facility] MCHC 30.5(L) 32.0 - 37.0 g/dL LAB HEMETOLOGY METHOD 11/05/2024 12:07 PM [facility] RDW 15.7(H) 11.0 - 15.0 % LAB HEMETOLOGY METHOD 11/05/2024 12:07 PM [facility] Platelets 171 130 - 400 K/mcL LAB HEMETOLOGY METHOD 11/05/2024 12:07 PM [facility] MPV 10.7 7.0 - 11.0 FL LAB HEMETOLOGY METHOD 11/05/2024 12:07 PM [facility] NRBC 0.0 <1.0 % LAB HEMETOLOGY METHOD 11/05/2024 12:07 PM [facility] NRBC Absolute 0.00 <0.10 K/mcL LAB HEMETOLOGY METHOD 11/05/2024 12:07 PM [facility] Neutrophils Relative 33.9 % LAB HEMETOLOGY METHOD 11/05/2024 12:07 PM [facility] Lymphocytes Relative 38.0 % LAB HEMETOLOGY METHOD 11/05/2024 12:07 PM [facility] Monocytes Relative 15.8 % LAB HEMETOLOGY METHOD 11/05/2024 12:07 PM [facility] Eosinophils Relative 9.6 % LAB HEMETOLOGY METHOD 11/05/2024 12:07 PM [facility] Basophils Relative 2.0 % LAB HEMETOLOGY METHOD 11/05/2024 12:07 PM [facility] Immature Granulocytes Relative 0.7 % LAB HEMETOLOGY METHOD 11/05/2024 12:07 PM [facility] Neutrophils Absolute 1.03(L) 1.50 - 7.00 K/mcL LAB HEMETOLOGY METHOD 11/05/2024 12:07 PM [facility] Lymphocytes Absolute 1.15 1.00 - 5.00 K/mcL LAB HEMETOLOGY METHOD 11/05/2024 12:07 PM [facility] Monocytes Absolute 0.48 0.20 - 1.00 K/mcL LAB HEMETOLOGY METHOD 11/05/2024 12:07 PM EDT [facility] LAB Eosinophils Absolute 0.29 0.00 - 0.50 K/[facility] LAB HEMETOLOGY METHOD 11/05/2024 12:07 PM EDT [facility] Basophils Absolute 0.06 0.00 - 0.20 K/[facility] LAB HEMETOLOGY METHOD 11/05/2024 12:07 PM EDT [facility] Immature Granulocytes Absolute 0.02 0.00 - 0.03 K/[facility] LAB HEMETOLOGY METHOD 11/05/2024 12:07 PM EDT [facility] Blood Venous blood specimen / Unknown Venipuncture / Unknown 11/05/2024 6:10 AM EDT 11/05/2024 11:31 AM EDT us Damaso Abreu MD LAB BLOOD ORDERABLES Final Resul t [facility] [address] [place] [address], [place] [phone] * (ABNORMAL) Basic metabolic panel (11/05/2024 6:10 AM EDT) Sodium 141 133 - 145 mmol/L LAB CHEMISTRY METHOD 11/05/2024 12:20 PM [facility] Potassium 3.9 3.5 - 5.5 mmol/L LAB CHEMISTRY METHOD 11/05/2024 12:20 PM [facility] Chloride 108 96 - 110 mmol/L LAB CHEMISTRY METHOD 11/05/2024 12:20 PM [facility] CO2 29 21 - 32 mmol/L LAB CHEMISTRY METHOD 11/05/2024 12:20 PM [facility] Anion Gap 4 3 - 11 LAB CHEMISTRY METHOD 11/05/2024 12:20 PM [facility] Glucose 70 70 - 100 mg/dL LAB CHEMISTRY METHOD 11/05/2024 12:20 PM [facility] BUN 18 5 - 25 mg/dL LAB CHEMISTRY METHOD 11/05/2024 12:20 PM EDT [facility] Creatinine 1.06 0.50 - 1.10 mg/dL LAB CHEMISTRY METHOD 11/05/2024 12:20 PM EDT [facility] LAB eGFR 54(L) >=60 mL/min/1. 73m2 LAB CHEMISTRY METHOD 11/05/2024 12:20 PM EDT [facility] Comment:Calculation based on the Chronic Kidney Disease Epidemiology Collaboration (CKD-EPI) equation refit without adjustment for race. BUN/Creatinine Ratio 17.0 LAB CHEMISTRY METHOD 11/05/2024 12:20 PM EDT [facility] Calcium 8.3(L) 8.5 - 10.5 mg/dL LAB CHEMISTRY METHOD 11/05/2024 12:20 PM EDT [facility] Blood Venous blood specimen / Unknown Venipuncture / Unknown 11/05/2024 6:10 AM EDT 11/05/2024 11:30 AM EDT us Damaso Abreu MD LAB BLOOD ORDERABLES Final Resul t [facility] [address] [place] [address], documented in this encounter Visit Diagnoses Diagnosis Essential (primary) hypertension Unspecified essential hypertension Unspecified dementia, unspecified severity, without behavioral disturbance, psychotic disturbance, mood disturbance, and anxiety (CMS/HCC V24, CMS/HCC V28) Multiple myeloma not having achieved remission (CMS/HCC V24, CMS/HCC V28) documented in this encounter Care Teams Side Stapler Relationship Specialty Start Date End Date Damaso Abreu MD [address] [place] [phone] PCP - General Family Medicine 10/24/24 documented as of this encounter
--- OUTSIDE RECORDS SUMMARY | 2025-07-01 22:56 | XMS_ITS | Encounter Summary ---
Author Organization [employer] Address [address] [place] [address] Care Team Providers Care Tester/Lift Trucker Name Role Phone Damaso Abreu MD Primary Care Provider [phone] Encounter Details Date Type Department Care Team (Late st Contact Info) Description 11/07/[address] [facility] - Main Lab 299 [facility] [place] [address] Damaso Abreu MD [address] [place] [address] [address] [place], [phone] Chronic obstructive pulmonary disease, unspecified (CMS/HCC [...] Hold for add-ons. 11/07/2024 11:01 AM EDT [facility] Comment:Auto resulted. Blood Venous blood specimen / Unknown Venipuncture / Unknown 11/07/2024 7:04 AM EDT 11/07/2024 9:15 AM EDT us Damaso Abreu MD LAB BLOOD ORDERABLES Final Resul t [facility] [address] [place] [address], [place] [phone] * (ABNORMAL) CBC auto differential (11/07/2024 7:04 AM EDT) [facility] WBC 3.0(L) 4.8 - 10.8 K/mcL LAB HEMETOLOGY METHOD [facility] RBC 3.20(L) 3.80 - 4.80 M/mcL LAB HEMETOLOGY METHOD [facility] Hemoglobin 9.5(L) 11.5 - 16.0 g/dL LAB HEMETOLOGY METHOD 11/07/2024 9:40 AM [facility] LAB Hematocrit 31.2(L) 35.0 - 47.0 % LAB HEMETOLOGY METHOD 11/07/2024 9:40 AM [facility] LAB MCV 96.3 79.0 - 98.0 FL LAB HEMETOLOGY METHOD 11/07/2024 9:40 AM [facility] LAB MCH 29.3 27.0 - 32.0 pcg LAB HEMETOLOGY METHOD 11/07/2024 9:40 AM [facility] LAB MCHC 30.4(L) 32.0 - 37.0 g/dL LAB HEMETOLOGY METHOD 11/07/2024 9:40 AM [facility] RDW 15.4(H) 11.0 - 15.0 % LAB HEMETOLOGY METHOD 11/07/2024 9:40 AM [facility] Platelets 169 130 - 400 K/mcL LAB HEMETOLOGY METHOD 11/07/2024 9:40 AM [facility] MPV 10.3 7.0 - 11.0 FL LAB HEMETOLOGY METHOD 11/07/2024 9:40 AM [facility] NRBC 0.0 <1.0 % LAB HEMETOLOGY METHOD 11/07/2024 9:40 AM [facility] NRBC Absolute 0.00 <0.10 K/mcL LAB HEMETOLOGY METHOD 11/07/2024 9:40 AM [facility] Neutrophils Relative 43.4 % LAB HEMETOLOGY METHOD 11/07/2024 9:40 AM [facility] Lymphocytes Relative 33.9 % LAB HEMETOLOGY METHOD 11/07/2024 9:40 AM [facility] Monocytes Relative 15.1 % LAB HEMETOLOGY METHOD 11/07/2024 9:40 AM [facility] Eosinophils Relative 5.3 % LAB HEMETOLOGY METHOD 11/07/2024 9:40 AM [facility] Basophils Relative 1.6 % LAB HEMETOLOGY METHOD 11/07/2024 9:40 AM [facility] Immature Granulocytes Relative 0.7 % LAB HEMETOLOGY METHOD 11/07/2024 9:40 AM [facility] Neutrophils Absolute 1.32(L) 1.50 - 7.00 K/mcL LAB HEMETOLOGY METHOD 11/07/2024 9:40 AM [facility] Lymphocytes Absolute 1.03 1.00 - 5.00 K/mcL LAB HEMETOLOGY METHOD 11/07/2024 9:40 AM [facility] Monocytes Absolute 0.46 0.20 - 1.00 K/mcL LAB HEMETOLOGY METHOD 11/07/2024 9:40 AM [facility] Eosinophils Absolute 0.16 0.00 - 0.50 K/mcL LAB HEMETOLOGY METHOD 11/07/2024 9:40 AM [facility] Basophils Absolute 0.05 0.00 - 0.20 K/mcL LAB HEMETOLOGY METHOD 11/07/2024 9:40 AM [facility] Immature Granulocytes Absolute 0.02 0.00 - 0.03 K/[facility] LAB HEMETOLOGY METHOD 11/07/2024 9:40 AM EDT [facility] Blood Venous blood specimen / Unknown Venipuncture / Unknown 11/07/2024 7:04 AM EDT 11/07/2024 9:15 AM EDT Damaso Abreu MD LAB BLOOD ORDERABLES Final Resul t [facility] [address] [place] [address], [place] [phone] * (ABNORMAL) Wbc count with absolute neutrophil (11/07/2024 7:04 AM EDT) WBC 3.0(L) 4.8 - 10.8 K/[facility] LAB HEMETOLOGY METHOD 11/07/2024 9:40 AM EDT [facility] Neutrophils Absolute 1.32(L) 1.50 - 7.00 K/[facility] LAB HEMETOLOGY METHOD 11/07/2024 9:40 AM EDT [facility] Neutrophils Relative 43.4 % LAB HEMETOLOGY METHOD 11/07/2024 9:40 AM EDT [facility] Blood Venous blood specimen / Unknown Venipuncture / Unknown 11/07/2024 7:04 AM EDT 11/07/2024 9:15 AM EDT Damaso Abreu MD LAB BLOOD ORDERABLES Final Resul t [facility] [address] [place] [address], [place] [phone] documented in this encounter Visit Diagnoses Diagnosis Chronic obstructive pulmonary disease, unspecified (CMS/HCC V24, CMS/HCC V28) Anemia, unspecified Unspecified dementia, unspecified severity, without behavioral disturbance, psychotic disturbance, mood disturbance, and anxiety (CMS/HCC V24, CMS/HCC V28) Neoplastic (malignant) related fatigue Schizophrenia, unspecified (CMS/HCC V24, CMS/HCC V28) documented in this encounter Care Teams Tester/Lift Trucker Relationship Specialty Start Date End Date Damaso Abreu MD [address] [place] [phone] PCP - General Family Medicine 10/24/24 documented as of this encounter
--- OUTSIDE RECORDS SUMMARY | 2025-07-01 22:56 | XMS_ITS | Clinical Summary ---
Author Organization [address] [facility] Address [address] [place] [address] Phone Care Team Providers Care Can Intake Worker Name Role Phone Damaso Abreu MD Primary Care Provider [phone] Social History Tobacco Use Types Packs/Day Years [...] Influencers of Health Screening 10/24/2024 COVID-19 Vaccine (1 - 2024-2 6 season) 2025 Influenza Vaccine (#1) 2025 Cholesterol [...] disturbance, psychotic disturbance, mood disturbance, and anxiety ([facility] V24, [facility] V28) Schizophrenia, unspecified ([facility] V24, [facility] V28) Multiple myeloma not having achieved remission ([facility] V24, [facility] V28) from Last 3 Months or Most Recently Relevant to Health Maintenance Results * (ABNORMAL) Lipid panel with reflex to direct LDL (10/24/2024 8:01 AM EDT) Cholesterol 215(H) 0 - 200 mg/dL LAB CHEMISTRY METHOD 10/24/2024 11:19 AM [facility] Triglycerides 149 0 - 150 mg/dL LAB CHEMISTRY METHOD 10/24/2024 11:19 AM [facility] HDL 58 >=40 mg/dL LAB CHEMISTRY METHOD 10/24/2024 11:19 AM [facility] LDL Calculated 127(H) 0 - 100 mg/dL LAB CHEMISTRY METHOD 10/24/2024 11:19 AM [facility] VLDL Cholesterol Christian 29.8 mg/dL LAB CHEMISTRY METHOD 10/24/2024 11:19 AM [facility] Non HDL Chol. (LDL+VLDL) 157(H) <145 mg/dL LAB CHEMISTRY METHOD 10/24/2024 11:19 AM [facility] Chol/HDL Ratio 3.7 0.0 - 4.4 LAB CHEMISTRY METHOD 10/24/2024 11:19 AM [facility] Blood Venous blood specimen / Unknown Venipuncture / Unknown 10/24/2024 8:01 AM EDT 10/24/2024 10:42 AM EDT Damaso Abreu MD LAB BLOOD ORDERABLES Final Resul t [facility] ([facility]) [facility] [address] [place] [address], from Last 3 Months or Most Recently Relevant to Health Maintenance Insurance [place] [facility] Member Subscriber Plan / Payer (Ef fective 2024-2025) Name:Jeanne Younger Relation to Subscriber:Self Name:Jeanne Younger Payer ID:[id number] Group ID:Not on file Type:Not on file Address: [address] [place] [address] Care Teams Can Intake Worker Relationship Specialty Start Date End Date Damaso Abreu MD [address] [place] [phone] PCP - General Family Medicine 10/24/24
--- OUTSIDE RECORDS SUMMARY | 2025-07-01 22:56 | XMS_ITS | Clinical Summary ---
Author Organization [email or web address] Address [address] [facility] [address] [place] [address] Care Team Providers Care Bridal Gown Fitter Name Role Phone Unavailable Primary Care Provider [...]
--- OUTSIDE RECORDS SUMMARY | 2025-07-01 22:56 | XMS_ITS | Encounter Summary ---
Author Organization [employer] Address [address] [place] [address] Care Team Providers Care Film Cutter Name Role Phone Damaso Abreu MD Primary Care Provider [phone] Encounter Details Date Type Department Care Team (Late st Contact Info) Description 11/11/2024 Lab Requisition [facility] - Main Lab [address] [facility] [place] [address] Damaso Abreu MD [address] [place] [address] [address] [place], [phone] Essential (primary) hypertension; Unspecified dementia, unspecified [...] V28) Multiple myeloma not having achieved remission ([facility] V24, [facility] V28) documented in this encounter Results * (ABNORMAL) CBC auto differential (11/12/2024 8:27 AM EDT) WBC 3.5(L) 4.8 - 10.8 K/mcL LAB HEMETOLOGY [facility] RBC 3.60(L) 3.80 - 4.80 M/mcL LAB HEMETOLOGY METHOD 11/12/2024 12:12 PM [facility] Hemoglobin 10.5(L) 11.5 - 16.0 g/dL LAB HEMETOLOGY METHOD 11/12/2024 12:12 PM [facility] LAB Hematocrit 34.0(L) 35.0 - 47.0 % LAB HEMETOLOGY METHOD 11/12/2024 12:12 PM [facility] MCV 95.0 79.0 - 98.0 FL LAB HEMETOLOGY METHOD 11/12/2024 12:12 PM [facility] LAB MCH 29.3 27.0 - 32.0 pcg LAB HEMETOLOGY METHOD 11/12/2024 12:12 PM [facility] LAB MCHC 30.9(L) 32.0 - 37.0 g/dL LAB HEMETOLOGY METHOD 11/12/2024 12:12 PM [facility] RDW 15.9(H) 11.0 - 15.0 % LAB HEMETOLOGY METHOD 11/12/2024 12:12 PM [facility] Platelets 195 130 - 400 K/mcL LAB HEMETOLOGY METHOD 11/12/2024 12:12 PM [facility] MPV 10.4 7.0 - 11.0 FL LAB HEMETOLOGY METHOD 11/12/2024 12:12 PM [facility] LAB NRBC 0.0 <1.0 % LAB HEMETOLOGY METHOD 11/12/2024 12:12 PM EDT [facility] NRBC Absolute 0.00 <0.10 K/mcL LAB HEMETOLOGY METHOD 11/12/2024 12:[facility] Neutrophils Relative 42.3 % LAB HEMETOLOGY METHOD 11/12/2024 12:[facility] Lymphocytes Relative 37.9 % LAB HEMETOLOGY METHOD 11/12/2024 12:12 PM EDT [facility] Monocytes Relative 12.3 % LAB HEMETOLOGY METHOD 11/12/2024 12:12 PM [facility] Eosinophils Relative 4.6 % LAB HEMETOLOGY METHOD 11/12/2024 12:[facility] Basophils Relative 2.3 % LAB HEMETOLOGY METHOD 11/12/2024 12:12 PM [facility] Immature Granulocytes Relative 0.6 % LAB HEMETOLOGY METHOD 11/12/2024 12:12 PM [facility] Neutrophils Absolute 1.49(L) 1.50 - 7.00 K/mcL LAB HEMETOLOGY METHOD 11/12/2024 12:12 PM [facility] Lymphocytes Absolute 1.33 1.00 - 5.00 K/mcL LAB HEMETOLOGY METHOD 11/12/2024 12:12 PM EDT [facility] Monocytes Absolute 0.43 0.20 - 1.00 K/mcL LAB HEMETOLOGY METHOD 11/12/2024 12:[facility] Eosinophils Absolute 0.16 0.00 - 0.50 K/mcL LAB HEMETOLOGY METHOD 11/12/2024 12:12 PM [facility] Basophils Absolute 0.08 0.00 - 0.20 K/mcL LAB HEMETOLOGY METHOD 11/12/2024 12:12 PM EDT [facility] Immature Granulocytes Absolute 0.02 0.00 - 0.03 K/mcL LAB HEMETOLOGY METHOD 11/12/2024 12:12 PM EDT [facility] Blood Venous blood specimen / Unknown Venipuncture / Unknown 11/12/2024 8:27 AM EDT 11/12/2024 11:18 AM EDT us Damaso Abreu MD LAB BLOOD ORDERABLES Final Resul t [facility] [address] [place] [address], documented in this encounter Visit Diagnoses Diagnosis Essential (primary) hypertension Unspecified essential hypertension Unspecified dementia, unspecified severity, without behavioral disturbance, psychotic disturbance, mood disturbance, and anxiety (CMS/HCC V24, [facility] V28) Multiple myeloma not having achieved remission (CMS/HCC V24, [facility] V28) documented in this encounter Care Teams Film Cutter Relationship Specialty Start Date End Date Damaso Abreu MD [address] [place] [phone] PCP - General Family Medicine 10/24/24 documented as of this encounter
--- OUTSIDE RECORDS SUMMARY | 2025-07-01 22:56 | XMS_ITS | Data Portability ---
Author Organization [employer], [facility] [employer] [facility] Address [address] [place] [address] Care Team Providers Care Biotech Production Specialist Name Role Phone ANGLEREGINARHONDA Primary Care Provider HIM CCA OTHER Assessment Encounter Date Assessment Date Assessment LastModified by Organization Details LastModified Time 03/22/2023 03/22/2023 I provided real -time medical direction via phone for this encounter, and was available for additional phone based assistance as needed. I have reviewed and agree with the Assessment and Plan as documented by the Morgue Technician. Patient/granddau ghter given the opportunity to ask questions. Advised to follow-up with the PCP as soon as possible otherwise if develops CP/severe SOB/turning blue/uncontrolle d n/v/d or black/bloody emesis or stool/ severe AMS/ syncope/ hi fever to call 911- verbalized understanding of instructions [email or web address] Not available 03/22/2023 19:34:22 08/05/2024 08/05/2024 I have reviewed and agree with the assessment and plan as documented by the bead picker. I provided real-time medical direction for this encounter and was immediately available to provide additional phone-based assistance as needed. History as noted in EMR and by bead picker. I would add / emphasize: Patient with [...] respiratory specimen 2022 023 [email or web address] 0 Main [facility], [address] [place] [address], [phone] 3 16:48:01 rapid flu (A+B) 2022 023 [email or web address] 0 Main [facility], [address] [place] [address], [phone] 3 16:48:01 Referral None recorded. Procedures None recorded. Surgeries None recorded. Imaging None recorded. Medication Orders cefuroxime axetil 500 mg tablet 2022 023 [id number], [address], [place], [id number], 3 16:47:04 Tylenol Extra Strength 500 mg tablet 2022 023 [facility] #[id number], [address], [place], [id number], 3 16:47:04 albuterol sulfate HFA 90 mcg/actuati on aerosol inhaler 2022 023 [facility] #[id number], [address], [place], [id number], 3 16:47:04 albuterol sulfate 2.5 mg/3 mL (0.083 %) solution for nebulizatio n 2022 023 [email or web address] 0 [facility] #[id number], [address], [place], [id number], 3 16:48:00 Patient TargetsNo targets recorded. Patient InstructionsNo instructions recorded. Reason for Referral None Reported. Results Created Date Observation Date Name Description Value Unit Range Abnormal Flag Note LastModifiedBy Organization Detail LastModifiedTime 03/22/2003/22/2023 rapid flu (A+B) Flu negati ve Not Available Main - [facility] ed [address] [place], [phone] 03/22/2023 16:47:19 03/22/20 23 03/22/2023 rapid SARS CoV 2 Ag, QL IA, respi rator y speci men rapid SARS CoV 2 Ag, QL IA, respiratory specimen negati ve Not Available [facility] - [facility] ed [address] [place] [address], [phone] 03/22/2023 16:47:11 Result Notes None recorded. Medical [...] Recorded Respiratory rate Body temperature Oxygen saturation Heart rate Systolic And Diastolic Provider Name and Address Organization Details Last Updated DateTime 5 18 /min 98.2 [degF] 97 % 96 /min 148/82 mm[Hg] Not [...] ICD10 Code Diagnosis IMO Codes Diagnosis Note [id number] Chasity Morgan MD Main - [facility] [address] [place] [phone] 03/22/2023 16:29:49 03/22/2023 23:31:53 Acute bacterial bronchitis 512307085 J20.9 possible pneumonia- Patient would benefit from cxr- note sent to crc to contact CP /team re same-grand daughter [...] the home Rx sent.The medic went over instructnaomi [place] with the sylvester ayers-includ ing exactly how to use an MDI- and the patient The sylvester ayers states she will be able to assist the patient with same and will bead picker the prescripti ons this afternoon [id number] Yunior Borjas MD Main - [facility] [address] [place] [phone] 08/05/2024 14:04:31 08/08/2024 12:40:53 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.. ..................... ..................... ..................... ..................... ..................... ............... Morgue Technician Note From Phyllis Gee: Community Morgue Technician Papito Gee CCA1 [facility] for a 77 yof C/O [...] odor per grand daughter Chasity Morgan MD [address] [place] [address],[address], [place], [phone], [employer] 03/22/2023 19:34:55 08/05/2024 text/html CRC Nurse Triage [...] PMH Reviewed at 08/05/2024 Allergies Reviewed at 08/05/2024 - : Comments: Composition Stone Applicator verified the name//address and phone number. Daughter [...] s/s and seek emergency treatment if needed Morgue Technician Organization Information for [employer] Business Legal Name: [employer]. Address: [address] [place] [address], Battery Test Engineer: Josiah Schmidt MD CLIA No.: [id number] Morgue Technician POC Test Results from [facility] [employer] Urine Dipstick (14:01:06) Urine leukocytes: ++ VIVIANA Urine nitrites: - NIT Urine urobilinogen: - URO Urine protein: - PRO Urine pH: 5 pH Urine blood: ++ BLO Urine specific gravity: 1.010 SG Urine ketones: + KET Urine bilirubin: - OSITO Urine glucose: - GLU ..................... ..................... ..................... ..................... ..................... ..................... ............... Morgue Technician Note From [employer]ner[employer]: Dispatched to the call address for the elderly female with AMS. Pts granddaughter (Radha, Primary Fire Controlman) advises that for the last 3 days [...] she has spoken to her PCP and pediatric critical care nurse assistance and they recommended and Insted visit. [...] give a urine sample after some time. [facility] consulted. Pts daughter was advised that this [...] been happening and she is the only critical care rn and the Pt is refusing care from her. 911 called on behalf of the Pt per family request. I remained on scene and gave EMS crew update. Pt transported to [facility]. ALL times are approx. ..................... ..................... ..................... ..................... ..................... ..................... ............... [facility] Consulted: Yunior Borjas ..................... ..................... ..................... ..................... ..................... ..................... ............... Disposition: Fulfilled Yunior Borjas MD [address] [facility],[address], [place], [phone], KASHMIR CARRERA 08/08/2024 02:00:47 OBGyn Episode No OBEpisode recorded.
--- OUTSIDE RECORDS SUMMARY | 2025-07-01 22:56 | XMS_ITS | Data Portability ---
Author Organization [facility] [email or web address] [facility], Main Office Address [address] [place] [address] Care Team Providers Care Animal Nutrition Teacher Name Role Phone GERA WEI - 3RD FLOOR OTHER RHONDA FRANCO Primary Care Provider [phone] Assessment Encounter Date Assessment Date Assessment LastModified [...] Address Organization Details Recorded Time Multiple myeloma 028738016 Active 2024 Bethany Mir NP [address], [address], [place], [address], [facility] [employer] 5 09:32:45 Paranoid schizophren ia 65740716 Active 2024 Bethany Mir NP [address], [address], [place], [address], [facility] [employer] 5 09:33:02 Seasonal allergy 330857433 Active 2024 Bethany Mir NP [address], [address], [place], [address], [facility] [employer] 5 09:33:16 Vascular dementia with behavioral disturbance 0938643806705 04 Active 2024 Bethany Mir NP [address], [address], [place], [address], [facility] 5 09:46:13 Chronic gout without tophus 851166704 Active 2024 Bethany Mir NP [address], [address], [place], [address], [facility] 5 09:53:55 Gastroesoph ageal reflux disease without esophagitis 574353713 Active 2024 Bethany Mir NP [address], [address], [place], [address], [facility] 5 09:55:38 Coronary arterioscle rosis 28223561 Active 2024 Bethany Mir NP [address], [address], [place], [address], [facility] 5 10:51:27 Problem Notes None recorded. Medical Equipment None Reported. Allergies No known drug allergies Vitals Date Recorded Heart rate Respiratory rate Body temperature Oxygen saturation Systolic And Diastolic Provider Name and Address Organization Details Last Updated DateTime 5 73 /min 16 /min 97.8 [degF] 95 % 122/68 mm[Hg] VIOLET REYES NP [address], [place], [address], [facility] 5 12:15:30 Date Recorded Body weight Heart rate Respiratory rate Body temperature Oxygen saturation Systolic And Diastolic Provider Name and Address Organization Details Last Updated DateTime 5 74485.8 9 g 72 /min 18 /min 97.6 [degF] 96 % 122/68 mm[Hg] Bethany Mir NP [address], [address], [place], [address], [facility] 5 12:50:55 Date Recorded Heart rate Respiratory rate Body temperature Oxygen saturation Systolic And Diastolic Provider Name and Address Organization Details Last Updated DateTime 5 71 /min 18 /min 97.5 [degF] 96 % 122/68 mm[Hg] VIOLET REYES NP [address], [address], [place], [address], [facility] 5 12:56:54 Date Recorded Body height Body mass index (BMI) Body weight Heart rate Respiratory rate Body temperature Oxygen saturation Systolic And Diastolic Provider Name and Address Organization Details Last Updated DateTime 5 152.4 cm 29.6 kg/m2 50138.3 2 g 67 /min 18 /min 97.5 [degF] 97 % 128/66 mm[Hg] Ning Bunn MD [address], [address], [place], [address], [facility] 5 16:14:43 Date Recorded Body height Heart rate Respiratory rate Body temperature Oxygen saturation Systolic And Diastolic Provider Name and Address Organization Details Last Updated DateTime 5 152.4 cm 80 /min 18 /min 96.9 [degF] 100 % 128/72 mm[Hg] VIOLET REYES NP [address] [facility] [address], [place], [address], [facility] 5 13:35:10 Social History Question Answer Notes LastModified by Organizat ion Details LastModified Time Tobacco Smoking Status Former Smoker Bethany Mir NP [address], [facility] [address], [place], [address], [facility] 10/24/2024 09:07:44 Do You Have An Advance Directive? Yes Information not available 10/24/2024 What Is Your Code Status? DNR/DNI Information not available 10/24/2024 Where Do You Live? [facility] [place] Information not available 12/29/2024 Legal Guardian? No Informati on not available 12/29/2024 Do You Have A Medical Power Of Service Manager? Yes Information not available 12/29/2024 What Was The Date Of Your Most Recent Tobacco Screening? 10/24/2024 Information not available 10/24/2024 Do You Have An Out Of Hospital DNR? Yes Information not available 12/29/2024 What Is Your [...] ICD10 Code Diagnosis IMO Codes Diagnosis Note [id number] Bethany Mir NP [address] [address] 10/24/2024 09:05:33 10/27/2024 13:10:08 Paranoid schizophrenia 99911869 F20.0 96503 levels just checked during psych hospital admit [...] monthly bloodwork checks for clozapine Seasonal allergy 6937087 04 J30.2 62622 loratidine 10 mg po qhs Multiple myeloma 7196382 06 C90.00 97146276 ondansetro n 4m g po q 4 hours prn nauseaacyc lovir 400 mg po qdlenalido mide 15 mg po qd -15 days on and [address] angeles chaney appt 12/12 and sylvester ayers reports she will take her Vascular d ementia with behavioral disturbance 5929048695 13976 F01.B18 9850622595 pt with hx of dementiain voked with sylvester sorenson as decision makermonit or Osteoporosis 33999907 M8 1.0 63545158 ? osteoporos ischolecal ciferol 50 mcg po qddenosuma b 120 mg sc q 8 weeksmonit or Chronic go ut without tophus 328905457 M1A.9XX0 64809509 ? if gout or unspecifie d reason for medallopur inol [address] franco and request pmh and recordsmon itor for symptoms Gastroesop hageal reflux disease without esophagitis 587533364 K21.9 062088 omeprazole 20 mg po ammonitor Coronary arteriosclerosis 55342990 I25.10 1357188311 hx ofaspirin 81 mg po qdmonitor [id number] Damaso Abreu MD [address] [address] 10/26/2024 10:32:40 10/27/2024 13:14:53 Paranoid schizophrenia 77722990 F20.0 37721 see HPIbaselin e paranoid schizophre inge with acute decompensa tion with med non-compli ancefollow ed by psych now onclozapin e 25 mg bid and 300 mg qhsinvoke HCPpsych to eval and followmoni tor sx control Seasonal allergy 2847907 04 J30.2 07698 loratidine 10 mg po qhs continuedm onitor for effect Multiple myeloma 7773938 06 C90.00 79688768 continue oncology medscoordi andriy with oncologyf/ u in placemonit or cbc and update oncology with concerns Vascular d ementia with behavioral disturbance 1899237397 79193 F01.B18 5977176726 see aboveHCP invokedmon itor for behaviorsp sych to follow Chronic go ut without tophus 973393676 M1A.9XX0 07202502 ? if gout or unspecifie d reason for medallopur inol [address] p[address] franco and request pmh and recordsmon itor for symptoms Gastroesop hageal reflux disease without esophagitis 683031579 K21.9 991934 omeprazole 20 mg po qdmonitor for sx relief Coronary arteriosclerosis 89642136 I25.10 5257911320 carrying dx maintained onasa 81 mg po qdnot on statin or beta blockermon itor sx Asthenia 94068549 R53.1 19198 PT OT eval and treatmonit or fall risk and need for increased support in community [id number] [facility] [address] [place] [address] 10/30/2024 07:50:38 11/03/2024 10:00:40 Paranoid schizophrenia 05357541 F20.0 89294 seems to be doing well since here, [...] and followmoni tor sx control Coronary arteriosclerosis 74495836 I25.10 3327229454 carrying dx maintained onasa 81 mg po qdnot on statin or beta blockermon itor sx Multiple myeloma 4331224 06 C90.00 01732794 continue oncology medscoordi andriy with oncologyal lopurinolf /u in placemonit or cbc and update oncology with concerns Vascular d ementia with behavioral disturbance 6634649501 97671 F01.B18 3849485750 see aboveHCP invokedmon itor for behaviorsp sych to follow Asthenia 99854960 R53.1 67699 PT OT eval and treatmonit or fall risk and need for increased support in community Gastroesop hageal reflux disease without esophagitis 924824684 K21.9 248672 omeprazole 20 mg po qdmonitor for sx relief Osteoporosis 54100176 M8 1.0 40501810 osteoporos ischolecal ciferol 50 mcg po qddenosuma b 120 mg sc q 8 weeksmonit or 110447 VIOLET REYES [facility] [address] [place] [address] 11/06/2024 12:14:22 11/12/2024 12:37:18 Paranoid schizophrenia 07016505 F20.0 46436 Still declining care with staff, personal care provided by family.Enc ourage med compliance Psych eval prnContinu e clozapine 25 mg bid and 300 mg qhsLast ANC 11/05 1.03 - repeat in amInvoked HCPmonitor sx control Vascular d ementia with behavioral disturbance 4780525374 07697 F01.B18 8426632765 see aboveHCP invokedmon itor for behaviorsp sych to follow Coronary arteriosclerosis 33344592 I25.10 5989747521 carrying dx maintained onasa 81 mg po qdnot on statin or beta blockermon itor sx, VS Multiple myeloma 5620941 06 C90.00 52516134 continue oncology medscoordi andriy with oncologyal lopurinolf /u in placemonit or cbc and update oncology with concerns Asthenia 04159621 R53.1 04354 PT OT eval and treatmonit or fall risk and need for increased support in community Gastroesop hageal reflux disease without esophagitis 620481536 K21.9 912996 omeprazole 20 mg po qdmonitor for sx relief Osteoporosis 92542305 M8 1.0 30996017 osteoporos ischolecal ciferol 50 mcg po qddenosuma b 120 mg sc q 8 weeksmonit or 328234 Bethany Mir NP [facility] [address] [place] [address] 11/13/2024 12:50:27 11/17/2024 08:59:32 Paranoid schizophrenia 81135035 F20.0 36736 Still declining care with staff, personal care provided by family.Enc ourage med compliance Psych eval prnContinu eclozapine 25 mg bid and 300 mg qhsLast ANC 11/05 1.03 - repeat in am, slightly better at 1.49 abs neuts on 11/12Invoke d HCPmonitor sx control Vascular d ementia with behavioral disturbance 7865312913 47879 F01.B18 5382642707 see aboveHCP invokedmon itor for behaviorsp sych to follow Coronary arteriosclerosis 87850417 I25.10 3724214035 carrying dx maintained onasa 81 mg po qdnot on statin or beta blockermon itor sx, VS Multiple myeloma 6023443 06 C90.00 74190369 continuere vlimid 15 mg po qd x 15 dAYScoordi andriy with oncologyal lopurinolf /u in place, however she didn't go, need to reschedule granddanajma ter resched appt per nsgmonitor cbc and update oncology with concerns Asthenia 10883514 R53.1 84922 PT OT eval and treatmonit or fall risk and need for increased support in community Gastroesop hageal reflux disease without esophagitis 241833580 K21.9 705959 omeprazole 20 mg po qdmonitor for sx relief Osteoporosis 46969686 M8 1.0 74530285 osteoporos ischolecal ciferol 50 mcg po qddenosuma b 120 mg sc q [facility] [id number] [address] 11/18/2024 12:36:53 11/20/2024 13:03:35 Paranoid schizophrenia 62085003 F20.0 61657 Declining care with staff, personal care provided by family.Enc ourage med compliance Psych eval prnContinu e clozapine 25 mg bid and 300 mg qhsLast ANC 1.49 on 11/12CBCD q monthInvok ed HCPmonitor sx control Vascular d ementia with behavioral disturbance 9973515900 90235 F01.B18 6398312003 see aboveHCP invokedmon itor for behaviorsp sych to follow Coronary arteriosclerosis 02391533 I25.10 7374773569 carrying dx maintained onasa 81 mg po qdnot on statin or beta blockermon itor sx, VS Multiple myeloma 1682152 06 C90.00 86141357 Just started revlimid 15 mg po qd x 15 days on 11/16, then stop x 2 wksCoordin ate care with oncology, Sylvester ayers rescheduli ng appointmen t as it was missed the beginning of the month.Cont inue allopurino l 100 mg qdCheck with Oncology re: freq. of CBCD, currently q monthUpdat e oncology with concerns Asthenia 70406949 R53.1 88736 Not working with PT OT presently. Monitor fall risk and need for increased support in community if returns home. Gastroesop hageal reflux disease without esophagitis 089811636 K21.9 511185 omeprazole 20 mg po qdmonitor for sx relief Osteoporosis 10366122 M8 1.0 98739384 osteoporos ischolecal ciferol 50 mcg po qddenosuma b 120 mg sc q [facility] [address]ing [facility]unn [facility] [address] 12/29/2024 15:54:15 02/05/2025 11:05:01 Paranoid schizophrenia 59568760 F20.0 57022 Declining care with staff, personal care provided by family.Enc ourage med compliance Psych eval prnContinu e clozapine 25 mg bid and 300 mg qhsLast ANC 1.49 on 11/12CBCD q monthInvok ed HCPmonitor sx control Vascular d ementia with behavioral disturbance 7553693559 55684 F01.B18 0292684864 see aboveHCP invokedmon itor for behaviorsp sych to follow Coronary arteriosclerosis 26113604 I25.10 0444416326 carrying dx maintained onasa 81 mg po qdnot on statin or beta blockermon itor sx, VS Multiple myeloma 1828691 06 C90.00 33376161 Just started revlimid 15 mg po qd x 15 days on 11/16, then stop x 2 wksCoordin ate care with oncology, Sylvester jain appointmen t as it was missed the beginning of the month.Cont inue allopurino l 100 mg qdCheck with Oncology re: freq. of CBCD, currently q monthUpdat e oncology with concerns Asthenia 05942919 R53.1 54705 Not working with PT OT presently. Monitor fall risk and need for increased support in community if returns home. Gastroesop hageal reflux disease without esophagitis 064067198 K21.9 416800 No current sxs.Contin ue omeprazole 20 mg qdMonitor GI sxs. Osteoporosis 44675052 M8 1.8 5269482 Continue cholecalci ferol 50 mcg qd and denosumab 120 mg sc q 8 weeks in [facility] 610424 VIOLET REYES NP [address] [address] 01/22/2025 13:33:35 01/26/2025 15:31:22 Paranoid schizophrenia 46273925 F20.0 22623 More comfortabl e/complian t with my visits, but still stays mostly in her room.Jr nue:clozap ine 25 mg bid and 300 mg qhszoloft 50 mg qdLast ANC 2 on 01/12CBCD q monthInvok ed HCPmonitor sx controlPsy ch eval prn Vascular d ementia with behavioral disturbance 5065445788 46955 F01.B18 6499280605 see aboveHCP invokedmon itor for behaviorsp sych to follow Coronary arteriosclerosis 72405313 I25.10 9990238787 carrying dx maintained onasa 81 mg po qdnot on statin or beta blockermon itor sx, VS Multiple myeloma 1677857 06 C90.00 33173033 Just started revlimid 15 mg po qd x 15 days on 11/16, 15 days offCoordin ate care with oncology, Sylvester jain ng appointmen tCBCD q month, current AnC 2.00Update oncology with concerns Asthenia 88154546 R53.1 51517 Not working with PT OT presently. Transition ed to LTCMonitor fall risk and need for increased support. Gastroesop hageal reflux disease without esophagitis 242221493 K21.9 521451 Continue omeprazole 20 mg po qdmonitor for sx relief Osteoporosis 68043701 M8 1.0 67249100 osteoporos ischolecal ciferol 2000 U po qddenosuma b 120 mg sc q 8 weeks in [facility] Gout 23101310 M10.9 1385172 Continue allopurino l 100 mg qd Seasonal allergy 9746495 04 J30.2 98974 Continue claritin 10 mg qd Chronic anemia 762882018 D64.9 831987 Continue daily FeCBCD q monthMonit or VS, s/s active bleed Health Concerns Section Related Observation LastModified by Organization Detai ls LastModified Time None Recorded Concern Status LastModified by Organization Details LastModified Time None Recorded Advance Directives Directive Y: Payers Insurance Date Sequence Insurance Name Policy Number Policy Garcia Covered Member ID Garcia Member ID Guarantor Name 02/06/2025 1 [facility] - DOS ON OR AFTER 2022 - MEDICARE ADVANTAGE [place] (MEDICARE REPLACEMENT/ADV ANTAGE - PPO) Jeanne Younger [id number] Jeanne Younger Notes Date Note Type Note Provider Name and Address Organization Details Recorded Time 11/06/2024 text/html ROS as noted in the HPI Jeanne is seen for an acute rounding visit. She is a 79 yo female, here for LTC, [place] [facility] [place] for reported exacerbation of paranoia and noncompliance with her medications. Her medications were adjusted and seems to be doing much better. Currently not working with rehab.VSSLabs being trended, stable this week except ANC dropping - 1.03. Followed due to clozapine. Upon exam, Jeanne is in bed, alert, NAD. Smiles, but when she learns who I am ([employer]) she says she is fine and refuses to be examined.Case discussed with nsg., no new issues, family comes in to provide personal care as she refuses care with aides. Eating very well. PMH: schizophrenia, multiple myeloma Granddaughter is HCP and decision maker, invokedMOLST: DNR/DNI/ okay to transfer to hospital, No dialysis, no art nutrition, okay for IVF VIOLET REYES NP [address], [address], [place], [address], [facility] 11/06/2024 12:38:20 11/13/2024 text/html ROS as noted in the HPI Jeanne is seen for an acute rounding visit. [...] yo f, here for LTC, [place] [facility] [place] for reported exacerbation of paranoia and non compliance with her medications. Her medications were adjusted and seems to be doing much better. Granddaughter is HCP and decision maker, invokedMOLST: DNR/DNI/ okay to transfer to hospital, No dialysis, no art nutrition, okay for IVF Bethany Mir, [facility] [address], [place], [address], [facility] 11/13/2024 13:05:52 11/18/2024 text/html ROS as noted in the HPI Ada is seen today for a routine 30 day visit. She is a 79 yo female, here for LTC, admitted to [facility] [place] for reported exacerbation of [...] if Oncology appt. was rescheduled. Upon exam, Ada is in bed, alert, NAD. Pleasant, more cooperative with exam today. She denies any complaints today, appetite 100% for lunch.No issues per nsg. PMH: schizophrenia, multiple myeloma Granddaughter is HCP and decision maker, invokedMOLST: DNR/DNI/ okay to transfer to hospital, No dialysis, no art nutrition, okay for IVF VIOLET REYES, [facility] [address], [address], [place], [address], [facility] 11/18/2024 13:17:47 12/29/2024 text/html This is a 79 yo woman with MM and paranoid schizophrenia, LTC resident, who I am seeing today for a routine MD 60 day reeval rounding visit. She has been here since 10/23/24 after a geripsych admission for paranoid schizophrenia. Since here she [...] is in bed.I see her with a sami speaking staff member.She says I'm ok, I'm ok She allows me to listen to her heart and lungs and then says carolina figueroa .On our way out the sami speaking staff member tells me she says those bitches . Her PMH includes HTN, paranoid schizophrenia, multiple myeloma on chemo, asthma, GERD, CAD, and hx of tubular adenoma of colon. Ning Bunn MD [address], [address], [place], [address], [facility] [employer] 02/02/2025 01:17:26 01/22/2025 text/html ROS as noted in the HPI Jeanne is seen today for a routine 90 day visit. She is a 79 yo female, here for LTC, admitted [place] [facility] [place] for reported exacerbation of [...] okay for IVF VIOLET REYES NP [address], [address], [place], [address], [facility] [employer] 01/22/2025 13:50:27 OBGyn Episode No OBEpisode recorded.
--- NOTE | 2025-07-01 23:10 | ED.GENADULT ---
HPI - General Adult General Chief complaint: Upper Respiratory Symptoms Stated complaint: flu like symptoms Time Seen by Provider: 07/01/25 21:38 Source: family and EMS Mode of arrival: EMS Limitations: other (Dementia, schizophrenia) History of Present Illness ED Provider: Dr. Bia Machado HPI narrative: Patient comes to the emergency room via ambulance from a custodial facility. Patient's family is at bedside. According to the patient's family, patient has history of dementia and schizophrenia. At baseline she usually has a hallucinations. However, usually patient is able to get up, walk with her walker and have conversations with the family. According to the family, for the last 4 days, patient has gradually been declining, refusing to eat for 4 days. Today, patient is awake but very weak, unable to get up Given with her walker or assistance. They have noted that for the last few days, patient has had a lot of cough. Family reports that the patient has had history of multiple episodes of pneumonia in the past. Patient is awake, alert, but is unable to give any significant history. Patient is also undergoing chemotherapy for multiple myeloma. Patient has a regimen of 14 days on - 15 days off. Currently she is on her off days of chemotherapy. Related Data Home Medications ?Medication ?Instructions ?Recorded ?Confirmed albuterol sulfate 90 mcg/actuation 2 puff PO Q4H PRN Dyspnea 04/15/20 06/04/25 aerosol inhaler loperamide 2 mg capsule 2 mg PO DAILY PRN Diarrhea 04/15/20 06/04/25 (Anti-Diarrheal (loperamide)) sennosides 8.6 mg tablet (senna) 2 tab PO DAILY PRN Constipation 04/15/20 06/04/25 denosumab 120 mg/1.7 mL (70 mg/mL) 120 mg subcut Q8W 09/29/22 06/04/25 subcutaneous solution lorazepam 1 mg tablet (Ativan) 1 mg PO DAILY PRN Anxiety 09/29/22 06/04/25 bisacodyl 10 mg rectal suppository 10 mg W[place] DAILY PRN yes 12/12/24 06/04/25 cholecalciferol (vitamin D3) 25 50 mcg PO 2XD 12/12/24 06/04/25 mcg (1,000 unit) tablet Previous Rx's ?Medication ?Instructions ?Recorded allopurinol 100 mg tablet 100 mg PO DAILY #90 tabs 08/14/24 ferrous sulfate 324 mg (65 mg 324 mg PO DAILY #90 tabs 05/18/24 iron) tablet,delayed release aspirin 81 mg tablet,delayed 81 mg PO DAILY #90 tabs 05/23/24 release omeprazole 20 mg capsule,delayed 20 mg PO QAM #90 caps 07/23/24 release Non-Formulary Medication 1 ea PO DAILY ##0 10/23/24 clozapine 100 mg tablet 300 mg (3 x 100 mg) PO BEDTIME #0 10/23/24 tabs clozapine 25 mg tablet 25 mg PO BID@0800,1500 #0 tabs 10/23/24 loratadine 10 mg tablet 10 mg PO BEDTIME #0 tabs 10/23/24 ondansetron 4 mg disintegrating 4 mg translingual Q4H PRN Nausea 10/23/24 tablet And Vomiting #0 tabs sertraline 50 mg tablet 50 mg PO DAILY #0 tabs 10/23/24 lenalidomide 15 mg capsule 15 mg PO DAILY #14 caps 06/26/25 Allergies Allergy/AdvReac Type Severity Reaction Status Date / Time Penicillins Allergy Unknown Verified 07/01/25 21:17 Review of Systems Review of Systems: Yes Unobtainable due to mental condition and Other (Schizophrenia, dementia) [facility] Past Medical History Medical History Chemotherapy-induced fatigue Chemotherapy adverse reaction CKD (chronic kidney disease) Sepsis Tubular adenoma of colon Bilateral hearing loss Schizophrenia Asthma GERD (gastroesophageal reflux disease) Hyperlipidemia Hypertension Surgical History History of total hysterectomy History of lumpectomy Family History Family History Father Coronary artery disease High cholesterol Diabetes mellitus CVD (cardiovascular disease) Mother Alzheimer's disease Brother History of CVA (cerebrovascular accident) Stroke Sister History of CVA (cerebrovascular accident) Stroke Son No problems noted. Sister No problems noted. Sister No problems noted. Sister No problems noted. Sister No problems noted. Sister No problems noted. Brother No problems noted. Brother No problems noted. Brother No problems noted. Brother No problems noted. Brother No problems noted. Brother No problems noted. Other Hypertension Social History Social History Household Members: Family Household Members Other:: granddaughter. Housing: Apartment Are you a primary child day care teacher to a significant other at home: No Do you presently have visiting nurse or other home services: No Alcohol intake: never Patient Tobacco Use Status: Former Tobacco user e-Cigarette/Vaping Use: Never Used Advance Directives: Yes Advance Directives on File: Yes Advance Directives Date on File: 12/15/20 service: No Current occupational status: retired Sexual orientation: Straight/Heterosexual Cognitive needs: No Hearing needs: No Vision needs: Yes Physical Exam ED Exam Exam: Appearance: Alert. Oriented X2. No acute distress. Seems weak Eyes: Pupils equal, round and reactive to light. ENT: Pharynx normal. Neck: Normal inspection. Neck supple. No lymph nodes noted. No crepitus CVS: Normal heart rate and rhythm. Pulses normal. Normal S1 and S2 Respiratory: No respiratory distress. Breath sounds normal. No Wheezing. No rales Abdomen: Soft and nontender. No rigidity. No distention. 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 Normal skin color. Normal skin turgor. Extremities: No lower extremity edema. No Lacerations. No Rash Neuro: Oriented X 2. No motor deficit. No sensory deficit. Moving all extremities. No slurred speech. CN 2 through 12 grossly intact Psych: calm, cooperative, normal affect Vital Signs: Vital Signs - 24 hr 07/01/25 21:13 07/01/25 21:35 07/01/25 21:59 Temperature 98.4 F 99.4 F 98.1 F Pulse Rate 97 97 94 Respiratory Rate 16 20 19 Blood Pressure 94/63 103/65 103/68 Pulse Oximetry 95 97 100 Oxygen Delivery Method Room Air Room Air Room Air 07/01/25 22:02 07/01/25 22:56 07/01/25 23:43 Temperature Pulse Rate 92 90 Respiratory Rate 20 24 H Blood Pressure 107/61 115/70 Pulse Oximetry 97 99 99 Oxygen Delivery Method Room Air Room Air Room Air BMI result Body Mass Index 35.3 Course Course Course Narrative: Patient is unable to give significant history due to dementia. Patient has history of recurrent pneumonia, patient has URI symptoms and patient is currently undergoing chemotherapy. Empirically, patient is being treated with IV fluids based on ideal weight of 45 kg, patient is obese. Also patient is being given cefepime 2 g. Patient's labs and imaging pending Medications Administered Generic Name Dose Route Start Last Admin Trade Name Freq PRN Reason Stop Dose Admin Potassium Chloride 10 meq in 100 mls @ 100 mls/hr 07/01/25 22:45 07/01/25 23:54 Potassium Chloride/H20 IV 07/02/25 02:44 100 mls/hr Q1H MAO Administration Magnesium Sulfate 2 gm in 50 mls @ 25 mls/hr 07/01/25 22:32 07/01/25 22:52 Magnesium Sulfate/H2o IV 07/02/25 00:31 25 mls/hr ONCE ONE Administration Calcium Gluconate 2 gm in 100 mls @ 50 mls/hr 07/01/25 22:33 07/01/25 22:49 Calcium Gluconate IV 07/02/25 00:32 50 mls/hr ONCE ONE Administration Albumin Human 100 mls @ 100 mls/hr 07/01/25 23:30 07/02/25 00:03 Kedbumin 25 % IV 07/02/25 06:29 100 mls/hr Q6H MAO Administration Discontinued Medications Generic Name Dose Route Start Last Admin Trade Name Freq PRN Reason Stop Dose Admin Sodium Chloride 1,000 mls @ 999 mls/hr 07/01/25 21:38 07/01/25 22:44 Ns IVCONT 07/01/25 22:38 Infused .Q1H1M ONE Infusion Cefepime HCl 2 gm in 50 mls @ 100 mls/hr 07/01/25 22:26 07/01/25 23:22 Maxipime IV 07/01/25 22:55 Infused ONCE ONE Infusion Medical Decision Making Medical Decision Making [facility] Narrative: My interpretation of EKG: Normal sinus rhythm, heart rate 91, no ST segment depression or elevation, no T-wave inversion, QTC 472 My interpretation of labs: Normal white blood cell count of, hemoglobin 10.1 which is chronic for the patient, platelets 306 at baseline Chemistry shows several abnormalities including a potassium 2.2, sober ride and 32, bicarb 12 , calcium, LFTs within normal limits, total protein 3.3, albumin 1.6 Patient is receiving IV fluids, already received cefepime, also receiving albumin, calcium gluconate, potassium IV and magnesium IV. At this time, patient is unwilling to take anything p.o. After IV fluids, a VBG was done, bicarb improved to 18, pH and pCO2 unremarkable Urinalysis still pending. However, patient was already covered with cefepime Patient's blood pressure 115 systolic, no episodes of hypotension. No fever I discussed the above-mentioned with our hospitalist Dr. Dionicio Lawrence, patient being admitted I discussed the above-mentioned also with the patient's family who is at bedside, all agree with plan. Differential Diagnosis Differential Diagnoses: The differential diagnosis associated with the presentation includes (Influenza a, RSV, COVID, pneumonia) Admission/Observation Consideration of admission/observation: Escalation of care including admission/observation considered Consult Healthcare Provider Management of the patient was discussed with: Hospitalist Lab Data MDM Lab Attestation statement: I reviewed the patient's lab results. 07/01/25 21:33 07/01/25 22:07 Labs: Lab Results 07/01/25 07/01/25 07/01/25 Range/Units 21:33 21:34 22:07 WBC 5.5 (4.8-10.8) X10*3/uL RBC 3.73 L (4.20-5.50) X10*6/uL Hgb 10.1 L (12.0-16.0) g/dl Hct 34.2 L (37.0-47.0) % MCV 91.7 (80.0-98.0) fL MCH 27.1 (27.0-33.0) pg MCHC 29.5 L (31.0-35.0) g/dl RDW 16.3 H (11.0-16.0) % Plt Count 306 D (160-400) X10*3/uL MPV 10.8 (9.4-12.3) fL Immature Gran % (Auto) Cancelled Neut % (Auto) Cancelled Lymph % (Auto) Cancelled [place] % (Auto) Cancelled Eos % (Auto) Cancelled Baso % (Auto) Cancelled Lymph # (Auto) Cancelled [place] # (Auto) Cancelled Eos # (Auto) Cancelled Baso # (Auto) Cancelled Abs Immat Gran (auto) Cancelled Absolute Neuts (auto) Cancelled Absolute Nucleated RBC 0.000 (0.0-0.012) X10*3/uL Nucleated RBC % (auto) 0.0 (0.0-0.2) /100WBC Neutrophils % (Manual) 55 (45-73) % Band Neutrophils % 24 H (3-5) % Lymphocytes % (Manual) 15 L (20-40) % Monocytes % (Manual) 5 (2-11) % Basophils % (Manual) 1 (0-2) % Abs Neuts (Manual) 4.3 (2.0-8.3) X10*3/uL Lymphocytes # (Manual) 0.8 L (1.2-4.9) X10*3/uL Monocytes # (Manual) 0.3 (0.1-1.2) X10*3/uL Basophils # (Manual) 0.1 (0.0-0.2) X10*3/uL Platelet Estimate NORMAL (NORMAL) Plt Morphology Comment NORMAL RBC Morphology NORMAL VBG pH (7.32-7.43) VBG pCO2 mmHg VBG pO2 mmHg VBG HCO3 (22-26) mmol/L VBG O2 Saturation VBG Base Excess mmol/L Sodium 147 H (135-145) mmol/L Potassium 2.2 L* D (3.3-5.1) mmol/L Chloride 132 H (96-108) mmol/L Carbon Dioxide 12 L (22-29) mmol/L Anion Gap 5 L (12-20) BUN 16 (9-16) mg/dL Creatinine 0.70 (0.5-1.4) mg/dL Estim Creat Clear Calc 62.8 Estimated GFR > 60 Random Glucose 70 (60-115) mg/dL Lactic Acid (0.5-2.0) mmol/L Calcium 4.3 L* D (8.4-10.2) mg/dL Magnesium 1.1 L* (1.6-2.6) mg/dL Total Bilirubin 0.1 (0.0-1.0) mg/dL AST 14 (5-31) U/L ALT < 6 (0-31) U/L Alkaline Phosphatase 49 (39-117) U/L Total Protein 3.3 L (6.5-8.0) g/dL Albumin 1.6 L (3.5-5.0) g/dL Influenza Type A (PCR) POSITIVE A (Negative) Influenza Type B (PCR) NEGATIVE (Negative) RSV RNA Qual (PCR) NEGATIVE (Negative) SARS-CoV-2 RNA (RT-PCR) NEGATIVE (Negative) 07/01/25 07/01/25 Range/Units 22:49 23:31 WBC (4.8-10.8) X10*3/uL RBC (4.20-5.50) X10*6/uL Hgb (12.0-16.0) g/dl Hct (37.0-47.0) % MCV (80.0-98.0) fL MCH (27.0-33.0) pg MCHC (31.0-35.0) g/dl RDW (11.0-16.0) % Plt Count (160-400) X10*3/uL MPV (9.4-12.3) fL Immature Gran % (Auto) Neut % (Auto) Lymph % (Auto) [place] % (Auto) Eos % (Auto) Baso % (Auto) Lymph # (Auto) [place] # (Auto) Eos # (Auto) Baso # (Auto) Abs Immat Gran (auto) Absolute Neuts (auto) Absolute Nucleated RBC (0.0-0.012) X10*3/uL Nucleated RBC % (auto) (0.0-0.2) /100WBC Neutrophils % (Manual) (45-73) % Band Neutrophils % (3-5) % Lymphocytes % (Manual) (20-40) % Monocytes % (Manual) (2-11) % Basophils % (Manual) (0-2) % Abs Neuts (Manual) (2.0-8.3) X10*3/uL Lymphocytes # (Manual) (1.2-4.9) X10*3/uL Monocytes # (Manual) (0.1-1.2) X10*3/uL Basophils # (Manual) (0.0-0.2) X10*3/uL Platelet Estimate (NORMAL) Plt Morphology Comment RBC Morphology VBG pH 7.38 (7.32-7.43) VBG pCO2 31 mmHg VBG pO2 66 mmHg VBG HCO3 18 L (22-26) mmol/L VBG O2 Saturation Not Reportable VBG Base Excess -5.3 mmol/L Sodium (135-145) mmol/L Potassium (3.3-5.1) mmol/L Chloride (96-108) mmol/L Carbon Dioxide (22-29) mmol/L Anion Gap (12-20) BUN (9-16) mg/dL Creatinine (0.5-1.4) mg/dL Estim Creat Clear Calc Estimated GFR Random Glucose (60-115) mg/dL Lactic Acid 1.0 (0.5-2.0) mmol/L Calcium (8.4-10.2) mg/dL Magnesium (1.6-2.6) mg/dL Total Bilirubin (0.0-1.0) mg/dL AST (5-31) U/L ALT (0-31) U/L Alkaline Phosphatase (39-117) U/L Total Protein (6.5-8.0) g/dL Albumin (3.5-5.0) g/dL Influenza Type A (PCR) (Negative) Influenza Type B (PCR) (Negative) RSV RNA Qual (PCR) (Negative) SARS-CoV-2 RNA (RT-PCR) (Negative) Independent Interpretation I performed an independent interpretation of an: EKG and Plain X-Ray Radiology Impression Discussion of test interpretation with radiology: I have reviewed the radiologist's reading. Radiologist Impression: Lungs are well inflated. Cardiac silhouette is mildly enlarged with left ventricular prominence. Central interstitial markings are prominent with bilateral perihilar bronchial wall thickening. No dense area of consolidation. Question tiny right pleural effusion. Impression: Perihilar edema versus bronchitis/bronchiolitis Critical Care Time Critical Care Time Critical Care Time: Yes Total Critical Care Time: 60 Attestation: I have personally provided critical care time. Time includes review of lab data, radiology results, discussion with consultants, and monitoring for potential decompensation. Intervention performed as documented. Discharge Plan Discharge Clinical Impression: Influenza A, Weakness, Acute hypokalemia, Hypocalcemia, Hypomagnesemia Patient Disposition: Admitted As Inpatient Print Language: Upper Sorbian
[2025-07-01 23:32] LABS: Venous Blood Gas Refer to POC result
[2025-07-01 23:35] LABS: VBG HCO3 18 mmol/L (22-26)
[2025-07-01 23:43] VITALS: BP 115/70; PULSE 90; RESP 24; O2SAT 99
[2025-07-02] VITALS (12 sets, daily range): BP systolic 97–144; BP diastolic 45–79; PULSE 79–88; RESP 16–26; TEMP 36.5–37.1; O2SAT 93–100; BMI 35.3
[2025-07-02] MEDS: Albumin Human 25 % 100 ML IV ×2 (00:03→06:08)
--- NOTE | 2025-07-02 00:23 | PC.NURSE ---
straight cath done, pt tolerated well, clear yellow uo of 25mL, sent to lab. bed linen changed dar care given, purewick placed for incontinence.
--- NOTE | 2025-07-02 00:27 | PM.IMHP ---
History of Present Illness Date of Service: 07/02/25 Attending physician on admission: Haydee Perera Chief Complaint: AMS, weak Patient is a 80-year-old female with a past medical history significant for multiple myeloma on chemotherapy, dementia, schizophrenia, CKD, HTN, HLD and class 2 obesity, who presented to the ED due to altered mental status and weakness. Family members report that she has been refusing anything by mouth for the past 4 days. She has also had an associated cough. No fever, chills or vomiting. the pt is unable to provide history due to AMS and she lives at a SNF so her famliy members are unable to provide any additional history at this time. Her chemotherapy schedule as 14 days on 15 days off, she is currently in her off time. Review of Systems Review of Systems: Yes Unobtainable due to mental condition and Unobtainable due to mental status [facility] Medical History Chemotherapy-induced fatigue Chemotherapy adverse reaction CKD (chronic kidney disease) Sepsis Tubular adenoma of colon Bilateral hearing loss Schizophrenia Asthma GERD (gastroesophageal reflux disease) Hyperlipidemia Hypertension Family History Father Coronary artery disease High cholesterol Diabetes mellitus CVD (cardiovascular disease) Mother Alzheimer's disease Brother History of CVA (cerebrovascular accident) Stroke Sister History of CVA (cerebrovascular accident) Stroke Son No problems noted. Sister No problems noted. Sister No problems noted. Sister No problems noted. Sister No problems noted. Sister No problems noted. Brother No problems noted. Brother No problems noted. Brother No problems noted. Brother No problems noted. Brother No problems noted. Brother No problems noted. Other Hypertension Surgical History History of total hysterectomy History of lumpectomy Social History Household Members: Family Household Members Other:: granddaughter. Housing: Apartment Are you a primary animal care specialist to a significant other at home: No Do you presently have visiting nurse or other home services: No Alcohol intake: never Patient Tobacco Use Status: Former Tobacco user e-Cigarette/Vaping Use: Never Used Advance Directives: Yes Advance Directives on File: Yes Advance Directives Date on File: 12/15/20 Nutrition Risks: No Nutritional Risk service: No Current occupational status: retired Sexual orientation: Straight/Heterosexual Cognitive needs: No Hearing needs: No Vision needs: Yes Meds Allergies Allergy/AdvReac Type Severity Reaction Status Date / Time Penicillins Allergy Unknown Verified 07/01/25 21:17 Active Medications: Current Medications Potassium Chloride (Potassium Chloride/H20) 10 meq in 100 mls @ 100 mls/hr IV Q1H MAO Stop: 07/02/25 02:44 Last Admin: 07/01/25 23:54 Dose: 100 mls/hr Magnesium Sulfate (Magnesium Sulfate/H2o) 2 gm in 50 mls @ 25 mls/hr IV ONCE ONE Stop: 07/02/25 00:31 Last Admin: 07/01/25 22:52 Dose: 25 mls/hr Calcium Gluconate (Calcium Gluconate) 2 gm in 100 mls @ 50 mls/hr IV ONCE ONE Stop: 07/02/25 00:32 Last Admin: 07/01/25 22:49 Dose: 50 mls/hr Albumin Human (Kedbumin 25 %) 100 mls @ 100 mls/hr IV Q6H MAO Stop: 07/02/25 06:29 Last Admin: 07/02/25 00:03 Dose: 100 mls/hr Home Medications ?Medication ?Instructions ?Recorded ?Confirmed ?Last Taken ?Type albuterol sulfate 90 mcg/actuation 2 puff PO Q4H PRN Dyspnea 04/15/20 06/04/25 Unknown History aerosol inhaler loperamide 2 mg capsule 2 mg PO DAILY PRN Diarrhea 04/15/20 06/04/25 09/28/22 History (Anti-Diarrheal (loperamide)) sennosides 8.6 mg tablet (senna) 2 tab PO DAILY PRN Constipation 04/15/20 06/04/25 1 Day Ago History ~04/14/20 denosumab 120 mg/1.7 mL (70 mg/mL) 120 mg subcut Q8W 09/29/22 06/04/25 Unknown History subcutaneous solution lorazepam 1 mg tablet (Ativan) 1 mg PO DAILY PRN Anxiety 09/29/22 06/04/25 Unknown History bisacodyl 10 mg rectal suppository 10 mg MO DAILY PRN yes 12/12/24 06/04/25 Unknown History cholecalciferol (vitamin D3) 25 50 mcg PO 2XD 12/12/24 06/04/25 Unknown History mcg (1,000 unit) tablet Physical Exam Vital Signs and Narrative: Vital Signs: Last Vital Signs Temp 98.1 F 07/01/25 21:59 Pulse 90 07/01/25 23:43 Resp 24 H 07/01/25 23:43 BP 115/70 07/01/25 23:43 Pulse Ox 99 07/01/25 23:43 O2 Del Method Room Air 07/01/25 23:43 BMI result Body Mass Index 35.3 General: Alert unable to provide orientation, no acute distress Resp: rhonchorous throughout, no wheezing CVS: S1, S2, RRR GI: +BS, NT, no distention Skin: Warm, dry Neuro: Cranial nerves II-XII grossly intact bilaterally. Motor grossly intact bilaterally Extremities: No pitting edema BLE. LUE with mild edema. Psych: does not follow commands, confused Results Labs 07/01/25 21:33 07/01/25 22:07 Labs: Laboratory Results - last 24 hr 07/01/25 07/01/25 07/01/25 21:33 21:34 22:07 MCV 91.7 MCH 27.1 MCHC 29.5 L RDW 16.3 H Plt Count 306 D MPV 10.8 Immature Gran % (Auto) Cancelled Neut % (Auto) Cancelled Lymph % (Auto) Cancelled [place] % (Auto) Cancelled Eos % (Auto) Cancelled Baso % (Auto) Cancelled Lymph # (Auto) Cancelled [place] # (Auto) Cancelled Eos # (Auto) Cancelled Baso # (Auto) Cancelled Abs Immat Gran (auto) Cancelled Absolute Neuts (auto) Cancelled Absolute Nucleated RBC 0.000 Nucleated RBC % (auto) 0.0 Neutrophils % (Manual) 55 Band Neutrophils % 24 H Lymphocytes % (Manual) 15 L Monocytes % (Manual) 5 Basophils % (Manual) 1 Abs Neuts (Manual) 4.3 Lymphocytes # (Manual) 0.8 L Monocytes # (Manual) 0.3 Basophils # (Manual) 0.1 Platelet Estimate NORMAL Plt Morphology Comment NORMAL RBC Morphology NORMAL VBG pH VBG pCO2 VBG pO2 VBG HCO3 VBG O2 Saturation VBG Base Excess Anion Gap 5 L Estim Creat Clear Calc 62.8 Estimated GFR > 60 Random Glucose 70 Lactic Acid Calcium 4.3 L* D Magnesium 1.1 L* Total Bilirubin 0.1 AST 14 ALT < 6 Alkaline Phosphatase 49 Total Protein 3.3 L Albumin 1.6 L Influenza Type A (PCR) POSITIVE A Influenza Type B (PCR) NEGATIVE RSV RNA Qual (PCR) NEGATIVE SARS-CoV-2 RNA (RT-PCR) NEGATIVE 07/01/25 07/01/25 22:49 23:31 MCV MCH MCHC RDW Plt Count MPV Immature Gran % (Auto) Neut % (Auto) Lymph % (Auto) [place] % (Auto) Eos % (Auto) Baso % (Auto) Lymph # (Auto) [place] # (Auto) Eos # (Auto) Baso # (Auto) Abs Immat Gran (auto) Absolute Neuts (auto) Absolute Nucleated RBC Nucleated RBC % (auto) Neutrophils % (Manual) Band Neutrophils % Lymphocytes % (Manual) Monocytes % (Manual) Basophils % (Manual) Abs Neuts (Manual) Lymphocytes # (Manual) Monocytes # (Manual) Basophils # (Manual) Platelet Estimate Plt Morphology Comment RBC Morphology VBG pH 7.38 VBG pCO2 31 VBG pO2 66 VBG HCO3 18 L VBG O2 Saturation Not Reportable VBG Base Excess -5.3 Anion Gap Estim Creat Clear Calc Estimated GFR Random Glucose Lactic Acid 1.0 Calcium Magnesium Total Bilirubin AST ALT Alkaline Phosphatase Total Protein Albumin Influenza Type A (PCR) Influenza Type B (PCR) RSV RNA Qual (PCR) SARS-CoV-2 RNA (RT-PCR) Assessment and Plan (1) Viral sepsis: Status: Acute (2) Acute metabolic encephalopathy: Status: Acute (3) Influenza A: Status: Acute (4) Bronchitis: Status: Acute (5) Acute hypokalemia: Status: Acute (6) Hypomagnesemia: Status: Acute (7) Hypocalcemia: Status: Acute Plan Patient is a 80-year-old female with a past medical history significant for multiple myeloma on chemotherapy, dementia, schizophrenia, CKD, HTN, HLD and class 2 obesity, who presented to the ED due to altered mental status and weakness. Flu positive with bronchitis in the electrolyte abnormalities due to poor p.o. 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 Veloz Dementia - continue home meds Schizophrenia - continue home meds CKD3a - avoid nephrotoxins when possible HTN - normotensive, hold home medications for now HLD - continue home meds Class 2 obesity - BMI 35.3, weight loss encouraged Med rec pending DNR/DNI VTE prophylaxis: Heparin Patient with viral sepsis with acute metabolic encephalopathy secondary to flu with superimposed bronchitis, requiring admission for at least 2 midnight stay for IV antibiotics and monitoring. Quality Stroke Does the patient have a stroke diagnosis?: No VTE Prior VTE?: No VTE Risk Level:: Medical - moderate - high VTE Device Contraindication: Treatment Not Indicated VTE Drug Contraindication: N/A - Med Ordered
[2025-07-02 00:28] LABS: Appearance Urine Clear; Glucose Urine UA Negative (Negative); PH 5.0 (5.0-9.0); Specific Gravity - Urine >= 1.030 (1.005-1.025); UMIC TRIGGER UACC YES
[2025-07-02] MEDS: Potassium Chloride/H20 10 MEQ/100 ML PIGGYBACK 100 MEQ IV ×2 (01:08→02:45)
[2025-07-02] MEDS: vancomycin/NS 2,000 MG/500 ML PLAST..BAG 250 MG IV (02:48)
[2025-07-02 04:40] LABS: Hematocrit 28.6 % (37.0-47.0); Hemoglobin 8.5 g/dl (12.0-16.0); Mean Corpuscular HGB Conc 29.7 g/dl (31.0-35.0); Mean Corpuscular Hemoglobin 27.2 pg (27.0-33.0); Mean Corpuscular Volume 91.7 fL (80.0-98.0); NRBC Abs Auto 0.000 X10*3/uL (0.0-0.012); NRBC Pct Auto 0.0 /100WBC (0.0-0.2); Platelet Count 241 X10*3/uL (160-400); Red Blood Count 3.12 X10*6/uL (4.20-5.50); White Blood Count 4.7 X10*3/uL (4.8-10.8)
[2025-07-02 05:03] LABS: Band Neutrophils Percent 33 % (3-5); Lymphocytes Absolute Manual 0.4 X10*3/uL (1.2-4.9); Lymphocytes Percent Manual 8 % (20-40); Monocytes Absolute Manual 0.2 X10*3/uL (0.1-1.2); Monocytes Percent Manual 5 % (2-11); Neutrophils Absolute Manual 4.1 X10*3/uL (2.0-8.3); Neutrophils Percent Manual 54 % (45-73)
[2025-07-02 05:04] LABS: RBC Morphology NORMAL
--- NOTE | 2025-07-02 07:29 | PHA.PROG ---
Admission Date/Time: July 02, 2025 00:18 Indication: respiratory infection Weight in k kg Adjusted body weight in Kg: [place] body weight in Kg: Obesity Dosing Indication % IBW: Serum Creatinine - Last 168 Hours 07/01/25 22:07 Creatinine 0.70 Estimated CrCl and GFR - Last 168 Hours 07/01/25 22:07 Estim Creat Clear Calc 62.8 Estimated GFR > 60 Vancomycin Loading Dose: 2000 mg Current Vancomycin Dosing Regimen:1000 mg q 12 hours Vancomycin Monitoring using AUC goal of 400 - 600 range with trough as surrogate marker: predicted auc of 576 Date and Time for next Vancomycin Level to be drawn: 07/04 at 1200 Pharmacist Comments on Vancomycin Plan: will check trough after 3 doses, may need to decrease to daily Vancomycin dosing will take advantage of [employer] as a clinical decision support tool that uses Bayesian modeling to calculate individual patient's pharmacokinetic parameters and forecast the patient's drug concentration time course with the target goal AUC 24 range of 400 - 600 mg/L/hr.
[2025-07-02] MEDS: cefEPime HCl/D5W 2 GM/50 ML PIGGYBACK IV (07:32)
--- NOTE | 2025-07-02 07:37 | PC.NURSE ---
Assumed care of patient at 0700. Patient oriented to self baseline. Patient arouseable to voice. Noted to have productive cough. VSS on RA. IV abx hung. Laying in bed purewick in place, with no needs at this time.
--- NOTE | 2025-07-02 08:38 | HO.NURTONUR ---
Patient is a 80 year old DNR/DNI who presents from SNF with AMS and weakness. Patient has history of dementia and is oriented to self BSL. History also noted of multiple myeloma who is currently on chemotherapy scheduled 15 days off and 14 days on. Patient is on her off time right now. Patient tested positive for flu. Noted for strong productive junky cough. Duonebs scheduled BID. Patient received multiple IV electrolyte replacements here in ED for low K, calcium and Mag. Currently on IV abx and oral antiviral. LUE US ordered for swelling. Patient oriented to self, using purewick. Patient has 20g in R FA and L FA.
--- NOTE | 2025-07-02 09:00 | PC.NURSE ---
Patient with order for PO tamiflu. 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 Patient previously passed bedside swallow eval. Doctor okay to try PO tablet. Patient took PO medication with water and no coughing or choking noted.
[2025-07-02 09:39] LABS: Alanine Aminotransferase 15 U/L (0-31); Albumin Level 3.7 g/dL (3.5-5.0); Alkaline Phosphatase 72 U/L (39-117); Anion Gap 10 (12-20); Aspartate Amino Transferase 21 U/L (5-31); Blood Urea Nitrogen 23 mg/dL (9-16); Calcium 8.1 mg/dL (8.4-10.2); Carbon Dioxide 19 mmol/L (22-29); Chloride 118 mmol/L (96-108); Creatinine Clr Calc Pharmacy 43.1; Estimated Glomerular Filt Rate 52; Magnesium 2.4 mg/dL (1.6-2.6); Potassium 4.0 mmol/L (3.3-5.1); Sodium 143 mmol/L (135-145); Total Protein 6.2 g/dL (6.5-8.0)
--- NOTE | 2025-07-02 10:59 | PHA.MEDREC ---
Addendum entered by Don Jackman RPh 07/02/25 12:23: Called and spoke to Phyllis (one of patient's nurses at [facility]) who confirmed pt takes clozapine 25 mg bid @0900,1700 and 300 mg at bedtime. Patient's last doses were yesterday 07/01/25. MED REC REVIEWED BY [facility]. Original Note: Pharmacy Consult ? Medication Reconciliation Pharmacy has completed the medication reconciliation. Utilized list from [facility] at [place].
--- NOTE | 2025-07-02 11:45 | HO.PM.IMPN ---
Subjective Subjective Date of Service: 07/02/25 Interval History: feeling a bit stronger Physical Exam Exam: Exam: General: AO X 3, frail Resp: CTA bilateral, no accessory muscles used CVS: S1,S2,RRR GI: soft, non tender, non distended Neuro: motor grossly intact, alert Psych: appropriate affect, appropriate insight Vital Signs: Vital Signs: Last Vital Signs Temp 98.8 F 07/02/25 10:17 Pulse 82 07/02/25 10:17 Resp 20 07/02/25 10:17 BP 120/65 07/02/25 10:17 Pulse Ox 98 07/02/25 10:17 O2 Del Method Room Air 07/02/25 10:17 BMI result Body Mass Index 35.3 Objective Data Active Medications Acetaminophen (Acetaminophen 325 Mg Tablet) 975 mg PO Q6H PRN PRN Reason: Pain, Mild 1-3,fever,headache Albuterol/Ipratropium (Albuterol/Iprat 2.5/0.5mg 3 Ml Ampul.Neb) 3 ml INHALE Q4H PRN PRN Reason: Shortness of Breath/Wheezing Calcium Carbonate (Calcium Carbonate 750 Mg Tab.Chew) 750 mg PO Q4H PRN PRN Reason: Heartburn Heparin Sodium (Porcine) (Heparin Sodium,Porcine 5,000 Unit/Ml Vial) 5,000 unit SUBCUT Q12H [facility] Last Admin: 07/02/25 01:08 Dose: 5,000 unit Documented By: RULA Hydromorphone HCl (Hydromorphone Hcl 1 Mg/Ml Syringe) 0.5 mg IVPUSH Q4H PRN; Protocol PRN Reason: Pain, Severe (Pain Scale 7-10) Ceftriaxone Sodium 1 gm/ (Sodium Chloride) 50 mls @ 100 mls/hr IV Q24H [facility] Magnesium Hydroxide (Milk Of Magnesia 30 Ml Oral.Susp) 30 ml PO DAILY PRN PRN Reason: Constipation Melatonin (Melatonin 3 Mg Tablet) 6 mg PO BEDTIME PRN PRN Reason: Insomnia Methylprednisolone Sodium Succinate (Methylprednisolone Sod Succ 40 Mg/Ml Vial) 40 mg IVPUSH Q12H [facility] Last Admin: 07/02/25 08:58 Dose: 40 mg Documented By: VIDA Ondansetron HCl (Ondansetron Hcl 4 Mg/2 Ml Vial) 4 mg IVPUSH Q8H PRN PRN Reason: Nausea and Vomiting Oseltamivir Phosphate (Oseltamivir Phosphate 75 Mg Capsule) 75 mg PO Q12H [facility] Stop: 07/06/25 20:16 Last Admin: 07/02/25 08:58 Dose: 75 mg Documented By: VIDA Oxycodone HCl (Oxycodone Hcl Immed Release 5 Mg Tablet) 5 mg PO Q6H PRN PRN Reason: Pain, Moderate(Pain Scale 4-6) Sodium Chloride (0.9 % Sodium Chloride Flush 3 Ml Syringe) 3 ml IVFLUSH QSHIFT [facility] Last Admin: 07/02/25 07:32 Dose: Not Given Documented By: VIDA Non-Admin Reason: See Note Labs 07/02/25 04:25 07/02/25 08:47 Labs: Laboratory Results - last 24 hr 07/01/25 07/01/25 07/01/25 21:33 21:34 22:07 MCV 91.7 MCH 27.1 MCHC 29.5 L RDW 16.3 H Plt Count 306 D MPV 10.8 Immature Gran % (Auto) Cancelled Neut % (Auto) Cancelled Lymph % (Auto) Cancelled [place] % (Auto) Cancelled Eos % (Auto) Cancelled Baso % (Auto) Cancelled Lymph # (Auto) Cancelled [place] # (Auto) Cancelled Eos # (Auto) Cancelled Baso # (Auto) Cancelled Abs Immat Gran (auto) Cancelled Absolute Neuts (auto) Cancelled Absolute Nucleated RBC 0.000 Nucleated RBC % (auto) 0.0 Neutrophils % (Manual) 55 Band Neutrophils % 24 H Lymphocytes % (Manual) 15 L Monocytes % (Manual) 5 Basophils % (Manual) 1 Abs Neuts (Manual) 4.3 Lymphocytes # (Manual) 0.8 L Monocytes # (Manual) 0.3 Basophils # (Manual) 0.1 Platelet Estimate NORMAL Plt Morphology Comment NORMAL RBC Morphology NORMAL VBG pH VBG pCO2 VBG pO2 VBG HCO3 VBG O2 Saturation VBG Base Excess Anion Gap 5 L Estim Creat Clear Calc 62.8 Estimated GFR > 60 Random Glucose 70 Lactic Acid Calcium 4.3 L* D Magnesium 1.1 L* Total Bilirubin 0.1 Direct Bilirubin AST 14 ALT < 6 Alkaline Phosphatase 49 Total Protein 3.3 L Albumin 1.6 L Urine Color Urine Appearance Urine pH Ur Specific [place] Urine Protein Urine Glucose (UA) Urine Ketones Urine Blood Urine Nitrite Ur Leukocyte Esterase Urine RBC Urine WBC Ur Squamous Epith Cells Urine Bacteria Hyaline Casts Influenza Type A (PCR) POSITIVE A Influenza Type B (PCR) NEGATIVE RSV RNA Qual (PCR) NEGATIVE SARS-CoV-2 RNA (RT-PCR) NEGATIVE 07/01/25 07/01/25 07/02/25 22:49 23:31 00:19 MCV MCH MCHC RDW Plt Count MPV Immature Gran % (Auto) Neut % (Auto) Lymph % (Auto) [place] % (Auto) Eos % (Auto) Baso % (Auto) Lymph # (Auto) [place] # (Auto) Eos # (Auto) Baso # (Auto) Abs Immat Gran (auto) Absolute Neuts (auto) Absolute Nucleated RBC Nucleated RBC % (auto) Neutrophils % (Manual) Band Neutrophils % Lymphocytes % (Manual) Monocytes % (Manual) Basophils % (Manual) Abs Neuts (Manual) Lymphocytes # (Manual) Monocytes # (Manual) Basophils # (Manual) Platelet Estimate Plt Morphology Comment RBC Morphology VBG pH 7.38 VBG pCO2 31 VBG pO2 66 VBG HCO3 18 L VBG O2 Saturation Not Reportable VBG Base Excess -5.3 Anion Gap Estim Creat Clear Calc Estimated GFR Random Glucose Lactic Acid 1.0 Calcium Magnesium Total Bilirubin Direct Bilirubin AST ALT Alkaline Phosphatase Total Protein Albumin Urine Color Yellow Urine Appearance Clear Urine pH 5.0 Ur Specific [place] >= 1.030 H Urine Protein 30 (1+) H Urine Glucose (UA) Negative Urine Ketones Trace Urine Blood Trace H Urine Nitrite Negative Ur Leukocyte Esterase Negative Urine RBC 3-5 H Urine WBC 0-5 Ur Squamous Epith Cells 0-2 Urine Bacteria None Seen Hyaline Casts 3-5 Influenza Type A (PCR) Influenza Type B (PCR) RSV RNA Qual (PCR) SARS-CoV-2 RNA (RT-PCR) 07/02/25 07/02/25 04:25 08:47 MCV 91.7 MCH 27.2 MCHC 29.7 L RDW 16.2 H Plt Count 241 MPV 10.5 Immature Gran % (Auto) Cancelled Neut % (Auto) Cancelled Lymph % (Auto) Cancelled [place] % (Auto) Cancelled Eos % (Auto) Cancelled Baso % (Auto) Cancelled Lymph # (Auto) Cancelled [place] # (Auto) Cancelled Eos # (Auto) Cancelled Baso # (Auto) Cancelled Abs Immat Gran (auto) Cancelled Absolute Neuts (auto) Cancelled Absolute Nucleated RBC 0.000 Nucleated RBC % (auto) 0.0 Neutrophils % (Manual) 54 Band Neutrophils % 33 H Lymphocytes % (Manual) 8 L Monocytes % (Manual) 5 Basophils % (Manual) Abs Neuts (Manual) 4.1 Lymphocytes # (Manual) 0.4 L Monocytes # (Manual) 0.2 Basophils # (Manual) Platelet Estimate NORMAL Plt Morphology Comment NORMAL RBC Morphology NORMAL VBG pH VBG pCO2 VBG pO2 VBG HCO3 VBG O2 Saturation VBG Base Excess Anion Gap 10 L Estim Creat Clear Calc 43.1 Estimated GFR 52 Random Glucose 101 Lactic Acid Calcium 8.1 L D Magnesium 2.4 Total Bilirubin 0.3 Direct Bilirubin 0.2 AST 21 ALT 15 Alkaline Phosphatase 72 Total Protein 6.2 L Albumin 3.7 Urine Color Urine Appearance Urine pH Ur Specific [place] Urine Protein Urine Glucose (UA) Urine Ketones Urine Blood Urine Nitrite Ur Leukocyte Esterase Urine RBC Urine WBC Ur Squamous Epith Cells Urine Bacteria Hyaline Casts Influenza Type A (PCR) Influenza Type B (PCR) RSV RNA Qual (PCR) SARS-CoV-2 RNA (RT-PCR) Assessment and Plan (1) Schizophrenia: Status: Acute Plan 80F PMH MM on chemo, alzherimer dementia, htn, hld, COPD, CKD 3 presented with weakness and ams Viral sepsis and acute metabolic encephalopathy due to flu a complicated by COPD with acute decompensation As patient is hospitalized, start Tamiflu Superimposed bacterial pneumonia less likely, deescalate to ceftriaxone Steroids, DuoNebs Passed bedside swallow eval, formal EXECUTIVE DIRECTOR CONTRACT SHOP pending Acute metabolic acidosis, hypokalemia hypomagnesemia hypocalcemia Replaced, much improved Schizophrenia Continue Clozaril, sertraline CKD 3 Stable DVT prophylaxis with heparin subQ DNR/DNI reason for continued hospitalization: Awaiting defervescence, monitoring electrolytes Quality Stroke Does the patient have a stroke diagnosis?: No VTE Prior VTE?: No VTE Risk Level:: Medical - moderate - high VTE Device Contraindication: Treatment Not Indicated VTE Drug Contraindication: N/A - Med Ordered
[2025-07-02] MEDS: Albuterol/Iprat 2.5/0.5MG 3 ML AMPUL.NEB INHALE (16:46)
--- NOTE | 2025-07-02 17:02 | MHC.SL.SWA ---
Speech Pathologist Impression: Risk of Aspiration Due to: Dysphasia Diet Status: Liquid Consistency and Strategies for Safe Swallow: Liquid Intake Recommendation: Thin Liquid Intake Strategies: Solid Food Consistency: Dietary Recommendations: Grnd/Mech Altered (NDD2) Additional Modifications to Solid Foods: Pt tolerating chopped diet. Further ST intervention no longer warranted at this time. Please re-refer with any changes or if GROUP INSURANCE SPECIAL AGENT can be of further assistance. Oral Medication Intake: Whole with Puree Please contact the pharmacy regarding appropriate crushable or liquid drug formulations that are available whenever modified delivery is recommended. Compensatory Strategies and Precautions to be Taken for Safe Swallow: Supervision While Eating and Drinking for Safe Swallow: Direct Supervision (1:1) Foods to Avoid: Tough, difficult to chew solids. Swallowing Recommended Treatments: Recommendation for Speech: Inpatient Speech Therapy Comment: Patient presents with mild oral phase dysphagia, impulsivity with food and liquid, and compromised respiratory system due to flu, bronchitis. Recommend start diet of Ground Mechanical (NDD2) with THIN liquids, pills whole with puree. Patient will need supervision at meals and cueing to slow intake, given impulsivity and level of confusion. MD/RD notified of recommendation by secure text, RN in person. GROUP INSURANCE SPECIAL AGENT will follow for toleration, possible upgrade, 1-2X while inpatient. Frequency/Duration: Date Range for Service Req: Timeline to reassess: Spanish Lecturer Clinican/Clinical Fellow: No Supervisory Statement: I have reviewed and agree with the student/clinical fellow's documentation: N/A Speech Language Pathologist: Chasity Payton M.A., [facility]-GROUP INSURANCE SPECIAL AGENT
[2025-07-02] MEDS: 0.9 % Sodium Chloride Flush 3 ML SYRINGE IVFLUSH (21:28)
[2025-07-03 03:09] VITALS: BP 129/71; PULSE 75; RESP 16; TEMP 36.2; O2SAT 97
[2025-07-03 06:21] LABS: Hematocrit 29.3 % (37.0-47.0); Hemoglobin 9.0 g/dl (12.0-16.0); Mean Corpuscular HGB Conc 30.7 g/dl (31.0-35.0); Mean Corpuscular Hemoglobin 27.4 pg (27.0-33.0); Mean Corpuscular Volume 89.1 fL (80.0-98.0); NRBC Abs Auto 0.000 X10*3/uL (0.0-0.012); NRBC Pct Auto 0.0 /100WBC (0.0-0.2); Platelet Count 289 X10*3/uL (160-400); Red Blood Count 3.29 X10*6/uL (4.20-5.50); White Blood Count 3.4 X10*3/uL (4.8-10.8)
[2025-07-03 06:34] LABS: Anion Gap 11 (12-20); Blood Urea Nitrogen 21 mg/dL (9-16); Calcium 8.3 mg/dL (8.4-10.2); Carbon Dioxide 20 mmol/L (22-29); Chloride 113 mmol/L (96-108); Creatinine Clr Calc Pharmacy 44.4; Estimated Glomerular Filt Rate 54; Magnesium 2.1 mg/dL (1.6-2.6); Potassium 4.4 mmol/L (3.3-5.1); Sodium 140 mmol/L (135-145)
[2025-07-03 06:52] LABS: Atypical Lymphs Percent Manual 1 % (0-6); Band Neutrophils Percent 18 % (3-5); Lymphocytes Absolute Manual 0.2 X10*3/uL (1.2-4.9); Lymphocytes Percent Manual 7 % (20-40); Monocytes Absolute Manual 0.1 X10*3/uL (0.1-1.2); Monocytes Percent Manual 2 % (2-11); Neutrophils Absolute Manual 3.1 X10*3/uL (2.0-8.3); Neutrophils Percent Manual 72 % (45-73)
[2025-07-03 06:54] LABS: RBC Morphology NOTED
[2025-07-03 06:55] LABS: Burr Cells 1+ (0-2) /OIF; Ovalocytes 1+ (5-14) /OIF; Polychromasia 1+ (0-2) /OIF; Tear Drop Cells 1+ (0-2) /OIF
[2025-07-03 07:11] VITALS: BP 123/73; PULSE 73; RESP 18; TEMP 36; O2SAT 96
[2025-07-03] MEDS: 0.9 % Sodium Chloride Flush 3 ML SYRINGE IVFLUSH ×3 (07:40→21:34)
[2025-07-03] MEDS: Ferrous Sulfate 324 MG TABLET.DR PO (07:42)
[2025-07-03] MEDS: Aspirin Enteric Coated 81 MG TABLET.DR PO (07:42)
--- NOTE | 2025-07-03 09:04 | HO.PM.IMPN ---
Subjective Subjective Date of Service: 07/03/25 Interval History: feeling a bit stronger Physical Exam Exam: Exam: General: AO X 3, frail Resp: CTA bilateral, no accessory muscles used CVS: S1,S2,RRR GI: soft, non tender, non distended Neuro: motor grossly intact, alert Psych: appropriate affect, appropriate insight Vital Signs: Vital Signs: Last Vital Signs Temp 96.8 F 07/03/25 07:11 Pulse 73 07/03/25 07:11 Resp 18 07/03/25 07:11 BP 123/73 07/03/25 07:11 Pulse Ox 96 07/03/25 07:11 O2 Del Method Room Air 07/03/25 07:11 BMI result Body Mass Index 35.3 Objective Data Active Medications Acetaminophen (Acetaminophen 325 Mg Tablet) 975 mg PO Q6H PRN PRN Reason: Pain, Mild 1-3,fever,headache Albuterol/Ipratropium (Albuterol/Iprat 2.5/0.5mg 3 Ml Ampul.Neb) 3 ml INHALE Q4H PRN PRN Reason: Shortness of Breath/Wheezing Last Admin: 07/02/25 16:46 Dose: 3 ml Documented By: JORJE Allopurinol (Allopurinol 100 Mg Tablet) 100 mg PO DAILY [facility] Last Admin: 07/03/25 07:41 Dose: 100 mg Documented By: GAYATRI Aspirin (Aspirin Enteric Coated 81 Mg Tablet.) 81 mg PO DAILY [facility] Last Admin: 07/03/25 07:42 Dose: 81 mg Documented By: GAYATRI Calcium Carbonate (Calcium Carbonate 750 Mg Tab.Chew) 750 mg PO Q4H PRN PRN Reason: Heartburn Clozapine (Clozapine 100 Mg Tablet) 300 mg PO BEDTIME [facility] Last Admin: 07/02/25 21:28 Dose: 300 mg Documented By: CHATO Clozapine (Clozapine 25 Mg Tablet) 25 mg PO BID@0900,1700 [facility] Last Admin: 07/03/25 07:42 Dose: 25 mg Documented By: GAYATRI Ferrous Sulfate (Ferrous Sulfate 324 Mg Tablet.) 324 mg PO DAILY [facility] Last Admin: 07/03/25 07:42 Dose: 324 mg Documented By: GAYATRI Heparin Sodium (Porcine) (Heparin Sodium,Porcine 5,000 Unit/Ml Vial) 5,000 unit SUBCUT Q12H [facility] Last Admin: 07/02/25 23:55 Dose: 5,000 unit Documented By: CHATO Hydromorphone HCl (Hydromorphone Hcl 1 Mg/Ml Syringe) 0.5 mg IVPUSH Q4H PRN; Protocol PRN Reason: Pain, Severe (Pain Scale 7-10) Ceftriaxone Sodium 1 gm/ (Sodium Chloride) 50 mls @ 100 mls/hr IV Q24H [facility] Last Infusion: 07/03/25 08:21 Dose: Infused Documented By: GAYATRI Loratadine (Loratadine 10 Mg Tablet) 10 mg PO BEDTIME [facility] Last Admin: 07/02/25 21:28 Dose: 10 mg Documented By: CHATO Magnesium Hydroxide (Milk Of Magnesia 30 Ml Oral.Susp) 30 ml PO DAILY PRN PRN Reason: Constipation Melatonin (Melatonin 3 Mg Tablet) 6 mg PO BEDTIME PRN PRN Reason: Insomnia Methylprednisolone Sodium Succinate (Methylprednisolone Sod Succ 40 Mg/Ml Vial) 40 mg IVPUSH Q12H [facility] Last Admin: 07/03/25 07:40 Dose: 40 mg Documented By: GAYATRI Omeprazole (Omeprazole 20 Mg Capsule.Dr) 20 mg PO DAILY@0630 [facility] Last Admin: 07/03/25 05:51 Dose: 20 mg Documented By: CHATO Ondansetron HCl (Ondansetron Hcl 4 Mg/2 Ml Vial) 4 mg IVPUSH Q8H PRN PRN Reason: Nausea and Vomiting Oseltamivir Phosphate (Oseltamivir Phosphate 75 Mg Capsule) 75 mg PO Q12H [facility] Stop: 07/06/25 20:16 Last Admin: 07/03/25 07:41 Dose: 75 mg Documented By: GAYATRI Oxycodone HCl (Oxycodone Hcl Immed Release 5 Mg Tablet) 5 mg PO Q6H PRN PRN Reason: Pain, Moderate(Pain Scale 4-6) Sertraline HCl (Sertraline Hcl 50 Mg Tablet) 50 mg PO DAILY [facility] Last Admin: 07/03/25 07:42 Dose: 50 mg Documented By: GAYATRI Sodium Chloride (0.9 % Sodium Chloride Flush 3 Ml Syringe) 3 ml IVFLUSH QSHIFT [facility] Last Admin: 07/03/25 07:40 Dose: 3 ml Documented By: GAYATRI Labs 07/03/25 06:00 07/03/25 06:00 Labs: Laboratory Results - last 24 hr 07/02/25 07/02/25 07/03/25 05:27 08:47 06:00 MCV 89.1 MCH 27.4 MCHC 30.7 L RDW 15.9 Plt Count 289 MPV 10.7 Immature Gran % (Auto) Cancelled Neut % (Auto) Cancelled Lymph % (Auto) Cancelled [place] % (Auto) Cancelled Eos % (Auto) Cancelled Baso % (Auto) Cancelled Lymph # (Auto) Cancelled [place] # (Auto) Cancelled Eos # (Auto) Cancelled Baso # (Auto) Cancelled Abs Immat Gran (auto) Cancelled Absolute Neuts (auto) Cancelled Absolute Nucleated RBC 0.000 Nucleated RBC % (auto) 0.0 Neutrophils % (Manual) 72 Band Neutrophils % 18 H Lymphocytes % (Manual) 7 L Atypical Lymphs % (Man) 1 Monocytes % (Manual) 2 Abs Neuts (Manual) 3.1 Lymphocytes # (Manual) 0.2 L Monocytes # (Manual) 0.1 Platelet Estimate NORMAL Plt Morphology Comment NORMAL RBC Morphology NOTED Polychromasia 1+ (0-2) Tear Drop Cells 1+ (0-2) Ovalocytes 1+ (5-14) [place] Cells 1+ (0-2) Anion Gap Cancelled 10 L 11 L Estim Creat Clear Calc Cancelled 43.1 44.4 Estimated GFR Cancelled 52 54 Random Glucose Cancelled 101 125 H Calcium Cancelled 8.1 L D 8.3 L Magnesium Cancelled 2.4 2.1 Total Bilirubin 0.3 Direct Bilirubin 0.2 AST 21 ALT 15 Alkaline Phosphatase 72 Total Protein 6.2 L Albumin 3.7 Microbiology Microbiology Results: Microbiology 07/01/25 22:49 Blood Culture - Preliminary Blood - Venous No growth after 24 hours. 07/01/25 22:43 Blood Culture - Preliminary Blood - Venous No growth after 24 hours. Assessment and Plan (1) Schizophrenia: Status: Acute Plan 80F PMH MM on chemo, alzherimer dementia, htn, hld, COPD, CKD 3 presented with weakness and ams Viral sepsis and acute metabolic encephalopathy due to flu a complicated by COPD with acute decompensation As patient is hospitalized, start Tamiflu - day 08/20, end 07/06/25 Superimposed bacterial pneumonia less likely, deescalated to ceftriaxone Steroids, DuoNebs PT eval for deconditioning Acute metabolic acidosis, hypokalemia hypomagnesemia hypocalcemia Replaced, much improved Schizophrenia Continue Clozaril, sertraline CKD 3 Stable DVT prophylaxis with heparin subQ DNR/DNI reason for continued hospitalization: Awaiting defervescence, monitoring electrolytes Quality Stroke Does the patient have a stroke diagnosis?: No VTE Prior VTE?: No VTE Risk Level:: Medical - moderate - high VTE Device Contraindication: Treatment Not Indicated VTE Drug Contraindication: N/A - Med Ordered
--- NOTE | 2025-07-03 10:48 | MHC.CM.PN ---
PT FROM [facility] WHERE SHE WILL RETURN [facility] DCD DC PLAN RETURN TO [facility]
[2025-07-03 11:07] VITALS: BP 123/73; PULSE 73; O2SAT 96
[2025-07-03 16:17] VITALS: BP 136/76; PULSE 104; RESP 18; TEMP 36.1; O2SAT 97
--- NOTE | 2025-07-03 17:04 | MHC.SLORD ---
Speech Language Pathology Order Status: Patient not seen by [facility] this date. Per RN, no concerns and patient tolerating current diet. [facility] to continue to follow.
[2025-07-03 20:22] VITALS: BP 112/67; PULSE 82; RESP 18; TEMP 37; O2SAT 98
[2025-07-04 03:26] VITALS: BP 126/73; PULSE 78; RESP 18; TEMP 36.3; O2SAT 94
[2025-07-04 06:30] LABS: Hematocrit 31.7 % (37.0-47.0); Hemoglobin 9.8 g/dl (12.0-16.0); Mean Corpuscular HGB Conc 30.9 g/dl (31.0-35.0); Mean Corpuscular Hemoglobin 27.1 pg (27.0-33.0); Mean Corpuscular Volume 87.8 fL (80.0-98.0); NRBC Abs Auto 0.020 X10*3/uL (0.0-0.012); NRBC Pct Auto 0.3 /100WBC (0.0-0.2); Platelet Count 309 X10*3/uL (160-400); Red Blood Count 3.61 X10*6/uL (4.20-5.50); White Blood Count 7.0 X10*3/uL (4.8-10.8)
[2025-07-04 06:52] LABS: Anion Gap 13 (12-20); Blood Urea Nitrogen 25 mg/dL (9-16); Calcium 8.7 mg/dL (8.4-10.2); Carbon Dioxide 19 mmol/L (22-29); Chloride 113 mmol/L (96-108); Creatinine Clr Calc Pharmacy 38.5; Estimated Glomerular Filt Rate 46; Magnesium 2.1 mg/dL (1.6-2.6); Potassium 4.2 mmol/L (3.3-5.1); Sodium 141 mmol/L (135-145)
[2025-07-04 07:34] VITALS: BP 145/84; PULSE 78; RESP 18; TEMP 37.2; O2SAT 100
[2025-07-04 07:52] LABS: Band Neutrophils Percent 9 % (3-5); Lymphocytes Absolute Manual 0.4 X10*3/uL (1.2-4.9); Lymphocytes Percent Manual 6 % (20-40); Monocytes Absolute Manual 0.1 X10*3/uL (0.1-1.2); Monocytes Percent Manual 1 % (2-11); Neutrophils Absolute Manual 6.5 X10*3/uL (2.0-8.3); Neutrophils Percent Manual 84 % (45-73)
[2025-07-04 07:56] LABS: Burr Cells 1+ (0-2) /OIF; Large Platelet PRESENT; Polychromasia 1+ (0-2) /OIF; RBC Morphology NOTED
[2025-07-04] MEDS: 0.9 % Sodium Chloride Flush 3 ML SYRINGE IVFLUSH (08:19)
[2025-07-04] MEDS: Aspirin Enteric Coated 81 MG TABLET.DR PO (08:24)
[2025-07-04] MEDS: Ferrous Sulfate 324 MG TABLET.DR PO (08:24)
--- NOTE | 2025-07-04 09:37 | P.DS_ITS ---
DS: Providers Provider Date of admission: 07/02/25 00:18 Date of discharge: 07/04/25 Primary care physician: Damaso Abreu MD DS: Diagnosis Discharge Diagnosis (1) Schizophrenia: Status: Acute DS: Summary Hospital Course Hospital Course: from initial hpi: 80-year-old female with a past medical history significant for multiple myeloma on chemotherapy, dementia, schizophrenia, CKD, HTN, HLD and class 2 obesity, who presented to the ED due to altered mental status and weakness. Family members report that she has been refusing anything by mouth for the past 4 days. She has also had an associated cough. No fever, chills or vomiting. the pt is unable to provide history due to AMS and she lives at a SNF so her famliy members are unable to provide any additional history at this time. Her chemotherapy schedule as 14 days on 15 days off, she is currently in her off time. hospital course: Patient was admitted for viral sepsis and acute metabolic encephalopathy due to flu A complicated by COPD with acute decompensation. She was given Tamiflu and has 5 more doses left at time of discharge. For superimposed bacterial pneumonia was given ceftriaxone, antibiotics discontinued on discharge. Was treated with steroids and DuoNebs, prednisone 5 more days on discharge. For acute metabolic acidosis, hypokalemia, hypomagnesemia, hypocalcemia electrolytes were replaced and resolved. For schizophrenia was continued on Clozaril on sertraline, for CKD 3 remained stable. Patient is back to her baseline and she will be discharged home. Time Attestation Discharge Coordination Time (in mins): 33 Quality: Safe Use of Opioids Does Pt have an Active Cancer Diagnosis on the Problem List?: No Quality: Stroke Does the patient have a stroke diagnosis?: No Physical Exam Exam: Exam: General: AO X 3, frail Resp: CTA bilateral, no accessory muscles used CVS: S1,S2,RRR GI: soft, non tender, non distended Neuro: motor grossly intact, alert Psych: appropriate affect, appropriate insight Vital Signs: Vital Signs: Last Vital Signs Temp 98.9 F 07/04/25 07:34 Pulse 78 07/04/25 07:34 Resp 18 07/04/25 07:34 BP 145/84 H 07/04/25 07:34 Pulse Ox 100 07/04/25 07:34 O2 Del Method Room Air 07/04/25 07:34 BMI result Body Mass Index 35.3 DS: Data Data Completed and Pending Labs on day of discharge: Laboratory Results - last 24 hr 07/04/25 06:06 WBC 7.0 RBC 3.61 L Hgb 9.8 L Hct 31.7 L MCV 87.8 MCH 27.1 MCHC 30.9 L RDW 15.7 Plt Count 309 MPV 10.7 Immature Gran % (Auto) Cancelled Neut % (Auto) Cancelled Lymph % (Auto) Cancelled [place] % (Auto) Cancelled Eos % (Auto) Cancelled Baso % (Auto) Cancelled Lymph # (Auto) Cancelled [place] # (Auto) Cancelled Eos # (Auto) Cancelled Baso # (Auto) Cancelled Abs Immat Gran (auto) Cancelled Absolute Neuts (auto) Cancelled Absolute Nucleated RBC 0.020 H Nucleated RBC % (auto) 0.3 H Neutrophils % (Manual) 84 H Band Neutrophils % 9 H Lymphocytes % (Manual) 6 L Monocytes % (Manual) 1 L Abs Neuts (Manual) 6.5 Lymphocytes # (Manual) 0.4 L Monocytes # (Manual) 0.1 Platelet Estimate NORMAL Large Platelets PRESENT Plt Morphology Comment NOTED RBC Morphology NOTED Polychromasia 1+ (0-2) [place] Cells 1+ (0-2) Sodium 141 Potassium 4.2 Chloride 113 H Carbon Dioxide 19 L Anion Gap 13 BUN 25 H Creatinine 1.14 Estim Creat Clear Calc 38.5 Estimated GFR 46 Random Glucose 135 H Calcium 8.7 Magnesium 2.1 Preliminary micro results at discharge 07/01/25 22:49 Blood Culture - Preliminary Blood - Venous No growth after 48 hours. 07/01/25 22:43 Blood Culture - Preliminary Blood - Venous No growth after 48 hours. Discharge Plan Discharge Anticipated Discharge Date/Time: 07/04/25 09:12 Patient Disposition: Xfer SNF Discharge Diagnosis: flu Referrals: Damaso Abreu MD [Primary Care Provider, Internal Medicine] - 1 Week Discharge Medications: New oseltamivir [Tamiflu] 75 mg Capsule 75 mg PO Q12H Qty: 5 0RF prednisone 20 mg tablet 40 mg PO DAILY Qty: 10 0RF Continued allopurinol 100 mg tablet 100 mg PO DAILY Qty: 90 1RF ferrous sulfate 324 mg (65 mg iron) tablet,delayed release (DR/EC) 324 mg PO DAILY Qty: 90 1RF albuterol sulfate 90 mcg/actuation HFA aerosol inhaler 2 puff PO Q4H PRN (Reason: Dyspnea) loperamide [Anti-Diarrheal (loperamide)] 2 mg capsule 2 mg PO DAILY PRN (Reason: Diarrhea) sennosides [senna] 8.6 mg tablet 2 tab PO DAILY PRN (Reason: Constipation) aspirin 81 mg tablet,delayed release (DR/EC) 81 mg PO DAILY Qty: 90 0RF bisacodyl 10 mg Suppository 10 mg NE DAILY PRN (Reason: Constipation) cholecalciferol (vitamin D3) 25 mcg (1,000 unit) tablet 50 mcg PO DAILY ipratropium-albuterol 0.5 mg-3 mg(2.5 mg base)/3 mL solution for nebulization 3 ml INHALATION Q4H PRN (Reason: Shortness Of Breath Or Wheezing) omeprazole 20 mg capsule,delayed release(DR/EC) 20 mg PO DAILY@0630 acetaminophen 325 mg Tablet 650 mg PO Q4H PRN (Reason: Fever/Pain) ipratropium-albuterol 0.5 mg-3 mg(2.5 mg base)/3 mL solution for nebulization 3 ml INHALATION QID guaifenesin 100 mg/5 mL Liquid 200 mg PO Q6H PRN (Reason: Cough) magnesium hydroxide 400 mg/5 mL Suspension 30 ml PO DAILY PRN (Reason: Constipation) Rx Instructions: If no BM in 3 days. Saline Nasal 0.65 % Aerosol,[place] 1 spray INTRANASAL Q2H PRN (Reason: Congestion) sodium phosphates 19-7 gram/197 mL Enema 118 ml NE DAILY PRN (Reason: Constipation) naloxone [Narcan] 4 mg/actuation [place],Non-Aerosol 4 mg INTRANASAL Q3M PRN (Reason: Opioid Overdose) Rx Instructions: spray 1 dose into ONE nostril; alternate nostrils w each dose until help arrives clozapine 25 mg Tablet 25 mg PO BID@0900,1700 clozapine 100 mg Tablet 300 mg PO BEDTIME Qty: 0 0RF sertraline 50 mg Tablet 50 mg PO DAILY Qty: 0 0RF loratadine 10 mg Tablet 10 mg PO BEDTIME Qty: 0 0RF ondansetron 4 mg Tablet,Disintegrating 4 mg translingual Q4H PRN (Reason: Nausea And Vomiting) Qty: 0 0RF Discharge Orders: Discharge Order (Routine); Ordered 07/04/25 Ordered By: Ugo Hendricks Diet: Advance to usual diet Activity on Discharge: As tolerated Stand Alone Forms: Patient Portal Discharge page Print Language: Guamanian Care Plan Goals: recovery Health Concerns: flu Plan of Treatment: 5 more doses tamifly and prednisone Assessment: see above
--- NOTE | 2025-07-04 11:20 | MHC.CM.PN ---
PT CLEARED TO DC BACK TO LTC AT [facility] TRANSPORT BOOKED WITH [facility] FOR 1330 HOURS (ID# [id number]) GRANDDAUGHTER/ALT HCP, THADDEUS [phone], NOTIFIED VIA T/C
[2025-07-04 13:01] VITALS: BP 136/73; PULSE 76; RESP 18; TEMP 36.9; O2SAT 98
== END 2025-07-04 13:37 | disposition skilled nursing facility (03) | DRG 871 ==
LOC: HO.ED 07-02 00:12 → HO.EDOVER 07-02 00:21 → HO.S3 07-02 19:07
PROVIDERS: Admitting Provider Physician Assistant; Emergency Provider Emergency Medicine; PCP Family Medicine; Visit Provider Internal Medicine
DX: A41.89 Other specified sepsis (principal); J10.08 Influenza due to other identified influenza virus with other specified pneumonia; J15.9 Unspecified bacterial pneumonia; C90.00 Multiple myeloma not having achieved remission; J44.1 Chronic obstructive pulmonary disease with (acute) exacerbation; E87.21 Acute metabolic acidosis; J44.0 Chronic obstructive pulmonary disease with (acute) lower respiratory infection; J10.81 Influenza due to other identified influenza virus with encephalopathy; F03.90 Unspecified dementia, unspecified severity, without behavioral disturbance, psychotic disturbance, mood disturbance, and anxiety; F20.9 Schizophrenia, unspecified; E87.6 Hypokalemia; E83.42 Hypomagnesemia; E83.51 Hypocalcemia; I12.9 Hypertensive chronic kidney disease with stage 1 through stage 4 chronic kidney disease, or unspecified chronic kidney disease; E78.5 Hyperlipidemia, unspecified; E66.812 Obesity, class 2; Z66 Do not resuscitate; Z71.3 Dietary counseling and surveillance; Z68.35 Body mass index [BMI] 35.0-35.9, adult; Z87.891 Personal history of nicotine dependence; Z79.82 Long term (current) use of aspirin; Z79.899 Other long term (current) drug therapy
CPT/HCPCS: 36415; 71045; 80048; 80053; 80076; 81001; 82803; 83605; 83735; 85007; 85025; 85027; 87040; 87637; 92610; 93005; 93971; 94640; 97161; 99285; J0613; J0692; J0696; J1644; J2919; J3373; J3475; J3480; P9047

== ENCOUNTER → 2025-07-01 21:38 | Outpatient (BNV) | payer OTHER, SELFPAY | PROVIDERS: Emergency Provider Emergency Medicine; PCP Family Medicine; Visit Provider Radiology Diagnostic Radiology | DX: R05.9 Cough, unspecified (principal); R06.2 Wheezing | CPT/HCPCS: 71045 ==

== ENCOUNTER → 2025-07-01 22:36 | Outpatient (BNV) | payer OTHER, SELFPAY | PROVIDERS: Admitting Provider Physician Assistant; Emergency Provider Emergency Medicine; PCP Family Medicine; Visit Provider Internal Medicine Cardiovascular Disease | DX: I45.10 Unspecified right bundle-branch block (principal) | CPT/HCPCS: 93010 ==

== ENCOUNTER 2025-07-02 00:18 | Outpatient (BNV) | payer OTHER, SELFPAY | END 2025-07-02 09:54 | PROVIDERS: Admitting Provider Physician Assistant; Emergency Provider Emergency Medicine; PCP Family Medicine; Visit Provider Radiology Diagnostic Radiology | DX: R22.42 Localized swelling, mass and lump, left lower limb (principal) | CPT/HCPCS: 93971 ==

== ENCOUNTER → 2025-07-02 00:18 | Outpatient (BNV) | payer OTHER, SELFPAY | PROVIDERS: Admitting Provider Physician Assistant; Emergency Provider Emergency Medicine; PCP Family Medicine; Visit Provider Internal Medicine | DX: A41.89 Other specified sepsis (principal); F20.9 Schizophrenia, unspecified; B97.89 Other viral agents as the cause of diseases classified elsewhere; G93.41 Metabolic encephalopathy; J10.1 Influenza due to other identified influenza virus with other respiratory manifestations | CPT/HCPCS: 99222; 99232; 99499 ==